=== PATIENT | male | born 1945 | race Caucasian/White ===

== ENCOUNTER 2024-05-29 19:58 | Inpatient (IN) | payer MEDICARE, OTHER, SELFPAY ==
[2024-05-29 20:11] VITALS: PULSE 100
--- NOTE | 2024-05-29 20:13 | ECG_ITS ---
APPROVED REPORT Exam: Resting ECG HR:101 bpm ECG Measurements Heart Rate 101 AXES [place] 180 P 36 QRSd 139 QRS 267 QT 380 T 29 QTc 438 Conclusion SINUS TACHYCARDIA RIGHT AXIS DEVIATION [QRS AXIS > 100] RIGHT BUNDLE BRANCH BLOCK [120+ ms QRS DURATION, UPRIGHT V1, 40+ ms S IN I/aVL/V4/V5/V6] POSSIBLE ANTERIOR MYOCARDIAL INFARCTION , OF INDETERMINATE AGE [30 ms Q WAVE IN V3/V4, OR R < 0.2 mV IN V4] ABNORMAL ECG UNCONFIRMED REPORT Electronically signed by : Jayesh Nagel MD 05/30/2024 15:49:45
[2024-05-29 20:15] VITALS: BP 144/76; PULSE 100; RESP 17; O2SAT 97
[2024-05-29 20:27] VITALS: O2SAT 93
--- NOTE | 2024-05-29 21:01 | P.HP_ITS ---
<Statement entered by Gary Goyal MD - 06/03/24 14:22> I personally examined the patient and agree with the plan of care outlined by the ACQUISITION SPECIALIST. History of Present Illness *Admission Date: 05/29/24 *Reason for visit:: Chest pain while at rest *History of present illness: This is a 78-year-old male who has a past medical history sniffer hypertension, diabetes, and obesity who presents from [facility] due to symptoms consistent with unstable angina. Due to patient's symptoms, he presented to [facility] for evaluation. While at [facility], EKG was consistent with a right bundle branch block, sinus tachycardia, right axis deviation and was without and had some ST segment depression in the lateral leads. Patient's troponin was negative. Interventional cardiology was consulted and recommended transitioning to [facility] for left and right heart cath in the a.m. Due to these recommendations, patient has been admitted for further management. During my evaluation of the patient, patient states that he has been having this shortness of breath that would occur with chest pain while at rest and it was worse with exertion since April. Patient states his symptoms started initially on April 18. He reports having a 15 pound weight gain mostly in his abdomen, and was prescribed diuretics to manage. Patient did have some elevation in his creatinine due to losartan and hydrochlorothiazide and when he was prescribed Lasix he was encouraged to take it for 1 week, but once his creatinine started to elevate they encouraged him to take it every third day or as needed. Patient voices that he has chest pain across his chest and it is reproducible with palpation. He recently underwent provocative workup on Sunday and he is not clear of the results. He was informed that he may had not see a chemical engineering intern, yet he received a a call from the ID stating that he had no abnormalities on ischemic workup and was told he need to join an exercise team. It is worth mentioning that patient was unable to complete the provocative workup in its entirety. Patient also voices having some dizziness and upper extremity arm shaking when he has his shortness of breath. He is currently on a heart monitor. He is currently complaining of on chest pain that is reproducible with palpation. Currently, he is denying any PND, orthopnea, nausea, vomiting, fever, chills, rigors, or diarrhea. CT scan of the chest shows some mediastinal lymph nodes and bilateral nonobstructing renal calculi. [facility] Disclaimer: The information contained in this section may have been updated after the patient was seen, as this information can be updated by other users. Medical History (Updated 05/29/24 @ 21:16 by Ramana Breen APRN) Bilateral cataracts Hypertension CHF (congestive heart failure) Diabetes mellitus Social History Smoking Status: Never smoker alcohol intake: former current occupational status: employed Travel in the last 8 weeks: None household members: family housing: house marital status: Review of Systems Review of Systems Review of systems:: pertinent systems reviewed and negative unless documented below Constitutional Constitutional: Reports system reviewed and no additional complaints, except as documented Eyes Eyes: Reports system reviewed and no additional complaints, except as documented ENT Ears, Nose, Mouth, and Throat: Reports system reviewed and no additional complaints, except as documented *Cardiovascular Cardiovascular: Reports chest pain at rest, Reports chest pain with activity, Reports dyspnea, Reports dyspnea on exertion and Reports edema *Respiratory Respiratory: Reports dyspnea and Reports dyspnea on exertion *Gastrointestinal Gastrointestinal: Reports bloating *Genitourinary Genitourinary: Reports system reviewed and no additional complaints, except as documented *Musculoskeletal Musculoskeletal: Reports system reviewed and no additional complaints, except as documented Integumentary/Breasts Skin/Breast: Reports system reviewed and no additional complaints, except as documented *Neurologic Neurologic: Reports system reviewed and no additional complaints, except as documented Psychiatric Psychiatric: Reports system reviewed and no additional complaints, except as documented Endocrine Endocrine: Reports system reviewed and no additional complaints, except as docum ented Hematologic/Lymphatic Hematologic/Lymphatic: Reports system reviewed and no additional complaints, except as documented Allergic/Immunologic Allergic/Immunologic: Reports system reviewed and no additional complaints, except as documented Meds Home Medications and Allergies Home Medications ?Medication ?Instructions ?Recorded ?Confirmed ?Type amlodipine 2.5 mg tablet (Norvasc) 2.5 mg PO DAILY 05/29/24 05/29/24 History aspirin 81 mg tablet 81 mg PO DAILY 05/29/24 05/29/24 History furosemide 20 mg tablet (Lasix) 20 mg PO DIRECTED 05/29/24 05/29/24 History furosemide 20 mg tablet (Lasix) 20 mg PO DAILY PRN Edema 05/29/24 05/29/24 History gabapentin 600 mg tablet 600 mg PO HS 05/29/24 05/29/24 History losartan 100 mg tablet 100 mg PO DAILY 05/29/24 05/29/24 History magnesium 250 mg tablet 250 mg PO DAILY 05/29/24 05/29/24 History metformin 1,000 mg tablet 1,000 mg PO BID 05/29/24 05/29/24 History vit C 50 mg-E 15 unit-zinc cit 4.5 1 tab PO BID eye health 05/29/24 05/29/24 History mg-lutein 2.5 [facility] New Prescriptions to Start Prescriptions: Allergies Allergy/AdvReac Type Severity Reaction Status Date / Time No Known Allergies Allergy Unverified 04/03/17 14:16 Exam Constitutional Constitutional: no acute distress and obese *Routine HEENT Exam Head: Present normocephalic and atraumatic Eye: Present EOMI, PERRL and normal accommodation ENT: Present mucous membranes moist *Routine Neck Exam Neck: Present supple and full ROM Routine Chest/Breast/Axilla Exam Chest wall: Present tenderness Comments: Holter monitor *Routine Respiratory Exam Respiratory: Present normal respiratory effort, able to speak in complete sentences and symmetric chest movement *Routine Cardiovascular Exam Cardiovascular: Present RRR, Normal S1, Normal S2 and tachycardia *Routine Abdominal Exam Abdominal: Present soft, distended and obese *Routine Rectal Exam Rectal:: deferred *Routine Genitalia Exam Genitalia:: deferred *Routine Extremities Exam Extremities: Present full ROM, pulses intact and normal capillary refill Routine Back/Spine/Pelvis Exam Back/Spine: Present full ROM *Routine Skin Exam Skin: Present intact, dry and warm *Routine Neurological Exam Neurological: Present alert, oriented X3, CN II-XII intact and normal speech Routine Psychiatric Exam Psychiatric: Present normal affect, normal thought process, cooperative, good insight and good judgment H&P: Result Impressions 78-year-old male who has known hypertension and diabetes with several risk factors for acute coronary syndrome who presents with unstable angina. Patient recently underwent provocative workup and was unable to complete. Results are inconclusive from patient's perspective. He was encouraged to join a exercise team. He presents to us in fairly stable condition and will await left heart cath in the a.m. Assessment and Plan *Assessment and plan (1) Unstable angina: Status: Acute Category: Medical Code(s): I20.0 - Unstable angina Plan Assessment: Unstable angina -Consult cardiology -Will make patient n.p.o. after midnight -Obtain records for provocative workup from ID -Will consider nitro for any additional chest discomfort or anginal pain Plan: Admit patient to the stepdown unit on telemetry Up with assistance Saline lock Vital signs every 4 hours Cardiac/1800 ADA diet Obtain CMP, CBC, magnesium, lactic, PT/INR, CEA now CBC/BMP daily Obtain lipid panel in a.m. Will trend troponins every 6 hours 5000 units of heparin subcu 3 times daily 5 mg of [place] p.o. every 4 hours for moderate pain Sliding scale insulin before meals and at bedtime mild scale coverage 2 mg morphine IV push every 2 hours as needed for severe pain 4 mg of Zofran IV push to 8 hours. Nausea from Full code I will discuss this case with attending physician Dr. Goyal and the look for tomorrow put
[2024-05-29 21:44] LABS: Basophils % 0.2 % (0.1-2.0); Hematocrit 44.1 % (42.0-52.0); Lymphocytes # 0.5 K/mm3 (0.7-4.5); Lymphocytes % 8.7 % (10-50); Mean Corpuscular Hemoglobin 30.5 pg (27.0-31.2); Mean Corpuscular Volume 89.6 fl (80-94); Mean Platelet Volume 10.7 fl (7.4-10.4); Monocytes % 0.7 % (1.7-9.3); Platelet Count 215 K/mm3 (142-424); Red Blood Count 4.92 M/mm3 (4.60-6.20); Red Cell Distribution Width 14.9 % (11.5-17.5); White Blood Count 5.5 K/mm3 (4.8-10.8)
[2024-05-29 21:48] LABS: Albumin Level 4.5 g/dl (3.5-5.0); Chloride 103 mmol/L (98-107); Sodium 140 mmol/L (136-145)
[2024-05-29 21:51] LABS: Alanine Aminotransferase 29 U/L (12-78); Albumin/Globulin Ratio 1.9 (1.1-1.8); Alkaline Phosphatase 68 U/L (38-126); Aspartate Amino Transferase 35 U/L (17-59); Bilirubin,Total 1.4 mg/dl (0.2-1.3); Blood Urea Nitrogen 17 mg/dl (9-20); Calcium 9.3 mg/dl (8.4-10.2); Carbon Dioxide 24 mmol/L (22.0-30.0); Estimated Glomerular Filt Rate 53 ml/min (>60); GFR (African American) 64 ML/MIN (>60); Globulin 2.4 g/dL (1.3-3.2); Glucose 196 mg/dl (74-100); Total Protein,Serum 6.9 g/dl (6.3-8.2)
[2024-05-29 21:52] LABS: Lactic Acid 1.5 mmol/L (0.7-2.1); Magnesium 1.6 mg/dl (1.6-2.3)
[2024-05-29 21:53] VITALS: BMI 30.4
[2024-05-29 21:54] LABS: MANUAL DIFFERENTIAL MANUAL DIFFERENTIAL (MANUAL DIFF)
[2024-05-29 21:56] LABS: Creatinine Clearance Estimated 63 mL/min (50-200)
[2024-05-29 21:59] LABS: INR 0.99 (0.9-1.1); Prothrombin Time 10.9 seconds (9.2-12.1)
[2024-05-29 22:00] VITALS: BP 126/77; PULSE 106; RESP 20; O2SAT 92
[2024-05-29 22:20] LABS: Lymphocytes % 11 % (10-50); Neutrophils % 88 % (42-76); RBC Morphology Normal; Total Cells Counted 100
[2024-05-29 22:21] LABS: Platelet Estimate Normal
[2024-05-29] MEDS: humaLOG 100 UNITS/ML 10ML VIAL (SSI) SUBCUT (22:26)
[2024-05-29] MEDS: GABAPENTIN 600MG TABLET 600 MG PO (22:27)
[2024-05-29] MEDS: HEPARIN SODIUM 5,000 UNIT/ML VIAL 5000 UNIT SUBCUT (22:27)
[2024-05-30] VITALS (26 sets, daily range): BP systolic 109–131; BP diastolic 46–75; PULSE 81–110; RESP 14–22; TEMP 36.4–36.7; O2SAT 85–100; BMI 30.1
[2024-05-30 00:49] LABS: Troponin I < 0.01 ng/ml (0.00-0.034)
--- NOTE | 2024-05-30 00:50 | PC.NURSE ---
Pt states they wear a CPAP at home while sleeping. Pt does not have CPAP with him and does not want to wear ours tonight. Pt noted to drop to 85 while asleep. Pt placed on 2 L nc. Pt to ask family to bring cpap if here tomorrow night.
[2024-05-30] MEDS: humaLOG 100 UNITS/ML 10ML VIAL (SSI) SUBCUT (06:25)
[2024-05-30 06:30] LABS: POC Glucose,Bedside 204 (70-110)
--- NOTE | 2024-05-30 06:34 | PC.NURSE ---
Pt A/O x4. Pt has not voiced any complaints to staff throughout shift. Pt remained on 2L nc while asleep, tolerating well with sat >90%. Lungs sounds clear, diminished. NSR on telemetry. Abdomen round, soft, non-tender. BM sounds active x4. Pt able to use urinal independently. Pt voided total of 750ml throughout shift. Urine clear and light yellow. Pt has been NPO since midnight. Call light within reach.
[2024-05-30 07:04] LABS: Basophils % 0.2 % (0.1-2.0); Hematocrit 40.8 % (42.0-52.0); Hemoglobin 13.5 g/dL (14.1-18.0); Lymphocytes # 0.7 K/mm3 (0.7-4.5); Lymphocytes % 11.9 % (10-50); Mean Corpuscular HGB Conc 33.1 g/dL (31.8-35.4); Mean Corpuscular Hemoglobin 29.6 pg (27.0-31.2); Mean Corpuscular Volume 89.5 fl (80-94); Mean Platelet Volume 11.7 fl (7.4-10.4); Monocytes # 0.1 K/mm3 (0.1-1.0); Monocytes % 2.4 % (1.7-9.3); Neutrophils % 85.2 % (37.0-80.0); Platelet Count 183 K/mm3 (142-424); Red Blood Count 4.56 M/mm3 (4.60-6.20); Red Cell Distribution Width 14.6 % (11.5-17.5); White Blood Count 5.9 K/mm3 (4.8-10.8)
[2024-05-30 07:49] LABS: Chloride 105 mmol/L (98-107); Potassium 4.4 mmoL/L (3.5-5.1); Sodium 137 mmol/L (136-145)
[2024-05-30 07:52] LABS: Anion Gap 11.4 mEq/L (5-15); Blood Urea Nitrogen 21 mg/dl (9-20); Calcium 9.1 mg/dl (8.4-10.2); Carbon Dioxide 25 mmol/L (22.0-30.0); Chol/HDL Ratio 3.1 (1-3.5); Cholesterol 148 mg/dl (140-200); Creatinine Clearance Estimated 63 mL/min (50-200); Estimated Glomerular Filt Rate 53 ml/min (>60); GFR (African American) 64 ML/MIN (>60); Glucose 206 mg/dl (74-100); HDL Cholesterol 47 mg/dl (40-60); Triglycerides 58 mg/dl (30-150); VLDL Cholesterol 12 mg/dL (0-40)
[2024-05-30 08:03] LABS: Direct LDL Cholesterol 74.51 mg/dL (100-129)
[2024-05-30 08:10] LABS: Troponin I < 0.01 ng/ml (0.00-0.034)
--- NOTE | 2024-05-30 08:23 | IR_ITS ---
APPROVED REPORT Patient Location: Inpatient Furnace Repair Mechanic: Syed Johansen, RT (R) PROCEDURES Right heart catheterization Left heart catheterization Left ventriculogram Selective coronary angiogram Intravascular ultrasound to the proximal LAD Drug-eluting stent deployment to the proximal LAD INDICATION Coronary artery disease, Unstable angina, Angiographic ambiguity in the proximal LAD, Pulmonary hypertension Informed consent was obtained prior to the procedure. COMPLICATIONS None Estimated Blood Loss: Less than 10 mls TECHNIQUE One percent lidocaine used to anesthetize the right anterior aspect of the wrist. The right radial artery was accessed via the Seldinger technique. A 6 Armenian sheath was placed in the right radial artery. 2.5 mg of Verapamil, 800 mcg of nitroglycerin, 1mg Lidocaine and 5000 U Heparin were given through the arterial sheath. The 6 Armenian JL 3 guide catheter catheter was also used to perform left heart catheterization, left ventriculogram and selective coronary angiogram. At the end of the diagnostic angiogram therapeutic heparin was administered giving a therapeutic ACT and the guide catheters placed in the left main artery with wire down the LAD. There was angiographic ambiguity therefore intravascular ultrasound probe was advanced which demonstrated severe and heavy plaque in the proximal LAD creating an MLA of 2.6 mm???. Because of this a 3 mm x 18 mm José Manuel frontier stent was deployed at 20 erwin in the proximal LAD reducing the stenosis to 0%. JAYDA-3 flow was present before and after the procedure. Following this One percent lidocaine was used to anesthetize the right anterior aspect of the neck. A event decorator and designer needle was used to identify the right internal jugular vein. Following this a larger cannulation needle was used to cannulate the right internal jugular vein and a wire was passed into the vein. Prior to the 7 Armenian sheath being inserted the wire was confirmed under fluoroscopic guidance to be in the inferior vena cava. A 7 Armenian sheath was introduced and a [place]-Nga catheter was floated using hemodynamic waveforms in the pulmonary artery, right ventricle , and right atrium. Saturations were obtained in the pulmonary artery and the right atrium. At the end of the procedure the patient was transferred to the postop holding area in stable condition for sheath removal. ANGIOGRAPHIC RESULTS The left main artery Normal The left anterior descending artery Has proximal concentric 90% stenosis by IVUS criteria The circumflex artery Nondominant with diffuse 10 to 20% luminal regularities The right coronary artery Dominant normal The KERR ventriculogram reveals Normal 65% The left ventricular end-diastolic pressure 15 mmHg Right atrial pressure 5 mmHg Pulmonary artery pressure 42/15 mmHg Pulmonary occlusion pressure 15 mmHg Right atrial saturation 81% Pulmonary saturation 81% Aortic saturation 94% Hemoglobin hemoglobin 15 Cardiac output cardiac output 10 L/min Cardiac index 4.7 IMPRESSION Severe disease in the proximal LAD with successful stenting reducing lesion to 0% with 1 drug-eluting stent moderate pulmonary hypertension Normal ejection fraction Moderate pulmonary hypertension PLAN 1. Plavix and aspirin 2. Start patient on diuretics 3. Recommend pulmonology consultation 4. LDL less than 55 to achieve that high intensity statin 5. I am not entirely convinced this is the proximal LAD lesion was etiology for patient's symptoms. This does not explain the moderate pulmonary hypertension 6. Recommend sleep study and further workup per pulmonology Electronically signed by : Norberto Wray MD 05/30/2024 11:14:20
--- NOTE | 2024-05-30 08:35 | HMH.PHAINT1 ---
Pharmacy Intervention Comments: VERIFIED HOME MEDICATION LIST [facility]
[2024-05-30] MEDS: HEPARIN SODIUM 5,000 UNIT/ML VIAL 5000 UNIT SUBCUT ×2 (09:03→13:33)
[2024-05-30] MEDS: ASPIRIN EC 81MG TABLET 81 MG PO (09:03)
[2024-05-30 09:10] LABS: Hemoglobin A1C 6.4 % (4.0-6.0)
[2024-05-30 09:14] LABS: Thyroid Stimulating Hormone 0.69 uIU/mL (0.465-4.68)
--- NOTE | 2024-05-30 09:22 | EXP.CARD.CON ---
History of Present Illness History of Present Illness Consult date: 05/30/24 Requesting physician: Ramana Breen Consult reason: shortness of breath Chief complaint: weakness and SOA History of present illness: 78-year-old white male without known cardiovascular disease transferred to this facility from [facility] for heart cath. Patient's daughter is a nurse and is bedside and assists with history. Patient typically very active and able to work 10 or 12 hours/day without symptoms. He was diagnosed with diabetes but quickly was able to control his A1c from 10 down to 6. He takes losartan for renal protection but states blood pressure has typically been well-controlled. On April 16 he woke up extremely fatigued and now struggles to walk 10 or 20 feet without shortness of breath and fatigue. He has had some mild lower extremity edema, dizziness, blurry vision, blood pressure variability. He tried seeing his physician at the OR but states they just been ordering tests and have not seen him for evaluation. He did have a stress test which is available in his chart for review that shows probably normal stress test . An echo has not been completed. Patient denies any recent trauma or acute illness prior to symptom onset. Yesterday his symptoms worsened and he called PCP who advised to present to the emergency room. On arrival to ER in [facility] symptoms were felt consistent with unstable angina so Dr. Wray was called and agreed to accept patient in transfer for left and right heart cath. proBNP, troponin, D-dimer all within normal limits. EKG shows RBBB. CT chest abdomen pelvis with finding of mediastinal lymphadenopathy but no identified masses. The largest lymph nodes are 3.9 x 2.3 and 2 x 2.6 right paratracheal region. [facility] Disclaimer: The information contained in this section may have been updated after the patient was seen, as this information can be updated by other users. Medical History Bilateral cataracts Hypertension CHF (congestive heart failure) Diabetes mellitus Social History Smoking Status: Never smoker alcohol intake: former current occupational status: employed Travel in the last 8 weeks: None household members: family housing: house marital status: Have you lived/traveled outside [place] in past 30 days?: No Contact w/someone who lives/traveled outside US past 30 days?: No Exposure to someone with infectious disease in past 14 days?: No Do you have a fever (greater than 100.4 F or 38 C)?: No Have you tested positive for COVID-19: No Exposed to someone with COVID-19 in past 14 days?: No Do you have a sore throat?: No Do you have a cough?: No Do you have any weakness?: No Are you experiencing any nausea/vomitting?: No Do you have any diarrhea?: No Are you experiencing any unusual bleeding?: No Do you have any muscle aches/pain?: No Do you have any abdominal pain?: No Are you experiencing loss of taste or smell?: No Review of Systems Constitutional Constitutional: Reports fatigue, Denies fever(s), Reports lethargy, Reports malaise and Reports weakness Eyes Eyes: Reports blurry vision and Denies loss of vision ENT Ears, Nose, Mouth, and Throat: Denies hearing loss *Cardiovascular Cardiovascular: Denies chest pain, Reports dyspnea and Reports leg edema *Respiratory Respiratory: Denies cough and Reports dyspnea *Gastrointestinal Gastrointestinal: Denies change in stool character, Denies nausea and Denies vomiting *Genitourinary Genitourinary: Denies difficulty urinating *Musculoskeletal Musculoskeletal: Denies muscle weakness Integumentary/Breasts Skin/Breast: Denies changing lesions *Neurologic Neurologic: Reports system reviewed and no additional complaints, except as documented, Denies loss of vision and Reports weakness Endocrine Endocrine: Reports fatigue Exam Data for Last 24 hours Vital signs and Labs for Last 24 Hours: Temp Pulse Resp BP Pulse Ox O2 Del Method O2 Flow Rate 97.6 F 100 H 18 128/75 93 L Room Air 2 05/30/24 08:39 05/30/24 08:39 05/30/24 08:39 05/30/24 08:39 05/30/24 08:39 05/30/24 08:39 05/30/24 06:28 Laboratory Results - last 24 hr 05/29/24 21:34: WBC 5.5, RBC 4.92, Hgb 15.0, Hct 44.1, MCV 89.6, MCH 30.5, MCHC 34.0, RDW 14.9, Plt Count 215, MPV 10.7 H, Neut % (Auto) 90.0 H, Lymph % (Auto) 8.7 L, Saunders % (Auto) 0.7 L, Eos % (Auto) 0.0 L, Baso % (Auto) 0.2, Neut # (Auto) 5.0, Lymph # (Auto) 0.5 L, Saunders # (Auto) 0.0 L, Eos # (Auto) 0.0, Baso # (Auto) 0.0, Total Counted 100, Neutrophils % (Manual) 88 H, Band Neutrophils % 1.0, Lymphocytes % (Manual) 11, Platelet Estimate Normal, RBC Morphology Normal, PT 10.9, INR 0.99, Sodium 140, Potassium 4.0, Chloride 103, Carbon Dioxide 24, Anion Gap 17.0 H, BUN 17, Creatinine 1.30 H, Estimated Creat Clear 63, Estimated GFR 53 L, Est GFR ( Amer) 64, Glucose 196 H, Lactate 1.5, Calcium 9.3, Magnesium 1.6, Total Bilirubin 1.4 H, AST 35, ALT 29, Alkaline Phosphatase 68, Total Protein 6.9, Albumin 4.5, Globulin 2.4, Albumin/Globulin Ratio 1.9 H 05/30/24 00:03: Troponin I < 0.01 05/30/24 05:51: WBC 5.9, RBC 4.56 L, Hgb 13.5 L, Hct 40.8 L, MCV 89.5, MCH 29.6, MCHC 33.1, RDW 14.6, Plt Count 183, MPV 11.7 H, Neut % (Auto) 85.2 H, Lymph % (Auto) 11.9, Saunders % (Auto) 2.4, Eos % (Auto) 0.0 L, Baso % (Auto) 0.2, Neut # (Auto) 5.0, Lymph # (Auto) 0.7, Saunders # (Auto) 0.1, Eos # (Auto) 0.0, Baso # (Auto) 0.0, Sodium 137, Potassium 4.4, Chloride 105, Carbon Dioxide 25, Anion Gap 11.4, BUN 21 H, Creatinine 1.30 H, Estimated Creat Clear 63, Estimated GFR 53 L, Est GFR ( Amer) 64, Glucose 206 H, Hemoglobin A1c 6.4 H, Calcium 9.1, Troponin I < 0.01, Triglycerides 58, Cholesterol 148, LDL Cholesterol Direct 74.51 L, VLDL Cholesterol 12, HDL Cholesterol 47, Cholesterol/HDL Ratio 3.1 05/30/24 06:21: POC Glucose 204 H I & O for Last 24 hours: Intake & Output 05/27/24 05/28/24 05/29/24 05/30/24 23:59 23:59 23:59 23:59 Output Total 300 / 300 450 / 450 Balance -300 / -300 -450 / -450 Weight 212 lb 8 oz Constitutional Constitutional: no acute distress and cooperative *Routine HEENT Exam Eye: Present PERRL *Routine Respiratory Exam Respiratory: Present CTA bilaterally; Absent accessory muscle use, wheezes or crackles *Routine Cardiovascular Exam Cardiovascular: Present RRR, Normal S1 and Normal S2; Absent murmur, gallop or rubs *Routine Abdominal Exam Abdominal: Present soft; Absent tenderness Comments: mildly distended *Routine Extremities Exam Extremities: Present pulses intact; Absent cyanosis or edema *Routine Skin Exam Skin: Present intact; Absent erythema or wounds *Routine Neurological Exam Neurological: Present alert and oriented X3 Routine Psychiatric Exam Psychiatric: Present cooperative Meds Home Medications and Allergies Home Medications ?Medication ?Instructions ?Recorded ?Confirmed ?Type amlodipine 2.5 mg tablet (Norvasc) 2.5 mg PO DAILY 05/29/24 05/29/24 History aspirin 81 mg tablet 81 mg PO DAILY 05/29/24 05/29/24 History furosemide 20 mg tablet (Lasix) 20 mg PO DIRECTED 05/29/24 05/30/24 History furosemide 20 mg tablet (Lasix) 20 mg PO DAILY PRN Edema 05/29/24 05/30/24 History gabapentin 600 mg tablet 600 mg PO HS 05/29/24 05/29/24 History losartan 100 mg tablet 100 mg PO DAILY 05/29/24 05/29/24 History metformin 1,000 mg tablet 1,000 mg PO BID 05/29/24 05/29/24 History pioglitazone 30 mg tablet (Actos) 30 mg PO DAILY 05/29/24 05/30/24 History vit C 50 mg-E 15 unit-zinc cit 4.5 1 tab PO BID eye health 05/29/24 05/29/24 History mg-lutein 2.5 mg-zeaxan chew tablet ([facility]) cholecalciferol (vitamin D3) 25 100 mcg PO DAILY 05/30/24 05/30/24 History mcg (1,000 unit) tablet (Vitamin D3) cyanocobalamin (vitamin B-12) 1,000 mcg PO DAILY 05/30/24 05/30/24 History 1,000 mcg tablet (Vitamin B-12) fluticasone propionate 50 2 spray intranasal DAILY 05/30/24 05/30/24 History mcg/actuation nasal spray,suspension gabapentin 300 mg capsule 300 mg PO 09,12 05/30/24 05/30/24 History lidocaine 5 % topical patch 2 patch topical DAILY PRN Pain 05/30/24 05/30/24 History (Scale Score 4-6) loratadine 10 mg tablet 10 mg PO DAILY 05/30/24 05/30/24 History magnesium oxide 420 mg tablet 420 mg PO BID 05/30/24 05/30/24 History mirtazapine 15 mg tablet (Remeron) 7.5 mg PO HS 05/30/24 05/30/24 History prazosin 1 mg capsule 1 mg PO HS 05/30/24 05/30/24 History prazosin 5 mg capsule 5 mg PO HS 05/30/24 05/30/24 History sertraline 100 mg tablet 150 mg PO DAILY 05/30/24 05/30/24 History New Prescriptions to Start Prescriptions: Allergies Allergy/AdvReac Type Severity Reaction Status Date / Time No Known Allergies Allergy Unverified 04/03/17 14:16 Assessment and Plan *Assessment and plan (1) Unstable angina: Status: Acute Category: Medical Code(s): I20.0 - Unstable angina (2) Fatigue: Status: Acute Category: Medical Code(s): R53.83 - Other fatigue Plan Unstable Angina - atypical presentation but given his risk factors including age, BP DM, family history and the severity and chronicity of symptoms, a RHC and LHC seem prudent to r/o CV etiology of symptoms - discussed frankly with patient and they would both like to proceed with LHC/RHC/ECHO - cont ASA, Heparin, Atorvastatin Mediastinal Lymphadenopathy - 3.9x2.3 and 2x2.6 lymph nodes with no mass noted on CT - consider biopsy or further workup Fatigue/SALAZAR/Blurry Vision/Dizziness - profound change in exertional capacity on Apr 16 - RHC/LHC/ECHO today to assess CV etiology - Broad differential - Check MRI brain with and without, ESR, CRP, Lyme titer, vitamin B12, iron panel, thyroid panel, carotid duplex, MuSK antibodies, urine cortisol
--- NOTE | 2024-05-30 09:39 | CA_ITS ---
APPROVED REPORT EXAM: Comprehensive 2D, Doppler, and color-flow Echocardiogram Side Gluer: Frida Tanner RT(R) Ht: 5 ft 10 in Wt: 212lbs BSA: 2.14 BP: 115/60 mmHg Indications: angina, CHF, fatigue, CP, edema, HTN, DM, SALAZAR, Abn EKG, RBBB, right and left heart cath today with stent placed in LAD M-Mode Dimensions RVDd 3.19 cm (0.9-2.6) LA Diam 3.44 cm (1.9-4.0) LVDd 5.49 cm (3.5-5.7) LVDs 3.94 cm (3.5-5.7) IVSd 1.08 cm (0.6-1.1) PWd 1.17 cm (0.6-1.1) EF (Teich) 54.00% FS 28.20% EDV (Teich) 146.80 mL ESV (Teich) 67.50 mL LV Diastology E Decel Time 193 (160-240 msec) E/A Ratio 0.9 Mitral Valve MV E Max Alirio. 95.0 (40-130 cm/s) MV A Velocity 103.0 (40-130 cm/s) E/A Ratio 0.92 MV PHT 57.0 ms Left Ventricle The left ventricle is normal size. The left ventricular systolic function is normal. The left ventricular ejection fraction is within the normal range. There is increased LV wall thickness. There is normal LV segmental wall motion. Transmitral Doppler flow pattern suggests impaired LV relaxation. LVEF is 55%. Right Ventricle The right ventricle is normal size. The right ventricular systolic function is normal. Atria The left atrium size is normal. The right atrium size is normal. There is no Doppler evidence of interatrial shunt. Aortic Valve The aortic valve is mildly thickened. There is no aortic valvular stenosis. No aortic regurgitation is present. Mitral Valve The mitral valve is normal in structure. No evidence of mitral valve stenosis. Trace mitral regurgitation. Tricuspid Valve The tricuspid valve leaflets are thin and pliable. Trace tricuspid regurgitation. There is insufficient TR jet to estimate RVSP. Pulmonic Valve The pulmonary valve is normal in structure. Trace pulmonic regurgitation. Great Vessels The aortic root is normal in size. IVC is normal in size and collapses >50% with inspiration. Pericardium There is no pericardial effusion. Other Information Study Quality: Fair Conclusion Normal biventricular systolic function. No significant valvular stenosis or regurgitation. Electronically signed by : Nany Leo MD 05/30/2024 21:23:09
--- NOTE | 2024-05-30 09:47 | CA_ITS ---
FINAL REPORT CLINICAL HISTORY: unstable angina, dizziness, gait disturbance, fatigue, CAD, right and left heart cath today with bandage on right side of neck, limiting scan on right side. HTN, HLD, DM, SALAZAR, RBBB, CHF. FINDINGS: RIGHT CAROTID: CCA PSV -57 cm/sec ICA PSV -63 cm/sec ICA/CCA PSV ratio -1.1. Comments: Mild plaque disease is noted. LEFTCAROTID: CCA PSV -100. cm/sec ICA PSV -82. cm/sec ICA/CCA PSV ratio -1.0. Comments: Mild plaque disease is noted. Antegrade flow is seen within the vertebral arteries. IMPRESSION: Carotid stenosis classified less than 50% Reviewed, Interpreted and Dictated by Osmani Jane MD Transcribed by Kimberlyn Cisneros Authenticated and [facility]
--- NOTE | 2024-05-30 10:19 | PC.NURSE ---
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
[2024-05-30] MEDS: HEPARIN 1,000 UNITS/500ML NS (CATH LAB) 3000 UNIT IV (10:24)
[2024-05-30] MEDS: LIDOCAINE 1% 10ML MDV 20 ML IJ (10:24)
[2024-05-30] MEDS: VERAPAMIL 2.5MG/ML 2ML VIAL 2.5 MG IV (10:24)
[2024-05-30] MEDS: HEPARIN 1,000 UNITS/ML 10ML VIAL (CATH LAB) 10000 UNIT IV (10:24)
[2024-05-30] MEDS: diphenhydrAMINE 50MG/ML VIAL 50 MG IV (10:24)
[2024-05-30] MEDS: 0.9 % SODIUM CHLORIDE 500 ML 25 ML IV (10:25)
[2024-05-30 10:49] LABS: Iron 79 ug/dL (49-181)
[2024-05-30 10:56] LABS: Erythrocyte Sedimentation Rate 11 mm/hr (0-20)
[2024-05-30 10:59] LABS: Total Iron Binding Capacity 334 ug/dL (261-462)
[2024-05-30 11:06] LABS: C-Reactive Protein 0.9 mg/L (0-4)
[2024-05-30] MEDS: MIDAZOLAM HCL 1MG/ML 5ML VIAL 1 MG IV (11:06)
[2024-05-30] MEDS: FENTANYL 100MCG/2ML VIAL 50 MCG IV (11:06)
[2024-05-30] MEDS: CLOPIDOGREL 300MG TABLET 600 MG PO (11:18)
[2024-05-30 11:22] LABS: Thyroid Stimulating Hormone 0.96 uIU/mL (0.465-4.68)
[2024-05-30] MEDS: IOPAMIDOL-370 (76%);100ML BOTTLE 110 ML IV (11:27)
[2024-05-30 11:29] LABS: CATHL Activated Clotting Time 395 SEC (74-125)
--- NOTE | 2024-05-30 11:44 | PC.NURSE ---
pt arrived back to ICU from labor delivery rn @[phone]
[2024-05-30 11:56] LABS: POC Glucose,Bedside 119 (70-110)
[2024-05-30 12:22] LABS: Vitamin B12 789 pg/mL (239-931)
[2024-05-30 13:14] LABS: NT Pro Brain Natriuretic Pep. 449 pg/mL (0-450)
--- NOTE | 2024-05-30 13:24 | PC.NURSE ---
DR LEVINE STATED TO MOVE PT FROM STEPDOWN TO MED SURG.
--- NOTE | 2024-05-30 13:26 | PC.NURSE ---
ADMISSIONS AWARE OF STATUS CHANGE FROM STEPDOWN TO MED SURG
--- NOTE | 2024-05-30 13:31 | PC.NURSE ---
CALLED MIMI MCMANUS TO ASK ABOUT MRI AND SEE IF ITS OK WITH HIM HAVING A CORONARY STENT PLACED TODAY. WAITING ON RESPONSE.
[2024-05-30] MEDS: BUMETANIDE 1MG/4ML VIAL 2 MG IV (13:33)
--- NOTE | 2024-05-30 14:19 | PC.NURSE ---
MIMI MCMANUS STATED TO GO AHEAD WITH MRI. MRI AWARE.
--- NOTE | 2024-05-30 14:36 | PC.NURSE ---
PER MIMI MCMANUS HOLD ON MRI. WILL RESCHEDULE AT A LATER DATE. MRI AWARE.
--- NOTE | 2024-05-30 16:05 | PC.NURSE ---
DR LEVINE AT BEDSIDE
--- NOTE | 2024-05-30 16:28 | P.DS_ITS ---
General Admission date:: 05/29/24 HPI HPI HPI: This is a 78-year-old male who has a past medical history sniffer hypertension, diabetes, and obesity who presents from [facility] due to symptoms consistent with unstable angina. Due to patient's symptoms, he presented to [facility] for evaluation. While at [facility], EKG was consistent with a right bundle branch block, sinus tachycardia, right axis deviation and was without and had some ST segment depression in the lateral leads. Patient's troponin was negative. Interventional cardiology was consulted and recommended transitioning to [facility] for left and right heart cath in the a.m. Due to these recommendations, patient has been admitted for further management. During my evaluation of the patient, patient states that he has been having this shortness of breath that would occur with chest pain while at rest and it was worse with exertion since April. Patient states his symptoms started initially on April 18. He reports having a 15 pound weight gain mostly in his abdomen, and was prescribed diuretics to manage. Patient did have some elevation in his creatinine due to losartan and hydrochlorothiazide and when he was prescribed Lasix he was encouraged to take it for 1 week, but once his creatinine started to elevate they encouraged him to take it every third day or as needed. Patient voices that he has chest pain across his chest and it is reproducible with palpation. He recently underwent provocative workup on Sunday and he is not clear of the results. He was informed that he may had not see a hse coordinator, yet he received a a call from the [place] stating that he had no abnormalities on ischemic workup and was told he need to join an exercise team. It is worth mentioning that patient was unable to complete the provocative workup in its entirety. Patient also voices having some dizziness and upper extremity arm shaking when he has his shortness of breath. He is currently on a heart monitor. He is currently complaining of on chest pain that is reproducible with palpation. Currently, he is denying any PND, orthopnea, nausea, vomiting, fever, chills, rigors, or diarrhea. CT scan of the chest shows some mediastinal lymph nodes and bilateral nonobstructing renal calculi. Hospital Course Hospital Course Hospital Course: Adelso Mishra is a 78-year-old male who presented as a transfer from [facility] with chest pain and was admitted for unstable angina. #Unstable angina ? Cardiology consulted, s/p 1 stent to the LAD. ? Aspirin 81 mg, Plavix 75 mg, atorvastatin 80 mg. ? A1c 6.4, LDL 74, TSH normal. ? Echo shows normal biventricular function. ? Symptoms improved after stent. Will follow-up with cardiology within 1 week. #Sleep apnea #Pulmonary hypertension #Mediastinal lymph nodes ? Continue CPAP at home. ? 3.9x2.3 and 2x2.6 lymph nodes with no mass noted on CT ? Follow-up with pulmonology. #Type 2 diabetes ? A1c 6.4. Resume home regimen. Exam Data for Last 24 hours Vital signs and Labs for Last 24 Hours: Temp Pulse Resp BP Pulse Ox O2 Del Method O2 Flow Rate 97.7 F 90 18 126/68 96 Room Air 2 05/30/24 11:40 05/30/24 16:00 05/30/24 15:25 05/30/24 15:25 05/30/24 15:25 05/30/24 15:25 05/30/24 06:28 Laboratory Results - last 24 hr 05/29/24 21:34: WBC 5.5, RBC 4.92, Hgb 15.0, Hct 44.1, MCV 89.6, MCH 30.5, MCHC 34.0, RDW 14.9, Plt Count 215, MPV 10.7 H, Neut % (Auto) 90.0 H, Lymph % (Auto) 8.7 L, [place] % (Auto) 0.7 L, Eos % (Auto) 0.0 L, Baso % (Auto) 0.2, Neut # (Auto) 5.0, Lymph # (Auto) 0.5 L, [place] # (Auto) 0.0 L, Eos # (Auto) 0.0, Baso # (Auto) 0.0, Total Counted 100, Neutrophils % (Manual) 88 H, Band Neutrophils % 1.0, Lymphocytes % (Manual) 11, Platelet Estimate Normal, RBC Morphology Normal, PT 10.9, INR 0.99, Sodium 140, Potassium 4.0, Chloride 103, Carbon Dioxide 24, Anion Gap 17.0 H, BUN 17, Creatinine 1.30 H, Estimated Creat Clear 63, Estimated GFR 53 L, Est GFR ( Amer) 64, Glucose 196 H, Lactate 1.5, Calcium 9.3, Magnesium 1.6, Total Bilirubin 1.4 H, AST 35, ALT 29, Alkaline Phosphatase 68, Total Protein 6.9, Albumin 4.5, Globulin 2.4, Albumin/Globulin Ratio 1.9 H 05/30/24 00:03: Troponin I < 0.01 05/30/24 05:51: WBC 5.9, RBC 4.56 L, Hgb 13.5 L, Hct 40.8 L, MCV 89.5, MCH 29.6, MCHC 33.1, RDW 14.6, Plt Count 183, MPV 11.7 H, Neut % (Auto) 85.2 H, Lymph % (Auto) 11.9, [place] % (Auto) 2.4, Eos % (Auto) 0.0 L, Baso % (Auto) 0.2, Neut # (Auto) 5.0, Lymph # (Auto) 0.7, [place] # (Auto) 0.1, Eos # (Auto) 0.0, Baso # (Auto) 0.0, Sodium 137, Potassium 4.4, Chloride 105, Carbon Dioxide 25, Anion Gap 11.4, BUN 21 H, Creatinine 1.30 H, Estimated Creat Clear 63, Estimated GFR 53 L, Est GFR ( Amer) 64, Glucose 206 H, Hemoglobin A1c 6.4 H, Calcium 9.1, Troponin I < 0.01, Triglycerides 58, Cholesterol 148, LDL Cholesterol Direct 74.51 L, VLDL Cholesterol 12, HDL Cholesterol 47, Cholesterol/HDL Ratio 3.1, TSH 0.69 05/30/24 06:21: POC Glucose 204 H 05/30/24 10:08: ESR 11, Iron 79, TIBC 334, Iron Saturation 23.70418, C-Reactive Protein 0.9, NT-Pro-B Natriuret Pep 449, Vitamin B12 789, 25-OH Vitamin D Total 42.0, TSH 0.96 D 05/30/24 11:42: POC Glucose 119 H 05/30/24 11:56: Activated Clotting Time 395 H* I & O for Last 24 hours: Intake & Output 05/27/24 05/28/24 05/29/24 05/30/24 23:59 23:59 23:59 23:59 Intake Total 540 / 540 Output Total 300 / 300 1999 Balance -300 / -300 -1460 / -1460 Weight 96.388 kg 95.5 kg Constitutional Constitutional: no acute distress and obese *Routine HEENT Exam Head: Present normocephalic Eye: Present EOMI and PERRL ENT: Present mucous membranes moist *Routine Neck Exam Neck: Present supple; Absent lymphadenopathy *Routine Respiratory Exam Respiratory: Present CTA bilaterally *Routine Cardiovascular Exam Cardiovascular: Present RRR *Routine Abdominal Exam Abdominal: Present soft and normoactive bowel sounds; Absent tenderness *Routine Extremities Exam Extremities: Absent cyanosis, clubbing or edema *Routine Skin Exam Skin: Present warm; Absent rash *Routine Neurological Exam Neurological: Present alert and oriented X3 Results Data Completed and Pending Labs on day of discharge: Labs from last 24 hours 05/30/24 05/30/24 05/30/24 11:56 11:42 10:08 WBC RBC Hgb Hct MCV MCH MCHC RDW Plt Count MPV Neut % (Auto) Lymph % (Auto) [place] % (Auto) Eos % (Auto) Baso % (Auto) Neut # (Auto) Lymph # (Auto) [place] # (Auto) Eos # (Auto) Baso # (Auto) Total Counted Neutrophils % (Manual) Band Neutrophils % Lymphocytes % (Manual) Platelet Estimate RBC Morphology ESR 11 PT INR Activated Clotting Time 395 H* Sodium Potassium Chloride Carbon Dioxide Anion Gap BUN Creatinine Estimated Creat Clear Estimated GFR Est GFR ( Amer) Glucose POC Glucose 119 H Hemoglobin A1c Lactate Calcium Magnesium Iron 79 TIBC 334 Iron Saturation 23.88059 Total Bilirubin AST ALT Alkaline Phosphatase Troponin I C-Reactive Protein 0.9 NT-Pro-B Natriuret Pep 449 Total Protein Albumin Globulin Albumin/Globulin Ratio Triglycerides Cholesterol LDL Cholesterol Direct VLDL Cholesterol HDL Cholesterol Cholesterol/HDL Ratio Vitamin B12 789 25-OH Vitamin D Total 42.0 TSH 0.96 D 05/30/24 05/30/24 05/30/24 06:21 05:51 00:03 WBC 5.9 RBC 4.56 L Hgb 13.5 L Hct 40.8 L MCV 89.5 MCH 29.6 MCHC 33.1 RDW 14.6 Plt Count 183 MPV 11.7 H Neut % (Auto) 85.2 H Lymph % (Auto) 11.9 [place] % (Auto) 2.4 Eos % (Auto) 0.0 L Baso % (Auto) 0.2 Neut # (Auto) 5.0 Lymph # (Auto) 0.7 [place] # (Auto) 0.1 Eos # (Auto) 0.0 Baso # (Auto) 0.0 Total Counted Neutrophils % (Manual) Band Neutrophils % Lymphocytes % (Manual) Platelet Estimate RBC Morphology ESR PT INR Activated Clotting Time Sodium 137 Potassium 4.4 Chloride 105 Carbon Dioxide 25 Anion Gap 11.4 BUN 21 H Creatinine 1.30 H Estimated Creat Clear 63 Estimated GFR 53 L Est GFR ( Amer) 64 Glucose 206 H POC Glucose 204 H Hemoglobin A1c 6.4 H Lactate Calcium 9.1 Magnesium Iron TIBC Iron Saturation Total Bilirubin AST ALT Alkaline Phosphatase Troponin I < 0.01 < 0.01 C-Reactive Protein NT-Pro-B Natriuret Pep Total Protein Albumin Globulin Albumin/Globulin Ratio Triglycerides 58 Cholesterol 148 LDL Cholesterol Direct 74.51 L VLDL Cholesterol 12 HDL Cholesterol 47 Cholesterol/HDL Ratio 3.1 Vitamin B12 25-OH Vitamin D Total TSH 0.69 05/29/24 21:34 WBC 5.5 RBC 4.92 Hgb 15.0 Hct 44.1 MCV 89.6 MCH 30.5 MCHC 34.0 RDW 14.9 Plt Count 215 MPV 10.7 H Neut % (Auto) 90.0 H Lymph % (Auto) 8.7 L [place] % (Auto) 0.7 L Eos % (Auto) 0.0 L Baso % (Auto) 0.2 Neut # (Auto) 5.0 Lymph # (Auto) 0.5 L [place] # (Auto) 0.0 L Eos # (Auto) 0.0 Baso # (Auto) 0.0 Total Counted 100 Neutrophils % (Manual) 88 H Band Neutrophils % 1.0 Lymphocytes % (Manual) 11 Platelet Estimate Normal RBC Morphology Normal ESR PT 10.9 INR 0.99 Activated Clotting Time Sodium 140 Potassium 4.0 Chloride 103 Carbon Dioxide 24 Anion Gap 17.0 H BUN 17 Creatinine 1.30 H Estimated Creat Clear 63 Estimated GFR 53 L Est GFR ( Amer) 64 Glucose 196 H POC Glucose Hemoglobin A1c Lactate 1.5 Calcium 9.3 Magnesium 1.6 Iron TIBC Iron Saturation Total Bilirubin 1.4 H AST 35 ALT 29 Alkaline Phosphatase 68 Troponin I C-Reactive Protein NT-Pro-B Natriuret Pep Total Protein 6.9 Albumin 4.5 Globulin 2.4 Albumin/Globulin Ratio 1.9 H Triglycerides Cholesterol LDL Cholesterol Direct VLDL Cholesterol HDL Cholesterol Cholesterol/HDL Ratio Vitamin B12 25-OH Vitamin D Total TSH DS: Diagnosis Discharge Diagnosis (1) Unstable angina: Status: Acute Code(s): I20.0 - Unstable angina (2) Fatigue: Status: Acute Code(s): R53.83 - Other fatigue Meds Home Medications and Allergies Home Medications ?Medication ?Instructions ?Recorded ?Confirmed ?Type gabapentin 600 mg tablet 600 mg PO HS 05/29/24 06/17/24 History losartan 100 mg tablet 100 mg PO DAILY 05/29/24 06/17/24 History metformin 1,000 mg tablet 1,000 mg PO BID 05/29/24 06/17/24 History pioglitazone 30 mg tablet (Actos) 30 mg PO DAILY 05/29/24 06/17/24 History vit C 50 mg-E 15 unit-zinc cit 4.5 1 tab PO BID eye health 05/29/24 06/17/24 History mg-lutein 2.5 mg-zeaxan chew tablet ([facility]) aspirin 81 mg tablet,delayed 81 mg PO DAILY 30 days #30 tabs 05/30/24 06/17/24 Rx release cholecalciferol (vitamin D3) 25 100 mcg PO DAILY 05/30/24 06/17/24 History mcg (1,000 unit) tablet (Vitamin D3) clopidogrel 75 mg tablet 75 mg PO DAILY 30 days #30 tabs 05/30/24 06/17/24 Rx cyanocobalamin (vitamin B-12) 1,000 mcg PO DAILY 05/30/24 06/17/24 History 1,000 mcg tablet (Vitamin B-12) fluticasone propionate 50 2 spray intranasal DAILY 05/30/24 06/17/24 History mcg/actuation nasal spray,suspension furosemide 20 mg tablet (Lasix) 40 mg (2 x 20 mg) PO DAILY 30 days 05/30/24 06/17/24 Rx #60 tabs gabapentin 300 mg capsule 300 mg PO 09,12 05/30/24 06/17/24 History lidocaine 5 % topical patch 2 patch topical DAILY PRN Pain 05/30/24 06/17/24 History (Scale Score 4-6) loratadine 10 mg tablet 10 mg PO DAILY 05/30/24 06/17/24 History magnesium oxide 420 mg tablet 420 mg PO BID 05/30/24 06/17/24 History atorvastatin 80 mg tablet (Lipitor) 80 mg PO DAILY #30 tabs 06/05/24 06/17/24 Rx metoprolol succinate 25 mg 25 mg PO DAILY #30 tabs 06/05/24 06/17/24 Rx tablet,extended release 24 hr (Toprol XL) New Prescriptions to Start Prescriptions: aspirin Gary Goyal clopidogrel Gary Goyal furosemide [Lasix] Gary Goyal Allergies Allergy/AdvReac Type Severity Reaction Status Date / Time lisinopril AdvReac Mild Cough Verified 06/17/24 15:26 Discharge Plan Disposition Patient Disposition: Home, Self-Care Condition: Fair Discharge Order Discharge Orders: Discharge Order (Routine); Ordered 05/30/24 Ordered By: Gary Goyal Follow up Plan Follow up with: Norberto Wray MD [Staff Physician] - 06/05/24 2:00 pm Laura Mckeon MD [Referring] - 06/20/24 9:00 am Carlos Bullock MD [Physician] - Enter time for follow up Prescriptions/Medication Reconciliation: New clopidogrel 75 mg Tablet 75 mg PO DAILY 30 Days Qty: 30 0RF aspirin 81 mg Tablet,Delayed Release (Dr/Ec) 81 mg PO DAILY 30 Days Qty: 30 0RF Continued losartan 100 mg Tablet 100 mg PO DAILY Ocuv[facility] 50 mg-15 unit- 4.5 mg-2.5 mg Tablet,Chewable 1 tab PO BID gabapentin 600 mg Tablet 600 mg PO HS metformin 1,000 mg Tablet 1,000 mg PO BID pioglitazone [Actos] 30 mg Tablet 30 mg PO DAILY cyanocobalamin (vitamin B-12) [Vitamin B-12] 1,000 mcg Tablet 1,000 mcg PO DAILY cholecalciferol (vitamin D3) [Vitamin D3] 25 mcg (1,000 unit) Tablet 100 mcg PO DAILY fluticasone propionate 50 mcg/actuation [place],Suspension 2 spray INTRANASAL DAILY Rx Instructions: administer into each nostril lidocaine 5 % Adhesive Patch,Medicated 2 patch TOPICAL DAILY PRN (Reason: Pain (Scale Score 4-6)) Rx Instructions: leave on most painful area for up to 12 hrs loratadine 10 mg Tablet 10 mg PO DAILY magnesium oxide 420 mg Tablet 420 mg PO BID gabapentin 300 mg Capsule 300 mg PO Changed furosemide [Lasix] 20 mg Tablet 40 mg PO DAILY 30 Days Qty: 60 0RF Rx Instructions: take 1 pill every 3 days No Action atorvastatin [Lipitor] 80 mg tablet 80 mg PO DAILY Qty: 30 5RF metoprolol succinate [Toprol XL] 25 mg tablet extended release 24 hr 25 mg PO DAILY Qty: 30 5RF Problem Reconciliation Problems Reviewed?: Yes Patient Discharge Instructions Patient Instructions: Cardiac Catheterization, Coronary Stenting, Calorie- Counting Diet, Carbohydrate-Counting Diet, Increased Dietary Fiber May Improve Constipation Conditions With Pelvic Floor Disorder, Surgical Site Infection, Moderate Sedation, DI for Post-Surgical Bleeding Print Language: Kazakh Providers Primary Care Provider: Provider,Referral Admit Provider: Gary Goyal Attending Provider: Gary Goyal
[2024-05-30 16:33] LABS: POC Glucose,Bedside 118 (70-110)
[2024-05-31 11:14] LABS: CEA 1.6 ng/mL (0.0-4.7)
[2024-06-01 15:11] LABS: Cortisol,AM 1.9 ug/dL (6.2-19.4)
--- NOTE | 2024-06-02 10:53 | SW/DCPLANNER ---
Spoke with patient on the phone. Patient stated that he is doing much better. Patient stated that he was able to get his medicine picked up at [facility]. Patient stated that he is aware of his upcoming appointments. Patient stated that he doesnt have cocnerns or questions at this time. José Manuel Arceo
[2024-06-04 09:20] LABS: Lyme B. burgdorferi PCR Blood Negative (Negative)
[2024-06-05 13:14] LABS: AChR Binding Abs <0.03 nmol/L (0.00-0.24); AChR Blocking Abs 20 % (0-25); AChR Modulating Ab 0 % (0-45)
[2024-06-06 16:22] LABS: MuSK Antibodies <1.0 U/mL (.)
== END 2024-05-30 17:16 | disposition home or self-care (01) | DRG 322 ==
PROVIDERS: Internal Medicine; Nurse Practitioner Family; Physician Assistant; Admitting Provider Student in an Organized Health Care Education/Training Program; Visit Provider Student in an Organized Health Care Education/Training Program
PROC: 4A023N8 Measurement of Cardiac Sampling and Pressure, Bilateral, Percutaneous Approach (ICD-10-PCS; principal; 2024-05-30 11:30)
DX: I25.110 Atherosclerotic heart disease of native coronary artery with unstable angina pectoris (principal); I27.20 Pulmonary hypertension, unspecified; I11.0 Hypertensive heart disease with heart failure; I50.9 Heart failure, unspecified; E11.9 Type 2 diabetes mellitus without complications; Z79.84 Long term (current) use of oral hypoglycemic drugs; R59.1 Generalized enlarged lymph nodes; Z79.899 Other long term (current) drug therapy; G47.30 Sleep apnea, unspecified
CPT/HCPCS: 36415; 80048; 80053; 80061; 82306; 82378; 82533; 82607; 82962; 83036; 83519; 83540; 83550; 83605; 83735; 83880; 84443; 84484; 85007; 85025; 85347; 85610; 85651; 86140; 86255; 87476; 92928; 92978; 93005; 93306; 93460; 93880; 99152; 99153; C1725; C1769; C1874; C1894; C9600; J1200; J1644; J1939; J2250; J3010; Q9967

== ENCOUNTER 2024-05-31 11:30 | Outpatient (CLI) | payer MEDICARE, OTHER, SELFPAY ==
[2024-05-31 11:45] LABS: Basophils % 0.4 % (0.1-2.0); Eosinophils # 0.1 K/mm3 (0.0-0.4); Eosinophils % 1.7 % (0.1-12.0); Hemoglobin 15.1 g/dL (14.1-18.0); Lymphocytes # 1.6 K/mm3 (0.7-4.5); Lymphocytes % 21.2 % (10-50); Mean Corpuscular HGB Conc 32.8 g/dL (31.8-35.4); Mean Corpuscular Volume 91.5 fl (80-94); Mean Platelet Volume 10.8 fl (7.4-10.4); Monocytes # 0.5 K/mm3 (0.1-1.0); Monocytes % 7.1 % (1.7-9.3); Neutrophils # 5.2 K/mm3 (1.8-7.8); Neutrophils % 69.3 % (37.0-80.0); Platelet Count 243 K/mm3 (142-424); Red Blood Count 5.03 M/mm3 (4.60-6.20); Red Cell Distribution Width 15.2 % (11.5-17.5); White Blood Count 7.5 K/mm3 (4.8-10.8)
[2024-05-31 12:32] LABS: Chloride 96 mmol/L (98-107); Potassium 3.9 mmoL/L (3.5-5.1); Sodium 137 mmol/L (136-145)
[2024-05-31 12:35] LABS: Blood Urea Nitrogen 25 mg/dl (9-20); Estimated Glomerular Filt Rate 42 ml/min (>60); GFR (African American) 51 ML/MIN (>60)
[2024-05-31 12:36] LABS: Anion Gap 12.9 mEq/L (5-15); Calcium 9.6 mg/dl (8.4-10.2); Carbon Dioxide 32 mmol/L (22.0-30.0); Glucose 222 mg/dl (74-100)
== END 2024-05-31 23:59 | disposition home or self-care (01) ==
LOC: LAB 11:33
PROVIDERS: PCP Internal Medicine; Visit Provider Internal Medicine
DX: I20.0 Unstable angina (principal)
CPT/HCPCS: 36415; 80048; 85025

== ENCOUNTER 2024-06-05 14:35 | Outpatient (CLI) | payer MEDICARE, SELFPAY ==
[2024-06-05 16:00] LABS: Chloride 96 mmol/L (98-107); Potassium 4.4 mmoL/L (3.5-5.1); Sodium 137 mmol/L (136-145)
[2024-06-05 16:02] LABS: Blood Urea Nitrogen 30 mg/dl (9-20); Estimated Glomerular Filt Rate 42 ml/min (>60); GFR (African American) 51 ML/MIN (>60)
[2024-06-05 16:03] LABS: Anion Gap 15.4 mEq/L (5-15); Calcium 9.6 mg/dl (8.4-10.2); Carbon Dioxide 30 mmol/L (22.0-30.0); Glucose 163 mg/dl (74-100)
== END 2024-06-05 23:59 | disposition home or self-care (01) ==
PROVIDERS: PCP Internal Medicine; Visit Provider Internal Medicine
DX: I27.20 Pulmonary hypertension, unspecified (principal); R00.0 Tachycardia, unspecified; R42 Dizziness and giddiness; I25.10 Atherosclerotic heart disease of native coronary artery without angina pectoris; I10 Essential (primary) hypertension; R53.83 Other fatigue
CPT/HCPCS: 36415; 80048

== ENCOUNTER 2024-06-13 09:46 | Outpatient (RCR) | payer MEDICARE, SELFPAY | END 2024-08-13 14:00 | disposition home or self-care (01) | LOC: CR 09:46 | PROVIDERS: Visit Provider Internal Medicine | DX: I25.10 Atherosclerotic heart disease of native coronary artery without angina pectoris (principal); Z95.5 Presence of coronary angioplasty implant and graft | CPT/HCPCS: 93798 ==

== ENCOUNTER → 2024-07-22 14:25 | Outpatient (CLI) | payer MEDICARE, SELFPAY ==
--- OUTSIDE RECORDS SUMMARY | 2024-07-24 21:22 | XMS_ITS | Encounter Summary ---
Author Name [facility] Organization [facility] Address [address] [place] [address] Care Team Providers Care Cake Icer Name Role Phone LAURA MCKEON Primary Care Provider Unavailabl e Insurance Providers: All historical and current Section Date Range: From patient's date of to the date document was created. This section includes the names of all active insurance providers for the patient. Insurance Provider Type of Coverage Plan Name Start of Policy Coverage End of Policy Coverage Group Number Member ID Insurance Provider's Telephone Number Policy Hoposn's Name Patient's Relationship to Policy Hopson MEDICARE (WNR) MEDICARE (M) PART A Oct 14, 2009 PART A [id number] [phone] Alex GALLEGO PATIENT MEDICARE (WNR) MEDICARE (M) PART B Oct 14, 2009 PART B [id number] [phone] Alex GALLEGO PATIENT MEDICARE (WNR) MEDICARE (M) PART A Oct 14, 2009 PART A [id number] [phone] Alex GALLEGO PATIENT MEDICARE (WNR) MEDICARE (M) PART B Oct 14, 2009 PART B [id number] [phone] Alex GALLEGO [place] PATIENT MEDICARE (WNR) MEDICARE (M) PART A Oct 14, 2009 PART A [id number] Alex GALLEGO PATIENT MEDICARE (WNR) MEDICARE (M) PART B Oct 14, 2009 PART B [id number] [phone] Alex GALLEGO PATIENT Selected Encounter This section includes the information on record at ME for the Encounter. Date/Time Encounter Type Encounter Description Reason Provider Source Jul 10, 2024 09:41 AM Outpatient Encounter EVENT (HISTORICAL) JOE LEUNG E Encounter Template Text not used by ME Plan of Treatment: Future Appointments (+ 6 months) and Future Tests (+/- 45 days) The Plan of Treatment section includes future care activities for the patient from all [place] treatmentfacilities. This section includes future appointments and future orders which are active, pending or scheduled. Future Appointments This section includes appointments that were scheduled to occur 6 months from the date of the Encounter, up to a maximum of 20 appointments. The data comes from all [place] treatment facilities. Appointment Date/Time Appointment Type Appointme nt Facility Name Jul 24, 2024 03:00 PM AMBULATORY - PSYCHIATRY [facility] Aug 05, 2024 09:00 AM AMBULATORY - MEDICINE [facility] Aug 11, 2024 10:00 AM AMBULATORY - PSYCHIATRY [facility] Aug 12, 2024 09:00 AM AMBULATORY - MEDICINE [facility] August 18, 2024 09:00 AM [facility] September 02, 2024 08:20 AM AMBULATORY - SURGERY [facility] Oct 01, 2024 09:00 AM AMBULATORY - NONE [facility] Oct 30, 2024 09:00 AM AMBULATORY - PSYCHIATRY [facility] Dec 09, 2024 08:00 AM AMBULATORY - NONE [facility] Dec 31, 2024 08:30 AM AMBULATORY - MEDICINE [facility] Lab Results: +/- 30 days of the encounter This section includes the Chemistry and Hematology Lab Results on record with ME for the patient. Radiology Reports and Pathology Reports are provided separately, in subsequent sections. Lab Results This section contains the Chemistry/Hematology Results that were resulted 30 days before or 30 daysafter the date of the Encounter. Date/Time Source Result Type Result - Unit Interpretation Reference Range Specimen Type Comment Jun 30, 2024 03:27 PM [facility] BNP ([place]) PLASMA Specimen Type: PLASMA Comment: BNP results less than or equal to 100 pg/ml are reimbursement representative of normal values in patients without CHF. BNP results greater than 100 pg/ml are considered abnormal and suggestive of CHF. Higher BNP concentrations in the first 72 hours after Acute Coronary Syndrome are associated with an increased risk of , myocardial infarction and CHF. Ordering Provider: SACHI SAINZ Report Released Date/Time: Jun 30, 2024 03:21 PM Reporting Lab: [facility] [address] [facility] [id number] Performing Lab: [facility] [address] [place] [id number] BNP ([place]ARD) 22 pg/mL 0-100 Jun 30, 2024 03:27 PM [facility] PANEL 1 PLASMA Specimen Type: PLASM A Comment: Estimated Glomerular Filtration Rate (eGFR) calculated using the 2020 Chronic Kidney Disease-Epidemiology (CKD-EPI) Collaboration creatinine equation; units of measure are mL/min/1.73 m2. Results are only valid for adults (>=18 years) whose serum creatinine is in a steady state. eGFR calculations are not valid for patients with acute kidney injury and for patients on dialysis. Creatinine-based estimates of kidney function may also be inaccurate in patients with reduced creatinine generation due to decreased muscle mass (e.g., malnutrition, severe hypoalbuminemia, sarcopenia, chronic neuromuscular disease, amputations, severe heart failure or liver disease) and in patients with increased creatinine generation due to increased muscle mass (e.g., muscle builders, anabolic steroids) or increased dietary intake. As drug clearance is proportional to total GFR and not GFR indexed to body surface area (BSA), in individuals with a BSA substantially different than 1.73 m2, drug dosing should be based on the reported eGFR value de-indexed from BSA by multiplying by the individual's BSA and dividing by 1.73. CKD is diagnosed based on abnormalities of kidney structure or function, present for >3 months, with implications for health and disease. CKD is classified and staged based on cause, eGFR and albuminuria (quantified as urine albumin to creatinine ratio). An eGFR >60 mL/min/1.73 m2 in the absence of increased urine albumin excretion or structural abnormalities does not represent CKD. eGFR CKD Interpretation (mL/min/1.73 m2) stage >=90 G1 Normal 60-89 G2 Mild decrease 45-59 G3A Mild to moderate decrease 30-44 G3B Moderate to severe decrease 15-29 G4 Severe decrease <15 G5 Kidney failure Ordering Provider: SACHI SAINZ Report Released Date/Time: Jun 30, 2024 03:21 PM Reporting Lab: [address] [address] Performing Lab: [place] [id number] CREATININE 1.43 mg/dL H 0.72-1.25 UREA NITROGEN 22 mg/dL 9-25 GLUCOSE 164 mg/dL H 74-100 SODIUM 139 mmol/L 136-145 POTASSIUM 3.7 mmol/L 3.5-5.1 CHLORIDE 102 mmol/L 98-107 CO2 27 mmol/L 22-29 CALCIUM 9.8 mg/dL 8.4-10.2 ANION GAP 10 meq/L 3-19 eGFR (CKD-EPI) 50 Jun 30, 2024 03:27 PM [facility] CBC/PLT BLOOD Specimen Type: BLOOD No comment entered. Ordering Provider: SACHI SAINZ A Report Released Date/Time: Jun 30, 2024 03:21 PM Reporting Lab: [address] [id number] Performing Lab: [address] [address] WBC 7.2 10*3/uL 5.0-10.0 RBC 4.85 10*6/uL 4.6-6.2 HGB 14.7 g/dL 14.0-18.0 HCT 43.8 42.0-52.0 MCV 90.3 fL 80.0-94.0 MCH 30.3 pg 27.0-31.0 MCHC 33.6 g/dL 32.0-36.0 PLT 235 10*3/uL 150-450 MPV 10.6 fL 9.0-13.1 RDW 14.8 11.0-16.0 NRBC 0.0 0.0-0.0 Vital Signs: All taken on the encounter date This section contains inpatient and outpatient Vital Signs collected on the date of the Encounter. Date/Time Temperature Pulse Blood Pressure Respiratory Rate SP02 Pain Height Weight Body Mass Index Source Jul 10, 2024 08:31 AM 97.7 77 129/76 97 0 211.0 30 [place] [facility] Social History: Smoking Status (Most current) and Tobacco Use (All prior to encounter date) This section includes the most current, and the historical, smoking and tobacco- related health factors from the ME facility where the Encounter took place. Current Smoking Status This section includes the most current smoking, or tobacco-related health factor, from the ME facility where the Encounter took place. Date/Time Current Smoking Status Comment Edis baker May 07, 2024 10:00 AM VA-TOBACCO NEVER U SED CIGARETTES [facility] Tobacco Use History This section includes a history of the smoking, or tobacco-related health factors, that were collected on or before the date of the Encounter. The data comes from the ME facility where the Encounter took place. Date/Time Smoking Status/Tobacco Use Comment F acility May 07, 2024 10:00 AM VA-TOBACCO NEVER U SED OTHER TYPE [facility] Feb 14, 2024 08:30 AM VA-TOBACCO FORMER USER [facility] Feb 14, 2024 08:30 AM VA-TOBACCO QUIT 15 YRS OR MORE [facility] Jan 10, 2023 11:00 AM VA-TOBACCO NEVER USED [facility] Dec 09, 2021 08:00 AM VA-TOBACCO NEVER USED [facility] Dec 10, 2020 09:30 AM VA-TOBACCO NEVER USED [facility] May 13, 2019 09:09 AM VA-TOBACCO NEVER USED [facility] Apr 03, 2018 09:45 AM VA-TOBACCO NEVER USED [facility] May 07, 2017 10:31 AM V9 LIFETIME NON-USER OF TOBACCO [facility] Apr 06, 2016 10:18 AM V9 LIFETIME NON-USER OF TOBACCO [facility] Jan 26, 2015 08:52 AM V9 LIFETIME NON-USER OF TOBACCO [facility] August 18, 2013 08:27 AM V9 LIFETIME NON-USER OF TOBACCO [facility] Sep 18, 2012 08:39 AM V9 LIFETIME NON-USER OF TOBACCO [facility] Jan 19, 2012 10:42 AM V9 LIFETIME NON-USER OF TOBACCO [facility] Jan 19, 2012 10:42 AM V9 TOBACCO OFFERED [facility] September 13, 2010 10:28 AM V9 LIFETIME NON-USER OF TOBACCO [facility] September 13, 2010 10:28 AM V9 TOBACCO OFFERED [facility] Sep 21, 2006 12:59 PM V9 LIFETIME NON-USER OF TOBACCO [facility] Jan 29, 2006 07:52 AM HF V9 LIFETIME NON-SMOKER [facility] Dec 30, 2004 08:05 AM HF V9 LIFETIME NON-SMOKER [facility] Dec 23, 2003 02:58 PM HF V9 LIFETIME NON-SMOKER [facility] Pathology Reports: +/- 30 days of the encounter Pathology Reports For cases when an order for pathology services may have been completed prior to the date of the Encounter, the report list includes the Pathology Reports that were completed up to 30 days before dateof the Encounter. For cases when an order for pathology services may have been completed after the date of the Encounter, the report list also includes the Pathology Reports that were completed up to30 days after date of the Encounter. The data comes from all [facility] facilities. Date/Time Pathology Report Provider Source Jul 10, 2024 09:41 AM LR SURGICAL PATHOL [facility] REPORT: LOCAL TITLE: LR SURGICAL PATHOLOGY REPORT DATE OF NOTE: JUL 10, 2024@09:41:15 ENTRY DATE: JUL 10, 2024@09:41:15 AUTHOR: JOE LEUNG COSIGNER: URGENCY: STATUS: COMPLETED $APHDR Reporting Lab: [facility] [CLIA# [id number]] [address] [place] [address] - - - - - - - - - - - - - - - - - - - - - - - - - - - - - - - - - - - - - - - - MEDICAL RECORD SURGICAL PATHOLOGY - - - - - - - - - - - - - - - - - - - - - - - - - - - - - - - - - - - - - - - - PATHOLOGY REPORT Accession No. [id number] - - - - - - - - - - - - - - - - - - - - - - - - - - - - - - - - - - - - - - - - $TEXT Submitted by: MONICA Date obtained: Jul 08, 2024 - - - - - - - - - - - - - - - - - - - - - - - - - - - - - - - - - - - - - - - - Specimen (Received Jul 08, 2024 13:12): BELOW LEFT EARLOBE (SHAVE) - - - - - - - - - - - - - - - - - - - - - - - - - - - - - - - - - - - - - - - - BRIEF CLINICAL HISTORY: 5MM ROUGH WAXY APPEARING PAPULE. - - - - - - - - - - - - - - - - - - - - - - - - - - - - - - - - - - - - - - - - PREOPERATIVE DIAGNOSIS: RULE OUT SCC VS ISK. - - - - - - - - - - - - - - - - - - - - - - - - - - - - - - - - - - - - - - - - OPERATIVE FINDINGS: PROCEDURE - SHAVE BIOPSY. FINDINGS - NOT GIVEN. - - - - - - - - - - - - - - - - - - - - - - - - - - - - - - - - - - - - - - - - POSTOPERATIVE DIAGNOSIS: NOT GIVEN. Surgeon/physician: INDER ROGERS =-=-=-=-=-=-=-=-=-=-=-=-=-= -=-=-=-=-=-=-=-=-=-=-=-=-=- =-=-=-=-=-=-=-=-=-=-=-=-= - - - - - - - - - - - - - - - - - - - - - - - - - - - - - - - - - - - - - - - - PATHOLOGY REPORT Accession No. [id number] - - - - - - - - - - - - - - - - - - - - - - - - - - - - - - - - - - - - - - - - Pathology Resident: JOE RICK The specimen is received in formalin labeled shave below left earlobe and consists of an unoriented, dni-hayc-rmtqnaj, yellow/white shave of skin measuring 0.5 x 0.4 x 0.2 cm. A rough papule is identified over the skin surface measuring 0.4 x 0.3 cm. The cut surface is yellow/white and grossly unremarkable. The cut surface is inked blue. The specimen is bisected to reveal a white solid interior. The specimen is submitted entirely in a single cassette. 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 /[place]/ JOE LEUNG pathologist Signed Jul 10, 2024@09:41 Performing Laboratory: Surgical Pathology Report Performed By: [facility] [CLIA# [id number]] [address] [place] [phone] $FTR - - - - - - - - - - - - - - - - - - - - - - - - - - - - - - - - - - - - - - - - (End of report) JOE LEUNG MD [facility] Date Jul 10, 2024 - - - - - - - - - - - - - - - - - - - - - - - - - - - - - - - - - - - - - - - - ERIK GALLEGO STANDARD FORM 515 ID:[id number] SEX:M :1945 AGE: 78 LOC:PATH PCP: Laura Mckeon MD /[place]/ JOE LEUNG pathologist Signed: 07/10/2024 09:41 [facility] Encounter Notes: All associated encounter notes This section contains the clinical notes associated to the Encounter. Date/Time Encounter Note(s) Provider Source Jul 10, 2024 09:41 AM LOCAL TITLE: LR DAVIS RGICAL PATHOLOGY REPORT DATE OF NOTE: JUL 10, 2024@09:41:15 ENTRY DATE: JUL 10, 2024@09:41:15 AUTHOR: JOE LEUNG COSIGNER: URGENCY: STATUS: COMPLETED $APHDR Reporting Lab: [facility] [[facility]# [id number]] [address] [place] [address] - - - - - - - - - - - - - - - - - - - - - - - - - - - - - - - - - - - - - - - - MEDICAL RECORD SURGICAL PATHOLOGY - - - - - - - - - - - - - - - - - - - - - - - - - - - - - - - - - - - - - - - - PATHOLOGY REPORT Accession No. [id number] - - - - - - - - - - - - - - - - - - - - - - - - - - - - - - - - - - - - - - - - $TEXT Submitted by: MONICA Date obtained: Jul 08, 2024 - - - - - - - - - - - - - - - - - - - - - - - - - - - - - - - - - - - - - - - - Specimen (Received Jul 08, 2024 13:12): BELOW LEFT EARLOBE (SHAVE) - - - - - - - - - - - - - - - - - - - - - - - - - - - - - - - - - - - - - - - - BRIEF CLINICAL HISTORY: 5MM ROUGH WAXY APPEARING PAPULE. - - - - - - - - - - - - - - - - - - - - - - - - - - - - - - - - - - - - - - - - PREOPERATIVE DIAGNOSIS: RULE OUT SCC VS ISK. - - - - - - - - - - - - - - - - - - - - - - - - - - - - - - - - - - - - - - - - OPERATIVE FINDINGS: PROCEDURE - SHAVE BIOPSY. FINDINGS - NOT GIVEN. - - - - - - - - - - - - - - - - - - - - - - - - - - - - - - - - - - - - - - - - POSTOPERATIVE DIAGNOSIS: NOT GIVEN. Surgeon/physician: INDER ROGERS =-=-=-=-=-=-=-=-=-=-=-=-=-= -=-=-=-=-=-=-=-=-=-=-=-=-=- =-=-=-=-=-=-=-=-=-=-=-=-= - - - - - - - - - - - - - - - - - - - - - - - - - - - - - - - - - - - - - - - - PATHOLOGY REPORT Accession No. [id number] - - - - - - - - - - - - - - - - - - - - - - - - - - - - - - - - - - - - - - - - Pathology Resident: JOE RICK The specimen is received in formalin labeled shave below left earlobe and consists of an unoriented, lxy-hfud-pampehh, yellow/white shave of skin measuring 0.5 x 0.4 x 0.2 cm. A rough papule is identified over the skin surface measuring 0.4 x 0.3 cm. The cut surface is yellow/white and grossly unremarkable. The cut surface is inked blue. The specimen is bisected to reveal a white solid interior. The specimen is submitted entirely in a single cassette. 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 /peyton/ JOE LEUNG pathologist Signed Jul 10, 2024@09:41 Performing Laboratory: Surgical Pathology Report Performed By: [facility] [CLIA# [id number]] [address] [place] [phone] $FTR - - - - - - - - - - - - - - - - - - - - - - - - - - - - - - - - - - - - - - - - (End of report) JOE LEUNG MD [facility] Date Jul 10, 2024 - - - - - - - - - - - - - - - - - - - - - - - - - - - - - - - - - - - - - - - - ERIK GALLEGO STANDARD FORM 515 ID:[id number] SEX:M :1945 AGE: 78 LOC:PATH PCP: Laura Mckeon MD /[place]/ JOE LEUNG pathologist Signed: 07/10/2024 09:41 JOE LEUNG-CDD [facility]
--- OUTSIDE RECORDS SUMMARY | 2024-07-24 21:22 | XMS_ITS | Encounter Summary ---
Author Name [facility] ([place] Organization [facility] Address [address] [place] [id number] Care Team Providers Care Splicer Operator Name Role Phone STEINBERG LAURA Primary Care Provider Unavailabl e Insurance Providers: All historical and current Section Date Range: From patient's date of to the date document was created. This section includes the names of all active insurance providers for the patient. Insurance Provider Type of Coverage Plan Name Start of Policy Coverage End of Policy Coverage Group Number Member ID Insurance Provider's Telephone Number Policy Hopson's Name Patient's Relationship to Policy Hopson MEDICARE (WNR) MEDICARE (M) PART A Oct 14, 2009 PART A [id number] Alex GALLEGO PATIENT MEDICARE (WNR) MEDICARE (M) PART B Oct 14, 2009 PART B [id number] [phone] Alex GALLEGO PATIENT MEDICARE (WNR) MEDICARE (M) PART A Oct 14, 2009 PART A [id number] [phone] [id number] Alex GALLEGO PATIENT MEDICARE (WNR) MEDICARE (M) PART B Oct 14, 2009 PART B [id number] [phone] [id number] Alex GALLEGO PATIENT MEDICARE (WNR) MEDICARE (M) PART A Oct 14, 2009 PART A [id number] Alex GALLEGO PATIENT MEDICARE (WNR) MEDICARE (M) PART B Oct 14, 2009 PART B [id number] Alex GALLEGO PATIENT Selected Encounter This section includes the information on record at OR for the Encounter. Date/Time Encounter Type Encounter Description Reason Pro vider Source May 29, 2024 03:01 PM Outpatient Encounter TELEPHONE TRIAGE IHE Encounter Template Text not used by OR Plan of Treatment: Future Appointments (+ 6 months) and Future Tests (+/- 45 days) The Plan of Treatment section includes future care activities for the patient from all OR treatmentfacilities. This section includes future appointments and future orders which are active, pending or scheduled. Future Appointments This section includes appointments that were scheduled to occur 6 months from the date of the Encounter, up to a maximum of 20 appointments. The data comes from all OR treatment facilities. Appointment Date/Time Appointment Type Appointme nt Facility Name Jun 06, 2024 08:00 AM AMBULATORY - SURGERY [place] G[facility] Jun 10, 2024 08:50 AM [facility] Jun 10, 2024 11:00 AM [facility] Jun 20, 2024 09:00 AM AMBULATORY - NONE [place] [facility] Jun 24, 2024 08:00 AM AMBULATORY - NONE [place] [facility] Jun 30, 2024 11:00 AM AMBULATORY - NONE [place] [facility] Jun 30, 2024 03:00 PM AMBULATORY - MEDICINE [facility]GT[facility] Jul 01, 2024 09:00 AM AMBULATORY - MEDICINE JAYNE NGTON-CDD [facility] Jul 07, 2024 10:00 AM AMBULATORY - [facility]IATRY [facility] Jul 08, 2024 10:00 AM AMBULATORY - MEDICINE JAYNE NGTON [facility] Jul 10, 2024 08:30 AM AMBULATORY - MEDICINE JAYNE NGTON-CDD [facility] Jul 24, 2024 03:00 PM AMBULATORY - PS[facility]CHIATRY [facility] Aug 05, 2024 09:00 AM AMBULATORY - MEDICINE JAYNE NGTON [facility] Aug 11, 2024 10:00 AM AMBULATORY - PS[facility]CHIATRY [facility] Aug 12, 2024 09:00 AM AMBULATORY - MEDICINE JAYNE SINGH [facility] August 18, 2024 09:00 AM AMBULATORY - SURGERY LARRY HOLLOWAY [facility] September 02, 2024 08:20 AM AMBULATORY - SURGERY LARRY HOLLOWAY [facility] Oct 01, 2024 09:00 AM AMBULATORY - NONE DALE Rios [facility] Oct 30, 2024 09:00 AM AMBULATORY - PSYCHIATRY COREY NICHOLAS [facility] Lab Results: +/- 30 days of the encounter This section includes the Chemistry and Hematology Lab Results on record with [facility] for the patient. Radiology Reports and Pathology Reports are provided separately, in subsequent sections. Lab Results This section contains the Chemistry/Hematology Results that were resulted 30 days before or 30 daysafter the date of the Encounter. Date/Time Source Result Type Result - Unit Interpretation Reference Range Specimen Type Comment May 15, 2024 09:46 AM [facility] MAGNESIUM PLASMA Specimen Type: PLASMA Comment: Estimated Glomerular Filtration Rate (eGFR) calculated using the 2020 Chronic Kidney Disease-Epidemio logy (CKD-EPI) Collaboration creatinine equation; units of measure [...] or structural abnormalities does not represent CKD. ====== eGFR CKD Interpretation (mL/min/1.73 m2) stage >=90 G1 Normal 60-89 G2 Mild decrease 45-59 G3A Mild to moderate decrease 30-44 G3B Moderate to severe decrease 15-29 G4 Severe decrease <15 G5 Kidney failure Ordering Provider: LAURA STEINBERG Report Released Date/Time: May 07, 2024 10:35 AM Reporting Lab: [address] [address] Performing Lab: [address] [address] MAGNESIUM 1.8 mg/dL 1.6-2.6 May 15, 2024 09:46 AM [facility] B[facility] (netTALK) PLASMA Specimen Type: PLASMA Comment: BNP results less than or equal to 100 pg/ml are risk control field representative of normal values in patients without CHF. BNP results greater than 100 pg/ml are considered abnormal and suggestive of CHF. Higher BNP concentrations in the first 72 hours after Acute Coronary Syndrome are associated with an increased risk of , myocardial infarction and CHF. Ordering Provider: LAURA STEINBERG Report Released Date/Time: May 07, 2024 10:35 AM Reporting Lab: [address] [address] Performing Lab: [address] [address] BNP (STODDARD) 29 pg/mL 0-100 May 15, 2024 09:46 AM [facility] PANEL 1 PLASMA Specimen Type: PLASM A [...] decrease <15 G5 Kidney failure Ordering Provider: LAURA STEINBERG Report Released Date/Time: May 07, 2024 10:35 AM Reporting Lab: [address] [address] Performing Lab: [address] [address] CREATININE 1.54 mg/dL H 0.72-1.25 UREA NITROGEN 20 mg/dL 9-25 GLUCOSE 151 mg/dL H 74-100 SODIUM 140 mmol/L 136-145 POTASSIUM 4.0 mmol/L 3.5-5.1 CHLORIDE 104 mmol/L 98-107 CO2 28 mmol/L 22-29 CALCIUM 9.7 mg/dL 8.4-10.2 ANION GAP 8 meq/L 3-19 eGFR (CKD-EPI) 46 Social History: Smoking Status (Most current) and Tobacco Use (All prior to encounter date) This section includes the most current, and the historical, smoking and tobacco- related health factors from the OR facility where the Encounter took place. Current Smoking Status This section includes the most current smoking, or tobacco-related health factor, from the OR facility where the Encounter took place. Date/Time Current Smoking Status Comment Edis baker May 07, 2024 10:00 AM VA-TOBACCO NEVER U SED CIGARETTES [facility] Tobacco Use History This section includes a history of the smoking, or tobacco-related health factors, that were collected on or before the date of the Encounter. The data comes from the [place] facility where the Encounter took place. Date/Time Smoking Status/Tobacco Use Comment Ramu harrington May 07, 2024 10:00 AM VA-TOBACCO NEVER U SED OTHER TYPE [facility] Feb 14, 2024 08:30 AM VA-TOBACCO FORMER USER [facility] Feb 14, 2024 08:30 AM VA-TOBACCO QUIT 15 YRS OR MORE [facility] Jan 10, 2023 11:00 AM VA-TOBACCO NEVER USED [facility] Dec 09, 2021 08:00 AM VA-TOBACCO NEVER USED [facility] Dec 10, 2020 09:30 AM VA-TOBACCO NEVER USED [facility] May 13, 2019 09:09 AM VA-TOBACCO NEVER USED [facility] Apr 03, 2018 09:45 AM VA-TOBACCO NEVER USED [facility] May 07, 2017 10:31 AM V9 LIFETIME NON-USER OF TOBACCO [facility] Apr 06, 2016 10:18 AM V9 LIFETIME NON-USER OF TOBACCO [facility] Jan 26, 2015 08:52 AM V9 LIFETIME NON-USER OF TOBACCO [facility] August 18, 2013 08:27 AM V9 LIFETIME NON-USER OF TOBACCO [facility] Sep 18, 2012 08:39 AM V9 LIFETIME NON-USER OF TOBACCO [facility] Jan 19, 2012 10:42 AM V9 LIFETIME NON-USER OF TOBACCO [facility] Jan 19, 2012 10:42 AM V9 TOBACCO OFFERED [facility] September 13, 2010 10:28 AM V9 LIFETIME NON-USER OF TOBACCO [facility] September 13, 2010 10:28 AM V9 TOBACCO OFFERED [facility] Sep 21, 2006 12:59 PM V9 LIFETIME NON-USER OF TOBACCO [facility] Jan 29, 2006 07:52 AM HF V9 LIFETIME NON-SMOKER [facility] Dec 30, 2004 08:05 AM HF V9 LIFETIME NON-SMOKER [facility] Dec 23, 2003 02:58 PM HF V9 LIFETIME NON-SMOKER [facility] Radiology Reports: +/- 30 days of the encounter Radiology Reports For cases when an order for radiology services may have been completed prior to the date of the Encounter, the report list includes the Radiology Reports that were completed up to 30 days before dateof the Encounter. For cases when an order for radiology services may have been completed after the date of the Encounter, the report list also includes the Radiology Reports that were completed up to30 days after date of the Encounter. The data comes from all [facility] facilities. Date/Time Radiology Report Provider Source May 29, 2024 05:[address] PERFORMED BY OTHER FACILITY: ERIK GALLEGO [id number] -1945 M Exm Date: MAY 29, 2024@17:13 Req Phys: LAURA STEINBERG Pat Loc: [facility] PACT LULU 1-2 (Req'g Lo Img Loc: OUTSIDE2 LD CT Service: Unknown (Case [id number] COMPLETE) [id number] CT PERFORMED BY OTHER FACIL(CT Detailed) CPT:83311 Reason for Study: Exam imported from outside Clinical History: Original Data for Imported Study Patient Name: ERIK GALLEGO Date: 1945 Sex: M Study Date: 05/29/24 Study Time: 05:13:55 Study Description: CT CHEST PE/ABD/PEL W Referring Physician: TAMMI GEE Series 1: 2 CT files, description: AUTO BODY STRAIGHTENER Series 2: 216 CT files, description: 5.0mm standard Series 3: 115 CT files, description: 5.0 mm lung windows Series 4: 27 CT files, description: DELAYS Series 5: 59 CT files, description: LT PULMONARY Series 6: 70 CT files, description: RT PULMONARY Series 7: 107 CT files, description: CT Chest1 Cor 3 Avg Series 8: 88 CT files, description: CT Chest2 Sag 5 Avg Series 9: 68 CT files, description: coronal abdomen pelvis Series 10: 88 CT files, description: sagittal abdomen pelvis Series 11: 1 SR file, description: Dose Record Series 12: 1 CT file, description: Dose Report Report Status: Electronically Filed Date Reported: JUN 18, 2024 Report: Electronically generated report for outside study. Impression: Electronically generated report for outside study. 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 Yes Active Outpatient Medications (including Supplies): Active Outpatient Medications Status ===== 1) ACCU-CHEK GUIDE (GLUCOSE) TEST STRIP USE 1 STRIP TO TEST ACTIVE BLOOD SUGAR 3-4 TIMES WEEKLY 2) ALOH 160/MG CARB 105MG CHEW TAB CHEW 1 TABLET BY MOUTH AFTER ACTIVE MEALS NEEDED FOR INDIGESTION/REFLUX Indication: FOR STOMACH 3) AMLODIPINE BESYLATE 2.5MG TAB TAKE ONE TABLET BY MOUTH DAILY ACTIVE -DO NOT DRINK GRAPEFRUIT JUICE WHILE ON THIS DRUG Indication: FOR HIGH BLOOD PRESSURE 4) CHOLECALCIF 25MCG (D3-1,000UNIT) TAB TAKE FOUR TABLETS BY ACTIVE MOUTH DAILY FOR VITAMIN D SUPPLEMENT 5) CLOTRIMAZOLE 1% TOP SOLN APPLY SMALL AMOUNT TO AFFECTED AREA ACTIVE TWICE A DAY Indication: FOR FUNGAL INFECTION 6) CYANOCOBALAMIN 1000MCG TAB TAKE ONE TABLET BY MOUTH DAILY ACTIVE (S) Indication: FOR VITAMIN B12 SUPPLEMENT 7) DICLOFENAC NA 1% TOP GEL APPLY SMALL AMOUNT TO AFFECTED AREA ACTIVE EVERY 6 HOURS NEEDED FOR SHOULDER PAIN 8) FLUTICASONE PROP 50MCG 120D NASAL INHL USE 2 SPRAYS IN EACH ACTIVE NOSTRIL DAILY FOR NASAL ALLERGY 9) FUROSEMIDE 20MG TAB TAKE ONE TABLET BY MOUTH EVERY MORNING ACTIVE Indication: FOR FLUID 10) GABAPENTIN 300MG CAP TAKE ONE CAPSULE BY MOUTH EVERY MORNING ACTIVE AND TAKE ONE CAPSULE AT NOON AND TAKE TWO CAPSULES EVERY EVENING FOR PAIN Indication: FOR NERVE PAIN 11) LIDOCAINE 5% 5IN X 6IN PATCH APPLY 2 PATCHES TO SKIN DAILY ACTIVE -LEAVE ON 12 HOURS, THEN REMOVE FOR 12 HOURS Indication: FOR PAIN 12) LORATADINE 10MG TAB TAKE ONE TABLET BY MOUTH DAILY FOR ACTIVE (S) ALLERGIES 13) LOSARTAN 100MG TAB TAKE ONE TABLET BY MOUTH DAILY STOPPING ACTIVE THE HCTZ Indication: FOR BLOOD PRESSURE 14) MAGNESIUM OXIDE 420MG TAB TAKE ONE TABLET BY MOUTH TWICE A ACTIVE DAY Indication: FOR SUPPLEMENT 15) METFORMIN HCL 1000MG TAB TAKE ONE TABLET BY MOUTH TWICE A ACTIVE DAY FOR DIABETES 16) MIRTAZAPINE 15MG TAB TAKE ONE-HALF TABLET BY MOUTH AT ACTIVE (S) BEDTIME Indication: FOR SLEEP 17) MULTIVIT/OPHTH AREDS2/LUTE/ZEAX CAP/TAB TAKE 1 SOFTGEL BY ACTIVE (S) MOUTH TWICE A DAY AFTER MEALS Indication: FOR EYE HEALTH 18) MUPIROCIN 2% OINT APPLY SMALL AMOUNT TO AFFECTED AREA DAILY ACTIVE -APPLY DAILY TO TREATMENT SITES AFTER CLEANING. THIS IS A TOPICAL ANTIBIOTIC. Indication: TO PREVENT INFECTION 19) PANTOPRAZOLE NA 40MG EC TAB TAKE ONE TABLET BY MOUTH TWICE A ACTIVE DAY 30 MINUTES BEFORE A MEAL -TAKE ON AN EMPTY STOMACH. Indication: FOR STOMACH 20) PIOGLITAZONE HCL 30MG TAB TAKE ONE TABLET BY MOUTH DAILY FOR ACTIVE DIABETES Indication: FOR BLOOD SUGAR 21) PRAZOSIN HCL 1MG CAP TAKE ONE CAPSULE BY MOUTH AT BEDTIME ACTIVE TAKE IN ADDITION TO 5 MG CAPSULE FOR TOTAL OF 6 MG AT BEDTIME Indication: FOR NIGHTMARES. 22) PRAZOSIN HCL 5MG CAP TAKE ONE CAPSULE BY MOUTH AT BEDTIME ACTIVE (S) Indication: FOR NIGHTMARES 23) SERTRALINE HCL 100MG TAB TAKE ONE AND ONE-HALF TABLETS BY ACTIVE (S) MOUTH EVERY MORNING Indication: FOR MOOD 24) TRIAMCINOLONE ACETONIDE 0.1% OINT APPLY SMALL AMOUNT TO ACTIVE AFFECTED AREA TWICE A DAY Indication: FOR SKIN RASH WT: 213.5 lb [96.84 kg] (05/15/2024 10:57) HT: 70 in [177.8 cm] (05/15/2024 10:57) How do you want to stress the patient? Treadmill Do you want the patient to take their beta blockers for the exam? Yes History/Reason for Exam: CP Report Status: Verified Date Reported: JUN 05, 2024 Date Verified: JUN 05, 2024 Automation Application Engineer E-Sig: Report: [facility], [place], [place] STUDY: Treadmill Exercise SPECT Tc-99m myoview (tetrofosmin) myocardial perfusion imaging with gated SPECT and EF. Addendum: I have reviewed the extracardiac findings on the limited field of view low attenuation non-contrast chest CT. Small right pleural effusion. Ground glass opacities bilaterally possibly pulm edema. Chronic granulomatous disease Impression: 1. This is a probably normal nuclear stress test--poor exercise tolerance but no definite ischemia. 2. There was no clinical, hemodynamic, or electrocardiographic evidence for myocardial ischemia during exercise. 3. The Velez treadmill score represents intermediate risk for future cardiovascular events. 4. Perfusion: SPECT images demonstrate normal myocardial perfusion. 5. Function: Gated SPECT images demonstrate normal systolic function. 6. Compared to prior study from 4/1/22, there are no significant changes. 7. No significant coronary calcifications noted on non-contrast CT scan. CLINICAL INDICATION: General assessment of chest pain CLINICAL HISTORY: 78 year-old male who has no known history of coronary artery disease. Cardiac risk factors include: HTN, HLD, DM, JAYLA. TECHNIQUE: A one-day protocol was followed. 5.5 mCi of Tc-99m tetrofosmin were injected intravenously at rest. 45-90 minutes later, SPECT imaging of the heart was performed with tomographic and three-dimensional reconstructions with [employer] NM/CT 640 system. The patient performed treadmill exercise using a standard Cam protocol and completed 3 minutes 44 seconds; exercise was encouraged to continue for 1-2 minutes after achieving age-predicted target heart rate. 16.5 mCi of Tc-99m tetrofosmin injected intravenous immediately thereafter. 45-90 minutes later, post-stress SPECT imaging of the heart was performed with tomographic and three-dimensional reconstructions. Gated SPECT data were obtained to calculate left ventricular volumes and ejection fraction post-stress. Computed tomographic scan was acquired using 4-slice CT system after stress imaging, and attenuation-corrected images were generated from both data sets in addition to the conventional lgn-locwguqurff-xhwyzbcyc images. Both filtered back projection and iterative reconstructed images were available for review. Motion correction was not applied to the rest and/or post-stress acquisitions. FINDINGS: CLINICAL/HEMODYNAMIC/ECG SUMMARY: 1. This patient completed 3 minutes 44 seconds of exercise time achieving an estimated workload of 3.7 metabolic equivalents (METS). 2. The test was terminated due to fatigue. 3. The heart rate was 82 beats per minute at baseline and increased to a maximal 144 beats per minute, which was 102% of the age-predicted maximum predicted heart rate. 4. The resting blood pressure was 131/73 mmHg and increased to 189/98 mmHg, which is normal response to exercise. 5. The patient had mild non-limiting chest tightness, but did not develop clinically significant symptoms other than fatigue. 6. The resting electrocardiogram demonstrated normal sinus rhythm, RBBB. Subsequent stress ECGs did not show ST changes consistent with myocardial ischemia. 7. The rate-pressure double product was 27,216. 8. The Velez treadmill score was 0 (intermediate risk). 9. There were no significant arrhythmias. 10. The heart rate recovery was appropriate (>12bpm) SCINTIGRAPHIC FINDINGS: 1. There is no significant patient motion noted on the raw images. Extracardiac findings include normal radiotracer uptake by gallbladder. 2. The SPECT images demonstrate a normal left ventricular cavity with an estimated left ventricular end-diastolic volume of 84 mL (normal < 149 mL for males, < 102 mL for females). 3. There is no stress-induced transient ischemic dilation (TID) of the left ventricular cavity. 4. SPECT images: Attenuation-corrected and myo-celyswtmrbe-vqqjubzai SPECT images were evaluated. SPECT images demonstrate normal myocardial perfusion. There is a medium size, mild intensity defect located in the nnfua-hi-xraauw inferior myocardium . The defect is fixed and normalizes with attenuation-correction. The perfusion finding is best explained by soft tissue attenuation artifact. There is no definite myocardial ischemia. 5. The gated SPECT images demonstrate normal systolic function. Regional wall motion is normal 6. The calculated post-stress LVEF is 60%. Participating Fellow: Juan José Hernandez MD COMMUNICATION: Per this written report. ATTESTATION: I have personally reviewed the electrocardiograms and SPECT images with the participating physicians and agree with the report. 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 Yes Active Outpatient Medications (including Supplies): Active Outpatient Medications Status ===== 1) ACCU-CHEK GUIDE (GLUCOSE) TEST STRIP USE 1 STRIP TO TEST ACTIVE BLOOD SUGAR 3-4 TIMES WEEKLY 2) ALOH 160/MG CARB 105MG CHEW TAB CHEW 1 TABLET BY MOUTH AFTER ACTIVE MEALS NEEDED FOR INDIGESTION/REFLUX Indication: FOR STOMACH 3) AMLODIPINE BESYLATE 2.5MG TAB TAKE ONE TABLET BY MOUTH DAILY ACTIVE -DO NOT DRINK GRAPEFRUIT JUICE WHILE ON THIS DRUG Indication: FOR HIGH BLOOD PRESSURE 4) CHOLECALCIF 25MCG (D3-1,000UNIT) TAB TAKE FOUR TABLETS BY ACTIVE MOUTH DAILY FOR VITAMIN D SUPPLEMENT 5) CLOTRIMAZOLE 1% TOP SOLN APPLY SMALL AMOUNT TO AFFECTED AREA ACTIVE TWICE A DAY Indication: FOR FUNGAL INFECTION 6) CYANOCOBALAMIN 1000MCG TAB TAKE ONE TABLET BY MOUTH DAILY ACTIVE (S) Indication: FOR VITAMIN B12 SUPPLEMENT 7) DICLOFENAC NA 1% TOP GEL APPLY SMALL AMOUNT TO AFFECTED AREA ACTIVE EVERY 6 HOURS NEEDED FOR SHOULDER PAIN 8) FLUTICASONE PROP 50MCG 120D NASAL INHL USE 2 SPRAYS IN EACH ACTIVE NOSTRIL DAILY FOR NASAL ALLERGY 9) FUROSEMIDE 20MG TAB TAKE ONE TABLET BY MOUTH EVERY MORNING ACTIVE Indication: FOR FLUID 10) GABAPENTIN 300MG CAP TAKE ONE CAPSULE BY MOUTH EVERY MORNING ACTIVE AND TAKE ONE CAPSULE AT NOON AND TAKE TWO CAPSULES EVERY EVENING FOR PAIN Indication: FOR NERVE PAIN 11) LIDOCAINE 5% 5IN X 6IN PATCH APPLY 2 PATCHES TO SKIN DAILY ACTIVE -LEAVE ON 12 HOURS, THEN REMOVE FOR 12 HOURS Indication: FOR PAIN 12) LORATADINE 10MG TAB TAKE ONE TABLET BY MOUTH DAILY FOR ACTIVE (S) ALLERGIES 13) LOSARTAN 100MG TAB TAKE ONE TABLET BY MOUTH DAILY STOPPING ACTIVE THE HCTZ Indication: FOR BLOOD PRESSURE 14) MAGNESIUM OXIDE 420MG TAB TAKE ONE TABLET BY MOUTH TWICE A ACTIVE DAY Indication: FOR SUPPLEMENT 15) METFORMIN HCL 1000MG TAB TAKE ONE TABLET BY MOUTH TWICE A ACTIVE DAY FOR DIABETES 16) MIRTAZAPINE 15MG TAB TAKE ONE-HALF TABLET BY MOUTH AT ACTIVE (S) BEDTIME Indication: FOR SLEEP 17) MULTIVIT/OPHTH AREDS2/LUTE/ZEAX CAP/TAB TAKE 1 SOFTGEL BY ACTIVE (S) MOUTH TWICE A DAY AFTER MEALS Indication: FOR EYE HEALTH 18) MUPIROCIN 2% OINT APPLY SMALL AMOUNT TO AFFECTED AREA DAILY ACTIVE -APPLY DAILY TO TREATMENT SITES AFTER CLEANING. THIS IS A TOPICAL ANTIBIOTIC. Indication: TO PREVENT INFECTION 19) PANTOPRAZOLE NA 40MG EC TAB TAKE ONE TABLET BY MOUTH TWICE A ACTIVE DAY 30 MINUTES BEFORE A MEAL -TAKE ON AN EMPTY STOMACH. Indication: FOR STOMACH 20) PIOGLITAZONE HCL 30MG TAB TAKE ONE TABLET BY MOUTH DAILY FOR ACTIVE DIABETES Indication: FOR BLOOD SUGAR 21) PRAZOSIN HCL 1MG CAP TAKE ONE CAPSULE BY MOUTH AT BEDTIME ACTIVE TAKE IN ADDITION TO 5 MG CAPSULE FOR TOTAL OF 6 MG AT BEDTIME Indication: FOR NIGHTMARES. 22) PRAZOSIN HCL 5MG CAP TAKE ONE CAPSULE BY MOUTH AT BEDTIME ACTIVE (S) Indication: FOR NIGHTMARES 23) SERTRALINE HCL 100MG TAB TAKE ONE AND ONE-HALF TABLETS BY ACTIVE (S) MOUTH EVERY MORNING Indication: FOR MOOD 24) TRIAMCINOLONE ACETONIDE 0.1% OINT APPLY SMALL AMOUNT TO ACTIVE AFFECTED AREA TWICE A DAY Indication: FOR SKIN RASH WT: 213.5 lb [96.84 kg] (05/15/2024 10:57) HT: 70 in [177.8 cm] (05/15/2024 10:57) How do you want to stress the patient? Treadmill Do you want the patient to take their beta blockers for the exam? Yes History/Reason for Exam: CP Report Status: Verified Date Reported: MAY 27, 2024 Date Verified: MAY 27, 2024 Automation Application Engineer E-Sig: Report: STUDY: GXT REPORT: Patient exercised for 3:44 on the Cam protocol achieving THR 119 and a maximum HR of 144 (102% predicted) and 3.7 METS. Test limited to significant dyspnea and leg fatigue. Patient reported substernal chest tightness 2 minutes into exercise, resolved during rest period. PAC's and PVCs noted during exercise with nonspecific ST-T changes .No complications during GXT or on recovery. Impression: Resting ECG with sinus rhythm, frequent PAC's.Exercised for 3:44 via Cam protocol achieving THR 119 bpm with early termination secondary to significant dyspnea and leg fatigue. Reported substernal chest tightness at 2 minutes of exercise that resolved during recovery. PACs, PVC's and non- specific St-T changes during exercise.Recovered without complictions. See Myospect report for conclusive findings. Primary Diagnostic Code: NO ALERT REQUIRED Primary Interpreting Staff: ANIA ANDRADE APRN, Cardiology Verified by wound care physician for ANIA ANDRADE /ANIA ESPINOZA-CDD [facility] May 27, 2024 08:07 AM TC-99M FROM NON-HIGHLY ENRICHED URANIUM SOURCE: ERIK GALLEGO [id number] -1945 M Exm Date: MAY 27, 2024@08:07 Req Phys: LAURA STEINBERG Pat Loc: [employer] PROFESSOR (Req'g Loc) Img Loc: NUCLEAR MEDICINE Service: [place] [address] THIS IS AN AMENDED REPORT (Case [id number] COMPLETE) TC-99M FROM NON-HIGHLY ENRICHED U(NM Detailed) CPT:Q9969 Reason for Study: SEE CLINICAL HISTORY Clinical History: Cardiology approval by: Ania Andrade SERVICE CONNECTED? Yes Active Outpatient Medications (including Supplies): Active Outpatient Medications Status ===== 1) ACCU-CHEK GUIDE (GLUCOSE) TEST STRIP USE 1 STRIP TO TEST ACTIVE BLOOD SUGAR 3-4 TIMES WEEKLY 2) ALOH 160/MG CARB 105MG CHEW TAB CHEW 1 TABLET BY MOUTH AFTER ACTIVE MEALS NEEDED FOR INDIGESTION/REFLUX Indication: FOR STOMACH 3) AMLODIPINE BESYLATE 2.5MG TAB TAKE ONE TABLET BY MOUTH DAILY ACTIVE -DO NOT DRINK GRAPEFRUIT JUICE WHILE ON THIS DRUG Indication: FOR HIGH BLOOD PRESSURE 4) CHOLECALCIF 25MCG (D3-1,000UNIT) TAB TAKE FOUR TABLETS BY ACTIVE MOUTH DAILY FOR VITAMIN D SUPPLEMENT 5) CLOTRIMAZOLE 1% TOP SOLN APPLY SMALL AMOUNT TO AFFECTED AREA ACTIVE TWICE A DAY Indication: FOR FUNGAL INFECTION 6) CYANOCOBALAMIN 1000MCG TAB TAKE ONE TABLET BY MOUTH DAILY ACTIVE (S) Indication: FOR VITAMIN B12 SUPPLEMENT 7) DICLOFENAC NA 1% TOP GEL APPLY SMALL AMOUNT TO AFFECTED AREA ACTIVE EVERY 6 HOURS NEEDED FOR SHOULDER PAIN 8) FLUTICASONE PROP 50MCG 120D NASAL INHL USE 2 SPRAYS IN EACH ACTIVE NOSTRIL DAILY FOR NASAL ALLERGY 9) FUROSEMIDE 20MG TAB TAKE ONE TABLET BY MOUTH EVERY MORNING ACTIVE Indication: FOR FLUID 10) GABAPENTIN 300MG CAP TAKE ONE CAPSULE BY MOUTH EVERY MORNING ACTIVE AND TAKE ONE CAPSULE AT NOON AND TAKE TWO CAPSULES EVERY EVENING FOR PAIN Indication: FOR NERVE PAIN 11) LIDOCAINE 5% 5IN X 6IN PATCH APPLY 2 PATCHES TO SKIN DAILY ACTIVE -LEAVE ON 12 HOURS, THEN REMOVE FOR 12 HOURS Indication: FOR PAIN 12) LORATADINE 10MG TAB TAKE ONE TABLET BY MOUTH DAILY FOR ACTIVE (S) ALLERGIES 13) LOSARTAN 100MG TAB TAKE ONE TABLET BY MOUTH DAILY STOPPING ACTIVE THE HCTZ Indication: FOR BLOOD PRESSURE 14) MAGNESIUM OXIDE 420MG TAB TAKE ONE TABLET BY MOUTH TWICE A ACTIVE DAY Indication: FOR SUPPLEMENT 15) METFORMIN HCL 1000MG TAB TAKE ONE TABLET BY MOUTH TWICE A ACTIVE DAY FOR DIABETES 16) MIRTAZAPINE 15MG TAB TAKE ONE-HALF TABLET BY MOUTH AT ACTIVE (S) BEDTIME Indication: FOR SLEEP 17) MULTIVIT/OPHTH AREDS2/LUTE/ZEAX CAP/TAB TAKE 1 SOFTGEL BY ACTIVE (S) MOUTH TWICE A DAY AFTER MEALS Indication: FOR EYE HEALTH 18) MUPIROCIN 2% OINT APPLY SMALL AMOUNT TO AFFECTED AREA DAILY ACTIVE -APPLY DAILY TO TREATMENT SITES AFTER CLEANING. THIS IS A TOPICAL ANTIBIOTIC. Indication: TO PREVENT INFECTION 19) PANTOPRAZOLE NA 40MG EC TAB TAKE ONE TABLET BY MOUTH TWICE A ACTIVE DAY 30 MINUTES BEFORE A MEAL -TAKE ON AN EMPTY STOMACH. Indication: FOR STOMACH 20) PIOGLITAZONE HCL 30MG TAB TAKE ONE TABLET BY MOUTH DAILY FOR ACTIVE DIABETES Indication: FOR BLOOD SUGAR 21) PRAZOSIN HCL 1MG CAP TAKE ONE CAPSULE BY MOUTH AT BEDTIME ACTIVE TAKE IN ADDITION TO 5 MG CAPSULE FOR TOTAL OF 6 MG AT BEDTIME Indication: FOR NIGHTMARES. 22) PRAZOSIN HCL 5MG CAP TAKE ONE CAPSULE BY MOUTH AT BEDTIME ACTIVE (S) Indication: FOR NIGHTMARES 23) SERTRALINE HCL 100MG TAB TAKE ONE AND ONE-HALF TABLETS BY ACTIVE (S) MOUTH EVERY MORNING Indication: FOR MOOD 24) TRIAMCINOLONE ACETONIDE 0.1% OINT APPLY SMALL AMOUNT TO ACTIVE AFFECTED AREA TWICE A DAY Indication: FOR SKIN RASH WT: 213.5 lb [96.84 kg] (05/15/2024 10:57) HT: 70 in [177.8 cm] (05/15/2024 10:57) How do you want to stress the patient? Treadmill Do you want the patient to take their beta blockers for the exam? Yes History/Reason for Exam: CP Report Status: Verified Date Reported: JUN 05, 2024 Date Verified: JUN 05, 2024 Automation Application Engineer E-Sig: Report: [facility], [place], [place] STUDY: Treadmill Exercise SPECT Tc-99m myoview (tetrofosmin) myocardial perfusion imaging with gated SPECT and EF. Addendum: I have reviewed the extracardiac findings on the limited field of view low attenuation non-contrast chest CT. Small right pleural effusion. Ground glass opacities bilaterally possibly pulm edema. Chronic granulomatous disease Impression: 1. This is a probably normal nuclear stress test--poor exercise tolerance but no definite ischemia. 2. There was no clinical, hemodynamic, or electrocardiographic evidence for myocardial ischemia during exercise. 3. The Velez treadmill score represents intermediate risk for future cardiovascular events. 4. Perfusion: SPECT images demonstrate normal myocardial perfusion. 5. Function: Gated SPECT images demonstrate normal systolic function. 6. Compared to prior study from 07/15/21, there are no significant changes. 7. No significant coronary calcifications noted on non-contrast CT scan. CLINICAL INDICATION: General assessment of chest pain CLINICAL HISTORY: 78 year-old male who has no known history of coronary artery disease. Cardiac risk factors include: HTN, HLD, DM, JAYLA. TECHNIQUE: A one-day protocol was followed. 5.5 mCi of Tc-99m tetrofosmin were injected intravenously at rest. 45-90 minutes later, SPECT imaging of the heart was performed with tomographic and three-dimensional reconstructions with [employer] NM/CT 640 system. The patient performed treadmill exercise using a standard Cam protocol and completed 3 minutes 44 seconds; exercise was encouraged to continue for 1-2 minutes after achieving age-predicted target heart rate. 16.5 mCi of Tc-99m tetrofosmin injected intravenous immediately thereafter. 45-90 minutes later, post-stress SPECT imaging of the heart was performed with tomographic and three-dimensional reconstructions. Gated SPECT data were obtained to calculate left ventricular volumes and ejection fraction post-stress. Computed tomographic scan was acquired using 4-slice CT system after stress imaging, and attenuation-corrected images were generated from both data sets in addition to the conventional kib-gfuxlilfgqk-funlpkfss images. Both filtered back projection and iterative reconstructed images were available for review. Motion correction was not applied to the rest and/or post-stress acquisitions. FINDINGS: CLINICAL/HEMODYNAMIC/ECG SUMMARY: 1. This patient completed 3 minutes 44 seconds of exercise time achieving an estimated workload of 3.7 metabolic equivalents (METS). 2. The test was terminated due to fatigue. 3. The heart rate was 82 beats per minute at baseline and increased to a maximal 144 beats per minute, which was 102% of the age-predicted maximum predicted heart rate. 4. The resting blood pressure was 131/73 mmHg and increased to 189/98 mmHg, which is normal response to exercise. 5. The patient had mild non-limiting chest tightness, but did not develop clinically significant symptoms other than fatigue. 6. The resting electrocardiogram demonstrated normal sinus rhythm, RBBB. Subsequent stress ECGs did not show ST changes consistent with myocardial ischemia. 7. The rate-pressure double product was 27,216. 8. The Velez treadmill score was 0 (intermediate risk). 9. There were no significant arrhythmias. 10. The heart rate recovery was appropriate (>12bpm) SCINTIGRAPHIC FINDINGS: 1. There is no significant patient motion noted on the raw images. Extracardiac findings include normal radiotracer uptake by gallbladder. 2. The SPECT images demonstrate a normal left ventricular cavity with an estimated left ventricular end-diastolic volume of 84 mL (normal < 149 mL for males, < 102 mL for females). 3. There is no stress-induced transient ischemic dilation (TID) of the left ventricular cavity. 4. SPECT images: Attenuation-corrected and pzu-bcrzqbetklv-raqufeism SPECT images were evaluated. SPECT images demonstrate normal myocardial perfusion. There is a medium size, mild intensity defect located in the ianke-jk-yhyicy inferior myocardium . The defect is fixed and normalizes with attenuation-correction. The perfusion finding is best explained by soft tissue attenuation artifact. There is no definite myocardial ischemia. 5. The gated SPECT images demonstrate normal systolic function. Regional wall motion is normal 6. The calculated post-stress LVEF is 60%. Participating Fellow: Juan José Hernandez MD COMMUNICATION: Per this written report. ATTESTATION: I have personally reviewed the electrocardiograms and SPECT images with the participating physicians and agree with the report. 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 Yes Active Outpatient Medications (including Supplies): Active Outpatient Medications Status ===== 1) ACCU-CHEK GUIDE (GLUCOSE) TEST STRIP USE 1 STRIP TO TEST ACTIVE BLOOD SUGAR 3-4 TIMES WEEKLY 2) ALOH 160/MG CARB 105MG CHEW TAB CHEW 1 TABLET BY MOUTH AFTER ACTIVE MEALS NEEDED FOR INDIGESTION/REFLUX Indication: FOR STOMACH 3) AMLODIPINE BESYLATE 2.5MG TAB TAKE ONE TABLET BY MOUTH DAILY ACTIVE -DO NOT DRINK GRAPEFRUIT JUICE WHILE ON THIS DRUG Indication: FOR HIGH BLOOD PRESSURE 4) CHOLECALCIF 25MCG (D3-1,000UNIT) TAB TAKE FOUR TABLETS BY ACTIVE MOUTH DAILY FOR VITAMIN D SUPPLEMENT 5) CLOTRIMAZOLE 1% TOP SOLN APPLY SMALL AMOUNT TO AFFECTED AREA ACTIVE TWICE A DAY Indication: FOR FUNGAL INFECTION 6) CYANOCOBALAMIN 1000MCG TAB TAKE ONE TABLET BY MOUTH DAILY ACTIVE (S) Indication: FOR VITAMIN B12 SUPPLEMENT 7) DICLOFENAC NA 1% TOP GEL APPLY SMALL AMOUNT TO AFFECTED AREA ACTIVE EVERY 6 HOURS NEEDED FOR SHOULDER PAIN 8) FLUTICASONE PROP 50MCG 120D NASAL INHL USE 2 SPRAYS IN EACH ACTIVE NOSTRIL DAILY FOR NASAL ALLERGY 9) FUROSEMIDE 20MG TAB TAKE ONE TABLET BY MOUTH EVERY MORNING ACTIVE Indication: FOR FLUID 10) GABAPENTIN 300MG CAP TAKE ONE CAPSULE BY MOUTH EVERY MORNING ACTIVE AND TAKE ONE CAPSULE AT NOON AND TAKE TWO CAPSULES EVERY EVENING FOR PAIN Indication: FOR NERVE PAIN 11) LIDOCAINE 5% 5IN X 6IN PATCH APPLY 2 PATCHES TO SKIN DAILY ACTIVE -LEAVE ON 12 HOURS, THEN REMOVE FOR 12 HOURS Indication: FOR PAIN 12) LORATADINE 10MG TAB TAKE ONE TABLET BY MOUTH DAILY FOR ACTIVE (S) ALLERGIES 13) LOSARTAN 100MG TAB TAKE ONE TABLET BY MOUTH DAILY STOPPING ACTIVE THE HCTZ Indication: FOR BLOOD PRESSURE 14) MAGNESIUM OXIDE 420MG TAB TAKE ONE TABLET BY MOUTH TWICE A ACTIVE DAY Indication: FOR SUPPLEMENT 15) METFORMIN HCL 1000MG TAB TAKE ONE TABLET BY MOUTH TWICE A ACTIVE DAY FOR DIABETES 16) MIRTAZAPINE 15MG TAB TAKE ONE-HALF TABLET BY MOUTH AT ACTIVE (S) BEDTIME Indication: FOR SLEEP 17) MULTIVIT/OPHTH AREDS2/LUTE/ZEAX CAP/TAB TAKE 1 SOFTGEL BY ACTIVE (S) MOUTH TWICE A DAY AFTER MEALS Indication: FOR EYE HEALTH 18) MUPIROCIN 2% OINT APPLY SMALL AMOUNT TO AFFECTED AREA DAILY ACTIVE -APPLY DAILY TO TREATMENT SITES AFTER CLEANING. THIS IS A TOPICAL ANTIBIOTIC. Indication: TO PREVENT INFECTION 19) PANTOPRAZOLE NA 40MG EC TAB TAKE ONE TABLET BY MOUTH TWICE A ACTIVE DAY 30 MINUTES BEFORE A MEAL -TAKE ON AN EMPTY STOMACH. Indication: FOR STOMACH 20) PIOGLITAZONE HCL 30MG TAB TAKE ONE TABLET BY MOUTH DAILY FOR ACTIVE DIABETES Indication: FOR BLOOD SUGAR 21) PRAZOSIN HCL 1MG CAP TAKE ONE CAPSULE BY MOUTH AT BEDTIME ACTIVE TAKE IN ADDITION TO 5 MG CAPSULE FOR TOTAL OF 6 MG AT BEDTIME Indication: FOR NIGHTMARES. 22) PRAZOSIN HCL 5MG CAP TAKE ONE CAPSULE BY MOUTH AT BEDTIME ACTIVE (S) Indication: FOR NIGHTMARES 23) SERTRALINE HCL 100MG TAB TAKE ONE AND ONE-HALF TABLETS BY ACTIVE (S) MOUTH EVERY MORNING Indication: FOR MOOD 24) TRIAMCINOLONE ACETONIDE 0.1% OINT APPLY SMALL AMOUNT TO ACTIVE AFFECTED AREA TWICE A DAY Indication: FOR SKIN RASH WT: 213.5 lb [96.84 kg] (05/15/2024 10:57) HT: 70 in [177.8 cm] (05/15/2024 10:57) How do you want to stress the patient? Treadmill Do you want the patient to take their beta blockers for the exam? Yes History/Reason for Exam: CP Report Status: Verified Date Reported: JUN 05, 2024 Date Verified: JUN 05, 2024 Automation Application Engineer E-Sig: Report: [facility], [place], [place] STUDY: Treadmill Exercise SPECT Tc-99m myoview (tetrofosmin) myocardial perfusion imaging with gated SPECT and EF. Addendum: I have reviewed the extracardiac findings on the limited field of view low attenuation non-contrast chest CT. Small right pleural effusion. Ground glass opacities bilaterally possibly pulm edema. Chronic granulomatous disease Impression: 1. This is a probably normal nuclear stress test--poor exercise tolerance but no definite ischemia. 2. There was no clinical, hemodynamic, or electrocardiographic evidence for myocardial ischemia during exercise. 3. The Velez treadmill score represents intermediate risk for future cardiovascular events. 4. Perfusion: SPECT images demonstrate normal myocardial perfusion. 5. Function: Gated SPECT images demonstrate normal systolic function. 6. Compared to prior study from 07/15/21, there are no significant changes. 7. No significant coronary calcifications noted on non-contrast CT scan. CLINICAL INDICATION: General assessment of chest pain CLINICAL HISTORY: 78 year-old male who has no known history of coronary artery disease. Cardiac risk factors include: HTN, HLD, DM, JAYLA. TECHNIQUE: A one-day protocol was followed. 5.5 mCi of Tc-99m tetrofosmin were injected intravenously at rest. 45-90 minutes later, SPECT imaging of the heart was performed with tomographic and three-dimensional reconstructions with [employer] NM/CT 640 system. The patient performed treadmill exercise using a standard Cam protocol and completed 3 minutes 44 seconds; exercise was encouraged to continue for 1-2 minutes after achieving age-predicted target heart rate. 16.5 mCi of Tc-99m tetrofosmin injected intravenous immediately thereafter. 45-90 minutes later, post-stress SPECT imaging of the heart was performed with tomographic and three-dimensional reconstructions. Gated SPECT data were obtained to calculate left ventricular volumes and ejection fraction post-stress. Computed tomographic scan was acquired using 4-slice CT system after stress imaging, and attenuation-corrected images were generated from both data sets in addition to the conventional ixq-ncdfeuumnwo-jvthodwtg images. Both filtered back projection and iterative reconstructed images were available for review. Motion correction was not applied to the rest and/or post-stress acquisitions. FINDINGS: CLINICAL/HEMODYNAMIC/ECG SUMMARY: 1. This patient completed 3 minutes 44 seconds of exercise time achieving an estimated workload of 3.7 metabolic equivalents (METS). 2. The test was terminated due to fatigue. 3. The heart rate was 82 beats per minute at baseline and increased to a maximal 144 beats per minute, which was 102% of the age-predicted maximum predicted heart rate. 4. The resting blood pressure was 131/73 mmHg and increased to 189/98 mmHg, which is normal response to exercise. 5. The patient had mild non-limiting chest tightness, but did not develop clinically significant symptoms other than fatigue. 6. The resting electrocardiogram demonstrated normal sinus rhythm, RBBB. Subsequent stress ECGs did not show ST changes consistent with myocardial ischemia. 7. The rate-pressure double product was 27,216. 8. The Velez treadmill score was 0 (intermediate risk). 9. There were no significant arrhythmias. 10. The heart rate recovery was appropriate (>12bpm) SCINTIGRAPHIC FINDINGS: 1. There is no significant patient motion noted on the raw images. Extracardiac findings include normal radiotracer uptake by gallbladder. 2. The SPECT images demonstrate a normal left ventricular cavity with an estimated left ventricular end-diastolic volume of 84 mL (normal < 149 mL for males, < 102 mL for females). 3. There is no stress-induced transient ischemic dilation (TID) of the left ventricular cavity. 4. SPECT images: Attenuation-corrected and xxd-hmatqqzwsgo-ynvyssvma SPECT images were evaluated. SPECT images demonstrate normal myocardial perfusion. There is a medium size, mild intensity defect located in the oukis-bk-ryznxm inferior myocardium . The defect is fixed and normalizes with attenuation-correction. The perfusion finding is best explained by soft tissue attenuation artifact. There is no definite myocardial ischemia. 5. The gated SPECT images demonstrate normal systolic function. Regional wall motion is normal 6. The calculated post-stress LVEF is 60%. Participating Fellow: Juan José Hernandez MD COMMUNICATION: Per this written report. ATTESTATION: I have personally reviewed the electrocardiograms and SPECT images with the participating physicians and agree with the report. Primary Diagnostic Code: NO ALERT REQUIRED Primary Interpreting Staff: ERICA JOHNSON MD, CARDIOLOGY ATTENDING VERIFIED BY: Kerri Mena MD, Cardiology Attending /KERRI LONG-LOWELL [facility] May 27, 2024 08:07 AM CARD. 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 STRESS TEST W/TREADMILL/...(NM Detailed) CPT:58168 Reason for Study: SEE CLINICAL HISTORY Clinical History: Cardiology approval by: Ania Andrade SERVICE CONNECTED? Yes Active Outpatient Medications (including Supplies): Active Outpatient Medications Status ===== 1) ACCU-CHEK GUIDE (GLUCOSE) TEST STRIP USE 1 STRIP TO TEST ACTIVE BLOOD SUGAR 3-4 TIMES WEEKLY 2) ALOH 160/MG CARB 105MG CHEW TAB CHEW 1 TABLET BY MOUTH AFTER ACTIVE MEALS NEEDED FOR INDIGESTION/REFLUX Indication: FOR STOMACH 3) AMLODIPINE BESYLATE 2.5MG TAB TAKE ONE TABLET BY MOUTH DAILY ACTIVE -DO NOT DRINK GRAPEFRUIT JUICE WHILE ON THIS DRUG Indication: FOR HIGH BLOOD PRESSURE 4) CHOLECALCIF 25MCG (D3-1,000UNIT) TAB TAKE FOUR TABLETS BY ACTIVE MOUTH DAILY FOR VITAMIN D SUPPLEMENT 5) CLOTRIMAZOLE 1% TOP SOLN APPLY SMALL AMOUNT TO AFFECTED AREA ACTIVE TWICE A DAY Indication: FOR FUNGAL INFECTION 6) CYANOCOBALAMIN 1000MCG TAB TAKE ONE TABLET BY MOUTH DAILY ACTIVE (S) Indication: FOR VITAMIN B12 SUPPLEMENT 7) DICLOFENAC NA 1% TOP GEL APPLY SMALL AMOUNT TO AFFECTED AREA ACTIVE EVERY 6 HOURS NEEDED FOR SHOULDER PAIN 8) FLUTICASONE PROP 50MCG 120D NASAL INHL USE 2 SPRAYS IN EACH ACTIVE NOSTRIL DAILY FOR NASAL ALLERGY 9) FUROSEMIDE 20MG TAB TAKE ONE TABLET BY MOUTH EVERY MORNING ACTIVE Indication: FOR FLUID 10) GABAPENTIN 300MG CAP TAKE ONE CAPSULE BY MOUTH EVERY MORNING ACTIVE AND TAKE ONE CAPSULE AT NOON AND TAKE TWO CAPSULES EVERY EVENING FOR PAIN Indication: FOR NERVE PAIN 11) LIDOCAINE 5% 5IN X 6IN PATCH APPLY 2 PATCHES TO SKIN DAILY ACTIVE -LEAVE ON 12 HOURS, THEN REMOVE FOR 12 HOURS Indication: FOR PAIN 12) LORATADINE 10MG TAB TAKE ONE TABLET BY MOUTH DAILY FOR ACTIVE (S) ALLERGIES 13) LOSARTAN 100MG TAB TAKE ONE TABLET BY MOUTH DAILY STOPPING ACTIVE THE HCTZ Indication: FOR BLOOD PRESSURE 14) MAGNESIUM OXIDE 420MG TAB TAKE ONE TABLET BY MOUTH TWICE A ACTIVE DAY Indication: FOR SUPPLEMENT 15) METFORMIN HCL 1000MG TAB TAKE ONE TABLET BY MOUTH TWICE A ACTIVE DAY FOR DIABETES 16) MIRTAZAPINE 15MG TAB TAKE ONE-HALF TABLET BY MOUTH AT ACTIVE (S) BEDTIME Indication: FOR SLEEP 17) MULTIVIT/OPHTH AREDS2/LUTE/ZEAX CAP/TAB TAKE 1 SOFTGEL BY ACTIVE (S) MOUTH TWICE A DAY AFTER MEALS Indication: FOR EYE HEALTH 18) MUPIROCIN 2% OINT APPLY SMALL AMOUNT TO AFFECTED AREA DAILY ACTIVE -APPLY DAILY TO TREATMENT SITES AFTER CLEANING. THIS IS A TOPICAL ANTIBIOTIC. Indication: TO PREVENT INFECTION 19) PANTOPRAZOLE NA 40MG EC TAB TAKE ONE TABLET BY MOUTH TWICE A ACTIVE DAY 30 MINUTES BEFORE A MEAL -TAKE ON AN EMPTY STOMACH. Indication: FOR STOMACH 20) PIOGLITAZONE HCL 30MG TAB TAKE ONE TABLET BY MOUTH DAILY FOR ACTIVE DIABETES Indication: FOR BLOOD SUGAR 21) PRAZOSIN HCL 1MG CAP TAKE ONE CAPSULE BY MOUTH AT BEDTIME ACTIVE TAKE IN ADDITION TO 5 MG CAPSULE FOR TOTAL OF 6 MG AT BEDTIME Indication: FOR NIGHTMARES. 22) PRAZOSIN HCL 5MG CAP TAKE ONE CAPSULE BY MOUTH AT BEDTIME ACTIVE (S) Indication: FOR NIGHTMARES 23) SERTRALINE HCL 100MG TAB TAKE ONE AND ONE-HALF TABLETS BY ACTIVE (S) MOUTH EVERY MORNING Indication: FOR MOOD 24) TRIAMCINOLONE ACETONIDE 0.1% OINT APPLY SMALL AMOUNT TO ACTIVE AFFECTED AREA TWICE A DAY Indication: FOR SKIN RASH WT: 213.5 lb [96.84 kg] (05/15/2024 10:57) HT: 70 in [177.8 cm] (05/15/2024 10:57) How do you want to stress the patient? Treadmill Do you want the patient to take their beta blockers for the exam? Yes History/Reason for Exam: CP Report Status: Verified Date Reported: JUN 05, 2024 Date Verified: JUN 05, 2024 Automation Application Engineer E-Sig: Report: [facility], [place], [place] STUDY: Treadmill Exercise SPECT Tc-99m myoview (tetrofosmin) myocardial perfusion imaging with gated SPECT and EF. Addendum: I have reviewed the extracardiac findings on the limited field of view low attenuation non-contrast chest CT. Small right pleural effusion. Ground glass opacities bilaterally possibly pulm edema. Chronic granulomatous disease Impression: 1. This is a probably normal nuclear stress test--poor exercise tolerance but no definite ischemia. 2. There was no clinical, hemodynamic, or electrocardiographic evidence for myocardial ischemia during exercise. 3. The Velez treadmill score represents intermediate risk for future cardiovascular events. 4. Perfusion: SPECT images demonstrate normal myocardial perfusion. 5. Function: Gated SPECT images demonstrate normal systolic function. 6. Compared to prior study from 07/15/21, there are no significant changes. 7. No significant coronary calcifications noted on non-contrast CT scan. CLINICAL INDICATION: General assessment of chest pain CLINICAL HISTORY: 78 year-old male who has no known history of coronary artery disease. Cardiac risk factors include: HTN, HLD, DM, JAYLA. TECHNIQUE: A one-day protocol was followed. 5.5 mCi of Tc-99m tetrofosmin were injected intravenously at rest. 45-90 minutes later, SPECT imaging of the heart was performed with tomographic and three-dimensional reconstructions with [employer] NM/CT 640 system. The patient performed treadmill exercise using a standard Cam protocol and completed 3 minutes 44 seconds; exercise was encouraged to continue for 1-2 minutes after achieving age-predicted target heart rate. 16.5 mCi of Tc-99m tetrofosmin injected intravenous immediately thereafter. 45-90 minutes later, post-stress SPECT imaging of the heart was performed with tomographic and three-dimensional reconstructions. Gated SPECT data were obtained to calculate left ventricular volumes and ejection fraction post-stress. Computed tomographic scan was acquired using 4-slice CT system after stress imaging, and attenuation-corrected images were generated from both data sets in addition to the conventional sjg-nymubiegrix-nyosqkozi images. Both filtered back projection and iterative reconstructed images were available for review. Motion correction was not applied to the rest and/or post-stress acquisitions. FINDINGS: CLINICAL/HEMODYNAMIC/ECG SUMMARY: 1. This patient completed 3 minutes 44 seconds of exercise time achieving an estimated workload of 3.7 metabolic equivalents (METS). 2. The test was terminated due to fatigue. 3. The heart rate was 82 beats per minute at baseline and increased to a maximal 144 beats per minute, which was 102% of the age-predicted maximum predicted heart rate. 4. The resting blood pressure was 131/73 mmHg and increased to 189/98 mmHg, which is normal response to exercise. 5. The patient had mild non-limiting chest tightness, but did not develop clinically significant symptoms other than fatigue. 6. The resting electrocardiogram demonstrated normal sinus rhythm, RBBB. Subsequent stress ECGs did not show ST changes consistent with myocardial ischemia. 7. The rate-pressure double product was 27,216. 8. The Velze treadmill score was 0 (intermediate risk). 9. There were no significant arrhythmias. 10. The heart rate recovery was appropriate (>12bpm) SCINTIGRAPHIC FINDINGS: 1. There is no significant patient motion noted on the raw images. Extracardiac findings include normal radiotracer uptake by gallbladder. 2. The SPECT images demonstrate a normal left ventricular cavity with an estimated left ventricular end-diastolic volume of 84 mL (normal < 149 mL for males, < 102 mL for females). 3. There is no stress-induced transient ischemic dilation (TID) of the left ventricular cavity. 4. SPECT images: Attenuation-corrected and qux-ukponfhexhr-refskrjpo SPECT images were evaluated. SPECT images demonstrate normal myocardial perfusion. There is a medium size, mild intensity defect located in the sxdhb-yx-ykzsqo inferior myocardium . The defect is fixed and normalizes with attenuation-correction. The perfusion finding is best explained by soft tissue attenuation artifact. There is no definite myocardial ischemia. 5. The gated SPECT images demonstrate normal systolic function. Regional wall motion is normal 6. The calculated post-stress LVEF is 60%. Participating Fellow: Juan José Hernandez MD COMMUNICATION: Per this written report. ATTESTATION: I have personally reviewed the electrocardiograms and SPECT images with the participating physicians and agree with the report. Primary Diagnostic Code: NO ALERT REQUIRED Primary Interpreting Staff: ERICA JOHNSON MD, CARDIOLOGY ATTENDING VERIFIED BY: Kerri Mena MD, Cardiology Attending /[facility] May 15, 2024 09:57 AM CHEST TWO(2) VIEW PA&LAT: ERIK GALLEGO [id number] -1945 M Exm Date: MAY 15, 2024@09:57 Req Phys: LAURA STEINBERG Pat Loc: DEANNE PACT PHONE LULU LenzReq'g Img Loc: [facility] RAD[facility] Service: [place] [address] (Case [id number] COMPLETE)CHEST TWO(2) VIEW PA&LAT (RAD Detailed) CPT:48029 Reason for Study: dyspnea Clinical History: Report Status: Verified Date Reported: MAY 17, 2024 Date Verified: MAY 17, 2024 Automation Application Engineer E-Sig: Report: CHEST TWO(2) VIEW PA&LAT, 05/15/2024 10:02 AM EST INDICATION: dyspnea COMPARISON: April 16, 2024 Impression: Calcified granuloma right lung apex. No edema or pneumonia. No pleural effusion or pneumothorax. Heart size normal. No acute osseous abnormality. Primary Diagnostic Code: NO ALERT REQUIRED Primary Interpreting Staff: KAILYN STEELE, Staff Physician Verified by wound care physician for KAILYN STEELE /KAILYN AVILES [facility] Encounter Notes: All associated encounter notes This section contains the clinical notes associated to the Encounter. Date/Time Encounter Note(s) Provider Source May 29, 2024 03:01 PM RN PROGRESS NOTE: LOCAL TITLE: CCC: CLINICAL TRIAGE STANDARD TITLE: RN PROGRESS NOTE DATE OF NOTE: MAY 29, 2024@15:01:23 ENTRY DATE: MAY 29, 2024@15:01:23 AUTHOR: IONA WARD COSIGNER: URGENCY: STATUS: COMPLETED CCC: CLINICAL TRIAGE Has ADDENDA Patient Demographics Patient Name: ERIK GALLEGO Patient Primary Address: [place] [address] Patient Primary Phone: [phone] Patient : 1945 Patient Age: 78 Call Back Number: [phone] Caller/Recipient Relation to Patient: Self Caller Name: ERIK GALLEGO Emergency Contact: FEMI [facility] Screening Patient Stated Symptoms: says he's been dizzy abdominal swelling and short of breath and feel sick. when taking a deep breath he gets light headed x 2 days Triage Summary Conducted triage/discussed symptoms Pain Score: 7 (Moderate to Severe Pain) Utilized the Triage Tool: Yes Chief Complaint: Lightheadedness System WHEN: Now Nurse's Recommendation / WHEN: Now System WHERE: Emergency department Nurse's Recommendation / WHERE: ED Other Patient Disposition Patient/Caregiver agrees to plan of care: Yes Patient WHERE: ED Other Patient WHEN: Now Nursing Plan and Disposition Referred patient to higher level of care Instructed to go to Emergency Room (ER) Advised of Financial Disclaimer: Patient advised that recommendation for care provided during the call does not constitute an approval or authorization for payment by the OR or its staff. Patient advised to report a community ED visit to the [facility] Office of Community Care at within 72 hours. Advised of [place] [employer] [facility] Benefits Other course(s) of action Generated msg to PACT/Provider Nurse Summary Nurse Summary: Nathalia reports dizziness, abdominal swelling and short of breath and feels sick for past 2 days. He reports chest pain, pain score 7/10 when he takes a deep breath. Vet reports legs are swollen and he has taken Lasix today. He reports his family wants him to go to ER, System recommendation: now, ER Radhat will go to ER in [place], [place]. Note forward to PCP and CM for review. Clinical Contact Center Codes Clinic/Location: V9 DEANNE PHONE CCC RN DAYTIME Decision Support System Output: Triage Complete Triage Date: 05/29/2024, 02:50 PM Triage Note: Decision Support Tool Used: [employer] Phone Triage [place], 29 May 2024 19:41:19 +0000 [facility] Demographics 78 y/o Male Results CC: Lightheadedness Software suggested: Now Software suggested follow-up location: Emergency department Values and Measures Duration of CC: 2 Days Positive Responses HPI: chest pain HPI: dyspnea, with chest pain VS: BP not taken VS: pulse not taken Negative Responses Denies: HPI: abdominal pain Denies: HPI: chest pain, crushing quality Denies: HPI: chest pain, severe Denies: HPI: chest pain, squeezing quality Denies: HPI: chest pain, tightness quality Denies: HPI: chest pressure, heavy quality Denies: HPI: cough, new or worsening Denies: HPI: diaphoresis, with chest pain Denies: HPI: difficulty walking, new or worsening Denies: HPI: dizziness, triggered by head motion Denies: HPI: syncope Denies: HPI: vertigo Denies: PMH: angina Denies: PMH: heart attack IMPORTANT: This note was created by [facility] Clinical Contact Center staff. Please do not alert the staff member by adding them as a signer for future communications. Alerts are not monitored by this user. /peyton/ IONA WARD Daytime alliances consultant Signed: 05/29/2024 15:01 Receipt Acknowledged By: 05/29/2024 15:14 /es/ MERE VELEZ Registered Nurse 05/29/2024 16:12 /es/ Laura Steinberg MD Primary Care Physician 05/30/2024 ADDENDUM STATUS: COMPLETED Addendum: CCC f/u, Per Transfer Nurse note [place] presented to local ER on 05/29/24 /peyton/ IONA WARD Daytime alliances consultant Signed: 05/30/2024 11:51 [facility]
--- OUTSIDE RECORDS SUMMARY | 2024-07-24 21:22 | XMS_ITS ---
Author Name [facility] [place] [facility] [place] Address [address] [place] [address] Care Team Providers Care Loading Rack Supervisor Name Role Phone LAURA MCKEON Primary Care [...] PART A Oct 14, 2009 PART A [id number] [phone] Alex GALLEGO PATIENT MEDICARE (WNR) MEDICARE (M) PART B Oct 14, 2009 PART B [id number] Alex GALLEGO PATIENT MEDICARE (WNR) MEDICARE (M) PART A Oct 14, 2009 PART A [id number] Alex GALLEGO PATIENT MEDICARE (WNR) MEDICARE (M) PART B Oct 14, 2009 PART B [id number] [phone] Alex GALLEGO PATIENT MEDICARE (WNR) MEDICARE (M) PART A Oct 14, 2009 PART A [id number] Alex GALLEGO PATIENT MEDICARE (WNR) MEDICARE (M) PART B Oct 14, 2009 PART B [id number] Alex GALLEGO PATIENT Selected Encounter This section includes the information on record at [place] for the Encounter. Date/Time Encounter Type Encounter Description Reason Pro vider Source Jan 30, 2024 10:52 AM Outpatient Encounter MEDICAL/SURGICAL DAY UNIT [facility] Encounter Template Text not used by [facility] Plan of Treatment: Future Appointments (+ 6 months) and Future Tests (+/- 45 days) The Plan of Treatment section includes future care activities for the patient from all [place] treatmentfacilities. This section includes future appointments and future orders which are active, pending or scheduled. Future Appointments This section includes appointments that were scheduled to occur 6 months from the date of the Encounter, up to a maximum of 20 appointments. The data comes from all [place] treatment facilities. Appointment Date/Time Appointment Type Appointme nt Facility Name Feb 14, 2024 08:30 AM [facility] Feb 14, 2024 10:00 AM [facility] Feb 27, 2024 02:00 PM AMBULATORY - NONE [facility] Feb 28, 2024 01:30 PM [facility] [facility] Feb 28, 2024 02:30 PM AMBULATORY - REHAB [facility] Feb 29, 2024 09:20 [facility] Mar 04, 2024 09:00 AM AMBULATORY - [facility]ATRY [facility] Mar 17, 2024 01:00 PM [facility] - [facility] [place] [facility] Mar 18, 2024 08:30 AM AMBULATORY - REHAB MEDICIN E [facility] Mar 18, 2024 10:00 AM [facility] [place] [facility] Mar 28, 2024 08:00 [facility] Apr 01, 2024 10:00 AM [facility] Apr 15, 2024 09:00 AM AMBULATORY - [facility]RY [facility] Apr 16, 2024 11:35 AM AM[facility]ULATORY - MEDICINE [facility] Apr 25, 2024 08:30 AM [facility] - SURG[facility] Apr 29, 2024 10:00 AM AMBULATORY - MEDICINE [facility] May 06, 2024 10:00 AM [facility]UL[facility]IATRY [facility] May 07, 2024 10:00 AM AMBULATORY - MEDICINE [facility] May 15, 2024 10:30 AM AMBULATORY - REHAB MEDICIN E [facility] May 20, 2024 08:00 AM AM[facility]ULATORY - NONE [facility] Lab Results: +/- 30 days of the [...] Unit Interpretation Reference Range Specimen Type Comment Feb 14, 2024 10:41 AM [facility] N MICROALBUMIN/CREAT RATIO URINE Specimen Type: URINE No comment entered. Ordering Provider: LAURA MCKEON Report Released Date/Time: Feb 14, 2024 09:03 AM Reporting Lab: [address] [address] Performing Lab: [address] [address] CREATININE 133.0 mg/dL MICROALBUMIN QUANT 5.8 mg/L 0.0-30.0 .MICROALBUMIN/CREA RATIO 4.4 ug/mg{creat} Feb 14, 2024 10:41 AM [facility] DRUG SCREEN EXPANDED IN-HOUSE URINE Specimen Type: URINE Comment: Screening method results are unconfirmed and are for medical use only. Unconfirmed screening results must not be used for non-medical purposes. Opiates test most sensitive for morphine, codeine and heroin and less sensitive for hydrocodone and hydromorphone where higher concentrations are needed for cut-off detection. Drugs of abuse screening is a preliminary analytical test result. A more specific alternate chemical method (GC/MS) must be used to obtain a confirmed analytical result. This assay provides a preliminary unconfirmed analytical test result that may be suitable for clinical management of patients in certain situations. Drug-test results should be interpreted in the context of clinical information. Patient metabolic characteristics can affect test outcome. Ordering Provider: LAURA MCKEON Report Released Date/Time: Feb 14, 2024 09:03 AM Reporting Lab: [address] [address] Performing Lab: [address] [address] TETRAHYDROCANNABINOL SCREEN NEG Cuto ff < 50 AMPHETAMINE SCR NEG Cutoff < 1000 BARBITURATES SCR NEG Cutoff < 200 BENZODIAZEPINES SCR NEG Cutoff < 200 COCAINE METABOLITE SCR NEG Cutoff < 300 OPIATES SCR NEG Cutoff < 300 METHADONE SCR NEG Cutoff < 300 OXYCODONE SCR NEG Cutoff < 200 BUPRENORPHINE SCR IN-HOUSE NEG Cutof f < 5 FENTANYL SCREEN IN-HOUSE NEG Cutoff < 1 Feb 14, 2024 10:19 AM [facility] LIPID PROFILE PLASMA Specimen Type: PLASM A Comment: Estimated [...] G4 Severe decrease <15 G5 Kidney failure Vitamin B12 test may not yield results when protein level of sample is too elevated. Ordering Provider: LAURA MCKEON Report Released Date/Time: Feb 14, 2024 09:03 AM Reporting Lab: [address] [address] Performing Lab: [address] [address] CHOLESTEROL 161 mg/dL 0-199 TRIGLYCERIDE 84 mg/dL 0-149 HDL CHOLESTEROL 54 mg/dL 40-69 DIRECT LDL CHOL. 95 mg/dL 0-100 Feb 14, 2024 10:19 AM [facility] GLYCOHEMOGLOBIN BLOOD Specimen Type: BLOOD Comment: [facility] guidelines for A1c interpretation: Glycemic control targets are based on Shared Decision Making between clinicians and patients. Criteria used to establish an A1c target recommendation can be found at https://www.ks.gov/qualityandpatientsafety/ and include the use of result accuracy and precision(CV) of the A1c tests clinicians utilize at their own sites of practice. Values obtained from A1C measurements can vary. For typical A1C assays, a reported value of 7.0 could actually be between 6.72 and 7.28 if measured by a reference method. A reported value of 9.0 could actually be between 8.73 and 9.27. Ref: https://ngsp.org/CAPdata.asp. The in-house [employer]-Flow[employer] D-100 analyzer has a historical CV <= 2%. Contact the laboratory for further performance characteristics of this assay. Ordering Provider: LAURA MCKEON Report Released Date/Time: Feb 14, 2024 09:03 AM Reporting Lab: [address] [address] Performing Lab: [facility] [address] [facility] [address] GLYCOHEMOGLOBIN 6.0 4.4-6.4 Feb 14, 2024 10:19 AM [facility] B12 VITAMIN PLASMA Specimen Type: PLASM A Comment: Estimated [...] G4 Severe decrease <15 G5 Kidney failure Vitamin B12 test may not yield results when protein level of sample is too elevated. Ordering Provider: MCKEON,LAURA K Report Released Date/Time: Feb 14, 2024 09:03 AM Reporting Lab: [facility] [address] [facility] [address] Performing Lab: [address] [address] B12 VITAMIN 761 pg/mL 213-816 Feb 14, 2024 10:19 AM [facility] PLASMA Specimen Type: PLASM A Comment: Estimated [...] G4 Severe decrease <15 G5 Kidney failure Vitamin B12 test may not yield results when protein level of sample is too elevated. Ordering Provider: LAURA MCKEON Report Released Date/Time: Feb 14, 2024 09:03 AM Reporting Lab: [address] [address] Performing Lab: [address] [address] CREATININE 1.38 mg/dL H 0.72-1.25 UREA NITROGEN 19 mg/dL 9-25 GLUCOSE 142 mg/dL H 74-100 SODIUM 142 mmol/L 136-145 POTASSIUM 4.7 mmol/L 3.5-5.1 CHLORIDE 103 mmol/L 98-107 CO2 29 mmol/L 22-29 CALCIUM 10.8 mg/dL H 8.4-10.2 TOTAL PROTEIN 7.5 g/dL 6.4-8.3 ALBUMIN 4.6 g/dL 3.5-5.2 TOTAL BILIRUBIN 1.3 mg/dL H 0.2-1.2 AST 24 U/L 5-34 ALT 22 U/L 0-55 ANION GAP 10 meq/L 3-19 ALK PHOS 75 U/L 40-150 eGFR (CKD-EPI) 52 Feb 14, 2024 10:19 AM [facility] TSH PLASMA Specimen Type: PLASM A Comment: Estimated [...] <15 G5 Kidney failure Ordering Provider: LAURA MCKEON Report Released Date/Time: Feb 14, 2024 09:03 AM Reporting Lab: [address] [address] Performing Lab: [address] [address] TSH 1.1076 m[IU]/mL 0.3500-4.9400 Feb 14, 2024 10:19 AM [facility] CBC/PLT BLOOD Specimen Type: BLOOD No comment entered. Ordering Provider: LAURA MCKEON Report Released Date/Time: Feb 14, 2024 09:03 AM Reporting Lab: [address] [address] Performing Lab: [address] [address] WBC 6.7 10*3/uL 5.0-10.0 RBC 5.17 10*6/uL 4.6-6.2 HGB 15.8 g/dL 14.0-18.0 HCT 47.1 42.0-52.0 MCV 91.1 fL 80.0-94.0 MCH 30.6 pg 27.0-31.0 MCHC 33.5 g/dL 32.0-36.0 PLT 257 10*3/uL 150-450 MPV 10.5 fL 9.0-13.1 RDW 14.4 11.0-16.0 NRBC 0.0 0.0-0.0 Feb 14, 2024 10:19 AM [facility] 25-OH VITAMIN D SERUM Specime n Type: SERUM Comment: The National Institutes of Health (NIH) recommendations state: <12 ng/mL - Deficient 20 - 50 ng/mL - Optimal Levels - adequate for most people. >50 ng/mL - Increased risk of hypercalciuria/other health problems - clinical correlation is required. These reference ranges represent clinical decision values rather than population-based reference values. Ordering Provider: LAURA MCKEON Report Released Date/Time: Feb 14, 2024 09:03 AM Reporting Lab: [address] [address] Performing Lab: [address] [address] 25-OH VITAMIN D 42.5 ng/mL 20.0-50.0 Jan 31, 2024 11:09 AM [facility] GLUCOSE-HAND MONITOR CAPILLARY Specime n Type: CAPILLARY Comment: $ Test performed by: [id number] Meter #: [id number] Ordering Provider: PELON CHEUNG Report Released Date/Time: Feb 04, 2024 07:19 AM Reporting Lab: [address] [address] Performing Lab: [address] [address] GLUCOSE-HAND MONITOR 125 mg/dL H 71-99 Pathology Reports: +/- 30 days of the [...] the Encounter. The data comes from all [place] treatment facilities. Date/Time Pathology Report Provider Source Feb 05, 2024 03:20 PM LR SURGICAL PATHOL OGY REPORT: LOCAL TITLE: LR SURGICAL PATHOLOGY REPORT DATE OF NOTE: FEB 05, 2024@15:20:14 ENTRY DATE: FEB 05, 2024@15:20:14 AUTHOR: ROSS DOBSON EXP COSIGNER: URGENCY: STATUS: COMPLETED $APHDR Reporting Lab: [facility] [IA# [id number]] [address] [place] [address] - - - - - - - [...] - - PATHOLOGY REPORT Accession No. [id number] - - - - - - - - - - - - - - - - - - - - - - - - - - - - - - - - - - - - - - - - $TEXT Submitted by: SONG Date obtained: Jan 31, 2024 14:21 - - - - - - - - - - - - - - - - - - - - - - - - - - - - - - - - - - - - - - - - Specimen (Received Jan 31, 2024 14:22): RIGHT LONG FINGER CYST - - - - - - - - - - - - - - - - - - - - - - - - - - - - - - - - - - - - - - - - BRIEF CLINICAL HISTORY: NOT GIVEN. - - - - - - - - - - - - - - - - - - - - - - - - - - - - - - - - - - - - - - - - PREOPERATIVE DIAGNOSIS: RIGHT LONG FINGER MUCOUS CYST - - - - - - - - - - - - - - - - - - - - - - - - - - - - - - - - - - - - - - - - OPERATIVE FINDINGS: PROCEDURE - EXCISION OF RIGHT LONG FINGER MUCOUS CYST. FINDINGS - NOT GIVEN. - - - - - - - - - - - - - - - - - - - - - - - - - - - - - - - - - - - - - - - - POSTOPERATIVE DIAGNOSIS: RIGHT LONG FINGER MUCOUS CYST Surgeon/physician: PELON CHEUNG Attending Surgeon: Pelon Cheung =-=-=-=-=-=-=-=-=-=-=-=-=-=-= -=-=-=-=-=-=-=-=-=-=-=-=-=-=- =-=-=-=-=-=-=-=-=-=-= - - - - - - - - - - - - - - - - - - - - - - - - - - - - - - - - - - - - - - - - PATHOLOGY REPORT Accession No. [id number] - - - - - - - - - - - - - - - - - - - - - - - - - - - - - - - - - - - - - - - - Pathology Resident: EHSAN BARBOZA The specimen is received in formalin labeled right long finger cyst and consists of a 0.4 x 0.7 x 0.3 cm ulrich/pink soft tissue fragment with attached skin ellipse. The cut surface is ulrich/pink, slightly hemorrhagic and inked blue. Sectioning reveals a ulrich/white grossly unremarkable cut surface. The specimen is entirely submitted in one cassette. CPT CODE - 71471 MICROSCOPIC EXAM/DIAGNOSIS: Right long finger cyst, excision: -Findings consistent with digital mucous cyst. /peyton/ Ross Dobson MD Pathologist Signed Feb 05, 2024@15:20 Performing Laboratory: Surgical Pathology Report Performed By: [facility] [CLIA# [id number]] [address] [place] [phone] $FTR - - - - - - - - - - - - - - - - - - - - - - - - - - - - - - - - - - - - - - - - (End of report) ROSS DOBSON MD [facility] Date Feb 05, 2024 - - - - - - - - - - - - - - - - - - - - - - - - - - - - - - - - - - - - - - - - ERIK GALLEGO STANDARD FORM 515 ID:[id number] SEX:M :1945 AGE: 78 LOC:PATH PCP: Laura Mckeon MD /peyton/ Ross Dobson MD Pathologist Signed: 02/05/2024 15:20 ROSS DOBSON-D [facility] Jan 31, 2024 12:13 PM LR SURGICAL PATHOL OGY REPORT: LOCAL TITLE: LR SURGICAL PATHOLOGY REPORT DATE OF NOTE: JAN 31, 2024@12:13:13 ENTRY DATE: JAN 31, 2024@12:13:13 AUTHOR: JUDY SIGALA EXP COSIGNER: URGENCY: STATUS: COMPLETED $APHDR Reporting Lab: [facility] [IA# [id number]] [address] [place] [address] - - - - - - - - - - - - - - - - - - - - - - - - - - - - - - - - - - - - - - - - MEDICAL RECORD MOHS - - - - - - - - - - - - - - - - - - - - - - - - - - - - - - - - - - - - - - - - PATHOLOGY REPORT Accession No. [id number] - - - - - - - - - - - - - - - - - - - - - - - - - - - - - - - - - - - - - - - - $TEXT Submitted by: JUDY SIGALA Date obtained: Jan 22, 2024 - - - - - - - - - - - - - - - - - - - - - - - - - - - - - - - - - - - - - - - - Specimen (Received Jan 22, 2024): MOHS - - - - - - - - - - - - - - - - - - - - - - - - - - - - - - - - - - - - - - - - BRIEF CLINICAL HISTORY: MOHS EXCISION BIOPSY ACCESSION NO. 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 - - - - - - - - - - - - - - - - - - - - - - - - - - - - - - - - - - - - - - - - POSTOPERATIVE DIAGNOSIS: MOHS MICROGRAPHICALLY CONTROLLED EXCISION OF SQUAMOUS CELL CARCINOMA IN 1 STAGE(S), SIZE 1.4 X 1 CM. Surgeon/physician: JUDY SIGALA MD =-=-=-=-=-=-=-=-=-=-=-=-=-=-= -=-=-=-=-=-=-=-=-=-=-=-=-=-=- =-=-=-=-=-=-=-=-=-=-= - - - - - - - - - - - - - - - - - - - - - - - - - - - - - - - - - - - - - - - - PATHOLOGY REPORT Accession No. [id number] - - - - - - - - - - - - - - - - - - - - - - - - - - - - - - - - - - - - - - - - STAGE I: A 2-3 MM RIM OF NORMAL APPEARING SKIN WAS MARKED CIRCUMFERENTIALLY AROUND THE SURGICAL DEFECT. THE AREA THUS OUTLINED WAS EXCISED DEEP. THE SPECIMEN WAS ORIENTED, SUBDIVIDED INTO 1 SECTION(S), MARKED WITH DYE ACCORDING TO THE ROUTINE MOHS TECHNIQUE, AND SUBMITTED FOR HORIZONTAL FROZEN SECTIONS. UPON REVIEW OF THE HORIZONTAL FROZEN SECTIONS OF STAGE I, NO RESIDUAL TUMOR WAS IDENTIFIED. THE FINAL DEFECT SIZE WAS 1.4 X 1 CM AND THE TOTAL NUMBER OF MICROSCOPIC SECTIONS WAS 1. INITIAL DEFECT: 0.4 CM FINAL DEFECT SIZE: 1.4 X 1 CM STAGE I DIAGNOSIS: NO RESIDUAL SQUAMOUS CELL CARCINOMA LEFT PREAURICULAR CHEEK. CPT CODE: 07140 I ACTED BOTH THE SURGEON AND THE PATHOLOGIST FOR THIS CASE. PLEASE SEE CORRESPONDING MOHS NOTE IN CPRS AND MOHS MAP SCANNED TO [employer]. /es/ JUDY SIAGLA Chief, Dermatology Signed Jan 31, 2024@12:13 Performing Laboratory: Surgical Pathology Report Performed By: [facility] [CLIA# [id number]] [address] [place] [phone] $FTR - - - - - - - - - - - - - - - - - - - - - - - - - - - - - - - - - - - - - - - - (End of report) JUDY SIGALA MD [facility] Date Jan 22, 2024 - - - - - - - - - - - - - - - - - - - - - - - - - - - - - - - - - - - - - - - - ERIK GALLEGO STANDARD FORM 515 ID:[id number] SEX:M :1945 AGE: 78 LOC:DERM PCP: Laura Mckeon MD /peyton/ JUDY SIGALA Chief, Dermatology Signed: 01/31/2024 12:13 JUDY SIGALAJoseph [facility] Encounter Notes: All associated encounter notes This section contains the clinical notes associated to the Encounter. Date/Time Encounter Note(s) Provider Source Jan 30, 2024 10:52 AM NURSING NOTE: LOCAL TITLE: NURSING NOTE STANDARD TITLE: NURSING NOTE DATE OF NOTE: JAN 30, 2024@10:52 ENTRY DATE: JAN 30, 2024@10:52:58 AUTHOR: JOSEY BURR EXP COSIGNER: URGENCY: STATUS: COMPLETED SPOKE WITH PATIENT TODAY AT 1051. 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 PATIENT DENIES BEING EXPOSED TO COVID TO HIS KNOWLEDGE. PATIENT DENIES HAVING ANY IMPLANTED ELECTRONIC DEVICES. PATIENT VOICED UNDERSTANDING AND HAD NO QUESTIONS /peyton/ LIGIA SPENCER RN CNOR OR NURSE RELATIONSHIP COUNSELOR - SURGICAL SERVICES Signed: 01/30/2024 10:54 JOSEY BURRJoseph [facility]
--- OUTSIDE RECORDS SUMMARY | 2024-07-24 21:23 | XMS_ITS ---
Author Name [facility] [facility] Address [address] [place] [id number] Care Team Providers Care Fire Controlman Name Role Phone LAURA MCKEON Primary Care [...] PART A Oct 14, 2009 PART A [id number] Alex GALLEGO PATIENT MEDICARE (WNR) MEDICARE (M) PART B Oct 14, 2009 PART B [id number] Alex GALLE[place] PATIENT MEDICARE (WNR) MEDICARE (M) PART A Oct 14, 2009 PART A [id number] Alex GALLEGO PATIENT MEDICARE (WNR) MEDICARE (M) PART B Oct 14, 2009 PART B [id number] [phone] [id number] Alex GALLEGO PATIENT MEDICARE (WNR) MEDICARE (M) PART A Oct 14, 2009 PART A [id number] Alex GALLEGO PATIENT MEDICARE (WNR) MEDICARE (M) PART B Oct 14, 2009 PART B [id number] Alex GALLEGO PATIENT Selected Encounter This section includes the information on record at [place] for the Encounter. Date/Time Encounter Type Encounter Description Reason Pro vider Source Jul 24, 2024 03:48 PM Outpatient Encounter ADMIN PAT ACTIVTIES (MASNONCT) [facility] Encounter Template Text not used by [facility] Plan of Treatment: Future Appointments (+ 6 months) and Future Tests (+/- 45 days) The Plan of Treatment section includes future care activities for the patient from all [place] [facility]. This section includes future appointments and future orders which are active, pending or scheduled. Future Appointments This section includes appointments that were scheduled to occur 6 months from the date of the Encounter, up to a maximum of 20 appointments. The data comes from all [place] treatment facilities. Appointment Date/Time Appointment Type Appointme nt Facility Name Aug 05, 2024 09:00 AM AMBULATORY - MEDICINE [facility] Aug 11, 2024 10:00 AM AMBULATORY - PSYCHIATRY [facility] Aug 12, 2024 09:00 AM AMBULATORY - MEDICINE [facility] August 18, 2024 09:00 AM [facility] September 02, 2024 08:20 AM [facility] Oct 01, 2024 09:00 AM AMBULATORY - NONE [facility] Oct 30, 2024 09:00 AM AMBULATORY - PS[facility]CHIATRY [facility] Dec 09, 2024 08:00 AM AMBULATORY - NONE [facility] Dec 31, 2024 08:30 AM AMBULATORY - MEDICINE [facility] Jan 16, 2025 08:00 AM AMBULATORY - NONE [facility] Lab Results: +/- 30 days of the encounter This section includes the Chemistry and Hematology Lab Results on record with [place] for the patient. Radiology Reports and Pathology Reports are provided separately, in subsequent sections. Lab Results This section contains the Chemistry/Hematology Results that were resulted 30 days before or 30 daysafter the date of the Encounter. Date/Time Source Result Type Result - Unit Interpretation Reference Range Specimen Type Comment Jun 30, 2024 03:27 PM [facility] BNP (STODDARD) PLASMA Specimen Type: PLASMA Comment: BNP results less than or equal to 100 pg/ml are corporate sales representative of normal values in patients without CHF. BNP results greater than 100 pg/ml are considered abnormal and suggestive of CHF. Higher BNP concentrations in the first 72 hours after Acute Coronary Syndrome are associated with an increased risk of , myocardial infarction and CHF. Ordering Provider: SACHI SAINZ Report Released Date/Time: Jun 30, 2024 03:21 PM Reporting Lab: [facility] [address] [facility] [id number] Performing Lab: [facility] [address] [facility] [id number] BNP (STODDARD) 22 pg/mL 0-100 Jun 30, 2024 03:27 PM [facility] PANEL 1 PLASMA Specimen Type: PLASM A [...] Jun 30, 2024 03:21 PM Reporting Lab: [address] [address] Performing Lab: [address] [address] CREATININE 1.43 mg/dL H 0.72-1.25 UREA NITROGEN 22 mg/dL 9-25 GLUCOSE 164 mg/dL H 74-100 SODIUM 139 mmol/L 136-145 POTASSIUM 3.7 mmol/L 3.5-5.1 CHLORIDE 102 mmol/L 98-107 CO2 27 mmol/L 22-29 CALCIUM 9.8 mg/dL 8.4-10.2 ANION GAP 10 meq/L 3-19 eGFR (CKD-EPI) 50 Jun 30, 2024 03:27 PM [facility] CBC/PLT BLOOD Specimen Type: BLOOD No comment entered. Ordering Provider: SACHI SAINZ Report Released Date/Time: Jun 30, 2024 03:21 PM Reporting Lab: [address] [address] Performing Lab: [address] [address] WBC 7.2 10*3/uL 5.0-10.0 RBC 4.85 10*6/uL 4.6-6.2 HGB 14.7 g/dL 14.0-18.0 HCT 43.8 42.0-52.0 MCV 90.3 fL 80.0-94.0 MCH 30.3 pg 27.0-31.0 MCHC 33.6 g/dL 32.0-36.0 PLT 235 10*3/uL 150-450 MPV 10.6 fL 9.0-13.1 RDW 14.8 11.0-16.0 NRBC 0.0 0.0-0.0 Pathology Reports: +/- 30 days of the [...] the Encounter. The data comes from all [place] treatment facilities. Date/Time Pathology Report Provider Source Jul 10, 2024 09:41 AM [facility] SUR[facility] PATHOL OGY REPORT: LOCAL TITLE: LR SURGICAL PATHOLOGY REPORT DATE OF NOTE: JUL 10, 2024@09:41:15 ENTRY DATE: JUL 10, 2024@09:41:15 AUTHOR: JOE LEUNG COSIGNER: URGENCY: STATUS: COMPLETED $APHDR Reporting Lab: [facility] [[facility]# [id number]] [address] [place] [id number] - - - - - - - [...] - - - - $TEXT Submitted by: DERM Date obtained: Jul 08, 2024 - - [...] left earlobe and consists of an unoriented, ueg-vzcs-qstswaz, yellow/white shave of skin measuring 0.5 x 0.4 x 0.2 cm. A rough papule is identified over the skin surface measuring 0.4 x 0.3 cm. The cut surface is yellow/white and grossly unremarkable. The cut surface is inked blue. The specimen is bisected to reveal a white solid interior. The specimen is submitted entirely in a single cassette. 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 /[place]/ JOE LEUNG pathologist Signed Jul 10, 2024@09:41 Performing Laboratory: Surgical Pathology Report Performed By: [facility] [CLIA# [id number]] [address] [place] [address] $FTR - - - - - - - - - - - - - - - - - - - - - - - - - - - - - - - - - - - - - - - - (End of report) JOE LEUNG MD [facility] Date Jul 10, 2024 - - - - - - - - - - - - - - - - - - - - - - - - - - - - - - - - - - - - - - - - ERIK GALLEGODAVID STANDARD FORM 515 ID:[id number] SEX:M :[id number] AGE: 78 LOC:PATH PCP: Laura Mckeon MD /[place]/ JOE LEUNG pathologist Signed: 07/10/2024 09:41 [facility] Encounter Notes: All associated encounter notes This section contains the clinical notes associated to the Encounter. Date/Time Encounter Note(s) Provider Source Jul 24, 2024 03:48 PM ADMINISTRATIVE NOT E: LOCAL TITLE: CLERICAL/ADMIN NOTE STANDARD TITLE: ADMINISTRATIVE NOTE DATE OF NOTE: JUL 24, 2024@15:48 ENTRY DATE: JUL 24, 2024@15:48:46 AUTHOR: STACIE DELGADO EXP COSIGNER: URGENCY: STATUS: COMPLETED scheduled at front desk clerk for f/u--fu 3 months, 1 hr please 07/24/24 RTC. PID 10/30/24 vet agreeable/scheduled on 10/30/24 @9am w/stopper maker#3 ltr mailed /[place]/ STACIE DELGADO Signed: 07/24/2024 15:49 STACIE DELGADO [facility]
--- OUTSIDE RECORDS SUMMARY | 2024-07-24 21:23 | XMS_ITS | Encounter Summary ---
Author Name [facility] [place] [facility] [place] [facility] [place] Address [address] [place] [address] Care Team Providers Care Header Operator Name Role Phone LAURA STEINBERG Primary Care Provider Unavailabl e Insurance Providers: [...] PART A Oct 14, 2009 PART A [id number] Alex GALLEGO PATIENT MEDICARE (WNR) MEDICARE (M) PART B Oct 14, 2009 PART B [id number] [phone] Alex GALLEGO PATIENT MEDICARE (WNR) MEDICARE (M) PART A Oct 14, 2009 PART A [id number] [phone] Alex GALLEGO PATIENT MEDICARE (WNR) MEDICARE (M) PART B Oct 14, 2009 PART B [id number] Alex GALLEGO PATIENT MEDICARE (WNR) MEDICARE (M) PART B Oct 14, 2009 PART B [id number] Alex GALLEGO PATIENT MEDICARE (WNR) MEDICARE (M) PART A Oct 14, 2009 PART A [id number] Alex GALLEGO PATIENT Selected Encounter This section includes the information on record at [place] for the Encounter. Date/Time Encounter Type Encounter Description Reason Provider Source Jun 06, 2024 04:38 PM Outpatient Encounter PRIMARY CARE/MEDICINE CRISTY VELEZ IHJennifer Encounter Template Text not used by [place] Plan of Treatment: Future Appointments (+ 6 months) and Future Tests (+/- 45 days) The Plan of Treatment section includes future care activities for the patient from all [place] treatmentfacilities. This section includes future appointments and future orders which are active, pending or scheduled. Future Appointments This section includes appointments that were scheduled to occur 6 months from the date of the Encounter, up to a maximum of 20 appointments. The data comes from all [place] treatment facilities. Appointment Date/Time Appointment Type Appointme nt Facility Name Jun 10, 2024 08:50 AM AMBULATORY - MEDICINE [facility] Jun 10, 2024 11:00 AM AMBULATORY - PSYCHIATRY [facility] Jun 20, 2024 09:00 AM [facility]ORY - NONE [facility] Jun 24, 2024 08:00 [facility] Jun 30, 2024 11:00 AM AMBULATORY - NONE [facility] Jun 30, 2024 03:00 PM [facility] Jul 01, 2024 09:00 AM AMBULATORY - MEDICINE [facility] Jul 07, 2024 10:00 AM AMBULATORY - PSYCHIATRY [facility] Jul 08, 2024 10:00 AM AMBULATORY - MEDICINE [facility] Jul 10, 2024 08:30 AM AMBULATORY - MEDICINE [facility] Jul 24, 2024 03:00 PM AMBULATORY - PSYCHIATRY [facility] Aug 05, 2024 09:00 AM AMBULATORY - MEDICINE [facility] Aug 11, 2024 10:00 AM AMBULATORY - PSYCHIATRY [facility] Aug 12, 2024 09:00 AM AMBULATORY - MEDICINE JAYNE NGTON [facility] August 18, 2024 09:00 AM AMBULATORY - SURGERY LARRY HOLLOWAY [facility] September 02, 2024 08:20 AM AMBULATORY - SURGERY LARRY HOLLOWAY [facility] Oct 01, 2024 09:00 AM AMBULATORY - NONE DALE Rios [facility] Oct 30, 2024 09:00 AM AMBULATORY - PSYCHIATRY COREY NICHOLAS [facility] Lab Results: +/- 30 days of the encounter This section includes the Chemistry and Hematology Lab Results on record with [place] for the patient. Radiology Reports and Pathology Reports are provided separately, in subsequent sections. Lab Results This section contains the Chemistry/Hematology Results that were resulted 30 days before or 30 daysafter the date of the Encounter. Date/Time Source Result Type Result - Unit Interpretation Reference Range Specimen Type Comment Jun 30, 2024 03:27 PM [facility] BNP ([place]) PLASMA Specimen Type: PLASMA Comment: BNP results less than or equal to 100 pg/ml are bilingual call center representative of normal values in patients without CHF. BNP results greater than 100 pg/ml are considered abnormal and suggestive of CHF. Higher BNP concentrations in the first 72 hours after Acute Coronary Syndrome are associated with an increased risk of , myocardial infarction and CHF. Ordering Provider: SACHI SAINZ Report Released Date/Time: Jun 30, 2024 03:21 PM Reporting Lab: [address] [address] Performing Lab: [address] [address] BNP ([place]) 22 pg/mL 0-100 Jun 30, 2024 03:27 PM [facility] PANEL 1 PLASMA Specimen Type: PLASM A [...] Jun 30, 2024 03:21 PM Reporting Lab: [address] [address] Performing Lab: [address] [address] CREATININE 1.43 mg/dL H 0.72-1.25 UREA NITROGEN 22 mg/dL 9-25 GLUCOSE 164 mg/dL H 74-100 SODIUM 139 mmol/L 136-145 POTASSIUM 3.7 mmol/L 3.5-5.1 CHLORIDE 102 mmol/L 98-107 CO2 27 mmol/L 22-29 CALCIUM 9.8 mg/dL 8.4-10.2 ANION GAP 10 meq/L 3-19 eGFR (CKD-EPI) 50 Jun 30, 2024 03:27 PM [facility] CBC/PLT BLOOD Specimen Type: BLOOD No comment entered. Ordering Provider: SACHI SAINZ Report Released Date/Time: Jun 30, 2024 03:21 PM Reporting Lab: [facility] [address] [address] Performing Lab: [facility] [address] [address] WBC 7.2 10*3/uL 5.0-10.0 RBC 4.85 10*6/uL 4.6-6.2 HGB 14.7 g/dL 14.0-18.0 HCT 43.8 42.0-52.0 MCV 90.3 fL 80.0-94.0 MCH 30.3 pg 27.0-31.0 MCHC 33.6 g/dL 32.0-36.0 PLT 235 10*3/uL 150-450 MPV 10.6 fL 9.0-13.1 RDW 14.8 11.0-16.0 NRBC 0.0 0.0-0.0 May 15, 2024 09:46 AM [facility] MAGNESIUM PLASMA Specimen Type: PLASM A Comment: Estimated [...] May 07, 2024 10:35 AM Reporting Lab: [address] [address] Performing Lab: [address] [address] MAGNESIUM 1.8 mg/dL 1.6-2.6 May 15, 2024 09:46 AM [facility] PANEL 1 PLASMA Specimen Type: PLASM A [...] May 07, 2024 10:35 AM Reporting Lab: [address] [address] Performing Lab: [address] [address] CREATININE 1.54 mg/dL H 0.72-1.25 UREA NITROGEN 20 mg/dL 9-25 GLUCOSE 151 mg/dL H 74-100 SODIUM 140 mmol/L 136-145 POTASSIUM 4.0 mmol/L 3.5-5.1 CHLORIDE 104 mmol/L 98-107 CO2 28 mmol/L 22-29 CALCIUM 9.7 mg/dL 8.4-10.2 ANION GAP 8 meq/L 3-19 eGFR (CKD-EPI) 46 May 15, 2024 09:46 AM [facility] BNP ([place]) PLASMA Specimen Type: PLASMA Comment: BNP results less than or equal to 100 pg/ml are bilingual call center representative of normal values in patients without CHF. BNP results greater than 100 pg/ml are considered abnormal and suggestive of CHF. Higher BNP concentrations in the first 72 hours after Acute Coronary Syndrome are associated with an increased risk of , myocardial infarction and CHF. Ordering Provider: LAURA STEINBERG Report Released Date/Time: May 07, 2024 10:35 AM Reporting Lab: [address] [address] Performing Lab: [address] [address] BNP ([place]) 29 pg/mL 0-100 Social History: Smoking Status (Most current) and Tobacco Use (All prior to encounter date) This section includes the most current, and the historical, smoking and tobacco- related health factors from the [place] facility where the Encounter took place. Current Smoking Status This section includes the most current smoking, or tobacco-related health factor, from the [place] facility where the Encounter took place. Date/Time Current Smoking Status Comment Edis baker May 07, 2024 10:00 AM VA-TOBACCO NEVER U SED OTHER TYPE [facility] Tobacco Use History This section includes a history of the smoking, or tobacco-related health factors, that were collected on or before the date of the Encounter. The data comes from the [place] facility where the Encounter took place. Date/Time Smoking Status/Tobacco Use Comment Ramu harrington May 07, 2024 10:00 AM VA-TOBACCO NEVER U SED OTHER TYPE [facility] Feb 14, 2024 08:30 AM VA-TOBACCO FORMER USER [facility] Feb 14, 2024 08:30 AM VA-TOBACCO QUIT 15 YRS OR MORE [facility] Jan 10, 2023 11:00 AM VA-TOBACCO NEVER USED [facility] Dec 09, 2021 08:00 AM VA-TOBACCO NEVER USED [facility] Dec 10, 2020 09:30 AM VA-TOBACCO NEVER USED [facility] May 13, 2019 09:09 AM VA-TOBACCO NEVER USED [facility] Apr 03, 2018 09:45 AM VA-TOBACCO NEVER USED [facility] May 07, 2017 10:31 AM V9 LIFETIME NON-USER OF TOBACCO [facility] Apr 06, 2016 10:18 AM V9 LIFETIME NON-USER OF TOBACCO [facility] Jan 26, 2015 08:52 AM V9 LIFETIME NON-USER OF TOBACCO [facility] August 18, 2013 08:27 AM V9 LIFETIME NON-USER OF TOBACCO [facility] Sep 18, 2012 08:39 AM V9 LIFETIME NON-USER OF TOBACCO [facility] Jan 19, 2012 10:42 AM V9 LIFETIME NON-USER OF TOBACCO [facility] Jan 19, 2012 10:42 AM V9 TOBACCO OFFERED [facility] September 13, 2010 10:28 AM V9 LIFETIME NON-USER OF TOBACCO [facility] September 13, 2010 10:28 AM V9 TOBACCO OFFERED [facility] Sep 21, 2006 12:59 PM V9 LIFETIME NON-USER OF TOBACCO [facility] Jan 29, 2006 07:52 AM HF V9 LIFETIME NON-SMOKER [facility] Dec 30, 2004 08:05 AM HF V9 LIFETIME NON-SMOKER [facility] Dec 23, 2003 02:58 PM HF V9 LIFETIME NON-SMOKER [facility] Radiology Reports: +/- 30 days of [...] the Encounter. The data comes from all [facility] facilities. Date/Time Radiology Report Provider Source May 29, 2024 05:[address] PERFORMED BY OTHER FACILITY: ERIK GALLEGO [id number] -1945 M Exm Date: MAY 29, 2024@17:13 Req Phys: LAURA STEINBERG Pat Loc: [facility]NE PACT MARGARITO 1-2 (Req'g Lo Img Loc: OUTSIDE2 LD CT Service: Unknown (Case [id number] COMPLETE) [address] CT PERFORMED BY OTHER FACIL(CT Detailed) CPT:65831 Reason for Study: Exam imported from outside Clinical History: Original Data for Imported Study Patient Name: ERIK GALLEGO Date: 1945 Sex: M Study Date: 05/29/24 Study Time: 05:13:55 Study Description: CT CHEST PE/ABD/PEL W Referring Physician: TAMMI GEE Series 1: 2 CT files, description: LENS MATCHER Series 2: 216 CT files, description: 5.0mm [...] Diagnostic Code: VERIFIED BY: / *ELECTRONICALLY FILED* [facility] May 27, 2024 08:07 AM MYOVIEW(1): ERIK GALLEGO NATHANIEL [id number] -1945 M Exm Date: MAY 27, 2024@08:07 Req Phys: LAURA STEINBERG Loc: DEANNE POD ASSISTANT CITY ATTORNEY (Req'g Loc) Img Loc: NUCLEAR MEDICINE Service: [place] [address] (Case [id number] COMPLETE) MYOVIEW(1) (NM Detailed) CPT:A9502 Reason for [...] 27, 2024 Date Verified: MAY 27, 2024 Auto Glass Worker E-Sig: Report: STUDY: GXT REPORT: Patient exercised [...] Staff: ANIA ANDRADE APRN, Cardiology Verified by duct layer for ANIA ANDRADE /ANIA [facility]INO[facility] May 27, 2024 08:07 AM 02558(D) MYOCARDIAL SPECT(MULTIPLE): ERIK GALLEGO [id number] -1945 M Exm Date: MAY 27, 2024@08:07 Req Phys: LAURA STEINBERG Loc: DE[facility] POD ASSISTANT CITY ATTORNEY (Req'g Loc) Img Loc: NUCLEAR MEDICINE Service: [place] [address] THIS IS AN AMENDED REPORT (Case [id number] COMPLETE) 82413(D) MYOCARDIAL SPECT(MULTIPL(NM Detailed) CPT:32204 Proc Modifiers : GXT Reason for Study: SEE CLINICAL HISTORY Radiopharmaceutical: TC-99M TETROFOSMIN (MYOVIEW)-1, 5.5 mCi Adm'd on MAY 27, 2024@08:00 by SONDRA GOTTLIEB E Route [employer] Radiopharmaceutical: TC-99M TETROFOSMIN (MYOVIEW)-2, 16.5 [...] 05, 2024 Date Verified: JUN 05, 2024 Auto Glass Worker E-Sig: Report: [facility], [place], [place] STUDY: Treadmill Exercise SPECT Tc-99m myoview [...] performed with tomographic and three-dimensional reconstructions with Referron NM/CT 640 system. The patient performed treadmill [...] data sets in addition to the conventional dbh-ovdngmrtniv-smpnrygcv images. Both filtered back projection and iterative [...] ventricular cavity. 4. SPECT images: Attenuation-corrected and juu-yucaizabgoi-keezkviry SPECT images were evaluated. SPECT images demonstrate normal myocardial perfusion. There is a medium size, mild intensity defect located in the ieunu-gr-czbwxu inferior myocardium . The defect is fixed [...] Kerri Mena MD, Cardiology Attending /KERRI [facility] May 27, 2024 08:07 AM TC-99M FROM NON-HIGHLY ENRICHED URANIUM SOURCE: ERIK GALLEGO [id number] -1945 M Exm Date: MAY 27, 2024@08:07 Req Phys: STEINBERGLAURA Pat Loc: DE[facility] POD ASSISTANT CITY ATTORNEY (Req'g Loc) Img Loc: NUCLEAR MEDICINE Service: [place] [address] THIS IS AN AMENDED REPORT (Case [id number] COMPLETE) TC-99M FROM NON-HIGHLY ENRICHED U(NM Detailed) [...] 05, 2024 Date Verified: JUN 05, 2024 Auto Glass Worker E-Sig: Report: [facility], [place], [place] STUDY: Treadmill Exercise SPECT Tc-99m myoview [...] performed with tomographic and three-dimensional reconstructions with Referron NM/CT 640 system. The patient performed treadmill [...] data sets in addition to the conventional psf-txrdpsgokvp-uasvpijdn images. Both filtered back projection and iterative [...] ventricular cavity. 4. SPECT images: Attenuation-corrected and rpi-jygjwxxtirc-lqllssbxq SPECT images were evaluated. SPECT images demonstrate normal myocardial perfusion. There is a medium size, mild intensity defect located in the nsfuz-no-gcwtcf inferior myocardium . The defect is fixed [...] Kerri Mena MD, Cardiology Attending /[facility] May 27, 2024 08:07 AM MYOVIEW(2): ERIK GALLEGO [id number] -1945 M Exm Date: MAY 27, 2024@08:07 Req Phys: LAURA STEINBERG Loc: DE[facility] POD ASSISTANT CITY ATTORNEY (Req'g Loc) Img Loc: NUCLEAR MEDICINE Service: [place] [address] THIS IS AN AMENDED REPORT (Case [id number] COMPLETE) MYOVIEW(2) (NM Detailed) CPT:A9502 Reason for [...] 05, 2024 Date Verified: JUN 05, 2024 Auto Glass Worker E-Sig: Report: [facility], [place], [place] STUDY: Treadmill Exercise SPECT Tc-99m myoview [...] performed with tomographic and three-dimensional reconstructions with Referron NM/CT 640 system. The patient performed treadmill [...] data sets in addition to the conventional txp-laxyooshvly-jhmayzsey images. Both filtered back projection and iterative [...] ventricular cavity. 4. SPECT images: Attenuation-corrected and gza-vplusjipoya-szazixvdu SPECT images were evaluated. SPECT images demonstrate normal myocardial perfusion. There is a medium size, mild intensity defect located in the hdhve-pw-ockamt inferior myocardium . The defect is fixed [...] Kerri Mena MD, Cardiology Attending /[facility] May 27, 2024 08:07 AM CARD. STRESS TEST W/TREADMILL/...: ERIK GALLEGO [id number] -1945 M Exm Date: MAY 27, 2024@08:07 Req Phys: MARYANLAURA Jovanny Landry Loc: DE[facility] POD ASSISTANT CITY ATTORNEY (Req'g Loc) Img Loc: NUCLEAR MEDICINE Service: [place] [address] THIS IS AN AMENDED REPORT (Case [id number] COMPLETE) CARD. STRESS TEST W/TREADMILL/...(NM Detailed) CPT:26325 Reason for Study: SEE CLINICAL HISTORY Clinical [...] 05, 2024 Date Verified: JUN 05, 2024 Auto Glass Worker E-Sig: Report: [facility], [place], [place] STUDY: Treadmill Exercise SPECT Tc-99m myoview [...] performed with tomographic and three-dimensional reconstructions with Referron NM/CT 640 system. The patient performed treadmill [...] data sets in addition to the conventional dzz-vzirjpncegt-hmjdxxlhh images. Both filtered back projection and iterative [...] ventricular cavity. 4. SPECT images: Attenuation-corrected and uyw-rvnwhgydrsq-kryameafi SPECT images were evaluated. SPECT images demonstrate normal myocardial perfusion. There is a medium size, mild intensity defect located in the tfhwd-gw-yoecmh inferior myocardium . The defect is fixed [...] Kerri Mena MD, Cardiology Attending /[facility] May 15, 2024 09:57 AM CHEST TWO(2) VIEW PA&LAT: ERIK GALLEGO [id number] -1945 [facility] Date: MAY 15, 2024@09:57 Req Phys: LAURA STEINBERG Loc: DEANNE PACT PHONE MARGARITO (Req'g Img Loc: [facility] RAD[facility]OLOGY Service: Unknown [place] [id number] (Case [id number] COMPLETE)CHEST TWO(2) VIEW PA&LAT (RAD Detailed) CPT:12264 Reason for Study: dyspnea Clinical History: Report Status: Verified Date Reported: MAY 17, 2024 Date Verified: MAY 17, 2024 Auto Glass Worker E-Sig: Report: CHEST TWO(2) VIEW PA&LAT, 05/15/2024 10:02 AM EST INDICATION: dyspnea COMPARISON: April 16, 2024 Impression: Calcified granuloma right lung apex. No edema or pneumonia. No pleural effusion or pneumothorax. Heart size normal. No acute osseous abnormality. Primary Diagnostic Code: NO ALERT REQUIRED Primary Interpreting Staff: KAILYN STEELE, Staff Physician Verified by duct layer for KAILYN STEELE /KAILYN AVILES [facility] Encounter Notes: All associated encounter notes This section contains the clinical notes associated to the Encounter. Date/Time Encounter Note(s) Provider Source Jun 08, 2024 10:58 AM PRIMARY CARE SECURE MESSAGING: LOCAL TITLE: PRIMARY CARE SECURE MESSAGING STANDARD TITLE: PRIMARY CARE SECURE MESSAGING DATE OF NOTE: JUN 08, 2024@10:58 ENTRY DATE: JUN 08, 2024@10:58:31 AUTHOR: MERE VELEZ EXP COSIGNER: URGENCY: STATUS: COMPLETED ------Original Message ----- Sent: 06/06/2024 04:47 PM ET From: ERIK GALLEGO To: MARGARITO Team (Maryan) [facility] [place] Subject: Appointment:echo test feel a lot better with the stent put in main artery and new meds thanks for asking dr adam within 10 percent of leaving here. ------Original Message ----- Sent: 06/08/2024 10:58 AM ET From: MERE VELEZ To: ERIK GALLEGO Subject: Appointment:echo test Dr.Mullen wanted to let you know that a repeat echo is not necessary. However, a cardiology consult was ordered at the [place] Please make sure that you bring the echo report as well as the actual imaging CD and the heart cath records to your cardiology appointment. Mere ANNE,yard rigger Margarito Ramirez Flu shots Feb 08 8-3 Daviddaniel Escudero /[place]/ MERE VELEZ Registered Nurse Signed: 06/08/2024 10:58 MERE VELEZ [facility] Jun 07, 2024 10:27 AM ADDENDUM: LOCAL TITLE: Addendum STANDARD TITLE: ADDENDUM DATE OF NOTE: JUN 07, 2024@10:27:14 ENTRY DATE: JUN 07, 2024@10:27:15 AUTHOR: LAURA STEINBERG EXP COSIGNER: URGENCY: STATUS: COMPLETED Please get echo report from [facility]. /[place]/ Laura Steinberg MD Primary Care Physician Signed: 06/07/2024 10:27 Receipt Acknowledged By: 06/09/2024 10:27 /es/ JOE PÉREZ [employer] F[employer]ER --- Original Document --- 06/06/24 PRIMARY CARE SECURE MESSAGING: ------Original Message ----- Sent: 06/06/2024 06:42 AM ET From: ERIK GALLEGO To: MARGARITO Team (Maryan) [facility] [place] Subject: Appointment:echo test should the echo gram be necessary since i have had one when they put the stent in at [facility] a. ------Original Message ----- Sent: 06/06/2024 04:38 PM ET From: MERE VELEZ To: ERIK GALLEGO Subject: Appointment:echo test , I sent your message to I hope that you are feeling better than you were when I last spoke to you. Mere ANNE,yard rigger [facility] Flu shots Feb 08 8-3 [facility] /[place]/ MERE VELEZ Registered Nurse Signed: 06/06/2024 16:38 06/06/2024 ADDENDUM STATUS: COMPLETED [place] would like to know if the echo that was ordered at the [place] is necessary since he just had an echo with his recent hospitalization Please advise /jocy VELEZ Registered Nurse Signed: 06/06/2024 16:49 Receipt Acknowledged By: 06/07/2024 10:25 /[place]/ Laura Steinberg MD Primary Care Physician 06/07/2024 ADDENDUM STATUS: COMPLETED Please tell patient repeat echo is not necessary. However, a cardiology consult was ordered at the [place] and he will need to make sure that he brings the echo report as well as the actual imaging CD and the heart cath records to his cardiology appointment. /jocy Steinberg MD Primary Care Physician Signed: 06/07/2024 10:27 Receipt Acknowledged By: * AWAITING SIGNATURE * MERE VELEZ 06/08/2024 ADDENDUM STATUS: COMPLETED Sent a /[place]/ MERE VELEZ Registered Nurse Signed: 06/08/2024 10:58 LAURA STEINBERG [facility] Jun 07, 2024 10:25 AM ADDENDUM: LOCAL TITLE: Addendum STANDARD TITLE: ADDENDUM DATE OF NOTE: JUN 07, 2024@10:25:55 ENTRY DATE: JUN 07, 2024@10:25:56 AUTHOR: LAURA STEINBERG EXP COSIGNER: URGENCY: STATUS: COMPLETED Please tell patient repeat echo is not necessary. However, a cardiology consult was ordered at the [place] and he will need to make sure that he brings the echo report as well as the actual imaging CD and the heart cath records to his cardiology appointment. /jocy Steinberg MD Primary Care Physician Signed: 06/07/2024 10:27 Receipt Acknowledged By: 06/11/2024 10:46 /[place]/ MERE VELEZ Registered Nurse --- Original Document --- 06/06/24 PRIMARY CARE SECURE MESSAGING: ------Original Message ----- Sent: 06/06/2024 06:42 AM ET From: ERIK GALLEGO To: MARGARITO Team (Maryan) [facility] [place] Subject: Appointment:echo test should the echo gram be necessary since i have had one when they put the stent in at [facility] a. ------Original Message ----- Sent: 06/06/2024 04:38 PM ET From: MERE VELEZ To: ERIK GALLEGO Subject: Appointment:echo test , I sent your message to I hope that you are feeling better than you were when I last spoke to you. Mere ANNE,yard rigger Margarito Ramirez Flu shots Feb 08 8-3 [facility] /[place]/ MERE VELEZ Registered Nurse Signed: 06/06/2024 16:38 06/06/2024 ADDENDUM STATUS: COMPLETED [place] would like to know if the echo that was ordered [place] the [place] is necessary since he just had an echo with his recent hospitalization Please advise /jocy VELEZ Registered Nurse Signed: 06/06/2024 16:49 Receipt Acknowledged By: 06/07/2024 10:25 /[place]/ Laura Steinberg MD Primary Care Physician 06/07/2024 ADDENDUM STATUS: COMPLETED Please get echo report from [facility]. /[place]/ Laura Steinberg MD Primary Care Physician Signed: 06/07/2024 10:27 Receipt Acknowledged By: 06/09/2024 10:27 /[place]/ JOE PÉREZ [employer] F[employer]ER 06/08/2024 ADDENDUM STATUS: COMPLETED Sent a SM /jocy VELEZ Registered Nurse Signed: 06/08/2024 10:58 06/09/2024 ADDENDUM STATUS: COMPLETED Requested records. /jocy PÉREZ [employer]EE FARMER Signed: 06/09/2024 10:29 06/11/2024 ADDENDUM STATUS: UNSIGNED You may not VIEW this UNSIGNED Addendum. LAURA STEINBERG [facility] Jun 06, 2024 04:49 PM ADDENDUM: LOCAL TITLE: Addendum STANDARD TITLE: ADDENDUM DATE OF NOTE: JUN 06, 2024@16:49:17 ENTRY DATE: JUN 06, 2024@16:49:18 AUTHOR: MERE VELEZ EXP COSIGNER: URGENCY: STATUS: COMPLETED [place] would like to know if the echo that was ordered [place] the [place] is necessary since he just had an echo with his recent hospitalization Please advise /jocy VELEZ Registered Nurse Signed: 06/06/2024 16:49 Receipt Acknowledged By: 06/07/2024 10:25 /[place]/ Laura Steinberg MD Primary Care Physician --- Original Document --- 06/06/24 PRIMARY CARE SECURE MESSAGING: ------Original Message ----- Sent: 06/06/2024 06:42 AM ET From: ERIK GALLEGO To: MARGARITO Team (Maryan) [facility] [place] Subject: Appointment:echo test should the echo gram be necessary since i have had one when they put the stent in at [facility] a. ------Original Message ----- Sent: 06/06/2024 04:38 PM ET From: MERE VELEZ To: ERIK GALLEGO Subject: Appointment:echo test , I sent your message to I hope that you are feeling better than you were when I last spoke to you. Mere ANNE,yard rigger Margarito Team Flu shots Feb 08 8-[address] [facility] [address] /es/ MERE VELEZ Registered Nurse Signed: 06/06/2024 16:38 06/07/2024 ADDENDUM STATUS: UNSIGNED You may not VIEW this UNSIGNED Addendum. [facility] Jun 06, 2024 04:38 PM PRIMARY CARE SECURE MESSAGING: LOCAL TITLE: PRIMARY CARE SECURE MESSAGING STANDARD TITLE: PRIMARY CARE SECURE MESSAGING DATE OF NOTE: JUN 06, 2024@16:38 ENTRY DATE: JUN 06, 2024@16:38:49 AUTHOR: MERE VELEZ EXP COSIGNER: URGENCY: STATUS: COMPLETED PRIMARY CARE SECURE MESSAGING Has ADDENDA ------Original Message ----- Sent: 06/06/2024 06:42 AM ET From: ERIK GALLEGO To: MARGARITO Team (Maryan) Primary [facility] Subject: Appointment:echo test should the echo gram be necessary since i have had one when they put the stent in at [facility] a. ------Original Message ----- Sent: 06/06/2024 04:38 PM ET From: MERE VELEZ To: ERIK GALLEGO Subject: Appointment:echo test , I sent your message to I hope that you are feeling better than you were when I last spoke to you. Mere ANNE,yard rigger Margarito Ramirez Flu shots Feb 08 8-3 [facility] [place]ota /peyton/ MERE VELEZ Registered Nurse Signed: 06/06/2024 16:38 06/06/2024 ADDENDUM STATUS: COMPLETED [place] would like to know if the echo that was ordered [place] the [place] is necessary since he just had an echo with his recent hospitalization Please advise /peyton/ MERE VELEZ Registered Nurse Signed: 06/06/2024 16:49 Receipt Acknowledged By: 06/07/2024 10:25 /peyton/ Laura Steinberg MD Primary Care Physician 06/07/2024 ADDENDUM STATUS: COMPLETED Please tell patient repeat echo is not necessary. However, a cardiology consult was ordered [place] the [place] and he will need to make sure that he brings the echo report as well as the actual imaging CD and the heart cath records to his cardiology appointment. /peyton/ Laura Steinberg MD Primary Care Physician Signed: 06/07/2024 10:27 Receipt Acknowledged By: 06/11/2024 10:46 /peyton/ MERE VELEZ Registered Nurse 06/07/2024 ADDENDUM STATUS: COMPLETED Please get echo report from [facility]. /peyton/ Laura Steinberg MD Primary Care Physician Signed: 06/07/2024 10:27 Receipt Acknowledged By: 06/09/2024 10:27 /peyton/ JOE PÉREZ ADVANCED COFFEE FARMER 06/08/2024 ADDENDUM STATUS: COMPLETED Sent a SM /peyton/ MERE VELEZ Registered Nurse Signed: 06/08/2024 10:58 06/09/2024 ADDENDUM STATUS: COMPLETED Requested records. /peyton/ JOE PÉREZ [employer]VANC[employer] COFFEE FARMER Signed: 06/09/2024 10:29 06/11/2024 ADDENDUM STATUS: COMPLETED Sent a SM on 06/08/24 /peyton/ MERE VELEZ Registered Nurse Signed: 06/11/2024 10:46 MERE VELEZ [facility]
--- OUTSIDE RECORDS SUMMARY | 2024-07-24 21:23 | XMS_ITS | Encounter Summary ---
Author Name [facility] [place] [facility] [place] [facility] [place] Address [address] [place] [id number] Care Team Providers Care Theatre Instructor Name Role Phone LAURA MCKEON Primary Care [...] PART A Oct 14, 2009 PART A [id number] [phone] Alex GALLEGO PATIENT MEDICARE (WNR) MEDICARE (M) PART B Oct 14, 2009 PART B [id number] Alex GALLEGO PATIENT MEDICARE (WNR) MEDICARE (M) PART A Oct 14, 2009 PART A [id number] Alex GALLEGO PATIENT MEDICARE (WNR) MEDICARE (M) PART B Oct 14, 2009 PART B [id number] [phone] Alex GALLEGO PATIENT MEDICARE (WNR) MEDICARE (M) PART A Oct 14, 2009 PART A [id number] Alex GALLEGO PATIENT MEDICARE (WNR) MEDICARE (M) PART B Oct 14, 2009 PART B [id number] Alex GALLEGO PATIENT Selected Encounter This section includes the information on record at [place] for the Encounter. Date/Time Encounter Type Encounter Description Reason Pro vider Source Jan 10, 2024 01:30 PM Outpatient Encounter NEUROLOGY IHE Encounter Template Text not used by [place] Plan of Treatment: Future Appointments (+ 6 months) and Future Tests (+/- 45 days) The Plan of Treatment section includes future care activities for the patient from all [place] treatmentfacilities. This section includes future appointments and future orders which are active, pending or scheduled. Future Appointments This section includes appointments that were scheduled to occur 6 months from the date of the Encounter, up to a maximum of 20 appointments. The data comes from all [place] treatment facilities. Appointment Date/Time Appointment Type Appointme nt Facility Name Jan 14, 2024 08:00 AM [facility] Jan 22, 2024 08:30 AM AMBULATORY - MEDICINE [facility] Jan 22, 2024 01:00 PM [facility] Jan 29, 2024 01:00 PM [facility] - [facility]RY [facility] Feb 14, 2024 08:30 AM [facility] Feb 14, 2024 10:00 AM [facility] Feb 27, 2024 02:00 PM [facility] Feb 28, 2024 01:30 PM [facility] Feb 28, 2024 02:30 PM AMBULATORY - [facility] Feb 29, 2024 09:20 AM AM[facility] SURGERY [facility] Mar 04, 2024 09:00 AM AM[facility]ULATORY - PS[facility]CHIATRY [facility] Mar 17, 2024 01:00 PM [facility]GERY [facility] Mar 18, 2024 08:30 AM AMBULATORY - REHAB [facility]IC[facility] Mar 18, 2024 10:00 AM AM[facility]ULATORY - SURGERY [place] [facility] Mar 28, 2024 08:00 AM AMBULATORY - NONE [facility] Apr 01, 2024 10:00 AM AMBULATORY - PSYCHIATRY [facility] Apr 15, 2024 09:00 AM AMBULATORY - PSYCHIATRY [facility] Apr 16, 2024 11:35 AM AMBULATORY - MEDICINE [facility] Apr 25, 2024 08:30 AM [facility] - SURGERY [facility] Apr 29, 2024 10:00 AM AMBULATORY - MEDICINE [facility] Lab Results: +/- 30 days of the [...] Unit Interpretation Reference Range Specimen Type Comment Jan 31, 2024 11:09 AM [facility] GLUCOSE-HAND MONITOR CAPILLARY Specimen Type: CAPILLARY Comment: $ Test performed by: [id number] Meter #: [id number] Ordering Provider: PELON CHEUNG Report Released Date/Time: Feb 04, 2024 07:19 AM Reporting Lab: [address] [address] Performing Lab: [address] [address] GLUCOSE-HAND MONITOR 125 mg/dL H 71-99 Pathology [...] the Encounter. The data comes from all [place] treatment facilities. Date/Time Pathology Report Provider Source Feb 05, 2024 03:20 PM LR SURGICAL PATHOL OGY REPORT: LOCAL TITLE: LR SURGICAL PATHOLOGY REPORT DATE OF NOTE: FEB 05, 2024@15:20:14 ENTRY DATE: FEB 05, 2024@15:20:14 AUTHOR: ROSS DOBSONER: URGENCY: STATUS: COMPLETED $APHDR Reporting Lab: [facility] [[facility]# [id number]] [address] [place] [address] - - - - - - - [...] - - - - $TEXT Submitted by: [email or web address] Date obtained: Jan 31, 2024 14:21 - [...] submitted in one cassette. CPT CODE - 61806 MICROSCOPIC EXAM/DIAGNOSIS: Right long finger cyst, excision: -Findings consistent with digital mucous cyst. /peyton/ Ross Dobson MD Pathologist Signed Feb 05, 2024@15:20 Performing Laboratory: Surgical Pathology Report Performed By: [facility] [[facility]# [id number]] [address] [place] [id number] $FTR - - - - - - - - - - - - - - - - - - - - - - - - - - - - - - - - - - - - - - - - (End of report) ROSS DOBSON MD [facility] Date Feb 05, 2024 - - - - - - - - - - - - - - - - - - - - - - - - - - - - - - - - - - - - - - - - ERIK GALLEGO STANDARD FORM 515 ID:[id number] SEX:M :1945 AGE: 78 LOC:PATH PCP: Laura Mckeon MD /peyton/ Ross Dobson MD Pathologist Signed: 02/05/2024 15:20 ROSS DOBSON-D [facility] Jan 31, 2024 12:13 PM LR SURGICAL PATHOL OGY REPORT: LOCAL TITLE: LR SURGICAL PATHOLOGY REPORT DATE OF NOTE: JAN 31, 2024@12:13:13 ENTRY DATE: JAN 31, 2024@12:13:13 AUTHOR: JUDY SIGALA EXP COSIGNER: URGENCY: STATUS: COMPLETED $APHDR Reporting Lab: [facility] [CLIA# [id number]] [address] [place] [address] - - - - - - - [...] CELL CARCINOMA LEFT PREAURICULAR CHEEK. CPT CODE: 46892 I ACTED BOTH THE SURGEON AND THE PATHOLOGIST FOR THIS CASE. PLEASE SEE CORRESPONDING MOHS NOTE IN CPRS AND MOHS MAP SCANNED TO [place]. /es/ JUDY SIGALA Chief, Dermatology Signed Jan 31, 2024@12:13 Performing Laboratory: Surgical Pathology Report Performed By: [facility] [CLIA# [id number]] [facility] [place] [address] $FTR - - - - - - - - - - - - - - - - - - - - - - - - - - - - - - - - - - - - - - - - (End of report) JUDY SIGALA MD [facility] Date Jan 22, 2024 - - - - - - - - - - - - - - - - - - - - - - - - - - - - - - - - - - - - - - - - ERIK GALLEGO STANDARD FORM 515 ID:[id number] SEX:M :1945 AGE: 78 LOC:DERM PCP: Laura Mckeon MD /peyton/ JUDY SIGALA Chief, Dermatology Signed: 01/31/2024 12:13 JUDY SIGALA-Joseph [facility] Encounter Notes: All associated encounter notes This section contains the clinical notes associated to the Encounter. Date/Time Encounter Note(s) Provider Source Jan 10, 2024 03:23 PM NO SHOW NOTE: LOCAL TITLE: NEUROLOGY CLINIC NO SHOW NOTE STANDARD TITLE: NO SHOW NOTE DATE OF NOTE: JAN 10, 2024@15:23 ENTRY DATE: JAN 10, 2024@15:23:35 AUTHOR: HEATHER RAGLAND EXP COSIGNER: URGENCY: STATUS: COMPLETED NEUROLOGY CLINIC NO SHOW NOTE Has ADDENDA Please mail a no show letter to patient and ask to call clinic if wanting to reschedule in Neurology clinic appointment. /MOID Pierson RN [facility] Neurology [employer] Baker Signed: 01/10/2024 15:23 Receipt Acknowledged By: 01/10/2024 15:53 /jocy AUGUST ADVANCED COUNSELING CASE MANAGER 01/10/2024 ADDENDUM STATUS: COMPLETED No show letter mailed. /jocy AUGUST ADVANCED COUNSELING CASE MANAGER Signed: 01/10/2024 15:53 HEATHER RAGLAND [facility]
--- OUTSIDE RECORDS SUMMARY | 2024-07-24 21:23 | XMS_ITS | Encounter Summary ---
Author Name [facility] [place] [facility] [place] [facility] [place] Address [address] [place] [address] Care Team Providers Care Pairer Substandard Name Role Phone STEINBERG, CYNDI Primary Care Provider Unavailabl e Insurance Providers: [...] PART A Oct 14, 2009 PART A [id number] Alex GALLEGO PATIENT MEDICARE (WNR) MEDICARE (M) PART B Oct 14, 2009 PART B [id number] Alex GALLEGO PATIENT MEDICARE (WNR) MEDICARE (M) PART B Oct 14, 2009 PART B [id number] Alex GALLEGO PATIENT MEDICARE (WNR) MEDICARE (M) PART A Oct 14, 2009 PART A [id number] Alex GALLEGO PATIENT MEDICARE (WNR) MEDICARE (M) PART A Oct 14, 2009 PART A [id number] Alex GALLEGO PATIENT MEDICARE (WNR) MEDICARE (M) PART B Oct 14, 2009 PART B [id number] Alex GALLEGO PATIENT Selected Encounter This section includes the information on record at [facility] for the Encounter. Date/Time Encounter Type Encounter Description Reason Pro vider Source IHE Encounter Template Text not used by [facility]
--- OUTSIDE RECORDS SUMMARY | 2024-07-24 21:23 | XMS_ITS | Encounter Summary ---
Author Name [facility] [place] Organization [place] Address [address] [place] [address] Care Team Providers Care Hand Crocheter Name Role Phone LAURA STEINBERG Primary Care [...] PART A Oct 14, 2009 PART A [id number] Alex GALLEGO PATIENT MEDICARE (WNR) MEDICARE (M) PART B Oct 14, 2009 PART B [id number] Alex GALLEGO PATIENT MEDICARE (WNR) MEDICARE (M) PART A Oct 14, 2009 PART A [id number] Alex GALLEGO PATIENT MEDICARE (WNR) MEDICARE (M) PART B Oct 14, 2009 PART B [id number] lAex GALLEGO AYMEGHAN PATIENT MEDICARE (WNR) MEDICARE (M) PART B Oct 14, 2009 PART B [id number] Alex GALLEGO PATIENT MEDICARE (WNR) MEDICARE (M) PART A Oct 14, 2009 PART A [id number] Alex GALLEGO PATIENT Selected Encounter This section includes the information on record at [place] for the Encounter. 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 This section includes future appointments and future orders which are active, pending or scheduled. Future Appointments This section includes appointments that were scheduled to occur 6 months from the date of the Encounter, up to a maximum of 20 appointments. The data comes from all [place] treatment facilities. Appointment Date/Time Appointment Type Appointme nt Facility Name Jun 24, 2024 08:00 AM AMBULATORY - NONE [place] [facility] Jun 30, 2024 11:00 AM AMBULATORY - NONE [place] [facility] Jun 30, 2024 03:00 PM AMBULATORY - MEDICINE JAYNE NGTON-CDD [facility] Jul 01, 2024 09:00 AM AMBULATORY - MEDICINE JAYNE NGTON-CDD [facility] Jul 07, 2024 10:00 AM AMBULATORY - PSYCHIATRY [facility] Jul 08, 2024 10:00 AM AMBULATORY - MEDICINE JAYNE NGTON [facility] Jul 10, 2024 08:30 AM AMBULATORY - MEDICINE JAYNE NGTON-CDD [facility] Jul 24, 2024 03:00 PM AMBULATORY - PSYCHIATRY [facility] Aug 05, 2024 09:00 AM AMBULATORY - MEDICINE JAYNE SINGH [facility] Aug 11, 2024 10:00 AM AMBULATORY - PSYCHIATRY [place] NICHOLAS [facility] Aug 12, 2024 09:00 AM AMBULATORY - MEDICINE JAYNE SINGH [facility] August 18, 2024 09:00 AM AMBULATORY - SURGERY LARRY HOLLOWAY [facility] September 02, 2024 08:20 AM AMBULATORY - SURGERY LARRY HOLLOWAY [facility] Oct 01, 2024 09:00 AM AMBULATORY - NONE [facility] Oct 30, 2024 09:00 AM AMBULATORY - PSYCHIATRY [facility] [facility] Dec 09, 2024 08:00 AM AMBULATORY - NONE [facility] Lab Results: +/- 30 days of [...] Type Comment Jun 30, 2024 03:27 PM [facility] BNP (STODDARD) PLASMA Specimen Type: PLASMA Comment: BNP results less than or equal to 100 pg/ml are petroleum products sales representative of normal values in patients without CHF. BNP results greater than 100 pg/ml are considered abnormal and suggestive of CHF. Higher BNP concentrations in the first 72 hours after Acute Coronary Syndrome are associated with an increased risk of , myocardial infarction and CHF. Ordering Provider: SACHI SAINZ Report Released Date/Time: Jun 30, 2024 03:21 PM Reporting Lab: [facility] [address] [facility] [facility] [address] Performing Lab: [address] [address] BNP (STODDARD) 22 pg/mL 0-100 Jun 30, 2024 03:27 PM [facility] PANEL 1 PLASMA Specimen Type: PLASM [...] 30, 2024 03:21 PM Reporting Lab: [address] [address] Performing Lab: [address] [address] CREATININE 1.43 mg/dL H 0.72-1.25 UREA NITROGEN 22 mg/dL 9-25 GLUCOSE 164 mg/dL H 74-100 SODIUM 139 mmol/L 136-145 POTASSIUM 3.7 mmol/L 3.5-5.1 CHLORIDE 102 mmol/L 98-107 CO2 27 mmol/L 22-29 CALCIUM 9.8 mg/dL 8.4-10.2 ANION GAP 10 meq/L 3-19 eGFR (CKD-EPI) 50 Jun 30, 2024 03:27 PM [facility] CBC/PLT BLOOD Specimen Type: BLOOD No comment entered. Ordering Provider: SACHI SAINZ Report Released Date/Time: Jun 30, 2024 03:21 PM Reporting Lab: [address] [address] Performing Lab: [address] [address] WBC 7.2 10*3/uL 5.0-10.0 RBC 4.85 10*6/uL [...] Pain Height Weight Body Mass Index Source Jun 20, 2024 08:54 AM 96.7 73 133/77 18 98 0 70 209 30 [facility] Immunizations: All administered on the encounter date This section contains immunizations associated to the Encounter. Immunization Series Date Issued Administered By Site Reaction Lot Number CVX Code Drug Leakage Tester Comment(s) Source TD (ADULT), 5 LF TETANUS TOXOID, PRESERVATIVE FREE, ADSORBED Jun 20, 2024 HERNANDO FELDMAN RIGHT DELTO ID [id number] SANOFI PASTEUR ADMINISTERE D AT [place], [facility] ZOSTER RECOMBINANT Jun 20, 2024 HERNANDO FELDMAN LEFT DELTO ID [id number] GLAXOSMITHKLI NE ADMINISTERE D [place], [facility] Social History: Smoking Status (Most current) [...] AM VA-TOBACCO NEVER U SED OTHER TYPE [facility] Tobacco Use History This section includes a history of the smoking, or tobacco-related health factors, that were collected on or before the date of the Encounter. The data comes from the [place] facility where the Encounter took place. Date/Time Smoking Status/Tobacco Use Comment Ramu harrington May 07, 2024 10:00 AM VA-TOBACCO NEVER U SED OTHER TYPE [facility] Feb 14, 2024 08:30 AM VA-TOBACCO FORMER USER [facility] Feb 14, 2024 08:30 AM VA-TOBACCO QUIT 15 YRS OR MORE [facility] Jan 10, 2023 11:00 AM VA-TOBACCO NEVER USED [facility] Dec 09, 2021 08:00 AM VA-TOBACCO NEVER USED [facility] Dec 10, 2020 09:30 AM VA-TOBACCO NEVER USED [facility] May 13, 2019 09:09 AM VA-TOBACCO NEVER USED [facility] Apr 03, 2018 09:45 AM VA-TOBACCO NEVER USED [facility] May 07, 2017 10:31 AM V9 LIFETIME NON-USER OF TOBACCO [facility] Apr 06, 2016 10:18 AM V9 LIFETIME NON-USER OF TOBACCO [facility] Jan 26, 2015 08:52 AM V9 LIFETIME NON-USER OF TOBACCO [facility] August 18, 2013 08:27 AM V9 LIFETIME NON-USER OF TOBACCO [facility] Sep 18, 2012 08:39 AM V9 LIFETIME NON-USER OF TOBACCO [facility] Jan 19, 2012 10:42 AM V9 LIFETIME NON-USER OF TOBACCO [facility] Jan 19, 2012 10:42 AM V9 TOBACCO OFFERED [facility] September 13, 2010 10:28 AM V9 LIFETIME NON-USER OF TOBACCO [facility] September 13, 2010 10:28 AM V9 TOBACCO OFFERED [facility] Sep 21, 2006 12:59 PM V9 LIFETIME NON-USER OF TOBACCO [facility] Jan 29, 2006 07:52 AM HF V9 LIFETIME NON-SMOKER [facility] Dec 30, 2004 08:05 AM HF V9 LIFETIME NON-SMOKER [facility] Dec 23, 2003 02:58 PM HF V9 LIFETIME NON-SMOKER [facility] Radiology Reports: +/- 30 days of the [...] the Encounter. The data comes from all [facility] facilities. Date/Time Radiology Report Provider Source May 29, 2024 05:[id number] PERFORMED BY OTHER FACILITY: [facility] [id number] -1945 M Ex Date: MAY 29, 2024@17:13 Req Phys: LAURA STEINBERG Loc: DEANNE PACT LULU 1-2 (Req'g Lo Img Loc: OUTSIDE2 LD CT Service: Unknown (Case [id number] COMPLETE) [id number] CT PERFORMED BY OTHER FACIL(CT Detailed) CPT:01427 Reason for Study: Exam imported from outside Clinical History: Original Data for Imported Study Patient Name: ERIK GALLEGO Date: 1945 Sex: M Study Date: 05/29/24 Study Time: 05:13:55 Study Description: CT CHEST PE/ABD/PEL W Referring Physician: TAMMI GEE Series 1: 2 CT files, description: DOOR FRAMER Series 2: 216 CT files, description: 5.0mm [...] Diagnostic Code: VERIFIED BY: / *ELECTRONICALLY FILED* [facility] May 27, 2024 08:07 AM MYOVIEW(1): SANAMONIQUEERIK [id number] -1945 M Exm Date: MAY 27, 2024@08:07 Req Phys: LAURA STEINBERG Pat Loc: DEANNE POD COMMERCIAL LOAN UNDERWRITER (Req'g Loc) Img Loc: NUCLEAR MEDICINE Service: [place] [address] (Case [id number] COMPLETE) MYOVIEW(1) (NM Detailed) CPT:A9502 Reason for [...] 27, 2024 Date Verified: MAY 27, 2024 Interior Design Professor E-Sig: Report: STUDY: GXT REPORT: Patient exercised [...] Staff: ANIA ANDRADE APRN, Cardiology Verified by electrical lineman for ANIA ANDRADE /ANIA ESPINOZA-LOWELL [facility] May 27, 2024 08:07 AM 42831(D) MYOCARDIAL SPECT(MULTIPLE): ERIK GALLEGO [id number] -1945 M Ex Date: MAY 27, 2024@08:07 Req Phys: LAURA STEINBERG Jovanny Pat Loc: DEANNE POD COMMERCIAL LOAN UNDERWRITER (Req'g Loc) Img Loc: NUCLEAR MEDICINE Service: [place] [address] THIS IS AN AMENDED REPORT (Case [id number] COMPLETE) 13771(D) MYOCARDIAL SPECT(MULTIPL(NM Detailed) CPT:79237 Proc Modifiers : GXT Reason for Study: [...] 05, 2024 Date Verified: JUN 05, 2024 Interior Design Professor E-Sig: Report: [facility], [place], [place] STUDY: Treadmill Exercise SPECT Tc-99m myoview [...] performed with tomographic and three-dimensional reconstructions with Asantae NM/CT 640 system. The patient performed treadmill [...] data sets in addition to the conventional jsq-bffgtyfrwnn-jgwdcqghj images. Both filtered back projection and iterative [...] ventricular cavity. 4. SPECT images: Attenuation-corrected and mqd-yfoecqjylbt-ckaoerhtf SPECT images were evaluated. SPECT images demonstrate normal myocardial perfusion. There is a medium size, mild intensity defect located in the dhujp-es-qulock inferior myocardium . The defect is fixed [...] BY: Kerri Mena MD, Cardiology Attending /KERRI LONG-CDJoseph [facility] May 27, 2024 08:07 AM TC-99M FROM NON-HIGHLY ENRICHED URANIUM SOURCE: ERIK GALLEGO [id number] -1945 M Exm Date: MAY 27, 2024@08:07 Req Phys: LAURA STEINBERG Pat Loc: DEANNE POD COMMERCIAL LOAN UNDERWRITER (Req'g Loc) Img Loc: NUCLEAR MEDICINE Service: [place] [address] THIS IS AN AMENDED REPORT (Case [id number] COMPLETE) TC-99M FROM NON-HIGHLY ENRICHED U(NM Detailed) [...] 05, 2024 Date Verified: JUN 05, 2024 Interior Design Professor E-Sig: Report: [facility], [place], [place] STUDY: Treadmill Exercise SPECT Tc-99m myoview [...] performed with tomographic and three-dimensional reconstructions with Asantae NM/CT 640 system. The patient performed treadmill [...] data sets in addition to the conventional igk-quxzwpwodpr-xaghvmont images. Both filtered back projection and iterative [...] ventricular cavity. 4. SPECT images: Attenuation-corrected and kdz-dbuztofidmy-qiecnviqf SPECT images were evaluated. SPECT images demonstrate normal myocardial perfusion. There is a medium size, mild intensity defect located in the gsszk-ug-yfgmck inferior myocardium . The defect is fixed [...] BY: Kerri Mena MD, Cardiology Attending /KERRI LONG [facility] May 27, 2024 08:07 AM MYOVIEW(2): ERIK GALLEGO [id number] -1945 M Exm Date: MAY 27, 2024@08:07 Req Phys: LAURA STEINBERG Gris Loc: DEANNE POD COMMERCIAL LOAN UNDERWRITER (Req'g Loc) Img Loc: NUCLEAR MEDICINE Service: [place] [address] THIS IS AN AMENDED REPORT (Case [id number] COMPLETE) MYOVIEW(2) (NM Detailed) CPT:A9502 Reason for [...] 05, 2024 Date Verified: JUN 05, 2024 Interior Design Professor E-Sig: Report: [facility], [place], [place] STUDY: Treadmill Exercise SPECT Tc-99m myoview [...] performed with tomographic and three-dimensional reconstructions with Asantae NM/CT 640 system. The patient performed treadmill [...] data sets in addition to the conventional rzp-poykkrolblw-kujpxjrle images. Both filtered back projection and iterative [...] ventricular cavity. 4. SPECT images: Attenuation-corrected and cch-birfnbkkznn-hdifhsidm SPECT images were evaluated. SPECT images demonstrate normal myocardial perfusion. There is a medium size, mild intensity defect located in the fkcwl-uh-dxzaxe inferior myocardium . The defect is fixed [...] Kerri Mena MD, Cardiology Attending /KERRI LONG-[facility] May 27, 2024 08:07 AM CARD. STRESS TEST W/TREADMILL/...: KITCHEN,ERIK ARNO [id number] -1945 M Exm Date: MAY 27, 2024@08:07 Req Phys: LAURA STEINBERG Loc: DEANNE POD COMMERCIAL LOAN UNDERWRITER (Req'g Loc) Img Loc: NUCLEAR MEDICINE Service: Unknown [place] [id number] THIS IS AN AMENDED REPORT (Case [id number] COMPLETE) CARD. STRESS TEST W/TREADMILL/...(NM Detailed) CPT:78509 Reason for Study: SEE CLINICAL HISTORY Clinical [...] 05, 2024 Date Verified: JUN 05, 2024 Interior Design Professor E-Sig: Report: [facility], [place], [place] STUDY: Treadmill Exercise SPECT Tc-99m myoview [...] performed with tomographic and three-dimensional reconstructions with Asantae NM/CT 640 system. The patient performed treadmill [...] data sets in addition to the conventional xqo-kpzkycspbet-mjamsgbad images. Both filtered back projection and iterative [...] ventricular cavity. 4. SPECT images: Attenuation-corrected and gkg-qnxgscjdzeq-iddnqlsan SPECT images were evaluated. SPECT images demonstrate normal myocardial perfusion. There is a medium size, mild intensity defect located in the ynrtx-cc-xerjmg inferior myocardium . The defect is fixed [...] Kerri Mena MD, Cardiology Attending /KERRI LONG-LOWELL [facility] Pathology Reports: +/- 30 days of the [...] the Encounter. The data comes from all [place] treatment facilities. Date/Time Pathology Report Provider Source Jul 10, 2024 09:41 AM LR SURGICAL PATHOL OGY REPORT: LOCAL TITLE: LR SURGICAL PATHOLOGY REPORT DATE OF NOTE: JUL 10, 2024@09:41:15 ENTRY DATE: JUL 10, 2024@09:41:15 AUTHOR: JOE LEUNG EXP COSIGNER: URGENCY: STATUS: COMPLETED $APHDR Reporting Lab: [facility] [[facility]# [id number]] [address] [place] [id number] - - - - - - - [...] left earlobe and consists of an unoriented, hay-afbi-cvewdnl, yellow/white shave of skin measuring 0.5 x 0.4 x 0.2 cm. A rough papule is identified over the skin surface measuring 0.4 x 0.3 cm. The cut surface is yellow/white and grossly unremarkable. The cut surface is inked blue. The specimen is bisected to reveal a white solid interior. The specimen is submitted entirely in a single cassette. 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 /[place]/ JOE LEUNG pathologist Signed Jul 10, 2024@09:41 Performing Laboratory: Surgical Pathology Report Performed By: [facility] [CLIA# [id number]] [address] [place] [id number] $FTR - - - - - - - - - - - - - - - - - - - - - - - - - - - - - - - - - - - - - - - - (End of report) JOE LEUNG MD [facility] Date Jul 10, 2024 - - - - - - - - - - - - - - - - - - - - - - - - - - - - - - - - - - - - - - - - ERIK GALLEGO STANDARD FORM 515 ID:[id number] SEX:M :1945 AGE: 78 LOC:PATH PCP: Laura Steinberg MD /[place]/ JOE LEUNG pathologist Signed: 07/10/2024 09:41 JOE LEUNG BROCKET-D [facility] Encounter Notes: All associated encounter notes This section contains the clinical notes associated to the Encounter. Date/Time Encounter Note(s) Provider Source Jun 21, 2024 06:01 PM MEDICATION MGT NOT E: LOCAL TITLE: OUTPATIENT ESSENTIAL MEDICATION LIST FOR REVIEW (EM STANDARD TITLE: MEDICATION MGT NOTE DATE OF NOTE: JUN 21, 2024@18:01 ENTRY DATE: JUN 21, 2024@18:02:02 AUTHOR: LAURA STEINBERG EXP COSIGNER: URGENCY: STATUS: COMPLETED Review of medications include: Patient allergies (Remote and Local) and active and pending prescriptions dispensed from this [place] (local) and dispensed from another [place] or [facility] facility (remote and pending) as well as local inpatient orders (pending and active) and clinic medications (IMOs), locally documented non-VA medications and local prescriptions that have or been discontinued in the past 90 days. With the exception of Allergies, if a category is not listed below, it means there were no relevant medications for the patient. ALLERGIES: LISINOPRIL, FOSINOPRIL, PERCOCET No Remote Allergy/ADR Data available for this patient ACTIVE OUTPATIENT MEDICATIONS LOCAL/REMOTE ACCU-CHEK GUIDE (GLUCOSE) TEST STRIP Directions: USE 1 STRIP TO TEST BLOOD SUGAR 3-4 TIMES WEEKLY Quantity: 50 for 90 days Issued: 02/14/24 Filled: 05/26/24 Expires: 02/14/25 Refills: 2 Status: ACTIVE ALOH 160/MG CARB 105MG CHEW TAB Directions: CHEW 1 TABLET BY MOUTH AFTER MEALS NEEDED FOR INDIGESTION/REFLUX Quantity: 100 for 30 days Issued: 10/26/23 Filled: 02/04/24 Expires: 10/26/24 Refills: 0 Status: ACTIVE AMLODIPINE BESYLATE 2.5MG TAB Directions: TAKE ONE TABLET BY MOUTH DAILY FOR HIGH BLOOD PRESSURE -DO NOT DRINK GRAPEFRUIT JUICE WHILE ON THIS DRUG Quantity: 90 for 90 days Issued: 05/07/24 Filled: 05/07/24 Expires: 08/05/24 Refills: 0 Status: ACTIVE ASPIRIN 81MG EC TAB Directions: TAKE ONE TABLET BY MOUTH DAILY FOR HEART Quantity: 90 for 90 days Issued: 06/20/24 Filled: 06/20/24 Expires: 06/21/25 Refills: 1 Status: ACTIVE ATORVASTATIN CALCIUM 80MG TAB Directions: TAKE ONE TABLET BY MOUTH DAILY FOR CHOLESTEROL -DO NOT DRINK GRAPEFRUIT JUICE WHILE ON THIS DRUG Quantity: 90 for 90 days Issued: 06/10/24 Filled: 06/11/24 Expires: 06/11/25 Refills: 3 Status: ACTIVE CHOLECALCIF 25MCG (D3-1,000UNIT) TAB Directions: TAKE FOUR TABLETS BY MOUTH DAILY FOR VITAMIN D SUPPLEMENT Quantity: 400 for 90 days Issued: 02/14/24 Filled: 05/26/24 Expires: 02/14/25 Refills: 2 Status: ACTIVE CLOPIDOGREL BISULFATE 75MG TAB Directions: TAKE ONE TABLET BY MOUTH DAILY TO THIN BLOOD Quantity: 90 for 90 days Issued: 06/20/24 Filled: 06/20/24 Expires: 06/21/25 Refills: 1 Status: ACTIVE CLOTRIMAZOLE 1% TOP SOLN Directions: APPLY SMALL AMOUNT TO AFFECTED AREA TWICE A DAY FOR FUNGAL INFECTION Quantity: 30 for 30 days Issued: 07/13/23 Filled: 02/04/24 Expires: 07/13/24 Refills: 0 Status: ACTIVE CYANOCOBALAMIN 1000MCG TAB Directions: TAKE ONE TABLET BY MOUTH DAILY FOR VITAMIN B12 SUPPLEMENT Quantity: 90 for 90 days Issued: 02/14/24 Filled: 06/04/24 Expires: 02/14/25 Refills: 2 Status: ACTIVE DICLOFENAC NA 1% TOP GEL Directions: APPLY SMALL AMOUNT TO AFFECTED AREA EVERY 6 HOURS NEEDED FOR SHOULDER PAIN Quantity: 300 for 90 days Issued: 02/14/24 Filled: 05/19/24 Expires: 02/14/25 Refills: 2 Status: ACTIVE FLUTICASONE PROP 50MCG 120D NASAL INHL Directions: USE 2 SPRAYS IN EACH NOSTRIL DAILY FOR NASAL ALLERGY Quantity: 3 for 90 days Issued: 02/14/24 Filled: 05/26/24 Expires: 02/14/25 Refills: 2 Status: ACTIVE FUROSEMIDE 20MG TAB Directions: TAKE ONE TABLET BY MOUTH EVERY MORNING FOR FLUID Quantity: 60 for 60 days Issued: 05/07/24 Filled: 05/07/24 Expires: 07/06/24 Refills: 0 Status: ACTIVE GABAPENTIN 300MG CAP Directions: TAKE ONE CAPSULE BY MOUTH EVERY MORNING AND TAKE ONE CAPSULE AT NOON AND TAKE TWO CAPSULES EVERY EVENING FOR PAIN Quantity: 120 for 30 days Issued: 02/14/24 Filled: 04/22/24 Expires: 02/14/25 Refills: 0 Status: ACTIVE LIDOCAINE 5% 5IN X 6IN PATCH Directions: APPLY 2 PATCHES TO SKIN DAILY FOR PAIN -LEAVE ON 12 HOURS, THEN REMOVE FOR 12 HOURS Quantity: 60 for 30 days Issued: 02/14/24 Filled: 05/13/24 Expires: 02/14/25 Refills: 9 Status: ACTIVE LORATADINE 10MG TAB Directions: TAKE ONE TABLET BY MOUTH DAILY FOR ALLERGIES Quantity: 90 for 90 days Issued: 02/14/24 Filled: 06/03/24 Expires: 02/14/25 Refills: 2 Status: ACTIVE LOSARTAN 100MG TAB Directions: TAKE ONE TABLET BY MOUTH DAILY FOR BLOOD PRESSURE STOPPING THE HCTZ Quantity: 90 for 90 days Issued: 04/16/24 Filled: 04/16/24 Expires: 07/15/24 Refills: 0 Status: ACTIVE MAGNESIUM OXIDE 420MG TAB Directions: TAKE ONE TABLET BY MOUTH TWICE A DAY FOR SUPPLEMENT Quantity: 200 for 90 days Issued: 04/16/24 Filled: 04/16/24 Expires: 07/15/24 Refills: 0 Status: ACTIVE METFORMIN HCL 1000MG TAB Directions: TAKE ONE TABLET BY MOUTH TWICE A DAY FOR DIABETES Quantity: 180 for 90 days Issued: 02/14/24 Filled: 05/26/24 Expires: 02/14/25 Refills: 2 Status: ACTIVE METOPROLOL SUCCINATE 50MG SA TAB Directions: TAKE ONE-HALF TABLET BY MOUTH DAILY FOR BLOOD PRESSURE/HEART Quantity: 45 for 90 days Issued: 06/10/24 Filled: 06/11/24 Expires: 06/11/25 Refills: 3 Status: ACTIVE MULTIVIT/OPHTH AREDS2/LUTE/ZEAX CAP/TAB Directions: TAKE 1 SOFTGEL BY MOUTH TWICE A DAY AFTER MEALS FOR EYE HEALTH Quantity: 120 for 60 days Issued: 04/25/24 Filled: 06/14/24 Expires: 04/26/25 Refills: 4 Status: ACTIVE MUPIROCIN 2% OINT Directions: APPLY SMALL AMOUNT TO AFFECTED AREA DAILY TO PREVENT INFECTION -APPLY DAILY TO TREATMENT SITES AFTER CLEANING. THIS IS A TOPICAL ANTIBIOTIC. Quantity: 22 for 30 days Issued: 01/22/24 Filled: 05/13/24 Expires: 01/22/25 Refills: 8 Status: ACTIVE PANTOPRAZOLE NA 40MG EC TAB Directions: TAKE ONE TABLET BY MOUTH TWICE A DAY 30 MINUTES BEFORE A MEAL FOR STOMACH -TAKE ON AN EMPTY STOMACH. Quantity: 180 for 90 days Issued: 06/26/23 Filled: 12/13/23 Expires: 06/26/24 Refills: 0 Status: ACTIVE PIOGLITAZONE HCL 30MG TAB Directions: TAKE ONE TABLET BY MOUTH DAILY FOR DIABETES Quantity: 90 for 90 days Issued: 02/14/24 Filled: 05/28/24 Expires: 02/14/25 Refills: 2 Status: ACTIVE PRAZOSIN HCL 1MG CAP Directions: TAKE ONE CAPSULE BY MOUTH AT BEDTIME FOR NIGHTMARES. TAKE IN ADDITION TO 5 MG CAPSULE FOR TOTAL OF 6 MG AT BEDTIME Quantity: 90 for 90 days Issued: 04/15/24 Filled: 04/16/24 Expires: 07/14/24 Refills: 0 Status: ACTIVE SERTRALINE HCL 100MG TAB Directions: TAKE ONE AND ONE-HALF TABLETS BY MOUTH EVERY MORNING FOR MOOD Quantity: 135 for 90 days Issued: 04/15/24 Filled: 06/24/24 Expires: 04/16/25 Refills: 1 Status: ACTIVE TABLET CUTTER Directions: USE TO SPLIT TABLETS DIRECTED NEEDED Quantity: 1 for 30 days Issued: 06/10/24 Filled: 06/11/24 Expires: 07/10/24 Refills: 0 Status: ACTIVE TRIAMCINOLONE ACETONIDE 0.1% OINT Directions: APPLY SMALL AMOUNT TO AFFECTED AREA TWICE A DAY FOR SKIN RASH Quantity: 30 for 30 days Issued: 11/29/23 Filled: 02/04/24 Expires: 11/29/24 Refills: 0 Status: ACTIVE MIRTAZAPINE 15MG TAB Directions: TAKE ONE-HALF TABLET BY MOUTH AT BEDTIME FOR SLEEP Quantity: 45 for 90 days Issued: 04/15/24 Filled: 07/12/24 Expires: 04/16/25 Refills: 1 Status: ACTIVE/SUSP PRAZOSIN HCL 5MG CAP Directions: TAKE ONE CAPSULE BY MOUTH AT BEDTIME FOR NIGHTMARES Quantity: 90 for 90 days Issued: 04/15/24 Filled: 07/12/24 Expires: 04/16/25 Refills: 1 Status: ACTIVE/SUSP No remote medications found. PENDING OUTPATIENT MEDICATIONS (LOCAL/REMOTE): No local medications found. No remote medications found. ACTIVE NONVA MEDICATIONS (LOCAL): No local medications found. OUTPATIENT MEDICATIONS (LOCAL)WITHIN 90 DAYS: MIRTAZAPINE 15MG TAB Directions: TAKE ONE-HALF TABLET BY MOUTH AT BEDTIME FOR SLEEP Quantity: 45 for 90 days Issued: 04/15/24 Filled: 07/12/24 Expires: 04/16/25 Refills: 1 Status: ACTIVE/SUSP PRAZOSIN HCL 5MG CAP Directions: TAKE ONE CAPSULE BY MOUTH AT BEDTIME FOR NIGHTMARES Quantity: 90 for 90 days Issued: 04/15/24 Filled: 07/12/24 Expires: 04/16/25 Refills: 1 Status: ACTIVE/SUSP CEPHALEXIN 500MG CAP Directions: TAKE ONE CAPSULE BY MOUTH THREE TIMES A DAY FOR SKIN OR SOFT TISSUE INFECTION Quantity: 21 for 7 days Issued: 02/28/24 Filled: 02/28/24 Expires: 03/29/24 Refills: 0 Status: DISCONTINUED OUTPATIENT MEDICATIONS (LOCAL) WITHIN 90 DAYS: MIRTAZAPINE 15MG TAB Directions: TAKE ONE-HALF TABLET BY MOUTH AT BEDTIME FOR SLEEP Quantity: 45 for 90 days Issued: 04/15/24 Filled: 07/12/24 Expires: 04/16/25 Refills: 1 Status: ACTIVE/SUSP PRAZOSIN HCL 5MG CAP Directions: TAKE ONE CAPSULE BY MOUTH AT BEDTIME FOR NIGHTMARES Quantity: 90 for 90 days Issued: 04/15/24 Filled: 07/12/24 Expires: 04/16/25 Refills: 1 Status: ACTIVE/SUSP CYANOCOBALAMIN 1000MCG TAB Directions: TAKE ONE TABLET BY MOUTH DAILY FOR VITAMIN B12 SUPPLEMENT Quantity: 90 for 90 days Issued: 07/16/23 Filled: 12/17/23 Expires: 07/16/24 Refills: 2 Status: DISCONTINUED GABAPENTIN 300MG CAP Directions: TAKE ONE CAPSULE BY MOUTH EVERY MORNING AND TAKE ONE CAPSULE AT NOON AND TAKE TWO CAPSULES EVERY EVENING FOR PAIN Quantity: 120 for 30 days Issued: 10/23/23 Filled: 02/04/24 Expires: 10/23/24 Refills: 0 Status: DISCONTINUED HCTZ 12.5MG/LOSARTAN 100MG TAB Directions: TAKE 1 TABLET BY MOUTH DAILY FOR BLOOD PRESSURE/HEART Quantity: 90 for 90 days Issued: 07/16/23 Filled: 12/16/23 Expires: 07/16/24 Refills: 2 Status: DISCONTINUED HCTZ 12.5MG/LOSARTAN 100MG TAB Directions: TAKE 1 TABLET BY MOUTH DAILY FOR BLOOD PRESSURE/HEART Quantity: 90 for 90 days Issued: 02/14/24 Filled: 03/15/24 Expires: 02/14/25 Refills: 3 Status: DISCONTINUED LORATADINE 10MG TAB Directions: TAKE ONE TABLET BY MOUTH DAILY FOR ALLERGIES Quantity: 90 for 90 days Issued: 07/16/23 Filled: 12/16/23 Expires: 07/16/24 Refills: 2 Status: DISCONTINUED MIRTAZAPINE 15MG TAB Directions: TAKE ONE-HALF TABLET BY MOUTH AT BEDTIME FOR SLEEP Quantity: 45 for 90 days Issued: 12/27/23 Filled: 04/13/24 Expires: 12/27/24 Refills: 0 Status: DISCONTINUED PRAZOSIN HCL 5MG CAP Directions: TAKE ONE CAPSULE BY MOUTH AT BEDTIME FOR NIGHTMARES Quantity: 90 for 90 days Issued: 12/27/23 Filled: 04/13/24 Expires: 12/27/24 Refills: 0 Status: DISCONTINUED SERTRALINE HCL 100MG TAB Directions: TAKE ONE AND ONE-HALF TABLETS BY MOUTH EVERY MORNING FOR MOOD Quantity: 135 for 90 days Issued: 12/27/23 Filled: 03/26/24 Expires: 12/27/24 Refills: 0 Status: DISCONTINUED TRIAMCINOLONE ACETONIDE 0.1% OINT Directions: APPLY SMALL AMOUNT TO AFFECTED AREA TWICE A DAY FOR SKIN RASH Quantity: 30 for 30 days Issued: 11/28/23 Filled: 11/28/23 Expires: 11/28/24 Refills: 1 Status: DISCONTINUED GABAPENTIN 300MG CAP Directions: TAKE ONE CAPSULE BY MOUTH EVERY MORNING AND TAKE ONE CAPSULE AT NOON AND TAKE TWO CAPSULES EVERY EVENING FOR PAIN Quantity: 120 for 30 days Issued: 06/26/23 Filled: 09/01/23 Expires: 06/26/24 Refills: 0 Status: DISCONTINUED (EDIT) CLINIC MEDICATIONS (LOCAL): SODIUM CHLORIDE 0.9% INJ,SOLN Solution: SODIUM CHLORIDE 0.9% (1000 ML) Issued: 04/16/24 Expires: 04/17/24 Status: SODIUM CHLORIDE 0.9% INJ,SOLN Solution: SODIUM CHLORIDE 0.9% (1000 ML) Issued: 04/16/24 Expires: 04/17/24 Status: MAGNESIUM SULFATE 1G/5% DEXTROSE 100ML Directions: 8MEQ(1GRAM) IV ONCE Special: BAG 1 OF 2 INFUSE OVER 30 MINUTES Issued: 04/16/24 Expires: 04/16/24 Status: MAGNESIUM SULFATE 1G/5% DEXTROSE 100ML Directions: 8MEQ(1GRAM) IV ONCE Special: BAG 2 OF 2 INFUSE OVER 30 MINUTES Issued: 04/16/24 Expires: 04/16/24 Status: /es/ Laura Steinberg MD Primary Care Physician Signed: 06/21/2024 18:02 [facility] Jun 20, 2024 09:29 AM PRIMARY CARE NOTE: LOCAL TITLE: PC PROGRESS NOTE STANDARD TITLE: PRIMARY CARE NOTE DATE OF NOTE: JUN 20, 2024@09:29 ENTRY DATE: JUN 20, 2024@09:29:39 AUTHOR: LAURA STEINBERG EXP COSIGNER: URGENCY: STATUS: COMPLETED PC PROGRESS NOTE Has ADDENDA Age-78 Chief complaint: Hospital follow-up HPI: Patient and his daughter present for hospital follow-up from [facility] with discharge summary showing admission on May 29 with discharge May 30, 2024. He presented to [facility] due to symptoms consistent with unstable angina. EKG was consistent with a right bundle branch block, sinus tachycardia, right axis deviation and some ST segment depression in the lateral leads. Troponin was negative. Interventional cardiology was consulted and he underwent a left and right heart cath with stent placement to the LAD. Pulmonary hypertension was noted on the right heart cath. Patient will bring his echocardiogram and cardiac cath reports from 05/30/2024 to his cardiology appointment at the [place] (pending). Cardiology follow-up on June 05, 2024 showed the plan was to continue Plavix and aspirin and start diuretics. A pulmonology consult was recommended. Dr. eLo documented I am not entirely convinced the proximal LAD lesion was etiology for patient's symptoms. This does not explain the moderate pulmonary hypertension. He recommended a sleep study and further workup per pulmonology. Patient has a diagnosis of sleep apnea and reports wearing every night. Patient began cardiac rehab at [facility]. Pulmonary consult is scheduled for July 10. Medical History: Active problems - Computerized Problem List is the source for the followin. Pulmonary hypertension 2. Exposure to potentially hazardous substance 3. Obstructive sleep apnea 4. Pseudophakia 5. Chronic post-traumatic stress disorder 6. Polyp of colon repeat colonoscopy due 12/2018 7. Vitamin B12 deficiency (non anemic) 8. Lumbar Radiculopathy 9. 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 Osteoarthritis (SNOMED CT 323943082) 12. Gastro-esophageal reflux disease with esophagitis (SNOMED CT 383066268) 13. Allergic rhinitis * 14. Hypertension (SNOMED CT 01319025) 15. Diabetes mellitus (SNOMED CT 06653204) 16. NEPHROLITHIASIS 17. Gout * Active Outpatient Medications (including Supplies): Active Outpatient Medications Status 1) ACCU-CHEK GUIDE (GLUCOSE) TEST STRIP USE [...] DRUG Indication: FOR HIGH BLOOD PRESSURE 4) ATORVASTATIN CALCIUM 80MG TAB TAKE ONE TABLET BY MOUTH DAILY ACTIVE -DO NOT DRINK GRAPEFRUIT JUICE WHILE ON THIS DRUG Indication: FOR CHOLESTEROL 5) CHOLECALCIF 25MCG (D3-1,000UNIT) TAB TAKE FOUR TABLETS BY ACTIVE MOUTH DAILY FOR VITAMIN D SUPPLEMENT 6) CLOTRIMAZOLE 1% TOP SOLN APPLY SMALL AMOUNT TO AFFECTED AREA ACTIVE TWICE A DAY Indication: FOR FUNGAL INFECTION 7) CYANOCOBALAMIN 1000MCG TAB TAKE ONE TABLET BY MOUTH DAILY ACTIVE Indication: FOR VITAMIN B12 SUPPLEMENT 8) DICLOFENAC NA 1% TOP GEL APPLY SMALL AMOUNT TO AFFECTED AREA ACTIVE EVERY 6 HOURS NEEDED FOR SHOULDER PAIN 9) FLUTICASONE PROP 50MCG 120D NASAL INHL USE 2 SPRAYS IN EACH ACTIVE NOSTRIL DAILY FOR NASAL ALLERGY 10) FUROSEMIDE 20MG TAB TAKE ONE TABLET BY MOUTH EVERY MORNING ACTIVE Indication: FOR FLUID 11) GABAPENTIN 300MG CAP TAKE ONE CAPSULE BY MOUTH EVERY MORNING ACTIVE AND TAKE ONE CAPSULE AT NOON AND TAKE TWO CAPSULES EVERY EVENING FOR PAIN Indication: FOR NERVE PAIN 12) LIDOCAINE 5% 5IN X 6IN PATCH APPLY 2 PATCHES TO SKIN DAILY ACTIVE -LEAVE ON 12 HOURS, THEN REMOVE FOR 12 HOURS Indication: FOR PAIN 13) LORATADINE 10MG TAB TAKE ONE TABLET BY MOUTH DAILY FOR ACTIVE ALLERGIES 14) LOSARTAN 100MG TAB TAKE ONE TABLET BY MOUTH DAILY STOPPING ACTIVE THE HCTZ Indication: FOR BLOOD PRESSURE 15) MAGNESIUM OXIDE 420MG TAB TAKE ONE TABLET BY MOUTH TWICE A ACTIVE DAY Indication: FOR SUPPLEMENT 16) METFORMIN HCL 1000MG TAB TAKE ONE TABLET BY MOUTH TWICE A ACTIVE DAY FOR DIABETES 17) METOPROLOL SUCCINATE 50MG SA TAB TAKE ONE-HALF TABLET BY ACTIVE MOUTH DAILY Indication: FOR BLOOD PRESSURE/HEART 18) MIRTAZAPINE 15MG TAB TAKE ONE-HALF TABLET BY MOUTH AT ACTIVE (S) BEDTIME Indication: FOR SLEEP 19) MULTIVIT/OPHTH AREDS2/LUTE/ZEAX CAP/TAB TAKE 1 SOFTGEL BY ACTIVE MOUTH TWICE A DAY AFTER MEALS Indication: FOR EYE HEALTH 20) MUPIROCIN 2% OINT APPLY SMALL AMOUNT TO AFFECTED AREA DAILY ACTIVE -APPLY DAILY TO TREATMENT SITES AFTER CLEANING. THIS IS A TOPICAL ANTIBIOTIC. Indication: TO PREVENT INFECTION 21) PANTOPRAZOLE NA 40MG EC TAB TAKE ONE TABLET BY MOUTH TWICE A ACTIVE DAY 30 MINUTES BEFORE A MEAL -TAKE ON AN EMPTY STOMACH. Indication: FOR STOMACH 22) PIOGLITAZONE HCL 30MG TAB TAKE ONE TABLET BY MOUTH DAILY FOR ACTIVE DIABETES Indication: FOR BLOOD SUGAR 23) PRAZOSIN HCL 1MG CAP TAKE ONE CAPSULE BY MOUTH AT BEDTIME ACTIVE TAKE IN ADDITION TO 5 MG CAPSULE FOR TOTAL OF 6 MG AT BEDTIME Indication: FOR NIGHTMARES. 24) PRAZOSIN HCL 5MG CAP TAKE ONE CAPSULE BY MOUTH AT BEDTIME ACTIVE (S) Indication: FOR NIGHTMARES 25) SERTRALINE HCL 100MG TAB TAKE ONE AND ONE-HALF TABLETS BY ACTIVE MOUTH EVERY MORNING Indication: FOR MOOD 26) TABLET CUTTER USE TO SPLIT TABLETS DIRECTED NEEDED ACTIVE 27) TRIAMCINOLONE ACETONIDE 0.1% OINT APPLY SMALL AMOUNT TO ACTIVE AFFECTED AREA TWICE A DAY Indication: FOR SKIN RASH allergies:LISINOPRIL, FOSINOPRIL, PERCOCET PE: 209 lb [94.80 kg] (06/20/2024 08:54) 70 in [177.8 cm] (06/20/2024 08:54) Measurement DT BP 06/20/2024 08:54 133/77 73 (06/20/2024 08:54) BODY MASS INDEX - 30.1 PULSE OX: Measurement DT POx (L/MIN)(%) 06/20/2024 08:54 98 Gen: WN WD WM Pulm: B CTA; nl respiratory rate CV: RRR no M/R/G; no carotid bruits; no edema ECHO - NONE FOUND Lipid Prof Danyell. date CHOL TRIG HDL LIPID PHLDL CHOLSERUM AP 02/14/24 10:19 161 84 54 PANEL 1 Danyell. date GLUCOSE BUN CREAT SODIUM K CHLOR CO2 05/15/24 09:46 151 H 20 1.54 H 140 4.0 104 28 The OBJECT CBC CUMULATIVE (08/14Y) was NOT found...Contact IRM. Collection DT Specimen Test Name Result Units Ref Range 02/14/2024 10:19 PLASMA!! TSH 1.1076 mIU/mL 0.3500 - 4.9400 07/16/2023 08:59 PLASMA!! TSH 1.8565 mIU/mL 0.3500 - 4.9400 !! Indicates COMMENTS AVAILABLE...Refer to Interim Lab Report. Z PROSTATIC ANTIGEN - NONE FOUND Z GLYCOHEMOGLOBIN (HPLC) 02/14/24 10:19 6.0 07/16/23 08:59 6.9 H A/P: 1. CAD - s/p LAD stent; continue Plavix 75 mg daily, EC ASA 81 mg daily, atorvastatin 80 mg, and metoprolol succinate 25 mg; [place] cardiology consult pending; continue cardiac rehab; patient was prescribed Lasix (unknown dose) and will submit outside records with lab work for prescription to be obtained at the [place] Follow up: As scheduled I spent 30 min today reviewing last visit notes, evaluating and managing the patients conditions, and documenting clinic information in health record. __ Preparing to see patient (tests, reviewing last progress note) _x_ Perform medically necessary Exam _x_ Order tests, procedures, medications _x_ Documenting clinical info in health record __ Independently interpreting results and communicating results to patient/caregiver ___ Refer and/or communicate with other providers regarding patient ___ Obtain/review separately obtained history ___ Placed consult MEDICATION RECONCILIATION: The Outpt Essential Med List for review (EMLR) was reviewed w/the pt and the pt declined an updated reconciled med list w/discrepancies corrected. The patient/caregiver verbalized understanding of the topics covered/discussed in today's visit. Patient/caregiver were given the opportunity to ask questions to MD. /peyton/ Laura Steinberg MD Primary Care Physician Signed: 06/21/2024 18:01 06/24/2024 ADDENDUM STATUS: COMPLETED Pulmonary evaluation at [facility] on June 17, [address] scan obtained on May 29 (from [facility]) was concerning for possible interstitial lung disease/sarcoidosis in the setting of patient's pulmonary hypertension. Bronchoscopy was discussed. Plan was to schedule 3-month follow-up chest CT without contrast. He had mediastinal hilar lymphadenopathy and serum fungal serologies were ordered. /peyton/ Laura Steinberg MD Primary Care Physician Signed: 06/24/2024 16:49 [facility] Jun 20, 2024 08:55 AM PRIMARY CARE JOSEI TRAVIS NOTE: LOCAL TITLE: Pc Health Tech/guest room attendant Note STANDARD TITLE: PRIMARY CARE NURSING NOTE DATE OF NOTE: JUN 20, 2024@08:55 ENTRY DATE: JUN 20, 2024@08:55:15 AUTHOR: ERICA FELDMAN EXP COSIGNER: URGENCY: STATUS: COMPLETED COVID-19 Immunization: Refused Moderna Monovalent COVID-19 vaccine Immunization: COVID-19 (MODERNA), MRNA, LNP-S, PF, 50 MCG/0.5 ML (AGES 12+ YEARS) Refusal Reason: PATIENT DECISION Patient refuses all immunization(s) in the COVID-19 group Date Documented: 03/07/25 08:55 Herpes Zoster (Shingles) Vaccine: Administered: ZOSTER RECOMBINANT Date Administered: Jun 20, 2024 08:55 Leakage Tester: Mobile Patrol Lot: [id number] Exp Date: Feb 26, 2026 ND: [id number] Admin Route/Site: INTRAMUSCULAR/LEFT DELTOID Dosage: 0.5mL Vaccine Information Statement(s): RECOMBINANT ZOSTER VACCINE VIS May 20, 2021 (GERMAN) Order By: Policy Administered By: Erica Feldman The Recombinant Zoster Vaccine Information Statement (VIS) was reviewed with the patient/caregiver which lists the benefits and risks of the vaccine and the risks of not receiving the Recombinant Zoster vaccine. The patient/caregiver denied any prior severe reaction to this vaccine or its components or a severe allergic reaction, such as anaphylaxis, to any vaccine or any injectable therapy. The patient/caregiver gave verbal consent to receive the vaccine. Td/Tdap Immunization: Td (adult) adsorbed, preservative free (Tenivac) Administered: TD (ADULT), 5 LF TETANUS TOXOID, PRESERVATIVE FREE, ADSORBED Date Administered: Jun 20, 2024 08:56 Leakage Tester: SANOFI PASTEUR Lot: [id number] Exp Date: September 13, 2025 NDC: [id number] Admin Route/Site: INTRAMUSCULAR/RIGHT DELTOID Dosage: 0.5mL Vaccine Information Statement(s): TD (TETANUS, DIPHTHERIA) VACCINE VIS Nov 19, 2020 (GERMAN) Order By: Policy Administered By: Erica Feldman Vaccine Information Sheet (VIS) was given to the patient/caregiver, education regarding adverse reactions was discussed, as well as barriers to learning, if any, were acknowledged. RSV Immunization: Respiratory Syncytial Virus (RSV) Vaccine: Refused Pfizer (Abrysvo, RSVpreF vaccine). Immunization: RSV, BIVALENT, PROTEIN SUBUNIT RSVPREF, DILUENT RECONSTITUTED, 0.5 ML, PF Refusal Reason: PATIENT DECISION Patient refuses all immunization(s) in the RSV group Date Documented: 06/20/24 08:56 /peyton/ Erica Feldman LPN LPN Signed: 06/20/2024 08:56 [facility]
--- OUTSIDE RECORDS SUMMARY | 2024-07-24 21:23 | XMS_ITS | Encounter Summary ---
Author Name [facility] [place] [place] [facility] [place] Address [address] [place] [id number] Care Team Providers Care Electrical Technology Instructor Name Role Phone LAURA MCKEON Primary [...] PART A Oct 14, 2009 PART A [id number] [phone] Alex GALLEGO PATIENT MEDICARE (WNR) MEDICARE (M) PART B Oct 14, 2009 PART B [id number] Alex GALLEGO PATIENT MEDICARE (WNR) MEDICARE (M) PART A Oct 14, 2009 PART A [id number] Alex GALLEGO PATIENT MEDICARE (WNR) MEDICARE (M) PART B Oct 14, 2009 PART B [id number] Alex GALLEGO PATIENT MEDICARE (WNR) MEDICARE (M) PART A Oct 14, 2009 PART A [id number] Alex GALLEGO PATIENT MEDICARE (WNR) MEDICARE (M) PART B Oct 14, 2009 PART B [id number] Alex GALLEGO PATIENT Selected Encounter This section includes the information on record at [place] for the Encounter. Date/Time Encounter Type Encounter Description Reason Provider Source Jan 31, 2024 11:36 AM Outpatient Encounter AMBULATORY ELVIN HUMPHREYS Encounter Template Text not used by [place] Plan of Treatment: Future Appointments (+ 6 months) and Future Tests (+/- 45 days) The Plan of Treatment section includes future care activities for the [facility] [place] [facility] This section includes future appointments and future orders which are active, pending or scheduled. Future Appointments This section includes appointments that were scheduled to occur 6 months from the date of the Encounter, up to a maximum of 20 appointments. The data comes from all [place] treatment facilities. Appointment Date/Time Appointment Type Appointme nt Facility Name Feb 14, 2024 08:30 AM [facility]ORY - NONE [place] [facility] Feb 14, 2024 10:00 AM [facility] - [facility] [place] [facility] Feb 27, 2024 02:00 PM [facility]ORY - NONE [place] [facility] Feb 28, 2024 01:30 PM [facility] - [facility] [place] [facility] Feb 28, 2024 02:30 PM AMBULATORY - REHAB MEDICIN E [facility] Feb 29, 2024 09:20 AM [facility] - [facility] [place] [facility] Mar 04, 2024 09:00 AM AM[facility]ULATORY - [facility]CHIATRY [facility] Mar 17, 2024 01:00 PM [facility]ORY - [facility]GERY [place] [facility] Mar 18, 2024 08:30 AM AMBULATORY - REHAB MEDICIN E [facility] Mar 18, 2024 10:00 AM [facility] - [facility] [place] [facility] Mar 28, 2024 08:00 AM [facility]ORY - NONE [place] [facility] Apr 01, 2024 10:00 AM AM[facility]ORY - [facility]IATRY [facility] Apr 15, 2024 09:00 AM AM[facility]ORY - PS[facility]CHIATRY [facility] Apr 16, 2024 11:35 AM AMBULATORY - MEDICINE [facility] Apr 25, 2024 08:30 AM [facility] Apr 29, 2024 10:00 AM AMBULATORY - MEDICINE [facility] May 06, 2024 10:00 AM AM[facility] - [facility]IATRY [facility] May 07, 2024 10:00 AM AMBULATORY - MEDICINE [facility] May 15, 2024 10:30 AM AMBULATORY - REHAB MEDICIN E [facility] May 20, 2024 08:00 AM [facility] - NONE [place] [facility] Lab Results: +/- 30 days of [...] Type Comment Feb 14, 2024 10:41 AM [facility] N MICROALBUMIN/CREAT RATIO URINE Specimen Type: URINE No comment entered. Ordering Provider: LAURA MCKEON Report Released Date/Time: Feb 14, 2024 09:03 AM Reporting Lab: [address] [address] Performing Lab: [address] [address] CREATININE 133.0 mg/dL MICROALBUMIN QUANT 5.8 mg/L 0.0-30.0 .MICROALBUMIN/CREA RATIO 4.4 ug/mg{creat} Feb 14, 2024 10:41 AM [facility] DRUG SCREEN EXPANDED IN-HOUSE URINE [...] Feb 14, 2024 09:03 AM Reporting Lab: [facility] [address] [facility] [address] Performing Lab: [address] [address] TETRAHYDROCANNABINOL SCREEN NEG Cuto ff < 50 [...] < 1 Feb 14, 2024 10:19 AM [facility] LIPID PROFILE PLASMA Specimen Type: [...] Feb 14, 2024 09:03 AM Reporting Lab: [address] [address] Performing Lab: [address] [address] CHOLESTEROL 161 mg/dL 0-199 TRIGLYCERIDE 84 mg/dL 0-149 HDL CHOLESTEROL 54 mg/dL 40-69 DIRECT LDL CHOL. 95 mg/dL 0-100 Feb 14, 2024 10:19 AM [facility] GLYCOHEMOGLOBIN BLOOD Specimen Type: BLOOD Comment: [place] guidelines for A1c interpretation: Glycemic control targets are based on Shared Decision Making between clinicians and patients. Criteria used to establish an A1c target recommendation can be found at https://www.sc.gov/qualityandpatientsafety/ and include the use of result accuracy [...] 8.73 and 9.27. Ref: https://ngsp.org/CAPdata.asp. The in-house [employer]-Fleck D-100 analyzer has a historical CV <= 2%. Contact the laboratory for further performance characteristics of this assay. Ordering Provider: LAURA MCKEON Report Released Date/Time: Feb 14, 2024 09:03 AM Reporting Lab: [address] [address] Performing Lab: [facility] [address] [facility] [address] GLYCOHEMOGLOBIN 6.0 4.4-6.4 Feb 14, 2024 10:19 AM [facility] B12 VITAMIN PLASMA Specimen Type: PLASM [...] Feb 14, 2024 09:03 AM Reporting Lab: [facility] [address] [facility] [address] Performing Lab: [facility] [address] [facility] [address] B12 VITAMIN 761 pg/mL 213-816 Feb 14, 2024 10:19 [facility] PLAS[facility] Specimen Type: PLASM A [...] Feb 14, 2024 09:03 AM Reporting Lab: [facility] [address] [place] [address] Performing Lab: [address] [address] CREATININE 1.38 mg/dL H 0.72-1.25 UREA NITROGEN [...] (CKD-EPI) 52 Feb 14, 2024 10:19 AM [facility] TSH PLASMA Specimen Type: PLASM [...] Feb 14, 2024 09:03 AM Reporting Lab: [address] [address] Performing Lab: [place] [id number] TSH 1.1076 m[IU]/mL 0.3500-4.9400 Feb 14, 2024 10:19 AM [facility] CBC/PLT BLOOD Specimen Type: BLOOD No comment entered. Ordering Provider: LAURA MCKEON Report Released Date/Time: Feb 14, 2024 09:03 AM Reporting Lab: [address] [address] Performing Lab: [address] [address] WBC 6.7 10*3/uL 5.0-10.0 RBC 5.17 10*6/uL 4.6-6.2 HGB 15.8 g/dL 14.0-18.0 HCT 47.1 42.0-52.0 MCV 91.1 fL 80.0-94.0 MCH 30.6 pg 27.0-31.0 MCHC 33.5 g/dL 32.0-36.0 PLT 257 10*3/uL 150-450 MPV 10.5 fL 9.0-13.1 RDW 14.4 11.0-16.0 NRBC 0.0 0.0-0.0 Feb 14, 2024 10:19 AM [facility] 25-OH VITAMIN D SERUM Specime [...] Feb 14, 2024 09:03 AM Reporting Lab: [address] [address] Performing Lab: [address] [address] 25-OH VITAMIN D 42.5 ng/mL 20.0-50.0 Jan 31, 2024 11:09 AM [facility] GLUCOSE-HAND MONITOR CAPILLARY Specime n Type: CAPILLARY Comment: $ Test performed by: [id number] Meter #: [id number] Ordering Provider: PELON CHEUNG Report Released Date/Time: Feb 04, 2024 07:19 AM Reporting Lab: [address] [address] Performing Lab: [address] [address] GLUCOSE-HAND MONITOR 125 mg/dL H 71-99 Pathology [...] the Encounter. The data comes from all [place] treatment facilities. Date/Time Pathology Report Provider Source Feb 05, 2024 03:20 PM [facility] SURGICAL PATHOL OGY REPORT: LOCAL TITLE: LR SURGICAL PATHOLOGY REPORT DATE OF NOTE: FEB 05, 2024@15:20:14 ENTRY DATE: FEB 05, 2024@15:20:14 AUTHOR: ROSS DOBSON COSIGNER: URGENCY: STATUS: COMPLETED $APHDR Reporting Lab: [facility] [CLIA# [id number]] [address] [place] [address] - - - - - - - [...] submitted in one cassette. CPT CODE - 33540 MICROSCOPIC EXAM/DIAGNOSIS: Right long finger cyst, excision: -Findings consistent with digital mucous cyst. /peyton/ Ross Dobson MD Pathologist Signed Feb 05, 2024@15:20 Performing Laboratory: Surgical Pathology Report Performed By: [facility] [[facility]# [id number]] [address] [place] [address] $FTR - - - - - - - - - - - - - - - - - - - - - - - - - - - - - - - - - - - - - - - - (End of report) ROSS DOBSON MD kl Date Feb 05, 2024 - - - - - - - - - - - - - - - - - - - - - - - - - - - - - - - - - - - - - - - - ERIK GALLEGO STANDARD FORM 515 ID:[id number] SEX:M :1945 AGE: 78 LOC:PATH PCP: Laura Mckeon MD /peyton/ Ross Dobson MD Pathologist Signed: 02/05/2024 15:20 [facility] Jan 31, 2024 12:13 PM LR SURGICAL PATHOL OGY REPORT: LOCAL TITLE: LR SURGICAL PATHOLOGY REPORT DATE OF NOTE: JAN 31, 2024@12:13:13 ENTRY DATE: JAN 31, 2024@12:13:13 AUTHOR: JUDY SIGALA EXP COSIGNER: URGENCY: STATUS: COMPLETED $APHDR Reporting Lab: [facility] [IA# [id number]] [address] [place] [address] - - - - - - - [...] CELL CARCINOMA LEFT PREAURICULAR CHEEK. CPT CODE: 16154 I ACTED BOTH THE SURGEON AND THE PATHOLOGIST FOR THIS CASE. PLEASE SEE CORRESPONDING MOHS NOTE IN CPRS AND MOHS MAP SCANNED TO [employer]. /es/ JUDY SIGALA Chief, Dermatology Signed Jan 31, 2024@12:13 Performing Laboratory: Surgical Pathology Report Performed By: [facility] [CLIA# [id number]] [address] [place] [address] $FTR - - - - - - - - - - - - - - - - - - - - - - - - - - - - - - - - - - - - - - - - (End of report) JUDY SIGALA MD [facility] Date Jan 22, 2024 - - - - - - - - - - - - - - - - - - - - - - - - - - - - - - - - - - - - - - - - ERIK GALLEGO STANDARD FORM 515 ID:[id number] SEX:M :1945 AGE: 78 LOC:DERM PCP: Laura Mckeon MD /peyton/ JUDY SIGALA Chief, Dermatology Signed: 01/31/2024 12:13 JUDY SIGALA-D [facility]
--- OUTSIDE RECORDS SUMMARY | 2024-07-24 21:23 | XMS_ITS | Encounter Summary ---
Author Name [facility] [place] Organization [facility] [place] Address [address] [place] [address] Care Team Providers Care Shift Manager Name Role Phone LAURA STEINBERG Primary Care [...] PART A Oct 14, 2009 PART A [id number] Alex GALLEGO PATIENT MEDICARE (WNR) MEDICARE (M) PART B Oct 14, 2009 PART B [id number] [phone] Alex GALLEGO PATIENT MEDICARE (WNR) MEDICARE (M) PART A Oct 14, 2009 PART A [id number] [phone] Alex GALLEGO PATIENT MEDICARE (WNR) MEDICARE (M) PART B Oct 14, 2009 PART B [id number] Alex GALLEGO PATIENT MEDICARE (WNR) MEDICARE (M) PART A Oct 14, 2009 PART A [id number] Alex GALLEGO PATIENT MEDICARE (WNR) MEDICARE (M) PART B Oct 14, 2009 PART B [id number] Alex GALLEGO PATIENT Selected Encounter This section includes the information on record at [place] for the Encounter. Date/Time Encounter Type Encounter Description Reason Provider Source Jul 08, 2024 10:00 AM OFFICE O/P EST LOW 20 MIN DERMATOLOGY ICD-10-CM D48.5 Neoplasm of uncertain behavior of skin PRITI ROGERS Jennifer Encounter Template Text not used by [place] Assessments - Encounter Diagnoses This section includes the primary and secondary diagnoses documented for the Encounter. Date/Time Primary/Secondary Diagnosis Diagnosis Name Provider Source Jul 08, 2024 10:20 AM PRIMARY [facility] of [facility] behavior [facility] Jul 08, 2024 10:20 AM SECONDARY Actinic keratosis [facility] Jul 08, 2024 10:20 AM SECONDARY Inflamed seborrheic keratosis [facility] Jul 08, 2024 10:20 AM SECONDARY Personal history of other malignant [facility]oplasm of [facility] Plan of Treatment: Future Appointments (+ 6 months) and Future Tests (+/- 45 days) The Plan of Treatment section includes future care activities for the patient from all [place] treatmentfacilities. This section includes future appointments and future orders which are active, pending or scheduled. Future Appointments This section includes appointments that were scheduled to occur 6 months from the date of the Encounter, up to a maximum of 20 appointments. The data comes from all [place] treatment facilities. Appointment Date/Time Appointment Type Appointme nt Facility Name Jul 10, 2024 08:30 AM [facility] Jul 24, 2024 03:00 PM [facility] - PS[facility]CHIATRY [facility] Aug 05, 2024 09:00 AM AMBULATORY - MEDICINE [facility] Aug 11, 2024 10:00 AM AMBULATORY - PSYCHIATRY [facility] Aug 12, 2024 09:00 AM AMBULATORY - MEDICINE [facility] August 18, 2024 09:00 AM AMBULATORY - SURGERY [facility] September 02, 2024 08:20 AM AMBULATORY - SURGERY [facility] HOLLOWAY [facility] Oct 01, 2024 09:00 AM AMBULATORY - NONE [facility] R[facility] Oct 30, 2024 09:00 AM AMBULATORY - PSYCHIATRY [facility] NICHOLAS [facility] Dec 09, 2024 08:00 AM [facility] - NONE [facility] Dec 31, 2024 08:30 AM AMBULATORY - MEDICINE [facility] SINGH [facility] Lab Results: +/- 30 days of the encounter This section includes the Chemistry and Hematology Lab Results on record with [place] for the patient. Radiology Reports and Pathology Reports are provided separately, in subsequent sections. Lab Results This section contains the Chemistry/Hematology Results that were resulted 30 days before or 30 daysafter the date of the Encounter. Date/Time Source Result Type Result - Unit Interpretation Reference Range Specimen Type Comment Jun 30, 2024 03:27 PM PSYCHIATRIC BNP (STODDARD) PLASMA Specimen Type: PLASMA Comment: BNP results less than or equal to 100 pg/ml are healthcare sales representative of normal values in patients without CHF. BNP results greater than 100 pg/ml are considered abnormal and suggestive of CHF. Higher BNP concentrations in the first 72 hours after Acute Coronary Syndrome are associated with an increased risk of , myocardial infarction and CHF. Ordering Provider: SACHI SAINZ Report Released Date/Time: Jun 30, 2024 03:21 PM Reporting Lab: [address] [address] Performing Lab: [address] [address] BNP (STODDARD) 22 pg/mL 0-100 Jun 30, 2024 03:27 PM [facility] PANEL 1 PLASMA Specimen Type: [...] Jun 30, 2024 03:21 PM Reporting Lab: [address] [address] Performing Lab: [address] [address] CREATININE 1.43 mg/dL H 0.72-1.25 UREA NITROGEN 22 mg/dL 9-25 GLUCOSE 164 mg/dL H 74-100 SODIUM 139 mmol/L 136-145 POTASSIUM 3.7 mmol/L 3.5-5.1 CHLORIDE 102 mmol/L 98-107 CO2 27 mmol/L 22-29 CALCIUM 9.8 mg/dL 8.4-10.2 ANION GAP 10 meq/L 3-19 eGFR (CKD-EPI) 50 Jun 30, 2024 03:27 PM [facility] CBC/PLT BLOOD Specimen Type: BLOOD No comment entered. Ordering Provider: SACHI SAINZ Report Released Date/Time: Jun 30, 2024 03:21 PM Reporting Lab: [address] [address] Performing Lab: [address] [address] WBC 7.2 10*3/uL 5.0-10.0 RBC 4.85 10*6/uL [...] the Encounter. The data comes from all [place] treatment facilities. Date/Time Pathology Report Provider Source Jul 10, 2024 09:41 AM LR SURGICAL PATHOL OGY REPORT: LOCAL TITLE: LR SURGICAL PATHOLOGY REPORT DATE OF NOTE: JUL 10, 2024@09:41:15 ENTRY DATE: JUL 10, 2024@09:41:15 AUTHOR: JOE LEUNG COSIGNER: URGENCY: STATUS: COMPLETED $APHDR Reporting Lab: [facility] [CLIA# [id number]] [address] [address] [place] [address] - - - - - - - [...] - - POSTOPERATIVE DIAGNOSIS: NOT GIVEN. Surgeon/physician: PRITI ROGERS =-=-=-=-=-=-=-=-=-=-=-=-=-= -=-=-=-=-=-=-=-=-=-=-=-=-=- =-=-=-=-=-=-=-=-=-=-=-=-= - - - [...] left earlobe and consists of an unoriented, [id number], yellow/white shave of skin measuring 0.5 x 0.4 x 0.2 cm. A rough papule is identified over the skin surface measuring 0.4 x 0.3 cm. The cut surface is yellow/white and grossly unremarkable. The cut surface is inked blue. The specimen is bisected to reveal a white solid interior. The specimen is submitted entirely in a single cassette. 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 /peyton/ JOE LEUNG pathologist Signed Jul 10, 2024@09:41 Performing Laboratory: Surgical Pathology Report Performed By: [facility] [CLIA# [id number]] [address] [place] [id number] $FTR - - - - - - - - - - - - - - - - - - - - - - - - - - - - - - - - - - - - - - - - (End of report) JOE LEUNG MD [facility] Date Jul 10, 2024 - - - - - - - - - - - - - - - - - - - - - - - - - - - - - - - - - - - - - - - - ERIK GALLEGO STANDARD FORM 515 ID:[id number] SEX:M :1945 AGE: 78 LOC:PATH PCP: Laura Steinberg MD /peyton/ JOE LEUNG pathologist Signed: 07/10/2024 09:41 [facility]E LEUNG[facility] Encounter Notes: All associated encounter notes This section contains the clinical notes associated to the Encounter. Date/Time Encounter Note(s) Provider Source Jul 14, 2024 02:25 PM ADDENDUM: LOCAL TITLE: Addendum STANDARD TITLE: ADDENDUM DATE OF NOTE: JUL 14, 2024@14:25:29 ENTRY DATE: JUL 14, 2024@14:25:30 AUTHOR: HUONG SINHA EXP COSIGNER: URGENCY: STATUS: COMPLETED vet returning call back. [phone] /es/ HUONG SINHA [facility] Signed: 07/14/2024 14:27 Receipt Acknowledged By: 07/14/2024 14:33 /es/ RENEE MCKINLEY RN, BSN, [facility] Head Golf Professional [facility] --- Original Document --- 07/08/24 DERMATOLOGY CLINIC PHYSICIAN/PA/HOSPITAL SCIENTIST NOTE: Patient is a 78 yo WHITE MALE here for: rough growth under left earlobe, not tender or itchy but concerns him because 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 Also complains of rough irritated growth on left arm. He had stent placed recently. Have you used tobacco products (smoked or chewed) in the past 12 months? - No Are you having any pain or recurrent pain in the last several weeks/months? No Location: Duration: Characteristics: Active Outpatient Medications (including Supplies): Active Outpatient Medications Status 1) ACCU-CHEK GUIDE (GLUCOSE) TEST STRIP USE 1 STRIP TO TEST ACTIVE (S) BLOOD SUGAR 3-4 TIMES WEEKLY 2) ALOH 160/MG CARB 105MG CHEW TAB CHEW 1 TABLET BY MOUTH AFTER ACTIVE MEALS NEEDED FOR INDIGESTION/REFLUX Indication: FOR STOMACH 3) AMLODIPINE BESYLATE 2.5MG TAB TAKE ONE TABLET BY MOUTH DAILY ACTIVE -DO NOT DRINK GRAPEFRUIT JUICE WHILE ON THIS DRUG Indication: FOR HIGH BLOOD PRESSURE 4) ASPIRIN 81MG EC TAB TAKE ONE TABLET BY MOUTH DAILY ACTIVE (S) Indication: FOR HEART 5) ATORVASTATIN CALCIUM 80MG TAB TAKE ONE TABLET BY MOUTH DAILY ACTIVE (S) -DO NOT DRINK GRAPEFRUIT JUICE WHILE ON THIS DRUG Indication: FOR CHOLESTEROL 6) CHOLECALCIF 25MCG (D3-1,000UNIT) TAB TAKE FOUR TABLETS BY ACTIVE (S) MOUTH DAILY FOR VITAMIN D SUPPLEMENT 7) CLOPIDOGREL BISULFATE 75MG TAB TAKE ONE TABLET BY MOUTH ACTIVE (S) DAILY Indication: TO THIN BLOOD 8) CLOTRIMAZOLE 1% TOP SOLN APPLY SMALL AMOUNT TO AFFECTED AREA ACTIVE TWICE A DAY Indication: FOR FUNGAL INFECTION 9) CYANOCOBALAMIN 1000MCG TAB TAKE ONE TABLET BY MOUTH DAILY ACTIVE (S) Indication: FOR VITAMIN B12 SUPPLEMENT 10) DICLOFENAC NA 1% TOP GEL APPLY SMALL AMOUNT TO AFFECTED AREA ACTIVE (S) EVERY 6 HOURS NEEDED FOR SHOULDER PAIN 11) FLUTICASONE PROP 50MCG 120D NASAL INHL USE 2 SPRAYS IN EACH ACTIVE (S) NOSTRIL DAILY FOR NASAL ALLERGY 12) FUROSEMIDE 40MG TAB TAKE ONE TABLET BY MOUTH EVERY MORNING ACTIVE Indication: FOR FLUID 13) GABAPENTIN 300MG CAP TAKE ONE CAPSULE BY MOUTH EVERY MORNING ACTIVE AND TAKE ONE CAPSULE AT NOON AND TAKE TWO CAPSULES EVERY EVENING FOR PAIN Indication: FOR NERVE PAIN 14) LIDOCAINE 5% 5IN X 6IN PATCH APPLY 2 PATCHES TO SKIN DAILY ACTIVE -LEAVE ON 12 HOURS, THEN REMOVE FOR 12 HOURS Indication: FOR PAIN 15) LORATADINE 10MG TAB TAKE ONE TABLET BY MOUTH DAILY FOR ACTIVE (S) ALLERGIES 16) LOSARTAN 100MG TAB TAKE ONE TABLET BY MOUTH DAILY STOPPING ACTIVE THE HCTZ Indication: FOR BLOOD PRESSURE 17) MAGNESIUM OXIDE 420MG TAB TAKE ONE TABLET BY MOUTH TWICE A ACTIVE DAY Indication: FOR SUPPLEMENT 18) METFORMIN HCL 1000MG TAB TAKE ONE TABLET BY MOUTH TWICE A ACTIVE (S) DAY FOR DIABETES 19) METOPROLOL SUCCINATE 50MG SA TAB TAKE ONE-HALF TABLET BY ACTIVE (S) MOUTH DAILY Indication: FOR BLOOD PRESSURE/HEART 20) MIRTAZAPINE 15MG TAB TAKE ONE-HALF TABLET BY MOUTH AT ACTIVE (S) BEDTIME Indication: FOR SLEEP 21) MULTIVIT/OPHTH AREDS2/LUTE/ZEAX CAP/TAB TAKE 1 SOFTGEL BY ACTIVE (S) MOUTH TWICE A DAY AFTER MEALS Indication: FOR EYE HEALTH 22) MUPIROCIN 2% OINT APPLY SMALL AMOUNT TO AFFECTED AREA DAILY ACTIVE -APPLY DAILY TO TREATMENT SITES AFTER CLEANING. THIS IS A TOPICAL ANTIBIOTIC. Indication: TO PREVENT INFECTION 23) PIOGLITAZONE HCL 30MG TAB TAKE ONE TABLET BY MOUTH DAILY FOR ACTIVE (S) DIABETES Indication: FOR BLOOD SUGAR 24) PRAZOSIN HCL 1MG CAP TAKE ONE CAPSULE BY MOUTH AT BEDTIME ACTIVE TAKE IN ADDITION TO 5 MG CAPSULE FOR TOTAL OF 6 MG AT BEDTIME Indication: FOR NIGHTMARES. 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 S/P Efudex Constitutional: Appears well-developed, well-nourished, in no acute distress. PHYSICAL EXAM - Focal Exam: head, neck, left arm Common Physical Exam Findings: Biopsy(ies): A. 5mm rough waxy appearing papule Erythematous scaly macules on - temples-outer cheeks - Stuck-on, greasy flesh colored or brown keratotic papules/macules with or without pseudo-horn cysts on - Head, Arms - crusted inflamed waxy papule left forearm ASSESSMENT & PLAN: Biopsy: A. Shave Bx R/O SCC vs ISK below left earlobe Shave: - Consent obtained. Discussed risks of bleeding, infection, pain, scar, nerve damage, and potential allergy to anesthesia. A time out procedure was performed prior to the procedure to identify the patient, site, and type of procedure. Area cleaned and prepped with alcohol swab. Confirmed no known allergies to lidocaine or epinephrine. - Used 1% Lidocaine with epinephrine for anesthesia. Shave biopsy taken with no immediate complications. Aluminum chloride applied for hemostasis. - Vaseline and bandage applied. Wound care instructions given. Patient will be notified of biopsy results by phone or mail within 14 days. AK's: Explained to the patient that these are precancerous lesions and should be treated. Patient consented to treatment and had no further questions or concerns. - Efudex 5% + Dovonex 0.005% cream to - temples-outer cheeks, 2x daily for 7 days - Information sheet was given. Discussed the need to avoid eye contact while using Efudex. Side effects of redness, crusting, and sores were discussed. Seborrheic keratoses: -Due to the discomfort and irritation cause by the SK(s), it was determined to remove the SK(s). -Discussed the discomfort caused by LN2/Gradle. Discussed risks of Cryotherapy/Curettage such as scabbing, crusting, pain, blistering, pigmentary change, and possibility of scarring. Wound care was discussed and wound care sheet given. Patient consented to treatment and had no further questions or concerns. Liquid nitrogen to x 1 - Left Arm History of skin cancer - Will observe: - h/o BCC/SCC: no evidence of recurrence I spent 25 minutes, reviewing history, performing an exam and evaluation, entering clinical information EHR, interpreting result, counseling patient/family/caregiver, reviewing x-rays/mri/labs, ordering meds/test/procedures, referring and communicating with consulting health direct care professional, and care coordination. Return to clinic order placed. 6 mo /peyton/ PRITI ROGERS PHYSICIAN EDITOR PUBLICATIONS Signed: 07/08/2024 10:20 07/09/2024 ADDENDUM STATUS: COMPLETED Chart check review completed. [facility] dermatology/tissue exam request information was compared to hard copy duplicate labels to assure they matched. 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 Rec Efudex cream BID x 6 weeks (he already has cream) or can do ED&C in clinic. /jocy ROGERS PHYSICIAN EDITOR PUBLICATIONS Signed: 07/14/2024 11:11 Receipt Acknowledged By: 07/14/2024 14:17 /jocy MCKINLEY RN, BSN, [facility] Head Golf Professional [facility] 07/14/2024 ADDENDUM STATUS: COMPLETED Unable to reach patient by phone. Unable to leave HIPPA friendly voice mail. /jocy MCKINLEY RN, OMID, [facility] Head Golf Professional [facility] Signed: 07/14/2024 14:17 HUONG SINHA-CDD [facility] Jul 14, 2024 02:18 PM PHYSICIAN LETTERS: LOCAL TITLE: DERMATOLOGY LETTER STANDARD TITLE: PHYSICIAN LETTERS DATE OF NOTE: JUL 14, 2024@14:18 ENTRY DATE: JUL 14, 2024@14:18:22 AUTHOR: RENEE MCKINLEY EXP COSIGNER: URGENCY: STATUS: COMPLETED [facility] [address] [place] [address] Mr. ERIK GALLEGO [place], [place] [address] Dear Mr. ERIK GALLEGO: We have been unable to reach you by phone. Your biopsy results are back and they require further treatment. Please contact the Dermatology Clinic at ext [phone] to discuss your plan of care. 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 Rec Efudex cream BID x 6 weeks (he already has cream) or can do ED&C in clinic. /peyton/ PRITI ROGERS PHYSICIAN EDITOR PUBLICATIONS Signed: 07/14/2024 11:11 Receipt Acknowledged By: 07/14/2024 14:17 /jocy MCKINLEY RN, BSN, [facility] Head Golf Professional [facility] --- Original Document --- 07/08/24 DERMATOLOGY CLINIC PHYSICIAN/PA/HOSPITAL SCIENTIST NOTE: Patient is a 78 yo WHITE MALE here for: rough growth under left earlobe, not tender or itchy but concerns him because 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 Also complains of rough irritated growth on left arm. He had stent placed recently. Have you used tobacco products (smoked or chewed) in the past 12 months? - No Are you having any pain or recurrent pain in the last several weeks/months? No Location: Duration: Characteristics: Active Outpatient Medications (including Supplies): Active Outpatient Medications Status 1) ACCU-CHEK GUIDE (GLUCOSE) TEST STRIP USE 1 STRIP TO TEST ACTIVE (S) BLOOD SUGAR 3-4 TIMES WEEKLY 2) ALOH 160/MG CARB 105MG CHEW TAB CHEW 1 TABLET BY MOUTH AFTER ACTIVE MEALS NEEDED FOR INDIGESTION/REFLUX Indication: FOR STOMACH 3) AMLODIPINE BESYLATE 2.5MG TAB TAKE ONE TABLET BY MOUTH DAILY ACTIVE -DO NOT DRINK GRAPEFRUIT JUICE WHILE ON THIS DRUG Indication: FOR HIGH BLOOD PRESSURE 4) ASPIRIN 81MG EC TAB TAKE ONE TABLET BY MOUTH DAILY ACTIVE (S) Indication: FOR HEART 5) ATORVASTATIN CALCIUM 80MG TAB TAKE ONE TABLET BY MOUTH DAILY ACTIVE (S) -DO NOT DRINK GRAPEFRUIT JUICE WHILE ON THIS DRUG Indication: FOR CHOLESTEROL 6) CHOLECALCIF 25MCG (D3-1,000UNIT) TAB TAKE FOUR TABLETS BY ACTIVE (S) MOUTH DAILY FOR VITAMIN D SUPPLEMENT 7) CLOPIDOGREL BISULFATE 75MG TAB TAKE ONE TABLET BY MOUTH ACTIVE (S) DAILY Indication: TO THIN BLOOD 8) CLOTRIMAZOLE 1% TOP SOLN APPLY SMALL AMOUNT TO AFFECTED AREA ACTIVE TWICE A DAY Indication: FOR FUNGAL INFECTION 9) CYANOCOBALAMIN 1000MCG TAB TAKE ONE TABLET BY MOUTH DAILY ACTIVE (S) Indication: FOR VITAMIN B12 SUPPLEMENT 10) DICLOFENAC NA 1% TOP GEL APPLY SMALL AMOUNT TO AFFECTED AREA ACTIVE (S) EVERY 6 HOURS NEEDED FOR SHOULDER PAIN 11) FLUTICASONE PROP 50MCG 120D NASAL INHL USE 2 SPRAYS IN EACH ACTIVE (S) NOSTRIL DAILY FOR NASAL ALLERGY 12) FUROSEMIDE 40MG TAB TAKE ONE TABLET BY MOUTH EVERY MORNING ACTIVE Indication: FOR FLUID 13) GABAPENTIN 300MG CAP TAKE ONE CAPSULE BY MOUTH EVERY MORNING ACTIVE AND TAKE ONE CAPSULE AT NOON AND TAKE TWO CAPSULES EVERY EVENING FOR PAIN Indication: FOR NERVE PAIN 14) LIDOCAINE 5% 5IN X 6IN PATCH APPLY 2 PATCHES TO SKIN DAILY ACTIVE -LEAVE ON 12 HOURS, THEN REMOVE FOR 12 HOURS Indication: FOR PAIN 15) LORATADINE 10MG TAB TAKE ONE TABLET BY MOUTH DAILY FOR ACTIVE (S) ALLERGIES 16) LOSARTAN 100MG TAB TAKE ONE TABLET BY MOUTH DAILY STOPPING ACTIVE THE HCTZ Indication: FOR BLOOD PRESSURE 17) MAGNESIUM OXIDE 420MG TAB TAKE ONE TABLET BY MOUTH TWICE A ACTIVE DAY Indication: FOR SUPPLEMENT 18) METFORMIN HCL 1000MG TAB TAKE ONE TABLET BY MOUTH TWICE A ACTIVE (S) DAY FOR DIABETES 19) METOPROLOL SUCCINATE 50MG SA TAB TAKE ONE-HALF TABLET BY ACTIVE (S) MOUTH DAILY Indication: FOR BLOOD PRESSURE/HEART 20) MIRTAZAPINE 15MG TAB TAKE ONE-HALF TABLET BY MOUTH AT ACTIVE (S) BEDTIME Indication: FOR SLEEP 21) MULTIVIT/OPHTH AREDS2/LUTE/ZEAX CAP/TAB TAKE 1 SOFTGEL BY ACTIVE (S) MOUTH TWICE A DAY AFTER MEALS Indication: FOR EYE HEALTH 22) MUPIROCIN 2% OINT APPLY SMALL AMOUNT TO AFFECTED AREA DAILY ACTIVE -APPLY DAILY TO TREATMENT SITES AFTER CLEANING. THIS IS A TOPICAL ANTIBIOTIC. Indication: TO PREVENT INFECTION 23) PIOGLITAZONE HCL 30MG TAB TAKE ONE TABLET BY MOUTH DAILY FOR ACTIVE (S) DIABETES Indication: FOR BLOOD SUGAR 24) PRAZOSIN HCL 1MG CAP TAKE ONE CAPSULE BY MOUTH AT BEDTIME ACTIVE TAKE IN ADDITION TO 5 MG CAPSULE FOR TOTAL OF 6 MG AT BEDTIME Indication: FOR NIGHTMARES. 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 S/P Efudex Constitutional: Appears well-developed, well-nourished, in no acute distress. PHYSICAL EXAM - Focal Exam: head, neck, left arm Common Physical Exam Findings: Biopsy(ies): A. 5mm rough waxy appearing papule Erythematous scaly macules on - temples-outer cheeks - Stuck-on, greasy flesh colored or brown keratotic papules/macules with or without pseudo-horn cysts on - Head, Arms - crusted inflamed waxy papule left forearm ASSESSMENT & PLAN: Biopsy: A. Shave Bx R/O SCC vs ISK below left earlobe Shave: - Consent obtained. Discussed risks of bleeding, infection, pain, scar, nerve damage, and potential allergy to anesthesia. A time out procedure was performed prior to the procedure to identify the patient, site, and type of procedure. Area cleaned and prepped with alcohol swab. Confirmed no known allergies to lidocaine or epinephrine. - Used 1% Lidocaine with epinephrine for anesthesia. Shave biopsy taken with no immediate complications. Aluminum chloride applied for hemostasis. - Vaseline and bandage applied. Wound care instructions given. Patient will be notified of biopsy results by phone or mail within 14 days. AK's: Explained to the patient that these are precancerous lesions and should be treated. Patient consented to treatment and had no further questions or concerns. - Efudex 5% + Dovonex 0.005% cream to - temples-outer cheeks, 2x daily for 7 days - Information sheet was given. Discussed the need to avoid eye contact while using Efudex. Side effects of redness, crusting, and sores were discussed. Seborrheic keratoses: -Due to the discomfort and irritation cause by the SK(s), it was determined to remove the SK(s). -Discussed the discomfort caused by LN2/Gradle. Discussed risks of Cryotherapy/Curettage such as scabbing, crusting, pain, blistering, pigmentary change, and possibility of scarring. Wound care was discussed and wound care sheet given. Patient consented to treatment and had no further questions or concerns. Liquid nitrogen to x 1 - Left Arm History of skin cancer - Will observe: - h/o BCC/SCC: no evidence of recurrence I spent 25 minutes, reviewing history, performing an exam and evaluation, entering clinical information EHR, interpreting result, counseling patient/family/caregiver, reviewing x-rays/mri/labs, ordering meds/test/procedures, referring and communicating with consulting health direct care professional, and care coordination. Return to clinic order placed. 6 mo /peyton/ PRITI ROGERS PHYSICIAN EDITOR PUBLICATIONS Signed: 07/08/2024 10:20 07/09/2024 ADDENDUM STATUS: COMPLETED Chart check review completed. [facility] dermatology/tissue exam request information was compared to hard copy duplicate labels to assure they matched. Verbal consent obtained by provider Procedure note by nurse RTC per order /es/ RENEE MCKINLEY RN, BSN, [facility] Head Golf Professional [facility] Signed: 07/09/2024 08:56 07/14/2024 ADDENDUM STATUS: COMPLETED Unable to reach patient by phone. Unable to leave HIPPA friendly voice mail. /peyton/ RENEE MCKINLEY RN, BSN, [facility] [facility] Head [employer] [facility]CDD Signed: 07/14/2024 14:17 PRITI ROGERSJoseph [facility] Jul 08, 2024 10:18 AM DERMATOLOGY POSTPR OCEDURE NOTE: LOCAL TITLE: DERMATOLOGY POST PROCEDURE NOTE STANDARD TITLE: DERMATOLOGY POSTPROCEDURE NOTE DATE OF NOTE: JUL 08, 2024@10:18 ENTRY DATE: JUL 08, 2024@10:19:02 AUTHOR: CATRINA MADERA EXP COSIGNER: URGENCY: STATUS: COMPLETED Procedure Start Time: 1005 Procedure Stop Time: 1015 Patient tolerated procedure well with no complaints: Yes Biopsies obtained and labeled at bedside with present: Yes [place]/Caregiver verbalized understanding of topics and education provided discussed including procedure, after care wound instructions, and follow up needs: Yes Patient ID Armband removed and discarded in appropriate PHI bin: No /[place]/ CATRINA MADERA License Practial Nurse Signed: 07/08/2024 10:19 CATRINA MADERA [facility] Jul 08, 2024 10:17 AM DERMATOLOGY PREPRO CEDURE NOTE: LOCAL TITLE: DERMATOLOGY PRE PROCEDURE NOTE STANDARD TITLE: DERMATOLOGY PREPROCEDURE NOTE DATE OF NOTE: JUL 08, 2024@10:17 ENTRY DATE: JUL 08, 2024@10:17:25 AUTHOR: CATRINA MADERA EXP COSIGNER: URGENCY: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
--- OUTSIDE RECORDS SUMMARY | 2024-07-24 21:23 | XMS_ITS | Encounter Summary ---
Author Name [facility] [facility] [place] [facility] [place] [facility] [place] Address [address] [place] [address] Care Team Providers Care Surgical Product Sales Consultant Name Role Phone LAURA STEINBERG Primary Care [...] PART A Oct 14, 2009 PART A [id number] Alex GALLEGO PATIENT MEDICARE (WNR) MEDICARE (M) PART B Oct 14, 2009 PART B [id number] Alex GALLEGO PATIENT MEDICARE (WNR) MEDICARE (M) PART A Oct 14, 2009 PART A [id number] Alex GALLEGO PATIENT MEDICARE (WNR) MEDICARE (M) PART B Oct 14, 2009 PART B [id number] Alex GALLEGO PATIENT MEDICARE (WNR) MEDICARE (M) PART A Oct 14, 2009 PART A [id number] [phone] [id number] Alex GALLEGO PATIENT MEDICARE (WNR) MEDICARE (M) PART B Oct 14, 2009 PART B [id number] Alex GALLEGO PATIENT Selected Encounter This section includes the information on record at [place] for the Encounter. Date/Time Encounter Type Encounter Description Reason Provider Source Feb 14, 2024 10:00 AM OFFICE O/P EST LOW 20 MIN PLASTIC SURGERY ICD-10-CM M67.441 Ganglion, right hand PELON CHEUNG Encounter Template Text not used by [place] Assessments - Encounter Diagnoses This section includes the primary and secondary diagnoses documented for the Encounter. Date/Time Primary/Secondary Diagnosis Diagnosis Name Provider Source Mar 12, 2024 09:54 AM PRIMARY Ganglion, right hand [facility] Plan of Treatment: Future Appointments (+ 6 months) and Future Tests (+/- 45 days) The Plan of Treatment section includes future care activities for the patient from all [place] treatmentfacilities. This section includes future appointments and future orders which are active, pending or scheduled. Future Appointments This section includes appointments that were scheduled to occur 6 months from the date of the Encounter, up to a maximum of 20 appointments. The data comes from all [place] treatment facilities. Appointment Date/Time Appointment Type Appointme nt Facility Name Feb 27, 2024 02:00 PM [facility] Feb 28, 2024 01:30 PM [facility] [place] [facility] Feb 28, 2024 02:30 PM AMBULATORY - REHAB MEDICIN [facility] Feb 29, 2024 09:20 AM [facility] [place] [facility] Mar 04, 2024 09:00 AM AMBULATORY - PS[facility]CHIATRY [facility] Mar 17, 2024 01:00 PM AM[facility]ORY [facility] [place] [facility] Mar 18, 2024 08:30 AM AMBULATORY - REHAB MEDICIN E [facility] Mar 18, 2024 10:00 AM AM[facility]ORY [facility]ERY [place] [facility] Mar 28, 2024 08:00 AM [facility] [place] [facility] Apr 01, 2024 10:00 AM [facility] PS[facility]RY [facility] Apr 15, 2024 09:00 AM AMBULATORY - PSYCHIATRY [facility] Apr 16, 2024 11:35 AM AMBULATORY - MEDICINE [facility] Apr 25, 2024 08:30 AM AMBULATORY - SURGERY [facility] Apr 29, 2024 10:00 AM AMBULATORY - MEDICINE [facility] May 06, 2024 10:00 AM [facility] May 07, 2024 10:00 AM [facility] - MEDICINE [facility] May 15, 2024 10:30 AM AMBULATORY - REHAB MEDICIN E [facility] May 20, 2024 08:00 AM [facility] NONE [facility] May 20, 2024 10:00 AM AMBULATORY - MEDICINE [facility] May 27, 2024 08:00 AM AMBULATORY - NONE [facility] Lab Results: +/- 30 days of the encounter This section includes the Chemistry and Hematology Lab Results on record with [place] for the patient. Radiology Reports and Pathology Reports are provided separately, in subsequent sections. Lab Results This section contains the Chemistry/Hematology Results that were resulted 30 days before or 30 daysafter the date of the Encounter. Date/Time Source Result Type Result - Unit Interpretation Reference Range Specimen Type Comment Feb 14, 2024 10:41 AM [facility] MICROALBUMIN/CREAT RATIO URINE Specimen Type: URINE No comment entered. Ordering Provider: LAURA STEINBERG Report Released Date/Time: Feb 14, 2024 09:03 AM Reporting Lab: [address] [address] Performing Lab: [address] [address] CREATININE 133.0 mg/dL MICROALBUMIN QUANT 5.8 mg/L 0.0-30.0 .MICROALBUMIN/CREA RATIO 4.4 ug/mg{creat} Feb 14, 2024 10:41 AM [facility] DRUG SCREEN EXPANDED IN-HOUSE URINE Specimen [...] can affect test outcome. Ordering Provider: LAURA STEINBERG Report Released Date/Time: Feb 14, 2024 09:03 AM Reporting Lab: [address] [address] Performing Lab: [address] [address] TETRAHYDROCANNABINOL SCREEN NEG Cuto ff < 50 [...] < 1 Feb 14, 2024 10:19 AM [facility] LIPID PROFILE PLASMA Specimen Type: PLASM [...] sample is too elevated. Ordering Provider: LAURA STEINBERG Report Released Date/Time: Feb 14, 2024 09:03 AM Reporting Lab: [address] [address] Performing Lab: [address] [address] CHOLESTEROL 161 mg/dL 0-199 TRIGLYCERIDE 84 mg/dL 0-149 HDL CHOLESTEROL 54 mg/dL 40-69 DIRECT LDL CHOL. 95 mg/dL 0-100 Feb 14, 2024 10:19 AM [facility] GLYCOHEMOGLOBIN BLOOD Specimen Type: BLOOD Comment: [facility] guidelines for A1c interpretation: Glycemic control targets are based on Shared Decision Making between clinicians and patients. Criteria used to establish an A1c target recommendation can be found at https://www.nh.gov/qualityandpatientsafety/ and include the use of result accuracy [...] 8.73 and 9.27. Ref: https://ngsp.org/CAPdata.asp. The in-house [facility] D-100 analyzer has a historical CV <= 2%. Contact the laboratory for further performance characteristics of this assay. Ordering Provider: LAURA STEINBERG Report Released Date/Time: Feb 14, 2024 09:03 AM Reporting Lab: [address] [address] Performing Lab: [address] [address] GLYCOHEMOGLOBIN 6.0 4.4-6.4 Feb 14, 2024 10:19 AM [facility] PANEL 5 PLASMA Specimen Type: PLASM A [...] sample is too elevated. Ordering Provider: LAURA STEIBNERG Report Released Date/Time: Feb 14, 2024 09:03 AM Reporting Lab: [address] [address] Performing Lab: [address] [address] CREATININE 1.38 mg/dL H 0.72-1.25 UREA NITROGEN [...] (CKD-EPI) 52 Feb 14, 2024 10:19 AM [facility] PLASMA Specimen Type: PLASM A Comment: Estimated [...] Ordering Provider: LAURA STEINBERG Report Released Date/Time: Feb 14, 2024 09:03 AM Reporting Lab: [address] [address] Performing Lab: [address] [address] TSH 1.1076 m[IU]/mL 0.3500-4.9400 Feb 14, 2024 10:19 AM [facility] CBC/PLT BLOOD Specimen Type: BLOOD No comment entered. Ordering Provider: LAURA STEINBERG Report Released Date/Time: Feb 14, 2024 09:03 AM Reporting Lab: [address] [address] Performing Lab: [address] [address] WBC 6.7 10*3/uL 5.0-10.0 RBC 5.17 10*6/uL 4.6-6.2 HGB 15.8 g/dL 14.0-18.0 HCT 47.1 42.0-52.0 MCV 91.1 fL 80.0-94.0 MCH 30.6 pg 27.0-31.0 MCHC 33.5 g/dL 32.0-36.0 PLT 257 10*3/uL 150-450 MPV 10.5 fL 9.0-13.1 RDW 14.4 11.0-16.0 NRBC 0.0 0.0-0.0 Feb 14, 2024 10:19 AM [facility] B12 VITAMIN PLASMA Specimen Type: PLASM [...] sample is too elevated. Ordering Provider: LAURA STEINBERG Report Released Date/Time: Feb 14, 2024 09:03 AM Reporting Lab: [address] [address] Performing Lab: [address] [address] B12 VITAMIN 761 pg/mL 213-816 Feb 14, 2024 10:19 AM [facility] 25-OH VITAMIN D SERUM Specime n Type: SERUM Comment: The National Institutes of Health (NIH) recommendations state: <12 ng/mL - Deficient 20 - 50 ng/mL - Optimal Levels - adequate for most people. >50 ng/mL - Increased risk of hypercalciuria/other health problems - clinical correlation is required. These reference ranges represent clinical decision values rather than population-based reference values. Ordering Provider: LAURA STEINBERG Report Released Date/Time: Feb 14, 2024 09:03 AM Reporting Lab: [address] [address] Performing Lab: [address] [address] 25-OH VITAMIN D 42.5 ng/mL 20.0-50.0 Jan 31, 2024 11:09 AM [facility] GLUCOSE-HAND MONITOR CAPILLARY Specime n Type: CAPILLARY Comment: $ Test performed by: [id number] Meter #: [id number] Ordering Provider: PELON CHEUNG Report Released Date/Time: Feb 04, 2024 07:19 AM Reporting Lab: [address] [address] Performing Lab: [address] [address] GLUCOSE-HAND MONITOR 125 mg/dL H 71-99 Pathology [...] the Encounter. The data comes from all [place] treatment facilities. Date/Time Pathology Report Provider Source Feb 05, 2024 03:20 PM LR SURGICAL PATHOL OGY REPORT: LOCAL TITLE: LR SURGICAL PATHOLOGY REPORT DATE OF NOTE: FEB 05, 2024@15:20:14 ENTRY DATE: FEB 05, 2024@15:20:14 AUTHOR: ROSS DOBSON COSIGNER: URGENCY: STATUS: COMPLETED $APHDR Reporting Lab: [facility] [CLIA# [id number]] [address] [place] [address] - - - - - - - [...] submitted in one cassette. CPT CODE - 77941 MICROSCOPIC EXAM/DIAGNOSIS: Right long finger cyst, excision: -Findings consistent with digital mucous cyst. /es/ Ross Dobson MD Pathologist Signed Feb 05, 2024@15:20 Performing Laboratory: Surgical Pathology Report Performed By: [facility] [CLIA# [id number]] [address] [place] [address] $FTR - - - - - - - - - - - - - - - - - - - - - - - - - - - - - - - - - - - - - - - - (End of report) ROSS DOBSON MD [facility] Date Feb 05, 2024 - - - - - - - - - - - - - - - - - - - - - - - - - - - - - - - - - - - - - - - - ERIK GALLEGO STANDARD FORM 515 ID:[id number] SEX:M :1945 AGE: 78 LOC:PATH PCP: Laura Steinberg MD /peyton/ Ross Dobson MD Pathologist Signed: 02/05/2024 15:20 ROSS DOBSON-THIERRYD [facility] Jan 31, 2024 12:13 PM LR SURGICAL PATHOL OGY REPORT: LOCAL TITLE: LR SURGICAL PATHOLOGY REPORT DATE OF NOTE: JAN 31, 2024@12:13:13 ENTRY DATE: JAN 31, 2024@12:13:13 AUTHOR: JUDY SIGALA EXP COSIGNER: URGENCY: STATUS: COMPLETED $APHDR Reporting Lab: [facility] [CLIA# [id number]] [address] [place] [address] - - - - - - - [...] MOHS EXCISION BIOPSY ACCESSION NO. [id number] RULE OUT SQUAMOUS CELL CARCINOMA LEFT PREAURICULAR [...] CELL CARCINOMA LEFT PREAURICULAR CHEEK. CPT CODE: 29657 I ACTED BOTH THE SURGEON AND THE PATHOLOGIST FOR THIS CASE. PLEASE SEE CORRESPONDING MOHS NOTE IN CPRS AND MOHS MAP SCANNED TO [employer]. /es/ JUDY SIGALA Chief, Dermatology Signed Jan 31, 2024@12:13 Performing Laboratory: Surgical Pathology Report Performed By: [facility] [CLIA# [id number]] [address] [place] [address] $FTR - - - - - - - - - - - - - - - - - - - - - - - - - - - - - - - - - - - - - - - - (End of report) JUDY SIGALA MD [facility] Date Jan 22, 2024 - - - - - - - - - - - - - - - - - - - - - - - - - - - - - - - - - - - - - - - - SANAMONIQUEERIK MCKINLEY STANDARD FORM 515 ID:[id number] SEX:M :1945 AGE: 78 LOC:DERM PCP: Laura Steinberg MD /peyton/ JUDY SIGALA Chief, Dermatology Signed: 01/31/2024 12:13 JUDY SIAGLA-D [facility] Encounter Notes: All associated encounter notes This section contains the clinical notes associated to the Encounter. Date/Time Encounter Note(s) Provider Source Feb 22, 2024 08:35 AM ADDENDUM: LOCAL TITLE: Addendum STANDARD TITLE: ADDENDUM DATE OF NOTE: FEB 22, 2024@08:35:47 ENTRY DATE: FEB 22, 2024@08:35:48 AUTHOR: LEONILA VENTURA COSIGNER: URGENCY: STATUS: COMPLETED Please see RTC order, ok to ob. Thank you. /OMID Hodge, RN composition siding worker Signed: 02/22/2024 08:36 Receipt Acknowledged By: 02/27/2024 09:22 /peyton/ MAXINE PAULA --- Original Document --- 02/14/24 PLASTIC SURGERY CLINIC NURSING EXIT NOTE: Chart reviewed. Pt seen by MD who provided care to the patient. Pt exited clinic per MD. Post op follow up s/p right long finger mucous cyst excision on 01/31/2024 - Healing appropriatey, no concern for infection - Sutures removed today - Continue Aquaphor/Vaseline to incision daily - Keep covered with bandage until skin heals - Okay to shower/wash hand, but do not scrub at incision. - Do not soak in baths, water, ponds, lakes, etc. - Patient to follow up in 2 weeks for repeat evaluation Plan: RTC in 2 weeks RTC order placed /peyton/ COLLINS PETER Surgery Guest Service Representative Signed: 02/14/2024 13:27 02/27/2024 ADDENDUM STATUS: UNSIGNED You may not VIEW this UNSIGNED Addendum. LEONILA VENTURA-CDD [facility] Feb 21, 2024 10:52 AM ADDENDUM: LOCAL TITLE: Addendum STANDARD TITLE: ADDENDUM DATE OF NOTE: FEB 21, 2024@10:52:51 ENTRY DATE: FEB 21, 2024@10:52:53 AUTHOR: MICHELLE FORBES COSIGNER: URGENCY: STATUS: COMPLETED Patient is calling to schedule his appointment but no rtc order was entered for his 2 week follow-up from 02/13. /peyton/ MICHELLE FORBES Priming Mixture Carrier Signed: 02/21/2024 10:53 Receipt Acknowledged By: 02/22/2024 08:37 /OMID Hodge, RN composition siding worker for COLLINS PETER --- Original Document --- 02/14/24 PLASTIC SURGERY CLINIC PHYSICIAN NOTE : (X)Nursing Intake Note Reviewed Recent VITALS: WEIGHT: Measurement DT WEIGHT LB(KG)[BMI] 02/14/2024 08:25 202(91.63)[29*] TEMP: Measurement DT TEMP F(C) 02/14/2024 08:25 97.4(36.3) PULSE: Measurement DT PULSE 02/14/2024 09:51 75 PULSE OX: Measurement DT POx (L/MIN)(%) 02/14/2024 09:51 98 RESPIRATIONS: Measurement DT RESP 02/14/2024 08:25 16 PAIN SCORE: Measurement DT PAIN 02/14/2024 09:51 2 BLOOD PRESSURE: Measurement DT BP 02/14/2024 09:51 138/73 Ht: 70 in [177.8 cm] (01/22/2024 11:17) Active problems - Computerized Problem List is the source for the followin. Exposure to potentially hazardous substance 2. Obstructive sleep apnea 3. Pseudophakia 4. Chronic post-traumatic stress disorder 5. Polyp of colon repeat colonoscopy due 12/2018 6. Vitamin B12 deficiency (non anemic) 7. Lumbar Radiculopathy 8. 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 Osteoarthritis (SNOMED CT 736103902) 11. Gastro-esophageal reflux disease with esophagitis (SNOMED CT 207221230) 12. Allergic rhinitis * 13. Hypertension (SNOMED CT 77726734) 14. Diabetes mellitus (SNOMED CT 78713994) 15. NEPHROLITHIASIS 16. Gout * Active Outpatient Medications (including Supplies): Active Outpatient Medications Status 1) ALOH 160/MG CARB 105MG CHEW TAB CHEW 1 TABLET BY ACTIVE MOUTH AFTER MEALS NEEDED FOR INDIGESTION/REFLUX 2) CLOTRIMAZOLE 1% TOP SOLN APPLY SMALL AMOUNT TO ACTIVE AFFECTED AREA TWICE A DAY FOR FUNGAL INFECTION 3) CYANOCOBALAMIN 1000MCG TAB TAKE ONE TABLET BY MOUTH ACTIVE (S) DAILY FOR VITAMIN B12 SUPPLEMENT 4) GABAPENTIN 300MG CAP TAKE ONE CAPSULE BY MOUTH EVERY ACTIVE MORNING AND TAKE ONE CAPSULE AT NOON AND TAKE TWO CAPSULES EVERY EVENING FOR PAIN 5) HCTZ 12.5MG/LOSARTAN 100MG TAB TAKE 1 TABLET BY MOUTH ACTIVE (S) DAILY FOR BLOOD PRESSURE/HEART 6) LORATADINE 10MG TAB TAKE ONE TABLET BY MOUTH DAILY ACTIVE (S) FOR ALLERGIES 7) MIRTAZAPINE 15MG TAB TAKE ONE-HALF TABLET BY MOUTH AT ACTIVE BEDTIME FOR SLEEP 8) MUPIROCIN 2% OINT APPLY SMALL AMOUNT TO AFFECTED AREA ACTIVE DAILY TO PREVENT INFECTION -APPLY DAILY TO TREATMENT SITES AFTER CLEANING. THIS IS A TOPICAL ANTIBIOTIC. 9) PANTOPRAZOLE NA 40MG EC TAB TAKE ONE TABLET BY MOUTH ACTIVE TWICE A DAY 30 MINUTES BEFORE A MEAL FOR STOMACH -TAKE ON AN EMPTY STOMACH. 10) PRAZOSIN HCL 5MG CAP TAKE ONE CAPSULE BY MOUTH AT ACTIVE BEDTIME FOR NIGHTMARES 11) SERTRALINE HCL 100MG TAB TAKE ONE AND ONE-HALF ACTIVE (S) TABLETS BY MOUTH EVERY MORNING FOR MOOD 12) TRAMADOL HCL 50MG TAB TAKE ONE TABLET BY MOUTH EVERY ACTIVE 6 HOURS NEEDED FOR PAIN 13) TRIAMCINOLONE ACETONIDE 0.1% OINT APPLY SMALL AMOUNT ACTIVE TO AFFECTED AREA TWICE A DAY FOR SKIN RASH Pending Outpatient Medications Status 1) ACCU-CHEK GUIDE (GLUCOSE) TEST STRIP USE 1 STRIP TO PENDING TEST BLOOD SUGAR 3-4 TIMES EVERY WEEK 2) CHOLECALCIF 25MCG (D3-1,000UNIT) TAB TAKE FOUR PENDING TABLETS BY MOUTH DAILY FOR VITAMIN D SUPPLEMENT 3) CYANOCOBALAMIN 1000MCG TAB TAKE ONE TABLET BY MOUTH PENDING DAILY 4) DICLOFENAC NA 1% TOP GEL APPLY SMALL AMOUNT TO PENDING AFFECTED AREA EVERY 6 HOURS NEEDED FOR SHOULDER PAIN 5) FLUTICASONE PROP 50MCG 120D NASAL INHL USE 2 SPRAYS PENDING IN EACH NOSTRIL DAILY FOR NASAL ALLERGY 6) GABAPENTIN 300MG CAP TAKE ONE CAPSULE BY MOUTH EVERY PENDING MORNING AND TAKE ONE CAPSULE AT NOON AND TAKE TWO CAPSULES EVERY EVENING FOR PAIN 7) HCTZ 12.5MG/LOSARTAN 100MG TAB TAKE 1 TABLET BY MOUTH PENDING DAILY 8) LIDOCAINE 5% 5IN X 6IN PATCH APPLY 2 PATCHES TO SKIN PENDING DAILY -LEAVE ON 12 HOURS, THEN REMOVE FOR 12 HOURS 9) LORATADINE 10MG TAB TAKE ONE TABLET BY MOUTH DAILY PENDING FOR ALLERGIES 10) METFORMIN HCL 1000MG TAB TAKE ONE TABLET BY MOUTH PENDING TWICE A DAY FOR DIABETES 11) PIOGLITAZONE HCL 30MG TAB TAKE ONE TABLET BY MOUTH PENDING DAILY FOR DIABETES 24 Total Medications Patient educated on medication changes and an updated list of medications was provided. Presenting problems and reason for visit: Post Operative Follow Up Date of Operation:01/31/2024 Procedure: 1) Right long finger mucous cyst excision PMHx/HPI: Patient is a 78-year-old RHD who is presenting for post-operative follow up s/p right long finger mucous cyst excision on 01/31/2024. Patient reports ongoing pain, but is controlled on over the counter medications. No concerns for infection. Denies N/V, fevers, chills. Here for suture removal. ROS: 14-point review of systems negative except as noted in PMHx/HPI Physical Exam: Gen: NAD, normal appearance. HEENT: NC/AT. CV: Extremites well perfused. Resp: Nonlabored breathing Neuro: AAOx3. No focal deficits. Psych: Normal mood and affect. Ext: Focused exam of right upper extremity reveals long finger distal finger incision healing well. Some scabbing present. No erythema. No drainage. Flexion of LF limited due to pain. Assessment/Plan: 1. Post op follow up s/p right long finger mucous cyst excision on 01/31/2024 - Healing appropriatey, no concern for infection - Sutures removed today - Continue Aquaphor/Vaseline to incision daily - Keep covered with bandage until skin heals - Okay to shower/wash hand, but do not scrub at incision. - Do not soak in baths, water, ponds, lakes, etc. - Patient to follow up in 2 weeks for repeat evaluation /peyton/ RICHARD WALTER RESIDENT PHYSICIAN Signed: 02/14/2024 10:22 /peyton/ PELON CHEUNG staff physician Cosigned: 02/21/2024 10:27 02/21/2024 ADDENDUM STATUS: COMPLETED 78-year-old RHD who is presenting for post-operative follow up s/p right long finger mucous cyst excision on 01/31/2024. I have seen and examined the patient with Dr. Walter. I agree with his history and physical exam. I reviewed and discussed the resident's note and agree with the documented findings and plan of care. /peyton/ PELON CHEUNG staff physician Signed: 02/21/2024 10:27 LEIDYMICHELLE PLUMMER JESSE [facility] Feb 14, 2024 01:22 PM PLASTIC SURGERY NU RSING OUTPATIENT NOTE: LOCAL TITLE: PLASTIC SURGERY CLINIC NURSING EXIT NOTE STANDARD TITLE: PLASTIC SURGERY NURSING OUTPATIENT NOTE DATE OF NOTE: FEB 14, 2024@13:22 ENTRY DATE: FEB 14, 2024@13:22:54 AUTHOR: COLLINS PETER EXP COSIGNER: URGENCY: STATUS: COMPLETED PLASTIC SURGERY CLINIC NURSING EXIT NOTE Has ADDENDA Chart reviewed. Pt seen by MD who provided care to the patient. Pt exited clinic per MD. Post op follow up s/p right long finger mucous cyst excision on 01/31/2024 - Healing appropriatey, no concern for infection - Sutures removed today - Continue Aquaphor/Vaseline to incision daily - Keep covered with bandage until skin heals - Okay to shower/wash hand, but do not scrub at incision. - Do not soak in baths, water, ponds, lakes, etc. - Patient to follow up in 2 weeks for repeat evaluation Plan: RTC in 2 weeks RTC order placed /jocy PETER Surgery Guest Service Representative Signed: 02/14/2024 13:27 02/22/2024 ADDENDUM STATUS: COMPLETED Please see RTC order, ok to ob. Thank you. /peyton/ OMID NARAYANAN, RN composition siding worker Signed: 02/22/2024 08:36 Receipt Acknowledged By: 02/27/2024 09:22 /jocy PAULA 02/27/2024 ADDENDUM STATUS: COMPLETED FED 02/21 - swp on phone on 02/26 DEANNE PLAS PROC PA Feb 28, 2024@1:30 /jocy PAULA Signed: 02/27/2024 09:24 COLLINS PETERJoseph [facility] Feb 14, 2024 10:16 AM PLASTIC SURGERY RE SIDENT NOTE: LOCAL TITLE: PLASTIC SURGERY CLINIC PHYSICIAN NOTE STANDARD TITLE: PLASTIC SURGERY RESIDENT NOTE DATE OF NOTE: FEB 14, 2024@10:16 ENTRY DATE: FEB 14, 2024@10:16:16 AUTHOR: RICHARD WALTER EXP COSIGNER: PELON CHEUNG URGENCY: STATUS: COMPLETED PLASTIC SURGERY CLINIC PHYSICIAN NOTE Has ADDENDA (X)Nursing Intake Note Reviewed Recent VITALS: WEIGHT: Measurement DT WEIGHT LB(KG)[BMI] 02/14/2024 08:25 202(91.63)[29*] TEMP: Measurement DT TEMP F(C) 02/14/2024 08:25 97.4(36.3) PULSE: Measurement DT PULSE 02/14/2024 09:51 75 PULSE OX: Measurement DT POx (L/MIN)(%) 02/14/2024 09:51 98 RESPIRATIONS: Measurement DT RESP 02/14/2024 08:25 16 PAIN SCORE: Measurement DT PAIN 02/14/2024 09:51 2 BLOOD PRESSURE: Measurement DT BP 02/14/2024 09:51 138/73 Ht: 70 in [177.8 cm] (01/22/2024 11:17) Active problems - Computerized Problem List is the source for the followin. Exposure to potentially hazardous substance 2. Obstructive sleep apnea 3. Pseudophakia 4. Chronic post-traumatic stress disorder 5. Polyp of colon repeat colonoscopy due 12/2018 6. Vitamin B12 deficiency (non anemic) 7. Lumbar Radiculopathy 8. 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 Osteoarthritis (SNOMED CT 791645682) 11. Gastro-esophageal reflux disease with esophagitis (SNOMED CT 433948339) 12. Allergic rhinitis * 13. Hypertension (SNOMED CT 32183536) 14. Diabetes mellitus (SNOMED CT 17104349) 15. NEPHROLITHIASIS 16. Gout * Active Outpatient Medications (including Supplies): Active Outpatient Medications Status 1) ALOH 160/MG CARB 105MG CHEW TAB CHEW 1 TABLET BY ACTIVE MOUTH AFTER MEALS NEEDED FOR INDIGESTION/REFLUX 2) CLOTRIMAZOLE 1% TOP SOLN APPLY SMALL AMOUNT TO ACTIVE AFFECTED AREA TWICE A DAY FOR FUNGAL INFECTION 3) CYANOCOBALAMIN 1000MCG TAB TAKE ONE TABLET BY MOUTH ACTIVE (S) DAILY FOR VITAMIN B12 SUPPLEMENT 4) GABAPENTIN 300MG CAP TAKE ONE CAPSULE BY MOUTH EVERY ACTIVE MORNING AND TAKE ONE CAPSULE AT NOON AND TAKE TWO CAPSULES EVERY EVENING FOR PAIN 5) HCTZ 12.5MG/LOSARTAN 100MG TAB TAKE 1 TABLET BY MOUTH ACTIVE (S) DAILY FOR BLOOD PRESSURE/HEART 6) LORATADINE 10MG TAB TAKE ONE TABLET BY MOUTH DAILY ACTIVE (S) FOR ALLERGIES 7) MIRTAZAPINE 15MG TAB TAKE ONE-HALF TABLET BY MOUTH AT ACTIVE BEDTIME FOR SLEEP 8) MUPIROCIN 2% OINT APPLY SMALL AMOUNT TO AFFECTED AREA ACTIVE DAILY TO PREVENT INFECTION -APPLY DAILY TO TREATMENT SITES AFTER CLEANING. THIS IS A TOPICAL ANTIBIOTIC. 9) PANTOPRAZOLE NA 40MG EC TAB TAKE ONE TABLET BY MOUTH ACTIVE TWICE A DAY 30 MINUTES BEFORE A MEAL FOR STOMACH -TAKE ON AN EMPTY STOMACH. 10) PRAZOSIN HCL 5MG CAP TAKE ONE CAPSULE BY MOUTH AT ACTIVE BEDTIME FOR NIGHTMARES 11) SERTRALINE HCL 100MG TAB TAKE ONE AND ONE-HALF ACTIVE (S) TABLETS BY MOUTH EVERY MORNING FOR MOOD 12) TRAMADOL HCL 50MG TAB TAKE ONE TABLET BY MOUTH EVERY ACTIVE 6 HOURS NEEDED FOR PAIN 13) TRIAMCINOLONE ACETONIDE 0.1% OINT APPLY SMALL AMOUNT ACTIVE TO AFFECTED AREA TWICE A DAY FOR SKIN RASH Pending Outpatient Medications Status 1) ACCU-CHEK GUIDE (GLUCOSE) TEST STRIP USE 1 STRIP TO PENDING TEST BLOOD SUGAR 3-4 TIMES EVERY WEEK 2) CHOLECALCIF 25MCG (D3-1,000UNIT) TAB TAKE FOUR PENDING TABLETS BY MOUTH DAILY FOR VITAMIN D SUPPLEMENT 3) CYANOCOBALAMIN 1000MCG TAB TAKE ONE TABLET BY MOUTH PENDING DAILY 4) DICLOFENAC NA 1% TOP GEL APPLY SMALL AMOUNT TO PENDING AFFECTED AREA EVERY 6 HOURS NEEDED FOR SHOULDER PAIN 5) FLUTICASONE PROP 50MCG 120D NASAL [place]HL USE 2 SPRAYS PENDING IN EACH NOSTRIL DAILY FOR NASAL ALLERGY 6) GABAPENTIN 300MG CAP TAKE ONE CAPSULE BY MOUTH EVERY PENDING MORNING AND TAKE ONE CAPSULE AT NOON AND TAKE TWO CAPSULES EVERY EVENING FOR PAIN 7) HCTZ 12.5MG/LOSARTAN 100MG TAB TAKE 1 TABLET BY MOUTH PENDING DAILY 8) LIDOCAINE 5% 5IN X 6IN PATCH APPLY 2 PATCHES TO SKIN PENDING DAILY -LEAVE ON 12 HOURS, THEN REMOVE FOR 12 HOURS 9) LORATADINE 10MG TAB TAKE ONE TABLET BY MOUTH DAILY PENDING FOR ALLERGIES 10) METFORMIN HCL 1000MG TAB TAKE ONE TABLET BY MOUTH PENDING TWICE A DAY FOR DIABETES 11) PIOGLITAZONE HCL 30MG TAB TAKE ONE TABLET BY MOUTH PENDING DAILY FOR DIABETES 24 Total Medications Patient educated on medication changes and an updated list of medications was provided. Presenting problems and reason for visit: Post Operative Follow Up Date of Operation:01/31/2024 Procedure: 1) Right long finger mucous cyst excision PMHx/HPI: Patient is a 78-year-old RHD who is presenting for post-operative follow up s/p right long finger mucous cyst excision on 01/31/2024. Patient reports ongoing pain, but is controlled on over the counter medications. No concerns for infection. Denies N/V, fevers, chills. Here for suture removal. ROS: 14-point review of systems negative except as noted in PMHx/HPI Physical Exam: Gen: NAD, normal appearance. HEENT: NC/AT. CV: Extremites well perfused. Resp: Nonlabored breathing Neuro: AAOx3. No focal deficits. Psych: Normal mood and affect. Ext: Focused exam of right upper extremity reveals long finger distal finger incision healing well. Some scabbing present. No erythema. No drainage. Flexion of LF limited due to pain. Assessment/Plan: 1. Post op follow up s/p right long finger mucous cyst excision on 01/31/2024 - Healing appropriatey, no concern for infection - Sutures removed today - Continue Aquaphor/Vaseline to incision daily - Keep covered with bandage until skin heals - Okay to shower/wash hand, but do not scrub at incision. - Do not soak in baths, water, ponds, lakes, etc. - Patient to follow up in 2 weeks for repeat evaluation /peyton/ RICHARD WALTER RESIDENT PHYSICIAN Signed: 02/14/2024 10:22 /peyton/ PELON CHEUNG staff physician Cosigned: 02/21/2024 10:27 02/21/2024 ADDENDUM STATUS: COMPLETED 78-year-old RHD who is presenting for post-operative follow up s/p right long finger mucous cyst excision on 01/31/2024. I have seen and examined the patient with Dr. Walter. I agree with his history and physical exam. I reviewed and discussed the resident's note and agree with the documented findings and plan of care. /peyton/ PELON CHEUNG staff physician Signed: 02/21/2024 10:27 02/21/2024 ADDENDUM STATUS: COMPLETED Patient is calling to schedule his appointment but no rtc order was entered for his 2 week follow-up from 02/13. /peyton/ MICHELLE FORBES Priming Mixture Carrier Signed: 02/21/2024 10:53 Receipt Acknowledged By: * AWAITING SIGNATURE * COLLINS PETER,RICHARD DELGADO-CDD [facility]
--- OUTSIDE RECORDS SUMMARY | 2024-07-24 21:24 | XMS_ITS | Encounter Summary ---
Author Name [facility] [place] Organization [facility] [place] Address [address] [place] [id number] Care Team Providers Care Risk Consultant Name Role Phone LAURA STEINBERG Primary [...] PART A Oct 14, 2009 PART A [id number] Alex GALLEGO PATIENT MEDICARE (WNR) MEDICARE (M) PART B Oct 14, 2009 PART B [id number] Alex GALLEGO PATIENT MEDICARE (WNR) MEDICARE (M) PART A Oct 14, 2009 PART A [id number] Alex GALLEGO PATIENT MEDICARE (WNR) MEDICARE (M) PART B Oct 14, 2009 PART B [id number] Alex GALLEGO PATIENT MEDICARE (WNR) MEDICARE (M) PART B Oct 14, 2009 PART B [id number] Alex GALLEGO PATIENT MEDICARE (WNR) MEDICARE (M) PART A Oct 14, 2009 PART A [id number] Alex GALLEGO PATIENT Selected Encounter This section includes the information on record at [place] for the Encounter. Date/Time Encounter Type Encounter Description Reason Pro vider Source Jun 20, 2024 12:21 PM Outpatient Encounter CARDIOLOGY IHE Encounter Template Text not used by [place] Plan of Treatment: Future Appointments (+ 6 months) and Future Tests (+/- 45 days) The Plan of Treatment section includes future care activities for the patient from all [place] treatmentfacilities. This section includes future appointments and future orders which are active, pending or scheduled. Future Appointments This section includes appointments that were scheduled to occur 6 months from the date of the Encounter, up to a maximum of 20 appointments. The data comes from all [place] treatment facilities. Appointment Date/Time Appointment Type Appointme nt Facility Name Jun 24, 2024 08:00 AM AMBULATORY - NONE [facility] Jun 30, 2024 11:00 AM AMBULATORY - NONE [facility] Jun 30, 2024 03:00 PM [facility] Jul 01, 2024 09:00 AM AMBULATORY - MEDICINE [facility] Jul 07, 2024 10:00 AM AMBULATORY - PSYCHIATRY [facility] Jul 08, 2024 10:00 AM AMBULATORY - MEDICINE [facility] Jul 10, 2024 08:30 AM AMBULATORY - MEDICINE [facility] Jul 24, 2024 03:00 PM AMBULATORY - PSYCHIATRY [facility] Aug 05, 2024 09:00 AM AMBULATORY - MEDICINE [facility] Aug 11, 2024 10:00 AM AMBULATORY - PSYCHIATRY [facility] Aug 12, 2024 09:00 AM AMBULATORY - MEDICINE [facility] August 18, 2024 09:00 AM AMBULATORY - SURGERY [place] [facility] September 02, 2024 08:20 AM AMBULATORY - SURGERY [place] [facility] Oct 01, 2024 09:00 AM AMBULATORY - NONE [facility] Oct 30, 2024 09:00 AM AMBULATORY - PSYCHIATRY [place] [facility] Dec 09, 2024 08:00 AM AMBULATORY - NONE DALE Rios [facility] Lab Results: +/- 30 days of the encounter This section includes the Chemistry and Hematology Lab Results on record with [place] for the patient. Radiology Reports and Pathology Reports are provided separately, in subsequent sections. Lab Results This section contains the Chemistry/Hematology Results that were resulted 30 days before or 30 daysafter the date of the Encounter. Date/Time Source Result Type Result - Unit Interpretation Reference Range Specimen Type Comment Jun 30, 2024 03:27 PM [facility] BNP (STODDARD) PLASMA Specimen Type: PLASMA Comment: BNP results less than or equal to 100 pg/ml are marketing sales representative of normal values in patients without CHF. BNP results greater than 100 pg/ml are considered abnormal and suggestive of CHF. Higher BNP concentrations in the first 72 hours after Acute Coronary Syndrome are associated with an increased risk of , myocardial infarction and CHF. Ordering Provider: SACHI SAINZ Report Released Date/Time: Jun 30, 2024 03:21 PM Reporting Lab: [facility] [address] [facility] [address] Performing Lab: [address] [address] BNP (STODDARD) 22 pg/mL 0-100 Jun 30, 2024 03:27 PM [facility] PANEL 1 PLASMA Specimen Type: [...] Jun 30, 2024 03:21 PM Reporting Lab: [address] [address] Performing Lab: [address] [address] CREATININE 1.43 mg/dL H 0.72-1.25 UREA NITROGEN 22 mg/dL 9-25 GLUCOSE 164 mg/dL H 74-100 SODIUM 139 mmol/L 136-145 POTASSIUM 3.7 mmol/L 3.5-5.1 CHLORIDE 102 mmol/L 98-107 CO2 27 mmol/L 22-29 CALCIUM 9.8 mg/dL 8.4-10.2 ANION GAP 10 meq/L 3-19 eGFR (CKD-EPI) 50 Jun 30, 2024 03:27 PM [facility] CBC/PLT BLOOD Specimen Type: BLOOD No comment entered. Ordering Provider: SACHI SAINZ Report Released Date/Time: Jun 30, 2024 03:21 PM Reporting Lab: [address] [address] Performing Lab: [address] [address] WBC 7.2 10*3/uL 5.0-10.0 RBC 4.85 10*6/uL 4.6-6.2 HGB 14.7 g/dL 14.0-18.0 HCT 43.8 42.0-52.0 MCV 90.3 fL 80.0-94.0 MCH 30.3 pg 27.0-31.0 MCHC 33.6 g/dL 32.0-36.0 PLT 235 10*3/uL 150-450 MPV 10.6 fL 9.0-13.1 RDW 14.8 11.0-16.0 NRBC 0.0 0.0-0.0 Radiology Reports: +/- 30 days of the [...] the Encounter. The data comes from all [place] treatment facilities. Date/Time Radiology Report Provider Source May 29, 2024 05:[id number] PERFORMED BY OTHER FACILITY: ERIK GALLEGO [id number] -1945 M Ex Date: MAY 29, 2024@17:13 Req Phys: LAURA STEINBERG [facility] 1-2 (Req'g Lo Img Loc: OUTSIDE2 LD CT Service: Unknown (Case [id number] COMPLETE) [id number] CT PERFORMED BY OTHER FACIL(CT Detailed) CPT:46949 Reason for Study: Exam imported from outside Clinical History: Original Data for Imported Study Patient Name: ERIK GALLEGO Date: 1945 Sex: M Study Date: 05/29/24 Study Time: 05:13:55 Study Description: CT CHEST PE/ABD/PEL W Referring Physician: TAMMI GEE Series 1: 2 CT files, description: AUDIOLOGY DIRECTOR Series 2: 216 CT files, description: 5.0mm [...] Diagnostic Code: VERIFIED BY: / *ELECTRONICALLY FILED* [facility] May 27, 2024 08:07 AM MYOVIEW(1): ERIK GALLEGO [id number] -1945 M Exm Date: MAY 27, 2024@08:07 Req Phys: LAURA STEINBERG Pat Loc: [facility] [employer] (Req'g Loc) Img Loc: NUCLEAR MEDICINE Service: [place] [address] (Case [id number] COMPLETE) MYOVIEW(1) (NM Detailed) CPT:A9502 Reason for [...] 27, 2024 Date Verified: MAY 27, 2024 Trailer Truck Driver E-Sig: Report: STUDY: GXT REPORT: Patient exercised [...] Staff: ANIA ANDRADE APRN, Cardiology Verified by water treatment operator for ANIA ANDRADE /ANIA ESPINOZA-CDD [facility] May 27, 2024 08:07 AM 76202(D) MYOCARDIAL SPECT(MULTIPLE): ERIK GALLEGO [id number] -1945 M Ex Date: MAY 27, 2024@08:07 Req Phys: MARYANLAURA Jovanny Landry Loc: [facility] (Req'g Loc) Img Loc: NUCLEAR MEDICINE Service: [place] [address] THIS IS AN AMENDED REPORT (Case [id number] COMPLETE) 07106(D) MYOCARDIAL SPECT(MULTIPL(NM Detailed) CPT:09312 Proc Modifiers : GXT Reason for Study: [...] 05, 2024 Date Verified: JUN 05, 2024 Trailer Truck Driver E-Sig: Report: [place], [place] STUDY: Treadmill Exercise SPECT Tc-99m myoview [...] performed with tomographic and three-dimensional reconstructions with Microco.sm NM/CT 640 system. The patient performed treadmill [...] data sets in addition to the conventional whq-zdfvyzhpmit-dcpahrdnx images. Both filtered back projection and iterative [...] ventricular cavity. 4. SPECT images: Attenuation-corrected and cnn-qukdplzsnsn-yoazdehuk SPECT images were evaluated. SPECT images demonstrate normal myocardial perfusion. There is a medium size, mild intensity defect located in the dqavl-xq-hnzolp inferior myocardium . The defect is fixed [...] BY: Kerri Mena MD, Cardiology Attending /KERRI LONG-Joseph [facility] May 27, 2024 08:07 AM TC-99M FROM NON-HIGHLY ENRICHED URANIUM SOURCE: ERIK GALLEGO [id number] -1945 M Exm Date: MAY 27, 2024@08:07 Req Phys: LAURA STEINBERG Pat Loc: [facility] [employer] (Req'g Loc) Img Loc: NUCLEAR MEDICINE Service: Unknown [place] [id number] THIS IS AN AMENDED REPORT (Case [id number] COMPLETE) TC-99M FROM NON-HIGHLY ENRICHED U(NM Detailed) [...] 05, 2024 Date Verified: JUN 05, 2024 Trailer Truck Driver E-Sig: Report: [place], [place] STUDY: Treadmill Exercise SPECT Tc-99m myoview [...] performed with tomographic and three-dimensional reconstructions with Microco.sm NM/CT 640 system. The patient performed treadmill [...] data sets in addition to the conventional qcc-vnjldjsjgnw-fggksinxz images. Both filtered back projection and iterative [...] ventricular cavity. 4. SPECT images: Attenuation-corrected and knm-njsyctcrxgz-pbgbgesiy SPECT images were evaluated. SPECT images demonstrate normal myocardial perfusion. There is a medium size, mild intensity defect located in the rrtph-pl-dsxpqz inferior myocardium . The defect is fixed [...] BY: Kerri Mena MD, Cardiology Attending /KERRI LONG-THIERRYD [facility] May 27, 2024 08:07 AM MYOVIEW(2): ERIK GALLEGO [id number] -1945 M Ex Date: MAY 27, 2024@08:07 Req Phys: STEINBERGLAURA Jovanny Landry Loc: [facility] [employer] (Req'g Loc) Img Loc: NUCLEAR MEDICINE Service: [place] [address] THIS IS AN AMENDED REPORT (Case [id number] COMPLETE) MYOVIEW(2) (NM Detailed) CPT:A9502 Reason for [...] 05, 2024 Date Verified: JUN 05, 2024 Trailer Truck Driver E-Sig: Report: [facility] [place], [place] STUDY: Treadmill Exercise SPECT Tc-99m myoview [...] for myocardial ischemia during exercise. 3. The Velze treadmill score represents intermediate risk for future [...] performed with tomographic and three-dimensional reconstructions with Microco.sm NM/CT 640 system. The patient performed treadmill [...] data sets in addition to the conventional utf-sgchqthvclv-fypizckmn images. Both filtered back projection and iterative [...] ventricular cavity. 4. SPECT images: Attenuation-corrected and ziy-quzitvwxkcr-sbocrpuit SPECT images were evaluated. SPECT images demonstrate normal myocardial perfusion. There is a medium size, mild intensity defect located in the chnpv-uz-memybh inferior myocardium . The defect is fixed [...] Mena MD, Cardiology Attending /KERRI LONG-LOWELL [facility] May 27, 2024 08:07 AM CARD. STRESS TEST W/TREADMILL/...: ERIK GALLGEO [id number] -1945 M Exm Date: MAY 27, 2024@08:07 Req Phys: LAURA STEINBERG Loc: [facility] [employer] (Req'g Loc) Img Loc: NUCLEAR MEDICINE Service: [place] [address] THIS IS AN AMENDED REPORT (Case [id number] COMPLETE) CARD. STRESS TEST W/TREADMILL/...(NM Detailed) CPT:38616 Reason for Study: SEE CLINICAL HISTORY Clinical [...] 05, 2024 Date Verified: JUN 05, 2024 Trailer Truck Driver E-Sig: Report: [facility] [place] STUDY: Treadmill Exercise SPECT Tc-99m myoview [...] performed with tomographic and three-dimensional reconstructions with Microco.sm NM/CT 640 system. The patient performed treadmill [...] data sets in addition to the conventional hjl-lhbkpwzamlq-wbrogpcya images. Both filtered back projection and iterative [...] ventricular cavity. 4. SPECT images: Attenuation-corrected and wps-vyqesedusfv-esaufwobu SPECT images were evaluated. SPECT images demonstrate normal myocardial perfusion. There is a medium size, mild intensity defect located in the dpwvw-sd-rjzfer inferior myocardium . The defect is fixed [...] Mena MD, Cardiology Attending /KERRI LONG-LOWELL [facility] Pathology Reports: +/- 30 days of [...] the Encounter. The data comes from all [place] treatment facilities. Date/Time Pathology Report Provider Source Jul 10, 2024 09:41 AM LR SURGICAL PATHOL OGY REPORT: LOCAL TITLE: LR SURGICAL PATHOLOGY REPORT DATE OF NOTE: JUL 10, 2024@09:41:15 ENTRY DATE: JUL 10, 2024@09:41:15 AUTHOR: JOE LEUNG EXP COSIGNER: URGENCY: STATUS: COMPLETED $APHDR Reporting Lab: [facility] [IA# [id number]] [address] [place] [address] - - - - - - - [...] left earlobe and consists of an unoriented, xhu-rztg-mdcnrvh, yellow/white shave of skin measuring 0.5 x 0.4 x 0.2 cm. A rough papule is identified over the skin surface measuring 0.4 x 0.3 cm. The cut surface is yellow/white and grossly unremarkable. The cut surface is inked blue. The specimen is bisected to reveal a white solid interior. The specimen is submitted entirely in a single cassette. 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 /peyton/ JOE LEUNG pathologist Signed Jul 10, 2024@09:41 Performing Laboratory: Surgical Pathology Report Performed By: [facility] [CLIA# [id number]] [address] [place] [id number] $FTR - - - - - - - - - - - - - - - - - - - - - - - - - - - - - - - - - - - - - - - - (End of report) JOE LEUNG MD [facility] Date Jul 10, 2024 - - - - - - - - - - - - - - - - - - - - - - - - - - - - - - - - - - - - - - - - ERIK GALLEGO STANDARD FORM 515 ID:[id number] SEX:M :1945 AGE: 78 LOC:PATH PCP: Laura Steinberg MD /peyton/ JOE LEUNG pathologist Signed: 07/10/2024 09:41 JOE LEUNG [facility] Encounter Notes: All associated encounter notes This section contains the clinical notes associated to the Encounter. Date/Time Encounter Note(s) Provider Source Jun 20, 2024 12:21 PM LETTERS: LOCAL TITLE: SPECIALTY CONTACT LETTER STANDARD TITLE: LETTERS DATE OF NOTE: JUN 20, 2024@12:21 ENTRY DATE: JUN 20, 2024@12:21:30 AUTHOR: ART KIM EXP COSIGNER: URGENCY: STATUS: COMPLETED [facility] [address] [place] [address] Mr. ERIK SEN JULIÁN [address] [place] [id number] JUN 20, 2024 Dear ERIK GALLEGO, We have been unable to contact you by telephone to schedule an appointment in our Cardiology clinic. Your health and well-being are important to us. Please call us at or . Select Option #2 and then #3. We look forward to hearing from you soon. Sincerely yours, Cardiology [facility] ART KIM [facility]
--- OUTSIDE RECORDS SUMMARY | 2024-07-24 21:24 | XMS_ITS | Encounter Summary ---
Author Name [facility] [place] [facility] [place] Address [address] [place] [address] Care Team Providers Care Tractor Trailer Mechanic Name Role Phone LAURA STEINBERG Primary Care [...] PART A Oct 14, 2009 PART A [id number] Alex MISHRA PATIENT MEDICARE (WNR) MEDICARE (M) PART B Oct 14, 2009 PART B [id number] Alex MISHRA PATIENT MEDICARE (WNR) MEDICARE (M) PART A Oct 14, 2009 PART A [id number] Alex MISHRA [place] PATIENT MEDICARE (WNR) MEDICARE (M) PART B Oct 14, 2009 PART B [id number] Alex MISHRA [place] PATIENT MEDICARE (WNR) MEDICARE (M) PART B Oct 14, 2009 PART B [id number] Alex MISHRA PATIENT MEDICARE (WNR) MEDICARE (M) PART A Oct 14, 2009 PART A [id number] Alex MISHRA PATIENT Selected Encounter This section includes the information on record at [place] for the Encounter. Date/Time Encounter Type Encounter Description Reason Provider Source Mar 04, 2024 09:00 AM PSYTX W PT 60 MINUTES [facility] - IND ICD-10-CM F43.10 Post-traumatic stress disorder, unspecified BENITEZ DUNN Jennifer Encounter Template Text not used by [place] Assessments - Encounter Diagnoses This section includes the primary and secondary diagnoses documented for the Encounter. Date/Time Primary/Secondary Diagnosis Diagnosis Name Provider Source Mar 04, 2024 09:46 AM PRIMARY Post-traumatic stress disorder, unspecified BENITEZ DUNN [facility] Plan of Treatment: Future Appointments (+ 6 [...] Date/Time Appointment Type Appointme nt Facility Name Mar 17, 2024 01:00 PM AMBULATORY - SURGERY [place] [facility] Mar 18, 2024 08:30 AM [facility] Mar 18, 2024 10:00 AM AMBULATORY - SURGERY [place] [facility] Mar 28, 2024 08:00 AM AM[place]ULATORY - NONE [place] [facility] Apr 01, 2024 10:00 AM AMBULATORY - PSYCHIATRY [facility] Apr 15, 2024 09:00 AM AMBULATORY - PSYCHIATRY [facility] Apr 16, 2024 11:35 AM AMBULATORY - MEDICINE [facility] Apr 25, 2024 08:30 AM AMBULATORY - SURGERY [place]-[facility] Apr 29, 2024 10:00 AM AMBULATORY - MEDICINE JAYNE SAMANTHA [facility] May 06, 2024 10:00 AM AMBULATORY - PSYCHIATRY [facility] May 07, 2024 10:00 AM [facility] May 15, 2024 10:30 AM [facility] May 20, 2024 08:00 AM AMBULATORY - NONE [place] [facility] May 20, 2024 10:00 AM [facility] May 27, 2024 08:00 [facility] Jun 06, 2024 08:00 AM AMBULATORY - SURGERY [place] JEWEL [facility] Jun 10, 2024 08:50 AM AMBULATORY - MEDICINE [facility] Jun 10, 2024 11:00 AM [facility] Jun 20, 2024 09:00 AM AMBULATORY - NONE [facility] Jun 24, 2024 08:00 AM AMBULATORY - NONE [facility] Lab Results: +/- 30 days [...] Type Comment Feb 14, 2024 10:41 AM [facility] MICROALBUMIN/CREAT RATIO URINE Specimen Type: URINE No comment entered. Ordering Provider: LAURA STEINBERG Report Released Date/Time: Feb 14, 2024 09:03 AM Reporting Lab: [address] [address] Performing Lab: [address] [address] CREATININE 133.0 mg/dL MICROALBUMIN QUANT 5.8 mg/L 0.0-30.0 .MICROALBUMIN/CREA RATIO 4.4 ug/mg{creat} Feb 14, 2024 10:41 AM [facility] DRUG SCREEN EXPANDED IN-HOUSE URINE Specimen Type: [...] Feb 14, 2024 09:03 AM Reporting Lab: [address] [address] Performing Lab: [address] [address] TETRAHYDROCANNABINOL SCREEN NEG Cuto ff < 50 [...] < 1 Feb 14, 2024 10:19 AM [facility] LIPID PROFILE PLASMA Specimen Type: PLASM A [...] Feb 14, 2024 09:03 AM Reporting Lab: [address] [address] Performing Lab: [address] [address] CHOLESTEROL 161 mg/dL 0-199 TRIGLYCERIDE 84 mg/dL 0-149 HDL CHOLESTEROL 54 mg/dL 40-69 DIRECT LDL CHOL. 95 mg/dL 0-100 Feb 14, 2024 10:19 AM [facility] Specimen Type: PLASM [...] Feb 14, 2024 09:03 AM Reporting Lab: [address] [address] Performing Lab: [address] [address] CREATININE 1.38 mg/dL H 0.72-1.25 UREA NITROGEN [...] (CKD-EPI) 52 Feb 14, 2024 10:19 AM [facility] CBC/PLT BLOOD Specimen Type: BLOOD No comment entered. Ordering Provider: LAURA STEINBERG Report Released Date/Time: Feb 14, 2024 09:03 AM Reporting Lab: [facility] [address] [facility] [address] Performing Lab: [address] [address] WBC 6.7 10*3/uL 5.0-10.0 RBC 5.17 10*6/uL 4.6-6.2 HGB 15.8 g/dL 14.0-18.0 HCT 47.1 42.0-52.0 MCV 91.1 fL 80.0-94.0 MCH 30.6 pg 27.0-31.0 MCHC 33.5 g/dL 32.0-36.0 PLT 257 10*3/uL 150-450 MPV 10.5 fL 9.0-13.1 RDW 14.4 11.0-16.0 NRBC 0.0 0.0-0.0 Feb 14, 2024 10:19 AM [facility] TSH PLASMA Specimen Type: PLASM A Comment: [...] Feb 14, 2024 09:03 AM Reporting Lab: [address] [address] Performing Lab: [address] [address] TSH 1.1076 m[IU]/mL 0.3500-4.9400 Feb 14, 2024 10:19 AM [facility] GLYCOHEMOGLOBIN BLOOD Specimen Type: BLOOD Comment: [place] guidelines for A1c interpretation: Glycemic control targets are based on Shared Decision Making between clinicians and patients. Criteria used to establish an A1c target recommendation can be found at https://www.ak.gov/qualityandpatientsafety/ and include the use of result accuracy [...] 8.73 and 9.27. Ref: https://ngsp.org/CAPdata.asp. The in-house [facility] D-100 analyzer has a historical CV <= 2%. Contact the laboratory for further performance characteristics of this assay. Ordering Provider: LAURA STEINBERG Report Released Date/Time: Feb 14, 2024 09:03 AM Reporting Lab: [facility] [address] [facility] [address] Performing Lab: [facility] [address] [facility] [address] GLYCOHEMOGLOBIN 6.0 4.4-6.4 Feb 14, 2024 10:19 AM [facility] B12 VITAMIN PLASMA Specimen Type: PLASM [...] Feb 14, 2024 09:03 AM Reporting Lab: [address] [address] Performing Lab: [address] [address] B12 VITAMIN 761 pg/mL 213-816 Feb 14, 2024 10:19 AM [facility] 25-OH VITAMIN D SERUM Specime n Type: [...] Feb 14, 2024 09:03 AM Reporting Lab: [address] [address] Performing Lab: [address] [address] 25-OH VITAMIN D 42.5 ng/mL 20.0-50.0 Social History: Smoking Status (Most current) and [...] place. Date/Time Current Smoking Status Comment Edis vivary Feb 14, 2024 08:30 AM [place]-TOBACCO QUIT 15 YRS OR MORE [facility] Tobacco Use History This section includes a history of the smoking, or tobacco-related health factors, that were collected on or before the date of the Encounter. The data comes from the [place] facility where the Encounter took place. Date/Time Smoking Status/Tobacco Use Comment F juany Feb 14, 2024 08:30 AM [place]-TOBACCO QUIT 15 YRS OR MORE [facility] Jan 10, 2023 11:00 AM [place]-TOBACCO NEVER USED [facility] Dec 09, 2021 08:00 AM VA-TOBACCO NEVER USED [facility] Dec 10, 2020 09:30 AM VA-TOBACCO NEVER USED [facility] May 13, 2019 09:09 AM VA-TOBACCO NEVER USED [facility] Apr 03, 2018 09:45 AM VA-TOBACCO NEVER USED [facility] May 07, 2017 10:31 AM V9 LIFETIME NON-USER OF TOBACCO [facility] Apr 06, 2016 10:18 AM V9 LIFETIME NON-USER OF TOBACCO [facility] Jan 26, 2015 08:52 AM V9 LIFETIME NON-USER OF TOBACCO [facility] August 18, 2013 08:27 AM V9 LIFETIME NON-USER OF TOBACCO [facility] Sep 18, 2012 08:39 AM V9 LIFETIME NON-USER OF TOBACCO [facility] Jan 19, 2012 10:42 AM V9 LIFETIME NON-USER OF TOBACCO [facility] Jan 19, 2012 10:42 AM V9 TOBACCO OFFERED [facility] September 13, 2010 10:28 AM V9 LIFETIME NON-USER OF TOBACCO [facility] September 13, 2010 10:28 AM V9 TOBACCO OFFERED [facility] Sep 21, 2006 12:59 PM V9 LIFETIME NON-USER OF TOBACCO [facility] Jan 29, 2006 07:52 AM HF V9 LIFETIME NON-SMOKER [facility] Dec 30, 2004 08:05 AM HF V9 LIFETIME NON-SMOKER [facility] Dec 23, 2003 02:58 PM HF V9 LIFETIME NON-SMOKER [facility] Pathology Reports: +/- 30 days of the [...] the Encounter. The data comes from all [facility] facilities. Date/Time Pathology Report Provider Source Feb 05, 2024 03:20 PM LR SURGICAL PATHOL OGY REPORT: LOCAL TITLE: LR SURGICAL PATHOLOGY REPORT DATE OF NOTE: FEB 05, 2024@15:20:14 ENTRY DATE: FEB 05, 2024@15:20:14 AUTHOR: ROSS DOBSONER: URGENCY: STATUS: COMPLETED $APHDR Reporting Lab: [facility] [CLIA# [id number]] [address] [place] [address] - - - - - - - [...] Surgeon/physician: PELON CHEUNG Attending Surgeon: Pelon Cheung =-=-=-=-=-=-=-=-=-=-=-=-=-=-=-= -=-=-=-=-=-=-=-=-=-=-=-=-=-=-=- =-=-=-=-=-=-=-=-= - - - - - - - [...] submitted in one cassette. CPT CODE - 53763 MICROSCOPIC EXAM/DIAGNOSIS: Right long finger cyst, excision: -Findings consistent with digital mucous cyst. /peyton/ Ross Dobson MD Pathologist Signed Feb 05, 2024@15:20 Performing Laboratory: Surgical Pathology Report Performed By: [facility] [CLIA# [id number]] [address] [place] [id number] $FTR - - - - - - [...] - - - - - - ERIK MISHRA STANDARD FORM 515 ID:[id number] SEX:M :1945 AGE: 78 LOC:PATH PCP: Laura Steinberg MD /peyton/ Ross Dobson MD Pathologist Signed: 02/05/2024 15:20 ROSS DOBSON-CDD [facility] Encounter Notes: All associated encounter notes This section contains the clinical notes associated to the Encounter. Date/Time Encounter Note(s) Provider Source Mar 04, 2024 09:38 AM MENTAL HEALTH NOTE : LOCAL TITLE: BHIP PSYCHOTHERAPY NOTE STANDARD TITLE: MENTAL HEALTH NOTE DATE OF NOTE: MAR 04, 2024@09:38 ENTRY DATE: MAR 04, 2024@09:38:40 AUTHOR: BENITEZ DUNN COSIGNER: URGENCY: STATUS: COMPLETED BHIP PSYCHOTHERAPY NOTE Has ADDENDA Date of Session: MAR 04, 2024 Duration of Session: 55 min Session Number: 2 Diagnosis Addressed During Session: PTSD, chronic Session Format: Face to face Reason for Session: Ongoing monitoring of s/s of PTSD and treatment planning Rationale for Duration of Session: Mental Status: Mr. Corcoran speech was normal in rate, rhythm, and volume. He denied hallucinations, delusions, or any other psychotic thought processes. His thought process was linear and logical. He denied any current suicidal or homicidal ideation, intent, or plans. C-SSRS Screening [place]-Suicide Severity Rating Scale (C-SSRS Screener) 1. Over the past month, have you wished you were or wished you could go to sleep and not wake up? No 2. Over the past month, have you had any actual thoughts of killing yourself? No 3. Over the past month, have you been thinking about how you might do this? No 4. Over the past month, have you had these thoughts and had some intention of acting on them? No 5. Over the past month, have you started to work out or worked out the details of how to kill yourself? No 6. If yes, at any time in the past month did you intend to carry out this plan? Response not required due to responses to other questions. 7. In your lifetime, have you ever done anything, started to do anything, or prepared to do anything to end your life (for example, collected pills, obtained a gun, gave away valuables, went to the roof but didn't jump)? No 8. If YES, was this within the past 3 months? No Assessment Data: Whole Health Interventions Session Content: Mr. Mishra reports increased distress as the anniversary of his 's approaches. It is forever associated with the Holiday Season. Offered validation and empathy, urged him to be proactive and plan activities with other people to avoid being alone. Also modelled radical acceptance. Explored nature of grief and associated emotions. Therapeutic Intervention: Provided a supportive environment with reflective listening, normalization and validation. Assessed Adrian for symptoms and current stressors. Discussed healthy coping skills to manage stress and sleep. Assessed progress toward goals and ongoing therapeutic needs. Assessed for SI/HI. Encouraged Adrian to call crisis line if needed. Patient Response to Treatment: Attentive and cooperative Progress Towards Treatment Goal: Stable Plan and Scheduling Instructions: Apr 01 2024 @10:00 DEANNE IVONNE SW#6 LD Pain management, if needed, is managed by primary care. Reason for Ordering Tests, Consults or Changes in Medications: No new orders or changes indicated at this time /peyton/ Benitez Dunn, DIRECTOR OF VIDEO ANALYTICS, [employer]AKER BU[employer]ING WHEEL, ACSW Licensed Clinical Paste Plant Supervisor Signed: 03/04/2024 09:46 03/05/2024 ADDENDUM STATUS: COMPLETED per rtc 03/04/2024 aware and letter mailed /peyton/ Nafisa Salmeron Advanced MSA Signed: 03/05/2024 13:18 BENITEZ DUNN [facility] Mar 04, 2024 08:41 AM MENTAL HEALTH DEAN TMENT PLAN NOTE: LOCAL TITLE: [facility] MASTER TREATMENT PLAN UPDATE STANDARD TITLE: MENTAL HEALTH TREATMENT PLAN NOTE DATE OF NOTE: MAR 04, 2024@08:41 ENTRY DATE: MAR 04, 2024@08:42:20 AUTHOR: BENITEZ DUNN EXP COSIGNER: URGENCY: STATUS: COMPLETED [facility] MASTER TREATMENT PLAN UPDATE - Feb, @ 08:41AM Visit Date: Feb, @ 09:00 - DEANNE IVONNE SW#6 LD FURNITURE ASSOCIATE: VIKRAM ROSE / [facility] TEAM #3/V09 STRENGTHS: Expressed desire/motivation for change Has supportive family and/or friends Identified Purpose in Life Stable Close Relationships NEEDS: I need to learn about my illness BARRIERS: Physical/Medical Issues Prolonged grief TREATMENT PLAN: Problem: Adrian has not been able to recover from the traumatic event(s) they experienced, as evidenced by nightmares, hyperviligence, social isolation, depressed mood, irritable mood, sleep difficulty Status: ACTIVE Goal: Increase 's ability to make sense of traumatic experiences, and feel the natural emotions associated with them. Status: ACTIVE Objective: will experience less emotional distress in previously-avoided situations as measured by a decrease of emotion on the PCL5 and PHQ9. Status: ACTIVE Projected Target: 09/20/2022 Intervention: 12 sessions of Individual Supportive Therapy supplemented with EBP's EMDR and CPT Status: ACTIVE Discipline: Mental Health Clinic Time Frame: One time per month for 12 months Providers: BENITEZ DUNN: SUPERVISOR [employer] DISCIPLINE: Mental Health Clinic Entered Treatment: 09/08/2022 @ 09:55AM Review Date: 03/04/2024 Anticipated Discharge: 03/13/2025 FAMILY ACTION: PATIENT DECLINED FAMILY PARTICIPATION. INTERDISCIPLINARY TEAM: BENITEZ DUNN: SUPERVIS[employer] KESHA LEMUS: REGISTERED NURSE BENITEZ DUNN: SUPERVIS[employer] COMMUNICATION: Relevant treatment options, including evidence-based interventions, were considered and discussed with the . YES A copy of the treatment plan was given to the . YES Risks, benefits, and potential complications were discussed with the . NO /peyton/ TRACY Mantilla, [employer]AKER [employer]ING [employer], ACSW Licensed Clinical Paste Plant Supervisor Signed: 03/04/2024 08:42 Receipt Acknowledged By: 03/04/2024 08:51 /es/ VIKRAM ROSE LCSW 03/04/2024 09:05 /peyton/ OMID Abad, RN REGISTERED NURSE BENITEZ DUNN [facility]
--- OUTSIDE RECORDS SUMMARY | 2024-07-24 21:24 | XMS_ITS ---
Author Name [facility] Organization [facility] [place] Address [address] [place] [id number] Care Team Providers Care Press Leader Name Role Phone LAURA MCKEON Primary Care [...] PART A Oct 14, 2009 PART A [id number] Alex GAL[place] PATIENT MEDICARE (WNR) MEDICARE (M) PART B Oct 14, 2009 PART B [id number] Alex [place] PATIENT MEDICARE (WNR) MEDICARE (M) PART A Oct 14, 2009 PART A [id number] Alex [place] PATIENT MEDICARE (WNR) MEDICARE (M) PART B Oct 14, 2009 PART B [id number] Alex [place] PATIENT MEDICARE (WNR) MEDICARE (M) PART B Oct 14, 2009 PART B [id number] Alex [place] PATIENT MEDICARE (WNR) MEDICARE (M) PART A Oct 14, 2009 PART A [id number] Alex G[place] PATIENT Selected Encounter This section includes the information on record at [place] for the Encounter. Date/Time Encounter Type Encounter Description Reason Pro vider Source Feb 21, 2024 10:09 AM Outpatient Encounter ADMIN PAT ACTIVTIES (MASNONCT) IHE Encounter Template Text not used by [place] Plan of Treatment: Future Appointments (+ 6 months) and Future Tests (+/- 45 days) The Plan of Treatment section includes future care activities for the patient from all [place] treatmentfacilities. This section includes future appointments and future orders which are active, pending or scheduled. Future Appointments This section includes appointments that were scheduled to occur 6 months from the date of the Encounter, up to a maximum of 20 appointments. The data comes from all [place] treatment facilities. Appointment Date/Time Appointment Type Appointme nt Facility Name Feb 27, 2024 02:00 PM [facility] Feb 28, 2024 01:30 PM [facility] [place] [facility] Feb 28, 2024 02:30 PM AMBULATORY - REHAB MEDICIN [facility] Feb 29, 2024 09:20 AM AMBULATORY - SURGERY [place] [facility] Mar 04, 2024 09:00 AM AMBULATORY - PS[facility]CHIATRY [facility] Mar 17, 2024 01:00 PM AMBULATORY - SURGERY [place] [facility] Mar 18, 2024 08:30 AM AMBULATORY - REHAB MEDICIN E [facility] Mar 18, 2024 10:00 AM AMBULATORY - SURGERY [place] [facility] Mar 28, 2024 08:00 AM [facility] NONE [facility] Apr 01, 2024 10:00 AM AMBULATORY - PS[facility]CHIATRY [facility] Apr 15, 2024 09:00 AM AMBULATORY - PSYCHIATRY [facility] Apr 16, 2024 11:35 AM AMBULATORY - MEDICINE [facility] Apr 25, 2024 08:30 AM [facility] [place] [facility] Apr 29, 2024 10:00 AM AMBULATORY - MEDICINE [facility] May 06, 2024 10:00 AM AMBULATORY - PSYCHIATRY [facility] May 07, 2024 10:00 AM AMBULATORY - MEDICINE [facility] May 15, 2024 10:30 AM AMBULATORY - REHAB MEDICIN E [facility] May 20, 2024 08:00 AM AMBULATORY - NONE [facility] May 20, 2024 10:00 AM AMBULATORY - MEDICINE [facility] May 27, 2024 08:00 AM AMBULATORY - NONE [facility] Lab Results: +/- 30 days of [...] Feb 14, 2024 09:03 AM Reporting Lab: [address] [address] Performing Lab: [address] [address] CREATININE 133.0 mg/dL MICROALBUMIN QUANT 5.8 mg/L 0.0-30.0 .MICROALBUMIN/CREA RATIO 4.4 ug/mg{creat} Feb 14, 2024 10:41 AM [facility] DRUG SCREEN EXPANDED IN-HOUSE URINE Specimen [...] Feb 14, 2024 09:03 AM Reporting Lab: [facility] [address] [facility] [address] Performing Lab: [address] [address] TETRAHYDROCANNABINOL SCREEN NEG Cuto ff < 50 [...] < 1 Feb 14, 2024 10:19 AM [facility] LIPID PROFILE PLASMA Specimen Type: PLASM [...] Feb 14, 2024 09:03 AM Reporting Lab: [address] [address] Performing Lab: [address] [address] CHOLESTEROL 161 mg/dL 0-199 TRIGLYCERIDE 84 mg/dL 0-149 HDL CHOLESTEROL 54 mg/dL 40-69 DIRECT LDL CHOL. 95 mg/dL 0-100 Feb 14, 2024 10:19 AM [facility] PANEL 5 PLASMA Specimen Type: PLASM A [...] Feb 14, 2024 09:03 AM Reporting Lab: [address] [address] Performing Lab: [address] [address] CREATININE 1.38 mg/dL H 0.72-1.25 UREA NITROGEN [...] (CKD-EPI) 52 Feb 14, 2024 10:19 AM [facility]/PLT B[facility]OD Specimen Type: BLOOD No comment entered. Ordering Provider: LAURA MCKEON Report Released Date/Time: Feb 14, 2024 09:03 AM Reporting Lab: [address] [address] Performing Lab: [facility] [address] [facility] [address] WBC 6.7 10*3/uL 5.0-10.0 RBC 5.17 10*6/uL 4.6-6.2 HGB 15.8 g/dL 14.0-18.0 HCT 47.1 42.0-52.0 MCV 91.1 fL 80.0-94.0 MCH 30.6 pg 27.0-31.0 MCHC 33.5 g/dL 32.0-36.0 PLT 257 10*3/uL 150-450 MPV 10.5 fL 9.0-13.1 RDW 14.4 11.0-16.0 NRBC 0.0 0.0-0.0 Feb 14, 2024 10:19 AM [facility] TSH PLASMA Specimen Type: PLASM A [...] Feb 14, 2024 09:03 AM Reporting Lab: [address] [address] Performing Lab: [address] [address] TSH 1.1076 m[IU]/mL 0.3500-4.9400 Feb 14, 2024 10:19 AM [facility] GLYCOHEMOGLOBIN BLOOD Specimen Type: BLOOD Comment: [place] guidelines for A1c interpretation: Glycemic control targets are based on Shared Decision Making between clinicians and patients. Criteria used to establish an A1c target recommendation can be found at https://www.pr.gov/qualityandpatientsafety/ and include the use of result accuracy [...] 8.73 and 9.27. Ref: https://ngsp.org/CAPdata.asp. The in-house [employer] D-100 analyzer has a historical CV <= 2%. Contact the laboratory for further performance characteristics of this assay. Ordering Provider: LAURA MCKEON Report Released Date/Time: Feb 14, 2024 09:03 AM Reporting Lab: [address] [address] Performing Lab: [address] [address] GLYCOHEMOGLOBIN 6.0 4.4-6.4 Feb 14, 2024 10:19 AM [facility] B12 VITAMIN PLASMA Specimen Type: PLASM [...] Feb 14, 2024 09:03 AM Reporting Lab: [address] [address] Performing Lab: [address] [address] B12 VITAMIN 761 pg/mL 213-816 Feb 14, 2024 10:19 AM [facility] 25-OH VITAMIN D SERUM Specime n [...] Feb 14, 2024 09:03 AM Reporting Lab: [address] [address] Performing Lab: [address] [address] 25-OH VITAMIN D 42.5 ng/mL 20.0-50.0 Jan 31, 2024 11:09 AM [facility] GLUCOSE-HAND MONITOR CAPILLARY Specime n Type: CAPILLARY Comment: $ Test performed by: [id number] Meter #: [id number] Ordering Provider: PELON CHEUNG Report Released Date/Time: Feb 04, 2024 07:19 AM Reporting Lab: [address] [address] Performing Lab: [address] [address] GLUCOSE-HAND MONITOR 125 mg/dL H 71-99 Pathology [...] the Encounter. The data comes from all [place] treatment facilities. Date/Time Pathology Report Provider Source Feb 05, 2024 03:20 PM [facility] SURGICAL PATHOL OGY REPORT: LOCAL TITLE: LR SURGICAL PATHOLOGY REPORT DATE OF NOTE: FEB 05, 2024@15:20:14 ENTRY DATE: FEB 05, 2024@15:20:14 AUTHOR: ROSS DOBSON COSIGNER: URGENCY: STATUS: COMPLETED $APHDR Reporting Lab: [facility] [IA# [id number]] [address] [place] [address] - - - - - - - [...] submitted in one cassette. CPT CODE - 47764 MICROSCOPIC EXAM/DIAGNOSIS: Right long finger cyst, excision: -Findings consistent with digital mucous cyst. /peyton/ Ross Dobson MD Pathologist Signed Feb 05, 2024@15:20 Performing Laboratory: Surgical Pathology Report Performed By: [facility] [CLIA# [id number]] [address] [place] [id number] $FTR - - - - - - [...] - - ERIK GAL[place] STANDARD FORM 515 ID:[id number] SEX:M :1945 AGE: 78 LOC:PATH PCP: Laura Mckeon MD /peyton/ Ross Dobson MD Pathologist Signed: 02/05/2024 15:20 ROSS DOBSON-D [facility] Jan 31, 2024 12:13 PM LR SURGICAL PATHOL OGY REPORT: LOCAL TITLE: LR SURGICAL PATHOLOGY REPORT DATE OF NOTE: JAN 31, 2024@12:13:13 ENTRY DATE: JAN 31, 2024@12:13:13 AUTHOR: JUDY SIGALA EXP COSIGNER: URGENCY: STATUS: COMPLETED $APHDR Reporting Lab: [facility] [IA# [id number]] [address] [place] [address] - - - - - - - [...] MOHS EXCISION BIOPSY ACCESSION NO. [id number] RULE OUT SQUAMOUS CELL CARCINOMA LEFT PREAURICULAR [...] CELL CARCINOMA LEFT PREAURICULAR CHEEK. CPT CODE: 70247 I ACTED BOTH THE SURGEON AND THE PATHOLOGIST FOR THIS CASE. PLEASE SEE CORRESPONDING MOHS NOTE IN CPRS AND MOHS MAP SCANNED TO [place]. /es/ JUDY SIGALA Chief, Dermatology Signed Jan 31, 2024@12:13 Performing Laboratory: Surgical Pathology Report Performed By: [facility] [CLIA# [id number]] [address] [place] [phone] $FTR - - - - - - - - - - - - - - - - - - - - - - - - - - - - - - - - - - - - - - - - (End of report) JUDY SIGALA MD [facility] Date Jan 22, 2024 - - - - - - - - - - - - - - - - - - - - - - - - - - - - - - - - - - - - - - - - ERIK GALLE[place] STANDARD FORM 515 ID:[id number] SEX:M :1945 AGE: 78 LOC:DERM PCP: Laura Mckeon MD /[place]/ JUDY SIGALA Chief, Dermatology Signed: 01/31/2024 12:13 [facility] Encounter Notes: All associated encounter notes This section contains the clinical notes associated to the Encounter. Date/Time Encounter Note(s) Provider Source Feb 21, 2024 10:09 AM PODIATRY TELEPHONE ENCOUNTER NOTE: LOCAL TITLE: PODIATRY TELEPHONE CARE NOTE STANDARD TITLE: PODIATRY TELEPHONE ENCOUNTER NOTE DATE OF NOTE: FEB 21, 2024@10:09 ENTRY DATE: FEB 21, 2024@10:09:45 AUTHOR: VAIBHAV BARBER EXP COSIGNER: URGENCY: STATUS: COMPLETED PODIATRY TELEPHONE CARE NOTE Has ADDENDA called and no vm set up called other number on file and per daughter Samantha will advise of cxl appt 02-22-24 at 920 if pt calls back I was to offer first avail with hot dip plating supervisor clinic if just need nail trim/nail care or next avail with provider...[facility] supervisor [facility] as of now has avail 02-28 and 03-03 orig rtc order from 11-09-23 /peyton/ VAIBHAV BARBER Signed: 02/21/2024 10:10 02/21/2024 ADDENDUM STATUS: COMPLETED Dennis Pod/Att5/Ld 02/22/2024@09:20 Cancelled By Clinic Dennis Pod Manager Corporate Marketing 02/29/2024@09:20 Above scheduled with patient on phone per rtc order. /peyton/ MICHELLE FORBES Cupola Hoist Operator Signed: 02/21/2024 10:51 [facility]
--- OUTSIDE RECORDS SUMMARY | 2024-07-24 21:24 | XMS_ITS | Encounter Summary ---
Author Name [facility] [place] [facility] [place] [place] Address [address] [place] [address] Care Team Providers Care Supervisor Plate Pasting Name Role Phone LAURA STEINBERG Primary Care [...] PART A Oct 14, 2009 PART A [id number] Alex GALLEGO PATIENT MEDICARE (WNR) MEDICARE (M) PART B Oct 14, 2009 PART B [id number] [phone] Alex GALLEGO PATIENT MEDICARE (WNR) MEDICARE (M) PART A Oct 14, 2009 PART A [id number] [id number] Alex GALLEGO PATIENT MEDICARE (WNR) MEDICARE (M) PART B Oct 14, 2009 PART B [id number] Alex G[place]GO PATIENT MEDICARE (WNR) MEDICARE (M) PART A Oct 14, 2009 PART A [id number] Alex GALLEGO PATIENT MEDICARE (WNR) MEDICARE (M) PART B Oct 14, 2009 PART B [id number] Alex GALLEGO PATIENT Selected Encounter This section includes the information on record at [place] for the Encounter. Date/Time Encounter Type Encounter Description Reason Pro vider Source Jun 06, 2024 07:54 AM Outpatient Encounter ADMIN PAT ACTIVTIES (MASNONCT) IHE Encounter Template Text not used by [place] Plan of Treatment: Future Appointments (+ 6 months) and Future Tests (+/- 45 days) The Plan of Treatment section includes future care activities for the patient from all [place] treatmentfacilities. This section includes future appointments and future orders which are active, pending or scheduled. Future Appointments This section includes appointments that were scheduled to occur 6 months from the date of the Encounter, up to a maximum of 20 appointments. The data comes from all [place] treatment facilities. Appointment Date/Time Appointment Type Appointme nt Facility Name Jun 10, 2024 08:50 AM [facility] Jun 10, 2024 11:00 AM [facility] - [facility]CHIATRY [facility] Jun 20, 2024 09:00 AM AM[place]ULATORY - NONE [place] [facility] Jun 24, 2024 08:00 AM AM[place]ULATORY - NONE [place] [facility] Jun 30, 2024 11:00 AM AM[place]ULATORY - NONE [place] [facility] Jun 30, 2024 03:00 PM AMBULATORY - MEDICINE [facility] Jul 01, 2024 09:00 AM AMBULATORY - MEDICINE [facility] Jul 07, 2024 10:00 AM AMBULATORY - PSYCHIATRY [facility] Jul 08, 2024 10:00 AM AMBULATORY - MEDICINE [place]NE NGTON [facility] Jul 10, 2024 08:30 AM AMBULATORY - MEDICINE [facility] Jul 24, 2024 03:00 PM AMBULATORY - PSYCHIATRY [facility] Aug 05, 2024 09:00 AM [facility] Aug 11, 2024 10:00 AM AMBULATORY - PSYCHIATRY [facility] Aug 12, 2024 09:00 AM AMBULATORY - MEDICINE JAYNE SINGH [facility] August 18, 2024 09:00 AM AMBULATORY - SURGERY LARRY HOLLOWAY [facility] September 02, 2024 08:20 AM AMBULATORY - SURGERY LARRY HOLLOWAY [facility] Oct 01, 2024 09:00 AM AMBULATORY - NONE DALE Rios [facility] Oct 30, 2024 09:00 AM AMBULATORY - PSYCHIATRY COREY NICHOLAS [facility] Lab Results: +/- 30 days of the encounter This section includes the Chemistry and Hematology Lab Results on record with [place] for the patient. Radiology Reports and Pathology Reports are provided separately, in subsequent sections. Lab Results This section contains the Chemistry/Hematology Results that were resulted 30 days before or 30 daysafter the date of the Encounter. Date/Time Source Result Type Result - Unit Interpretation Reference Range Specimen Type Comment Jun 30, 2024 03:27 PM [facility] BNP ([place]) PLASMA Specimen Type: PLASMA Comment: BNP results less than or equal to 100 pg/ml are airline security representative of normal values in patients without CHF. BNP results greater than 100 pg/ml are considered abnormal and suggestive of CHF. Higher BNP concentrations in the first 72 hours after Acute Coronary Syndrome are associated with an increased risk of , myocardial infarction and CHF. Ordering Provider: SACHI SAINZ Report Released Date/Time: Jun 30, 2024 03:21 PM Reporting Lab: [address] [address] Performing Lab: [address] [address] BNP ([place]) 22 pg/mL 0-100 Jun 30, [...] Jun 30, 2024 03:21 PM Reporting Lab: [address] [address] Performing Lab: [address] [address] CREATININE 1.43 mg/dL H 0.72-1.25 UREA NITROGEN [...] Jun 30, 2024 03:21 PM Reporting Lab: [address] [address] Performing Lab: [address] [address] WBC 7.2 10*3/uL 5.0-10.0 RBC 4.85 10*6/uL 4.6-6.2 HGB 14.7 g/dL 14.0-18.0 HCT 43.8 42.0-52.0 MCV 90.3 fL 80.0-94.0 MCH 30.3 pg 27.0-31.0 MCHC 33.6 g/dL 32.0-36.0 PLT 235 10*3/uL 150-450 MPV 10.6 fL 9.0-13.1 RDW 14.8 11.0-16.0 NRBC 0.0 0.0-0.0 May 15, 2024 09:46 AM [facility] BNP ([employer]) PLASMA Specimen Type: PLASMA Comment: BNP results less than or equal to 100 pg/ml are airline security representative of normal values in patients without CHF. BNP results greater than 100 pg/ml are considered abnormal and suggestive of CHF. Higher BNP concentrations in the first 72 hours after Acute Coronary Syndrome are associated with an increased risk of , myocardial infarction and CHF. Ordering Provider: LAURA STEINBERG Report Released Date/Time: May 07, 2024 10:35 AM Reporting Lab: [address] [address] Performing Lab: [address] [address] BNP ([place]) 29 pg/mL 0-100 May 15, 2024 09:46 AM [facility] MAGNESIUM PLASMA Specimen Type: PLASM A Comment: [...] 07, 2024 10:35 AM Reporting Lab: [address] [address] Performing Lab: [address] [address] MAGNESIUM 1.8 mg/dL 1.6-2.6 May 15, 2024 09:46 AM [facility] Specimen Type: PLASM A [...] 07, 2024 10:35 AM Reporting Lab: [address] [address] Performing Lab: [address] [address] CREATININE 1.54 mg/dL H 0.72-1.25 UREA NITROGEN [...] and tobacco- related health factors from the [place] facility where the Encounter took place. Current Smoking Status This section includes the most current smoking, or tobacco-related health factor, from the [place] facility where the Encounter took place. Date/Time Current Smoking Status Comment Edis baker May 07, 2024 10:00 AM VA-TOBACCO NEVER U SED CIGARETTES PSYCHIATRIC Tobacco Use History This section includes a history of the smoking, or tobacco-related health factors, that were collected on or before the date of the Encounter. The data comes from the [place] facility where the Encounter took place. Date/Time Smoking Status/Tobacco Use Comment Ramu juany May 07, 2024 10:00 AM VA-TOBACCO NEVER U SED OTHER TYPE PSYCHIATRIC Feb 14, 2024 08:30 AM VA-TOBACCO FORMER USER PSYCHIATRIC Feb 14, 2024 08:30 AM VA-TOBACCO QUIT 15 YRS OR MORE PSYCHIATRIC Jan 10, 2023 11:00 AM VA-TOBACCO NEVER USED PSYCHIATRIC Dec 09, 2021 08:00 AM VA-TOBACCO NEVER USED PSYCHIATRIC Dec 10, 2020 09:30 AM VA-TOBACCO NEVER USED PSYCHIATRIC May 13, 2019 09:09 AM VA-TOBACCO NEVER USED PSYCHIATRIC Apr 03, 2018 09:45 AM VA-TOBACCO NEVER USED PSYCHIATRIC May 07, 2017 10:31 AM V9 LIFETIME NON-USER OF TOBACCO PSYCHIATRIC Apr 06, 2016 10:18 AM V9 LIFETIME NON-USER OF TOBACCO PSYCHIATRIC Jan 26, 2015 08:52 AM V9 LIFETIME NON-USER OF TOBACCO PSYCHIATRIC August 18, 2013 08:27 AM V9 LIFETIME NON-USER OF TOBACCO PSYCHIATRIC Sep 18, 2012 08:39 AM V9 LIFETIME NON-USER OF TOBACCO PSYCHIATRIC Jan 19, 2012 10:42 AM V9 LIFETIME NON-USER OF TOBACCO PSYCHIATRIC Jan 19, 2012 10:42 AM V9 TOBACCO OFFERED PSYCHIATRIC September 13, 2010 10:28 AM V9 LIFETIME NON-USER OF TOBACCO PSYCHIATRIC September 13, 2010 10:28 AM V9 TOBACCO OFFERED PSYCHIATRIC Sep 21, 2006 12:59 PM V9 LIFETIME NON-USER OF TOBACCO PSYCHIATRIC Jan 29, 2006 07:52 AM HF V9 LIFETIME NON-SMOKER PSYCHIATRIC Dec 30, 2004 08:05 AM HF V9 LIFETIME NON-SMOKER PSYCHIATRIC Dec 23, 2003 02:58 PM HF V9 LIFETIME NON-SMOKER PSYCHIATRIC Radiology Reports: +/- 30 days of the [...] the Encounter. The data comes from all [facility] facilities. Date/Time Radiology Report Provider Source May 29, 2024 05:[address] PERFORMED BY OTHER FACILITY: ERIK GALLEGO [id number] -1945 M Ex Date: MAY 29, 2024@17:13 Req Phys: LAURA STEINBERG Pat Loc: DEANNE PACT LULU 1-2 (Req'g Lo Img Loc: OUTSIDE2 LD CT Service: Unknown (Case [id number] COMPLETE) [id number] CT PERFORMED BY OTHER FACIL(CT Detailed) CPT:63026 Reason for Study: Exam imported from outside Clinical History: Original Data for Imported Study Patient Name: ERIK GALLEGO Date: 1945 Sex: M Study Date: 05/29/24 Study Time: 05:13:55 Study Description: CT CHEST PE/ABD/PEL W Referring Physician: TAMMI GEE Series 1: 2 CT files, 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 Series 2: 216 CT files, description: 5.0mm [...] Diagnostic Code: VERIFIED BY: / *ELECTRONICALLY FILED* PSYCHIATRIC May 27, 2024 08:07 AM MYOVIEW(1): ERIK GALLEGO [id number] -1945 M Exm Date: MAY 27, 2024@08:07 Req Phys: LAURA STEINBERG Pat Loc: DEANNE POD ASBESTOS CLOTH INSPECTOR (Req'g Loc) Img Loc: NUCLEAR MEDICINE Service: [place] [address] (Case [id number] COMPLETE) MYOVIEW(1) (NM Detailed) CPT:A9502 Reason for [...] 27, 2024 Date Verified: MAY 27, 2024 Director Stage E-Sig: Report: STUDY: GXT REPORT: Patient exercised [...] Staff: ANIA ANDRADE APRN, Cardiology Verified by table games dealer for ANIA ANDRADE /ANIA ESPINOZA-[facility] May 27, 2024 08:07 AM TC-99M FROM NON-HIGHLY ENRICHED URANIUM SOURCE: ERIK GALLEGO [id number] -1945 M Ex Date: MAY 27, 2024@08:07 Req Phys: LAURA STEINBERG Pat Loc: DE[facility] POD ASBESTOS CLOTH INSPECTOR (Req'g Loc) Img Loc: NUCLEAR MEDICINE Service: [place] [address] THIS IS AN AMENDED REPORT (Case [id number] COMPLETE) TC-99M FROM NON-HIGHLY ENRICHED U(NM Detailed) [...] 05, 2024 Date Verified: JUN 05, 2024 Director Stage E-Sig: Report: [facility], [place], [place] STUDY: Treadmill Exercise SPECT Tc-99m myoview [...] performed with tomographic and three-dimensional reconstructions with Abyz NM/CT 640 system. The patient performed treadmill [...] data sets in addition to the conventional xpm-kgaunppvgeb-dtpkzrunv images. Both filtered back projection and iterative [...] ventricular cavity. 4. SPECT images: Attenuation-corrected and guu-msqbpmskhgd-yytprvdyn SPECT images were evaluated. SPECT images demonstrate normal myocardial perfusion. There is a medium size, mild intensity defect located in the uzqxv-ml-mnsexp inferior myocardium . The defect is fixed [...] BY: Kerri Mena MD, Cardiology Attending /[facility] May 27, 2024 08:07 AM 92993(D) MYOCARDIAL SPECT(MULTIPLE): ERIK GALLEGO [id number] -1945 M [facility] Date: MAY 27, 2024@08:07 Req Phys: LAURA STEINBERG Loc: DEANNE POD ASBESTOS CLOTH INSPECTOR (Req'g Loc) Img Loc: NUCLEAR MEDICINE Service: [place] [address] THIS IS AN AMENDED REPORT (Case [id number] COMPLETE) 03489(D) MYOCARDIAL SPECT(MULTIPL(NM Detailed) CPT:29201 Proc Modifiers : GXT Reason for Study: [...] 05, 2024 Date Verified: JUN 05, 2024 Director Stage E-Sig: Report: [place], [place] STUDY: Treadmill Exercise SPECT Tc-99m myoview [...] performed with tomographic and three-dimensional reconstructions with Abyz NM/CT 640 system. The patient performed treadmill [...] data sets in addition to the conventional toh-ddogdhgqiid-egoiueuvt images. Both filtered back projection and iterative [...] ventricular cavity. 4. SPECT images: Attenuation-corrected and hib-qpgnjishgkk-nhfeklzyn SPECT images were evaluated. SPECT images demonstrate normal myocardial perfusion. There is a medium size, mild intensity defect located in the ksyex-de-fmmegr inferior myocardium . The defect is fixed [...] Kerri Mena MD, Cardiology Attending /[facility] May 27, 2024 08:07 AM MYOVIEW(2): ERIK GALLEGO [id number] -1945 M Ex Date: MAY 27, 2024@08:07 Req Phys: STEINBERGLAURA Jovanny Landry Loc: DEANNE POD ASBESTOS CLOTH INSPECTOR (Req'g Loc) Img Loc: NUCLEAR MEDICINE Service: [place] [address] THIS IS AN AMENDED REPORT (Case [id number] COMPLETE) MYOVIEW(2) (NM Detailed) CPT:A9502 Reason for [...] 05, 2024 Date Verified: JUN 05, 2024 Director Stage E-Sig: Report: [facility], [place], [place] STUDY: Treadmill Exercise SPECT Tc-99m myoview [...] performed with tomographic and three-dimensional reconstructions with Abyz NM/CT 640 system. The patient performed treadmill [...] data sets in addition to the conventional cqx-fepochnyljy-jgfrbdpuo images. Both filtered back projection and iterative [...] ventricular cavity. 4. SPECT images: Attenuation-corrected and xku-phyjkaikezf-seaaanojg SPECT images were evaluated. SPECT images demonstrate normal myocardial perfusion. There is a medium size, mild intensity defect located in the ncgkn-dx-bokqvx inferior myocardium . The defect is fixed [...] Kerri Mena MD, Cardiology Attending /[facility] May 27, 2024 08:07 AM CARD. STRESS TEST W/TREADMILL/...: ERIK GALLEGO [id number] -1945 M Exm Date: MAY 27, 2024@08:07 Req Phys: LAURA STEINBERG Loc: DEANNE POD ASBESTOS CLOTH INSPECTOR (Req'g Loc) Img Loc: NUCLEAR MEDICINE Service: [place] [address] THIS IS AN AMENDED REPORT (Case [id number] COMPLETE) CARD. STRESS TEST W/TREADMILL/...(NM Detailed) CPT:50911 Reason for Study: SEE CLINICAL HISTORY Clinical [...] 05, 2024 Date Verified: JUN 05, 2024 Director Stage E-Sig: Report: [facility], [place], [place] STUDY: Treadmill Exercise SPECT Tc-99m myoview [...] performed with tomographic and three-dimensional reconstructions with Abyz NM/CT 640 system. The patient performed treadmill [...] data sets in addition to the conventional cbv-usqyuhestti-esplalifr images. Both filtered back projection and iterative [...] ventricular cavity. 4. SPECT images: Attenuation-corrected and sov-zefmocybfnt-chvetfkgy SPECT images were evaluated. SPECT images demonstrate normal myocardial perfusion. There is a medium size, mild intensity defect located in the rykxy-tr-twqzex inferior myocardium . The defect is fixed [...] Kerri Mena MD, Cardiology Attending /[facility] May 15, 2024 09:57 AM CHEST TWO(2) VIEW PA&LAT: JULIÁNERIKMEGHAN ARMSTRONG [id number] 1945 M Exm Date: MAY 15, 2024@09:57 Req Phys: LAURA STEINBERG Loc: DEANNE PACT PHONE LULU Choq'tito Imtito Loc: [facility] Service: [place] [address] (Case [id number] COMPLETE)CHEST TWO(2) VIEW PA&LAT (RAD Detailed) CPT:97653 Reason for Study: dyspnea Clinical History: Report Status: Verified Date Reported: MAY 17, 2024 Date Verified: MAY 17, 2024 Director Stage E-Sig: Report: CHEST TWO(2) VIEW PA&LAT, 05/15/2024 10:02 AM EST INDICATION: dyspnea COMPARISON: April 16, 2024 Impression: Calcified granuloma right lung apex. No edema or pneumonia. No pleural effusion or pneumothorax. Heart size normal. No acute osseous abnormality. Primary Diagnostic Code: NO ALERT REQUIRED Primary Interpreting Staff: KAILYN STEELE, Staff Physician Verified by table games dealer for KAILYN STEELE /[facility] Encounter Notes: All associated encounter notes This section contains the clinical notes associated to the Encounter. Date/Time Encounter Note(s) Provider Source Jun 10, 2024 08:49 AM ADDENDUM: LOCAL TITLE: Addendum STANDARD TITLE: ADDENDUM DATE OF NOTE: JUN 10, 2024@08:49:23 ENTRY DATE: JUN 10, 2024@08:49:24 AUTHOR: ABELARDO CH EXP COSIGNER: URGENCY: STATUS: COMPLETED Dr. Steinberg, please see previous note. I received records from Dr. Leo's office regarding medication requests. I will send through secure e-mail for your review. Thank you, /peyton/ Abelardo hC PharmD, [facility] Pharmacy Repairer [employer] - [employer] Signed: 06/10/2024 08:50 Receipt Acknowledged By: 06/10/2024 10:23 /peyton/ Laura Steinberg MD Primary Care Physician --- Original Document --- 06/06/24 COMMUNITY CARE - PHARMACY: Pharmacy received prescriptions from outside provider Jose Leo MD with [facility] Cardiology in [place], [place] at [phone]. Medications: 1. Atorvastatin 80mg: one tablet PO daily #30, 5 refills 2. Metoprolol succinate 25mg: one tablet PO daily #30, 5 refills is not approved for [employer] benefits to see this provider, so any prescription requested through the [facility] pharmacy would have to be rewritten at PCP's discretion per dual-care policy. Otherwise, PCP may enter cardiology consult with potential [employer] approval. I faxed records request to [phone] for PCP review. Will await response. /jocy Ch PharmD, [facility] Pharmacy Repairer [employer] - [facility] Signed: 06/06/2024 08:41 ABELARDO CH [facility] Jun 06, 2024 07:54 AM PHARMACY NOTE: LOCAL TITLE: [facility] - PHARMACY STANDARD TITLE: PHARMACY NOTE DATE OF NOTE: JUN 06, 2024@07:54 ENTRY DATE: JUN 06, 2024@07:55:36 AUTHOR: ABELARDO CH EXP COSIGNER: URGENCY: STATUS: COMPLETED [facility] - PHARMACY Has ADDENDA Pharmacy received prescriptions from outside provider Jose Leo MD with [facility] Cardiology in [place], [place] at [phone]. Medications: 1. Atorvastatin 80mg: one tablet PO daily #30, 5 refills 2. Metoprolol succinate 25mg: one tablet PO daily #30, 5 refills [place] is not approved for [employer] benefits to see this provider, so any prescription requested through the [facility] pharmacy would have to be rewritten at PCP's discretion per dual-care policy. Otherwise, PCP may enter cardiology consult with potential [facility] approval. I faxed records request to [phone] for PCP review. Will await response. /jocy Ch PharmD, [facility] Pharmacy Repaire[employer] - [facility] Signed: 06/06/2024 08:41 06/10/2024 ADDENDUM STATUS: COMPLETED Dr. Steinberg, please see previous note. I received records from Dr. Leo's office regarding medication requests. I will send through secure e-mail for your review. Thank you, /peyton/ Abelardo Ch PharmD, [facility] Pharmacy Repairer [employer] - [facility] Signed: 06/10/2024 08:50 Receipt Acknowledged By: * AWAITING SIGNATURE * LAURA STEINBERG ADAM N [place]
--- OUTSIDE RECORDS SUMMARY | 2024-07-24 21:24 | XMS_ITS | Encounter Summary ---
Author Name [facility] [place] [facility] [place] Address [address] [place] [address] Care Team Providers Care [employer] Director Name Role Phone LAURA MCKEON Primary Care [...] PART A Oct 14, 2009 PART A [id number] Alex G[place] PATIENT MEDICARE (WNR) MEDICARE (M) PART B Oct 14, 2009 PART B [id number] Alex [place] PATIENT MEDICARE (WNR) MEDICARE (M) PART A Oct 14, 2009 PART A [id number] Alex [place] PATIENT MEDICARE (WNR) MEDICARE (M) PART B Oct 14, 2009 PART B [id number] Alex [place] PATIENT MEDICARE (WNR) MEDICARE (M) PART A Oct 14, 2009 PART A [id number] Alex GALLEGO PATIENT MEDICARE (WNR) MEDICARE (M) PART B Oct 14, 2009 PART B [id number] Alex G[place] PATIENT Selected Encounter This section includes the information on record at [place] for the Encounter. Date/Time Encounter Type Encounter Description Reason Provider Source Feb 28, 2024 02:30 PM OT EVAL LOW COMPLEX 30 MIN OCCUPATIONAL THERAPY ICD-10-CM M67.441 Ganglion, right hand MANDY RUFF E Encounter Template Text not used by [place] Assessments - Encounter Diagnoses This section includes the primary and secondary diagnoses documented for the Encounter. Date/Time Primary/Secondary Diagnosis Diagnosis Name Provider Source Feb 28, 2024 04:53 PM PRIMARY Ganglion, right hand MEREDITH RUFF [facility] Plan of Treatment: Future Appointments (+ 6 months) and Future Tests (+/- 45 days) The Plan of Treatment section includes future care activities for the patient from all [place] treatmentfacilities. This section includes future appointments and future orders which are active, pending or scheduled. Future Appointments This section includes appointments that were scheduled to occur 6 months from the date of the Encounter, up to a maximum of 20 appointments. The data comes from all [place] treatment facilities. Appointment Date/Time Appointment Type Appointme nt Facility Name Feb 29, 2024 09:20 AM AMBULATORY - [facility]GERY [place] [facility] Mar 04, 2024 09:00 AM [facility]ORY - PS[facility]CHIATRY [facility] Mar 17, 2024 01:00 PM [facility] Mar 18, 2024 08:30 AM [facility] Mar 18, 2024 10:00 AM [facility] Mar 28, 2024 08:00 AM [facility] [facility] Apr 01, 2024 10:00 AM AMBULATORY - PS[facility]CHIATRY [facility] Apr 15, 2024 09:00 AM AM[facility] - [facility]CHIATRY [facility] Apr 16, 2024 11:35 AM [facility] Apr 25, 2024 08:30 AM AM[facility]UL[facility] - SURGERY [place] [facility] Apr 29, 2024 10:00 AM AMBULATORY - MEDICINE [facility] May 06, 2024 10:00 AM [facility]RY [facility] May 07, 2024 10:00 AM AMBULATORY - MEDICINE [facility] May 15, 2024 10:30 AM AMBULATORY - REHAB MEDICIN E [facility] May 20, 2024 08:00 AM [facility]ORY - [facility] May 20, 2024 10:00 AM AMBULATORY - MEDICINE [facility] May 27, 2024 08:00 [facility] Jun 06, 2024 08:00 AM [facility]ULATORY - SURGERY [facility] Jun 10, 2024 08:50 AM AMBULATORY - MEDICINE [facility] Jun 10, 2024 11:00 AM [facility] Lab Results: +/- 30 days [...] Type Comment Feb 14, 2024 10:41 AM [facility] MICROALBUMIN/CREAT RATIO URINE Specimen Type: URINE No comment entered. Ordering Provider: LAURA MCKEON Report Released Date/Time: Feb 14, 2024 09:03 AM Reporting Lab: [address] [address] Performing Lab: [address] [address] CREATININE 133.0 mg/dL MICROALBUMIN QUANT 5.8 mg/L 0.0-30.0 .MICROALBUMIN/CREA RATIO 4.4 ug/mg{creat} Feb 14, 2024 10:41 AM [facility] DRUG SCREEN EXPANDED IN-HOUSE URINE Specimen [...] Feb 14, 2024 09:03 AM Reporting Lab: [address] [address] Performing Lab: [address] [address] TETRAHYDROCANNABINOL SCREEN NEG Cuto ff < 50 [...] < 1 Feb 14, 2024 10:19 AM [facility] LIPID PROFILE PLASMA Specimen Type: PLASM [...] Feb 14, 2024 09:03 AM Reporting Lab: [facility] [address] [facility] [address] Performing Lab: [address] [address] CHOLESTEROL 161 mg/dL 0-199 TRIGLYCERIDE 84 mg/dL 0-149 HDL CHOLESTEROL 54 mg/dL 40-69 DIRECT LDL CHOL. 95 mg/dL 0-100 Feb 14, 2024 10:19 AM [facility] GLYCOHEMOGLOBIN BLOOD Specimen Type: BLOOD Comment: [facility] guidelines for A1c interpretation: Glycemic control targets are based on Shared Decision Making between clinicians and patients. Criteria used to establish an A1c target recommendation can be found at https://www.al.gov/qualityandpatientsafety/ and include the use of result accuracy [...] 8.73 and 9.27. Ref: https://ngsp.org/CAPdata.asp. The in-house [employer]Patient[employer] D-100 analyzer has a historical CV <= 2%. Contact the laboratory for further performance characteristics of this assay. Ordering Provider: LAURA MCKEON Report Released Date/Time: Feb 14, 2024 09:03 AM Reporting Lab: [address] [address] Performing Lab: [address] [address] GLYCOHEMOGLOBIN 6.0 4.4-6.4 Feb 14, 2024 10:19 AM [facility] PANEL 5 PLASMA Specimen Type: PLASM [...] Feb 14, 2024 09:03 AM Reporting Lab: [address] [address] Performing Lab: [address] [address] CREATININE 1.38 mg/dL H 0.72-1.25 UREA NITROGEN [...] (CKD-EPI) 52 Feb 14, 2024 10:19 AM [facility] PLASMA Specimen Type: PLASM A Comment: Estimated [...] Feb 14, 2024 09:03 AM Reporting Lab: [address] [address] Performing Lab: [address] [address] TSH 1.1076 m[IU]/mL 0.3500-4.9400 Feb 14, 2024 10:19 AM [facility] CBC/PLT BLOOD Specimen Type: BLOOD No comment entered. Ordering Provider: LAURA MCKEON Report Released Date/Time: Feb 14, 2024 09:03 AM Reporting Lab: [address] [address] Performing Lab: [address] [address] WBC 6.7 10*3/uL 5.0-10.0 RBC 5.17 10*6/uL 4.6-6.2 HGB 15.8 g/dL 14.0-18.0 HCT 47.1 42.0-52.0 MCV 91.1 fL 80.0-94.0 MCH 30.6 pg 27.0-31.0 MCHC 33.5 g/dL 32.0-36.0 PLT 257 10*3/uL 150-450 MPV 10.5 fL 9.0-13.1 RDW 14.4 11.0-16.0 NRBC 0.0 0.0-0.0 Feb 14, 2024 10:19 AM [facility] B12 VITAMIN PLASMA Specimen Type: [...] Feb 14, 2024 09:03 AM Reporting Lab: [address] [address] Performing Lab: [address] [address] B12 VITAMIN 761 pg/mL 213-816 Feb 14, 2024 10:19 AM [facility] 25-OH VITAMIN D SERUM Specime n Type: [...] Feb 14, 2024 09:03 AM Reporting Lab: [address] [address] Performing Lab: [address] [address] 25-OH VITAMIN D 42.5 ng/mL 20.0-50.0 Jan 31, 2024 11:09 AM [facility] GLUCOSE-HAND MONITOR CAPILLARY Specime n Type: CAPILLARY Comment: $ Test performed by: [id number] Meter #: [id number] Ordering Provider: PELON CHEUNG Report Released Date/Time: Feb 04, 2024 07:19 AM Reporting Lab: [address] [address] Performing Lab: [address] [address] GLUCOSE-HAND MONITOR 125 mg/dL H 71-99 Pathology [...] ENTRY DATE: FEB 05, 2024@15:20:14 AUTHOR: ROSS WATERMAN COSIGNER: URGENCY: STATUS: COMPLETED $APHDR Reporting Lab: [facility] [CLIA# [id number]] [address] [place] [address] - - - - - - - [...] submitted in one cassette. CPT CODE - 84874 MICROSCOPIC EXAM/DIAGNOSIS: Right long finger cyst, excision: -Findings consistent with digital mucous cyst. /es/ Ross Waterman MD Pathologist Signed Feb 05, 2024@15:20 Performing Laboratory: Surgical Pathology Report Performed By: [facility] [IA# [id number]] [address] [place] [phone] $FTR - - - - - - - - - - - - - - - - - - - - - - - - - - - - - - - - - - - - - - - - (End of report) ROSS W[facility]MAN [facility] Date Feb 05, 2024 - - - - - - - - - - - - - - - - - - - - - - - - - - - - - - - - - - - - - - - - ERIK GALLEGO STANDARD FORM 515 ID:[id number] SEX:M :1945 AGE: 78 LOC:PATH PCP: Laura Mckeon MD /[place]/ Ross Waterman MD Pathologist Signed: 02/05/2024 15:20 ROSS WATERMAN[facility] Jan 31, 2024 12:13 PM LR SURGICAL PATHOL OGY REPORT: LOCAL TITLE: LR SURGICAL PATHOLOGY REPORT DATE OF NOTE: JAN 31, 2024@12:13:13 ENTRY DATE: JAN 31, 2024@12:13:13 AUTHOR: JUDY SIGALA EXP COSIGNER: URGENCY: STATUS: COMPLETED $APHDR Reporting Lab: [facility] [CLIA# [id number]] [address] [place] [address] - - - - - - - [...] MOHS EXCISION BIOPSY ACCESSION NO. [id number] RULE OUT SQUAMOUS CELL CARCINOMA LEFT PREAURICULAR [...] CELL CARCINOMA LEFT PREAURICULAR CHEEK. CPT CODE: 02547 I ACTED BOTH THE SURGEON AND THE PATHOLOGIST FOR THIS CASE. PLEASE SEE CORRESPONDING MOHS NOTE IN CPRS AND MOHS MAP SCANNED TO [employer] /es/ JUDY SIGALA Chief, Dermatology Signed Jan 31, 2024@12:13 Performing Laboratory: Surgical Pathology Report Performed By: [facility] [CLIA# [id number]] [address] [place] [address] $FTR - - - - - - - - - - - - - - - - - - - - - - - - - - - - - - - - - - - - - - - - (End of report) JUDY SIGALA MD [facility] Date Jan 22, 2024 - - - - - - - - - - - - - - - - - - - - - - - - - - - - - - - - - - - - - - - - SANAMONIQUEERIK SEN STANDARD FORM 515 ID:[id number] SEX:M :1945 AGE: 78 LOC:DERM PCP: Laura Mckeon MD /[place]/ JUYD SIGALA Chief, Dermatology Signed: 01/31/2024 12:13 JUDY SIGALA-D [facility] Encounter Notes: All associated encounter notes This section contains the clinical notes associated to the Encounter. Date/Time Encounter Note(s) Provider Source Feb 28, 2024 04:39 PM OCCUPATIONAL THERA PY CONSULT: LOCAL TITLE: OCCUPATIONAL THERAPY INITIAL & PLAN OF CARE CONSULT STANDARD TITLE: OCCUPATIONAL THERAPY CONSULT DATE OF NOTE: FEB 28, 2024@16:39 ENTRY DATE: FEB 28, 2024@16:39:12 AUTHOR: SCOTT RUFF EXP COSIGNER: URGENCY: STATUS: COMPLETED Start of Care Date: Feb Type: OT Diagnosis: Ganglion, right hand Equipment issue only Reason for request: Silicone finger cot for right long finger. Time: 8 min. ([id number]) S: [place] arrived for silicone finger cot. O: presents with large fingers. He was fitted with a L/XL slippos finger sleeve. He was provided with 5. Instructed to wear for 6 hours. reported he was to wear it at night. Agreed with that during sleep it will give him the 6 hours needed. He can reuse the sleeves until the inner gel coating has disappeared. He may also wash sleeves. A: stated understanding of sleeve and stated intent to wear as directed. P: No other needs other than equipment issue. /[place]/ MANDY HEALANDER, OT/L Occupational Therapist Signed: 02/28/2024 16:53 SCOTT RUFF[facility]
--- OUTSIDE RECORDS SUMMARY | 2024-07-24 21:24 | XMS_ITS ---
Author Name [facility] Address [address] [place] [address] Care Team Providers Care Retail District Manager Name Role Phone LAURA STEINBERG Primary [...] PART A Oct 14, 2009 PART A [id number] Alex GALLEGO PATIENT MEDICARE (WNR) MEDICARE (M) PART B Oct 14, 2009 PART B [id number] Alex GALLEGO PATIENT MEDICARE (WNR) MEDICARE (M) PART B Oct 14, 2009 PART B [id number] Alex GALLEGO PATIENT MEDICARE (WNR) MEDICARE (M) PART A Oct 14, 2009 PART A [id number] Alex GALLEGO PATIENT MEDICARE (WNR) MEDICARE (M) PART B Oct 14, 2009 PART B [id number] Alex GALLEGO PATIENT MEDICARE (WNR) MEDICARE (M) PART A Oct 14, 2009 PART A [id number] Alex GALLEGO PATIENT Selected Encounter This section includes the information on record at [place] for the Encounter. Date/Time Encounter Type Encounter Description Reason Provider Source Jun 24, 2024 08:00 AM DENTURES ADJUST PART MANDBL DENTAL ICD-10-CM K08.431 Partial loss of teeth due to caries, class I BEV MCLAUGHLIN Jennifer Encounter Template Text not used by [place] Assessments - Encounter Diagnoses This section includes the primary and secondary diagnoses documented for the Encounter. Date/Time Primary/Secondary Diagnosis Diagnosis Name Provider Source Jun 24, 2024 10:22 AM PRIMARY Partial loss of teeth due to caries, class I BEV MCLAUGHLIN [facility] Plan of Treatment: Future Appointments (+ 6 months) and Future Tests (+/- 45 days) The Plan of Treatment section includes future care activities for the patient [facility] This section includes future appointments and future orders which are active, pending or scheduled. Future Appointments This section includes appointments that were scheduled to occur 6 months from the date of the Encounter, up to a maximum of 20 appointments. The data comes from all [place] treatment facilities. Appointment Date/Time Appointment Type Appointme nt Facility Name Jun 30, 2024 11:00 AM AMBULATORY - NONE [facility] Jun 30, 2024 03:00 PM AMBULATORY - MEDICINE [facility] Jul 01, 2024 09:00 AM AMBULATORY - MEDICINE [facility] Jul 07, 2024 10:00 AM AMBULATORY - PSYCHIATRY [facility] Jul 08, 2024 10:00 AM [facility] Jul 10, 2024 08:30 AM [facility] Jul 24, 2024 03:00 PM AMBULATORY - PSYCHIATRY [facility] Aug 05, 2024 09:00 AM AMBULATORY - MEDICINE [facility] Aug 11, 2024 10:00 AM AMBULATORY - PSYCHIATRY [facility] Aug 12, 2024 09:00 AM AMBULATORY - MEDICINE [facility] August 18, 2024 09:00 AM AMBULATORY - SURGERY LARRY HOLLOWAY [facility] September 02, 2024 08:20 AM AMBULATORY - SURGERY L[facility]Y [facility] Oct 01, 2024 09:00 AM AMBULATORY - NONE [facility] Oct 30, 2024 09:00 AM AMBULATORY - PSYCHIATRY [facility] NICHOLAS [facility] Dec 09, 2024 08:00 AM AMBULATORY - NONE [facility] Lab Results: +/- 30 days of the [...] Type Comment Jun 30, 2024 03:27 PM [facility] BNP (STODDARD) PLASMA Specimen Type: PLASMA Comment: BNP results less than or equal to 100 pg/ml are commissary representative of normal values in patients without CHF. BNP results greater than 100 pg/ml are considered abnormal and suggestive of CHF. Higher BNP concentrations in the first 72 hours after Acute Coronary Syndrome are associated with an increased risk of , myocardial infarction and CHF. Ordering Provider: SACHI SAINZ Report Released Date/Time: Jun 30, 2024 03:21 PM Reporting Lab: [address] [address] Performing Lab: [address] [address] BNP (STODDARD) 22 pg/mL 0-100 Jun 30, 2024 03:27 PM [facility] PANEL 1 PLASMA Specimen Type: PLASM [...] Jun 30, 2024 03:21 PM Reporting Lab: [address] [address] Performing Lab: [address] [address] CREATININE 1.43 mg/dL H 0.72-1.25 UREA NITROGEN 22 mg/dL 9-25 GLUCOSE 164 mg/dL H 74-100 SODIUM 139 mmol/L 136-145 POTASSIUM 3.7 mmol/L 3.5-5.1 CHLORIDE 102 mmol/L 98-107 CO2 27 mmol/L 22-29 CALCIUM 9.8 mg/dL 8.4-10.2 ANION GAP 10 meq/L 3-19 eGFR (CKD-EPI) 50 Jun 30, 2024 03:27 PM [facility] CBC/PLT BLOOD Specimen Type: BLOOD No comment entered. Ordering Provider: SACHI SAINZ Report Released Date/Time: Jun 30, 2024 03:21 PM Reporting Lab: [facility] [address] [facility] [address] Performing Lab: [facility] [address] [facility] [address] WBC 7.2 10*3/uL 5.0-10.0 RBC 4.85 10*6/uL 4.6-6.2 HGB 14.7 g/dL 14.0-18.0 HCT 43.8 42.0-52.0 MCV 90.3 fL 80.0-94.0 MCH 30.3 pg 27.0-31.0 MCHC 33.6 g/dL 32.0-36.0 PLT 235 10*3/uL 150-450 MPV 10.6 fL 9.0-13.1 RDW 14.8 11.0-16.0 NRBC 0.0 0.0-0.0 Social History: Smoking Status (Most current) and Tobacco Use (All prior to encounter date) This section includes the most current, and the historical, smoking and tobacco- related health factors from the [place] facility where the Encounter took place. Current Smoking Status This section includes the most current smoking, or tobacco-related health factor, from the [place] facility where the Encounter took place. Date/Time Current Smoking Status Comment Edis baker May 07, 2024 10:00 AM VA-TOBACCO NEVER U SED CIGARETTES [facility] Tobacco Use History This section includes a history of the smoking, or tobacco-related health factors, that were collected on or before the date of the Encounter. The data comes from the [place] facility where the Encounter took place. Date/Time Smoking Status/Tobacco Use Comment Ramu harrington May 07, 2024 10:00 AM VA-TOBACCO NEVER U SED OTHER TYPE [facility] Feb 14, 2024 08:30 AM VA-TOBACCO FORMER USER [facility] Feb 14, 2024 08:30 AM VA-TOBACCO QUIT 15 YRS OR MORE [facility] Jan 10, 2023 11:00 AM VA-TOBACCO NEVER USED [facility] Dec 09, 2021 08:00 AM VA-TOBACCO NEVER USED [facility] Dec 10, 2020 09:30 AM VA-TOBACCO NEVER USED [facility] May 13, 2019 09:09 AM VA-TOBACCO NEVER USED [facility] Apr 03, 2018 09:45 AM VA-TOBACCO NEVER USED [facility] May 07, 2017 10:31 AM V9 LIFETIME NON-USER OF TOBACCO [facility] Apr 06, 2016 10:18 AM V9 LIFETIME NON-USER OF TOBACCO [facility] Jan 26, 2015 08:52 AM V9 LIFETIME NON-USER OF TOBACCO [facility] August 18, 2013 08:27 AM V9 LIFETIME NON-USER OF TOBACCO [facility] Sep 18, 2012 08:39 AM V9 LIFETIME NON-USER OF TOBACCO [facility] Jan 19, 2012 10:42 AM V9 LIFETIME NON-USER OF TOBACCO [facility] Jan 19, 2012 10:42 AM V9 TOBACCO OFFERED [facility] September 13, 2010 10:28 AM V9 LIFETIME NON-USER OF TOBACCO [facility] September 13, 2010 10:28 AM V9 TOBACCO OFFERED [facility] Sep 21, 2006 12:59 PM V9 LIFETIME NON-USER OF TOBACCO [facility] Jan 29, 2006 07:52 AM HF V9 LIFETIME NON-SMOKER [facility] Dec 30, 2004 08:05 AM HF V9 LIFETIME NON-SMOKER [facility] Dec 23, 2003 02:58 PM HF V9 LIFETIME NON-SMOKER [facility] Radiology Reports: +/- 30 days [...] the Encounter. The data comes from all [facility] facilities. Date/Time Radiology Report Provider Source May 29, 2024 05:[id number] PERFORMED BY OTHER FACILITY: ERIK GALLEGO [id number] -1945 M Exm Date: MAY 29, 2024@17:13 Req Phys: LAURA STEINBERG Loc: [facility] PACT LULU 1-2 (Req'g Lo Img Loc: OUTSIDE2 LD CT Service: Unknown (Case [id number] COMPLETE) [id number] CT PERFORMED BY OTHER FACIL(CT Detailed) CPT:67009 Reason for Study: Exam imported from outside Clinical History: Original Data for Imported Study Patient Name: ERIK GALLEGO Date: 1945 Sex: M Study Date: 05/29/24 Study Time: 05:13:55 Study Description: CT CHEST PE/ABD/PEL W Referring Physician: TAMMI GEE Series 1: 2 CT files, description: EDUCATION SITE MANAGER Series 2: 216 CT files, description: 5.0mm [...] Diagnostic Code: VERIFIED BY: / *ELECTRONICALLY FILED* DANNY [facility] May 27, 2024 08:07 AM MYOVIEW(1): ERIK GALLEGO [id number] -1945 M Exm Date: MAY 27, 2024@08:07 Req Phys: LAURA STEINBERG Loc: DEANNE POD PBX MECHANIC (Req'g Loc) Img Loc: NUCLEAR MEDICINE Service: [place] [address] (Case [id number] COMPLETE) MYOVIEW(1) (NM Detailed) CPT:A9502 Reason for [...] 27, 2024 Date Verified: MAY 27, 2024 Computer Numerical Control Grinder E-Sig: Report: STUDY: GXT REPORT: Patient exercised [...] Staff: ANIA ANDRADE APRN, Cardiology Verified by pharmacy technician instructor for ANIA ANDRADE /ANIA ESPINOZA-D [facility] May 27, 2024 08:07 AM 31363(D) MYOCARDIAL SPECT(MULTIPLE): ERIK GALLEGO NATHANIEL [id number] -1945 M Exm Date: MAY 27, 2024@08:07 Req Phys: LAURA STEINBERG Pat Loc: [facility] POD PBX MECHANIC (Req'g Loc) Img Loc: NUCLEAR MEDICINE Service: [place] [address] THIS IS AN AMENDED REPORT (Case [id number] COMPLETE) 89770(D) MYOCARDIAL SPECT(MULTIPL(NM Detailed) CPT:42739 Proc Modifiers : GXT Reason for Study: [...] 05, 2024 Date Verified: JUN 05, 2024 Computer Numerical Control Grinder E-Sig: Report: [facility], [place], [place] STUDY: Treadmill Exercise SPECT Tc-99m myoview [...] performed with tomographic and three-dimensional reconstructions with [employer] NM/CT 640 system. The patient performed treadmill [...] data sets in addition to the conventional eko-ywgagwgccaj-qneulfscg images. Both filtered back projection and iterative [...] ventricular cavity. 4. SPECT images: Attenuation-corrected and ssb-ymwvlzfbexx-pirbwdtmd SPECT images were evaluated. SPECT images demonstrate normal myocardial perfusion. There is a medium size, mild intensity defect located in the yftgq-tv-qvsnjy inferior myocardium . The defect is fixed [...] BY: Kerri Mena MD, Cardiology Attending /[facility] May 27, 2024 08:07 AM TC-99M FROM NON-HIGHLY ENRICHED URANIUM SOURCE: ERIK GALLEGO [id number] 1945 M Ex Date: MAY 27, 2024@08:07 Req Phys: LAURA STEINBERG Loc: [facility] POD PBX MECHANIC (Req'g Loc) Img Loc: NUCLEAR MEDICINE Service: [place] [address] THIS IS AN AMENDED REPORT (Case [id number] COMPLETE) TC-99M FROM NON-HIGHLY ENRICHED U(NM Detailed) [...] 05, 2024 Date Verified: JUN 05, 2024 Computer Numerical Control Grinder E-Sig: Report: [facility], [place], [place] STUDY: Treadmill Exercise SPECT Tc-99m myoview [...] performed with tomographic and three-dimensional reconstructions with [employer] NM/CT 640 system. The patient performed treadmill [...] data sets in addition to the conventional cxp-flmablmoffe-fdyydglvu images. Both filtered back projection and iterative [...] ventricular cavity. 4. SPECT images: Attenuation-corrected and uqw-phoyidpwync-nvvajxgat SPECT images were evaluated. SPECT images demonstrate normal myocardial perfusion. There is a medium size, mild intensity defect located in the gcuht-ni-galxer inferior myocardium . The defect is fixed [...] BY: Kerri Mena MD, Cardiology Attending /[facility] May 27, 2024 08:07 AM MYOVIEW(2): ERIK GALLEGO NATHANIEL [id number] -1945 M Ex Date: MAY 27, 2024@08:07 Req Phys: LAURA STEINBERG Loc: DEANNE POD PBX MECHANIC (Req'g Loc) Img Loc: NUCLEAR MEDICINE Service: [place] [address] THIS IS AN AMENDED REPORT (Case [id number] COMPLETE) MYOVIEW(2) (NM Detailed) CPT:A9502 Reason for [...] 05, 2024 Date Verified: JUN 05, 2024 Computer Numerical Control Grinder E-Sig: Report: [facility], [place], [place] STUDY: Treadmill Exercise SPECT Tc-99m myoview [...] performed with tomographic and three-dimensional reconstructions with [employer] NM/CT 640 system. The patient performed treadmill [...] data sets in addition to the conventional jrf-gjwqdrfrarx-bwyegpavq images. Both filtered back projection and iterative [...] ventricular cavity. 4. SPECT images: Attenuation-corrected and yxq-dklzjimzint-mxjrfakfv SPECT images were evaluated. SPECT images demonstrate normal myocardial perfusion. There is a medium size, mild intensity defect located in the ljymm-ie-lxmatj inferior myocardium . The defect is fixed [...] Kerri Mena MD, Cardiology Attending /[facility] May 27, 2024 08:07 AM CARD. STRESS TEST W/TREADMILL/...: ERIK GALLEGO [id number] -1945 M Ex Date: MAY 27, 2024@08:07 Req Phys: LAURA STEINBERG Pat Loc: [facility] POD PBX MECHANIC (Req'g Loc) Img Loc: NUCLEAR MEDICINE Service: [place] [address] THIS IS AN AMENDED REPORT (Case [id number] COMPLETE) CARD. STRESS TEST W/TREADMILL/...(NM Detailed) CPT:47077 Reason for Study: SEE CLINICAL HISTORY Clinical [...] 05, 2024 Date Verified: JUN 05, 2024 Computer Numerical Control Grinder E-Sig: Report: [facility], [place], [place] STUDY: Treadmill Exercise SPECT Tc-99m myoview [...] performed with tomographic and three-dimensional reconstructions with [employer] NM/CT 640 system. The patient performed treadmill [...] data sets in addition to the conventional qnm-mrggqfwdjkv-szvpmomnv images. Both filtered back projection and iterative [...] ventricular cavity. 4. SPECT images: Attenuation-corrected and hla-aggmrsqjpdu-kzguotwrx SPECT images were evaluated. SPECT images demonstrate normal myocardial perfusion. There is a medium size, mild intensity defect located in the ltyvq-ui-irujbx inferior myocardium . The defect is fixed [...] Kerri Mena MD, Cardiology Attending /[facility] Pathology Reports: +/- 30 days of the [...] the Encounter. The data comes from all [place] treatment facilities. Date/Time Pathology Report Provider Source Jul 10, 2024 09:41 AM LR SURGICAL PATHOL KIP REPORT: LOCAL TITLE: LR SURGICAL PATHOLOGY REPORT DATE OF NOTE: JUL 10, 2024@09:41:15 ENTRY DATE: JUL 10, 2024@09:41:15 AUTHOR: JOE LEUNG COSIGNER: URGENCY: STATUS: COMPLETED $APHDR Reporting Lab: [facility] [CLIA# [id number]] [address] [place] [address] - - - - - - - [...] - - PATHOLOGY REPORT Accession No. [id number] - - - - - - - [...] - - PATHOLOGY REPORT Accession No. [id number] - - - - - - - - - - - - - - - - - - - - - - - - - - - - - - - - - - - - - - - - Pathology Resident: JOE RICK The specimen is received in formalin labeled shave below left earlobe and consists of an unoriented, yyk-lyen-islfxff, yellow/white shave of skin measuring 0.5 x 0.4 x 0.2 cm. A rough papule is identified over the skin surface measuring 0.4 x 0.3 cm. The cut surface is yellow/white and grossly unremarkable. The cut surface is inked blue. The specimen is bisected to reveal a white solid interior. The specimen is submitted entirely in a single cassette. CPT CODE - 67985 MICROSCOPIC EXAM/DIAGNOSIS: Skin, below left earlobe, shave biopsy: -Squamous cell carcinoma in-situ. /[place]/ JOE LEUNG pathologist Signed Jul 10, 2024@09:41 Performing Laboratory: Surgical Pathology Report Performed By: [facility] [CLIA# [id number]] [address] [place] [id number] $FTR - - - - - - - - - - - - - - - - - - - - - - - - - - - - - - - - - - - - - - - - (End of report) JOE LEUNG MD [facility] Date Jul 10, 2024 - - - - - - - - - - - - - - - - - - - - - - - - - - - - - - - - - - - - - - - - ERIK GALLEGO STANDARD FORM 515 ID:[id number] SEX:M :1945 AGE: 78 LOC:PATH PCP: Laura Steinberg MD /[place]/ JOE LEUNG pathologist Signed: 07/10/2024 09:41 [facility] LEUN[facility] Encounter Notes: All associated encounter notes This section contains the clinical notes associated to the Encounter. Date/Time Encounter Note(s) Provider Source Jun 24, 2024 10:05 AM DENTISTRY NOTE: LOCAL TITLE: DENTAL PROGRESS NOTE STANDARD TITLE: DENTISTRY NOTE DATE OF NOTE: JUN 24, 2024@10:05 ENTRY DATE: JUN 24, 2024@10:22:04 AUTHOR: BEV MCLAUGHLIN EXP COSIGNER: URGENCY: STATUS: COMPLETED Patient Name: ERIK GALLEGO, : 1945, Age: 78 Visit: S: Jun 24, 2024@08:00 [facility] LD. Primary PCE Diagnosis: K08.431 (Partial loss of teeth due to caries, class I). Dental Category: 15-OPC, Class IV. Treatment Status: Maintenance. Completed Care: (D5640) REPLACE PART DENTURE TEETH. Tooth: 20. DX: K08.431 Partial Loss of Teeth due to Caries, Class I (D5640) REPLACE PART DENTURE TEETH. Tooth: 28. DX: K08.431 Partial Loss of Teeth due to Caries, Class I (D5422) DENTURES ADJUST PART MANDBL. DX: K08.431 Partial Loss of Teeth due to Caries, Class I - - - - - - - - - - - - - - - - - - - - - - - - - - - - - - Active Allergies: LISINOPRIL FOSINOPRIL ACETAMINOPHEN/OXYCODONE [PERCOCET] Active Problems: STINT 05/29/24-WILL FOLLOW 6 MONTH PROTOCOL FOR ELECTIVE DENTAL CARE REGARDING SUBMUCOUSAL WORK. WILL PLAN TO MOVE FORWARD WITH LOWER PARTIAL REPLACEMENT IN THE INTERIM Coronary artery disease ([facility] [id number]) Medication release carlee contreras in LAD place at [facility] placed May 29, 2024 Pulmonary hypertension ([facility] [id number]) Exposure to potentially hazardous substance ([facility] [id number]) Obstructive sleep apnea ([facility] 12939275) Pseudophakia ([facility] 79804201) Chronic post-traumatic stress disorder ([facility] [id number]) Polyp of colon ([facility] 77635186) Vitamin B12 deficiency (non anemic) ([facility] 49008382) Lumbar Radiculopathy (ICD-9-CM 724.4) Sensorineural Hearing Loss (ICD-9-CM 389.10) Neoplasm of uncertain behavior of trachea, bronchus, 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) Osteoarthritis (SCT 237743352) Gastro-esophageal reflux disease with esophagitis ([facility] 359243436) Allergic rhinitis (ICD-9-CM 477.9) Hypertension ([facility]CT 66947621) Diabetes mellitus ([facility] 62936041) NEPHROLITHIASIS (ICD-9-CM 592.0) Gout (ICD-9-CM 274.9) ---- Outpatient Medication ---- MULTIVIT/OPHTH AREDS2/LUTE/ZEAX CAP/TAB - (ACTIVE) MIRTAZAPINE 15MG TAB - (ACTIVE) PRAZOSIN HCL 5MG CAP - (ACTIVE) GABAPENTIN 300MG CAP - (ACTIVE) LIDOCAINE 5% 5IN X 6IN PATCH - (ACTIVE) MUPIROCIN 2% OINT - (ACTIVE) TRIAMCINOLONE ACETONIDE 0.1% OINT - (ACTIVE) ALOH 160/MG CARB 105MG CHEW TAB - (ACTIVE) AMLODIPINE BESYLATE 2.5MG TAB - (ACTIVE) LOSARTAN 100MG TAB - (ACTIVE) MAGNESIUM OXIDE 420MG TAB - (ACTIVE) PRAZOSIN HCL 1MG CAP - (ACTIVE) CLOTRIMAZOLE 1% TOP SOLN - (ACTIVE) TABLET CUTTER - (ACTIVE) FUROSEMIDE 20MG TAB - (ACTIVE) PANTOPRAZOLE NA 40MG EC TAB - (ACTIVE) ASPIRIN 81MG EC TAB - (ACTIVE/SUSP) CLOPIDOGREL BISULFATE 75MG TAB - (ACTIVE/SUSP) ATORVASTATIN CALCIUM 80MG TAB - (ACTIVE/SUSP) METOPROLOL SUCCINATE 50MG SA TAB - (ACTIVE/SUSP) SERTRALINE HCL 100MG TAB - (ACTIVE/SUSP) ACCU-CHEK GUIDE (GLUCOSE) TEST STRIP - (ACTIVE/SUSP) CHOLECALCIF 25MCG (D3-1,000UNIT) TAB - (ACTIVE/SUSP) CYANOCOBALAMIN 1000MCG TAB - (ACTIVE/SUSP) DICLOFENAC NA 1% TOP GEL - (ACTIVE/SUSP) FLUTICASONE PROP 50MCG 120D NASAL INHL - (ACTIVE/SUSP) LORATADINE 10MG TAB - (ACTIVE/SUSP) METFORMIN HCL 1000MG TAB - (ACTIVE/SUSP) PIOGLITAZONE HCL 30MG TAB - (ACTIVE/SUSP) Patient presents to clinic for: continuing care of maxillary crowns and impressions to open bite. Just learned last evening that he had medication releasing stint placed in his LAD 05/29/24. Treatment and appointment modified today to meet 6 month placement protocol for dental care. Will proceed with making of new lower RPD as his has gotten warped. Patient having pain today? no If yes, what is the dental pain level? 1 out of 10. Reviewed medical history, current medications, problem list, and allergies with patient/significant other. Patient/significant other reports patient taking ALL VA, Non VA & OTC medications as listed on CPRS medication tab outpatient section. Risks, benefits, alternatives to treatment discussed with patient/significant other. Patient/significant other verbally agrees to proposed treatment plan and all questions answered. Obtained verbal and written consent (if necessary) for procedure from patient/significant other. TREATMENT PROCEDURE PERFORMED: Tighten clasp on mandibular partial. Added acrylic to build 20,28 in occlusion to get more posterior bite and polished. New lower model taken for metal RPD, opposing, and go by of his partial in place to mail with case for new one. Shade B3 on teeth to blend with new max crowns and existing martha dentition. pt is now in Cardiac Rehab and states he has been doing very well and feeling much better. He was getting winded just taking a shower. nv: August 11, 1hr, [place] lower metal RPD V&C, bite, B3 12/09, 3hr, [place] P&S remaining maxillary to open bite with crowns /es/ BEV MCLAUGHLIN DMD Signed: 06/24/2024 10:22 BEV MCLAUGHLIN [facility]
--- OUTSIDE RECORDS SUMMARY | 2024-07-24 21:24 | XMS_ITS | Encounter Summary ---
Author Name [facility] Organization [facility] [place] Address [address] [place] [id number] Care Team Providers Care Client Service Supervisor Name Role Phone LAURA STEINBERG Primary Care [...] PART A Oct 14, 2009 PART A [id number] Alex MISHRA PATIENT MEDICARE (WNR) MEDICARE (M) PART B Oct 14, 2009 PART B [id number] Alex MISHRA PATIENT MEDICARE (WNR) MEDICARE (M) PART A Oct 14, 2009 PART A [id number] Alex MISHRA PATIENT MEDICARE (WNR) MEDICARE (M) PART B Oct 14, 2009 PART B [id number] [phone] Alex MISHRA PATIENT MEDICARE (WNR) MEDICARE (M) PART A Oct 14, 2009 PART A [id number] Alex MISHRA PATIENT MEDICARE (WNR) MEDICARE (M) PART B Oct 14, 2009 PART B [id number] Alex MISHRA PATIENT Selected Encounter This section includes the information on record at [place] for the Encounter. Date/Time Encounter Type Encounter Description Reason Provider Source Jul 24, 2024 06:39 AM Outpatient Encounter CLINICAL PHARMACY BOOM CANTU Encounter Template Text not used by MS Plan of Treatment: Future Appointments (+ 6 months) and Future Tests (+/- 45 days) The Plan of Treatment section includes future care activities for the patient from all [place] treatmentfacilst. [facility]. This section includes future appointments and future orders which are active, pending or scheduled. Future Appointments This section includes appointments that were scheduled to occur 6 months from the date of the Encounter, up to a maximum of 20 appointments. The data comes from all MS treatment facilities. Appointment Date/Time Appointment Type Appointme nt Facility Name Aug 05, 2024 09:00 AM AMBULATORY - [facility] Aug 11, 2024 10:00 AM AMBULATORY - PSYCHIATRY [facility] Aug 12, 2024 09:00 AM AMBULATORY - MEDICINE [facility] August 18, 2024 09:00 AM [facility] September 02, 2024 08:20 AM [facility] Oct 01, 2024 09:00 AM AMBULATORY - NONE [facility] Oct 30, 2024 09:00 AM AMBULATORY - PS[facility]CHIATRY [facility] Dec 09, 2024 08:00 AM [facility] Dec 31, 2024 08:30 AM AMBULATORY - MEDICINE [facility] Jan 16, 2025 08:00 AM AMBULATORY - NONE [facility] Lab Results: +/- 30 days of the encounter This section includes the Chemistry and Hematology Lab Results on record with MS for the patient. Radiology Reports and Pathology Reports are provided separately, in subsequent sections. Lab Results This section contains the Chemistry/Hematology Results that were resulted 30 days before or 30 daysafter the date of the Encounter. Date/Time Source Result Type Result - Unit Interpretation Reference Range Specimen Type Comment Jun 30, 2024 03:27 PM [facility] BNP (STODDARD) PLASMA Specimen Type: PLASMA Comment: BNP results less than or equal to 100 pg/ml are food products sales representative of normal values in patients without CHF. BNP results greater than 100 pg/ml are considered abnormal and suggestive of CHF. Higher BNP concentrations in the first 72 hours after Acute Coronary Syndrome are associated with an increased risk of , myocardial infarction and CHF. Ordering Provider: SACHI SAINZ Report Released Date/Time: Jun 30, 2024 03:21 PM Reporting Lab: [facility] [address] [facility] [address] Performing Lab: [address] [address] BNP (STODDARD) 22 pg/mL 0-100 Jun 30, 2024 03:27 PM [facility] PANEL 1 PLASMA Specimen Type: PLASM [...] Jun 30, 2024 03:21 PM Reporting Lab: [address] [address] Performing Lab: [place] [id number] CREATININE 1.43 mg/dL H 0.72-1.25 UREA NITROGEN 22 mg/dL 9-25 GLUCOSE 164 mg/dL H 74-100 SODIUM 139 mmol/L 136-145 POTASSIUM 3.7 mmol/L 3.5-5.1 CHLORIDE 102 mmol/L 98-107 CO2 27 mmol/L 22-29 CALCIUM 9.8 mg/dL 8.4-10.2 ANION GAP 10 meq/L 3-19 eGFR (CKD-EPI) 50 Jun 30, 2024 03:27 PM [facility] CBC/PLT BLOOD Specimen Type: BLOOD No comment entered. Ordering Provider: SACHI SAINZ Report Released Date/Time: Jun 30, 2024 03:21 PM Reporting Lab: [address] [address] Performing Lab: [place] [id number] WBC 7.2 10*3/uL 5.0-10.0 RBC 4.85 10*6/uL [...] and tobacco- related health factors from the MS facility where the Encounter took place. Current Smoking Status This section includes the most current smoking, or tobacco-related health factor, from the MS facility where the Encounter took place. Date/Time Current Smoking Status Comment Edis baker May 07, 2024 10:00 AM VA-TOBACCO NEVER U SED CIGARETTES [facility] Tobacco Use History This section includes a history of the smoking, or tobacco-related health factors, that were collected on or before the date of the Encounter. The data comes from the MS facility where the Encounter took place. Date/Time Smoking Status/Tobacco Use Comment Ramu harrington May 07, 2024 10:00 AM VA-TOBACCO NEVER U SED OTHER TYPE [facility] Feb 14, 2024 08:30 AM VA-TOBACCO FORMER USER [facility] Feb 14, 2024 08:30 AM VA-TOBACCO QUIT 15 YRS OR MORE [facility] Jan 10, 2023 11:00 AM VA-TOBACCO NEVER USED [facility] Dec 09, 2021 08:00 AM VA-TOBACCO NEVER USED [facility] Dec 10, 2020 09:30 AM VA-TOBACCO NEVER USED [facility] May 13, 2019 09:09 AM VA-TOBACCO NEVER USED [facility] Apr 03, 2018 09:45 AM VA-TOBACCO NEVER USED [facility] May 07, 2017 10:31 AM V9 LIFETIME NON-USER OF TOBACCO [facility] Apr 06, 2016 10:18 AM V9 LIFETIME NON-USER OF TOBACCO [facility] Jan 26, 2015 08:52 AM V9 LIFETIME NON-USER OF TOBACCO [facility] August 18, 2013 08:27 AM V9 LIFETIME NON-USER OF TOBACCO [facility] Sep 18, 2012 08:39 AM V9 LIFETIME NON-USER OF TOBACCO [facility] Jan 19, 2012 10:42 AM V9 LIFETIME NON-USER OF TOBACCO [facility] Jan 19, 2012 10:42 AM V9 TOBACCO OFFERED [facility] September 13, 2010 10:28 AM V9 LIFETIME NON-USER OF TOBACCO [facility] September 13, 2010 10:28 AM V9 TOBACCO OFFERED [facility] Sep 21, 2006 12:59 PM V9 LIFETIME NON-USER OF TOBACCO [facility] Jan 29, 2006 07:52 AM HF V9 LIFETIME NON-SMOKER [facility] Dec 30, 2004 08:05 AM HF V9 LIFETIME NON-SMOKER [facility] Dec 23, 2003 02:58 PM HF V9 LIFETIME NON-SMOKER [facility] Pathology Reports: +/- 30 days of the [...] the Encounter. The data comes from all [facility] facilities. Date/Time Pathology Report Provider Source Jul 10, 2024 09:41 AM LR SURGICAL PATHOL OG[facility]ai REPORT: LOCAL TITLE: LR SURGICAL PATHOLOGY REPORT DATE OF NOTE: JUL 10, 2024@09:41:15 ENTRY DATE: JUL 10, 2024@09:41:15 AUTHOR: JOE LEUNG COSIGNER: URGENCY: STATUS: COMPLETED $APHDR Reporting Lab: [facility] [CLIA# [id number]] [address] [place] [address] - - - - - - - [...] left earlobe and consists of an unoriented, dgi-upkk-kppsfkp, yellow/white shave of skin measuring 0.5 x 0.4 x 0.2 cm. A rough papule is identified over the skin surface measuring 0.4 x 0.3 cm. The cut surface is yellow/white and grossly unremarkable. The cut surface is inked blue. The specimen is bisected to reveal a white solid interior. The specimen is submitted entirely in a single cassette. 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 /[place]/ JOE LEUNG pathologist Signed Jul 10, 2024@09:41 Performing Laboratory: Surgical Pathology Report Performed By: [facility] [CLIA# [id number]] [address] [place] [id number] $FTR - - - - - - - - - - - - - - - - - - - - - - - - - - - - - - - - - - - - - - - - (End of report) JOE LEUNG MD [facility] Date Jul 10, 2024 - - - - - - - - - - - - - - - - - - - - - - - - - - - - - - - - - - - - - - - - ERIK MISHRA STANDARD FORM 515 ID:[id number] SEX:M :1945 AGE: 78 LOC:PATH PCP: Laura Steinberg MD /[place]/ JOE LEUNG pathologist Signed: 07/10/2024 09:41 JOE LEUNG [facility] Encounter Notes: All associated encounter notes This section contains the clinical notes associated to the Encounter. Date/Time Encounter Note(s) Provider Source Jul 24, 2024 06:39 AM PHARMACY SECURE MESSAGING: LOCAL TITLE: PHARMACY SECURE MESSAGING STANDARD TITLE: PHARMACY SECURE MESSAGING DATE OF NOTE: JUL 24, 2024@06:39 ENTRY DATE: JUL 24, 2024@06:39:38 AUTHOR: BOOM CANTU EXP COSIGNER: URGENCY: STATUS: COMPLETED ------Original Message ------ Sent: 07/22/2024 11:53 AM ET From: ERIK MISHRA To: Ask Pharmacist/Med EVER Brooks@ Subject: Medication:med refills are out magnesium oxide rx [id number] do i need this as it has been removed from med list. ------Original Message ------ Sent: 07/24/2024 06:39 AM ET From: BOOM CANTU To: ERIK MISHRA Subject: Medication:med refills are out Good morning, Mr. Mishra. Your current prescription had and did not have refills remaining, so I will forward this to Dr. Steinberg for review to determine if you still need to remain on it. Have a good day and thank you for your service! [id number] MAGNESIUM OXIDE 420MG TAB 200 E> 04-16 01-01 0 90 Boom Cantu Professor Of Environmental Science, block handler ([facility]) Patient Advocate Liaison, Pharmacy Service // BOOM CANTU Professor Of Environmental Science (block handler) Signed: 07/24/2024 06:39 Receipt Acknowledged By: * AWAITING SIGNATURE * LAURA STEINBERG GWENDOLYN Y [place]-[facility]
--- OUTSIDE RECORDS SUMMARY | 2024-07-24 21:24 | XMS_ITS | Encounter Summary ---
Author Name Department of Veter[facility] ns [facility] ([place]) Organization [facility] [place]) Address [address] [place] [address] Care Team Providers Care Goodwill Representative Name Role Phone LAURA MCKEON Primary Care [...] PART A Oct 14, 2009 PART A [id number] Alex GALLEGO PATIENT MEDICARE (WNR) MEDICARE (M) PART B Oct 14, 2009 PART B [id number] Alex GALLEGO PATIENT MEDICARE (WNR) MEDICARE (M) PART B Oct 14, 2009 PART B [id number] Alex GALLEGO PATIENT MEDICARE (WNR) MEDICARE (M) PART A Oct 14, 2009 PART A [id number] Alex GALLEGO PATIENT MEDICARE (WNR) MEDICARE (M) PART A Oct 14, 2009 PART A [id number] Alex GALLEGO PATIENT MEDICARE (WNR) MEDICARE (M) PART B Oct 14, 2009 PART B [id number] Alex GALLEGO PATIENT Selected Encounter This section includes the information on record at ID for the Encounter. Date/Time Encounter Type Encounter Description Reason Pro vider Source Jun 27, 2024 12:57 PM Outpatient Encounter ADMIN PAT ACTIVTIES (MASNONCT) IHE Encounter Template Text not used by ID Plan of Treatment: Future Appointments (+ 6 months) and Future Tests (+/- 45 days) The Plan of Treatment section includes future care activities for the patient from all ID treatmentfacilities. This section includes future appointments and future orders which are active, pending or scheduled. Future Appointments This section includes appointments that were scheduled to occur 6 months from the date of the Encounter, up to a maximum of 20 appointments. The data comes from all ID treatment facilities. Appointment Date/Time Appointment Type Appointme nt Facility Name Jun 30, 2024 11:00 AM AMBULATORY - NONE [facility] Jun 30, 2024 03:00 PM AMBULATORY - MEDICINE [facility] Jul 01, 2024 09:00 AM AMBULATORY - MEDICINE [facility] Jul 07, 2024 10:00 AM AMBULATORY - PS[facility]CHIATRY [facility] Jul 08, 2024 10:00 AM AMBULATORY - MEDICINE [facility] Jul 10, 2024 08:30 AM AMBULATORY - MEDICINE [facility] Jul 24, 2024 03:00 PM AMBULATORY - PS[facility]CHIATRY [facility] Aug 05, 2024 09:00 AM [facility] Aug 11, 2024 10:00 AM AMBULATORY - [facility]CHIATRY [facility] Aug 12, 2024 09:00 AM [facility] August 18, 2024 09:00 AM AM[facility]ORY - [facility]GERY [facility] September 02, 2024 08:20 AM [facility]ORY - [facility]GERY [facility] [facility] Oct 01, 2024 09:00 AM AMBULATORY - NONE [facility] Oct 30, 2024 09:00 AM AMBULATORY - PSYCHIATRY [facility] Dec 09, 2024 08:00 AM AMBULATORY - NONE [facility] Lab Results: +/- 30 days of the [...] Type Comment Jun 30, 2024 03:27 PM [facility] BNP (STODDARD) PLASMA Specimen Type: PLASMA Comment: BNP results less than or equal to 100 pg/ml are union contract representative of normal values in patients without CHF. BNP results greater than 100 pg/ml are considered abnormal and suggestive of CHF. Higher BNP concentrations in the first 72 hours after Acute Coronary Syndrome are associated with an increased risk of , myocardial infarction and CHF. Ordering Provider: SACHI SAINZ Report Released Date/Time: Jun 30, 2024 03:21 PM Reporting Lab: [facility] [address] [facility] [address] Performing Lab: [address] [address] BNP (STODDARD) 22 pg/mL 0-100 Jun 30, 2024 03:27 PM [facility] PANEL 1 PLASMA Specimen Type: PLASM [...] Jun 30, 2024 03:21 PM Reporting Lab: [address] [address] Performing Lab: [address] [address] CREATININE 1.43 mg/dL H 0.72-1.25 UREA NITROGEN 22 mg/dL 9-25 GLUCOSE 164 mg/dL H 74-100 SODIUM 139 mmol/L 136-145 POTASSIUM 3.7 mmol/L 3.5-5.1 CHLORIDE 102 mmol/L 98-107 CO2 27 mmol/L 22-29 CALCIUM 9.8 mg/dL 8.4-10.2 ANION GAP 10 meq/L 3-19 eGFR (CKD-EPI) 50 Jun 30, 2024 03:27 PM [facility] CBC/PLT BLOOD Specimen Type: BLOOD No comment entered. Ordering Provider: SACHI SAINZ Report Released Date/Time: Jun 30, 2024 03:21 PM Reporting Lab: [address] [address] Performing Lab: [address] [address] WBC 7.2 10*3/uL 5.0-10.0 RBC 4.85 10*6/uL [...] and tobacco- related health factors from the ID facility where the Encounter took place. Current Smoking Status This section includes the most current smoking, or tobacco-related health factor, from the ID facility where the Encounter took place. Date/Time Current Smoking Status Comment Edis baker May 07, 2024 10:00 AM VA-TOBACCO NEVER U SED CIGARETTES [facility] Tobacco Use History This section includes a history of the smoking, or tobacco-related health factors, that were collected on or before the date of the Encounter. The data comes from the ID facility where the Encounter took place. Date/Time Smoking Status/Tobacco Use Comment Ramu harrington May 07, 2024 10:00 AM VA-TOBACCO NEVER U SED OTHER TYPE [facility] Feb 14, 2024 08:30 AM VA-TOBACCO FORMER USER [facility] Feb 14, 2024 08:30 AM VA-TOBACCO QUIT 15 YRS OR MORE [facility] Jan 10, 2023 11:00 AM VA-TOBACCO NEVER USED [facility] Dec 09, 2021 08:00 AM VA-TOBACCO NEVER USED [facility] Dec 10, 2020 09:30 AM VA-TOBACCO NEVER USED [facility] May 13, 2019 09:09 AM VA-TOBACCO NEVER USED [facility] Apr 03, 2018 09:45 AM VA-TOBACCO NEVER USED [facility] May 07, 2017 10:31 AM V9 LIFETIME NON-USER OF TOBACCO [facility] Apr 06, 2016 10:18 AM V9 LIFETIME NON-USER OF TOBACCO [facility] Jan 26, 2015 08:52 AM V9 LIFETIME NON-USER OF TOBACCO [facility] August 18, 2013 08:27 AM V9 LIFETIME NON-USER OF TOBACCO [facility] Sep 18, 2012 08:39 AM V9 LIFETIME NON-USER OF TOBACCO [facility] Jan 19, 2012 10:42 AM V9 LIFETIME NON-USER OF TOBACCO [facility] Jan 19, 2012 10:42 AM V9 TOBACCO OFFERED [facility] September 13, 2010 10:28 AM V9 LIFETIME NON-USER OF TOBACCO [facility] September 13, 2010 10:28 AM V9 TOBACCO OFFERED [facility] Sep 21, 2006 12:59 PM V9 LIFETIME NON-USER OF TOBACCO [facility] Jan 29, 2006 07:52 AM HF V9 LIFETIME NON-SMOKER [facility] Dec 30, 2004 08:05 AM HF V9 LIFETIME NON-SMOKER [facility] Dec 23, 2003 02:58 PM HF V9 LIFETIME NON-SMOKER [facility] Radiology Reports: +/- 30 days [...] the Encounter. The data comes from all [facility]] facilities. Date/Time Radiology Report Provider Source May 29, 2024 05:[address] PERFORMED BY OTHER FACILITY: ERIK GALLEGO [id number] -1945 M Ex Date: MAY 29, 2024@17:13 Req Phys: LAURA MCKEON Loc: [facility] PACT LULU 1-2 (Req'g Lo Img Loc: OUTSIDE2 LD CT Service: Unknown (Case [id number] COMPLETE) [id number] CT PERFORMED BY OTHER FACIL(CT Detailed) CPT:21695 Reason for Study: Exam imported from outside Clinical History: Original Data for Imported Study Patient Name: ERIK GALLEGO Date: 1945 Sex: M Study Date: 05/29/24 Study Time: 05:13:55 Study Description: CT CHEST PE/ABD/PEL W Referring Physician: TAMMI GEE Series 1: 2 CT files, description: UNITIZER Series 2: 216 CT files, description: 5.0mm [...] Diagnostic Code: VERIFIED BY: / *ELECTRONICALLY FILED* [facility] Pathology Reports: +/- 30 days of [...] the Encounter. The data comes from all ID treatment facilities. Date/Time Pathology Report Provider Source Jul 10, 2024 09:41 AM LR SURGICAL PATHOL KIP REPORT: LOCAL TITLE: LR SURGICAL PATHOLOGY REPORT DATE OF NOTE: JUL 10, 2024@09:41:15 ENTRY DATE: JUL 10, 2024@09:41:15 AUTHOR: JOE LEUNG COSIGNER: URGENCY: STATUS: COMPLETED $APHDR Reporting Lab: [facility] [IA# [id number]] [address] [place] [address] - - - - - - - [...] left earlobe and consists of an unoriented, glu-genf-dwhayab, yellow/white shave of skin measuring 0.5 x 0.4 x 0.2 cm. A rough papule is identified over the skin surface measuring 0.4 x 0.3 cm. The cut surface is yellow/white and grossly unremarkable. The cut surface is inked blue. The specimen is bisected to reveal a white solid interior. The specimen is submitted entirely in a single cassette. 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 /es/ JOE LEUNG pathologist Signed Jul 10, 2024@09:41 Performing Laboratory: Surgical Pathology Report Performed By: [facility] [CLIA# [id number]] [address] [place] [address] $FTR - - - - - - - - - - - - - - - - - - - - - - - - - - - - - - - - - - - - - - - - (End of report) JOE LEUNG MD [facility] Date Jul 10, 2024 - - - - - - - - - - - - - - - - - - - - - - - - - - - - - - - - - - - - - - - - ERIK GALLEGO STANDARD FORM 515 ID:[id number] SEX:M :1945 AGE: 78 LOC:PATH PCP: Laura Mckeon MD /es/ JOE LEUNG pathologist Signed: 07/10/2024 09:41 JOE LEUNG-[facility] Encounter Notes: All associated encounter notes This section contains the clinical notes associated to the Encounter. Date/Time Encounter Note(s) Provider Source Jun 19, 2024 12:57 PM NONVA NOTE: LOCAL TITLE: OUTSIDE MEDICAL RECORD-OTHER STANDARD TITLE: NONVA NOTE DATE OF NOTE: JUN 19, 2024@12:57 ENTRY DATE: JUN 27, 2024@12:57:35 AUTHOR: JOE MAX EXP COSIGNER: URGENCY: STATUS: COMPLETED The scanned image may be viewed in [employer] /[place]/ JOE MAX fileclerk Signed: 06/27/2024 12:57 JOE MAX-[facility]
--- OUTSIDE RECORDS SUMMARY | 2024-07-24 21:25 | XMS_ITS | Encounter Summary ---
Author Name [facility] [place] [facility] [place] Address [address] [place] [address] Care Team Providers Care Control Engineer Name Role Phone CYNDI STIENBERG Primary Care Provider Unavailabl e Insurance Providers: [...] PART A Oct 14, 2009 PART A [id number] Alex MISHRA PATIENT MEDICARE (WNR) MEDICARE (M) PART B Oct 14, 2009 PART B [id number] Alex MISHRA PATIENT MEDICARE (WNR) MEDICARE (M) PART A Oct 14, 2009 PART A [id number] Alex MISHRA [place] PATIENT MEDICARE (WNR) MEDICARE (M) PART B Oct 14, 2009 PART B [id number] Alex MISHRA [place] PATIENT MEDICARE (WNR) MEDICARE (M) PART B Oct 14, 2009 PART B [id number] Alex MISHRA PATIENT MEDICARE (WNR) MEDICARE (M) PART A Oct 14, 2009 PART A [id number] Alex MISHRA PATIENT Selected Encounter This section includes the information on record at [place] for the Encounter. Date/Time Encounter Type Encounter Description Reason Provider Source May 06, 2024 10:00 AM PSYTX W PT [facility] ICD-10-CM F43.10 Post-traumatic stress disorder, unspecified BENITEZ DUNN Jennifer Encounter Template Text not used by [place] Assessments - Encounter Diagnoses This section includes the primary and secondary diagnoses documented for the Encounter. Date/Time Primary/Secondary Diagnosis Diagnosis Name Provider Source May 06, 2024 10:48 AM PRIMARY Post-traumatic stress disorder, unspecified BENITEZ DUNN [facility] Plan of Treatment: Future Appointments (+ 6 months) and Future Tests (+/- 45 days) The Plan of Treatment section includes future care activities for the patient from all [place] treatmentfacilities. This section includes future appointments and future orders which are active, pending or scheduled. Future Appointments This section includes appointments that were scheduled to occur 6 months from the date of the Encounter, up to a maximum of 20 appointments. The data comes from all [place] treatment facilities. Appointment Date/Time Appointment Type Appointme nt Facility Name May 07, 2024 10:00 AM AMBULATORY - MEDICINE [facility] May 15, 2024 10:30 AM AMBULATORY - REHAB MEDICIN E [facility] May 20, 2024 08:00 AM [place]ORY - NONE [place] [facility] May 20, 2024 10:00 AM [facility]ORY - MEDICINE [facility] May 27, 2024 08:00 AM [facility]ORY - NONE [place] Jun 06, 2024 08:00 AM AMBULATORY - SURGERY [place] [facility] Jun 10, 2024 08:50 AM AM[facility]ULATORY - MEDICINE [facility] Jun 10, 2024 11:00 AM [facility] Jun 20, 2024 09:00 AM [facility] [place] [facility] [facility] Jun 24, 2024 08:00 AM [place]ORY - NONE [place] [facility] Jun 30, 2024 11:00 AM [facility] Jun 30, 2024 03:00 PM AMBULATORY - MEDICINE [facility] Jul 01, 2024 09:00 AM AMBULATORY - MEDICINE [facility] Jul 07, 2024 10:00 AM AMBULATORY - PSYCHIATRY [facility] Jul 08, 2024 10:00 AM [facility] Jul 10, 2024 08:30 AM [facility] MEDICINE [facility] Jul 24, 2024 03:00 PM AMBULATORY - PSYCHIATRY [facility] Aug 05, 2024 09:00 AM [facility] Aug 11, 2024 10:00 AM AMBULAT[facility] - [facility]CHIATRY [facility] Aug 12, 2024 09:00 AM AMBULATORY - MEDICINE [facility] Lab Results: +/- 30 days of [...] Type Comment May 15, 2024 09:46 AM [facility] MAGNESIUM PLASMA Specimen Type: PLASMA Comment: [...] decrease <15 G5 Kidney failure Ordering Provider: CYNDI STEINBERG Report Released Date/Time: May 07, 2024 10:35 AM Reporting Lab: [address] [address] Performing Lab: [address] [address] MAGNESIUM 1.8 mg/dL 1.6-2.6 May 15, 2024 09:46 AM [facility] PLASMA Specimen Type: PLASM A [...] decrease <15 G5 Kidney failure Ordering Provider: CYNDI STEINBERG Report Released Date/Time: May 07, 2024 10:35 AM Reporting Lab: [address] [address] Performing Lab: [address] [address] CREATININE 1.54 mg/dL H 0.72-1.25 UREA NITROGEN 20 mg/dL 9-25 GLUCOSE 151 mg/dL H 74-100 SODIUM 140 mmol/L 136-145 POTASSIUM 4.0 mmol/L 3.5-5.1 CHLORIDE 104 mmol/L 98-107 CO2 28 mmol/L 22-29 CALCIUM 9.7 mg/dL 8.4-10.2 ANION GAP 8 meq/L 3-19 eGFR (CKD-EPI) 46 May 15, 2024 09:46 AM [facility] BNP ([employer]) PLASMA Specimen Type: PLASMA Comment: BNP results less than or equal to 100 pg/ml are customer development representative of normal values in patients without CHF. BNP results greater than 100 pg/ml are considered abnormal and suggestive of CHF. Higher BNP concentrations in the first 72 hours after Acute Coronary Syndrome are associated with an increased risk of , myocardial infarction and CHF. Ordering Provider: CYNDI STEINBERG Report Released Date/Time: May 07, 2024 10:35 AM Reporting Lab: [address] [address] Performing Lab: [address] [address] BNP (STODDARD) 29 pg/mL 0-100 Apr 29, 2024 10:55 AM [facility] URINALYSIS URINE Specimen Type : URINE Comment: Microscopic not indicated Ordering Provider: ERIK KIM Report Released Date/Time: Apr 16, 2024 01:19 PM Reporting Lab: [address] [address] Performing Lab: [address] [address] URINE COLOR Colorless Colorless-Yellow APPEARANCE Clear Clear UROBILINOGEN Normal mg/dL Normal URINE BLOOD Negative Negative URINE BILIRUBIN Negative Negative URINE KETONES Negative mg/dL Negative URINE PROTEIN Negative mg/dL Negative-Tr john URINE PH 7.0 4.5-8.0 URINE NITRITE Negative Negative URINE LEUKOCYTE EST Negative Negative SPECIFIC GRAVITY 1.005 1.005-1.030 URINE GLUCOSE Negative mg/dL Negative Apr 29, 2024 10:49 AM [facility] LACTIC ACID PLASMA Specimen Type : PLASMA Comment: ~2 hours from now Ordering Provider: ERIK KIM Report Released Date/Time: Apr 16, 2024 01:19 PM Reporting Lab: [address] [address] Performing Lab: [address] [address] LACTIC ACID 1.4 mmol/L 0.5-2.2 Apr 29, 2024 10:49 AM [facility] HIGH SENSITIVITY TROPONIN I PLASMA Specimen Type: PLASMA Comment: Reference Ranges Females: 4 - 14 ng/L Males: 4 - 35 ng/L Limit of Quantitation: 4 ng/L Significant High-Sensitivity Troponin I Delta at 2 hours, either rising or falling: >10 ng/L. Once baseline and 2-hour High-Sensitivity Troponin I results are available, the Provider ordering the tests will calculate the HS-Troponin I Delta, the difference between the two values. High-Troponin I values greater than the 99th percentile with a rising or falling pattern (a change of >10 ng/L between the baseline and 2-hour samples) highly suggest acute cardiac injury, whereas values for females 4-14 ng/L and males 4-35 ng/L require further clinician assessment. Acute cardiac injury does not necessarily equate to acute myocardial infarction. Additional clinical criteria are necessary for the diagnosis of Specimens from individuals with elevated levels of fibrinogen may demonstrate falsely elevated values. This assay is susceptible to interference from total protein >8.8 g/dL. Total protein values from 9.0 to 12.0 g/dL decrease Troponin values at 500 ng/L by up to -16.3%. Although designed to minimize the effects of HAMA, heterophilic antibodies, and RF, the assay results may be impacted in a falsely negative way by these proteins. A High-Sensitivity Troponin I information resource can be reached in [employer] in the Tools menu, under the Education tab. Ordering Provider: ERIK KIM Report Released Date/Time: Apr 16, 2024 01:19 PM Reporting Lab: [address] [address] Performing Lab: [address] [address] HIGH SENSITIVITY TROPONIN I <4 4-35 Apr 29, 2024 10:49 AM [facility] MAGNESIUM PLASMA Specimen Type: PLASM A [...] decrease <15 G5 Kidney failure Ordering Provider: CYNDI STEINBERG Report Released Date/Time: Apr 29, 2024 10:33 AM Reporting Lab: [address] [address] Performing Lab: [address] [address] MAGNESIUM 1.7 mg/dL 1.6-2.6 Apr 29, 2024 10:49 AM [facility] Specimen Type: PLASM [...] decrease <15 G5 Kidney failure Ordering Provider: CYNDI STEINBERG Report Released Date/Time: Apr 29, 2024 10:33 AM Reporting Lab: [address] [address] Performing Lab: [address] [address] CREATININE 1.35 mg/dL H 0.72-1.25 UREA NITROGEN 11 mg/dL 9-25 GLUCOSE 114 mg/dL H 74-100 SODIUM 141 mmol/L 136-145 POTASSIUM 4.2 mmol/L 3.5-5.1 CHLORIDE 105 mmol/L 98-107 CO2 29 mmol/L 22-29 CALCIUM 9.7 mg/dL 8.4-10.2 ANION GAP 7 meq/L 3-19 eGFR (CKD-EPI) 53 Apr 16, 2024 01:17 PM [facility] COVID-19 AND FLU/RSV DIAGNOSTIC PANEL NASOPH ARYNX Specimen Type: NASOPHARYNX Comment: Positive results are indicative of active infection with SARS-CoV-2; clinical correlation with patient history/diagnostic information is necessary. Positive results do not rule out bacterial infection or co-infection with other viruses. Negative results do not preclude SARS-CoV-2 infection and should not be used as the sole basis for treatment or other patient management decisions. Negative results must be combined with clinical observations, patient history, and epidemiological information. Presumptive positive results indicate that SARS-CoV-2 nucleic acids may be present. Repeat or confirmatory testing may be conducted if it is necessary to differentiate between SARS-CoV-2 and SARS-CoV-1 or other Sarbecovirus currently unknown to infect humans. The Xpert Xpress SARS-CoV-2 test is a rapid, real-time RT-PCR test intended for the qualitative detection of nucleic acid from the SARS-CoV-2 in nasopharyngeal swab specimens collected from individuals suspected of COVID-19 in the acute phase of infection and is only for in vitro use under the Food and Drug Administration's Emergency Use Authorization. [employer] Genexpert (596) Ordering Provider: ERIK KIM Report Released Date/Time: Apr 16, 2024 01:13 PM Reporting Lab: [address] [address] Performing Lab: [address] [address] COVID-19 PCR (FLUVID) Negative Negative FLU A PCR (FLUVID) Negative Negative FLU B PCR (FLUVID) Negative Negative RSV PCR (FLUVID) Negative Negative Apr 16, 2024 12:08 PM [facility] LACTIC ACID PLASMA Specimen Type : PLASMA No comment entered. Ordering Provider: ERIK KIM Report Released Date/Time: Apr 16, 2024 01:19 PM Reporting Lab: [address] [address] Performing Lab: [address] [address] LACTIC ACID 2.8 mmol/L H 0.5-2.2 Apr 16, 2024 12:08 PM [facility] PROTHROMBIN TIME PLASMA Specimen Ty pe: PLASMA No comment entered. Ordering Provider: ERIK KIM Report Released Date/Time: Apr 16, 2024 01:19 PM Reporting Lab: [address] [address] Performing Lab: [address] [address] PT PATIENT 13.2 s 11.7-14.4 INTERNATIONAL NORMALIZED RATIO 1.02 0 .87-1.14 Apr 16, 2024 12:08 PM [facility] PHOSPHORUS PLASMA Specimen Type: PLASM A Comment: Reference Ranges Females: 4 - 14 ng/L Males: 4 - 35 ng/L Limit of Quantitation: 4 ng/L Significant High-Sensitivity Troponin I Delta at 2 hours, either rising or falling: >10 ng/L. Once baseline and 2-hour High-Sensitivity Troponin I results are available, the Provider ordering the tests will calculate the HS-Troponin I Delta, the difference between the two values. High-Troponin I values greater than the 99th percentile with a rising or falling pattern (a change of >10 ng/L between the baseline and 2-hour samples) highly suggest acute cardiac injury, whereas values for females 4-14 ng/L and males 4-35 ng/L require further clinician assessment. Acute cardiac injury does not necessarily equate to acute myocardial infarction. Additional clinical criteria are necessary for the diagnosis of Specimens from individuals with elevated levels of fibrinogen may demonstrate falsely elevated values. This assay is susceptible to interference from total protein >8.8 g/dL. Total protein values from 9.0 to 12.0 g/dL decrease Troponin values at 500 ng/L by up to -16.3%. Although designed to minimize the effects of HAMA, heterophilic antibodies, and RF, the assay results may be impacted in a falsely negative way by these proteins. A High-Sensitivity Troponin I information resource can be reached in [employer] in the Tools menu, under the Education tab. Estimated Glomerular Filtration Rate (eGFR) calculated using [...] decrease <15 G5 Kidney failure Ordering Provider: ERIK KIM Report Released Date/Time: Apr 16, 2024 01:19 PM Reporting Lab: [address] [address] Performing Lab: [address] [address] PHOSPHORUS 2.5 mg/dL 2.3-4.7 Apr 16, 2024 12:08 PM [facility] MAGNESIUM PLASMA Specimen Type: PLASM A Comment: Reference Ranges Females: 4 - 14 ng/L Males: 4 - 35 ng/L Limit of Quantitation: 4 ng/L Significant High-Sensitivity Troponin I Delta at 2 hours, either rising or falling: >10 ng/L. Once baseline and 2-hour High-Sensitivity Troponin I results are available, the Provider ordering the tests will calculate the HS-Troponin I Delta, the difference between the two values. High-Troponin I values greater than the 99th percentile with a rising or falling pattern (a change of >10 ng/L between the baseline and 2-hour samples) highly suggest acute cardiac injury, whereas values for females 4-14 ng/L and males 4-35 ng/L require further clinician assessment. Acute cardiac injury does not necessarily equate to acute myocardial infarction. Additional clinical criteria are necessary for the diagnosis of Specimens from individuals with elevated levels of fibrinogen may demonstrate falsely elevated values. This assay is susceptible to interference from total protein >8.8 g/dL. Total protein values from 9.0 to 12.0 g/dL decrease Troponin values at 500 ng/L by up to -16.3%. Although designed to minimize the effects of HAMA, heterophilic antibodies, and RF, the assay results may be impacted in a falsely negative way by these proteins. A High-Sensitivity Troponin I information resource can be reached in [facility] in the Tools menu, under the Education tab. Estimated Glomerular Filtration Rate (eGFR) calculated using [...] decrease <15 G5 Kidney failure Ordering Provider: ERIK KIM Report Released Date/Time: Apr 16, 2024 01:19 PM Reporting Lab: [address] [address] Performing Lab: [address] [address] MAGNESIUM 1.5 mg/dL L 1.6-2.6 Apr 16, 2024 12:08 PM [facility] CK TOTAL PLASMA Specimen Type: PLASM A Comment: Reference Ranges Females: 4 - 14 ng/L Males: 4 - 35 ng/L Limit of Quantitation: 4 ng/L Significant High-Sensitivity Troponin I Delta at 2 hours, either rising or falling: >10 ng/L. Once baseline and 2-hour High-Sensitivity Troponin I results are available, the Provider ordering the tests will calculate the HS-Troponin I Delta, the difference between the two values. High-Troponin I values greater than the 99th percentile with a rising or falling pattern (a change of >10 ng/L between the baseline and 2-hour samples) highly suggest acute cardiac injury, whereas values for females 4-14 ng/L and males 4-35 ng/L require further clinician assessment. Acute cardiac injury does not necessarily equate to acute myocardial infarction. Additional clinical criteria are necessary for the diagnosis of Specimens from individuals with elevated levels of fibrinogen may demonstrate falsely elevated values. This assay is susceptible to interference from total protein >8.8 g/dL. Total protein values from 9.0 to 12.0 g/dL decrease Troponin values at 500 ng/L by up to -16.3%. Although designed to minimize the effects of HAMA, heterophilic antibodies, and RF, the assay results may be impacted in a falsely negative way by these proteins. A High-Sensitivity Troponin I information resource can be reached in [employer] in the Tools menu, under the Education tab. Estimated Glomerular Filtration Rate (eGFR) calculated using [...] decrease <15 G5 Kidney failure Ordering Provider: ERIK KIM Report Released Date/Time: Apr 16, 2024 01:19 PM Reporting Lab: [address] [address] Performing Lab: [address] [address] CK TOTAL 64 U/L 30-200 Apr 16, 2024 12:08 PM [facility] HIGH SENSITIVITY TROPONIN I PLASMA Specimen Ty pe: PLASMA Comment: Reference Ranges Females: 4 - 14 ng/L Males: 4 - 35 ng/L Limit of Quantitation: 4 ng/L Significant High-Sensitivity Troponin I Delta at 2 hours, either rising or falling: >10 ng/L. Once baseline and 2-hour High-Sensitivity Troponin I results are available, the Provider ordering the tests will calculate the HS-Troponin I Delta, the difference between the two values. High-Troponin I values greater than the 99th percentile with a rising or falling pattern (a change of >10 ng/L between the baseline and 2-hour samples) highly suggest acute cardiac injury, whereas values for females 4-14 ng/L and males 4-35 ng/L require further clinician assessment. Acute cardiac injury does not necessarily equate to acute myocardial infarction. Additional clinical criteria are necessary for the diagnosis of Specimens from individuals with elevated levels of fibrinogen may demonstrate falsely elevated values. This assay is susceptible to interference from total protein >8.8 g/dL. Total protein values from 9.0 to 12.0 g/dL decrease Troponin values at 500 ng/L by up to -16.3%. Although designed to minimize the effects of HAMA, heterophilic antibodies, and RF, the assay results may be impacted in a falsely negative way by these proteins. A High-Sensitivity Troponin I information resource can be reached in [facility] in the Tools menu, under the Education tab. Estimated Glomerular Filtration Rate (eGFR) calculated using [...] decrease <15 G5 Kidney failure Ordering Provider: ERIK KIM Report Released Date/Time: Apr 16, 2024 01:19 PM Reporting Lab: [address] [address] Performing Lab: [address] [address] HIGH SENSITIVITY TROPONIN I <4 4-35 Apr 16, 2024 12:08 PM [facility] BNP (STODDARD) PLASMA Specimen Type : PLASMA Comment: BNP results less than or equal to 100 pg/ml are customer development representative of normal values in patients without CHF. BNP results greater than 100 pg/ml are considered abnormal and suggestive of CHF. Higher BNP concentrations in the first 72 hours after Acute Coronary Syndrome are associated with an increased risk of , myocardial infarction and CHF. Ordering Provider: ERIK KIM Report Released Date/Time: Apr 16, 2024 01:38 PM Reporting Lab: [address] [address] Performing Lab: [address] [address] BNP (STODDARD) <10 pg/mL 0-100 Apr 16, 2024 12:08 PM [facility] AUTOMATED DIFF BLOOD Specimen Type : BLOOD Comment: ~STAT Ordering Provider: ERIK KIM Report Released Date/Time: Apr 16, 2024 01:19 PM Reporting Lab: [address] [address] Performing Lab: [address] [address] A-LYMPH % 14.8 L 24.0-44.0 A-MONO % 4.7 0.1-6.0 A-GRAN % 79.5 H 42.0-75.0 A-LYMPH # 0.94 10*3/uL L 1.20-3.40 A-MONO # 0.30 10*3/uL 0.00-0.60 A-GRAN # 5.07 10*3/uL 1.40-6.50 A-BASO % 0.2 0.0-3.0 A-BASO # 0.01 10*3/uL 0.00-0.20 A-EOS % 0.3 0.0-10.0 A-EOS # 0.02 10*3/uL 0.00-0.70 A-IG % 0.5 0.0-0.5 A-IG # 0.03 10*3/uL 0.00-0.06 Apr 16, 2024 12:08 PM [facility] CBC/PLT BLOOD Specimen Type: BLOOD Comment: ~STAT Ordering Provider: ERIK KIM Report Released Date/Time: Apr 16, 2024 01:19 PM Reporting Lab: [address] [address] Performing Lab: [address] [address] WBC 6.4 10*3/uL 5.0-10.0 RBC 5.02 10*6/uL 4.6-6.2 HGB 15.0 g/dL 14.0-18.0 HCT 44.3 42.0-52.0 MCV 88.2 fL 80.0-94.0 MCH 29.9 pg 27.0-31.0 MCHC 33.9 g/dL 32.0-36.0 PLT 208 10*3/uL 150-450 MPV 11.1 fL 9.0-13.1 RDW 14.1 11.0-16.0 NRBC 0.0 0.0-0.0 Apr 16, 2024 12:08 PM [facility] PANEL 5 PLASMA Specimen Type: PLASM A Comment: Reference Ranges Females: 4 - 14 ng/L Males: 4 - 35 ng/L Limit of Quantitation: 4 ng/L Significant High-Sensitivity Troponin I Delta at 2 hours, either rising or falling: >10 ng/L. Once baseline and 2-hour High-Sensitivity Troponin I results are available, the Provider ordering the tests will calculate the HS-Troponin I Delta, the difference between the two values. High-Troponin I values greater than the 99th percentile with a rising or falling pattern (a change of >10 ng/L between the baseline and 2-hour samples) highly suggest acute cardiac injury, whereas values for females 4-14 ng/L and males 4-35 ng/L require further clinician assessment. Acute cardiac injury does not necessarily equate to acute myocardial infarction. Additional clinical criteria are necessary for the diagnosis of Specimens from individuals with elevated levels of fibrinogen may demonstrate falsely elevated values. This assay is susceptible to interference from total protein >8.8 g/dL. Total protein values from 9.0 to 12.0 g/dL decrease Troponin values at 500 ng/L by up to -16.3%. Although designed to minimize the effects of HAMA, heterophilic antibodies, and RF, the assay results may be impacted in a falsely negative way by these proteins. A High-Sensitivity Troponin I information resource can be reached in [facility] in the Tools menu, under the Education tab. Estimated Glomerular Filtration Rate (eGFR) calculated using [...] decrease <15 G5 Kidney failure Ordering Provider: ERIK KIM Report Released Date/Time: Apr 16, 2024 01:19 PM Reporting Lab: [address] [address] Performing Lab: [address] [address] CREATININE 1.48 mg/dL H 0.72-1.25 UREA NITROGEN 30 mg/dL H 9-25 GLUCOSE 227 mg/dL H 74-100 SODIUM 138 mmol/L 136-145 POTASSIUM 4.2 mmol/L 3.5-5.1 CHLORIDE 102 mmol/L 98-107 CO2 21 mmol/L L 22-29 CALCIUM 10.3 mg/dL H 8.4-10.2 TOTAL PROTEIN 7.1 g/dL 6.4-8.3 ALBUMIN 4.1 g/dL 3.5-5.2 TOTAL BILIRUBIN 0.8 mg/dL 0.2-1.2 AST 25 U/L 5-34 ALT 25 U/L 0-55 ANION GAP 15 meq/L 3-19 ALK PHOS 72 U/L 40-150 eGFR (CKD-EPI) 48 Social History: Smoking Status (Most current) and Tobacco Use (All prior to encounter date) This section includes the most current, and the historical, smoking and tobacco- related health factors from the [place] facility where the Encounter took place. Current Smoking Status This section includes the most current smoking, or tobacco-related health factor, from the [place] facility where the Encounter took place. Date/Time Current Smoking Status Comment Edis baker Feb 14, 2024 08:30 AM DE-TOBACCO QUIT 15 YRS OR MORE [facility] Tobacco Use History This section includes a history of the smoking, or tobacco-related health factors, that were collected on or before the date of the Encounter. The data comes from the [place] facility where the Encounter took place. Date/Time Smoking Status/Tobacco Use Comment F acility Feb 14, 2024 08:30 AM VA-TOBACCO QUIT 15 YRS OR MORE [facility] Jan 10, 2023 11:00 AM VA-TOBACCO NEVER USED [facility] Dec 09, 2021 08:00 AM VA-TOBACCO NEVER USED [facility] Dec 10, 2020 09:30 AM VA-TOBACCO NEVER USED [facility] May 13, 2019 09:09 AM VA-TOBACCO NEVER USED [facility] Apr 03, 2018 09:45 AM VA-TOBACCO NEVER USED [facility] May 07, 2017 10:31 AM V9 LIFETIME NON-USER OF TOBACCO [facility] Apr 06, 2016 10:18 AM V9 LIFETIME NON-USER OF TOBACCO [facility] Jan 26, 2015 08:52 AM V9 LIFETIME NON-USER OF TOBACCO [facility] [facility] August 18, 2013 08:27 AM V9 LIFETIME NON-USER OF TOBACCO [facility] Sep 18, 2012 08:39 AM V9 LIFETIME NON-USER OF TOBACCO [facility] Jan 19, 2012 10:42 AM V9 LIFETIME NON-USER OF TOBACCO [facility] Jan 19, 2012 10:42 AM V9 TOBACCO OFFERED [facility] September 13, 2010 10:28 AM V9 LIFETIME NON-USER OF TOBACCO [facility] September 13, 2010 10:28 AM V9 TOBACCO OFFERED [facility] Sep 21, 2006 12:59 PM V9 LIFETIME NON-USER OF TOBACCO [facility] Jan 29, 2006 07:52 AM HF V9 LIFETIME NON-SMOKER [facility] Dec 30, 2004 08:05 AM HF V9 LIFETIME NON-SMOKER [facility] Dec 23, 2003 02:58 PM HF V9 LIFETIME NON-SMOKER [facility] Radiology Reports: +/- 30 days of [...] the Encounter. The data comes from all [place] treatment facilities. Date/Time Radiology Report Provider Source May 29, 2024 05:[address] PERFORMED BY OTHER FACILITY: ERIK MISHRA [facility] [id number] -1945 Exm Date: MAY 29, 2024@17:13 Req Phys: CYNDI STEINBERG Pat Loc: DEANNE PACT LULU 1-2 (Req'g Lo Img Loc: OUTSIDE2 LD CT Service: Unknown (Case [id number] COMPLETE) [address] CT PERFORMED BY OTHER FACIL(CT Detailed) CPT:72834 Reason for Study: Exam imported from outside Clinical History: Original Data for Imported Study Patient Name: ERIK MISHRA Date: 1945 Sex: M Study Date: 05/29/24 Study Time: 05:13:55 Study Description: CT CHEST PE/ABD/PEL W Referring Physician: TAMMI GEE Series 1: 2 CT files, description: [employer] INTERN Series 2: 216 CT files, description: 5.0mm [...] Diagnostic Code: VERIFIED BY: / *ELECTRONICALLY FILED* [facility] May 27, 2024 08:07 AM MYOVIEW(1): ERIK MISHRA [id number] -1945 M Exm Date: MAY 27, 2024@08:07 Req Phys: CYNDI STEINBERG Pat 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) Img Loc: NUCLEAR MEDICINE Service: [place] [address] (Case [id number] COMPLETE) MYOVIEW(1) (NM Detailed) CPT:A9502 Reason for [...] 2024 Date Verified: MAY 27, 2024 Director Airport E-Sig: Report: STUDY: GXT REPORT: Patient exercised [...] Staff: ANIA ANDRADE APRN, Cardiology Verified by tool crib manager for ANIA ANDRADE /ANIA ESPINOZA-D [facility] May 27, 2024 08:07 AM 00521(D) MYOCARDIAL SPECT(MULTIPLE): MALLY MISHRAMEGHAN ARMSTRONG [id number] -1945 M Exm Date: MAY 27, 2024@08:07 Req Phys: CYNDI STEINBERG Pat 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) Img Loc: NUCLEAR MEDICINE Service: [place] [address] THIS IS AN AMENDED REPORT (Case [id number] COMPLETE) 93327(D) MYOCARDIAL SPECT(MULTIPL(NM Detailed) CPT:95734 Proc Modifiers : GXT Reason for Study: SEE CLINICAL HISTORY Radiopharmaceutical: TC-99M TETROFOSMIN (MYOVIEW)-1, 5.5 mCi Adm'd on MAY 27, 2024@08:00 by SONDRA GOTTLIEB Route [employer] Radiopharmaceutical: TC-99M TETROFOSMIN (MYOVIEW)-2, 16.5 mCi Adm'd on MAY 27, 2024@09:42 by SONDRA GOTTLIEB [employer] Clinical History: Cardiology approval by: Ania [...] 2024 Date Verified: JUN 05, 2024 Director Airport E-Sig: Report: [facility], [place], [place] STUDY: Treadmill Exercise SPECT Tc-99m myoview [...] performed with tomographic and three-dimensional reconstructions with Innovectra NM/CT 640 system. The patient performed treadmill [...] data sets in addition to the conventional xtf-gtlwcmlaakw-ixncvabht images. Both filtered back projection and iterative [...] ventricular cavity. 4. SPECT images: Attenuation-corrected and eko-lahqnultqfl-ksxjusnkn SPECT images were evaluated. SPECT images demonstrate normal myocardial perfusion. There is a medium size, mild intensity defect located in the euvis-gg-utlvrj inferior myocardium . The defect is fixed [...] Kerri Mena MD, Cardiology Attending /[facility] May 27, 2024 08:07 AM TC-99M FROM NON-HIGHLY ENRICHED URANIUM SOURCE: ERIK MISHRA [id number] -1945 M Ex Date: MAY 27, 2024@08:07 Req Phys: CYNDI STEINBERG 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) Img Loc: NUCLEAR MEDICINE Service: [place] [address] THIS IS AN AMENDED REPORT (Case [id number] COMPLETE) TC-99M FROM NON-HIGHLY ENRICHED U(NM Detailed) [...] 2024 Date Verified: JUN 05, 2024 Director Airport E-Sig: Report: [facility], [place], [place] STUDY: Treadmill Exercise SPECT Tc-99m myoview [...] performed with tomographic and three-dimensional reconstructions with Innovectra NM/CT 640 system. The patient performed treadmill [...] data sets in addition to the conventional agb-ynkdyzxdser-fxvuafkoz images. Both filtered back projection and iterative [...] ventricular cavity. 4. SPECT images: Attenuation-corrected and xsl-zompotonzql-lxjdegtxr SPECT images were evaluated. SPECT images demonstrate normal myocardial perfusion. There is a medium size, mild intensity defect located in the cihyl-fk-vofwxi inferior myocardium . The defect is fixed [...] BY: Kerri Mena MD, Cardiology Attending /[facility] May 27, 2024 08:07 AM MYOVIEW(2): ERIK MISHRA [id number] -1945 M [facility] Date: MAY 27, 2024@08:07 Req Phys: CYNDI STEINBERG 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) Img Loc: NUCLEAR MEDICINE Service: [place] [address] THIS IS AN AMENDED REPORT (Case [id number] COMPLETE) MYOVIEW(2) (NM Detailed) CPT:A9502 Reason for [...] 2024 Date Verified: JUN 05, 2024 Director Airport E-Sig: Report: [facility], [place], [place] STUDY: Treadmill Exercise SPECT Tc-99m myoview [...] performed with tomographic and three-dimensional reconstructions with Innovectra NM/CT 640 system. The patient performed treadmill [...] data sets in addition to the conventional ofr-jjhueqkyzlj-khtoulycw images. Both filtered back projection and iterative [...] ventricular cavity. 4. SPECT images: Attenuation-corrected and qjr-fzsoktsrbkh-uzcnnvkgt SPECT images were evaluated. SPECT images demonstrate normal myocardial perfusion. There is a medium size, mild intensity defect located in the bfqnd-cc-huyomz inferior myocardium . The defect is fixed [...] BY: Kerri Mena MD, Cardiology Attending /[facility] May 27, 2024 08:07 AM CARD. STRESS TEST W/TREADMILL/...: ERIK MISHRA NATHANIEL [id number] -1945 [facility] Date: MAY 27, 2024@08:07 Req Phys: CYNDI STEINBERG 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) Img Loc: NUCLEAR MEDICINE Service: [place] [address] THIS IS AN AMENDED REPORT (Case [id number] COMPLETE) CARD. STRESS TEST W/TREADMILL/...(NM Detailed) CPT:13486 Reason for Study: SEE CLINICAL HISTORY Clinical [...] 2024 Date Verified: JUN 05, 2024 Director Airport E-Sig: Report: [facility], [place], [place] STUDY: Treadmill Exercise SPECT Tc-99m myoview [...] performed with tomographic and three-dimensional reconstructions with Innovectra NM/CT 640 system. The patient performed treadmill [...] data sets in addition to the conventional ubf-wccuactirtm-tcckclnzn images. Both filtered back projection and iterative [...] ventricular cavity. 4. SPECT images: Attenuation-corrected and fqm-axjuuepnuqs-ngvnwyrry SPECT images were evaluated. SPECT images demonstrate normal myocardial perfusion. There is a medium size, mild intensity defect located in the spmso-jp-hzklre inferior myocardium . The defect is fixed [...] BY: Kerri Mena MD, Cardiology Attending [facility] May 15, 2024 09:57 AM CHEST TWO(2) VIEW PA&LAT: ERIK MISHRA [id number] -1945 M Exm Date: MAY 15, 2024@09:57 Req Phys: CYNDI STEINBERG Loc: DEANNE PACT PHONE LULU (Req'g Img Loc: [facility] RADIOLOGY Service: Unknown [facility] [place] [address] (Case [id number] COMPLETE)CHEST TWO(2) VIEW PA&LAT (RAD Detailed) CPT:63861 Reason for Study: dyspnea Clinical History: Report Status: Verified Date Reported: MAY 17, 2024 Date Verified: MAY 17, 2024 Director Airport E-Sig: Report: CHEST TWO(2) VIEW PA&LAT, 05/15/2024 10:02 AM EST INDICATION: dyspnea COMPARISON: April 16, 2024 Impression: Calcified granuloma right lung apex. No edema or pneumonia. No pleural effusion or pneumothorax. Heart size normal. No acute osseous abnormality. Primary Diagnostic Code: NO ALERT REQUIRED Primary Interpreting Staff: KAILYN STEELE, Staff Physician Verified by tool crib manager for KAILYN STEELE /KAILYN AVILES [facility] Apr 16, 2024 01:47 PM SHOULDER-LEFT 2 OR MORE VIEWS: ERIK MISHRA [id number] -1945 M Exm Date: APR 16, 2024@13:47 Req Phys: LUPE MILES Loc: DEANNE ORTHO/ATT3/CD (Req'g Loc) Img Loc: CDD RADIOLOGY Service: [place] [address] (Case [id number] COMPLETE) SHOULDER-LEFT 2 OR MORE VIEWS (RAD Detailed) CPT:78883 Reason for Study: LEFT SHOULDER PAIN Clinical History: Report Status: Verified Date Reported: APR 17, 2024 Date Verified: APR 17, 2024 Director Airport E-Sig: Report: SHOULDER-LEFT 2 OR MORE VIEWS, 04/16/2024 3:06 PM EST INDICATION: LEFT SHOULDER PAIN COMPARISON: None Impression: No acute fracture or malalignment. Mild glenohumeral and AC joint degenerative change. Primary Diagnostic Code: NO ALERT REQUIRED Primary Interpreting Staff: ALFONZO STEELE, Staff Physician Verified by tool crib manager for ALFONZO STEELE /[facility]ZO [facility] Apr 16, 2024 01:47 PM CHEST SINGLE(1) VIEW: ERIK MISHRA [id number] -1945 M Exm Date: APR 16, 2024@13:47 Req Phys: ERIK KIM Loc: ED/7A-4PM (Req'g Loc) Img Loc: CDD RADIOLOGY Service: [place] [address] (Case [id number] COMPLETE) CHEST SINGLE(1) VIEW (RAD Detailed) CPT:50688 Proc Modifiers : PORTABLE EXAM Reason for Study: WEAKNESS, COUGH Clinical History: Report Status: Verified Date Reported: APR 17, 2024 Date Verified: APR 17, 2024 Director Airport E-Sig: Report: CHEST SINGLE(1) VIEW, 04/16/2024 3:06 PM EST INDICATION: WEAKNESS, COUGH COMPARISON: February 10, 2023 FINDINGS: Support apparatus: None. Heart/Mediastinum: Normal size and contours. Lungs/Pleura: Patchy basilar opacities. No pleural effusion or pneumothorax. Upper abdomen: Unremarkable. Bones/Soft tissues: No acute abnormality. Impression: Bibasilar atelectasis or infiltration. Primary Diagnostic Code: SIGNIFICANT ABNORMALITY, ATTN NEEDED Primary Interpreting Staff: ALFONZO STEELE, Staff Physician Verified by tool crib manager for ALFONZO STEELE /LAURA STEELE,ALFONZO DELGADO-D [facility] Encounter Notes: All associated encounter notes This section contains the clinical notes associated to the Encounter. Date/Time Encounter Note(s) Provider Source May 06, 2024 10:31 AM MENTAL HEALTH NOTE : LOCAL TITLE: BHIP PSYCHOTHERAPY NOTE STANDARD TITLE: MENTAL HEALTH NOTE DATE OF NOTE: MAY 06, 2024@10:31 ENTRY DATE: MAY 06, 2024@10:35:59 AUTHOR: BENITEZ DUNN EXP COSIGNER: URGENCY: STATUS: COMPLETED BHIP PSYCHOTHERAPY NOTE Has ADDENDA Date of Session: MAY 06, 2024 Duration of Session: 55 min Session Number: 4 Diagnosis Addressed During Session: PTSD, chronic Session [...] homicidal ideation, intent, or plans. C-SSRS Screening Steele-Suicide Severity Rating Scale (C-SSRS Screener) 1. Over the past month, have you wished you were or wished you could go to sleep and not wake up? No 2. Over the past month, have you had any actual thoughts of killing yourself? No 3. Over the past month, have you been thinking about how you might do this? Response not required due to responses to other questions. 4. Over the past month, have you had these thoughts and had some intention of acting on them? Response not required due to responses to other questions. 5. Over the past month, have you started to work out or worked out the details of how to kill yourself? Response not required due to responses to other questions. 6. If yes, at any time in [...] was this within the past 3 months? Response not required due to responses to other questions. Assessment Data: Whole Health Interventions Session Content: MR. Mishra reports having successfully made it through the Holidays and annerversary of his 's with drinking or becoming depressed. He continues to experience the loss of friends and family secondary to illness and age related issues. Has experienced some significant physical health problems since New Years. Seen in ED for cornary issues and low magnesium level. Thinks he is reataining water as he has gained 10# while dieting and has evidence of edema. Being followed by [facility]. Therapeutic Intervention: Provided a supportive environment with reflective listening, normalization and validation. Assessed [place] for symptoms and current stressors. Discussed healthy coping skills to manage stress and sleep. Assessed progress toward goals and ongoing therapeutic needs. Assessed for SI/HI. Encouraged to call crisis line if needed. Patient Response to Treatment: Attentive and cooperative Progress Towards Treatment Goal: Stable Plan and Scheduling Instructions: 2024 @1100 [facility] SW#6 LD Pain management, if needed, is managed by primary care. Reason for Ordering Tests, Consults or Changes in Medications: No new orders or changes indicated at this time /[place]/ Benitez Dunn, SLIDE MACHINE TENDER, INSTRUCTIONAL TECHNOLOGY COORDINATOR, ACSW Licensed Clinical Surg Tech Signed: 05/06/2024 10:48 05/06/2024 ADDENDUM STATUS: COMPLETED scheduled at senior front end engineer for f/u 05/06/24 RTC. PID 06/10/24 vet agreeable/scheduled on 06/10/24 @11am w/sw#6--f2f ltr mailed /[place]/ STACIE DELGADO Signed: 05/06/2024 11:17 BENITEZ DUNN [facility]
--- OUTSIDE RECORDS SUMMARY | 2024-07-24 21:25 | XMS_ITS ---
Author Name [facility] [place] Organization [facility] [place] Address [address] [place] [id number] Care Team Providers Care Picture Copyist Name Role Phone LAURA STEINBERG Primary Care [...] PART A Oct 14, 2009 PART A [id number] Alex GALLEGO PATIENT MEDICARE (WNR) MEDICARE (M) PART B Oct 14, 2009 PART B [id number] Alex GALLEGO PATIENT MEDICARE (WNR) MEDICARE (M) PART A Oct 14, 2009 PART A [id number] Alex GALLEGO PATIENT MEDICARE (WNR) MEDICARE (M) PART B Oct 14, 2009 PART B [id number] [phone] Alex GALLEGO PATIENT MEDICARE (WNR) MEDICARE (M) PART A Oct 14, 2009 PART A [id number] Alex GALLEGO PATIENT MEDICARE (WNR) MEDICARE (M) PART B Oct 14, 2009 PART B [id number] Alex GALLEGO PATIENT Selected Encounter This section includes the information on record at [place] for the Encounter. Date/Time Encounter Type Encounter Description Reason Pro vider Source Jun 24, 2024 12:58 PM Outpatient Encounter ADMIN PAT ACTIVTIES (MASNONCT) I[facility] Encounter Template Text not used by [place] Plan of Treatment: Future Appointments (+ 6 months) and Future Tests (+/- 45 days) The Plan of Treatment section includes future care activities for the patient from all [place] treatmentfacilities. This section includes future appointments and future orders which are active, pending or scheduled. Future Appointments This section includes appointments that were scheduled to occur 6 months from the date of the Encounter, up to a maximum of 20 appointments. The data comes from all [place] treatment facilities. Appointment Date/Time Appointment Type Appointme nt Facility Name Jun 30, 2024 11:00 AM AMBULATORY - NONE [place] [facility] Jun 30, 2024 03:00 PM AMBULATORY - MEDICINE [facility] Jul 01, 2024 09:00 AM AMBULATORY - MEDICINE [facility] Jul 07, 2024 10:00 AM AMBULATORY - PS[facility]CHIATRY [facility] Jul 08, 2024 10:00 AM AMBULATORY - MEDICINE [facility] Jul 10, 2024 08:30 AM AMBULATORY - MEDICINE [facility] Jul 24, 2024 03:00 PM AMBULATORY - PSYCHIATRY [facility] Aug 05, 2024 09:00 AM [facility] Aug 11, 2024 10:00 AM AM[facility] - PS[facility]CHIATRY [facility] Aug 12, 2024 09:00 AM [facility] August 18, 2024 09:00 AM AMBULATORY - SURGERY [facility] [facility] September 02, 2024 08:20 AM AMBULATORY - SURGERY [place] [facility] Oct 01, 2024 09:00 AM AM[facility]ATORY - NONE [place] [facility] Oct 30, 2024 09:00 AM AMBULATORY - PSYCHIATRY [place] [facility] Dec 09, 2024 08:00 AM AMBULATORY - NONE [place] [facility] Lab Results: +/- 30 days of the encounter This section includes the Chemistry and Hematology Lab Results on record with [place] for the patient. Radiology Reports and Pathology Reports are provided separately, in subsequent sections. Lab Results This section contains the Chemistry/Hematology Results that were resulted 30 days before or 30 daysafter the date of the Encounter. Date/Time Source Result Type Result - Unit Interpretation Reference Range Specimen Type Comment Jun 30, 2024 03:27 PM [facility] BNP ([place]) PLASMA Specimen Type: PLASMA Comment: BNP results less than or equal to 100 pg/ml are airport representative of normal values in patients without CHF. BNP results greater than 100 pg/ml are considered abnormal and suggestive of CHF. Higher BNP concentrations in the first 72 hours after Acute Coronary Syndrome are associated with an increased risk of , myocardial infarction and CHF. Ordering Provider: SACHI SAINZ Report Released Date/Time: Jun 30, 2024 03:21 PM Reporting Lab: [address] [address] Performing Lab: [address] [address] BNP ([place]) 22 pg/mL 0-100 Jun 30, 2024 03:27 PM [facility] CBC/PLT BLOOD Specimen Type: BLOOD No comment entered. Ordering Provider: SACHI SAINZ Report Released Date/Time: Jun 30, 2024 03:21 PM Reporting Lab: [address] [address] Performing Lab: [address] [address] WBC 7.2 10*3/uL 5.0-10.0 RBC 4.85 10*6/uL 4.6-6.2 HGB 14.7 g/dL 14.0-18.0 HCT 43.8 42.0-52.0 MCV 90.3 fL 80.0-94.0 MCH 30.3 pg 27.0-31.0 MCHC 33.6 g/dL 32.0-36.0 PLT 235 10*3/uL 150-450 MPV 10.6 fL 9.0-13.1 RDW 14.8 11.0-16.0 NRBC 0.0 0.0-0.0 Jun 30, 2024 03:27 PM [facility] PANEL 1 PLASMA Specimen Type: [...] Jun 30, 2024 03:21 PM Reporting Lab: [facility] [address] [facility] [address] Performing Lab: [facility] [address] [address] CREATININE 1.43 mg/dL H 0.72-1.25 UREA NITROGEN 22 mg/dL 9-25 GLUCOSE 164 mg/dL H 74-100 SODIUM 139 mmol/L 136-145 POTASSIUM 3.7 mmol/L 3.5-5.1 CHLORIDE 102 mmol/L 98-107 CO2 27 mmol/L 22-29 CALCIUM 9.8 mg/dL 8.4-10.2 ANION GAP 10 meq/L 3-19 eGFR (CKD-EPI) 50 Radiology Reports: +/- 30 days of the [...] the Encounter. The data comes from all [place] treatment facilities. Date/Time Radiology Report Provider Source May 29, 2024 05:[address] PERFORMED BY OTHER FACILITY: ERIK GALLEGO [employer] [facility] [facility] [id number] -1945 M Ex Date: MAY 29, 2024@17:13 Req Phys: LAURA STEINBERG Pat Loc: [facility] 1-2 (Req'g Lo Img Loc: OUTSIDE2 LD CT Service: Unknown (Case [id number] COMPLETE) [address] CT PERFORMED BY OTHER FACIL(CT Detailed) CPT:16704 Reason for Study: Exam imported from outside Clinical History: Original Data for Imported Study Patient Name: ERIK GALLEGO Date: 1945 Sex: M Study Date: 05/29/24 Study Time: 05:13:55 Study Description: CT CHEST PE/ABD/PEL W Referring Physician: TAMMI GEE Series 1: 2 CT files, description: PRIVATE INVESTIGATOR SURVEILLANCE Series 2: 216 CT files, description: 5.0mm [...] Diagnostic Code: VERIFIED BY: / *ELECTRONICALLY FILED* [facility] May 27, 2024 08:07 AM MYOVIEW(1): ERIK GALLEGO [id number] -1945 M Exm Date: MAY 27, 2024@08:07 Req Phys: LAURA STEINBERG Pat Loc: [facility] POD PROCESS DEVELOPMENT MANAGER (Req'g Loc) Img Loc: NUCLEAR MEDICINE Service: [place] [address] (Case [id number] COMPLETE) MYOVIEW(1) (NM Detailed) CPT:A9502 Reason for [...] 27, 2024 Date Verified: MAY 27, 2024 Veterinary Milk Specialist E-Sig: Report: STUDY: GXT REPORT: Patient exercised [...] Staff: ANIA ANDRADE APRN, Cardiology Verified by lawyers for ANIA ANDRADE /ANIA ESPINOZA-LOWELL [facility] May 27, 2024 08:07 AM 51835(D) MYOCARDIAL SPECT(MULTIPLE): ERIK GALLEGO [id number] -1945 M Ex Date: MAY 27, 2024@08:07 Req Phys: MARYANLAURA Jovanny Landry Loc: [facility] POD PROCESS DEVELOPMENT MANAGER (Req'g Loc) Img Loc: NUCLEAR MEDICINE Service: [place] [address] THIS IS AN AMENDED REPORT (Case [id number] COMPLETE) 34027(D) MYOCARDIAL SPECT(MULTIPL(NM Detailed) CPT:41563 Proc Modifiers : GXT Reason for Study: [...] 05, 2024 Date Verified: JUN 05, 2024 Veterinary Milk Specialist E-Sig: Report: [place], [place] STUDY: Treadmill Exercise SPECT Tc-99m myoview [...] performed with tomographic and three-dimensional reconstructions with [employer] NM/CT 640 system. The patient performed treadmill [...] data sets in addition to the conventional nrj-jyrztjofzkz-xlejecxmf images. Both filtered back projection and iterative [...] ventricular cavity. 4. SPECT images: Attenuation-corrected and mpl-ovqdbdiduxd-zfzespdfz SPECT images were evaluated. SPECT images demonstrate normal myocardial perfusion. There is a medium size, mild intensity defect located in the lhxxo-fo-tlqjiz inferior myocardium . The defect is fixed [...] Kerri Mena MD, Cardiology Attending /[facility]ERRI LONG-D [facility] May 27, 2024 08:07 AM TC-99M FROM NON-HIGHLY ENRICHED URANIUM SOURCE: ERIK GALLEGO [id number] -1945 M Exm Date: MAY 27, 2024@08:07 Req Phys: LAURA STEINBERG Pat Loc: [facility] POD PROCESS DEVELOPMENT MANAGER (Req'g Loc) Img Loc: NUCLEAR MEDICINE Service: [place] [address] THIS IS AN AMENDED REPORT (Case [id number] COMPLETE) TC-99M FROM NON-HIGHLY ENRICHED U(NM Detailed) [...] 05, 2024 Date Verified: JUN 05, 2024 Veterinary Milk Specialist E-Sig: Report: [facility], [place], [place] STUDY: Treadmill Exercise SPECT Tc-99m myoview [...] performed with tomographic and three-dimensional reconstructions with [employer] NM/CT 640 system. The patient performed treadmill [...] data sets in addition to the conventional nff-bofglfrftfr-zgvkfsvuw images. Both filtered back projection and iterative [...] ventricular cavity. 4. SPECT images: Attenuation-corrected and nir-zhbpfredarb-eoaelknun SPECT images were evaluated. SPECT images demonstrate normal myocardial perfusion. There is a medium size, mild intensity defect located in the tazdi-oi-bonbci inferior myocardium . The defect is fixed [...] Kerri Mena MD, Cardiology Attending /[facility] LONG-CDD [facility] May 27, 2024 08:07 AM MYOVIEW(2): ERIK GALLEGO [id number] -1945 M Exm Date: MAY 27, 2024@08:07 Req Phys: LAURA STEINBERG Gris Loc: [facility] POD PROCESS DEVELOPMENT MANAGER (Req'g Loc) Img Loc: NUCLEAR MEDICINE Service: [place] [address] THIS IS AN AMENDED REPORT (Case [id number] COMPLETE) MYOVIEW(2) (NM Detailed) CPT:A9502 Reason for [...] 05, 2024 Date Verified: JUN 05, 2024 Veterinary Milk Specialist E-Sig: Report: [facility], [place], [place] STUDY: Treadmill Exercise SPECT Tc-99m myoview [...] performed with tomographic and three-dimensional reconstructions with [employer] NM/CT 640 system. The patient performed treadmill [...] data sets in addition to the conventional jxy-gusnrhpeznz-ypylkyeoz images. Both filtered back projection and iterative [...] ventricular cavity. 4. SPECT images: Attenuation-corrected and rkf-wgperqkjmea-ctdtncjja SPECT images were evaluated. SPECT images demonstrate normal myocardial perfusion. There is a medium size, mild intensity defect located in the hyjwi-mn-uamutr inferior myocardium . The defect is fixed [...] Code: NO ALERT REQUIRED Primary Interpreting Staff: ERIAC JOHNSON MD, CARDIOLOGY ATTENDING VERIFIED BY: Kerri Mena MD, Cardiology Attending /[facility] May 27, 2024 08:07 AM CARD. STRESS TEST W/TREADMILL/...: KITCHEN,ERIK ARNO [id number] -1945 M Exm Date: MAY 27, 2024@08:07 Req Phys: LAURA STEINBERG Loc: [facility] POD PROCESS DEVELOPMENT MANAGER (Req'g Loc) Img Loc: NUCLEAR MEDICINE Service: [place] [address] THIS IS AN AMENDED REPORT (Case [id number] COMPLETE) CARD. STRESS TEST W/TREADMILL/...(NM Detailed) CPT:56374 Reason for Study: SEE CLINICAL HISTORY Clinical [...] 05, 2024 Date Verified: JUN 05, 2024 Veterinary Milk Specialist E-Sig: Report: [facility], [place], [place] STUDY: Treadmill Exercise SPECT Tc-99m myoview [...] performed with tomographic and three-dimensional reconstructions with [employer] NM/CT 640 system. The patient performed treadmill [...] data sets in addition to the conventional uul-vabpbsnbwtf-oagkrqrla images. Both filtered back projection and iterative [...] ventricular cavity. 4. SPECT images: Attenuation-corrected and zuk-dnnqqgezefz-xvujphvux SPECT images were evaluated. SPECT images demonstrate normal myocardial perfusion. There is a medium size, mild intensity defect located in the zqzcz-qx-fbvdur inferior myocardium . The defect is fixed [...] Kerri Mena MD, Cardiology Attending /[facility] LONG[facility] Pathology Reports: +/- 30 days of [...] the Encounter. The data comes from all [place] treatment facilities. Date/Time Pathology Report Provider Source Jul 10, 2024 09:41 AM LR SURGICAL PATHOL OGY REPORT: LOCAL TITLE: LR SURGICAL PATHOLOGY REPORT DATE OF NOTE: JUL 10, 2024@09:41:15 ENTRY DATE: JUL 10, 2024@09:41:15 AUTHOR: JOE LEUNG COSIGNER: URGENCY: STATUS: COMPLETED $APHDR Reporting Lab: [facility] [[facility]# [id number]] [address] [place] [phone] - - - - - - - [...] left earlobe and consists of an unoriented, qub-eytu-nceansw, yellow/white shave of skin measuring 0.5 x 0.4 x 0.2 cm. A rough papule is identified over the skin surface measuring 0.4 x 0.3 cm. The cut surface is yellow/white and grossly unremarkable. The cut surface is inked blue. The specimen is bisected to reveal a white solid interior. The specimen is submitted entirely in a single cassette. 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 /[place]/ JOE LEUNG pathologist Signed Jul 10, 2024@09:41 Performing Laboratory: Surgical Pathology Report Performed By: [facility] [CLIA# [id number]] [address] [place] [address] $FTR - - - - - - - - - - - - - - - - - - - - - - - - - - - - - - - - - - - - - - - - (End of report) JOE LEUNG MD [facility] Date Jul 10, 2024 - - - - - - - - - - - - - - - - - - - - - - - - - - - - - - - - - - - - - - - - SANAMONIQUEERIK MCKINLEY STANDARD FORM 515 ID:[id number] SEX:M :1945 AGE: 78 LOC:PATH PCP: Laura Steinberg MD /[place]/ JOE LEUNG pathologist Signed: 07/10/2024 09:41 JOE LEUNG [facility] Encounter Notes: All associated encounter notes This section contains the clinical notes associated to the Encounter. Date/Time Encounter Note(s) Provider Source Jun 24, 2024 12:58 PM PRIMARY CARE ADMIN ISTRATIVE NOTE: LOCAL TITLE: PC ADMINISTRATIVE NOTE STANDARD TITLE: PRIMARY CARE ADMINISTRATIVE NOTE DATE OF NOTE: JUN 24, 2024@12:58 ENTRY DATE: JUN 24, 2024@12:58:37 AUTHOR: MELY HORNE EXP COSIGNER: URGENCY: STATUS: COMPLETED PC ADMINISTRATIVE NOTE Has ADDENDA 6 page fax from [facility] came through-Placed in team merlyn /[place]/ MELY HORNE [employer] Signed: 06/24/2024 13:01 06/24/2024 ADDENDUM STATUS: COMPLETED Received fax from: [facility] Pages including cover: 5 Placed in providers mail box. /[place]/ YAHAIRA QUIJANO [employer] Signed: 06/24/2024 16:34 MELY HORNE [facility]
--- OUTSIDE RECORDS SUMMARY | 2024-07-24 21:25 | XMS_ITS | Encounter Summary ---
Author Name [facility] [place] [facility] [facility] [place] Address [address] [place] [address] Care Team Providers Care Director Sales Support Name Role Phone CYNDI STEINBERG Primary Care Provider Unavailabl e Insurance [...] PART A Oct 14, 2009 PART A [id number] Alex GALLEGO PATIENT MEDICARE (WNR) MEDICARE (M) PART B Oct 14, 2009 PART B [id number] Alex GALLEGO PATIENT MEDICARE (WNR) MEDICARE (M) PART A Oct 14, 2009 PART A [id number] Alex GALLEGO PATIENT MEDICARE (WNR) MEDICARE (M) PART B Oct 14, 2009 PART B [id number] Alex GALLEGO PATIENT MEDICARE (WNR) MEDICARE (M) PART A Oct 14, 2009 PART A [id number] Alex GALLEGO PATIENT MEDICARE (WNR) MEDICARE (M) PART B Oct 14, 2009 PART B [id number] Alex GALLEGO PATIENT Selected Encounter This section includes the information on record at [place] for the Encounter. Date/Time Encounter Type Encounter Description Reason Provider Source Apr 25, 2024 08:30 AM OFFICE O/P EST MOD 30 MIN OPHTHALMOLOGY ICD-10-CM H35.371 Puckering of macula, right eye FIGUEROAZUHAIR B IHE Encounter Template Text not used by [place] Assessments - Encounter Diagnoses This section includes the primary and secondary diagnoses documented for the Encounter. Date/Time Primary/Secondary Diagnosis Diagnosis Name Provider Source Apr 25, 2024 08:50 AM PRIMARY Puckering of macula, right eye FIGUEROA,ZUHAIR B [place] Apr 25, 2024 08:50 AM SECONDARY Nexdtve age-related mclr degn, left eye, intermed dry stage FIGUEROA,ZUHAIR B [place] Apr 25, 2024 08:50 AM SECONDARY Nexdtve age-related mclr degn, right eye, intermed dry stage FIGUEROA,ZUHAIR B [place] Apr 25, 2024 08:50 AM SECONDARY Type 2 diabetes mellitus without complications FIGUEROA,ZUHAIR B [place] Apr 25, 2024 08:50 AM SECONDARY Vitreomacular adhesion, right eye FIGUEROA,ZUHAIR B [place] Plan of Treatment: Future Appointments (+ 6 months) and Future Tests (+/- 45 days) The Plan of Treatment section includes future care activities for the patient from all [place] treatmentfacilities. This section includes future appointments and future orders which are active, pending or scheduled. Future Appointments This section includes appointments that were scheduled to occur 6 months from the date of the Encounter, up to a maximum of 20 appointments. The data comes from all [place] treatment facilities. Appointment Date/Time Appointment Type Appointme nt Facility Name Apr 29, 2024 10:00 AM AMBULATORY - MEDICINE [facility] May 06, 2024 10:00 AM AMBULATORY - PSYCHIATRY [facility] May 07, 2024 10:00 AM [facility] May 15, 2024 10:30 AM [facility] May 20, 2024 08:00 AM [facility] May 20, 2024 10:00 AM [facility] - MEDICINE [facility] May 27, 2024 08:00 AM [facility] Jun 06, 2024 08:00 AM [facility] [facility] Jun 10, 2024 08:50 AM [facility] - MEDICINE [facility] Jun 10, 2024 11:00 AM [facility] Jun 20, 2024 09:00 AM [facility] [place] Jun 24, 2024 08:00 AM [facility] [place] [facility] [place] Jun 30, 2024 11:00 AM [facility] [place] Jun 30, 2024 03:00 PM AMBULATORY - MEDICINE [facility] Jul 01, 2024 09:00 AM AM[facility]ULATORY - MEDICINE [facility] Jul 07, 2024 10:00 AM [facility] Jul 08, 2024 10:00 AM [facility]ATORY - MEDICINE [facility] Jul 10, 2024 08:30 AM AMBULATORY - MEDICINE [facility] Jul 24, 2024 03:00 PM AMBULATORY - PSYCHIATRY [facility] Aug 05, 2024 09:00 AM AMBULATORY - MEDICINE [facility] Lab Results: +/- 30 days of the encounter This section includes the Chemistry and Hematology Lab Results on record with [place] for the patient. Radiology Reports and Pathology [...] May 07, 2024 10:35 AM Reporting Lab: [address] [address] Performing Lab: [address] [address] MAGNESIUM 1.8 mg/dL 1.6-2.6 May 15, 2024 09:46 AM [facility]AS[facility] Specimen Type: PLASMA Comment: BNP results less than or equal to 100 pg/ml are national sales representative of normal values in patients without CHF. BNP results greater than 100 pg/ml are considered abnormal and suggestive of CHF. Higher BNP concentrations in the first 72 hours after Acute Coronary Syndrome are associated with an increased risk of , myocardial infarction and CHF. Ordering Provider: CYNDI STEINBERG Report Released Date/Time: May 07, 2024 10:35 AM Reporting Lab: [address] [address] Performing Lab: [address] [address] BNP (STODDARD) 29 pg/mL 0-100 May 15, 2024 09:46 AM [facility] PANEL 1 PLASMA Specimen Type: PLASM [...] May 07, 2024 10:35 AM Reporting Lab: [address] [address] Performing Lab: [place] [id number] CREATININE 1.54 mg/dL H 0.72-1.25 UREA NITROGEN 20 mg/dL 9-25 GLUCOSE 151 mg/dL H 74-100 SODIUM 140 mmol/L 136-145 POTASSIUM 4.0 mmol/L 3.5-5.1 CHLORIDE 104 mmol/L 98-107 CO2 28 mmol/L 22-29 CALCIUM 9.7 mg/dL 8.4-10.2 ANION GAP 8 meq/L 3-19 eGFR (CKD-EPI) 46 Apr 29, 2024 10:55 AM [facility] URINALYSIS URINE Specimen Type : URINE Comment: Microscopic not indicated Ordering Provider: ERIK KIM Report Released Date/Time: Apr 16, 2024 01:19 PM Reporting Lab: [address] [address] Performing Lab: [address] [address] URINE COLOR Colorless Colorless-Yellow APPEARANCE Clear Clear UROBILINOGEN Normal mg/dL Normal URINE BLOOD Negative Negative URINE BILIRUBIN Negative Negative URINE KETONES Negative mg/dL Negative URINE PROTEIN Negative mg/dL Negative-Tr john URINE PH 7.0 4.5-8.0 URINE NITRITE Negative Negative URINE LEUKOCYTE EST Negative Negative SPECIFIC GRAVITY 1.005 1.005-1.030 URINE GLUCOSE Negative mg/dL Negative Apr 29, 2024 10:49 AM [facility] LACTIC ACID PLASMA Specimen Type : PLASMA Comment: ~2 hours from now Ordering Provider: ERIK KIM Report Released Date/Time: Apr 16, 2024 01:19 PM Reporting Lab: [address] [address] Performing Lab: [facility] [address] [facility] [address] LACTIC ACID 1.4 mmol/L 0.5-2.2 Apr 29, 2024 10:49 AM [facility] HIGH SENSITIVITY TROPONIN I PLASMA Specimen [...] I information resource can be reached in [facility] in the Tools menu, under the Education tab. Ordering Provider: ERIK KIM Report Released Date/Time: Apr 16, 2024 01:19 PM Reporting Lab: [facility] [address] [facility] [address] Performing Lab: [address] [address] HIGH SENSITIVITY TROPONIN I <4 4-35 Apr 29, 2024 10:49 AM [facility] MAGNESIUM PLASMA Specimen Type: PLASM A Comment: [...] Apr 29, 2024 10:33 AM Reporting Lab: [address] [address] Performing Lab: [address] [address] MAGNESIUM 1.7 mg/dL 1.6-2.6 Apr 29, 2024 10:49 AM [facility] PANEL 1 PLASMA Specimen Type: PLASM [...] Apr 29, 2024 10:33 AM Reporting Lab: [address] [address] Performing Lab: [address] [address] CREATININE 1.35 mg/dL H 0.72-1.25 UREA NITROGEN 11 mg/dL 9-25 GLUCOSE 114 mg/dL H 74-100 SODIUM 141 mmol/L 136-145 POTASSIUM 4.2 mmol/L 3.5-5.1 CHLORIDE 105 mmol/L 98-107 CO2 29 mmol/L 22-29 CALCIUM 9.7 mg/dL 8.4-10.2 ANION GAP 7 meq/L 3-19 eGFR (CKD-EPI) 53 Apr 16, 2024 01:17 PM [facility] COVID-19 AND FLU/RSV DIAGNOSTIC PANEL NASOPH [...] Food and Drug Administration's Emergency Use Authorization. [employer] Genexpert (596) Ordering Provider: ERIK KIM Report Released Date/Time: Apr 16, 2024 01:13 PM Reporting Lab: [address] [address] Performing Lab: [address] [address] COVID-19 PCR (FLUVID) Negative Negative FLU A PCR (FLUVID) Negative Negative FLU B PCR (FLUVID) Negative Negative RSV PCR (FLUVID) Negative Negative Apr 16, 2024 12:08 PM [facility] LACTIC ACID PLASMA Specimen Type : PLASMA No comment entered. Ordering Provider: ERIK KIM Report Released Date/Time: Apr 16, 2024 01:19 PM Reporting Lab: [address] [address] Performing Lab: [address] [place] [address] LACTIC ACID 2.8 mmol/L H 0.5-2.2 Apr 16, 2024 12:08 PM [facility] PROTHROMBIN TIME PLASMA Specimen Ty pe: PLASMA No comment entered. Ordering Provider: ERIK KIM Report Released Date/Time: Apr 16, 2024 01:19 PM Reporting Lab: [address] [address] Performing Lab: [address] [address] PT PATIENT 13.2 s 11.7-14.4 INTERNATIONAL NORMALIZED RATIO 1.02 0 .87-1.14 Apr 16, 2024 12:08 PM [facility] PHOSPHORUS PLASMA Specimen Type: PLASM A [...] Apr 16, 2024 01:19 PM Reporting Lab: [address] [address] Performing Lab: [address] [address] PHOSPHORUS 2.5 mg/dL 2.3-4.7 Apr 16, 2024 12:08 PM [facility] MAGNESIUM PLASMA Specimen Type: PLASM A [...] I information resource can be reached in [facility] in the Tools menu, under the Education [...] Apr 16, 2024 01:19 PM Reporting Lab: [address] [address] Performing Lab: [address] [address] MAGNESIUM 1.5 mg/dL L 1.6-2.6 Apr 16, 2024 12:08 PM [facility] CK TOTAL PLASMA Specimen Type: PLASM [...] I information resource can be reached in [facility] in the Tools menu, under the Education [...] Apr 16, 2024 01:19 PM Reporting Lab: [facility] [address] [facility] [address] Performing Lab: [address] [address] CK TOTAL 64 U/L 30-200 Apr 16, 2024 12:08 PM [facility] HIGH SENSITIVITY TROPONIN I PLASMA Specimen [...] I information resource can be reached in [facility] in the Tools menu, under the Education [...] Apr 16, 2024 01:19 PM Reporting Lab: [address] [address] Performing Lab: [address] [address] HIGH SENSITIVITY TROPONIN I <4 4-35 Apr 16, 2024 12:08 PM [facility] BNP (STODDARD) PLASMA Specimen Type : PLASMA Comment: BNP results less than or equal to 100 pg/ml are national sales representative of normal values in patients without CHF. BNP results greater than 100 pg/ml are considered abnormal and suggestive of CHF. Higher BNP concentrations in the first 72 hours after Acute Coronary Syndrome are associated with an increased risk of , myocardial infarction and CHF. Ordering Provider: ERIK KIM Report Released Date/Time: Apr 16, 2024 01:38 PM Reporting Lab: [address] [address] Performing Lab: [address] [address] BNP (STODDARD) <10 pg/mL 0-100 Apr 16, 2024 12:08 PM [facility] AUTOMATED DIFF BLOOD Specimen Type : BLOOD Comment: ~STAT Ordering Provider: ERIK KIM Report Released Date/Time: Apr 16, 2024 01:19 PM Reporting Lab: [address] [address] Performing Lab: [address] [address] A-LYMPH % 14.8 L 24.0-44.0 A-MONO % 4.7 0.1-6.0 A-GRAN % 79.5 H 42.0-75.0 A-LYMPH # 0.94 10*3/uL L 1.20-3.40 A-MONO # 0.30 10*3/uL 0.00-0.60 A-GRAN # 5.07 10*3/uL 1.40-6.50 A-BASO % 0.2 0.0-3.0 A-BASO # 0.01 10*3/uL 0.00-0.20 A-EOS % 0.3 0.0-10.0 A-EOS # 0.02 10*3/uL 0.00-0.70 A-IG % 0.5 0.0-0.5 A-IG # 0.03 10*3/uL 0.00-0.06 Apr 16, 2024 12:08 PM [facility] CBC/PLT BLOOD Specimen Type: BLOOD Comment: ~STAT Ordering Provider: ERIK KIM Report Released Date/Time: Apr 16, 2024 01:19 PM Reporting Lab: [address] [address] Performing Lab: [address] [address] WBC 6.4 10*3/uL 5.0-10.0 RBC 5.02 10*6/uL 4.6-6.2 HGB 15.0 g/dL 14.0-18.0 HCT 44.3 42.0-52.0 MCV 88.2 fL 80.0-94.0 MCH 29.9 pg 27.0-31.0 MCHC 33.9 g/dL 32.0-36.0 PLT 208 10*3/uL 150-450 MPV 11.1 fL 9.0-13.1 RDW 14.1 11.0-16.0 NRBC 0.0 0.0-0.0 Apr 16, 2024 12:08 PM [facility] PANEL 5 PLASMA Specimen Type: PLASM [...] Apr 16, 2024 01:19 PM Reporting Lab: [address] [address] Performing Lab: [address] [address] CREATININE 1.48 mg/dL H 0.72-1.25 UREA NITROGEN [...] PHOS 72 U/L 40-150 eGFR (CKD-EPI) 48 Radiology Reports: +/- 30 days of the [...] the Encounter. The data comes from all [place] treatment facilities. Date/Time Radiology Report Provider Source May 15, 2024 09:57 AM CHEST TWO(2) VIEW PA&LAT: ERIK GALLEGO [id number] -1945 M Exm Date: MAY 15, 2024@09:57 Req Phys: CYNDI STEINBERG Loc: [facility] PACT PHONE LULU (Req'g Img Loc: [facility] RADIOLOGY Service: [place] [address] (Case [id number] COMPLETE)CHEST TWO(2) VIEW PA&LAT (RAD Detailed) CPT:01369 Reason for Study: dyspnea Clinical History: Report Status: Verified Date Reported: MAY 17, 2024 Date Verified: MAY 17, 2024 Compressor Stations Superintendent E-Sig: Report: CHEST TWO(2) VIEW PA&LAT, 05/15/2024 10:02 AM EST INDICATION: dyspnea COMPARISON: April 16, 2024 Impression: Calcified granuloma right lung apex. No edema or pneumonia. No pleural effusion or pneumothorax. Heart size normal. No acute osseous abnormality. Primary Diagnostic Code: NO ALERT REQUIRED Primary Interpreting Staff: KAILYN STEELE, Staff Physician Verified by terrazzo finisher for KAILYN STEELE /KAILYN [facility]ES [facility] Apr 16, 2024 01:47 PM CHEST SINGLE(1) VIEW: ERIK GALLEGO [id number] -1945 M Exm Date: APR 16, 2024@13:47 Req Phys: ERIK KIM Loc: ED/7A-4PM (Req'g Loc) Img Loc: [facility] RADIOLOGY Service: [place] [address] (Case [id number] COMPLETE) CHEST SINGLE(1) VIEW (RAD Detailed) CPT:68739 Proc Modifiers : PORTABLE EXAM Reason for Study: WEAKNESS, COUGH Clinical History: Report Status: Verified Date Reported: APR 17, 2024 Date Verified: APR 17, 2024 Compressor Stations Superintendent E-Sig: Report: CHEST SINGLE(1) VIEW, 04/16/2024 3:06 PM EST INDICATION: WEAKNESS, COUGH COMPARISON: February 10, 2023 FINDINGS: Support apparatus: None. Heart/Mediastinum: Normal size and contours. Lungs/Pleura: Patchy basilar opacities. No pleural effusion or pneumothorax. Upper abdomen: Unremarkable. Bones/Soft tissues: No acute abnormality. Impression: Bibasilar atelectasis or infiltration. Primary Diagnostic Code: SIGNIFICANT ABNORMALITY, ATTN NEEDED Primary Interpreting Staff: ALFONZO STEELE, Staff Physician Verified by terrazzo finisher for ALFONZO STEELE /ALFONZO DEGROOT[facility] Apr 16, 2024 01:47 PM SHOULDER-LEFT 2 OR MORE VIEWS: ERIK GALLEGO [id number] -1945 M Exm Date: APR 16, 2024@13:47 Req Phys: LUPE MILES Loc: [facility] ORTHO/ATT3/CD (Req'g Loc) Img Loc: [facility] RADIOLOGY Service: [place] [address] (Case [id number] COMPLETE) SHOULDER-LEFT 2 OR MORE VIEWS (RAD Detailed) CPT:28706 Reason for Study: LEFT SHOULDER PAIN Clinical History: Report Status: Verified Date Reported: APR 17, 2024 Date Verified: APR 17, 2024 Compressor Stations Superintendent E-Sig: Report: SHOULDER-LEFT 2 OR MORE VIEWS, 04/16/2024 3:06 PM EST INDICATION: LEFT SHOULDER PAIN COMPARISON: None Impression: No acute fracture or malalignment. Mild glenohumeral and AC joint degenerative change. Primary Diagnostic Code: NO ALERT REQUIRED Primary Interpreting Staff: ALFONZO STEELE Staff Physician Verified by terrazzo finisher for ALFONZO STEELE /ALFONZO [facility]GROOT-[facility] Encounter Notes: All associated encounter notes This section contains the clinical notes associated to the Encounter. Date/Time Encounter Note(s) Provider Source Apr 25, 2024 09:06 AM SURGERY SCANNED NO TE: LOCAL TITLE: OPHTHALMOLOGY SCANNING NOTE STANDARD TITLE: SURGERY SCANNED NOTE DATE OF NOTE: APR 25, 2024@09:06 ENTRY DATE: APR 28, 2024@09:06:41 AUTHOR: BRYON AUGUST EXP COSIGNER: URGENCY: STATUS: COMPLETED The scanned document may be viewed in [employer]. /peyton/ BRYON AUGUST REAMING MACHINE TENDER Signed: 04/28/2024 09:06 BR[facility]ON AUGUST-CDD [facility] Apr 25, 2024 08:46 AM OPHTHALMOLOGY RESI DENT NOTE: LOCAL TITLE: OPHTHALMOLOGY CLINIC PHYSICIAN NOTE STANDARD TITLE: OPHTHALMOLOGY RESIDENT NOTE DATE OF NOTE: APR 25, 2024@08:46 ENTRY DATE: APR 25, 2024@08:46:30 AUTHOR: ZUHAIR FIGUEROA EXP COSIGNER: URGENCY: STATUS: COMPLETED Please see scanned note for details of this examination. 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 # PCIOL -obs # DM- no retinopathy Plan: obs F/U: 6 months surgical retina with dilate/OCT OU, or sooner if problems * in VA column= without correction * in IOP column= didn't take most recent dose or otherwise non-adherent = Not Addressed at this visit /peyton/ ZUHAIR FIGUEROA OPHTHALMOLOGY SURGERY ATTENDING Signed: 04/25/2024 08:50 ZUHAIR FIGUEROA-[facility] Apr 25, 2024 08:19 AM OPHTHALMOLOGY NOTE : LOCAL TITLE: OPHTHALMOLOGY NURSE/TECH CLINIC NOTE STANDARD TITLE: OPHTHALMOLOGY NOTE DATE OF NOTE: APR 25, 2024@08:19 ENTRY DATE: APR 25, 2024@08:19:27 AUTHOR: DENNIS BALLESTEROS EXP COSIGNER: URGENCY: STATUS: COMPLETED 1yr retina f/u Date VA:OD ^ VA:OS IOP Notes 04/25/24 30+1/ni ^ 50+/30 04/13/23-1/ -- ^ 70-05/15- Refraction 04/13/23 OD: +0.25 sph +3.00 OS: -0.50 +1.25 @165 +3.00 Right Eye: VA: 03/28/22([id number]); 09/26/22 (25) 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 Glasses Rx do not match Mrx. Refracted today to 20/20 with different axis from current glasses. Will dispense new Mrx as current glasses were made incorrectly. 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 # PCIOL -obs # DM- no retinopathy Plan: New Mrx dispensed F/U: 1 year retina with dilate/OCT OU, or sooner if problems * in VA column= without correction * in IOP column= didn't take most recent dose or otherwise non-adherent = Not Addressed at this visit /peyton/ DENNIS BALLESTEROS Ophthalmology tech Signed: 04/25/2024 08:28 DENNIS BALLESTER[facility]INGTON-CD[facility] Apr 25, 2024 08:18 AM SURGERY NURSING NO TE: LOCAL TITLE: SURGERY CLINIC INTAKE NOTE STANDARD TITLE: SURGERY NURSING NOTE DATE OF NOTE: APR 25, 2024@08:18 ENTRY DATE: APR 25, 2024@08:18:43 AUTHOR: DENNIS BALLESTEROS EXP COSIGNER: URGENCY: STATUS: COMPLETED The patient was given a list of his/her medications, instructed to review and discuss any changes or problems with their provider. Patient advised to carry a list of current medications and any allergies with them in the event of emergency situations. Allergies: local and remote LISINOPRIL, FOSINOPRIL, PERCOCET No Remote Allergy/ADR Data available for this patient Medication Reconciliation MRR1 - Med Reconciliation INCLUDED IN THIS LIST: Alphabetical list of active outpatient prescriptions dispensed from this [place] (local) and dispensed from another [place] or [place] facility (remote) as well as inpatient orders (local pending and active), local clinic medications, locally documented non-VA medications, and local prescriptions that have or been discontinued in the past 90 days. Non-VA Meds Last Documented On: Data not found NOTE The display of VA prescriptions dispensed from another VA or DoD facility (remote) is limited to active outpatient prescription entries matched to National Drug File at the originating site and may not include some items such as investigational drugs, compounds, etc. NOT INCLUDED IN THIS LIST: Medications self-entered by the patient into personal health records (i.e. [email or web address]) are NOT included in this list. Non-VA medications documented outside this VA, remote inpatient orders (regardless of status) and remote clinic medications are NOT included in this list. The patient and provider must always discuss medications the patient is taking, regardless of where the medication was dispensed or obtained. OUTPT ALOH 160/MG CARB 105MG CHEW TAB (Status = Active) CHEW 1 TABLET BY MOUTH AFTER MEALS NEEDED FOR INDIGESTION/REFLUX Rx# [id number] Last Released: 02/06/24 Qty/Days Supply: 100/30 Rx Expiration Date: 10/26/24 Refills Remainin Indication: FOR STOMACH OUTPT CEPHALEXIN 500MG CAP (Status = ) TAKE ONE CAPSULE BY MOUTH THREE TIMES A DAY FOR SKIN OR SOFT TISSUE INFECTION Rx# [id number] Last Released: 02/28/24 Qty/Days Supply: 03/11 Rx Expiration Date: 03/29/24 Refills Remainin Indication: FOR SKIN OR SOFT TISSUE INFECTION OUTPT CHOLECALCIF 25MCG (D3-1,000UNIT) TAB (Status = Active/Suspended) TAKE FOUR TABLETS BY MOUTH DAILY FOR VITAMIN D SUPPLEMENT Rx# [id number] Last Released: 02/19/24 Qty/Days Supply: 400/90 Rx Expiration Date: 02/14/25 Refills Remainin OUTPT CLINDAMYCIN PHOSPHATE 1% TOP GEL (Status = Discontinued) APPLY SMALL AMOUNT TO AFFECTED AREA TWICE A DAY FOR INFECTION Rx# [id number] Last Released: 04/24/23 Qty/Days Supply: 60/30 Rx Expiration Date: 03/15/24 Refills Remainin Indication: FOR INFECTION OUTPT CLOTRIMAZOLE 1% TOP SOLN (Status = Active) APPLY SMALL AMOUNT TO AFFECTED AREA TWICE A DAY FOR FUNGAL INFECTION Rx# [id number] Last Released: 02/05/24 Qty/Days Supply: Rx Expiration Date: 07/13/24 Refills Remainin Indication: FOR FUNGAL INFECTION OUTPT CYANOCOBALAMIN 1000MCG TAB (Status = Discontinued) TAKE ONE TABLET BY MOUTH DAILY FOR VITAMIN B12 SUPPLEMENT Rx# [id number] Last Released: 12/03/23 Qty/Days Supply: 90 Rx Expiration Date: 07/16/24 Refills Remainin Indication: FOR VITAMIN B12 SUPPLEMENT OUTPT CYANOCOBALAMIN 1000MCG TAB (Status = Active/Suspended) TAKE ONE TABLET BY MOUTH DAILY FOR VITAMIN B12 SUPPLEMENT Rx# [id number] Last Released: 03/03/24 Qty/Days Supply: 90 Rx Expiration Date: 02/14/25 Refills Remainin Indication: FOR VITAMIN B12 SUPPLEMENT OUTPT DICLOFENAC NA 1% TOP GEL (Status = Active/Suspended) APPLY SMALL AMOUNT TO AFFECTED AREA EVERY 6 HOURS NEEDED FOR SHOULDER PAIN Rx# [id number] Last Released: 02/18/24 Qty/Days Supply: 300/90 Rx Expiration Date: 02/14/25 Refills Remainin OUTPT FLUTICASONE PROP 50MCG 120D NASAL INHL (Status = Active/Suspended) USE 2 SPRAYS IN EACH NOSTRIL DAILY FOR NASAL ALLERGY Rx# [id number] Last Released: 02/19/24 Qty/Days Supply: 3 Rx Expiration Date: 02/14/25 Refills Remainin OUTPT GABAPENTIN 300MG CAP (Status = Discontinued) TAKE ONE CAPSULE BY MOUTH EVERY MORNING AND TAKE ONE CAPSULE AT NOON AND TAKE TWO CAPSULES EVERY EVENING FOR PAIN Rx# [id number] Last Released: 02/07/24 Qty/Days Supply: 120/30 Rx Expiration Date: 10/23/24 Refills Remainin Indication: FOR NERVE PAIN OUTPT GABAPENTIN 300MG CAP (Status = Active) TAKE ONE CAPSULE BY MOUTH EVERY MORNING AND TAKE ONE CAPSULE AT NOON AND TAKE TWO CAPSULES EVERY EVENING FOR PAIN Rx# [id number] Last Released: 03/18/24 Qty/Days Supply: 120/30 Rx Expiration Date: 02/14/25 Refills Remainin Indication: FOR NERVE PAIN OUTPT HCTZ 12.5MG/LOSARTAN 100MG TAB (Status = Discontinued) TAKE 1 TABLET BY MOUTH DAILY FOR BLOOD PRESSURE/HEART Rx# [id number] Last Released: 12/01/23 Qty/Days Supply: 90/90 Rx Expiration Date: 07/16/24 Refills Remainin Indication: FOR BLOOD PRESSURE/HEART OUTPT HCTZ 12.5MG/LOSARTAN 100MG TAB (Status = Discontinued) TAKE 1 TABLET BY MOUTH DAILY FOR BLOOD PRESSURE/HEART Rx# [id number] Last Released: 03/03/24 Qty/Days Supply: 90/ Rx Expiration Date: 02/14/25 Refills Remainin Indication: FOR BLOOD PRESSURE/HEART OUTPT LIDOCAINE 5% 5IN X 6IN PATCH (Status = Active) APPLY 2 PATCHES TO SKIN DAILY FOR PAIN -LEAVE ON 12 HOURS, THEN REMOVE FOR 12 HOURS Rx# [id number] Last Released: 03/19/24 Qty/Days Supply: 60/30 Rx Expiration Date: 02/14/25 Refills Remainin Indication: FOR PAIN OUTPT LORATADINE 10MG TAB (Status = Discontinued) TAKE ONE TABLET BY MOUTH DAILY FOR ALLERGIES Rx# [id number] Last Released: 11/30/23 Qty/Days Supply: 90 Rx Expiration Date: 07/16/24 Refills Remainin OUTPT LORATADINE 10MG TAB (Status = Active/Suspended) TAKE ONE TABLET BY MOUTH DAILY FOR ALLERGIES Rx# [id number] Last Released: 03/03/24 Qty/Days Supply: 90/ Rx Expiration Date: 02/14/25 Refills Remainin OUTPT LOSARTAN 100MG TAB (Status = Active) TAKE ONE TABLET BY MOUTH DAILY FOR BLOOD PRESSURE STOPPING THE HCTZ Rx# [id number] Last Released: 04/16/24 Qty/Days Supply: 90/ Rx Expiration Date: 07/15/24 Refills Remainin Indication: FOR BLOOD PRESSURE OUTPT MAGNESIUM OXIDE 420MG TAB (Status = Active) TAKE ONE TABLET BY MOUTH TWICE A DAY FOR SUPPLEMENT Rx# [id number] Last Released: 04/16/24 Qty/Days Supply: 200/ Rx Expiration Date: 07/15/24 Refills Remainin Indication: FOR SUPPLEMENT OUTPT METFORMIN HCL 1000MG TAB (Status = Active/Suspended) TAKE ONE TABLET BY MOUTH TWICE A DAY FOR DIABETES Rx# [id number] Last Released: 02/19/24 Qty/Days Supply: 180/ Rx Expiration Date: 02/14/25 Refills Remainin OUTPT MIRTAZAPINE 15MG TAB (Status = Discontinued) TAKE ONE-HALF TABLET BY MOUTH AT BEDTIME FOR SLEEP Rx# [id number] Last Released: 04/05/24 Qty/Days Supply: 45 Rx Expiration Date: 12/27/24 Refills Remainin Indication: FOR SLEEP OUTPT MIRTAZAPINE 15MG TAB (Status = Active/Suspended) TAKE ONE-HALF TABLET BY MOUTH AT BEDTIME FOR SLEEP Rx# [id number] Last Released: Qty/Days Supply: Rx Expiration Date: 04/16/25 Refills Remainin Indication: FOR SLEEP OUTPT MUPIROCIN 2% OINT (Status = Active) APPLY SMALL AMOUNT TO AFFECTED AREA DAILY TO PREVENT INFECTION -APPLY DAILY TO TREATMENT SITES AFTER CLEANING. THIS IS A TOPICAL ANTIBIOTIC. Rx# [id number] Last Released: 03/18/24 Qty/Days Supply: Rx Expiration Date: 01/22/25 Refills Remainin Indication: TO PREVENT INFECTION OUTPT PANTOPRAZOLE NA 40MG EC TAB (Status = Active) TAKE ONE TABLET BY MOUTH TWICE A DAY 30 MINUTES BEFORE A MEAL FOR STOMACH -TAKE ON AN EMPTY STOMACH. Rx# [id number] Last Released: 11/30/23 Qty/Days Supply: 180 Rx Expiration Date: 06/26/24 Refills Remainin Indication: FOR STOMACH OUTPT PIOGLITAZONE HCL 30MG TAB (Status = Active/Suspended) TAKE ONE TABLET BY MOUTH DAILY FOR DIABETES Rx# [id number] Last Released: 03/03/24 Qty/Days Supply: 90 Rx Expiration Date: 02/14/25 Refills Remainin Indication: FOR BLOOD SUGAR OUTPT PRAZOSIN HCL 1MG CAP (Status = Active) TAKE ONE CAPSULE BY MOUTH AT BEDTIME FOR NIGHTMARES. TAKE IN ADDITION TO 5 MG CAPSULE FOR TOTAL OF 6 MG AT BEDTIME Rx# [id number] Last Released: 04/23/24 Qty/Days Supply: 90 Rx Expiration Date: 07/14/24 Refills Remainin Indication: FOR NIGHTMARES. OUTPT PRAZOSIN HCL 5MG CAP (Status = Discontinued) TAKE ONE CAPSULE BY MOUTH AT BEDTIME FOR NIGHTMARES Rx# [id number] Last Released: 04/05/24 Qty/Days Supply: 90 Rx Expiration Date: 12/27/24 Refills Remainin Indication: FOR NIGHTMARES OUTPT PRAZOSIN HCL 5MG CAP (Status = Active/Suspended) TAKE ONE CAPSULE BY MOUTH AT BEDTIME FOR NIGHTMARES Rx# [id number] Last Released: Supply: Rx Expiration Date: 04/16/25 Refills Remainin Indication: FOR NIGHTMARES OUTPT SERTRALINE HCL 100MG TAB (Status = Discontinued) TAKE ONE AND ONE-HALF TABLETS BY MOUTH EVERY MORNING FOR MOOD Rx# [id number] Last Released: 03/19/24 Qt Supply: Rx Expiration Date: 12/27/24 Refills Remainin Indication: FOR MOOD OUTPT SERTRALINE HCL 100MG TAB (Status = Active/Suspended) TAKE ONE AND ONE-HALF TABLETS BY MOUTH EVERY MORNING FOR MOOD Rx# [id number] Last Released: Supply: Rx Expiration Date: 04/16/25 Refills Remainin Indication: FOR MOOD OUTPT TRAMADOL HCL 50MG TAB (Status = ) TAKE ONE TABLET BY MOUTH EVERY 6 HOURS NEEDED FOR PAIN Rx# [id number] Last Released: 01/31/24 Qt Supply: 02/09 Rx Expiration Date: 03/01/24 Refills Remainin Indication: FOR PAIN OUTPT TRIAMCINOLONE ACETONIDE 0.1% OINT (Status = Active) APPLY SMALL AMOUNT TO AFFECTED AREA TWICE A DAY FOR SKIN RASH Rx# [id number] Last Released: 02/07/24 Qty/Days Supply: Rx Expiration Date: 11/29/24 Refills Remainin Indication: FOR SKIN RASH SUPPLIES OUTPT ACCU-CHEK GUIDE (GLUCOSE) TEST STRIP (Status = Active/Suspended) USE 1 STRIP TO TEST BLOOD SUGAR 3-4 TIMES WEEKLY Rx# [id number] Last Released: 02/19/24 Qty/Days Supply: 50/90 Rx Expiration Date: 02/14/25 Refills Remainin /[place]/ DENNIS BALLESTEROS Ophthalmology tech Signed: 04/25/2024 08:19 DENNIS BALLESTEROS-[facility]
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
--- OUTSIDE RECORDS SUMMARY | 2024-07-24 21:25 | XMS_ITS | Encounter Summary ---
Author Name [facility] Organization [facility] [place] Address [address] [place] [id number] Care Team Providers Care Jboss Architect Name Role Phone LAURA MCKEON Primary Care [...] PART A Oct 14, 2009 PART A [id number] [phone] Alex GALLEGO PATIENT MEDICARE (WNR) MEDICARE (M) PART B Oct 14, 2009 PART B [id number] [phone] Alex GALLEGO PATIENT MEDICARE (WNR) MEDICARE (M) PART B Oct 14, 2009 PART B [id number] Alex GALLEGO PATIENT MEDICARE (WNR) MEDICARE (M) PART A Oct 14, 2009 PART A [id number] [phone] Alex GALLEGO PATIENT MEDICARE (WNR) MEDICARE (M) PART A Oct 14, 2009 PART A [id number] [phone] Alex GALLEGO PATIENT MEDICARE (WNR) MEDICARE (M) PART B Oct 14, 2009 PART B [id number] Alex GALLEGO PATIENT Selected Encounter This section includes the information on record at [place] for the Encounter. Date/Time Encounter Type Encounter Description Reason Provider Source Feb 14, 2024 08:30 AM OFFICE O/P EST MOD 30 MIN PRIMARY CARE/MEDICINE ICD-10-CM E11.40 Type 2 diabetes mellitus with diabetic neuropathy, LAURA Diaz IHJennifer Encounter Template Text not used by [place] Assessments - Encounter Diagnoses This section includes the primary and secondary diagnoses documented for the Encounter. Date/Time Primary/Secondary Diagnosis Diagnosis Name Provider Source Feb 16, 2024 04:09 PM PRIMARY Type 2 diabetes mellitus with diabetic neuropathy, LAURA Diaz [facility] Feb 16, 2024 04:09 PM SECONDARY Encounter for immunization PRETTY LUO [facility] Feb 16, 2024 04:09 PM SECONDARY Hypertensive chronic kidney disease w stg 1-4/unsp chr kdny LAURA MCKEON [facility] Feb 16, 2024 04:09 PM SECONDARY skilled nursing (current) use of oral hypoglycemic drugs LAURA MCKEON [facility] Plan of Treatment: Future Appointments (+ 6 months) and Future Tests (+/- 45 days) The Plan of Treatment section includes future care activities for the patient from all [place] treatmentfacilities. This section includes future appointments and future orders which are active, pending or scheduled. Future Appointments This section includes appointments that were scheduled to occur 6 months from the date of the Encounter, up to a maximum of 20 appointments. The data comes from all [place] treatment facilities. Appointment Date/Time Appointment Type Appointme nt Facility Name Feb 27, 2024 02:00 PM [facility]ORY - NONE [place] [facility] Feb 28, 2024 01:30 PM AMBULATORY - SURGERY [place] [facility] Feb 28, 2024 02:30 PM AMBULATORY - REHAB MEDICIN E [facility] Feb 29, 2024 09:20 AM [facility]BULATORY - SURGERY [place] [facility] Mar 04, 2024 09:00 AM [facility], [facility]24 01:[facility] Mar 18, 2024 08:30 AM AMBULATORY - REHAB MEDICIN E [facility] Mar 18, 2024 10:00 AM AMBULATORY - SURGERY [place] [facility] Mar 28, 2024 08:00 AM [facility]ORY - NONE [place] [facility] Apr 01, 2024 10:00 AM AMBULATORY - PS[facility]CHIATRY [facility] Apr 15, 2024 09:00 AM AM[facility]ORY - PS[facility]CHIATRY [facility] Apr 16, 2024 11:35 AM AMBULATORY - MEDICINE [facility] Apr 25, 2024 08:30 AM [facility] Apr 29, 2024 10:00 AM AMBULATORY - MEDICINE [facility] May 06, 2024 10:00 AM AM[facility]UL[facility] PS[facility]CHIATRY [facility] May 07, 2024 10:00 AM AMBULATORY - MEDICINE [facility] May 15, 2024 10:30 AM AMBULATORY - REHAB MEDICIN E [facility] May 20, 2024 08:00 AM [facility] May 20, 2024 10:00 AM AMBULATORY - MEDICINE [facility] May 27, 2024 08:00 AM AMBULATORY - NONE [facility] Lab Results: +/- 30 days of the encounter This section includes the Chemistry and Hematology Lab Results on record with [place] for the patient. Radiology Reports and Pathology Reports are provided separately, in subsequent sections. Lab Results This section contains the Chemistry/Hematology Results that were resulted 30 days before or 30 daysafter the date of the Encounter. Date/Time Source Result Type Result - Unit Interpretation Reference Range Specimen Type Comment Feb 14, 2024 10:41 AM [facility] MICROALBUMIN/CREAT RATIO URINE Specimen Type: URINE No comment entered. Ordering Provider: LAURA MCKEON Report Released Date/Time: Feb 14, 2024 09:03 AM Reporting Lab: [facility] [address] [facility] [address] Performing Lab: [address] [address] CREATININE 133.0 mg/dL MICROALBUMIN QUANT 5.8 mg/L 0.0-30.0 .MICROALBUMIN/CREA RATIO 4.4 ug/mg{creat} Feb 14, 2024 10:41 AM [facility] DRUG SCREEN EXPANDED IN-HOUSE URINE Specimen [...] Feb 14, 2024 09:03 AM Reporting Lab: [address] [address] Performing Lab: [address] [address] TETRAHYDROCANNABINOL SCREEN NEG Cuto ff < 50 [...] < 1 Feb 14, 2024 10:19 AM [facility] LIPID PROFILE PLASMA Specimen Type: PLASM [...] Feb 14, 2024 09:03 AM Reporting Lab: [address] [address] Performing Lab: [address] [address] CHOLESTEROL 161 mg/dL 0-199 TRIGLYCERIDE 84 mg/dL 0-149 HDL CHOLESTEROL 54 mg/dL 40-69 DIRECT LDL CHOL. 95 mg/dL 0-100 Feb 14, 2024 10:19 AM [facility] GLYCOHEMOGLOBIN BLOOD Specimen Type: BLOOD Comment: [place] guidelines for A1c interpretation: Glycemic control targets are based on Shared Decision Making between clinicians and patients. Criteria used to establish an A1c target recommendation can be found at https://www.nm.gov/qualityandpatientsafety/ and include the use of result accuracy [...] 8.73 and 9.27. Ref: https://ngsp.org/CAPdata.asp. The in-house aaTag-MyRoll D-100 analyzer has a historical CV <= 2%. Contact the laboratory for further performance characteristics of this assay. Ordering Provider: LAURA MCKEON Report Released Date/Time: Feb 14, 2024 09:03 AM Reporting Lab: [address] [address] Performing Lab: [address] [address] GLYCOHEMOGLOBIN 6.0 4.4-6.4 Feb 14, 2024 10:19 [facility]AS[facility] Specimen Type: [...] Feb 14, 2024 09:03 AM Reporting Lab: [address] [address] Performing Lab: [address] [address] CREATININE 1.38 mg/dL H 0.72-1.25 UREA NITROGEN [...] (CKD-EPI) 52 Feb 14, 2024 10:19 AM [facility] PLASMA Specimen Type: PLASM A Comment: [...] Feb 14, 2024 09:03 AM Reporting Lab: [address] [address] Performing Lab: [address] [address] TSH 1.1076 m[IU]/mL 0.3500-4.9400 Feb 14, 2024 10:19 AM [facility] B12 VITAMIN PLASMA Specimen Type: PLASM [...] Feb 14, 2024 09:03 AM Reporting Lab: [address] [address] Performing Lab: [address] [address] B12 VITAMIN 761 pg/mL 213-816 Feb 14, 2024 10:19 AM [facility] CBC/PLT BLOOD Specimen Type: BLOOD No comment entered. Ordering Provider: LAURA MCKEON Report Released Date/Time: Feb 14, 2024 09:03 AM Reporting Lab: [address] [address] Performing Lab: [address] [address] WBC 6.7 10*3/uL 5.0-10.0 RBC 5.17 10*6/uL 4.6-6.2 HGB 15.8 g/dL 14.0-18.0 HCT 47.1 42.0-52.0 MCV 91.1 fL 80.0-94.0 MCH 30.6 pg 27.0-31.0 MCHC 33.5 g/dL 32.0-36.0 PLT 257 10*3/uL 150-450 MPV 10.5 fL 9.0-13.1 RDW 14.4 11.0-16.0 NRBC 0.0 0.0-0.0 Feb 14, 2024 10:19 AM [facility] 25-OH VITAMIN D SERUM Specime n Type: [...] Feb 14, 2024 09:03 AM Reporting Lab: [address] [address] Performing Lab: [address] [address] 25-OH VITAMIN D 42.5 ng/mL 20.0-50.0 Jan 31, 2024 11:09 AM [facility] GLUCOSE-HAND MONITOR CAPILLARY Specime n Type: CAPILLARY Comment: $ Test performed by: [id number] Meter #: [id number] Ordering Provider: PELON CHEUNG Report Released Date/Time: Feb 04, 2024 07:19 AM Reporting Lab: [address] [address] Performing Lab: [address] [address] GLUCOSE-HAND MONITOR 125 mg/dL H 71-99 Vital Signs: All taken on the encounter date This section contains inpatient and outpatient Vital Signs collected on the date of the Encounter. Date/Time Temperature Pulse Blood Pressure Respiratory Rate SP02 Pain Height Weight Body Mass Index Source Feb 14, 2024 09:51 AM 75 138/73 98 2 [place] [facility] Feb 14, 2024 08:25 AM 97.4 74 124/74 16 97 0 202 29 [place] [facility] Immunizations: All administered on the encounter date This section contains immunizations associated to the Encounter. Immunization Series Date Issued Administered By Site Reaction Lot Number CVX Code Drug Special Class Welder Comment(s) Source INFLUENZA, HIGH-DOSE, TRIVALENT, PF Feb 14, 2024 PRETTY LUO LEFT DELTO ID [id number] SANOFI PASTEUR ADMINISTERE D AT [place], [place] [facility] Social History: Smoking Status (Most current) and Tobacco Use (All prior to encounter date) This section includes the most current, and the historical, smoking and tobacco- related health factors from the [place] facility where the Encounter took place. Current Smoking Status This section includes the most current smoking, or tobacco-related health factor, from the [place] facility where the Encounter took place. Date/Time Current Smoking Status Comment Edis baker Feb 14, 2024 08:30 AM VA-TOBACCO FORMER USER [facility] Tobacco Use History This section includes a history of the smoking, or tobacco-related health factors, that were collected on or before the date of the Encounter. The data comes from the [place] facility where the Encounter took place. Date/Time Smoking Status/Tobacco Use Comment F acility Feb 14, 2024 08:30 AM VA-TOBACCO QUIT 15 YRS OR MORE [facility] Jan 10, 2023 11:00 AM VA-TOBACCO NEVER USED [facility] Dec 09, 2021 08:00 AM VA-TOBACCO NEVER USED [facility] Dec 10, 2020 09:30 AM VA-TOBACCO NEVER USED [facility] May 13, 2019 09:09 AM VA-TOBACCO NEVER USED [facility] Apr 03, 2018 09:45 AM VA-TOBACCO NEVER USED [facility] May 07, 2017 10:31 AM V9 LIFETIME NON-USER OF TOBACCO [facility] Apr 06, 2016 10:18 AM V9 LIFETIME NON-USER OF TOBACCO [facility] Jan 26, 2015 08:52 AM V9 LIFETIME NON-USER OF TOBACCO [facility] August 18, 2013 08:27 AM V9 LIFETIME NON-USER OF TOBACCO [facility] Sep 18, 2012 08:39 AM V9 LIFETIME NON-USER OF TOBACCO [facility] Jan 19, 2012 10:42 AM V9 LIFETIME NON-USER OF TOBACCO [facility] Jan 19, 2012 10:42 AM V9 TOBACCO OFFERED [facility] September 13, 2010 10:28 AM V9 LIFETIME NON-USER OF TOBACCO [facility] September 13, 2010 10:28 AM V9 TOBACCO OFFERED [facility] Sep 21, 2006 12:59 PM V9 LIFETIME NON-USER OF TOBACCO [facility] Jan 29, 2006 07:52 AM HF V9 LIFETIME NON-SMOKER [facility] Dec 30, 2004 08:05 AM HF V9 LIFETIME NON-SMOKER [facility] Dec 23, 2003 02:58 PM HF V9 LIFETIME NON-SMOKER [facility] Pathology Reports: +/- 30 days [...] the Encounter. The data comes from all [facility] facilities. Date/Time Pathology Report Provider Source Feb 05, 2024 03:20 PM LR SURGICAL PATHOL OGY REPORT: LOCAL TITLE: LR SURGICAL PATHOLOGY REPORT DATE OF NOTE: FEB 05, 2024@15:20:14 ENTRY DATE: FEB 05, 2024@15:20:14 AUTHOR: ROSS DOBSON COSIGNER: URGENCY: STATUS: COMPLETED $APHDR Reporting Lab: [facility] [CLIA# [id number]] [address] [place], [place] [id number] - - - - - - - [...] - - - - $TEXT Submitted by: ORAngela Date obtained: Jan 31, 2024 14:21 - [...] submitted in one cassette. CPT CODE - 02788 MICROSCOPIC EXAM/DIAGNOSIS: Right long finger cyst, excision: -Findings consistent with digital mucous cyst. /peyton/ Ross Dobson MD Pathologist Signed Feb 05, 2024@15:20 Performing Laboratory: Surgical Pathology Report Performed By: [facility] [[facility]# [id number]] [address] [place] [id number] $FTR - - - - - - - - - - - - - - - - - - - - - - - - - - - - - - - - - - - - - - - - (End of report) ROSS DOBSON MD [facility] Date Feb 05, 2024 - - - - - - - - - - - - - - - - - - - - - - - - - - - - - - - - - - - - - - - - ERIK GALLEGO STANDARD FORM 515 ID:[id number] SEX:M :1945 AGE: 78 LOC:PATH PCP: Laura Mckeon MD /peyton/ Ross Dobson MD Pathologist Signed: 02/05/2024 15:20 ROSS DOBSON-D [facility] Jan 31, 2024 12:13 PM LR SURGICAL PATHOL OGY REPORT: LOCAL TITLE: LR SURGICAL PATHOLOGY REPORT DATE OF NOTE: JAN 31, 2024@12:13:13 ENTRY DATE: JAN 31, 2024@12:13:13 AUTHOR: JUDY SIGALA EXP COSIGNER: URGENCY: STATUS: COMPLETED $APHDR Reporting Lab: [facility] [CLIA# [id number]] [address] [place] [address] - - - - - - - [...] MOHS EXCISION BIOPSY ACCESSION NO. 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 CPT CODE: 24098 I ACTED BOTH THE SURGEON AND THE PATHOLOGIST FOR THIS CASE. PLEASE SEE CORRESPONDING MOHS NOTE IN CPRS AND MOHS MAP SCANNED TO [employer]. /es/ JUDY SIGALA Chief, Dermatology Signed Jan 31, 2024@12:13 Performing Laboratory: Surgical Pathology Report Performed By: [facility] [IA# [id number]] [facility] [place] [address] $FTR - - - - - - - - - - - - - - - - - - - - - - - - - - - - - - - - - - - - - - - - (End of report) JUDY SIGALA MD [facility] Date Jan 22, 2024 - - - - - - - - - - - - - - - - - - - - - - - - - - - - - - - - - - - - - - - - ERIK GALLEGO STANDARD FORM 515 ID:[id number] SEX:M :1945 AGE: 78 LOC:DERM PCP: Laura Mckeon MD /peyton/ JUDY SIGALA Chief, Dermatology Signed: 01/31/2024 12:13 JUDY SIGALA-D [facility] Encounter Notes: All associated encounter notes This section contains the clinical notes associated to the Encounter. Date/Time Encounter Note(s) Provider Source Feb 16, 2024 04:11 PM PRIMARY CARE LETTE RS: LOCAL TITLE: PC LETTER TEST RESULTS STANDARD TITLE: PRIMARY CARE LETTERS DATE OF NOTE: FEB 16, 2024@16:11 ENTRY DATE: FEB 16, 2024@16:11:30 AUTHOR: LAURA MCKEON EXP COSIGNER: URGENCY: STATUS: COMPLETED [facility] [address] [place] [address] Mr. ERIK GALLEGO [address] [place] [id number] FEB 16, 2024 Dear Mr. ERIK GALLEGO Your glycohemoglobin or 3-month diabetes lab is normal at 6.0. Your creatinine or kidney lab is mildly elevated but stable at 1.38. Other labs were normal/stable or within acceptable ranges. Please call us if you have questions or problems. You can reach us at (toll free number) or [phone] (local number). If you are enrolled in [employer], and utilize those services, you may prefer to contact us by secure message. Thank you for your service to our Country. We are honored to be able to provide medical care to you. Recent labwork Collection DT Specimen Test Name Result Units Ref Range 02/14/2024 10:41 URINE !! AMPHETAMINE SCR NEG Ref: Cutoff < 1000 !! BARBITURATES SCR NEG Ref: Cutoff < 200 !! BENZOD NEG Ref: Cutoff < 200 !! COCAINu NEG Ref: Cutoff < 300 !! METHADONE SCR NEG Ref: Cutoff < 300 !! OPIATES SCR NEG Ref: Cutoff < 300 !! OXYCODONE SCR NEG Ref: Cutoff < 200 !! THC SCR NEG Ref: Cutoff < 50 !! BUPRENORPHINE NEG Ref: Cutoff < 5 !! FENTANYL SCREEN NEG Ref: Cutoff < 1 02/14/2024 10:41 URINE CREATININE 133.0 mg/dL MICROALBUMIN FABIOLA 5.8 mg/L 0.0 - 30.0 WY/CREA 4.4 ug/mg Crea 02/14/2024 10:19 SERUM !! 25-OH VITAMIN D 42.5 ng/mL 20.0 - 50.0 02/14/2024 10:19 BLOOD !! GLYCOHEMOGLOBIN 6.0 % 4.4 - 6.4 02/14/2024 10:19 BLOOD WBC 6.7 K/cmm 5.0 - 10.0 RBC 5.17 M/cmm 4.6 - 6.2 HGB 15.8 g/dL 14.0 - 18.0 HCT 47.1 % 42.0 - 52.0 MCV 91.1 fL 80.0 - 94.0 MCH 30.6 pg 27.0 - 31.0 MCHC 33.5 g/dL 32.0 - 36.0 RDW 14.4 % 11.0 - 16.0 PLT 257 K/cmm 150 - 450 MPV 10.5 fL 9.0 - 13.1 NRBC 0.0 % 0.0 - 0.0 02/14/2024 10:19 PLASMA!! CHOLESTEROL 161 mg/dL 0 - 199 !! TRIGLYCERIDE 84 mg/dL 0 - 149 !! HDL CHOLESTEROL 54 mg/dL 40 - 69 !! DIRECT LDL CHOL. 95 mg/dL 0 - 100 !! SODIUM 142 mmol/L 136 - 145 !! POTASSIUM 4.7 mmol/L 3.5 - 5.1 !! CHLORIDE 103 mmol/L 98 - 107 !! CO2 29 mmol/L 22 - 29 !! ANION GAP 10.0 mEq/L 3 - 19 !! GLUCOSE 142 H mg/dL 74 - 100 !! UREA NITROGEN 19 mg/dL 9 - 25 !! CREATININE 1.38 H mg/dL 0.72 - 1.25 !! eGFR (CKD-EPI) 52 SEE EVAL !! CALCIUM 10.8 H mg/dL 8.4 - 10.2 !! TOTAL PROTEIN 7.5 g/dL 6.4 - 8.3 !! ALBUMIN 4.6 g/dL 3.5 - 5.2 !! TOTAL BILIRUBIN 1.3 H mg/dL 0.2 - 1.2 !! AST 24 U/L 5 - 34 !! ALT 22 U/L 0 - 55 !! ALK PHOS 75 U/L 40 - 150 !! B12 VITAMIN 761 pg/mL 213 - 816 !! TSH 1.1076 mIU/mL 0.3500 - 4.9400 Sincerely, /peyton/ Laura Mckeon MD Primary Care Physician Patient Record Number [id number] LAURA MCKEON [facility] Feb 16, 2024 04:10 PM MEDICATION MGT NOT E: LOCAL TITLE: OUTPATIENT ESSENTIAL MEDICATION LIST FOR REVIEW (EM STANDARD TITLE: MEDICATION MGT NOTE DATE OF NOTE: FEB 16, 2024@16:10 ENTRY DATE: FEB 16, 2024@16:10:31 AUTHOR: LAURA MCKEON EXP COSIGNER: URGENCY: STATUS: COMPLETED Review of medications include: Patient allergies (Remote and Local) and active and pending prescriptions dispensed from this [place] (local) and dispensed from another [place] or [facility] facility (remote and pending) as well as [...] for this patient ACTIVE OUTPATIENT MEDICATIONS LOCAL/REMOTE ALOH 160/MG CARB 105MG CHEW TAB Directions: CHEW 1 TABLET BY MOUTH AFTER MEALS NEEDED FOR INDIGESTION/REFLUX Quantity: 100 for 30 days Issued: 10/26/23 Filled: 02/04/24 Expires: 10/26/24 Refills: 0 Status: ACTIVE CLOTRIMAZOLE 1% TOP SOLN Directions: APPLY SMALL AMOUNT TO AFFECTED AREA TWICE A DAY FOR FUNGAL INFECTION Quantity: 30 for 30 days Issued: 07/13/23 Filled: 02/04/24 Expires: 07/13/24 Refills: 0 Status: ACTIVE GABAPENTIN 300MG CAP Directions: TAKE ONE CAPSULE BY MOUTH EVERY MORNING AND TAKE ONE CAPSULE AT NOON AND TAKE TWO CAPSULES EVERY EVENING FOR PAIN Quantity: 120 for 30 days Issued: 02/14/24 Filled: 02/24/24 Expires: 02/14/25 Refills: 2 Status: ACTIVE LIDOCAINE 5% 5IN X 6IN PATCH Directions: APPLY 2 PATCHES TO SKIN DAILY FOR PAIN -LEAVE ON 12 HOURS, THEN REMOVE FOR 12 HOURS Quantity: 60 for 30 days Issued: 02/14/24 Filled: 02/14/24 Expires: 02/14/25 Refills: 11 Status: ACTIVE MIRTAZAPINE 15MG TAB Directions: TAKE ONE-HALF TABLET BY MOUTH AT BEDTIME FOR SLEEP Quantity: 45 for 90 days Issued: 12/27/23 Filled: 01/24/24 Expires: 12/27/24 Refills: 1 Status: ACTIVE MUPIROCIN 2% OINT Directions: APPLY SMALL AMOUNT TO AFFECTED AREA DAILY TO PREVENT INFECTION -APPLY DAILY TO TREATMENT SITES AFTER CLEANING. THIS IS A TOPICAL ANTIBIOTIC. Quantity: 22 for 30 days Issued: 01/22/24 Filled: 01/22/24 Expires: 01/22/25 Refills: 11 Status: ACTIVE PANTOPRAZOLE NA 40MG EC TAB Directions: TAKE ONE TABLET BY MOUTH TWICE A DAY 30 MINUTES BEFORE A MEAL FOR STOMACH -TAKE ON AN EMPTY STOMACH. Quantity: 180 for 90 days Issued: 06/26/23 Filled: 12/13/23 Expires: 06/26/24 Refills: 0 Status: ACTIVE PRAZOSIN HCL 5MG CAP Directions: TAKE ONE CAPSULE BY MOUTH AT BEDTIME FOR NIGHTMARES Quantity: 90 for 90 days Issued: 12/27/23 Filled: 01/24/24 Expires: 12/27/24 Refills: 1 Status: ACTIVE TRAMADOL HCL 50MG TAB Directions: TAKE ONE TABLET BY MOUTH EVERY 6 HOURS NEEDED FOR PAIN Quantity: 20 for 5 days Issued: 01/31/24 Filled: 01/31/24 Expires: 03/01/24 Refills: 0 Status: ACTIVE TRIAMCINOLONE ACETONIDE 0.1% OINT Directions: APPLY SMALL AMOUNT TO AFFECTED AREA TWICE A DAY FOR SKIN RASH Quantity: 30 for 30 days Issued: 11/29/23 Filled: 02/04/24 Expires: 11/29/24 Refills: 0 Status: ACTIVE ACCU-CHEK GUIDE (GLUCOSE) TEST STRIP Directions: USE 1 STRIP TO TEST BLOOD SUGAR 3-4 TIMES WEEKLY Quantity: 50 for 90 days Issued: 02/14/24 Filled: 03/07/24 Expires: 02/14/25 Refills: 3 Status: ACTIVE/SUSP CHOLECALCIF 25MCG (D3-1,000UNIT) TAB Directions: TAKE FOUR TABLETS BY MOUTH DAILY FOR VITAMIN D SUPPLEMENT Quantity: 400 for 90 days Issued: 02/14/24 Filled: 03/07/24 Expires: 02/14/25 Refills: 3 Status: ACTIVE/SUSP CYANOCOBALAMIN 1000MCG TAB Directions: TAKE ONE TABLET BY MOUTH DAILY FOR VITAMIN B12 SUPPLEMENT Quantity: 90 for 90 days Issued: 02/14/24 Filled: 03/16/24 Expires: 02/14/25 Refills: 3 Status: ACTIVE/SUSP DICLOFENAC NA 1% TOP GEL Directions: APPLY SMALL AMOUNT TO AFFECTED AREA EVERY 6 HOURS NEEDED FOR SHOULDER PAIN Quantity: 300 for 90 days Issued: 02/14/24 Filled: 03/07/24 Expires: 02/14/25 Refills: 3 Status: ACTIVE/SUSP FLUTICASONE PROP 50MCG 120D NASAL INHL Directions: USE 2 SPRAYS IN EACH NOSTRIL DAILY FOR NASAL ALLERGY Quantity: 3 for 90 days Issued: 02/14/24 Filled: 03/07/24 Expires: 02/14/25 Refills: 3 Status: ACTIVE/SUSP HCTZ 12.5MG/LOSARTAN 100MG TAB Directions: TAKE 1 TABLET BY MOUTH DAILY FOR BLOOD PRESSURE/HEART Quantity: 90 for 90 days Issued: 02/14/24 Filled: 03/15/24 Expires: 02/14/25 Refills: 3 Status: ACTIVE/SUSP LORATADINE 10MG TAB Directions: TAKE ONE TABLET BY MOUTH DAILY FOR ALLERGIES Quantity: 90 for 90 days Issued: 02/14/24 Filled: 03/15/24 Expires: 02/14/25 Refills: 3 Status: ACTIVE/SUSP METFORMIN HCL 1000MG TAB Directions: TAKE ONE TABLET BY MOUTH TWICE A DAY FOR DIABETES Quantity: 180 for 90 days Issued: 02/14/24 Filled: 03/07/24 Expires: 02/14/25 Refills: 3 Status: ACTIVE/SUSP PIOGLITAZONE HCL 30MG TAB Directions: TAKE ONE TABLET BY MOUTH DAILY FOR DIABETES Quantity: 90 for 90 days Issued: 02/14/24 Filled: 03/09/24 Expires: 02/14/25 Refills: 3 Status: ACTIVE/SUSP SERTRALINE HCL 100MG TAB Directions: TAKE ONE AND ONE-HALF TABLETS BY MOUTH EVERY MORNING FOR MOOD Quantity: 135 for 90 days Issued: 12/27/23 Filled: 03/26/24 Expires: 12/27/24 Refills: 0 Status: ACTIVE/SUSP No remote medications found. PENDING OUTPATIENT MEDICATIONS (LOCAL/REMOTE): No local medications found. No remote medications found. ACTIVE NONVA MEDICATIONS (LOCAL): No local medications found. OUTPATIENT MEDICATIONS (LOCAL)WITHIN 90 DAYS: ACCU-CHEK GUIDE (GLUCOSE) TEST STRIP Directions: USE 1 STRIP TO TEST BLOOD SUGAR 3-4 TIMES WEEKLY Quantity: 50 for 90 days Issued: 02/14/24 Filled: 03/07/24 Expires: 02/14/25 Refills: 3 Status: ACTIVE/SUSP CHOLECALCIF 25MCG (D3-1,000UNIT) TAB Directions: TAKE FOUR TABLETS BY MOUTH DAILY FOR VITAMIN D SUPPLEMENT Quantity: 400 for 90 days Issued: 02/14/24 Filled: 03/07/24 Expires: 02/14/25 Refills: 3 Status: ACTIVE/SUSP CYANOCOBALAMIN 1000MCG TAB Directions: TAKE ONE TABLET BY MOUTH DAILY FOR VITAMIN B12 SUPPLEMENT Quantity: 90 for 90 days Issued: 02/14/24 Filled: 03/16/24 Expires: 02/14/25 Refills: 3 Status: ACTIVE/SUSP DICLOFENAC NA 1% TOP GEL Directions: APPLY SMALL AMOUNT TO AFFECTED AREA EVERY 6 HOURS NEEDED FOR SHOULDER PAIN Quantity: 300 for 90 days Issued: 02/14/24 Filled: 03/07/24 Expires: 02/14/25 Refills: 3 Status: ACTIVE/SUSP FLUTICASONE PROP 50MCG 120D NASAL INHL Directions: USE 2 SPRAYS IN EACH NOSTRIL DAILY FOR NASAL ALLERGY Quantity: 3 for 90 days Issued: 02/14/24 Filled: 03/07/24 Expires: 02/14/25 Refills: 3 Status: ACTIVE/SUSP HCTZ 12.5MG/LOSARTAN 100MG TAB Directions: TAKE 1 TABLET BY MOUTH DAILY FOR BLOOD PRESSURE/HEART Quantity: 90 for 90 days Issued: 02/14/24 Filled: 03/15/24 Expires: 02/14/25 Refills: 3 Status: ACTIVE/SUSP LORATADINE 10MG TAB Directions: TAKE ONE TABLET BY MOUTH DAILY FOR ALLERGIES Quantity: 90 for 90 days Issued: 02/14/24 Filled: 03/15/24 Expires: 02/14/25 Refills: 3 Status: ACTIVE/SUSP METFORMIN HCL 1000MG TAB Directions: TAKE ONE TABLET BY MOUTH TWICE A DAY FOR DIABETES Quantity: 180 for 90 days Issued: 02/14/24 Filled: 03/07/24 Expires: 02/14/25 Refills: 3 Status: ACTIVE/SUSP PIOGLITAZONE HCL 30MG TAB Directions: TAKE ONE TABLET BY MOUTH DAILY FOR DIABETES Quantity: 90 for 90 days Issued: 02/14/24 Filled: 03/09/24 Expires: 02/14/25 Refills: 3 Status: ACTIVE/SUSP SERTRALINE HCL 100MG TAB Directions: TAKE ONE AND ONE-HALF TABLETS BY MOUTH EVERY MORNING FOR MOOD Quantity: 135 for 90 days Issued: 12/27/23 Filled: 03/26/24 Expires: 12/27/24 Refills: 0 Status: ACTIVE/SUSP CEFUROXIME AXETIL 500MG TAB Directions: TAKE ONE TABLET BY MOUTH TWICE A DAY FOR EAR OR THROAT INFECTION Quantity: 20 for 10 days Issued: 10/31/23 Filled: 10/31/23 Expires: 11/30/23 Refills: 0 Status: DOXYCYCLINE HYCLATE 100MG TAB Directions: TAKE ONE TABLET BY MOUTH TWICE A DAY FOR SKIN OR EYE CONDITION Quantity: 14 for 7 days Issued: 10/27/23 Filled: 10/27/23 Expires: 11/26/23 Refills: 0 Status: HC 1%/NEOMYCIN 3.5MG/POLYMYXIN OTIC SOLN Directions: INSTILL 4 DROPS IN LEFT EAR THREE TIMES A DAY FOR INFECTION Quantity: 10 for 7 days Issued: 10/31/23 Filled: 10/31/23 Expires: 11/30/23 Refills: 0 Status: DISCONTINUED OUTPATIENT MEDICATIONS (LOCAL) WITHIN 90 DAYS: ACCU-CHEK GUIDE (GLUCOSE) TEST STRIP Directions: USE 1 STRIP TO TEST BLOOD SUGAR 3-4 TIMES WEEKLY Quantity: 50 for 90 days Issued: 02/14/24 Filled: 03/07/24 Expires: 02/14/25 Refills: 3 Status: ACTIVE/SUSP CHOLECALCIF 25MCG (D3-1,000UNIT) TAB Directions: TAKE FOUR TABLETS BY MOUTH DAILY FOR VITAMIN D SUPPLEMENT Quantity: 400 for 90 days Issued: 02/14/24 Filled: 03/07/24 Expires: 02/14/25 Refills: 3 Status: ACTIVE/SUSP CYANOCOBALAMIN 1000MCG TAB Directions: TAKE ONE TABLET BY MOUTH DAILY FOR VITAMIN B12 SUPPLEMENT Quantity: 90 for 90 days Issued: 02/14/24 Filled: 03/16/24 Expires: 02/14/25 Refills: 3 Status: ACTIVE/SUSP DICLOFENAC NA 1% TOP GEL Directions: APPLY SMALL AMOUNT TO AFFECTED AREA EVERY 6 HOURS NEEDED FOR SHOULDER PAIN Quantity: 300 for 90 days Issued: 02/14/24 Filled: 03/07/24 Expires: 02/14/25 Refills: 3 Status: ACTIVE/SUSP FLUTICASONE PROP 50MCG 120D NASAL INHL Directions: USE 2 SPRAYS IN EACH NOSTRIL DAILY FOR NASAL ALLERGY Quantity: 3 for 90 days Issued: 02/14/24 Filled: 03/07/24 Expires: 02/14/25 Refills: 3 Status: ACTIVE/SUSP HCTZ 12.5MG/LOSARTAN 100MG TAB Directions: TAKE 1 TABLET BY MOUTH DAILY FOR BLOOD PRESSURE/HEART Quantity: 90 for 90 days Issued: 02/14/24 Filled: 03/15/24 Expires: 02/14/25 Refills: 3 Status: ACTIVE/SUSP LORATADINE 10MG TAB Directions: TAKE ONE TABLET BY MOUTH DAILY FOR ALLERGIES Quantity: 90 for 90 days Issued: 02/14/24 Filled: 03/15/24 Expires: 02/14/25 Refills: 3 Status: ACTIVE/SUSP METFORMIN HCL 1000MG TAB Directions: TAKE ONE TABLET BY MOUTH TWICE A DAY FOR DIABETES Quantity: 180 for 90 days Issued: 02/14/24 Filled: 03/07/24 Expires: 02/14/25 Refills: 3 Status: ACTIVE/SUSP PIOGLITAZONE HCL 30MG TAB Directions: TAKE ONE TABLET BY MOUTH DAILY FOR DIABETES Quantity: 90 for 90 days Issued: 02/14/24 Filled: 03/09/24 Expires: 02/14/25 Refills: 3 Status: ACTIVE/SUSP SERTRALINE HCL 100MG TAB Directions: TAKE ONE AND ONE-HALF TABLETS BY MOUTH EVERY MORNING FOR MOOD Quantity: 135 for 90 days Issued: 12/27/23 Filled: 03/26/24 Expires: 12/27/24 Refills: 0 Status: ACTIVE/SUSP ACCU-CHEK GUIDE (GLUCOSE) TEST STRIP Directions: USE 1 STRIP TO TEST BLOOD SUGAR 3-4 TIMES WEEKLY Quantity: 50 for 90 days Issued: 01/10/23 Filled: 12/08/23 Expires: 01/11/24 Refills: 0 Status: DISCONTINUED CHOLECALCIF 25MCG (D3-1,000UNIT) TAB Directions: TAKE FOUR TABLETS BY MOUTH DAILY FOR VITAMIN D SUPPLEMENT Quantity: 400 for 90 days Issued: 01/10/23 Filled: 12/08/23 Expires: 01/11/24 Refills: 0 Status: DISCONTINUED CLINDAMYCIN PHOSPHATE 1% TOP GEL Directions: APPLY SMALL AMOUNT TO AFFECTED AREA TWICE A DAY FOR INFECTION Quantity: 60 for 30 days Issued: 03/15/23 Filled: 04/22/23 Expires: 03/15/24 Refills: 0 Status: DISCONTINUED CYANOCOBALAMIN 1000MCG TAB Directions: TAKE ONE TABLET BY MOUTH DAILY FOR LOW VITAMIN B12 Quantity: 100 for 90 days Issued: 01/10/23 Filled: 03/23/23 Expires: 01/11/24 Refills: 3 Status: DISCONTINUED CYANOCOBALAMIN 1000MCG TAB Directions: TAKE ONE TABLET BY MOUTH DAILY FOR VITAMIN B12 SUPPLEMENT Quantity: 90 for 90 days Issued: 01/11/23 Filled: 06/30/23 Expires: 01/12/24 Refills: 1 Status: DISCONTINUED CYANOCOBALAMIN 1000MCG TAB Directions: TAKE ONE TABLET BY MOUTH DAILY FOR VITAMIN B12 SUPPLEMENT Quantity: 90 for 90 days Issued: 07/16/23 Filled: 12/17/23 Expires: 07/16/24 Refills: 2 Status: DISCONTINUED DICLOFENAC NA 1% TOP GEL Directions: APPLY SMALL AMOUNT TO AFFECTED AREA EVERY 6 HOURS NEEDED FOR SHOULDER PAIN Quantity: 300 for 90 days Issued: 01/10/23 Filled: 12/08/23 Expires: 01/11/24 Refills: 0 Status: DISCONTINUED FAMOTIDINE 40MG TAB Directions: TAKE ONE TABLET BY MOUTH DAILY FOR STOMACH Quantity: 90 for 90 days Issued: 01/10/23 Filled: 06/11/23 Expires: 01/11/24 Refills: 2 Status: DISCONTINUED FLUTICASONE PROP 50MCG 120D NASAL INHL Directions: USE 2 SPRAYS IN EACH NOSTRIL DAILY FOR NASAL ALLERGY Quantity: 3 for 90 days Issued: 01/10/23 Filled: 12/08/23 Expires: 01/11/24 Refills: 0 Status: DISCONTINUED GABAPENTIN 300MG CAP Directions: TAKE ONE CAPSULE BY MOUTH EVERY MORNING AND TAKE ONE CAPSULE AT NOON AND TAKE TWO CAPSULES EVERY EVENING FOR PAIN Quantity: 120 for 30 days Issued: 10/23/23 Filled: 02/04/24 Expires: 10/23/24 Refills: 0 Status: DISCONTINUED HCTZ 12.5MG/LOSARTAN 100MG TAB Directions: TAKE 1 TABLET BY MOUTH DAILY FOR BLOOD PRESSURE/HEART Quantity: 90 for 90 days Issued: 01/10/23 Filled: 06/29/23 Expires: 01/11/24 Refills: 1 Status: DISCONTINUED HCTZ 12.5MG/LOSARTAN 100MG TAB Directions: TAKE 1 TABLET BY MOUTH DAILY FOR BLOOD PRESSURE/HEART Quantity: 90 for 90 days Issued: 07/16/23 Filled: 12/16/23 Expires: 07/16/24 Refills: 2 Status: DISCONTINUED HYDROPHILIC (EQV EUCERIN) TOP CREAM Directions: APPLY SMALL AMOUNT TO AFFECTED AREA TWICE A DAY NEEDED FOR DRY SKIN Quantity: 454 for 30 days Issued: 01/10/23 Filled: 04/22/23 Expires: 01/11/24 Refills: 2 Status: DISCONTINUED LIDOCAINE 5% 5IN X 6IN PATCH Directions: APPLY 2 PATCHES TO SKIN DAILY FOR PAIN -LEAVE ON 12 HOURS, THEN REMOVE FOR 12 HOURS Quantity: 60 for 30 days Issued: 01/10/23 Filled: 11/29/23 Expires: 01/11/24 Refills: 4 Status: DISCONTINUED LORATADINE 10MG TAB Directions: TAKE ONE TABLET BY MOUTH DAILY FOR ALLERGIES Quantity: 90 for 90 days Issued: 01/10/23 Filled: 06/29/23 Expires: 01/11/24 Refills: 1 Status: DISCONTINUED LORATADINE 10MG TAB Directions: TAKE ONE TABLET BY MOUTH DAILY FOR ALLERGIES Quantity: 90 for 90 days Issued: 07/16/23 Filled: 12/16/23 Expires: 07/16/24 Refills: 2 Status: DISCONTINUED METFORMIN HCL 1000MG TAB Directions: TAKE ONE TABLET BY MOUTH TWICE A DAY FOR DIABETES Quantity: 180 for 90 days Issued: 01/10/23 Filled: 12/08/23 Expires: 01/11/24 Refills: 0 Status: DISCONTINUED MIRTAZAPINE 15MG TAB Directions: TAKE ONE-HALF TABLET BY MOUTH AT BEDTIME FOR SLEEP Quantity: 45 for 90 days Issued: 09/27/23 Filled: 11/05/23 Expires: 12/26/23 Refills: 0 Status: DISCONTINUED PIOGLITAZONE HCL 30MG TAB Directions: TAKE ONE TABLET BY MOUTH DAILY FOR DIABETES Quantity: 90 for 90 days Issued: 01/10/23 Filled: 12/10/23 Expires: 01/11/24 Refills: 0 Status: DISCONTINUED PRAZOSIN HCL 5MG CAP Directions: TAKE ONE CAPSULE BY MOUTH AT BEDTIME FOR NIGHTMARES Quantity: 90 for 90 days Issued: 09/27/23 Filled: 11/05/23 Expires: 12/26/23 Refills: 0 Status: DISCONTINUED SERTRALINE HCL 100MG TAB Directions: TAKE ONE AND ONE-HALF TABLETS BY MOUTH EVERY MORNING FOR MOOD Quantity: 135 for 90 days Issued: 09/27/23 Filled: 10/18/23 Expires: 12/26/23 Refills: 0 Status: DISCONTINUED TRIAMCINOLONE ACETONIDE 0.1% [...] 0 Status: DISCONTINUED (EDIT) CLINIC MEDICATIONS (LOCAL): No local medications found. /peyton/ Laura Mckeon MD Primary Care Physician Signed: 02/16/2024 16:10 LAURA MCKEON [facility] Feb 14, 2024 09:03 AM ACCOUNTING OF DISC LOSURES NOTE: LOCAL TITLE: STATE PRESCRIPTION DRUG MONITORING PROGRAM STANDARD TITLE: ACCOUNTING OF DISCLOSURES NOTE DATE OF NOTE: FEB 14, 2024@09:03:54 ENTRY DATE: FEB 14, 2024@09:03:54 AUTHOR: LAURA MCKEON EXP COSIGNER: URGENCY: STATUS: COMPLETED This PDMP query was submitted by Laura Mckeon MD. The clinical justification for this PDMP query is to review controlled substances prescribed outside of the [facility], and any additional information that may become available, as an important component of standard clinical care, and in accordance with [facility] policy. Patient information was shared with the PDMP Appriss Proctor. No prescription(s) for controlled substances outside the [facility] were found in the last 90 days. /peyton/ Laura Mckeon MD Primary Care Physician Signed: 02/14/2024 09:04 LAURA MCKEON [facility] Feb 14, 2024 08:48 AM PRIMARY CARE NOTE: LOCAL TITLE: PC PROGRESS NOTE STANDARD TITLE: PRIMARY CARE NOTE DATE OF NOTE: FEB 14, 2024@08:48 ENTRY DATE: FEB 14, 2024@08:48:58 AUTHOR: LAURA MCKEON EXP COSIGNER: URGENCY: STATUS: COMPLETED Age-78 Chief complaint: f/u for chronic medical conditions HPI: Patient presents for f/u with a history of hypertension, dysphagia, GERD, nodule of stomach found on EGD 09/2022 s/p EUS 01/03/23 showing gastric mucosa with minimal chronic inflammation, PTSD, R shoulder OA (xray 09/02/2021 showed degenerative changes in the AC joint and MRI 08/28/2017 showed partial tearing with underlying tendinopathy seen throughout the subscapularis and supraspinatus tendons. No large, focal, discrete rotator cuff tears are identified. Degenerative tearing along the base of the superior labrum. Mild-moderate partial tearing involving the intra-articular portion of the long head of the biceps tendon. Acromioclavicular arthropathy), DM2, JAYLA, vit B12 defic, hx of kidney stones, and allergic rhinitis. Patient has complaints of right middle finger PIP and DIP pain with inability to fully extend the finger. He denies injury. Patient has a history of dysphagia ( get strangled ) status post swallowing evaluation per speech pathology noting pt c/o severe PND that he feels is significantly contributing to his swallowing difficulty. ENT consult was ordered. 1. HTN w/CKD - baseline Cr 1.4; cont HCTZ/losartan 12.5mg/100mg daily 2. R shoulder OA - ortho f/u 03/17/24 for CSI 3. PTSD - f/u with [facility] to cont meds 4. JAYLA - cont CPAP nightly 5. GERD/dysphagia - cont pantoprazole 40 mg twice daily; GI recall 03/2024 6. hx of SCC - derm recall 05/2024 7. DM2 w/neuropathy - cont metformin 1000 mg BID and pioglitazone 30 mg; cont gabapentin 300mg QAM, noon, and 600mg QHS; ophthal eval 03/2023 w/out retinopathy; recall 03/2024 8. L external auditory canal eczema - per [facility] ENT eval; triamcinolone 0.1% ointment as needed Medical History: Active problems - Computerized Problem [...] bronchus, and lung 10. Osteoarthritis (SNOMED CT 823507719) 11. Gastro-esophageal reflux disease with esophagitis (SNOMED CT 014085525) 12. Allergic rhinitis * 13. Hypertension (SNOMED CT 93662265) 14. Diabetes mellitus (SNOMED CT 61363008) 15. NEPHROLITHIASIS 16. Gout * Surgical History: L Open reduction, internal fixation of bimalleolar ankle fx Left ureteroscopy with basket stone extraction B cataract extraction R ureteroscopy/laser lithotripsy & basket stoneextraction pars plana vitrectomy of the Left eye SCC B cheeks Right long finger mucous cyst excision Active Outpatient Medications (including Supplies): Active Outpatient [...] AFFECTED AREA TWICE A DAY FOR SKIN RASH- allergies:LISINOPRIL, FOSINOPRIL, PERCOCET Hx: Employma 1964- Social Hx: lives in [place]; ; 1 son and 1 daughter; retired Smoking: denies ETOH: quit 2000 Illicit: denies Family Hx: Father: age 88; black lung and heart disease Mother: age 90 PE: 202 lb [91.63 kg] (02/14/2024 08:25) 70 in [177.8 cm] (01/22/2024 11:17) Measurement DT BP 02/14/2024 08:25 124/74 74 (02/14/2024 08:25) BODY MASS INDEX - 29.0 PULSE OX: Measurement DT POx (L/MIN)(%) 02/14/2024 08:25 97 Gen: WN WD WM ENT: translucent TMs Pulm: B CTA; nl respiratory rate CV: RRR no M/R/G; no carotid bruits; 2+ pedal pulses; no edema GI: NT/ND +BS; no HSM MSK: nl gait; no cyanosis or clubbing of nails; muscle strength 5/5 B UE & LE; R shoulder: abduction to 90 degrees Neuro: sensation diminished B LE Psych: appropriate mood and affect; A&Ox3 ECHO - NONE FOUND Lipid Prof Danyell. date CHOL TRIG HDL LIPID PHLDL CHOLSERUM AP 07/16/23 08:59 149 80 55 PANEL 1 Danyell. date GLUCOSE BUN CREAT SODIUM K CHLOR CO2 07/16/23 08:59 179 H 19 1.44 H 138 4.7 102 26 The OBJECT CBC CUMULATIVE (5Y) was NOT found...Contact IRM. Collection DT Specimen Test Name Result Units Ref Range 07/16/2023 08:59 PLASMA!! TSH 1.8565 mIU/mL 0.3500 - 4.9400 !! Indicates COMMENTS AVAILABLE...Refer to Interim Lab Report. Z PROSTATIC ANTIGEN - NONE FOUND Z GLYCOHEMOGLOBIN (HPLC) 07/16/23 08:59 6.9 H A/P: 1. DM2 w/neuropathy - cont metformin 1000 mg BID and pioglitazone 30 mg; cont gabapentin 300mg QAM, noon, and 600mg QHS; ophthal eval 03/2023 w/out retinopathy; recall 03/2024 2. HTN w/CKD - baseline Cr 1.4; cont HCTZ/losartan 12.5mg/100mg daily Follow up: 7 mos I spent 30 min today reviewing last [...] given the opportunity to ask questions to . /peyton/ Laura Mckeon MD Primary Care Physician Signed: 02/16/2024 16:10 LAURA MCKEON [facility] Feb 14, 2024 08:26 AM PRIMARY CARE NURSI TRAVIS NOTE: LOCAL TITLE: [facility]c Health Tech/logistics intern Note STANDARD TITLE: PRIMARY CARE NURSING NOTE DATE OF NOTE: FEB 14, 2024@08:26 ENTRY DATE: FEB 14, 2024@08:26:26 AUTHOR: PRETTY LUO EXP COSIGNER: URGENCY: STATUS: COMPLETED Pc Health Tech/logistics intern Note Has ADDENDA Two identifiers were used to verbally verify ,(full SS,birthdate). Coronavirus Disease 2019 (COVID-19) Screen: Patient denied being exposed to or have had new onset of any COVID-19 symptoms within the last 2 weeks. The patient declines a list of current medications. MEDICATION RECONCILIATION: medications reviewed with . states all medication are correct and she continues to take them. No new medications. Yes - Bushnell/Caregiver verbalized understanding of topics discussed and education provided Provider notified of elevated B/P >/= 140/90. Not Applicable COVID-19 Immunization: Refused Moderna Monovalent COVID-19 vaccine Immunization: COVID-19 (MODERNA), MRNA, LNP-S, PF, 50 MCG/0.5 ML (AGES 12+ YEARS) Refusal Reason: PATIENT DECISION Patient refuses all immunization(s) in the COVID-19 group Date Documented: 02/14/24 08:32 Eye Care At-Risk Screen : Patient identified to be at risk for the following eye condition(s): DIABETIC RETINOPATHY: Diabetes Diagnosis Information: Encounter Diagnosis: 11/09/2023@09:00 E11.42 (ICD-10-CM) Type 2 Diabetes Mellitus with Diabetic Polyneuropathy rank: SECONDARY Prov. Narr. - Type 2 Diabetes Mellitus with Diabetic Polyneuropathy MACULAR DEGENERATION: Macular Degeneration Risk Factors Information: Reminder Term: [facility]-AMD RISK FACTORS Encounter Diagnosis: 09/26/2022@11:00 H35.3132 (ICD-10-CM) Nonexudative age-related macular degeneration, bilateral, intermediate dry stage rank: PRIMARY Prov. Narr. - Non-Exudative ARMD,Bilateral,Intermed Dry Stage Action: Patient has a future eye care appointment scheduled within the next 90 days. Date of Appointment: states he will schedule Herpes Zoster (Shingles) Vaccine: The patient declines to receive the recommended dose of zoster (shingles) vaccine. Immunization: ZOSTER RECOMBINANT Refusal Reason: PATIENT DECISION Patient refuses all immunization(s) in the ZOSTER group Date Documented: 02/14/24 08:33 * already completed Tobacco Use Screening: The patient is a former tobacco user. The patient quit fifteen or more years ago. Td / Tdap Immunization: The patient declines to receive the recommended dose of Td/Tdap vaccine. Immunization: TD(ADULT) UNSPECIFIED FORMULATION Refusal Reason: PATIENT DECISION Patient refuses all immunization(s) in the Td group Comment: Will come in on FEB 21 to receive this. just not today Date Documented: 02/14/24 08:35 Depression Screening: Perform PHQ-2 A PHQ-2 screen was performed. The score was 0 which is a negative screen for depression. Over the past two weeks, how often have you been bothered by the following problems? 1. Little interest or pleasure in doing things Not at all 2. Feeling down, depressed, or hopeless Not at all /peyton/ PRETTY LUO LPN [facility] Signed: 02/14/2024 08:36 02/14/2024 ADDENDUM STATUS: COMPLETED Influenza Immunization: Influenza, High-Dose, Trivalent, Preservative Free (Fluzone-Syringe) Administered: INFLUENZA, HIGH-DOSE, TRIVALENT, PF Date Administered: Feb 14, 2024 08:30 Special Class Welder: SANOFI PASTEUR Lot: [id number] Exp Date: Oct 13, 2024 [facility]: [id number] Admin Route/Site: INTRAMUSCULAR/LEFT DELTOID Dosage: 0.5mL Vaccine Information Statement(s): INFLUENZA(FLU) VACC(INACTIVATED OR RECOMBINANT)VIS Nov 19, 2020 ([place]) Order By: Policy Administered By: Pretty Luo The Influenza Vaccine Information Statement (VIS) was reviewed with the patient/caregiver which lists the benefits and risks of the vaccine and the risks of not receiving the Influenza vaccine. The patient/caregiver denied any prior severe reaction to this vaccine or its components or a severe allergic reaction, such as anaphylaxis, to any vaccine or any injectable therapy. The patient/caregiver gave verbal consent to receive the vaccine. Comments: Vet tolerated injection well. Vet advised of s/s of adverse reactions. No immediate reactions reported by vet or noted by this newspaper writer. Vet was advised to remain in the facility for 15 minutes post injection and to report any reactions to staff immediately.Vet voiced understanding. /peyton/ PRETTY LUO LPN [facility] Signed: 02/14/2024 09:26 PRETTY LUO [facility]
--- OUTSIDE RECORDS SUMMARY | 2024-07-24 21:26 | XMS_ITS | Encounter Summary ---
Author Name [facility] Organization [facility] [place] Address [address] [place] [id number] Care Team Providers Care Resawyer Name Role Phone LAURA MCKEON Primary Care [...] PART A Oct 14, 2009 PART A [id number] [phone] Alex GALLEGO PATIENT MEDICARE (WNR) MEDICARE (M) PART B Oct 14, 2009 PART B [id number] [phone] Alex GALLEGO PATIENT MEDICARE (WNR) MEDICARE (M) PART B Oct 14, 2009 PART B [id number] Alex GALLEGO PATIENT MEDICARE (WNR) MEDICARE (M) PART A Oct 14, 2009 PART A [id number] Alex GALLEGO PATIENT MEDICARE (WNR) MEDICARE (M) PART B Oct 14, 2009 PART B [id number] Alex GALLEGO PATIENT MEDICARE (WNR) MEDICARE (M) PART A Oct 14, 2009 PART A [id number] Alex GALLEGO PATIENT Selected Encounter This section includes the information on record at [place] for the Encounter. Date/Time Encounter Type Encounter Description Reason Provider Source Jan 31, 2024 11:34 AM Outpatient Encounter AMBULATORY ELVIN HUMPHREYS Encounter Template Text not used by [place] Plan of Treatment: Future Appointments (+ 6 months) and Future Tests (+/- 45 days) The Plan of Treatment section includes future care activities for the patient from all [place] treatmentfacilities. This section includes future appointments and [...] 2024 08:30 AM [facility]ORY - NONE [place] [facility] Feb 14, 2024 10:00 AM [place]ORY - [place] [facility] Feb 27, 2024 02:00 PM AM[place]ULATORY - NONE [place] [facility] Feb 28, 2024 01:30 PM [place]ULATORY - [place]GERY [place] [facility] Feb 28, 2024 02:30 PM AMBULATORY - REHAB MEDICIN E [facility] Feb 29, 2024 09:20 AM AM[place]ULATORY - [place]GERY [place] [facility] Mar 04, 2024 09:00 AM AMBULATORY - PSYCHIATRY [facility] Mar 17, 2024 01:00 PM AMBULATORY - [place]GERY [place] [facility] Mar 18, 2024 08:30 AM AMBULATORY - REHAB MEDICIN E [facility] Mar 18, 2024 10:00 AM AM[place]ULATORY - [place]GERY [place] [facility] Mar 28, 2024 08:00 AM AM[place]ULATORY - NONE [place] [facility] Apr 01, 2024 10:00 AM AM[facility]ULATORY - PSYCHIATRY [facility] Apr 15, 2024 09:00 AM AMBULATORY - PSYCHIATRY [facility] Apr 16, 2024 11:35 AM [facility]ULATORY - [facility]ICINE [facility] Apr 25, 2024 08:30 AM [facility] Apr 29, 2024 10:00 AM AMBULATORY - MEDICINE [facility] May 06, 2024 10:00 AM AMBULATORY - PS[facility]CHIATRY [facility] May 07, 2024 10:00 AM AMBULATORY - MEDICINE [facility] May 15, 2024 10:30 AM AMBULATORY - REHAB MEDICIN E [facility] May 20, 2024 08:00 AM [place]ORY - NONE [place] [facility] Lab Results: +/- 30 days of [...] Type Comment Feb 14, 2024 10:41 AM [facility] N MICROALBUMIN/CREAT RATIO URINE Specimen Type: URINE No comment entered. Ordering Provider: LAURA MCKEON Report Released Date/Time: Feb 14, 2024 09:03 AM Reporting Lab: [address] [address] Performing Lab: [address] [address] CREATININE 133.0 mg/dL MICROALBUMIN QUANT 5.8 mg/L 0.0-30.0 .MICROALBUMIN/CREA RATIO 4.4 ug/mg{creat} Feb 14, 2024 10:41 AM [facility] DRUG SCREEN EXPANDED IN-HOUSE URINE Specimen [...] Feb 14, 2024 09:03 AM Reporting Lab: [facility] [address] [facility] [address] Performing Lab: [address] [address] TETRAHYDROCANNABINOL SCREEN NEG Cuto ff < 50 [...] < 1 Feb 14, 2024 10:19 AM [facility] LIPID PROFILE PLASMA Specimen Type: PLASM [...] Feb 14, 2024 09:03 AM Reporting Lab: [address] [address] Performing Lab: [address] [address] CHOLESTEROL 161 mg/dL 0-199 TRIGLYCERIDE 84 mg/dL 0-149 HDL CHOLESTEROL 54 mg/dL 40-69 DIRECT LDL CHOL. 95 mg/dL 0-100 Feb 14, 2024 10:19 AM [facility] GLYCOHEMOGLOBIN BLOOD Specimen Type: BLOOD Comment: [place] guidelines for A1c interpretation: Glycemic control targets are based on Shared Decision Making between clinicians and patients. Criteria used to establish an A1c target recommendation can be found at https://www.wi.gov/qualityandpatientsafety/ and include the use of result accuracy [...] 8.73 and 9.27. Ref: https://ngsp.org/CAPdata.asp. The in-house [employer]-LifeScribe D-100 analyzer has a historical CV <= 2%. Contact the laboratory for further performance characteristics of this assay. Ordering Provider: LAURA MCKEON Report Released Date/Time: Feb 14, 2024 09:03 AM Reporting Lab: [address] [address] Performing Lab: [address] [address] GLYCOHEMOGLOBIN 6.0 4.4-6.4 Feb 14, 2024 10:19 AM [facility] TSH PLASMA Specimen Type: PLASM A [...] Feb 14, 2024 09:03 AM Reporting Lab: [address] [address] Performing [facility]: [facility] [address] [address] TSH 1.1076 m[IU]/mL 0.3500-4.9400 Feb 14, 2024 10:19 AM [facility] VIT[facility] PLASMA Specimen Type: PLASM A [...] Feb 14, 2024 09:03 AM Reporting Lab: [facility] [address] [facility] [address] Performing Lab: [address] [address] B12 VITAMIN 761 pg/mL 213-816 Feb 14, 2024 10:19 AM [facility] PANEL 5 PLASMA Specimen Type: PLASM A [...] Feb 14, 2024 09:03 AM Reporting Lab: [address] [address] Performing Lab: [address] [address] CREATININE 1.38 mg/dL H 0.72-1.25 UREA NITROGEN [...] (CKD-EPI) 52 Feb 14, 2024 10:19 AM [facility] CBC/PLT BLOOD Specimen Type: BLOOD No comment entered. Ordering Provider: LAURA MCKEON Report Released Date/Time: Feb 14, 2024 09:03 AM Reporting Lab: [address] [address] Performing Lab: [address] [address] WBC 6.7 10*3/uL 5.0-10.0 RBC 5.17 10*6/uL 4.6-6.2 HGB 15.8 g/dL 14.0-18.0 HCT 47.1 42.0-52.0 MCV 91.1 fL 80.0-94.0 MCH 30.6 pg 27.0-31.0 MCHC 33.5 g/dL 32.0-36.0 PLT 257 10*3/uL 150-450 MPV 10.5 fL 9.0-13.1 RDW 14.4 11.0-16.0 NRBC 0.0 0.0-0.0 Feb 14, 2024 10:19 AM [facility] 25-OH VITAMIN D SERUM Specime n [...] Feb 14, 2024 09:03 AM Reporting Lab: [address] [address] Performing Lab: [address] [address] 25-OH VITAMIN D 42.5 ng/mL 20.0-50.0 Jan 31, 2024 11:09 AM [facility] GLUCOSE-HAND MONITOR CAPILLARY Specime n Type: CAPILLARY Comment: $ Test performed by: [id number] Meter #: [id number] Ordering Provider: PELON CHEUNG Report Released Date/Time: Feb 04, 2024 07:19 AM Reporting Lab: [address] [address] Performing Lab: [address] [address] GLUCOSE-HAND MONITOR 125 mg/dL H 71-99 Pathology [...] [facility] [CLIA# [id number]] [address] [place] [address] - - - - - - - [...] submitted in one cassette. CPT CODE - 08564 MICROSCOPIC EXAM/DIAGNOSIS: Right long finger cyst, excision: -Findings consistent with digital mucous cyst. /pey[place]/ Ross Dobson MD Pathologist Signed Feb 05, 2024@15:20 Performing Laboratory: Surgical Pathology Report Performed By: [facility] [[facility]# [id number]] [address] [place] [address] $FTR - - - - - - [...] - - ERIK GALLEGO STANDARD FORM 515 ID:[id number] SEX:M :1945 AGE: 78 LOC:PATH PCP: Laura Mckeon MD /pey[place]/ Ross Dobson MD Pathologist Signed: 02/05/2024 15:20 [facility] Jan 31, 2024 12:13 PM LR SURGICAL PATHOL OGY REPORT: LOCAL TITLE: LR SURGICAL PATHOLOGY REPORT DATE OF NOTE: JAN 31, 2024@12:13:13 ENTRY DATE: JAN 31, 2024@12:13:13 AUTHOR: JUDY SIGALA EXP COSIGNER: URGENCY: STATUS: COMPLETED $APHDR Reporting Lab: [facility] [IA# [id number]] [address] [place] [address] - - - - - - - [...] CELL CARCINOMA LEFT PREAURICULAR CHEEK. CPT CODE: 88762 I ACTED BOTH THE SURGEON AND THE PATHOLOGIST FOR THIS CASE. PLEASE SEE CORRESPONDING MOHS NOTE IN CPRS AND MOHS MAP SCANNED TO [employer]. /es/ JUDY SIGALA Chief, Dermatology Signed Jan 31, 2024@12:13 Performing Laboratory: Surgical Pathology Report Performed By: [facility] [CLIA# [id number]] [address] [place] [address] $FTR - - - - - - - - - - - - - - - - - - - - - - - - - - - - - - - - - - - - - - - - (End of report) JUDY SIGALA MD [facility] Date Jan 22, 2024 - - - - - - - - - - - - - - - - - - - - - - - - - - - - - - - - - - - - - - - - ERIK GAL[place]GO STANDARD FORM 515 ID:[id number] SEX:M :1945 AGE: 78 LOC:DERM PCP: Laura Mckeon MD /[place]/ JUDY SIGALA Chief, Dermatology Signed: 01/31/2024 12:13 JUDY SIGALA-D [facility]
--- OUTSIDE RECORDS SUMMARY | 2024-07-24 21:26 | XMS_ITS ---
Author Name [facility] [facility] [place] [facility] [place] Address [address] [place] [address] Care Team Providers Care Director Information Name Role Phone LAURA STEINBERG Primary Care [...] PART A Oct 14, 2009 PART A [id number] Alex GALLEGO PATIENT MEDICARE (WNR) MEDICARE (M) PART B Oct 14, 2009 PART B [id number] Alex GALLEGO PATIENT MEDICARE (WNR) MEDICARE (M) PART B Oct 14, 2009 PART B [id number] Alex GALLEGO PATIENT MEDICARE (WNR) MEDICARE (M) PART A Oct 14, 2009 PART A [id number] Alex GALLEGO PATIENT MEDICARE (WNR) MEDICARE (M) PART A Oct 14, 2009 PART A [id number] Alex GALLEGO PATIENT MEDICARE (WNR) MEDICARE (M) PART B Oct 14, 2009 PART B [id number] Alex GALLEGO PATIENT Selected Encounter This section includes the information on [place] at [place] for the Encounter. Date/Time Encounter Type Encounter Description Reason Provider Source Jun 10, 2024 08:50 AM EXT ECG>7D<15D REC SCAN A/R AMB ECG MONITORING ICD-10-CM I11.9 Hypertensive 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 TI GUILLEN Jennifer Encounter Template Text not used by [place] Assessments - Encounter Diagnoses This section includes the primary and secondary diagnoses documented for the Encounter. Date/Time Primary/Secondary Diagnosis Diagnosis Name Provider Source Jun 12, 2024 12:09 PM PRIMARY Hypertensive 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 [facility] Plan of Treatment: Future Appointments (+ 6 months) and Future Tests (+/- 45 days) The Plan of Treatment section includes future care activities for the patient from all [place] treatmentfacilities. This section includes future appointments and future orders which are active, pending or scheduled. Future Appointments This section includes appointments that were scheduled to occur 6 months from the date of the Encounter, up to a maximum of 20 appointments. The data comes from all [place] treatment facilities. Appointment Date/Time Appointment Type Appointme nt Facility Name Jun 20, 2024 09:00 AM [facility]ORY - NONE [facility] Jun 24, 2024 08:00 [facility] Jun 30, 2024 11:00 AM [facility] - NONE [facility] Jun 30, 2024 03:00 PM AMBULATORY - MEDICINE JAYNE NGTON-CDD [facility] Jul 01, 2024 09:00 AM AMBULATORY - MEDICINE JAYNE NGTON-D [facility] Jul 07, 2024 10:00 AM AMBULATORY - PSYCHIATRY [facility] Jul 08, 2024 10:00 AM [facility] Jul 10, 2024 08:30 AM AMBULATORY - MEDICINE JAYNE NGTON-CDD [facility] Jul 24, 2024 03:00 PM AMBULATORY - PSYCHIATRY [facility] Aug 05, 2024 09:00 AM AMBULATORY - MEDICINE JAYNE SINGH [facility] Aug 11, 2024 10:00 AM AMBULATORY - PSYCHIATRY [facility] NICHOLAS [facility] Aug 12, 2024 09:00 AM AMBULATORY - MEDICINE JAYNE SAMANTHA [facility] August 18, 2024 09:00 AM AMBULATORY - SURGERY LARRY HOLLOWAY [facility] September 02, 2024 08:20 AM AMBULATORY - SURGERY DEANNEIN JEWEL [facility] Oct 01, 2024 09:00 AM AMBULATORY - NONE DEANNEINGLIV Rios [facility] Oct 30, 2024 09:00 AM AMBULATORY - PSYCHIATRY [facility] NICHOLAS [facility] Lab Results: +/- 30 days [...] Type Comment Jun 30, 2024 03:27 PM [facility] BNP (STODDARD) PLASMA Specimen Type: PLASMA Comment: BNP results less than or equal to 100 pg/ml are ambulatory service representative of normal values in patients without CHF. BNP results greater than 100 pg/ml are considered abnormal and suggestive of CHF. Higher BNP concentrations in the first 72 hours after Acute Coronary Syndrome are associated with an increased risk of , myocardial infarction and CHF. Ordering Provider: SACHI SAINZ Report Released Date/Time: Jun 30, 2024 03:21 PM Reporting Lab: [address] [address] Performing Lab: [address] [address] BNP (STODDARD) 22 pg/mL 0-100 Jun 30, 2024 03:27 PM [facility] PANEL 1 PLASMA Specimen Type: [...] 30, 2024 03:21 PM Reporting Lab: [address] [address] Performing Lab: [address] [address] CREATININE 1.43 mg/dL H 0.72-1.25 UREA NITROGEN 22 mg/dL 9-25 GLUCOSE 164 mg/dL H 74-100 SODIUM 139 mmol/L 136-145 POTASSIUM 3.7 mmol/L 3.5-5.1 CHLORIDE 102 mmol/L 98-107 CO2 27 mmol/L 22-29 CALCIUM 9.8 mg/dL 8.4-10.2 ANION GAP 10 meq/L 3-19 eGFR (CKD-EPI) 50 Jun 30, 2024 03:27 PM [facility] CBC/PLT BLOOD Specimen Type: BLOOD No comment entered. Ordering Provider: SACHI SAINZ Report Released Date/Time: Jun 30, 2024 03:21 PM Reporting Lab: [facility] [address] [facility] [address] Performing Lab: [address] [address] WBC 7.2 10*3/uL 5.0-10.0 RBC 4.85 10*6/uL 4.6-6.2 HGB 14.7 g/dL 14.0-18.0 HCT 43.8 42.0-52.0 MCV 90.3 fL 80.0-94.0 MCH 30.3 pg 27.0-31.0 MCHC 33.6 g/dL 32.0-36.0 PLT 235 10*3/uL 150-450 MPV 10.6 fL 9.0-13.1 RDW 14.8 11.0-16.0 NRBC 0.0 0.0-0.0 May 15, 2024 09:46 AM [facility] MAGNESIUM PLASMA Specimen Type: PLASM A [...] 07, 2024 10:35 AM Reporting Lab: [address] [address] Performing Lab: [address] [address] MAGNESIUM 1.8 mg/dL 1.6-2.6 May 15, 2024 09:46 AM [facility] B[facility] ([employer]) PLASMA Specimen Type: PLASMA Comment: BNP results less than or equal to 100 pg/ml are ambulatory service representative of normal values in patients without CHF. BNP results greater than 100 pg/ml are considered abnormal and suggestive of CHF. Higher BNP concentrations in the first 72 hours after Acute Coronary Syndrome are associated with an increased risk of , myocardial infarction and CHF. Ordering Provider: LAURA STEINBERG Report Released Date/Time: May 07, 2024 10:35 AM Reporting Lab: [address] [address] Performing Lab: [address] [address] BNP (TSODDARD) 29 pg/mL 0-100 May 15, 2024 09:46 AM [facility] PANEL 1 PLASMA Specimen Type: PLASM A [...] 07, 2024 10:35 AM Reporting Lab: [address] [address] Performing Lab: [address] [address] CREATININE 1.54 mg/dL H 0.72-1.25 UREA NITROGEN 20 mg/dL 9-25 GLUCOSE 151 mg/dL H 74-100 SODIUM 140 mmol/L 136-145 POTASSIUM 4.0 mmol/L 3.5-5.1 CHLORIDE 104 mmol/L 98-107 CO2 28 mmol/L 22-29 CALCIUM 9.7 mg/dL 8.4-10.2 ANION GAP 8 meq/L 3-19 eGFR (CKD-EPI) 46 Radiology Reports: +/- 30 days of the [...] the Encounter. The data comes from all [place] treatment facilities. Date/Time Radiology Report Provider Source May 29, 2024 05:[address] PERFORMED BY OTHER FACILITY: ERIK GALLEGO [facility] [id number] -1945 Exm Date: MAY 29, 2024@17:13 Req Phys: LAURA STEINBERG Loc: DE[facility] PACT LULU 1-2 (Req'g Lo Img Loc: OUTSIDE2 LD CT Service: Unknown (Case [id number] COMPLETE) [address] CT PERFORMED BY OTHER FACIL(CT Detailed) CPT:97678 Reason for Study: Exam imported from outside Clinical History: Original Data for Imported Study Patient Name: ERIK GALLEGO Date: 1945 Sex: M Study Date: 05/29/24 Study Time: 05:13:55 Study Description: CT CHEST PE/ABD/PEL W Referring Physician: TAMMI GEE Series 1: 2 CT files, 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 Series 2: 216 CT files, description: 5.0mm [...] Diagnostic Code: VERIFIED BY: / *ELECTRONICALLY FILED* [facility] [place] May 27, 2024 08:07 AM MYOVIEW(1): ERIK GALLEGO [id number] -1945 M Exm Date: MAY 27, 2024@08:07 Req Phys: LAURA STEINBERG Loc: DEANNE POD RUBBER STAMPS AND DIES SUPERVISOR (Req'g Loc) Img Loc: NUCLEAR MEDICINE Service: [place] [address] (Case [id number] COMPLETE) MYOVIEW(1) (NM Detailed) CPT:A9502 Reason for [...] 27, 2024 Date Verified: MAY 27, 2024 Newspaper Journalist E-Sig: Report: STUDY: GXT REPORT: Patient exercised [...] Staff: ANIA ANDRADE APRN, Cardiology Verified by armhole sewer for ANIA ANDRADE /[facility] May 27, 2024 08:07 AM 39284(D) MYOCARDIAL SPECT(MULTIPLE): ERIK GALLEGO [id number] -1945 M Ex Date: MAY 27, 2024@08:07 Req Phys: LAURA STEINBERG Pat Loc: DE[facility]NE POD RUBBER [employer]AMPS AND DIES SUPERVISOR (Req'g Loc) Img Loc: NUCLEAR MEDICINE Service: [place] [address] THIS IS AN AMENDED REPORT (Case [id number] COMPLETE) 26732(D) MYOCARDIAL SPECT(MULTIPL(NM Detailed) CPT:36131 Proc Modifiers : GXT Reason for Study: [...] 05, 2024 Date Verified: JUN 05, 2024 Newspaper Journalist E-Sig: Report: [facility], [place], [place] STUDY: Treadmill Exercise SPECT Tc-99m myoview [...] performed with tomographic and three-dimensional reconstructions with [employer] NM/CT 640 system. The patient performed treadmill [...] data sets in addition to the conventional ejv-zsxrdafvwdq-cxcppkcfa images. Both filtered back projection and iterative [...] ventricular cavity. 4. SPECT images: Attenuation-corrected and mpc-ksukhejcbvg-kyrbtqjbg SPECT images were evaluated. SPECT images demonstrate normal myocardial perfusion. There is a medium size, mild intensity defect located in the nhvae-ou-htdydu inferior myocardium . The defect is fixed [...] Kerri Mena MD, Cardiology Attending /[facility] May 27, 2024 08:07 AM TC-99M FROM NON-HIGHLY ENRICHED URANIUM SOURCE: ERIK GALLEGO [id number] -1945 M Ex Date: MAY 27, 2024@08:07 Req Phys: LAURA STEINBERG Loc: DEANNE POD RUBBER [employer]AMPS [employer] DIES SUPERVISOR (Req'g Loc) Img Loc: NUCLEAR MEDICINE Service: [place] [address] THIS IS AN AMENDED REPORT (Case [id number] COMPLETE) TC-99M FROM NON-HIGHLY ENRICHED U(NM Detailed) [...] 05, 2024 Date Verified: JUN 05, 2024 Newspaper Journalist E-Sig: Report: [facility], [place], [place] STUDY: Treadmill Exercise SPECT Tc-99m myoview [...] performed with tomographic and three-dimensional reconstructions with [employer] NM/CT 640 system. The patient performed treadmill [...] data sets in addition to the conventional rnb-hwharurfwem-kckkrwxud images. Both filtered back projection and iterative [...] ventricular cavity. 4. SPECT images: Attenuation-corrected and ryn-tngwiwewntu-jfadlhxgk SPECT images were evaluated. SPECT images demonstrate normal myocardial perfusion. There is a medium size, mild intensity defect located in the yxygv-ua-jtdmjz inferior myocardium . The defect is fixed [...] Kerri Mena MD, Cardiology Attending /[facility] May 27, 2024 08:07 AM MYOVIEW(2): ERIK GALLEGO SADIAKwame [id number] -1945 M Ex Date: MAY 27, 2024@08:07 Req Phys: LAURA STEINBERG Loc: [facility] RUBBER STAMPS AND DIES SUPERVISOR (Req'g Loc) Img Loc: NUCLEAR MEDICINE Service: [place] [address] THIS IS AN AMENDED REPORT (Case [id number] COMPLETE) MYOVIEW(2) (NM Detailed) CPT:A9502 Reason for [...] 05, 2024 Date Verified: JUN 05, 2024 Newspaper Journalist E-Sig: Report: [facility], [place], [place] STUDY: Treadmill Exercise SPECT Tc-99m myoview [...] performed with tomographic and three-dimensional reconstructions with [employer] NM/CT 640 system. The patient performed treadmill [...] data sets in addition to the conventional stk-twxjemivbnh-ueesadutz images. Both filtered back projection and iterative [...] ventricular cavity. 4. SPECT images: Attenuation-corrected and ngm-tvczzopxccq-bnhponxcm SPECT images were evaluated. SPECT images demonstrate normal myocardial perfusion. There is a medium size, mild intensity defect located in the snczw-em-yxbmka inferior myocardium . The defect is fixed [...] Kerri Mena MD, Cardiology Attending /[facility] LONG-[facility] May 27, 2024 08:07 AM CARD. STRESS TEST W/TREADMILL/...: ERIK GALLEGO [id number] -1945 M Ex Date: MAY 27, 2024@08:07 Req Phys: LAURA STEINBERG Loc: DEANNE POD RUBBER STAMPS AND DIES SUPERVISOR (Req'g Loc) Img Loc: NUCLEAR MEDICINE Service: [place] [address] THIS IS AN AMENDED REPORT (Case [id number] COMPLETE) CARD. STRESS TEST W/TREADMILL/...(NM Detailed) CPT:95738 Reason for Study: SEE CLINICAL HISTORY Clinical [...] 05, 2024 Date Verified: JUN 05, 2024 Newspaper Journalist E-Sig: Report: [facility], [place], [place] STUDY: Treadmill Exercise SPECT Tc-99m myoview [...] performed with tomographic and three-dimensional reconstructions with [employer] NM/CT 640 system. The patient performed treadmill [...] data sets in addition to the conventional muf-julzkqnhtyu-ssvsnmonu images. Both filtered back projection and iterative [...] ventricular cavity. 4. SPECT images: Attenuation-corrected and fhw-wonhlajwmev-rnqbwdmqn SPECT images were evaluated. SPECT images demonstrate normal myocardial perfusion. There is a medium size, mild intensity defect located in the mgvls-em-ficnvv inferior myocardium . The defect is fixed [...] BY: Kerri Mena MD, Cardiology Attending /[facility] May 15, 2024 09:57 AM CHEST TWO(2) VIEW PA&LAT: ERIK GALLEGO [id number] -1945 M Ex Date: MAY 15, 2024@09:57 Req Phys: LAURA STEINBERG Loc: DEANNE PACT PHONE LULU (Req'g Img Loc: [facility] RADIOLOGY Service: [place] [address] (Case [id number] COMPLETE)CHEST TWO(2) VIEW PA&LAT (RAD Detailed) CPT:58934 Reason for Study: dyspnea Clinical History: Report Status: Verified Date Reported: MAY 17, 2024 Date Verified: MAY 17, 2024 Newspaper Journalist E-Sig: Report: CHEST TWO(2) VIEW PA&LAT, 05/15/2024 10:02 AM EST INDICATION: dyspnea COMPARISON: April 16, 2024 Impression: Calcified granuloma right lung apex. No edema or pneumonia. No pleural effusion or pneumothorax. Heart size normal. No acute osseous abnormality. Primary Diagnostic Code: NO ALERT REQUIRED Primary Interpreting Staff: KAILYN STEELE, Staff Physician Verified by armhole sewer for KAILYN STEELE /KAILYN AVILES [facility] Pathology Reports: +/- 30 days [...] the Encounter. The data comes from all [place] treatment facilities. Date/Time Pathology Report Provider Source Jul 10, 2024 09:41 AM LR SURGICAL PATHOL OGY REPORT: LOCAL TITLE: LR SURGICAL PATHOLOGY REPORT DATE OF NOTE: JUL 10, 2024@09:41:15 ENTRY DATE: JUL 10, 2024@09:41:15 AUTHOR: JOE LEUNG COSIGNER: URGENCY: STATUS: COMPLETED $APHDR Reporting Lab: [facility] [CLIA# [id number]] [address] [place] [id number] - - - - - - - [...] left earlobe and consists of an unoriented, lcv-vddg-awkgyii, yellow/white shave of skin measuring 0.5 x 0.4 x 0.2 cm. A rough papule is identified over the skin surface measuring 0.4 x 0.3 cm. The cut surface is yellow/white and grossly unremarkable. The cut surface is inked blue. The specimen is bisected to reveal a white solid interior. The specimen is submitted entirely in a single cassette. 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 /[place]/ JOE LEUNG pathologist Signed Jul 10, 2024@09:41 Performing Laboratory: Surgical Pathology Report Performed By: [facility] [CLIA# [id number]] [address] [place] [address] $FTR - - - - - - - - - - - - - - - - - - - - - - - - - - - - - - - - - - - - - - - - (End of report) JOE LEUNG MD [facility] Date Jul 10, 2024 - - - - - - - - - - - - - - - - - - - - - - - - - - - - - - - - - - - - - - - - ERIK GALLEGO STANDARD FORM 515 ID:[id number] SEX:M :1945 AGE: 78 LOC:PATH PCP: Laura Steinberg MD /[place]/ JOE LEUNG pathologist Signed: 07/10/2024 09:41 [facility] Encounter Notes: All associated encounter notes This section contains the clinical notes associated to the Encounter. Date/Time Encounter Note(s) Provider Source Jun 12, 2024 12:08 PM CARDIOLOGY NOTE: LOCAL TITLE: CARDIOLOGY CHART CHECK NOTE STANDARD TITLE: CARDIOLOGY NOTE DATE OF NOTE: JUN 12, 2024@12:08 ENTRY DATE: JUN 12, 2024@12:09:02 AUTHOR: SUBHA RICK EXP COSIGNER: URGENCY: STATUS: COMPLETED patch holter complete /[place]/ SUBHA RICK ROLANDO-EKG Signed: 06/12/2024 12:09 [facility] Jun 10, 2024 12:01 PM SCANNED REPORT: LOCAL TITLE: SCANNED REPORT STANDARD TITLE: SCANNED REPORT DATE OF NOTE: JUN 10, 2024@12:01 ENTRY DATE: JUN 13, 2024@12:01:38 AUTHOR: YAIMA TEJADA EXP COSIGNER: URGENCY: STATUS: COMPLETED The scanned document may be viewed in [employer]. /peyton/ YAIMA TEJADA BINGO MANAGER Signed: 06/13/2024 12:02 YAIMA TEJADA-D [facility]
--- OUTSIDE RECORDS SUMMARY | 2024-07-24 21:26 | XMS_ITS ---
Author Name [facility] [place] [facility] [place] Address [address] [place] [id number] Care Team Providers Care Laboratory Technology Teacher Name Role Phone LAURA STEINBERG Primary Care [...] PART A Oct 14, 2009 PART A [id number] Alex MISHRA PATIENT MEDICARE (WNR) MEDICARE (M) PART B Oct 14, 2009 PART B [id number] Alex MISHRA PATIENT MEDICARE (WNR) MEDICARE (M) PART B Oct 14, 2009 PART B [id number] Alex MISHRA PATIENT MEDICARE (WNR) MEDICARE (M) PART A Oct 14, 2009 PART A [id number] Alex MISHRA PATIENT MEDICARE (WNR) MEDICARE (M) PART A Oct 14, 2009 PART A [id number] [phone] Alex MISHRA PATIENT MEDICARE (WNR) MEDICARE (M) PART B Oct 14, 2009 PART B [id number] Alex MISHRA PATIENT Selected Encounter This section includes the information on record at [place] for the Encounter. Date/Time Encounter Type Encounter Description Reason Pro vider Source May 30, 2024 08:52 AM Outpatient Encounter ADMIN PAT ACTIVTIES (MASNONCT) IHE Encounter Template Text not used by [place] Plan of Treatment: Future Appointments (+ 6 months) and Future Tests (+/- 45 days) The Plan of Treatment section includes future care activities for the patient from all [place] treatmentfacilities. This section includes future appointments and future orders which are active, pending or scheduled. Future Appointments This section includes appointments that were scheduled to occur 6 months from the date of the Encounter, up to a maximum of 20 appointments. The data comes from all [place] treatment facilities. Appointment Date/Time Appointment Type Appointme nt Facility Name Jun 06, 2024 08:00 AM AMBULATORY - SURGERY [place] GTON [facility] Jun 10, 2024 08:50 AM AMBULATORY - MEDICINE [facility] Jun 10, 2024 11:00 AM AMBULATORY - PSYCHIATRY [facility] Jun 20, 2024 09:00 AM AMBULATORY - NONE [place] [facility] Jun 24, 2024 08:00 AM AMBULATORY - NONE [place] [facility] Jun 30, 2024 11:00 AM AMBULATORY - NONE [place] [facility] Jun 30, 2024 03:00 PM AMBULATORY - MEDICINE JAYNE NGTON-CDD [facility] Jul 01, 2024 09:00 AM AMBULATORY - MEDICINE JAYNE NGTON-CDD [facility] Jul 07, 2024 10:00 AM AMBULATORY - PS[facility]CHIATRY [facility] Jul 08, 2024 10:00 AM AMBULATORY - MEDICINE [facility] Jul 10, 2024 08:30 AM AMBULATORY - MEDICINE JAYNE NGTON-CDD [facility] Jul 24, 2024 03:00 PM AMBULATORY - PSYCHIATRY [facility] Aug 05, 2024 09:00 AM AMBULATORY - MEDICINE [facility] Aug 11, 2024 10:00 AM AMBULATORY - PSYCHIATRY COREY NICHOLAS [facility] Aug 12, 2024 09:00 AM AMBULATORY - MEDICINE JAYNE SINGH [facility] August 18, 2024 09:00 AM AMBULATORY - SURGERY LARRY HOLLOWAY [facility] September 02, 2024 08:20 AM AMBULATORY - SURGERY LARRY HOLLOWAY [facility] Oct 01, 2024 09:00 AM AMBULATORY - NONE DEANNEINGLIV Rios [facility] Oct 30, 2024 09:00 AM AMBULATORY - PSYCHIATRY COREY NICHOLAS [facility] Lab Results: +/- 30 days [...] Type Comment May 15, 2024 09:46 AM [facility] [place] MAGNESIUM PLASMA Specimen Type: PLASMA Comment: [...] May 07, 2024 10:35 AM Reporting Lab: [address] [address] Performing Lab: [address] [address] MAGNESIUM 1.8 mg/dL 1.6-2.6 May 15, 2024 09:46 AM [facility] BNP ([employer]) PLASMA Specimen Type: PLASMA Comment: BNP results less than or equal to 100 pg/ml are leasing representative of normal values in patients without CHF. BNP results greater than 100 pg/ml are considered abnormal and suggestive of CHF. Higher BNP concentrations in the first 72 hours after Acute Coronary Syndrome are associated with an increased risk of , myocardial infarction and CHF. Ordering Provider: LAURA STEINBERG Report Released Date/Time: May 07, 2024 10:35 AM Reporting Lab: [address] [address] Performing Lab: [address] [address] BNP (STODDARD) 29 pg/mL 0-100 May 15, 2024 09:46 AM [facility] PANEL 1 PLASMA Specimen Type: PLASM A [...] May 07, 2024 10:35 AM Reporting Lab: [address] [address] Performing Lab: [address] [address] CREATININE 1.54 mg/dL H 0.72-1.25 UREA NITROGEN [...] the Encounter. The data comes from all [place] treatment facilities. Date/Time Radiology Report Provider Source May 29, 2024 05:[address] PERFORMED BY OTHER FACILITY: ADELSO MISHRA [facility] [id number] -1945 M Exm Date: MAY 29, 2024@17:13 Req Phys: LAURA STEINBERG Loc: DEANNE PACT LULU 1-2 (Req'g Lo Img Loc: OUTSIDE2 LD CT Service: Unknown (Case [id number] COMPLETE) [id number] CT PERFORMED BY OTHER FACIL(CT Detailed) CPT:04739 Reason for Study: Exam imported from outside Clinical History: Original Data for Imported Study Patient Name: ADELSO MISHRA Date: 1945 Sex: M Study Date: 05/29/24 Study Time: 05:13:55 Study Description: CT CHEST PE/ABD/PEL W Referring Physician: TAMMI GEE Series 1: 2 CT files, description: INSURANCE SALESMAN Series 2: 216 CT files, description: 5.0mm [...] Diagnostic Code: VERIFIED BY: / *ELECTRONICALLY FILED* [facility] May 27, 2024 08:07 AM MYOVIEW(1): ADELSO MISHRA [id number] -1945 M Exm Date: MAY 27, 2024@08:07 Req Phys: LAURA STEINBERG Loc: DEANNE POD MARINE CONSULTANT (Req'g Loc) Img Loc: NUCLEAR MEDICINE Service: [place] [address] (Case [id number] COMPLETE) MYOVIEW(1) (NM Detailed) CPT:A9502 Reason for [...] 27, 2024 Date Verified: MAY 27, 2024 Grain Elevator Man E-Sig: Report: STUDY: GXT REPORT: Patient exercised [...] Staff: ANIA ANDRADE APRN, Cardiology Verified by compact assembler for ANIA ANDRADE /ANIA ESPINOZA-CDD [facility] May 27, 2024 08:07 AM 44782(D) MYOCARDIAL SPECT(MULTIPLE): ADELSO MISHRAKwame [id number] -1945 M Exm Date: MAY 27, 2024@08:07 Req Phys: LAURA STEINBERG Loc: DEANNE POD MARINE CONSULTANT (Req'g Loc) Img Loc: NUCLEAR MEDICINE Service: [place] [address] THIS IS AN AMENDED REPORT (Case [id number] COMPLETE) 94786(D) MYOCARDIAL SPECT(MULTIPL(NM Detailed) CPT:50617 Proc Modifiers : GXT Reason for Study: [...] 05, 2024 Date Verified: JUN 05, 2024 Grain Elevator Man E-Sig: Report: [facility], [place], [place] STUDY: Treadmill Exercise SPECT Tc-99m myoview [...] performed with tomographic and three-dimensional reconstructions with [employer] NM/CT 640 system. The patient performed treadmill [...] data sets in addition to the conventional ioj-ovynagaheuz-ncgaavxfa images. Both filtered back projection and iterative [...] ventricular cavity. 4. SPECT images: Attenuation-corrected and uwh-xcstvwfbcok-czgjqmknf SPECT images were evaluated. SPECT images demonstrate normal myocardial perfusion. There is a medium size, mild intensity defect located in the pceeq-uy-vdxdvy inferior myocardium . The defect is fixed [...] Kerri Mena MD, Cardiology Attending /KERRI LONG-CDJoseph [facility] May 27, 2024 08:07 AM TC-99M FROM NON-HIGHLY ENRICHED URANIUM SOURCE: ADELSO MISHRA [id number] -1945 M Ex Date: MAY 27, 2024@08:07 Req Phys: LAURA STEINBERG Loc: DEANNE POD MARINE CONSULTANT (Req'g Loc) Img Loc: NUCLEAR MEDICINE Service: [place] [address] THIS IS AN AMENDED REPORT (Case [id number] COMPLETE) TC-99M FROM NON-HIGHLY ENRICHED U(NM Detailed) [...] 05, 2024 Date Verified: JUN 05, 2024 Grain Elevator Man E-Sig: Report: [facility], [place], [place] STUDY: Treadmill Exercise SPECT Tc-99m myoview [...] performed with tomographic and three-dimensional reconstructions with [employer] NM/CT 640 system. The patient performed treadmill [...] data sets in addition to the conventional nhr-edhozetfnjh-epxyekkfs images. Both filtered back projection and iterative [...] ventricular cavity. 4. SPECT images: Attenuation-corrected and atb-wqknvdqadhd-ltxnrmomg SPECT images were evaluated. SPECT images demonstrate normal myocardial perfusion. There is a medium size, mild intensity defect located in the xehob-ki-pyenyr inferior myocardium . The defect is fixed [...] Kerri Mena MD, Cardiology Attending /KERRI LONG-Joseph [facility] May 27, 2024 08:07 AM MYOVIEW(2): ADELSO MISHRA [id number] -1945 M Ex Date: MAY 27, 2024@08:07 Req Phys: LAURA STEINBERG Loc: DEANNE POD MARINE CONSULTANT (Req'g Loc) Img Loc: NUCLEAR MEDICINE Service: [place] [address] THIS IS AN AMENDED REPORT (Case [id number] COMPLETE) MYOVIEW(2) (NM Detailed) CPT:A9502 Reason for Study: SEE CLINICAL HISTORY Clinical History: Cardiology approval by: nAia Andrade SERVICE CONNECTED? Yes Active Outpatient Medications [...] 05, 2024 Date Verified: JUN 05, 2024 Grain Elevator Man E-Sig: Report: [facility], [place], [place] STUDY: Treadmill Exercise SPECT Tc-99m myoview [...] performed with tomographic and three-dimensional reconstructions with [employer] NM/CT 640 system. The patient performed treadmill [...] data sets in addition to the conventional qxw-ayjywemhfsn-kfxtvqnjd images. Both filtered back projection and iterative [...] ventricular cavity. 4. SPECT images: Attenuation-corrected and afx-tbpmchitvxj-rmvuyjvpd SPECT images were evaluated. SPECT images demonstrate normal myocardial perfusion. There is a medium size, mild intensity defect located in the tkfxe-cg-womucq inferior myocardium . The defect is fixed [...] 2024 08:07 AM CARD. STRESS TEST W/TREADMILL/...: ADELSO MISHRA NATHANIEL [id number] -1945 M Ex Date: MAY 27, 2024@08:07 Req Phys: LAURA STEINBERG Loc: DEANNE POD MARINE CONSULTANT (Req'g Loc) Img Loc: NUCLEAR MEDICINE Service: [place] [address] THIS IS AN AMENDED REPORT (Case [id number] COMPLETE) CARD. STRESS TEST W/TREADMILL/...(NM Detailed) CPT:33072 Reason for Study: SEE CLINICAL HISTORY Clinical [...] 05, 2024 Date Verified: JUN 05, 2024 Grain Elevator Man E-Sig: Report: [facility], [place], [place] STUDY: Treadmill Exercise SPECT Tc-99m myoview [...] performed with tomographic and three-dimensional reconstructions with [employer] NM/CT 640 system. The patient performed treadmill [...] data sets in addition to the conventional tqr-hekjdxfyzeq-eoclbswgg images. Both filtered back projection and iterative [...] ventricular cavity. 4. SPECT images: Attenuation-corrected and psd-zwmpyhgvjwd-gfcaevadb SPECT images were evaluated. SPECT images demonstrate normal myocardial perfusion. There is a medium size, mild intensity defect located in the ubsxm-lh-ngbmsf inferior myocardium . The defect is fixed [...] MD, Cardiology Attending /KERRI LONG-[facility] May 15, 2024 09:57 AM CHEST TWO(2) VIEW PA&LAT: ADELSO MISHRA [id number] -1945 M Ex Date: MAY 15, 2024@09:57 Req Phys: LAURA STEINBERG Loc: DEANNE PACT PHONE LULU (Req'g Img Loc: [facility] RADIOLOGY Service: [place] [address] (Case [id number] COMPLETE)CHEST TWO(2) VIEW PA&LAT (RAD Detailed) CPT:90425 Reason for Study: dyspnea Clinical History: Report Status: Verified Date Reported: MAY 17, 2024 Date Verified: MAY 17, 2024 Grain Elevator Man E-Sig: Report: CHEST TWO(2) VIEW PA&LAT, 05/15/2024 10:02 AM EST INDICATION: dyspnea COMPARISON: April 16, 2024 Impression: Calcified granuloma right lung apex. No edema or pneumonia. No pleural effusion or pneumothorax. Heart size normal. No acute osseous abnormality. Primary Diagnostic Code: NO ALERT REQUIRED Primary Interpreting Staff: KAILYN STEELE, Staff Physician Verified by compact assembler for KAILYN STEELE /KAILYN AVILES [facility] Encounter Notes: All associated encounter notes This section contains the clinical notes associated to the Encounter. Date/Time Encounter Note(s) Provider Source Jun 01, 2024 12:49 PM ADDENDUM: LOCAL TITLE: Addendum STANDARD TITLE: ADDENDUM DATE OF NOTE: JUN 01, 2024@12:49:44 ENTRY DATE: JUN 01, 2024@12:49:45 AUTHOR: LAURA STEINBERG EXP COSIGNER: URGENCY: STATUS: COMPLETED Please schedule post hosp f/u F2F next available. Please get records from [facility] including cardiac catheterization report. /peyton/ Laura Steinberg MD Primary Care Physician Signed: 06/01/2024 12:50 Receipt Acknowledged By: 06/03/2024 07:55 /peyton/ JOE PÉREZ ADVANCED NIGHT ASSISTANT --- Original Document --- 05/30/24 [facility] PRESENTING CARE COORD PLAN NOTE: Emergency Notification Intake Date Presenting to the Facility: May Date of note has been modified to reflect Date of Service. Reason for modification: HOSPITAL NOTIFICATION DATE/TIME: 05/29/2024 1602 EST Method of Contact: Notified from [employer] worklist Notification ID: [id number] [facility] Referral #: [facility] Name: Hospital: [facility] Address: City: [place] State: [place] Zip Code: Phone : [facility] Point of Contact: Name: YOBANI FLETCHER Phone: [phone] Chief complaint: CHEST PAIN Primary Diagnosis: Disposition Transfer Transfer to other [facility] Higher level of care Facility Name: [facility] Street Address: City: [place] State: [place] CONTINUED STAY REVIEW Contact Date: May Date of Admission: May Facility Name: [facility] Point of Contact Name: YELITZA Point of Contact Dept: CARE MANAGEMENT Point of Contact Phone: [phone] Point of Contact Fax Number: Method of Contact: Phone Call Inpatient level of care required: ICU Stepdown PT SIGNED REFUSAL TO TRANSFER TO [facility]. PT IS STABLE. CM TO FAX REFUSAL AND CLINICAL UPDATE/DC SUMMARY WHEN AVAILABLE TO [phone]. /es/ Miriam Niño MSN, taxation economist Nurse Coordinator Signed: 05/30/2024 09:06 Receipt Acknowledged By: 05/30/2024 09:51 /es/ MERE VELEZ Registered Nurse 05/30/2024 09:20 /es/ Laura Steinberg MD Primary Care Physician 05/30/2024 ADDENDUM STATUS: COMPLETED The faxed [facility] FORM [id number] Refusal of Transfer to [facility] was received 05/30/2024 from [facility] refused to transfer 05/30/2024 at 08:30 Form was signed by: Barbra Sherman Witnessed by: Yelitza Ferrell RN SEE 05/30/2024 REFUSAL OF TRANSFER TO [facility] SCANNED NOTE FOR COPY OF REFUSAL /es/ LELIA L MARCOS Interfacility Mold Engraver Signed: 05/30/2024 10:14 Receipt Acknowledged By: 05/30/2024 11:05 /es/ Miriam Niño MSN, taxation economist Nurse Coordinator 05/30/2024 ADDENDUM STATUS: COMPLETED Episode of Care Complete Determination: Closed - Approved for 1703 [id number] [facility] Transfer Office notified of Veterans presentation to the aforementioned hospital via [facility] Share[employer] Site. [facility] made eligibility determination and sent payment authorization and/or denial information directly to the healthcare provider. Any questions regarding determination, claims, & billing may be made to the following: bright box Telephone Number: [phone] ([phone]) POM (Payment Operations and Management) Claims Status Line: [facility] Provider Services Region 2: /peyton/ Miriam Niño MSN, taxation economist Nurse Coordinator Signed: 05/30/2024 13:02 06/03/2024 ADDENDUM STATUS: COMPLETED Received fax from [facility]. Gave to pcp. /peyton/ JOE PÉREZ ADVANCED NIGHT ASSISTANT Signed: 06/03/2024 07:56 LAURA STEINBERG-Joseph [facility] May 30, 2024 10:11 AM ADDENDUM: LOCAL TITLE: Addendum STANDARD TITLE: ADDENDUM DATE OF NOTE: MAY 30, 2024@10:11:31 ENTRY DATE: MAY 30, 2024@10:11:33 AUTHOR: LELIA RODRÍGUEZ EXP COSIGNER: URGENCY: STATUS: COMPLETED The faxed [facility] FORM [phone] Refusal of Transfer to [facility] was received 05/30/2024 from [facility] refused to transfer 05/30/2024 at 08:30 Form was signed by: Adelso Mishra, Witnessed by: Yelitza Ferrell RN SEE 05/30/2024 REFUSAL OF TRANSFER TO [facility] SCANNED NOTE FOR COPY OF REFUSAL /peyton/ LELIA RODRÍGUEZ Interfacility Mold Engraver Signed: 05/30/2024 10:14 Receipt Acknowledged By: 05/30/2024 11:05 /peyton/ Miriam Niño MSN, taxation economist Nurse Coordinator --- Original Document --- 05/30/24 [facility] SELF PRESENTING CARE COORD PLAN NOTE: Emergency Notification Intake Date Presenting to the Facility: May Date of note has been modified to reflect Date of Service. Reason for modification: HOSPITAL NOTIFICATION DATE/TIME: 05/29/2024 1602 EST Method of Contact: Notified from ECR worklist Notification ID: [id number] [facility] Address: City: [place] State: [place] Zip Code: Phone : [facility] Point of Contact: Name: YOBANI FLETCHER Phone: [phone] Chief complaint: CHEST PAIN Primary Diagnosis: Disposition Transfer Transfer to other [facility] Higher level of care Facility Name: [facility] Street Address: City: [place] State: [place] CONTINUED STAY REVIEW Contact Date: May Date of Admission: May Facility Name: [facility] Point of Contact Name: YELITZA Point of Contact Dept: CARE MANAGEMENT Point of Contact Phone: [phone] Point of Contact Fax Number: Method of Contact: Phone Call Inpatient level of care required: ICU Stepdown PT SIGNED REFUSAL TO TRANSFER TO [facility]. PT IS STABLE. CM TO FAX REFUSAL AND CLINICAL UPDATE/DC SUMMARY WHEN AVAILABLE TO [phone]. /peyton/ Miriam Niño MSN, taxation economist Nurse Coordinator Signed: 05/30/2024 09:06 Receipt Acknowledged By: 05/30/2024 09:51 /es/ MERE VELEZ Registered Nurse 05/30/2024 09:20 /es/ Laura Steinberg MD Primary Care Physician LELIA RODRÍGUEZ-[facility] May 30, 2024 08:52 AM NONVA NOTE: LOCAL TITLE: [facility] SELF PRESENTING CARE COORD PLAN STANDARD TITLE: NONVA NOTE DATE OF NOTE: MAY 30, 2024@08:52 ENTRY DATE: MAY 30, 2024@09:01:26 AUTHOR: MIRIAM NIÑO EXP COSIGNER: URGENCY: STATUS: COMPLETED [facility] SELF PRESENTING CARE COORD PLAN NOTE Has ADDENDA Emergency Notification Intake Date Presenting to the Facility: May Date of note has been modified to reflect Date of Service. Reason for modification: HOSPITAL NOTIFICATION DATE/TIME: 05/29/2024 1602 EST Method of Contact: Notified from [employer] worklist Notification ID: [id number] [facility] Address: City: [place] State: [place] Zip Code: Phone : Community Facility Point of Contact: Name: YOBANI FLETCHER Phone: [phone] Chief complaint: CHEST PAIN Primary Diagnosis: Disposition Transfer Transfer to other [facility] Facility Higher level of care Facility Name: [facility] Street Address: City: [place] State: [place] CONTINUED STAY REVIEW Contact Date: May Date of Admission: May Facility Name: [facility] Point of Contact Name: YELITZA Point of Contact Dept: CARE MANAGEMENT Point of Contact Phone: [phone] Point of Contact Fax Number: Method of Contact: Phone Call Inpatient level of care required: ICU Stepdown PT SIGNED REFUSAL TO TRANSFER TO [facility]. PT IS STABLE. CM TO FAX REFUSAL AND CLINICAL UPDATE/DC SUMMARY WHEN AVAILABLE TO [phone]. /es/ Miriam Niño MSN, taxation economist Nurse Coordinator Signed: 05/30/2024 09:06 Receipt Acknowledged By: 05/30/2024 09:51 /es/ MERE VELEZ Registered Nurse 05/30/2024 09:20 /es/ Laura Steinberg MD Primary Care Physician 05/30/2024 ADDENDUM STATUS: COMPLETED The faxed [facility] FORM [phone] Refusal of Transfer to [facility] was received 05/30/2024 from [facility] refused to transfer 05/30/2024 at 08:30 Form was signed by: Barbra Sherman Witnessed by: Yelitza Ferrell, YEYO SEE 05/30/2024 REFUSAL OF TRANSFER TO [facility] SCANNED NOTE FOR COPY OF REFUSAL /es/ LELIA L JENKINS Interfacility Mold Engraver Signed: 05/30/2024 10:14 Receipt Acknowledged By: 05/30/2024 11:05 /es/ Miriam Niño MSN, taxation economist Nurse Coordinator 05/30/2024 ADDENDUM STATUS: COMPLETED Episode of Care Complete Determination: Closed - Approved for 1703 [id number] [facility] of [facility] presentation to the aforementioned hospital via [facility] Share[employer] Site. [facility] made eligibility determination and sent payment authorization and/or denial information directly to the healthcare provider. Any questions regarding determination, claims, & billing may be made to the following: [facility] Telephone Number: [phone] ([phone]) POM (Payment Operations and Management) Claims Status Line: [facility] Provider Services Region 2: /es/ Miriam Niño MSN, taxation economist Nurse Coordinator Signed: 05/30/2024 13:02 06/01/2024 ADDENDUM STATUS: COMPLETED Please schedule post hosp f/u F2F next available. Please get records from [facility] including cardiac catheterization report. /es/ Laura Steinberg MD Primary Care Physician Signed: 06/01/2024 12:50 Receipt Acknowledged By: 06/03/2024 07:55 /es/ JOE PÉREZ ADVANCED NIGHT ASSISTANT 06/03/2024 ADDENDUM STATUS: COMPLETED Received fax from [facility]. Gave to pcp. /es/ JOE PÉREZ ADVANCED NIGHT ASSISTANT Signed: 06/03/2024 07:56 06/04/2024 ADDENDUM STATUS: COMPLETED Discharge Disposition Date of discharge: unknown Disposition Discharge to home faxed med records for dc summary per cprs, PC has rec'd records but they are not viewable. /es/ Abigail ABRAHAMN taxation economist Nurse Coordinator Signed: 06/04/2024 09:07 MIRIAM NIÑO-LOWELL [facility]
--- OUTSIDE RECORDS SUMMARY | 2024-07-24 21:26 | XMS_ITS | Encounter Summary ---
Author Name [facility] [place] Organization [facility] [place] Address [address] [place] [id number] Care Team Providers Care Rag Collector Name Role Phone LAURA MCKEON Primary Care [...] PART A Oct 14, 2009 PART A [id number] Alex GALLEGO PATIENT MEDICARE (WNR) MEDICARE (M) PART B Oct 14, 2009 PART B [id number] Alex GALLEGO PATIENT MEDICARE (WNR) MEDICARE (M) PART A Oct 14, 2009 PART A [id number] Alex GALLEGO PATIENT MEDICARE (WNR) MEDICARE (M) PART B Oct 14, 2009 PART B [id number] Alex GALLEGO PATIENT MEDICARE (WNR) MEDICARE (M) PART A Oct 14, 2009 PART A [id number] Alex GALLEGO PATIENT MEDICARE (WNR) MEDICARE (M) PART B Oct 14, 2009 PART B [id number] Alex GALLEGO PATIENT Selected Encounter This section includes the information on record at [place] for the Encounter. Date/Time Encounter Type Encounter Description Reason Provider Source Jan 31, 2024 02:28 PM Outpatient Encounter AMBULATORY [place] Encounter Template Text not used by [place] Plan of Treatment: Future Appointments (+ 6 months) and Future Tests (+/- 45 days) The Plan of Treatment section includes future care activities for the patient from all [place] [facility]. This section includes future appointments and future orders which are active, pending or scheduled. Future Appointments This section includes appointments that were scheduled to occur 6 months from the date of the Encounter, up to a maximum of 20 appointments. The data comes from all [place] treatment facilities. Appointment Date/Time Appointment Type Appointme nt Facility Name Feb 14, 2024 08:30 AM [facility]ORY - [facility]ONE [facility] Feb 14, 2024 10:00 AM [facility] Feb 27, 2024 02:00 PM [facility]ORY - NONE [facility] Feb 28, 2024 01:30 PM AM[facility]ULATORY - SURG[facility] Feb 28, 2024 02:30 PM AMBULATORY - REHAB MEDICIN [facility] Feb 29, 2024 09:20 AM AMBULATORY - SURGERY [facility] Mar 04, 2024 09:00 AM AM[facility] - [facility]RY [facility] Mar 17, 2024 01:00 PM AMBULATORY - SURGERY [facility] Mar 18, 2024 08:30 AM AMBULATORY - REHAB MEDICIN E [facility] Mar 18, 2024 10:00 AM AMBULATORY - SURGERY [facility] Mar 28, 2024 08:00 AM [facility]ORY - NONE [facility] Apr 01, 2024 10:00 AM AM[facility] - [facility]RY [facility] Apr 15, 2024 09:00 AM [facility] Apr 16, 2024 11:35 AM [facility] Apr 25, 2024 08:30 AM [facility] Apr 29, 2024 10:00 AM [facility] May 06, 2024 10:00 AM [facility] - [facility] May 07, 2024 10:00 AM [facility]UL[facility] - [facility] May 15, 2024 10:30 AM AMBULATORY - REHAB MEDICIN E [facility] May 20, 2024 08:00 AM [facility] Lab Results: +/- 30 days of the [...] Type Comment Feb 14, 2024 10:41 AM [facility] N MICROALBUMIN/CREAT RATIO URINE Specimen Type: URINE No comment entered. Ordering Provider: LAURA MCKEON Report Released Date/Time: Feb 14, 2024 09:03 AM Reporting Lab: [address] [address] Performing Lab: [address] [address] CREATININE 133.0 mg/dL MICROALBUMIN QUANT 5.8 mg/L 0.0-30.0 .MICROALBUMIN/CREA RATIO 4.4 ug/mg{creat} Feb 14, 2024 10:41 AM [facility] DRUG SCREEN EXPANDED IN-HOUSE URINE Specimen Type: [...] Feb 14, 2024 09:03 AM Reporting Lab: [facility] [address] [facility] [address] Performing Lab: [address] [address] TETRAHYDROCANNABINOL SCREEN NEG Cuto ff < 50 [...] < 1 Feb 14, 2024 10:19 AM [facility] LIPID PROFILE PLASMA Specimen Type: PLASM A [...] Feb 14, 2024 09:03 AM Reporting Lab: [address] [address] Performing Lab: [address] [address] CHOLESTEROL 161 mg/dL 0-199 TRIGLYCERIDE 84 mg/dL 0-149 HDL CHOLESTEROL 54 mg/dL 40-69 DIRECT LDL CHOL. 95 mg/dL 0-100 Feb 14, 2024 10:19 AM [facility] GLYCOHEMOGLOBIN BLOOD Specimen Type: BLOOD Comment: [place] guidelines for A1c interpretation: Glycemic control targets are based on Shared Decision Making between clinicians and patients. Criteria used to establish an A1c target recommendation can be found at https://www.nc.gov/qualityandpatientsafety/ and include the use of result accuracy [...] 8.73 and 9.27. Ref: https://ngsp.org/CAPdata.asp. The in-house [employer] D-100 analyzer has a historical CV <= 2%. Contact the laboratory for further performance characteristics of this assay. Ordering Provider: LAURA MCKEON Report Released Date/Time: Feb 14, 2024 09:03 AM Reporting Lab: [address] [address] Performing Lab: [facility] [address] [facility] [address] GLYCOHEMOGLOBIN 6.0 4.4-6.4 Feb 14, 2024 10:19 AM [facility] B12 VITAMIN PLASMA Specimen Type: PLASM A [...] Feb 14, 2024 09:03 AM Reporting Lab: [facility] [address] [facility] [address] Performing Lab: [facility] [address] [facility] [address] B12 VITAMIN 761 pg/mL 213-816 Feb 14, 2024 10:19 AM [facility]MA Specimen Type: PLASM A [...] Feb 14, 2024 09:03 AM Reporting Lab: [address] [address] Performing Lab: [address] [address] CREATININE 1.38 mg/dL H 0.72-1.25 UREA NITROGEN [...] (CKD-EPI) 52 Feb 14, 2024 10:19 AM [facility] TSH PLASMA Specimen Type: PLASM A Comment: [...] Feb 14, 2024 09:03 AM Reporting Lab: [address] [address] Performing Lab: [place] [id number] TSH 1.1076 m[IU]/mL 0.3500-4.9400 Feb 14, 2024 10:19 AM [facility] CBC/PLT BLOOD Specimen Type: BLOOD No comment entered. Ordering Provider: LAURA MCKEON Report Released Date/Time: Feb 14, 2024 09:03 AM Reporting Lab: [address] [address] Performing Lab: [address] [address] WBC 6.7 10*3/uL 5.0-10.0 RBC 5.17 10*6/uL 4.6-6.2 HGB 15.8 g/dL 14.0-18.0 HCT 47.1 42.0-52.0 MCV 91.1 fL 80.0-94.0 MCH 30.6 pg 27.0-31.0 MCHC 33.5 g/dL 32.0-36.0 PLT 257 10*3/uL 150-450 MPV 10.5 fL 9.0-13.1 RDW 14.4 11.0-16.0 NRBC 0.0 0.0-0.0 Feb 14, 2024 10:19 AM [facility] 25-OH VITAMIN D SERUM Specime n Type: [...] Feb 14, 2024 09:03 AM Reporting Lab: [address] [address] Performing Lab: [address] [address] 25-OH VITAMIN D 42.5 ng/mL 20.0-50.0 Jan 31, 2024 11:09 AM [facility] GLUCOSE-HAND MONITOR CAPILLARY Specime n Type: CAPILLARY Comment: $ Test performed by: [id number] Meter #: [id number] Ordering Provider: PELON CHEUNG Report Released Date/Time: Feb 04, 2024 07:19 AM Reporting Lab: [address] [address] Performing Lab: [address] [address] GLUCOSE-HAND MONITOR 125 mg/dL H 71-99 Pathology [...] the Encounter. The data comes from all [place] treatment facilities. Date/Time Pathology Report Provider Source Feb 05, 2024 03:20 PM LR SURGICAL PATHOL OGY REPORT: LOCAL TITLE: LR SURGICAL PATHOLOGY REPORT DATE OF NOTE: FEB 05, 2024@15:20:14 ENTRY DATE: FEB 05, 2024@15:20:14 AUTHOR: ROSS DOBSON COSIGNER: URGENCY: STATUS: COMPLETED $APHDR Reporting Lab: [facility] [CLIA# [id number]] [address] [place] [address] - - - - - - - [...] submitted in one cassette. CPT CODE - 92152 MICROSCOPIC EXAM/DIAGNOSIS: Right long finger cyst, excision: -Findings consistent with digital mucous cyst. /peyton/ Ross Dobson MD Pathologist Signed Feb 05, 2024@15:20 Performing Laboratory: Surgical Pathology Report Performed By: [facility] [IA# [id number]] [address] [place] [address] $FTR - - - - - - [...] - - ERIK GALLEGO STANDARD FORM 515 ID:[id number] SEX:M :1945 AGE: 78 LOC:PATH PCP: Laura Mckeon MD /peyton/ Ross Dobson MD Pathologist Signed: 02/05/2024 15:20 ROSS DOBSON-D [facility] Jan 31, 2024 12:13 PM LR SURGICAL PATHOL OGY REPORT: LOCAL TITLE: LR SURGICAL PATHOLOGY REPORT DATE OF NOTE: JAN 31, 2024@12:13:13 ENTRY DATE: JAN 31, 2024@:13:13 AUTHOR: JUDY SIGALA EXP COSIGNER: URGENCY: STATUS: COMPLETED $APHDR Reporting Lab: [facility] [IA# [id number]] [address] [place] [address] - - - - - - - [...] CELL CARCINOMA LEFT PREAURICULAR CHEEK. CPT CODE: 23481 I ACTED BOTH THE SURGEON AND THE PATHOLOGIST FOR THIS CASE. PLEASE SEE CORRESPONDING MOHS NOTE IN CPRS AND MOHS MAP SCANNED TO [employer]. /es/ JUDY SIGALA Chief, Dermatology Signed Jan 31, 2024@12:13 Performing Laboratory: Surgical Pathology Report Performed By: [facility] [CLIA# [id number]] [address] [place] [address] $FTR - - - - - - - - - - - - - - - - - - - - - - - - - - - - - - - - - - - - - - - - (End of report) JUDY SIGALA MD [facility] Date Jan 22, 2024 - - - - - - - - - - - - - - - - - - - - - - - - - - - - - - - - - - - - - - - - ERIK GALLEGO STANDARD FORM 515 ID:[id number] SEX:M :1945 AGE: 78 LOC:DERM PCP: Laura Mckeon MD /peyton/ JUDY SIGALA Chief, Dermatology Signed: 01/31/2024 12:13 JUDY SIGALA-CDD [facility]
--- OUTSIDE RECORDS SUMMARY | 2024-07-24 21:26 | XMS_ITS | Encounter Summary ---
Author Name [facility] [place] Organization [place] Address [address] [place] [address] Care Team Providers Care Vegetable Trimmer Name Role Phone LAURA MCKEON Primary Care [...] PART A Oct 14, 2009 PART A [id number] Alex GALLEGO PATIENT MEDICARE (WNR) MEDICARE (M) PART B Oct 14, 2009 PART B [id number] Alex GALLEGO PATIENT MEDICARE (WNR) MEDICARE (M) PART A Oct 14, 2009 PART A [id number] Alex GALLEGO PATIENT MEDICARE (WNR) MEDICARE (M) PART B Oct 14, 2009 PART B [id number] Alex GALLEGO PATIENT MEDICARE (WNR) MEDICARE (M) PART A Oct 14, 2009 PART A [id number] Alex GALLEGO PATIENT MEDICARE (WNR) MEDICARE (M) PART B Oct 14, 2009 PART B [id number] Alex GALLEGO PATIENT Selected Encounter This section includes the information on record at [place] for the Encounter. Date/Time Encounter Type Encounter Description Reason Provider Source Jul 14, 2024 02:37 PM PH1 ASSMT&MGMT NQHP 5-10 TELEPHONE/MEDICIN E ICD-10-CM Z71.89 Other specified counseling PASCUAL MCKINLEY Encounter Template Text not used by [place] Assessments - Encounter Diagnoses This section includes the primary and secondary diagnoses documented for the Encounter. Date/Time Primary/Secondary Diagnosis Diagnosis Name Provider Source Jul 14, 2024 02:37 PM PRIMARY Other specified counseling RENEE MCKINLEY [facility] Jul 14, 2024 02:37 PM SECONDARY Other general symptoms and signs RENEE MCKINLEY [facility] Jul 14, 2024 02:37 PM SECONDARY Person consulting for explanation of exam or test findings RENEE MCKINLEY [facility] Plan of Treatment: Future Appointments (+ 6 months) and Future Tests (+/- 45 days) The Plan of Treatment section includes future care activities for the patient from all [place] [facility]. This section includes future appointments and future orders which are active, pending or scheduled. Future Appointments This section includes appointments that were scheduled to occur 6 months from the date of the Encounter, up to a maximum of 20 appointments. The data comes from all [place] treatment facilities. Appointment Date/Time Appointment Type Appointme nt Facility Name Jul 24, 2024 03:00 PM [facility]ORY - [facility] Aug 05, 2024 09:00 AM AM[facility]ULATORY - MEDICINE [facility] Aug 11, 2024 10:00 AM [facility] - [facility]RY [facility] Aug 12, 2024 09:00 AM AMBULATORY - MEDICINE [facility] August 18, 2024 09:00 AM [facility] September 02, 2024 08:20 AM [facility] - [facility] Oct 01, 2024 09:00 AM [facility] - [place]ONE [place] [facility] Oct 30, 2024 09:00 AM AMBULATORY - PSYCHIATRY [place] [facility]OL[facility] Dec 09, 2024 08:00 AM AMBULATORY - NONE [place] [facility] Dec 31, 2024 08:30 AM AMBULATORY - MEDICINE [facility] Lab Results: +/- 30 days of the encounter This section includes the Chemistry and Hematology Lab Results on record with [place] for the patient. Radiology Reports and Pathology Reports are provided separately, in subsequent sections. Lab Results This section contains the Chemistry/Hematology Results that were resulted 30 days before or 30 daysafter the date of the Encounter. Date/Time Source Result Type Result - Unit Interpretation Reference Range Specimen Type Comment Jun 30, 2024 03:27 PM [facility] BNP ([place]ARD) PLASMA Specimen Type: PLASMA Comment: BNP results less than or equal to 100 pg/ml are medicare sales representative of normal values in patients without CHF. BNP results greater than 100 pg/ml are considered abnormal and suggestive of CHF. Higher BNP concentrations in the first 72 hours after Acute Coronary Syndrome are associated with an increased risk of , myocardial infarction and CHF. Ordering Provider: SACHI SAINZ Report Released Date/Time: Jun 30, 2024 03:21 PM Reporting Lab: [facility] [address] [place] [address] Performing Lab: [address] [address] BNP ([place]OD[place]ARD) 22 pg/mL 0-100 Jun 30, [...] Jun 30, 2024 03:21 PM Reporting Lab: [address] [address] Performing Lab: [address] [address] CREATININE 1.43 mg/dL H 0.72-1.25 UREA NITROGEN [...] Jun 30, 2024 03:21 PM Reporting Lab: [address] [address] Performing Lab: [facility] [address] [facility] [address] WBC 7.2 10*3/uL 5.0-10.0 RBC 4.85 10*6/uL [...] the Encounter. The data comes from all [place] treatment facilities. Date/Time Pathology Report Provider Source Jul 10, 2024 09:41 AM LR SURGICAL PATHOL KIP REPORT: LOCAL TITLE: LR SURGICAL PATHOLOGY REPORT DATE OF NOTE: JUL 10, 2024@09:41:15 ENTRY DATE: JUL 10, 2024@09:41:15 AUTHOR: JOE LEUNG COSIGNER: URGENCY: STATUS: COMPLETED $APHDR Reporting Lab: [facility] [CLIA# [id number]] [address] [place] [address] - - - - - - - [...] left earlobe and consists of an unoriented, jqc-vsfx-otlnmnt, yellow/white shave of skin measuring 0.5 x 0.4 x 0.2 cm. A rough papule is identified over the skin surface measuring 0.4 x 0.3 cm. The cut surface is yellow/white and grossly unremarkable. The cut surface is inked blue. The specimen is bisected to reveal a white solid interior. The specimen is submitted entirely in a single cassette. CPT CODE - 85874 MICROSCOPIC EXAM/DIAGNOSIS: Skin, below left earlobe, shave biopsy: -Squamous cell carcinoma in-situ. /peyton/ JOE LEUNG pathologist Signed Jul 10, 2024@09:41 Performing Laboratory: Surgical Pathology Report Performed By: [facility] [CLIA# [id number]] [address] [place] [address] $FTR - - - - - - - - - - - - - - - - - - - - - - - - - - - - - - - - - - - - - - - - (End of report) JOE LEUNG MD [facility] Date Jul 10, 2024 - - - - - - - - - - - - - - - - - - - - - - - - - - - - - - - - - - - - - - - - ERIK GALLEGO STANDARD FORM 515 ID:[id number] SEX:M :1945 AGE: 78 LOC:PATH PCP: Laura Mckeon MD /peyton/ JOE LEUNG pathologist Signed: 07/10/2024 09:41 JOE LEUNG [facility] Encounter Notes: All associated encounter notes This section contains the clinical notes associated to the Encounter. Date/Time Encounter Note(s) Provider Source Jul 14, 2024 02:37 PM DERMATOLOGY TELEPH ONE ENCOUNTER NOTE: LOCAL TITLE: DERMATOLOGY TELEPHONE CARE NOTE STANDARD TITLE: DERMATOLOGY TELEPHONE ENCOUNTER NOTE DATE OF NOTE: JUL 14, 2024@14:37 ENTRY DATE: JUL 14, 2024@14:37:35 AUTHOR: RENEE MCKINLEY EXP COSIGNER: URGENCY: STATUS: COMPLETED Patient with Squamous cell carcinoma Patient called and notified of result and will be treated with edc. pt was educated on edc vs efudex. he chose edc. Patient/family was educated on biopsy results, short term care, and assistant terminal manager treatment plan. Patient/family verbalized understanding of biopsy results, education, and POC. [facility] to please schedule edc with pa2 08/05/24 [id number] Patient aware of appointment Please send reminder letter /peyton/ RENEE MCKINLEY RN, BSN, [facility] [employer] [facility]PC-CDD Signed: 07/14/2024 14:38 Receipt Acknowledged By: 07/14/2024 14:39 /peyton/ Ayla Becerra [employer] PROFESSOR RENEE MCKINLEY-THIERRYD [facility]
--- OUTSIDE RECORDS SUMMARY | 2024-07-24 21:26 | XMS_ITS | Encounter Summary ---
Author Name [facility] [place] [facility] [place] Address [address] [place] [address] Care Team Providers Care Sales Representative Facility Services Name Role Phone LAURA MCKEON Primary Care [...] PART A Oct 14, 2009 PART A [id number] Alex GALLEGO PATIENT MEDICARE (WNR) MEDICARE (M) PART B Oct 14, 2009 PART B [id number] Alex GALLEGO PATIENT MEDICARE (WNR) MEDICARE (M) PART A Oct 14, 2009 PART A [id number] Alex GALLEGO PATIENT MEDICARE (WNR) MEDICARE (M) PART B Oct 14, 2009 PART B [id number] Alex GALLEGO PATIENT MEDICARE (WNR) MEDICARE (M) PART A Oct 14, 2009 PART A [id number] Alex GALLEGO PATIENT MEDICARE (WNR) MEDICARE (M) PART B Oct 14, 2009 PART B [id number] Alex GALLEGO PATIENT Selected Encounter This section includes the information on record at [place] for the Encounter. Date/Time Encounter Type Encounter Description Reason Pro vider Source Feb 01, 2024 05:49 AM Outpatient Encounter AMBULATORY IHE Encounter Template Text not used by [place] Plan of Treatment: Future Appointments (+ 6 [...] 2024 08:30 AM [facility] Feb 14, 2024 10:00 AM [facility] [place] [facility] Feb 27, 2024 02:00 PM [facility] Feb 28, 2024 01:30 PM [facility] [place] [facility] Feb 28, 2024 02:30 PM AMBULATORY - REHAB MEDICIN E [facility] Feb 29, 2024 09:20 AM [facility] - [facility] [place] [facility] Mar 04, 2024 09:00 AM AMBULATORY - PS[facility]CHIATRY [facility] Mar 17, 2024 01:00 PM AM[facility] - [facility] [place] [facility] Mar 18, 2024 08:30 AM AMBULATORY - REHAB MEDICIN E [facility] Mar 18, 2024 10:00 AM [facility] [place] [facility] Mar 28, 2024 08:00 AM [facility] Apr 01, 2024 10:00 AM [facility]AT[facility] - PS[facility]CHIATRY [facility] Apr 15, 2024 09:00 AM AMBULATORY - PSYCHIATRY [facility] Apr 16, 2024 11:35 AM AMBULATORY - MEDICINE [facility] Apr 25, 2024 08:30 AM [facility] Apr 29, 2024 10:00 AM [facility] May 06, 2024 10:00 AM AMBULATORY - PSYCHIATRY [facility] May 07, 2024 10:00 AM AMBULATORY - MEDICINE [facility] May 15, 2024 10:30 AM AMBULATORY - REHAB MEDICIN E [facility] May 20, 2024 08:00 AM [facility] - [facility]ONE [place] [facility] Lab Results: +/- 30 days [...] Type Comment Feb 14, 2024 10:41 AM [facility] N MICROALBUMIN/CREAT RATIO URINE Specimen Type: URINE No comment entered. Ordering Provider: LAURA MCKEON Report Released Date/Time: Feb 14, 2024 09:03 AM Reporting Lab: [address] [address] Performing Lab: [address] [address] CREATININE 133.0 mg/dL MICROALBUMIN QUANT 5.8 mg/L 0.0-30.0 .MICROALBUMIN/CREA RATIO 4.4 ug/mg{creat} Feb 14, 2024 10:41 AM [facility] DRUG SCREEN EXPANDED IN-HOUSE URINE [...] Feb 14, 2024 09:03 AM Reporting Lab: [address] [address] Performing Lab: [address] [address] TETRAHYDROCANNABINOL SCREEN NEG Cuto ff < 50 [...] < 1 Feb 14, 2024 10:19 AM [facility] LIPID PROFILE PLASMA Specimen Type: [...] Feb 14, 2024 09:03 AM Reporting Lab: [address] [address] Performing Lab: [address] [address] CHOLESTEROL 161 mg/dL 0-199 TRIGLYCERIDE 84 mg/dL 0-149 HDL CHOLESTEROL 54 mg/dL 40-69 DIRECT LDL CHOL. 95 mg/dL 0-100 Feb 14, 2024 10:19 AM [facility] GLYCOHEMOGLOBIN BLOOD Specimen Type: BLOOD Comment: [place] guidelines for A1c interpretation: Glycemic control targets are based on Shared Decision Making between clinicians and patients. Criteria used to establish an A1c target recommendation can be found at https://www.[place].gov/qualityandpatientsafety/ and include the use of result accuracy [...] 8.73 and 9.27. Ref: https://ngsp.org/CAPdata.asp. The in-house InfiniDB-Pin or Peg D-100 analyzer has a historical CV <= 2%. Contact the laboratory for further performance characteristics of this assay. Ordering Provider: LAURA MCKEON Report Released Date/Time: Feb 14, 2024 09:03 AM Reporting Lab: [address] [address] Performing Lab: [address] [address] GLYCOHEMOGLOBIN 6.0 4.4-6.4 Feb 14, 2024 10:19 AM [facility] TSH PLASMA Specimen Type: PLASM A [...] Feb 14, 2024 09:03 AM Reporting Lab: [address] [address] Performing Lab: [facility] [address] [facility] [address] TSH 1.1076 m[IU]/mL 0.3500-4.9400 Feb 14, 2024 10:19 AM [facility] PLASMA Specimen Type: PLASM [...] Feb 14, 2024 09:03 AM Reporting Lab: [address] [address] Performing Lab: [address] [address] CREATININE 1.38 mg/dL H 0.72-1.25 UREA NITROGEN [...] (CKD-EPI) 52 Feb 14, 2024 10:19 AM [facility] B12 VITAMIN PLASMA Specimen Type: [...] Feb 14, 2024 09:03 AM Reporting Lab: [address] [address] Performing Lab: [address] [address] B12 VITAMIN 761 pg/mL 213-816 Feb 14, 2024 10:19 AM [facility] CBC/PLT BLOOD Specimen Type: BLOOD No comment entered. Ordering Provider: LAURA MCKEON Report Released Date/Time: Feb 14, 2024 09:03 AM Reporting Lab: [address] [address] Performing Lab: [address] [address] WBC 6.7 10*3/uL 5.0-10.0 RBC 5.17 10*6/uL 4.6-6.2 HGB 15.8 g/dL 14.0-18.0 HCT 47.1 42.0-52.0 MCV 91.1 fL 80.0-94.0 MCH 30.6 pg 27.0-31.0 MCHC 33.5 g/dL 32.0-36.0 PLT 257 10*3/uL 150-450 MPV 10.5 fL 9.0-13.1 RDW 14.4 11.0-16.0 NRBC 0.0 0.0-0.0 Feb 14, 2024 10:19 AM [facility] 25-OH VITAMIN D SERUM Specime [...] Feb 14, 2024 09:03 AM Reporting Lab: [address] [address] Performing Lab: [address] [address] 25-OH VITAMIN D 42.5 ng/mL 20.0-50.0 Jan 31, 2024 11:09 AM [facility] GLUCOSE-HAND MONITOR CAPILLARY Specime n Type: CAPILLARY Comment: $ Test performed by: [id number] Meter #: [id number] Ordering Provider: PELON CHEUNG Report Released Date/Time: Feb 04, 2024 07:19 AM Reporting Lab: [address] [address] Performing Lab: [address] [address] GLUCOSE-HAND MONITOR 125 mg/dL H 71-99 Pathology [...] the Encounter. The data comes from all [place] treatment facilities. Date/Time Pathology Report Provider Source Feb 05, 2024 03:20 PM LR SURGICAL PATHOL OGY REPORT: LOCAL TITLE: LR SURGICAL PATHOLOGY REPORT DATE OF NOTE: FEB 05, 2024@15:20:14 ENTRY DATE: FEB 05, 2024@15:20:14 AUTHOR: ROSS DOBSON EXP COSIGNER: URGENCY: STATUS: COMPLETED $APHDR Reporting Lab: [facility] [CLIA# [id number]] [address] [place] [address] - - - - - - - [...] submitted in one cassette. CPT CODE - 12178 MICROSCOPIC EXAM/DIAGNOSIS: Right long finger cyst, excision: -Findings consistent with digital mucous cyst. /peyton/ Ross Dobson MD Pathologist Signed Feb 05, 2024@15:20 Performing Laboratory: Surgical Pathology Report Performed By: [facility] [IA# [id number]] [address] [place] [phone] $FTR - - - - - - - - - - - - - - - - - - - - - - - - - - - - - - - - - - - - - - - - (End of report) [facility] Feb 05, 2024 - - - - - - - - - - - - - - - - - - - - - - - - - - - - - - - - - - - - - - - - ERIK GALLEGO STANDARD FORM 515 ID:[id number] SEX:M :1945 AGE: 78 LOC:PATH PCP: Laura Mckeon MD /peyton/ Ross Dobson MD Pathologist Signed: 02/05/2024 15:20 ROSS DOBSON-D [facility] Jan 31, 2024 12:13 PM LR SURGICAL PATHOL OGY REPORT: LOCAL TITLE: LR SURGICAL PATHOLOGY REPORT DATE OF NOTE: JAN 31, 2024@12:13:13 ENTRY DATE: JAN 31, 2024@12:13:13 AUTHOR: JUDY SIGALA EXP COSIGNER: URGENCY: STATUS: COMPLETED $APHDR Reporting Lab: [facility] [[facility]# [id number]] [address] [place] [address] - - - - - - - [...] CELL CARCINOMA LEFT PREAURICULAR CHEEK. CPT CODE: 39799 I ACTED BOTH THE SURGEON AND THE PATHOLOGIST FOR THIS CASE. PLEASE SEE CORRESPONDING MOHS NOTE IN CPRS AND MOHS MAP SCANNED TO [employer]. /es/ JUDY SIGALA Chief, Dermatology Signed Jan 31, 2024@12:13 Performing Laboratory: Surgical Pathology Report Performed By: [facility] [CLIA# [id number]] [address] [place] [phone] $FTR - - - - - - - - - - - - - - - - - - - - - - - - - - - - - - - - - - - - - - - - (End of report) JUDY SIGALA MD [facility] Date Jan 22, 2024 - - - - - - - - - - - - - - - - - - - - - - - - - - - - - - - - - - - - - - - - ERIK GALLEGO STANDARD FORM 515 ID:[id number] SEX:M :1945 AGE: 78 LOC:DERM PCP: Laura Mckeon MD /peyton/ JUDY SIGALA Chief, Dermatology Signed: 01/31/2024 12:13 JUDY SIGALA-D [facility]
--- OUTSIDE RECORDS SUMMARY | 2024-07-24 21:26 | XMS_ITS | Encounter Summary ---
Author Name [facility] [place] Organization [facility] [place] Address [address] [place] [address] Care Team Providers Care Holiday Detector Operator Name Role Phone MCKEONLAURA MAYNARD Primary Care [...] PART A Oct 14, 2009 PART A [id number] Alex GALLEGO PATIENT MEDICARE (WNR) MEDICARE (M) PART B Oct 14, 2009 PART B [id number] Alex GALLEGO PATIENT MEDICARE (WNR) MEDICARE (M) PART A Oct 14, 2009 PART A [id number] Alex GALLEGO PATIENT MEDICARE (WNR) MEDICARE (M) PART B Oct 14, 2009 PART B [id number] Alex GALLEGO PATIENT MEDICARE (WNR) MEDICARE (M) PART A Oct 14, 2009 PART A [id number] Alex GALLEGO PATIENT MEDICARE (WNR) MEDICARE (M) PART B Oct 14, 2009 PART B [id number] Alex GALLEGO PATIENT Selected Encounter This section includes the information on record at [place] for the Encounter. Date/Time Encounter Type Encounter Description Reason Provider Source Jan 31, 2024 02:02 PM Outpatient Encounter [facility] EFRENKAYKAY SUSANJennifer Encounter Template Text not used by [place] Plan of Treatment: Future Appointments (+ 6 months) and Future Tests (+/- 45 days) The Plan of Treatment section includes future care activities for the [facility] [place] [facility] This section includes future appointments [...] 2024 08:30 AM [facility] Feb 14, 2024 10:00 AM [facility] [place] [facility] Feb 27, 2024 02:00 PM [facility] Feb 28, 2024 01:30 PM [facility]ORY - [place]GERY [place] [facility] Feb 28, 2024 02:30 PM AMBULATORY - REHAB MEDICIN E [facility] Feb 29, 2024 09:20 AM [facility]ORY - [place]GERY [place] [facility] Mar 04, 2024 09:00 AM AMBULATORY - PSYCHIATRY [facility] Mar 17, 2024 01:00 PM AMBULATORY - SURGERY [place] [facility] Mar 18, 2024 08:30 AM AMBULATORY - REHAB MEDICIN E [facility] Mar 18, 2024 10:00 AM AM[facility]ORY - [place]GERY [place] [facility] Mar 28, 2024 08:00 AM [facility] Apr 01, 2024 10:00 AM AMBULATORY - PSYCHIATRY [facility] Apr 15, 2024 09:00 AM AMBULATORY - PSYCHIATRY [facility] Apr 16, 2024 11:35 AM AMBULATORY - MEDICINE [facility] Apr 25, 2024 08:30 AM [facility] Apr 29, 2024 10:00 AM AMBULATORY - MEDICINE [facility] May 06, 2024 10:00 AM AMBULATORY - PSYCHIATRY [facility] May 07, 2024 10:00 AM AMBULATORY - MEDICINE [facility] May 15, 2024 10:30 AM AMBULATORY - REHAB MEDICIN E [facility] May 20, 2024 08:00 AM [place]ORY - NONE [place] [facility] Lab Results: +/- 30 days of the [...] Type Comment Feb 14, 2024 10:41 AM [facility] N MICROALBUMIN/CREAT RATIO URINE Specimen Type: URINE No comment entered. Ordering Provider: LAURA MCKEON Report Released Date/Time: Feb 14, 2024 09:03 AM Reporting Lab: [address] [address] Performing Lab: [address] [address] CREATININE 133.0 mg/dL MICROALBUMIN QUANT 5.8 mg/L 0.0-30.0 .MICROALBUMIN/CREA RATIO 4.4 ug/mg{creat} Feb 14, 2024 10:41 AM [facility] DRUG SCREEN EXPANDED IN-HOUSE URINE Specimen [...] Feb 14, 2024 09:03 AM Reporting Lab: [facility] [address] [facility] [address] Performing Lab: [address] [address] TETRAHYDROCANNABINOL SCREEN NEG Cuto ff < 50 [...] < 1 Feb 14, 2024 10:19 AM [facility] LIPID PROFILE PLASMA Specimen Type: PLASM [...] Feb 14, 2024 09:03 AM Reporting Lab: [address] [address] Performing Lab: [address] [address] CHOLESTEROL 161 mg/dL 0-199 TRIGLYCERIDE 84 mg/dL 0-149 HDL CHOLESTEROL 54 mg/dL 40-69 DIRECT LDL CHOL. 95 mg/dL 0-100 Feb 14, 2024 10:19 AM [facility] GLYCOHEMOGLOBIN BLOOD Specimen Type: BLOOD Comment: [place] guidelines for A1c interpretation: Glycemic control targets are based on Shared Decision Making between clinicians and patients. Criteria used to establish an A1c target recommendation can be found at https://www.[place].gov/qualityandpatientsafety/ and include the use of result accuracy [...] 8.73 and 9.27. Ref: https://ngsp.org/CAPdata.asp. The in-house SeeClickFix-FookyZ D-100 analyzer has a historical CV <= 2%. Contact the laboratory for further performance characteristics of this assay. Ordering Provider: LAURA MCKEON Report Released Date/Time: Feb 14, 2024 09:03 AM Reporting Lab: [address] [address] Performing Lab: [address] [address] GLYCOHEMOGLOBIN 6.0 4.4-6.4 Feb 14, 2024 10:19 AM [facility] TSH PLASMA Specimen Type: PLASM A [...] Feb 14, 2024 09:03 AM Reporting Lab: [address] [address] Performing Lab: [address] [address] TSH 1.1076 m[IU]/mL 0.3500-4.9400 Feb 14, 2024 10:19 AM [facility] CBC/PLT BLOOD Specimen Type: BLOOD No comment entered. Ordering Provider: LAURA MCKEON Report Released Date/Time: Feb 14, 2024 09:03 AM Reporting Lab: [address] [address] Performing Lab: [address] [address] WBC 6.7 10*3/uL 5.0-10.0 RBC 5.17 10*6/uL 4.6-6.2 HGB 15.8 g/dL 14.0-18.0 HCT 47.1 42.0-52.0 MCV 91.1 fL 80.0-94.0 MCH 30.6 pg 27.0-31.0 MCHC 33.5 g/dL 32.0-36.0 PLT 257 10*3/uL 150-450 MPV 10.5 fL 9.0-13.1 RDW 14.4 11.0-16.0 NRBC 0.0 0.0-0.0 Feb 14, 2024 10:19 AM [facility] B12 VITAMIN PLASMA Specimen Type: [...] Feb 14, 2024 09:03 AM Reporting Lab: [address] [address] Performing Lab: [address] [address] B12 VITAMIN 761 pg/mL 213-816 Feb 14, 2024 10:19 AM [facility] 25-OH VITAMIN D SERUM Specime n [...] Feb 14, 2024 09:03 AM Reporting Lab: [address] [address] Performing Lab: [address] [address] 25-OH VITAMIN D 42.5 ng/mL 20.0-50.0 Feb 14, 2024 10:19 AM [facility] PLASMA Specimen Type: PLASM A [...] Feb 14, 2024 09:03 AM Reporting Lab: [facility] [address] [facility] [address] Performing Lab: [address] [address] CREATININE 1.38 mg/dL H 0.72-1.25 UREA NITROGEN [...] PHOS 75 U/L 40-150 eGFR (CKD-EPI) 52 Jan 31, 2024 11:09 AM [facility] GLUCOSE-HAND MONITOR CAPILLARY Specime n Type: CAPILLARY Comment: $ Test performed by: [id number] Meter #: [id number] Ordering Provider: PELON CHEUNG Report Released Date/Time: Feb 04, 2024 07:19 AM Reporting Lab: [address] [address] Performing Lab: [address] [address] GLUCOSE-HAND MONITOR 125 mg/dL H 71-99 Pathology [...] Reporting Lab: [facility] [CLIA# [id number]] [address] [place] [address] - - - - - - - [...] submitted in one cassette. CPT CODE - 94226 MICROSCOPIC EXAM/DIAGNOSIS: Right long finger cyst, excision: -Findings consistent with digital mucous cyst. /peyton/ Ross Dobson MD Pathologist Signed Feb 05, 2024@15:20 Performing Laboratory: Surgical Pathology Report Performed By: [facility] [[facility]# [id number]] [address] [place] [address] $FTR - - - - - - [...] - - ERIK GALLEGO STANDARD FORM 515 ID:[id number] SEX:M :1945 AGE: 78 LOC:PATH PCP: Laura Mckeon MD /peyton/ Ross Dobson MD Pathologist Signed: 02/05/2024 15:20 [facility]S DOBSON[facility] Jan 31, 2024 12:13 PM LR SURGICAL PATHOL OGY REPORT: LOCAL TITLE: LR SURGICAL PATHOLOGY REPORT DATE OF NOTE: JAN 31, 2024@12:13:13 ENTRY DATE: JAN 31, 2024@12:13:13 AUTHOR: JUDY SIGALA EXP COSIGNER: URGENCY: STATUS: COMPLETED $APHDR Reporting Lab: [facility] [IA# [id number]] [address] [place] [address] - - - - - - - [...] CELL CARCINOMA LEFT PREAURICULAR CHEEK. CPT CODE: 17726 I ACTED BOTH THE SURGEON AND THE PATHOLOGIST FOR THIS CASE. PLEASE SEE CORRESPONDING MOHS NOTE IN CPRS AND MOHS MAP SCANNED TO [employer]™. /es/ JUDY SIGALA Chief, Dermatology Signed Jan 31, 2024@12:13 Performing Laboratory: Surgical Pathology Report Performed By: [facility] [CLIA# [id number]] [address] [place] [phone] $FTR - - - - - - - - - - - - - - - - - - - - - - - - - - - - - - - - - - - - - - - - (End of report) JUDY SIGALA MD [facility] Date Jan 22, 2024 - - - - - - - - - - - - - - - - - - - - - - - - - - - - - - - - - - - - - - - - ERIK GALLEGO STANDARD FORM 515 ID:[id number] SEX:M :1945 AGE: 78 LOC:DERM PCP: Laura Mckeon MD /peyton/ JUDY SIGALA Chief, Dermatology Signed: 01/31/2024 12:13 JUDY SIGALA[facility] Encounter Notes: All associated encounter notes This section contains the clinical notes associated to the Encounter. Date/Time Encounter Note(s) Provider Source Feb 01, 2024 01:34 PM OPERATIVE NOTE: LOCAL TITLE: OPERATIVE REPORT, ATTENDING STANDARD TITLE: OPERATIVE NOTE DATE OF NOTE: FEB 01, 2024@13:34 ENTRY DATE: FEB 01, 2024@13:34:50 AUTHOR: PELON CHEUNG EXP COSIGNER: URGENCY: STATUS: COMPLETED OPERATIVE REPORT Preop Diagnosis: Right long finger cyst Postop Diagnosis: same Procedure(s): Right long finger cyst excision Findings: cystic structure Attending Surgeon: Edward Surgeon(s): Edward Sociology Research Assistant: Jamel Anesthesia: Local, Moderate Sedation Specimen(s): right long finger cyst Blood Loss: minimal Fluids: none Drains: none Complications: none HISTORY: The patient is a 78 year old male with a persistent mucous cyst of his right long finger who elects to undergo excision. Preoperative consent was obtained after discussion of the risks and benefits of operative intervention including bleeding, infection, scarring, pain, delayed healing, damage to surrounding structures, recurrence and potential for additional surgery. PROCEDURE: THe patient was met in the preoperative holding area, his questions were answered and his right long finger and cyst location were marked. He was brought to the operating room and left in the supine position on the stretcher. After the induction of a satisfactory level of intravenous sedation, his right upper extremity was prepped with Chloraprep and draped in a sterile fashion. A time-out was performed in agreement with Anesthesia, Surgery and Nursing. A digital block was performed with anesthetized with local anesthesia consisting of a 50 50 mixture of 1% lidocaine 1 100,000 with epinephrine and 0.25% marcaine and bicarbonate. A skin incision was made with a 15 blade scalpel directly over lying the cyst excising it in an elliptical fashion. The cyst was deflated but still visible. The cyst was was excised down to the joint capsule with an apparent stalk. A small bone spur was palpated and was smoothed with a rongeur and hemostat. The base was cauterized with bipolar cautery. The incision was then irrigated with normal saline and hemostasis was obtained with bipolar cautery. The incision was extended proximally to perform a radially based skin flap to facilitate closure. The skin was closed with interrupted 4-0 nylon horizontal mattress and simple sutures. Xerform and a dry dressing were applied. The patient tolerated the procedure well and brought to the recovery room in stable condition. Sponge and instrument counts were correct. I was the attending surgeon and was scrubbed throughout the entire case. [phone] /peyton/ PELON CHEUNG staff physician Signed: 02/01/2024 13:54 PELON CHEUNG-CDD [facility] Jan 31, 2024 02:02 PM ANESTHESIOLOGY NOT E: LOCAL TITLE: DEANNE SCHUSTER STANDARD TITLE: ANESTHESIOLOGY NOTE DATE OF NOTE: JAN 31, 2024@14:02 ENTRY DATE: JAN 31, 2024@14:02:11 AUTHOR: KAYKAY SCHWARTZ COSIGNER: URGENCY: STATUS: COMPLETED Patient: ERIK GALLEGO SSN: [id number] Date of Operation: 01/31/2024 Surgery Start Time: 01/31/2024 13:37 Surgery End Time: 01/31/2024 13:54 Anesthesia Care Start: 01/31/2024 13:15 Anesthesia Care End: 01/31/2024 14:01 Anesthesia Method: Monitored 01/31/2024 13:26 (Primary), Level Of Consciousness: Sedated, Monitors Applied, Oxygen Therapy: Nasal Cannula, EtCO2 Verified: Waveform Positioning: Head Neutral, Head And Neck In Alignment With Spine, Pressure Points Padded & Checked, Eyes, Ears And Nose Free Of Pressure ASA Number: 3 Procedure: EXCISION OF RIGHT LONG FINGER MUCOUS CYST Diagnosis: RIGHT LONG FINGER MUCOUS CYST Anesthesia Drugs: Propofol: 35 mg Lidocaine 2% plain: 50 mg Propofol Infusion: 78822.185 mcg FentaNYL: 50 mcg ceFAZolin: 2000 mg Anesthesia Fluids: Oxygen: 155.841 l Ringers Lactate Solution: 500 ml Estimated Blood Loss: 1 ml Staff: --------- PELON CHEUNG, SURGEON PELON CHEUNG, ATT. SURGEON KAYKAY SCHWARTZ PRIN. ANES. [place], JEFFREY S, ANES. SUPER. KAYKAY SCHWARTZ PRIN. ANES. PELON CHEUNG, ATTSam SURGEON Anesthesia Procedure: Procedure 01/31/2024 13:27 In Situ, Site: Arm, Laterality: Left, Catheter Type: Angio, Catheter Size: 20 Ga /peyton/ KAYKAY SCHWARTZ DIRECTOR OF RESEARCH Signed: 01/31/2024 14:02 KAYKAY SCHWARTZ [facility]
--- OUTSIDE RECORDS SUMMARY | 2024-07-24 21:27 | XMS_ITS | Encounter Summary ---
Author Name [facility] [place] Organization [facility] [place] Address [address] [place] [address] Care Team Providers Care Therapist'S Assistant Name Role Phone CYNDI STEINBERG Primary Care [...] PART A Oct 14, 2009 PART A [id number] Alex GALLEGO PATIENT MEDICARE (WNR) MEDICARE (M) PART B Oct 14, 2009 PART B [id number] Alex GALLEGO PATIENT MEDICARE (WNR) MEDICARE (M) PART A Oct 14, 2009 PART A [id number] Alex GALLEGO PATIENT MEDICARE (WNR) MEDICARE (M) PART B Oct 14, 2009 PART B [id number] [phone] Alex GALLEGO PATIENT MEDICARE (WNR) MEDICARE (M) PART A Oct 14, 2009 PART A [id number] Alex GALLEGO PATIENT MEDICARE (WNR) MEDICARE (M) PART B Oct 14, 2009 PART B [id number] [facility] Alex GALLEGO PATIENT Selected Encounter This section includes the information on record at [place] for the Encounter. Date/Time Encounter Type Encounter Description Reason Provider Source Apr 16, 2024 11:35 AM EMERGENCY DEPT VISIT MOD MDM EMERGENCY DEPT ICD-10-CM R53.1 Weakness KEYSHA KIM Encounter Template Text not used by [place] Assessments - Encounter Diagnoses This section includes the primary and secondary diagnoses documented for the Encounter. 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 This section includes future appointments and future orders which are active, pending or scheduled. Future Appointments This section includes appointments that were scheduled to occur 6 months from the date of the Encounter, up to a maximum of 20 appointments. The data comes from all [place] treatment facilities. Appointment Date/Time Appointment Type Appointme nt Facility Name Apr 25, 2024 08:30 AM AMBULATORY - SURGERY DEANNEIN JEWEL-LOWELL [facility] Apr 29, 2024 10:00 AM AMBULAT[facility] MEDICINE [facility] May 06, 2024 10:00 AM AMBULATORY - PSYCHIATRY LE [facility]RI[facility] May 07, 2024 10:00 AM AMBULATORY - MEDICINE [facility] May 15, 2024 10:30 AM AMBULATORY - REHAB MEDICIN E DANNY [facility] May 20, 2024 08:00 AM AMBULATORY - NONE DEANNEINGLIV Rios [facility] May 20, 2024 10:00 AM AMBULATORY - MEDICINE JAYNE NGTON [facility] May 27, 2024 08:00 AM AMBULATORY - NONE [place] [facility] Jun 06, 2024 08:00 AM AMBULATORY - SURGERY [place] GTON [facility] Jun 10, 2024 08:50 AM AMBULATORY - MEDICINE JAYNE NGTON [facility] Jun 10, 2024 11:00 AM AMBULATORY - PSYCHIATRY LE XINJEWEL [facility] Jun 20, 2024 09:00 AM AMBULATORY - NONE [place] [facility] Jun 24, 2024 08:00 AM AMBULATORY - NONE [place] [facility] Jun 30, 2024 11:00 AM AMBULATORY - NONE [place] [facility] Jun 30, 2024 03:00 PM AMBULATORY - MEDICINE JAYNE NGTON-CDD [facility] Jul 01, 2024 09:00 AM AMBULATORY - MEDICINE JAYNE NGTON-CDD [facility] Jul 07, 2024 10:00 AM [facility] 08, [facility]24 10:00 AM [facility] Jul 10, 2024 08:30 AM AM[facility]ULAT[facility] - MEDIC[facility] Jul 24, 2024 03:00 PM AMBULATORY - PSYCHIATRY LE [facility] Lab Results: +/- 30 days of [...] May 07, 2024 10:35 AM Reporting Lab: [address] [address] Performing Lab: [address] [address] MAGNESIUM 1.8 mg/dL 1.6-2.6 May 15, 2024 09:46 AM [facility] BNP (STODDARD) PLASMA Specimen Type: PLASMA Comment: BNP results less than or equal to 100 pg/ml are insurance healthcare representative of normal values in patients without CHF. BNP results greater than 100 pg/ml are considered abnormal and suggestive of CHF. Higher BNP concentrations in the first 72 hours after Acute Coronary Syndrome are associated with an increased risk of , myocardial infarction and CHF. Ordering Provider: CYNDI STEINBERG Report Released Date/Time: May 07, 2024 10:35 AM Reporting Lab: [facility] [address] [facility] [facility] [address] Performing Lab: [address] [address] BNP (STODDARD) 29 pg/mL 0-100 May 15, 2024 09:46 AM [facility] PANEL 1 PLASMA Specimen Type: PLASM A [...] May 07, 2024 10:35 AM Reporting Lab: [address] [address] Performing Lab: [place] [id number] CREATININE 1.54 mg/dL H 0.72-1.25 UREA NITROGEN 20 mg/dL 9-25 GLUCOSE 151 mg/dL H 74-100 SODIUM 140 mmol/L 136-145 POTASSIUM 4.0 mmol/L 3.5-5.1 CHLORIDE 104 mmol/L 98-107 CO2 28 mmol/L 22-29 CALCIUM 9.7 mg/dL 8.4-10.2 ANION GAP 8 meq/L 3-19 eGFR (CKD-EPI) 46 Apr 29, 2024 10:55 AM [facility] URINALYSIS URINE Specimen Type : URINE Comment: Microscopic not indicated Ordering Provider: ERIK KIM Report Released Date/Time: Apr 16, 2024 01:19 PM Reporting Lab: [place] [id number] Performing Lab: [address] [address] URINE COLOR Colorless Colorless-Yellow APPEARANCE Clear Clear UROBILINOGEN Normal mg/dL Normal URINE BLOOD Negative Negative URINE BILIRUBIN Negative Negative URINE KETONES Negative mg/dL Negative URINE PROTEIN Negative mg/dL Negative-Tr john URINE PH 7.0 4.5-8.0 URINE NITRITE Negative Negative URINE LEUKOCYTE EST Negative Negative SPECIFIC GRAVITY 1.005 1.005-1.030 URINE GLUCOSE Negative mg/dL Negative Apr 29, 2024 10:49 AM [facility] LACTIC ACID PLASMA Specimen Type : PLASMA Comment: ~2 hours from now Ordering Provider: ERIK KIM Report Released Date/Time: Apr 16, 2024 01:19 PM Reporting Lab: [address] [address] Performing Lab: [address] [address] LACTIC ACID 1.4 mmol/L 0.5-2.2 Apr 29, 2024 10:49 AM [facility] HIGH SENSITIVITY TROPONIN I PLASMA Specimen [...] Apr 16, 2024 01:19 PM Reporting Lab: [address] [address] Performing Lab: [address] [address] HIGH SENSITIVITY TROPONIN I <4 4-35 Apr 29, 2024 10:49 AM [facility] MAGNESIUM PLASMA Specimen Type: PLASM [...] Apr 29, 2024 10:33 AM Reporting Lab: [address] [address] Performing Lab: [address] [address] MAGNESIUM 1.7 mg/dL 1.6-2.6 Apr 29, 2024 10:49 AM [facility] Specimen Type: PLASM A [...] Apr 29, 2024 10:33 AM Reporting Lab: [address] [address] Performing Lab: [address] [address] CREATININE 1.35 mg/dL H 0.72-1.25 UREA NITROGEN 11 mg/dL 9-25 GLUCOSE 114 mg/dL H 74-100 SODIUM 141 mmol/L 136-145 POTASSIUM 4.2 mmol/L 3.5-5.1 CHLORIDE 105 mmol/L 98-107 CO2 29 mmol/L 22-29 CALCIUM 9.7 mg/dL 8.4-10.2 ANION GAP 7 meq/L 3-19 eGFR (CKD-EPI) 53 Apr 16, 2024 01:17 PM [facility] COVID-19 AND FLU/RSV DIAGNOSTIC PANEL NASOPH [...] Food and Drug Administration's Emergency Use Authorization. [employer] Genexpert (596) Ordering Provider: ERIK KIM Report Released Date/Time: Apr 16, 2024 01:13 PM Reporting Lab: [address] [address] Performing Lab: [address] [address] COVID-19 PCR (FLUVID) Negative Negative FLU A PCR (FLUVID) Negative Negative FLU B PCR (FLUVID) Negative Negative RSV PCR (FLUVID) Negative Negative Apr 16, 2024 12:08 PM [facility] LACTIC ACID PLASMA Specimen Type : PLASMA No comment entered. Ordering Provider: ERIK KIM Report Released Date/Time: Apr 16, 2024 01:19 PM Reporting Lab: [address] [address] Performing Lab: [address] [address] LACTIC ACID 2.8 mmol/L H 0.5-2.2 Apr 16, 2024 12:08 PM [facility] PROTHROMBIN TIME PLASMA Specimen Ty pe: PLASMA No comment entered. Ordering Provider: ERIK KIM Report Released Date/Time: Apr 16, 2024 01:19 PM Reporting Lab: [facility] [address] [facility] [address] Performing Lab: [facility] [address] [facility] [address] PT PATIENT 13.2 s 11.7-14.4 INTERNATIONAL NORMALIZED RATIO 1.02 0 .87-1.14 Apr 16, 2024 12:08 PM [facility] PHOSPHORUS PLASMA Specimen Type: PLASM A [...] information resource can be reached in [facility] in the Tools menu, under the [...] Apr 16, 2024 01:19 PM Reporting Lab: [address] [address] Performing Lab: [address] [address] PHOSPHORUS 2.5 mg/dL 2.3-4.7 Apr 16, 2024 12:08 PM [facility] MAGNESIUM PLASMA Specimen Type: PLASM A [...] information resource can be reached in [facility] in the Tools menu, under the [...] Apr 16, 2024 01:19 PM Reporting Lab: [address] [address] Performing Lab: [address] [address] MAGNESIUM 1.5 mg/dL L 1.6-2.6 Apr 16, 2024 12:08 PM [facility] CK TOTAL PLASMA Specimen Type: PLASM [...] Apr 16, 2024 01:19 PM Reporting Lab: [address] [address] Performing Lab: [address] [address] CK TOTAL 64 U/L 30-200 Apr 16, 2024 12:08 PM [facility] HIGH SENSITIVITY TROPONIN I PLASMA Specimen [...] information resource can be reached in [facility] in the Tools menu, under the [...] Apr 16, 2024 01:19 PM Reporting Lab: [address] [address] Performing Lab: [address] [address] HIGH SENSITIVITY TROPONIN I <4 4-35 Apr 16, 2024 12:08 PM [facility] BNP (STODDARD) PLASMA Specimen Type : PLASMA Comment: BNP results less than or equal to 100 pg/ml are insurance healthcare representative of normal values in patients without CHF. BNP results greater than 100 pg/ml are considered abnormal and suggestive of CHF. Higher BNP concentrations in the first 72 hours after Acute Coronary Syndrome are associated with an increased risk of , myocardial infarction and CHF. Ordering Provider: ERIK KIM Report Released Date/Time: Apr 16, 2024 01:38 PM Reporting Lab: [address] [address] Performing Lab: [address] [address] BNP (STODDARD) <10 pg/mL 0-100 Apr 16, 2024 12:08 PM [facility] AUTOMATED DIFF BLOOD Specimen Type : BLOOD Comment: ~STAT Ordering Provider: ERIK KIM Report Released Date/Time: Apr 16, 2024 01:19 PM Reporting Lab: [address] [address] Performing Lab: [address] [address] A-LYMPH % 14.8 L 24.0-44.0 A-MONO % 4.7 0.1-6.0 A-GRAN % 79.5 H 42.0-75.0 A-LYMPH # 0.94 10*3/uL L 1.20-3.40 A-MONO # 0.30 10*3/uL 0.00-0.60 A-GRAN # 5.07 10*3/uL 1.40-6.50 A-BASO % 0.2 0.0-3.0 A-BASO # 0.01 10*3/uL 0.00-0.20 A-EOS % 0.3 0.0-10.0 A-EOS # 0.02 10*3/uL 0.00-0.70 A-IG % 0.5 0.0-0.5 A-IG # 0.03 10*3/uL 0.00-0.06 Apr 16, 2024 12:08 PM [facility] CBC/PLT BLOOD Specimen Type: BLOOD Comment: ~STAT Ordering Provider: ERIK KIM Report Released Date/Time: Apr 16, 2024 01:19 PM Reporting Lab: [address] [address] Performing Lab: [address] [address] WBC 6.4 10*3/uL 5.0-10.0 RBC 5.02 10*6/uL 4.6-6.2 HGB 15.0 g/dL 14.0-18.0 HCT 44.3 42.0-52.0 MCV 88.2 fL 80.0-94.0 MCH 29.9 pg 27.0-31.0 MCHC 33.9 g/dL 32.0-36.0 PLT 208 10*3/uL 150-450 MPV 11.1 fL 9.0-13.1 RDW 14.1 11.0-16.0 NRBC 0.0 0.0-0.0 Apr 16, 2024 12:08 PM [facility] PANEL 5 PLASMA Specimen Type: PLASM [...] information resource can be reached in [facility] in the Tools menu, under the [...] Apr 16, 2024 01:19 PM Reporting Lab: [address] [address] Performing Lab: [address] [address] CREATININE 1.48 mg/dL H 0.72-1.25 UREA NITROGEN [...] PHOS 72 U/L 40-150 eGFR (CKD-EPI) 48 Vital Signs: All taken on the encounter date This section contains inpatient and outpatient Vital Signs collected on the date of the Encounter. Date/Time Temperature Pulse Blood Pressure Respiratory Rate SP02 Pain Height Weight Body Mass Index Source Apr 16, 2024 02:35 PM 120 135/86 96 [place] [facility] Apr 16, 2024 02:00 PM 109 111/75 95 [place] [facility] Apr 16, 2024 01:30 PM 113 140/85 95 [place] [facility] Apr 16, 2024 01:30 PM 113 140/85 94 [place] [facility] Apr 16, 2024 01:26 PM 118 152/87 [place] [facility] Radiology Reports: +/- 30 days of [...] the Encounter. The data comes from all [place] treatment facilities. Date/Time Radiology Report Provider Source May 15, 2024 09:57 AM CHEST TWO(2) VIEW PA&LAT: ERIK GALLEGO [id number] -1945 M Exm Date: MAY 15, 2024@09:57 Req Phys: CYNDI STEINBERG Pat Loc: DEANNE PACT PHONE LULU (Req'g Img Loc: [facility] RADIOLOGY Service: [place] [address] (Case [id number] COMPLETE)CHEST TWO(2) VIEW PA&LAT (RAD Detailed) CPT:46972 Reason for Study: dyspnea Clinical History: Report Status: Verified Date Reported: MAY 17, 2024 Date Verified: MAY 17, 2024 Fuller Brush Man E-Sig: Report: CHEST TWO(2) VIEW PA&LAT, 05/15/2024 10:02 AM EST INDICATION: dyspnea COMPARISON: April 16, 2024 Impression: Calcified granuloma right lung apex. No edema or pneumonia. No pleural effusion or pneumothorax. Heart size normal. No acute osseous abnormality. Primary Diagnostic Code: NO ALERT REQUIRED Primary Interpreting Staff: KAILYN STEELE, Staff Physician Verified by behavioral health specialist for KAILYN STEELE /KAILYN AVILES [facility] Apr 16, 2024 01:47 PM SHOULDER-LEFT 2 OR MORE VIEWS: ERIK GALLEGO [id number] -1945 M Exm Date: APR 16, 2024@13:47 Req Phys: LUPE MILES Loc: DEANNE ORTHO/ATT3/CD (Req'g Loc) Img Loc: [facility] RADIOLOGY Service: [place] [address] (Case [id number] COMPLETE) SHOULDER-LEFT 2 OR MORE VIEWS (RAD Detailed) CPT:46831 Reason for Study: LEFT SHOULDER PAIN Clinical History: Report Status: Verified Date Reported: APR 17, 2024 Date Verified: APR 17, 2024 Fuller Brush Man E-Sig: Report: SHOULDER-LEFT 2 OR MORE VIEWS, 04/16/2024 3:06 PM EST INDICATION: LEFT SHOULDER PAIN COMPARISON: None Impression: No acute fracture or malalignment. Mild glenohumeral and AC joint degenerative change. Primary Diagnostic Code: NO ALERT REQUIRED Primary Interpreting Staff: ALFONZO STEELE, Staff Physician Verified by behavioral health specialist for ALFONZO STEELE /ALFONZO DEGROOT-D [facility] Apr 16, 2024 01:47 PM CHEST SINGLE(1) VIEW: ERIK GALLEGO [id number] -1945 M Exm Date: APR 16, 2024@13:47 Req Phys: ERIK KIM JOCELINE Landry Loc: ED/7A-4PM (Req'g Loc) Img Loc: [facility] RADIOLOGY Service: [place] [address] (Case [id number] COMPLETE) CHEST SINGLE(1) VIEW (RAD Detailed) CPT:34325 Proc Modifiers : PORTABLE EXAM Reason for Study: WEAKNESS, COUGH Clinical History: Report Status: Verified Date Reported: APR 17, 2024 Date Verified: APR 17, 2024 Fuller Brush Man E-Sig: Report: CHEST SINGLE(1) VIEW, 04/16/2024 3:06 PM EST INDICATION: WEAKNESS, COUGH COMPARISON: February 10, 2023 FINDINGS: Support apparatus: None. Heart/Mediastinum: Normal size and contours. Lungs/Pleura: Patchy basilar opacities. No pleural effusion or pneumothorax. Upper abdomen: Unremarkable. Bones/Soft tissues: No acute abnormality. Impression: Bibasilar atelectasis or infiltration. Primary Diagnostic Code: SIGNIFICANT ABNORMALITY, ATTN NEEDED Primary Interpreting Staff: ALFONZO STEELE, Staff Physician Verified by behavioral health specialist for ALFONZO STEELE /ALFONZO DEGROOT-CDD [facility] Encounter Notes: All associated encounter notes This section contains the clinical notes associated to the Encounter. Date/Time Encounter Note(s) Provider Source Apr 16, 2024 03:33 PM EMERGENCY DEPT NOTE: LOCAL TITLE: ED 10-10M PT DISCHARGE/ADMIT INSTRUCTIONS STANDARD TITLE: EMERGENCY DEPT NOTE DATE OF NOTE: APR 16, 2024@15:33 ENTRY DATE: APR 16, 2024@15:33:06 AUTHOR: FLORES FRANCES EXP COSIGNER: URGENCY: STATUS: COMPLETED Diagnosis today: WEAKNESS & DEHYDRATION New Medications today: PLAN: STOP TAKING THE HCTZ/LOSARTAN NEW RX LOSARTAN 100MG #90 1 PO DAILY CHECK BP DAILY FOR NEXT 2 WEEKS AND SHARE WITH PCP RX MAGNESIUM OXIDE 420 MG PO BID #180 DRINK 2 QUARTS PER DAY FLUID TO FLUSH KIDNEYS RECHECK MAGNESIUM IN FEW WEEKS BY PCP DISP HOME BP CUFF WALKING AT RAPID SPEED FOR 20 MINUTES PER DAY OR STATIONARY BICYCLING FOR 20 MINUTES PER DAY OR TREADMILL FOR 20 MINUTES PER DAY WILL IMPROVE YOUR HEALTH MEDICATION HISTORY: [place] Prescribed Medications: Active Outpatient Medications (including Supplies): Active Outpatient Medications Status 1) ACCU-CHEK GUIDE (GLUCOSE) TEST STRIP USE 1 STRIP TO TEST ACTIVE (S) BLOOD SUGAR 3-4 TIMES WEEKLY 2) ALOH 160/MG CARB 105MG CHEW TAB CHEW 1 TABLET BY MOUTH AFTER ACTIVE MEALS NEEDED FOR INDIGESTION/REFLUX Indication: FOR STOMACH 3) CHOLECALCIF 25MCG (D3-1,000UNIT) TAB TAKE FOUR TABLETS BY ACTIVE (S) MOUTH DAILY FOR VITAMIN D SUPPLEMENT 4) CLOTRIMAZOLE 1% TOP SOLN APPLY SMALL AMOUNT TO AFFECTED AREA ACTIVE TWICE A DAY Indication: FOR FUNGAL INFECTION 5) CYANOCOBALAMIN 1000MCG TAB TAKE ONE TABLET BY MOUTH DAILY ACTIVE Indication: FOR VITAMIN B12 SUPPLEMENT 6) DICLOFENAC NA 1% TOP GEL APPLY SMALL AMOUNT TO AFFECTED AREA ACTIVE (S) EVERY 6 HOURS NEEDED FOR SHOULDER PAIN 7) FLUTICASONE PROP 50MCG 120D NASAL INHL USE 2 SPRAYS IN EACH ACTIVE (S) NOSTRIL DAILY FOR NASAL ALLERGY 8) GABAPENTIN 300MG CAP TAKE ONE CAPSULE BY MOUTH EVERY MORNING ACTIVE AND TAKE ONE CAPSULE AT NOON AND TAKE TWO CAPSULES EVERY EVENING FOR PAIN Indication: FOR NERVE PAIN 9) LIDOCAINE 5% 5IN X 6IN PATCH APPLY 2 PATCHES TO SKIN DAILY ACTIVE -LEAVE ON 12 HOURS, THEN REMOVE FOR 12 HOURS Indication: FOR PAIN 10) LORATADINE 10MG TAB TAKE ONE TABLET BY MOUTH DAILY FOR ACTIVE (S) ALLERGIES 11) LOSARTAN 100MG TAB TAKE ONE TABLET BY MOUTH DAILY STOPPING ACTIVE THE HCTZ Indication: FOR BLOOD PRESSURE 12) MAGNESIUM OXIDE 420MG TAB TAKE ONE TABLET BY MOUTH TWICE A ACTIVE DAY Indication: FOR SUPPLEMENT 13) METFORMIN HCL 1000MG TAB TAKE ONE TABLET BY MOUTH TWICE A ACTIVE (S) DAY FOR DIABETES 14) MIRTAZAPINE 15MG TAB TAKE ONE-HALF TABLET BY MOUTH AT ACTIVE (S) BEDTIME Indication: FOR SLEEP 15) MUPIROCIN 2% OINT APPLY SMALL AMOUNT TO AFFECTED AREA DAILY ACTIVE -APPLY DAILY TO TREATMENT SITES AFTER CLEANING. THIS IS A TOPICAL ANTIBIOTIC. Indication: TO PREVENT INFECTION 16) PANTOPRAZOLE NA 40MG EC TAB TAKE ONE TABLET BY MOUTH TWICE A ACTIVE DAY 30 MINUTES BEFORE A MEAL -TAKE ON AN EMPTY STOMACH. Indication: FOR STOMACH 17) PIOGLITAZONE HCL 30MG TAB TAKE ONE TABLET BY MOUTH DAILY FOR ACTIVE (S) DIABETES Indication: FOR BLOOD SUGAR 18) PRAZOSIN HCL 1MG CAP TAKE ONE CAPSULE BY MOUTH AT BEDTIME ACTIVE (S) TAKE IN ADDITION TO 5 MG CAPSULE FOR TOTAL OF 6 MG AT BEDTIME Indication: FOR NIGHTMARES. 19) PRAZOSIN HCL 5MG CAP TAKE ONE CAPSULE BY MOUTH AT BEDTIME ACTIVE (S) Indication: FOR NIGHTMARES 20) SERTRALINE HCL 100MG TAB TAKE ONE AND ONE-HALF TABLETS BY ACTIVE (S) MOUTH EVERY MORNING Indication: FOR MOOD 21) TRIAMCINOLONE ACETONIDE 0.1% OINT APPLY SMALL AMOUNT TO ACTIVE AFFECTED AREA TWICE A DAY Indication: FOR SKIN RASH Explained to the patient and/or significant other the importance of keeping providers updated on medication changes and to carry an updated list of medication at all times in case of an emergency situation. Nursing Provider: ANIBAL Physical Activity limitations: TOLERATED Dietary Limitations/Discharge Dietary Instructions: TOLERATED Return to the Emergency Department or your nearest Emergency Department if your condition worsens. Special Instructions: PLAN: STOP TAKING THE HCTZ/LOSARTAN NEW RX LOSARTAN 100MG #90 1 PO DAILY CHECK BP DAILY FOR NEXT 2 WEEKS AND SHARE WITH PCP RX MAGNESIUM OXIDE 420 MG PO BID #180 DRINK 2 QUARTS PER DAY FLUID TO FLUSH KIDNEYS RECHECK MAGNESIUM IN FEW WEEKS BY PCP DISP HOME BP CUFF WALKING AT RAPID SPEED FOR 20 MINUTES PER DAY OR STATIONARY BICYCLING FOR 20 MINUTES PER DAY OR TREADMILL FOR 20 MINUTES PER DAY WILL IMPROVE YOUR HEALTH Patient or significant other verbalizes understanding of instructions given? Yes Patient wristband was removed and destroyed in a shred box. ED Daily Plan given and discussed with patient? Yes Type of Discharge: Regular If you have any questions please contact our Telephone Care Program [phone] locally or Toll Free at After hours [place] Advice Nurse [phone] locally or Toll Free at [facility] is (TALK) To hear your scheduled appointments or to renew your prescriptions by phone call [phone] locally or Toll Free at /[place]/ Flores Ruiz. OMID Frances, director of product management RN Signed: 04/16/2024 15:33 FLOR[facility] Apr 16, 2024 01:20 PM EMERGENCY DEPT NOTE: LOCAL TITLE: ED PHYSICIAN/PACK ROOM OPERATOR/PA NOTE STANDARD TITLE: EMERGENCY DEPT NOTE DATE OF NOTE: APR 16, 2024@13:20 ENTRY DATE: APR 16, 2024@13:20:43 AUTHOR: ERIK KIM EXP COSIGNER: URGENCY: STATUS: COMPLETED TIME SEEN: 1257 CHIEF COMPLAINT: WEAKNESS, MUSCLE CRAMPS HISTORIAN: [X] Patient [ ] Spouse [ ] Son [ ] Daughter [ ] Prison [ ] EMS [ ] Other: HPI: 78; WHITE; MALE AWOKE LATER THAN HIS NORMAL 0530 HRS ARISING AT 0830 HRS. 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, HE DOES NOT TAKE A STATIN BUT HAS CONTINUED ACHING IN ALL HIS MUSCLES ROS: [ ] Unable to fully assess due to: CONSTITUTIONAL: Fever [ ]Y [X]N Chills [ ]Y [X]N Fatigue [X]Y [ ]N Sweats [ ]Y [X]N Other: SKIN: Rash [ ]Y [ ]N Bruising [ ]Y [ ]N Other: EYES: Diplopia [ ]Y [ ]N Change in vision [ ]Y [ ]N Other: ENT: Vertigo [ ]Y [ ]N Rhinorrhea [ ]Y [X]N Sore throat [ ]Y [X]N Other: RESPIRATORY: Cough [X]Y [ ]N Short of breath [X]Y [ ]N Hemoptysis [ ]Y [ ]N Other: CHRONIC SINUS COUGH, DYSPNEA ON EXERTION CARDIAC: Chest pain [ ]Y [X]N Palpitations [ ]Y [ ]N Pedal edema [ ]Y [X]N Other: GASTROINTESTINAL: Nausea [ ]Y [X]N Vomiting [ ]Y [X]N Diarrhea [ ]Y [X]N Abdominal Pain [ ]Y [X]N Other: [facility] THIS AM GENITOURINARY: Dysuria [ ]Y [X]N Hematuria [ ]Y [ ]N Frequency [ ]Y [ ]N Other: MUSCULOSKELETAL: Arthralgias [ ]Y [X]N Myalgias [X]Y [ ]N Back pain [ ]Y [X]N Other: C/O ACHING IN MUSCLES, KNOWN MUSCLE ACHES AND PAINS IN HIS LOWER EXTREMITIES FOR WHICH HE 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 ALSO HAS NEUROPATHY FROM [facility] IN HIS FEET FOR WHICH HE TAKES GABAPENTIN ENDOCRINE: Heat/cold intol [ ]Y [X]N Weight gain/loss [ ]Y [X]N Other: NEUROLOGIC: Headache [ ]Y [X]N Dizziness [ ]Y [X]N Focal weakness [ ]Y [ ]N Incontinence [ ]Y [ ]N Confusion [ ]Y [X]N Speech difficulty[ ]Y [ ]N Other: PSYCHIATRY: Depression [ ]Y [X]N SI/HI [ ]Y [X]N Other: PAST MEDICAL HX: Active problems - Computerized Problem List is [...] bronchus, and lung 10. Osteoarthritis (SNOMED CT 520515678) 11. Gastro-esophageal reflux disease with esophagitis (SNOMED CT 906238510) 12. Allergic rhinitis * 13. Hypertension (SNOMED CT 95619862) 14. Diabetes mellitus (SNOMED CT 35575898) 15. NEPHROLITHIASIS 16. Gout * ALLERGIES: LISINOPRIL, FOSINOPRIL, PERCOCET MEDICATION: Active Outpatient Medications (including Supplies): ACCU-CHEK GUIDE (GLUCOSE) TEST STRIP USE 1 STRIP TO TEST ACTIVE (S) BLOOD SUGAR 3-4 TIMES WEEKLY ALOH 160/MG CARB 105MG CHEW TAB CHEW 1 TABLET BY MOUTH ACTIVE AFTER MEALS NEEDED FOR INDIGESTION/REFLUX Indication: FOR STOMACH CHOLECALCIF 25MCG (D3-1,000UNIT) TAB TAKE FOUR TABLETS BY ACTIVE (S) MOUTH DAILY FOR VITAMIN D SUPPLEMENT CLOTRIMAZOLE 1% TOP SOLN APPLY SMALL AMOUNT TO AFFECTED ACTIVE AREA TWICE A DAY Indication: FOR FUNGAL INFECTION CYANOCOBALAMIN 1000MCG TAB TAKE ONE TABLET BY MOUTH DAILY ACTIVE Indication: FOR VITAMIN B12 SUPPLEMENT DICLOFENAC NA 1% TOP GEL APPLY SMALL AMOUNT TO AFFECTED ACTIVE (S) AREA EVERY 6 HOURS NEEDED FOR SHOULDER PAIN FLUTICASONE PROP 50MCG 120D NASAL INHL USE 2 SPRAYS IN ACTIVE (S) EACH NOSTRIL DAILY FOR NASAL ALLERGY GABAPENTIN 300MG CAP TAKE ONE CAPSULE BY MOUTH EVERY ACTIVE MORNING AND TAKE ONE CAPSULE AT NOON AND TAKE TWO CAPSULES EVERY EVENING FOR PAIN Indication: FOR NERVE PAIN HCTZ 12.5MG/LOSARTAN 100MG TAB TAKE 1 TABLET BY MOUTH ACTIVE (S) DAILY Indication: FOR BLOOD PRESSURE/HEART LIDOCAINE 5% 5IN X 6IN PATCH APPLY 2 PATCHES TO SKIN DAILY ACTIVE -LEAVE ON 12 HOURS, THEN REMOVE FOR 12 HOURS Indication: FOR PAIN LORATADINE 10MG TAB TAKE ONE TABLET BY MOUTH DAILY FOR ACTIVE (S) ALLERGIES METFORMIN HCL 1000MG TAB TAKE ONE TABLET BY MOUTH TWICE A ACTIVE (S) DAY FOR DIABETES MIRTAZAPINE 15MG TAB TAKE ONE-HALF TABLET BY MOUTH AT ACTIVE (S) BEDTIME Indication: FOR SLEEP MUPIROCIN 2% OINT APPLY SMALL AMOUNT TO AFFECTED AREA ACTIVE DAILY -APPLY DAILY TO TREATMENT SITES AFTER CLEANING. THIS IS A TOPICAL ANTIBIOTIC. Indication: TO PREVENT INFECTION PANTOPRAZOLE NA 40MG EC TAB TAKE ONE TABLET BY MOUTH TWICE ACTIVE A DAY 30 MINUTES BEFORE A MEAL -TAKE ON AN EMPTY STOMACH. Indication: FOR STOMACH PIOGLITAZONE HCL 30MG TAB TAKE ONE TABLET BY MOUTH DAILY ACTIVE (S) FOR DIABETES Indication: FOR BLOOD SUGAR PRAZOSIN HCL 1MG CAP TAKE ONE CAPSULE BY MOUTH AT BEDTIME ACTIVE (S) TAKE IN ADDITION TO 5 MG CAPSULE FOR TOTAL OF 6 MG AT BEDTIME Indication: FOR NIGHTMARES. PRAZOSIN HCL 5MG CAP TAKE ONE CAPSULE BY MOUTH AT BEDTIME ACTIVE (S) Indication: FOR NIGHTMARES SERTRALINE HCL 100MG TAB TAKE ONE AND ONE-HALF TABLETS BY ACTIVE (S) MOUTH EVERY MORNING Indication: FOR MOOD TRIAMCINOLONE ACETONIDE 0.1% OINT APPLY SMALL AMOUNT TO ACTIVE AFFECTED AREA TWICE A DAY Indication: FOR SKIN RASH PERTINENT SURGERY/PROCEDURE: CATARACT X 2, RENAL STONES, LEFT ANKLE PERTINENT FAMILY HISTORY: PERTINENT SOCIAL HISTORY: NONSMOKER, NONDRINKER, NO STREET DRUGS PHYSICAL EXAM: VITALS: TEMP: Measurement DT TEMP F(C) 04/16/2024 11:58 97.5(36.4) BLOOD PRESSURE: Measurement DT BP 04/16/2024 11:58 127/78 PULSE: Measurement DT PULSE 04/16/2024 11:58 130 RESPIRATIONS: Measurement DT RESP 04/16/2024 11:58 16 PULSE OX: No data available WEIGHT: Measurement DT WEIGHT LB(KG)[BMI] 04/16/2024 11:58 210(95.25)[30*] CONSTITUTIONAL: [ ] Reviewed today's triage vital signs [ ] WD/WN [X] Obese [X] NAD [ ] Other: OBESE WHITE MALE IN NAD, NOT ILL APPEARING, GRAND-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 [employer]IST[employer]IAN EYES: [ ] Lids and conjunctival normal [X] PERRLA [X] Other: ENT: [ ] TM/canal normal [X] External ear/nose normal [X] Oropharynx pink/clear [ ] Other: NECK: [X] Supple [ ] No JVD [ ] Thyroid normal [ ] Other: CARDIOVASCULAR: [X] RRR w/o murmur [X] No pedal edema [ ] Pedal pulses normal [ ] Other: RESPIRATORY: [X] Clear to auscultation [X] BS equal [X] Normal respiratory effort [X] Palpation of chest nontender [ ] Other: GASTROINTESTINAL: [X] Soft [X] Nontender [X] No peritoneal signs [X] Normal BS [ ] No Hepatosplenomegaly [ ] Other: [ ] Rectal exam: GENITOURINARY: [ ] Other: LYMPHATIC: [ ] No cervical adenopathy [ ] No axillary adenopathy [ ] No inguinal adenopathy [ ] Other: MUSCULOSKELETAL: [X] Normal range of motion all extremities [X] No clubbing/cyanosis [ ] Spine nontender [ ] Gait normal [ ] Other: SKIN: [X] Warm and dry [ ] No rash [ ] Palpation normal [ ] Other: NEUROLOGIC: [X] Coordination normal [X] Good strength all extremities [ ] Cranial nerves 2-12 intact [ ] Deep tendon reflexes equal bilaterally [ ] Sensation grossly normal [ ] Other: PSYCHIATRIC: [X] Alert and oriented x3 [X] Mood/affect normal [X] Judgment/insight normal [X] Recent and remote memory normal [ ] Other: LABS: CBC: WBC 6400, HGB 15.0, HCT 44.3 CMP: GLU 227, BUN 30, CR 1.48, eGFR 48, CA 10.3 TROPONIN: NEG BNP: NEG CK: NEG LACTIC ACID: 2.8 INR: NEG MG: SL LOW AT 1.5 PHOS: NEG COVID: NEG INFLUENZA A,B: NEG RSV: NEG [ X] Independent interpretation of labs EKG: SINUS TACHYCARDIA, CRBBB, LAHB. NEW SINCE 07/15/21 [X ] Independent interpretation of EKG CHEST AP: NAD [ X] Independent interpretation of x-rays OTHER IMAGING: [ ] Independent interpretation of radiology studies ED COURSE/MEDICAL DECISION MAKING: [ ] Outside records reviewed [X] I have reviewed relevant medical records, laboratory reports and radiology studies [X] My findings and treatment plan were discussed with the patient and/or significant other 1420 HRS - REVIEWED FINDINGS WITH , GOT 1 L NS, WILL REPLACE THE MAGNESIUM TO SEE IF IT HELPS HIS MUSCLE CRAMPING. WORRIED ABOUT A TREMOR - WILL NEED TO SEE NEUROLOGY, WORKS EVERY DAY IN [employer]. DO NOT LIKE HCTZ IIN 78 YEAR OLDS WITH DM AND IMPAIRED RENAL FUNCTION 1520 HRS - FINISHING UP HIS 2 GM IV MAGNESIUM, SECOND LITER NS IV FLUIDS, LOOKING GOOD, SAYS HIS TREMOR HAS BEEN OFF AND ON FOR YEARS - TRANSIENT DIFFERENTIAL DIAGNOSIS: MEDICAL DECISION MAKING: CONSULTED/DISCUSSED WITH: TIME: [ ] CRITICAL CARE TIME: [ ] PROCEDURES (see separate procedure note): ASSESSMENT/IMPRESSION: WEAKNESS HYPOMAGNESEMIA MILD DEHYDRATION WITH NEHEMIAH PLAN: STOP TAKING THE HCTZ/LOSARTAN NEW RX LOSARTAN 100MG #90 1 PO DAILY CHECK BP DAILY FOR NEXT 2 WEEKS AND SHARE WITH PCP RX MAGNESIUM OXIDE 420 MG PO BID #180 DRINK 2 QUARTS PER DAY FLUID TO FLUSH KIDNEYS RECHECK MAGNESIUM IN FEW WEEKS BY PCP DISP HOME BP CUFF WALKING AT RAPID SPEED FOR 20 MINUTES PER DAY OR STATIONARY BICYCLING FOR 20 MINUTES PER DAY OR TREADMILL FOR 20 MINUTES PER DAY WILL IMPROVE YOUR HEALTH DISPOSITION TIME: [ X] Home [ ] Admitted [ ] Transferred [ ] [place] [ ] [facility] [ ] [place] [ ] [facility] [ ] [facility] [ ] Other: FOLLOW UP TIME FRAME: [ ] PC [ ] Specialist: [ ] Other: /es/ ERIK KIM Emergency Room Physician Signed: 04/16/2024 15:24 ERIK KIM-D [facility] Apr 16, 2024 12:10 PM EMERGENCY DEPT NOTE: LOCATION: ED/7A-4PM VISIT DATE: APR 16, 2024@11:35 LOCAL TITLE: EMERGENCY DEPT NURSING ASSESSMENT CHILD ID NOTE STANDARD TITLE: EMERGENCY DEPT NOTE DATE OF NOTE: APR 16, 2024@12:10 ENTRY DATE: APR 16, 2024@12:10:54 AUTHOR: FLORES FRANCES EXP COSIGNER: URGENCY: STATUS: COMPLETED ASSESSMENT: PAIN: Do you have pain now? Yes Intensity: Severity Scale (2) Location: MUSCLE ACHES Acute How long? THIS MORNING Constant, Ache At or below acceptable level of pain (0-10) PAST MEDICAL HISTORY: Active problems - Computerized Problem List is [...] bronchus, and lung 10. Osteoarthritis (SNOMED CT 202434246) 11. Gastro-esophageal reflux disease with esophagitis (SNOMED CT 330182379) 12. Allergic rhinitis * 13. Hypertension (SNOMED CT 30836799) 14. Diabetes mellitus (SNOMED CT 06705672) 15. NEPHROLITHIASIS 16. Gout * Transfer Patients If outpatient medication list below is NOT current. See chart/nursing transfer note, provider H&P, or remote data for current list. Medication List Current: YES NON-VA/Herbal Vitamins/Medications: No change in CPRS documentation Medicine/Supplies Qty Last Filled 1) PANTOPRAZOLE NA 40MG EC TAB: TAKE ONE TABLET BY 180 DEC 13, 2023 MOUTH TWICE A DAY 30 MINUTES BEFORE A MEAL FOR 2) CLOTRIMAZOLE 1% TOP SOLN: APPLY SMALL AMOUNT TO 30 FEB 04, 2024 AFFECTED AREA TWICE A DAY FOR FUNGAL INFECTION 3) PRAZOSIN HCL 1MG CAP: TAKE ONE CAPSULE BY MOUTH AT 90 APR 16, 2024 BEDTIME FOR NIGHTMARES. TAKE IN ADDITION 4) ALOH 160/MG CARB 105MG CHEW TAB: CHEW 1 TABLET BY 100 FEB 04, 2024 MOUTH AFTER MEALS NEEDED FOR INDIGESTION/REFLUX 5) TRIAMCINOLONE ACETONIDE 0.1% OINT: APPLY SMALL FEB 04, 2024 AMOUNT TO AFFECTED AREA TWICE A DAY FOR SKIN RASH 6) MUPIROCIN 2% OINT: APPLY SMALL AMOUNT TO AFFECTED MAR 13, 2024 AREA DAILY TO PREVENT INFECTION -APPLY 7) ACCU-CHEK GUIDE (GLUCOSE) TEST STRIP: USE 1 STRIP 50 MAY 26, 2024 TO TEST BLOOD SUGAR 3-4 TIMES WEEKLY 8) CHOLECALCIF 25MCG (D3-1,000UNIT) TAB: TAKE FOUR 400 MAY 26, 2024 TABLETS BY MOUTH DAILY FOR VITAMIN D SUPPLEMENT 9) CYANOCOBALAMIN 1000MCG TAB: TAKE ONE TABLET BY 90 MAR 16, 2024 MOUTH DAILY FOR VITAMIN B12 SUPPLEMENT 10) DICLOFENAC NA 1% TOP GEL: APPLY SMALL AMOUNT TO 300 MAY 26, 2024 AFFECTED AREA EVERY 6 HOURS NEEDED FOR 11) FLUTICASONE PROP 50MCG 120D NASAL INHL: USE 2 3 MAY 26, 2024 SPRAYS IN EACH NOSTRIL DAILY FOR NASAL ALLERGY 12) GABAPENTIN 300MG CAP: TAKE ONE CAPSULE BY MOUTH 120 MAR 15, 2024 EVERY MORNING AND TAKE ONE CAPSULE AT NOON 13) HCTZ 12.5MG/LOSARTAN 100MG TAB: TAKE 1 TABLET BY 90 JUN 03, 2024 MOUTH DAILY FOR BLOOD PRESSURE/HEART 14) LIDOCAINE 5% 5IN X 6IN PATCH: APPLY 2 PATCHES TO 60 MAR 13, 2024 SKIN DAILY FOR PAIN -LEAVE ON 12 HOURS, THEN REMOVE 15) LORATADINE 10MG TAB: TAKE ONE TABLET BY MOUTH 90 JUN 03, 2024 DAILY FOR ALLERGIES 16) METFORMIN HCL 1000MG TAB: TAKE ONE TABLET BY MOUTH 180 MAY 26, 2024 TWICE A DAY FOR DIABETES 17) PIOGLITAZONE HCL 30MG TAB: TAKE ONE TABLET BY 90 MAY 28, 2024 MOUTH DAILY FOR DIABETES 18) MIRTAZAPINE 15MG TAB: TAKE ONE-HALF TABLET BY 45 JUL 12, 2024 MOUTH AT BEDTIME FOR SLEEP 19) PRAZOSIN HCL 5MG CAP: TAKE ONE CAPSULE BY MOUTH AT 90 JUL 12, 2024 BEDTIME FOR NIGHTMARES 20) SERTRALINE HCL 100MG TAB: TAKE ONE AND ONE-HALF 135 JUN 24, 2024 TABLETS BY MOUTH EVERY MORNING FOR MOOD NON-VA MEDS - NONE FOUND Reviewed current medications with patient/signficant other, patient/significant other reports patient taking ALL VA, Non VA & OTC medications as listed on CPRS medication tab outpatient section. YES: *Printed copy of medication list provided to patient and reviewed. No *Explained to the patient the importance of keeping providers updated on medication changes and to carrying an updated list of medication at all times in case of an emergency situation. Yes ETOH: NO Substance Use: NO LEARNING READINESS: Barriers/Limitations to Learning: No Barriers Interested in Learning About Your Health/Care? Yes, but does not identify a specific education need at present What are you interested in learning? With whom would you like us to share this information? Patient only FALL RISK: Have you fallen at home in the last 3 months? No N/A FOCUSED ASSESSMENT: NEUROLOGICAL/EYE: Glascow Coma Scale: Eye Opening Response: 4-Spontaneous Motor Response: 6-Obeys Command Verbal Response: 5-Oriented and converses Total EMV=15 PUPILS: Reactive - left, right SPEECH: Normal RESPIRATORY: Non-labored CV/CIRCULATORY: Warm, Dry COLOR: Naplate APICAL HEART RATE: Regular, Rhythm Per Can Marker SINUS TACH ABDOMINAL/GI/: Tender on Palpation - Soft, Non-tender Physical evidence of abuse or neglect? No Patient or Other verbally reports current abuse, neglect, or exploitation? No If yes: Provider notified? No If yes: Social service consult? Radha /peyton/ OMID Stroud, director of product management RN Signed: 04/16/2024 12:12 --- Interdisciplinary Note --- << Interdisciplinary Note >> LOCATION: ED/7A-4PM VISIT DATE: APR 16, 2024@11:35 LOCAL TITLE: EMERGENCY DEPT TRIAGE PARENT ID NOTE STANDARD TITLE: EMERGENCY DEPT TRIAGE NOTE DATE OF NOTE: APR 16, 2024@11:54 ENTRY DATE: APR 16, 2024@11:54:32 AUTHOR: REMINGTON LORENZO EXP COSIGNER: URGENCY: STATUS: COMPLETED EMERGENCY DEPT TRIAGE PARENT ID NOTE Has ADDENDA Emergency Department/Urgent Care Center Triage Patient age:78 Sex in chart: MALE Mode of Arrival: Private vehicle Mode of Mobility: * Walk Chief Complaint: weakness, muscle pains length control tester Note (Subjective/Objective): Pt. states for approx 1 week he's been having bad muscle spasms. Starting yesterday pt. states he was having muscle aches as well. Family reports pt. has been lethargic, slept very late today which is out of character, has been shaky, and had low BP/ high HR at home. Level of Consciousness (AVPU): Alert = Appears aware of and responsive to the environment on their own. Follows commands, opens eyes spontaneously, and tracks objects. Vital Signs: Temperature 97.5 F (36.4 C) Pulse 130 Respirations 16 Blood Pressure 127/78 Pulse Oximetry 97 Room Air Weight 210 lb (95.5 kg) Pain: DVPRS Scale Location: muscle aches Defense and Veterans Pain Rating Scale (DVPRS): Pain Score: 2 Patient's acceptable pain goal: Suicide Screen: Quinter Suicide Severity Rating Scale (C-SSRS) screener 1. Over the past month, have you [...] required due to responses to other questions. Emergency Severity Index (LOVE) level: Level 3 Previously documented allergies: LISINOPRIL, FOSINOPRIL, PERCOCET Current Problems: Active problems - Computerized Problem List is [...] bronchus, and lung 10. Osteoarthritis (SNOMED CT 549286250) 11. Gastro-esophageal reflux disease with esophagitis (SNOMED CT 461065089) 12. Allergic rhinitis * 13. Hypertension (SNOMED CT 17846698) 14. Diabetes mellitus (SNOMED CT 94932079) 15. NEPHROLITHIASIS 16. Gout * /es/ REMINGTON LORENZO RN Signed: 04/16/2024 11:58 04/16/2024 ADDENDUM STATUS: UNSIGNED You may not VIEW this UNSIGNED Addendum. << Interdisciplinary Note - Cont. >> LOCAL TITLE: EMERGENCY DEPT NURSING ASSESSMENT CHILD ID NOTE STANDARD TITLE: EMERGENCY DEPT NOTE DATE OF NOTE: APR 16, 2024@12:10 STATUS: COMPLETED ASSESSMENT: PAIN: Do you have pain now? Yes Intensity: Severity Scale (2) Location: MUSCLE ACHES Acute How long? THIS MORNING Constant, Ache At or below acceptable level of pain (0-10) PAST MEDICAL HISTORY: Active problems - Computerized Problem List is [...] bronchus, and lung 10. Osteoarthritis (SNOMED CT 033131617) 11. Gastro-esophageal reflux disease with esophagitis (SNOMED CT 260687216) 12. Allergic rhinitis * 13. Hypertension (SNOMED CT 07263191) 14. Diabetes mellitus (SNOMED CT 43889791) 15. NEPHROLITHIASIS 16. Gout * Transfer Patients If outpatient medication list below is NOT current. See chart/nursing transfer note, provider H&P, or remote data for current list. Medication List Current: YES NON-VA/Herbal Vitamins/Medications: No change in CPRS documentation Medicine/Supplies Qty Last Filled 1) PANTOPRAZOLE NA 40MG EC TAB: TAKE ONE TABLET BY 180 DEC 13, 2023 MOUTH TWICE A DAY 30 MINUTES BEFORE A MEAL FOR 2) CLOTRIMAZOLE 1% TOP SOLN: APPLY SMALL AMOUNT TO 30 FEB 04, 2024 AFFECTED AREA TWICE A DAY FOR FUNGAL INFECTION 3) PRAZOSIN HCL 1MG CAP: TAKE ONE CAPSULE BY MOUTH AT 90 APR 16, 2024 BEDTIME FOR NIGHTMARES. TAKE IN ADDITION 4) ALOH 160/MG CARB 105MG CHEW TAB: CHEW 1 TABLET BY 100 FEB 04, 2024 MOUTH AFTER MEALS NEEDED FOR INDIGESTION/REFLUX 5) TRIAMCINOLONE ACETONIDE 0.1% OINT: APPLY SMALL 30 FEB 04, 2024 AMOUNT TO AFFECTED AREA TWICE A DAY FOR SKIN RASH 6) MUPIROCIN 2% OINT: APPLY SMALL AMOUNT TO AFFECTED MAR 13, 2024 AREA DAILY TO PREVENT INFECTION -APPLY 7) ACCU-CHEK GUIDE (GLUCOSE) TEST STRIP: USE 1 STRIP 50 MAY 26, 2024 TO TEST BLOOD SUGAR 3-4 TIMES WEEKLY 8) CHOLECALCIF 25MCG (D3-1,000UNIT) TAB: TAKE FOUR 400 MAY 26, 2024 TABLETS BY MOUTH DAILY FOR VITAMIN D SUPPLEMENT 9) CYANOCOBALAMIN 1000MCG TAB: TAKE ONE TABLET BY 90 MAR 16, 2024 MOUTH DAILY FOR VITAMIN B12 SUPPLEMENT 10) DICLOFENAC NA 1% TOP GEL: APPLY SMALL AMOUNT TO 300 MAY 26, 2024 AFFECTED AREA EVERY 6 HOURS NEEDED FOR 11) FLUTICASONE PROP 50MCG 120D NASAL INHL: USE 2 3 MAY 26, 2024 SPRAYS IN EACH NOSTRIL DAILY FOR NASAL ALLERGY 12) GABAPENTIN 300MG CAP: TAKE ONE CAPSULE BY MOUTH 120 MAR 15, 2024 EVERY MORNING AND TAKE ONE CAPSULE AT NOON 13) HCTZ 12.5MG/LOSARTAN 100MG TAB: TAKE 1 TABLET BY 90 JUN 03, 2024 MOUTH DAILY FOR BLOOD PRESSURE/HEART 14) LIDOCAINE 5% 5IN X 6IN PATCH: APPLY 2 PATCHES TO 60 MAR 13, 2024 SKIN DAILY FOR PAIN -LEAVE ON 12 HOURS, THEN REMOVE 15) LORATADINE 10MG TAB: TAKE ONE TABLET BY MOUTH 90 JUN 03, 2024 DAILY FOR ALLERGIES 16) METFORMIN HCL 1000MG TAB: TAKE ONE TABLET BY MOUTH 180 MAY 26, 2024 TWICE A DAY FOR DIABETES 17) PIOGLITAZONE HCL 30MG TAB: TAKE ONE TABLET BY 90 MAY 28, 2024 MOUTH DAILY FOR DIABETES 18) MIRTAZAPINE 15MG TAB: TAKE ONE-HALF TABLET BY 45 JUL 12, 2024 MOUTH AT BEDTIME FOR SLEEP 19) PRAZOSIN HCL 5MG CAP: TAKE ONE CAPSULE BY MOUTH AT 90 JUL 12, 2024 BEDTIME FOR NIGHTMARES 20) SERTRALINE HCL 100MG TAB: TAKE ONE AND ONE-HALF 135 JUN 24, 2024 TABLETS BY MOUTH EVERY MORNING FOR MOOD NON-VA MEDS - NONE FOUND Reviewed current medications with patient/signficant other, patient/significant other reports patient taking ALL VA, Non VA & OTC medications as listed on CPRS medication tab outpatient section. YES: *Printed copy of medication list provided to patient and reviewed. No *Explained to the patient the importance of keeping providers updated on medication changes and to carrying an updated list of medication at all times in case of an emergency situation. Yes ETOH: NO Substance Use: NO LEARNING READINESS: Barriers/Limitations to Learning: No Barriers Interested in Learning About Your Health/Care? Yes, but does not identify a specific education need at present What are you interested in learning? With whom would you like us to share this information? Patient only FALL RISK: Have you fallen at home in the last 3 months? No N/A FOCUSED ASSESSMENT: NEUROLOGICAL/EYE: Glascow Coma Scale: Eye Opening Response: 4-Spontaneous Motor Response: 6-Obeys Command Verbal Response: 5-Oriented and converses Total EMV=15 PUPILS: Reactive - left, right SPEECH: Normal RESPIRATORY: Non-labored CV/CIRCULATORY: Warm, Dry COLOR: Naplate APICAL HEART RATE: Regular, Rhythm Per Can Marker SINUS TACH ABDOMINAL/GI/: Tender on Palpation - Soft, Non-tender Physical evidence of abuse or neglect? No Patient or Other verbally reports current abuse, neglect, or exploitation? No If yes: Provider notified? No If yes: Social service consult? Radha /peyton/ OMID Stroud, director of product management RN Signed: 04/16/2024 12:12 FLORES FRANCES-LOWELL [facility] Apr 16, 2024 11:54 AM EMERGENCY DEPT TRIAGE NOTE: << Interdisciplinary Note >> LOCATION: ED/7A-4PM VISIT DATE: APR 16, 2024@11:35 LOCAL TITLE: EMERGENCY DEPT TRIAGE PARENT ID NOTE STANDARD TITLE: EMERGENCY DEPT TRIAGE NOTE DATE OF NOTE: APR 16, 2024@11:54 ENTRY DATE: APR 16, 2024@11:54:32 AUTHOR: REMINGTON LORENZO COSIGNER: URGENCY: STATUS: COMPLETED EMERGENCY DEPT TRIAGE PARENT ID NOTE Has ADDENDA Emergency Department/Urgent Care Center Triage Patient age:78 Sex in chart: MALE Mode of Arrival: Private vehicle Mode of Mobility: * Walk Chief Complaint: weakness, muscle pains length control tester Note (Subjective/Objective): Pt. states for approx 1 week he's been having bad muscle spasms. Starting yesterday pt. states he was having muscle aches as well. Family reports pt. has been lethargic, slept very late today which is out of character, has been shaky, and had low BP/ high HR at home. Level of Consciousness (AVPU): Alert = Appears aware of and responsive to the environment on their own. Follows commands, opens eyes spontaneously, and tracks objects. Vital Signs: Temperature 97.5 F (36.4 C) Pulse 130 Respirations 16 Blood Pressure 127/78 Pulse Oximetry 97 Room Air Weight 210 lb (95.5 kg) Pain: DVPRS Scale Location: muscle aches Defense and Veterans Pain Rating Scale (DVPRS): Pain Score: 2 Patient's acceptable pain goal: Suicide Screen: Quinter Suicide Severity Rating Scale (C-SSRS) screener 1. Over the past month, have you [...] required due to responses to other questions. Emergency Severity Index (LOVE) level: Level 3 Previously documented allergies: LISINOPRIL, FOSINOPRIL, PERCOCET Current Problems: Active problems - Computerized Problem List is [...] bronchus, and lung 10. Osteoarthritis (SNOMED CT 102423773) 11. Gastro-esophageal reflux disease with esophagitis (SNOMED CT 728936078) 12. Allergic rhinitis * 13. Hypertension (SNOMED CT 00831387) 14. Diabetes mellitus (SNOMED CT 75603040) 15. NEPHROLITHIASIS 16. Gout * /es/ REMINGTON LORENZO RN Signed: 04/16/2024 11:58 04/16/2024 ADDENDUM STATUS: COMPLETED 1201 - Report received from REMINGTON LORENZO RN, verbalized understanding, assuming patient care. 1205 - Blood Pressure cuff, rectification printer and pulse oximeter applied. EKG obtained and given to provider. 1207 - Covid/RSV/Flu swab collected per order/policy. Specimen labeled and transported to lab. 1208 - 18g IV placed in RT AC per policy. Labs collected, labeled at bedside, and sent to lab for analysis. IV patent, flushes easily and without discomfort. Patient tolerated procedure well. 1300 - ED provider at bedside for evaluation, awaiting orders. 1326 - ORTHOSTATIC VITALS COMPLETED AND GIVEN TO PROVIDER. 1332 - Normal Saline administered per order. See BCMA. Patient on stretcher, call light in reach, siderail up, assistance offered, updated on plan of care and delays. Patient expresses no needs at this time. No distress noted. Awaiting RADIOLOGY. 1432 - Patient medicated per order see BCMA. 1433 - Normal Saline administered per order. See BCMA. Patient on stretcher, call light in reach, siderail up, assistance offered, updated on plan of care and delays. Patient expresses no needs at this time. No distress noted. Awaiting DISPOSITION. 1500 - Follow-up to medication administration, no adverse reaction noted. 1548 - IV removed catheter intact, bleeding controlled and dressing applied. Verbal and written discharge instructions given to patient. Verbalizes understanding. Prescriptions x 2 given to patient. Ambulatory upon discharge. /peyton/ OMID Stroud, director of product management RN Signed: 04/16/2024 15:49 << Interdisciplinary Note - Cont. >> LOCAL TITLE: EMERGENCY DEPT NURSING ASSESSMENT CHILD ID NOTE STANDARD TITLE: EMERGENCY DEPT NOTE DATE OF NOTE: APR 16, 2024@12:10 STATUS: COMPLETED ASSESSMENT: PAIN: Do you have pain now? Yes Intensity: Severity Scale (2) Location: MUSCLE ACHES Acute How long? THIS MORNING Constant, Ache At or below acceptable level of pain (0-10) PAST MEDICAL HISTORY: Active problems - Computerized Problem List is [...] bronchus, and lung 10. Osteoarthritis (SNOMED CT 979511878) 11. Gastro-esophageal reflux disease with esophagitis (SNOMED CT 196636651) 12. Allergic rhinitis * 13. Hypertension (SNOMED CT 83506010) 14. Diabetes mellitus (SNOMED CT 33763593) 15. NEPHROLITHIASIS 16. Gout * Transfer Patients If outpatient medication list below is NOT current. See chart/nursing transfer note, provider H&P, or remote data for current list. Medication List Current: YES NON-VA/Herbal Vitamins/Medications: No change in CPRS documentation Medicine/Supplies Qty Last Filled 1) PANTOPRAZOLE NA 40MG EC TAB: TAKE ONE TABLET BY 180 DEC 13, 2023 MOUTH TWICE A DAY 30 MINUTES BEFORE A MEAL FOR 2) CLOTRIMAZOLE 1% TOP SOLN: APPLY SMALL AMOUNT TO 30 FEB 04, 2024 AFFECTED AREA TWICE A DAY FOR FUNGAL INFECTION 3) PRAZOSIN HCL 1MG CAP: TAKE ONE CAPSULE BY MOUTH AT 90 APR 16, 2024 BEDTIME FOR NIGHTMARES. TAKE IN ADDITION 4) ALOH 160/MG CARB 105MG CHEW TAB: CHEW 1 TABLET BY 100 FEB 04, 2024 MOUTH AFTER MEALS NEEDED FOR INDIGESTION/REFLUX 5) TRIAMCINOLONE ACETONIDE 0.1% OINT: APPLY SMALL 30 FEB 04, 2024 AMOUNT TO AFFECTED AREA TWICE A DAY FOR SKIN RASH 6) MUPIROCIN 2% OINT: APPLY SMALL AMOUNT TO AFFECTED MAR 13, 2024 AREA DAILY TO PREVENT INFECTION -APPLY 7) ACCU-CHEK GUIDE (GLUCOSE) TEST STRIP: USE 1 STRIP 50 MAY 26, 2024 TO TEST BLOOD SUGAR 3-4 TIMES WEEKLY 8) CHOLECALCIF 25MCG (D3-1,000UNIT) TAB: TAKE FOUR 400 MAY 26, 2024 TABLETS BY MOUTH DAILY FOR VITAMIN D SUPPLEMENT 9) CYANOCOBALAMIN 1000MCG TAB: TAKE ONE TABLET BY 90 MAR 16, 2024 MOUTH DAILY FOR VITAMIN B12 SUPPLEMENT 10) DICLOFENAC NA 1% TOP GEL: APPLY SMALL AMOUNT TO 300 MAY 26, 2024 AFFECTED AREA EVERY 6 HOURS NEEDED FOR 11) FLUTICASONE PROP 50MCG 120D NASAL INHL: USE 2 3 MAY 26, 2024 SPRAYS IN EACH NOSTRIL DAILY FOR NASAL ALLERGY 12) GABAPENTIN 300MG CAP: TAKE ONE CAPSULE BY MOUTH 120 MAR 15, 2024 EVERY MORNING AND TAKE ONE CAPSULE AT NOON 13) HCTZ 12.5MG/LOSARTAN 100MG TAB: TAKE 1 TABLET BY 90 JUN 03, 2024 MOUTH DAILY FOR BLOOD PRESSURE/HEART 14) LIDOCAINE 5% 5IN X 6IN PATCH: APPLY 2 PATCHES TO 60 MAR 13, 2024 SKIN DAILY FOR PAIN -LEAVE ON 12 HOURS, THEN REMOVE 15) LORATADINE 10MG TAB: TAKE ONE TABLET BY MOUTH 90 JUN 03, 2024 DAILY FOR ALLERGIES 16) METFORMIN HCL 1000MG TAB: TAKE ONE TABLET BY MOUTH 180 MAY 26, 2024 TWICE A DAY FOR DIABETES 17) PIOGLITAZONE HCL 30MG TAB: TAKE ONE TABLET BY 90 MAY 28, 2024 MOUTH DAILY FOR DIABETES 18) MIRTAZAPINE 15MG TAB: TAKE ONE-HALF TABLET BY 45 JUL 12, 2024 MOUTH AT BEDTIME FOR SLEEP 19) PRAZOSIN HCL 5MG CAP: TAKE ONE CAPSULE BY MOUTH AT 90 JUL 12, 2024 BEDTIME FOR NIGHTMARES 20) SERTRALINE HCL 100MG TAB: TAKE ONE AND ONE-HALF 135 JUN 24, 2024 TABLETS BY MOUTH EVERY MORNING FOR MOOD NON-VA MEDS - NONE FOUND Reviewed current medications with patient/signficant other, patient/significant other reports patient taking ALL VA, Non VA & OTC medications as listed on CPRS medication tab outpatient section. YES: *Printed copy of medication list provided to patient and reviewed. No *Explained to the patient the importance of keeping providers updated on medication changes and to carrying an updated list of medication at all times in case of an emergency situation. Yes ETOH: NO Substance Use: NO LEARNING READINESS: Barriers/Limitations to Learning: No Barriers Interested in Learning About Your Health/Care? Yes, but does not identify a specific education need at present What are you interested in learning? With whom would you like us to share this information? Patient only FALL RISK: Have you fallen at home in the last 3 months? No N/A FOCUSED ASSESSMENT: NEUROLOGICAL/EYE: Glascow Coma Scale: Eye Opening Response: 4-Spontaneous Motor Response: 6-Obeys Command Verbal Response: 5-Oriented and converses Total EMV=15 PUPILS: Reactive - left, right SPEECH: Normal RESPIRATORY: Non-labored CV/CIRCULATORY: Warm, Dry COLOR: Naplate APICAL HEART RATE: Regular, Rhythm Per Can Marker SINUS TACH ABDOMINAL/GI/: Tender on Palpation - Soft, Non-tender Physical evidence of abuse or neglect? No Patient or Other verbally reports current abuse, neglect, or exploitation? No If yes: Provider notified? No If yes: Social service consult? Radha /peyton/ JARAD StroudN, director of product management RN Signed: 04/16/2024 12:12 REMINGTON LORENZO-CDD [facility]
--- OUTSIDE RECORDS SUMMARY | 2024-07-24 21:27 | XMS_ITS ---
Author Name [facility] [place] Organization [facility] [place] [place] Address [address] [place] [id number] Care Team Providers Care Help Desk Manager Name Role Phone CYNDI STEINBERG Primary Care [...] PART A Oct 14, 2009 PART A [id number] Alex GALLEGO PATIENT MEDICARE (WNR) MEDICARE (M) PART B Oct 14, 2009 PART B [id number] Alex GALLEGO PATIENT MEDICARE (WNR) MEDICARE (M) PART A Oct 14, 2009 PART A [id number] Alex GALLEGO PATIENT MEDICARE (WNR) MEDICARE (M) PART B Oct 14, 2009 PART B [id number] Alex GALLEGO PATIENT MEDICARE (WNR) MEDICARE (M) PART A Oct 14, 2009 PART A [id number] Alex GALLEGO PATIENT MEDICARE (WNR) MEDICARE (M) PART B Oct 14, 2009 PART B [id number] Alex GALLEGO PATIENT Selected Encounter This section includes the information on record at [place] for the Encounter. Date/Time Encounter Type Encounter Description Reason Pro vider Source Jun 03, 2024 07:56 AM Outpatient Encounter ADMIN PAT ACTIVTIES (MASNONCT) IHE Encounter Template Text not used by [place] Plan of Treatment: Future Appointments (+ 6 [...] 08:00 AM AMBULATORY - SURGERY [place] GTON [facility] Jun 10, 2024 08:50 AM [facility] 10, [facility] 11:00 AM [facility] Jun 20, 2024 09:00 AM AMBULATORY - NONE [place] [facility] Jun 24, 2024 08:00 AM AMBULATORY - NONE [place] [facility] Jun 30, 2024 11:00 AM AMBULATORY - NONE [place] [facility] Jun 30, 2024 03:00 PM AMBULATORY - MEDICINE JAYNE NGTON-CDD [facility] Jul 01, 2024 09:00 AM AMBULATORY - MEDICINE JAYNE NGTON-CDD [facility] Jul 07, 2024 10:00 AM AM[facility]UL[facility] Jul 08, 2024 10:00 AM [facility] Jul 10, 2024 08:30 AM AMBULATORY - MEDICINE JAYNE NGTON-CDD [facility] Jul 24, 2024 03:00 PM AMBUL[facility] Aug 05, 2024 09:00 AM [facility] Aug 11, 2024 10:00 AM AMBULATORY - PSYCHIATRY COREY NICHOLAS [facility] Aug 12, 2024 09:00 AM AMBULATORY - MEDICINE JAYNE SINGH [facility] August 18, 2024 09:00 AM AMBULATORY - SURGERY LARRY HOLLOWAY [facility] September 02, 2024 08:20 AM AMBULATORY - SURGERY LARRY HOLLOWAY [facility] Oct 01, 2024 09:00 AM AMBULATORY - NONE DALE Rios [facility] Oct 30, 2024 09:00 AM AMBULATORY - PSYCHIATRY COREY NICHOLAS [facility] Lab Results: +/- 30 days of [...] Type Comment Jun 30, 2024 03:27 PM [facility] BNP (STODDARD) PLASMA Specimen Type: PLASMA Comment: BNP results less than or equal to 100 pg/ml are factory representative of normal values in patients without CHF. BNP results greater than 100 pg/ml are considered abnormal and suggestive of CHF. Higher BNP concentrations in the first 72 hours after Acute Coronary Syndrome are associated with an increased risk of , myocardial infarction and CHF. Ordering Provider: SACHI SAINZ Report Released Date/Time: Jun 30, 2024 03:21 PM Reporting Lab: [address] [address] Performing Lab: [address] [address] BNP (STODDARD) 22 pg/mL 0-100 Jun 30, 2024 03:27 PM [facility] PANEL 1 PLASMA Specimen Type: [...] Jun 30, 2024 03:21 PM Reporting Lab: [address] [address] Performing Lab: [address] [address] CREATININE 1.43 mg/dL H 0.72-1.25 UREA NITROGEN 22 mg/dL 9-25 GLUCOSE 164 mg/dL H 74-100 SODIUM 139 mmol/L 136-145 POTASSIUM 3.7 mmol/L 3.5-5.1 CHLORIDE 102 mmol/L 98-107 CO2 27 mmol/L 22-29 CALCIUM 9.8 mg/dL 8.4-10.2 ANION GAP 10 meq/L 3-19 eGFR (CKD-EPI) 50 Jun 30, 2024 03:27 PM [facility] CBC/PLT BLOOD Specimen Type: BLOOD No comment entered. Ordering Provider: SACHI SAINZ Report Released Date/Time: Jun 30, 2024 03:21 PM Reporting Lab: [address] [address] Performing Lab: [address] [address] WBC 7.2 10*3/uL 5.0-10.0 RBC 4.85 10*6/uL 4.6-6.2 HGB 14.7 g/dL 14.0-18.0 HCT 43.8 42.0-52.0 MCV 90.3 fL 80.0-94.0 MCH 30.3 pg 27.0-31.0 MCHC 33.6 g/dL 32.0-36.0 PLT 235 10*3/uL 150-450 MPV 10.6 fL 9.0-13.1 RDW 14.8 11.0-16.0 NRBC 0.0 0.0-0.0 May 15, 2024 09:46 AM [facility] MAGNESIUM PLASMA Specimen Type: PLASM A Comment: [...] May 07, 2024 10:35 AM Reporting Lab: [address] [address] Performing Lab: [address] [address] MAGNESIUM 1.8 mg/dL 1.6-2.6 May 15, 2024 09:46 AM [facility] BNP (Semanticator) PLASMA Specimen Type: PLASMA Comment: BNP results less than or equal to 100 pg/ml are factory representative of normal values in patients without CHF. BNP results greater than 100 pg/ml are considered abnormal and suggestive of CHF. Higher BNP concentrations in the first 72 hours after Acute Coronary Syndrome are associated with an increased risk of , myocardial infarction and CHF. Ordering Provider: CYNDI STEINBERG Report Released Date/Time: May 07, 2024 10:35 AM Reporting Lab: [address] [address] Performing Lab: [address] [address] BNP (STODDARD) 29 pg/mL 0-100 May 15, 2024 09:46 AM [facility] 1 PLASMA Specimen Type: PLASM A [...] May 07, 2024 10:35 AM Reporting Lab: [address] [address] Performing Lab: [address] [address] CREATININE 1.54 mg/dL H 0.72-1.25 UREA NITROGEN [...] Provider Source May 29, 2024 05:[address] PERFORMED BY OTHER FACILITY: ERIK GALLEGO [facility] [id number] -1945 M Exm Date: MAY 29, 2024@17:13 Req Phys: CYNDI STEINBERG Loc: DEANNE PACT LULU 1-2 (Req'g Lo Img Loc: OUTSIDE2 LD CT Service: Unknown (Case [id number] COMPLETE) [address] CT PERFORMED BY OTHER FACIL(CT Detailed) CPT:19655 Reason for Study: Exam imported from outside Clinical History: Original Data for Imported Study Patient Name: ERIK GALLEGO Date: 1945 Sex: M Study Date: 05/29/24 Study Time: 05:13:55 Study Description: CT CHEST PE/ABD/PEL W Referring Physician: TAMMI GEE Series 1: 2 CT files, description: ANESTHETIST Series 2: 216 CT files, description: 5.0mm [...] Diagnostic Code: VERIFIED BY: / *ELECTRONICALLY FILED* [facility] May 27, 2024 08:07 AM MYOVIEW(1): ERIK GALLEGO [id number] -1945 M Exm Date: MAY 27, 2024@08:07 Req Phys: CYNDI STEINBERG Loc: DEANNE POD [place] TILE FLOOR LAYER (Req'g Loc) Img Loc: NUCLEAR MEDICINE Service: Unknown [place] [id number] (Case [id number] COMPLETE) MYOVIEW(1) (NM Detailed) CPT:A9502 Reason for [...] 27, 2024 Date Verified: MAY 27, 2024 Underwriting Clerks Supervisor E-Sig: Report: STUDY: GXT REPORT: Patient exercised [...] Staff: ANIA ANDRADE APRN, Cardiology Verified by reflesher for ANIA ANDRADE /ANIA ESPINOZA-CDD [facility] May 27, 2024 08:07 AM 46255(D) MYOCARDIAL SPECT(MULTIPLE): ERIK GALLEGO [id number] -1945 M Ex Date: MAY 27, 2024@08:07 Req Phys: CYNDI STEINBERG Loc: [facility]NE POD [place] TILE FLOOR LAYER (Req'g Loc) Img Loc: NUCLEAR MEDICINE Service: [place] [address] THIS IS AN AMENDED REPORT (Case [id number] COMPLETE) 16805(D) MYOCARDIAL SPECT(MULTIPL(NM Detailed) CPT:21846 Proc Modifiers : GXT Reason for Study: [...] 05, 2024 Date Verified: JUN 05, 2024 Underwriting Clerks Supervisor E-Sig: Report: [facility], [place], [place] STUDY: Treadmill Exercise SPECT Tc-99m myoview [...] performed with tomographic and three-dimensional reconstructions with Peatix NM/CT 640 system. The patient performed treadmill [...] data sets in addition to the conventional yhy-jmklarzswif-hhiatmzip images. Both filtered back projection and iterative [...] ventricular cavity. 4. SPECT images: Attenuation-corrected and ltn-qsbligcoxfm-afohitjef SPECT images were evaluated. SPECT images demonstrate normal myocardial perfusion. There is a medium size, mild intensity defect located in the xtcfv-gw-jdqazg inferior myocardium . The defect is fixed [...] Kerri Mena MD, Cardiology Attending /KERRI LONG-CDJoseph [facility] May 27, 2024 08:07 AM MYOVIEW(2): ERIK GALLEGO [id number] -1945 M [facility] Date: MAY 27, 2024@08:07 Req Phys: CYNDI STEINBERG Loc: DEANNE POD [place] TILE FLOOR LAYER (Req'g Loc) Img Loc: NUCLEAR MEDICINE Service: [place] [address] THIS IS AN AMENDED REPORT (Case [id number] COMPLETE) MYOVIEW(2) (NM Detailed) CPT:A9502 Reason for [...] 05, 2024 Date Verified: JUN 05, 2024 Underwriting Clerks Supervisor E-Sig: Report: [facility], [place], [place] STUDY: Treadmill Exercise SPECT Tc-99m myoview [...] performed with tomographic and three-dimensional reconstructions with Peatix NM/CT 640 system. The patient performed treadmill [...] data sets in addition to the conventional zoj-eonzngkwaht-ceehbfgaa images. Both filtered back projection and iterative [...] ventricular cavity. 4. SPECT images: Attenuation-corrected and iwq-uhgkgxfzxys-whkrptysd SPECT images were evaluated. SPECT images demonstrate normal myocardial perfusion. There is a medium size, mild intensity defect located in the xbvna-aw-jfxklj inferior myocardium . The defect is fixed [...] Kerri Mena MD, Cardiology Attending /KERRI LONG-Joseph [facility] May 27, 2024 08:07 AM TC-99M FROM NON-HIGHLY ENRICHED URANIUM SOURCE: ERIK GALLEGO [id number] 1945 [facility] Date: MAY 27, 2024@08:07 Req Phys: CYNDI STEINBERG Loc: DE[facility]NE POD [place] TILE FLOOR LAYER (Req'g Loc) Img Loc: NUCLEAR MEDICINE Service: [place] [address] THIS IS AN AMENDED REPORT (Case [id number] COMPLETE) TC-99M FROM NON-HIGHLY ENRICHED U(NM Detailed) [...] 05, 2024 Date Verified: JUN 05, 2024 Underwriting Clerks Supervisor E-Sig: Report: [facility], [place], [place] STUDY: Treadmill Exercise SPECT Tc-99m myoview [...] performed with tomographic and three-dimensional reconstructions with Peatix NM/CT 640 system. The patient performed treadmill [...] data sets in addition to the conventional hbb-eqplynotymz-abuunqfro images. Both filtered back projection and iterative [...] ventricular cavity. 4. SPECT images: Attenuation-corrected and otq-rvhkahxtgez-uoedswkec SPECT images were evaluated. SPECT images demonstrate normal myocardial perfusion. There is a medium size, mild intensity defect located in the afbwh-tb-gyufcd inferior myocardium . The defect is fixed [...] BY: Kerri Mena MD, Cardiology Attending /KERRI LONG-[facility] May 27, 2024 08:07 AM CARD. STRESS TEST W/TREADMILL/...: ERIK GALLEGO [id number] -1945 M Ex Date: MAY 27, 2024@08:07 Req Phys: CYNDI STEINBERG Loc: DEANNE POD [place] TILE FLOOR LAYER (Req'g Loc) Img Loc: NUCLEAR MEDICINE Service: [place] [address] THIS IS AN AMENDED REPORT (Case [id number] COMPLETE) CARD. STRESS TEST W/TREADMILL/...(NM Detailed) CPT:31387 Reason for Study: SEE CLINICAL HISTORY Clinical [...] 05, 2024 Date Verified: JUN 05, 2024 Underwriting Clerks Supervisor E-Sig: Report: [facility], [place], [place] STUDY: Treadmill Exercise SPECT Tc-99m myoview [...] performed with tomographic and three-dimensional reconstructions with Peatix NM/CT 640 system. The patient performed treadmill [...] data sets in addition to the conventional hqt-cfyihifqkfp-zjrcqfuku images. Both filtered back projection and iterative [...] ventricular cavity. 4. SPECT images: Attenuation-corrected and czn-ltittyolqeo-ceydcawqy SPECT images were evaluated. SPECT images demonstrate normal myocardial perfusion. There is a medium size, mild intensity defect located in the esnyu-he-zbzwnq inferior myocardium . The defect is fixed [...] Kerri Mena MD, Cardiology Attending /KERRI LONG-Joseph [facility] May 15, 2024 09:57 AM CHEST TWO(2) VIEW PA&LAT: ERIK GALLEGO [id number] -1945 M Ex Date: MAY 15, 2024@09:57 Req Phys: CYNDI STEINBERG Loc: [employer] PACT PHONE LULU Rodriguez'tito Img Loc: [facility] Service: [place] [address] (Case [id number] COMPLETE)CHEST TWO(2) VIEW PA&LAT (RAD Detailed) CPT:47249 Reason for Study: dyspnea Clinical History: Report Status: Verified Date Reported: MAY 17, 2024 Date Verified: MAY 17, 2024 Underwriting Clerks Supervisor E-Sig: Report: CHEST TWO(2) VIEW PA&LAT, 05/15/2024 10:02 AM EST INDICATION: dyspnea COMPARISON: April 16, 2024 Impression: Calcified granuloma right lung apex. No edema or pneumonia. No pleural effusion or pneumothorax. Heart size normal. No acute osseous abnormality. Primary Diagnostic Code: NO ALERT REQUIRED Primary Interpreting Staff: KAILYN STEELE, Staff Physician Verified by reflesher for KAILYN STEELE /KAILYN AVILES [facility] Encounter Notes: All associated encounter notes This section contains the clinical notes associated to the Encounter. Date/Time Encounter Note(s) Provider Source Jun 03, 2024 07:56 AM ADMINISTRATIVE NOT E: LOCAL TITLE: CLERICAL/ADMIN NOTE STANDARD TITLE: ADMINISTRATIVE NOTE DATE OF NOTE: JUN 03, 2024@07:56 ENTRY DATE: JUN 03, 2024@07:57 AUTHOR: ANDREI DAIGLE EXP COSIGNER: URGENCY: STATUS: COMPLETED Received fax from: [facility] Pages including cover: 12 Placed in [facility]/PROVIDER'S mail box. /peyton/ ANDREI DAIGLE [facility] Signed: 06/03/2024 07:58 ANDREI DAIGLE-[facility]
--- OUTSIDE RECORDS SUMMARY | 2024-07-24 21:27 | XMS_ITS | Data Portability ---
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 Plan of Treatment Reminders Order Date Submit Date Provider Last Modified By Organization Details Last Modified Time Details Appointments None recorded. Lab PSA, serum or plasma 2024 025 [facility] [address] [place], [address], 5 14:12:33 HbA1c (hemoglobin A1c), blood 2024 [facility] [address] [place], [address], 5 14:20:24 CMP, serum or plasma 2024 025 [facility] [address] [place], [address], 5 14:13:39 TSH, serum or plasma 2024 [facility] [address] [place], [address], 5 14:12:35 CBC w/ auto diff 2024 [facility] [address] [place], [address], 5 13:27:58 lipid panel, serum 2024 025 [facility] [address] [place], [address], 5 14:13:40 Referral None recorded. Procedures None recorded. Surgeries None recorded. Imaging None recorded. Medication Orders triamcinolo ne acetonide 0.1 % topical ointment 2023 024 [facility], [address] [place], [id number], 4 16:30:59 Patient TargetsNo targets recorded. Patient InstructionsNo instructions recorded. Reason for Referral None Reported. Results Created Date Observation Date Name Description Value Unit Range Abnormal Flag Note LastModifiedBy Organization Detail LastModifiedTime 06/17/1906/16/2024 CBC AUTO W DIFF WBC 6.6 10 4.5-11 .5 Not Available [facility] (Lab Registration) [address] [place], [address], 06/16/2024 13:27:58 06/17/19 25 06/16/2024 CBC AUTO W DIFF RBC 4.90 10 4.25-5 .57 Not Available [facility] (Lab Registration) [address] [place], [address], 06/16/2024 13:27:58 06/17/19 25 06/16/2024 CBC AUTO W DIFF HGB 14.8 g/dL 13.5-1 7.2 Not Available [facility] (Lab Registration) [address] [place], [address], 06/16/2024 13:27:58 06/17/19 25 06/16/2024 CBC AUTO W DIFF HCT 44.1 % 42.0-5 2.0 Not Available [facility] (Lab Registration) [address] [place], [address], 06/16/2024 13:27:58 06/17/19 25 06/16/2024 CBC AUTO W DIFF MCV 90.0 fL 80-95 Not Available [facility] (Lab Registration) [address] [place], [address], 06/16/2024 13:27:58 06/17/19 25 06/16/2024 CBC AUTO W DIFF MCH 30.2 pg 27.0-3 4.0 Not Available [facility] (Lab Registration) [address] [place], [address], 06/16/2024 13:27:58 06/17/19 25 06/16/2024 CBC AUTO W DIFF MCHC 33.6 g/dL 32.0-3 6.0 Not Available [facility] (Lab Registration) [address] [place], [address], 06/16/2024 13:27:58 06/17/19 25 06/16/2024 CBC AUTO W DIFF platelet count 226 10 150-45 0 Not Available [facility] (Lab Registration) [address] [place], [address], 06/16/2024 13:27:58 06/17/19 25 06/16/2024 CBC AUTO W DIFF RDW 14.9 % 12.3-1 5.1 Not Available [facility] (Lab Registration) [address] [place], [address], 06/16/2024 13:27:58 06/17/19 25 06/16/2024 CBC AUTO W DIFF MPV 11.5 fL 7.4-10 .4 high Not Available [facility] (Lab Registration) [address] [place], [address], 06/16/2024 13:27:58 06/17/19 25 06/16/2024 CBC AUTO W DIFF granulocyte% 64.1 % 40-75 Not Available [facility] (Lab Registration) [address] [place], [address], 06/16/2024 13:27:58 06/17/19 25 06/16/2024 CBC AUTO W DIFF lymphocyte% 25.0 % 15-57 Not Available [facility] (Lab Registration) [address] [place], [address], 06/16/2024 13:27:58 06/17/19 25 06/16/2024 CBC AUTO W DIFF monocyte% 8.1 % 4.0-12 .0 Not Available [facility] (Lab Registration) [address] [place], [address], 06/16/2024 13:27:58 06/17/19 25 06/16/2024 CBC AUTO W DIFF eosinophil% 2.3 % 0.0-4. 0 Not Available [facility] (Lab Registration) [address] [place], [address], 06/16/2024 13:27:58 06/17/19 25 06/16/2024 CBC AUTO W DIFF basophil% 0.3 % 0.0-1. 0 Not Available [facility] (Lab Registration) [address] [place], [address], 06/16/2024 13:27:58 06/17/19 25 06/16/2024 CBC AUTO W DIFF immature granulocytes % 0.2 % 0.0-0. 8 Not Available [facility] (Lab Registration) [address] [place], [address], 06/16/2024 13:27:58 06/17/19 25 06/16/2024 CBC AUTO W DIFF granulocyte# 4.25 10 Not Available [facility] (Lab Registration) [address] [place], [address], 06/16/2024 13:27:58 06/17/19 25 06/16/2024 CBC AUTO W DIFF lymphocyte# 1.66 10 Not Available [facility] (Lab Registration) [address] [place], [address], 06/16/2024 13:27:58 06/17/19 25 06/16/2024 CBC AUTO W DIFF monocyte# 0.54 10 Not Available [facility] (Lab Registration) [address], [place], [address], 06/16/2024 13:27:58 06/17/19 25 06/16/2024 CBC AUTO W DIFF eosinophil# 0.15 10 Not Available [facility] (Lab Registration) [address] [place], [address], 06/16/2024 13:27:58 06/17/19 25 06/16/2024 CBC AUTO W DIFF basophil# 0.02 10 Not Available [facility] (Lab Registration) [address] [place], [address], 06/16/2024 13:27:58 06/17/19 25 06/16/2024 CBC AUTO W DIFF immature granulocytes # 0.01 10 Not Available [facility] (Lab Registration) [address] [place], [address], 06/16/2024 13:27:58 06/17/19 25 06/16/2024 CBC AUTO W DIFF manual differential NO Not Available [facility] (Lab Registration) [address] [place], [address], 06/16/2024 13:27:58 06/17/19 25 06/16/2024 CBC AUTO W DIFF note Unles s other dunlap noted testi ng perfo rmed at: [facility] [address] [place] [address] [phone] Max li MD CLIA: [id number] Not Available [facility] (Lab Registration) [address] [place], [address], 06/16/2024 13:27:58 06/17/19 25 06/16/2024 PROST ATE SPECI FIC AG (PSA) prostate specific Ag (PSA) 1.63 NG/mL 0.0-4. 0 Not Available [facility] (Lab Registration) [address] [place], [address], 06/16/2024 14:12:33 06/17/19 25 06/16/2024 PROST ATE SPECI FIC AG (PSA) note Unles s other dunlap noted testi ng perfo rmed at: [facility] [address] [place] [phone] Max li MD CLIA: [id number] Not Available [facility] (Lab Registration) [address], [place], [address], 06/16/2024 14:12:33 06/17/19 25 06/16/2024 THYRO ID STIMU LATIN G HORMO NE thyroid stimulating hormone 1.51 mIU/m L 0.34-4 .80 Not Available [facility] (Lab Registration) [address], [place], [address], 06/16/2024 14:12:34 06/17/19 25 06/16/2024 THYRO ID STIMU LATIN G HORMO NE note Unles s other dunlap noted testi ng perfo rmed at: [facility] [address] [place] [phone] Max li MD CLIA: [id number] Not Available [facility] (Lab Registration) [address], [place], [address], 06/16/2024 14:12:34 06/17/19 25 06/16/2024 COMP METAB OLIC PANEL sodium 139 mmol/ L 136-14 5 Not Available [facility] (Lab Registration) [address] [place], [address], 06/16/2024 14:13:39 06/17/19 25 06/16/2024 COMP METAB OLIC PANEL potassium 3.9 mmol/ L 3.5-5. 1 Not Available [facility] (Lab Registration) [address], [place], [address], 06/16/2024 14:13:39 06/17/19 25 06/16/2024 COMP METAB OLIC PANEL chloride 101 mmol/ L 98-107 Not Available [facility] (Lab Registration) [address] [place], [address], 06/16/2024 14:13:39 06/17/19 25 06/16/2024 COMP METAB OLIC PANEL carbon dioxide 27 mmol/ L 21-32 Not Available [facility] (Lab Registration) [address] [place], [address], 06/16/2024 14:13:39 06/17/19 25 06/16/2024 COMP METAB OLIC PANEL anion gap 11.0 Not Available [facility] (Lab Registration) [address] [place], [address], 06/16/2024 14:13:39 06/17/19 25 06/16/2024 COMP METAB OLIC PANEL glucose 128 mg/dL 70-110 high Not Available [facility] (Lab Registration) [address] [place], [address], 06/16/2024 14:13:39 06/17/19 25 06/16/2024 COMP METAB OLIC PANEL blood urea nitrogen 21 mg/dL 7-18 high Not Available [facility] (Lab Registration) [address] [place], [address], 06/16/2024 14:13:39 06/17/19 25 06/16/2024 COMP METAB OLIC PANEL creatinine 1.6 mg/dL 0.8-1. 3 high Not Available [facility] (Lab Registration) [address] [place], [address], 06/16/2024 14:13:39 06/17/19 25 06/16/2024 COMP METAB OLIC PANEL BUN/creatini ne ratio 13.1 9-21 Not Available [facility] (Lab Registration) [address] [place], [address], 06/16/2024 14:13:39 06/17/19 25 06/16/2024 COMP METAB OLIC PANEL estimated glom filtration rate 44 mL/mi n >60- low GFR LIMIT ATION : The eGFR equat ion CKD-E PI 2020 is not appli cable for pedia tric patie nts or great er than 90 years of age. The follo wing condi tions may alter the GFR resul t: extre mes in body size, malnu triti on or obesi ty, skele prem muscl e disea se, parap legia or quadr ipleg ia, veget parker diet or rapid ly alcantara ing kiney funct ion. Not Available [facility] (Lab Registration) [address], [place], [address], 06/16/2024 14:13:39 06/17/19 25 06/16/2024 COMP METAB OLIC PANEL total protein 6.4 g/dL 6.4-8. 2 Not Available [facility] (Lab Registration) [address], [place], [address], 06/16/2024 14:13:39 06/17/19 25 06/16/2024 COMP METAB OLIC PANEL albumin 3.7 g/dL 3.4-5. 0 Not Available [facility] (Lab Registration) [address], [place], [address], 06/16/2024 14:13:39 06/17/19 25 06/16/2024 COMP METAB OLIC PANEL calcium 9.3 mg/dL 8.5-10 .1 Not Available [facility] (Lab Registration) [address] [place], [address], 06/16/2024 14:13:39 06/17/19 25 06/16/2024 COMP METAB OLIC PANEL corrected calcium 9.5 mg/dL 8.5-10 .1 Not Available [facility] (Lab Registration) [address], [place], [address], 06/16/2024 14:13:39 06/17/19 25 06/16/2024 COMP METAB OLIC PANEL bilirubin total 1.5 mg/dL 0.4-1. 5 Not Available [facility] (Lab Registration) [address], [place], [address], 06/16/2024 14:13:39 06/17/19 25 06/16/2024 COMP METAB OLIC PANEL AST (SGOT) 21 U/L 15-37 Not Available [facility] (Lab Registration) [address] [place], [address], 06/16/2024 14:13:39 06/17/19 25 06/16/2024 COMP METAB OLIC PANEL ALT (SGPT) 25 U/L 12-78 Not Available [facility] (Lab Registration) [address] [place], [address], 06/16/2024 14:13:39 06/17/19 25 06/16/2024 COMP METAB OLIC PANEL alk phosphatase 96 U/L Not Available [facility] (Lab Registration) [address] [place], [address], 06/16/2024 14:13:39 06/17/19 25 06/16/2024 COMP METAB OLIC PANEL note Unles s other dunlap noted testi ng perfo rmed at: [facility] [address] [place] [address] [phone] 00 Max li MD CLIA: [id number] Not Available [facility] (Lab Registration) [address] [place], [address], 06/16/2024 14:13:39 06/17/19 25 06/16/2024 LIPID PANEL triglyceride 122 mg/dL 20-200 The [employer] (NCEP ) has set the follo wing guide lines for Fasti ng Trigl yceri killian: JONATHAN L: <150 mg/dL BORDE RLINE HIGH: 150 - 199 mg/dL HIGH: 200 - 499 mg/dL VERY HIGH: > or =500 mg/dL Not Available [facility] (Lab Registration) [address] [place], [address], 06/16/2024 14:13:40 06/17/19 25 06/16/2024 LIPID PANEL cholesterol 98 mg/dL 0-200 The [employer] (NCEP ) has set the follo wing guide lines for Fasti ng Christiane stero l: NICOLAS ABLE: <200 mg/dL BORDE RLINE HIGH: 200 - 239 mg/dL HIGH: > or =240 mg/dL Not Available [facility] (Lab Registration) [address] [place], [address], 06/16/2024 14:13:40 06/17/19 25 06/16/2024 LIPID PANEL HDL cholesterol 42 mg/dL 60- low The [employer] (PENDING SALE TO [facility] ) has set the follo wing guide lines for Fasti ng HDL Christiane stero l: LOW HDL: <40 mg/dL JONATHAN L: 40 - 60 mg/dL NICOLAS ABLE: >60 mg/dL Not Available [facility] (Lab Registration) [address] [place], [address], 06/16/2024 14:13:40 06/17/19 25 06/16/2024 LIPID PANEL LDL calculated 32 mg/dL 100- low The [employer] (MIEP ) has set the follo wing guide lines for Fasti ng LDL Christiane stero l: OPTIM AL: < 100 mg/dL LOW RISK: 100 - 129 mg/dL BORDE RLINE HIGH: 130 - 159 mg/dL HIGH: 160 - 189 mg/dL VERY HIGH: > or = 190 mg/dL Not Available [facility] (Lab Registration) [address] [place], [address], 06/16/2024 14:13:40 06/17/19 25 06/16/2024 LIPID PANEL chol/HDL ratio 2 -5 Not Available [facility] (Lab Registration) [address] [place], [address], 06/16/2024 14:13:40 06/17/19 25 06/16/2024 LIPID PANEL note Unles s other dunlap noted testi ng perfo rmed at: [facility] [address] [place] [address] [phone] 00 Max li MD CLIA: [id number] Not Available [facility] (Lab Registration) [address] [place], [address], 06/16/2024 14:13:40 06/17/19 25 06/16/2024 HEMOG LOBIN A1C glycosylated hemoglobin A1C 6.1 % 4.5-6. 2 Not Available [facility] (Lab Registration) [address] [place], [address], 06/16/2024 14:20:24 06/17/19 25 06/16/2024 HEMOG LOBIN A1C estimated average glucose 128 mg/dL 82-131 Not Available [facility] (Lab Registration) [address] [place], [address], 06/16/2024 14:20:24 06/17/19 25 06/16/2024 HEMOG LOBIN A1C note Logan li other dunlap noted testi ng perfo rmed at: [facility] [address] [place] [address] [phone] 00 Max li MD CLIA: [id number] Not Available [facility] (Lab Registration) [address] [place], [address], 06/16/2024 14:20:24 11/28/19 24 11/01/2023 CT, brain , w/o contr ast No observ ation record ed. BARCODE Not Available 2023 13:06:20 11/28/19 24 11/01/2023 CT, face, w/o contr ast No observ ation record ed. [email or web address] Not Available 13:12:47 Result Notes None recorded. Problems Name Problem SNOMED Code Status Onset Date Resolution Date Notes Provider Name and Address Organization Details Recorded Time Essential hypertension 18884731 Active 2024 Brooke Corral null, [place] - [facility] [place] 5 10:33:46 Type 2 diabetes mellitus 53321066 Active 2024 Brooke Elmore[place] null, [place] [facility] [place] 5 10:33:52 Neuropathy 683619185 Active 2024 Brooke Elmore[place], [place] [facility] [place] 5 10:34:08 Heart disease 97496677 Active 2024 Brooke Elmore[place] null, [place] [facility] [place] 5 10:34:56 Hyperlipidemia 86503516 Active 2024 Brooke [place] null[place] [facility] [place] 5 10:35:05 Gastroesophage al reflux disease 302941861 Active 2024 Brooke Elmorei null, [place] [facility] [place] 10:38:23 Problem Notes None recorded. Procedures Surgical History Date Name Laterality Status Provider Name and Address Organization Details Recorded Time 04/16/19 Cardiovascular Surgery completed Brookelaura Corral [place] [facility] [place] 06/16/2024 10:30:47 Other completed Brookelaura Corral [place] [facility] [place] 06/16/2024 10:30:47 Cataract Surgery completed Brookelaura Elmorei [place] [facility] [place] 06/16/2024 10:36:15 extracorporeal shockwave lithotripsy of calculus of kidney completed Brookelaura Corral [place] [facility] [place] 06/16/2024 10:36:32 dilation of esophageal stricture completed Brookelaura Elmorei [place] [facility] [place] 06/16/2024 10:36:50 Imaging Results Imaging Date Name Status LastModified by [facility] Details LastModified Time 11/01/2023 CT, brain, w/o contrast completed BARCODE Information not available 11/28/2023 13:06:20 11/01/2023 CT, face, w/o contrast completed [email or web address] Information not available 11/28/2023 13:12:47 Procedure Notes None recorded. Medical Equipment None Reported. Allergies Allergen ID Allergen Name Allergen Category Reaction Reaction Severity Criticality Documentation Date Start Date Code Code System Note Provider Name and Address Organization Details Recorded Time 140686 fosinopri l medicatio n cough Not available [facility] 11/28/2023 37457 RxNorm Brenda esteban, [place] [facility] & [place] 4 13:08:40 057808 lisinopri l medicatio n cough Not available [facility] 11/28/2023 52380 RxNorm Brenda esteban, [place] [facility] & [place] 4 13:08:52 353855 acetamino phen / oxycodone medicatio n vomiting Not available [facility] 11/28/2023 47148 3 RxNorm Brenda esteban, [place] - [place] [facility] & [place] 4 13:09:05 Medications Name Sig Start Date Stop Date Status Note LastModified by Organization Details LastModified Time furosemide 40 mg tablet Take 1 tablet every day by oral route. active Not Available Not Available No t Available atorvastati n 40 mg tablet TAKE 1 TABLET BY MOUTH AT BEDTIME NIGHTLY FOR 30 DAYS active Not Available Not Available No t Available doxycycline hyclate 100 mg capsule Take 1 capsule twice a day by oral route. 06/16 completed Not Available Not Available Not Available famotidine 40 mg tablet Take 1 tablet every day by oral route. active Not Available Not Available No t Available sertraline 100 mg tablet Take 1 tablet every day by oral route. active Not Available Not Available No t Available cyanocobala min (vit B-12) 1,000 mcg tablet Take by oral route. active Not Available Not Available No t Available clopidogrel 75 mg tablet TAKE 1 TABLET BY MOUTH ONCE DAILY FOR 30 DAYS active Not Available Not Available No t Available prazosin 5 mg capsule Take 1 capsule twice a day by oral route. active Not Available Not Available No t Available pantoprazol e 40 mg tablet,crescencio yed release Take 1 tablet every day by oral route. active Not Available Not Available No t Available metformin 1,000 mg tablet Take 1 tablet twice a day by oral route. active Not Available Not Available No t Available triamcinolo ne acetonide 0.1 % topical ointment APPLY A THIN LAYER TO THE AFFECTED AREA(S) BY TOPICAL ROUTE 2 TIMES PER DAY 2023 active Not Available Not Available Not Avai lable clotrimazol e 1 % topical solution APPLY TO THE AFFECTED AND SURROUNDI NG AREAS OF SKIN BY TOPICAL ROUTE 2 TIMES PER DAY IN THE MORNING AND EVENING active Not Available Not Available No t Available gabapentin 300 mg capsule Take 1 capsule 3 times a day by oral route. active Not Available Not Available No t Available montelukast 10 mg tablet TAKE 1 TABLET BY MOUTH ONCE DAILY FOR 30 DAYS active Not Available Not Available No t Available furosemide 20 mg tablet TAKE 2 TABLETS BY MOUTH ONCE DAILY 06/16 completed Not Available Not Available Not Available mirtazapine 15 mg tablet Take 1 tablet every day by oral route. 06/16 completed Not Available Not Available Not Available metoprolol succinate ER 25 mg tablet,exte nded release 24 hr Take 1 tablet every day by oral route as directed. active Not Available Not Available No t Available cefuroxime axetil 500 mg tablet Take 1 tablet every 12 hours by oral route. 06/16 completed Not Available Not Available Not Available pioglitazon e 30 mg tablet Take 1 tablet every day by oral route. active Not Available Not Available No t Available amoxicillin 875 mg-potassiu m clavulanate 125 mg tablet TAKE 1 TABLET BY MOUTH EVERY 12 HOURS FOR 10 DAYS 11/27 completed Not Available Not Available Not Available Gaviscon chewable tablet Take by oral route. active Not Available Not Available No t Available ciprofloxac in 0.3 %-dexametha sone 0.1 % ear drops,suspe nsion INSTILL 4 DROPS INTO THE AFFECTED EAR(S) EVERY 12 HOURS FOR 7 DAYS 11/27 completed Not Available Not Available Not Available losartan 100 mg-hydrochl orothiazide 12.5 mg tablet Take 1 tablet every day by oral route. 06/16 completed Not Available Not Available Not Available Fluticasone Propionate (Nasal) active Not Available Not Available Not Available cholecalcif travis (vitamin D3) 25 mcg (1,000 unit) tablet Take by oral route. active Not Available Not Available No t Available diclofenac 1 % topical gel APPLY 2 GRAMS TO THE AFFECTED AREA(S) BY TOPICAL ROUTE 4 TIMES PER DAY active Not Available Not Available No t Available loratadine 10 mg capsule Take by oral route. active Not Available Not Available No t Available magnesium 400 mg (as magnesium oxide) capsule Take 1 capsule every day by oral route. active Not Available Not Available No t Available lidocaine 5 % medicated patch and dimethicone 5 % topical cream active Not Available Not Available Not Available Vitals Date Recorded Body weight Body mass index (BMI) Body height Body temperature Provider Name and Address Organization Details Last Updated DateTime 11/28/2023 24186.77 g 30.7 kg/m2 177.8 cm 97.8 [degF] Brenda Stokes [facility] & [place] 11/28/2023 13:08:23 Date Recorded Body height Body mass index (BMI) Body weight Body temperature Provider Name and Address Organization Details Last Updated DateTime 12/26/2023 177.8 cm 30.6 kg/m2 71178.17 g 97.3 [degF] [facility] [place] 12/26/2023 10:17:15 Date Recorded Body height Body mass index (BMI) Body weight Body temperature Oxygen saturation Oxygen saturation in Arterial blood by Pulse oximetry Heart rate Respiratory rate Systolic blood pressure Diastolic blood pressure Provider Name and Address Organization Details Last Updated DateTime 177.8 cm 31 kg/m2 00732.9 5 g 97 [degF] 97 % 97 % 86 /min 14 /min 149 mm[Hg] 86 mm[Hg] Brooke Corral [facility] & [place] 10:30:19 Social History Question Answer Notes LastModified by Organizat ion Details LastModified Time Tobacco Smoking Status Never Smoker Brooke Corral eulalia [facility] & [place] 06/16/2024 10:30:47 Do You Have An Advance Directive? No Information n ot available 06/16/2024 What Is Your Level Of Alcohol Consumption? None Information not available 06/16/2024 Are You Blind Or Do You Have Difficulty Seeing? No Information n ot available 06/16/2024 What Is Your Level Of Caffeine Consumption? Occasional Information not available 06/16/2024 In The 14 Days Before Symptom Onset, Have You Had Close Contact With A Laboratory-confirm ed COVID-19 While That Case Was Ill? No Information n ot available 06/16/2024 In The 14 Days Before Symptom Onset, Have You Had Close Contact With A Person Who Is Under Investigation For COVID-19 While That Person Was Ill? No Information not available 06/16/2024 Have You Been To An Area Known To Be High Risk For COVID-19? No Information not available 06/16/2024 Are You Currently Employed? No Information not available 06/16/2024 Are You Deaf Or Do You Have Serious Difficulty Hearing? No Information not available 06/16/2024 What Type Of Diet Are You Following? REGULAR Information n ot available 06/16/2024 Have You Processed Blood Or Body Fluids From An Ebola Virus Disease Patient Without Appropriate PPE? No Information not available 06/16/2024 Do You Reside In Or Have You Traveled To An Area Where Ebola Virus Transmission Is Active? No Information not available 06/16/2024 Have There Been Any Changes To Your Family Or Social Situation? No Information no t available 06/16/2024 What Is The Fluoride Status Of Your Home? Unknown Information not available 06/16/2024 Are There Any Guns Present In Your Home? No Information not available 06/16/2024 Have You Recently Or Are You Planning To Travel To An Area With Zika Virus? No Information not available 06/16/2024 Do You Use Insect Repellent Routinely? Yes Information not available 06/16/2024 Do You Feel Safe At Home? Yes Information not available 06/16/2024 Do You Have A Medical Power Of Icing Coater? No Information not available 06/16/2024 What Was The Date Of Your Most Recent Tobacco Screening? 06/15/2024 Information not available 06/16/2024 Do You Have Any Pets? Yes Information not available 06/16/2024 Do You Use Your Seat Belt Or Car Seat Routinely? Yes Information not available 06/16/2024 Do You Have Smoke And Carbon Monoxide Detectors In Your Home? Yes Information not available 06/16/2024 Are You Passively Exposed To Smoke? Yes Information no t available 06/16/2024 Do You Feel Stressed (tense, Restless, Nervous, Or Anxious, Or Unable To Sleep At Night)? [id number] Information not available 06/16/2024 Do You Use Any Illicit Or Recreational Drugs? No Information not available 06/16/2024 Do You Use Sunscreen Routinely? Yes Information not available 06/16/2024 Has Tobacco Cessation Counseling Been Provided? No Information not available 06/16/2024 Are You Currently In School? No Information not available 06/16/2024 Do You Or Have You Ever Used Any Other Forms Of Tobacco Or Nicotine? No Information not available 06/16/2024 Sex: Unknown Functional Status Question Answer Note LastModified by Organizat ion Details LastModified Time Do you have difficulty walking or climbing stairs? No Information not available 06/16/2024 Do you have transportation difficulties? No Information not available 06/16/2024 Are you able to walk? YESWOREST Information not available 06/16/2024 Do you have difficulty doing errands alone? No Information not available 06/16/2024 Are you able to care for yourself? Yes Information n ot available 06/16/2024 Do you have difficulty dressing or bathing? No Information not available 06/16/2024 What is your exercise level? Occasional Information not available 06/16/2024 Mental Status Question Answer Note LastModified by Organization D etails LastModified Time Do you have difficulty concentrating, remembering or making decisions? No Information no t available 06/16/2024 Family History Nothing Reported. Medical History Condition Response Allergies/Hayfever N Heart Problems N Other Y None N Heart Conditions N Ear or Hearing Problems Y Emphysema N Migraines N Thyroid Problems N GI Problems Y Developmental Delay N Depression N Glaucoma N Anemia N Immune System Disorder N Anesthesia Complications N Heart Attack (PR) N Obstructive Sleep Apnea Y Anxiety Disorder N Diabetes Y Bleeding Disorder N Vision or Eye Problems Y Arthritis N Hearing Loss N Tuberculosis N Congestive Heart Failure (CHF) Y Acid Reflux (GERD) N Hyperlipidemia N Cancer N Stroke N Asthma N Reflux/GERD Y Sleep Disorder N GERD/Reflux N Heart Disease N Headaches N Fibromyalgia N Hypertension Y Speech Delay N Kidney Disease N Past Encounters Encounter ID Performer Location Encounter Start Date Encounter Closed Date Diagnosis/Indication Diagnosis SNOMED-CT Code Diagnosis ICD10 Code Diagnosis Note [id number] Torri Grossman MD [facility] [address] [address] 11/28/2023 12:45:02 11/28/2023 13:42:06 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 Explained there was no evidence of sinusitis or mastoiditi s. No evidence of otorrhea in either ear. He does have small amount of eczema in the left EAC. Would like for him to start triamcinol one ointment in that ear for the next seven days. I will see him back in three weeks; sooner if needed. [id number] Torri Grossman MD [facility] [address] [address] 12/26/2023 10:12:41 12/26/2023 10:41:36 Eczema of external auditory canal 79496308 H60.549 Patient's eczema has almost resolved. Explained he can use the triamcinol one when he has a flare. I will see him back as needed. [facility]. [id number] Kanu Li MD [facility] [address] [place] [address] 06/16/2024 10:20:52 06/16/2024 10:43:40 Type 2 diabetes mellitus 86353964 E11.9 Patient is currently on metformin as well as Actos will obtain lab work today. Neuropathy [id number] G62 .9 Patient takes gabapentin . Hyperlipidemia 43363937 E78.5 Will check patient's cholestero l profile today Heart disease [id number] I 51.9 patient to continue to follow-up with cardiology . Essential hypertension 76842779 I10 Patient controls his blood pressure with metoprolol . Screening for malignant neoplasm of prostate 333897520 Z12.5 Health Concerns Section Related Observation LastModified by Organization Detai ls LastModified Time None Recorded Concern Status LastModified by Organization Details LastModified Time None Recorded Advance Directives Directive N: Payers Encounter Date Sequence Insurance Name Policy Number Policy Hopson Covered Member ID Hopson Member ID Guarantor Name 11/28/2023 [facility] [id number] Kitchen [id number] Adelso Kitchen 12/26/2023 [facility] [id number] Kitchen [id number] Adelso Kitchen 06/16/2024 [facility] [id number] Kitchen [id number] Adelso Kitchen 06/16/2024 1 [employer] (MEDICARE REPLACEMENT/ ADVANTAGE - HMO) Adelso Oksana Tad [id number] Adelso Edphilip Notes Date Note Type Note Provider Name and Address Organization Details Recorded Time 11/28/2023 text/html 11/28/23-Patient is here for left ear draining with blood. [facility] several times for ear pain in the left ear. Patient states it Started October 22, he was given Augmentin and Ciprofloxacin drops. Has had imaging done at [facility] Ed as well. On 11/01, he was given Neomycin ear drops that burnt his ear really bad so he stopped them. He states he has recently had a spot removed on the left ear and he just got the results back. This came back as a skin cancer and they are going to remove it. Patient has hearing aids but he has not been wearing them. Torri Grossman MD [address], [place], [address], [facility] - [place] & [place] 11/29/2023 15:22:41 12/26/2023 text/html 11/28/23-Patient is here for left ear draining with blood. Patient has been to [facility] ED several times for ear pain in the left ear. Patient states it Started October 22, he was given Augmentin and Ciprofloxacin drops. Has had imaging done at [facility] Ed as well. On 11/01, he was given Neomycin ear drops that burnt his ear really bad so he stopped them. He states he has recently had a spot removed on the left ear and he just got the results back. This came back as a skin cancer and they are going to remove it. Patient has hearing aids but he has not been wearing them. 12/26/23-Patient is here for three week follow up no left ear, he states he has not had any pain or draining and is doing better. Torri Grossman MD [address] [facility], [place], [address], [place] - [facility] - [place] & [place] 12/26/2023 11:29:13 06/16/2024 text/html Patient presents today to establish care. He has had a recent cardiac event. Had stents placed in his LAD by Dr. Dia kumar at [facility]. [facility]. He is seeking to establish care with a local physician practice. Kanu Li MD [address] [place] [address], [phone], [place] - [facility] - [place] & [place] 06/16/2024 11:02:08
--- OUTSIDE RECORDS SUMMARY | 2024-07-24 21:27 | XMS_ITS | Encounter Summary ---
Author Name [facility] [place] [facility] [place] [facility] [facility] [place] Address [address] [place] [address] Care Team Providers Care Recycling Coordinator Name Role Phone LAURA STEINBERG Primary Care [...] PART A Oct 14, 2009 PART A [id number] Alex MISHRA PATIENT MEDICARE (WNR) MEDICARE (M) PART B Oct 14, 2009 PART B [id number] Alex MISHRA PATIENT MEDICARE (WNR) MEDICARE (M) PART A Oct 14, 2009 PART A [id number] Alex MISHRA PATIENT MEDICARE (WNR) MEDICARE (M) PART B Oct 14, 2009 PART B [id number] Alex MISHRA PATIENT MEDICARE (WNR) MEDICARE (M) PART A Oct 14, 2009 PART A [id number] Alex MISHRA PATIENT MEDICARE (WNR) MEDICARE (M) PART B Oct 14, 2009 PART B [id number] Alex MISHRA PATIENT Selected Encounter This section includes the information on record at [place] for the Encounter. Date/Time Encounter Type Encounter Description Reason Provider Source Dec 13, 2023 08:30 AM OFFICE O/P NEW LOW 30 MIN PLASTIC SURGERY ICD-10-CM M71.30 Other bursal cyst, unspecified site PELON CHEUNG Encounter Template Text not used by [place] Assessments - Encounter Diagnoses This section includes the primary and secondary diagnoses documented for the Encounter. Date/Time Primary/Secondary Diagnosis Diagnosis Name Provider Source Jan 11, 2024 10:24 AM PRIMARY Other bursal cyst, unspecified site COLLINS PETER [facility] Plan of Treatment: Future Appointments (+ 6 months) and Future Tests (+/- 45 days) The Plan of Treatment section includes future care activities for the patient from all [place] treatmentfacilities. This section includes future appointments and future orders which are active, pending or scheduled. Future Appointments This section includes appointments that were scheduled to occur 6 months from the date of the Encounter, up to a maximum of 20 appointments. The data comes from all [place] treatment facilities. Appointment Date/Time Appointment Type Appointme nt Facility Name Dec 14, 2023 11:00 AM AM[place]ULATORY - NONE [place] [facility] Dec 18, 2023 08:00 AM AMB[facility]ORY - NONE [place] [facility] Dec 27, 2023 09:30 AM AMBULATORY - [facility]CHIATRY [facility] Dec 27, 2023 03:00 PM AMBULATORY - NONE [place] [facility] Jan 04, 2024 09:00 AM AMBULATORY - MEDICINE [facility] Jan 10, 2024 01:30 PM [facility] Jan 14, 2024 08:00 AM [facility]ATORY - NONE [place] [facility] Jan 22, 2024 08:30 AM AMBULATORY - MEDICINE [facility] Jan 22, 2024 01:00 PM AM[facility]ULATORY - [place]GERY [place] [facility] Jan 29, 2024 01:00 PM [facility] Feb 14, 2024 08:30 AM AMBULATORY - NONE [facility] Feb 14, 2024 10:00 AM AMBULATORY - SURGERY [facility] Feb 27, 2024 02:00 PM [facility] Feb 28, 2024 01:30 PM AMBULATORY - SURGERY [facility] Feb 28, 2024 02:30 PM AMBULATORY - REHAB [facility]ICIN [facility] Feb 29, 2024 09:20 AM AMBULATORY - SURGERY [facility] Mar 04, 2024 09:00 AM AMBULATORY - PSYCHIATRY [facility] Mar 17, 2024 01:00 PM AMBULATORY - SURGERY [facility] Mar 18, 2024 08:30 AM AMBULATORY - REHAB MEDICIN E [facility] Mar 18, 2024 10:00 AM AMBULATORY - SURGERY [facility] Pathology Reports: +/- 30 days [...] the Encounter. The data comes from all [facility] facilities. Date/Time Pathology Report Provider Source Nov 22, 2023 02:52 PM LR SURGICAL PATHOL KIP REPORT: LOCAL TITLE: LR SURGICAL PATHOLOGY REPORT DATE OF NOTE: NOV 22, 2023@14:52:40 ENTRY DATE: NOV 22, 2023@14:52:40 AUTHOR: FINA EDGAR COSIGNER: URGENCY: STATUS: COMPLETED $APHDR Reporting Lab: [facility] [CLIA# [id number]] [address] [place] [address] - - - - - - - [...] - PATHOLOGY REPORT Accession No. [id number] - - - - - - - - - - - - - - - - - - - - - - - - - - - - - - - - - - - - - - - - $TEXT Submitted by: MONICA Date obtained: Nov 19, 2023 - - - - - - - - - - - - - - - - - - - - - - - - - - - - - - - - - - - - - - - - Specimen (Received Nov 20, 2023 08:58): LEFT PREAURICULAR CHEEK (SHAVE) - - - - - - - - - - - - - - - - - - - - - - - - - - - - - - - - - - - - - - - - BRIEF CLINICAL HISTORY: 4MM SCABBED PAPULE. - - - - - - - - - - - - - - - - - - - - - - - - - - - - - - - - - - - - - - - - PREOPERATIVE DIAGNOSIS: RULE OUT BCC/SCC VS ISK. - - - - - [...] POSTOPERATIVE DIAGNOSIS: NOT GIVEN. Surgeon/physician: INDER ROGERS =-=-=-=-=-=-=-=-=-=-=-=-= -=-=-=-=-=-=-=-=-=-=-=-=- =-=-=-=-=-=-=-=-=-=-=-=-= -=-= - - - - - - - - - - - - - - - - - - - - - - - - - - - - - - - - - - - - - - - - PATHOLOGY REPORT Accession No. [id number] - - - - - - - - - - - - - - - - - - - - - - - - - - - - - - - - - - - - - - - - Pathology Resident: ERICA RAMOS The specimen is received in formalin labeled left preauricular cheek and consists of one shave of ulrich/white skin measuring 0.5 x 0.4 x 0.2 cm. The shave demonstrates a raised, papulated and pigmented central lesion measuring 0.2 x 0.2 cm which comes to within 0.1 cm of the nearest margin. The deep resected surface is inked blue. The specimen is bisected and entirely in one cassette. CPT CODE - [id number] MICROSCOPIC EXAM/DIAGNOSIS: Skin, preauricular cheek, left, shave biopsy: -Squamous cell carcinoma, involving the deep margin. /peyton/ FINA EDGAR Pathologist Signed Nov 22, 2023@14:52 Performing Laboratory: Surgical Pathology Report Performed By: [facility] [CLIA# [id number]] [address] [place] [id number] $FTR - - - - - - - - - - - - - - - - - - - - - - - - - - - - - - - - - - - - - - - - (End of report) FINA EDGAR [facility] Date Nov 22, 2023 - - - - - - - - - - - - - - - - - - - - - - - - - - - - - - - - - - - - - - - - ADELSO MISHRA STANDARD FORM 515 ID:[id number] SEX:M :1945 AGE: 78 LOC:PATH PCP: Laura Steinberg MD /jocy EDGAR Pathologist Signed: 11/22/2023 14:52 FINA EDGAR[facility] Encounter Notes: All associated encounter notes This section contains the clinical notes associated to the Encounter. Date/Time Encounter Note(s) Provider Source Jan 31, 2024 01:48 PM SURGERY OPERATIVE NOTE: LOCAL TITLE: OR NURSE UNIVERSAL PROTOCOL CHECKLIST STANDARD TITLE: SURGERY OPERATIVE NOTE DATE OF NOTE: JAN 31, 2024@13:48 ENTRY DATE: JAN 31, 2024@13:48:15 AUTHOR: FEMI MANDEL EXP COSIGNER: URGENCY: STATUS: COMPLETED PREOPERATIVE ASSESSMENT REVIEW: History & Physical dated within 30 days Yes Interval/Focus H&P Note within 24 hours of planned procedure Yes Attending note within 30 days Yes Laboratory Values N/A Anesthesia Assessment Yes Perioperative Nursing Assessment Yes Preanestheisa assessment Yes Diagnostic and radiologic test results Yes Blood products N/A Allergies Yes DNR Status N/A Advance Directive N/A At the time of the preoperative visit the patient/family verbalized understanding of pending procedure and outcome. Yes PROCEDURE: right long finger cyst excision PROCEDURE SITE: right lng finger Surgeon privileges verified: Yes Preop briefing performed: Yes Introduction of team members: Yes INTRAOPERATIVE BRIEFING: Patient has been re-assessed with no changes noted and agrees to plan of procedure: Yes Two patient identifiers used to identify patient: patient verbalizes name, patient verbalizes social security number, patient verbalizes date of , patient ID band Surgical site, Informed consent, H&P, Interval/Focus and Attending notes have been reviewed and verified by circulating nurse: Yes femi mandel Operative site marked YES by the surgeon: Yes Antibiotic prophylaxis within one hour before incision: Yes Risk of blood loss (if yes, # of units available)? N/A All members of the team have discussed care plan and addressed concerns:Yes INTEROPERATIVE GOALS/INTERVENTIONS: 1. Nursing diagnosis - Potential for injury/trauma due to wrong site surgery or wrong site regional anesthesia. GOAL: Prevent wrong site surgery/wrong site anesthesia. Regional anesthesia performed in OR by anesthesia provider: No NO NO Regional Anesthesia time out @ INTERVENTIONS: Visual inspection of instrumentation for Bio-burden & impairments. Verbalization during time-out process: Yes Verbalization indicators have been confirmed: Yes State correct patient position:supine Time-out performed and agreed upon after draping and prior to the start of procedure, by: Resident surgeon michael merrill md Attending surgeon dharmesh cheung md Anesthesia félix rae [facility] Scrub personnel elisabeth irving Circulating nurse amrita mandel rn Verify time of time-out : 1308 Time out included: Patient name, Social Security Number, Position, Bioburden, Implants, Xrays, availability of blood products and preoperative antibiotics. EVALUATION: Goal Met - Yes Radiographic image used: Not applicable If yes, confirmed with the following two members of the operating team: Confirm availability of correct implants, special equipment or special requirements with doctor, circulating nurse and scrub personnel: Not Applicable Ophthalmologic Intraocular Lens Implant Procedure: N/A. Spinal Surgery: N/A. 2. Nursing Diagnosis: Potential alteration in body temperature related to cool operating room and surgical procedure. GOAL: Maintain body temperature during intraoperative period to avoid physiological stress. INTERVENTIONS: Warm OR room before admission, Provide warmed blankets, Avoid/minimize exposure, Cover with air warmer blanket, Warm irrigation as needed EVALUATION: Goal Met - Yes 3. Nursing Diagnosis - Potential for impaired tissue integrity and injury, related to length of surgery, positioning during surgery, use of sharps, sponges, instruments and electrosurgical unit during surgery. GOAL: Patient will experience; no electrosurgical injury; skin will be intact at the end of surgery; sustain no nerve injury during surgery; will demonstrate no loss of movement or sensation post-op due to positioning complications; be free of foreign body at end of procedure as evidenced by a correct count; no redness or tissue breakdown will be noted post-op. INTERVENTIONS: Skin prep solution will not pool under patient, Ensure electrosurgical equipment functions properly and grounding pad is secure, Ensure the pressure areas are padded, Counts done are appropriate for case, Assess skin conditions pre and post op, Specimen(s) identified and labeled EVALUATION: Goal Met - Yes 4. Nursing Diagnosis - Potential for infection related to surgical incision and possible wound contamination during surgery. GOAL: Patient will be free of wound infection with no evidence of redness, edema, heat or drainage. INTERVENTIONS: Patient hair removal by clippers., Strict aseptic technique maintained., Traffic in and out of OR kept to a minimum., Hand hygiene done frequently. EVALUATION: Goal Met - Yes 5. Nursing Diagnosis - Communication GOAL: Effective communication with family during procedure and post operative nurses will provide continuity of care. INTERVENTIONS: Communication with family: Yes updated prior to coming to or EVALUATION: Goal Met - Yes Post-op debriefing performed: Yes SBAR - Situation/Background/Assessm ent/Recommendation: Handoff communication/report given: [place] of person report given to: henrik yousif rn Name of person report given by: amrita mandel Time report given: 1473 Patient transferred to: PACU /es/ FEMI MANDEL RN Signed: 01/31/2024 13:54 FEMI MANDEL-[facility] Dec 18, 2023 05:05 PM PLASTIC SURGERY NU RSING OUTPATIENT NOTE: LOCAL TITLE: PLASTIC SURGERY CLINIC NURSING EXIT NOTE STANDARD TITLE: PLASTIC SURGERY NURSING OUTPATIENT NOTE DATE OF NOTE: DEC 18, 2023@17:05 ENTRY DATE: DEC 18, 2023@17:05:46 AUTHOR: COLLINS PETER EXP COSIGNER: URGENCY: STATUS: COMPLETED Chart reviewed. Pt seen by MD who provided care to the patient. Pt exited clinic per MD. Scheduled excision of right long finger mucous cyst on 01/31/24 - Discussed the risks, benefits, and alternatives of surgical intervention. We discussed the operative incisions, postoperative care and restrictions. We also discussed that the although we attempt to excise the entire capsule, there is a risk of cyst recurrence. - RTC in one month for preop appointment Plan: RTC 01/21 preOp appt RTC order placed /peyton/ COLLINS PETER Surgery [facility] Attendant Signed: 12/18/2023 17:09 [facility], [facility]23 08[facility]47 AM PLASTIC SURGERY CO NSULT: LOCAL TITLE: PLASTIC SURGERY CONSULT RESPONSE STANDARD TITLE: PLASTIC SURGERY CONSULT DATE OF NOTE: DEC 13, 2023@08:47 ENTRY DATE: DEC 13, 2023@08:48:11 AUTHOR: LUCIA YUNG EXP COSIGNER: PELON CHEUNG URGENCY: STATUS: COMPLETED PLASTIC SURGERY CONSULT RESPONSE Has ADDENDA PLASTIC SURGERY CONSULT NOTE PAIN:0 (12/13/2023 08:14) Presenting problems and reason for visit: right long finger cyst History and objective data relative to the presenting problems: Adelso Mishra is a 78 yo RHD M with PMH significant for DM on metformin, HTN, OA, JAYLA, who presents in consultation for evaluation of right long finger mucous cyst. The cyst has been present for a few months and waxes and wanes in size. It occassionally busts open and drains. He has developed an associated nail deformity. It causes discomfort and he is interested in removal. He reports hx of R RF distal phalanx fracture in the 1960s, otherwise no other hand trauma. Denies prior hand surgery. PAST MEDICAL HX: Active problems - Computerized [...] bronchus, and lung 10. Osteoarthritis (SNOMED CT 034424309) 11. Gastro-esophageal reflux disease with esophagitis (SNOMED CT 982152665) 12. Allergic rhinitis * 13. Hypertension (SNOMED CT 88034466) 14. Diabetes mellitus (SNOMED CT 54949481) 15. NEPHROLITHIASIS 16. Gout * OTHER MEDICAL HX/PROBLEMS: PAST SURGICAL HX: Denies prior hand surgery ALLERGIES: LISINOPRIL, FOSINOPRIL, PERCOCET MEDICATIONS: Medicine/Supplies Qty Last Filled 1) MIRTAZAPINE 15MG TAB: TAKE ONE-HALF TABLET BY 45 NOV 05, 2023 MOUTH AT BEDTIME FOR SLEEP 2) PRAZOSIN HCL 5MG CAP: TAKE ONE CAPSULE BY MOUTH AT 90 NOV 05, 2023 BEDTIME FOR NIGHTMARES 3) SERTRALINE HCL 100MG TAB: TAKE ONE AND ONE-HALF 135 OCT 18, 2023 TABLETS BY MOUTH EVERY MORNING FOR MOOD 4) ACCU-CHEK GUIDE (GLUCOSE) TEST STRIP: USE 1 STRIP 50 DEC 08, 2023 TO TEST BLOOD SUGAR 3-4 TIMES WEEKLY 5) CHOLECALCIF 25MCG (D3-1,000UNIT) TAB: TAKE FOUR 400 DEC 08, 2023 TABLETS BY MOUTH DAILY FOR VITAMIN D SUPPLEMENT 6) DICLOFENAC NA 1% TOP GEL: APPLY SMALL AMOUNT TO 300 DEC 08, 2023 AFFECTED AREA EVERY 6 HOURS NEEDED FOR 7) FLUTICASONE PROP 50MCG 120D NASAL INHL: USE 2 3 DEC 08, 2023 SPRAYS IN EACH NOSTRIL DAILY FOR NASAL ALLERGY 8) HYDROPHILIC (EQV EUCERIN) TOP CREAM: APPLY SMALL 454 APR 22, 2023 AMOUNT TO AFFECTED AREA TWICE A DAY NEEDED FOR DRY SKIN 9) LIDOCAINE 5% 5IN X 6IN PATCH: APPLY 2 PATCHES TO 60 NOV 29, 2023 SKIN DAILY FOR PAIN -LEAVE ON 12 HOURS, THEN REMOVE 10) METFORMIN HCL 1000MG TAB: TAKE ONE TABLET BY MOUTH 180 DEC 08, 2023 TWICE A DAY FOR DIABETES 11) PIOGLITAZONE HCL 30MG TAB: TAKE ONE TABLET BY 90 DEC 10, 2023 MOUTH DAILY FOR DIABETES 12) CLINDAMYCIN PHOSPHATE 1% TOP GEL: APPLY SMALL 60 APR 22, 2023 AMOUNT TO AFFECTED AREA TWICE A DAY FOR INFECTION 13) PANTOPRAZOLE NA 40MG EC TAB: TAKE ONE TABLET BY 180 DEC 13, 2023 MOUTH TWICE A DAY 30 MINUTES BEFORE A MEAL FOR 14) CLOTRIMAZOLE 1% TOP SOLN: APPLY SMALL AMOUNT TO 30 NOV 29, 2023 AFFECTED AREA TWICE A DAY FOR FUNGAL INFECTION 15) CYANOCOBALAMIN 1000MCG TAB: TAKE ONE TABLET BY 90 DEC 17, 2023 MOUTH DAILY FOR VITAMIN B12 SUPPLEMENT 16) HCTZ 12.5MG/LOSARTAN 100MG TAB: TAKE 1 TABLET BY 90 DEC 16, 2023 MOUTH DAILY FOR BLOOD PRESSURE/HEART 17) LORATADINE 10MG TAB: TAKE ONE TABLET BY MOUTH 90 DEC 16, 2023 DAILY FOR ALLERGIES 18) GABAPENTIN 300MG CAP: TAKE ONE CAPSULE BY MOUTH 120 NOV 29, 2023 EVERY MORNING AND TAKE ONE CAPSULE AT NOON 19) GAVISCON ES CHEW TAB: CHEW 1 TABLET BY MOUTH AFTER 100 NOV 29, 2023 MEALS NEEDED FOR INDIGESTION/REFLUX 20) TRIAMCINOLONE ACETONIDE 0.1% OINT: APPLY SMALL 30 NOV 29, 2023 AMOUNT TO AFFECTED AREA TWICE A DAY FOR SKIN RASH NON-VA MEDS - NONE FOUND Patient educated on medication changes and an updated list of medications was provided. SOCIAL HISTORY: Tobacco: denies Alcohol: denies Illicit drugs: denies FAMILY HISTORY: Comments: reviewed and non-contributory REVIEW OF SYSTEMS: 14 point review of systems negative except as stated above PHYSICAL EXAMINATION: VITALS: WEIGHT: Measurement DT WEIGHT LB(KG)[BMI] 12/13/2023 08:14 212.0(96.16)[30*] TEMP: Measurement DT TEMP F(C) 12/13/2023 08:14 97.6(36.4) PULSE: Measurement DT PULSE 12/13/2023 08:14 73 PULSE OX: Measurement DT POx (L/MIN)(%) 12/13/2023 08:14 96 RESPIRATIONS: No values within 24 hours PAIN SCORE: Measurement DT PAIN 12/13/2023 08:14 0 BLOOD PRESSURE: Measurement DT BP 12/13/2023 08:14 134/73 PE: GEN: A&Ox3, NAD SKIN: Warm, dry, normal hair distribution w/appropriate skin turgor HEENT: Normocephalic, atraumatic, PERRLA, MMM PULM: Unlabored breathing on RA, symmetric chest rise ABD: Non-distended, soft CARDIAC: Warm, well perfused, RRR EXT: Focused exam of RUE- able to make a composite fist without difficulty, 5/5 strenth, SILT median ulnar and radial nerve distributions, R dorsal long finger with 0.5cm well circumscribed cyst adjacent to the eponychial fold with associated nail deformity PSYCH: Euthymic, congruent mood. LABS: CBC/PLT, BLOOD - Partial Panel found WBC , BLOOD, 07/16/23@59 9.3 K/cmm (5.0 - 10.0) RBC, BLOOD, 07/16/23 5.22 M/cmm (4.6 - 6.2) HGB, BLOOD, 07/16/2359 15.5 g/dL (14.0 - 18.0) HCT, BLOOD, 07/16/23 47.9 % (42.0 - 52.0) MCV, BLOOD, 07/16/23 91.8 fL (80.0 - 94.0) MCH, BLOOD, 07/16/23 29.7 pg (27.0 - 31.0) MCHC, BLOOD, 07/16/23 32.4 g/dL (32.0 - 36.0) RDW, BLOOD, 07/16/23 14.2 % (11.0 - 16.0) PLT, BLOOD, 07/16/23 254 K/cmm (150 - 450) MPV, BLOOD, 07/16/23 11.0 fL (9.0 - 13.1) NRBC, BLOOD, 07/16/23 0.0 % (0.0 - 0.0) PANEL 1 Danyell. date GLUCOSE BUN CREAT SODIUM K CHLOR CO2 07/16/23 08:59 179 H 19 1.44 H 138 4.7 102 26 PANEL 2 Danyell. date TOT PRO ALBUMIN SGOT SGPT Z ALK PHZ DIRECTZ TOTAL 07/16/23 08:59 7.1 4.3 18 22 72 1.1 AMYLASE:____ LIPASE:____ PT:12.7 seconds (10/05/2022 12:35) PTT:____ Assessment/Plan: Adelso Mishra is a 78 yo RHD M with PMH significant for DM on metformin, HTN, OA, JAYLA, who presents in consultation for evaluation of right long finger mucous cyst with associated nail deformity. He is an appropriate candidate for excision. - Scheduled excision of right long finger mucous cyst on 01/31/24 - Discussed the risks, benefits, and alternatives of surgical intervention. We discussed the operative incisions, postoperative care and restrictions. We also discussed that the although we attempt to excise the entire capsule, there is a risk of cyst recurrence. - RTC in one month for preop appointment /peyton/ LUCIA YUNG RESIDENT PHYSICIAN Signed: 12/13/2023 09:01 /peyton/ PEOLN CHEUNG staff physician Cosigned: 01/24/2024 13:36 12/13/2023 ADDENDUM STATUS: COMPLETED Spoke to prior to leaving appointment to schedule per 12/13/23 RTC. Coordinated appointment for after veterans other scheduled appointment on 01/21 with Dermatology. Scheduled with veterans preferred appointment time, appointment details below. Reminder letter mailed with pending appointment list. DEANNE YEE PAAbdulkadir Jan 22, 2024@13:00 FUTURE/SCHEDULED /peyton/ MAXINE PAULA Signed: 12/13/2023 10:01 01/24/2024 ADDENDUM STATUS: COMPLETED 78 yo RHD M with PMH significant for DM on metformin, HTN, OA, JAYLA, who presents in consultation for evaluation of right long finger mucous cyst.I have seen and examined the patient with Dr. Yung. I agree with her history and physical exam. I reviewed and discussed the resident's note and agree with the documented findings and plan of care. /peyton/ PELON CHEUNG staff physician Signed: 01/24/2024 13:36 LUCIA YUNG-[facility] Dec 13, 2023 08:20 AM SURGERY NURSING NO TE: LOCAL TITLE: SURGERY CLINIC INTAKE NOTE STANDARD TITLE: SURGERY NURSING NOTE DATE OF NOTE: DEC 13, 2023@08:20 ENTRY DATE: DEC 13, 2023@08:21:03 AUTHOR: ALEXANDREA ROJOIGNER: URGENCY: STATUS: COMPLETED The patient was given [...] of active outpatient prescriptions dispensed from this [place] (local) and dispensed from another [place] or [facility] facility (remote) as well as inpatient orders (local pending and active), local clinic medications, locally documented non-VA medications, and local prescriptions that have or been discontinued in the past 90 days. Non-VA Meds Last Documented On: Data not found NOTE The display of VA prescriptions dispensed from another [place] or [facility] facility (remote) is limited to active outpatient prescription entries matched to National Drug File at the originating site and may not include some items such as investigational drugs, compounds, etc. NOT INCLUDED IN THIS LIST: Medications self-entered by the patient into personal health records (i.e. [employer]) are NOT included in this list. Non-VA medications documented outside this [place], remote inpatient orders (regardless of status) and remote clinic medications are NOT included in this list. The patient and provider must always discuss medications the patient is taking, regardless of where the medication was dispensed or obtained. OUTPT CEFUROXIME AXETIL 500MG TAB (Status = ) TAKE ONE TABLET BY MOUTH TWICE A DAY FOR EAR OR THROAT INFECTION Rx# [id number] Last Released: 10/31/23 Qty/Days Supply: 20 Rx Expiration Date: 11/30/23 Refills Remainin Indication: FOR EAR OR THROAT INFECTION OUTPT CHOLECALCIF 25MCG (D3-1,000UNIT) TAB (Status = Active) TAKE FOUR TABLETS BY MOUTH DAILY FOR VITAMIN D SUPPLEMENT Rx# [id number] Last Released: 11/30/23 Qty/Days Supply: 400/90 Rx Expiration Date: 01/11/24 Refills Remainin OUTPT CLINDAMYCIN PHOSPHATE 1% TOP GEL (Status = Active) APPLY SMALL AMOUNT TO AFFECTED AREA TWICE A DAY FOR INFECTION Rx# [id number] Last Released: 04/24/23 Qty/Days Supply: 60/30 Rx Expiration Date: 03/15/24 Refills Remainin Indication: FOR INFECTION OUTPT CLOTRIMAZOLE 1% TOP SOLN (Status = Active) APPLY SMALL AMOUNT TO AFFECTED AREA TWICE A DAY FOR FUNGAL INFECTION Rx# [id number] Last Released: 12/03/23 Qty/Days Supply: Rx Expiration Date: 07/13/24 Refills Remainin Indication: FOR FUNGAL INFECTION OUTPT CYANOCOBALAMIN 1000MCG TAB (Status = Active) TAKE ONE TABLET BY MOUTH DAILY FOR VITAMIN B12 SUPPLEMENT Rx# [id number] Last Released: 12/03/23 Qty/Days Supply: 90/ Rx Expiration Date: 07/16/24 Refills Remainin Indication: FOR VITAMIN B12 SUPPLEMENT OUTPT DICLOFENAC NA 1% TOP GEL (Status = Active) APPLY SMALL AMOUNT TO AFFECTED AREA EVERY 6 HOURS NEEDED FOR SHOULDER PAIN Rx# [id number] Last Released: 11/30/23 Qty/Days Supply: 300/90 Rx Expiration Date: 01/11/24 Refills Remainin OUTPT DOXYCYCLINE HYCLATE 100MG TAB (Status = ) TAKE ONE TABLET BY MOUTH TWICE A DAY FOR SKIN OR EYE CONDITION Rx# [id number] Last Released: 10/27/23 Qty/Days Supply: 27/10 Rx Expiration Date: 11/26/23 Refills Remainin Indication: FOR SKIN OR EYE CONDITION OUTPT FLUTICASONE PROP 50MCG 120D NASAL INHL (Status = Active) USE 2 SPRAYS IN EACH NOSTRIL DAILY FOR NASAL ALLERGY Rx# [id number] Last Released: 11/30/23 Qty/Days Supply: Rx Expiration Date: 01/11/24 Refills Remainin OUTPT GABAPENTIN 300MG CAP (Status = Discontinued) TAKE ONE CAPSULE BY MOUTH EVERY MORNING AND TAKE ONE CAPSULE AT NOON AND TAKE TWO CAPSULES EVERY EVENING FOR PAIN Rx# [id number] Last Released: 09/04/23 Qty/Days Supply: 120/30 Rx Expiration Date: 06/26/24 Refills Remainin OUTPT GABAPENTIN 300MG CAP (Status = Active) TAKE ONE CAPSULE BY MOUTH EVERY MORNING AND TAKE ONE CAPSULE AT NOON AND TAKE TWO CAPSULES EVERY EVENING FOR PAIN Rx# [id number] Last Released: 12/04/23 Qty/Days Supply: 120/30 Rx Expiration Date: 10/23/24 Refills Remainin Indication: FOR NERVE PAIN OUTPT GAVISCON ES CHEW TAB (Status = Active) CHEW 1 TABLET BY MOUTH AFTER MEALS NEEDED FOR INDIGESTION/REFLUX Rx# [id number] Last Released: 12/04/23 Qty/Days Supply: 100/30 Rx Expiration Date: 10/26/24 Refills Remainin Indication: FOR STOMACH OUTPT HC 1%/NEOMYCIN 3.5MG/POLYMYXIN OTIC SOLN (Status = ) INSTILL 4 DROPS IN LEFT EAR THREE TIMES A DAY FOR INFECTION Rx# [id number] Last Released: 10/31/23 Qty/Days Supply: 01/20 Rx Expiration Date: 11/30/23 Refills Remainin Indication: FOR INFECTION OUTPT HCTZ 12.5MG/LOSARTAN 100MG TAB (Status = Active) TAKE 1 TABLET BY MOUTH DAILY FOR BLOOD PRESSURE/HEART Rx# [id number] Last Released: 12/01/23 Qty/Days Supply: 90 Rx Expiration Date: 07/16/24 Refills Remainin Indication: FOR BLOOD PRESSURE/HEART OUTPT HYDROPHILIC (EQV EUCERIN) TOP CREAM (Status = Active) APPLY SMALL AMOUNT TO AFFECTED AREA TWICE A DAY NEEDED FOR DRY SKIN Rx# [id number] Last Released: 04/23/23 Qty/Days Supply: 454/30 Rx Expiration Date: 01/11/24 Refills Remainin OUTPT LIDOCAINE 5% 5IN X 6IN PATCH (Status = Active) APPLY 2 PATCHES TO SKIN DAILY FOR PAIN -LEAVE ON 12 HOURS, THEN REMOVE FOR 12 HOURS Rx# [id number] Last Released: 11/30/23 Qty/Days Supply: 60/30 Rx Expiration Date: 01/11/24 Refills Remainin Indication: FOR PAIN OUTPT LORATADINE 10MG TAB (Status = Active) TAKE ONE TABLET BY MOUTH DAILY FOR ALLERGIES Rx# [id number] Last Released: 11/30/23 Qty/Days Supply: 90/90 Rx Expiration Date: 07/16/24 Refills Remainin OUTPT METFORMIN HCL 1000MG TAB (Status = Active) TAKE ONE TABLET BY MOUTH TWICE A DAY FOR DIABETES Rx# [id number] Last Released: 11/30/23 Qty/Days Supply: 180/90 Rx Expiration Date: 01/11/24 Refills Remainin OUTPT MIRTAZAPINE 15MG TAB (Status = Discontinued) TAKE ONE-HALF TABLET BY MOUTH AT BEDTIME FOR SLEEP Rx# [id number] Last Released: 08/10/23 Qty/Days Supply: 45/90 Rx Expiration Date: 09/26/23 Refills Remainin Indication: FOR SLEEP OUTPT MIRTAZAPINE 15MG TAB (Status = Active) TAKE ONE-HALF TABLET BY MOUTH AT BEDTIME FOR SLEEP Rx# [id number] Last Released: 10/26/23 Qty/Days Supply: 4590 Rx Expiration Date: 12/26/23 Refills Remainin Indication: FOR SLEEP OUTPT PANTOPRAZOLE NA 40MG EC TAB (Status = Active) TAKE ONE TABLET BY MOUTH TWICE A DAY 30 MINUTES BEFORE A MEAL FOR STOMACH -TAKE ON AN EMPTY STOMACH. Rx# [id number] Last Released: 11/30/23 Qty/Days Supply: 180/90 Rx Expiration Date: 06/26/24 Refills Remainin Indication: FOR STOMACH OUTPT PIOGLITAZONE HCL 30MG TAB (Status = Active) TAKE ONE TABLET BY MOUTH DAILY FOR DIABETES Rx# [id number] Last Released: 12/01/23 Qty/Days Supply: 90/90 Rx Expiration Date: 01/11/24 Refills Remainin Indication: FOR BLOOD SUGAR OUTPT PRAZOSIN HCL 5MG CAP (Status = Discontinued) TAKE ONE CAPSULE BY MOUTH AT BEDTIME FOR NIGHTMARES Rx# [id number] Last Released: 08/10/23 Qty/Days Supply: 90 Rx Expiration Date: 09/26/23 Refills Remainin Indication: FOR NIGHTMARES OUTPT PRAZOSIN HCL 5MG CAP (Status = Active) TAKE ONE CAPSULE BY MOUTH AT BEDTIME FOR NIGHTMARES Rx# [id number] Last Released: 10/26/23 Qty/Days Supply: 90 Rx Expiration Date: 12/26/23 Refills Remainin Indication: FOR NIGHTMARES OUTPT SERTRALINE HCL 100MG TAB (Status = Discontinued) TAKE ONE AND ONE-HALF TABLETS BY MOUTH EVERY MORNING FOR MOOD Rx# [id number] Last Released: Qty/Days Supply: 13590 Rx Expiration Date: 10/31/23 Refills Remainin Indication: FOR MOOD OUTPT SERTRALINE HCL 100MG TAB (Status = Active) TAKE ONE AND ONE-HALF TABLETS BY MOUTH EVERY MORNING FOR MOOD Rx# [id number] Last Released: 10/11/23 Qty/Days Supply: 13590 Rx Expiration Date: 12/26/23 Refills Remainin Indication: FOR MOOD OUTPT TRIAMCINOLONE ACETONIDE 0.1% CREAM (Status = Discontinued) APPLY SMALL AMOUNT TO AFFECTED AREA TWICE A DAY -APPLY TO RASH ONLY TWICE DAILY UNTIL CLEAR AND THEN NEEDED. NOT FOR USE ON THE FACE, ARMPITS OR GROIN. Rx# [id number] Last Released: 10/31/22 Qty/Days Supply: Rx Expiration Date: 09/27/23 Refills Remainin Indication: FOR SKIN RASH OUTPT TRIAMCINOLONE ACETONIDE 0.1% OINT (Status = Discontinued) APPLY SMALL AMOUNT TO AFFECTED AREA TWICE A DAY FOR SKIN RASH Rx# [id number] Last Released: Qty/Days Supply: Rx Expiration Date: 11/28/24 Refills Remainin Indication: FOR SKIN RASH OUTPT TRIAMCINOLONE ACETONIDE 0.1% OINT (Status = Active) APPLY SMALL AMOUNT TO AFFECTED AREA TWICE A DAY FOR SKIN RASH Rx# [id number] Last Released: 11/29/23 Qty/Days Supply: Rx Expiration Date: 11/29/24 Refills Remainin Indication: FOR SKIN RASH SUPPLIES OUTPT ACCU-CHEK GUIDE (GLUCOSE) TEST STRIP (Status = Active) USE 1 STRIP TO TEST BLOOD SUGAR 3-4 TIMES WEEKLY Rx# [id number] Last Released: 11/30/23 Qty/Days Supply: 50/90 Rx Expiration Date: 01/11/24 Refills Remainin /peyton/ Alexandrea [facility] Ultrasound Specialist Signed: 12/13/2023 08:21 ALEXANDREA [facility]
--- OUTSIDE RECORDS SUMMARY | 2024-07-24 21:27 | XMS_ITS | Encounter Summary ---
Author Name [facility] [place] [facility] [place] Address [address] [place] [address] Care Team Providers Care Associate School Psychologist Name Role Phone LAURA MCKEON Primary Care [...] PART A Oct 14, 2009 PART A [id number] Alex MISHRA PATIENT MEDICARE (WNR) MEDICARE (M) PART B Oct 14, 2009 PART B [id number] [id number] Alex MISHRA PATIENT MEDICARE (WNR) MEDICARE (M) PART B Oct 14, 2009 PART B [id number] [phone] Alex MISHRA PATIENT MEDICARE (WNR) MEDICARE (M) PART A Oct 14, 2009 PART A [id number] Alex MISHRA PATIENT MEDICARE (WNR) MEDICARE (M) PART A Oct 14, 2009 PART A [id number] [id number] Alex MISHRA PATIENT MEDICARE (WNR) MEDICARE (M) PART B Oct 14, 2009 PART B [id number] Alex MISHRA PATIENT Selected Encounter This section includes the information on record at [place] for the Encounter. Date/Time Encounter Type Encounter Description Reason Provider Source Jan 29, 2024 01:00 PM PSYTX W PT 60 [facility]UTES [facility] - IND ICD-10-CM F43.10 Post-traumatic stress disorder, unspecified BENITEZ MARIN IHJennifer Encounter Template Text not used by [place] Assessments - Encounter Diagnoses This section includes the primary and secondary diagnoses documented for the Encounter. Date/Time Primary/Secondary Diagnosis Diagnosis Name Provider Source Jan 29, 2024 02:04 PM PRIMARY Post-traumatic stress disorder, unspecified BENITEZ MARIN [facility] Plan of Treatment: Future Appointments (+ 6 months) and Future Tests (+/- 45 days) The Plan of Treatment section includes future care activities for the [facility] [place] [facility] This section includes future appointments and [...] 14, 2024 08:30 AM AMBULATORY - NONE [facility] Feb 14, 2024 10:00 AM [facility] Feb 27, 2024 02:00 PM AMBULATORY - NONE [facility] Feb 28, 2024 01:30 PM AMBULATORY - SURGERY [place] [facility] Feb 28, 2024 02:30 PM AMBULATORY - REHAB MEDICIN E [facility] Feb 29, 2024 09:20 AM [facility] Mar 04, 2024 09:00 AM [facility] Mar 17, 2024 01:00 PM AMBULATORY - SURGERY [facility] Mar 18, 2024 08:30 AM AMBULATORY - REHAB MEDICIN E [facility] Mar 18, 2024 10:00 AM AMBULATORY - SURGERY [place] [facility] Mar 28, 2024 08:00 AM [facility]ORY - NONE [facility] Apr 01, 2024 10:00 AM [facility] Apr 15, 2024 09:00 AM [facility] Apr 16, 2024 11:35 AM AMBULATORY - MEDICINE [facility] Apr 25, 2024 08:30 AM AMBULATORY - SURGERY [facility] Apr 29, 2024 10:00 AM AMBULATORY - MEDICINE [facility] May 06, 2024 10:00 AM [facility] May 07, 2024 10:00 AM AMBULATORY - MEDICINE [facility] May 15, 2024 10:30 AM AMBULATORY - REHAB MEDICIN E [facility] May 20, 2024 08:00 AM AMBULATORY - NONE [facility] Lab Results: +/- 30 days [...] 14, 2024 10:41 AM [facility] MICROALBUMIN/CREAT RATIO URINE Specimen Type: URINE No comment entered. Ordering Provider: LAURA MCKEON Report Released Date/Time: Feb 14, 2024 09:03 AM Reporting Lab: [address] [address] Performing Lab: [address] [address] CREATININE 133.0 mg/dL MICROALBUMIN QUANT 5.8 mg/L 0.0-30.0 .MICROALBUMIN/CREA RATIO 4.4 ug/mg{creat} Feb 14, 2024 10:41 AM [facility] DRUG SCREEN EXPANDED IN-HOUSE URINE Specimen Type: [...] Feb 14, 2024 09:03 AM Reporting Lab: [address] [address] Performing Lab: [address] [address] TETRAHYDROCANNABINOL SCREEN NEG Cuto ff < 50 [...] < 1 Feb 14, 2024 10:19 AM [facility] LIPID PROFILE PLASMA Specimen Type: PLASM A [...] AM Reporting Lab: [facility] [address] [place] [address] Performing Lab: [address] [address] CHOLESTEROL 161 mg/dL 0-199 TRIGLYCERIDE 84 mg/dL 0-149 HDL CHOLESTEROL 54 mg/dL 40-69 DIRECT LDL CHOL. 95 mg/dL 0-100 Feb 14, 2024 10:19 AM [facility] GLYCOHEMOGLOBIN BLOOD Specimen Type: BLOOD Comment: [place] guidelines for A1c interpretation: Glycemic control targets are based on Shared Decision Making between clinicians and patients. Criteria used to establish an A1c target recommendation can be found at https://www.[place].gov/qualityandpatientsafety/ and include the use of result accuracy [...] 8.73 and 9.27. Ref: https://ngsp.org/CAPdata.asp. The in-house [employer] D-100 analyzer has a historical CV <= 2%. Contact the laboratory for further performance characteristics of this assay. Ordering Provider: LAURA MCKEON Report Released Date/Time: Feb 14, 2024 09:03 AM Reporting Lab: [address] [address] Performing Lab: [address] [address] GLYCOHEMOGLOBIN 6.0 4.4-6.4 Feb 14, 2024 10:19 AM [facility] PANEL 5 PLASMA Specimen Type: PLASM A [...] Feb 14, 2024 09:03 AM Reporting Lab: [address] [address] Performing Lab: [address] [address] CREATININE 1.38 mg/dL H 0.72-1.25 UREA NITROGEN [...] (CKD-EPI) 52 Feb 14, 2024 10:19 AM [facility] TSH PLASMA Specimen Type: PLASM A Comment: [...] Feb 14, 2024 09:03 AM Reporting Lab: [address] [address] Performing Lab: [address] [address] TSH 1.1076 m[IU]/mL 0.3500-4.9400 Feb 14, 2024 10:19 AM [facility] B12 VITAMIN PLASMA Specimen Type: PLASM A [...] Feb 14, 2024 09:03 AM Reporting Lab: [address] [address] Performing Lab: [address] [address] B12 VITAMIN 761 pg/mL 213-816 Feb 14, 2024 10:19 AM [facility] CBC/PLT BLOOD Specimen Type: BLOOD No comment entered. Ordering Provider: LAURA MCKEON Report Released Date/Time: Feb 14, 2024 09:03 AM Reporting Lab: [address] [address] Performing Lab: [address] [address] WBC 6.7 10*3/uL 5.0-10.0 RBC 5.17 10*6/uL 4.6-6.2 HGB 15.8 g/dL 14.0-18.0 HCT 47.1 42.0-52.0 MCV 91.1 fL 80.0-94.0 MCH 30.6 pg 27.0-31.0 MCHC 33.5 g/dL 32.0-36.0 PLT 257 10*3/uL 150-450 MPV 10.5 fL 9.0-13.1 RDW 14.4 11.0-16.0 NRBC 0.0 0.0-0.0 Feb 14, 2024 10:19 AM [facility] 25-OH VITAMIN D SERUM Specime n Type: [...] Feb 14, 2024 09:03 AM Reporting Lab: [address] [address] Performing Lab: [address] [address] 25-OH VITAMIN D 42.5 ng/mL 20.0-50.0 Jan 31, 2024 11:09 AM [facility] GLUCOSE-HAND MONITOR CAPILLARY Specime n Type: CAPILLARY Comment: $ Test performed by: [id number] Meter #: [id number] Ordering Provider: PELON CHEUNG Report Released Date/Time: Feb 04, 2024 07:19 AM Reporting Lab: [address] [address] Performing Lab: [address] [address] GLUCOSE-HAND MONITOR 125 mg/dL H 71-99 Social History: Smoking Status (Most current) and Tobacco Use (All prior to encounter date) This section includes the most current, and the historical, smoking and tobacco- related health factors from the [facility] where the Encounter took place. Current Smoking Status This section includes the most current smoking, or tobacco-related health factor, from the [place] facility where the Encounter took place. Date/Time Current Smoking Status Comment Facil samuel Jan 10, 2023 11:00 AM VA-TOBACCO NEVER USED [facility] Tobacco Use History This section includes a history of the smoking, or tobacco-related health factors, that were collected on or before the date of the Encounter. The data comes from the [place] facility where the Encounter took place. Date/Time Smoking Status/Tobacco Use Comment F acility Dec 09, 2021 08:00 AM VA-TOBACCO NEVER USED [facility] Dec 10, 2020 09:30 AM VA-TOBACCO NEVER USED [facility] May 13, 2019 09:09 AM VA-TOBACCO NEVER USED [facility] Apr 03, 2018 09:45 AM VA-TOBACCO NEVER USED [facility] May 07, 2017 10:31 AM V9 LIFETIME NON-USER OF TOBACCO [facility] Apr 06, 2016 10:18 AM V9 LIFETIME NON-USER OF TOBACCO [facility] Jan 26, 2015 08:52 AM V9 LIFETIME NON-USER OF TOBACCO [facility] August 18, 2013 08:27 AM V9 LIFETIME NON-USER OF TOBACCO [facility] Sep 18, 2012 08:39 AM V9 LIFETIME NON-USER OF TOBACCO [facility] Jan 19, 2012 10:42 AM V9 LIFETIME NON-USER OF TOBACCO [facility] Jan 19, 2012 10:42 AM V9 TOBACCO OFFERED [facility] September 13, 2010 10:28 AM V9 LIFETIME NON-USER OF TOBACCO [facility] September 13, 2010 10:28 AM V9 TOBACCO OFFERED [facility] Sep 21, 2006 12:59 PM V9 LIFETIME NON-USER OF TOBACCO [facility] Jan 29, 2006 07:52 AM HF V9 LIFETIME NON-SMOKER [facility] Dec 30, 2004 08:05 AM HF V9 LIFETIME NON-SMOKER [facility] Dec 23, 2003 02:58 PM HF V9 LIFETIME NON-SMOKER [facility] Pathology Reports: +/- 30 days of the [...] comes from all [place] treatment facilities. Date/Time Pathology Report Provider Source Feb 05, 2024 03:20 PM LR SURGICAL PATHOL OGY REPORT: LOCAL TITLE: LR SURGICAL PATHOLOGY REPORT DATE OF NOTE: FEB 05, 2024@15:20:14 ENTRY DATE: FEB 05, 2024@15:20:14 AUTHOR: ROSS DOBSON EXP COSIGNER: URGENCY: STATUS: COMPLETED $APHDR Reporting Lab: [facility] [IA# [id number]] [address] [place] [address] - - - - - - - [...] submitted in one cassette. CPT CODE - 71021 MICROSCOPIC EXAM/DIAGNOSIS: Right long finger cyst, excision: -Findings consistent with digital mucous cyst. /es/ Ross Dobson MD Pathologist Signed Feb 05, 2024@15:20 Performing Laboratory: Surgical Pathology Report Performed By: [facility] [CLIA# [id number]] [address] [place] [address] $FTR - - - - - - - - - - - - - - - - - - - - - - - - - - - - - - - - - - - - - - - - (End of report) ROSS DOBSON MD [facility] Date Feb 05, 2024 - - - - - - - - - - - - - - - - - - - - - - - - - - - - - - - - - - - - - - - - ERIK MISHRA STANDARD FORM 515 ID:[id number] SEX:M :1945 AGE: 78 LOC:PATH PCP: Laura Mckeon MD /peyton/ Ross Dobson MD Pathologist Signed: 02/05/2024 15:20 ROSS DOBSON-CDD [facility] Jan 31, 2024 12:13 PM LR SURGICAL PATHOL OGY REPORT: LOCAL TITLE: LR SURGICAL PATHOLOGY REPORT DATE OF NOTE: JAN 31, 2024@12:13:13 ENTRY DATE: JAN 31, 2024@12:13:13 AUTHOR: JUDY SIGALA EXP COSIGNER: URGENCY: STATUS: COMPLETED $APHDR Reporting Lab: [facility] [CLIA# [id number]] [address] [place] [address] - - - - - - - [...] MOHS EXCISION BIOPSY ACCESSION NO. 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 CPT CODE: 19138 I ACTED BOTH THE SURGEON AND THE PATHOLOGIST FOR THIS CASE. PLEASE SEE CORRESPONDING MOHS NOTE IN CPRS AND MOHS MAP SCANNED TO [facility]. /peyton/ JUDY SIGALA Chief, Dermatology Signed Jan 31, 2024@12:13 Performing Laboratory: Surgical Pathology Report Performed By: [facility] [CLIA# [id number]] [address] [place] [address] $FTR - - - - - - - - - - - - - - - - - - - - - - - - - - - - - - - - - - - - - - - - (End of report) JUDY SIGALA MD [facility] Date Jan 22, 2024 - - - - - - - - - - - - - - - - - - - - - - - - - - - - - - - - - - - - - - - - ERIK MISHRA STANDARD FORM 515 ID:[id number] SEX:M :1945 AGE: 78 LOC:DERM PCP: Laura Mckeon MD /peyton/ JUDY SIGALA Chief, Dermatology Signed: 01/31/2024 12:13 [facility]ALA[facility] Encounter Notes: All associated encounter notes This section contains the clinical notes associated to the Encounter. Date/Time Encounter Note(s) Provider Source Jan 29, 2024 01:55 PM MENTAL HEALTH NOTE : LOCAL TITLE: BH PSYCHOTHERAPY NOTE STANDARD TITLE: MENTAL HEALTH NOTE DATE OF NOTE: JAN 29, 2024@13:55 ENTRY DATE: JAN 29, 2024@13:56:01 AUTHOR: BENITEZ MARIN COSIGNER: URGENCY: STATUS: COMPLETED Date of Session: JAN 29, 2024 Duration of Session: 55 min Session Number: 1 Diagnosis Addressed During Session: PTSD, chronic Session Format: Face to face Reason for Session: Ongoing monitoring of s/s of PTSD and treatment planning Rationale for Duration of Session: Mental Status: Mr. Mishra's speech was normal in rate, rhythm, and volume. He denied hallucinations, delusions, or any other psychotic thought processes. His thought process was linear and logical. He denied any current suicidal or homicidal ideation, intent, or plans. C-SSRS Screening Drew-Suicide Severity Rating Scale (C-SSRS Screener) 1. Over [...] other questions. Assessment Data: Whole Health Interventions Mindfulness Session Content: Mr. Mishra has been stressed by multiple physical health problems. 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 Has remained sober. Is preparing for the anniversary of his 's . Stable. Therapeutic Intervention: Provided a supportive environment with reflective listening, normalization and validation. Assessed for symptoms and current stressors. Discussed healthy coping skills to manage stress and sleep. Assessed progress toward goals and ongoing therapeutic needs. Assessed for SI/HI. Encouraged [place] to call crisis line if needed. Patient Response to Treatment: Attentive and cooperative Progress Towards Treatment Goal: REmains sober Plan and Scheduling Instructions: Mar 04 2024 @0900 [facility]6 LD Pain management, if needed, is managed by primary care. Reason for Ordering Tests, Consults or Changes in Medications: No new orders or changes indicated at this time /peyton/ Benitez Marin, MAIL INSERTER, PLASTER FOREMAN, ACSW Licensed Clinical Services Rep Signed: 01/29/2024 14:04 BENITEZ MARIN [facility]
--- OUTSIDE RECORDS SUMMARY | 2024-07-24 21:28 | XMS_ITS ---
Author Name [facility] [place] [facility] [place] [facility] [place] Address [address] [place] [id number] Care Team Providers Care Chief Solution Architect Name Role Phone CYNDI STEINBERG Primary Care [...] PART A Oct 14, 2009 PART A [id number] [phone] Alex GALLEGO PATIENT MEDICARE (WNR) MEDICARE (M) PART B Oct 14, 2009 PART B [id number] Alex GALLEGO PATIENT MEDICARE (WNR) MEDICARE (M) PART B Oct 14, 2009 PART B [id number] Alex GALLEGO PATIENT MEDICARE (WNR) MEDICARE (M) PART A Oct 14, 2009 PART A [id number] Alex GALLEGO PATIENT MEDICARE (WNR) MEDICARE (M) PART A Oct 14, 2009 PART A [id number] Alex GALLEGO PATIENT MEDICARE (WNR) MEDICARE (M) PART B Oct 14, 2009 PART B [id number] Alex GALLEGO PATIENT Selected Encounter This section includes the information on record at [place] for the Encounter. Date/Time Encounter Type Encounter Description Reason Pro vider Source Jun 09, 2024 09:23 AM Outpatient Encounter ADMIN PAT ACTIVTIES (MASNONCT) IHE Encounter Template Text not used by [place] Plan of Treatment: Future Appointments (+ 6 months) and Future Tests (+/- 45 days) The Plan of Treatment section includes future care activities for the patient from all [place] treatmentfacilities. This section includes future appointments and future orders which are active, pending or scheduled. Future Appointments This section includes appointments that were scheduled to occur 6 months from the date of the Encounter, up to a maximum of 20 appointments. The data comes from all [place] treatment facilities. Appointment Date/Time Appointment Type Appointme nt Facility Name Jun 10, 2024 08:50 AM [facility] 10, 2024 11:00 AM [facility] - [facility]IATRY [facility] Jun 20, 2024 09:00 AM AM[facility]ATORY - NONE [place] [facility] Jun 24, 2024 08:00 AM [facility]ORY - NONE [place] [facility] Jun 30, 2024 11:00 AM [facility]ORY - NONE [place] [facility] Jun 30, 2024 03:00 PM AMBULATORY - MEDICINE [facility] Jul 01, 2024 09:00 AM AMBULATORY - MEDICINE [facility] Jul 07, 2024 10:00 AM AMBULATORY - PSYCHIATRY [facility] Jul 08, 2024 10:00 AM AMBULATORY - MEDICINE JAYNE NGTON [facility] Jul 10, 2024 08:30 AM AMBULATORY - MEDICINE [facility] Jul 24, 2024 03:00 PM AMBULATORY - PSYCHIATRY [facility] Aug 05, 2024 09:00 AM [facility] Aug 11, 2024 10:00 AM AMBULATORY - PSYCHIATRY [facility] Aug 12, 2024 09:00 AM AMBULATORY - MEDICINE JAYNE SINGH [facility] August 18, 2024 09:00 AM AMBULATORY - SURGERY LARRY HOLLOWAY [facility] September 02, 2024 08:20 AM AMBULATORY - SURGERY LARRY HOLLOWAY [facility] Oct 01, 2024 09:00 AM AMBULATORY - NONE DALE Rios [facility] Oct 30, 2024 09:00 AM AMBULATORY - PSYCHIATRY COREY NICHOLAS [facility] Lab Results: +/- 30 days of the encounter This section includes the Chemistry and Hematology Lab Results on record with [place] for the patient. Radiology Reports and Pathology Reports are provided separately, in subsequent sections. Lab Results This section contains the Chemistry/Hematology Results that were resulted 30 days before or 30 daysafter the date of the Encounter. Date/Time Source Result Type Result - Unit Interpretation Reference Range Specimen Type Comment Jun 30, 2024 03:27 PM [facility] BNP ([place]) PLASMA Specimen Type: PLASMA Comment: BNP results less than or equal to 100 pg/ml are unit support representative of normal values in patients without CHF. BNP results greater than 100 pg/ml are considered abnormal and suggestive of CHF. Higher BNP concentrations in the first 72 hours after Acute Coronary Syndrome are associated with an increased risk of , myocardial infarction and CHF. Ordering Provider: SACHI SAINZ Report Released Date/Time: Jun 30, 2024 03:21 PM Reporting Lab: [address] [address] Performing Lab: [address] [address] BNP ([place]) 22 pg/mL 0-100 Jun 30, 2024 03:27 PM [facility] CBC/PLT BLOOD Specimen Type: BLOOD No comment entered. Ordering Provider: SACHI SAINZ Report Released Date/Time: Jun 30, 2024 03:21 PM Reporting Lab: [address] [address] Performing Lab: [address] [address] WBC 7.2 10*3/uL 5.0-10.0 RBC 4.85 10*6/uL 4.6-6.2 HGB 14.7 g/dL 14.0-18.0 HCT 43.8 42.0-52.0 MCV 90.3 fL 80.0-94.0 MCH 30.3 pg 27.0-31.0 MCHC 33.6 g/dL 32.0-36.0 PLT 235 10*3/uL 150-450 MPV 10.6 fL 9.0-13.1 RDW 14.8 11.0-16.0 NRBC 0.0 0.0-0.0 Jun 30, 2024 03:27 PM [facility] PANEL 1 PLASMA Specimen Type: [...] Jun 30, 2024 03:21 PM Reporting Lab: [address] [address] Performing Lab: [address] [address] CREATININE 1.43 mg/dL H 0.72-1.25 UREA NITROGEN 22 mg/dL 9-25 GLUCOSE 164 mg/dL H 74-100 SODIUM 139 mmol/L 136-145 POTASSIUM 3.7 mmol/L 3.5-5.1 CHLORIDE 102 mmol/L 98-107 CO2 27 mmol/L 22-29 CALCIUM 9.8 mg/dL 8.4-10.2 ANION GAP 10 meq/L 3-19 eGFR (CKD-EPI) 50 May 15, 2024 09:46 AM [facility] MAGNESIUM PLASMA Specimen Type: PLASM A [...] May 07, 2024 10:35 AM Reporting Lab: [address] [address] Performing Lab: [address] [address] MAGNESIUM 1.8 mg/dL 1.6-2.6 May 15, 2024 09:46 AM [facility] ([employer]) PLASMA Specimen Type: PLASMA Comment: BNP results less than or equal to 100 pg/ml are unit support representative of normal values in patients without CHF. BNP results greater than 100 pg/ml are considered abnormal and suggestive of CHF. Higher BNP concentrations in the first 72 hours after Acute Coronary Syndrome are associated with an increased risk of , myocardial infarction and CHF. Ordering Provider: CYNDI STEINBERG Report Released Date/Time: May 07, 2024 10:35 AM Reporting Lab: [address] [address] Performing Lab: [address] [address] BNP ([place]) 29 pg/mL 0-100 May 15, 2024 09:46 AM [facility] PANEL 1 PLASMA Specimen Type: PLASM A [...] May 07, 2024 10:35 AM Reporting Lab: [address] [address] Performing Lab: [address] [address] CREATININE 1.54 mg/dL H 0.72-1.25 UREA NITROGEN [...] the Encounter. The data comes from all [place] treatment facilities. Date/Time Radiology Report Provider Source May 29, 2024 05:[id number] PERFORMED BY OTHER FACILITY: ERIK GALLEGO [facility] [id number] -1945 M Exm Date: MAY 29, 2024@17:13 Req Phys: CYNDI STEINBERG Pat Loc: [facility] PACT LULU 1-2 (Req'g Lo Img Loc: OUTSIDE2 LD CT Service: Unknown (Case [id number] COMPLETE) [id number] CT PERFORMED BY OTHER FACIL(CT Detailed) CPT:18881 Reason for Study: Exam imported from outside Clinical History: Original Data for Imported Study Patient Name: ERIK GALLEGO Date: 1945 Sex: M Study Date: 05/29/24 Study Time: 05:13:55 Study Description: CT CHEST PE/ABD/PEL W Referring Physician: TAMMI GEE Series 1: 2 CT files, description: BENZENE WASHER Series 2: 216 CT files, description: 5.0mm [...] Diagnostic Code: VERIFIED BY: / *ELECTRONICALLY FILED* [facility] May 27, 2024 08:07 AM MYOVIEW(1): ERIK GALLEGO [id number] -1945 M Exm Date: MAY 27, 2024@08:07 Req Phys: CYNDI STEINBERG Loc: [facility] [employer]LECT[employer] ASSEMBLY (Req'g Loc) Img Loc: NUCLEAR MEDICINE Service: [place] [address] (Case [id number] COMPLETE) MYOVIEW(1) (NM Detailed) CPT:A9502 Reason for [...] 27, 2024 Date Verified: MAY 27, 2024 Finance Mgr E-Sig: Report: STUDY: GXT REPORT: Patient exercised [...] Staff: ANIA ANDRADE APRN, Cardiology Verified by fraud investigator for ANIA ANDRADE /ANIA ESPINOZA-D [facility] May 27, 2024 08:07 AM 75308(D) MYOCARDIAL SPECT(MULTIPLE): ERIK GALLEGOKwame [id number] -1945 M Exm Date: MAY 27, 2024@08:07 Req Phys: CYNDI STEINBERG Pat Loc: [facility] [employer] (Req'g Loc) g Loc: NUCLEAR MEDICINE Service: [place] [address] THIS IS AN AMENDED REPORT (Case [id number] COMPLETE) 88226(D) MYOCARDIAL SPECT(MULTIPL(NM Detailed) CPT:17207 Proc Modifiers : GXT Reason for Study: SEE CLINICAL HISTORY Radiopharmaceutical: TC-99M TETROFOSMIN (MYOVIEW)-1, 5.5 mCi Adm'd on MAY 27, 2024@08:00 by SONDRA GOTTLIEB [employer]: TC-99M TETROFOSMIN (MYOVIEW)-2, 16.5 mCi [...] 05, 2024 Date Verified: JUN 05, 2024 Finance Mgr E-Sig: Report: [facility], [place], [place] STUDY: Treadmill Exercise SPECT Tc-99m myoview [...] performed with tomographic and three-dimensional reconstructions with [employer] NM/CT 640 system. The patient performed treadmill [...] data sets in addition to the conventional dtz-etpybgseevm-pqrhfjxex images. Both filtered back projection and iterative [...] ventricular cavity. 4. SPECT images: Attenuation-corrected and npb-ycilciijvgc-wngykwlkn SPECT images were evaluated. SPECT images demonstrate normal myocardial perfusion. There is a medium size, mild intensity defect located in the gsxmx-fs-sweitx inferior myocardium . The defect is fixed [...] BY: Kerri Mena MD, Cardiology Attending /[facility] May 27, 2024 08:07 AM TC-99M FROM NON-HIGHLY ENRICHED URANIUM SOURCE: ERIK GALLEGO [id number] 1945 M Ex Date: MAY 27, 2024@08:07 Req Phys: CYNDI STEINBERG Loc: [facility] ELECTRONIC ASSEMBLY (Req'g Loc) Img Loc: NUCLEAR MEDICINE Service: [place] [address] THIS IS AN AMENDED REPORT (Case [id number] COMPLETE) TC-99M FROM NON-HIGHLY ENRICHED U(NM Detailed) [...] 05, 2024 Date Verified: JUN 05, 2024 Finance Mgr E-Sig: Report: [facility], [place], [place] STUDY: Treadmill Exercise SPECT Tc-99m myoview [...] performed with tomographic and three-dimensional reconstructions with [employer] NM/CT 640 system. The patient performed treadmill [...] data sets in addition to the conventional emn-bgrqrqexhnw-rsqvqhwii images. Both filtered back projection and iterative [...] ventricular cavity. 4. SPECT images: Attenuation-corrected and qxr-fejzrtbhtjr-bixxjwddo SPECT images were evaluated. SPECT images demonstrate normal myocardial perfusion. There is a medium size, mild intensity defect located in the fowwi-ut-yyxnfa inferior myocardium . The defect is fixed [...] Kerri Mena MD, Cardiology Attending /KERRI LONG [facility] May 27, 2024 08:07 AM MYOVIEW(2): ERIK GALLEGO NATHANIEL [id number] -1945 M Ex Date: MAY 27, 2024@08:07 Req Phys: CYNDI STEINBERG Loc: [facility] [employer] [facility] (Req'g Loc) Img Loc: NUCLEAR MEDICINE Service: [place] [address] THIS IS AN AMENDED REPORT (Case [id number] COMPLETE) MYOVIEW(2) (NM Detailed) CPT:A9502 Reason for [...] 05, 2024 Date Verified: JUN 05, 2024 Finance Mgr E-Sig: Report: [facility], [place], [place] STUDY: Treadmill Exercise SPECT Tc-99m myoview [...] performed with tomographic and three-dimensional reconstructions with [employer] NM/CT 640 system. The patient performed treadmill [...] data sets in addition to the conventional rty-ghtgjwltnel-iljdrdnwk images. Both filtered back projection and iterative [...] ventricular cavity. 4. SPECT images: Attenuation-corrected and rsr-dsezbhbwxge-xowglxpjb SPECT images were evaluated. SPECT images demonstrate normal myocardial perfusion. There is a medium size, mild intensity defect located in the qndxb-cp-swinye inferior myocardium . The defect is fixed [...] BY: Kerri Mena MD, Cardiology Attending /[facility] May 27, 2024 08:07 AM CARD. STRESS TEST W/TREADMILL/...: ERIK GALLEGO [id number] -1945 [facility] Date: MAY 27, 2024@08:07 Req Phys: CYNDI STEINBERG Loc: [facility] [employer] (Req'g Loc) Img Loc: NUCLEAR MEDICINE Service: [place] [address] THIS IS AN AMENDED REPORT (Case [id number] COMPLETE) CARD. STRESS TEST W/TREADMILL/...(NM Detailed) CPT:57170 Reason for Study: SEE CLINICAL HISTORY Clinical [...] 05, 2024 Date Verified: JUN 05, 2024 Finance Mgr E-Sig: Report: [facility], [place], [place] STUDY: Treadmill Exercise SPECT Tc-99m myoview [...] performed with tomographic and three-dimensional reconstructions with [employer] NM/CT 640 system. The patient performed treadmill [...] data sets in addition to the conventional cfj-nnzgpenqafh-urrtrsbni images. Both filtered back projection and iterative [...] ventricular cavity. 4. SPECT images: Attenuation-corrected and wyx-bscyuqdyyjr-zusbagdqx SPECT images were evaluated. SPECT images demonstrate normal myocardial perfusion. There is a medium size, mild intensity defect located in the rfvgi-bn-jdflhr inferior myocardium . The defect is fixed [...] Kerri Mena MD, Cardiology Attending /[facility] May 15, 2024 09:57 AM CHEST TWO(2) VIEW PA&LAT: ERIK GALLEGO [id number] -1945 M Ex Date: MAY 15, 2024@09:57 Req Phys: CYNDI STEINBERG Loc: [facility] PACT PHONE LULU (Req'g Img Loc: [facility] RADIOLOGY Service: [place] [address] (Case [id number] COMPLETE)CHEST TWO(2) VIEW PA&LAT (RAD Detailed) CPT:23517 Reason for Study: dyspnea Clinical History: Report Status: Verified Date Reported: MAY 17, 2024 Date Verified: MAY 17, 2024 Finance Mgr E-Sig: Report: CHEST TWO(2) VIEW PA&LAT, 05/15/2024 10:02 AM EST INDICATION: dyspnea COMPARISON: April 16, 2024 Impression: Calcified granuloma right lung apex. No edema or pneumonia. No pleural effusion or pneumothorax. Heart size normal. No acute osseous abnormality. Primary Diagnostic Code: NO ALERT REQUIRED Primary Interpreting Staff: KAILYN STEELE, Staff Physician Verified by fraud investigator for KAILYN STEELE /KAILYN AVILES [facility] Encounter Notes: All associated encounter notes This section contains the clinical notes associated to the Encounter. Date/Time Encounter Note(s) Provider Source Jun 09, 2024 09:23 AM ADMINISTRATIVE NOT E: LOCAL TITLE: CLERICAL/ADMIN NOTE STANDARD TITLE: ADMINISTRATIVE NOTE DATE OF NOTE: JUN 09, 2024@09:23 ENTRY DATE: JUN 09, 2024@09:23:49 AUTHOR: ANDREI DAIGLE EXP COSIGNER: URGENCY: STATUS: COMPLETED Received fax from: [facility] Pages including cover: 8 Placed in [facility]/PROVIDER'S mail box. /[place]/ ANDREI DAIGLE [facility] Signed: 06/09/2024 09:24 ANDREI DAIGLE-D [facility]
--- OUTSIDE RECORDS SUMMARY | 2024-07-24 21:28 | XMS_ITS ---
Author Name [facility] [place] [facility] [place] Address [address] [place] [address] Care Team Providers Care Stone Gluer Name Role Phone CYNDI STEINBERG Primary Care [...] PART A Oct 14, 2009 PART A [id number] Alex GALLEGO PATIENT MEDICARE (WNR) MEDICARE (M) PART B Oct 14, 2009 PART B [id number] Alex GALLEGO PATIENT MEDICARE (WNR) MEDICARE (M) PART A Oct 14, 2009 PART A [id number] Alex GALLEGO PATIENT MEDICARE (WNR) MEDICARE (M) PART B Oct 14, 2009 PART B [id number] [phone] Alex GALLEGO PATIENT MEDICARE (WNR) MEDICARE (M) PART A Oct 14, 2009 PART A [id number] Alex GALLEGO PATIENT MEDICARE (WNR) MEDICARE (M) PART B Oct 14, 2009 PART B [id number] Alex GALLEGO PATIENT Selected Encounter This section includes the information on record at [place] for the Encounter. Date/Time Encounter Type Encounter Description Reason Pro vider Source Apr 15, 2024 09:57 AM Outpatient Encounter ADMIN PAT ACTIVTIES (MASNONCT) IHE Encounter Template Text not used by [place] Plan of Treatment: Future Appointments (+ 6 months) and Future Tests (+/- 45 days) The Plan of Treatment section includes future care activities for the patient from all [place] treatmentfacilities. This section includes future appointments and future orders which are active, pending or scheduled. Future Appointments This section includes appointments that were scheduled to occur 6 months from the date of the Encounter, up to a maximum of 20 appointments. The data comes from all [place] treatment facilities. Appointment Date/Time Appointment Type Appointme nt Facility Name Apr 16, 2024 11:35 AM [facility] Apr 25, 2024 08:30 AM [facility] Apr 29, 2024 10:00 AM AMBULATORY - MEDICINE [facility] May 06, 2024 10:00 AM AMBULATORY - PSYCHIATRY [facility] May 07, 2024 10:00 AM AMBULATORY - MEDICINE JAYNE [facility] May 15, 2024 10:30 AM AMBULATORY - REHAB MEDICIN [facility] May 20, 2024 08:00 AM [facility] May 20, 2024 10:00 AM [facility] 27, 2024 08:00 AM [facility] [place] Jun 06, 2024 08:00 AM [facility] Jun 10, 2024 08:50 AM [facility] Jun 10, 2024 11:00 AM [facility] Jun 20, 2024 09:00 [facility] Jun 24, 2024 08:00 [facility] Jun 30, 2024 11:00 AM [facility] Jun 30, 2024 03:00 PM AMBULATORY - MEDICINE [facility] Jul 01, 2024 09:00 AM AMBULATORY - MEDICINE [facility] Jul 07, 2024 10:00 AM AMBULATORY - PSYCHIATRY [facility] Jul 08, 2024 10:00 AM AMBULATORY - MEDICINE [facility] Jul 10, 2024 08:30 AM AMBULATORY - MEDICINE [facility] Lab Results: +/- 30 days of [...] Type Comment May 15, 2024 09:46 AM [facility] WN MAGNESIUM PLASMA Specimen Type: [...] May 07, 2024 10:35 AM Reporting Lab: [address] [address] Performing Lab: [address] [address] MAGNESIUM 1.8 mg/dL 1.6-2.6 May 15, 2024 09:46 AM [facility] B[facility] ([employer] PLASMA Specimen Type: PLASMA Comment: BNP results less than or equal to 100 pg/ml are ocean import representative of normal values in patients without CHF. BNP results greater than 100 pg/ml are considered abnormal and suggestive of CHF. Higher BNP concentrations in the first 72 hours after Acute Coronary Syndrome are associated with an increased risk of , myocardial infarction and CHF. Ordering Provider: CYNDI STEINBERG Report Released Date/Time: May 07, 2024 10:35 AM Reporting Lab: [address] [address] Performing Lab: [address] [address] BNP (STODDARD) 29 pg/mL 0-100 May 15, 2024 09:46 AM [facility] PANEL 1 PLASMA Specimen Type: PLASM A [...] May 07, 2024 10:35 AM Reporting Lab: [address] [address] Performing Lab: [address] [address] CREATININE 1.54 mg/dL H 0.72-1.25 UREA NITROGEN 20 mg/dL 9-25 GLUCOSE 151 mg/dL H 74-100 SODIUM 140 mmol/L 136-145 POTASSIUM 4.0 mmol/L 3.5-5.1 CHLORIDE 104 mmol/L 98-107 CO2 28 mmol/L 22-29 CALCIUM 9.7 mg/dL 8.4-10.2 ANION GAP 8 meq/L 3-19 eGFR (CKD-EPI) 46 Apr 29, 2024 10:55 AM [facility] URINALYSIS URINE Specimen Type : URINE Comment: Microscopic not indicated Ordering Provider: ERIK KIM Report Released Date/Time: Apr 16, 2024 01:19 PM Reporting Lab: [address] [address] Performing Lab: [address] [address] URINE COLOR Colorless Colorless-Yellow APPEARANCE Clear Clear UROBILINOGEN Normal mg/dL Normal URINE BLOOD Negative Negative URINE BILIRUBIN Negative Negative URINE KETONES Negative mg/dL Negative URINE PROTEIN Negative mg/dL Negative-Tr john URINE PH 7.0 4.5-8.0 URINE NITRITE Negative Negative URINE LEUKOCYTE EST Negative Negative SPECIFIC GRAVITY 1.005 1.005-1.030 URINE GLUCOSE Negative mg/dL Negative Apr 29, 2024 10:49 AM [facility] LACTIC ACID PLASMA Specimen Type : PLASMA Comment: ~2 hours from now Ordering Provider: ERIK KIM Report Released Date/Time: Apr 16, 2024 01:19 PM Reporting Lab: [address] [address] Performing Lab: [address] [address] LACTIC ACID 1.4 mmol/L 0.5-2.2 Apr 29, 2024 10:49 AM [facility] HIGH SENSITIVITY TROPONIN I PLASMA Specimen [...] Apr 16, 2024 01:19 PM Reporting Lab: [address] [address] Performing Lab: [address] [address] HIGH SENSITIVITY TROPONIN I <4 4-35 Apr 29, 2024 10:49 AM [facility] MAGNESIUM PLASMA Specimen Type: PLASM A [...] Apr 29, 2024 10:33 AM Reporting Lab: [address] [address] Performing Lab: [address] [address] MAGNESIUM 1.7 mg/dL 1.6-2.6 Apr 29, 2024 10:49 AM [facility] PLASMA Specimen Type: PLASM [...] Apr 29, 2024 10:33 AM Reporting Lab: [address] [address] Performing Lab: [address] [address] CREATININE 1.35 mg/dL H 0.72-1.25 UREA NITROGEN 11 mg/dL 9-25 GLUCOSE 114 mg/dL H 74-100 SODIUM 141 mmol/L 136-145 POTASSIUM 4.2 mmol/L 3.5-5.1 CHLORIDE 105 mmol/L 98-107 CO2 29 mmol/L 22-29 CALCIUM 9.7 mg/dL 8.4-10.2 ANION GAP 7 meq/L 3-19 eGFR (CKD-EPI) 53 Apr 16, 2024 01:17 PM [facility] COVID-19 AND FLU/RSV DIAGNOSTIC PANEL NASOPH [...] Sarbecovirus currently unknown to infect humans. The [employer] SARS-CoV-2 test is a rapid, real-time RT-PCR test intended for the qualitative detection of nucleic acid from the SARS-CoV-2 in nasopharyngeal swab specimens collected from individuals suspected of COVID-19 in the acute phase of infection and is only for in vitro use under the Food and Drug Administration's Emergency Use Authorization. [employer] (596) Ordering Provider: ERIK KIM Report Released Date/Time: Apr 16, 2024 01:13 PM Reporting Lab: [place] [phone] Performing Lab: [address] [address] COVID-19 PCR (FLUVID) Negative Negative FLU A PCR (FLUVID) Negative Negative FLU B PCR (FLUVID) Negative Negative RSV PCR (FLUVID) Negative Negative Apr 16, 2024 12:08 PM [facility] LACTIC ACID PLASMA Specimen Type : PLASMA No comment entered. Ordering Provider: ERIK KIM Report Released Date/Time: Apr 16, 2024 01:19 PM Reporting Lab: [address] [address] Performing Lab: [address] [address] LACTIC ACID 2.8 mmol/L H 0.5-2.2 Apr 16, 2024 12:08 PM [facility] PROTHROMBIN TIME PLASMA Specimen Ty pe: PLASMA No comment entered. Ordering Provider: ERIK KIM Report Released Date/Time: Apr 16, 2024 01:19 PM Reporting Lab: [address] [address] Performing Lab: [address] [address] PT PATIENT 13.2 s 11.7-14.4 INTERNATIONAL NORMALIZED RATIO 1.02 0 .87-1.14 Apr 16, 2024 12:08 PM [facility] PHOSPHORUS PLASMA Specimen Type: PLASM A [...] information resource can be reached in [facility] in the Tools menu, under [...] Apr 16, 2024 01:19 PM Reporting Lab: [address] [address] Performing Lab: [address] [address] PHOSPHORUS 2.5 mg/dL 2.3-4.7 Apr 16, 2024 12:08 PM [facility] MAGNESIUM PLASMA Specimen Type: [...] Apr 16, 2024 01:19 PM Reporting Lab: [address] [address] Performing Lab: [address] [place] [address] MAGNESIUM 1.5 mg/dL L 1.6-2.6 Apr 16, 2024 12:08 PM [facility] CK TOTAL PLASMA Specimen Type: PLASM [...] information resource can be reached in [facility] in the Tools menu, under [...] Apr 16, 2024 01:19 PM Reporting Lab: [address] [address] Performing Lab: [address] [address] CK TOTAL 64 U/L 30-200 Apr 16, 2024 12:08 PM [facility] HIGH SENSITIVITY TROPONIN I PLASMA Specimen [...] I information resource can be reached in [facility] in the Tools menu, under the [...] Apr 16, 2024 01:19 PM Reporting Lab: [address] [address] Performing Lab: [place] [phone] HIGH SENSITIVITY TROPONIN I <4 4-35 Apr 16, 2024 12:08 PM [facility] BNP (STODDARD) PLASMA Specimen Type : PLASMA Comment: BNP results less than or equal to 100 pg/ml are ocean import representative of normal values in patients without CHF. BNP results greater than 100 pg/ml are considered abnormal and suggestive of CHF. Higher BNP concentrations in the first 72 hours after Acute Coronary Syndrome are associated with an increased risk of , myocardial infarction and CHF. Ordering Provider: ERIK KIM Report Released Date/Time: Apr 16, 2024 01:38 PM Reporting Lab: [address] [address] Performing Lab: [address] [address] BNP (STODDARD) <10 pg/mL 0-100 Apr 16, 2024 12:08 PM [facility] AUTOMATED DIFF BLOOD Specimen Type : BLOOD Comment: ~STAT Ordering Provider: ERIK KIM Report Released Date/Time: Apr 16, 2024 01:19 PM Reporting Lab: [address] [address] Performing Lab: [address] [address] A-LYMPH % 14.8 L 24.0-44.0 A-MONO % 4.7 0.1-6.0 A-GRAN % 79.5 H 42.0-75.0 A-LYMPH # 0.94 10*3/uL L 1.20-3.40 A-MONO # 0.30 10*3/uL 0.00-0.60 A-GRAN # 5.07 10*3/uL 1.40-6.50 A-BASO % 0.2 0.0-3.0 A-BASO # 0.01 10*3/uL 0.00-0.20 A-EOS % 0.3 0.0-10.0 A-EOS # 0.02 10*3/uL 0.00-0.70 A-IG % 0.5 0.0-0.5 A-IG # 0.03 10*3/uL 0.00-0.06 Apr 16, 2024 12:08 PM [facility] CBC/PLT BLOOD Specimen Type: BLOOD Comment: ~STAT Ordering Provider: ERIK KIM Report Released Date/Time: Apr 16, 2024 01:19 PM Reporting Lab: [address] [address] Performing Lab: [address] [address] WBC 6.4 10*3/uL 5.0-10.0 RBC 5.02 10*6/uL 4.6-6.2 HGB 15.0 g/dL 14.0-18.0 HCT 44.3 42.0-52.0 MCV 88.2 fL 80.0-94.0 MCH 29.9 pg 27.0-31.0 MCHC 33.9 g/dL 32.0-36.0 PLT 208 10*3/uL 150-450 MPV 11.1 fL 9.0-13.1 RDW 14.1 11.0-16.0 NRBC 0.0 0.0-0.0 Apr 16, 2024 12:08 PM [facility] PANEL 5 PLASMA Specimen Type: PLASM [...] I information resource can be reached in [facility] in the Tools menu, under the [...] Apr 16, 2024 01:19 PM Reporting Lab: [address] [address] Performing Lab: [address] [address] CREATININE 1.48 mg/dL H 0.72-1.25 UREA NITROGEN [...] the Encounter. The data comes from all [place] treatment facilities. Date/Time Radiology Report Provider Source May 15, 2024 09:57 AM CHEST TWO(2) VIEW PA&LAT: ERIK GALLEGO [id number] -1945 M Ex Date: MAY 15, 2024@09:57 Req Phys: CYNDI STEINBERG Loc: [facility] PACT PHONE LULU LenzReq'g Img Loc: [facility] RADIOLOGY Service: Unknown [place] [id number] (Case [id number] COMPLETE)CHEST TWO(2) VIEW PA&LAT (RAD Detailed) CPT:73822 Reason for Study: dyspnea Clinical History: Report Status: Verified Date Reported: MAY 17, 2024 Date Verified: MAY 17, 2024 Master Control Technician E-Sig: Report: CHEST TWO(2) VIEW PA&LAT, 05/15/2024 10:02 AM EST INDICATION: dyspnea COMPARISON: April 16, 2024 Impression: Calcified granuloma right lung apex. No edema or pneumonia. No pleural effusion or pneumothorax. Heart size normal. No acute osseous abnormality. Primary Diagnostic Code: NO ALERT REQUIRED Primary Interpreting Staff: KAILYN STEELE, Staff Physician Verified by open hearth furnace laborer for KAILYN STEELE /KAILYN AVILES [facility] Apr 16, 2024 01:47 PM SHOULDER-LEFT 2 OR MORE VIEWS: ERIK GALLEGO [id number] -1945 M Exm Date: APR 16, 2024@13:47 Req Phys: LUEP MILES Loc: [facility] ORTHO/ATT3/CD (Req'g Loc) Img Loc: [facility] RADIOLOGY Service: [place] [address] (Case [id number] COMPLETE) SHOULDER-LEFT 2 OR MORE VIEWS (RAD Detailed) CPT:60532 Reason for Study: LEFT SHOULDER PAIN Clinical History: Report Status: Verified Date Reported: APR 17, 2024 Date Verified: APR 17, 2024 Master Control Technician E-Sig: Report: SHOULDER-LEFT 2 OR MORE VIEWS, 04/16/2024 3:06 PM EST INDICATION: LEFT SHOULDER PAIN COMPARISON: None Impression: No acute fracture or malalignment. Mild glenohumeral and AC joint degenerative change. Primary Diagnostic Code: NO ALERT REQUIRED Primary Interpreting Staff: ALFONZO STEELE, Staff Physician Verified by open hearth furnace laborer for ALFONZO STEELE /ALFONZO DEGROOT-D [facility] Apr 16, 2024 01:47 PM CHEST SINGLE(1) VIEW: ERIK GALLEGOKwame [id number] -1945 M Exm Date: APR 16, 2024@13:47 Req Phys: ERIK KIM Loc: ED/7A-4PM (Req'g Loc) Img Loc: [facility] RADIOLOG[facility] Service: [place] [address] (Case [id number] COMPLETE) CHEST SINGLE(1) VIEW (RAD Detailed) CPT:20512 Proc Modifiers : PORTABLE EXAM Reason for Study: WEAKNESS, COUGH Clinical History: Report Status: Verified Date Reported: APR 17, 2024 Date Verified: APR 17, 2024 Master Control Technician E-Sig: Report: CHEST SINGLE(1) VIEW, 04/16/2024 3:06 PM EST INDICATION: WEAKNESS, COUGH COMPARISON: February 10, 2023 FINDINGS: Support apparatus: None. Heart/Mediastinum: Normal size and contours. Lungs/Pleura: Patchy basilar opacities. No pleural effusion or pneumothorax. Upper abdomen: Unremarkable. Bones/Soft tissues: No acute abnormality. Impression: Bibasilar atelectasis or infiltration. Primary Diagnostic Code: SIGNIFICANT ABNORMALITY, ATTN NEEDED Primary Interpreting Staff: ALFONZO STEELE, Staff Physician Verified by open hearth furnace laborer for ALFONZO STEELE [facility] Encounter Notes: All associated encounter notes This section contains the clinical notes associated to the Encounter. Date/Time Encounter Note(s) Provider Source Apr 15, 2024 09:57 AM ADMINISTRATIVE NOT E: LOCAL TITLE: CLERICAL/ADMIN NOTE STANDARD TITLE: ADMINISTRATIVE NOTE DATE OF NOTE: APR 15, 2024@09:57 ENTRY DATE: APR 15, 2024@09:57:32 AUTHOR: STACIE DELGADO EXP COSIGNER: URGENCY: STATUS: COMPLETED scheduled at the motel front desk clerk for f/u--fu approx 3 months please, 1 hr 04/15/24 rtc placed. PID 06/26/24 vet agreeable/scheduled on 06/26/24 @9:30am w/criminal psychologist#3 ltr mailed /es/ STACIE DELGADO Signed: 04/15/2024 09:59 [facility]
--- OUTSIDE RECORDS SUMMARY | 2024-07-24 21:28 | XMS_ITS | Encounter Summary ---
Author Name [facility] [place] [facility] [place] [facility] [facility] [place] Address [address] [place] [address] Care Team Providers Care Cloth Mender Name Role Phone LAURA STEINBERG Primary Care [...] PART A Oct 14, 2009 PART A [id number] Alex GALLEGO PATIENT MEDICARE (WNR) MEDICARE (M) PART B Oct 14, 2009 PART B [id number] Alex GALLEGO PATIENT MEDICARE (WNR) MEDICARE (M) PART A Oct 14, 2009 PART A [id number] Alex GALLEGO PATIENT MEDICARE (WNR) MEDICARE (M) PART B Oct 14, 2009 PART B [id number] Alex GALLEGO PATIENT MEDICARE (WNR) MEDICARE (M) PART B Oct 14, 2009 PART B [id number] Alex GALLEGO PATIENT MEDICARE (WNR) MEDICARE (M) PART A Oct 14, 2009 PART A [id number] Alex GALLEGO PATIENT Selected Encounter This section includes the information on record at [place] for the Encounter. Date/Time Encounter Type Encounter Description Reason Provider Source May 29, 2024 01:43 PM PH1 ASSMT&MGMT NQHP 11-20 TELEPHONE PRIMARY CARE ICD-10-CM Z71.9 Counseling, unspecified Zia VELEZ IHJennifer Encounter Template Text not used by [place] Assessments - Encounter Diagnoses This section includes the primary and secondary diagnoses documented for the Encounter. Date/Time Primary/Secondary Diagnosis Diagnosis Name Provider Source May 29, 2024 01:43 PM PRIMARY Counseling, unspecified Zia VELEZ [facility] Plan of Treatment: Future Appointments (+ 6 months) and Future Tests (+/- 45 days) The Plan of Treatment section includes future care activities for the patient from all [place] treatmentfacilities. This section includes future appointments and future orders which are active, pending or scheduled. Future Appointments This section includes appointments that were scheduled to occur 6 months from the date of the Encounter, up to a maximum of 20 appointments. The data comes from all [place] treatment facilities. Appointment Date/Time Appointment Type Appointme nt Facility Name Jun 06, 2024 08:00 AM AMBULATORY - SURGERY [facility] Jun 10, 2024 08:50 AM AMBULATORY - MEDICINE JAYNE [facility] Jun 10, 2024 11:00 AM AMBULATORY - PSYCHIATRY [facility] Jun 20, 2024 09:00 AM AMBULATORY - NONE [place] [facility] Jun 24, 2024 08:00 AM AMBULATORY - NONE [place] [facility] Jun 30, 2024 11:00 AM AMBULATORY - NONE [place] [facility] Jun 30, 2024 03:00 PM AMBULATORY - MEDICINE JAYNE NGTON-D [facility] Jul 01, 2024 09:00 AM AMBULATORY - MEDICINE JAYNE NGTON-D [facility] Jul 07, 2024 10:00 AM AMBULATORY - PSYCHIATRY [facility] Jul 08, 2024 10:00 AM AMBULATORY - MEDICINE JAYNEAde SINGH [facility] Jul 10, 2024 08:30 AM AMBULATORY - MEDICINE JAYNEAde SINGH-CDD [facility] Jul 24, 2024 03:00 PM AMBULATORY - PSYCHIATRY LE CRISTOPHER [facility] Aug 05, 2024 09:00 AM AMBULATORY - MEDICINE JAYNE SAMANTHA [facility] Aug 11, 2024 10:00 AM AMBULATORY - PSYCHIATRY LE CRISTOPHER [facility] Aug 12, 2024 09:00 AM AMBULATORY - MEDICINE JAYNE SINGH [facility] August 18, 2024 09:00 AM AMBULATORY - SURGERY LARRY HOLLOWAY [facility] September 02, 2024 08:20 AM AMBULATORY - SURGERY DEANNEIN JEWEL [facility] Oct 01, 2024 09:00 AM AMBULATORY - NONE [place] [facility] Oct 30, 2024 09:00 AM AMBULATORY - PSYCHIATRY COREY NICHOLAS [facility] Lab Results: +/- 30 days [...] Type Comment May 15, 2024 09:46 AM [facility] WN MAGNESIUM PLASMA Specimen Type: PLASMA [...] May 07, 2024 10:35 AM Reporting Lab: [address] [address] Performing Lab: [address] [address] MAGNESIUM 1.8 mg/dL 1.6-2.6 May 15, 2024 09:46 AM [facility] BNP (Netchemia) PLASMA Specimen Type: PLASMA Comment: BNP results less than or equal to 100 pg/ml are customer support representative of normal values in patients without CHF. BNP results greater than 100 pg/ml are considered abnormal and suggestive of CHF. Higher BNP concentrations in the first 72 hours after Acute Coronary Syndrome are associated with an increased risk of , myocardial infarction and CHF. Ordering Provider: LAURA STEINBERG Report Released Date/Time: May 07, 2024 10:35 AM Reporting Lab: [address] [address] Performing Lab: [address] [address] BNP (STODDARD) 29 pg/mL 0-100 May 15, 2024 09:46 AM [facility] PANEL 1 PLASMA Specimen Type: PLASM [...] May 07, 2024 10:35 AM Reporting Lab: [address] [address] Performing Lab: [address] [address] CREATININE 1.54 mg/dL H 0.72-1.25 UREA NITROGEN [...] and tobacco- related health factors from the [place] facility where the Encounter took place. Current Smoking Status This section includes the most current smoking, or tobacco-related health factor, from the [place] facility where the Encounter took place. Date/Time Current Smoking Status Comment Edis baker May 07, 2024 10:00 AM VA-TOBACCO NEVER U SED CIGARETTES [facility] Tobacco Use History This section includes a history of the smoking, or tobacco-related health factors, that were collected on or before the date of the Encounter. The data comes from the [place] facility where the Encounter took place. Date/Time Smoking Status/Tobacco Use Comment Ramu harrington May 07, 2024 10:00 AM VA-TOBACCO NEVER U SED OTHER TYPE [facility] Feb 14, 2024 08:30 AM VA-TOBACCO FORMER USER [facility] Feb 14, 2024 08:30 AM VA-TOBACCO QUIT 15 YRS OR MORE [facility] Jan 10, 2023 11:00 AM VA-TOBACCO NEVER USED [facility] Dec 09, 2021 08:00 AM VA-TOBACCO NEVER USED [facility] Dec 10, 2020 09:30 AM VA-TOBACCO NEVER USED [facility] May 13, 2019 09:09 AM VA-TOBACCO NEVER USED [facility] Apr 03, 2018 09:45 AM VA-TOBACCO NEVER USED [facility] May 07, 2017 10:31 AM V9 LIFETIME NON-USER OF TOBACCO [facility] Apr 06, 2016 10:18 AM V9 LIFETIME NON-USER OF TOBACCO [facility] Jan 26, 2015 08:52 AM V9 LIFETIME NON-USER OF TOBACCO [facility] August 18, 2013 08:27 AM V9 LIFETIME NON-USER OF TOBACCO [facility] Sep 18, 2012 08:39 AM V9 LIFETIME NON-USER OF TOBACCO [facility] Jan 19, 2012 10:42 AM V9 LIFETIME NON-USER OF TOBACCO [facility] Jan 19, 2012 10:42 AM V9 TOBACCO OFFERED [facility] September 13, 2010 10:28 AM V9 LIFETIME NON-USER OF TOBACCO [facility] September 13, 2010 10:28 AM V9 TOBACCO OFFERED [facility] Sep 21, 2006 12:59 PM V9 LIFETIME NON-USER OF TOBACCO [facility] Jan 29, 2006 07:52 AM HF V9 LIFETIME NON-SMOKER [facility] Dec 30, 2004 08:05 AM HF V9 LIFETIME NON-SMOKER [facility] Dec 23, 2003 02:58 PM HF V9 LIFETIME NON-SMOKER [facility] Radiology Reports: +/- 30 days of [...] all [facility] facilities. Date/Time Radiology Report Provider Source May 29, 2024 05:[id number] PERFORMED BY OTHER FACILITY: ERIK GALLEGO [facility] [id number] -1945 M Exm Date: MAY 29, 2024@17:13 Req Phys: LAURA STEINBERG Pat Loc: DEANNE PACT LULU 1-2 (Req'g Lo Img Loc: OUTSIDE2 LD CT Service: Unknown (Case [id number] COMPLETE) [id number] CT PERFORMED BY OTHER FACIL(CT Detailed) CPT:51735 Reason for Study: Exam imported from outside Clinical History: Original Data for Imported Study Patient Name: ERIK GALLEGO Date: 1945 Sex: M Study Date: 05/29/24 Study Time: 05:13:55 Study Description: CT CHEST PE/ABD/PEL W Referring Physician: TAMMI GEE Series 1: 2 CT files, description: BIOMEDICAL SPECIALIST Series 2: 216 CT files, description: 5.0mm [...] Diagnostic Code: VERIFIED BY: / *ELECTRONICALLY FILED* [facility] May 27, 2024 08:07 AM MYOVIEW(1): ERIK GALLEGO [id number] -1945 M Exm Date: MAY 27, 2024@08:07 Req Phys: LAURA STEINBERG Pat Loc: DEANNE POD FILM VAULT SUPERVISOR (Req'g Loc) Img Loc: NUCLEAR MEDICINE Service: [place] [address] (Case [id number] COMPLETE) MYOVIEW(1) (NM Detailed) CPT:A9502 Reason for [...] 27, 2024 Date Verified: MAY 27, 2024 Special Services Agent E-Sig: Report: STUDY: GXT REPORT: Patient exercised [...] Staff: ANIA ANDRADE APRN, Cardiology Verified by clip on sunglasses assembler for ANIA ANDRADE /ANIA ESPINOZA-CDD [facility] May 27, 2024 08:07 AM 87214(D) MYOCARDIAL SPECT(MULTIPLE): ERIK GALLEGO [id number] -1945 M Exm Date: MAY 27, 2024@08:07 Req Phys: LAURA STEINBERG Pat Loc: DEANNE POD FILM VAULT SUPERVISOR (Req'g Loc) Img Loc: NUCLEAR MEDICINE Service: [place] [address] THIS IS AN AMENDED REPORT (Case [id number] COMPLETE) 28672(D) MYOCARDIAL SPECT(MULTIPL(NM Detailed) CPT:14966 Proc Modifiers : GXT Reason for Study: [...] 05, 2024 Date Verified: JUN 05, 2024 Special Services Agent E-Sig: Report: [facility], [place], [place] STUDY: Treadmill Exercise SPECT Tc-99m myoview [...] performed with tomographic and three-dimensional reconstructions with [employer] NM/CT 640 system. The patient performed treadmill [...] data sets in addition to the conventional bns-qbshkwyizep-vomnzulwg images. Both filtered back projection and iterative [...] ventricular cavity. 4. SPECT images: Attenuation-corrected and hfy-zkakjpqxvzr-jnhtyerpv SPECT images were evaluated. SPECT images demonstrate normal myocardial perfusion. There is a medium size, mild intensity defect located in the gwaue-jd-eruwbj inferior myocardium . The defect is fixed [...] Kerri Mena MD, Cardiology Attending /KERRI LONG-LOWELL [facility] May 27, 2024 08:07 AM TC-99M FROM NON-HIGHLY ENRICHED URANIUM SOURCE: ERIK GALLEGO [id number] -1945 M Exm Date: MAY 27, 2024@08:07 Req Phys: LAURA STEINBERG Loc: DEANNE POD FILM VAULT SUPERVISOR (Req'g Loc) Img Loc: NUCLEAR MEDICINE Service: [place] [address] THIS IS AN AMENDED REPORT (Case [id number] COMPLETE) TC-99M FROM NON-HIGHLY ENRICHED U(NM Detailed) [...] 05, 2024 Date Verified: JUN 05, 2024 Special Services Agent E-Sig: Report: [facility], [place], [place] STUDY: Treadmill Exercise SPECT Tc-99m myoview [...] performed with tomographic and three-dimensional reconstructions with [employer]/CT 640 system. The patient performed treadmill exercise [...] data sets in addition to the conventional wrz-iqlrbxkcfyt-cgqussvqi images. Both filtered back projection and iterative [...] ventricular cavity. 4. SPECT images: Attenuation-corrected and nkw-zjezjddtagq-brpnqlcad SPECT images were evaluated. SPECT images demonstrate normal myocardial perfusion. There is a medium size, mild intensity defect located in the ozeiz-vz-wkxeux inferior myocardium . The defect is fixed [...] BY: Kerri Mena MD, Cardiology Attending /KERRI LONG-[facility] May 27, 2024 08:07 AM MYOVIEW(2): ERIK GALLEGO [id number] -1945 M Exm Date: MAY 27, 2024@08:07 Req Phys: LAURA STEINBERG Loc: DEANNE POD FILM VAULT SUPERVISOR (Req'g Loc) Img Loc: NUCLEAR MEDICINE Service: [place] [address] THIS IS AN AMENDED REPORT (Case [id number] COMPLETE) MYOVIEW(2) (NM Detailed) CPT:A9502 Reason for [...] 05, 2024 Date Verified: JUN 05, 2024 Special Services Agent E-Sig: Report: [facility], [place], [place] STUDY: Treadmill Exercise SPECT Tc-99m myoview [...] performed with tomographic and three-dimensional reconstructions with [employer] NM/CT 640 system. The patient performed treadmill [...] data sets in addition to the conventional sdz-puykoeusxad-kjmuxyeca images. Both filtered back projection and iterative [...] ventricular cavity. 4. SPECT images: Attenuation-corrected and cjo-hbgwdjoetuv-jwtrnxhkh SPECT images were evaluated. SPECT images demonstrate normal myocardial perfusion. There is a medium size, mild intensity defect located in the kmxas-ii-zoymph inferior myocardium . The defect is fixed [...] Kerri Mena MD, Cardiology Attending /KERRI LONG-Joseph [facility] May 27, 2024 08:07 AM CARD. STRESS TEST W/TREADMILL/...: ERIK GALLEGO [id number] -1945 M Exm Date: MAY 27, 2024@08:07 Req Phys: MARYANLAURA K Pat Loc: DEANNE POD FILM VAULT SUPERVISOR (Req'g Loc) Img Loc: NUCLEAR MEDICINE Service: [place] [address] THIS IS AN AMENDED REPORT (Case [id number] COMPLETE) CARD. STRESS TEST W/TREADMILL/...(NM Detailed) CPT:88070 Reason for Study: SEE CLINICAL HISTORY Clinical [...] 05, 2024 Date Verified: JUN 05, 2024 Special Services Agent E-Sig: Report: [facility], [place], [place] STUDY: Treadmill Exercise SPECT Tc-99m myoview [...] performed with tomographic and three-dimensional reconstructions with [employer] NM/CT 640 system. The patient performed treadmill [...] data sets in addition to the conventional rze-xkcabthruaj-sghbragon images. Both filtered back projection and iterative [...] ventricular cavity. 4. SPECT images: Attenuation-corrected and cvj-hsksqhplbgn-vjjnipvpe SPECT images were evaluated. SPECT images demonstrate normal myocardial perfusion. There is a medium size, mild intensity defect located in the jjqia-pp-zbyuza inferior myocardium . The defect is fixed [...] BY: Kerri Mena MD, Cardiology Attending /KERRI LONGJoseph [facility] May 15, 2024 09:57 AM CHEST TWO(2) VIEW PA&LAT: ERIK GALLEGO [id number] -1945 M Exm Date: MAY 15, 2024@09:57 Req Phys: LAURA STEINBERG Pat Loc: DEANNE PACT PHONE LULU (Req'g Img Loc: [facility] RADIOLOGY Service: Unknown [place] [id number] (Case [id number] COMPLETE)CHEST TWO(2) VIEW PA&LAT (RAD Detailed) CPT:19213 Reason for Study: dyspnea Clinical History: Report Status: Verified Date Reported: MAY 17, 2024 Date Verified: MAY 17, 2024 Special Services Agent E-Sig: Report: CHEST TWO(2) VIEW PA&LAT, 05/15/2024 10:02 AM EST INDICATION: dyspnea COMPARISON: April 16, 2024 Impression: Calcified granuloma right lung apex. No edema or pneumonia. No pleural effusion or pneumothorax. Heart size normal. No acute osseous abnormality. Primary Diagnostic Code: NO ALERT REQUIRED Primary Interpreting Staff: KAILYN STEELE, Staff Physician Verified by clip on sunglasses assembler for KAILYN STEELE /KAILYN AVILES [facility] Encounter Notes: All associated encounter notes This section contains the clinical notes associated to the Encounter. Date/Time Encounter Note(s) Provider Source Jun 04, 2024 05:32 PM ADDENDUM: LOCAL TITLE: Addendum STANDARD TITLE: ADDENDUM DATE OF NOTE: JUN 04, 2024@17:32:05 ENTRY DATE: JUN 04, 2024@17:32:06 AUTHOR: LAURA STEINBERG EXP COSIGNER: URGENCY: STATUS: COMPLETED Please get the left and right heart catheterization reports from [facility]. /peyton/ Laura Steinberg MD Primary Care Physician Signed: 06/04/2024 17:32 Receipt Acknowledged By: 06/05/2024 12:14 /peyton/ JOE PÉREZ ADVANCED REGISTRATION SCHEDULING SPECIALIST --- Original Document --- 06/04/24 Pc Chart Review Note: [facility] discharge summary showed admission on May 29 with discharge May 30, 2024. He presented to [facility] due to symptoms consistent with unstable angina. EKG was consistent with a right bundle branch block, sinus tachycardia, right axis deviation and some ST segment depression in the lateral leads. Troponin was negative. Interventional cardiology was consulted and he was transition for a left and right heart cath. Patient underwent a stent to the LAD. Pulmonary hypertension was noted on the right heart cath. /jocy Steinberg MD Primary Care Physician Signed: 06/04/2024 17:31 LAURA STEINBERG [facility] Jun 04, 2024 05:26 PM PRIMARY CARE NOTE: LOCAL TITLE: Pc Chart Review Note STANDARD TITLE: PRIMARY CARE NOTE DATE OF NOTE: JUN 04, 2024@17:26 ENTRY DATE: JUN 04, 2024@17:26:19 AUTHOR: LAURA STEINBERG EXP COSIGNER: URGENCY: STATUS: COMPLETED Pc Chart Review Note Has ADDENDA [facility] discharge summary showed admission on May 29 with discharge May 30, 2024. He presented to [facility] due to symptoms consistent with unstable angina. EKG was consistent with a right bundle branch block, sinus tachycardia, right axis deviation and some ST segment depression in the lateral leads. Troponin was negative. Interventional cardiology was consulted and he was transition for a left and right heart cath. Patient underwent a stent to the LAD. Pulmonary hypertension was noted on the right heart cath. /jocy Steinberg MD Primary Care Physician Signed: 06/04/2024 17:31 06/04/2024 ADDENDUM STATUS: COMPLETED Please get the left and right heart catheterization reports from [facility]. /jocy Steinberg MD Primary Care Physician Signed: 06/04/2024 17:32 Receipt Acknowledged By: * AWAITING SIGNATURE * JOE PÉREZ,LAURA [facility] May 29, 2024 01:43 PM PRIMARY CARE E & M NOTE: LOCAL TITLE: PC CARE MANAGEMENT STANDARD TITLE: PRIMARY CARE E & M NOTE DATE OF NOTE: MAY 29, 2024@13:43 ENTRY DATE: MAY 29, 2024@13:43:22 AUTHOR: MERE VELEZ EXP COSIGNER: URGENCY: STATUS: COMPLETED Contacted Mr. ERIK GALLEGO regarding PCP recommendations: Please tell patient that the nuclear stress test was consistent with poor exercise tolerance but no definite ischemia. Compared to the study performed on July 15, 2021, there were no significant changes. There were no significant coronary calcifications on his CT scan. Please tell patient that his dyspnea can be due to his poor exercise tolerance/deconditioning. Recommend considering joining the [facility] and getting involved in a regular exercise routine such as walking and/or swimming/water aerobics. Impression: 1. This is a probably normal [...] coronary calcifications noted on non-contrast CT scan. __ states understanding. No further questions or concerns at this time. Agreeable to plan of care. [place] identified using two identifiers (name, last four). Spent 5 minutes on the call. /peyton/ MERE VELEZ Registered Nurse Signed: 05/29/2024 13:53 MERE VELEZ [facility]
--- OUTSIDE RECORDS SUMMARY | 2024-07-24 21:28 | XMS_ITS | Encounter Summary ---
Author Name [facility] [place] [facility] [place] [facility] [place] Address [address] [place] [address] Care Team Providers Care Rand Cementer Name Role Phone CYNDI STEINBERG Primary Care [...] PART A Oct 14, 2009 PART A [id number] Alex GALLEGO PATIENT MEDICARE (WNR) MEDICARE (M) PART B Oct 14, 2009 PART B [id number] Alex GALLEGO PATIENT MEDICARE (WNR) MEDICARE (M) PART A Oct 14, 2009 PART A [id number] Alex GALLEGO PATIENT MEDICARE (WNR) MEDICARE (M) PART B Oct 14, 2009 PART B [id number] Alex GALLEGO PATIENT MEDICARE (WNR) MEDICARE (M) PART A Oct 14, 2009 PART A [id number] Alex GALLEGO PATIENT MEDICARE (WNR) MEDICARE (M) PART B Oct 14, 2009 PART B [id number] Alex GALLEGO PATIENT Selected Encounter This section includes the information on record at [place] for the Encounter. Date/Time Encounter Type Encounter Description Reason Provider Source Jun 06, 2024 08:00 AM OFF/OP EST AUGUST X REQ PHY/QHP PODIATRY ICD-10-CM B35.1 Miriam spence CAMILO,[facility] ISTY B IHE Encounter Template Text not used by [place] Assessments - Encounter Diagnoses This section includes the primary and secondary diagnoses documented for the Encounter. Date/Time Primary/Secondary Diagnosis Diagnosis Name Provider Source Jun 06, 2024 08:09 AM PRIMARY Miriam CAMILO,NAKULI STY B [facility] Plan of Treatment: Future Appointments (+ 6 months) and Future Tests (+/- 45 days) The Plan of Treatment section includes future care activities for the patient from all [place] treatmentfacilities. This section includes future appointments and future orders which are active, pending or scheduled. Future Appointments This section includes appointments that were scheduled to occur 6 months from the date of the Encounter, up to a maximum of 20 appointments. The data comes from all [place] treatment facilities. Appointment Date/Time Appointment Type Appointme nt Facility Name Jun 10, 2024 08:50 AM [facility] Jun 10, 2024 11:00 AM AMBULATORY - PSYCHIATRY [facility] Jun 20, 2024 09:00 AM AM[place]ULATORY - NONE [place] [facility] Jun 24, 2024 08:00 AM AM[facility]ULATORY - NONE [place] [facility] Jun 30, 2024 11:00 AM AM[place]ULATORY - NONE [place] [facility] Jun 30, 2024 03:00 PM AMBULATORY - MEDICINE JAYNE NGTON-CDD [facility] Jul 01, 2024 09:00 AM AMBULATORY - MEDICINE JAYNE NGTON-CDD [facility] Jul 07, 2024 10:00 AM [facility] Jul 08, 2024 10:00 AM [facility] Jul 10, 2024 08:30 AM AMBULATORY - MEDICINE JAYNE [facility] Jul 24, 2024 03:00 PM AMBULATORY - PSYCHIATRY [facility] NICHOLAS [facility] Aug 05, 2024 09:00 AM [facility] Aug 11, 2024 10:00 AM AMBULATORY - PSYCHIATRY [facility] Aug 12, 2024 09:00 AM AMBULATORY - MEDICINE JAYNE SINGH [facility] August 18, 2024 09:00 AM [facility] September 02, 2024 08:20 AM AMBULATORY - SURGERY DEANNEIN JEWEL [facility] Oct 01, 2024 09:00 AM AMBULATORY - NONE DEANNEINGLIV Rios [facility] Oct 30, 2024 09:00 AM AMBULATORY - PSYCHIATRY [facility] Lab Results: +/- 30 days of the [...] Type Comment Jun 30, 2024 03:27 PM [facility] BNP (STODDARD) PLASMA Specimen Type: PLASMA Comment: BNP results less than or equal to 100 pg/ml are quality control representative of normal values in patients without CHF. BNP results greater than 100 pg/ml are considered abnormal and suggestive of CHF. Higher BNP concentrations in the first 72 hours after Acute Coronary Syndrome are associated with an increased risk of , myocardial infarction and CHF. Ordering Provider: SACHI SAINZ Report Released Date/Time: Jun 30, 2024 03:21 PM Reporting Lab: [address] [address] Performing Lab: [address] [address] BNP (STODDARD) 22 pg/mL 0-100 Jun 30, 2024 03:27 PM [facility] PANEL 1 PLASMA Specimen Type: [...] Jun 30, 2024 03:21 PM Reporting Lab: [address] [address] Performing Lab: [address] [address] CREATININE 1.43 mg/dL H 0.72-1.25 UREA NITROGEN 22 mg/dL 9-25 GLUCOSE 164 mg/dL H 74-100 SODIUM 139 mmol/L 136-145 POTASSIUM 3.7 mmol/L 3.5-5.1 CHLORIDE 102 mmol/L 98-107 CO2 27 mmol/L 22-29 CALCIUM 9.8 mg/dL 8.4-10.2 ANION GAP 10 meq/L 3-19 eGFR (CKD-EPI) 50 Jun 30, 2024 03:27 PM [facility] CBC/PLT BLOOD Specimen Type: BLOOD No comment entered. Ordering Provider: SACHI SAINZ Report Released Date/Time: Jun 30, 2024 03:21 PM Reporting Lab: [address] [address] Performing Lab: [address] [address] WBC 7.2 10*3/uL 5.0-10.0 RBC 4.85 10*6/uL 4.6-6.2 HGB 14.7 g/dL 14.0-18.0 HCT 43.8 42.0-52.0 MCV 90.3 fL 80.0-94.0 MCH 30.3 pg 27.0-31.0 MCHC 33.6 g/dL 32.0-36.0 PLT 235 10*3/uL 150-450 MPV 10.6 fL 9.0-13.1 RDW 14.8 11.0-16.0 NRBC 0.0 0.0-0.0 May 15, 2024 09:46 AM [facility] MAGNESIUM PLASMA Specimen Type: PLASM A [...] May 07, 2024 10:35 AM Reporting Lab: [address] [address] Performing Lab: [address] [address] MAGNESIUM 1.8 mg/dL 1.6-2.6 May 15, 2024 09:46 AM [facility] BNP (Digifeye) PLASMA Specimen Type: PLASMA Comment: BNP results less than or equal to 100 pg/ml are quality control representative of normal values in patients without CHF. BNP results greater than 100 pg/ml are considered abnormal and suggestive of CHF. Higher BNP concentrations in the first 72 hours after Acute Coronary Syndrome are associated with an increased risk of , myocardial infarction and CHF. Ordering Provider: CYNDI STEINBERG Report Released Date/Time: May 07, 2024 10:35 AM Reporting Lab: [address] [address] Performing Lab: [address] [address] BNP (STODDARD) 29 pg/mL 0-100 May 15, 2024 09:46 AM [facility] PANEL 1 PLASMA Specimen Type: PLASM A [...] May 07, 2024 10:35 AM Reporting Lab: [address] [address] Performing Lab: [address] [address] CREATININE 1.54 mg/dL H 0.72-1.25 UREA NITROGEN [...] and tobacco- related health factors from the [place] facility where the Encounter took place. Current Smoking Status This section includes the most current smoking, or tobacco-related health factor, from the [place] facility where the Encounter took place. Date/Time Current Smoking Status Comment Edis baker May 07, 2024 10:00 AM VA-TOBACCO NEVER U SED CIGARETTES [facility] Tobacco Use History This section includes a history of the smoking, or tobacco-related health factors, that were collected on or before the date of the Encounter. The data comes from the [place] facility where the Encounter took place. Date/Time Smoking Status/Tobacco Use Comment F achelen May 07, 2024 10:00 AM VA-TOBACCO NEVER U SED OTHER TYPE [facility] Feb 14, 2024 08:30 AM VA-TOBACCO FORMER USER [facility] Feb 14, 2024 08:30 AM VA-TOBACCO QUIT 15 YRS OR MORE [facility] Jan 10, 2023 11:00 AM VA-TOBACCO NEVER USED [facility] Dec 09, 2021 08:00 AM VA-TOBACCO NEVER USED [facility] Dec 10, 2020 09:30 AM VA-TOBACCO NEVER USED [facility] May 13, 2019 09:09 AM VA-TOBACCO NEVER USED [facility] Apr 03, 2018 09:45 AM VA-TOBACCO NEVER USED [facility] May 07, 2017 10:31 AM V9 LIFETIME NON-USER OF TOBACCO [facility] Apr 06, 2016 10:18 AM V9 LIFETIME NON-USER OF TOBACCO [facility] Jan 26, 2015 08:52 AM V9 LIFETIME NON-USER OF TOBACCO [facility] August 18, 2013 08:27 AM V9 LIFETIME NON-USER OF TOBACCO [facility] Sep 18, 2012 08:39 AM V9 LIFETIME NON-USER OF TOBACCO [facility] Jan 19, 2012 10:42 AM V9 LIFETIME NON-USER OF TOBACCO [facility] Jan 19, 2012 10:42 AM V9 TOBACCO OFFERED [facility] September 13, 2010 10:28 AM V9 LIFETIME NON-USER OF TOBACCO [facility] September 13, 2010 10:28 AM V9 TOBACCO OFFERED [facility] Sep 21, 2006 12:59 PM V9 LIFETIME NON-USER OF TOBACCO [facility] Jan 29, 2006 07:52 AM HF V9 LIFETIME NON-SMOKER [facility] Dec 30, 2004 08:05 AM HF V9 LIFETIME NON-SMOKER [facility] Dec 23, 2003 02:58 PM HF V9 LIFETIME NON-SMOKER [facility] Radiology Reports: +/- 30 days [...] the Encounter. The data comes from all [facility] facilities. Date/Time Radiology Report Provider Source May 29, 2024 05:[id number] PERFORMED BY OTHER FACILITY: ERIK GALLEGO [facility] [id number] -1945 Exm Date: MAY 29, 2024@17:13 Req Phys: CYNDI STEINBERG Pat Loc: DEANNE PACT LULU 1-2 (Req'g Lo Img Loc: OUTSIDE2 LD CT Service: Unknown (Case [id number] COMPLETE) [id number] CT PERFORMED BY OTHER FACIL(CT Detailed) CPT:54139 Reason for Study: Exam imported from outside Clinical History: Original Data for Imported Study Patient Name: ERIK GALLEGO Date: 1945 Sex: M Study Date: 05/29/24 Study Time: 05:13:55 Study Description: CT CHEST PE/ABD/PEL W Referring Physician: TAMMI GEE Series 1: 2 CT files, description: CHIEF RELAY TESTER Series 2: 216 CT files, description: 5.0mm [...] Diagnostic Code: VERIFIED BY: / *ELECTRONICALLY FILED* [facility] May 27, 2024 08:07 AM MYOVIEW(1): ERIK GALLEGO [id number] -1945 M Exm Date: MAY 27, 2024@08:07 Req Phys: CYNDI STEINBERG Loc: DEANNE POD BUTCHER HELPER (Req'g Loc) Img Loc: NUCLEAR MEDICINE Service: [place] [address] (Case [id number] COMPLETE) MYOVIEW(1) (NM Detailed) CPT:A9502 Reason for [...] 27, 2024 Date Verified: MAY 27, 2024 Cut Out Machine Operator E-Sig: Report: STUDY: GXT REPORT: Patient exercised [...] Staff: ANIA ANDRADE APRN, Cardiology Verified by dairy associate for ANIA ANDRADE /ANIA ESPINOZA-CDD [facility] May 27, 2024 08:07 AM 22365(D) MYOCARDIAL SPECT(MULTIPLE): ERIK GALLEGO [id number] -1945 M Exm Date: MAY 27, 2024@08:07 Req Phys: CYNDI STEINBERG Loc: DEANNE POD BUTCHER HELPER (Req'g Loc) Img Loc: NUCLEAR MEDICINE Service: Unknown [place] [id number] THIS IS AN AMENDED REPORT (Case [id number] COMPLETE) [address]5932(D) MYOCARDIAL SPECT(MULTIPL(NM Detailed) CPT:16701 Proc Modifiers : GXT Reason for Study: [...] 05, 2024 Date Verified: JUN 05, 2024 Cut Out Machine Operator E-Sig: Report: [facility], [place], [place] STUDY: Treadmill Exercise SPECT Tc-99m myoview [...] performed with tomographic and three-dimensional reconstructions with Meridium NM/CT 640 system. The patient performed treadmill [...] data sets in addition to the conventional gpl-aalsztyrepd-swpsmpncv images. Both filtered back projection and iterative [...] ventricular cavity. 4. SPECT images: Attenuation-corrected and jhm-vrddclzrahr-arjwwhkks SPECT images were evaluated. SPECT images demonstrate normal myocardial perfusion. There is a medium size, mild intensity defect located in the zpudg-vk-pziyhs inferior myocardium . The defect is fixed [...] Kerri Mena MD, Cardiology Attending /KERRI LONG-Joseph [facility] May 27, 2024 08:07 AM TC-99M FROM NON-HIGHLY ENRICHED URANIUM SOURCE: ERIK GALLEGO [id number] -1945 M Exm Date: MAY 27, 2024@08:07 Req Phys: CYNDI STEINBERG Loc: DEANNE POD BUTCHER HELPER (Req'g Loc) Img Loc: NUCLEAR MEDICINE Service: [place] [address] THIS IS AN AMENDED REPORT (Case [id number] COMPLETE) TC-99M FROM NON-HIGHLY ENRICHED U(NM Detailed) [...] 05, 2024 Date Verified: JUN 05, 2024 Cut Out Machine Operator E-Sig: Report: [facility], [place], [place] STUDY: Treadmill Exercise SPECT Tc-99m myoview [...] performed with tomographic and three-dimensional reconstructions with Meridium NM/CT 640 system. The patient performed treadmill [...] data sets in addition to the conventional oum-gfqwojwxjlg-oyprmmduh images. Both filtered back projection and iterative [...] ventricular cavity. 4. SPECT images: Attenuation-corrected and ahf-htpswyucmkc-yvoytoige SPECT images were evaluated. SPECT images demonstrate normal myocardial perfusion. There is a medium size, mild intensity defect located in the ysysp-if-usptyf inferior myocardium . The defect is fixed [...] Kerri Mena MD, Cardiology Attending /KERRI LONG-D [facility] May 27, 2024 08:07 AM MYOVIEW(2): ERIK GALLEGO [id number] -1945 M Exm Date: MAY 27, 2024@08:07 Req Phys: CYNDI STEINBERG Pat Loc: DEANNE POD BUTCHER HELPER (Req'g Loc) Img Loc: NUCLEAR MEDICINE Service: [place] [address] THIS IS AN AMENDED REPORT (Case [id number] COMPLETE) MYOVIEW(2) (NM Detailed) CPT:A9502 Reason for [...] 05, 2024 Date Verified: JUN 05, 2024 Cut Out Machine Operator E-Sig: Report: [place], [place] STUDY: Treadmill Exercise SPECT Tc-99m myoview [...] performed with tomographic and three-dimensional reconstructions with Meridium NM/CT 640 system. The patient performed treadmill [...] data sets in addition to the conventional anl-fxmdvlhsyli-xdfzobkhp images. Both filtered back projection and iterative [...] rate-pressure double product was 27,216. 8. The Vleez treadmill score was 0 (intermediate risk). 9. [...] ventricular cavity. 4. SPECT images: Attenuation-corrected and isr-fkhasfbbafs-kckjusiok SPECT images were evaluated. SPECT images demonstrate normal myocardial perfusion. There is a medium size, mild intensity defect located in the gcsmy-bz-gehebi inferior myocardium . The defect is fixed [...] Kerri Mena MD, Cardiology Attending /KERRI LONG-LOWELL [facility] May 27, 2024 08:07 AM CARD. STRESS TEST W/TREADMILL/...: ERIK GALLEGO [id number] -1945 M Exm Date: MAY 27, 2024@08:07 Req Phys: MARYANCYNDI K Pat Loc: DEANNE POD BUTCHER HELPER (Req'g Loc) Img Loc: NUCLEAR MEDICINE Service: [place] [address] THIS IS AN AMENDED REPORT (Case [id number] COMPLETE) CARD. STRESS TEST W/TREADMILL/...(NM Detailed) CPT:74014 Reason for Study: SEE CLINICAL HISTORY Clinical [...] 05, 2024 Date Verified: JUN 05, 2024 Cut Out Machine Operator E-Sig: Report: [place], [place] STUDY: Treadmill Exercise SPECT Tc-99m myoview [...] performed with tomographic and three-dimensional reconstructions with [employer]/CT 640 system. The patient performed treadmill exercise [...] data sets in addition to the conventional jxv-ufopwezobys-bafocfzwh images. Both filtered back projection and iterative [...] ventricular cavity. 4. SPECT images: Attenuation-corrected and iek-qcxdxgcxcyo-rsstnzoge SPECT images were evaluated. SPECT images demonstrate normal myocardial perfusion. There is a medium size, mild intensity defect located in the hohdn-fe-yubjjh inferior myocardium . The defect is fixed [...] Kerri Mena MD, Cardiology Attending /KERRI LONG-LOWELL [facility] May 15, 2024 09:57 AM CHEST TWO(2) VIEW PA&LAT: ERIK GALLEGO [id number] -1945 M Exm Date: MAY 15, 2024@09:57 Req Phys: CYNDI STEINBERG Pat Loc: DEANNE PACT PHONE LULU (Req'g Img Loc: [facility] Service: Unknown [place] [address] (Case [id number] COMPLETE)CHEST TWO(2) VIEW PA&LAT (RAD Detailed) CPT:22418 Reason for Study: dyspnea Clinical History: Report Status: Verified Date Reported: MAY 17, 2024 Date Verified: MAY 17, 2024 Cut Out Machine Operator E-Sig: Report: CHEST TWO(2) VIEW PA&LAT, 05/15/2024 10:02 AM EST INDICATION: dyspnea COMPARISON: April 16, 2024 Impression: Calcified granuloma right lung apex. No edema or pneumonia. No pleural effusion or pneumothorax. Heart size normal. No acute osseous abnormality. Primary Diagnostic Code: NO ALERT REQUIRED Primary Interpreting Staff: KAILYN STEELE, Staff Physician Verified by dairy associate for KAILYN STEELE /KAILYN AVILES [facility] Encounter Notes: All associated encounter notes This section contains the clinical notes associated to the Encounter. Date/Time Encounter Note(s) Provider Source Jun 06, 2024 08:09 AM PODIATRY NURSING NOTE: LOCAL TITLE: PODIATRY NURSING NOTE STANDARD TITLE: PODIATRY NURSING NOTE DATE OF NOTE: JUN 06, 2024@08:09 ENTRY DATE: JUN 06, 2024@08:09:41 AUTHOR: MAGAN CAMILO COSIGNER: URGENCY: STATUS: COMPLETED LOWER EXTREMITY EXAM: Nails: aseptic debridement of the nails x 10 of lengh/girth/thickness via manual & eletric instrumentation. Skin: Interspaces clear and intact Appearance: Skin intact Vascular Evaluation: Sens Marianela Filament; Decreased with changes of neuropathy noted B/1 feet muscle strength intact IMPRESSION: 1. Tinea Unguium PLAN: Nails debrided in length and thickness entire nail bed all digits B/L using manual and mechanical techniques. Reviewed foot education and importance of proper foot care with patient RTC:3 months with DEANNE WILKINS ATT5 (Sam) had a heart attack on 05/30/2024. Had several stents placed at that time. Is now on blood thinners. /peyton/ MAGAN CAMILO BUTCHER HELPER STAFF BUTCHER HELPER Signed: 06/06/2024 08:11 Receipt Acknowledged By: 06/06/2024 14:36 /peyton/ CASSIE ELIZABETH PODIATRY ATTENDING MAGAN CAMILO [facility] Jun 06, 2024 08:08 AM SURGERY NURSING NOTE: LOCAL TITLE: SURGERY CLINIC INTAKE NOTE STANDARD TITLE: SURGERY NURSING NOTE DATE OF NOTE: JUN 06, 2024@08:08 ENTRY DATE: JUN 06, 2024@08:08:43 AUTHOR: MAGAN CAMILO COSIGNER: URGENCY: STATUS: COMPLETED The patient was [...] of active outpatient prescriptions dispensed from this [place] (local) and dispensed from another [place] or [place] facility (remote) as well as inpatient orders (local pending and active), local clinic medications, locally documented non-VA medications, and local prescriptions that have or been discontinued in the past 90 days. Non-VA Meds Last Documented On: Data not found NOTE The display of VA prescriptions dispensed from another [place] or [place] facility (remote) is limited to active outpatient prescription entries matched to National Drug File at the originating site and may not include some items such as investigational drugs, compounds, etc. NOT INCLUDED IN THIS LIST: Medications self-entered by the patient into personal health records (i.e. [employer]) are NOT included in this list. Non-VA medications documented outside this [place], remote inpatient orders (regardless of status) and remote clinic medications are NOT included in this list. The patient and provider must always discuss medications the patient is taking, regardless of where the medication was dispensed or obtained. OUTPT ALOH 160/MG CARB 105MG CHEW TAB (Status = Active) CHEW 1 TABLET BY MOUTH AFTER MEALS NEEDED FOR INDIGESTION/REFLUX Rx# [id number] Last Released: 02/06/24 Qty/Days Supply: 100/ Rx Expiration Date: 10/26/24 Refills Remainin Indication: FOR STOMACH OUTPT AMLODIPINE BESYLATE 2.5MG TAB (Status = Active) TAKE ONE TABLET BY MOUTH DAILY FOR HIGH BLOOD PRESSURE -DO NOT DRINK GRAPEFRUIT JUICE WHILE ON THIS DRUG Rx# [id number] Last Released: 05/07/24 Qty/Days Supply: 90 Rx Expiration Date: 08/05/24 Refills Remainin Indication: FOR HIGH BLOOD PRESSURE OUTPT CEPHALEXIN 500MG CAP (Status = ) TAKE ONE CAPSULE BY MOUTH THREE TIMES A DAY FOR SKIN OR SOFT TISSUE INFECTION Rx# [id number] Last Released: 02/28/24 Qty/Days Supply: 03/11 Rx Expiration Date: 03/29/24 Refills Remainin Indication: FOR SKIN OR SOFT TISSUE INFECTION OUTPT CHOLECALCIF 25MCG (D3-1,000UNIT) TAB (Status = Active) TAKE FOUR TABLETS BY MOUTH DAILY FOR VITAMIN D SUPPLEMENT Rx# [id number] Last Released: 05/16/24 Qty/Days Supply: 400/90 Rx Expiration Date: 02/14/25 Refills Remainin OUTPT CLINDAMYCIN PHOSPHATE 1% TOP GEL (Status = Discontinued) APPLY SMALL AMOUNT TO AFFECTED AREA TWICE A DAY FOR INFECTION Rx# [id number] Last Released: 04/24/23 Qty/Days Supply: 6030 Rx Expiration Date: 03/15/24 Refills Remainin Indication: FOR INFECTION OUTPT CLOTRIMAZOLE 1% TOP SOLN (Status = Active) APPLY SMALL AMOUNT TO AFFECTED AREA TWICE A DAY FOR FUNGAL INFECTION Rx# [id number] Last Released: 02/05/24 Qty/Days Supply: Rx Expiration Date: 07/13/24 Refills Remainin Indication: FOR FUNGAL INFECTION OUTPT CYANOCOBALAMIN 1000MCG TAB (Status = Active) TAKE ONE TABLET BY MOUTH DAILY FOR VITAMIN B12 SUPPLEMENT Rx# [id number] Last Released: 05/22/24 Qty/Days Supply: 90/ Rx Expiration Date: 02/14/25 Refills Remainin Indication: FOR VITAMIN B12 SUPPLEMENT OUTPT DICLOFENAC NA 1% TOP GEL (Status = Active) APPLY SMALL AMOUNT TO AFFECTED AREA EVERY 6 HOURS NEEDED FOR SHOULDER PAIN Rx# [id number] Last Released: 05/22/24 Qty/Days Supply: 300/90 Rx Expiration Date: 02/14/25 Refills Remainin OUTPT FLUTICASONE PROP 50MCG 120D NASAL INHL (Status = Active) USE 2 SPRAYS IN EACH NOSTRIL DAILY FOR NASAL ALLERGY Rx# [id number] Last Released: 05/16/24 Qty/Days Supply: 3 Rx Expiration Date: 02/14/25 Refills Remainin OUTPT FUROSEMIDE 20MG TAB (Status = Active) TAKE ONE TABLET BY MOUTH EVERY MORNING FOR FLUID Rx# [id number] Last Released: 05/07/24 Qty/Days Supply: 60/60 Rx Expiration Date: 07/06/24 Refills Remainin Indication: FOR FLUID OUTPT GABAPENTIN 300MG CAP (Status = Active) TAKE ONE CAPSULE BY MOUTH EVERY MORNING AND TAKE ONE CAPSULE AT NOON AND TAKE TWO CAPSULES EVERY EVENING FOR PAIN Rx# [id number] Last Released: 04/28/24 Qty/Days Supply: 120/30 Rx Expiration Date: 02/14/25 Refills Remainin Indication: FOR NERVE PAIN OUTPT HCTZ 12.5MG/LOSARTAN 100MG TAB (Status = Discontinued) TAKE 1 TABLET BY MOUTH DAILY FOR BLOOD PRESSURE/HEART Rx# [id number] Last Released: 03/03/24 Qty/Days Supply: 90/90 Rx Expiration Date: 02/14/25 Refills Remainin Indication: FOR BLOOD PRESSURE/HEART OUTPT LIDOCAINE 5% 5IN X 6IN PATCH (Status = Active) APPLY 2 PATCHES TO SKIN DAILY FOR PAIN -LEAVE ON 12 HOURS, THEN REMOVE FOR 12 HOURS Rx# [id number] Last Released: 05/15/24 Qty/Days Supply: 60/30 Rx Expiration Date: 02/14/25 Refills Remainin Indication: FOR PAIN OUTPT LORATADINE 10MG TAB (Status = Active) TAKE ONE TABLET BY MOUTH DAILY FOR ALLERGIES Rx# [id number] Last Released: 05/22/24 Qty/Days Supply: 90/90 Rx Expiration Date: 02/14/25 Refills Remainin OUTPT LOSARTAN 100MG TAB (Status = Active) TAKE ONE TABLET BY MOUTH DAILY FOR BLOOD PRESSURE STOPPING THE HCTZ Rx# [id number] Last Released: 04/16/24 Qty/Days Supply: 90/90 Rx Expiration Date: 07/15/24 Refills Remainin Indication: FOR BLOOD PRESSURE OUTPT MAGNESIUM OXIDE 420MG TAB (Status = Active) TAKE ONE TABLET BY MOUTH TWICE A DAY FOR SUPPLEMENT Rx# [id number] Last Released: 04/16/24 Qty/Days Supply: 200/90 Rx Expiration Date: 07/15/24 Refills Remainin Indication: FOR SUPPLEMENT OUTPT METFORMIN HCL 1000MG TAB (Status = Active) TAKE ONE TABLET BY MOUTH TWICE A DAY FOR DIABETES Rx# [id number] Last Released: 05/16/24 Qty/Days Supply: 180/90 Rx Expiration Date: 02/14/25 Refills Remainin OUTPT MIRTAZAPINE 15MG TAB (Status = Discontinued) TAKE ONE-HALF TABLET BY MOUTH AT BEDTIME FOR SLEEP Rx# [id number] Last Released: 04/05/24 Qty/Days Supply: 45/90 Rx Expiration Date: 12/27/24 Refills Remainin Indication: FOR SLEEP OUTPT MIRTAZAPINE 15MG TAB (Status = Active/Suspended) TAKE ONE-HALF TABLET BY MOUTH AT BEDTIME FOR SLEEP Rx# [id number] Last Released: Qty/Days Supply: 45 Rx Expiration Date: 04/16/25 Refills Remainin Indication: FOR SLEEP OUTPT MULTIVIT/OPHTH AREDS2/LUTE/ZEAX CAP/TAB (Status = Active) TAKE 1 SOFTGEL BY MOUTH TWICE A DAY AFTER MEALS FOR EYE HEALTH Rx# [id number] Last Released: 04/30/24 Qty/Days Supply: 120/60 Rx Expiration Date: 04/26/25 Refills Remainin Indication: FOR EYE HEALTH OUTPT MUPIROCIN 2% OINT (Status = Active) APPLY SMALL AMOUNT TO AFFECTED AREA DAILY TO PREVENT INFECTION -APPLY DAILY TO TREATMENT SITES AFTER CLEANING. THIS IS A TOPICAL ANTIBIOTIC. Rx# [id number] Last Released: 05/16/24 Qty/Days Supply: Rx Expiration Date: 01/22/25 Refills Remainin Indication: TO PREVENT INFECTION OUTPT PANTOPRAZOLE NA 40MG EC TAB (Status = Active) TAKE ONE TABLET BY MOUTH TWICE A DAY 30 MINUTES BEFORE A MEAL FOR STOMACH -TAKE ON AN EMPTY STOMACH. Rx# [id number] Last Released: 11/30/23 Qty/Days Supply: 180/90 Rx Expiration Date: 06/26/24 Refills Remainin Indication: FOR STOMACH OUTPT PIOGLITAZONE HCL 30MG TAB (Status = Active) TAKE ONE TABLET BY MOUTH DAILY FOR DIABETES Rx# [id number] Last Released: 05/15/24 Qty/Days Supply: 90 Rx Expiration Date: 02/14/25 Refills Remainin Indication: FOR BLOOD SUGAR OUTPT PRAZOSIN HCL 1MG CAP (Status = Active) TAKE ONE CAPSULE BY MOUTH AT BEDTIME FOR NIGHTMARES. TAKE IN ADDITION TO 5 MG CAPSULE FOR TOTAL OF 6 MG AT BEDTIME Rx# [id number] Last Released: 04/23/24 Qty/Days Supply: Rx Expiration Date: 07/14/24 Refills Remainin Indication: FOR NIGHTMARES. OUTPT PRAZOSIN HCL 5MG CAP (Status = Discontinued) TAKE ONE CAPSULE BY MOUTH AT BEDTIME FOR NIGHTMARES Rx# [id number] Last Released: 04/05/24 Qty/Days Supply: 90 Rx Expiration Date: 12/27/24 Refills Remainin Indication: FOR NIGHTMARES OUTPT PRAZOSIN HCL 5MG CAP (Status = Active/Suspended) TAKE ONE CAPSULE BY MOUTH AT BEDTIME FOR NIGHTMARES Rx# [id number] Last Released: Qty/Days Supply: 90 Rx Expiration Date: 04/16/25 Refills Remainin Indication: FOR NIGHTMARES OUTPT SERTRALINE HCL 100MG TAB (Status = Discontinued) TAKE ONE AND ONE-HALF TABLETS BY MOUTH EVERY MORNING FOR MOOD Rx# [id number] Last Released: 03/19/24 Qty/Days Supply: Rx Expiration Date: 12/27/24 Refills Remainin Indication: FOR MOOD OUTPT SERTRALINE HCL 100MG TAB (Status = Active) TAKE ONE AND ONE-HALF TABLETS BY MOUTH EVERY MORNING FOR MOOD Rx# [id number] Last Released: QtDays Supply: Rx Expiration Date: 04/16/25 Refills Remainin Indication: FOR MOOD OUTPT TRIAMCINOLONE ACETONIDE 0.1% OINT (Status = Active) APPLY SMALL AMOUNT TO AFFECTED AREA TWICE A DAY FOR SKIN RASH Rx# [id number] Last Released: 02/07/24 Qty/Days Supply: Rx Expiration Date: 11/29/24 Refills Remainin Indication: FOR SKIN RASH SUPPLIES OUTPT ACCU-CHEK GUIDE (GLUCOSE) TEST STRIP (Status = Active) USE 1 STRIP TO TEST BLOOD SUGAR 3-4 TIMES WEEKLY Rx# [id number] Last Released: 05/16/24 Qty/Days Supply: Rx Expiration Date: 02/14/25 Refills Remainin /peyton/ MAGAN CAMILO LPN STAFF BUTCHER HELPER Signed: 06/06/2024 08:09 MAGAN CAMILO [facility]
--- OUTSIDE RECORDS SUMMARY | 2024-07-24 21:28 | XMS_ITS ---
Author Name [facility] Address [address] [place] [id number] Care Team Providers Care Head Of Drama Name Role Phone LAURA MCKEON Primary Care [...] PART A Oct 14, 2009 PART A [id number] [phone] Alex GALLEGO PATIENT MEDICARE (WNR) MEDICARE (M) PART B Oct 14, 2009 PART B [id number] Alex GLALEGO PATIENT MEDICARE (WNR) MEDICARE (M) PART A Oct 14, 2009 PART A [id number] Alex GALLEGO PATIENT MEDICARE (WNR) MEDICARE (M) PART B Oct 14, 2009 PART B [id number] [phone] Alex GALLGEO PATIENT MEDICARE (WNR) MEDICARE (M) PART A Oct 14, 2009 PART A [id number] [phone] Alex GALLEGO PATIENT MEDICARE (WNR) MEDICARE (M) PART B Oct 14, 2009 PART B [id number] Alex GALLEGO PATIENT Selected Encounter This section includes the information on record at [place] for the Encounter. Date/Time Encounter Type Encounter Description Reason Provider Source Jul 01, 2024 09:00 AM BREATHING CAPACITY TEST PULMONARY FUNCTION ICD-10-CM J20.9 Acute bronchitis, unspecified [facility] POST Jennifer Encounter Template Text not used by [place] Assessments - Encounter Diagnoses This section includes the primary and secondary diagnoses documented for the Encounter. Date/Time Primary/Secondary Diagnosis Diagnosis Name Provider Source Jul 01, 2024 09:21 AM PRIMARY Acute bronchitis, unspecified SCOTT POST [facility] Plan of Treatment: Future Appointments (+ 6 months) and Future Tests (+/- 45 days) The Plan of Treatment section includes future care activities for the patient from all [place] treatmentfacilities. This section includes future appointments and future orders which are active, pending or scheduled. Future Appointments This section includes appointments that were scheduled to occur 6 months from the date of the Encounter, up to a maximum of 20 appointments. The data comes from all [place] treatment facilities. Appointment Date/Time Appointment Type Appointme nt Facility Name Jul 07, 2024 10:00 AM AMBULATORY - [facility]RY [facility] Jul 08, 2024 10:00 AM [facility] - [facility]ICINE [facility] Jul 10, 2024 08:30 AM AMBULATORY - MEDICINE [facility] Jul 24, 2024 03:00 PM AMBULATORY - PSYCHIATRY [facility] Aug 05, 2024 09:00 AM [facility] - MEDICINE [facility] Aug 11, 2024 10:00 AM AMB[facility]ATORY - PS[facility]CHIATRY [facility] Aug 12, 2024 09:00 AM [facility]ATORY - MEDICINE [facility] August 18, 2024 09:00 AM AMBULATORY - SURGERY [facility] September 02, 2024 08:20 AM AMBULATORY - SURGERY [facility] Oct 01, 2024 09:00 AM AMBULATORY - NONE [facility] Oct 30, [...] and Hematology Lab Results on record with [place] for the patient. Radiology Reports and Pathology Reports are provided separately, in subsequent sections. Lab Results This section contains the Chemistry/Hematology Results that were resulted 30 days before or 30 daysafter the date of the Encounter. Date/Time Source Result Type Result - Unit Interpretation Reference Range Specimen Type Comment Jun 30, 2024 03:27 PM [facility] BNP (STODDARD) PLASMA Specimen Type: PLASMA Comment: BNP results less than or equal to 100 pg/ml are service representative of normal values in patients without CHF. BNP results greater than 100 pg/ml are considered abnormal and suggestive of CHF. Higher BNP concentrations in the first 72 hours after Acute Coronary Syndrome are associated with an increased risk of , myocardial infarction and CHF. Ordering Provider: SACHI SAINZ Report Released Date/Time: Jun 30, 2024 03:21 PM Reporting Lab: [facility] [address] [place] [id number] Performing Lab: [address] [address] BNP (STODDARD) 22 pg/mL 0-100 Jun 30, 2024 03:27 PM [facility] PANEL 1 PLASMA Specimen Type: [...] Jun 30, 2024 03:21 PM Reporting Lab: [address] [address] Performing Lab: [address] [address] CREATININE 1.43 mg/dL H 0.72-1.25 UREA NITROGEN 22 mg/dL 9-25 GLUCOSE 164 mg/dL H 74-100 SODIUM 139 mmol/L 136-145 POTASSIUM 3.7 mmol/L 3.5-5.1 CHLORIDE 102 mmol/L 98-107 CO2 27 mmol/L 22-29 CALCIUM 9.8 mg/dL 8.4-10.2 ANION GAP 10 meq/L 3-19 eGFR (CKD-EPI) 50 Jun 30, 2024 03:27 PM [facility] CBC/PLT BLOOD Specimen Type: BLOOD No comment entered. Ordering Provider: SACHI SAINZ Report Released Date/Time: Jun 30, 2024 03:21 PM Reporting Lab: [address] [address] Performing Lab: [address] [place] [address] WBC 7.2 10*3/uL 5.0-10.0 RBC 4.85 10*6/uL [...] the Encounter. The data comes from all [place] treatment facilities. Date/Time Pathology Report Provider Source Jul 10, 2024 09:41 AM LR SURGICAL PATHOL [facility] REPORT: LOCAL TITLE: LR SURGICAL PATHOLOGY REPORT DATE OF NOTE: JUL 10, 2024@09:41:15 ENTRY DATE: JUL 10, 2024@09:41:15 AUTHOR: JOE LEUNG COSIGNER: URGENCY: STATUS: COMPLETED $APHDR Reporting Lab: [facility] [[facility]# [id number]] [facility] [place] [address] - - - - - - - [...] left earlobe and consists of an unoriented, [id number], yellow/white shave of skin measuring 0.5 x 0.4 x 0.2 cm. A rough papule is identified over the skin surface measuring 0.4 x 0.3 cm. The cut surface is yellow/white and grossly unremarkable. The cut surface is inked blue. The specimen is bisected to reveal a white solid interior. The specimen is submitted entirely in a single cassette. 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 /peyton/ JOE LEUNG pathologist Signed Jul 10, 2024@09:41 Performing Laboratory: Surgical Pathology Report Performed By: [facility] [CLIA# [id number]] [address] [place] [address] $FTR - - - - - - - - - - - - - - - - - - - - - - - - - - - - - - - - - - - - - - - - (End of report) JOE LEUNG MD [facility] Date Jul 10, 2024 - - - - - - - - - - - - - - - - - - - - - - - - - - - - - - - - - - - - - - - - ERIK GALLEGO STANDARD FORM 515 ID:[id number] SEX:M :1945 AGE: 78 LOC:PATH PCP: Laura Mckeon MD /peyton/ JOE LEUNG pathologist Signed: 07/10/2024 09:41 JOE LEUNG[facility] Encounter Notes: All associated encounter notes This section contains the clinical notes associated to the Encounter. Date/Time Encounter Note(s) Provider Source Jul 01, 2024 09:20 AM RESPIRATORY THERAP Y NOTE: LOCAL TITLE: PULMONARY FUNCTION TEST NOTE STANDARD TITLE: RESPIRATORY THERAPY NOTE DATE OF NOTE: JUL 01, 2024@09:20 ENTRY DATE: JUL 01, 2024@09:20:08 AUTHOR: SCOTT POST EXP COSIGNER: URGENCY: STATUS: COMPLETED Time out to ensure correct patient and procedure was performed using the following identifiers: Full SS# as stated by patient and compared to paper CPRS order. Full as stated by patient and compared to paper CPRS order. Test Performed: Full PFT (Spirometry/lung volumes, if indicated and DLCO) Diagnoses: Acute bronchitis, unspecified (ICD-10-CM J20.9) (Primary) Procedures: Airway Resistance by Impulse Oscillometry Plethysmography for Lung Volumes Spirometry/Forced Vital Capacity /es/ SCOTT POST Respiratory Therapist Signed: 07/01/2024 09:21 SCOTT POSTJoseph [facility] Jul 01, 2024 09:18 AM PULMONARY NOTE: LOCAL TITLE: CP PULMONARY FUNCTION TEST STANDARD TITLE: PULMONARY NOTE DATE OF NOTE: JUL 01, 2024@09:18 ENTRY DATE: JUL 01, 2024@09:18:07 AUTHOR: ERASMO MOBLEY EXP COSIGNER: URGENCY: STATUS: COMPLETED PROCEDURE SUMMARY CODE: Borderline DATE/TIME PERFORMED: JUL 01, 2024@09:11 Essentially normal study, although note is made of borderline normal FEV1 and FVC with normal FEV1/FVC ratio (possible restriction without obstruction). Lung volumes however do not support restrictive physiology. FEV1 and FVC were in in higher-normal range on study from 11/2019, but similar pattern of borderline normal FEV1 and FVC is seen on spirometry 12/2018. Diffusion is also borderline but normalizes when corrected for low lung volumes. Correlate clincially /peyton/ ERASMO MOBLEY M.D. ATTENDING PHYSICIAN Signed: 07/01/2024 17:24 ERASMO MOBLEY-Joseph [facility]
--- OUTSIDE RECORDS SUMMARY | 2024-07-24 21:29 | XMS_ITS | Encounter Summary ---
Author Name [facility] Address [address] [place] [address] Care Team Providers Care Director Product Safety Name Role Phone LAURA STEINBERG Primary Care [...] PART A Oct 14, 2009 PART A [id number] Alex GALLEGO PATIENT MEDICARE (WNR) MEDICARE (M) PART B Oct 14, 2009 PART B [id number] Alex GALLEGO PATIENT MEDICARE (WNR) MEDICARE (M) PART A Oct 14, 2009 PART A [id number] Alex GALLEGO PATIENT MEDICARE (WNR) MEDICARE (M) PART B Oct 14, 2009 PART B [id number] Alex GALLEGO PATIENT MEDICARE (WNR) MEDICARE (M) PART B Oct 14, 2009 PART B [id number] Alex GALLEGO PATIENT MEDICARE (WNR) MEDICARE (M) PART A Oct 14, 2009 PART A [id number] Alex GALLEGO PATIENT Selected Encounter This section includes the information on record at [place] for the Encounter. Date/Time Encounter Type Encounter Description Reason Provider Source Feb 29, 2024 09:20 AM OFF/OP EST AUGUST X REQ PHY/QHP PODIATRY ICD-10-CM B35.1 Miriam CAMILO,[facility] ISTY B IHE Encounter Template Text not used by [place] Assessments - Encounter Diagnoses This section includes the primary and secondary diagnoses documented for the Encounter. Date/Time Primary/Secondary Diagnosis Diagnosis Name Provider Source Feb 29, 2024 09:21 AM PRIMARY NAKUL SheppardI STY B [facility] Plan of Treatment: Future Appointments (+ 6 months) and Future Tests (+/- 45 days) The Plan of Treatment section includes future care activities for the patient from all [place] treatmentfacilities. This section includes future appointments and future orders which are active, pending or scheduled. Future Appointments This section includes appointments that were scheduled to occur 6 months from the date of the Encounter, up to a maximum of 20 appointments. The data comes from all [place] treatment facilities. Appointment Date/Time Appointment Type Appointme nt Facility Name Mar 04, 2024 09:00 AM AMBULATORY - PSYCHIATRY [facility] Mar 17, 2024 01:00 PM [facility] Mar 18, 2024 08:30 AM AMBULATORY - REHAB MEDICIN E [facility] Mar 18, 2024 10:00 AM [facility] Mar 28, 2024 08:00 AM AMBULATORY - NONE [facility] Apr 01, 2024 10:00 AM AMBULATORY - PSYCHIATRY [facility] Apr 15, 2024 09:00 AM AMBUL[facility]ORY - [facility]CHIATRY [facility] Apr 16, 2024 11:35 AM AMBULATORY - MEDICINE [facility]NE [facility] Apr 25, 2024 08:30 AM AMBULATORY - SURGERY [place] GTON[facility] Apr 29, 2024 10:00 AM [facility] May 06, 2024 10:00 AM AMBULATORY - PSYCHIATRY [facility] May 07, 2024 10:00 AM AMBULATORY - MEDICINE [facility]AYNE [facility] May 15, 2024 10:30 AM AMBULATORY - REHAB MEDICIN E [facility]AN[facility] May 20, 2024 08:00 AM AMBULATORY - NONE [facility] May 20, 2024 10:00 AM AMBULATORY - MEDICINE JAYNE [facility] May 27, 2024 08:00 AM AMBULATORY - NONE [place] [facility] Jun 06, 2024 08:00 AM AMBULATORY - SURGERY [place] [facility] Jun 10, 2024 08:50 AM AMBULATORY - MEDICINE JAYNE [facility] Jun 10, 2024 11:00 AM AMBULATORY - PSYCHIATRY [facility] Jun 20, 2024 09:00 AM [facility] Lab Results: +/- 30 days of the encounter This section includes the Chemistry and Hematology Lab Results on record with [place] for the patient. Radiology Reports and Pathology Reports are provided separately, in subsequent sections. Lab Results This section contains the Chemistry/Hematology Results that were resulted 30 days before or 30 daysafter the date of the Encounter. Date/Time Source Result Type Result - Unit Interpretation Reference Range Specimen Type Comment Feb 14, 2024 10:41 AM [facility] MICROALBUMIN/CREAT RATIO URINE Specimen Type: URINE No comment entered. Ordering Provider: LAURA STEINBERG Report Released Date/Time: Feb 14, 2024 09:03 AM Reporting Lab: [address] [address] Performing Lab: [address] [address] CREATININE 133.0 mg/dL MICROALBUMIN QUANT 5.8 mg/L 0.0-30.0 .MICROALBUMIN/CREA RATIO 4.4 ug/mg{creat} Feb 14, 2024 10:41 AM [facility] DRUG SCREEN EXPANDED IN-HOUSE URINE Specimen Type: [...] Feb 14, 2024 09:03 AM Reporting Lab: [address] [address] Performing Lab: [address] [address] TETRAHYDROCANNABINOL SCREEN NEG Cuto ff < 50 [...] Feb 14, 2024 10:19 AM [facility] LIPID PROFILE PLASMA Specimen Type: PLASM A [...] Feb 14, 2024 09:03 AM Reporting Lab: [address] [address] Performing Lab: [address] [address] CHOLESTEROL 161 mg/dL 0-199 TRIGLYCERIDE 84 mg/dL 0-149 HDL CHOLESTEROL 54 mg/dL 40-69 DIRECT LDL CHOL. 95 mg/dL 0-100 Feb 14, 2024 10:19 AM [facility] GLYCOHEMOGLOBIN BLOOD Specimen Type: BLOOD Comment: [facility] guidelines for A1c interpretation: Glycemic control targets are based on Shared Decision Making between clinicians and patients. Criteria used to establish an A1c target recommendation can be found at https://www.mt.gov/qualityandpatientsafety/ and include the use of result accuracy [...] 8.73 and 9.27. Ref: https://ngsp.org/CAPdata.asp. The in-house [employer] D-100 analyzer has a historical CV <= 2%. Contact the laboratory for further performance characteristics of this assay. Ordering Provider: LAURA STEINBERG Report Released Date/Time: Feb 14, 2024 09:03 AM Reporting Lab: [address] [address] Performing Lab: [address] [address] GLYCOHEMOGLOBIN 6.0 4.4-6.4 Feb 14, 2024 10:19 AM [facility] PANEL 5 PLASMA Specimen Type: PLASM A [...] Feb 14, 2024 09:03 AM Reporting Lab: [address] [address] Performing Lab: [address] [address] CREATININE 1.38 mg/dL H 0.72-1.25 UREA NITROGEN [...] (CKD-EPI) 52 Feb 14, 2024 10:19 AM [facility] PLASMA Specimen Type: PLASM A Comment: Estimated [...] Feb 14, 2024 09:03 AM Reporting Lab: [address] [address] Performing Lab: [address] [address] TSH 1.1076 m[IU]/mL 0.3500-4.9400 Feb 14, 2024 10:19 AM [facility] B12 VITAMIN PLASMA Specimen Type: PLASM A [...] Feb 14, 2024 09:03 AM Reporting Lab: [address] [address] Performing Lab: [address] [address] B12 VITAMIN 761 pg/mL 213-816 Feb 14, 2024 10:19 AM [facility] 25-OH VITAMIN D SERUM Specime n Type: [...] Feb 14, 2024 09:03 AM Reporting Lab: [address] [place] [address] Performing Lab: [address] [address] 25-OH VITAMIN D 42.5 ng/mL 20.0-50.0 Feb 14, 2024 10:19 AM [facility] CBC/PLT BLOOD Specimen Type: BLOOD No comment entered. Ordering Provider: LAURA STEINBERG Report Released Date/Time: Feb 14, 2024 09:03 AM Reporting Lab: [address] [address] Performing Lab: [address] [address] WBC 6.7 10*3/uL 5.0-10.0 RBC 5.17 10*6/uL 4.6-6.2 HGB 15.8 g/dL 14.0-18.0 HCT 47.1 42.0-52.0 MCV 91.1 fL 80.0-94.0 MCH 30.6 pg 27.0-31.0 MCHC 33.5 g/dL 32.0-36.0 PLT 257 10*3/uL 150-450 MPV 10.5 fL 9.0-13.1 RDW 14.4 11.0-16.0 NRBC 0.0 0.0-0.0 Jan 31, 2024 11:09 AM [facility] GLUCOSE-HAND MONITOR CAPILLARY Specime n Type: CAPILLARY Comment: $ Test performed by: [id number] Meter #: [id number] Ordering Provider: PELON CHEUNG Report Released Date/Time: Feb 04, 2024 07:19 AM Reporting Lab: [address] [address] Performing Lab: [address] [address] GLUCOSE-HAND MONITOR 125 mg/dL H 71-99 Social History: Smoking Status (Most current) and Tobacco Use (All prior to encounter date) This section includes the most current, and the historical, smoking and tobacco- related health factors from the [facility] where the Encounter took place. Current Smoking Status This section includes the most current smoking, or tobacco-related health factor, from the [facility] where the Encounter took place. Date/Time Current Smoking Status Comment Facil ity Feb 14, 2024 08:30 AM VA-TOBACCO FORMER USER [facility] Tobacco Use History This section includes a history of the smoking, or tobacco-related health factors, that were collected on or before the date of the Encounter. The data comes from the [place] facility where the Encounter took place. Date/Time Smoking Status/Tobacco Use Comment Ramu harrington Feb 14, 2024 08:30 AM VA-TOBACCO QUIT 15 YRS OR MORE [facility] Jan 10, 2023 11:00 AM VA-TOBACCO NEVER USED [facility] Dec 09, 2021 08:00 AM VA-TOBACCO NEVER USED [facility] Dec 10, 2020 09:30 AM VA-TOBACCO NEVER USED [facility] May 13, 2019 09:09 AM VA-TOBACCO NEVER USED [facility] Apr 03, 2018 09:45 AM VA-TOBACCO NEVER USED [facility] May 07, 2017 10:31 AM V9 LIFETIME NON-USER OF TOBACCO [facility] Apr 06, 2016 10:18 AM V9 LIFETIME NON-USER OF TOBACCO [facility] Jan 26, 2015 08:52 AM V9 LIFETIME NON-USER OF TOBACCO [facility] August 18, 2013 08:27 AM V9 LIFETIME NON-USER OF TOBACCO [facility] Sep 18, 2012 08:39 AM V9 LIFETIME NON-USER OF TOBACCO [facility] Jan 19, 2012 10:42 AM V9 LIFETIME NON-USER OF TOBACCO [facility] Jan 19, 2012 10:42 AM V9 TOBACCO OFFERED [facility] September 13, 2010 10:28 AM V9 LIFETIME NON-USER OF TOBACCO [facility] September 13, 2010 10:28 AM V9 TOBACCO OFFERED [facility] Sep 21, 2006 12:59 PM V9 LIFETIME NON-USER OF TOBACCO [facility] Jan 29, 2006 07:52 AM HF V9 LIFETIME NON-SMOKER [facility] Dec 30, 2004 08:05 AM HF V9 LIFETIME NON-SMOKER [facility] Dec 23, 2003 02:58 PM HF V9 LIFETIME NON-SMOKER [facility] Pathology Reports: +/- 30 days of the [...] the Encounter. The data comes from all [place] treatment facilities. Date/Time Pathology Report Provider Source Feb 05, 2024 03:20 PM LR SURGICAL PATHOL OGY REPORT: LOCAL TITLE: LR SURGICAL PATHOLOGY REPORT DATE OF NOTE: FEB 05, 2024@15:20:14 ENTRY DATE: FEB 05, 2024@15:20:14 AUTHOR: ROSS DOBSON EXP COSIGNER: URGENCY: STATUS: COMPLETED $APHDR Reporting Lab: [facility] [IA# [id number]] [address] [place] [address] - - - - - - - [...] submitted in one cassette. CPT CODE - 20945 MICROSCOPIC EXAM/DIAGNOSIS: Right long finger cyst, excision: -Findings consistent with digital mucous cyst. /peyton/ Ross Dobson MD Pathologist Signed Feb 05, 2024@15:20 Performing Laboratory: Surgical Pathology Report Performed By: [facility] [CLIA# [id number]] [address] [place] [id number] $FTR - - - - - - - - - - - - - - - - - - - - - - - - - - - - - - - - - - - - - - - - (End of report) ROSS DOBSON MD klp Date Feb 05, 2024 - - - - - - - - - - - - - - - - - - - - - - - - - - - - - - - - - - - - - - - - ERIK GALLEGO STANDARD FORM 515 ID:[id number] SEX:M :1945 AGE: 78 LOC:PATH PCP: Laura Steinberg MD /peyton/ Ross Dobson MD Pathologist Signed: 02/05/2024 15:20 ROSS DOBSON-[facility] Jan 31, 2024 12:13 PM LR SURGICAL PATHOL OGY REPORT: LOCAL TITLE: LR SURGICAL PATHOLOGY REPORT DATE OF NOTE: JAN 31, 2024@12:13:13 ENTRY DATE: JAN 31, 2024@12:13:13 AUTHOR: JUDY SIGALA EXP COSIGNER: URGENCY: STATUS: COMPLETED $APHDR Reporting Lab: [facility] [CLIA# [id number]] [address] [place] [address] - - - - - - - [...] CELL CARCINOMA LEFT PREAURICULAR CHEEK. CPT CODE: 26966 I ACTED BOTH THE SURGEON AND THE PATHOLOGIST FOR THIS CASE. PLEASE SEE CORRESPONDING MOHS NOTE IN CPRS AND MOHS MAP SCANNED TO [facility]. /peyton/ JUDY SIGALA Chief, Dermatology Signed Jan 31, 2024@12:13 Performing Laboratory: Surgical Pathology Report Performed By: [facility] [CLIA# [id number]] [address] [place] [address] $FTR - - - - - - - - - - - - - - - - - - - - - - - - - - - - - - - - - - - - - - - - (End of report) JUDY SIGALA MD [facility] Date Jan 22, 2024 - - - - - - - - - - - - - - - - - - - - - - - - - - - - - - - - - - - - - - - - ERIK GALLEGO STANDARD FORM 515 ID:[id number] SEX:M :1945 AGE: 78 LOC:DERM PCP: Laura Steinberg MD /peyton/ JUDY SIGALA Chief, Dermatology Signed: 01/31/2024 12:13 JUDY SIGALA[facility] Encounter Notes: All associated encounter notes This section contains the clinical notes associated to the Encounter. Date/Time Encounter Note(s) Provider Source Feb 29, 2024 09:20 AM NURSING NOTE: LOCAL TITLE: NURSING NOTE STANDARD TITLE: NURSING NOTE DATE OF NOTE: FEB 29, 2024@09:20 ENTRY DATE: FEB 29, 2024@09:20:58 AUTHOR: MAGAN CAMILO COSIGNER: URGENCY: STATUS: COMPLETED Yes - [place]/Caregiver verbalized understanding of topics discussed and education provided LOWER EXTREMITY EXAM: Nails: aseptic debridement of [...] importance of proper foot care with patient RTC: 3months with DEAN[facility] ENTERTAINMENT USHER clinic /peyton/ MAGAN CAMILO ENTERTAINMENT USHER STAFF ENTERTAINMENT USHER Signed: 02/29/2024 09:21 MAGAN CAMILO [facility] Feb 29, 2024 09:10 AM SURGERY NURSING NOTE: LOCAL TITLE: SURGERY CLINIC INTAKE NOTE STANDARD TITLE: SURGERY NURSING NOTE DATE OF NOTE: FEB 29, 2024@09:10 ENTRY DATE: FEB 29, 2024@09:10:58 AUTHOR: LAUREN MCADAMS COSIGNER: URGENCY: STATUS: COMPLETED The patient was [...] of active outpatient prescriptions dispensed from this [facility] (local) and dispensed from another [place] or DoD facility (remote) as well as inpatient orders (local pending and active), local clinic medications, locally documented non-VA medications, and local prescriptions that have or been discontinued in the past 90 days. Non-VA Meds Last Documented On: Data not found NOTE The display of VA prescriptions dispensed from another [place] or DoD facility (remote) is limited to active outpatient prescription entries matched to National Drug File at the originating site and may not include some items such as investigational drugs, compounds, etc. NOT INCLUDED IN THIS LIST: Medications self-entered by the patient into personal health records (i.e. [employer]) are NOT included in this list. Non-VA medications documented outside this [place], remote inpatient orders (regardless of status) and remote clinic medications are NOT included in this list. The patient and provider must always discuss medications the patient is taking, regardless of where the medication was dispensed or obtained. OUTPT ALOH 160/MG CARB 105MG CHEW TAB (Status = Active) CHEW 1 TABLET BY MOUTH AFTER MEALS NEEDED FOR INDIGESTION/REFLUX Rx# [id number] Last Released: 02/06/24 Qty/Days Supply: 100/30 Rx Expiration Date: 10/26/24 Refills Remainin Indication: FOR STOMACH OUTPT CEPHALEXIN 500MG CAP (Status = Active) TAKE ONE CAPSULE BY MOUTH THREE TIMES A DAY FOR SKIN OR SOFT TISSUE INFECTION Rx# [id number] Last Released: 02/28/24 Qty/Days Supply: 03/11 Rx Expiration Date: 03/29/24 Refills Remainin Indication: FOR SKIN OR SOFT TISSUE INFECTION OUTPT CHOLECALCIF 25MCG (D3-1,000UNIT) TAB (Status = Discontinued) TAKE FOUR TABLETS BY MOUTH DAILY FOR VITAMIN D SUPPLEMENT Rx# [id number] Last Released: 11/30/23 Qty/Days Supply: 400/90 Rx Expiration Date: 01/11/24 Refills Remainin OUTPT CHOLECALCIF 25MCG (D3-1,000UNIT) TAB (Status = Active) TAKE FOUR TABLETS BY MOUTH DAILY FOR VITAMIN D SUPPLEMENT Rx# [id number] Last Released: 02/19/24 Qty/Days Supply: 400/90 Rx Expiration Date: 02/14/25 Refills Remainin OUTPT CLINDAMYCIN PHOSPHATE 1% TOP GEL (Status = Discontinued) APPLY SMALL AMOUNT TO AFFECTED AREA TWICE A DAY FOR INFECTION Rx# [id number] Last Released: 04/24/23 Qty/Days Supply: 60/30 Rx Expiration Date: 03/15/24 Refills Remainin Indication: FOR INFECTION OUTPT CLOTRIMAZOLE 1% TOP SOLN (Status = Active) APPLY SMALL AMOUNT TO AFFECTED AREA TWICE A DAY FOR FUNGAL INFECTION Rx# [id number] Last Released: 02/05/24 Qty/Days Supply: Rx Expiration Date: 07/13/24 Refills Remainin Indication: FOR FUNGAL INFECTION OUTPT CYANOCOBALAMIN 1000MCG TAB (Status = Discontinued) TAKE ONE TABLET BY MOUTH DAILY FOR VITAMIN B12 SUPPLEMENT Rx# [id number] Last Released: 12/03/23 Qty/Days Supply: Rx Expiration Date: 07/16/24 Refills Remainin Indication: FOR VITAMIN B12 SUPPLEMENT OUTPT CYANOCOBALAMIN 1000MCG TAB (Status = Active) TAKE ONE TABLET BY MOUTH DAILY FOR VITAMIN B12 SUPPLEMENT Rx# [id number] Last Released: Supply: Rx Expiration Date: 02/14/25 Refills Remainin Indication: FOR VITAMIN B12 SUPPLEMENT OUTPT DICLOFENAC NA 1% TOP GEL (Status = Discontinued) APPLY SMALL AMOUNT TO AFFECTED AREA EVERY 6 HOURS NEEDED FOR SHOULDER PAIN Rx# [id number] Last Released: 11/30/23 Qty/Days Supply: 300/90 Rx Expiration Date: 01/11/24 Refills Remainin OUTPT DICLOFENAC NA 1% TOP GEL (Status = Active) APPLY SMALL AMOUNT TO AFFECTED AREA EVERY 6 HOURS NEEDED FOR SHOULDER PAIN Rx# [id number] Last Released: 02/18/24 Qty/Days Supply: 300/90 Rx Expiration Date: 02/14/25 Refills Remainin OUTPT FLUTICASONE PROP 50MCG 120D NASAL INHL (Status = Discontinued) USE 2 SPRAYS IN EACH NOSTRIL DAILY FOR NASAL ALLERGY Rx# [id number] Last Released: 11/30/23 Qty/Days Supply: Rx Expiration Date: 01/11/24 Refills Remainin OUTPT FLUTICASONE PROP 50MCG 120D NASAL INHL (Status = Active) USE 2 SPRAYS IN EACH NOSTRIL DAILY FOR NASAL ALLERGY Rx# [id number] Last Released: 02/19/24 Qty/Days Supply: 3 Rx Expiration Date: 02/14/25 Refills Remainin OUTPT GABAPENTIN 300MG CAP (Status = Discontinued) TAKE ONE CAPSULE BY MOUTH EVERY MORNING AND TAKE ONE CAPSULE AT NOON AND TAKE TWO CAPSULES EVERY EVENING FOR PAIN Rx# [id number] Last Released: 02/07/24 Qty/Days Supply: 120/30 Rx Expiration Date: 10/23/24 Refills Remainin Indication: FOR NERVE PAIN OUTPT GABAPENTIN 300MG CAP (Status = Active) TAKE ONE CAPSULE BY MOUTH EVERY MORNING AND TAKE ONE CAPSULE AT NOON AND TAKE TWO CAPSULES EVERY EVENING FOR PAIN Rx# [id number] Last Released: 02/16/24 Qty/Days Supply: 120/30 Rx Expiration Date: 02/14/25 Refills Remainin Indication: FOR NERVE PAIN OUTPT HCTZ 12.5MG/LOSARTAN 100MG TAB (Status = Discontinued) TAKE 1 TABLET BY MOUTH DAILY FOR BLOOD PRESSURE/HEART Rx# [id number] Last Released: 12/01/23 Qty/Days Supply: 90/90 Rx Expiration Date: 07/16/24 Refills Remainin Indication: FOR BLOOD PRESSURE/HEART OUTPT HCTZ 12.5MG/LOSARTAN 100MG TAB (Status = Active) TAKE 1 TABLET BY MOUTH DAILY FOR BLOOD PRESSURE/HEART Rx# [id number] Last Released: Qty/Days Supply: 90/90 Rx Expiration Date: 02/14/25 Refills Remainin Indication: FOR BLOOD PRESSURE/HEART OUTPT HYDROPHILIC (EQV EUCERIN) TOP CREAM (Status = Discontinued) APPLY SMALL AMOUNT TO AFFECTED AREA TWICE A DAY NEEDED FOR DRY SKIN Rx# [id number] Last Released: 04/23/23 Qty/Days Supply: 454/30 Rx Expiration Date: 01/11/24 Refills Remainin OUTPT LIDOCAINE 5% 5IN X 6IN PATCH (Status = Discontinued) APPLY 2 PATCHES TO SKIN DAILY FOR PAIN -LEAVE ON 12 HOURS, THEN REMOVE FOR 12 HOURS Rx# [id number] Last Released: 11/30/23 Qty/Days Supply: 60/30 Rx Expiration Date: 01/11/24 Refills Remainin Indication: FOR PAIN OUTPT LIDOCAINE 5% 5IN X 6IN PATCH (Status = Active) APPLY 2 PATCHES TO SKIN DAILY FOR PAIN -LEAVE ON 12 HOURS, THEN REMOVE FOR 12 HOURS Rx# [id number] Last Released: 02/27/24 Qty/Days Supply: 60/30 Rx Expiration Date: 02/14/25 Refills Remainin Indication: FOR PAIN OUTPT LORATADINE 10MG TAB (Status = Discontinued) TAKE ONE TABLET BY MOUTH DAILY FOR ALLERGIES Rx# [id number] Last Released: 11/30/23 Qty/Days Supply: Rx Expiration Date: 07/16/24 Refills Remainin OUTPT LORATADINE 10MG TAB (Status = Active) TAKE ONE TABLET BY MOUTH DAILY FOR ALLERGIES Rx# [id number] Last Released: Qt/Days Supply: 90 Rx Expiration Date: 02/14/25 Refills Remainin OUTPT METFORMIN HCL 1000MG TAB (Status = Discontinued) TAKE ONE TABLET BY MOUTH TWICE A DAY FOR DIABETES Rx# [id number] Last Released: 11/30/23 Qty/Days Supply: 180 Rx Expiration Date: 01/11/24 Refills Remainin OUTPT METFORMIN HCL 1000MG TAB (Status = Active) TAKE ONE TABLET BY MOUTH TWICE A DAY FOR DIABETES Rx# [id number] Last Released: 02/19/24 Qty/Days Supply: Rx Expiration Date: 02/14/25 Refills Remainin OUTPT MIRTAZAPINE 15MG TAB (Status = Discontinued) TAKE ONE-HALF TABLET BY MOUTH AT BEDTIME FOR SLEEP Rx# [id number] Last Released: 10/26/23 Qty/Days Supply: 45 Rx Expiration Date: 12/26/23 Refills Remainin Indication: FOR SLEEP OUTPT MIRTAZAPINE 15MG TAB (Status = Active/Suspended) TAKE ONE-HALF TABLET BY MOUTH AT BEDTIME FOR SLEEP Rx# [id number] Last Released: 01/17/24 Qty/Days Supply: 45 Rx Expiration Date: 12/27/24 Refills Remainin Indication: FOR SLEEP OUTPT MUPIROCIN 2% OINT (Status = Active) APPLY SMALL AMOUNT TO AFFECTED AREA DAILY TO PREVENT INFECTION -APPLY DAILY TO TREATMENT SITES AFTER CLEANING. THIS IS A TOPICAL ANTIBIOTIC. Rx# [id number] Last Released: 02/19/24 Qty/Days Supply: Rx Expiration Date: 01/22/25 Refills Remainin Indication: TO PREVENT INFECTION OUTPT PANTOPRAZOLE NA 40MG EC TAB (Status = Active) TAKE ONE TABLET BY MOUTH TWICE A DAY 30 MINUTES BEFORE A MEAL FOR STOMACH -TAKE ON AN EMPTY STOMACH. Rx# [id number] Last Released: 11/30/23 Qty/Days Supply: Rx Expiration Date: 06/26/24 Refills Remainin Indication: FOR STOMACH OUTPT PIOGLITAZONE HCL 30MG TAB (Status = Discontinued) TAKE ONE TABLET BY MOUTH DAILY FOR DIABETES Rx# [id number] Last Released: 12/01/23 Qty/Days Supply: Rx Expiration Date: 01/11/24 Refills Remainin Indication: FOR BLOOD SUGAR OUTPT PIOGLITAZONE HCL 30MG TAB (Status = Active) TAKE ONE TABLET BY MOUTH DAILY FOR DIABETES Rx# [id number] Last Released: Qt Supply: Rx Expiration Date: 02/14/25 Refills Remainin Indication: FOR BLOOD SUGAR OUTPT PRAZOSIN HCL 5MG CAP (Status = Discontinued) TAKE ONE CAPSULE BY MOUTH AT BEDTIME FOR NIGHTMARES Rx# [id number] Last Released: 10/26/23 Qty/Days Supply: Rx Expiration Date: 12/26/23 Refills Remainin Indication: FOR NIGHTMARES OUTPT PRAZOSIN HCL 5MG CAP (Status = Active/Suspended) TAKE ONE CAPSULE BY MOUTH AT BEDTIME FOR NIGHTMARES Rx# [id number] Last Released: 01/17/24 Qty/Days Supply: Rx Expiration Date: 12/27/24 Refills Remainin Indication: FOR NIGHTMARES OUTPT SERTRALINE HCL 100MG TAB (Status = Discontinued) TAKE ONE AND ONE-HALF TABLETS BY MOUTH EVERY MORNING FOR MOOD Rx# [id number] Last Released: 10/11/23 Qty/Days Supply: 135/90 Rx Expiration Date: 12/26/23 Refills Remainin Indication: FOR MOOD OUTPT SERTRALINE HCL 100MG TAB (Status = Active/Suspended) TAKE ONE AND ONE-HALF TABLETS BY MOUTH EVERY MORNING FOR MOOD Rx# [id number] Last Released: 01/01/24 Qty/Days Supply: 135/90 Rx Expiration Date: 12/27/24 Refills Remainin Indication: FOR MOOD OUTPT TRAMADOL HCL 50MG TAB (Status = Active) TAKE ONE TABLET BY MOUTH EVERY 6 HOURS NEEDED FOR PAIN Rx# [id number] Last Released: 01/31/24 Qty/Days Supply: 20/5 Rx Expiration Date: 03/01/24 Refills Remainin Indication: FOR PAIN OUTPT TRIAMCINOLONE ACETONIDE 0.1% OINT (Status = Active) APPLY SMALL AMOUNT TO AFFECTED AREA TWICE A DAY FOR SKIN RASH Rx# [id number] Last Released: 02/07/24 Qty/Days Supply: Rx Expiration Date: 11/29/24 Refills Remainin Indication: FOR SKIN RASH SUPPLIES OUTPT ACCU-CHEK GUIDE (GLUCOSE) TEST STRIP (Status = Discontinued) USE 1 STRIP TO TEST BLOOD SUGAR 3-4 TIMES WEEKLY Rx# [id number] Last Released: 11/30/23 Qty/Days Supply: Rx Expiration Date: 01/11/24 Refills Remainin OUTPT ACCU-CHEK GUIDE (GLUCOSE) TEST STRIP (Status = Active) USE 1 STRIP TO TEST BLOOD SUGAR 3-4 TIMES WEEKLY Rx# [id number] Last Released: 02/19/24 Qty/Days Supply: Rx Expiration Date: 02/14/25 Refills Remainin /[place]/ Lauren Mcadams [facility] [employer] OPERATOR Signed: 02/29/2024 09:[address] [facility]
--- OUTSIDE RECORDS SUMMARY | 2024-07-24 21:29 | XMS_ITS ---
Author Name [facility] [place] Organization [facility] [place] [place] Address [address] [place] [id number] Care Team Providers Care Rim Turning Finisher Name Role Phone CYNDI STEINBERG Primary Care [...] PART A Oct 14, 2009 PART A [id number] Alex GALLEGO PATIENT MEDICARE (WNR) MEDICARE (M) PART B Oct 14, 2009 PART B [id number] Alex GALLEGO PATIENT MEDICARE (WNR) MEDICARE (M) PART B Oct 14, 2009 PART B [id number] Alex GALLEGO PATIENT MEDICARE (WNR) MEDICARE (M) PART A Oct 14, 2009 PART A [id number] [phone] Alex GALLEGO PATIENT MEDICARE (WNR) MEDICARE (M) PART A Oct 14, 2009 PART A [id number] Alex GALLEGO PATIENT MEDICARE (WNR) MEDICARE (M) PART B Oct 14, 2009 PART B [id number] Alex GALLEGO PATIENT Selected Encounter This section includes the information on record at [place] for the Encounter. Date/Time Encounter Type Encounter Description Reason Pro vider Source Jun 05, 2024 11:57 AM Outpatient Encounter ADMIN PAT ACTIVTIES (MASNONCT) IHE Encounter Template Text not used by [place] Plan of Treatment: Future Appointments (+ 6 [...] 08:00 AM AMBULATORY - SURGERY LEXIN GTON [facility] Jun 10, 2024 08:50 AM [facility] Jun 10, 2024 11:00 AM AMBULATORY - PS[facility]CHIATRY [facility] Jun 20, 2024 09:00 AM AMBULATORY - NONE [place] [facility] Jun 24, 2024 08:00 AM AMBULATORY - NONE [place] [facility] Jun 30, 2024 11:00 AM AMBULATORY - NONE [place] [facility] Jun 30, 2024 03:00 PM AMBULATORY - MEDICINE JAYNE NGTON-CDD [facility] Jul 01, 2024 09:00 AM AMBULATORY - MEDICINE JAYNE NGTON-CDD [facility] Jul 07, 2024 10:00 AM AMBULATORY - PSYCHIATRY [facility] Jul 08, 2024 10:00 AM [facility] Jul 10, 2024 08:30 AM AMBULATORY - MEDICINE JAYNE NGTON-CDD [facility] Jul 24, 2024 03:00 PM AMBULATORY - PSYCHIATRY [facility] Aug 05, 2024 09:00 AM [facility]UL[facility] Aug 11, 2024 10:00 AM AMBULATORY - PSYCHIATRY COREY NICHOLAS [facility] Aug 12, 2024 09:00 AM AMBULATORY - MEDICINE JAYNE SINGH [facility] August 18, 2024 09:00 AM AMBULATORY - SURGERY LARRY HOLLOWAY [facility] September 02, 2024 08:20 AM AMBULATORY - SURGERY LARRY HOLLOWAY [facility] Oct 01, 2024 09:00 AM AMBULATORY - NONE DEANNEINGLIV Rios [facility] Oct 30, 2024 09:00 AM AMBULATORY - PSYCHIATRY COREY NICHOLAS [facility] Lab Results: +/- 30 days of [...] Type Comment Jun 30, 2024 03:27 PM [facility] BNP (STODDARD) PLASMA Specimen Type: PLASMA Comment: BNP results less than or equal to 100 pg/ml are customer service representative teacher of normal values in patients without CHF. BNP results greater than 100 pg/ml are considered abnormal and suggestive of CHF. Higher BNP concentrations in the first 72 hours after Acute Coronary Syndrome are associated with an increased risk of , myocardial infarction and CHF. Ordering Provider: SACHI SAINZ Report Released Date/Time: Jun 30, 2024 03:21 PM Reporting Lab: [address] [address] Performing Lab: [address] [address] BNP (STODDARD) 22 pg/mL 0-100 Jun 30, 2024 03:27 PM [facility] CBC/PLT BLOOD Specimen Type: BLOOD No comment entered. Ordering Provider: SACHI SAINZ Report Released Date/Time: Jun 30, 2024 03:21 PM Reporting Lab: [address] [address] Performing Lab: [address] [address] WBC 7.2 10*3/uL 5.0-10.0 RBC 4.85 10*6/uL 4.6-6.2 HGB 14.7 g/dL 14.0-18.0 HCT 43.8 42.0-52.0 MCV 90.3 fL 80.0-94.0 MCH 30.3 pg 27.0-31.0 MCHC 33.6 g/dL 32.0-36.0 PLT 235 10*3/uL 150-450 MPV 10.6 fL 9.0-13.1 RDW 14.8 11.0-16.0 NRBC 0.0 0.0-0.0 Jun 30, 2024 03:27 PM JESSE [facility] PANEL 1 PLASMA Specimen Type: PLASM A [...] Jun 30, 2024 03:21 PM Reporting Lab: [address] [address] Performing Lab: [address] [address] CREATININE 1.43 mg/dL H 0.72-1.25 UREA NITROGEN 22 mg/dL 9-25 GLUCOSE 164 mg/dL H 74-100 SODIUM 139 mmol/L 136-145 POTASSIUM 3.7 mmol/L 3.5-5.1 CHLORIDE 102 mmol/L 98-107 CO2 27 mmol/L 22-29 CALCIUM 9.8 mg/dL 8.4-10.2 ANION GAP 10 meq/L 3-19 eGFR (CKD-EPI) 50 May 15, 2024 09:46 AM [facility] MAGNESIUM PLASMA Specimen Type: PLASM [...] May 07, 2024 10:35 AM Reporting Lab: [address] [address] Performing Lab: [address] [address] MAGNESIUM 1.8 mg/dL 1.6-2.6 May 15, 2024 09:46 AM [facility] BNP ([employer]) PLASMA Specimen Type: PLASMA Comment: BNP results less than or equal to 100 pg/ml are customer service representative teacher of normal values in patients without CHF. BNP results greater than 100 pg/ml are considered abnormal and suggestive of CHF. Higher BNP concentrations in the first 72 hours after Acute Coronary Syndrome are associated with an increased risk of , myocardial infarction and CHF. Ordering Provider: CYNDI STEINBERG Report Released Date/Time: May 07, 2024 10:35 AM Reporting Lab: [address] [address] Performing Lab: [address] [address] BNP (STODDARD) 29 pg/mL 0-100 May 15, 2024 09:[facility] Specimen Type: PLASM A [...] May 07, 2024 10:35 AM Reporting Lab: [address] [address] Performing Lab: [address] [address] CREATININE 1.54 mg/dL H 0.72-1.25 UREA NITROGEN [...] Provider Source May 29, 2024 05:[address] PERFORMED BY OTHER FACILITY: ERIK GALLEGO [facility] [place] [id number] -1945 M Exm Date: MAY 29, 2024@17:13 Req Phys: CYNDI STEINBERG Loc: [facility] PACT LULU 1-2 (Req'g Lo Img Loc: OUTSIDE2 LD CT Service: Unknown (Case [id number] COMPLETE) [id number] CT PERFORMED BY OTHER FACIL(CT Detailed) CPT:51655 Reason for Study: Exam imported from outside Clinical History: Original Data for Imported Study Patient Name: ERIK GALLEGO Date: 1945 Sex: M Study Date: 05/29/24 Study Time: 05:13:55 Study Description: CT CHEST PE/ABD/PEL W Referring Physician: TAMMI GEE Series 1: 2 CT files, description: CLERICAL STOCK INSPECTOR Series 2: 216 CT files, description: 5.0mm [...] Diagnostic Code: VERIFIED BY: / *ELECTRONICALLY FILED* [facility] May 27, 2024 08:07 AM MYOVIEW(1): ERIK GALLEGO [id number] -1945 M Exm Date: MAY 27, 2024@08:07 Req Phys: CYNDI STEINBERG Loc: DEANNE POD ATTORNEY RECRUITER (Req'g Loc) Img Loc: NUCLEAR MEDICINE Service: Unknown [place] [id number] (Case [id number] COMPLETE) MYOVIEW(1) (NM Detailed) CPT:A9502 Reason for [...] 27, 2024 Date Verified: MAY 27, 2024 Water Resource Agent E-Sig: Report: STUDY: GXT REPORT: Patient [...] Staff: ANIA ANDRADE APRN, Cardiology Verified by repair cameraman for ANIA ANDRADE /ANIA ESPINOZA-CDD [facility] May 27, 2024 08:07 AM 36733(D) MYOCARDIAL SPECT(MULTIPLE): ERIK GALLEGO [id number] -1945 M Ex Date: MAY 27, 2024@08:07 Req Phys: CYNDI STEINBERG Loc: [facility] POD ATTORNEY RECRUITER (Req'g Loc) Img Loc: NUCLEAR MEDICINE Service: [place] [address] THIS IS AN AMENDED REPORT (Case [id number] COMPLETE) 76706(D) MYOCARDIAL SPECT(MULTIPL(NM Detailed) CPT:32496 Proc Modifiers : GXT Reason for Study: [...] 05, 2024 Date Verified: JUN 05, 2024 Water Resource Agent E-Sig: Report: [facility], [place], [place] STUDY: Treadmill Exercise SPECT Tc-99m myoview [...] performed with tomographic and three-dimensional reconstructions with [employer] NM/CT 640 system. The patient performed treadmill [...] data sets in addition to the conventional the-avbbbulbcho-auopxfsoz images. Both filtered back projection and iterative [...] ventricular cavity. 4. SPECT images: Attenuation-corrected and yey-zckptirzujc-ktouhjcmx SPECT images were evaluated. SPECT images demonstrate normal myocardial perfusion. There is a medium size, mild intensity defect located in the omujm-zx-kcodoc inferior myocardium . The defect is fixed [...] Kerri Mena MD, Cardiology Attending /KERRI LONG-LOWELL [facility] May 27, 2024 08:07 AM TC-99M FROM NON-HIGHLY ENRICHED URANIUM SOURCE: ERIK GALLEGO [id number] -1945 M Ex Date: MAY 27, 2024@08:07 Req Phys: CYNDI STEINBERG Loc: [facility] POD ATTORNEY RECRUITER (Req'g Loc) Img Loc: NUCLEAR MEDICINE Service: Unknown [place] [id number] THIS IS AN AMENDED REPORT (Case [id number] COMPLETE) TC-99M FROM NON-HIGHLY ENRICHED U(NM Detailed) [...] 05, 2024 Date Verified: JUN 05, 2024 Water Resource Agent E-Sig: Report: [facility], [place], [place] STUDY: Treadmill Exercise SPECT Tc-99m myoview [...] performed with tomographic and three-dimensional reconstructions with [employer] NM/CT 640 system. The patient performed treadmill [...] data sets in addition to the conventional cav-mznzuybritz-pdzwupxdf images. Both filtered back projection and iterative [...] ventricular cavity. 4. SPECT images: Attenuation-corrected and hmp-qvtivfsmpmy-zoguhywol SPECT images were evaluated. SPECT images demonstrate normal myocardial perfusion. There is a medium size, mild intensity defect located in the hxmom-ku-vhgbfr inferior myocardium . The defect is fixed [...] Kerri Mena MD, Cardiology Attending /KERRI LONG-Joseph [facility] May 27, 2024 08:07 AM MYOVIEW(2): ERIK GALLEGO [id number] -1945 M Ex Date: MAY 27, 2024@08:07 Req Phys: CYNDI STEINBERG Loc: [facility] POD ATTORNEY RECRUITER (Req'g Loc) Img Loc: NUCLEAR MEDICINE Service: [place] [address] THIS IS AN AMENDED REPORT (Case [id number] COMPLETE) MYOVIEW(2) (NM Detailed) CPT:A9502 Reason for [...] 05, 2024 Date Verified: JUN 05, 2024 Water Resource Agent E-Sig: Report: [facility], [place], [place] STUDY: Treadmill Exercise SPECT Tc-99m myoview [...] performed with tomographic and three-dimensional reconstructions with [employer] NM/CT 640 system. The patient performed treadmill [...] data sets in addition to the conventional hwy-erdfdiowvpk-tqufuyour images. Both filtered back projection and iterative [...] ventricular cavity. 4. SPECT images: Attenuation-corrected and tnz-eswchveguog-rtccydpxq SPECT images were evaluated. SPECT images demonstrate normal myocardial perfusion. There is a medium size, mild intensity defect located in the jilub-xs-uicaec inferior myocardium . The defect is fixed [...] BY: Kerri Mena MD, Cardiology Attending /[facility] May 27, 2024 08:07 AM CARD. STRESS TEST W/TREADMILL/...: ERIK GALLEGO [id number] -1945 M Ex Date: MAY 27, 2024@08:07 Req Phys: CYNDI STEINBERG Loc: [facility] POD ATTORNEY RECRUITER (Req'g Loc) Img Loc: NUCLEAR MEDICINE Service: [place] [address] THIS IS AN AMENDED REPORT (Case [id number] COMPLETE) CARD. STRESS TEST W/TREADMILL/...(NM Detailed) CPT:00186 Reason for Study: SEE CLINICAL HISTORY Clinical [...] 05, 2024 Date Verified: JUN 05, 2024 Water Resource Agent E-Sig: Report: [facility], [place], [place] STUDY: Treadmill Exercise SPECT Tc-99m myoview [...] performed with tomographic and three-dimensional reconstructions with [employer] NM/CT 640 system. The patient performed treadmill [...] data sets in addition to the conventional nje-dqnemdecwtt-jsaxodkyn images. Both filtered back projection and iterative [...] ventricular cavity. 4. SPECT images: Attenuation-corrected and tbi-kbxdryliwco-lkvqrmpbk SPECT images were evaluated. SPECT images demonstrate normal myocardial perfusion. There is a medium size, mild intensity defect located in the zfjen-mu-zvmccr inferior myocardium . The defect is fixed [...] Kerri Mena MD, Cardiology Attending /KERRI LONG-Joseph [facility] May 15, 2024 09:57 AM CHEST TWO(2) VIEW PA&LAT: EIRK GALLEGO [id number] -1945 M Ex Date: MAY 15, 2024@09:57 Req Phys: CYNDI STEINBERG Loc: Veraf[place] PACT PHONE LULU Rodriguez'tito Img Loc: [facility] RADIOLOGY Service: [place] [address] (Case [id number] COMPLETE)CHEST TWO(2) VIEW PA&LAT (RAD Detailed) CPT:57108 Reason for Study: dyspnea Clinical History: Report Status: Verified Date Reported: MAY 17, 2024 Date Verified: MAY 17, 2024 Water Resource Agent E-Sig: Report: CHEST TWO(2) VIEW PA&LAT, 05/15/2024 10:02 AM EST INDICATION: dyspnea COMPARISON: April 16, 2024 Impression: Calcified granuloma right lung apex. No edema or pneumonia. No pleural effusion or pneumothorax. Heart size normal. No acute osseous abnormality. Primary Diagnostic Code: NO ALERT REQUIRED Primary Interpreting Staff: KAILYN STEELE, Staff Physician Verified by repair cameraman for KAILYN STEELE /KAILYN AVILES [facility] Encounter Notes: All associated encounter notes This section contains the clinical notes associated to the Encounter. Date/Time Encounter Note(s) Provider Source May 29, 2024 11:57 AM NONVA NOTE: LOCAL TITLE: OUTSIDE MEDICAL RECORD-FEE OUTPATIENT STANDARD TITLE: NONVA NOTE DATE OF NOTE: MAY 29, 2024@11:57 ENTRY DATE: JUN 05, 2024@11:58:02 AUTHOR: JOEY DESAI EXP COSIGNER: URGENCY: STATUS: COMPLETED The scanned document may be viewed in [employer]. /peyton/ JOEY DESAI REGISTERED NURSE TEACHER Signed: 06/05/2024 11:58 JOEY DESAI[facility]
--- OUTSIDE RECORDS SUMMARY | 2024-07-24 21:29 | XMS_ITS | Encounter Summary ---
Author Name [facility] [place] [facility] [place] [facility] [place] Address [address] [place] [address] Care Team Providers Care Wedger And Gluer Name Role Phone CYNDI STEINBERG Primary [...] PART A Oct 14, 2009 PART A [id number] Alex MISHRA PATIENT MEDICARE (WNR) MEDICARE (M) PART B Oct 14, 2009 PART B [id number] Alex MISHRA PATIENT MEDICARE (WNR) MEDICARE (M) PART B Oct 14, 2009 PART B [id number] Alex MISHRA PATIENT MEDICARE (WNR) MEDICARE (M) PART A Oct 14, 2009 PART A [id number] Alex MISHRA PATIENT MEDICARE (WNR) MEDICARE (M) PART B Oct 14, 2009 PART B [id number] Alex MISHRA PATIENT MEDICARE (WNR) MEDICARE (M) PART A Oct 14, 2009 PART A [id number] Alex MISHRA PATIENT Selected Encounter This section includes the information on record at [place] for the Encounter. Date/Time Encounter Type Encounter Description Reason Provider Source Apr 01, 2024 10:00 AM PSYTX W PT [facility]UTES [facility] - IND ICD-10-CM F43.10 Post-traumatic stress disorder, unspecified BENITEZ DUNN Jennifer Encounter Template Text not used by [place] Assessments - Encounter Diagnoses This section includes the primary and secondary diagnoses documented for the Encounter. Date/Time Primary/Secondary Diagnosis Diagnosis Name Provider Source Apr 21, 2024 02:06 PM PRIMARY Post-traumatic stress disorder, unspecified [facility] Plan of Treatment: Future Appointments (+ 6 [...] Appointment Type Appointme nt Facility Name Apr 15, 2024 09:00 AM AMBULATORY - PSYCHIATRY [facility] Apr 16, 2024 11:35 AM AMBULATORY - MEDICINE [facility] Apr 25, 2024 08:30 AM AMBULATORY - SURGERY [facility] Apr 29, 2024 10:00 AM AMBULATORY - MEDICINE [facility] May 06, 2024 10:00 AM AMBULATORY - PSYCHIATRY [facility] May 07, 2024 10:00 AM AMBULATORY - MEDICINE [facility] May 15, 2024 10:30 AM [facility] May 20, 2024 08:00 AM [facility] [place] [facility] May 20, 2024 10:00 AM AMBULATORY - MEDICINE [facility] May 27, 2024 08:00 AM [facility] [place] [facility] Jun 06, 2024 08:00 AM AMBULATORY - SURGERY [place] [facility] Jun 10, 2024 08:50 AM AMBULATORY - MEDICINE [facility] Jun 10, 2024 11:00 AM [facility] Jun 20, [facility]24 09:00 AM [facility] [place] [facility] [facility] Jun 24, 2024 08:00 AM [facility] [place] [facility] Jun 30, 2024 11:00 AM [facility] [place] [facility] [facility] Jun 30, 2024 03:00 PM AMBULATORY - MEDICINE [facility] Jul 01, 2024 09:00 AM AMBULATORY - MEDICINE [facility] Jul 07, 2024 10:00 AM AMBULATORY - PSYCHIATRY [facility] Jul 08, 2024 10:00 AM AMBULATORY - MEDICINE [facility] Lab Results: +/- [...] Unit Interpretation Reference Range Specimen Type Comment Apr 29, 2024 10:55 AM [facility] URINALYSIS URINE Specimen Type: URINE Comment: Microscopic not indicated Ordering Provider: ERIK KIM Report Released Date/Time: Apr 16, 2024 01:19 PM Reporting Lab: [address] [address] Performing Lab: [address] [address] URINE COLOR Colorless Colorless-Yellow APPEARANCE Clear Clear UROBILINOGEN Normal mg/dL Normal URINE BLOOD Negative Negative URINE BILIRUBIN Negative Negative URINE KETONES Negative mg/dL Negative URINE PROTEIN Negative mg/dL Negative-Tr john URINE PH 7.0 4.5-8.0 URINE NITRITE Negative Negative URINE LEUKOCYTE EST Negative Negative SPECIFIC GRAVITY 1.005 1.005-1.030 URINE GLUCOSE Negative mg/dL Negative Apr 29, 2024 10:49 AM [facility] LACTIC ACID PLASMA Specimen Type : PLASMA Comment: ~2 hours from now Ordering Provider: ERIK KIM Report Released Date/Time: Apr 16, 2024 01:19 PM Reporting Lab: [address] [address] Performing Lab: [address] [address] LACTIC ACID 1.4 mmol/L 0.5-2.2 Apr 29, 2024 10:49 AM [facility] HIGH SENSITIVITY TROPONIN I PLASMA Specimen Type: [...] Apr 16, 2024 01:19 PM Reporting Lab: [address] [address] Performing Lab: [address] [address] HIGH SENSITIVITY TROPONIN I <4 4-35 Apr 29, 2024 10:49 AM PSYCHIATRIC MAGNESIUM PLASMA Specimen Type: PLASM A Comment: [...] Apr 29, 2024 10:33 AM Reporting Lab: [address] [address] Performing Lab: [address] [address] MAGNESIUM 1.7 mg/dL 1.6-2.6 Apr 29, 2024 10:49 AM [facility] PANEL 1 PLASMA Specimen Type: PLASM [...] Apr 29, 2024 10:33 AM Reporting Lab: [facility] [address] [address] Performing Lab: [address] [address] CREATININE 1.35 mg/dL H 0.72-1.25 UREA NITROGEN 11 mg/dL 9-25 GLUCOSE 114 mg/dL H 74-100 SODIUM 141 mmol/L 136-145 POTASSIUM 4.2 mmol/L 3.5-5.1 CHLORIDE 105 mmol/L 98-107 CO2 29 mmol/L 22-29 CALCIUM 9.7 mg/dL 8.4-10.2 ANION GAP 7 meq/L 3-19 eGFR (CKD-EPI) 53 Apr 16, 2024 01:17 PM [facility] COVID-19 AND FLU/RSV DIAGNOSTIC PANEL NASOPH ARYNX [...] Food and Drug Administration's Emergency Use Authorization. 9Flava Genexpert (596) Ordering Provider: ERIK KIM Report Released Date/Time: Apr 16, 2024 01:13 PM Reporting Lab: [address] [address] Performing Lab: [address] [address] COVID-19 PCR (FLUVID) Negative Negative FLU A PCR (FLUVID) Negative Negative FLU B PCR (FLUVID) Negative Negative RSV PCR (FLUVID) Negative Negative Apr 16, 2024 12:08 PM [facility] LACTIC ACID PLASMA Specimen Type : PLASMA No comment entered. Ordering Provider: ERIK KIM Report Released Date/Time: Apr 16, 2024 01:19 PM Reporting Lab: [address] [address] Performing Lab: [address] [address] LACTIC ACID 2.8 mmol/L H 0.5-2.2 Apr 16, 2024 12:08 PM [facility] PROTHROMBIN TIME PLASMA Specimen Ty pe: PLASMA No comment entered. Ordering Provider: ERIK KIM Report Released Date/Time: Apr 16, 2024 01:19 PM Reporting Lab: [address] [address] Performing Lab: [address] [address] PT PATIENT 13.2 s 11.7-14.4 INTERNATIONAL NORMALIZED RATIO 1.02 0 .87-1.14 Apr 16, 2024 12:08 PM [facility] PHOSPHORUS PLASMA Specimen Type: PLASM A Comment: [...] Apr 16, 2024 01:19 PM Reporting Lab: [address] [address] Performing Lab: [address] [address] PHOSPHORUS 2.5 mg/dL 2.3-4.7 Apr 16, 2024 12:08 PM [facility] CK TOTAL PLASMA Specimen Type: PLASM A [...] Apr 16, 2024 01:19 PM Reporting Lab: [address] [address] Performing Lab: [address] [address] CK TOTAL 64 U/L 30-200 Apr 16, 2024 12:08 PM [facility] MAGNESIUM PLASMA Specimen Type: PLASM A Comment: [...] I information resource can be reached in [facility] in the Tools menu, under the Education [...] Apr 16, 2024 01:19 PM Reporting Lab: [address] [address] Performing Lab: [address] [address] MAGNESIUM 1.5 mg/dL L 1.6-2.6 Apr 16, 2024 12:08 PM [facility] HIGH SENSITIVITY TROPONIN I PLASMA Specimen Ty [...] Apr 16, 2024 01:19 PM Reporting Lab: [address] [address] Performing Lab: [address] [address] HIGH SENSITIVITY TROPONIN I <4 4-35 Apr 16, 2024 12:08 PM [facility] BNP (STODDARD) PLASMA Specimen Type : PLASMA Comment: BNP results less than or equal to 100 pg/ml are payable representative of normal values in patients without CHF. BNP results greater than 100 pg/ml are considered abnormal and suggestive of CHF. Higher BNP concentrations in the first 72 hours after Acute Coronary Syndrome are associated with an increased risk of , myocardial infarction and CHF. Ordering Provider: ERIK KIM Report Released Date/Time: Apr 16, 2024 01:38 PM Reporting Lab: [address] [address] Performing Lab: [address] [address] BNP (STODDARD) <10 pg/mL 0-100 Apr 16, 2024 12:08 PM [facility] AUTOMATED DIFF BLOOD Specimen Type : BLOOD Comment: ~STAT Ordering Provider: ERIK KIM Report Released Date/Time: Apr 16, 2024 01:19 PM Reporting Lab: [address] [address] Performing Lab: [address] [address] A-LYMPH % 14.8 L 24.0-44.0 A-MONO % 4.7 0.1-6.0 A-GRAN % 79.5 H 42.0-75.0 A-LYMPH # 0.94 10*3/uL L 1.20-3.40 A-MONO # 0.30 10*3/uL 0.00-0.60 A-GRAN # 5.07 10*3/uL 1.40-6.50 A-BASO % 0.2 0.0-3.0 A-BASO # 0.01 10*3/uL 0.00-0.20 A-EOS % 0.3 0.0-10.0 A-EOS # 0.02 10*3/uL 0.00-0.70 A-IG % 0.5 0.0-0.5 A-IG # 0.03 10*3/uL 0.00-0.06 Apr 16, 2024 12:08 PM [facility] CBC/PLT BLOOD Specimen Type: BLOOD Comment: ~STAT Ordering Provider: ERIK KIM Report Released Date/Time: Apr 16, 2024 01:19 PM Reporting Lab: [address] [address] Performing Lab: [address] [address] WBC 6.4 10*3/uL 5.0-10.0 RBC 5.02 10*6/uL 4.6-6.2 HGB 15.0 g/dL 14.0-18.0 HCT 44.3 42.0-52.0 MCV 88.2 fL 80.0-94.0 MCH 29.9 pg 27.0-31.0 MCHC 33.9 g/dL 32.0-36.0 PLT 208 10*3/uL 150-450 MPV 11.1 fL 9.0-13.1 RDW 14.1 11.0-16.0 NRBC 0.0 0.0-0.0 Apr 16, 2024 12:08 PM [facility] Specimen Type: PLASM A [...] Apr 16, 2024 01:19 PM Reporting Lab: [address] [address] Performing Lab: [address] [address] CREATININE 1.48 mg/dL H 0.72-1.25 UREA NITROGEN [...] and tobacco- related health factors from the [place] facility where the Encounter took place. Current Smoking Status This section includes the most current smoking, or tobacco-related health factor, from the [place] facility where the Encounter took place. Date/Time Current Smoking Status Comment Edis baker Feb 14, 2024 08:30 AM [facility] Tobacco Use History This section includes a history of the smoking, or tobacco-related health factors, that were collected on or before the date of the Encounter. The data comes from the [place] facility where the Encounter took place. Date/Time Smoking Status/Tobacco Use Comment F juany Feb 14, 2024 08:30 AM VA-TOBACCO QUIT [...] treatment facilities. Date/Time Radiology Report Provider Source Apr 16, 2024 01:47 PM SHOULDER-LEFT 2 OR MORE VIEWS: ERIK MISHRA [id number] -1945 M Exm Date: APR 16, 2024@13:47 Req Phys: LUPE MILES Loc: [facility]/ATT3/CD (Req'g Loc) Img Loc: [facility] RADIOLOGY Service: [place] [address] (Case [id number] COMPLETE) SHOULDER-LEFT 2 OR MORE VIEWS (RAD Detailed) CPT:41780 Reason for Study: LEFT SHOULDER PAIN Clinical History: Report Status: Verified Date Reported: APR 17, 2024 Date Verified: APR 17, 2024 Plastics Spreading Machine Operator E-Sig: Report: SHOULDER-LEFT 2 OR MORE VIEWS, 04/16/2024 3:06 PM EST INDICATION: LEFT SHOULDER PAIN COMPARISON: None Impression: No acute fracture or malalignment. Mild glenohumeral and AC joint degenerative change. Primary Diagnostic Code: NO ALERT REQUIRED Primary Interpreting Staff: ALFONZO STEELE, Staff Physician Verified by child and family counselor for ALFONZO STEELE /[facility] Apr 16, 2024 01:47 PM CHEST SINGLE(1) EW: ERIK MISHRA [id number] -1945 M Exm Date: APR 16, 2024@13:47 Req Phys: ERIK KIM Loc: ED/7A-4PM (Req'g Loc) Img Loc: [facility] RADIOLOGY Service: [place] [address] (Case [id number] COMPLETE) CHEST SINGLE(1) VIEW (RAD Detailed) CPT:22137 Proc Modifiers : PORTABLE EXAM Reason for Study: WEAKNESS, COUGH Clinical History: Report Status: Verified Date Reported: APR 17, 2024 Date Verified: APR 17, 2024 Plastics Spreading Machine Operator E-Sig: Report: CHEST SINGLE(1) VIEW, 04/16/2024 3:06 PM EST INDICATION: WEAKNESS, COUGH COMPARISON: February 10, 2023 FINDINGS: Support apparatus: None. Heart/Mediastinum: Normal size and contours. Lungs/Pleura: Patchy basilar opacities. No pleural effusion or pneumothorax. Upper abdomen: Unremarkable. Bones/Soft tissues: No acute abnormality. Impression: Bibasilar atelectasis or infiltration. Primary Diagnostic Code: SIGNIFICANT ABNORMALITY, ATTN NEEDED Primary Interpreting Staff: ALFONZO STEELE Staff Physician Verified by child and family counselor for ALFONZO STEELE [facility] Encounter Notes: All associated encounter notes This section contains the clinical notes associated to the Encounter. Date/Time Encounter Note(s) Provider Source Apr 01, 2024 10:39 AM MENTAL HEALTH NOTE : LOCAL TITLE: [facility] PSYCHOTHERAPY NOTE STANDARD TITLE: MENTAL HEALTH NOTE DATE OF NOTE: APR 01, 2024@10:39 ENTRY DATE: APR 01, 2024@10:39:38 AUTHOR: BENITEZ DUNN COSIGNER: URGENCY: STATUS: COMPLETED Date of Session: APR 01, 2024 Duration of Session: 55 min Session Number: 3 Diagnosis Addressed During Session: PTSD, chronic Session [...] homicidal ideation, intent, or plans. C-SSRS Screening [place]-Suicide Severity Rating Scale (C-SSRS Screener) 1. Over [...] Whole Health Interventions Session Content: Mr. Mishra said, Well I made it through ! This is a high risk time for him as his Apr 03 and he continues to grieve her . Made sure that there was family around for support. Has learned that his daughter is having a baby in September that will be named after him. This gives him something to look forward to. 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 Doing well. Therapeutic Intervention: Provided a supportive environment with reflective listening, normalization and validation. Assessed for symptoms and current stressors. Discussed healthy coping skills to manage stress and sleep. Assessed progress toward goals and ongoing therapeutic needs. Assessed for SI/HI. Encouraged [place] to call crisis line if needed. Patient Response to Treatment: Attentive and cooperative Progress Towards Treatment Goal: Stable, remains sober Plan and Scheduling Instructions: May 06 2024 @10:00 [facility] CORONADO SW#6 LD Pain management, if needed, is managed by primary care. Reason for Ordering Tests, Consults or Changes in Medications: No new orders or changes indicated at this time /[place]/ Benitez Dunn, BIOSECURITY OFFICER, ASPHALT DISTRIBUTOR OPERATOR, ACSW Licensed Clinical Information Director Signed: 04/01/2024 10:46 BENITEZ DUNN [facility]
--- OUTSIDE RECORDS SUMMARY | 2024-07-24 21:29 | XMS_ITS | Encounter Summary ---
Author Name [facility] [place] [facility] [place] Address [address] [place] [address] Care Team Providers Care Check Writer Name Role Phone CYNDI STEINBERG Primary Care [...] PART A Oct 14, 2009 PART A [id number] Alex GALLEGO PATIENT MEDICARE (WNR) MEDICARE (M) PART B Oct 14, 2009 PART B [id number] Alex GALLEGO PATIENT MEDICARE (WNR) MEDICARE (M) PART A Oct 14, 2009 PART A [id number] Alex GALLEGO PATIENT MEDICARE (WNR) MEDICARE (M) PART B Oct 14, 2009 PART B [id number] Alex GALLEGO PATIENT MEDICARE (WNR) MEDICARE (M) PART A Oct 14, 2009 PART A [id number] Alex GALLEGO PATIENT MEDICARE (WNR) MEDICARE (M) PART B Oct 14, 2009 PART B [id number] Alex GALLEGO PATIENT Selected Encounter This section includes the information on record at [place] for the Encounter. Date/Time Encounter Type Encounter Description Reason Provider Source May 20, 2024 08:00 AM DENTAL BITEWING FOUR IMAGES DENTAL ICD-10-CM K03.6 Deposits [accretions] on teeth ART WATSON Jennifer Encounter Template Text not used by [place] Assessments - Encounter Diagnoses This section includes the primary and secondary diagnoses documented for the Encounter. 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 LISSETTE,BEV [facility] May 20, 2024 08:48 AM SECONDARY Partial loss of teeth due to caries, class I ART WATSON [facility] Plan of Treatment: Future [...] Appointment Type Appointme nt Facility Name May 27, 2024 08:00 AM AMBULATORY - NONE [place] N-CDD [facility] Jun 06, 2024 08:00 AM AMBULATORY - SURGERY [place] [facility] Jun 10, 2024 08:50 AM AMBULATORY - MEDICINE [facility] SAMANTHA [facility] Jun 10, 2024 11:00 AM AMBULATORY - PSYCHIATRY [place] [facility] Jun 20, 2024 09:00 AM AMBULATORY - NONE [place] [facility] Jun 24, 2024 08:00 AM AM[place]ULATORY - NONE [place] [facility] Jun 30, 2024 11:00 AM AMBULATORY - NONE [place] [facility] Jun 30, 2024 03:00 PM AMBULATORY - MEDICINE JAYNE NGTON-CDD [facility] Jul 01, 2024 09:00 AM AMBULATORY - MEDICINE JAYNE NGTON-CDD [facility] Jul 07, 2024 10:00 AM [facility] 08, [facility]24 10:00 [facility] 10, [facility]24 08:30 AM AMBULATORY - MEDICINE JAYNE NGTON-CDD [facility] Jul 24, 2024 03:00 PM AMBULATORY - PSYCHIATRY [facility] Aug 05, 2024 09:00 AM AMBULATORY - MEDICINE JAYNE [facility] Aug 11, 2024 10:00 AM AMB[facility]ORY - PS[facility]CHIATRY [facility] Aug 12, 2024 09:00 AM [facility] August 18, 2024 09:00 AM AMBULATORY - SURGERY [place] [facility] September 02, 2024 08:20 AM AMBULATORY - SURGERY [place] [facility] Oct 01, 2024 09:00 AM [facility] Oct 30, 2024 09:00 AM AMBULATORY - PSYCHIATRY [facility] Lab Results: +/- 30 days [...] Type Comment May 15, 2024 09:46 AM [facility] WN MAGNESIUM PLASMA Specimen Type: PLASMA Comment: [...] May 07, 2024 10:35 AM Reporting Lab: [address] [phone] Performing Lab: [address] [address] MAGNESIUM 1.8 mg/dL 1.6-2.6 May 15, 2024 09:46 AM [facility] BNP (STODDARD) PLASMA Specimen Type: PLASMA Comment: BNP results less than or equal to 100 pg/ml are dermatology sales representative of normal values in patients without CHF. BNP results greater than 100 pg/ml are considered abnormal and suggestive of CHF. Higher BNP concentrations in the first 72 hours after Acute Coronary Syndrome are associated with an increased risk of , myocardial infarction and CHF. Ordering Provider: CYNDI STEINBERG Report Released Date/Time: May 07, 2024 10:35 AM Reporting Lab: [facility] [address] [facility] [address] Performing Lab: [facility] [address] [place] [phone] BNP (STODDARD) 29 pg/mL 0-100 May 15, 2024 09:46 AM [facility] PANEL 1 PLASMA Specimen Type: PLASM A [...] May 07, 2024 10:35 AM Reporting Lab: [address] [address] Performing Lab: [place] [id number] CREATININE 1.54 mg/dL H 0.72-1.25 UREA NITROGEN 20 mg/dL 9-25 GLUCOSE 151 mg/dL H 74-100 SODIUM 140 mmol/L 136-145 POTASSIUM 4.0 mmol/L 3.5-5.1 CHLORIDE 104 mmol/L 98-107 CO2 28 mmol/L 22-29 CALCIUM 9.7 mg/dL 8.4-10.2 ANION GAP 8 meq/L 3-19 eGFR (CKD-EPI) 46 Apr 29, 2024 10:55 AM [facility] URINALYSIS URINE Specimen Type : URINE Comment: Microscopic not indicated Ordering Provider: ERIK KIM Report Released Date/Time: Apr 16, 2024 01:19 PM Reporting Lab: [place] [phone] Performing Lab: [address] [address] URINE COLOR Colorless Colorless-Yellow APPEARANCE Clear Clear UROBILINOGEN Normal mg/dL Normal URINE BLOOD Negative Negative URINE BILIRUBIN Negative Negative URINE KETONES Negative mg/dL Negative URINE PROTEIN Negative mg/dL Negative-Tr john URINE PH 7.0 4.5-8.0 URINE NITRITE Negative Negative URINE LEUKOCYTE EST Negative Negative SPECIFIC GRAVITY 1.005 1.005-1.030 URINE GLUCOSE Negative mg/dL Negative Apr 29, 2024 10:49 AM [facility] LACTIC ACID PLASMA Specimen Type : PLASMA Comment: ~2 hours from now Ordering Provider: ERIK KIM Report Released Date/Time: Apr 16, 2024 01:19 PM Reporting Lab: [address] [address] Performing Lab: [address] [address] LACTIC ACID 1.4 mmol/L 0.5-2.2 Apr 29, 2024 10:49 AM [facility] HIGH SENSITIVITY TROPONIN I PLASMA Specimen [...] Apr 16, 2024 01:19 PM Reporting Lab: [address] [address] Performing Lab: [address] [address] HIGH SENSITIVITY TROPONIN I <4 4-35 Apr 29, 2024 10:49 AM [facility] MAGNESIUM PLASMA Specimen Type: PLASM A Comment: [...] Apr 29, 2024 10:33 AM Reporting Lab: [address] [address] Performing Lab: [address] [address] MAGNESIUM 1.7 mg/dL 1.6-2.6 Apr 29, 2024 10:49 AM [facility] PANEL 1 PLASMA Specimen Type: PLASM A [...] Apr 29, 2024 10:33 AM Reporting Lab: [address] [address] Performing Lab: [address] [address] CREATININE 1.35 mg/dL H 0.72-1.25 UREA NITROGEN 11 mg/dL 9-25 GLUCOSE 114 mg/dL H 74-100 SODIUM 141 mmol/L 136-145 POTASSIUM 4.2 mmol/L 3.5-5.1 CHLORIDE 105 mmol/L 98-107 CO2 29 mmol/L 22-29 CALCIUM 9.7 mg/dL 8.4-10.2 ANION GAP 7 meq/L 3-19 eGFR (CKD-EPI) 53 Social History: Smoking Status (Most current) and Tobacco Use (All prior to encounter date) This section includes the most current, and the historical, smoking and tobacco- related health factors from the [place] facility where the Encounter took place. Current Smoking Status This section includes the most current smoking, or tobacco-related health factor, from the [place] facility where the Encounter took place. Date/Time Current Smoking Status Comment Edis baker May 07, 2024 10:00 AM VA-TOBACCO NEVER U SED OTHER TYPE [facility] Tobacco Use History This section includes a history of the smoking, or tobacco-related health factors, that were collected on or before the date of the Encounter. The data comes from the [place] facility where the Encounter took place. Date/Time Smoking Status/Tobacco Use Comment Ramu harrington May 07, 2024 10:00 AM VA-TOBACCO NEVER U SED OTHER TYPE [facility] Feb 14, 2024 08:30 AM VA-TOBACCO FORMER USER [facility] Feb 14, 2024 08:30 AM VA-TOBACCO QUIT 15 YRS OR MORE [facility] Jan 10, 2023 11:00 AM VA-TOBACCO NEVER USED [facility] Dec 09, 2021 08:00 AM VA-TOBACCO NEVER [...] HF V9 LIFETIME NON-SMOKER [facility] Radiology Reports: +/- 30 days of the [...] the Encounter. The data comes from all [facility] facilities. Date/Time Radiology Report Provider Source May 29, 2024 05:[address] PERFORMED BY OTHER FACILITY: ERIK GALLEGO [id number] -1945 M Exm Date: MAY 29, 2024@17:13 Req Phys: CYNDI STEINBERG Pat Loc: [facility] PACT LULU 1-2 (Req'g Lo Img Loc: OUTSIDE2 LD CT Service: Unknown (Case [id number] COMPLETE) [address] CT PERFORMED BY OTHER FACIL(CT Detailed) CPT:33282 Reason for Study: Exam imported from outside Clinical History: Original Data for Imported Study Patient Name: ERIK GALLEGO Date: 1945 Sex: M Study Date: 05/29/24 Study Time: 05:13:55 Study Description: CT CHEST PE/ABD/PEL W Referring Physician: TAMMI GEE Series 1: 2 CT files, description: DIRECTOR OF HEAD START Series 2: 216 CT files, description: 5.0mm [...] VERIFIED BY: / *ELECTRONICALLY FILED* [facility] May 27, 2024 08:07 AM MYOVIEW(1): ERIK GALLEGO [id number] -1945 M Exm Date: MAY 27, 2024@08:07 Req Phys: CYNDI STEINBERG Loc: [place]NE POD PIPELINE MAINTENANCE SUPERVISOR (Req'g Loc) Img Loc: NUCLEAR MEDICINE Service: [place] [address] (Case [id number] COMPLETE) MYOVIEW(1) (NM Detailed) CPT:A9502 Reason for [...] 27, 2024 Date Verified: MAY 27, 2024 Green Chain Operator E-Sig: Report: STUDY: GXT REPORT: Patient [...] Staff: ANIA ANDRADE APRN, Cardiology Verified by bucket pusher for ANIA ANDRADE /ANIA ESPINOZA-LOWELL [facility] May 27, 2024 08:07 AM 66982(D) MYOCARDIAL SPECT(MULTIPLE): ERIK GALLEGO [id number] -1945 M Exm Date: MAY 27, 2024@08:07 Req Phys: CYNDI STEINBERG Pat Loc: [place] POD PIPELINE MAINTENANCE SUPERVISOR (Req'g Loc) Img Loc: NUCLEAR MEDICINE Service: [place] [address] THIS IS AN AMENDED REPORT (Case [id number] COMPLETE) 34360(D) MYOCARDIAL SPECT(MULTIPL(NM Detailed) CPT:47413 Proc Modifiers : GXT Reason for Study: [...] 05, 2024 Date Verified: JUN 05, 2024 Green Chain Operator E-Sig: Report: [facility], [place], [place] STUDY: Treadmill Exercise SPECT Tc-99m myoview [...] performed with tomographic and three-dimensional reconstructions with [employer] NM/CT 640 system. The patient performed treadmill [...] data sets in addition to the conventional xqr-tdqxkmkqwps-bbmndfrem images. Both filtered back projection and iterative [...] ventricular cavity. 4. SPECT images: Attenuation-corrected and gbs-micfcudilav-avhzxeugq SPECT images were evaluated. SPECT images demonstrate normal myocardial perfusion. There is a medium size, mild intensity defect located in the thchq-nx-qgrdyn inferior myocardium . The defect is fixed [...] BY: Kerri Mena MD, Cardiology Attending /KERRI LONGCDD [facility] May 27, 2024 08:07 AM MYOVIEW(2): ERIK GALLEGO [id number] -1945 M Ex Date: MAY 27, 2024@08:07 Req Phys: CYNDI STEINBERG Gris Loc: [facility] POD PIPELINE MAINTENANCE SUPERVISOR (Req'g Loc) Img Loc: NUCLEAR MEDICINE Service: [place] [address] THIS IS AN AMENDED REPORT (Case [id number] COMPLETE) MYOVIEW(2) (NM Detailed) CPT:A9502 Reason for [...] 05, 2024 Date Verified: JUN 05, 2024 Green Chain Operator E-Sig: Report: [facility], [place], [place] STUDY: Treadmill Exercise SPECT Tc-99m myoview [...] performed with tomographic and three-dimensional reconstructions with [employer] NM/CT 640 system. The patient performed treadmill [...] data sets in addition to the conventional ved-vxybuurrwmk-yyglozhys images. Both filtered back projection and iterative [...] ventricular cavity. 4. SPECT images: Attenuation-corrected and rqv-khnzhuvrqmd-jwaitjehu SPECT images were evaluated. SPECT images demonstrate normal myocardial perfusion. There is a medium size, mild intensity defect located in the kpfsb-zp-xamxcn inferior myocardium . The defect is fixed [...] MD, Cardiology Attending /KERRI LONG-LOWELL [facility] May 27, 2024 08:07 AM TC-99M FROM NON-HIGHLY ENRICHED URANIUM SOURCE: ERIK GALLEGO [id number] -1945 M Exm Date: MAY 27, 2024@08:07 Req Phys: CYNDI STEINBERG Loc: [place] POD PIPELINE MAINTENANCE SUPERVISOR (Req'g Loc) Img Loc: NUCLEAR MEDICINE Service: [place] [address] THIS IS AN AMENDED REPORT (Case [id number] COMPLETE) TC-99M FROM NON-HIGHLY ENRICHED U(NM Detailed) [...] 05, 2024 Date Verified: JUN 05, 2024 Green Chain Operator E-Sig: Report: [facility], [place], [place] STUDY: Treadmill Exercise SPECT Tc-99m myoview [...] performed with tomographic and three-dimensional reconstructions with [employer] NM/CT 640 system. The patient performed treadmill [...] data sets in addition to the conventional cps-sodubcdiidi-sbfbxmoab images. Both filtered back projection and iterative [...] ventricular cavity. 4. SPECT images: Attenuation-corrected and sps-qndvknqfzka-sioxvrptq SPECT images were evaluated. SPECT images demonstrate normal myocardial perfusion. There is a medium size, mild intensity defect located in the xcuxb-ms-hnlzgz inferior myocardium . The defect is fixed [...] MD, Cardiology Attending /KERRI LONG-LOWELL [facility] May 27, 2024 08:07 AM CARD. STRESS TEST W/TREADMILL/...: JULIÁNERIKMEGHAN ARMSTRONG [id number] 1945 M Exm Date: MAY 27, 2024@08:07 Req Phys: CYNDI STEINBERG Pat Loc: [facility] POD PIPELINE MAINTENANCE SUPERVISOR (Req'g Loc) Img Loc: NUCLEAR MEDICINE Service: [place] [address] THIS IS AN AMENDED REPORT (Case [id number] COMPLETE) CARD. STRESS TEST W/TREADMILL/...(NM Detailed) CPT:83912 Reason for Study: SEE CLINICAL HISTORY Clinical [...] 05, 2024 Date Verified: JUN 05, 2024 Green Chain Operator E-Sig: Report: [facility], [place], [place] STUDY: Treadmill Exercise SPECT Tc-99m myoview [...] performed with tomographic and three-dimensional reconstructions with [employer] NM/CT 640 system. The patient performed treadmill [...] data sets in addition to the conventional kwk-mmdkrvlgiqx-zgxmqwqqk images. Both filtered back projection and iterative [...] ventricular cavity. 4. SPECT images: Attenuation-corrected and fap-xxxnauqvfij-elpmiulwe SPECT images were evaluated. SPECT images demonstrate normal myocardial perfusion. There is a medium size, mild intensity defect located in the fykmq-za-mqgykv inferior myocardium . The defect is fixed [...] MD, Cardiology Attending /KERRI LONG-LOWELL [facility] May 15, 2024 09:57 AM CHEST TWO(2) VIEW PA&LAT: ERIK GALLEGO [id number] -1945 M [facility] Date: MAY 15, 2024@09:57 Req Phys: CYNDI STEINBERG Pat Loc: DEANNE PACT PHONE LULU (Req'g Img Loc: [facility] RADIOLOGY Service: [place] [id number] (Case [id number] COMPLETE)CHEST TWO(2) VIEW PA&LAT (RAD Detailed) CPT:75679 Reason for Study: dyspnea Clinical History: Report Status: Verified Date Reported: MAY 17, 2024 Date Verified: MAY 17, 2024 Green Chain Operator E-Sig: Report: CHEST TWO(2) VIEW PA&LAT, 05/15/2024 10:02 AM EST INDICATION: dyspnea COMPARISON: April 16, 2024 Impression: Calcified granuloma right lung apex. No edema or pneumonia. No pleural effusion or pneumothorax. Heart size normal. No acute osseous abnormality. Primary Diagnostic Code: NO ALERT REQUIRED Primary Interpreting Staff: KAILYN STEELE, Staff Physician Verified by bucket pusher for KAILYN STEELE /KAILYN AVILES [facility] Encounter Notes: All associated encounter notes This section contains the clinical notes associated to the Encounter. Date/Time Encounter Note(s) Provider Source May 20, 2024 02:35 PM DENTISTRY NOTE: LOCAL TITLE: DENTAL PROGRESS NOTE STANDARD TITLE: DENTISTRY NOTE DATE OF NOTE: MAY 20, 2024@14:35 ENTRY DATE: MAY 20, 2024@14:36:23 AUTHOR: BEV MCLAUGHLIN EXP COSIGNER: URGENCY: STATUS: COMPLETED Patient Name: ERIK GALLEGO, : 1945, Age: 78 Visit: V: May 20, 2024@08:00 DEANNE DEN HYG-2 LD. Primary PCE Diagnosis: K03.6. Dental Category: 15-OPC, Class IV. Treatment Status: Maintenance. Planned Procedures: Unsequenced (D2140) AMALGAM ONE SURFACE PERMANEN: 32(D). DX: (K02.52). (D2740) [place] P[place]/CERAMIC SUBS: 14. DX: (K02.52). (D2740) [place]/CERAMIC SUBS: 3. DX: (K02.52). (D2740) [place]/CERAMIC SUBS: 5. DX: (K02.52). Completed Care: (D0274) DENTAL BITEWING FOUR IMAGES. DX: K02.51 Dental Caries on Pit and Fissure Surface Limited to Enamel - - - - - - - - - - - - - - - - - - - - - - - - - - - - - - #32 distal decay nv: continue tx /peyton/ BEV MCLAUGHLIN DMD Signed: 05/20/2024 14:36 BEV MCLAUGHLIN [facility] May 20, 2024 08:48 AM DENTISTRY NOTE: LOCAL TITLE: DENTAL HYGIENE NOTE STANDARD TITLE: DENTISTRY NOTE DATE OF NOTE: MAY 20, 2024@08:48 ENTRY DATE: MAY 20, 2024@08:48:38 AUTHOR: ART WATSON EXP COSIGNER: URGENCY: STATUS: COMPLETED Patient Name: ERIK GALLEGO, : 1945, Age: 78 Visit: S: May 20, 2024@08:00 DEANNE DEN HYG-2 LD. Primary PCE Diagnosis: K03.6 (Deposits [accretions] on teeth). Dental Category: 15-OPC, Class IV. Treatment Status: Maintenance. Completed Care: (D1110) DENTAL PROPHYLAXIS ADULT. DX: K03.6 Deposits [Accretions] on Teeth (D1206) TOPICAL FLUORIDE VARNISH. DX: K03.6 Deposits [Accretions] on Teeth (D1330) ORAL HYGIENE INSTRUCTION. DX: K03.6 Deposits [Accretions] on Teeth (D9994) CASE MGMT-ORAL HEALTH LIT. DX: K03.6 Deposits [Accretions] on Teeth (D9935) CLEAN/INSPECT JOSE J PART DENT. DX: K08.431 Partial Loss of Teeth due to Caries, Class I Periodontal Screening/Recording (PSR): 2-1-2 - - - 2-2-2 Do you have pain today? If yes, On a scale of 0 to 10 what is the pain level now? Assessment identified: Location: Duration Characteristics: Made worse by: Allergies: LISINOPRIL, FOSINOPRIL, PERCOCET BP: Pulse: Does patient use tobacco products: If yes, was Patient was informed of risks to health and offered the resources of smoking/nicotine program? : Removed: Calculus Periodontal probing exam completed Diagnosis: Normal Procedure well tolerated by patient Kit Number #37 used for Hygiene Dental exam by Additional Comments: DR MCLAUGHLIN please view/take credit for bwx taken today. #32D looks suspicious on the xray. Cleaned partial, pt happy with fit. Slt calc and bleeding. No dental complaints NV: 8mrc prophy/exam RTC: - - - - - - - - - - - - - - - - - - - - - - - - - - - - - - /peyton/ ART WATSON DENTAL HYGIENIST Signed: 05/20/2024 08:48 Receipt Acknowledged By: 05/20/2024 14:36 /peyton/ BEV MCLAUGHLIN [facility] May 20, 2024 08:07 AM PROCEDURE REPORT: LOCAL TITLE: DENTAL IMAGING CONSULT RESPONSE STANDARD TITLE: PROCEDURE REPORT DATE OF NOTE: MAY 20, 2024@08:07 ENTRY DATE: MAY 20, 2024@08:08:08 AUTHOR: ART WATSON EXP COSIGNER: URGENCY: STATUS: COMPLETED PROCEDURE SUMMARY CODE: Normal DATE/TIME PERFORMED: MAY 20, 2024@08:08 This consult template is for DENTAL IMAGES only Dental Images are attached to this consult. Please see Dental Progress Note for interpretation. /peyton/ ART WATSON DENTAL HYGIENIST Signed: 05/20/2024 08:08 ART WATSON [facility]
--- OUTSIDE RECORDS SUMMARY | 2024-07-24 21:29 | XMS_ITS | Encounter Summary ---
Author Name [facility] [place] Organization [facility] [place] Address [address] [place] [id number] Care Team Providers Care Band Booker Name Role Phone LAURA MCKEON Primary Care [...] PART A Oct 14, 2009 PART A [id number] Alex GALLEGO PATIENT MEDICARE (WNR) MEDICARE (M) PART B Oct 14, 2009 PART B [id number] Alex GALLEGO PATIENT MEDICARE (WNR) MEDICARE (M) PART A Oct 14, 2009 PART A [id number] Alex GALLEGO PATIENT MEDICARE (WNR) MEDICARE (M) PART B Oct 14, 2009 PART B [id number] Alex GALLEGO PATIENT MEDICARE (WNR) MEDICARE (M) PART A Oct 14, 2009 PART A [id number] Alex GALLEGO PATIENT MEDICARE (WNR) MEDICARE (M) PART B Oct 14, 2009 PART B [id number] Alex GALLEGO PATIENT Selected Encounter This section includes the information on record at OR for the Encounter. Date/Time Encounter Type Encounter Description Reason Provider Source Jan 04, 2024 09:00 AM SELF-MGMT EDUC & TRAIN 1 PT SLEEP MEDICINE ICD-10-CM G47.33 Obstructive sleep apnea (adult) (pediatric) TRAN GARCIA JR E Encounter Template Text not used by [place] Assessments - Encounter Diagnoses This section includes the primary and secondary diagnoses documented for the Encounter. Date/Time Primary/Secondary Diagnosis Diagnosis Name Provider Source Jan 04, 2024 09:05 AM PRIMARY Obstructive sleep apnea (adult) (pediatric) TRAN GARCIA JR [facility] Plan of Treatment: Future Appointments [...] Appointment Type Appointme nt Facility Name Jan 10, 2024 01:30 PM AMBULATORY - [facility]UROLOGY [facility] Jan 14, 2024 08:00 AM AMBULATORY - NONE [facility] Jan 22, 2024 08:30 AM AMBULATORY - MEDICINE [facility] Jan 22, 2024 01:00 PM AMBULATORY - SURGERY [facility] Jan 29, 2024 01:00 PM [facility] Feb 14, 2024 08:30 AM AMBULATORY - NONE [facility] Feb 14, 2024 10:00 AM AMBULATORY - SURGERY [facility] Feb 27, 2024 02:00 PM AMBULATORY - NONE [facility] Feb 28, 2024 01:30 PM AMBULATORY - SURGERY [facility] Feb 28, 2024 02:30 PM AMBULATORY - REHAB MEDICIN E [facility] Feb 29, 2024 09:20 AM [facility] Mar 04, 2024 09:00 AM [facility] Mar 17, 2024 01:00 PM [facility] Mar 18, 2024 08:30 AM AMBULATORY - REHAB MEDICIN E [facility] Mar 18, 2024 10:00 AM [facility] Mar 28, 2024 08:00 AM AMBULATORY - NONE [facility] Apr 01, 2024 10:00 AM [facility] Apr 15, 2024 09:00 AM AMBULATORY - PSYCHIATRY [facility] Apr 16, 2024 11:35 AM [facility] Apr 25, 2024 08:30 AM AMBULATORY - SURGERY [facility] Lab Results: +/- 30 days of the encounter This section includes the Chemistry and Hematology Lab Results on record with [place] for the patient. Radiology Reports and Pathology Reports are provided separately, in subsequent sections. Lab Results This section contains the Chemistry/Hematology Results that were resulted 30 days before or 30 daysafter the date of the Encounter. Date/Time Source Result Type Result - Unit Interpretation Reference Range Specimen Type Comment Jan 31, 2024 11:09 AM [facility] GLUCOSE-HAND MONITOR CAPILLARY Specimen Type: CAPILLARY Comment: $ Test performed by: [id number] Meter #: [id number] Ordering Provider: PELON CHEUNG Report Released Date/Time: Feb 04, 2024 07:19 AM Reporting Lab: [address] [address] Performing Lab: [address] [address] GLUCOSE-HAND MONITOR 125 mg/dL H 71-99 Social [...] Date/Time Current Smoking Status Comment Edis baker Jan 10, 2023 11:00 AM VA-TOBACCO NEVER USED [facility] Tobacco Use History This section includes a history of the smoking, or tobacco-related health factors, that were collected on or before the date of the Encounter. The data comes from the [place] facility where the Encounter took place. Date/Time Smoking Status/Tobacco Use Comment Ramu achelen Dec 09, 2021 08:00 AM VA-TOBACCO NEVER USED [facility] Dec 10, 2020 09:30 AM VA-TOBACCO NEVER USED [facility] May 13, 2019 09:09 AM VA-TOBACCO NEVER USED [facility] Apr 03, 2018 09:45 AM VA-TOBACCO NEVER USED [facility] May 07, 2017 10:31 AM V9 LIFETIME NON-USER OF TOBACCO [facility] Apr 06, 2016 10:18 AM V9 LIFETIME NON-USER OF TOBACCO [facility] Jan 26, 2015 08:52 AM V9 LIFETIME NON-USER OF TOBACCO [facility] August 18, 2013 08:27 AM V9 LIFETIME NON-USER OF TOBACCO [facility] Sep 18, 2012 08:39 AM V9 LIFETIME NON-USER OF TOBACCO [facility] Jan 19, 2012 10:42 AM V9 LIFETIME NON-USER OF TOBACCO [facility] Jan 19, 2012 10:42 AM V9 TOBACCO OFFERED [facility] September 13, 2010 10:28 AM V9 LIFETIME NON-USER OF TOBACCO [facility] September 13, 2010 10:28 AM V9 TOBACCO OFFERED [facility] Sep 21, 2006 12:59 PM V9 LIFETIME NON-USER OF TOBACCO [facility] Jan 29, 2006 07:52 AM HF V9 LIFETIME NON-SMOKER [facility] Dec 30, 2004 08:05 AM HF V9 LIFETIME NON-SMOKER [facility] Dec 23, 2003 02:58 PM HF V9 LIFETIME NON-SMOKER [facility] Pathology Reports: +/- 30 days [...] the Encounter. The data comes from all [place] treatment facilities. Date/Time Pathology Report Provider Source Jan 31, 2024 12:13 PM LR SURGICAL PATHOL OGY REPORT: LOCAL TITLE: LR SURGICAL PATHOLOGY REPORT DATE OF NOTE: JAN 31, 2024@12:13:13 ENTRY DATE: JAN 31, 2024@12:13:13 AUTHOR: JUDY SIGALA EXP COSIGNER: URGENCY: STATUS: COMPLETED $APHDR Reporting Lab: [facility] [CLIA# [id number]] [address] [place] [id number] - - - - - - - [...] CELL CARCINOMA LEFT PREAURICULAR CHEEK. CPT CODE: 43933 I ACTED BOTH THE SURGEON AND THE PATHOLOGIST FOR THIS CASE. PLEASE SEE CORRESPONDING MOHS NOTE IN CPRS AND MOHS MAP SCANNED TO Personaling. /peyton/ JUDY SIGALA Chief, Dermatology Signed Jan 31, 2024@12:13 Performing Laboratory: Surgical Pathology Report Performed By: [facility] [CLIA# [id number]] [address] [place] [address] $FTR - - - - - - - - - - - - - - - - - - - - - - - - - - - - - - - - - - - - - - - - (End of report) JUDY SIGALA MD [facility] Date Jan 22, 2024 - - - - - - - - - - - - - - - - - - - - - - - - - - - - - - - - - - - - - - - - ERIK GALLEGO STANDARD FORM 515 ID:[id number] SEX:M :1945 AGE: 78 LOC:DERM PCP: Laura Mckeon MD /peyton/ JUDY SIGALA Chief, Dermatology Signed: 01/31/2024 12:13 JUDY SIGALA[facility] Encounter Notes: All associated encounter notes This section contains the clinical notes associated to the Encounter. Date/Time Encounter Note(s) Provider Source Jan 04, 2024 09:00 AM SLEEP MEDICINE NOT E: LOCAL TITLE: C-PAP FOLLOW-UP NOTE STANDARD TITLE: SLEEP MEDICINE NOTE DATE OF NOTE: JAN 04, 2024@09:00 ENTRY DATE: JAN 04, 2024@09:00:57 AUTHOR: TRAN GARCIA JR EXP COSIGNER: URGENCY: STATUS: COMPLETED C-PAP Follow-Up Note: S: Patient presents for routine initial F/U appointment: Date of Sleep Study: 09/2003 AHI: 16.6 Diagnosis: Obstructive Sleep Apnea Type of machine: ResMed Airsense 10 Auto-pap Serial Number: [id number] ([id number]) Type of heater: Humidair Pressure settin-[id number] Mask: Airfit F20 medium Tubing: Slimline Previously tried masks: Medium Airfit F30, F&P Simplus medium/small Problems with: EDS: (-) PAP Problems With: Pressure: (-) Dryness/Stuffiness: (-) Mask:(+) Compliance: 67% # hours per day: 7:12 # Days used: 20>4, 2<4 95% Pressure------9.9cm AHI: 0.5 Leak: 61.9 Patient presented for follow up. Patient stated that he has had sinus infections for the last 2 months and unable to wear CPAP when this happens. All questions answered. Education was provided. A/P: Auto-PAP checked and found to be set and functioning properly. Patient is doing well and in compliance ranges. Patient instructed to call [facility]-PAP Clinic with questions and/or concerns. Appointment duration = 30 minutes total. Total duration includes both patient interaction and administrative completion of appointment. Discussed with pt the diagnosis of JAYLA and potential health risks. RTC:F/U Appt. 1 yr /peyton/ TRAN GARCIA JR RPSGT/Tower Supervisor Signed: 01/04/2024 09:05 TRAN GARCIA JR [facility]
--- OUTSIDE RECORDS SUMMARY | 2024-07-24 21:29 | XMS_ITS | Encounter Summary ---
Author Name [facility] [place] [facility] [place] Address [address] [place] [address] Care Team Providers Care Sales Vice President Name Role Phone LAURA STEINBERG Primary Care [...] PART A Oct 14, 2009 PART A [id number] Alex MISHRA PATIENT MEDICARE (WNR) MEDICARE (M) PART B Oct 14, 2009 PART B [id number] Alex MISHRA PATIENT MEDICARE (WNR) MEDICARE (M) PART A Oct 14, 2009 PART A [id number] [id number] Alex MISHRA PATIENT MEDICARE (WNR) MEDICARE (M) PART B Oct 14, 2009 PART B [id number] [id number] Alex MISHRA PATIENT MEDICARE (WNR) MEDICARE (M) PART A Oct 14, 2009 PART A [id number] Alex MISHRA PATIENT MEDICARE (WNR) MEDICARE (M) PART B Oct 14, 2009 PART B [id number] Alex MISHRA PATIENT Selected Encounter This section includes the information on record at [place] for the Encounter. Date/Time Encounter Type Encounter Description Reason Provider Source Jul 07, 2024 10:00 AM PSYTX W PT 60 MINUTES [facility] - IND ICD-10-CM F43.10 Post-traumatic stress disorder, unspecified BENITEZ DUNN Jennifer Encounter Template Text not used by [place] Assessments - Encounter Diagnoses This section includes the primary and secondary diagnoses documented for the Encounter. Date/Time Primary/Secondary Diagnosis Diagnosis Name Provider Source Jul 10, 2024 03:41 PM PRIMARY Post-traumatic stress disorder, unspecified BENITEZ DUNN [facility] Plan of Treatment: Future Appointments (+ 6 months) and Future Tests (+/- 45 days) The Plan of Treatment section includes future care activities for the patient from all [place] treatmentfacilities. This section includes future appointments and future orders which are active, pending or scheduled. Future Appointments This section includes appointments that were scheduled to occur 6 months from the date of the Encounter, up to a maximum of 20 appointments. The data comes from all [place] treatment facilities. Appointment Date/Time Appointment Type Appointme nt Facility Name Jul 08, 2024 10:00 AM AMBULATORY - MEDICINE [facility] Jul 10, 2024 08:30 AM AMBULATORY - MEDICINE [facility] Jul 24, 2024 03:00 PM AMBULATORY - PSYCHIATRY [facility] Aug 05, 2024 09:00 AM AMBULATORY - MEDICINE [facility] Aug 11, 2024 10:00 AM AMBULATORY - PSYCHIATRY [facility] Aug 12, 2024 09:00 AM AMBULATORY - MEDICINE [facility] August 18, 2024 09:00 AM AMBULATORY - SURGERY [facility] September 02, 2024 08:20 AM AMBULATORY - SURGERY [facility] Oct 01, 2024 09:00 AM AMBULATORY - NONE [facility] [facility] Oct 30, 2024 09:00 AM [facility] Dec 09, 2024 08:00 AM AMBULATORY - NONE [facility] Rios [facility] Dec 31, 2024 08:30 AM AMBULATORY - MEDICINE JAYNE SINGH [facility] Lab Results: +/- 30 days of the encounter This section includes the Chemistry and Hematology Lab Results on record with [place] for the patient. Radiology Reports and Pathology Reports are provided separately, in subsequent sections. Lab Results This section contains the Chemistry/Hematology Results that were resulted 30 days before or 30 daysafter the date of the Encounter. Date/Time Source Result Type Result - Unit Interpretation Reference Range Specimen Type Comment Jun 30, 2024 03:27 PM [facility] BNP (STODDARD) PLASMA Specimen Type: PLASMA Comment: BNP results less than or equal to 100 pg/ml are wireless sales representative of normal values in patients without CHF. BNP results greater than 100 pg/ml are considered abnormal and suggestive of CHF. Higher BNP concentrations in the first 72 hours after Acute Coronary Syndrome are associated with an increased risk of , myocardial infarction and CHF. Ordering Provider: SACHI SAINZ Report Released Date/Time: Jun 30, 2024 03:21 PM Reporting Lab: [address] [address] Performing Lab: [address] [address] BNP (STODDARD) 22 pg/mL 0-100 Jun 30, 2024 03:27 PM [facility] CBC/PLT BLOOD Specimen Type: BLOOD No comment entered. Ordering Provider: SACHI SAINZ Report Released Date/Time: Jun 30, 2024 03:21 PM Reporting Lab: [address] [address] Performing Lab: [address] [address] WBC 7.2 10*3/uL 5.0-10.0 RBC 4.85 10*6/uL 4.6-6.2 HGB 14.7 g/dL 14.0-18.0 HCT 43.8 42.0-52.0 MCV 90.3 fL 80.0-94.0 MCH 30.3 pg 27.0-31.0 MCHC 33.6 g/dL 32.0-36.0 PLT 235 10*3/uL 150-450 MPV 10.6 fL 9.0-13.1 RDW 14.8 11.0-16.0 NRBC 0.0 0.0-0.0 Jun 30, 2024 03:27 PM [facility] PANEL 1 PLASMA Specimen Type: PLASM [...] Jun 30, 2024 03:21 PM Reporting Lab: [facility] [address] [phone] Performing Lab: [facility] [address] [address] CREATININE 1.43 mg/dL H 0.72-1.25 UREA NITROGEN 22 mg/dL 9-25 GLUCOSE 164 mg/dL H 74-100 SODIUM 139 mmol/L 136-145 POTASSIUM 3.7 mmol/L 3.5-5.1 CHLORIDE 102 mmol/L 98-107 CO2 27 mmol/L 22-29 CALCIUM 9.8 mg/dL 8.4-10.2 ANION GAP 10 meq/L 3-19 eGFR (CKD-EPI) 50 Social History: Smoking Status (Most current) and Tobacco Use (All prior to encounter date) This section includes the most current, and the historical, smoking and tobacco- related health factors from the [place] facility where the Encounter took place. Current Smoking Status This section includes the most current smoking, or tobacco-related health factor, from the [place] facility where the Encounter took place. Date/Time Current Smoking Status Comment Edis baker May 07, 2024 10:00 AM VA-TOBACCO NEVER U SED CIGARETTES [facility] Tobacco Use History This section includes a history of the smoking, or tobacco-related health factors, that were collected on or before the date of the Encounter. The data comes from the [place] facility where the Encounter took place. Date/Time Smoking Status/Tobacco Use Comment Ramu harrington May 07, 2024 10:00 AM VA-TOBACCO NEVER U SED OTHER TYPE [facility] Feb 14, 2024 08:30 AM VA-TOBACCO FORMER USER [facility] Feb 14, 2024 08:30 AM VA-TOBACCO QUIT 15 YRS OR MORE [facility] Jan 10, 2023 11:00 AM VA-TOBACCO NEVER USED [facility] Dec 09, 2021 08:00 AM VA-TOBACCO NEVER USED [facility] Dec 10, 2020 09:30 AM VA-TOBACCO NEVER USED [facility] May 13, 2019 09:09 AM VA-TOBACCO NEVER USED [facility] Apr 03, 2018 09:45 AM VA-TOBACCO NEVER USED [facility] May 07, 2017 10:31 AM V9 LIFETIME NON-USER OF TOBACCO [facility] Apr 06, 2016 10:18 AM V9 LIFETIME NON-USER OF TOBACCO [facility] Jan 26, 2015 08:52 AM V9 LIFETIME NON-USER OF TOBACCO [facility] August 18, 2013 08:27 AM V9 LIFETIME NON-USER OF TOBACCO [facility] Sep 18, 2012 08:39 AM V9 LIFETIME NON-USER OF TOBACCO [facility] Jan 19, 2012 10:42 AM V9 LIFETIME NON-USER OF TOBACCO [facility] Jan 19, 2012 10:42 AM V9 TOBACCO OFFERED [facility] September 13, 2010 10:28 AM V9 LIFETIME NON-USER OF TOBACCO [facility] September 13, 2010 10:28 AM V9 TOBACCO OFFERED [facility] Sep 21, 2006 12:59 PM V9 LIFETIME NON-USER OF TOBACCO [facility] Jan 29, 2006 07:52 AM HF V9 LIFETIME NON-SMOKER [facility] Dec 30, 2004 08:05 AM HF V9 LIFETIME NON-SMOKER [facility] Dec 23, 2003 02:58 PM HF V9 LIFETIME NON-SMOKER [facility] Pathology Reports: +/- 30 days of [...] the Encounter. The data comes from all [facility] facilities. Date/Time Pathology Report Provider Source Jul 10, 2024 09:41 AM LR SURGICAL PATHOL OGChai REPORT: LOCAL TITLE: LR SURGICAL PATHOLOGY REPORT DATE OF NOTE: JUL 10, 2024@09:41:15 ENTRY DATE: JUL 10, 2024@09:41:15 AUTHOR: JOE LEUNG COSIGNER: URGENCY: STATUS: COMPLETED $APHDR Reporting Lab: [facility] [CLIA# [id number]] [address] [id number] - - - - - - - [...] left earlobe and consists of an unoriented, gar-uzdh-rpvjysj, yellow/white shave of skin measuring 0.5 x 0.4 x 0.2 cm. A rough papule is identified over the skin surface measuring 0.4 x 0.3 cm. The cut surface is yellow/white and grossly unremarkable. The cut surface is inked blue. The specimen is bisected to reveal a white solid interior. The specimen is submitted entirely in a single cassette. 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 /peyton/ JOE LEUNG pathologist Signed Jul 10, 2024@09:41 Performing Laboratory: Surgical Pathology Report Performed By: [facility] [IA# [id number]] [address] [place] [phone] $FTR - - - - - - - - - - - - - - - - - - - - - - - - - - - - - - - - - - - - - - - - (End of report) JOE LEUNG MD [facility] Date Jul 10, 2024 - - - - - - - - - - - - - - - - - - - - - - - - - - - - - - - - - - - - - - - - ERIK MISHRA STANDARD FORM 515 ID:[id number] SEX:M :1945 AGE: 78 LOC:PATH PCP: Laura Steinberg MD /peyton/ JOE LEUNG pathologist Signed: 07/10/2024 09:41 JOE LEUNG [facility] Encounter Notes: All associated encounter notes This section contains the clinical notes associated to the Encounter. Date/Time Encounter Note(s) Provider Source Jul 07, 2024 11:35 AM MENTAL HEALTH NOTE : LOCAL TITLE: BHIP PSYCHOTHERAPY NOTE STANDARD TITLE: MENTAL HEALTH NOTE DATE OF NOTE: JUL 07, 2024@11:35 ENTRY DATE: JUL 10, 2024@15:36:16 AUTHOR: BENITEZ DUNN COSIGNER: URGENCY: STATUS: COMPLETED BHIP PSYCHOTHERAPY NOTE Has ADDENDA Date of Session: JUL 10, 2024 Duration of Session: 55 min Session Number: 6 Diagnosis Addressed During Session: PTSD, chronic Session [...] homicidal ideation, intent, or plans. C-SSRS Screening [place]-Suicide Severity Rating Scale (C-SSRS Screener) 1. Over [...] other questions. Assessment Data: Whole Health Interventions Treatment planning Session Content: Mr. Mishra continues to recover physically and emotionally from his recent heart attack and stent surgery. This has highlighted his sense of vulnerability. Offered validation and methods/techniques for focus on more rational thought and avoidance of being in emotion mind . Therapeutic Intervention: Provided a supportive environment with reflective listening, normalization and validation. Assessed for symptoms and current stressors. Discussed healthy coping skills to manage stress and sleep. Assessed progress toward goals and ongoing therapeutic needs. Assessed for SI/HI. Encouraged to call crisis line if needed. Patient Response to Treatment: Attentive and cooperative Progress Towards Treatment Goal: Stable Plan and Scheduling Instructions: August 04 2024 @10 [facility]#6 LD Pain management, if needed, is managed by primary care. Reason for Ordering Tests, Consults or Changes in Medications: No new orders or changes indicated at this time /peyton/ Benitez Dunn, TRAVELING INVENTORY ASSOCIATE, TIMBER PACKER, ACSW Licensed Clinical Beauty Culturist Apprentice Signed: 07/10/2024 15:41 07/11/2024 ADDENDUM STATUS: COMPLETED per rtc 07/10/2024 aware and letter mailed /peyton/ Nafisa Salmeron Advanced MSA Signed: 07/11/2024 12:58 BENITEZ DUNN [facility]
--- OUTSIDE RECORDS SUMMARY | 2024-07-24 21:29 | XMS_ITS | Encounter Summary ---
Author Name [facility] Organization [facility] [place] Address [address] [place] [address] Care Team Providers Care Cotton Breeder Name Role Phone LAURA STEINBERG Primary Care [...] PART A Oct 14, 2009 PART A [id number] Alex MISHRA PATIENT MEDICARE (WNR) MEDICARE (M) PART B Oct 14, 2009 PART B [id number] Alex MISHRA PATIENT MEDICARE (WNR) MEDICARE (M) PART A Oct 14, 2009 PART A [id number] Alex MISHRA PATIENT MEDICARE (WNR) MEDICARE (M) PART B Oct 14, 2009 PART B [id number] Alex MISHRA PATIENT MEDICARE (WNR) MEDICARE (M) PART A Oct 14, 2009 PART A [id number] Alex IMSHRA PATIENT MEDICARE (WNR) MEDICARE (M) PART B Oct 14, 2009 PART B [id number] Alex MISRHA PATIENT Selected Encounter This section includes the information on record at [place] for the Encounter. Date/Time Encounter Type Encounter Description Reason Provider Source Jun 10, 2024 11:00 AM PSYTX W PT 60 [facility]UTES [facility] - IND ICD-10-CM F43.10 Post-traumatic stress disorder, unspecified BENITEZ DUNN Jennifre Encounter Template Text not used by [place] Assessments - Encounter Diagnoses This section includes the primary and secondary diagnoses documented for the Encounter. Date/Time Primary/Secondary Diagnosis Diagnosis Name Provider Source Jun 11, 2024 12:47 PM PRIMARY Post-traumatic stress disorder, unspecified BENITEZ DUNN [facility] Plan of Treatment: Future Appointments (+ 6 months) and Future Tests (+/- 45 days) The Plan of Treatment section includes future care activities for the patient from [facility] [place] [facility] This section includes future appointments and future [...] 2024 09:00 AM AMBULATORY - NONE [place] [facility] Jun 24, 2024 08:00 AM AMBULATORY - NONE [place] [facility] Jun 30, 2024 11:00 AM AMBULATORY - NONE [place] [facility] Jun 30, 2024 03:00 PM AMBULATORY - MEDICINE JAYNE NGTON-CDD [facility] Jul 01, 2024 09:00 AM AMBULATORY - MEDICINE JAYNE NGTON-CDD [facility] Jul 07, 2024 10:00 AM AMBULATORY - PSYCHIATRY [facility] Jul 08, 2024 10:00 AM AMBULATORY - MEDICINE JAYNE NGTON [facility] Jul 10, 2024 08:30 AM AMBULATORY - MEDICINE JAYNE NGTON-CDD [facility] Jul 24, 2024 03:00 PM [facility] Aug 05, 2024 09:00 AM AMBULATORY - MEDICINE JAYNE NGTON [facility] Aug 11, 2024 10:00 AM AMBULATORY - PSYCHIATRY COREY NICHOLAS [facility] Aug 12, 2024 09:00 AM AMBULATORY - MEDICINE JAYNE SINGH [facility] August 18, 2024 09:00 AM AMBULATORY - SURGERY LARRY HOLLOWAY [facility] September 02, 2024 08:20 AM AMBULATORY - SURGERY LARRY HOLLOWAY [facility] Oct 01, 2024 09:00 AM AMBULATORY - NONE DEANNEINGLIV Rios [facility] Oct 30, 2024 09:00 AM AMBULATORY - PSYCHIATRY COREY NICHOLAS [facility] Lab Results: +/- 30 [...] Type Comment Jun 30, 2024 03:27 PM [facility] BNP ([place]ARD) PLASMA Specimen Type: PLASMA Comment: BNP results less than or equal to 100 pg/ml are delivery representative of normal values in patients without CHF. BNP results greater than 100 pg/ml are considered abnormal and suggestive of CHF. Higher BNP concentrations in the first 72 hours after Acute Coronary Syndrome are associated with an increased risk of , myocardial infarction and CHF. Ordering Provider: SACHI SAINZ Report Released Date/Time: Jun 30, 2024 03:21 PM Reporting Lab: [address] [address] Performing Lab: [address] [address] BNP (STODDARD) 22 pg/mL 0-100 Jun 30, 2024 03:27 PM [facility] PANEL 1 PLASMA Specimen [...] 30, 2024 03:21 PM Reporting Lab: [address] [address] Performing Lab: [address] [address] CREATININE 1.43 mg/dL H 0.72-1.25 UREA NITROGEN 22 mg/dL 9-25 GLUCOSE 164 mg/dL H 74-100 SODIUM 139 mmol/L 136-145 POTASSIUM 3.7 mmol/L 3.5-5.1 CHLORIDE 102 mmol/L 98-107 CO2 27 mmol/L 22-29 CALCIUM 9.8 mg/dL 8.4-10.2 ANION GAP 10 meq/L 3-19 eGFR (CKD-EPI) 50 Jun 30, 2024 03:27 PM [facility] CBC/PLT BLOOD Specimen Type: BLOOD No comment entered. Ordering Provider: SACHI SAINZ Report Released Date/Time: Jun 30, 2024 03:21 PM Reporting Lab: [facility] [address] [facility] [address] Performing Lab: [facility] [address] [facility] [address] WBC 7.2 10*3/uL 5.0-10.0 RBC 4.85 10*6/uL 4.6-6.2 HGB 14.7 g/dL 14.0-18.0 HCT 43.8 42.0-52.0 MCV 90.3 fL 80.0-94.0 MCH 30.3 pg 27.0-31.0 MCHC 33.6 g/dL 32.0-36.0 PLT 235 10*3/uL 150-450 MPV 10.6 fL 9.0-13.1 RDW 14.8 11.0-16.0 NRBC 0.0 0.0-0.0 May 15, 2024 09:46 AM [facility] MAGNESIUM PLASMA Specimen Type: PLASM A Comment: [...] 07, 2024 10:35 AM Reporting Lab: [address] [address] Performing Lab: [address] [address] MAGNESIUM 1.8 mg/dL 1.6-2.6 May 15, 2024 09:46 AM [facility] PLASMA Specimen Type: PLASMA Comment: BNP results less than or equal to 100 pg/ml are delivery representative of normal values in patients without CHF. BNP results greater than 100 pg/ml are considered abnormal and suggestive of CHF. Higher BNP concentrations in the first 72 hours after Acute Coronary Syndrome are associated with an increased risk of , myocardial infarction and CHF. Ordering Provider: LAURA STEINBERG Report Released Date/Time: May 07, 2024 10:35 AM Reporting Lab: [address] [address] Performing Lab: [address] [address] BNP (STODDARD) 29 pg/mL 0-100 May 15, 2024 09:46 AM [facility] PAN[facility] 1 PLASMA Specimen Type: PLASM A [...] 07, 2024 10:35 AM Reporting Lab: [address] [address] Performing Lab: [address] [address] CREATININE 1.54 mg/dL H 0.72-1.25 UREA NITROGEN [...] AM VA-TOBACCO NEVER U SED OTHER TYPE [facility] Tobacco Use History This section includes a history of the smoking, or tobacco-related health factors, that were collected on or before the date of the Encounter. The data comes from the [place] facility where the Encounter took place. Date/Time Smoking Status/Tobacco Use Comment Ramu juany May 07, 2024 10:00 AM VA-TOBACCO NEVER U SED OTHER TYPE [facility] Feb 14, 2024 08:30 AM VA-TOBACCO FORMER USER [facility] Feb 14, 2024 08:30 AM VA-TOBACCO QUIT 15 YRS OR MORE [facility] Jan 10, 2023 11:00 AM VA-TOBACCO NEVER USED [facility] Dec 09, 2021 08:00 AM VA-TOBACCO NEVER USED [facility] Dec 10, 2020 09:30 AM VA-TOBACCO NEVER USED [facility] May 13, 2019 09:09 AM VA-TOBACCO NEVER USED [facility] Apr 03, 2018 09:45 AM VA-TOBACCO NEVER USED [facility] May 07, 2017 10:31 AM V9 LIFETIME NON-USER OF TOBACCO [facility] Apr 06, 2016 10:18 AM V9 LIFETIME NON-USER OF TOBACCO [facility] Jan 26, 2015 08:52 AM V9 LIFETIME NON-USER OF TOBACCO [facility] August 18, 2013 08:27 AM V9 LIFETIME NON-USER OF TOBACCO [facility] Sep 18, 2012 08:39 AM V9 LIFETIME NON-USER OF TOBACCO [facility] Jan 19, 2012 10:42 AM V9 LIFETIME NON-USER OF TOBACCO [facility] Jan 19, 2012 10:42 AM V9 TOBACCO OFFERED [facility] September 13, 2010 10:28 AM V9 LIFETIME NON-USER OF TOBACCO [facility] September 13, 2010 10:28 AM V9 TOBACCO OFFERED [facility] Sep 21, 2006 12:59 PM V9 LIFETIME NON-USER OF TOBACCO [facility] Jan 29, 2006 07:52 AM HF V9 LIFETIME NON-SMOKER [facility] Dec 30, 2004 08:05 AM HF V9 LIFETIME NON-SMOKER [facility] Dec 23, 2003 02:58 PM HF V9 LIFETIME NON-SMOKER [facility] Radiology Reports: +/- 30 days of [...] the Encounter. The data comes from all [facility] facilities. Date/Time Radiology Report Provider Source May 29, 2024 05:[address] PERFORMED BY OTHER FACILITY: ERIK MISHRA [id number] -1945 M Exm Date: MAY 29, 2024@17:13 Req Phys: LAURA STEINBERG Pat Loc: [facility] PACT L[facility] 1-2 (Req'g Lo Img Loc: OUTSIDE2 LD CT Service: Unknown (Case [id number] COMPLETE) [address] CT PERFORMED BY OTHER FACIL(CT Detailed) CPT:70881 Reason for Study: Exam imported from outside Clinical History: Original Data for Imported Study Patient Name: ERIK MISHRA Date: 1945 Sex: M Study Date: 05/29/24 Study Time: 05:13:55 Study Description: CT CHEST PE/ABD/PEL W Referring Physician: TAMMI GEE Series 1: 2 CT files, description: SAND DIGGER Series 2: 216 CT files, description: 5.0mm [...] Diagnostic Code: VERIFIED BY: / *ELECTRONICALLY FILED* [facility] May 27, 2024 08:07 AM MYOVIEW(1): ERIK MISHRA [id number] -1945 M Exm Date: MAY 27, 2024@08:07 Req Phys: LAURA STEINBERG Loc: [facility] POD NUCLEAR RADIOLOGIST (Req'g Loc) Img Loc: NUCLEAR MEDICINE Service: [place] [address] (Case [id number] COMPLETE) MYOVIEW(1) ([place] Detailed) CPT:A9502 Reason for [...] 27, 2024 Date Verified: MAY 27, 2024 Environmental Educator E-Sig: Report: STUDY: GXT REPORT: Patient exercised [...] Staff: ANIA ANDRADE APRN, Cardiology Verified by hr director for ANIA ANDRADE /ANIA ESPINOZA-LOWELL [facility] May 27, 2024 08:07 AM 33673(D) MYOCARDIAL SPECT(MULTIPLE): ERIK MISHRA [id number] 1945 M Exm Date: MAY 27, 2024@08:07 Req Phys: LAURA STEINBERG Loc: [facility] NUCLEAR RADIOLOGIST (Req'g Loc) Img Loc: NUCLEAR MEDICINE Service: [place] [address] THIS IS AN AMENDED REPORT (Case [id number] COMPLETE) 42883(D) MYOCARDIAL SPECT(MULTIPL(NM Detailed) CPT:27850 Proc Modifiers : GXT Reason for Study: [...] 05, 2024 Date Verified: JUN 05, 2024 Environmental Educator E-Sig: Report: [place], [place] STUDY: Treadmill Exercise SPECT Tc-99m myoview [...] performed with tomographic and three-dimensional reconstructions with STYLIGHT NM/CT 640 system. The patient performed treadmill [...] data sets in addition to the conventional sdj-gkzkomryfia-iphbhvfws images. Both filtered back projection and iterative [...] ventricular cavity. 4. SPECT images: Attenuation-corrected and ocf-vyajfniewrj-ewtqqgvco SPECT images were evaluated. SPECT images demonstrate normal myocardial perfusion. There is a medium size, mild intensity defect located in the wcfiv-ov-hjdfuk inferior myocardium . The defect is fixed [...] Kerri Mena MD, Cardiology Attending /[facility]ER[facility] LONG[facility] May 27, 2024 08:07 AM MYOVIEW(2): ERIK MISHRA [id number] -1945 M Ex Date: MAY 27, 2024@08:07 Req Phys: LAURA STEINBERG Pat Loc: [facility] NUCLEAR RADIOLOGIST (Req'g Loc) Img Loc: NUCLEAR MEDICINE Service: [place] [address] THIS IS AN AMENDED REPORT (Case [id number] COMPLETE) MYOVIEW(2) (NM Detailed) CPT:A9502 Reason for [...] 05, 2024 Date Verified: JUN 05, 2024 Environmental Educator E-Sig: Report: [facility], [place], [place] STUDY: Treadmill Exercise SPECT Tc-99m myoview [...] performed with tomographic and three-dimensional reconstructions with STYLIGHT NM/CT 640 system. The patient performed treadmill [...] data sets in addition to the conventional kjb-syxnlosgvss-pqwwgdcgr images. Both filtered back projection and iterative [...] ventricular cavity. 4. SPECT images: Attenuation-corrected and toa-xccmltukwqd-jqbiwmhay SPECT images were evaluated. SPECT images demonstrate normal myocardial perfusion. There is a medium size, mild intensity defect located in the xijxq-po-adhccr inferior myocardium . The defect is fixed [...] Kerri Mena MD, Cardiology Attending /[facility]ERRI LONG-CDJoseph [facility] May 27, 2024 08:07 AM TC-99M FROM NON-HIGHLY ENRICHED URANIUM SOURCE: ERIK MISHRA [id number] -1945 M Exm Date: MAY 27, 2024@08:07 Req Phys: LAURA STEINBERG Pat Loc: [facility] P[facility] NUCLEAR RADIOLOGIST (Req'g Loc) Img Loc: NUCLEAR MEDICINE Service: [place] [address] THIS IS AN AMENDED REPORT (Case [id number] COMPLETE) TC-99M FROM NON-HIGHLY ENRICHED U(NM Detailed) [...] 05, 2024 Date Verified: JUN 05, 2024 Environmental Educator E-Sig: Report: [facility], [place], [place] STUDY: Treadmill Exercise SPECT Tc-99m myoview [...] performed with tomographic and three-dimensional reconstructions with STYLIGHT NM/CT 640 system. The patient performed treadmill [...] data sets in addition to the conventional rma-lmtenulhocc-znibwpjqk images. Both filtered back projection and iterative [...] ventricular cavity. 4. SPECT images: Attenuation-corrected and uba-kwrzuimwkrz-jmlmfhgvk SPECT images were evaluated. SPECT images demonstrate normal myocardial perfusion. There is a medium size, mild intensity defect located in the dcxec-ab-ioizpb inferior myocardium . The defect is fixed [...] Kerri Mena MD, Cardiology Attending /KERRI LONG DE YOUNG-D [facility] May 27, 2024 08:07 AM CARD. STRESS TEST W/TREADMILL/...: ERIK MISHRA [id number] -1945 M Exm Date: MAY 27, 2024@08:07 Req Phys: LAURA STEINBERG Pat Loc: [facility] P[facility] NUCLEAR RADIOLOGIST (Req'g Loc) Img Loc: NUCLEAR MEDICINE Service: Unknown [place] [id number] THIS IS AN AMENDED REPORT (Case [id number] COMPLETE) CARD. STRESS TEST W/TREADMILL/...(NM Detailed) CPT:79910 Reason for Study: SEE CLINICAL HISTORY Clinical [...] 05, 2024 Date Verified: JUN 05, 2024 Environmental Educator E-Sig: Report: [facility], [place], [place] STUDY: Treadmill Exercise SPECT Tc-99m myoview [...] performed with tomographic and three-dimensional reconstructions with STYLIGHT NM/CT 640 system. The patient performed treadmill [...] data sets in addition to the conventional iym-dedyrrdbgns-wcrcsdqzm images. Both filtered back projection and iterative [...] rate-pressure double product was 27,216. 8. The Veelz treadmill score was 0 (intermediate risk). 9. [...] ventricular cavity. 4. SPECT images: Attenuation-corrected and nvz-uyubjkqkkqr-cckdbzoey SPECT images were evaluated. SPECT images demonstrate normal myocardial perfusion. There is a medium size, mild intensity defect located in the lbtfx-as-fqzcaz inferior myocardium . The defect is fixed [...] Kerri Mena MD, Cardiology Attending /[facility] May 15, 2024 09:57 AM CHEST TWO(2) VIEW PA&LAT: ERIK MISHRA [id number] -1945 M Exm Date: MAY 15, 2024@09:57 Req Phys: LAURA STEINBERG Loc: [facility] PACT PHONE LULU LenzReq'g Img Loc: [facility] RADIOLOGY Service: Unknown [place] [id number] (Case [id number] COMPLETE)CHEST TWO(2) VIEW PA&LAT (RAD Detailed) CPT:43151 Reason for Study: dyspnea Clinical History: Report Status: Verified Date Reported: MAY 17, 2024 Date Verified: MAY 17, 2024 Environmental Educator E-Sig: Report: CHEST TWO(2) VIEW PA&LAT, 05/15/2024 10:02 AM EST INDICATION: dyspnea COMPARISON: April 16, 2024 Impression: Calcified granuloma right lung apex. No edema or pneumonia. No pleural effusion or pneumothorax. Heart size normal. No acute osseous abnormality. Primary Diagnostic Code: NO ALERT REQUIRED Primary Interpreting Staff: KAILYN STEELE, Staff Physician Verified by hr director for KAILYN STEELE /KAILYN AVILES [facility] Pathology Reports: +/- 30 days of [...] [facility] [CLIA# [id number]] [address] [place] [address] - - - - - - - [...] left earlobe and consists of an unoriented, kzu-tqqg-ounerme, yellow/white shave of skin measuring 0.5 x 0.4 x 0.2 cm. A rough papule is identified over the skin surface measuring 0.4 x 0.3 cm. The cut surface is yellow/white and grossly unremarkable. The cut surface is inked blue. The specimen is bisected to reveal a white solid interior. The specimen is submitted entirely in a single cassette. 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 /peyton/ JOE LEUNG pathologist Signed Jul 10, 2024@09:41 Performing Laboratory: Surgical Pathology Report Performed By: [facility] [CLIA# [id number]] [address] [place] [id number] $FTR - - - - - - - - - - - - - - - - - - - - - - - - - - - - - - - - - - - - - - - - (End of report) JOE LEUNG MD [facility] Date Jul 10, 2024 - - - - - - - - - - - - - - - - - - - - - - - - - - - - - - - - - - - - - - - - ERIK MISHRA STANDARD FORM 515 ID:[id number] SEX:M :1945 AGE: 78 LOC:PATH PCP: Laura Steinberg MD /[place]/ JOE LEUNG pathologist Signed: 07/10/2024 09:41 [facility] Encounter Notes: All associated encounter notes This section contains the clinical notes associated to the Encounter. Date/Time Encounter Note(s) Provider Source Jun 10, 2024 11:41 AM MENTAL HEALTH NOTE : LOCAL TITLE: [facility] PSYCHOTHERAPY NOTE STANDARD TITLE: MENTAL HEALTH NOTE DATE OF NOTE: JUN 10, 2024@11:41 ENTRY DATE: JUN 11, 2024@08:42:19 AUTHOR: BENITEZ DUNN COSIGNER: URGENCY: STATUS: COMPLETED Date of Session: JUN 11, 2024 Duration of Session: 55 min Session Number: 5 Diagnosis Addressed During Session: PTSD, chronic Session [...] homicidal ideation, intent, or plans. C-SSRS Screening [place]-Suicide Severity Rating Scale (C-SSRS Screener) 1. Over [...] Whole Health Interventions Session Content: Mr. 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 Procedure done at [facility] and covered by the [place]. Very thankful. Therapeutic Intervention: Provided a supportive environment with reflective listening, normalization and validation. Assessed [place] for symptoms and current stressors. Discussed healthy coping skills to manage stress and sleep. Assessed progress toward goals and ongoing therapeutic needs. Assessed for SI/HI. Encouraged to call crisis line if needed. Patient Response to Treatment: Attentive and cooperative Progress Towards Treatment Goal: Stable Plan and Scheduling Instructions: 07/08/2024 @[address] [place] [address]#6 LD Pain management, if needed, is managed by primary care. Reason for Ordering Tests, Consults or Changes in Medications: No new orders or changes indicated at this time /peyton/ Benitez Dunn MSW, VEGETABLE BUNCHER, ACSW Licensed Clinical Aurist Signed: 06/11/2024 12:47 BENITEZ DUNN [facility]
--- OUTSIDE RECORDS SUMMARY | 2024-07-24 21:29 | XMS_ITS | Encounter Summary ---
Author Name [facility] Organization [facility] Address [address] [place] [id number] Care Team Providers Care Green Marketer Name Role Phone CYNDI STEINBERG Primary Care [...] PART A Oct 14, 2009 PART A [id number] Alex GALLEGO PATIENT MEDICARE (WNR) MEDICARE (M) PART B Oct 14, 2009 PART B [id number] Alex GALLEGO PATIENT MEDICARE (WNR) MEDICARE (M) PART A Oct 14, 2009 PART A [id number] Alex GALLEGO PATIENT MEDICARE (WNR) MEDICARE (M) PART B Oct 14, 2009 PART B [id number] Alex GALLGEO PATIENT MEDICARE (WNR) MEDICARE (M) PART A Oct 14, 2009 PART A [id number] Alex GALLEGO PATIENT MEDICARE (WNR) MEDICARE (M) PART B Oct 14, 2009 PART B [id number] Alex GALLEGO PATIENT Selected Encounter This section includes the information on record at [place] for the Encounter. Date/Time Encounter Type Encounter Description Reason Pro vider Source May 30, 2024 08:30 AM Outpatient Encounter ADMIN PAT ACTIVTIES (MASNONCT) IHE Encounter Template Text not used by [place] Plan of Treatment: Future Appointments (+ 6 months) and Future Tests (+/- 45 days) The Plan of Treatment section includes future care activities for the patient from all [place] treatmentfacilities. This section includes future appointments and future orders which are active, pending or scheduled. Future Appointments This section includes appointments that were scheduled to occur 6 months from the date of the Encounter, up to a maximum of 20 appointments. The data comes from all [place] treatment facilities. Appointment Date/Time Appointment Type Appointme nt Facility Name Jun 06, 2024 08:00 AM AMBULATORY - SURGERY [place] [facility] Jun 10, 2024 08:50 AM [facility] Jun 10, 2024 11:00 AM [facility]RY [facility] Jun 20, 2024 09:00 AM [facility]ORY - NONE [place] [facility] Jun 24, 2024 08:00 AM AM[place]ORY - NONE [place] [facility] Jun 30, 2024 11:00 AM AM[place]ULATORY - NONE [place] [facility] Jun 30, 2024 03:00 PM AMBULATORY - MEDICINE J[facility]NE NGTON-CDD [facility] Jul 01, 2024 09:00 AM AMBULATORY - MEDICINE [facility] NGTON[facility] Jul 07, 2024 10:00 AM AMB[facility]RY [facility] Jul 08, 2024 10:00 AM [facility] Jul 10, 2024 08:30 AM AMBULATORY - MEDICINE [facility] NGTON-CDD [facility] Jul 24, 2024 03:00 PM AMB[facility] - [facility]CHIATRY [facility] Aug 05, 2024 09:00 AM [facility] Aug 11, 2024 10:00 AM AMBULATORY - PSYCHIATRY COREY NICHOLAS [facility] Aug 12, 2024 09:00 AM AMBULATORY - MEDICINE JAYNE SINGH [facility] August 18, 2024 09:00 AM AMBULATORY - SURGERY LARRY HOLLOWAY [facility] September 02, 2024 08:20 AM AMBULATORY - SURGERY LARRY HOLLOWAY [facility] Oct 01, 2024 09:00 AM AMBULATORY - NONE DALE Rios [facility] Oct 30, 2024 09:00 AM AMBULATORY - PSYCHIATRY COREY NICHOLAS [facility] Lab Results: +/- 30 days of the [...] Type Comment May 15, 2024 09:46 AM [facility] MAGNESIUM PLASMA Specimen Type: PLASMA Comment: [...] May 07, 2024 10:35 AM Reporting Lab: [address] [id number] Performing Lab: [address] [address] MAGNESIUM 1.8 mg/dL 1.6-2.6 May 15, 2024 09:46 AM [facility] (Rip van Wafels) PLASMA Specimen Type: PLASMA Comment: BNP results less than or equal to 100 pg/ml are surgical sales representative of normal values in patients without CHF. BNP results greater than 100 pg/ml are considered abnormal and suggestive of CHF. Higher BNP concentrations in the first 72 hours after Acute Coronary Syndrome are associated with an increased risk of , myocardial infarction and CHF. Ordering Provider: CYNDI STEINBERG Report Released Date/Time: May 07, 2024 10:35 AM Reporting Lab: [address] [address] Performing Lab: [address] [address] BNP (STODDARD) 29 pg/mL 0-100 May 15, 2024 09:46 AM [facility] [address] [facility] PANEL 1 PLASMA Specimen Type: PLASM A [...] May 07, 2024 10:35 AM Reporting Lab: [address] [address] Performing Lab: [address] [address] CREATININE 1.54 mg/dL H 0.72-1.25 UREA NITROGEN [...] and tobacco- related health factors from the [place] facility where the Encounter took place. Current Smoking Status This section includes the most current smoking, or tobacco-related health factor, from the [place] facility where the Encounter took place. Date/Time Current Smoking Status Comment Edis vivary May 07, 2024 10:00 AM VA-TOBACCO NEVER U SED OTHER TYPE [facility] Tobacco Use History This section includes a history of the smoking, or tobacco-related health factors, that were collected on or before the date of the Encounter. The data comes from the [place] facility where the Encounter took place. Date/Time Smoking Status/Tobacco Use Comment Ramu achelen May 07, 2024 10:00 AM VA-TOBACCO NEVER U SED OTHER TYPE [facility] Feb 14, 2024 08:30 AM VA-TOBACCO FORMER USER [facility] Feb 14, 2024 08:30 AM VA-TOBACCO QUIT 15 YRS OR MORE [facility] Jan 10, 2023 11:00 AM VA-TOBACCO NEVER USED [facility] Dec 09, 2021 08:00 AM VA-TOBACCO NEVER USED [facility] Dec 10, 2020 09:30 AM VA-TOBACCO NEVER USED [facility] May 13, 2019 09:09 AM VA-TOBACCO NEVER USED [facility] Apr 03, 2018 09:45 AM VA-TOBACCO NEVER USED [facility] May 07, 2017 10:31 AM V9 LIFETIME NON-USER OF TOBACCO [facility] Apr 06, 2016 10:18 AM V9 LIFETIME NON-USER OF TOBACCO [facility] Jan 26, 2015 08:52 AM V9 LIFETIME NON-USER OF TOBACCO [facility] August 18, 2013 08:27 AM V9 LIFETIME NON-USER OF TOBACCO [facility] Sep 18, 2012 08:39 AM V9 LIFETIME NON-USER OF TOBACCO [facility] Jan 19, 2012 10:42 AM V9 LIFETIME NON-USER OF TOBACCO [facility] Jan 19, 2012 10:42 AM V9 TOBACCO OFFERED [facility] September 13, 2010 10:28 AM V9 LIFETIME NON-USER OF TOBACCO [facility] September 13, 2010 10:28 AM V9 TOBACCO OFFERED [facility] Sep 21, 2006 12:59 PM V9 LIFETIME NON-USER OF TOBACCO [facility] Jan 29, 2006 07:52 AM HF V9 LIFETIME NON-SMOKER [facility] Dec 30, 2004 08:05 AM HF V9 LIFETIME NON-SMOKER [facility] Dec 23, 2003 02:58 PM HF V9 LIFETIME NON-SMOKER [facility] Radiology Reports: +/- 30 days of the [...] Encounter. The data comes from all [facility] facilities. Date/Time Radiology Report Provider Source May 29, 2024 05:[address] PERFORMED BY OTHER FACILITY: ERIK GALLEGO [id number] -1945 Ex Date: MAY 29, 2024@17:13 Req Phys: CYNDI STEINBERG Loc: [facility] PACT LULU 1-2 (Req'g Lo Img Loc: OUTSIDE2 LD CT Service: Unknown (Case [id number] COMPLETE) [address] CT PERFORMED BY OTHER FACIL(CT Detailed) CPT:42085 Reason for Study: Exam imported from outside Clinical History: Original Data for Imported Study Patient Name: ERIK GALLEGO Date: 1945 Sex: M Study Date: 05/29/24 Study Time: 05:13:55 Study Description: CT CHEST PE/ABD/PEL W Referring Physician: TAMMI GEE Series 1: 2 CT files, description: SANITATION MANAGER Series 2: 216 CT files, description: [...] Code: VERIFIED BY: / *ELECTRONICALLY FILED* [facility] May 27, 2024 08:07 AM MYOVIEW(1): ERIK GALLEGO [id number] -1945 M Exm Date: MAY 27, 2024@08:07 Req Phys: CYNDI STEINBERG Pat Loc: [facility] POD PIN SETTER (Req'g Loc) Img Loc: NUCLEAR MEDICINE Service: [place] [address] (Case [id number] COMPLETE) MYOVIEW(1) (NM Detailed) CPT:A9502 Reason for [...] 27, 2024 Date Verified: MAY 27, 2024 Pharmacy Grad Intern E-Sig: Report: STUDY: GXT REPORT: Patient exercised [...] Staff: ANIA ANDRADE APRN, Cardiology Verified by chemical research worker for ANIA ANDRADE /ANIA ESPINOZA-THIERRYD [facility] May 27, 2024 08:07 AM [address]645(D) MYOCARDIAL SPECT(MULTIPLE): JULIÁNMALLYERIKMEGHAN ARMSTRONG [id number] -1945 [facility] Date: MAY 27, 2024@08:07 Req Phys: CYNDI STEINBERG Jovanny Pat Loc: [facility] POD PIN SETTER (Req'g Loc) Img Loc: NUCLEAR MEDICINE Service: [place] [address] THIS IS AN AMENDED REPORT (Case [id number] COMPLETE) 55560(D) MYOCARDIAL SPECT(MULTIPL(NM Detailed) CPT:83256 Proc Modifiers : GXT Reason for Study: [...] 05, 2024 Date Verified: JUN 05, 2024 Pharmacy Grad Intern E-Sig: Report: [facility], [place], [place] STUDY: Treadmill Exercise SPECT Tc-99m myoview [...] performed with tomographic and three-dimensional reconstructions with [employer] NM/CT 640 system. The patient performed treadmill [...] data sets in addition to the conventional hdm-ingkckalwsf-oqbckqzke images. Both filtered back projection and iterative [...] ventricular cavity. 4. SPECT images: Attenuation-corrected and avp-ywjoivfxjjd-trghidclu SPECT images were evaluated. SPECT images demonstrate normal myocardial perfusion. There is a medium size, mild intensity defect located in the fnzmi-iw-lbkpfq inferior myocardium . The defect is fixed [...] Kerri Mena MD, Cardiology Attending /KERRI LONG-Joseph [facility] May 27, 2024 08:07 AM TC-99M FROM NON-HIGHLY ENRICHED URANIUM SOURCE: ERIK GALLEGO [id number] -1945 M Exm Date: MAY 27, 2024@08:07 Req Phys: CYNDI STEINBERG Pat Loc: [facility] POD PIN SETTER (Req'g Loc) Img Loc: NUCLEAR MEDICINE Service: [place] [address] THIS IS AN AMENDED REPORT (Case [id number] COMPLETE) TC-99M FROM NON-HIGHLY ENRICHED U(NM Detailed) [...] 05, 2024 Date Verified: JUN 05, 2024 Pharmacy Grad Intern E-Sig: Report: [facility], [place], [place] STUDY: Treadmill Exercise SPECT Tc-99m myoview [...] performed with tomographic and three-dimensional reconstructions with [employer] NM/CT 640 system. The patient performed treadmill [...] data sets in addition to the conventional ehd-khlhhiccavd-ofkjmkayn images. Both filtered back projection and iterative [...] ventricular cavity. 4. SPECT images: Attenuation-corrected and yqr-dtzqymydwvy-aolnlkuqh SPECT images were evaluated. SPECT images demonstrate normal myocardial perfusion. There is a medium size, mild intensity defect located in the culfi-eu-ylpfgn inferior myocardium . The defect is fixed [...] Kerri Mena MD, Cardiology Attending /KERRI LONG-CDD [facility] May 27, 2024 08:07 AM MYOVIEW(2): ERIK GALLEGO [id number] -1945 M Ex Date: MAY 27, 2024@08:07 Req Phys: STEINBERGCYNDI Petty Gris Loc: DEANNE POD PIN SETTER (Req'g Loc) Img Loc: NUCLEAR MEDICINE Service: [place] [address] THIS IS AN AMENDED REPORT (Case [id number] COMPLETE) MYOVIEW(2) (NM Detailed) CPT:A9502 Reason for [...] 05, 2024 Date Verified: JUN 05, 2024 Pharmacy Grad Intern E-Sig: Report: [facility], [place], [place] STUDY: Treadmill Exercise SPECT Tc-99m myoview [...] performed with tomographic and three-dimensional reconstructions with [employer] NM/CT 640 system. The patient performed treadmill [...] data sets in addition to the conventional spd-orncsszfgxn-hnbbyrtys images. Both filtered back projection and iterative [...] ventricular cavity. 4. SPECT images: Attenuation-corrected and wob-slbhszggjlo-cqqekmtsz SPECT images were evaluated. SPECT images demonstrate normal myocardial perfusion. There is a medium size, mild intensity defect located in the bhztt-cs-ykoxri inferior myocardium . The defect is fixed [...] Kerri Mena MD, Cardiology Attending /KERRI LONG-LOWELL [facility] May 27, 2024 08:07 AM CARD. STRESS TEST W/TREADMILL/...: ERIK GALLEGO [id number] -1945 M Exm Date: MAY 27, 2024@08:07 Req Phys: CYNDI STEINBERG Loc: [facility] POD PIN SETTER (Req'g Loc) Img Loc: NUCLEAR MEDICINE Service: [place] [address] THIS IS AN AMENDED REPORT (Case [id number] COMPLETE) CARD. STRESS TEST W/TREADMILL/...(NM Detailed) CPT:19815 Reason for Study: SEE CLINICAL HISTORY Clinical [...] 05, 2024 Date Verified: JUN 05, 2024 Pharmacy Grad Intern E-Sig: Report: [facility], [place], [place] STUDY: Treadmill Exercise SPECT Tc-99m myoview [...] performed with tomographic and three-dimensional reconstructions with [employer] NM/CT 640 system. The patient performed treadmill [...] data sets in addition to the conventional pzg-wetghhjoett-qdnxcfgzx images. Both filtered back projection and iterative [...] ventricular cavity. 4. SPECT images: Attenuation-corrected and hma-adipbqfejzf-tlisjpxlk SPECT images were evaluated. SPECT images demonstrate normal myocardial perfusion. There is a medium size, mild intensity defect located in the zkkcj-pe-rnceta inferior myocardium . The defect is fixed [...] Kerri Mena MD, Cardiology Attending /KERRI LONG-LOWELL [facility] May 15, 2024 09:57 AM CHEST TWO(2) VIEW PA&LAT: ERIK GALLEGO [id number] -1945 M Exm Date: MAY 15, 2024@09:57 Req Phys: CYNDI STEINBERG Pat Loc: DEANNE PACT PHONE LULU (Req'g Img Loc: [facility] RADIOLOGY Service: [place] [address] (Case [id number] COMPLETE)CHEST TWO(2) VIEW PA&LAT (RAD Detailed) CPT:58928 Reason for Study: dyspnea Clinical History: Report Status: Verified Date Reported: MAY 17, 2024 Date Verified: MAY 17, 2024 Pharmacy Grad Intern E-Sig: Report: CHEST TWO(2) VIEW PA&LAT, 05/15/2024 10:02 AM EST INDICATION: dyspnea COMPARISON: April 16, 2024 Impression: Calcified granuloma right lung apex. No edema or pneumonia. No pleural effusion or pneumothorax. Heart size normal. No acute osseous abnormality. Primary Diagnostic Code: NO ALERT REQUIRED Primary Interpreting Staff: KAILYN STEELE, Staff Physician Verified by chemical research worker for KAILYN STEELE /KAILYN AVILES [facility] Encounter Notes: All associated encounter notes This section contains the clinical notes associated to the Encounter. Date/Time Encounter Note(s) Provider Source May 30, 2024 08:30 AM SCANNED NOTE: LOCAL TITLE: REFUSAL OF TRANSFER TO [facility] SCAN STANDARD TITLE: SCANNED NOTE DATE OF NOTE: MAY 30, 2024@08:30 ENTRY DATE: MAY 30, 2024@09:58:55 AUTHOR: LELIA RODRÍGUEZ EXP COSIGNER: URGENCY: STATUS: COMPLETED SUBJECT: [facility] FORM [phone]-Aptxuom of Transfer to [place] REFUSAL OF TRANSFER TO [facility] SCANNED Has ADDENDA The faxed [facility] FORM [phone] Refusal of Transfer to [facility] was received 05/30/2024 from [facility] refused to transfer 05/30/2024 at 08:30 Form was signed by: Barbra Sherman Witnessed by: Yelitza Ferrell RN The form was scanned into the medical record 05/30/2024 and may be viewed under [facility]. /[place]/ LELIA RODRÍGUEZ Interfacility Record Clerk Salesperson Signed: 05/30/2024 10:04 05/30/2024 ADDENDUM STATUS: COMPLETED [facility] Scanned Document - Addendum. refused to transfer 05/30/2024 at 08:30. SCANNED DOCUMENT SIGNATURE NOT REQUIRED Electronically Filed: 05/30/2024 by: LELIA RODRÍGUEZ Interfacility Record Clerk SalespersonLELIA Easley-LOWELL [facility]
--- OUTSIDE RECORDS SUMMARY | 2024-07-24 21:30 | XMS_ITS | Encounter Summary ---
Author Name [facility] [facility] [place] [facility] [place] Address [address] [place] [address] Care Team Providers Care Level Vial Curvature Gauger Name Role Phone LAURA MCKEON Primary Care [...] PART A Oct 14, 2009 PART A [id number] [phone] Alex CHE PATIENT MEDICARE (WNR) MEDICARE (M) PART B Oct 14, 2009 PART B [id number] [phone] Alex CHE PATIENT MEDICARE (WNR) MEDICARE (M) PART A Oct 14, 2009 PART A [id number] Alex CHE PATIENT MEDICARE (WNR) MEDICARE (M) PART B Oct 14, 2009 PART B [id number] Alex CHE PATIENT MEDICARE (WNR) MEDICARE (M) PART A Oct 14, 2009 PART A [id number] Alex CHE PATIENT MEDICARE (WNR) MEDICARE (M) PART B Oct 14, 2009 PART B [id number] Alex CHE PATIENT Selected Encounter This section includes the information on record at [place] for the Encounter. Date/Time Encounter Type Encounter Description Reason Provider Source Feb 28, 2024 01:30 PM OFFICE O/P EST LOW 20 MIN PLASTIC SURGERY ICD-10-CM M67.441 Ganglion, right hand AGUSTIN HARRIS IHJennifer Encounter Template Text not used by [place] Assessments - Encounter Diagnoses This section includes the primary and secondary diagnoses documented for the Encounter. Date/Time Primary/Secondary Diagnosis Diagnosis Name Provider Source Mar 12, 2024 10:53 AM PRIMARY Ganglion, right hand AGUSTIN HARRIS [facility] Mar 12, 2024 10:53 AM SECONDARY Encntr for surgical aftcr fol surgery on the skin, subcu AGUSTIN HARRISJoseph [facility] Plan of Treatment: Future Appointments (+ 6 [...] 29, 2024 09:20 AM [facility] Mar 04, 2024 09:00 AM AM[facility]ATORY - [facility]CHIATRY [facility] Mar 17, 2024 01:00 PM [facility] Mar 18, 2024 08:30 AM [facility] Mar 18, 2024 10:00 AM [facility] Mar 28, 2024 08:00 AM AMBULATORY - NONE [facility]IV [facility] Apr 01, 2024 10:00 AM AMBULATORY - [facility]CHIATRY [facility] Apr 15, 2024 09:00 AM [facility] Apr 16, 2024 11:35 AM AMBULAT[facility] - MEDICINE [facility] Apr 25, 2024 08:30 AM AMBULATORY - SURGERY [place] [facility] Apr 29, 2024 10:00 AM AMBULATORY - MEDICINE [facility] May 06, 2024 10:00 AM [facility] May 07, 2024 10:00 AM AMBULATORY - MEDICINE [facility] May 15, 2024 10:30 AM AMBULATORY - REHAB MEDICIN E [facility] May 20, 2024 08:00 AM AM[facility]ULATORY - NONE [place] [facility] May 20, 2024 10:00 AM AMBULATORY - MEDICINE [facility] May 27, 2024 08:00 AM [facility] Jun 06, 2024 08:00 AM [facility] Jun 10, 2024 08:50 AM AMBULATORY - MEDICINE [facility] Jun 10, 2024 11:00 AM AMBULATORY - PSYCHIATRY [facility] Lab Results: +/- 30 days of the encounter This section includes the Chemistry and Hematology Lab Results on record with [place] for the patient. Radiology Reports and Pathology Reports are provided separately, in subsequent sections. Lab Results This section contains the Chemistry/Hematology Results that were resulted 30 days before or 30 daysafter the date of the Encounter. Date/Time Source Result Type Result - Unit Interpretation Reference Range Specimen Type Comment Feb 14, 2024 10:41 AM [facility] MICROALBUMIN/CREAT RATIO URINE Specimen Type: URINE No comment entered. Ordering Provider: LAURA MCKEON Report Released Date/Time: Feb 14, 2024 09:03 AM Reporting Lab: [address] [address] Performing Lab: [address] [address] CREATININE 133.0 mg/dL MICROALBUMIN QUANT 5.8 mg/L 0.0-30.0 .MICROALBUMIN/CREA RATIO 4.4 ug/mg{creat} Feb 14, 2024 10:41 AM [facility] DRUG SCREEN EXPANDED IN-HOUSE URINE [...] 14, 2024 09:03 AM Reporting Lab: [address] [address] Performing Lab: [address] [address] TETRAHYDROCANNABINOL SCREEN NEG Cuto ff < 50 [...] < 1 Feb 14, 2024 10:19 AM [facility] LIPID PROFILE PLASMA Specimen Type: [...] 14, 2024 09:03 AM Reporting Lab: [address] [address] Performing Lab: [address] [address] CHOLESTEROL 161 mg/dL 0-199 TRIGLYCERIDE 84 mg/dL 0-149 HDL CHOLESTEROL 54 mg/dL 40-69 DIRECT LDL CHOL. 95 mg/dL 0-100 Feb 14, 2024 10:19 AM [facility] GLYCOHEMOGLOBIN BLOOD Specimen Type: BLOOD Comment: [facility] guidelines for A1c interpretation: Glycemic control targets are based on Shared Decision Making between clinicians and patients. Criteria used to establish an A1c target recommendation can be found at https://www.[place].gov/qualityandpatientsafety/ and include the use of result accuracy [...] 8.73 and 9.27. Ref: https://ngsp.org/CAPdata.asp. The in-house [employer] D-100 analyzer has a historical CV <= 2%. Contact the laboratory for further performance characteristics of this assay. Ordering Provider: LAURA MCKEON Report Released Date/Time: Feb 14, 2024 09:03 AM Reporting Lab: [address] [address] Performing Lab: [address] [address] GLYCOHEMOGLOBIN 6.0 4.4-6.4 Feb 14, 2024 10:19 AM [facility] B12 VITAMIN PLASMA Specimen Type: [...] Feb 14, 2024 09:03 AM Reporting Lab: [facility] [address] [place] [address] Performing Lab: [address] [address] B12 VITAMIN 761 pg/mL 213-816 Feb 14, 2024 10:19 AM [facility] TSH PLASMA Specimen Type: PLASM A Comment: [...] 14, 2024 09:03 AM Reporting Lab: [address] [address] Performing Lab: [address] [address] TSH 1.1076 m[IU]/mL 0.3500-4.9400 Feb 14, 2024 10:19 AM [facility] PANEL 5 PLASMA Specimen Type: PLASM [...] 14, 2024 09:03 AM Reporting Lab: [address] [address] Performing Lab: [address] [address] CREATININE 1.38 mg/dL H 0.72-1.25 UREA NITROGEN [...] (CKD-EPI) 52 Feb 14, 2024 10:19 AM [facility] CBC/PLT BLOOD Specimen Type: BLOOD No comment entered. Ordering Provider: LAURA MCKEON Report Released Date/Time: Feb 14, 2024 09:03 AM Reporting Lab: [address] [address] Performing Lab: [address] [address] WBC 6.7 10*3/uL 5.0-10.0 RBC 5.17 10*6/uL 4.6-6.2 HGB 15.8 g/dL 14.0-18.0 HCT 47.1 42.0-52.0 MCV 91.1 fL 80.0-94.0 MCH 30.6 pg 27.0-31.0 MCHC 33.5 g/dL 32.0-36.0 PLT 257 10*3/uL 150-450 MPV 10.5 fL 9.0-13.1 RDW 14.4 11.0-16.0 NRBC 0.0 0.0-0.0 Feb 14, 2024 10:19 AM [facility] 25-OH VITAMIN D SERUM Specime [...] 14, 2024 09:03 AM Reporting Lab: [address] [address] Performing Lab: [address] [address] 25-OH VITAMIN D 42.5 ng/mL 20.0-50.0 Jan 31, 2024 11:09 AM [facility] GLUCOSE-HAND MONITOR CAPILLARY Specime n Type: CAPILLARY Comment: $ Test performed by: [id number] Meter #: [id number] Ordering Provider: PELON CHEUNG Report Released Date/Time: Feb 04, 2024 07:19 AM Reporting Lab: [address] [address] Performing Lab: [address] [address] GLUCOSE-HAND MONITOR 125 mg/dL H 71-99 Pathology [...] ENTRY DATE: FEB 05, 2024@15:20:14 AUTHOR: ROSS DOBSONIGNER: URGENCY: STATUS: COMPLETED $APHDR Reporting Lab: [facility] [CLIA# [id number]] [address] [place] [address] - - - - - - - [...] - - - - $TEXT Submitted by: [email or web address] Date obtained: Jan 31, 2024 14:21 - [...] submitted in one cassette. CPT CODE - 25851 MICROSCOPIC EXAM/DIAGNOSIS: Right long finger cyst, excision: -Findings consistent with digital mucous cyst. /es/ Ross Dobson MD Pathologist Signed Feb 05, 2024@15:20 Performing Laboratory: Surgical Pathology Report Performed By: [facility] [CLIA# [id number]] [address] [place] [address] $FTR - - - - - - - - - - - - - - - - - - - - - - - - - - - - - - - - - - - - - - - - (End of report) ROSS DOBSON MD [facility] Date Feb 05, 2024 - - - - - - - - - - - - - - - - - - - - - - - - - - - - - - - - - - - - - - - - ADELSO CHE STANDARD FORM 515 ID:[id number] SEX:M :1945 AGE: 78 LOC:PATH PCP: Laura Mckeon MD /peyton/ Ross Dobson MD Pathologist Signed: 02/05/2024 15:20 ROSS DOBSON-[facility] Jan 31, 2024 12:13 PM LR SURGICAL PATHOL OGY REPORT: LOCAL TITLE: LR SURGICAL PATHOLOGY REPORT DATE OF NOTE: JAN 31, 2024@12:13:13 ENTRY DATE: JAN 31, 2024@12:13:13 AUTHOR: JUDY SIGALA EXP COSIGNER: URGENCY: STATUS: COMPLETED $APHDR Reporting Lab: [facility] [IA# [id number]] [address] [place] [id number] - - - - - - - [...] MOHS EXCISION BIOPSY ACCESSION NO. [id number] 24 [id number] RULE OUT SQUAMOUS CELL CARCINOMA LEFT PREAURICULAR [...] CELL CARCINOMA LEFT PREAURICULAR CHEEK. CPT CODE: 75105 I ACTED BOTH THE SURGEON AND THE PATHOLOGIST FOR THIS CASE. PLEASE SEE CORRESPONDING MOHS NOTE IN CPRS AND MOHS MAP SCANNED TO [employer]. /peyton/ JUDY SIGALA Chief, Dermatology Signed Jan 31, 2024@12:13 Performing Laboratory: Surgical Pathology Report Performed By: [facility] [CLIA# [id number]] [address] [place] [address] $FTR - - - - - - - - - - - - - - - - - - - - - - - - - - - - - - - - - - - - - - - - (End of report) JUDY SIGALA MD [facility] Date Jan 22, 2024 - - - - - - - - - - - - - - - - - - - - - - - - - - - - - - - - - - - - - - - - ADELSO CHE STANDARD FORM 515 ID:[id number] SEX:M :1945 AGE: 78 LOC:DERM PCP: Laura Mckeon MD /peyton/ JUDY SIGALA Chief, Dermatology Signed: 01/31/2024 12:13 JUDY SIGALA-[facility] Encounter Notes: All associated encounter notes This section contains the clinical notes associated to the Encounter. Date/Time Encounter Note(s) Provider Source Feb 28, 2024 02:19 PM PLASTIC SURGERY [facility] OUTPATIENT NOTE: LOCAL TITLE: PLASTIC SURGERY CLINIC NURSING EXIT NOTE STANDARD TITLE: PLASTIC SURGERY NURSING OUTPATIENT NOTE DATE OF NOTE: FEB 28, 2024@14:19 ENTRY DATE: FEB 28, 2024@14:19:58 AUTHOR: COLLINS PETER EXP COSIGNER: URGENCY: STATUS: COMPLETED Chart reviewed. Pt seen by PA who provided care to the patient. Pt exited clinic per PA. Mucous cyst right long finger s/p excision 01/31/2024 -Slow healing without complication -Initiate Cephalexin 500 mg p.o. 3 times daily x 7 days -OT for fingercot to be worn as directed daily. -Follow-up with PLS service on 03/20/2024; contact information provided to patient should he need to see us sooner than this date. Plan: RTC 03/20 RTC order placed /peyton/ COLLINS PETER Surgery Criminal Justice Instructor Signed: 02/28/2024 14:21 COLLINS PETER-[facility] Feb 28, 2024 01:33 PM SURGERY NURSING NO TE: LOCAL TITLE: SURGERY CLINIC INTAKE NOTE STANDARD TITLE: SURGERY NURSING NOTE DATE OF NOTE: FEB 28, 2024@13:33 ENTRY DATE: FEB 28, 2024@13:33:50 AUTHOR: JOE HODGE COSIGNER: URGENCY: STATUS: COMPLETED The patient was [...] of active outpatient prescriptions dispensed from this [place] (local) and dispensed from another [place] or [place] facility (remote) as well as inpatient orders (local pending and active), local clinic medications, locally documented non-VA medications, and local prescriptions that have or been discontinued in the past 90 days. Non-VA Meds Last Documented On: Data not found NOTE The display of VA prescriptions dispensed from another [place] or [place] facility (remote) is limited to active outpatient prescription entries matched to National Drug File at the originating site and may not include some items such as investigational drugs, compounds, etc. NOT INCLUDED IN THIS LIST: Medications self-entered by the patient into personal health records (i.e. [employer]) are NOT included in this list. Non-VA medications documented outside this [place], remote inpatient orders (regardless of status) and remote clinic medications are NOT included in this list. The patient and provider must always discuss medications the patient is taking, regardless of where the medication was dispensed or obtained. OUTPT ALOH 160/MG CARB 105MG CHEW TAB (Status = Active) CHEW 1 TABLET BY MOUTH AFTER MEALS NEEDED FOR INDIGESTION/REFLUX Rx# [id number] Last Released: 02/06/24 Qty/Days Supply: 100/30 Rx Expiration Date: 10/26/24 Refills Remainin Indication: FOR STOMACH OUTPT CEFUROXIME AXETIL 500MG TAB (Status = ) TAKE ONE TABLET BY MOUTH TWICE A DAY FOR EAR OR THROAT INFECTION Rx# [id number] Last Released: 10/31/23 Qty/Days Supply: 20 Rx Expiration Date: 11/30/23 Refills Remainin Indication: FOR EAR OR THROAT INFECTION OUTPT CHOLECALCIF 25MCG (D3-1,000UNIT) TAB (Status = Discontinued) TAKE FOUR TABLETS BY MOUTH DAILY FOR VITAMIN D SUPPLEMENT Rx# [id number] Last Released: 11/30/23 Qty/Days Supply: 400/90 Rx Expiration Date: 01/11/24 Refills Remainin OUTPT CHOLECALCIF 25MCG (D3-1,000UNIT) TAB (Status = Active) TAKE FOUR TABLETS BY MOUTH DAILY FOR VITAMIN D SUPPLEMENT Rx# [id number] Last Released: 02/19/24 Qty/Days Supply: 400/90 Rx Expiration Date: 02/14/25 Refills Remainin OUTPT CLINDAMYCIN PHOSPHATE 1% TOP GEL (Status = Discontinued) APPLY SMALL AMOUNT TO AFFECTED AREA TWICE A DAY FOR INFECTION Rx# [id number] Last Released: 04/24/23 Qty/Days Supply: 60 Rx Expiration Date: 03/15/24 Refills Remainin Indication: FOR INFECTION OUTPT CLOTRIMAZOLE 1% TOP SOLN (Status = Active) APPLY SMALL AMOUNT TO AFFECTED AREA TWICE A DAY FOR FUNGAL INFECTION Rx# [id number] Last Released: 02/05/24 Qty/Days Supply: 30 Rx Expiration Date: 07/13/24 Refills Remainin Indication: FOR FUNGAL INFECTION OUTPT CYANOCOBALAMIN 1000MCG TAB (Status = Discontinued) TAKE ONE TABLET BY MOUTH DAILY FOR VITAMIN B12 SUPPLEMENT Rx# [id number] Last Released: 12/03/23 Qty/Days Supply: 90/ Rx Expiration Date: 07/16/24 Refills Remainin Indication: FOR VITAMIN B12 SUPPLEMENT OUTPT CYANOCOBALAMIN 1000MCG TAB (Status = Active/Suspended) TAKE ONE TABLET BY MOUTH DAILY FOR VITAMIN B12 SUPPLEMENT Rx# [id number] Last Released: Qt/Days Supply: Rx Expiration Date: 02/14/25 Refills Remainin Indication: FOR VITAMIN B12 SUPPLEMENT OUTPT DICLOFENAC NA 1% TOP GEL (Status = Discontinued) APPLY SMALL AMOUNT TO AFFECTED AREA EVERY 6 HOURS NEEDED FOR SHOULDER PAIN Rx# [id number] Last Released: 11/30/23 Qty/Days Supply: 300/ Rx Expiration Date: 01/11/24 Refills Remainin OUTPT DICLOFENAC NA 1% TOP GEL (Status = Active) APPLY SMALL AMOUNT TO AFFECTED AREA EVERY 6 HOURS NEEDED FOR SHOULDER PAIN Rx# [id number] Last Released: 02/18/24 Qty/Days Supply: 300/90 Rx Expiration Date: 02/14/25 Refills Remainin OUTPT FLUTICASONE PROP 50MCG 120D NASAL INHL (Status = Discontinued) USE 2 SPRAYS IN EACH NOSTRIL DAILY FOR NASAL ALLERGY Rx# [id number] Last Released: 11/30/23 Qty/Days Supply: Rx Expiration Date: 01/11/24 Refills Remainin OUTPT FLUTICASONE PROP 50MCG 120D NASAL INHL (Status = Active) USE 2 SPRAYS IN EACH NOSTRIL DAILY FOR NASAL ALLERGY Rx# [id number] Last Released: 02/19/24 Qty/Days Supply: Rx Expiration Date: 02/14/25 Refills Remainin OUTPT GABAPENTIN 300MG CAP (Status = Discontinued) TAKE ONE CAPSULE BY MOUTH EVERY MORNING AND TAKE ONE CAPSULE AT NOON AND TAKE TWO CAPSULES EVERY EVENING FOR PAIN Rx# [id number] Last Released: 02/07/24 Qty/Days Supply: 120/30 Rx Expiration Date: 10/23/24 Refills Remainin Indication: FOR NERVE PAIN OUTPT GABAPENTIN 300MG CAP (Status = Active) TAKE ONE CAPSULE BY MOUTH EVERY MORNING AND TAKE ONE CAPSULE AT NOON AND TAKE TWO CAPSULES EVERY EVENING FOR PAIN Rx# [id number] Last Released: 02/16/24 Qty/Days Supply: 120/30 Rx Expiration Date: 02/14/25 Refills Remainin Indication: FOR NERVE PAIN OUTPT HC 1%/NEOMYCIN 3.5MG/POLYMYXIN OTIC SOLN (Status = ) INSTILL 4 DROPS IN LEFT EAR THREE TIMES A DAY FOR INFECTION Rx# [id number] Last Released: 10/31/23 Qty/Days Supply: 01/20 Rx Expiration Date: 11/30/23 Refills Remainin Indication: FOR INFECTION OUTPT HCTZ 12.5MG/LOSARTAN 100MG TAB (Status = Discontinued) TAKE 1 TABLET BY MOUTH DAILY FOR BLOOD PRESSURE/HEART Rx# [id number] Last Released: 12/01/23 Qty/Days Supply: 90/ Rx Expiration Date: 07/16/24 Refills Remainin Indication: FOR BLOOD PRESSURE/HEART OUTPT HCTZ 12.5MG/LOSARTAN 100MG TAB (Status = Active/Suspended) TAKE 1 TABLET BY MOUTH DAILY FOR BLOOD PRESSURE/HEART Rx# [id number] Last Released: Qt/Days Supply: 9090 Rx Expiration Date: 02/14/25 Refills Remainin Indication: FOR BLOOD PRESSURE/HEART OUTPT HYDROPHILIC (EQV EUCERIN) TOP CREAM (Status = Discontinued) APPLY SMALL AMOUNT TO AFFECTED AREA TWICE A DAY NEEDED FOR DRY SKIN Rx# [id number] Last Released: 04/23/23 Qty/Days Supply: 454/30 Rx Expiration Date: 01/11/24 Refills Remainin OUTPT LIDOCAINE 5% 5IN X 6IN PATCH (Status = Discontinued) APPLY 2 PATCHES TO SKIN DAILY FOR PAIN -LEAVE ON 12 HOURS, THEN REMOVE FOR 12 HOURS Rx# [id number] Last Released: 11/30/23 Qty/Days Supply: 60/30 Rx Expiration Date: 01/11/24 Refills Remainin Indication: FOR PAIN OUTPT LIDOCAINE 5% 5IN X 6IN PATCH (Status = Active) APPLY 2 PATCHES TO SKIN DAILY FOR PAIN -LEAVE ON 12 HOURS, THEN REMOVE FOR 12 HOURS Rx# [id number] Last Released: 02/27/24 Qty/Days Supply: 60/30 Rx Expiration Date: 02/14/25 Refills Remainin Indication: FOR PAIN OUTPT LORATADINE 10MG TAB (Status = Discontinued) TAKE ONE TABLET BY MOUTH DAILY FOR ALLERGIES Rx# [id number] Last Released: 11/30/23 Qty/Days Supply: 90 Rx Expiration Date: 07/16/24 Refills Remainin OUTPT LORATADINE 10MG TAB (Status = Active/Suspended) TAKE ONE TABLET BY MOUTH DAILY FOR ALLERGIES Rx# [id number] Last Released: Qty/Days Supply: Rx Expiration Date: 02/14/25 Refills Remainin OUTPT METFORMIN HCL 1000MG TAB (Status = Discontinued) TAKE ONE TABLET BY MOUTH TWICE A DAY FOR DIABETES Rx# [id number] Last Released: 11/30/23 Qty/Days Supply: Rx Expiration Date: 01/11/24 Refills Remainin OUTPT METFORMIN HCL 1000MG TAB (Status = Active) TAKE ONE TABLET BY MOUTH TWICE A DAY FOR DIABETES Rx# [id number] Last Released: 02/19/24 Qty/Days Supply: Rx Expiration Date: 02/14/25 Refills Remainin OUTPT MIRTAZAPINE 15MG TAB (Status = Discontinued) TAKE ONE-HALF TABLET BY MOUTH AT BEDTIME FOR SLEEP Rx# [id number] Last Released: 10/26/23 Qty/Days Supply: 45 Rx Expiration Date: 12/26/23 Refills Remainin Indication: FOR SLEEP OUTPT MIRTAZAPINE 15MG TAB (Status = Active/Suspended) TAKE ONE-HALF TABLET BY MOUTH AT BEDTIME FOR SLEEP Rx# [id number] Last Released: 01/17/24 Qty/Days Supply: 45 Rx Expiration Date: 12/27/24 Refills Remainin Indication: FOR SLEEP OUTPT MUPIROCIN 2% OINT (Status = Active) APPLY SMALL AMOUNT TO AFFECTED AREA DAILY TO PREVENT INFECTION -APPLY DAILY TO TREATMENT SITES AFTER CLEANING. THIS IS A TOPICAL ANTIBIOTIC. Rx# [id number] Last Released: 02/19/24 Qty/Days Supply: Rx Expiration Date: 01/22/25 Refills Remainin Indication: TO PREVENT INFECTION OUTPT PANTOPRAZOLE NA 40MG EC TAB (Status = Active) TAKE ONE TABLET BY MOUTH TWICE A DAY 30 MINUTES BEFORE A MEAL FOR STOMACH -TAKE ON AN EMPTY STOMACH. Rx# [id number] Last Released: 11/30/23 Qty/Days Supply: 180/90 Rx Expiration Date: 06/26/24 Refills Remainin Indication: FOR STOMACH OUTPT PIOGLITAZONE HCL 30MG TAB (Status = Discontinued) TAKE ONE TABLET BY MOUTH DAILY FOR DIABETES Rx# [id number] Last Released: 12/01/23 Qty/Days Supply: 90/90 Rx Expiration Date: 01/11/24 Refills Remainin Indication: FOR BLOOD SUGAR OUTPT PIOGLITAZONE HCL 30MG TAB (Status = Active/Suspended) TAKE ONE TABLET BY MOUTH DAILY FOR DIABETES Rx# [id number] Last Released: Qt/Days Supply: 90 Rx Expiration Date: 02/14/25 Refills Remainin Indication: FOR BLOOD SUGAR OUTPT PRAZOSIN HCL 5MG CAP (Status = Discontinued) TAKE ONE CAPSULE BY MOUTH AT BEDTIME FOR NIGHTMARES Rx# [id number] Last Released: 10/26/23 Qty/Days Supply: 90/ Rx Expiration Date: 12/26/23 Refills Remainin Indication: FOR NIGHTMARES OUTPT PRAZOSIN HCL 5MG CAP (Status = Active/Suspended) TAKE ONE CAPSULE BY MOUTH AT BEDTIME FOR NIGHTMARES Rx# [id number] Last Released: 01/17/24 Qty/Days Supply: 90/90 Rx Expiration Date: 12/27/24 Refills Remainin Indication: FOR NIGHTMARES OUTPT SERTRALINE HCL 100MG TAB (Status = Discontinued) TAKE ONE AND ONE-HALF TABLETS BY MOUTH EVERY MORNING FOR MOOD Rx# [id number] Last Released: 10/11/23 Qty/Days Supply: 135/90 Rx Expiration Date: 12/26/23 Refills Remainin Indication: FOR MOOD OUTPT SERTRALINE HCL 100MG TAB (Status = Active/Suspended) TAKE ONE AND ONE-HALF TABLETS BY MOUTH EVERY MORNING FOR MOOD Rx# [id number] Last Released: 01/01/24 Qty/Days Supply: 135/90 Rx Expiration Date: 12/27/24 Refills Remainin Indication: FOR MOOD OUTPT TRAMADOL HCL 50MG TAB (Status = Active) TAKE ONE TABLET BY MOUTH EVERY 6 HOURS NEEDED FOR PAIN Rx# [id number] Last Released: 01/31/24 Qty/Days Supply: 20/5 Rx Expiration Date: 03/01/24 Refills Remainin Indication: FOR PAIN OUTPT TRIAMCINOLONE ACETONIDE 0.1% OINT (Status = Active) APPLY SMALL AMOUNT TO AFFECTED AREA TWICE A DAY FOR SKIN RASH Rx# [id number] Last Released: 02/07/24 Qty/Days Supply: Rx Expiration Date: 11/29/24 Refills Remainin Indication: FOR SKIN RASH SUPPLIES OUTPT ACCU-CHEK GUIDE (GLUCOSE) TEST STRIP (Status = Discontinued) USE 1 STRIP TO TEST BLOOD SUGAR 3-4 TIMES WEEKLY Rx# [id number] Last Released: 11/30/23 Qty/Days Supply: Rx Expiration Date: 01/11/24 Refills Remainin OUTPT ACCU-CHEK GUIDE (GLUCOSE) TEST STRIP (Status = Active) USE 1 STRIP TO TEST BLOOD SUGAR 3-4 TIMES WEEKLY Rx# [id number] Last Released: 02/19/24 Qty/Days Supply: Rx Expiration Date: 02/14/25 Refills Remainin /peyton/ JOE HODGE CNA Ancillary [employer] Machine Operator Signed: 02/28/2024 13:34 JOE HODGE-[facility] Feb 28, 2024 01:27 PM PLASTIC SURGERY OU TPATIENT NOTE: LOCAL TITLE: PLASTIC SURGERY CLINIC PROGRESS NOTE STANDARD TITLE: PLASTIC SURGERY OUTPATIENT NOTE DATE OF NOTE: FEB 28, 2024@13:27 ENTRY DATE: FEB 28, 2024@13:28:06 AUTHOR: QUITA HARRIS EXP COSIGNER: URGENCY: STATUS: COMPLETED Recent VITALS: Pain: 2 (02/14/2024 09:51) BP: 138/73 (02/14/2024 09:51) Temp: 97.4 F [36.3 C] (02/14/2024 08:25) Resp: 16 (02/14/2024 08:25) Pulse: 75 (02/14/2024 09:51) FEB 14, 2024@09:51 -- PULSE OXIMETRY: 98 Ht: 70 in [177.8 cm] (01/22/2024 11:17) Wt: 202 lb [91.63 kg] (02/14/2024 08:25) Active problems - Computerized Problem List is [...] bronchus, and lung 10. Osteoarthritis (SNOMED CT 505745983) 11. Gastro-esophageal reflux disease with esophagitis (SNOMED CT 932644871) 12. Allergic rhinitis * 13. Hypertension (SNOMED CT 11220599) 14. 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 Gout * Active Outpatient Medications (including Supplies): Active Outpatient Medications Status 1) ACCU-CHEK GUIDE (GLUCOSE) TEST STRIP USE 1 STRIP TO ACTIVE TEST BLOOD SUGAR 3-4 TIMES WEEKLY 2) ALOH 160/MG CARB 105MG CHEW TAB CHEW 1 TABLET BY ACTIVE MOUTH AFTER MEALS NEEDED FOR INDIGESTION/REFLUX 3) CHOLECALCIF 25MCG (D3-1,000UNIT) TAB TAKE FOUR ACTIVE TABLETS BY MOUTH DAILY FOR VITAMIN D SUPPLEMENT 4) CLOTRIMAZOLE 1% TOP SOLN APPLY SMALL AMOUNT TO ACTIVE AFFECTED AREA TWICE A DAY FOR FUNGAL INFECTION 5) CYANOCOBALAMIN 1000MCG TAB TAKE ONE TABLET BY MOUTH ACTIVE (S) DAILY FOR VITAMIN B12 SUPPLEMENT 6) DICLOFENAC NA 1% TOP GEL APPLY SMALL AMOUNT TO ACTIVE AFFECTED AREA EVERY 6 HOURS NEEDED FOR SHOULDER PAIN 7) FLUTICASONE PROP 50MCG 120D NASAL INHL USE 2 SPRAYS ACTIVE IN EACH NOSTRIL DAILY FOR NASAL ALLERGY 8) GABAPENTIN 300MG CAP TAKE ONE CAPSULE BY MOUTH EVERY ACTIVE MORNING AND TAKE ONE CAPSULE AT NOON AND TAKE TWO CAPSULES EVERY EVENING FOR PAIN 9) HCTZ 12.5MG/LOSARTAN 100MG TAB TAKE 1 TABLET BY MOUTH ACTIVE (S) DAILY FOR BLOOD PRESSURE/HEART 10) LIDOCAINE 5% 5IN X 6IN PATCH APPLY 2 PATCHES TO SKIN ACTIVE DAILY FOR PAIN -LEAVE ON 12 HOURS, THEN REMOVE FOR 12 HOURS 11) LORATADINE 10MG TAB TAKE ONE TABLET BY MOUTH DAILY ACTIVE (S) FOR ALLERGIES 12) METFORMIN HCL 1000MG TAB TAKE ONE TABLET BY MOUTH ACTIVE TWICE A DAY FOR DIABETES 13) MIRTAZAPINE 15MG TAB TAKE ONE-HALF TABLET BY MOUTH AT ACTIVE (S) BEDTIME FOR SLEEP 14) MUPIROCIN 2% OINT APPLY SMALL AMOUNT TO AFFECTED AREA ACTIVE DAILY TO PREVENT INFECTION -APPLY DAILY TO TREATMENT SITES AFTER CLEANING. THIS IS A TOPICAL ANTIBIOTIC. 15) PANTOPRAZOLE NA 40MG EC TAB TAKE ONE TABLET BY MOUTH ACTIVE TWICE A DAY 30 MINUTES BEFORE A MEAL FOR STOMACH -TAKE ON AN EMPTY STOMACH. 16) PIOGLITAZONE HCL 30MG TAB TAKE ONE TABLET BY MOUTH ACTIVE (S) DAILY FOR DIABETES 17) PRAZOSIN HCL 5MG CAP TAKE ONE CAPSULE BY MOUTH AT ACTIVE (S) BEDTIME FOR NIGHTMARES 18) SERTRALINE HCL 100MG TAB TAKE ONE AND ONE-HALF ACTIVE (S) TABLETS BY MOUTH EVERY MORNING FOR MOOD 19) TRAMADOL HCL 50MG TAB TAKE ONE TABLET BY MOUTH EVERY ACTIVE 6 HOURS NEEDED FOR PAIN 20) TRIAMCINOLONE ACETONIDE 0.1% OINT APPLY SMALL AMOUNT ACTIVE TO AFFECTED AREA TWICE A DAY FOR SKIN RASH Nursing note reviewed PMHx/HPI: Mr. Adelso che is a 78-year-old male RHD who is s/p excision of mucous cyst from the right long finger 01/31/2024. He was most recently seen by PLS service on 02/14/2024 for his first postop visit.. The patient states the incision area is tender to palpation with mild localized edema. There is no evidence of any erythema or exudate. The patient denies any presence of fever. Patient remains active and able to complete all ADLs independently. ROS: 14-point review of systems negative except as noted in PMHx/HPI PE: GEN: A&Ox3, NAD SKIN: Warm, dry, normal hair distribution w/appropriate skin turgor HEENT: Normocephalic, atraumatic, PERRLA, MMM PULM: N1., chest contour with comfortable breathing. Good inspiratory effort with symmetrical rise ABD: Non-distended, soft, nontender, w/o palpable organomegaly CARDIAC: Warm, well perfused, RRR EXT: Focused exam of the right long finger reveals an appropriately healing surgical incision without signs of sutures. The surgical site demonstrates minor edema and exquisite tenderness to palpation. There is no localized erythema, tactile warmth, or exudate. Patient has full range of motion of the digit. Capillary refills less than 2 seconds. NEURO: CN II-XII grossly intact, no obvious neurological deficits. PSYCH: Euthymic, congruent mood. Assessment/Plan: 1. Mucous cyst right long finger s/p excision 01/31/2024 -Slow healing without complication -Initiate Cephalexin 500 mg p.o. 3 times daily x 7 days -OT for fingercot to be worn as directed daily. -Follow-up with PLS service on 03/20/2024; contact information provided to patient should he need to see us sooner than this date. Time Spent: Pt. seen for 26 minutes for initial new patient/follow-up [facility] visit. This time was used to review recent tests, imaging, and laboratory results. Obtained and reviewed separate patient histories. Performed medically appropriate examination. Ordered medications, laboratory tests and other medically indicated procedures. Documented clinical information in the EMR and communicated with other health care taker. /peyton/ QUITA HARRIS Physician Real Estate Intern Signed: 02/28/2024 13:51 QUITA HARRIS[facility]
--- OUTSIDE RECORDS SUMMARY | 2024-07-24 21:30 | XMS_ITS ---
Author Name [facility] [place] [facility] [place] [facility] [place] Address [address] [place] [id number] Care Team Providers Care Client Relation Specialist Name Role Phone LAURA MCKEON Primary Care [...] PART A Oct 14, 2009 PART A [id number] Alex GALLEGO PATIENT MEDICARE (WNR) MEDICARE (M) PART B Oct 14, 2009 PART B [id number] Alex GAL[place] PATIENT MEDICARE (WNR) MEDICARE (M) PART A Oct 14, 2009 PART A [id number] Alex [place] PATIENT MEDICARE (WNR) MEDICARE (M) PART B Oct 14, 2009 PART B [id number] Alex [place] PATIENT MEDICARE (WNR) MEDICARE (M) PART B Oct 14, 2009 PART B [id number] Alex GAL[place] PATIENT MEDICARE (WNR) MEDICARE (M) PART A Oct 14, 2009 PART A [id number] Alex GALLEGO PATIENT Selected Encounter This section includes the information on record at [place] for the Encounter. Date/Time Encounter Type Encounter Description Reason Pro vider Source Nov 05, 2023 09:40 AM Outpatient Encounter ADMIN PAT ACTIVTIES (MASNONCT) [...] Date/Time Appointment Type Appointme nt Facility Name Nov 09, 2023 09:00 AM AMBULATORY - SURGERY [place] [facility] Nov 19, 2023 09:00 AM AMBULATORY - MEDICINE [facility] Nov 19, 2023 12:30 PM AMBULATORY - SURGERY [facility] [facility] Nov 28, 2023 01:00 PM AMBULATORY - NONE [place] [facility] Nov 29, 2023 08:00 AM AMBULATORY - NONE [place] [facility] Dec 13, 2023 08:30 AM AMBULATORY - SURGERY [facility] [facility] Dec 14, 2023 11:00 AM AMBULATORY - NONE [place] [facility] Dec 18, 2023 08:00 AM AMBULATORY - NONE [place] [facility] Dec 27, 2023 09:30 AM AMBULATORY - PSYCHIATRY [place] [facility] Dec 27, 2023 03:00 PM AMBULATORY - NONE [place] [facility] Jan 04, 2024 09:00 AM AMBULATORY - MEDICINE [facility] Jan 10, 2024 01:30 PM AMBULATORY - NEUROLOGY [facility] Jan 14, 2024 08:00 AM AMBULATORY - NONE [place] [facility] Jan 22, 2024 08:30 AM AMBULATORY - MEDICINE JAYNE SINGH [facility] Jan 22, 2024 01:00 PM AMBULATORY - SURGERY DEANNEIN JEWEL [facility] Jan 29, 2024 01:00 PM AMBULATORY - PSYCHIATRY COREY NICHOLAS [facility] Feb 14, 2024 08:30 AM [facility] Feb 14, 2024 10:00 AM AMBULATORY - SURGERY [place] [facility] Feb 27, 2024 02:00 PM [facility] Feb 28, 2024 01:30 PM [facility] Radiology Reports: +/- 30 [...] comes from all [place] treatment facilities. Date/Time Radiology Report Provider Source Nov 01, 2023 07:[id number] PERFORMED BY OTHER FACILITY: [facility] [id number] -1945 [facility] Date: NOV 01, 2023@19:31 Req Phys: LAURA MCKEON Pat Loc: DEANNE PACT LULU 1-2 (Req'g Lo Img Loc: OUTSIDE2 LD CT Service: Unknown (Case [id number] COMPLETE) [id number] CT PERFORMED BY OTHER FACIL(CT Detailed) CPT:46165 Reason for Study: Exam imported from outside Clinical History: Original Data for Imported Study Patient Name: ERIK GALLEGO Date: 1945 Sex: M Study Date: 11/01/23 Study Time: 07:31:21 Study Description: CT FACIAL BONES W/O Referring Physician: BRISEIDA TREVINO Series 1: 2 CT files, description: HEALTH LEAD Series 2: 74 CT files, description: 2.5 mm standard Series 3: 62 CT files, description: facial bones cor Series 4: 69 CT files, description: facial bones sag Series 5: 1 SR file, description: Dose Record Series 6: 1 CT file, description: Dose Report Series 7: 1 CT file, description: REQ Series 8: 74 CT files, description: 2.5MM BONE Report Status: Electronically Filed Date Reported: NOV 07, 2023 Report: Electronically generated report for outside study. Impression: Electronically generated report for outside study. Primary Diagnostic Code: VERIFIED BY: / *ELECTRONICALLY FILED* [facility] Nov 01, 2023 07:[id number] PERFORMED BY OTHER FACILITY: ERIK GALLEGO [id number] -1945 M Exm Date: NOV 01, 2023@19:29 Req Phys: LAURA MCKEON Loc: DEANNE PACT LULU 1-2 (Req'g Lo Img Loc: OUTSIDE2 LD CT Service: Unknown (Case [id number] COMPLETE) [id number] CT PERFORMED BY OTHER FACIL(CT Detailed) CPT:66347 Reason for Study: Exam imported from outside Clinical History: Original Data for Imported Study Patient Name: ERIK GALLEGO Date: 1945 Sex: M Study Date: 11/01/23 Study Time: :24 Study Description: CT BRAIN HEAD WO Referring Physician: BRISEIDA TREVINO Series 1: 2 CT files, description: HEALTH LEAD Series 2: 34 CT files, description: AXIAL BONE/METS Series 3: 44 CT files, description: CORONAL BRAIN Series 4: 1 SR file, description: Dose Record Series 5: 1 CT file, description: Dose Report Series 6: 1 CT file, description: REQ Series 7: 34 CT files, description: axial brain Report Status: Electronically Filed Date Reported: NOV 07, 2023 Report: Electronically generated report for outside study. Impression: Electronically generated report for outside study. Primary Diagnostic Code: VERIFIED BY: / *ELECTRONICALLY FILED* [facility] Pathology Reports: +/- 30 days of [...] treatment facilities. Date/Time Pathology Report Provider Source Nov 22, 2023 02:52 PM LR SURGICAL PATHOL OGY REPORT: LOCAL TITLE: LR SURGICAL PATHOLOGY REPORT DATE OF NOTE: NOV 22, 2023@14:52:40 ENTRY DATE: NOV 22, 2023@14:52:40 AUTHOR: FINA EDGAR EXP COSIGNER: URGENCY: STATUS: COMPLETED $APHDR Reporting Lab: [facility] [CLIA# [id number]] [address] [place] [address] - - - - - - - [...] - $TEXT Submitted by: DERM Date obtained: Nov 19, 2023 - - [...] entirely in one cassette. CPT CODE - 41822 MICROSCOPIC EXAM/DIAGNOSIS: Skin, preauricular cheek, left, shave biopsy: -Squamous cell carcinoma, involving the deep margin. /es/ FINA EDGAR Pathologist Signed Nov 22, 2023@14:52 Performing Laboratory: Surgical Pathology Report Performed By: [facility] [CLIA# [id number]] [address] [place] [address] $FTR - - - - - - - - - - - - - - - - - - - - - - - - - - - - - - - - - - - - - - - - (End of report) FINA EDGAR [facility] Date Nov 22, 2023 - - - - - - - - - - - - - - - - - - - - - - - - - - - - - - - - - - - - - - - - ERIK GALLEGO STANDARD FORM 515 ID:[id number] SEX:M :1945 AGE: 78 LOC:PATH PCP: Laura Mckeon MD /peyton/ FINA EDGAR Pathologist Signed: 11/22/2023 14:52 [facility] Encounter Notes: All associated encounter notes This section contains the clinical notes associated to the Encounter. Date/Time Encounter Note(s) Provider Source Nov 05, 2023 09:40 AM ADMINISTRATIVE NOT E: LOCAL TITLE: CLERICAL/ADMIN NOTE STANDARD TITLE: ADMINISTRATIVE NOTE DATE OF NOTE: NOV 05, 2023@09:40 ENTRY DATE: NOV 05, 2023@09:40:09 AUTHOR: DEANDRA VEGA EXP COSIGNER: URGENCY: STATUS: COMPLETED presented to dental clinic supervisor front to schedule 11/05/23 rtc appt for 3HR [place] LD TUES 6X11 BR[place] PREP. Scheduled the following per veterans dd/t:DEANNE DEN ARV LD Jan 14, 2024@08:00. Letter given. /peyton/ Deandra Vega MSA Signed: 11/05/2023 09:41 [facility]
--- OUTSIDE RECORDS SUMMARY | 2024-07-24 21:30 | XMS_ITS | Encounter Summary ---
Author Name [facility] Address [address] [place] [address] Care Team Providers Care Junior Accountant Name Role Phone LAURA STEINBERG Primary Care [...] PART A Oct 14, 2009 PART A [id number] [phone] Alex GALLEGO PATIENT MEDICARE (WNR) MEDICARE (M) PART B Oct 14, 2009 PART B [id number] Alex GALLEGO PATIENT MEDICARE (WNR) MEDICARE (M) PART B Oct 14, 2009 PART B [id number] Alex GALLEGO PATIENT MEDICARE (WNR) MEDICARE (M) PART A Oct 14, 2009 PART A [id number] [phone] Alex GALLEGO PATIENT MEDICARE (WNR) MEDICARE (M) PART A Oct 14, 2009 PART A [id number] Alex GALLEGO PATIENT MEDICARE (WNR) MEDICARE (M) PART B Oct 14, 2009 PART B [id number] Alex GALLEGO PATIENT Selected Encounter This section includes the information on record at [place] for the Encounter. Date/Time Encounter Type Encounter Description Reason Provider Source Jan 22, 2024 01:00 PM OFFICE O/P EST LOW 20 MIN PLASTIC SURGERY ICD-10-CM M67.40 Ganglion, unspecified site DENEEN CASTRO RD IHE Encounter Template Text not used by [place] Assessments - Encounter Diagnoses This section includes the primary and secondary diagnoses documented for the Encounter. Date/Time Primary/Secondary Diagnosis Diagnosis Name Provider Source Feb 05, 2024 12:35 PM PRIMARY Ganglion, unspecified site AGUSTIN CASTRO [facility] Plan of Treatment: Future Appointments (+ 6 months) and Future Tests (+/- 45 days) The Plan of Treatment section includes future care activities for the patient from all [place] treatmentfacilities. This section includes future appointments and future orders which are active, pending or scheduled. Future Appointments This section includes appointments that were scheduled to occur 6 months from the date of the Encounter, up to a maximum of 20 appointments. The data comes from all [place] treatment facilities. Appointment Date/Time Appointment Type Appointme nt Facility Name Jan 29, 2024 01:00 PM AMBULATORY - PSYCHIATRY [facility] Feb 14, 2024 08:30 AM AMBULATORY - NONE [facility] Feb 14, 2024 10:00 AM AMBULATORY - SURGERY [place] [facility] Feb 27, 2024 02:00 PM AMBULATORY - NONE [place] [facility] Feb 28, 2024 01:30 PM AMBULATORY - SURGERY [place] [facility] Feb 28, 2024 02:30 PM [facility]UL[facility] Feb 29, 2024 09:20 AM [facility] Mar 04, 2024 09:00 AM AMBULATORY - PSYCHIATRY [facility] Mar 17, 2024 01:00 PM [facility] Mar 18, 2024 08:30 AM AMBULATORY - REHAB MEDICIN E [facility] Mar 18, 2024 10:00 AM AMBULATORY - SURGERY [place] [facility] Mar 28, 2024 08:00 AM AMBULATORY - NONE [place] [facility] Apr 01, 2024 10:00 AM AMBULATORY - PSYCHIATRY LE CRISTOPHER [facility] Apr 15, 2024 09:00 AM AMBULATORY - PSYCHIATRY LE OXANAGARY [facility] Apr 16, 2024 11:35 AM AMBULATORY - MEDICINE [facility]NE [facility] Apr 25, 2024 08:30 AM AMBULATORY - SURGERY [facility] Apr 29, 2024 10:00 AM AMBULATORY - MEDICINE JAYNE [facility] May 06, 2024 10:00 AM AMBULATORY - PSYCHIATRY [facility] May 07, 2024 10:00 AM AMBULATORY - MEDICINE [facility] May 15, 2024 10:30 AM AMBULATORY - REHAB MEDICIN E [facility] Lab Results: +/- 30 days of [...] Type Comment Feb 14, 2024 10:41 AM [facility] N MICROALBUMIN/CREAT RATIO URINE Specimen Type: URINE No comment entered. Ordering Provider: LAURA STEINBERG Report Released Date/Time: Feb 14, 2024 09:03 AM Reporting Lab: [address] [address] Performing Lab: [address] [address] CREATININE 133.0 mg/dL MICROALBUMIN QUANT 5.8 mg/L 0.0-30.0 .MICROALBUMIN/CREA RATIO 4.4 ug/mg{creat} Feb 14, 2024 10:41 AM [facility] DRUG SCREEN EXPANDED IN-HOUSE URINE Specimen [...] Feb 14, 2024 09:03 AM Reporting Lab: [address] [address] Performing Lab: [address] [address] TETRAHYDROCANNABINOL SCREEN NEG Cuto ff < 50 [...] < 1 Feb 14, 2024 10:19 AM [facility] GLYCOHEMOGLOBIN BLOOD Specimen Type: BLOOD Comment: [facility] guidelines for A1c interpretation: Glycemic control targets are based on Shared Decision Making between clinicians and patients. Criteria used to establish an A1c target recommendation can be found at https://www.sd.gov/qualityandpatientsafety/ and include the use of result accuracy [...] 8.73 and 9.27. Ref: https://ngsp.org/CAPdata.asp. The in-house [employer] Plan D-100 analyzer has a historical CV <= 2%. Contact the laboratory for further performance characteristics of this assay. Ordering Provider: LAURA STEINBERG Report Released Date/Time: Feb 14, 2024 09:03 AM Reporting Lab: [facility] [address] [facility] [address] Performing Lab: [address] [address] GLYCOHEMOGLOBIN 6.0 4.4-6.4 Feb 14, 2024 10:19 AM [facility] TSH PLASMA Specimen Type: PLASM A Comment: [...] Feb 14, 2024 09:03 AM Reporting Lab: [address] [address] Performing Lab: [address] [address] TSH 1.1076 m[IU]/mL 0.3500-4.9400 Feb 14, 2024 10:19 AM [facility] CBC/PLT BLOOD Specimen Type: BLOOD No comment entered. Ordering Provider: LAURA STEINBERG Report Released Date/Time: Feb 14, 2024 09:03 AM Reporting Lab: [address] [address] Performing Lab: [address] [address] WBC 6.7 10*3/uL 5.0-10.0 RBC 5.17 10*6/uL 4.6-6.2 HGB 15.8 g/dL 14.0-18.0 HCT 47.1 42.0-52.0 MCV 91.1 fL 80.0-94.0 MCH 30.6 pg 27.0-31.0 MCHC 33.5 g/dL 32.0-36.0 PLT 257 10*3/uL 150-450 MPV 10.5 fL 9.0-13.1 RDW 14.4 11.0-16.0 NRBC 0.0 0.0-0.0 Feb 14, 2024 10:19 AM [facility] PANEL 5 PLASMA Specimen Type: PLASM [...] of sample is too elevated. Ordering Provider: ALURA STEINBERG Report Released Date/Time: Feb 14, 2024 09:03 AM Reporting Lab: [address] [address] Performing Lab: [address] [address] CREATININE 1.38 mg/dL H 0.72-1.25 UREA NITROGEN [...] (CKD-EPI) 52 Feb 14, 2024 10:19 AM [facility] LIPID PROFILE PLASMA Specimen Type: PLASM [...] Feb 14, 2024 09:03 AM Reporting Lab: [facility] [address] [place] [id number] Performing Lab: [facility] [address] [facility] [address] CHOLESTEROL 161 mg/dL 0-199 TRIGLYCERIDE 84 mg/dL 0-149 HDL CHOLESTEROL 54 mg/dL 40-69 DIRECT LDL CHOL. 95 mg/dL 0-100 Feb 14, 2024 10:19 AM [facility] B12 VITAMIN PLASMA Specimen Type: PLASM A [...] Feb 14, 2024 09:03 AM Reporting Lab: [address] [address] Performing Lab: [address] [address] B12 VITAMIN 761 pg/mL 213-816 Feb 14, 2024 10:19 AM [facility] 25-OH VITAMIN D SERUM Specime n [...] Feb 14, 2024 09:03 AM Reporting Lab: [address] [address] Performing Lab: [address] [address] 25-OH VITAMIN D 42.5 ng/mL 20.0-50.0 Jan 31, 2024 11:09 AM [facility] GLUCOSE-HAND MONITOR CAPILLARY Specime n Type: CAPILLARY Comment: $ Test performed by: [id number] Meter #: [id number] Ordering Provider: PELON CHEUNG Report Released Date/Time: Feb 04, 2024 07:19 AM Reporting Lab: [address] [address] Performing Lab: [address] [address] GLUCOSE-HAND MONITOR 125 mg/dL H 71-99 Pathology [...] $APHDR Reporting Lab: [facility] [IA# [id number]] [address] [place] [address] - - - - - - - [...] submitted in one cassette. CPT CODE - 98072 MICROSCOPIC EXAM/DIAGNOSIS: Right long finger cyst, excision: -Findings consistent with digital mucous cyst. /es/ Ross Dobson MD Pathologist Signed Feb 05, 2024@15:20 Performing Laboratory: Surgical Pathology Report Performed By: [facility] [IA# [id number]] [address] [place] [address] $FTR - - - - - - - - - - - - - - - - - - - - - - - - - - - - - - - - - - - - - - - - (End of report) ROSS DOBSON MD [facility] Date Feb 05, 2024 - - - - - - - - - - - - - - - - - - - - - - - - - - - - - - - - - - - - - - - - ADELSO GALLEGO STANDARD FORM 515 ID:[id number] SEX:M :1945 AGE: 78 LOC:PATH PCP: Laura Steinberg MD /peyton/ Ross Dobson MD Pathologist Signed: 02/05/2024 15:20 ROSS DOBSON-[facility] Jan 31, 2024 12:13 PM LR SURGICAL PATHOL OGY REPORT: LOCAL TITLE: LR SURGICAL PATHOLOGY REPORT DATE OF NOTE: JAN 31, 2024@12:13:13 ENTRY DATE: JAN 31, 2024@12:13:13 AUTHOR: JUDY SIGALA EXP COSIGNER: URGENCY: STATUS: COMPLETED $APHDR Reporting Lab: [facility] [CLIA# [id number]] [address] [place] [address] - - - - - - - [...] MOHS EXCISION BIOPSY ACCESSION NO. [id number] RULE OUT SQUAMOUS CELL CARCINOMA LEFT PREAURICULAR [...] CELL CARCINOMA LEFT PREAURICULAR CHEEK. CPT CODE: 26953 I ACTED BOTH THE SURGEON AND THE PATHOLOGIST FOR THIS CASE. PLEASE SEE CORRESPONDING MOHS NOTE IN CPRS AND MOHS MAP SCANNED TO [employer]. /es/ JUDY SIGALA Chief, Dermatology Signed Jan 31, 2024@12:13 Performing Laboratory: Surgical Pathology Report Performed By: [facility] [CLIA# [id number]] [address] [place] [address] $FTR - - - - - - - - - - - - - - - - - - - - - - - - - - - - - - - - - - - - - - - - (End of report) JUDY SIGALA MD [facility] Date Jan 22, 2024 - - - - - - - - - - - - - - - - - - - - - - - - - - - - - - - - - - - - - - - - ADELSO GALLEGO STANDARD FORM 515 ID:[id number] SEX:M :1945 AGE: 78 LOC:DERM PCP: Laura Steinberg MD /peyton/ JUDY SIGALA Chief, Dermatology Signed: 01/31/2024 12:13 [facility] Encounter Notes: All associated encounter notes This section contains the clinical notes associated to the Encounter. Date/Time Encounter Note(s) Provider Source Jan 30, 2024 03:34 PM EDUCATION NOTE: LOCAL TITLE: PATIENT EDUCATION NOTE STANDARD TITLE: EDUCATION NOTE DATE OF NOTE: JAN 30, 2024@15:34 ENTRY DATE: JAN 30, 2024@15:34:17 AUTHOR: COLLINS PETER EXP COSIGNER: URGENCY: STATUS: COMPLETED Preferred language for discussing health care Andorran NEW ASSESSMENT LEARNING BARRIERS Hearing Barrier Comment: pt [place] READING LIMITATIONS PREFERRED METHODS FOR LEARNING Written/Printed Material Verbal INTERESTED IN LEARNING (MOTIVATED) Yes, interested in learning what? PERSON BEING EDUCATED TODAY Patient Education was provided on the following topics Other Topic GERNERAL SURGERY INSTRUCTIONS, SURGICAL SCRUB, SSI,PAIN MANAGMENT RESPONSE Verbalizes Peyman /peyton/ COLLINS PETER Surgery Transition Coach Signed: 01/30/2024 15:36 [facility] Jan 30, 2024 03:26 PM SURGERY CASE MANAG ER NOTE: LOCAL TITLE: SURGERY WATER TREATMENT TECHNICIAN PRE-SURGERY ASSESSMENT STANDARD TITLE: SURGERY WATER TREATMENT TECHNICIAN NOTE DATE OF NOTE: JAN 30, 2024@15:26 ENTRY DATE: JAN 30, 2024@15:26:23 AUTHOR: COLLINS PETER EXP COSIGNER: URGENCY: STATUS: COMPLETED Living arrangements: Lives with others Daughter Comment: Granddaughter Is there anyone to help you following surgery? Yes Comment: Daughter Functional Status: Independent ADLS No assistance required Ambulatory Assistive Device No Independent Patient Cognition/Functional status/Memory Loss No problems identified Paralysis/Weakness/CVA/TIA No Cardiac History No Abnormal fatigue within the past 30 days No Chest Pain within the past 30 days No Dyspnea within the past 30 days No Comment: Tobacco Products NEVER (life-time non user) tobacco ETOH Never used alcohol Sleep Apnea Yes Compliance with C-PAP treatment Good results >4x week Open Wounds No Unintentional Weight Loss within the past 6 months No Comments: Below Weight Issues: None Chemotherapy/ Immunotherapy/ Biological therapy within past 90 days No Radiation within past 90 days No Blood Bank Prior Blood Transfusion or Blood Products Radha /peyton/ COLLINS PETER Surgery Transition Coach Signed: 01/30/2024 15:33 COLLINS PETER [facility] Jan 30, 2024 03:22 PM ADDENDUM: LOCAL TITLE: Addendum STANDARD TITLE: ADDENDUM DATE OF NOTE: JAN 30, 2024@15:22 ENTRY DATE: JAN 30, 2024@15:22:59 AUTHOR: COLLINS PETER EXP COSIGNER: JOSEY BURR URGENCY: STATUS: COMPLETED Please schedule ZEYAD-CD Please add the patient to the surgery wait package. Procedure:Excision of right long finger mucous cyst Laterality:right Attending:edward Anesthesia type:MAC /peyton/ COLLINS PETER Surgery Transition Coach Signed: 01/30/2024 15:24 /LIGIA Zaldivar RN CNOR OR NURSE TOWBOAT ENGINEER - SURGICAL SERVICES Cosigned: 01/31/2024 07:38 Receipt Acknowledged By: 01/31/2024 07:02 /peyton/ DENZEL CHÁVEZ PSA, SURGERY SERVICE 02/04/2024 13:02 /peyton/ MAXINE PAULA --- Original Document --- 01/30/24 SURGERY NURSING EXIT NOTE: PLASTIC SURGERY NURSING EXIT: Surgery Date: Jan Attending Surgeon: Edward Surgery To Be Performed: Excision of right long finger mucous cys Post-op Clinic: You will be returning to the Plastic Surgery Post-Op Clinic after surgery. This appointment will be scheduled by the hospital prior to discharge. Contact Info: Plastic Surgery Transition Coach TOLL FREE The surgical services typically provide pain control for your post-operative pain after surgery for 30 days. If you have pain before surgery please contact your Primary Care Provider. The Surgeon will determine your restrictions AFTER your surgery. We recommend that you check with your employer to see if any paperwork needs to be completed by the surgeon. If you need paperwork completed you will need to take it to the Release of Information office located on the 2nd floor room C-225. You will need to sign a release of information in the medical records office BEFORE any paperwork can be completed by the physicians. 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 You can contact the Release of Information office at [phone], ext: [phone]. You may also request a return to work statement from the surgeon at your Post-op clinic visit. SURGERY INSTRUCTIONS: Pre-Op: TAKE NOTHING BY MOUTH, INCLUDING WATER, COFFEE, SOFT DRINKS, CHEWING GUM AND CHEWING TOBACCO, AFTER 12:00 MIDNIGHT THE NIGHT BEFORE YOUR SURGERY. Do NOT take any medications the morning of surgery. You will get a phone call the business day before surgery to inform you what time you need to be there the day of surgery. The Surgery office typically makes their calls after 2:00pm. If you have not received a call by 4pm, please call [phone], ext: [phone]. The morning of your surgery, take the tower elevators to the 3rd floor, turn left off the elevators and go to [address] [place] [address], they will get you ready for surgery there. You will need to bring a form of identification with you the day of surgery. Please wear clothing that is easy to remove/put back on. You should leave ALL jewelry and valuables at home the day of surgery, also DO NOT bring large amounts of sanchez. DO NOT wear make-up, fingernail mozambican or hair accessories to the hospital. PLEASE NOTE: Although you are provided a date and time for your surgery, this does not guarantee you will be taken to the operating room at that time on that date. Often, due to emergency situations, surgery dates and times must be delayed or rescheduled. We will try to provide you with as much notice as possible. Please DO NOT shave your surgical site prior to surgery as this increases the risk for infection. If it is necessary the surgical staff will remove any unwanted hair the day of surgery. If you need to cancel or re-schedule your surgery, please try to notify the surgery office at least 48 hours in advance, this would allow the opportunity to see if another would be able to come during that time. You can call the Staff Ranker Care Program at [phone] or Toll Free at , or during business hours contact your Surgery Transition Coach. After Surgery: If you are going to be discharged home within 24 hours of surgery, you will need someone to drive you home. If you are going to be riding [employer] transportation, you will still need a responsible adult to accompany you that day, the [employer] and [employer] drivers WILL NOT be held responsible for you after having anesthesia. Please note that taking pain medication may impair your ability to drive, it is recommended that you not drive after surgery if you are requiring narcotic pain control. It is also recommended that you have a responsible adult with you for 24 hours after your surgery. /peyton/ COLLINS PETER Surgery Transition Coach Signed: 01/30/2024 15:22 /LIGIA Zaldivar RN CNOR OR NURSE TOWBOAT ENGINEER - SURGICAL SERVICES Cosigned: 01/31/2024 07:37 02/04/2024 ADDENDUM STATUS: UNSIGNED You may not VIEW this UNSIGNED Addendum. [facility] Jan 30, 2024 03:21 PM SURGERY NURSING NO TE: LOCAL TITLE: SURGERY NURSING EXIT NOTE STANDARD TITLE: SURGERY NURSING NOTE DATE OF NOTE: JAN 30, 2024@15:21 ENTRY DATE: JAN 30, 2024@15:21:48 AUTHOR: COLLINS PETER COSIGNER: JOSEY BURR URGENCY: STATUS: COMPLETED SURGERY NURSING EXIT NOTE Has ADDENDA PLASTIC SURGERY NURSING EXIT: Surgery Date: Jan Attending Surgeon: Edward Surgery To Be Performed: Excision of right long finger mucous cys Post-op Clinic: You will be returning to the Plastic Surgery Post-Op Clinic after surgery. This appointment will be scheduled by the hospital prior to discharge. Contact Info: Plastic Surgery Transition Coach TOLL FREE The surgical services typically provide pain control for your post-operative pain after surgery for 30 days. If you have pain before surgery please contact your Primary Care Provider. The Surgeon will determine your restrictions AFTER your surgery. We recommend that you check with your employer to see if any paperwork needs to be completed by the surgeon. If you need paperwork completed you will need to take it to the Release of Information office located on the 2nd floor room C-225. You will need to sign a release of information in the medical records office BEFORE any paperwork can be completed by the physicians. 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 You can contact the Release of Information office at [phone], ext: [phone]. You may also request a return to work statement from the surgeon at your Post-op clinic visit. SURGERY INSTRUCTIONS: Pre-Op: TAKE NOTHING BY MOUTH, INCLUDING WATER, COFFEE, SOFT DRINKS, CHEWING GUM AND CHEWING TOBACCO, AFTER 12:00 MIDNIGHT THE NIGHT BEFORE YOUR SURGERY. Do NOT take any medications the morning of surgery. You will get a phone call the business day before surgery to inform you what time you need to be there the day of surgery. The Surgery office typically makes their calls after 2:00pm. If you have not received a call by 4pm, please call [phone], ext: [phone]. The morning of your surgery, take the tower elevators to the 3rd floor, turn left off the elevators and go to [address] [place] [address], they will get you ready for surgery there. You will need to bring a form of identification with you the day of surgery. Please wear clothing that is easy to remove/put back on. You should leave ALL jewelry and valuables at home the day of surgery, also DO NOT bring large amounts of sanchez. DO NOT wear make-up, fingernail mozambican or hair accessories to the hospital. PLEASE NOTE: Although you are provided a date and time for your surgery, this does not guarantee you will be taken to the operating room at that time on that date. Often, due to emergency situations, surgery dates and times must be delayed or rescheduled. We will try to provide you with as much notice as possible. Please DO NOT shave your surgical site prior to surgery as this increases the risk for infection. If it is necessary the surgical staff will remove any unwanted hair the day of surgery. If you need to cancel or re-schedule your surgery, please try to notify the surgery office at least 48 hours in advance, this would allow the opportunity to see if another would be able to come during that time. You can call the Staff Ranker Care Program at [phone] or Toll Free at , or during business hours contact your Surgery Transition Coach. After Surgery: If you are going to be discharged home within 24 hours of surgery, you will need someone to drive you home. If you are going to be riding [facility] transportation, you will still need a responsible adult to accompany you that day, the [employer] and [employer] drivers WILL NOT be held responsible for you after having anesthesia. Please note that taking pain medication may impair your ability to drive, it is recommended that you not drive after surgery if you are requiring narcotic pain control. It is also recommended that you have a responsible adult with you for 24 hours after your surgery. /jocy PETER Surgery Transition Coach Signed: 01/30/2024 15:22 /LIGIA Zaldivar RN CNOR OR NURSE TOWBOAT ENGINEER - SURGICAL SERVICES Cosigned: 01/31/2024 07:37 01/30/2024 ADDENDUM STATUS: COMPLETED Please schedule -CD Please add the patient to the surgery wait package. Procedure:Excision of right long finger mucous cyst Laterality:right Attending:edward Anesthesia type:KHRIS /jocy PETER Surgery Transition Coach Signed: 01/30/2024 15:24 /LIGIA Zaldivar RN CNOR OR NURSE TOWBOAT ENGINEER - SURGICAL SERVICES Cosigned: 01/31/2024 07:38 Receipt Acknowledged By: 01/31/2024 07:02 /peyton/ DENZEL CHÁVEZ PSA, SURGERY SERVICE 02/04/2024 13:02 /peyton/ MAXINE PAULA 02/04/2024 ADDENDUM STATUS: COMPLETED FED 01/30/2024 RTC w/ PID of 02/14/2024 dispositioned as is scheduled for post-op with Dr. Cheung on 02/13. /peyton/ MAXINE PAULA Signed: 02/04/2024 13:04 [facility] Jan 30, 2024 03:18 PM PLASTIC SURGERY NU RSING OUTPATIENT NOTE: LOCAL TITLE: PLASTIC SURGERY CLINIC NURSING EXIT NOTE STANDARD TITLE: PLASTIC SURGERY NURSING OUTPATIENT NOTE DATE OF NOTE: JAN 30, 2024@15:18 ENTRY DATE: JAN 30, 2024@15:18:18 AUTHOR: COLLINS PETER EXP COSIGNER: URGENCY: STATUS: COMPLETED Chart reviewed. Pt seen by PA who provided care to the patient. Pt exited clinic per PA. Mucous cyst dorsum of right long finger adjacent to eponychial fold -Scheduled elective surgical repair 01/31/2024 30 minutes local with MAC -Consent completed today -STORM report completed today Plan: RTC in 2 weeks post op RTC order placed /peyton/ COLLINS PETER Surgery Transition Coach Signed: 01/30/2024 15:40 [facility] Jan 22, 2024 12:02 PM PHARMACY MEDICATIO N MGT NOTE: LOCAL TITLE: STORM - OPIOID RISK REVIEW-DATA BASED - NEW OPIOID STANDARD TITLE: PHARMACY MEDICATION MGT NOTE DATE OF NOTE: JAN 22, 2024@12:02 ENTRY DATE: JAN 22, 2024@12:02:21 AUTHOR: QUITA CASTRO EXP COSIGNER: URGENCY: STATUS: COMPLETED OPIOID RISK REVIEW-DATA BASED - NEW OPIOID START The Veterans chart has been reviewed using information from the Stratification Tool for Opioid Risk Mitigation (STORM) report. The has been identified within the following risk category for suicide-related event or overdose in the next year: Medium /peyton/ QUITA CASTRO Physician Enroute Controller Signed: 01/22/2024 12:03 QUITA CASTRO-D [facility] Jan 22, 2024 11:23 AM PLASTIC SURGERY H & P NOTE: LOCAL TITLE: PLASTIC SURGERY H & P STANDARD TITLE: PLASTIC SURGERY H & P NOTE DATE OF NOTE: JAN 22, 2024@11:23 ENTRY DATE: JAN 22, 2024@11:23:40 AUTHOR: QUITA CASTRO EXP COSIGNER: PELON CHEUNG URGENCY: STATUS: COMPLETED PLASTIC SURGERY H & P Has ADDENDA PLASTIC SURGERY HISTORY AND PHYSICAL, CONSENT, STORM PAST MEDICAL HX: Active problems - Computerized [...] bronchus, and lung 10. Osteoarthritis (SNOMED CT 290294580) 11. Gastro-esophageal reflux disease with esophagitis (SNOMED CT 246507622) 12. Allergic rhinitis * 13. Hypertension (SNOMED CT 23711810) 14. Diabetes mellitus (SNOMED CT 81388841) 15. NEPHROLITHIASIS ALLERGIES: LISINOPRIL, FOSINOPRIL, PERCOCET MEDICATIONS: Medicine/Supplies Qty [...] SKIN RASH NON-VA MEDS - NONE FOUND Nursing note reviewed PMHx/HPI: Mr. Adelso gallego is a 78-year-old male RHD with PMHx notable for DM2 on metformin with most recent A1c 6.9, HTN, OA, allergic rhinitis, JAYLA, and GERD who was seen by PLS service on consultation 12/13/2019 for for evaluation of right long finger mucous cyst. The cyst has been present for the past several months and waxes and wanes in size. It will periodically enlarged to the point where will rupture and drain. This growth is also associated with some nail deformity. Patient relates that this cyst when enlarged can be quite painful. The patient reports having a history of a RRR F distal phalanx fracture in the , however, has had no other hand trauma. He is active and able to complete all ADLs independently. 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 Good inspiratory effort with symmetrical rise ABD: Non-distended, soft, nontender, w/o palpable organomegaly CARDIAC: Warm, well perfused, RRR EXT: Focused exam of the RUE demonstrates active and passive F ROM at the elbow, wrist, and all digits. Patient is able to make a composite fist. Motor strength is 5+/5. SILT R/M/U. Dorsal Right long finger demonstrates a well- circumscribed 0.4 cm cyst adjacent to the eponychial fold with associated grooving nail deformity. The cyst is tender to direct palpation. 2-point discrimination is intact distally. Radial and ulnar pulses are 2+/4. Capillary refill is less than 2 seconds. NEURO: CN II-XII grossly intact, no obvious neurological deficits. PSYCH: Euthymic, congruent mood. LABS: CBC/PLT, BLOOD - Partial Panel found WBC , BLOOD, 07/16/23@0859 9.3 K/cmm (5.0 - 10.0) RBC, BLOOD, 07/16/2359 5.22 M/cmm (4.6 - 6.2) HGB, BLOOD, 07/16/23@59 15.5 g/dL (14.0 - 18.0) HCT, BLOOD, 07/16/2359 47.9 % (42.0 - 52.0) MCV, BLOOD, 07/16/2359 91.8 fL (80.0 - 94.0) MCH, BLOOD, 07/16/2359 29.7 pg (27.0 - 31.0) MCHC, BLOOD, 07/16/23@0859 32.4 g/dL (32.0 - 36.0) RDW, BLOOD, 07/16/2359 14.2 % (11.0 - 16.0) PLT, BLOOD, 07/16/23@0859 254 K/cmm (150 - 450) MPV, BLOOD, 07/16/2359 11.0 fL (9.0 - 13.1) NRBC, BLOOD, 07/16/230859 0.0 % (0.0 - 0.0) PANEL 1 Danyell. date GLUCOSE BUN CREAT SODIUM K CHLOR CO2 07/16/23 08:59 179 H 19 1.44 H 138 4.7 102 26 PANEL 2 Danyell. date TOT PRO ALBUMIN SGOT SGPT Z ALK PHZ DIRECTZ TOTAL 07/16/23 08:59 7.1 4.3 18 22 72 1.1 PT:12.7 seconds (10/05/2022 12:35) Assessment/Plan: 1. Mucous cyst dorsum of right long finger adjacent to eponychial fold -Scheduled elective surgical repair 01/31/2024 30 minutes local with MAC -Consent completed today -STORM report completed today Time Spent: Pt. seen for 20 minutes for initial new patient/follow-up Plastic Surgery Clinic visit. This time was used to review recent tests, imaging, and laboratory results. Obtained and reviewed separate patient histories. Performed medically appropriate examination. Ordered medications, laboratory tests and other medically indicated procedures. Documented clinical information in the EMR and communicated with other health home care chaplain. /peyton/ QUITA CASTRO Physician Enroute Controller Signed: 01/22/2024 12:01 /peyton/ PELON CHEUNG staff physician Cosigned: 01/24/2024 13:38 01/24/2024 ADDENDUM STATUS: COMPLETED 78 year old iwth Mucous cyst dorsum of right long finger adjacent to eponychial fold for excision. I have discussed the patient with Josr Castro and I agree with his findings, note and plan. /peyton/ PELON CHEUNG staff physician Signed: 01/24/2024 13:37 QUITA CASTRO-Joseph [facility]
--- OUTSIDE RECORDS SUMMARY | 2024-07-24 21:30 | XMS_ITS | Encounter Summary ---
Author Name [facility] [place] [facility] [place] Address [address] [place] [address] Care Team Providers Care Truss Builder Name Role Phone LAURA STEINBERG Primary Care [...] PART A Oct 14, 2009 PART A [id number] Alex MISHRA PATIENT MEDICARE (WNR) MEDICARE (M) PART B Oct 14, 2009 PART B [id number] Alex MISHRA PATIENT MEDICARE (WNR) MEDICARE (M) PART A Oct 14, 2009 PART A [id number] Alex MISHRA PATIENT MEDICARE (WNR) MEDICARE (M) PART B Oct 14, 2009 PART B [id number] Alex MISHRA PATIENT MEDICARE (WNR) MEDICARE (M) PART A Oct 14, 2009 PART A [id number] Alex MISHRA PATIENT MEDICARE (WNR) MEDICARE (M) PART B Oct 14, 2009 PART B [id number] Alex MISHRA PATIENT Selected Encounter This section includes the information on record at [place] for the Encounter. Date/Time Encounter Type Encounter Description Reason Pro vider Source Apr 29, 2024 10:00 AM OFFICE O/P EST MOD 30 MIN GASTROENTEROLOGY ICD-10-CM R13.10 Dysphagia, unspecified TOÑITO,W ARTIE H IHE Encounter Template Text not used by [place] Assessments - Encounter Diagnoses This section includes the primary and secondary diagnoses documented for the Encounter. Date/Time Primary/Secondary Diagnosis Diagnosis Name Provider Source May 09, 2024 02:13 PM PRIMARY Dysphagia, unspecified MARY PINEDA [facility] May 09, 2024 02:13 PM SECONDARY Gastro-esophageal reflux disease without esophagitis MARY PINEDA [facility] May 09, 2024 02:13 PM SECONDARY Intra-abd and pelvic swelling, mass and lump, unsp site MARY PINEDA [facility] Plan of Treatment: Future Appointments (+ 6 months) and Future Tests (+/- 45 days) The Plan of Treatment section includes future care activities for the patient from [facility] [place] [facility] This section includes future appointments and future orders which are active, pending or scheduled. Future Appointments This section includes appointments that were scheduled to occur 6 months from the date of the Encounter, up to a maximum of 20 appointments. The data comes from all [place] treatment facilities. Appointment Date/Time Appointment Type Appointme nt Facility Name May 06, 2024 10:00 AM [facility] May 07, 2024 10:00 AM AMBULATORY - MEDICINE [facility] May 15, 2024 10:30 AM AMBULATORY - REHAB MEDICIN E [facility] May 20, 2024 08:00 AM [facility]ORY - NONE [place] [facility] May 20, 2024 10:00 AM AMBULATORY - MEDICINE [facility] May 27, 2024 08:00 AM AM[place]ORY - NONE [place] [facility] Jun 06, 2024 08:00 AM [facility]GERY [place] [facility] Jun 10, 2024 08:50 AM AMBULATORY - MEDICINE [facility] Jun 10, 2024 11:00 AM AMBULATORY - PSYCHIATRY [facility] Jun 20, 2024 09:00 AM AM[place]ULATORY - NONE [place] [facility] Jun 24, 2024 08:00 AM AM[place]ATORY - NONE [place] [facility] Jun 30, 2024 11:00 AM [facility]ATORY - [facility]ONE [place] [facility] Jun 30, 2024 03:00 PM AMBULATORY [facility]INE [facility] Jul 01, 2024 09:00 AM AMBULATORY - MEDICINE [facility] Jul 07, 2024 10:00 AM [facility] Jul 08, 2024 10:00 AM [facility] Jul 10, 2024 08:30 AM AMBULATORY - MEDICINE [facility]ON[facility] Jul 24, 2024 03:00 PM [facility] Aug 05, 2024 09:00 AM [facility] Aug 11, 2024 10:00 AM AMBULATORY - [facility]ATRY [facility] Lab Results: +/- 30 days [...] Type Comment May 15, 2024 09:46 AM [facility] WN MAGNESIUM PLASMA Specimen Type: PLASMA Comment: [...] May 07, 2024 10:35 AM Reporting Lab: [address] [address] Performing Lab: [address] [address] MAGNESIUM 1.8 mg/dL 1.6-2.6 May 15, 2024 09:46 AM [facility] BNP (STODDARD) PLASMA Specimen Type: PLASMA Comment: BNP results less than or equal to 100 pg/ml are personal service representative of normal values in patients without CHF. BNP results greater than 100 pg/ml are considered abnormal and suggestive of CHF. Higher BNP concentrations in the first 72 hours after Acute Coronary Syndrome are associated with an increased risk of , myocardial infarction and CHF. Ordering Provider: LAURA STEINBERG Report Released Date/Time: May 07, 2024 10:35 AM Reporting Lab: [facility] [address] [facility] [address] Performing Lab: [address] [address] BNP (STODDARD) 29 pg/mL 0-100 May 15, 2024 09:46 AM [facility]-NAVI PANEL 1 PLASMA Specimen Type: PLASM A [...] May 07, 2024 10:35 AM Reporting Lab: [address] [address] Performing Lab: [address] [address] CREATININE 1.54 mg/dL H 0.72-1.25 UREA NITROGEN 20 mg/dL 9-25 GLUCOSE 151 mg/dL H 74-100 SODIUM 140 mmol/L 136-145 POTASSIUM 4.0 mmol/L 3.5-5.1 CHLORIDE 104 mmol/L 98-107 CO2 28 mmol/L 22-29 CALCIUM 9.7 mg/dL 8.4-10.2 ANION GAP 8 meq/L 3-19 eGFR (CKD-EPI) 46 Apr 29, 2024 10:55 AM [facility] URINALYSIS URINE Specimen Type : URINE Comment: Microscopic not indicated Ordering Provider: ERIK KIM Report Released Date/Time: Apr 16, 2024 01:19 PM Reporting Lab: [address] [address] Performing Lab: [address] [address] URINE COLOR Colorless Colorless-Yellow APPEARANCE Clear Clear UROBILINOGEN Normal mg/dL Normal URINE BLOOD Negative Negative URINE BILIRUBIN Negative Negative URINE KETONES Negative mg/dL Negative URINE PROTEIN Negative mg/dL Negative-Tr john URINE PH 7.0 4.5-8.0 URINE NITRITE Negative Negative URINE LEUKOCYTE EST Negative Negative SPECIFIC GRAVITY 1.005 1.005-1.030 URINE GLUCOSE Negative mg/dL Negative Apr 29, 2024 10:49 AM [facility] LACTIC ACID PLASMA Specimen Type : PLASMA Comment: ~2 hours from now Ordering Provider: ERIK KIM Report Released Date/Time: Apr 16, 2024 01:19 PM Reporting Lab: [address] [address] Performing Lab: [address] [address] LACTIC ACID 1.4 mmol/L 0.5-2.2 Apr 29, 2024 10:49 AM [facility] HIGH SENSITIVITY TROPONIN I PLASMA [...] Apr 16, 2024 01:19 PM Reporting Lab: [address] [address] Performing Lab: [address] [address] HIGH SENSITIVITY TROPONIN I <4 4-35 Apr 29, 2024 10:49 AM [facility] MAGNESIUM PLASMA Specimen Type: PLASM [...] Ordering Provider: LAURA STEINBERG Report Released Date/Time: Apr 29, 2024 10:33 AM Reporting Lab: [address] [address] Performing Lab: [address] [address] MAGNESIUM 1.7 mg/dL 1.6-2.6 Apr 29, 2024 10:49 AM [facility] PLASMA Specimen Type: [...] Ordering Provider: LAURA STEINBERG Report Released Date/Time: Apr 29, 2024 10:33 AM Reporting Lab: [address] [address] Performing Lab: [address] [address] CREATININE 1.35 mg/dL H 0.72-1.25 UREA NITROGEN 11 mg/dL 9-25 GLUCOSE 114 mg/dL H 74-100 SODIUM 141 mmol/L 136-145 POTASSIUM 4.2 mmol/L 3.5-5.1 CHLORIDE 105 mmol/L 98-107 CO2 29 mmol/L 22-29 CALCIUM 9.7 mg/dL 8.4-10.2 ANION GAP 7 meq/L 3-19 eGFR (CKD-EPI) 53 Apr 16, 2024 01:17 PM [facility] COVID-19 AND FLU/RSV DIAGNOSTIC PANEL NASOPH [...] Food and Drug Administration's Emergency Use Authorization. Hipscan Genexpert (596) Ordering Provider: ERIK KIM Report Released Date/Time: Apr 16, 2024 01:13 PM Reporting Lab: [address] [address] Performing Lab: [address] [address] COVID-19 PCR (FLUVID) Negative Negative FLU A PCR (FLUVID) Negative Negative FLU B PCR (FLUVID) Negative Negative RSV PCR (FLUVID) Negative Negative Apr 16, 2024 12:08 PM [facility] LACTIC ACID PLASMA Specimen Type : PLASMA No comment entered. Ordering Provider: ERIK KIM Report Released Date/Time: Apr 16, 2024 01:19 PM Reporting Lab: [address] [address] Performing Lab: [address] [address] LACTIC ACID 2.8 mmol/L H 0.5-2.2 Apr 16, 2024 12:08 PM [facility] PROTHROMBIN TIME PLASMA Specimen Ty pe: PLASMA No comment entered. Ordering Provider: ERIK KIM Report Released Date/Time: Apr 16, 2024 01:19 PM Reporting Lab: [facility] [address] [facility] [address] Performing Lab: [facility] [address] [facility] [address] PT PATIENT 13.2 s 11.7-14.4 INTERNATIONAL NORMALIZED RATIO 1.02 0 .87-1.14 Apr 16, 2024 12:08 PM [facility] PHOSPHORUS PLASMA Specimen Type: PLASM A [...] I information resource can be reached in [facility] in the Tools menu, under [...] Apr 16, 2024 01:19 PM Reporting Lab: [address] [address] Performing Lab: [address] [address] PHOSPHORUS 2.5 mg/dL 2.3-4.7 Apr 16, 2024 12:08 PM [facility] MAGNESIUM PLASMA Specimen Type: PLASM [...] I information resource can be reached in [facility] in the Tools menu, under [...] Apr 16, 2024 01:19 PM Reporting Lab: [address] [address] Performing Lab: [address] [address] MAGNESIUM 1.5 mg/dL L 1.6-2.6 Apr 16, 2024 12:08 PM [facility] CK TOTAL PLASMA Specimen Type: PLASM [...] Apr 16, 2024 01:19 PM Reporting Lab: [address] [address] Performing Lab: [address] [address] CK TOTAL 64 U/L 30-200 Apr 16, 2024 12:08 PM [facility] HIGH SENSITIVITY TROPONIN I PLASMA [...] I information resource can be reached in [facility] in the Tools menu, under [...] Apr 16, 2024 01:19 PM Reporting Lab: [address] [address] Performing Lab: [address] [address] HIGH SENSITIVITY TROPONIN I <4 4-35 Apr 16, 2024 12:08 PM [facility] BNP (STODDARD) PLASMA Specimen Type : PLASMA Comment: BNP results less than or equal to 100 pg/ml are personal service representative of normal values in patients without CHF. BNP results greater than 100 pg/ml are considered abnormal and suggestive of CHF. Higher BNP concentrations in the first 72 hours after Acute Coronary Syndrome are associated with an increased risk of , myocardial infarction and CHF. Ordering Provider: ERIK KIM Report Released Date/Time: Apr 16, 2024 01:38 PM Reporting Lab: [address] [address] Performing Lab: [address] [address] BNP (STODDARD) <10 pg/mL 0-100 Apr 16, 2024 12:08 PM [facility] CBC/PLT BLOOD Specimen Type: BLOOD Comment: ~STAT Ordering Provider: ERIK KIM Report Released Date/Time: Apr 16, 2024 01:19 PM Reporting Lab: [address] [address] Performing Lab: [address] [address] WBC 6.4 10*3/uL 5.0-10.0 RBC 5.02 10*6/uL 4.6-6.2 HGB 15.0 g/dL 14.0-18.0 HCT 44.3 42.0-52.0 MCV 88.2 fL 80.0-94.0 MCH 29.9 pg 27.0-31.0 MCHC 33.9 g/dL 32.0-36.0 PLT 208 10*3/uL 150-450 MPV 11.1 fL 9.0-13.1 RDW 14.1 11.0-16.0 NRBC 0.0 0.0-0.0 Apr 16, 2024 12:08 PM [facility] AUTOMATED DIFF BLOOD Specimen Type : BLOOD Comment: ~STAT Ordering Provider: ERIK KIM Report Released Date/Time: Apr 16, 2024 01:19 PM Reporting Lab: [address] [address] Performing Lab: [address] [address] A-LYMPH % 14.8 L 24.0-44.0 A-MONO % 4.7 0.1-6.0 A-GRAN % 79.5 H 42.0-75.0 A-LYMPH # 0.94 10*3/uL L 1.20-3.40 A-MONO # 0.30 10*3/uL 0.00-0.60 A-GRAN # 5.07 10*3/uL 1.40-6.50 A-BASO % 0.2 0.0-3.0 A-BASO # 0.01 10*3/uL 0.00-0.20 A-EOS % 0.3 0.0-10.0 A-EOS # 0.02 10*3/uL 0.00-0.70 A-IG % 0.5 0.0-0.5 A-IG # 0.03 10*3/uL 0.00-0.06 Apr 16, 2024 12:08 PM [facility] PANEL 5 PLASMA Specimen Type: [...] I information resource can be reached in [facility] in the Tools menu, under [...] Apr 16, 2024 01:19 PM Reporting Lab: [address] [address] Performing Lab: [address] [address] CREATININE 1.48 mg/dL H 0.72-1.25 UREA NITROGEN [...] the Encounter. The data comes from all [place] treatment facilities. Date/Time Radiology Report Provider Source May 29, 2024 05:[address] PERFORMED BY OTHER FACILITY: ERIK MISHRA [id number] -1945 M Exm Date: MAY 29, 2024@17:13 Req Phys: LAURA STEINBERG Pat Loc: [facility] PACT LULU 1-2 (Req'g Lo Img Loc: OUTSIDE2 LD CT Service: Unknown (Case [id number] COMPLETE) [address] CT PERFORMED BY OTHER FACIL(CT Detailed) CPT:98271 Reason for Study: Exam imported from outside Clinical History: Original Data for Imported Study Patient Name: ERIK MISHRA Date: 1945 Sex: M Study Date: 05/29/24 Study Time: 05:13:55 Study Description: CT CHEST PE/ABD/PEL W Referring Physician: TAMMI GEE Series 1: 2 CT files, description: THERAPEUTIC CASE MANAGER Series 2: 216 CT files, description: [...] Diagnostic Code: VERIFIED BY: / *ELECTRONICALLY FILED* [facility] May 27, 2024 08:07 AM MYOVIEW(1): ERIK MISHRA [id number] -1945 M Exm Date: MAY 27, 2024@08:07 Req Phys: STEINBERGLAURA Jovanny Landry Loc: DEANNE POD AUTOMOTIVE WHOLESALE PARTS ADVISOR (Req'g Loc) Img Loc: NUCLEAR MEDICINE Service: [place] [address] (Case [id number] COMPLETE) MYOVIEW(1) (NM Detailed) CPT:A9502 Reason for [...] 27, 2024 Date Verified: MAY 27, 2024 Component Technician E-Sig: Report: STUDY: GXT REPORT: Patient exercised [...] Staff: ANIA ANDRADE APRN, Cardiology Verified by taxation inspector for ANIA ANDRADE /ANIA ESPINOZA-CDD [facility] May 27, 2024 08:07 AM 57891(D) MYOCARDIAL SPECT(MULTIPLE): ERIK MISHRA NATHANIEL [id number] -1945 M Exm Date: MAY 27, 2024@08:07 Req Phys: LAURA STEINBERG Loc: [facility] POD AUTOMOTIVE WHOLESALE PARTS ADVISOR (Req'g Loc) Img Loc: NUCLEAR MEDICINE Service: Unknown [place] [id number] THIS IS AN AMENDED REPORT (Case [id number] COMPLETE) 82909(D) MYOCARDIAL SPECT(MULTIPL(NM Detailed) CPT:34195 Proc Modifiers : GXT Reason for Study: SEE CLINICAL HISTORY Radiopharmaceutical: TC-99M TETROFOSMIN (MYOVIEW)-1, 5.5 mCi Adm'd on MAY 27, 2024@08:00 by SONDRA GOTTLIEB Route [employer] Radiopharmaceutical: TC-99M TETROFOSMIN (MYOVIEW)-2, 16.5 mCi Adm'd on MAY 27, 2024@09:42 by SONDRA GOTTLIEB Route [employer]EN[employer] Clinical History: Cardiology approval by: [...] 05, 2024 Date Verified: JUN 05, 2024 Component Technician E-Sig: Report: [facility], [place], [place] STUDY: Treadmill Exercise SPECT Tc-99m myoview [...] performed with tomographic and three-dimensional reconstructions with light NM/CT 640 system. The patient performed treadmill [...] data sets in addition to the conventional szb-suzealnmjaz-qqqfkiddz images. Both filtered back projection and iterative [...] ventricular cavity. 4. SPECT images: Attenuation-corrected and kmn-qjhoyhghxkb-vtapwrhev SPECT images were evaluated. SPECT images demonstrate normal myocardial perfusion. There is a medium size, mild intensity defect located in the ljhrz-qx-rfnoxx inferior myocardium . The defect is fixed [...] BY: Kerri Mena MD, Cardiology Attending /[facility] May 27, 2024 08:07 AM TC-99M FROM NON-HIGHLY ENRICHED URANIUM SOURCE: ERIK MISHRA [id number] 1945 M Ex Date: MAY 27, 2024@08:07 Req Phys: LAURA STEINBERG Loc: DEANNE POD AUTOMOTIVE WHOLESALE PARTS ADVISOR (Req'g Loc) Img Loc: NUCLEAR MEDICINE Service: [place] [address] THIS IS AN AMENDED REPORT (Case [id number] COMPLETE) TC-99M FROM NON-HIGHLY ENRICHED U(NM Detailed) [...] 05, 2024 Date Verified: JUN 05, 2024 Component Technician E-Sig: Report: [facility], [place], [place] STUDY: Treadmill Exercise SPECT Tc-99m myoview [...] performed with tomographic and three-dimensional reconstructions with light NM/CT 640 system. The patient performed treadmill [...] data sets in addition to the conventional cmg-pcwtoruhjzl-hbsnqwgil images. Both filtered back projection and iterative [...] ventricular cavity. 4. SPECT images: Attenuation-corrected and ujr-dccvlgsyhdr-pciqreuyz SPECT images were evaluated. SPECT images demonstrate normal myocardial perfusion. There is a medium size, mild intensity defect located in the crayt-hl-udisjp inferior myocardium . The defect is fixed [...] BY: Kerri Mena MD, Cardiology Attending /[facility] May 27, 2024 08:07 AM MYOVIEW(2): ERIK MISHRA NATHANIEL [id number] -1945 [facility] Date: MAY 27, 2024@08:07 Req Phys: LAURA STEINBERG Loc: DEANNE POD AUTOMOTIVE WHOLESALE PARTS ADVISOR (Req'g Loc) Img Loc: NUCLEAR MEDICINE Service: [place] [address] THIS IS AN AMENDED REPORT (Case [id number] COMPLETE) MYOVIEW(2) (NM Detailed) CPT:A9502 Reason for [...] 05, 2024 Date Verified: JUN 05, 2024 Component Technician E-Sig: Report: [facility], [place], [place] STUDY: Treadmill Exercise SPECT Tc-99m myoview [...] performed with tomographic and three-dimensional reconstructions with light NM/CT 640 system. The patient performed treadmill [...] data sets in addition to the conventional bfh-dzqjqlgkzny-mnkravrqq images. Both filtered back projection and iterative [...] ventricular cavity. 4. SPECT images: Attenuation-corrected and dyt-abkdfrasvfa-dhloosnyh SPECT images were evaluated. SPECT images demonstrate normal myocardial perfusion. There is a medium size, mild intensity defect located in the ppsat-cb-vtgdad inferior myocardium . The defect is fixed [...] BY: Kerri Mena MD, Cardiology Attending /[facility] May 27, 2024 08:07 AM CARD. STRESS TEST W/TREADMILL/...: ERIK MISHRA [id number] -1945 [address] [facility] Date: MAY 27, 2024@08:07 Req Phys: LAURA STEINBERG Loc: DEANNE POD AUTOMOTIVE WHOLESALE PARTS ADVISOR (Req'g Loc) Img Loc: NUCLEAR MEDICINE Service: [place] [address] THIS IS AN AMENDED REPORT (Case [id number] COMPLETE) CARD. STRESS TEST W/TREADMILL/...(NM Detailed) CPT:33813 Reason for Study: SEE CLINICAL HISTORY Clinical History: Cardiology approval by: Ania DUARTE CONNECTED? Yes Active Outpatient Medications (including Supplies): [...] 05, 2024 Date Verified: JUN 05, 2024 Component Technician E-Sig: Report: [facility], [place], [place] STUDY: Treadmill Exercise SPECT Tc-99m myoview [...] performed with tomographic and three-dimensional reconstructions with light NM/CT 640 system. The patient performed treadmill [...] data sets in addition to the conventional vlo-ounbqibwulc-xvnmeznhn images. Both filtered back projection and iterative [...] ventricular cavity. 4. SPECT images: Attenuation-corrected and ywa-wkxadbwamtn-gsjbcyblb SPECT images were evaluated. SPECT images demonstrate normal myocardial perfusion. There is a medium size, mild intensity defect located in the dmops-mb-wxnblq inferior myocardium . The defect is fixed [...] Kerri Mena MD, Cardiology Attending /[facility] May 15, 2024 09:57 AM CHEST TWO(2) VIEW PA&LAT: ERIK MISHRA [id number] -1945 M Exm Date: MAY 15, 2024@09:57 Req Phys: LAURA STEINBERG Loc: DEANNE PACT PHONE LULU YoannaReq'g Im Loc: [facility] RADIOLOGY Service: [place] [address] (Case [id number] COMPLETE)CHEST TWO(2) VIEW PA&LAT (RAD Detailed) CPT:96000 Reason for Study: dyspnea Clinical History: Report Status: Verified Date Reported: MAY 17, 2024 Date Verified: MAY 17, 2024 Component Technician E-Sig: Report: CHEST TWO(2) VIEW PA&LAT, 05/15/2024 10:02 AM EST INDICATION: dyspnea COMPARISON: April 16, 2024 Impression: Calcified granuloma right lung apex. No edema or pneumonia. No pleural effusion or pneumothorax. Heart size normal. No acute osseous abnormality. Primary Diagnostic Code: NO ALERT REQUIRED Primary Interpreting Staff: KAILYN STEELE, Staff Physician Verified by taxation inspector for KAILYN STEELE /KAILYN AVILES [facility] Apr 16, 2024 01:47 PM SHOULDER-LEFT 2 OR MORE VIEWS: ERIK MISHRA [id number] -1945 M Exm Date: APR 16, 2024@13:47 Req Phys: LUPE MILES Pat Loc: DEANNE ORTHO/ATT3/CD (Req'g Loc) Img Loc: CDD RADIOLOGY Service: [place] [address] (Case [id number] COMPLETE) SHOULDER-LEFT 2 OR MORE VIEWS (RAD Detailed) CPT:37624 Reason for Study: LEFT SHOULDER PAIN Clinical History: Report Status: Verified Date Reported: APR 17, 2024 Date Verified: APR 17, 2024 Component Technician E-Sig: Report: SHOULDER-LEFT 2 OR MORE VIEWS, 04/16/2024 3:06 PM EST INDICATION: LEFT SHOULDER PAIN COMPARISON: None Impression: No acute fracture or malalignment. Mild glenohumeral and AC joint degenerative change. Primary Diagnostic Code: NO ALERT REQUIRED Primary Interpreting Staff: ALFONZO STEELE, Staff Physician Verified by taxation inspector for ALFONZO STEELE /[facility]ZO [facility] Apr 16, 2024 01:47 PM CHEST SINGLE(1) VIEW: ERIK MISHRA [id number] -1945 M Exm Date: APR 16, 2024@13:47 Req Phys: ERIK KIM Loc: ED/7A-4PM (Req'g Loc) Img Loc: CDD RADIOLOGY Service: [place] [address] (Case [id number] COMPLETE) CHEST SINGLE(1) VIEW (RAD Detailed) CPT:23639 Proc Modifiers : PORTABLE EXAM Reason for Study: WEAKNESS, COUGH Clinical History: Report Status: Verified Date Reported: APR 17, 2024 Date Verified: APR 17, 2024 Component Technician E-Sig: Report: CHEST SINGLE(1) VIEW, 04/16/2024 [...] Staff: ALFONZO STEELE, Staff Physician Verified by taxation inspector for ALFONZO STEELE /LAURA STEELE,ALFONZO DELGADO-D [facility] Encounter Notes: All associated encounter notes This section contains the clinical notes associated to the Encounter. Date/Time Encounter Note(s) Provider Source Apr 29, 2024 12:38 PM NURSING OUTPATIENT NOTE: LOCAL TITLE: [facility] INTAKE NOTE STANDARD TITLE: NURSING OUTPATIENT NOTE DATE OF NOTE: APR 29, 2024@12:38 ENTRY DATE: APR 29, 2024@12:38:46 AUTHOR: CATRINA MADERA EXP COSIGNER: URGENCY: STATUS: COMPLETED Reason for visit/chief complaint: B/P: 130/70 (04/29/2024 11:46) P: 75 (04/29/2024 10:06) R: 16 (04/16/2024 11:58) T: 97.8 F [36.6 C] (04/29/2024 10:06) HT: 70 in [177.8 cm] (01/22/2024 11:17) WT: 215.0 lb [97.52 kg] (04/29/2024 10:06) Are you having any pain or recurrent pain in the last several weeks/months? No Location: Duration: Characteristics: Pain education material offered to patient (for pain > 3) No Risk factors history: Hypertension No BP Rechecked No Comments: Patient notified plastics heat welder available upon request for any examinations/procedures. The patient was given a list of his/her medications, instructed to review and discuss any changes or problems with their provider. Patient advised to carry a list of current medications and any allergies with them in the event of emergency situations. Allergies: local and remote LISINOPRIL, FOSINOPRIL, PERCOCET No Remote Allergy/ADR Data available for this patient Medication Reconciliation ACTIVE OUTPATIENT MEDICATIONS LOCAL/REMOTE ALOH 160/MG CARB [...] 60 for 30 days Issued: 02/14/24 Filled: 03/13/24 Expires: 02/14/25 Refills: 10 Status: ACTIVE LOSARTAN 100MG TAB Directions: TAKE ONE TABLET BY MOUTH DAILY FOR BLOOD PRESSURE STOPPING THE HCTZ Quantity: 90 for 90 days Issued: 04/16/24 Filled: 04/16/24 Expires: 07/15/24 Refills: 0 Status: ACTIVE MAGNESIUM OXIDE 420MG TAB Directions: TAKE ONE TABLET BY MOUTH TWICE A DAY FOR SUPPLEMENT Quantity: 200 for 90 days Issued: 04/16/24 Filled: 04/16/24 Expires: 07/15/24 Refills: 0 Status: ACTIVE MULTIVIT/OPHTH AREDS2/LUTE/ZEAX CAP/TAB Directions: TAKE 1 SOFTGEL BY MOUTH TWICE A DAY AFTER MEALS FOR EYE HEALTH Quantity: 120 for 60 days Issued: 04/25/24 Filled: 04/25/24 Expires: 04/26/25 Refills: 5 Status: ACTIVE MUPIROCIN 2% OINT Directions: APPLY SMALL AMOUNT TO AFFECTED AREA DAILY TO PREVENT INFECTION -APPLY DAILY TO TREATMENT SITES AFTER CLEANING. THIS IS A TOPICAL ANTIBIOTIC. Quantity: 22 for 30 days Issued: 01/22/24 Filled: 03/13/24 Expires: 01/22/25 Refills: 9 Status: ACTIVE PANTOPRAZOLE NA 40MG EC TAB Directions: TAKE ONE TABLET BY MOUTH TWICE A DAY 30 MINUTES BEFORE A MEAL FOR STOMACH -TAKE ON AN EMPTY STOMACH. Quantity: 180 for 90 days Issued: 06/26/23 Filled: 12/13/23 Expires: 06/26/24 Refills: 0 Status: ACTIVE PRAZOSIN HCL 1MG CAP Directions: TAKE ONE CAPSULE BY MOUTH AT BEDTIME FOR NIGHTMARES. TAKE IN ADDITION TO 5 MG CAPSULE FOR TOTAL OF 6 MG AT BEDTIME Quantity: 90 for 90 days Issued: 04/15/24 Filled: 04/16/24 Expires: 07/14/24 Refills: 0 Status: ACTIVE TRIAMCINOLONE ACETONIDE 0.1% [...] Filled: 05/26/24 Expires: 02/14/25 Refills: 2 Status: ACTIVE/SUSP CHOLECALCIF 25MCG (D3-1,000UNIT) TAB Directions: TAKE FOUR TABLETS BY MOUTH DAILY FOR VITAMIN D SUPPLEMENT Quantity: 400 for 90 days Issued: 02/14/24 Filled: 05/26/24 Expires: 02/14/25 Refills: 2 Status: ACTIVE/SUSP CYANOCOBALAMIN 1000MCG TAB Directions: TAKE ONE TABLET BY MOUTH DAILY FOR VITAMIN B12 SUPPLEMENT Quantity: 90 for 90 days Issued: 02/14/24 Filled: 06/04/24 Expires: 02/14/25 Refills: 2 Status: ACTIVE/SUSP DICLOFENAC NA 1% TOP GEL Directions: APPLY SMALL AMOUNT TO AFFECTED AREA EVERY 6 HOURS NEEDED FOR SHOULDER PAIN Quantity: 300 for 90 days Issued: 02/14/24 Filled: 05/26/24 Expires: 02/14/25 Refills: 2 Status: ACTIVE/SUSP FLUTICASONE PROP 50MCG 120D NASAL INHL Directions: USE 2 SPRAYS IN EACH NOSTRIL DAILY FOR NASAL ALLERGY Quantity: 3 for 90 days Issued: 02/14/24 Filled: 05/26/24 Expires: 02/14/25 Refills: 2 Status: ACTIVE/SUSP LORATADINE 10MG TAB Directions: TAKE ONE TABLET BY MOUTH DAILY FOR ALLERGIES Quantity: 90 for 90 days Issued: 02/14/24 Filled: 06/03/24 Expires: 02/14/25 Refills: 2 Status: ACTIVE/SUSP METFORMIN HCL 1000MG TAB Directions: TAKE ONE TABLET BY MOUTH TWICE A DAY FOR DIABETES Quantity: 180 for 90 days Issued: 02/14/24 Filled: 05/26/24 Expires: 02/14/25 Refills: 2 Status: ACTIVE/SUSP MIRTAZAPINE 15MG TAB Directions: TAKE ONE-HALF TABLET BY MOUTH AT BEDTIME FOR SLEEP Quantity: 45 for 90 days Issued: 04/15/24 Filled: 07/12/24 Expires: 04/16/25 Refills: 1 Status: ACTIVE/SUSP PIOGLITAZONE HCL 30MG TAB Directions: TAKE ONE TABLET BY MOUTH DAILY FOR DIABETES Quantity: 90 for 90 days Issued: 02/14/24 Filled: 05/28/24 Expires: 02/14/25 Refills: 2 Status: ACTIVE/SUSP PRAZOSIN HCL 5MG CAP Directions: TAKE ONE CAPSULE BY MOUTH AT BEDTIME FOR NIGHTMARES Quantity: 90 for 90 days Issued: 04/15/24 Filled: 07/12/24 Expires: 04/16/25 Refills: 1 Status: ACTIVE/SUSP SERTRALINE HCL 100MG TAB Directions: TAKE ONE AND ONE-HALF TABLETS BY MOUTH EVERY MORNING FOR MOOD Quantity: 135 for 90 days Issued: 04/15/24 Filled: 06/24/24 Expires: 04/16/25 Refills: 1 Status: ACTIVE/SUSP No remote medications found. PENDING OUTPATIENT MEDICATONS (LOCAL/REMOTE): No local medications found. No remote medications found. ACTIVE NONVA MEDICATIONS (LOCAL): No local medications found. OUTPATIENT MEDICATIONS (LOCAL)WITHIN 90 DAYS: ACCU-CHEK GUIDE (GLUCOSE) TEST STRIP Directions: USE 1 STRIP TO TEST BLOOD SUGAR 3-4 TIMES WEEKLY Quantity: 50 for 90 days Issued: 02/14/24 Filled: 05/26/24 Expires: 02/14/25 Refills: 2 Status: ACTIVE/SUSP CHOLECALCIF 25MCG (D3-1,000UNIT) TAB Directions: TAKE FOUR TABLETS BY MOUTH DAILY FOR VITAMIN D SUPPLEMENT Quantity: 400 for 90 days Issued: 02/14/24 Filled: 05/26/24 Expires: 02/14/25 Refills: 2 Status: ACTIVE/SUSP CYANOCOBALAMIN 1000MCG TAB Directions: TAKE ONE TABLET BY MOUTH DAILY FOR VITAMIN B12 SUPPLEMENT Quantity: 90 for 90 days Issued: 02/14/24 Filled: 06/04/24 Expires: 02/14/25 Refills: 2 Status: ACTIVE/SUSP DICLOFENAC NA 1% TOP GEL Directions: APPLY SMALL AMOUNT TO AFFECTED AREA EVERY 6 HOURS NEEDED FOR SHOULDER PAIN Quantity: 300 for 90 days Issued: 02/14/24 Filled: 05/26/24 Expires: 02/14/25 Refills: 2 Status: ACTIVE/SUSP FLUTICASONE PROP 50MCG 120D NASAL INHL Directions: USE 2 SPRAYS IN EACH NOSTRIL DAILY FOR NASAL ALLERGY Quantity: 3 for 90 days Issued: 02/14/24 Filled: 05/26/24 Expires: 02/14/25 Refills: 2 Status: ACTIVE/SUSP LORATADINE 10MG TAB Directions: TAKE ONE TABLET BY MOUTH DAILY FOR ALLERGIES Quantity: 90 for 90 days Issued: 02/14/24 Filled: 06/03/24 Expires: 02/14/25 Refills: 2 Status: ACTIVE/SUSP METFORMIN HCL 1000MG TAB Directions: TAKE ONE TABLET BY MOUTH TWICE A DAY FOR DIABETES Quantity: 180 for 90 days Issued: 02/14/24 Filled: 05/26/24 Expires: 02/14/25 Refills: 2 Status: ACTIVE/SUSP MIRTAZAPINE 15MG TAB Directions: TAKE ONE-HALF TABLET BY MOUTH AT BEDTIME FOR SLEEP Quantity: 45 for 90 days Issued: 04/15/24 Filled: 07/12/24 Expires: 04/16/25 Refills: 1 Status: ACTIVE/SUSP PIOGLITAZONE HCL 30MG TAB Directions: TAKE ONE TABLET BY MOUTH DAILY FOR DIABETES Quantity: 90 for 90 days Issued: 02/14/24 Filled: 05/28/24 Expires: 02/14/25 Refills: 2 Status: ACTIVE/SUSP PRAZOSIN HCL 5MG CAP Directions: TAKE ONE CAPSULE BY MOUTH AT BEDTIME FOR NIGHTMARES Quantity: 90 for 90 days Issued: 04/15/24 Filled: 07/12/24 Expires: 04/16/25 Refills: 1 Status: ACTIVE/SUSP SERTRALINE HCL 100MG TAB Directions: TAKE ONE AND ONE-HALF TABLETS BY MOUTH EVERY MORNING FOR MOOD Quantity: 135 for 90 days Issued: 04/15/24 Filled: 06/24/24 Expires: 04/16/25 Refills: 1 Status: ACTIVE/SUSP CEPHALEXIN 500MG CAP Directions: TAKE ONE CAPSULE BY MOUTH THREE TIMES A DAY FOR SKIN OR SOFT TISSUE INFECTION Quantity: 21 for 7 days Issued: 02/28/24 Filled: 02/28/24 Expires: 03/29/24 Refills: 0 Status: TRAMADOL HCL 50MG TAB Directions: TAKE ONE TABLET BY MOUTH EVERY 6 HOURS NEEDED FOR PAIN Quantity: 20 for 5 days Issued: 01/31/24 Filled: 01/31/24 Expires: 03/01/24 Refills: 0 Status: DISCONTINUED OUTPATIENT MEDICATIONS (LOCAL) WITHIN 90 DAYS: ACCU-CHEK GUIDE (GLUCOSE) TEST STRIP Directions: USE 1 STRIP TO TEST BLOOD SUGAR 3-4 TIMES WEEKLY Quantity: 50 for 90 days Issued: 02/14/24 Filled: 05/26/24 Expires: 02/14/25 Refills: 2 Status: ACTIVE/SUSP CHOLECALCIF 25MCG (D3-1,000UNIT) TAB Directions: TAKE FOUR TABLETS BY MOUTH DAILY FOR VITAMIN D SUPPLEMENT Quantity: 400 for 90 days Issued: 02/14/24 Filled: 05/26/24 Expires: 02/14/25 Refills: 2 Status: ACTIVE/SUSP CYANOCOBALAMIN 1000MCG TAB Directions: TAKE ONE TABLET BY MOUTH DAILY FOR VITAMIN B12 SUPPLEMENT Quantity: 90 for 90 days Issued: 02/14/24 Filled: 06/04/24 Expires: 02/14/25 Refills: 2 Status: ACTIVE/SUSP DICLOFENAC NA 1% TOP GEL Directions: APPLY SMALL AMOUNT TO AFFECTED AREA EVERY 6 HOURS NEEDED FOR SHOULDER PAIN Quantity: 300 for 90 days Issued: 02/14/24 Filled: 05/26/24 Expires: 02/14/25 Refills: 2 Status: ACTIVE/SUSP FLUTICASONE PROP 50MCG 120D NASAL INHL Directions: USE 2 SPRAYS IN EACH NOSTRIL DAILY FOR NASAL ALLERGY Quantity: 3 for 90 days Issued: 02/14/24 Filled: 05/26/24 Expires: 02/14/25 Refills: 2 Status: ACTIVE/SUSP LORATADINE 10MG TAB Directions: TAKE ONE TABLET BY MOUTH DAILY FOR ALLERGIES Quantity: 90 for 90 days Issued: 02/14/24 Filled: 06/03/24 Expires: 02/14/25 Refills: 2 Status: ACTIVE/SUSP METFORMIN HCL 1000MG TAB Directions: TAKE ONE TABLET BY MOUTH TWICE A DAY FOR DIABETES Quantity: 180 for 90 days Issued: 02/14/24 Filled: 05/26/24 Expires: 02/14/25 Refills: 2 Status: ACTIVE/SUSP MIRTAZAPINE 15MG TAB Directions: TAKE ONE-HALF TABLET BY MOUTH AT BEDTIME FOR SLEEP Quantity: 45 for 90 days Issued: 04/15/24 Filled: 07/12/24 Expires: 04/16/25 Refills: 1 Status: ACTIVE/SUSP PIOGLITAZONE HCL 30MG TAB Directions: TAKE ONE TABLET BY MOUTH DAILY FOR DIABETES Quantity: 90 for 90 days Issued: 02/14/24 Filled: 05/28/24 Expires: 02/14/25 Refills: 2 Status: ACTIVE/SUSP PRAZOSIN HCL 5MG CAP Directions: TAKE ONE CAPSULE BY MOUTH AT BEDTIME FOR NIGHTMARES Quantity: 90 for 90 days Issued: 04/15/24 Filled: 07/12/24 Expires: 04/16/25 Refills: 1 Status: ACTIVE/SUSP SERTRALINE HCL 100MG TAB Directions: TAKE ONE AND ONE-HALF TABLETS BY MOUTH EVERY MORNING FOR MOOD Quantity: 135 for 90 days Issued: 04/15/24 Filled: 06/24/24 Expires: 04/16/25 Refills: 1 Status: ACTIVE/SUSP CLINDAMYCIN PHOSPHATE 1% TOP GEL Directions: APPLY [...] 30 MINUTES Issued: 04/16/24 Expires: 04/16/24 Status: Reviewed current medications with patient/signficant other, patient/significant other reports patient taking ALL VA, Non VA & OTC medications as listed on [facility] medication tab outpatient section. Yes *Printed copy of medication list provided to patient and reviewed. Yes *Explained to the patient the importance of keeping providers updated on medication changes and to carrying an updated list of medication at all times in case of an emergency situation. Yes /peyton/ CATRINA MADERA License Practial Nurse Signed: 04/29/2024 12:39 CATRINA MADERA [facility] Apr 29, 2024 11:45 AM PRIMARY CARE NOTE: LOCAL TITLE: Pc Chart Review Note STANDARD TITLE: PRIMARY CARE NOTE DATE OF NOTE: APR 29, 2024@11:45 ENTRY DATE: APR 29, 2024@11:45:47 AUTHOR: LAURA STEINBERG EXP COSIGNER: URGENCY: STATUS: COMPLETED Patient had an elevated blood pressure in GI clinic. Was alerted to patient needing lab work ordered today. Requested a manual BP check and repeat blood pressure was 130/70. (Documented per teams from Elvin Pineda: 130/70 repeat BP). Repeat blood pressure: 130/70 /peyton/ Laura Steinberg MD Primary Care Physician Signed: 04/29/2024 11:48 LAURA STEINBERG [facility] Apr 29, 2024 11:39 AM PRIMARY CARE LETTE RS: LOCAL TITLE: PC LETTER TEST RESULTS STANDARD TITLE: PRIMARY CARE LETTERS DATE OF NOTE: APR 29, 2024@11:39 ENTRY DATE: APR 29, 2024@11:39:36 AUTHOR: LAURA STEINBERG EXP COSIGNER: URGENCY: STATUS: COMPLETED [facility] [address] [place] [address] Mr. ERIK MISHRA [place], [place] [address] APR 29, 2024 Dear Mr. ERIK MISHRA Your creatinine or kidney lab improved from 1.48 to 1.35. Your magnesium returned to normal from 1.5 to 1.7. Please call us if you have questions or problems. You can reach us at (toll free number) or [phone] (local number). If you are enrolled in [employer], and utilize those services, you may prefer to contact us by secure message. Thank you for your service to our Country. We are honored to be able to provide medical care to you. Recent labwork Collection DT Specimen Test Name Result Units Ref Range 04/29/2024 10:49 PLASMA!! SODIUM 141 mmol/L 136 - 145 !! POTASSIUM 4.2 mmol/L 3.5 - 5.1 !! CHLORIDE 105 mmol/L 98 - 107 !! CO2 29 mmol/L 22 - 29 !! ANION GAP 7.0 mEq/L 3 - 19 !! GLUCOSE 114 H mg/dL 74 - 100 !! UREA NITROGEN 11 mg/dL 9 - 25 !! CREATININE 1.35 H mg/dL 0.72 - 1.25 !! eGFR (CKD-EPI) 53 SEE EVAL !! CALCIUM 9.7 mg/dL 8.4 - 10.2 !! MAGNESIUM 1.7 mg/dL 1.6 - 2.6 Sincerely, /peyton/ Laura Steinberg MD Primary Care Physician Patient Record Number [id number] LAURA STEINBERGINGTON-CDD [facility] Apr 29, 2024 10:16 AM GASTROENTEROLOGY N OTE: LOCAL TITLE: GASTROENTEROLOGY PROGRESS NOTE STANDARD TITLE: GASTROENTEROLOGY NOTE DATE OF NOTE: APR 29, 2024@10:16 ENTRY DATE: APR 29, 2024@10:16:43 AUTHOR: ELVIN PINEDA EXP COSIGNER: URGENCY: STATUS: COMPLETED GASTROENTEROLOGY PROGRESS NOTE Has ADDENDA CHIEF COMPLAINT: follow up, dysphagia and GERD HISTORY OF PRESENT ILLNESS: Mr Mishra is a 77 year old male who presents for GI follow up, he was previously followed by Dr Davis for dysphagia. Esophagram in 2021 c/w dysmotility. He has required a dilation in the past which helped his swallowing. When dysphagia returned in 2022 EGD was completed. No obvoius sticture noted, emperic dilation with an 18mm balloon at that time without much in the way of dysphagia relief. EGD also found a a stomach nodule and EUS was recommended. EUS SEPT 2022 found wall thickening at the GE junction, path negative and no additional follow up recommended. He has also followed with [facility] for dysphagia with recommendations for swallowing exercises. He was treated with PPI in the past but changed to Famotidine by PCP due to eleavted renal function. Given ongoing GERD symptoms he has changed back to PPI, most recently on BID dosing with PRN [place] for breakthrough. In the past he also feels sinus drainage adds to his dysphagia and GERD symptoms. Presently he is takind Pantoprazole 40mg BID with good symptom manamgenent. He used Gaviscon PRN. He denies ASA and NSAID use. He feels more dysphagia with liquids than soilds. He is careful with what he eats and follows good chewing and swallowing practices. He went to the ED 04/16/2024 with complaints of weakness and muscle cramping that he awoke with that day. In the ED his Mg was low, replaced, and he appeared dyhydrated and given IV fluids. He was instructed to hold diuretics, loose weight, and increase water intake. Since his ED visit he feels swollen in his hands, weight up 10 pounds. He is drinking 2 gallons of water a day as instructed. He is trying his best to loose weight. Diet now consist of oatmeal for breakfast, a couple of crackers with peanut butter for lunch, and a salad for his evening meal. PAST MEDICAL HISTORY: Active problems - Computerized [...] bronchus, and lung 10. Osteoarthritis (SNOMED CT 229210471) 11. Gastro-esophageal reflux disease with esophagitis (SNOMED CT 497326697) 12. Allergic rhinitis * 13. Hypertension (SNOMED CT 26196319) 14. 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 Gout * SOCIAL HISTORY: Unchnaged, helives with daughter and grandaughter. His in 2018. Never a smoker, no ETOH in >25 years. He is retired, had an [employer] shop. He remains active and is not limited in what he likes to do. FAMILY HISTORY: non contribuitory REVIEW OF SYSTEMS RELEVANT TO THE SITUATION: See HPI ROS: General: no weight loss, no changes in appetite, no unusual fatigue Respiratory: no shortness of air, no wheezing, no cough CV: no chest pain, no palpitations, no unusual swelling or extremity pain GI: no indigestion, no heartburn, no bowel changes Integ: no rashes, no changes in lesions or moles, no color changes in skin Psych: no suicidal ideation, no unusual moodiness or sadness. MEDICATIONS: Active and Recently Outpatient Medications (including Supplies): Active Outpatient Medications [...] ACTIVE (S) Indication: FOR VITAMIN B12 SUPPLEMENT 6) DICLOFENAC [...] ACTIVE (S) BEDTIME Indication: FOR SLEEP 15) MULTIVIT/OPHTH AREDS2/LUTE/ZEAX CAP/TAB TAKE 1 SOFTGEL BY ACTIVE MOUTH TWICE A DAY AFTER MEALS Indication: FOR EYE HEALTH 16) MUPIROCIN 2% OINT APPLY SMALL AMOUNT TO AFFECTED AREA DAILY ACTIVE -APPLY DAILY TO TREATMENT SITES AFTER CLEANING. THIS IS A TOPICAL ANTIBIOTIC. Indication: TO PREVENT INFECTION 17) PANTOPRAZOLE NA 40MG EC TAB TAKE ONE TABLET BY MOUTH TWICE A ACTIVE DAY 30 MINUTES BEFORE A MEAL -TAKE ON AN EMPTY STOMACH. Indication: FOR STOMACH 18) PIOGLITAZONE HCL 30MG TAB TAKE ONE TABLET BY MOUTH DAILY FOR ACTIVE (S) DIABETES Indication: FOR BLOOD SUGAR 19) PRAZOSIN HCL 1MG CAP TAKE ONE CAPSULE BY MOUTH AT BEDTIME ACTIVE TAKE IN ADDITION TO 5 MG CAPSULE FOR TOTAL OF 6 MG AT BEDTIME Indication: FOR NIGHTMARES. 20) PRAZOSIN HCL 5MG CAP TAKE ONE CAPSULE BY MOUTH AT BEDTIME ACTIVE (S) Indication: FOR NIGHTMARES 21) SERTRALINE HCL 100MG TAB TAKE ONE AND ONE-HALF TABLETS BY ACTIVE (S) MOUTH EVERY MORNING Indication: FOR MOOD 22) TRIAMCINOLONE ACETONIDE 0.1% OINT APPLY SMALL AMOUNT TO ACTIVE AFFECTED AREA TWICE A DAY Indication: FOR SKIN RASH Inactive Outpatient Medications Status 1) CEFUROXIME AXETIL 500MG TAB TAKE ONE TABLET BY MOUTH TWICE A DAY Indication: FOR EAR OR THROAT INFECTION 2) CEPHALEXIN 500MG CAP TAKE ONE CAPSULE BY MOUTH THREE TIMES A DAY Indication: FOR SKIN OR SOFT TISSUE INFECTION 3) DOXYCYCLINE HYCLATE 100MG TAB TAKE ONE TABLET BY MOUTH TWICE A DAY Indication: FOR SKIN OR EYE CONDITION 4) HC 1%/NEOMYCIN 3.5MG/POLYMYXIN OTIC SOLN INSTILL 4 DROPS IN LEFT EAR THREE TIMES A DAY Indication: FOR INFECTION 5) TRAMADOL HCL 50MG TAB TAKE ONE TABLET BY MOUTH EVERY 6 HOURS NEEDED Indication: FOR PAIN 27 Total Medications VITALS: B/P: 144/82 (04/29/2024 10:06) P: 75 (04/29/2024 10:06) R: 16 (04/16/2024 11:58) T: 97.8 F [36.6 C] (04/29/2024 10:06) WT: WEIGHT: Measurement DT WEIGHT LB(KG)[BMI] 04/29/2024 10:06 215.0(97.52)[31*] Manual repeat BP 130/70 PHYSICAL EXAMINATION: GENERAL : vet alert and cooperative in nad. He ambulates without difficulty, appears of his stated age. Presents well groomed. HEAD/NECK : head atraumatic EENT : sclera clear; nose patent; oral mucosa moist RESP : CTAB, no rhonchi/rales/wheezes CVS : RRR, no murmurs, rubs or gallops ABD : Soft, Non-tender, Non-distended. Normoactive bowel sounds. EXT : no cyanosis, no clubbing, (+)mild pitting pretibial edema; pulses 2+ in bilateral LE SKIN : no noted rash, bruising, bleeding NEURO : AA&O x 3 PSYCH : mood & affect appropriate Pertinent Labs/Radiology/Procedures: Collection time: Apr 16, 2024@12:08 Test Name Result Units Range --------- ------ ----- ----- CK TOTAL 64 U/L 30 - 200 SODIUM 138 mmol/L 136 - 145 POTASSIUM 4.2 mmol/L 3.5 - 5.1 CHLORIDE 102 mmol/L 98 - 107 CO2 21 L mmol/L 22 - 29 ANION GAP 15.0 mEq/L 3 - 19 GLUCOSE 227 H mg/dL 74 - 100 UREA NITROGEN 30 H mg/dL 9 - 25 CREATININE 1.48 H mg/dL 0.72 - 1.25 eGFR (CKD-EPI) 48 SEE EVAL CALCIUM 10.3 H mg/dL 8.4 - 10.2 PHOSPHORUS 2.5 mg/dL 2.3 - 4.7 MAGNESIUM 1.5 L mg/dL 1.6 - 2.6 TOTAL PROTEIN 7.1 g/dL 6.4 - 8.3 ALBUMIN 4.1 g/dL 3.5 - 5.2 TOTAL BILIRUBIN 0.8 mg/dL 0.2 - 1.2 AST 25 U/L 5 - 34 ALT 25 U/L 0 - 55 ALK PHOS 72 U/L 40 - 150 hsTROPONIN I <4 ng/L 4 - 35 Test Name Result Units Range --------- ------ ----- ----- WBC 6.4 K/cmm 5.0 - 10.0 RBC 5.02 M/cmm 4.6 - 6.2 HGB 15.0 g/dL 14.0 - 18.0 HCT 44.3 % 42.0 - 52.0 MCV 88.2 fL 80.0 - 94.0 MCH 29.9 pg 27.0 - 31.0 MCHC 33.9 g/dL 32.0 - 36.0 RDW 14.1 % 11.0 - 16.0 PLT 208 K/cmm 150 - 450 Upper EUS DEC 2022: were taken with a cold forceps for histology. Impression: - Wall thickening was seen in the gastroesophageal junction. The thickening appeared to primarily be within the luminal interface/superficial mucosa (Layer 1). Biopsied. Recommendation: - Await path results. - Repeat the upper endoscopic ultrasound in 6 months for surveillance based on pathology results. 01/12/2023 ADDENDUM STATUS: COMPLETED MICROSCOPIC EXAM/DIAGNOSIS: GE junction, biopsy: -Body type gastric mucosa with minimal chronic inflammation. Recommendation: No repeat EGD needed at this time due to negative biopsy. EGD SEPTEMBER 2022: Findings: The examined esophagus was normal. A TTS dilator was passed through the scope. Dilation with a 15-16.5-18 mm balloon dilator was performed to 18 mm. The dilation site was examined and showed no change. Estimated blood loss: none. Entire esophagus dilated even through UES. A single small submucosal papule (nodule) with no bleeding and no stigmata of recent bleeding was found in the cardia. The examined duodenum was normal. Impression: - Normal esophagus. Dilated. - A single submucosal papule (nodule) found in the stomach. - Normal examined duodenum. - No specimens collected. Recommendation: - The patient will be observed post-procedure, until all discharge criteria are met. - Discharge patient to home. - Resume previous diet. - Continue present medications. - Perform an upper endoscopic ultrasound (UEUS) in 2-3 months. Can be ordered when evaluated in clinic. - Return to referring physician as previously scheduled. 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 Tertiary contractions of the esophagus consistent with esophageal dysmotility. EGD JAN 2019: Findings: The Z-line was regular and was found 40 cm from the incisors. No endoscopic abnormality was evident in the esophagus to explain the patient's complaint of dysphagia. It was decided, however, to proceed with dilation of the entire esophagus. A guidewire was placed and the scope was withdrawn. Dilation was performed with a Savary dilator with no resistance at 51 Fr. EGD was passed into the esophagus and stomach after dilation and appeared normal throughout. A small hiatal hernia was present. Diffuse moderate inflammation characterized by erythema was found in the gastric body and in the gastric antrum. Biopsies were taken from body with cold forceps for histology. Antrum was biopsied with a cold forceps for histology. Diffuse mildly erythematous mucosa without active bleeding and with no stigmata of bleeding was found in the duodenal bulb. The second portion of the duodenum was normal. Impression: - Z-line regular, 40 cm from the incisors. - No endoscopic esophageal abnormality to explain patient's dysphagia. Esophagus dilated. Dilated. - Chronic gastritis. Biopsied to asses for hpylori. - Erythematous duodenopathy. - Normal second portion of the duodenum. Recommendation: - Await pathology results. Treat hpylori if present. Consider GI referral if reflux is uncontrolled. - Continue present medications. - Advance diet as tolerated. - Continue present medications. MICROSCOPIC EXAM/DIAGNOSIS: A. Antrum, biopsy: -Mild chronic gastritis. No intestinal metaplasia. B. Gastric body, biopsy: -Mild chronic gastritis. No intestinal metaplasia. Assessment & Plan: 1. Dysphagia -Esophagram DEC 2018 finding narrowing of the distal esophagus to the gastroesophageal junction. -EGD JAN 2019 did not find a narrowing but an emperic dilation to 51 Fr with Savary dilator completed at that time. (+) chronic gastritis, negative gastric biopsy. -Esophagram JUNE 2021 finding an esophageal diverticulum and tertiary contractions of the esophagus -return of dysphagia, liquids>solids, AUGUST 2022 -EGD SEPTEMBER 2022 finding the esophagus normal, balloon dilation to 18mm. -still with issues of liquid>solid dysphagia -prior review of good chewing, softer meats/ground meats, slow eating to help with swallowing. -[facility] consult placed, completed DEC 2022. Exercises provided by that service. 2. GERD -managed with PPI and H2 monse up to his last GI clinic visit AUGUST 2022. -PPI recommendations by PCP to wean dose due to elevated kidney function labs SEPTEMBER 2022. He weaned from medication by DEC 2022 and was only using Famotidine. -return of GERD BID PPI restarted JUNE 2023 with great results. -Famotidine discontinued Summer 2023 -when Omeprazole was added back the pill was a new shape, did not seem to cover symptoms as well. -not using Gaviscon at this time -reviewed lifestyle management with him again today. Focus on weight managment. -ENT evaluation SPRING 2023 suggested symptoms related to reflux and not PND. -can trial weaning back to daily dose PPI given low Mg level and monitor response. He has a heavier meal in the evening and would like to keep the evening dose and wean the morning dose. -he is trying to loose weight, not going about it the correct way as he is cutting too many calories and I fear not getting the protein he needs. 3. Nodule of stomach found on EGD -EGD for dysphagia, noted a single, small submucosal nodule found without bleeding and no findings of recent bleeding. -recommendation for EUS in 2-3 months for additional evaluation -EUS DEC 2022 did see some wall thickening of the GE junction, negative path findings -no recommendation for ongoing follow up I was able to TEAMS Dr Steinberg today and disucss plan of care, I reached out due to his complaints of swelling/weight gain off diuretics. She ask that I have his BP repeated with manual cuff and she placed lab orders for collection today. PLAN: -wean PPI to once daily and monitor response -PCP ordered labs for collection today in follow up of his recent ED visit. She also asked that I discuss cutting back on some of his water intake, done. -diet consult placed for weight managment Follow up in 3 months, sooner with new GI issues. RTC order placed today. I spent 39 mintues in chart history review, taking a detailed history and preforming a physical exam, care coordination, discussing plan of care with the patient, ordering consults, and entering information into the EHR. /peyton/ ELVIN PINEDA PA-C Signed: 05/02/2024 10:13 05/02/2024 ADDENDUM STATUS: COMPLETED Post clinic labs as per Dr Steinberg as below: Collection time: Apr 29, 2024@10:49 Test Name Result Units Range --------- ------ ----- ----- SODIUM 141 mmol/L 136 - 145 POTASSIUM 4.2 mmol/L 3.5 - 5.1 CHLORIDE 105 mmol/L 98 - 107 CO2 29 mmol/L 22 - 29 ANION GAP 7.0 mEq/L 3 - 19 GLUCOSE 114 H mg/dL 74 - 100 UREA NITROGEN 11 mg/dL 9 - 25 CREATININE 1.35 H mg/dL 0.72 - 1.25 eGFR (CKD-EPI) 53 SEE EVAL CALCIUM 9.7 mg/dL 8.4 - 10.2 MAGNESIUM 1.7 mg/dL 1.6 - 2.6 Mg is now normal. No acute GI issues by labs, looking for awareness. /peyton/ ELVIN PINEDA PA-C Signed: 05/02/2024 10:15 05/06/2024 ADDENDUM STATUS: COMPLETED Pt exited clinic per provider. Treatment plan and medications discussed with patient per provider. Return to clinic 3 months with GI/PA2 if unavailable at that time may be scheduled with any available GI fellow or attending. Appointment will be mailed. /peyton/ RADHA CHÁVEZ GI Mail Order Clerk Signed: 05/06/2024 14:30 ELVIN PINEDA[facility]
--- OUTSIDE RECORDS SUMMARY | 2024-07-24 21:31 | XMS_ITS | Encounter Summary ---
Author Name [facility] [place] [facility] [place] Address [address] [place] [address] Care Team Providers Care Veterinary Laboratory Technician Name Role Phone LAURA STEINBERG Primary Care [...] PART A Oct 14, 2009 PART A [id number] Alex GALLEGO PATIENT MEDICARE (WNR) MEDICARE (M) PART B Oct 14, 2009 PART B [id number] Alex GALLEGO PATIENT MEDICARE (WNR) MEDICARE (M) PART A Oct 14, 2009 PART A [id number] [id number] [id number] Alex GALLEGO PATIENT MEDICARE (WNR) MEDICARE (M) PART B Oct 14, 2009 PART B [id number] Alex GALLEGO PATIENT MEDICARE (WNR) MEDICARE (M) PART A Oct 14, 2009 PART A [id number] Alex GALLEGO PATIENT MEDICARE (WNR) MEDICARE (M) PART B Oct 14, 2009 PART B [id number] Alex GALLEGO PATIENT Selected Encounter This section includes the information on record at [place] for the Encounter. Date/Time Encounter Type Encounter Description Reason Provider Source Jun 12, 2024 04:31 PM PH1 ASSMT&MGMT NQHP 5-10 TELEPHONE PRIMARY CARE ICD-10-CM Z71.2 Person consulting for explanation of exam or test findings LUIS A KAUFMAN [facility] Encounter Template Text not used by [place] Assessments - Encounter Diagnoses This section includes the primary and secondary diagnoses documented for the Encounter. Date/Time Primary/Secondary Diagnosis Diagnosis Name Provider Source Jun 12, 2024 04:31 PM PRIMARY Person consulting for explanation of exam or test findings LUIS A KAUFMAN [facility] Plan of Treatment: Future Appointments (+ 6 months) and Future Tests (+/- 45 days) The Plan of Treatment section includes future care activities for the patient from all [place] [facility]. This section includes future appointments and future orders which are active, pending or scheduled. Future Appointments This section includes appointments that were scheduled to occur 6 months from the date of the Encounter, up to a maximum of 20 appointments. The data comes from all [place] treatment facilities. Appointment Date/Time Appointment Type Appointme nt Facility Name Jun 20, 2024 09:00 AM AMBULATORY - NONE [place] [facility] Jun 24, 2024 08:00 AM AMBULATORY - NONE [place] [facility] Jun 30, 2024 11:00 AM AMBULATORY - NONE [place] [facility] Jun 30, 2024 03:00 PM AMBULATORY - MEDICINE JAYNE NGTON-CDD [facility] Jul 01, 2024 09:00 AM AMBULATORY - MEDICINE JAYNE NGTON-CDD [facility] Jul 07, 2024 10:00 AM AMBULATORY - PSYCHIATRY [facility] Jul 08, 2024 10:00 AM AMBULATORY - MEDICINE JAYNE NGTON [facility] Jul 10, 2024 08:30 AM AMBULATORY - MEDICINE JAYNE NGTON-CDD [facility] Jul 24, 2024 03:00 PM AMBULATORY - PSYCHIATRY [facility] Aug 05, 2024 09:00 AM [facility] Aug 11, 2024 10:00 AM AMBULATORY - PSYCHIATRY COREY NICHOLAS [facility] Aug 12, 2024 09:00 AM AMBULATORY - MEDICINE JAYNE SINGH [facility] August 18, 2024 09:00 AM AMBULATORY - SURGERY LARRY HOLLOWAY [facility] September 02, 2024 08:20 AM AMBULATORY - SURGERY LARRY HOLLOWAY [facility] Oct 01, 2024 09:00 AM AMBULATORY - NONE [facility] Oct 30, 2024 09:00 AM AMBULATORY - PSYCHIATRY COREY NICHOLAS [facility] Dec 09, 2024 08:00 AM AMBULATORY - NONE [facility] Lab Results: +/- 30 days of the [...] or equal to 100 pg/ml are customer field representative of normal values in patients without CHF. BNP results greater than 100 pg/ml are considered abnormal and suggestive of CHF. Higher BNP concentrations in the first 72 hours after Acute Coronary Syndrome are associated with an increased risk of , myocardial infarction and CHF. Ordering Provider: SACHI SAINZ Report Released Date/Time: Jun 30, 2024 03:21 PM Reporting Lab: [facility] [address] [place] [address] Performing Lab: [address] [address] BNP (STODDARD) 22 pg/mL 0-100 Jun 30, 2024 03:27 PM [facility] CBC/PLT BLOOD Specimen Type: BLOOD No comment entered. Ordering Provider: SACHI SAINZ Report Released Date/Time: Jun 30, 2024 03:21 PM Reporting Lab: [address] [address] Performing Lab: [facility] [address] [facility] [address] WBC 7.2 10*3/uL 5.0-10.0 RBC 4.85 10*6/uL 4.6-6.2 HGB 14.7 g/dL 14.0-18.0 HCT 43.8 42.0-52.0 MCV 90.3 fL 80.0-94.0 MCH 30.3 pg 27.0-31.0 MCHC 33.6 g/dL 32.0-36.0 PLT 235 10*3/uL 150-450 MPV 10.6 fL 9.0-13.1 RDW 14.8 11.0-16.0 NRBC 0.0 0.0-0.0 Jun 30, 2024 03:27 PM [facility] PANEL 1 PLASMA Specimen Type: PLASM [...] Jun 30, 2024 03:21 PM Reporting Lab: [address] [address] Performing Lab: [address] [address] CREATININE 1.43 mg/dL H 0.72-1.25 UREA NITROGEN 22 mg/dL 9-25 GLUCOSE 164 mg/dL H 74-100 SODIUM 139 mmol/L 136-145 POTASSIUM 3.7 mmol/L 3.5-5.1 CHLORIDE 102 mmol/L 98-107 CO2 27 mmol/L 22-29 CALCIUM 9.8 mg/dL 8.4-10.2 ANION GAP 10 meq/L 3-19 eGFR (CKD-EPI) 50 May 15, 2024 09:46 AM [facility] MAGNESIUM PLASMA Specimen Type: PLASM A [...] May 07, 2024 10:35 AM Reporting Lab: [address] [address] Performing Lab: [address] [address] MAGNESIUM 1.8 mg/dL 1.6-2.6 May 15, 2024 09:46 AM [facility] PAN[facility] 1 PLASMA Specimen Type: PLASM A [...] May 07, 2024 10:35 AM Reporting Lab: [address] [address] Performing Lab: [address] [address] CREATININE 1.54 mg/dL H 0.72-1.25 UREA NITROGEN 20 mg/dL 9-25 GLUCOSE 151 mg/dL H 74-100 SODIUM 140 mmol/L 136-145 POTASSIUM 4.0 mmol/L 3.5-5.1 CHLORIDE 104 mmol/L 98-107 CO2 28 mmol/L 22-29 CALCIUM 9.7 mg/dL 8.4-10.2 ANION GAP 8 meq/L 3-19 eGFR (CKD-EPI) 46 May 15, 2024 09:46 AM [facility] BNP ([employer]) PLASMA Specimen Type: PLASMA Comment: BNP results less than or equal to 100 pg/ml are customer field representative of normal values in patients without CHF. BNP results greater than 100 pg/ml are considered abnormal and suggestive of CHF. Higher BNP concentrations in the first 72 hours after Acute Coronary Syndrome are associated with an increased risk of , myocardial infarction and CHF. Ordering Provider: LAURA STEINBERG Report Released Date/Time: May 07, 2024 10:35 AM Reporting Lab: [facility] [address] [facility] [address] Performing Lab: [facility] [address] [facility] [address] BNP (STODDARD) 29 pg/mL 0-100 Social History: Smoking Status (Most current) and Tobacco Use (All prior to encounter date) This section includes the most current, and the historical, smoking and tobacco- related health factors from the [place] facility where the Encounter took place. Current Smoking Status This section includes the most current smoking, or tobacco-related health factor, from the [place] facility where the Encounter took place. Date/Time Current Smoking Status Comment Edis ity May 07, 2024 10:00 AM VA-TOBACCO NEVER U SED CIGARETTES [facility] Tobacco Use History This section includes a history of the smoking, or tobacco-related health factors, that were collected on or before the date of the Encounter. The data comes from the [place] facility where the Encounter took place. Date/Time Smoking Status/Tobacco Use Comment F acility May 07, 2024 10:00 AM VA-TOBACCO NEVER U SED OTHER TYPE [facility] Feb 14, 2024 08:30 AM VA-TOBACCO FORMER USER [facility] Feb 14, 2024 08:30 AM VA-TOBACCO QUIT 15 YRS OR MORE [facility] Jan 10, 2023 11:00 AM VA-TOBACCO NEVER USED [facility] Dec 09, 2021 08:00 AM VA-TOBACCO NEVER USED [facility] Dec 10, 2020 09:30 AM VA-TOBACCO NEVER USED [facility] May 13, 2019 09:09 AM VA-TOBACCO NEVER USED [facility] Apr 03, 2018 09:45 AM VA-TOBACCO NEVER USED [facility] May 07, 2017 10:31 AM V9 LIFETIME NON-USER OF TOBACCO [facility] Apr 06, 2016 10:18 AM V9 LIFETIME NON-USER OF TOBACCO [facility] Jan 26, 2015 08:52 AM V9 LIFETIME NON-USER OF TOBACCO [facility] August 18, 2013 08:27 AM V9 LIFETIME NON-USER OF TOBACCO [facility] Sep 18, 2012 08:39 AM V9 LIFETIME NON-USER OF TOBACCO [facility] Jan 19, 2012 10:42 AM V9 LIFETIME NON-USER OF TOBACCO [facility] Jan 19, 2012 10:42 AM V9 TOBACCO OFFERED [facility] September 13, 2010 10:28 AM V9 LIFETIME NON-USER OF TOBACCO [facility] September 13, 2010 10:28 AM V9 TOBACCO OFFERED [facility] Sep 21, 2006 12:59 PM V9 LIFETIME NON-USER OF TOBACCO [facility] Jan 29, 2006 07:52 AM HF V9 LIFETIME NON-SMOKER [facility] Dec 30, 2004 08:05 AM HF V9 LIFETIME NON-SMOKER [facility] Dec 23, 2003 02:58 PM HF V9 LIFETIME NON-SMOKER [facility] Radiology Reports: +/- 30 days of [...] the Encounter. The data comes from all [facility] facilities. Date/Time Radiology Report Provider Source May 29, 2024 05:[id number] PERFORMED BY OTHER FACILITY: ERIK GALLEGO [id number] -1945 Ex Date: MAY 29, 2024@17:13 Req Phys: LAURA STEINBERG Pat Loc: DEANNE PACT LULU 1-2 (Req'g Lo Img Loc: OUTSIDE2 LD CT Service: Unknown (Case [id number] COMPLETE) [id number] CT PERFORMED BY OTHER FACIL(CT Detailed) CPT:27049 Reason for Study: Exam imported from outside Clinical History: Original Data for Imported Study Patient Name: ERIK GALLEGO Date: 1945 Sex: M Study Date: 05/29/24 Study Time: 05:13:55 Study Description: CT CHEST PE/ABD/PEL W Referring Physician: TAMMI GEE Series 1: 2 CT files, description: DIRECTOR DECISION SUPPORT Series 2: 216 CT files, description: 5.0mm [...] Diagnostic Code: VERIFIED BY: / *ELECTRONICALLY FILED* [facility] May 27, 2024 08:07 AM MYOVIEW(1): SANAMONIQUEERIK [id number] -1945 M Exm Date: MAY 27, 2024@08:07 Req Phys: LAURA STEINBERG Pat Loc: DEANNE POD FAMILY SOCIOLOGIST (Req'g Loc) Img Loc: NUCLEAR MEDICINE Service: [place] [address] (Case [id number] COMPLETE) MYOVIEW(1) (NM Detailed) CPT:A9502 Reason for [...] 27, 2024 Date Verified: MAY 27, 2024 Saturation Equipment Operator E-Sig: Report: STUDY: GXT REPORT: Patient [...] Staff: ANIA ANDRADE APRN, Cardiology Verified by coremaking supervisor for ANIA ANDRADE /ANIA ESPINOZA-THIERRYD [facility] May 27, 2024 08:07 AM 02832(D) MYOCARDIAL SPECT(MULTIPLE): ERIK GALLEGO [id number] -1945 M Exm Date: MAY 27, 2024@08:07 Req Phys: MARYANLAURA Jovanny Landry Loc: DE[facility]NE POD FAMILY SOCIOLOGIST (Req'g Loc) Img Loc: NUCLEAR MEDICINE Service: [place] [address] THIS IS AN AMENDED REPORT (Case [id number] COMPLETE) 95434(D) MYOCARDIAL SPECT(MULTIPL(NM Detailed) CPT:88473 Proc Modifiers : GXT Reason for Study: [...] 05, 2024 Date Verified: JUN 05, 2024 Saturation Equipment Operator E-Sig: Report: [facility], [place], [place] STUDY: Treadmill Exercise SPECT Tc-99m [...] performed with tomographic and three-dimensional reconstructions with [employer] NM/CT 640 system. The patient performed treadmill [...] data sets in addition to the conventional jex-tocqayylglu-vtuoatsfa images. Both filtered back projection and iterative [...] ventricular cavity. 4. SPECT images: Attenuation-corrected and dhm-gxghubuufqp-fbwdofywv SPECT images were evaluated. SPECT images demonstrate normal myocardial perfusion. There is a medium size, mild intensity defect located in the xrxav-pw-eupjgl inferior myocardium . The defect is fixed [...] Kerri Mena MD, Cardiology Attending /KERRI LONG-Joseph [facility] May 27, 2024 08:07 AM TC-99M FROM NON-HIGHLY ENRICHED URANIUM SOURCE: ERIK GALLEGO [id number] -1945 M Exm Date: MAY 27, 2024@08:07 Req Phys: LAURA STEINBERG Loc: DEANNE POD FAMILY SOCIOLOGIST (Req'g Loc) Img Loc: NUCLEAR MEDICINE Service: [place] [address] THIS IS AN AMENDED REPORT (Case [id number] COMPLETE) TC-99M FROM NON-HIGHLY ENRICHED U(NM Detailed) [...] 05, 2024 Date Verified: JUN 05, 2024 Saturation Equipment Operator E-Sig: Report: [facility], [place], [place] STUDY: Treadmill Exercise SPECT Tc-99m [...] performed with tomographic and three-dimensional reconstructions with Mind[employer] NM/CT 640 system. The patient performed treadmill [...] data sets in addition to the conventional cse-nkbydlxsxec-zbejddojh images. Both filtered back projection and iterative [...] ventricular cavity. 4. SPECT images: Attenuation-corrected and pal-unsskrblrtr-lopwuvsvy SPECT images were evaluated. SPECT images demonstrate normal myocardial perfusion. There is a medium size, mild intensity defect located in the zlwug-ft-hdnsjc inferior myocardium . The defect is fixed [...] Kerri Mena MD, Cardiology Attending /KERRI LONG-Joseph [facility] May 27, 2024 08:07 AM MYOVIEW(2): ERIK GALLEGO [id number] -1945 M Ex Date: MAY 27, 2024@08:07 Req Phys: MARYANLAURA K Pat Loc: DEANNE POD FAMILY SOCIOLOGIST (Req'g Loc) Img Loc: NUCLEAR MEDICINE Service: [place] [address] THIS IS AN AMENDED REPORT (Case [id number] COMPLETE) MYOVIEW(2) (NM Detailed) CPT:A9502 Reason for [...] 05, 2024 Date Verified: JUN 05, 2024 Saturation Equipment Operator E-Sig: Report: [place], [place] STUDY: Treadmill Exercise SPECT Tc-99m myoview [...] performed with tomographic and three-dimensional reconstructions with [employer]/CT 640 system. The patient performed treadmill exercise [...] data sets in addition to the conventional fco-vlwqonivhcy-ghvtuhnqj images. Both filtered back projection and iterative [...] ventricular cavity. 4. SPECT images: Attenuation-corrected and gay-rkdxikyjwsw-slygqpvvv SPECT images were evaluated. SPECT images demonstrate normal myocardial perfusion. There is a medium size, mild intensity defect located in the dboiu-gl-xlfrpv inferior myocardium . The defect is fixed [...] Kerri Mena MD, Cardiology Attending /KERRI LONG-LOWELL [facility] May 27, 2024 08:07 AM CARD. STRESS TEST W/TREADMILL/...: ERIK GALLEGO [id number] -1945 M Exm Date: MAY 27, 2024@08:07 Req Phys: LAURA STEINBERG Pat Loc: DEANNE POD FAMILY SOCIOLOGIST (Req'g Loc) Img Loc: NUCLEAR MEDICINE Service: [place] [address] THIS IS AN AMENDED REPORT (Case [id number] COMPLETE) CARD. STRESS TEST W/TREADMILL/...(NM Detailed) CPT:35403 Reason for Study: SEE CLINICAL HISTORY Clinical [...] 05, 2024 Date Verified: JUN 05, 2024 Saturation Equipment Operator E-Sig: Report: [place], [place] STUDY: Treadmill Exercise SPECT Tc-99m myoview [...] performed with tomographic and three-dimensional reconstructions with Mindie NM/CT 640 system. The patient performed treadmill [...] data sets in addition to the conventional xqk-dyzlydgaglz-exbxrgixt images. Both filtered back projection and iterative [...] ventricular cavity. 4. SPECT images: Attenuation-corrected and uvs-huoccgktrop-ettonyptu SPECT images were evaluated. SPECT images demonstrate normal myocardial perfusion. There is a medium size, mild intensity defect located in the witta-al-luaqdx inferior myocardium . The defect is fixed [...] Kerri Mena MD, Cardiology Attending /KERRI LONG-CDJoseph [facility] May 15, 2024 09:57 AM CHEST TWO(2) VIEW PA&LAT: ERIK GALLEGO [id number] -1945 M Exm Date: MAY 15, 2024@09:57 Req Phys: LAURA STEINBERG Pat Loc: DEANNE PACT PHONE LULU (Req'g Img Loc: [facility] RADIOLOGY Service: [place] [address] (Case [id number] COMPLETE)CHEST TWO(2) VIEW PA&LAT (RAD Detailed) CPT:47866 Reason for Study: dyspnea Clinical History: Report Status: Verified Date Reported: MAY 17, 2024 Date Verified: MAY 17, 2024 Saturation Equipment Operator E-Sig: Report: CHEST TWO(2) VIEW PA&LAT, 05/15/2024 10:02 AM EST INDICATION: dyspnea COMPARISON: April 16, 2024 Impression: Calcified granuloma right lung apex. No edema or pneumonia. No pleural effusion or pneumothorax. Heart size normal. No acute osseous abnormality. Primary Diagnostic Code: NO ALERT REQUIRED Primary Interpreting Staff: KAILYN STEELE, Staff Physician Verified by coremaking supervisor for KAILYN STEELE /KAILYN AVILES [facility] Pathology Reports: +/- 30 days [...] the Encounter. The data comes from all [place] treatment facilities. Date/Time Pathology Report Provider Source Jul 10, 2024 09:41 AM LR SURGICAL PATHOL OGY REPORT: LOCAL TITLE: LR SURGICAL PATHOLOGY REPORT DATE OF NOTE: JUL 10, 2024@09:41:15 ENTRY DATE: JUL 10, 2024@09:41:15 AUTHOR: JOE LEUNG COSIGNER: URGENCY: STATUS: COMPLETED $APHDR Reporting Lab: [facility] [CLIA# [id number]] [address] [place] [address] - - - - - - - [...] left earlobe and consists of an unoriented, mcj-xicb-kahpvvj, yellow/white shave of skin measuring 0.5 x 0.4 x 0.2 cm. A rough papule is identified over the skin surface measuring 0.4 x 0.3 cm. The cut surface is yellow/white and grossly unremarkable. The cut surface is inked blue. The specimen is bisected to reveal a white solid interior. The specimen is submitted entirely in a single cassette. 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 /peyton/ JOE LEUNG pathologist Signed Jul 10, 2024@09:41 Performing Laboratory: Surgical Pathology Report Performed By: [facility] [IA# [id number]] [address] [place] [id number] $FTR - - - - - - - - - - - - - - - - - - - - - - - - - - - - - - - - - - - - - - - - (End of report) JOE LEUNG MD [facility] Date Jul 10, 2024 - - - - - - - - - - - - - - - - - - - - - - - - - - - - - - - - - - - - - - - - ERIK GALLEGO STANDARD FORM 515 ID:[id number] SEX:M :1945 AGE: 78 LOC:PATH PCP: Laura Steinberg MD /peyton/ JOE LEUNG pathologist Signed: 07/10/2024 09:41 JOE LEUNG [facility] Encounter Notes: All associated encounter notes This section contains the clinical notes associated to the Encounter. Date/Time Encounter Note(s) Provider Source Jun 12, 2024 04:31 PM PRIMARY CARE TELEP PAT ENCOUNTER NOTE: LOCAL TITLE: Pc Telephone Care Note STANDARD TITLE: PRIMARY CARE TELEPHONE ENCOUNTER NOTE DATE OF NOTE: JUN 12, 2024@16:31 ENTRY DATE: JUN 12, 2024@16:31:53 AUTHOR: LUIS A KAUFMAN EXP COSIGNER: URGENCY: STATUS: COMPLETED Contacted and verified patient (name,ssn) regarding 06/12/24 PC Chart Review Note from provider Please tell patient the Zio patch showed sinus rhythm ranging 80-124bpm with PVCs. He was prescribed metoprolol succinate 25 mg by his outside senior painter. Has he been taking it? If not, he should be taking daily as this will decrease the PVCs. ASSESSMENT/FINDINGS: PATIENT WAS MONITORED FOR 9 DAYS AND 22 HOURS USING A HOLTER MONITOR WITH 9 PATIENT TRIGGERED EVENTS. RECORDING SHOW SINUS RHYTHM 94bpm(65-145bpm). 2 RUNS OF PSVT WERE SEEN WITH THE FASTEST LASTING 4 BEATS AT 137bpm AND THE LONGEST LASTING 4 BEATS AT 108bpm. RARE PACs WERE ALSO SEEN. OCCASIONAL PVCs WERE SEEN AT 2.1%. DURING 9 PATIENT TRIGGERED EVENTS WITH SYMPTOMS OF LIGHTHEADED, DIZZINESS, SHORT OF BREATH, BLURRED VISION, CHEST PAIN/PRESSURE, FLUTTERING/RACING, IRREGULAR BEATS RECORDING SHOW SINUS RHYTHM 80-124bpm WITH PVCs. PLAN: SUMMARY: ABNORMAL PROCEDURE SUMMARY: SINUS,PSVT,PACs,PVCs(2.1 %) Patient states he is taking the metoprolol daily. States his daughter fills a mediset for him. He states he is now taking Plavix 75mg daily and BASA daily from outside provider. He wants to make sure Dr. Steinberg is aware. No other issues or concerns at this time. /peyton/ Luis A Kaufman RN coffee shop attendant Signed: 06/12/2024 16:35 LUIS A [facility]AUFMAN [facility]
--- OUTSIDE RECORDS SUMMARY | 2024-07-24 21:31 | XMS_ITS | Encounter Summary ---
Author Name [facility] [place] Organization [facility] [place] Address [address] [place] [address] Care Team Providers Care Encapsulator Name Role Phone LAURA STEINBERG Primary Care [...] PART A Oct 14, 2009 PART A [id number] Alex GALLEGO PATIENT MEDICARE (WNR) MEDICARE (M) PART B Oct 14, 2009 PART B [id number] Alex GALLEGO PATIENT MEDICARE (WNR) MEDICARE (M) PART A Oct 14, 2009 PART A [id number] Alex GALLEGO PATIENT MEDICARE (WNR) MEDICARE (M) PART B Oct 14, 2009 PART B [id number] Alex GALLEGO PATIENT MEDICARE (WNR) MEDICARE (M) PART B Oct 14, 2009 PART B [id number] [phone] Alex GALLEGO PATIENT MEDICARE (WNR) MEDICARE (M) PART A Oct 14, 2009 PART A [id number] Alex GALLEGO PATIENT Selected Encounter This section includes the information on record at [place] for the Encounter. Date/Time Encounter Type Encounter Description Reason Pro vider Source Jun 13, 2024 11:39 AM Outpatient Encounter ADMIN PAT ACTIVTIES (MASNONCT) IHE Encounter Template Text not used by [place] Plan of Treatment: Future Appointments (+ 6 months) and Future Tests (+/- 45 days) The Plan of Treatment section includes future care activities for the patient from all [place] treatmentfacilities. This section includes future appointments and [...] 09:00 AM [facility]ONE [place] [facility] Jun 24, 2024 08:00 AM [facility] - NONE [place] [facility] Jun 30, 2024 11:00 AM [facility] - NONE [place] [facility] Jun 30, 2024 03:00 PM AMBULATORY - MEDICINE [facility] Jul 01, 2024 09:00 AM AMBULATORY - MEDICINE [facility] Jul 07, 2024 10:00 AM AMBULATORY - PSYCHIATRY [facility] Jul 08, 2024 10:00 [facility] Jul 10, 2024 08:30 AM AMBULATORY - MEDICINE [facility] Jul 24, 2024 03:00 PM AMBULATORY - PSYCHIATRY [facility] Aug 05, 2024 09:00 AM [facility] Aug 11, 2024 10:00 AM AMBULATORY - PSYCHIATRY [facility] Aug 12, 2024 09:00 AM [facility] August 18, 2024 09:00 AM [facility] - [facility]GERY [place] [facility] September 02, 2024 08:20 AM AMBULATORY - SURGERY [facility] Oct 01, 2024 09:00 AM [facility] NONE [facility] [facility] Oct 30, 2024 09:00 AM AMBULATORY - PSYCHIATRY [facility] Dec 09, 2024 08:00 AM AM[facility]ULATORY - NONE [facility] Lab Results: +/- 30 days of the encounter This section includes the Chemistry and Hematology Lab Results on record with [place] for the patient. Radiology Reports and Pathology Reports are provided separately, in subsequent sections. Lab Results This section contains the Chemistry/Hematology Results that were resulted 30 days before or 30 daysafter the date of the Encounter. Date/Time Source Result Type Result - Unit Interpretation Reference Range Specimen Type Comment Jun 30, 2024 03:27 PM [facility] BNP (STODDARD) PLASMA Specimen Type: PLASMA Comment: BNP results less than or equal to 100 pg/ml are public health representative of normal values in patients without CHF. BNP results greater than 100 pg/ml are considered abnormal and suggestive of CHF. Higher BNP concentrations in the first 72 hours after Acute Coronary Syndrome are associated with an increased risk of , myocardial infarction and CHF. Ordering Provider: SACHI SAINZ Report Released Date/Time: Jun 30, 2024 03:21 PM Reporting Lab: [address] [address] Performing Lab: [address] [address] BNP (STODDARD) 22 pg/mL 0-100 Jun 30, 2024 03:27 PM [facility] PANEL 1 PLASMA Specimen Type: PLASM [...] Jun 30, 2024 03:21 PM Reporting Lab: [address] [address] Performing Lab: [address] [address] CREATININE 1.43 mg/dL H 0.72-1.25 UREA NITROGEN 22 mg/dL 9-25 GLUCOSE 164 mg/dL H 74-100 SODIUM 139 mmol/L 136-145 POTASSIUM 3.7 mmol/L 3.5-5.1 CHLORIDE 102 mmol/L 98-107 CO2 27 mmol/L 22-29 CALCIUM 9.8 mg/dL 8.4-10.2 ANION GAP 10 meq/L 3-19 eGFR (CKD-EPI) 50 Jun 30, 2024 03:27 PM [facility] CBC/PLT BLOOD Specimen Type: BLOOD No comment entered. Ordering Provider: SACHI SAINZ Report Released Date/Time: Jun 30, 2024 03:21 PM Reporting Lab: [address] [place] [address] Performing Lab: [address] [address] WBC 7.2 10*3/uL 5.0-10.0 RBC 4.85 10*6/uL 4.6-6.2 HGB 14.7 g/dL 14.0-18.0 HCT 43.8 42.0-52.0 MCV 90.3 fL 80.0-94.0 MCH 30.3 pg 27.0-31.0 MCHC 33.6 g/dL 32.0-36.0 PLT 235 10*3/uL 150-450 MPV 10.6 fL 9.0-13.1 RDW 14.8 11.0-16.0 NRBC 0.0 0.0-0.0 May 15, 2024 09:46 AM [facility] MAGNESIUM PLASMA Specimen Type: PLASM A [...] 07, 2024 10:35 AM Reporting Lab: [address] [address] Performing Lab: [address] [address] MAGNESIUM 1.8 mg/dL 1.6-2.6 May 15, 2024 09:46 AM [facility]-General Blood BNP (Dizzion) PLASMA Specimen Type: PLASMA Comment: BNP results less than or equal to 100 pg/ml are public health representative of normal values in patients without CHF. BNP results greater than 100 pg/ml are considered abnormal and suggestive of CHF. Higher BNP concentrations in the first 72 hours after Acute Coronary Syndrome are associated with an increased risk of , myocardial infarction and CHF. Ordering Provider: LAURA STEINBERG Report Released Date/Time: May 07, 2024 10:35 AM Reporting Lab: [address] [address] Performing Lab: [address] [address] BNP (STODDARD) 29 pg/mL 0-100 May 15, 2024 09:46 AM [facility]-General Blood PANEL 1 PLASMA Specimen Type: PLASM A [...] 07, 2024 10:35 AM Reporting Lab: [address] [address] Performing Lab: [address] [address] CREATININE 1.54 mg/dL H 0.72-1.25 UREA NITROGEN [...] and tobacco- related health factors from the [place] facility where the Encounter took place. Current Smoking Status This section includes the most current smoking, or tobacco-related health factor, from the [place] facility where the Encounter took place. Date/Time Current Smoking Status Comment Edis baker May 07, 2024 10:00 AM VA-TOBACCO NEVER U SED CIGARETTES [facility] Tobacco Use History This section includes a history of the smoking, or tobacco-related health factors, that were collected on or before the date of the Encounter. The data comes from the [place] facility where the Encounter took place. Date/Time Smoking Status/Tobacco Use Comment Ramu harrington May 07, 2024 10:00 AM VA-TOBACCO NEVER U SED OTHER TYPE [facility] Feb 14, 2024 08:30 AM VA-TOBACCO FORMER USER [facility] Feb 14, 2024 08:30 AM VA-TOBACCO QUIT 15 YRS OR MORE [facility] Jan 10, 2023 11:00 AM VA-TOBACCO NEVER USED [facility] Dec 09, 2021 08:00 AM VA-TOBACCO NEVER USED [facility] Dec 10, 2020 09:30 AM VA-TOBACCO NEVER USED [facility] May 13, 2019 09:09 AM VA-TOBACCO NEVER USED [facility] Apr 03, 2018 09:45 AM VA-TOBACCO NEVER USED [facility] May 07, 2017 10:31 AM V9 LIFETIME NON-USER OF TOBACCO [facility] Apr 06, 2016 10:18 AM V9 LIFETIME NON-USER OF TOBACCO [facility] Jan 26, 2015 08:52 AM V9 LIFETIME NON-USER OF TOBACCO [facility] August 18, 2013 08:27 AM V9 LIFETIME NON-USER OF TOBACCO [facility] Sep 18, 2012 08:39 AM V9 LIFETIME NON-USER OF TOBACCO [facility] Jan 19, 2012 10:42 AM V9 LIFETIME NON-USER OF TOBACCO [facility] Jan 19, 2012 10:42 AM V9 TOBACCO OFFERED [facility] September 13, 2010 10:28 AM V9 LIFETIME NON-USER OF TOBACCO [facility] September 13, 2010 10:28 AM V9 TOBACCO OFFERED [facility] Sep 21, 2006 12:59 PM V9 LIFETIME NON-USER OF TOBACCO [facility] Jan 29, 2006 07:52 AM HF V9 LIFETIME NON-SMOKER [facility] Dec 30, 2004 08:05 AM HF V9 LIFETIME NON-SMOKER [facility] Dec 23, 2003 02:58 PM HF V9 LIFETIME NON-SMOKER [facility] Radiology Reports: +/- 30 days [...] Encounter. The data comes from all [facility] facilities. Date/Time Radiology Report Provider Source May 29, 2024 05:[address] PERFORMED BY OTHER FACILITY: ERIK GALLEGO [facility] [id number] -1945 Exm Date: MAY 29, 2024@17:13 Req Phys: LAURA STEINBERG Pat Loc: DE[facility]NE PACT LULU 1-2 (Req'g Lo Img Loc: OUTSIDE2 LD CT Service: Unknown (Case [id number] COMPLETE) [address] CT PERFORMED BY OTHER FACIL(CT Detailed) CPT:12901 Reason for Study: Exam imported from outside Clinical History: Original Data for Imported Study Patient Name: ERIK GALLEGO Date: 1945 Sex: M Study Date: 05/29/24 Study Time: 05:13:55 Study Description: CT CHEST PE/ABD/PEL W Referring Physician: TAMMI GEE Series 1: 2 CT files, description: RETAIL SERVICE TECHNICIAN Series 2: 216 CT files, description: 5.0mm [...] BY: / *ELECTRONICALLY FILED* [facility] May 27, 2024 08:07 AM MYOVIEW(1): ERIK GALLEGOKwame [id number] -1945 M Exm Date: MAY 27, 2024@08:07 Req Phys: LAURA STEINBERG Pat Loc: DEANNE POD SALON CUSTOMER EXPERIENCE SPECIALIST (Req'g Loc) Img Loc: NUCLEAR MEDICINE Service: [place] [address] (Case [id number] COMPLETE) MYOVIEW(1) (NM Detailed) CPT:A9502 Reason for [...] 27, 2024 Date Verified: MAY 27, 2024 Aquaculturist E-Sig: Report: STUDY: GXT REPORT: Patient exercised [...] Staff: ANIA ANDRADE APRN, Cardiology Verified by engineering mechanic for ANIA ANDRADE /ANIA ESPINOZA-LOW[facility]LL [facility] May 27, 2024 08:07 AM 91734(D) MYOCARDIAL SPECT(MULTIPLE): ERIK GALLEGO [id number] -1945 M Exm Date: MAY 27, 2024@08:07 Req Phys: LAURA STEINBERG Loc: DE[facility] POD SALON CUSTOMER EXPERIENCE SPECIALIST (Req'g Loc) Img Loc: NUCLEAR MEDICINE Service: Unknown [place] [id number] THIS IS AN AMENDED REPORT (Case [id number] COMPLETE) 53538(D) MYOCARDIAL SPECT(MULTIPL(NM Detailed) CPT:67771 Proc Modifiers : GXT Reason for Study: [...] 05, 2024 Date Verified: JUN 05, 2024 Aquaculturist E-Sig: Report: [facility], [place], [place] STUDY: Treadmill Exercise SPECT Tc-99m myoview [...] performed with tomographic and three-dimensional reconstructions with Kofikafe NM/CT 640 system. The patient performed treadmill [...] data sets in addition to the conventional pdr-bohhmbherqd-aceegtmkm images. Both filtered back projection and iterative [...] ventricular cavity. 4. SPECT images: Attenuation-corrected and ium-nroihrivtbk-ckdnicpfx SPECT images were evaluated. SPECT images demonstrate normal myocardial perfusion. There is a medium size, mild intensity defect located in the gevyc-bu-ncunjh inferior myocardium . The defect is fixed [...] Kerri Mena MD, Cardiology Attending /KERRI LONG-[facility] May 27, 2024 08:07 AM TC-99M FROM NON-HIGHLY ENRICHED URANIUM SOURCE: ERIK GALLEGO [id number] -1945 M Exm Date: MAY 27, 2024@08:07 Req Phys: STEINBERGLAURA Jovanny Landry Loc: DEANNE POD SALON CUSTOMER EXPERIENCE SPECIALIST (Req'g Loc) Img Loc: NUCLEAR MEDICINE Service: [place] [address] THIS IS AN AMENDED REPORT (Case [id number] COMPLETE) TC-99M FROM NON-HIGHLY ENRICHED U(NM Detailed) [...] 05, 2024 Date Verified: JUN 05, 2024 Aquaculturist E-Sig: Report: [facility], [place], [place] STUDY: Treadmill Exercise SPECT Tc-99m myoview [...] performed with tomographic and three-dimensional reconstructions with Kofikafe NM/CT 640 system. The patient performed treadmill [...] data sets in addition to the conventional cbi-ilxrhdzqdrf-ycqhmmeqj images. Both filtered back projection and iterative [...] ventricular cavity. 4. SPECT images: Attenuation-corrected and vmq-tbxunbeleet-bdmczckub SPECT images were evaluated. SPECT images demonstrate normal myocardial perfusion. There is a medium size, mild intensity defect located in the rjczz-zo-kylgjh inferior myocardium . The defect is fixed [...] Kerri Mena MD, Cardiology Attending /[facility] May 27, 2024 08:07 AM MYOVIEW(2): ERIK GALLEGO [id number] -1945 M Exm Date: MAY 27, 2024@08:07 Req Phys: LAURA STEINBERG Loc: DEANNE POD SALON CUSTOMER EXPERIENCE SPECIALIST (Req'g Loc) Img Loc: NUCLEAR MEDICINE Service: [place] [address] THIS IS AN AMENDED REPORT (Case [id number] COMPLETE) MYOVIEW(2) (NM Detailed) CPT:A9502 Reason for [...] 05, 2024 Date Verified: JUN 05, 2024 Aquaculturist E-Sig: Report: [facility], [place], [place] STUDY: Treadmill Exercise SPECT Tc-99m myoview [...] performed with tomographic and three-dimensional reconstructions with Kofikafe NM/CT 640 system. The patient performed treadmill [...] data sets in addition to the conventional gkp-lbqbxkqnvxw-omfqxzfqd images. Both filtered back projection and iterative [...] ventricular cavity. 4. SPECT images: Attenuation-corrected and oan-pdxzbszmuuu-mkvvqmbse SPECT images were evaluated. SPECT images demonstrate normal myocardial perfusion. There is a medium size, mild intensity defect located in the rrooo-nk-lqdkpi inferior myocardium . The defect is fixed [...] Kerri Mena MD, Cardiology Attending /[facility] May 27, 2024 08:07 AM CARD. STRESS TEST W/TREADMILL/...: ERIK GALLEGO [id number] -1945 M Ex Date: MAY 27, 2024@08:07 Req Phys: LAURA STEINBERG Pat Loc: DEANNE POD SALON CUSTOMER EXPERIENCE SPECIALIST (Req'g Loc) Img Loc: NUCLEAR MEDICINE Service: [place] [address] THIS IS AN AMENDED REPORT (Case [id number] COMPLETE) CARD. STRESS TEST W/TREADMILL/...(NM Detailed) CPT:63833 Reason for Study: SEE CLINICAL HISTORY Clinical [...] 05, 2024 Date Verified: JUN 05, 2024 Aquaculturist E-Sig: Report: [facility], [place], [place] STUDY: Treadmill Exercise SPECT Tc-99m myoview [...] performed with tomographic and three-dimensional reconstructions with Kofik[employer] NM/CT 640 system. The patient performed treadmill [...] data sets in addition to the conventional tnx-wxralguidfn-camhdenzy images. Both filtered back projection and iterative [...] ventricular cavity. 4. SPECT images: Attenuation-corrected and ash-hexmuabcnqd-awuopmawy SPECT images were evaluated. SPECT images demonstrate normal myocardial perfusion. There is a medium size, mild intensity defect located in the lucnc-db-yzyyni inferior myocardium . The defect is fixed [...] Kerri Mena MD, Cardiology Attending /[facility] May 15, 2024 09:57 AM CHEST TWO(2) VIEW PA&LAT: ERIK GALLEGO [id number] -1945 M Ex Date: MAY 15, 2024@09:57 Req Phys: LAURA STIENBERG Loc: DEANNE PACT PHONE LULU LenzReq'g Img Loc: [facility] RADIOLOGY Service: [place] [address] (Case [id number] COMPLETE)CHEST TWO(2) VIEW PA&LAT (RAD Detailed) CPT:66949 Reason for Study: dyspnea Clinical History: Report Status: Verified Date Reported: MAY 17, 2024 Date Verified: MAY 17, 2024 Aquaculturist E-Sig: Report: CHEST TWO(2) VIEW PA&LAT, 05/15/2024 10:02 AM EST INDICATION: dyspnea COMPARISON: April 16, 2024 Impression: Calcified granuloma right lung apex. No edema or pneumonia. No pleural effusion or pneumothorax. Heart size normal. No acute osseous abnormality. Primary Diagnostic Code: NO ALERT REQUIRED Primary Interpreting Staff: KAILYN STEELE, Staff Physician Verified by engineering mechanic for KAILYN STEELE /KAILYN AVILES [facility] Pathology Reports: +/- 30 days [...] Reporting Lab: [facility] [IA# [id number]] [address] [place] [address] - - - - - - - [...] left earlobe and consists of an unoriented, cdp-jcgc-uraokyg, yellow/white shave of skin measuring 0.5 x 0.4 x 0.2 cm. A rough papule is identified over the skin surface measuring 0.4 x 0.3 cm. The cut surface is yellow/white and grossly unremarkable. The cut surface is inked blue. The specimen is bisected to reveal a white solid interior. The specimen is submitted entirely in a single cassette. 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 /[place]/ JOE LEUNG pathologist Signed Jul 10, 2024@09:41 Performing Laboratory: Surgical Pathology Report Performed By: [facility] [CLIA# [id number]] [address] [place] [id number] $FTR - - - - - - - - - - - - - - - - - - - - - - - - - - - - - - - - - - - - - - - - (End of report) JOE LEUNG MD [facility] Date Jul 10, 2024 - - - - - - - - - - - - - - - - - - - - - - - - - - - - - - - - - - - - - - - - ERIK GALLEGO STANDARD FORM 515 ID:[id number] SEX:M :1945 AGE: 78 LOC:PATH PCP: Laura Steinberg MD /[place]/ OJE LEUNG pathologist Signed: 07/10/2024 09:41 JOE LEUNG [facility] Encounter Notes: All associated encounter notes This section contains the clinical notes associated to the Encounter. Date/Time Encounter Note(s) Provider Source Jun 05, 2024 11:39 AM NONVA NOTE: LOCAL TITLE: OUTSIDE MEDICAL RECORD-OTHER STANDARD TITLE: NONVA NOTE DATE OF NOTE: JUN 05, 2024@11:39 ENTRY DATE: JUN 13, 2024@11:39:40 AUTHOR: RIEDYK,JOE L EXP COSIGNER: URGENCY: STATUS: COMPLETED The scanned image may be viewed in [employer]. /[place]/ JEO MAX fileclerk Signed: 06/13/2024 11:39 JOE MAX [facility]
--- OUTSIDE RECORDS SUMMARY | 2024-07-24 21:31 | XMS_ITS | Encounter Summary ---
Author Name [facility] [place] Organization [facility] [place] Address [address] [place] [id number] Care Team Providers Care [place] Name Role Phone LAURA MCKEON Primary Care [...] PART A Oct 14, 2009 PART A [id number] [id number] Alex GALLEGO PATIENT MEDICARE (WNR) MEDICARE (M) PART B Oct 14, 2009 PART B [id number] Alex GALLEGO PATIENT MEDICARE (WNR) MEDICARE (M) PART A Oct 14, 2009 PART A [id number] Alex GALLEGO PATIENT MEDICARE (WNR) MEDICARE (M) PART B Oct 14, 2009 PART B [id number] Alex GALLEGO PATIENT MEDICARE (WNR) MEDICARE (M) PART B Oct 14, 2009 PART B [id number] [phone] [id number] Alex GALLEGO PATIENT MEDICARE (WNR) MEDICARE (M) PART A Oct 14, 2009 PART A [id number] Alex GALLEGO PATIENT Selected Encounter This section includes the information on record at [place] for the Encounter. Date/Time Encounter Type Encounter Description Reason Provider Source Jan 31, 2024 03:11 PM Outpatient Encounter AMBULATORY EDDIWINTERROSE E IHE Encounter Template Text not used by [place] Plan of Treatment: Future Appointments (+ 6 months) and Future Tests (+/- 45 days) The Plan of Treatment section includes future care activities for the patient from [facility] [place] [facility] This section includes future appointments and future orders which are active, pending or scheduled. Future Appointments This section includes appointments that were scheduled to occur 6 months from the date of the Encounter, up to a maximum of 20 appointments. The data comes from all [place] treatment facilities. Appointment Date/Time Appointment Type Appointme nt Facility Name Feb 14, 2024 08:30 AM [facility] [place] [facility] Feb 14, 2024 10:00 AM [facility] [place] [facility] Feb 27, 2024 02:00 PM [facility] - [facility]ONE [place] [facility] Feb 28, 2024 01:30 PM [facility] [place] [facility] Feb 28, 2024 02:30 PM AMBULATORY - REHAB MEDICIN E [facility] Feb 29, 2024 09:20 AM [facility] [place] [place] [facility] Mar 04, 2024 09:00 AM AMBULATORY - PS[facility]CHIATRY [facility] Mar 17, 2024 01:00 PM [place] [place] [facility] Mar 18, 2024 08:30 AM AMBULATORY - REHAB MEDICIN E [facility] Mar 18, 2024 10:00 AM [facility] [place] [facility] Mar 28, 2024 08:00 AM [facility] - [facility]ONE [place] [facility] Apr 01, 2024 10:00 AM AMBULATORY - PSYCHIATRY LE [facility] Apr 15, 2024 09:00 AM AMBULATORY - PSYCHIATRY LE [facility] Apr 16, 2024 11:35 AM [facility] Apr 25, 2024 08:30 AM [facility] Apr 29, 2024 10:00 AM AM[facility]ULATORY - MEDICINE [facility] May 06, 2024 10:00 AM [facility] May 07, 2024 10:00 AM AMBULATORY - MEDICINE [facility] May 15, 2024 10:30 AM AMBULATORY - REHAB MEDICIN E [facility] May 20, 2024 08:00 AM [facility]ONE [place] [facility] Lab Results: +/- 30 [...] Type Comment Feb 14, 2024 10:41 AM [facility] N MICROALBUMIN/CREAT RATIO URINE Specimen Type: URINE No comment entered. Ordering Provider: LAURA MCKEON Report Released Date/Time: Feb 14, 2024 09:03 AM Reporting Lab: [address] [address] Performing Lab: [address] [address] CREATININE 133.0 mg/dL MICROALBUMIN QUANT 5.8 mg/L 0.0-30.0 .MICROALBUMIN/CREA RATIO 4.4 ug/mg{creat} Feb 14, 2024 10:41 AM [facility] DRUG SCREEN EXPANDED IN-HOUSE URINE Specimen Type: [...] Feb 14, 2024 09:03 AM Reporting Lab: [facility] [address] [facility] [address] Performing Lab: [address] [address] TETRAHYDROCANNABINOL SCREEN NEG Cuto ff < 50 [...] < 1 Feb 14, 2024 10:19 AM [facility] LIPID PROFILE PLASMA Specimen Type: PLASM A [...] 14, 2024 09:03 AM Reporting Lab: [address] [address] Performing Lab: [address] [address] CHOLESTEROL 161 mg/dL 0-199 TRIGLYCERIDE 84 mg/dL 0-149 HDL CHOLESTEROL 54 mg/dL 40-69 DIRECT LDL CHOL. 95 mg/dL 0-100 Feb 14, 2024 10:19 AM [facility] GLYCOHEMOGLOBIN BLOOD Specimen Type: BLOOD Comment: [place] guidelines for A1c interpretation: Glycemic control targets are based on Shared Decision Making between clinicians and patients. Criteria used to establish an A1c target recommendation can be found at https://www.[place].gov/qualityandpatientsafety/ and include the use of result accuracy [...] 8.73 and 9.27. Ref: https://ngsp.org/CAPdata.asp. The in-house EVRYTHNG-SMR SITE D-100 analyzer has a historical CV <= 2%. Contact the laboratory for further performance characteristics of this assay. Ordering Provider: LAURA MCKEON Report Released Date/Time: Feb 14, 2024 09:03 AM Reporting Lab: [address] [address] Performing Lab: [facility] [address] [facility] [address] GLYCOHEMOGLOBIN 6.0 4.4-6.4 Feb 14, 2024 10:19 AM [facility] PLASMA Specimen Type: PLASM A [...] Feb 14, 2024 09:03 AM Reporting Lab: [facility] [address] [facility] [address] Performing Lab: [facility] [address] [facility] [address] CREATININE 1.38 mg/dL H 0.72-1.25 UREA NITROGEN [...] (CKD-EPI) 52 Feb 14, 2024 10:19 AM [facility] PLASMA Specimen Type: PLASM A Comment: [...] 14, 2024 09:03 AM Reporting Lab: [address] [address] Performing Lab: [address] [address] TSH 1.1076 m[IU]/mL 0.3500-4.9400 Feb 14, 2024 10:19 AM [facility] B12 VITAMIN PLASMA Specimen Type: PLASM A [...] 14, 2024 09:03 AM Reporting Lab: [address] [address] Performing Lab: [address] [address] B12 VITAMIN 761 pg/mL 213-816 Feb 14, 2024 10:19 AM [facility] 25-OH VITAMIN D SERUM Specime n Type: [...] 14, 2024 09:03 AM Reporting Lab: [address] [address] Performing Lab: [address] [address] 25-OH VITAMIN D 42.5 ng/mL 20.0-50.0 Feb 14, 2024 10:19 AM [facility] Specimen Type: BLOOD No comment entered. Ordering Provider: LAURA MCKEON Report Released Date/Time: Feb 14, 2024 09:03 AM Reporting Lab: [address] [address] Performing Lab: [address] [address] WBC 6.7 10*3/uL 5.0-10.0 RBC 5.17 10*6/uL 4.6-6.2 HGB 15.8 g/dL 14.0-18.0 HCT 47.1 42.0-52.0 MCV 91.1 fL 80.0-94.0 MCH 30.6 pg 27.0-31.0 MCHC 33.5 g/dL 32.0-36.0 PLT 257 10*3/uL 150-450 MPV 10.5 fL 9.0-13.1 RDW 14.4 11.0-16.0 NRBC 0.0 0.0-0.0 Jan 31, 2024 11:09 AM [facility] GLUCOSE-HAND MONITOR CAPILLARY Specime n Type: CAPILLARY Comment: $ Test performed by: [id number] Meter #: [id number] Ordering Provider: PELON CHEUNG Report Released Date/Time: Feb 04, 2024 07:19 AM Reporting Lab: [address] [address] Performing Lab: [address] [address] GLUCOSE-HAND MONITOR 125 mg/dL H 71-99 Pathology [...] the Encounter. The data comes from all [place] treatment facilities. Date/Time Pathology Report Provider Source Feb 05, 2024 03:20 PM LR SURGICAL PATHOL OGY REPORT: LOCAL TITLE: LR SURGICAL PATHOLOGY REPORT DATE OF NOTE: FEB 05, 2024@15:20:14 ENTRY DATE: FEB 05, 2024@15:20:14 AUTHOR: ROSS DOBSON EXP COSIGNER: URGENCY: STATUS: COMPLETED $APHDR Reporting Lab: [facility] [CLIA# [id number]] [address] [place] [address] - - - - - - - [...] submitted in one cassette. CPT CODE - 95033 MICROSCOPIC EXAM/DIAGNOSIS: Right long finger cyst, excision: -Findings consistent with digital mucous cyst. /peyton/ Ross Dobson MD Pathologist Signed Feb 05, 2024@15:20 Performing Laboratory: Surgical Pathology Report Performed By: [facility] [IA# [id number]] [address] [place] [address] $FTR - - - - - - [...] - - ERIK GALLEGO STANDARD FORM 515 ID:[id number] SEX:M :1945 AGE: 78 LOC:PATH PCP: Laura Mckeon MD /peyton/ Ross Dobson MD Pathologist Signed: 02/05/2024 15:20 ROSS DOBSON-D [facility] Jan 31, 2024 12:13 PM LR SURGICAL PATHOL OGY REPORT: LOCAL TITLE: LR SURGICAL PATHOLOGY REPORT DATE OF NOTE: JAN 31, 2024@12:13:13 ENTRY DATE: JAN 31, 2024@:13:13 AUTHOR: JUDY SIGALA EXP COSIGNER: URGENCY: STATUS: COMPLETED $APHDR Reporting Lab: [facility] [IA# [id number]] [address] [place] [address] - - - - - - - [...] CELL CARCINOMA LEFT PREAURICULAR CHEEK. CPT CODE: 25696 I ACTED BOTH THE SURGEON AND THE PATHOLOGIST FOR THIS CASE. PLEASE SEE CORRESPONDING MOHS NOTE IN CPRS AND MOHS MAP SCANNED TO [employer]. /es/ JUDY SIGALA Chief, Dermatology Signed Jan 31, 2024@12:13 Performing Laboratory: Surgical Pathology Report Performed By: [facility] [CLIA# [id number]] [address] [place] [address] $FTR - - - - - - - - - - - - - - - - - - - - - - - - - - - - - - - - - - - - - - - - (End of report) JUDY SIGALA MD [facility] Date Jan 22, 2024 - - - - - - - - - - - - - - - - - - - - - - - - - - - - - - - - - - - - - - - - ERIK GALLEGO STANDARD FORM 515 ID:[id number] SEX:M :1945 AGE: 78 LOC:DERM PCP: Laura Mckeon MD /peyton/ JUDY SIGALA Chief, Dermatology Signed: 01/31/2024 12:13 JUDY SIGALA-CDD [facility]
--- OUTSIDE RECORDS SUMMARY | 2024-07-24 21:31 | XMS_ITS ---
Author Name [facility] [place] Organization [place] Address [address] [place] [address] Care Team Providers Care Commercial Real Estate Paralegal Name Role Phone LAURA MCKEON Primary Care [...] PART A Oct 14, 2009 PART A [id number] [phone] Alex GALLEGO PATIENT MEDICARE (WNR) MEDICARE (M) PART B Oct 14, 2009 PART B [id number] Alex GALLEGO PATIENT MEDICARE (WNR) MEDICARE (M) PART A Oct 14, 2009 PART A [id number] Alex GALLEGO PATIENT MEDICARE (WNR) MEDICARE (M) PART A Oct 14, 2009 PART A [id number] Alex GALLEGO PATIENT MEDICARE (WNR) MEDICARE (M) PART B Oct 14, 2009 PART B [id number] [phone] Alex GALLEGO PATIENT MEDICARE (WNR) MEDICARE (M) PART B Oct 14, 2009 PART B [id number] Alex GALLEGO PATIENT Selected Encounter This section includes the information on record at [place] for the Encounter. Date/Time Encounter Type Encounter Description Reason Pro vider Source Dec 13, 2023 10:01 AM Outpatient Encounter ADMIN PAT ACTIVTIES (MASNONCT) IHE Encounter Template Text not used by [place] Plan of Treatment: Future Appointments (+ 6 months) and Future Tests (+/- 45 days) The Plan of Treatment section includes future care activities for the patient from all [place] treatmentfacilities. This section includes future appointments and future orders which are active, pending or scheduled. Future Appointments This section includes appointments that were scheduled to occur 6 months from the date of the Encounter, up to a maximum of 20 appointments. The data comes from all [place] treatment facilities. Appointment Date/Time Appointment Type Appointme nt Facility Name Dec 14, 2023 11:00 AM [facility]ONE [place] [facility] Dec 18, 2023 08:00 AM [facility] Dec 27, 2023 09:30 AM [facility] - [facility] Dec 27, 2023 03:00 PM [facility] Jan 04, 2024 09:00 AM AMBULATORY - MEDICINE [facility] Jan 10, 2024 01:30 PM AMBULATORY - NEUROLOGY [facility] Jan 14, 2024 08:00 AM [place]ONE [place] [facility] Jan 22, 2024 08:30 AM AM[facility]ULATORY - [facility]ICINE [facility] Jan 22, 2024 01:00 PM [place] [place]GERY [place] [facility] Jan 29, 2024 01:00 PM [facility]ATORY - [facility]ATRY [facility] Feb 14, 2024 08:30 [facility] Feb 14, 2024 10:00 AM [place] [place] [facility] Feb 27, 2024 02:00 PM [facility] - [facility]ONE [place] [facility] Feb 28, 2024 01:30 PM [place] [place] [facility] Feb 28, 2024 02:30 PM AMBULATORY - [facility]AB [facility]ICIN [facility] Feb 29, 2024 09:20 AM AMBULATORY - SURGERY [facility] Mar 04, 2024 09:00 AM [facility] Mar 17, 2024 01:00 PM AMBULATORY - SURGERY [facility] Mar 18, 2024 08:30 AM AMBULATORY - REHAB [facility]ICIN [facility] Mar 18, 2024 10:00 AM AMBULATORY - SURGERY [facility] Pathology Reports: +/- 30 days of [...] comes from all [facility] facilities. Date/Time Pathology Report Provider Source Nov 22, 2023 02:52 PM LR SURGICAL PATHOL OGY REPORT: LOCAL TITLE: LR SURGICAL PATHOLOGY REPORT DATE OF NOTE: NOV 22, 2023@14:52:40 ENTRY DATE: NOV 22, 2023@14:52:40 AUTHOR: FINA EDGAR COSIGNER: URGENCY: STATUS: COMPLETED $APHDR Reporting Lab: [facility] [[facility]# [id number]] [address] [place] [id number] - - - - - - - [...] entirely in one cassette. CPT CODE - 14075 MICROSCOPIC EXAM/DIAGNOSIS: Skin, preauricular cheek, left, shave biopsy: -Squamous cell carcinoma, involving the deep margin. /peyton/ FINA EDGAR Pathologist Signed Nov 22, 2023@14:52 Performing Laboratory: Surgical Pathology Report Performed By: [facility] [CLIA# [id number]] [address] [place] [address] $FTR - - - - - - - - - - - - - - - - - - - - - - - - - - - - - - - - - - - - - - - - (End of report) FINA EDGAR [facility] Date Nov 22, 2023 - - - - - - - - - - - - - - - - - - - - - - - - - - - - - - - - - - - - - - - - ERIK GALLEGO STANDARD FORM 515 ID:[id number] SEX:M :1945 AGE: 78 LOC:PATH PCP: Laura Mckeon MD /jocy EDGAR Pathologist Signed: 11/22/2023 14:52 FINA EDGAR-D [facility] Encounter Notes: All associated encounter notes This section contains the clinical notes associated to the Encounter. Date/Time Encounter Note(s) Provider Source Dec 13, 2023 10:01 AM ADMINISTRATIVE NOT E: LOCAL TITLE: CLERICAL/ADMIN NOTE STANDARD TITLE: ADMINISTRATIVE NOTE DATE OF NOTE: DEC 13, 2023@10:01 ENTRY DATE: DEC 13, 2023@10:01:32 AUTHOR: MAXINE NEVES COSIGNER: URGENCY: STATUS: COMPLETED Spoke to prior to leaving appointment to schedule per 12/13/23 RTC. Coordinated Plastic Surgery appointment for after veterans other scheduled appointment on 01/21 with Dermatology. also requested to schedule his Orthopedics follow-up while he was at desk, scheduled with ORTHO/ATT3 per 11/23/23 PtCSch (recall) order with PID of 03/17/2024. Appointments were scheduled with veterans preferred appointment day & time, details below. DEANNE PLAS PA2 Jan 22, 2024@13:00 FUTURE/SCHEDULED DEANNE ORTHO/ATT3/CD Mar 17, 2024@13:00 FUTURE/SCHEDULED Reminder letters mailed with pending appointment list. /peyton/ MAXINE NEVES AMSOksana Signed: 12/13/2023 10:06 MAXINE NEVES-THIERRYD [facility]
--- OUTSIDE RECORDS SUMMARY | 2024-07-24 21:31 | XMS_ITS | Encounter Summary ---
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 Solar Panel Installer Name Role Phone LAURA STEINBERG Primary Care [...] PART A Oct 14, 2009 PART A [id number] [phone] Alex GALLEGO PATIENT MEDICARE (WNR) MEDICARE (M) PART B Oct 14, 2009 PART B [id number] [phone] Alex GALLEGO PATIENT MEDICARE (WNR) MEDICARE (M) PART A Oct 14, 2009 PART A [id number] Alex GALLEGO PATIENT MEDICARE (WNR) MEDICARE (M) PART A Oct 14, 2009 PART A [id number] [phone] Alex GALLEGO PATIENT MEDICARE (WNR) MEDICARE (M) PART B Oct 14, 2009 PART B [id number] Alex GALLEGO PATIENT MEDICARE (WNR) MEDICARE (M) PART B Oct 14, 2009 PART B [id number] Alex GALLEGO PATIENT Selected Encounter This section includes the information on record at [place] for the Encounter. Date/Time Encounter Type Encounter Description Reason Provider Source Jun 30, 2024 03:00 PM OFFICE O/P EST LOW 20 MIN CARDIOLOGY ICD-10-CM I25.10 Athscl heart disease of [place] coronary artery w/o ERICA José Encounter Template Text not used by [place] Assessments - Encounter Diagnoses This section includes the primary and secondary diagnoses documented for the Encounter. Date/Time Primary/Secondary Diagnosis Diagnosis Name Provider Source Jun 30, 2024 03:37 PM PRIMARY Athscl heart disease of [place] coronary artery w/o SACHI Hardin [facility] Jun 30, 2024 03:37 PM SECONDARY Pulmonary hypertension, unspecified SACHI SAINZ [facility] Plan of Treatment: Future Appointments (+ 6 months) and Future Tests (+/- 45 days) The Plan of Treatment section includes future care activities for the patient [facility] [place] [facility] This section includes future appointments and future orders which are active, pending or scheduled. Future Appointments This section includes appointments that were scheduled to occur 6 months from the date of the Encounter, up to a maximum of 20 appointments. The data comes from all [place] treatment facilities. Appointment Date/Time Appointment Type Appointme nt Facility Name Jul 01, 2024 09:00 AM AMBULATORY - MEDICINE JAYNE SINGH-Joseph [facility] Jul 07, 2024 10:00 AM AMBULATORY - PSYCHIATRY [facility] Jul 08, 2024 10:00 AM AMBULATORY - MEDICINE JAYNE [facility] Jul 10, 2024 08:30 AM [facility] Jul 24, 2024 03:00 PM AMBULATORY - PSYCHIATRY [facility] Aug 05, 2024 09:00 AM AMBULATORY - MEDICINE JAYNE [facility] Aug 11, 2024 10:00 AM AMBULATORY - PSYCHIATRY COREY [facility] Aug 12, 2024 09:00 AM AMBULATORY - MEDICINE JAYNE [facility] August 18, 2024 09:00 AM AMBULATORY - SURGERY LARRY HOLLOWAY [facility] September 02, 2024 08:20 AM AMBULATORY - SURGERY LARRY HOLLOWAY [facility] Oct 01, 2024 09:00 AM AMBULATORY - NONE DALE Rios [facility] Oct 30, 2024 09:00 AM AMBULATORY - PSYCHIATRY COREY NICHOLAS [facility] Dec 09, 2024 08:00 AM [facility] Dec 31, 2024 08:30 AM AMBULATORY - MEDICINE JAYNE SINGH [facility] Lab Results: +/- 30 days [...] Type Comment Jun 30, 2024 03:27 PM DANNY HODGE [facility] PANEL 1 PLASMA Specimen Type: PLASMA Comment: Estimated Glomerular Filtration Rate (eGFR) calculated using the 2020 Chronic Kidney Disease-Epidemiol ogy (CKD-EPI) Collaboration creatinine equation; units of measure [...] or structural abnormalities does not represent CKD. === eGFR CKD Interpretation (mL/min/1.73 m2) stage >=90 G1 Normal 60-89 G2 Mild decrease 45-59 G3A Mild to moderate decrease 30-44 G3B Moderate to severe decrease 15-29 G4 Severe decrease <15 G5 Kidney failure Ordering Provider: SACHI SAINZ A Report Released Date/Time: Jun 30, 2024 03:21 PM Reporting Lab: [address] [id number] Performing Lab: [address] [id number] CREATININE 1.43 mg/dL H 0.72-1.25 UREA NITROGEN 22 mg/dL 9-25 GLUCOSE 164 mg/dL H 74-100 SODIUM 139 mmol/L 136-145 POTASSIUM 3.7 mmol/L 3.5-5.1 CHLORIDE 102 mmol/L 98-107 CO2 27 mmol/L 22-29 CALCIUM 9.8 mg/dL 8.4-10.2 ANION GAP 10 meq/L 3-19 eGFR (CKD-EPI) 50 Jun 30, 2024 03:27 PM [facility] CBC/PLT BLOOD Specimen Type: BLOOD No comment entered. Ordering Provider: SACHI SAINZ Report Released Date/Time: Jun 30, 2024 03:21 PM Reporting Lab: [address] [id number] Performing Lab: [address] [address] WBC 7.2 10*3/uL 5.0-10.0 RBC 4.85 10*6/uL 4.6-6.2 HGB 14.7 g/dL 14.0-18.0 HCT 43.8 42.0-52.0 MCV 90.3 fL 80.0-94.0 MCH 30.3 pg 27.0-31.0 MCHC 33.6 g/dL 32.0-36.0 PLT 235 10*3/uL 150-450 MPV 10.6 fL 9.0-13.1 RDW 14.8 11.0-16.0 NRBC 0.0 0.0-0.0 Jun 30, 2024 03:27 PM [facility] BNP (STODDARD) PLASMA Specimen Type : PLASMA Comment: BNP results less than or equal to 100 pg/ml are product sales representative of normal values in patients without CHF. BNP results greater than 100 pg/ml are considered abnormal and suggestive of CHF. Higher BNP concentrations in the first 72 hours after Acute Coronary Syndrome are associated with an increased risk of , myocardial infarction and CHF. Ordering Provider: SACHI SAINZ Report Released Date/Time: Jun 30, 2024 03:21 PM Reporting Lab: [address] [phone] Performing Lab: [address] [address] BNP (STODDARD) 22 pg/mL 0-100 Pathology Reports: +/- 30 days of the [...] the Encounter. The data comes from all [place] treatment facilities. Date/Time Pathology Report Provider Source Jul 10, 2024 09:41 AM LR SURGICAL PATHLILLIAM SHIN REPORT: LOCAL TITLE: LR SURGICAL PATHOLOGY REPORT DATE OF NOTE: JUL 10, 2024@09:41:15 ENTRY DATE: JUL 10, 2024@09:41:15 AUTHOR: JOE LEUNG COSIGNER: URGENCY: STATUS: COMPLETED $APHDR Reporting Lab: [facility] [CLIA# [id number]] [address] [place] [id number] - - - - - - - [...] left earlobe and consists of an unoriented, err-semd-hkrxhgc, yellow/white shave of skin measuring 0.5 x 0.4 x 0.2 cm. A rough papule is identified over the skin surface measuring 0.4 x 0.3 cm. The cut surface is yellow/white and grossly unremarkable. The cut surface is inked blue. The specimen is bisected to reveal a white solid interior. The specimen is submitted entirely in a single cassette. CPT CODE - [id number] MICROSCOPIC EXAM/DIAGNOSIS: Skin, below left earlobe, shave biopsy: -Squamous cell carcinoma in-situ. /peyton/ JOE LEUNG pathologist Signed Jul 10, 2024@09:41 Performing Laboratory: Surgical Pathology Report Performed By: [facility] [CLIA# [id number]] [address] [place] [phone] $FTR - - - - - - - - - - - - - - - - - - - - - - - - - - - - - - - - - - - - - - - - (End of report) JOE LEUNG MD [facility] Date Jul 10, 2024 - - - - - - - - - - - - - - - - - - - - - - - - - - - - - - - - - - - - - - - - ERIK GALLEGO STANDARD FORM 515 ID:[id number] SEX:M :1945 AGE: 78 LOC:PATH PCP: Laura Steinberg MD /[place]yton/ JOE LEUNG pathologist Signed: 07/10/2024 09:41 JOE LEUNG [facility] Encounter Notes: All associated encounter notes This section contains the clinical notes associated to the Encounter. Date/Time Encounter Note(s) Provider Source Jun 30, 2024 02:52 PM NURSING OUTPATIENT NOTE: LOCAL TITLE: [facility]INIC INTAKE NOTE STANDARD TITLE: NURSING OUTPATIENT NOTE DATE OF NOTE: JUN 30, 2024@14:52 ENTRY DATE: JUN 30, 2024@14:52:43 AUTHOR: NEISHA BANERJEE EXP COSIGNER: URGENCY: STATUS: COMPLETED Reason for visit/chief complaint: B/P: 113/60 (06/30/2024 14:50) P: 82 (06/30/2024 14:50) R: 18 (06/20/2024 08:54) T: 97.6 F [36.4 C] (06/30/2024 14:50) HT: 70 in [177.8 cm] (06/20/2024 08:54) WT: 209.0 lb [94.80 kg] (06/30/2024 14:50) Are you having any pain or recurrent pain in the last several weeks/months? No Severity Scale (0) Location: Duration: Characteristics: Pain education material offered to patient (for pain > 3) No Risk factors history: Hypertension Yes BP Rechecked No Comments: Patient notified fibrous wallboard inspector available upon request for any examinations/procedures. The [...] 05/07/24 Expires: 08/05/24 Refills: 0 Status: ACTIVE CLOTRIMAZOLE 1% TOP SOLN Directions: APPLY SMALL AMOUNT TO AFFECTED AREA TWICE A DAY FOR FUNGAL INFECTION Quantity: 30 for 30 days Issued: 07/13/23 Filled: 02/04/24 Expires: 07/13/24 Refills: 0 Status: ACTIVE FUROSEMIDE 40MG TAB Directions: TAKE ONE TABLET BY MOUTH EVERY MORNING FOR FLUID Quantity: 30 for 30 days Issued: 06/24/24 Filled: 06/25/24 Expires: 07/24/24 Refills: 0 Status: ACTIVE GABAPENTIN 300MG CAP [...] 60 for 30 days Issued: 02/14/24 Filled: 06/23/24 Expires: 02/14/25 Refills: 8 Status: ACTIVE LOSARTAN 100MG TAB Directions: TAKE ONE TABLET BY MOUTH DAILY FOR BLOOD PRESSURE STOPPING THE HCTZ Quantity: 90 for 90 days Issued: 04/16/24 Filled: 04/16/24 Expires: 07/15/24 Refills: 0 Status: ACTIVE MAGNESIUM OXIDE 420MG TAB Directions: TAKE ONE TABLET BY MOUTH TWICE A DAY FOR SUPPLEMENT Quantity: 200 for 90 days Issued: 04/16/24 Filled: 04/16/24 Expires: 07/15/24 Refills: 0 Status: ACTIVE MIRTAZAPINE 15MG TAB Directions: TAKE ONE-HALF TABLET BY MOUTH AT BEDTIME FOR SLEEP Quantity: 45 for 90 days Issued: 04/15/24 Filled: 07/12/24 Expires: 04/16/25 Refills: 1 Status: ACTIVE MULTIVIT/OPHTH AREDS2/LUTE/ZEAX CAP/TAB Directions: TAKE [...] 22 for 30 days Issued: 01/22/24 Filled: 06/23/24 Expires: 01/22/25 Refills: 7 Status: ACTIVE PRAZOSIN HCL 1MG CAP Directions: TAKE ONE CAPSULE BY MOUTH AT BEDTIME FOR NIGHTMARES. TAKE IN ADDITION TO 5 MG CAPSULE FOR TOTAL OF 6 MG AT BEDTIME Quantity: 90 for 90 days Issued: 04/15/24 Filled: 04/16/24 Expires: 07/14/24 Refills: 0 Status: ACTIVE PRAZOSIN HCL 5MG CAP Directions: TAKE ONE CAPSULE BY MOUTH AT BEDTIME FOR NIGHTMARES Quantity: 90 for 90 days Issued: 04/15/24 Filled: 07/12/24 Expires: 04/16/25 Refills: 1 Status: ACTIVE TABLET [...] 50 for 90 days Issued: 02/14/24 Filled: 08/24/24 Expires: 02/14/25 Refills: 1 Status: ACTIVE/SUSP ASPIRIN 81MG EC TAB Directions: TAKE ONE TABLET BY MOUTH DAILY FOR HEART Quantity: 90 for 90 days Issued: 06/20/24 Filled: 09/08/24 Expires: 06/21/25 Refills: 0 Status: ACTIVE/SUSP ATORVASTATIN CALCIUM 80MG TAB Directions: TAKE ONE TABLET BY MOUTH DAILY FOR CHOLESTEROL -DO NOT DRINK GRAPEFRUIT JUICE WHILE ON THIS DRUG Quantity: 90 for 90 days Issued: 06/10/24 Filled: 08/30/24 Expires: 06/11/25 Refills: 2 Status: ACTIVE/SUSP CHOLECALCIF 25MCG (D3-1,000UNIT) TAB Directions: TAKE FOUR TABLETS BY MOUTH DAILY FOR VITAMIN D SUPPLEMENT Quantity: 400 for 90 days Issued: 02/14/24 Filled: 08/24/24 Expires: 02/14/25 Refills: 1 Status: ACTIVE/SUSP CLOPIDOGREL BISULFATE 75MG TAB Directions: TAKE ONE TABLET BY MOUTH DAILY TO THIN BLOOD Quantity: 90 for 90 days Issued: 06/20/24 Filled: 09/08/24 Expires: 06/21/25 Refills: 0 Status: ACTIVE/SUSP CYANOCOBALAMIN 1000MCG TAB Directions: TAKE ONE TABLET BY MOUTH DAILY FOR VITAMIN B12 SUPPLEMENT Quantity: 90 for 90 days Issued: 02/14/24 Filled: 09/02/24 Expires: 02/14/25 Refills: 1 Status: ACTIVE/SUSP DICLOFENAC NA 1% TOP GEL Directions: APPLY SMALL AMOUNT TO AFFECTED AREA EVERY 6 HOURS NEEDED FOR SHOULDER PAIN Quantity: 300 for 90 days Issued: 02/14/24 Filled: 08/24/24 Expires: 02/14/25 Refills: 1 Status: ACTIVE/SUSP FLUTICASONE PROP 50MCG 120D NASAL INHL Directions: USE 2 SPRAYS IN EACH NOSTRIL DAILY FOR NASAL ALLERGY Quantity: 3 for 90 days Issued: 02/14/24 Filled: 08/24/24 Expires: 02/14/25 Refills: 1 Status: ACTIVE/SUSP LORATADINE 10MG TAB Directions: TAKE ONE TABLET BY MOUTH DAILY FOR ALLERGIES Quantity: 90 for 90 days Issued: 02/14/24 Filled: 09/01/24 Expires: 02/14/25 Refills: 1 Status: ACTIVE/SUSP METFORMIN HCL 1000MG TAB Directions: TAKE ONE TABLET BY MOUTH TWICE A DAY FOR DIABETES Quantity: 180 for 90 days Issued: 02/14/24 Filled: 08/24/24 Expires: 02/14/25 Refills: 1 Status: ACTIVE/SUSP METOPROLOL SUCCINATE 50MG SA TAB Directions: TAKE ONE-HALF TABLET BY MOUTH DAILY FOR BLOOD PRESSURE/HEART Quantity: 45 for 90 days Issued: 06/10/24 Filled: 08/30/24 Expires: 06/11/25 Refills: 2 Status: ACTIVE/SUSP PIOGLITAZONE HCL 30MG TAB Directions: TAKE ONE TABLET BY MOUTH DAILY FOR DIABETES Quantity: 90 for 90 days Issued: 02/14/24 Filled: 08/26/24 Expires: 02/14/25 Refills: 1 Status: ACTIVE/SUSP SERTRALINE HCL 100MG TAB Directions: TAKE ONE AND ONE-HALF TABLETS BY MOUTH EVERY MORNING FOR MOOD Quantity: 135 for 90 days Issued: 04/15/24 Filled: 09/12/24 Expires: 04/16/25 Refills: 0 Status: ACTIVE/SUSP No remote medications found. PENDING OUTPATIENT MEDICATONS (LOCAL/REMOTE): No local medications found. No remote medications found. ACTIVE NONVA MEDICATIONS (LOCAL): No local medications found. OUTPATIENT MEDICATIONS (LOCAL)WITHIN 90 DAYS: ACCU-CHEK GUIDE (GLUCOSE) TEST STRIP Directions: USE 1 STRIP TO TEST BLOOD SUGAR 3-4 TIMES WEEKLY Quantity: 50 for 90 days Issued: 02/14/24 Filled: 08/24/24 Expires: 02/14/25 Refills: 1 Status: ACTIVE/SUSP ASPIRIN 81MG EC TAB Directions: TAKE ONE TABLET BY MOUTH DAILY FOR HEART Quantity: 90 for 90 days Issued: 06/20/24 Filled: 09/08/24 Expires: 06/21/25 Refills: 0 Status: ACTIVE/SUSP ATORVASTATIN CALCIUM 80MG TAB Directions: TAKE ONE TABLET BY MOUTH DAILY FOR CHOLESTEROL -DO NOT DRINK GRAPEFRUIT JUICE WHILE ON THIS DRUG Quantity: 90 for 90 days Issued: 06/10/24 Filled: 08/30/24 Expires: 06/11/25 Refills: 2 Status: ACTIVE/SUSP CHOLECALCIF 25MCG (D3-1,000UNIT) TAB Directions: TAKE FOUR TABLETS BY MOUTH DAILY FOR VITAMIN D SUPPLEMENT Quantity: 400 for 90 days Issued: 02/14/24 Filled: 08/24/24 Expires: 02/14/25 Refills: 1 Status: ACTIVE/SUSP CLOPIDOGREL BISULFATE 75MG TAB Directions: TAKE ONE TABLET BY MOUTH DAILY TO THIN BLOOD Quantity: 90 for 90 days Issued: 06/20/24 Filled: 09/08/24 Expires: 06/21/25 Refills: 0 Status: ACTIVE/SUSP CYANOCOBALAMIN 1000MCG TAB Directions: TAKE ONE TABLET BY MOUTH DAILY FOR VITAMIN B12 SUPPLEMENT Quantity: 90 for 90 days Issued: 02/14/24 Filled: 09/02/24 Expires: 02/14/25 Refills: 1 Status: ACTIVE/SUSP DICLOFENAC NA 1% TOP GEL Directions: APPLY SMALL AMOUNT TO AFFECTED AREA EVERY 6 HOURS NEEDED FOR SHOULDER PAIN Quantity: 300 for 90 days Issued: 02/14/24 Filled: 08/24/24 Expires: 02/14/25 Refills: 1 Status: ACTIVE/SUSP FLUTICASONE PROP 50MCG 120D NASAL INHL Directions: USE 2 SPRAYS IN EACH NOSTRIL DAILY FOR NASAL ALLERGY Quantity: 3 for 90 days Issued: 02/14/24 Filled: 08/24/24 Expires: 02/14/25 Refills: 1 Status: ACTIVE/SUSP LORATADINE 10MG TAB Directions: TAKE ONE TABLET BY MOUTH DAILY FOR ALLERGIES Quantity: 90 for 90 days Issued: 02/14/24 Filled: 09/01/24 Expires: 02/14/25 Refills: 1 Status: ACTIVE/SUSP METFORMIN HCL 1000MG TAB Directions: TAKE ONE TABLET BY MOUTH TWICE A DAY FOR DIABETES Quantity: 180 for 90 days Issued: 02/14/24 Filled: 08/24/24 Expires: 02/14/25 Refills: 1 Status: ACTIVE/SUSP METOPROLOL SUCCINATE 50MG SA TAB Directions: TAKE ONE-HALF TABLET BY MOUTH DAILY FOR BLOOD PRESSURE/HEART Quantity: 45 for 90 days Issued: 06/10/24 Filled: 08/30/24 Expires: 06/11/25 Refills: 2 Status: ACTIVE/SUSP PIOGLITAZONE HCL 30MG TAB Directions: TAKE ONE TABLET BY MOUTH DAILY FOR DIABETES Quantity: 90 for 90 days Issued: 02/14/24 Filled: 08/26/24 Expires: 02/14/25 Refills: 1 Status: ACTIVE/SUSP SERTRALINE HCL 100MG TAB Directions: TAKE ONE AND ONE-HALF TABLETS BY MOUTH EVERY MORNING FOR MOOD Quantity: 135 for 90 days Issued: 04/15/24 Filled: 09/12/24 Expires: 04/16/25 Refills: 0 Status: ACTIVE/SUSP PANTOPRAZOLE NA 40MG EC TAB Directions: TAKE ONE TABLET BY MOUTH TWICE A DAY 30 MINUTES BEFORE A MEAL FOR STOMACH -TAKE ON AN EMPTY STOMACH. Quantity: 180 for 90 days Issued: 06/26/23 Filled: 12/13/23 Expires: 06/26/24 Refills: 0 Status: DISCONTINUED OUTPATIENT MEDICATIONS (LOCAL) WITHIN 90 DAYS: ACCU-CHEK GUIDE (GLUCOSE) TEST STRIP Directions: USE 1 STRIP TO TEST BLOOD SUGAR 3-4 TIMES WEEKLY Quantity: 50 for 90 days Issued: 02/14/24 Filled: 08/24/24 Expires: 02/14/25 Refills: 1 Status: ACTIVE/SUSP ASPIRIN 81MG EC TAB Directions: TAKE ONE TABLET BY MOUTH DAILY FOR HEART Quantity: 90 for 90 days Issued: 06/20/24 Filled: 09/08/24 Expires: 06/21/25 Refills: 0 Status: ACTIVE/SUSP ATORVASTATIN CALCIUM 80MG TAB Directions: TAKE ONE TABLET BY MOUTH DAILY FOR CHOLESTEROL -DO NOT DRINK GRAPEFRUIT JUICE WHILE ON THIS DRUG Quantity: 90 for 90 days Issued: 06/10/24 Filled: 08/30/24 Expires: 06/11/25 Refills: 2 Status: ACTIVE/SUSP CHOLECALCIF 25MCG (D3-1,000UNIT) TAB Directions: TAKE FOUR TABLETS BY MOUTH DAILY FOR VITAMIN D SUPPLEMENT Quantity: 400 for 90 days Issued: 02/14/24 Filled: 08/24/24 Expires: 02/14/25 Refills: 1 Status: ACTIVE/SUSP CLOPIDOGREL BISULFATE 75MG TAB Directions: TAKE ONE TABLET BY MOUTH DAILY TO THIN BLOOD Quantity: 90 for 90 days Issued: 06/20/24 Filled: 09/08/24 Expires: 06/21/25 Refills: 0 Status: ACTIVE/SUSP CYANOCOBALAMIN 1000MCG TAB Directions: TAKE ONE TABLET BY MOUTH DAILY FOR VITAMIN B12 SUPPLEMENT Quantity: 90 for 90 days Issued: 02/14/24 Filled: 09/02/24 Expires: 02/14/25 Refills: 1 Status: ACTIVE/SUSP DICLOFENAC NA 1% TOP GEL Directions: APPLY SMALL AMOUNT TO AFFECTED AREA EVERY 6 HOURS NEEDED FOR SHOULDER PAIN Quantity: 300 for 90 days Issued: 02/14/24 Filled: 08/24/24 Expires: 02/14/25 Refills: 1 Status: ACTIVE/SUSP FLUTICASONE PROP 50MCG 120D NASAL INHL Directions: USE 2 SPRAYS IN EACH NOSTRIL DAILY FOR NASAL ALLERGY Quantity: 3 for 90 days Issued: 02/14/24 Filled: 08/24/24 Expires: 02/14/25 Refills: 1 Status: ACTIVE/SUSP LORATADINE 10MG TAB Directions: TAKE ONE TABLET BY MOUTH DAILY FOR ALLERGIES Quantity: 90 for 90 days Issued: 02/14/24 Filled: 09/01/24 Expires: 02/14/25 Refills: 1 Status: ACTIVE/SUSP METFORMIN HCL 1000MG TAB Directions: TAKE ONE TABLET BY MOUTH TWICE A DAY FOR DIABETES Quantity: 180 for 90 days Issued: 02/14/24 Filled: 08/24/24 Expires: 02/14/25 Refills: 1 Status: ACTIVE/SUSP METOPROLOL SUCCINATE 50MG SA TAB Directions: TAKE ONE-HALF TABLET BY MOUTH DAILY FOR BLOOD PRESSURE/HEART Quantity: 45 for 90 days Issued: 06/10/24 Filled: 08/30/24 Expires: 06/11/25 Refills: 2 Status: ACTIVE/SUSP PIOGLITAZONE HCL 30MG TAB Directions: TAKE ONE TABLET BY MOUTH DAILY FOR DIABETES Quantity: 90 for 90 days Issued: 02/14/24 Filled: 08/26/24 Expires: 02/14/25 Refills: 1 Status: ACTIVE/SUSP SERTRALINE HCL 100MG TAB Directions: TAKE ONE AND ONE-HALF TABLETS BY MOUTH EVERY MORNING FOR MOOD Quantity: 135 for 90 days Issued: 04/15/24 Filled: 09/12/24 Expires: 04/16/25 Refills: 0 Status: ACTIVE/SUSP CYANOCOBALAMIN 1000MCG TAB Directions: TAKE [...] 11/28/23 Expires: 11/28/24 Refills: 1 Status: DISCONTINUED FUROSEMIDE 20MG TAB Directions: TAKE ONE TABLET BY MOUTH EVERY MORNING FOR FLUID Quantity: 60 for 60 days Issued: 05/07/24 Filled: 05/07/24 Expires: 07/06/24 Refills: 0 Status: DISCONTINUED (EDIT) GABAPENTIN 300MG CAP Directions: TAKE ONE CAPSULE [...] case of an emergency situation. Yes /peyton/ NEISHA BANERJEE LPN Signed: 06/30/2024 14:53 NEISHA BANERJEEINGTON-CDD [facility] Jun 30, 2024 08:08 AM CARDIOLOGY CONSULT : LOCAL TITLE: CARDIOLOGY CONSULT REPONSE STANDARD TITLE: CARDIOLOGY CONSULT DATE OF NOTE: JUN 30, 2024@08:08 ENTRY DATE: JUN 30, 2024@08:08:10 AUTHOR: SACHI SAINZ COSIGNER: ERICA JOHNSON URGENCY: STATUS: COMPLETED CARDIOLOGY CONSULT REPONSE Has ADDENDA CARDIOLOGY CONSULT NOTE Reason for consult: Recent LAD Stent, New Diagnosis of Pulmonary HTN HPI: ERIK GALLEGO is a 78 MALE with a past medical history of CAD s/p PCI to proximal LAD, CKD, and PH who presents to Cardiology clinic to establish care. Briefly patient presented to [facility] with symptoms concerning for unstable angina. Underwent R/LHC. LHC revealed 90% lesion in proximal LAD for which he recieved one stent. His RHC revealed a RA pressure of 6, PA pressure of 42/15, and and Wedge of 15 for which he was diagnosed with pulmonary hypertension. As part of his workup he completed a CT chest which then revealed a mosaic appearance of the lung parenchyma and enlarged mediastinal lymph nodes (differential includes sarcoidosis and ILD). He presents today for further follow up. In the interval he reports that he is doing much better. Still has intermittent orthostasis with standing too quickly but taking medications as prescribed. No issues with medications. ROS: Reviewed and negative except as listed above in HPI. PMHx: Active problems - Computerized Problem List is the source for the followin. Coronary artery disease 2. Pulmonary hypertension 3. Exposure to potentially hazardous substance 4. Obstructive sleep apnea 5. Pseudophakia 6. Chronic post-traumatic stress disorder 7. Polyp of colon repeat colonoscopy due 12/2018 8. Vitamin B12 deficiency (non anemic) 9. Lumbar Radiculopathy 10. 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 Osteoarthritis (SNOMED CT 143415113) 13. Gastro-esophageal reflux disease with esophagitis (SNOMED CT 855978461) 14. Allergic rhinitis * 15. Hypertension (SNOMED CT 62820406) 16. Diabetes mellitus (SNOMED CT 80501326) 17. NEPHROLITHIASIS 18. Gout * PSHx: Reviewed - noncontributory Social Hx: Reviewed - noncontributory Family Hx: Reviewed - noncontributory Medications: Active Outpatient Medications (including Supplies): Active [...] ONE-HALF TABLET BY MOUTH AT ACTIVE BEDTIME Indication: FOR SLEEP 21) MULTIVIT/OPHTH AREDS2/LUTE/ZEAX [...] ONE CAPSULE BY MOUTH AT BEDTIME ACTIVE Indication: FOR NIGHTMARES 26) SERTRALINE HCL 100MG TAB TAKE ONE AND ONE-HALF TABLETS BY ACTIVE (S) MOUTH EVERY MORNING Indication: FOR MOOD 27) TABLET CUTTER USE TO SPLIT TABLETS DIRECTED NEEDED ACTIVE 28) TRIAMCINOLONE ACETONIDE 0.1% OINT APPLY SMALL AMOUNT TO ACTIVE AFFECTED AREA TWICE A DAY Indication: FOR SKIN RASH Allergies/Adverse Reactions: LISINOPRIL, FOSINOPRIL, PERCOCET Relevant Imaging/Procedures: reviewed reports of R/[facility], images not available Physical Exam: Vitals: TEMP: 96.7 F [35.9 C] (06/20/2024 08:54) PULSE:73 (06/20/2024 08:54) BP: 133/77 (06/20/2024 08:54) RESP: 18 (06/20/2024 08:54) Pulse Ox: JUN 20, 2024@08:54:31 -- PULSE OXIMETRY: 98 WT: 209 lb [94.80 kg] (06/20/2024 08:54) Gen: A&Ox3, NAD HEENT: Normocephalic/Atraumatic, MMM Neck: Supple, no JVD Pulm: Normal work of breathing, CTA bilaterally with no wheezes or crackles CV: RRR, normal S1/S2, no m/r/g Abd: Soft, NT/ND Extr: Warm to touch, trace LE edema, distal pulses intact and symmetric in upper and lower extremities Neuro: No gross focal deficits, normal speech Psych: Normal affect, answers questions appropriately Assessment/Plan: ERIK GALLEGO is a 78 MALE with a past medical history as described above who we are seeing in consultation for CAD and Pulmonary HTN. Regarding his CAD, he had limited residual disease and is doing well from that perspective. Regarding this diagnosis of PH, his CT chest findings are concerning although his RHC pressures are not that impressive (Mean PA of 24mmHg which by new criteria is positive, Wedge of 15mmHg, and PVR is reportedly less than 1 CORDERO [No access to waveform tracings; this is per chart review]). 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 His ECHO at the [facility] didn't describe diastolic dysfunction but given everything it seems he likely has some component of HFpEF and will need a daily diuretic and blood pressure. He is still following with an outside Cloth Stock Sorter who placed stent. CAD - Continue aspirin and plavix - Continue high intensity statin PH HFpEF - Daily diuretic - Blood pressure control RTC 6 months /[place]/ SACHI SAINZ CARDIOLOGY Signed: 06/30/2024 15:37 /[place]/ ERICA JOHNSON MD CARDIOLOGY ATTENDING Cosigned: 07/03/2024 13:28 07/03/2024 ADDENDUM STATUS: COMPLETED I have reviewed the case with the fellow/resident and agree with the assessment/plan as documented. /[place]/ ERICA JOHNSON MD CARDIOLOGY ATTENDING Signed: 07/03/2024 13:28 07/03/2024 ADDENDUM STATUS: COMPLETED exited clinic per MD. All medications and treatment plan was discussed with prior to exiting clinic by MD. to RTC 6 months DEANNE MED CARD F2 via F2F, . Per provider order/instruction above. If this provider is not available or requires overbook please alert Remodeler. Appointment letter to be mailed. /peyton/ Diego Fabian RN IR RN Signed: 07/03/2024 14:28 SACHI SIANZ-D [facility]
--- OUTSIDE RECORDS SUMMARY | 2024-07-24 21:32 | XMS_ITS | Encounter Summary ---
Author Name [facility] [place] Organization [place] Address [address] [place] [address] Care Team Providers Care Wide Area Network Administrator Name Role Phone CYNDI STEINBERG Primary Care [...] PART A Oct 14, 2009 PART A [id number] Alex GALLEGO PATIENT MEDICARE (WNR) MEDICARE (M) PART B Oct 14, 2009 PART B [id number] Alex GALLEGO PATIENT MEDICARE (WNR) MEDICARE (M) PART A Oct 14, 2009 PART A [id number] Alex GALLEGO PATIENT MEDICARE (WNR) MEDICARE (M) PART A Oct 14, 2009 PART A [id number] [id number] Alex GALLEGO PATIENT MEDICARE (WNR) MEDICARE (M) PART B Oct 14, 2009 PART B [id number] Alex GALLEGO PATIENT MEDICARE (WNR) MEDICARE (M) PART B Oct 14, 2009 PART B [id number] Alex GALLEGO PATIENT Selected Encounter This section includes the information on record at [place] for the Encounter. Date/Time Encounter Type Encounter Description Reason Provider Source Mar 17, 2024 01:00 PM OFFICE O/P EST MOD 30 MIN ORTHO/JOINT SURG ICD-10-CM M25.511 Pain in right shoulder LUPE MILES [facility] Encounter Template Text not used by [place] Assessments - Encounter Diagnoses This section includes the primary and secondary diagnoses documented for the Encounter. Date/Time Primary/Secondary Diagnosis Diagnosis Name Provider Source Mar 18, 2024 06:56 AM PRIMARY Pain in right shoulder LUPE MILES [facility] Plan of Treatment: Future [...] Appointment Type Appointme nt Facility Name Mar 18, 2024 08:30 AM [facility] Mar 18, 2024 10:00 AM AMBULATORY - SURGERY [facility] Mar 28, 2024 08:00 AM AMBULATORY - NONE [facility]NEINGTO Gabriel [facility] Apr 01, 2024 10:00 AM AM[facility]RY [facility] Apr 15, 2024 09:00 AM AMB[facility]ORY - PS[facility]CHIATRY [facility] Apr 16, 2024 11:35 AM [facility] Apr 25, 2024 08:30 AM [facility] Apr 29, 2024 10:00 AM AMBULAT[facility] - MEDICINE [facility] May 06, 2024 10:00 AM AMBULATORY - PSYCHIATRY [facility] May 07, 2024 10:00 AM [facility] May 15, 2024 10:30 AM AMBULATORY - REHAB MEDICIN E DE[facility]NEINGTON [facility] May 20, 2024 08:00 [facility] May 20, 2024 10:00 AM [facility] May 27, 2024 08:00 AM [facility] Jun 06, 2024 08:00 AM AMBULATORY - SURGERY DEANNEIN JEWEL [facility] Jun 10, 2024 08:50 AM [facility] Jun 10, 2024 11:00 AM AMBULATORY - PSYCHIATRY LE CRISTOPHER [facility] Jun 20, 2024 09:00 AM AMBULATORY - NONE [facility] Jun 24, 2024 08:00 AM AMBULATORY - NONE [facility] Jun 30, 2024 11:00 AM AMBULATORY - NONE [facility] [...] Interpretation Reference Range Specimen Type Comment Apr 16, 2024 01:17 PM [facility] COVID-19 AND FLU/RSV DIAGNOSTIC PANEL NASOPHARYNX S pecimen Type: NASOPHARYNX Comment: Positive results are indicative of active infection with SARS-CoV-2; clinical correlation with patient history/diagnost ic information is necessary. Positive results do not [...] Food and Drug Administration's Emergency Use Authorization. Literably Genexpert (596) Ordering Provider: ERIK KIM Report Released Date/Time: Apr 16, 2024 01:13 PM Reporting Lab: [address] [address] Performing Lab: [address] [address] COVID-19 PCR (FLUVID) Negative Negative FLU A PCR (FLUVID) Negative Negative FLU B PCR (FLUVID) Negative Negative RSV PCR (FLUVID) Negative Negative Apr 16, 2024 12:08 PM [facility] LACTIC ACID PLASMA Specimen Type : PLASMA No comment entered. Ordering Provider: ERIK KIM Report Released Date/Time: Apr 16, 2024 01:19 PM Reporting Lab: [address] [address] Performing Lab: [address] [address] LACTIC ACID 2.8 mmol/L H 0.5-2.2 Apr 16, 2024 12:08 PM [facility] PROTHROMBIN TIME PLASMA Specimen Ty pe: PLASMA No comment entered. Ordering Provider: ERIK KIM Report Released Date/Time: Apr 16, 2024 01:19 PM Reporting Lab: [address] [address] Performing Lab: [address] [address] PT PATIENT 13.2 s 11.7-14.4 INTERNATIONAL NORMALIZED RATIO 1.02 0 .87-1.14 Apr 16, 2024 12:08 PM [facility] PHOSPHORUS PLASMA Specimen Type: PLASM A Comment: [...] I information resource can be reached in [facility] in the Tools menu, under [...] Apr 16, 2024 01:19 PM Reporting Lab: [address] [address] Performing Lab: [address] [address] PHOSPHORUS 2.5 mg/dL 2.3-4.7 Apr 16, 2024 12:08 PM [facility] MAGNESIUM PLASMA Specimen Type: PLASM [...] Apr 16, 2024 01:19 PM Reporting [facility] [address] [address] Performing [facility]: [facility] [address] [address] MAGNESIUM 1.5 mg/dL L 1.6-2.6 Apr 16, 2024 12:08 PM [facility] CK TOTAL PLASMA Specimen Type: PLASM [...] I information resource can be reached in [facility] in the Tools menu, under the Education [...] Apr 16, 2024 01:19 PM Reporting Lab: [address] [address] Performing Lab: [address] [address] CK TOTAL 64 U/L 30-200 Apr 16, 2024 12:08 PM [facility] HIGH SENSITIVITY TROPONIN I PLASMA Specimen Ty [...] I information resource can be reached in [facility] in the Tools menu, under [...] Apr 16, 2024 01:19 PM Reporting Lab: [address] [address] Performing Lab: [place] [phone] HIGH SENSITIVITY TROPONIN I <4 4-35 Apr 16, 2024 12:08 PM [facility] BNP (STODDARD) PLASMA Specimen Type : PLASMA Comment: BNP results less than or equal to 100 pg/ml are data entry representative of normal values in patients without CHF. BNP results greater than 100 pg/ml are considered abnormal and suggestive of CHF. Higher BNP concentrations in the first 72 hours after Acute Coronary Syndrome are associated with an increased risk of , myocardial infarction and CHF. Ordering Provider: ERIK KIM Report Released Date/Time: Apr 16, 2024 01:38 PM Reporting Lab: [place] [phone] Performing Lab: [place] [phone] BNP (STODDARD) <10 pg/mL 0-100 Apr 16, 2024 12:08 PM [facility] AUTOMATED DIFF BLOOD Specimen Type : BLOOD Comment: ~STAT Ordering Provider: ERIK KIM Report Released Date/Time: Apr 16, 2024 01:19 PM Reporting Lab: [place] [phone] Performing Lab: [place] [phone] A-LYMPH % 14.8 L 24.0-44.0 A-MONO % 4.7 0.1-6.0 A-GRAN % 79.5 H 42.0-75.0 A-LYMPH # 0.94 10*3/uL L 1.20-3.40 A-MONO # 0.30 10*3/uL 0.00-0.60 A-GRAN # 5.07 10*3/uL 1.40-6.50 A-BASO % 0.2 0.0-3.0 A-BASO # 0.01 10*3/uL 0.00-0.20 A-EOS % 0.3 0.0-10.0 A-EOS # 0.02 10*3/uL 0.00-0.70 A-IG % 0.5 0.0-0.5 A-IG # 0.03 10*3/uL 0.00-0.06 Apr 16, 2024 12:08 PM [facility] CBC/PLT BLOOD Specimen Type: BLOOD Comment: ~STAT Ordering Provider: ERIK KIM Report Released Date/Time: Apr 16, 2024 01:19 PM Reporting Lab: [facility] [address] [facility] [address] Performing Lab: [address] [address] WBC 6.4 10*3/uL 5.0-10.0 RBC 5.02 10*6/uL 4.6-6.2 HGB 15.0 g/dL 14.0-18.0 HCT 44.3 42.0-52.0 MCV 88.2 fL 80.0-94.0 MCH 29.9 pg 27.0-31.0 MCHC 33.9 g/dL 32.0-36.0 PLT 208 10*3/uL 150-450 MPV 11.1 fL 9.0-13.1 RDW 14.1 11.0-16.0 NRBC 0.0 0.0-0.0 Apr 16, 2024 12:08 PM [facility] PANEL 5 PLASMA Specimen Type: [...] I information resource can be reached in [facility] in the Tools menu, under [...] Apr 16, 2024 01:19 PM Reporting Lab: [facility] [address] [facility] [address] Performing Lab: [address] [address] CREATININE 1.48 mg/dL H 0.72-1.25 UREA NITROGEN [...] SHOULDER-LEFT 2 OR MORE VIEWS: ERIK GALLEGO [id number] -1945 M Exm Date: APR 16, 2024@13:47 Req Phys: LUPE MILES Loc: DEANNE ORTHO/ATT3/CD (Req'g Loc) Img Loc: CDD RADIOLOGY Service: [place] [address] (Case [id number] COMPLETE) SHOULDER-LEFT 2 OR MORE VIEWS (RAD Detailed) CPT:93937 Reason for Study: LEFT SHOULDER PAIN Clinical History: Report Status: Verified Date Reported: APR 17, 2024 Date Verified: APR 17, 2024 Graduation Coach E-Sig: Report: SHOULDER-LEFT 2 OR MORE VIEWS, 04/16/2024 3:06 PM EST INDICATION: LEFT SHOULDER PAIN COMPARISON: None Impression: No acute fracture or malalignment. Mild glenohumeral and AC joint degenerative change. Primary Diagnostic Code: NO ALERT REQUIRED Primary Interpreting Staff: ALFONZO STEELE, Staff Physician Verified by electoral officer for ALFONZO STEELE /ALFONZO DEGROOT-Joseph [facility] Apr 16, 2024 01:47 PM CHEST SINGLE(1) EW: ERIK GALLEGO NATHANIEL [id number] -1945 M Exm Date: APR 16, 2024@13:47 Req Phys: ERIK KIM Loc: ED/7A-4PM (Req'g Loc) Img Loc: CDD RADIOLOGY Service: [place] [address] (Case [id number] COMPLETE) CHEST SINGLE(1) VIEW (RAD Detailed) CPT:35190 Proc Modifiers : PORTABLE EXAM Reason for Study: WEAKNESS, COUGH Clinical History: Report Status: Verified Date Reported: APR 17, 2024 Date Verified: APR 17, 2024 Graduation Coach E-Sig: Report: CHEST SINGLE(1) VIEW, 04/16/2024 3:06 PM EST INDICATION: WEAKNESS, COUGH COMPARISON: February 10, 2023 FINDINGS: Support apparatus: None. Heart/Mediastinum: Normal size and contours. Lungs/Pleura: Patchy basilar opacities. No pleural effusion or pneumothorax. Upper abdomen: Unremarkable. Bones/Soft tissues: No acute abnormality. Impression: Bibasilar atelectasis or infiltration. Primary Diagnostic Code: SIGNIFICANT ABNORMALITY, ATTN NEEDED Primary Interpreting Staff: ALFONZO STEELE, Staff Physician Verified by electoral officer for ALFONZO STEELE /ALFONZO DEGROOT-[facility] Encounter Notes: All associated encounter notes This section contains the clinical notes associated to the Encounter. Date/Time Encounter Note(s) Provider Source Mar 17, 2024 01:00 PM ORTHOPEDIC SURGERY NOTE: LOCAL TITLE: ORTHOPEDIC CLINIC PHYSICIAN NOTE STANDARD TITLE: ORTHOPEDIC SURGERY NOTE DATE OF NOTE: MAR 17, 2024@13:00 ENTRY DATE: MAR 17, 2024@13:05:57 AUTHOR: LUPE MILES COSIGNER: URGENCY: STATUS: COMPLETED ORTHOPEDIC CLINIC PHYSICIAN NOTE Has ADDENDA [id number] RE:_Ortho Shoulder Nursing Screening Note reviewed: No PAIN: 4/10 on a Numeric Rating Scale[NRS] Presenting problems and reason for visit: Right shoulder pain HPI:_[id number]-[id number] has been receiving intermittent subacromial [SA] corticosteroid injections [CSI] for a number of years. ROS: 11 point ROS was reviewed on CPRS cover sheet. Pertinent positives and/or negatives as per HPI. JAYLA; PTSD; lumbar Radiculalgia; gout; diabetes [HgA1c equals 6.9%]; simple Obesity [BMI>29.99 kg/m?] WORK-UP: ORTHO SHOULDER-RIGHT [09/02/2021] X-ray of the right shoulder found degenerative changes in the AC joint. MR_SHOULDER-RT [08/28/2017] Partial tearing with underlying tendinopathy seen throughout the subscapularis and supraspinatus tendons. No large, focal, discrete rotator cuff tears are identified._Degenerative tearing along the base of the superior labrum._Mild-moderate partial tearing involving the intra-articular portion of the long head of the biceps tendon._Acromioclavicular arthropathy [Interpreted by Faustino Singh MD] PROCEDURE[s]: 11/19/2023: Shoulder-RT SA CSI 07/09/2023: Shoulder-RT SA CSI 12/12/2022: Shoulder-RT SA CSI 03/13/2023: Shoulder-RT SA CSI 12/12/2022: Shoulder-RT SA CSI 09/05/2022: Shoulder-RT SA CSI 05/18/2022: Shoulder-RT SA CSI 02/14/2022: Shoulder-RT SA CSI 09/06/2021: Shoulder-RT SA CSI 03/08/2021: Shoulder-RT SA CSI 10/26/2020: Shoulder-RT SA CSI 03/25/2020: Shoulder-RT SA CSI 12/09/2019: Shoulder-RT SA CSI THERAPY: No recent Neuromusculoskeletal Exam [NMSE]: AOx3 NAD/NVI BUE/BLE active Range Of Motion [AROM]/manual muscle testing [MMT] was within functional limits [WFL] ASSESSMENT: Right Shoulder Pain Right Shoulder Osteoarthritis DISCUSSION[MDM]: -Patient's old records, previous notes, imaging studies were independently reviewed -77-year-old RTC for repeat right subacromial shoulder injection -In accordance with [IAW] AAOS clinical practice guidelines [CPG] Intra- Articular [IA] Corticosteroid Injection [CSI] can be considered as they have been shown to provide short-term relief for symptomatic osteoarthritis._This discussed at length with the patient including risks, complications, benefits and alternatives. wants to proceed with right subacromial shoulder injection -We will also continue with conservative management, activity modification and HEP -RTC 16-17 weeks for interval follow-up PLAN: -See Comments/Recommendations Above. -Patient's old records, previous notes, imaging studies were reviewed -Right shoulder subacromial CSI -XR LT SH -RTC x4 months for reevaluation PROCEDURE:_Right subacromial corticosteroid Injection [CSI] Prior to procedure, the operative/procedure team members verbally confirmed: Correct patient identity (2 identifiers) Correct operation/procedure to be performed Correct operative/procedure site/side Correct consent form Correct position Correct imaging labeled and displayed Correct implant(s) available, if applicable Special equipment available, if applicable Allergies confirmed Medium joints: Injection site prepped per ortho protocol. 2 ml Lidocaine (1%) 2 ml Marcaine (0.25%) 2 ml Kenalog (40 mg/mL) DO DEANNE Alonzo [facility] Dept of Orthopedics Interventional PM&R [Dictated and reviewed but not read with [employer] /es/ LUPE MILES Signed: 03/18/2024 06:56 07/17/2024 ADDENDUM STATUS: COMPLETED PID 07/17/2024 PER 03/21/2025 RECALL ORDER, SWP SCHED DD, #SENIOR PAINTER#WT Date/Time:? SUNDAY? ? ? MAY? ,? 2024? ? 9:00? AM? EASTERN ? Clinic:? ? DEANNE? ORTHO/ATT3/CD /[place]/ SONJA MERCER Advanced Taxicab Coordinator Signed: 07/17/2024 14:41 LUPE MILES-THIERRYD [facility]
--- OUTSIDE RECORDS SUMMARY | 2024-07-24 21:32 | XMS_ITS | Continuity of Care Document ---
Author Organization [facility] Address [address] [address] Care Team Providers Care Armhole Presser Name Role Phone KANU LI Primary Care Provider Assessment No assessment recorded. Plan of Treatment Reminders Order Date Submit Date Provider Last Modified By Organization Details Last Modified Time Details Appointments None recorded . Lab PSA, serum or plasma 025 06/17/19 [facility] (Laboratory), [address] [place], [address], 5 14:12:33 HbA1c (hemoglo bin A1c), blood 025 06/17/[address] [place] [address] (Laboratory), [place], [address], 5 14:20:24 CMP, serum or plasma 025 06/17/[address] [place] [address] (Laboratory), [place], [address], 5 14:13:39 TSH, serum or plasma 025 06/17/[address] [place] [address] (Laboratory), [place], [address], 5 14:12:35 CBC w/ auto diff 025 06/17/[address] [place] [address] (Laboratory), [place], [address], 5 13:27:58 lipid panel, serum 025 06/17/19 25 [facility] (Laboratory), [address], [place], [address], 5 14:13:40 Referral None recorded . Procedures None recorded . Surgeries None recorded . Imaging None recorded . Medication Orders None recorded . Patient TargetsNo targets recorded. Patient InstructionsNo instructions recorded. Reason for Referral None Reported. Problems Name Problem SNOMED Code Status Onset Date Resolution Date Notes Provider Name and Address Organization Details Recorded Time Essential hypertension 84441917 Active 2024 Brooke Pardini null, [place] - [facility] - [place] & [place] 5 10:33:46 Type 2 diabetes mellitus 95204331 Active 2024 Brooke Pardini [place], [place] [facility] [place] 5 10:33:52 Neuropathy 607145965 Active 2024 Brooke Pard[place] [facility] [place] 5 10:34:08 Heart disease 94160405 Active 2024 Brooke Pardini [place], [place] [facility] [place] 5 10:34:56 Hyperlipidemia 65788304 Active 2024 Brooke Pardini null, [place] [facility] [place] 5 10:35:05 Gastroesophage al reflux disease 182718437 Active 2024 Brooke Pardini null, [place] [facility] & [place] 5 10:38:23 Problem Notes None recorded. Procedures Surgical History Date Name Laterality Status Provider Name and Address Organization Details Recorded Time 04/16/19 25 Cardiovascular Surgery completed Brooke Pardini [place] [facility] [place] & [place] 06/16/2024 10:30:47 Other completed Brooke Pardini [place] [facility] [place] 06/16/2024 10:30:47 Cataract Surgery completed Brooke Pardini [place] - [facility] [place] & [place] 06/16/2024 10:36:15 extracorporeal shockwave lithotripsy of calculus of kidney completed Brookelaura Elmore [place] - [place] [facility] & [place] 06/16/2024 10:36:32 [facility] & [place] 06/16/2024 10:36:50 Imaging Results None recorded. Procedure Notes None recorded. Medical Equipment None Reported. Allergies Allergen ID Allergen Name Allergen Category Reaction Reaction Severity Criticality Documentation Date Start Date Code Code System Note Provider Name and Address Organization Details Recorded Time 160531 fosinopri l medicatio n cough Not available [facility] 11/28/2023 38577 RxNorm Brenda Divya esteban [place] [facility] & [place] 4 13:08:40 741706 lisinopri l medicatio n cough Not available [facility] 11/28/2023 25740 [facility] [place] 4 13:08:52 297501 acetamino phen / oxycodone medicatio n vomiting Not available [facility] 11/28/2023 57179 3 RxNorm Brenda Divya esteban, [place] [facility] & [place] 4 13:09:05 Medications Name Sig Start Date [...] Available Not Available Vitals Date Recorded Body height Body mass index (BMI) Body weight Body temperature Oxygen saturation Oxygen saturation in Arterial blood by Pulse oximetry Heart rate Respiratory rate Systolic blood pressure Diastolic blood pressure Provider Name and Address Organization Details Last Updated DateTime 5 177.8 cm 31 kg/m2 18274.9 5 g 97 [degF] 97 % 97 % 86 /min 14 /min 149 mm[Hg] 86 mm[Hg] Brooke Corral [facility] & [place] 10:30:19 Social History Question Answer Notes LastModified by Organizat ion Details LastModified Time Tobacco Smoking Status Never Smoker Brooke Corral [facility] & [place] 06/16/2024 10:30:47 Do You Have An Advance [...] Do You Have A Medical Power Of Manager Inpatient? No Information not available 06/16/2024 What Was [...] Anxious, Or Unable To Sleep At Night)? [id number] Information not available 06/16/2024 Do You Use [...] Condition Response Allergies/Hayfever N Heart Problems N None N Other Y Heart Conditions N Ear or Hearing Problems Y Emphysema N Migraines N Thyroid Problems N Depression N Glaucoma N GI Problems Y Developmental Delay N Anemia N Immune System Disorder N Anesthesia Complications N Heart Attack (HI) N Obstructive Sleep Apnea Y Anxiety Disorder N Diabetes Y Bleeding Disorder N Vision or Eye Problems Y Arthritis N Hearing Loss N Tuberculosis N Congestive Heart Failure (CHF) Y Acid Reflux (GERD) N Hyperlipidemia N Cancer N Stroke N Asthma N Reflux/GERD Y Sleep Disorder N GERD/Reflux N Heart Disease N Fibromyalgia N Headaches N Hypertension Y Speech Delay N Kidney Disease N Past Encounters Encounter ID Performer Location Encounter Start Date Encounter Closed Date Diagnosis/Indication Diagnosis SNOMED-CT Code Diagnosis ICD10 Code Diagnosis Note [id number] Kanu Li MD [facility] [address] [address] 06/16/2024 10:20:52 06/16/2024 10:43:40 Type 2 diabetes mellitus 03796590 E11.9 Patient is currently on metformin as well as Actos will obtain lab work today. Neuropathy 225571756 G62 .9 Patient takes gabapentin . Hyperlipidemia 85179092 E78.5 Will check patient's cholestero l profile today Heart disease 26088936 I 51.9 patient to continue to follow-up with cardiology . Essential hypertension 63796346 I10 Patient controls his blood pressure with metoprolol . Screening for malignant neoplasm of prostate 812902953 Z12.5 Health Concerns Section Related Observation LastModified by Organization Detai ls LastModified Time None Recorded Concern Status LastModified by Organization Details LastModified Time None Recorded Payers Encounter Date Sequence Insurance Name Policy Number Policy Hopson Covered Member ID Hopson Member ID Guarantor Name 06/16/2024 [employer] [facility] [id number] Adelso Mishra [id number] Adelso Mishra 06/16/2024 1 [employer] (MEDICARE REPLACEMENT/ ADVANTAGE - HMO) Adelso Mishra [id number] Adelso Mishra Notes Date Note Type Note Provider Name and Address Organization Details Recorded Time 06/16/2024 text/html Patient presents today to establish care. He has had a recent cardiac event. Had stents placed in his LAD by Dr. Dia kumar at [facility]. He is seeking to establish care with a local physician practice. Kanu Li MD [address] [place] [address], [phone], [facility] & [place] 06/16/2024 11:02:08
--- OUTSIDE RECORDS SUMMARY | 2024-07-24 21:32 | XMS_ITS | Encounter Summary ---
Author Name [facility] Address [address] [place] [id number] Care Team Providers Care Desulfurizer Hand Name Role Phone CYNDI STEINBERG Primary Care [...] PART A Oct 14, 2009 PART A [id number] Alex GALLEGO PATIENT MEDICARE (WNR) MEDICARE (M) PART B Oct 14, 2009 PART B [id number] Alex GALLEGO PATIENT MEDICARE (WNR) MEDICARE (M) PART A Oct 14, 2009 PART A [id number] Alex GALLEGO PATIENT MEDICARE (WNR) MEDICARE (M) PART B Oct 14, 2009 PART B [id number] Alex GALLEGO PATIENT MEDICARE (WNR) MEDICARE (M) PART A Oct 14, 2009 PART A [id number] Alex GALLEGO PATIENT MEDICARE (WNR) MEDICARE (M) PART B Oct 14, 2009 PART B [id number] Alex GALLEGO PATIENT Selected Encounter This section includes the information on record at NH for the Encounter. Date/Time Encounter Type Encounter Description Reason Provider Source Apr 15, 2024 09:00 AM OFFICE O/P EST HI [facility] - IND ICD-10-CM F43.10 Post-traumatic stress disorder, unspecified HERLINDA CAGE Encounter Template Text not used by [place] Assessments - Encounter Diagnoses This section includes the primary and secondary diagnoses documented for the Encounter. Date/Time Primary/Secondary Diagnosis Diagnosis Name Provider Source Apr 15, 2024 10:38 AM PRIMARY Post-traumatic stress disorder, unspecified HERLINDA CAGE [facility] Apr 15, 2024 10:38 AM SECONDARY Insomnia, unspecified HERLINDA CAGE [facility] Plan of Treatment: Future Appointments (+ 6 months) and Future Tests (+/- 45 days) The Plan of Treatment section includes future care activities for the [facility] This section includes future appointments and future [...] 2024 11:35 AM AMBULATORY - MEDICINE [facility] Apr 25, 2024 08:30 AM AMBULATORY - SURGERY [place] [facility] Apr 29, 2024 10:00 AM AMBULATORY - MEDICINE [facility] May 06, 2024 10:00 AM AMBULATORY - PSYCHIATRY [facility] May 07, 2024 10:00 AM AMBULATORY - MEDICINE [facility] May 15, 2024 10:30 AM AMBULATORY - REHAB MEDICIN E [facility] May 20, 2024 08:00 AM [facility] May 20, 2024 10:00 AM AMBULATORY - MEDICINE [facility] May 27, 2024 08:00 AM AM[facility]ULATORY - NONE [place] [facility] Jun 06, 2024 08:00 AM AMBULATORY - SURGERY [facility] Jun 10, 2024 08:50 AM AMBULATORY - MEDICINE [facility] Jun 10, 2024 11:00 AM AMBULATORY - PSYCHIATRY LE [facility]RISTOPHER [facility] Jun 20, 2024 09:00 AM [facility] Jun 24, 2024 08:00 AM [facility] Jun 30, 2024 11:00 AM [facility] Jun 30, 2024 03:00 PM AMBULATORY - MEDICINE [facility] Jul 01, 2024 09:00 AM AMBULATORY - MEDICINE [facility] Jul 07, 2024 10:00 AM [facility] Jul 08, 2024 10:00 AM AMBULATORY - MEDICINE [facility] Jul 10, 2024 08:30 AM AMBULATORY - MEDICINE [facility] Lab Results: +/- 30 days of the [...] May 07, 2024 10:35 AM Reporting Lab: [address] [address] Performing Lab: [address] [address] MAGNESIUM 1.8 mg/dL 1.6-2.6 May 15, 2024 09:46 AM [facility] BNP (STODDARD) PLASMA Specimen Type: PLASMA Comment: BNP results less than or equal to 100 pg/ml are labor representative of normal values in patients without CHF. BNP results greater than 100 pg/ml are considered abnormal and suggestive of CHF. Higher BNP concentrations in the first 72 hours after Acute Coronary Syndrome are associated with an increased risk of , myocardial infarction and CHF. Ordering Provider: CYNDI STEINBERG Report Released Date/Time: May 07, 2024 10:35 AM Reporting Lab: [address] [address] Performing Lab: [facility] [address] [facility] [address] BNP (STODDARD) 29 pg/mL 0-100 May 15, 2024 09:46 AM [facility] PLAS[facility] Specimen Type: PLASM [...] May 07, 2024 10:35 AM Reporting Lab: [place] [address] Performing Lab: [address] [address] CREATININE 1.54 mg/dL H 0.72-1.25 UREA NITROGEN 20 mg/dL 9-25 GLUCOSE 151 mg/dL H 74-100 SODIUM 140 mmol/L 136-145 POTASSIUM 4.0 mmol/L 3.5-5.1 CHLORIDE 104 mmol/L 98-107 CO2 28 mmol/L 22-29 CALCIUM 9.7 mg/dL 8.4-10.2 ANION GAP 8 meq/L 3-19 eGFR (CKD-EPI) 46 Apr 29, 2024 10:55 AM [facility] URINALYSIS URINE Specimen Type : URINE Comment: Microscopic not indicated Ordering Provider: ERIK KIM Report Released Date/Time: Apr 16, 2024 01:19 PM Reporting Lab: [address] [address] Performing Lab: [address] [address] URINE COLOR Colorless Colorless-Yellow APPEARANCE Clear Clear UROBILINOGEN Normal mg/dL Normal URINE BLOOD Negative Negative URINE BILIRUBIN Negative Negative URINE KETONES Negative mg/dL Negative URINE PROTEIN Negative mg/dL Negative-Tr john URINE PH 7.0 4.5-8.0 URINE NITRITE Negative Negative URINE LEUKOCYTE EST Negative Negative SPECIFIC GRAVITY 1.005 1.005-1.030 URINE GLUCOSE Negative mg/dL Negative Apr 29, 2024 10:49 AM [facility] LACTIC ACID PLASMA Specimen Type : PLASMA Comment: ~2 hours from now Ordering Provider: ERIK KIM Report Released Date/Time: Apr 16, 2024 01:19 PM Reporting Lab: [address] [address] Performing Lab: [address] [address] LACTIC ACID 1.4 mmol/L 0.5-2.2 Apr 29, 2024 10:49 AM [facility] HIGH SENSITIVITY TROPONIN I PLASMA [...] Apr 16, 2024 01:19 PM Reporting Lab: [address] [address] Performing Lab: [address] [address] HIGH SENSITIVITY TROPONIN I <4 4-35 Apr 29, 2024 10:49 AM [facility] MAGNESIUM PLASMA Specimen Type: PLASM A Comment: [...] Apr 29, 2024 10:33 AM Reporting Lab: [address] [address] Performing Lab: [address] [address] MAGNESIUM 1.7 mg/dL 1.6-2.6 Apr 29, 2024 10:49 AM [facility] Specimen Type: PLASM [...] Apr 29, 2024 10:33 AM Reporting Lab: [address] [address] Performing Lab: [address] [address] CREATININE 1.35 mg/dL H 0.72-1.25 UREA NITROGEN 11 mg/dL 9-25 GLUCOSE 114 mg/dL H 74-100 SODIUM 141 mmol/L 136-145 POTASSIUM 4.2 mmol/L 3.5-5.1 CHLORIDE 105 mmol/L 98-107 CO2 29 mmol/L 22-29 CALCIUM 9.7 mg/dL 8.4-10.2 ANION GAP 7 meq/L 3-19 eGFR (CKD-EPI) 53 Apr 16, 2024 01:17 PM [facility] COVID-19 AND FLU/RSV DIAGNOSTIC PANEL [...] Food and Drug Administration's Emergency Use Authorization. Rare Pink Genexpert (596) Ordering Provider: ERIK KIM Report Released Date/Time: Apr 16, 2024 01:13 PM Reporting Lab: [address] [address] Performing Lab: [address] [address] COVID-19 PCR (FLUVID) Negative Negative FLU A PCR (FLUVID) Negative Negative FLU B PCR (FLUVID) Negative Negative RSV PCR (FLUVID) Negative Negative Apr 16, 2024 12:08 PM [facility] LACTIC ACID PLASMA Specimen Type : PLASMA No comment entered. Ordering Provider: ERIK KIM Report Released Date/Time: Apr 16, 2024 01:19 PM Reporting Lab: [address] [address] Performing Lab: [address] [address] LACTIC ACID 2.8 mmol/L H 0.5-2.2 Apr 16, 2024 12:08 PM [facility] PROTHROMBIN TIME PLASMA Specimen Ty pe: PLASMA No comment entered. Ordering Provider: ERIK KIM Report Released Date/Time: Apr 16, 2024 01:19 PM Reporting Lab: [address] [address] Performing Lab: [address] [address] PT PATIENT 13.2 s 11.7-14.4 INTERNATIONAL NORMALIZED RATIO 1.02 0 .87-1.14 Apr 16, 2024 12:08 PM [facility] PHOSPHORUS PLASMA Specimen Type: PLASM [...] I information resource can be reached in [facility] in the Tools menu, under the Education [...] Apr 16, 2024 01:19 PM Reporting Lab: [address] [address] Performing Lab: [address] [address] PHOSPHORUS 2.5 mg/dL 2.3-4.7 Apr 16, 2024 12:08 PM [facility] MAGNESIUM PLASMA Specimen Type: PLASM [...] I information resource can be reached in [facility] in the Tools menu, under the [...] Apr 16, 2024 01:19 PM Reporting Lab: [address] [address] Performing Lab: [address] [address] MAGNESIUM 1.5 mg/dL L 1.6-2.6 Apr 16, 2024 12:08 PM [facility] CK TOTAL PLASMA Specimen Type: [...] Apr 16, 2024 01:19 PM Reporting Lab: [address] [address] Performing Lab: [address] [address] CK TOTAL 64 U/L 30-200 Apr 16, 2024 12:08 PM [facility] HIGH SENSITIVITY TROPONIN I PLASMA [...] Apr 16, 2024 01:19 PM Reporting Lab: [address] [address] Performing Lab: [address] [address] HIGH SENSITIVITY TROPONIN I <4 4-35 Apr 16, 2024 12:08 PM [facility] BNP (STODDARD) PLASMA Specimen Type : PLASMA Comment: BNP results less than or equal to 100 pg/ml are labor representative of normal values in patients without CHF. BNP results greater than 100 pg/ml are considered abnormal and suggestive of CHF. Higher BNP concentrations in the first 72 hours after Acute Coronary Syndrome are associated with an increased risk of , myocardial infarction and CHF. Ordering Provider: ERIK KIM Report Released Date/Time: Apr 16, 2024 01:38 PM Reporting Lab: [address] [address] Performing Lab: [address] [address] BNP (STODDARD) <10 pg/mL 0-100 Apr 16, 2024 12:08 PM [facility] AUTOMATED DIFF BLOOD Specimen Type : BLOOD Comment: ~STAT Ordering Provider: ERIK KIM Report Released Date/Time: Apr 16, 2024 01:19 PM Reporting Lab: [address] [address] Performing Lab: [address] [address] A-LYMPH % 14.8 L 24.0-44.0 A-MONO % 4.7 0.1-6.0 A-GRAN % 79.5 H 42.0-75.0 A-LYMPH # 0.94 10*3/uL L 1.20-3.40 A-MONO # 0.30 10*3/uL 0.00-0.60 A-GRAN # 5.07 10*3/uL 1.40-6.50 A-BASO % 0.2 0.0-3.0 A-BASO # 0.01 10*3/uL 0.00-0.20 A-EOS % 0.3 0.0-10.0 A-EOS # 0.02 10*3/uL 0.00-0.70 A-IG % 0.5 0.0-0.5 A-IG # 0.03 10*3/uL 0.00-0.06 Apr 16, 2024 12:08 PM [facility] CBC/PLT BLOOD Specimen Type: BLOOD Comment: ~STAT Ordering Provider: ERIK KIM Report Released Date/Time: Apr 16, 2024 01:19 PM Reporting Lab: [address] [address] Performing Lab: [address] [address] WBC 6.4 10*3/uL 5.0-10.0 RBC 5.02 10*6/uL 4.6-6.2 HGB 15.0 g/dL 14.0-18.0 HCT 44.3 42.0-52.0 MCV 88.2 fL 80.0-94.0 MCH 29.9 pg 27.0-31.0 MCHC 33.9 g/dL 32.0-36.0 PLT 208 10*3/uL 150-450 MPV 11.1 fL 9.0-13.1 RDW 14.1 11.0-16.0 NRBC 0.0 0.0-0.0 Apr 16, 2024 12:08 PM [facility] PANEL 5 PLASMA Specimen Type: [...] I information resource can be reached in [facility] in the Tools menu, under the Education [...] Apr 16, 2024 01:19 PM Reporting Lab: [address] [address] Performing Lab: [address] [address] CREATININE 1.48 mg/dL H 0.72-1.25 UREA NITROGEN [...] and tobacco- related health factors from the NH facility where the Encounter took place. Current Smoking Status This section includes the most current smoking, or tobacco-related health factor, from the NH facility where the Encounter took place. Date/Time Current Smoking Status Comment Facil ity Feb 14, 2024 08:30 AM VA-TOBACCO FORMER USER [facility] Tobacco Use History This section includes a history of the smoking, or tobacco-related health factors, that were collected on or before the date of the Encounter. The data comes from the NH facility where the Encounter took place. Date/Time Smoking Status/Tobacco Use Comment Ramu harrington Feb 14, 2024 08:30 AM VA-TOBACCO QUIT 15 YRS OR MORE [facility] Jan 10, 2023 11:00 AM VA-TOBACCO NEVER USED [facility] Dec 09, 2021 08:00 AM VA-TOBACCO NEVER USED [facility] Dec 10, 2020 09:30 AM VA-TOBACCO NEVER USED [facility] May 13, 2019 09:09 AM VA-TOBACCO NEVER USED [facility] Apr 03, 2018 09:45 AM VA-TOBACCO NEVER USED [facility] May 07, 2017 10:31 AM V9 LIFETIME NON-USER OF TOBACCO [facility] Apr 06, 2016 10:18 AM V9 LIFETIME NON-USER OF TOBACCO [facility] Jan 26, 2015 08:52 AM V9 LIFETIME NON-USER OF TOBACCO [facility] August 18, 2013 08:27 AM V9 LIFETIME NON-USER OF TOBACCO [facility] Sep 18, 2012 08:39 AM V9 LIFETIME NON-USER OF TOBACCO [facility] Jan 19, 2012 10:42 AM V9 LIFETIME NON-USER OF TOBACCO [facility] Jan 19, 2012 10:42 AM V9 TOBACCO OFFERED [facility] September 13, 2010 10:28 AM V9 LIFETIME NON-USER OF TOBACCO [facility] September 13, 2010 10:28 AM V9 TOBACCO OFFERED [facility] Sep 21, 2006 12:59 PM V9 LIFETIME NON-USER OF TOBACCO [facility] Jan 29, 2006 07:52 AM HF V9 LIFETIME NON-SMOKER [facility] Dec 30, 2004 08:05 AM HF V9 LIFETIME NON-SMOKER [facility] Dec 23, 2003 02:58 PM HF V9 LIFETIME NON-SMOKER [facility] Radiology Reports: +/- 30 days of the [...] the Encounter. The data comes from all [place] treatment facilities. Date/Time Radiology Report Provider Source May 15, 2024 09:57 AM CHEST TWO(2) VIEW PA&LAT: ERIK GALLEGO [id number] -1945 M Exm Date: MAY 15, 2024@09:57 Req Phys: CYNDI STEINBERG Loc: [facility] PACT PHONE LULU (Req'g Img Loc: [facility] RADIOLOGY Service: [place] [address] (Case [id number] COMPLETE)CHEST TWO(2) VIEW PA&LAT (RAD Detailed) CPT:15777 Reason for Study: dyspnea Clinical History: Report Status: Verified Date Reported: MAY 17, 2024 Date Verified: MAY 17, 2024 Flash Ranging Crewmember E-Sig: Report: CHEST TWO(2) VIEW PA&LAT, 05/15/2024 10:02 AM EST INDICATION: dyspnea COMPARISON: April 16, 2024 Impression: Calcified granuloma right lung apex. No edema or pneumonia. No pleural effusion or pneumothorax. Heart size normal. No acute osseous abnormality. Primary Diagnostic Code: NO ALERT REQUIRED Primary Interpreting Staff: KAILYN STEELE, Staff Physician Verified by cruller maker machine for KAILYN STEELE /KAILYN AVILES [facility] Apr 16, 2024 01:47 PM SHOULDER-LEFT 2 OR MORE VIEWS: ERIK GALLEGO [id number] -1945 M Exm Date: APR 16, 2024@13:47 Req Phys: LUPE MILES Loc: [facility] ORTHO/ATT3/CD (Req'g Loc) Img Loc: [facility] RADIOLOGY Service: [place] [address] (Case [id number] COMPLETE) SHOULDER-LEFT 2 OR MORE VIEWS (RAD Detailed) CPT:11341 Reason for Study: LEFT SHOULDER PAIN Clinical History: Report Status: Verified Date Reported: APR 17, 2024 Date Verified: APR 17, 2024 Flash Ranging Crewmember E-Sig: Report: SHOULDER-LEFT 2 OR MORE VIEWS, 04/16/2024 3:06 PM EST INDICATION: LEFT SHOULDER PAIN COMPARISON: None Impression: No acute fracture or malalignment. Mild glenohumeral and AC joint degenerative change. Primary Diagnostic Code: NO ALERT REQUIRED Primary Interpreting Staff: ALFONZO STEELE, Staff Physician Verified by cruller maker machine for ALFONZO STEELE /ALFONZO DEGRO[facility] Apr 16, 2024 01:47 PM CHEST SINGLE(1) VIEW: ERIK GALLEGO [id number] -1945 M Exm Date: APR 16, 2024@13:47 Req Phys: JUDYERIKMEGHAN Landry Loc: ED/7A-4PM (Req'g Loc) Img Loc: [facility] RADIOLOGY Service: [place] [address] (Case [id number] COMPLETE) CHEST SINGLE(1) VIEW (RAD Detailed) CPT:05844 Proc Modifiers : PORTABLE EXAM Reason for Study: WEAKNESS, COUGH Clinical History: Report Status: Verified Date Reported: APR 17, 2024 Date Verified: APR 17, 2024 Flash Ranging Crewmember E-Sig: Report: CHEST SINGLE(1) VIEW, 04/16/2024 3:06 PM EST INDICATION: WEAKNESS, COUGH COMPARISON: February 10, 2023 FINDINGS: Support apparatus: None. Heart/Mediastinum: Normal size and contours. Lungs/Pleura: Patchy basilar opacities. No pleural effusion or pneumothorax. Upper abdomen: Unremarkable. Bones/Soft tissues: No acute abnormality. Impression: Bibasilar atelectasis or infiltration. Primary Diagnostic Code: SIGNIFICANT ABNORMALITY, ATTN NEEDED Primary Interpreting Staff: ALFONZO STEELE, Staff Physician Verified by cruller maker machine for ALFONZO STEELE /[facility] Encounter Notes: All associated encounter notes This section contains the clinical notes associated to the Encounter. Date/Time Encounter Note(s) Provider Source Apr 15, 2024 09:00 AM ADMINISTRATIVE NOT E: LOCAL TITLE: ESSENTIAL MEDICATIONS LIST FOR REVIEW (EMLR) STANDARD TITLE: ADMINISTRATIVE NOTE DATE OF NOTE: APR 15, 2024@09:00 ENTRY DATE: APR 15, 2024@10:50:46 AUTHOR: HERLINDA CAGE COSIGNER: URGENCY: STATUS: COMPLETED Active and Recently Outpatient Medications (excluding Supplies): Active Outpatient Medications Status 1) ACCU-CHEK [...] FOR PAIN Indication: FOR NERVE PAIN 9) HCTZ 12.5MG/LOSARTAN 100MG TAB TAKE 1 TABLET BY MOUTH DAILY ACTIVE (S) Indication: FOR BLOOD PRESSURE/HEART 10) LIDOCAINE 5% 5IN X 6IN PATCH APPLY 2 PATCHES TO SKIN DAILY ACTIVE -LEAVE ON 12 HOURS, THEN REMOVE FOR 12 HOURS Indication: FOR PAIN 11) LORATADINE 10MG TAB TAKE ONE TABLET BY MOUTH DAILY FOR ACTIVE (S) ALLERGIES 12) METFORMIN HCL 1000MG TAB TAKE ONE TABLET BY MOUTH TWICE A ACTIVE (S) DAY FOR DIABETES 13) MIRTAZAPINE 15MG TAB TAKE ONE-HALF TABLET BY MOUTH AT ACTIVE BEDTIME Indication: FOR SLEEP 14) MUPIROCIN 2% OINT APPLY SMALL AMOUNT TO AFFECTED AREA DAILY ACTIVE -APPLY DAILY TO TREATMENT SITES AFTER CLEANING. THIS IS A TOPICAL ANTIBIOTIC. Indication: TO PREVENT INFECTION 15) PANTOPRAZOLE NA 40MG EC TAB TAKE ONE TABLET BY MOUTH TWICE A ACTIVE DAY 30 MINUTES BEFORE A MEAL -TAKE ON AN EMPTY STOMACH. Indication: FOR STOMACH 16) PIOGLITAZONE HCL 30MG TAB TAKE ONE TABLET BY MOUTH DAILY FOR ACTIVE (S) DIABETES Indication: FOR BLOOD SUGAR 17) PRAZOSIN HCL 5MG CAP TAKE ONE CAPSULE BY MOUTH AT BEDTIME ACTIVE Indication: FOR NIGHTMARES 18) SERTRALINE HCL 100MG TAB TAKE ONE AND ONE-HALF TABLETS BY ACTIVE MOUTH EVERY MORNING Indication: FOR MOOD 19) TRIAMCINOLONE ACETONIDE 0.1% OINT APPLY SMALL AMOUNT TO ACTIVE AFFECTED AREA TWICE A DAY Indication: FOR SKIN RASH Pending Outpatient Medications Status 1) MIRTAZAPINE 15MG TAB TAKE ONE-HALF TABLET BY MOUTH AT PENDING BEDTIME Indication: FOR SLEEP 2) PRAZOSIN HCL 1MG CAP TAKE ONE CAPSULE BY MOUTH AT BEDTIME PENDING Indication: FOR NIGHTMARES 3) PRAZOSIN HCL 5MG CAP TAKE ONE CAPSULE BY MOUTH AT BEDTIME PENDING Indication: FOR NIGHTMARES 4) SERTRALINE HCL 100MG TAB TAKE ONE AND ONE-HALF TABLETS BY PENDING MOUTH EVERY MORNING Indication: FOR MOOD Inactive Outpatient Medications Status 1) CEFUROXIME AXETIL [...] EVERY 6 HOURS NEEDED Indication: FOR PAIN 28 Total Medications Allergies: local and remote LISINOPRIL, FOSINOPRIL, PERCOCET No Remote Allergy/ADR Data available for this patient Review of medications include: Patient allergies (Remote and Local) and active and pending prescriptions dispensed from this NH (local) and dispensed from another NH or [facility] facility (remote and pending) as well as local inpatient orders (pending and active) and clinic medications (IMOs), locally documented non-VA medications and local prescriptions that have or been discontinued in the past 90 days. With the exception of Allergies, if a category is not listed below, it means there were no relevant medications for the patient. MRT5-Local & Remote Allergies Inpatient Active/Pending: No local medications found. No remote medications found. Outpatient Active/Pending: ALOH 160/MG CARB 105MG CHEW TAB Directions: [...] Filled: 03/16/24 Expires: 02/14/25 Refills: 3 Status: ACTIVE GABAPENTIN 300MG CAP Directions: TAKE ONE CAPSULE BY MOUTH EVERY MORNING AND TAKE ONE CAPSULE AT NOON AND TAKE TWO CAPSULES EVERY EVENING FOR PAIN Quantity: 120 for 30 days Issued: 02/14/24 Filled: 03/15/24 Expires: 02/14/25 Refills: 1 Status: ACTIVE LIDOCAINE 5% 5IN X 6IN PATCH Directions: APPLY 2 PATCHES TO SKIN DAILY FOR PAIN -LEAVE ON 12 HOURS, THEN REMOVE FOR 12 HOURS Quantity: 60 for 30 days Issued: 02/14/24 Filled: 03/13/24 Expires: 02/14/25 Refills: 10 Status: ACTIVE MIRTAZAPINE 15MG TAB Directions: TAKE ONE-HALF TABLET BY MOUTH AT BEDTIME FOR SLEEP Quantity: 45 for 90 days Issued: 12/27/23 Filled: 04/13/24 Expires: 12/27/24 Refills: 0 Status: ACTIVE MUPIROCIN 2% OINT Directions: APPLY [...] Filled: 04/13/24 Expires: 12/27/24 Refills: 0 Status: ACTIVE SERTRALINE HCL 100MG TAB Directions: TAKE ONE AND ONE-HALF TABLETS BY MOUTH EVERY MORNING FOR MOOD Quantity: 135 for 90 days Issued: 12/27/23 Filled: 03/26/24 Expires: 12/27/24 Refills: 0 Status: ACTIVE TRIAMCINOLONE ACETONIDE 0.1% [...] 05/26/24 Expires: 02/14/25 Refills: 2 Status: ACTIVE/SUSP DICLOFENAC [...] 05/26/24 Expires: 02/14/25 Refills: 2 Status: ACTIVE/SUSP HCTZ 12.5MG/LOSARTAN 100MG TAB Directions: TAKE 1 TABLET BY MOUTH DAILY FOR BLOOD PRESSURE/HEART Quantity: 90 for 90 days Issued: 02/14/24 Filled: 06/03/24 Expires: 02/14/25 Refills: 2 Status: ACTIVE/SUSP LORATADINE 10MG TAB Directions: TAKE ONE TABLET BY MOUTH DAILY FOR ALLERGIES Quantity: 90 for 90 days Issued: 02/14/24 Filled: 06/03/24 Expires: 02/14/25 Refills: 2 Status: ACTIVE/SUSP METFORMIN HCL 1000MG TAB Directions: TAKE ONE TABLET BY MOUTH TWICE A DAY FOR DIABETES Quantity: 180 for 90 days Issued: 02/14/24 Filled: 05/26/24 Expires: 02/14/25 Refills: 2 Status: ACTIVE/SUSP PIOGLITAZONE HCL 30MG TAB Directions: TAKE ONE TABLET BY MOUTH DAILY FOR DIABETES Quantity: 90 for 90 days Issued: 02/14/24 Filled: 05/28/24 Expires: 02/14/25 Refills: 2 Status: ACTIVE/SUSP No remote medications found. MIRTAZAPINE 15MG TAB Directions: TAKE ONE-HALF TABLET BY MOUTH AT BEDTIME Quantity: 45 Special: TAKE ONE-HALF TABLET PO QHS Status: PENDING PRAZOSIN HCL 1MG CAP Directions: TAKE ONE CAPSULE BY MOUTH AT BEDTIME Quantity: 90 Special: TAKE ONE CAPSULE PO QHS Status: PENDING PRAZOSIN HCL 5MG CAP Directions: TAKE ONE CAPSULE BY MOUTH AT BEDTIME Quantity: 90 Special: TAKE ONE CAPSULE PO QHS Status: PENDING SERTRALINE HCL 100MG TAB Directions: TAKE ONE AND ONE-HALF TABLETS BY MOUTH EVERY MORNING Quantity: 135 Special: TAKE ONE AND ONE-HALF TABLETS PO QAM Status: PENDING No remote medications found. Inpatient Nonva Medications: No local medications found. Inpatient : No local medications found. No remote medications found. Inpatient Discontinued: No local medications found. No remote medications found. /[place]/ Herlinda Cage APRN, PMHNP- DIRECTOR PERSONAL Signed: 04/15/2024 10:[address] [facility] Apr 15, 2024 09:00 AM MENTAL HEALTH E & M NOTE: LOCAL TITLE: MHC E&M WITH PSYCHOTHERAPY STANDARD TITLE: MENTAL HEALTH E & M NOTE DATE OF NOTE: APR 15, 2024@09:00 ENTRY DATE: APR 15, 2024@10:16:55 AUTHOR: HERLINDA CAGE EXP COSIGNER: URGENCY: STATUS: COMPLETED MHC E&M WITH PSYCHOTHERAPY Has ADDENDA PATIENT NAME: ERIK GALLEGO PATIENT RACE: WHITE PATIENT SEX: MALE PATIENT AGE: 78 MARITAL STATUS:MARITAL STATUS - [place] RATING: SERVICE CONNECTED % - 80 Date of Service (if earlier than date of documentation): Is the patient seen via [facility]? No PSYCHOTHERAPY SECTION SUMMARY OF PSYCHOTHERAPY: Supportive, coping skills 35 (minutes) Time spent during this session exclusively on psychotherapy CHIEF COMPLAINT: Med consult PTSD, insomnia INTERVAL HISTORY: is a 78-year-old male with a history of PTSD and insomnia who seen today for medication follow-up. Reports he has noticed an increase in nightmares as of late, most focused on children in [place]. Reports these have been waking him up much more often. States still compliant with CPAP and we have discussed the importance of this for both physical and mental health. Reviewed sleep hygiene, and reports he only watches the news in the morning and does not watch or read anything triggering in the hours before bed. He is interested in increasing prazosin slightly, and he is agreeable to monitor blood pressure for hypotension, maintain hydration, and use caution for dizziness, sedation, falls, position changes. Reports some anxiety regarding upcoming changes in life, such as his granddaughter finishing nursing school in August and moving out with her fianc??. Expressed relief that holidays are over, as they are difficult for him since the loss of his . Reviewed coping skills and provided support and encouragement. Reviewed risks, SE, FDA guidelines and warnings, alternatives for meds, also hypotension and off label use for prazosin, hyperlipidemia and sedation with Remeron, serotonin syndrome, antiplatelet effect, hyponatremia, SI and worsening mood associated with antidepressants and gave informed consent. Agrees to inform all provider of all meds and to use caution for dizziness, falls, sedation, confusion, driving. Agrees to take meds only as directed. Reviewed risks of combining rx meds with OTC meds, substances, or ETOH. Agrees to monitor mood carefully and report and med SE, concerns, or problems to staff immediately. 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 Has had several friends and family members pass away as well over the past few years and this has been difficult. Good relationship with son, daughter, 2 granddaughters, and grandson. Grandson and his are having a baby in 2024 which will be named after him. Daughter moved in to help take care of his during her cancer and is a retired nurse. He and raised his granddaughter as his daughter was in an abusive relationship. Granddaughter is getting ready to finish nursing school and is engaged and will be moving out soon son is a data analysis intern. Reports supportive relationship with family. Also has a group of friends who are mostly [place] veterans as well that he meets for coffee daily and they are supportive of one another. Enjoys fishing and takes several long weekend trips per year to [facility]. PAIN ASSESSMENT: Pain is managed by primary care MEDICATION RECONCILIATION: I have reviewed all prescriptions and non-VA medications with the patient and/or caregiver. I have documented and addressed any discrepancies within the Meds tab. Patient verbalized understanding. Active and Recently Outpatient Medications (including Supplies): [...] FOR PAIN Indication: FOR NERVE PAIN 9) HCTZ 12.5MG/LOSARTAN 100MG TAB TAKE 1 TABLET BY MOUTH DAILY ACTIVE (S) Indication: FOR BLOOD PRESSURE/HEART 10) LIDOCAINE 5% 5IN X 6IN PATCH APPLY 2 PATCHES TO SKIN DAILY ACTIVE -LEAVE ON 12 HOURS, THEN REMOVE FOR 12 HOURS Indication: FOR PAIN 11) LORATADINE 10MG TAB TAKE ONE TABLET BY MOUTH DAILY FOR ACTIVE (S) ALLERGIES 12) METFORMIN HCL 1000MG TAB TAKE ONE TABLET BY MOUTH TWICE A ACTIVE (S) DAY FOR DIABETES 13) MIRTAZAPINE 15MG TAB TAKE ONE-HALF TABLET BY MOUTH AT ACTIVE BEDTIME Indication: FOR SLEEP 14) MUPIROCIN 2% OINT APPLY SMALL AMOUNT TO AFFECTED AREA DAILY ACTIVE -APPLY DAILY TO TREATMENT SITES AFTER CLEANING. THIS IS A TOPICAL ANTIBIOTIC. Indication: TO PREVENT INFECTION 15) PANTOPRAZOLE NA 40MG EC TAB TAKE ONE TABLET BY MOUTH TWICE A ACTIVE DAY 30 MINUTES BEFORE A MEAL -TAKE ON AN EMPTY STOMACH. Indication: FOR STOMACH 16) PIOGLITAZONE HCL 30MG TAB TAKE ONE TABLET BY MOUTH DAILY FOR ACTIVE (S) DIABETES Indication: FOR BLOOD SUGAR 17) PRAZOSIN HCL 5MG CAP TAKE ONE CAPSULE BY MOUTH AT BEDTIME ACTIVE Indication: FOR NIGHTMARES 18) SERTRALINE HCL 100MG TAB TAKE ONE AND ONE-HALF TABLETS BY ACTIVE MOUTH EVERY MORNING Indication: FOR MOOD 19) TRIAMCINOLONE ACETONIDE 0.1% OINT APPLY SMALL AMOUNT TO ACTIVE AFFECTED AREA TWICE A DAY Indication: FOR SKIN RASH Pending Outpatient Medications Status 1) MIRTAZAPINE 15MG TAB TAKE ONE-HALF TABLET BY MOUTH AT PENDING BEDTIME Indication: FOR SLEEP 2) PRAZOSIN HCL 1MG CAP TAKE ONE CAPSULE BY MOUTH AT BEDTIME PENDING Indication: FOR NIGHTMARES 3) PRAZOSIN HCL 5MG CAP TAKE ONE CAPSULE BY MOUTH AT BEDTIME PENDING Indication: FOR NIGHTMARES 4) SERTRALINE HCL 100MG TAB TAKE ONE AND ONE-HALF TABLETS BY PENDING MOUTH EVERY MORNING Indication: FOR MOOD Inactive Outpatient Medications Status 1) CEFUROXIME AXETIL [...] EVERY 6 HOURS NEEDED Indication: FOR PAIN 28 Total Medications Allergies: local and remote LISINOPRIL, FOSINOPRIL, PERCOCET No Remote Allergy/ADR Data available for this patient PAST MEDICAL HISTORY: Active problems - Computerized [...] bronchus, and lung 10. Osteoarthritis (SNOMED CT 374647555) 11. Gastro-esophageal reflux disease with esophagitis (SNOMED CT 407086677) 12. Allergic rhinitis * 13. Hypertension (SNOMED CT 43422843) 14. Diabetes mellitus (SNOMED CT 88774662) 15. NEPHROLITHIASIS 16. Gout * VITAL SIGNS: TEMP: No values within 24 hours BLOOD PRESSURE: No values within 24 hours RESPIRATIONS: No values within 24 hours PULSE: No values within 24 hours 70 in [177.8 cm] (01/22/2024 11:17) WEIGHT: No values within 24 hours MENTAL STATUS EXAM: Appearance: No acute distress, Well kempt Orientation/Alertness: Oriented to person, place, and time Attitude: Cooperative Behavior: Calm Speech: Normal in tone, rate, volume and amount Mood: Anxious Affect: Stable, Congruent to mood Thought Process: Linear, Organized, Goal directed Thought Content: Appropriate to mood and circumstances Denies Hallucinations: Denies Homicide: Denies Memory: normal Attention/Concentration: Intact Insight: Shows awareness of self and problems Judgment: Normal Capacity to make treatment decisions and engage in treatment planning: Intact Labs: Recent laboratory reports on the chart were reviewed and pertinent abnormalities were noted and considered. CBC/PLT, BLOOD - Partial Panel found WBC , BLOOD, 02/14/24@1019 6.7 K/cmm (5.0 - 10.0) RBC, BLOOD, 02/14/24@1019 5.17 M/cmm (4.6 - 6.2) HGB, BLOOD, 02/14/241019 15.8 g/dL (14.0 - 18.0) HCT, BLOOD, 02/14/24@1019 47.1 % (42.0 - 52.0) MCV, BLOOD, 02/14/241019 91.1 fL (80.0 - 94.0) MCH, BLOOD, 02/14/241019 30.6 pg (27.0 - 31.0) MCHC, BLOOD, 02/14/24@1019 33.5 g/dL (32.0 - 36.0) RDW, BLOOD, 02/14/241019 14.4 % (11.0 - 16.0) PLT, BLOOD, 02/14/241019 257 K/cmm (150 - 450) MPV, BLOOD, 02/14/241019 10.5 fL (9.0 - 13.1) NRBC, BLOOD, 02/14/241019 0.0 % (0.0 - 0.0) PANEL 1 Danyell. date GLUCOSE BUN CREAT SODIUM K CHLOR CO2 02/14/24 10:19 142 H 19 1.38 H 142 4.7 103 29 Collection DT Specimen Test Name Result Units Ref Range 02/14/2024 10:19 PLASMA!! eGFR (CKD-EPI) 52 SEE EVAL !! Indicates COMMENTS AVAILABLE...Refer to Interim Lab Report. PANEL 2 Danyell. date TOT PRO ALBUMIN SGOT SGPT Z ALK PHZ DIRECTZ TOTAL 02/14/24 10:19 7.5 4.6 24 22 75 1.3 H Collection DT Specimen Test Name Result Units Ref Range 02/14/2024 10:19 BLOOD HGB 15.8 g/dL 14.0 - 18.0 Lipid Panel: Collection DT Specimen Test Name Result Units Ref Range 02/14/2024 10:19 PLASMA!! CHOLESTEROL 161 mg/dL 0 - 199 02/14/2024 10:19 PLASMA!! TRIGLYCERIDE 84 mg/dL 0 - 149 02/14/2024 10:19 PLASMA!! HDL CHOLESTEROL 54 mg/dL 40 - 69 02/14/2024 10:19 PLASMA!! DIRECT LDL CHOL. 95 mg/dL 0 - 100 !! Indicates COMMENTS AVAILABLE...Refer to Interim Lab Report. [place]: ____ Valproic Acid: ____ Drugs of Abuse Danyell. daZ OPIATEZ TETRAHZ AMPHETZ BARBITZ BENZODZ COCAIN 02/14/24 10:41 NEG NEG NEG NEG NEG NEG SUICIDE RISK ASSESSMENT: C-SSRS Screening [place]-Suicide Severity Rating Scale (C-SSRS Screener) 1. Over [...] required due to responses to other questions. DSM5 Diagnosis: PTSD, insomnia TREATMENT GOALS: Maintain stability of PTSD symptoms, improved sleep quality and duration TREATMENT PLAN: Continue Zoloft 150 mg daily for mood, continue mirtazapine 7.5 mg at bedtime for mood and sleep, trial increasing prazosin to 6 mg at bedtime for nightmares and monitor blood pressure for hypotension. Continue therapy sessions. Potential risks, adverse side effects, benefits, and alternatives pertaining to the above treatment plan were reviewed with the patient, who verbalized understanding and provided consent. Patient was instructed to return to clinic or call during regular business hours with any problems or questions and clinic phone numbers were provided. Patient was also advised to present to the nearest emergency room, the [facility] ER, or to call 911 should they experience acute suicidal or homicidal ideation or their medical condition rapidly deteriorate. Patient was also provided with the telephone number for the National Suicide Hotline. DISPOSITION: Follow-up approximately 3 months 45 (minutes) Time spent face to face performing medically appropriate exam or evaluation 5 (minutes) Time spent documenting clinical information in the health record 50 (minutes) Total time spent for today's visit The following activities were performed: Preparing to see the patient such as review of tests, x-rays, labs, JASMINE (Specify test reviewed) Labs Obtaining and or review a separately obtained history Counseling and educating the patient/family/caregiver Ordering medications, tests, or procedures (Specify what tests are ordered) Meds /[place]/ Herlinda Cage APRN, PMHNP- DIRECTOR PERSONAL Signed: 04/15/2024 10:38 06/23/2024 ADDENDUM STATUS: COMPLETED Dennis Glass Aprn#3 Ld 06/26/2024@09:30 Patient calling to reschedule above and gave warm hand off /[place]/ MICHELLE FORBES [employer] Signed: 06/23/2024 10:52 HERLINDA CAGE [facility]
--- OUTSIDE RECORDS SUMMARY | 2024-07-24 21:32 | XMS_ITS | Encounter Summary ---
Author Name [facility] [place] [facility] [place] [facility] [place] [facility] [place] Address [address] [place] [address] Care Team Providers Care Walking Dragline Operator Name Role Phone CYNDI STEINBERG Primary Care [...] PART A Oct 14, 2009 PART A [id number] Alex GALLEGO PATIENT MEDICARE (WNR) MEDICARE (M) PART B Oct 14, 2009 PART B [id number] [phone] Alex GALLEGO PATIENT MEDICARE (WNR) MEDICARE (M) PART A Oct 14, 2009 PART A [id number] Alex GALLEGO PATIENT MEDICARE (WNR) MEDICARE (M) PART B Oct 14, 2009 PART B [id number] Alex GALLEGO PILLOMEGHAN PATIENT MEDICARE (WNR) MEDICARE (M) PART B Oct 14, 2009 PART B [id number] Alex GALLEGO PATIENT MEDICARE (WNR) MEDICARE (M) PART A Oct 14, 2009 PART A [id number] Alex GALLEGO PATIENT Selected Encounter This section includes the information on record at [place] for the Encounter. Date/Time Encounter Type Encounter Description Reason Pro vider Source May 27, 2024 09:19 AM Outpatient Encounter EVENT (HISTORICAL) IHE Encounter Template Text not used by [place] Plan of Treatment: Future Appointments (+ 6 [...] 2024 08:00 AM AMBULATORY - SURGERY [facility] Jun 10, 2024 08:50 AM AMBULATORY - MEDICINE [facility] Jun 10, 2024 11:00 AM AMBULATORY - PSYCHIATRY [facility] Jun 20, 2024 09:00 AM [facility] Jun 24, 2024 08:00 AM [facility] Jun 30, 2024 11:00 AM [facility] [place] [facility] Jun 30, 2024 03:00 PM [facility] Jul 01, 2024 09:00 AM AMBULATORY - MEDICINE [facility] Jul 07, 2024 10:00 AM AMBULATORY - PS[facility]CHIATRY [facility] Jul 08, 2024 10:00 AM [facility] Jul 10, 2024 08:30 AM AMBULATORY - MEDICINE [facility] Jul 24, 2024 03:00 PM AMBULATORY - PSYCHIATRY [facility] Aug 05, 2024 09:00 AM [facility] Aug 11, 2024 10:00 [facility] Aug 12, 2024 09:00 AM AMBULATORY - MEDICINE [facility] SINGH [facility] August 18, 2024 09:00 AM AMBULATORY - SURGERY LARRY HOLLOWAY [facility] September 02, 2024 08:20 AM AMBULATORY - SURGERY [facility]ARRY HOLLOWAY [facility] Oct 01, 2024 09:00 AM AMBULATORY - NONE D[facility] Rios [facility] Oct 30, 2024 09:00 AM AMBULATORY - PSYCHIATRY COREY NICHOLAS [facility] Lab Results: +/- 30 days of [...] Type Comment May 15, 2024 09:46 AM [facility] MAGNESIUM PLASMA Specimen Type: PLASMA [...] May 07, 2024 10:35 AM Reporting Lab: [address] [address] Performing Lab: [address] [address] MAGNESIUM 1.8 mg/dL 1.6-2.6 May 15, 2024 09:46 AM [facility] BNP ([employer]) PLASMA Specimen Type: PLASMA Comment: BNP results less than or equal to 100 pg/ml are apparel trimmings sales representative of normal values in patients without CHF. BNP results greater than 100 pg/ml are considered abnormal and suggestive of CHF. Higher BNP concentrations in the first 72 hours after Acute Coronary Syndrome are associated with an increased risk of , myocardial infarction and CHF. Ordering Provider: CYNDI STEINBERG Report Released Date/Time: May 07, 2024 10:35 AM Reporting Lab: [address] [address] Performing Lab: [address] [address] BNP ([place]) 29 pg/mL 0-100 May 15, 2024 09:46 AM [facility] PLASMA Specimen Type: PLASM A [...] May 07, 2024 10:35 AM Reporting Lab: [address] [address] Performing Lab: [address] [address] CREATININE 1.54 mg/dL H 0.72-1.25 UREA NITROGEN 20 mg/dL 9-25 GLUCOSE 151 mg/dL H 74-100 SODIUM 140 mmol/L 136-145 POTASSIUM 4.0 mmol/L 3.5-5.1 CHLORIDE 104 mmol/L 98-107 CO2 28 mmol/L 22-29 CALCIUM 9.7 mg/dL 8.4-10.2 ANION GAP 8 meq/L 3-19 eGFR (CKD-EPI) 46 Apr 29, 2024 10:55 AM [facility] URINALYSIS URINE Specimen Type : URINE Comment: Microscopic not indicated Ordering Provider: ERIK KIM Report Released Date/Time: Apr 16, 2024 01:19 PM Reporting Lab: [address] [address] Performing Lab: [address] [address] URINE COLOR Colorless Colorless-Yellow APPEARANCE Clear Clear UROBILINOGEN Normal mg/dL Normal URINE BLOOD Negative Negative URINE BILIRUBIN Negative Negative URINE KETONES Negative mg/dL Negative URINE PROTEIN Negative mg/dL Negative-Tr john URINE PH 7.0 4.5-8.0 URINE NITRITE Negative Negative URINE LEUKOCYTE EST Negative Negative SPECIFIC GRAVITY 1.005 1.005-1.030 URINE GLUCOSE Negative mg/dL Negative Apr 29, 2024 10:49 AM [facility] LACTIC ACID PLASMA Specimen Type : PLASMA Comment: ~2 hours from now Ordering Provider: ERIK KIM Report Released Date/Time: Apr 16, 2024 01:19 PM Reporting Lab: [address] [address] Performing Lab: [address] [address] LACTIC ACID 1.4 mmol/L 0.5-2.2 Apr 29, 2024 10:49 AM [facility] HIGH SENSITIVITY TROPONIN I PLASMA Specimen [...] I information resource can be reached in [facility] in the Tools menu, under the Education tab. Ordering Provider: ERIK KIM Report Released Date/Time: Apr 16, 2024 01:19 PM Reporting Lab: [address] [address] Performing Lab: [address] [address] HIGH SENSITIVITY TROPONIN I <4 4-35 Apr 29, 2024 10:49 AM [facility] MAGNESIUM PLASMA Specimen Type: PLASM A Comment: [...] Apr 29, 2024 10:33 AM Reporting Lab: [address] [address] Performing Lab: [address] [address] MAGNESIUM 1.7 mg/dL 1.6-2.6 Apr 29, 2024 10:49 AM [facility] PANEL 1 PLASMA Specimen Type: PLASM [...] Apr 29, 2024 10:33 AM Reporting Lab: [address] [address] Performing Lab: [address] [address] CREATININE 1.35 mg/dL H 0.72-1.25 UREA NITROGEN [...] 10:00 AM VA-TOBACCO NEVER U SED CIGARETTES [facility] Tobacco Use History This section includes a history of the smoking, or tobacco-related health factors, that were collected on or before the date of the Encounter. The data comes from the [place] facility where the Encounter took place. Date/Time Smoking Status/Tobacco Use Comment F achelen May 07, 2024 10:00 AM VA-TOBACCO NEVER U SED OTHER TYPE [facility] Feb 14, 2024 08:30 AM VA-TOBACCO FORMER USER [facility] Feb 14, 2024 08:30 AM VA-TOBACCO QUIT 15 YRS OR MORE [facility] Jan 10, 2023 11:00 AM VA-TOBACCO NEVER USED [facility] Dec 09, 2021 08:00 AM VA-TOBACCO NEVER USED [facility] Dec 10, 2020 09:30 AM VA-TOBACCO NEVER USED [facility] May 13, 2019 09:09 AM VA-TOBACCO NEVER USED [facility] Apr 03, 2018 09:45 AM VA-TOBACCO NEVER USED [facility] May 07, 2017 10:31 AM V9 LIFETIME NON-USER OF TOBACCO [facility] Apr 06, 2016 10:18 AM V9 LIFETIME NON-USER OF TOBACCO [facility] Jan 26, 2015 08:52 AM V9 LIFETIME NON-USER OF TOBACCO [facility] August 18, 2013 08:27 AM V9 LIFETIME NON-USER OF TOBACCO [facility] Sep 18, 2012 08:39 AM V9 LIFETIME NON-USER OF TOBACCO [facility] Jan 19, 2012 10:42 AM V9 LIFETIME NON-USER OF TOBACCO [facility] Jan 19, 2012 10:42 AM V9 TOBACCO OFFERED [facility] September 13, 2010 10:28 AM V9 LIFETIME NON-USER OF TOBACCO [facility] September 13, 2010 10:28 AM V9 TOBACCO OFFERED [facility] Sep 21, 2006 12:59 PM V9 LIFETIME NON-USER OF TOBACCO [facility] Jan 29, 2006 07:52 AM HF V9 LIFETIME NON-SMOKER [facility] Dec 30, 2004 08:05 AM HF V9 LIFETIME NON-SMOKER [facility] Dec 23, 2003 02:58 PM HF V9 LIFETIME NON-SMOKER [facility] Radiology Reports: +/- 30 days of the [...] Provider Source May 29, 2024 05:[address] PERFORMED BY OTHER FACILITY: EIRK GALLEGO [id number] -1945 M Exm Date: MAY 29, 2024@17:13 Req Phys: CYNDI STEINBERG Pat Loc: [facility] PACT LULU 1-2 (Req'g Lo Img Loc: OUTSIDE2 LD CT Service: Unknown (Case [id number] COMPLETE) [address] CT PERFORMED BY OTHER FACIL(CT Detailed) CPT:53763 Reason for Study: Exam imported from outside Clinical History: Original Data for Imported Study Patient Name: ERIK GALLEGO Date: 1945 Sex: M Study Date: 05/29/24 Study Time: 05:13:55 Study Description: CT CHEST PE/ABD/PEL W Referring Physician: TAMMI GEE Series 1: 2 CT files, description: PULMONOLOGIST INTENSIVIST Series 2: 216 CT files, description: 5.0mm [...] VERIFIED BY: / *ELECTRONICALLY FILED* [facility] May 27, 2024 08:07 AM MYOVIEW(1): ERIK GALLEGO [id number] -1945 M Ex Date: MAY 27, 2024@08:07 Req Phys: STEINBERGCYNDI Jovanny Landry Loc: [facility] POD FILM SOUND ENGINEER (Req'g Loc) Img Loc: NUCLEAR MEDICINE Service: [place] [address] (Case [id number] COMPLETE) MYOVIEW(1) (NM Detailed) CPT:A9502 Reason for [...] 27, 2024 Date Verified: MAY 27, 2024 Role Player E-Sig: Report: STUDY: GXT REPORT: Patient exercised [...] Staff: ANIA ANDRADE APRN, Cardiology Verified by sea shell gatherer for ANIA ANDRADE /[facility]INO[facility] May 27, 2024 08:07 AM 46934(D) MYOCARDIAL SPECT(MULTIPLE): ERIK GALLEGO NATHANIEL [id number] -1945 M Exm Date: MAY 27, 2024@08:07 Req Phys: CYNDI STEINBERG Loc: [facility] POD FILM SOUND ENGINEER (Req'g Loc) [facility] Loc: NUCLEAR MEDICINE Service: [place] [address] THIS IS AN AMENDED REPORT (Case [id number] COMPLETE) 15201(D) MYOCARDIAL SPECT(MULTIPL(NM Detailed) CPT:72816 Proc Modifiers : GXT Reason for Study: [...] 05, 2024 Date Verified: JUN 05, 2024 Role Player E-Sig: Report: [facility], [place], [place] STUDY: Treadmill Exercise SPECT Tc-99m myoview [...] performed with tomographic and three-dimensional reconstructions with [employer] NM/CT 640 system. The patient performed treadmill [...] data sets in addition to the conventional ioi-zwdywmszbei-nbvrtpggc images. Both filtered back projection and iterative [...] ventricular cavity. 4. SPECT images: Attenuation-corrected and znr-fwjyomqznwu-qtnvbdlfr SPECT images were evaluated. SPECT images demonstrate normal myocardial perfusion. There is a medium size, mild intensity defect located in the sfaqq-ci-ualxcn inferior myocardium . The defect is fixed [...] BY: Kerri Mena MD, Cardiology Attending /[facility] May 27, 2024 08:07 AM TC-99M FROM NON-HIGHLY ENRICHED URANIUM SOURCE: ERIK GALLEGO [id number] -1945 Ex Date: MAY 27, 2024@08:07 Req Phys: CYNDI STEINBERG Loc: [facility] POD FILM SOUND ENGINEER (Req'g Loc) Img Loc: NUCLEAR MEDICINE Service: [place] [address] THIS IS AN AMENDED REPORT (Case [id number] COMPLETE) TC-99M FROM NON-HIGHLY ENRICHED U(NM Detailed) [...] 05, 2024 Date Verified: JUN 05, 2024 Role Player E-Sig: Report: [facility], [place], [place] STUDY: Treadmill Exercise SPECT Tc-99m myoview [...] performed with tomographic and three-dimensional reconstructions with [employer] NM/CT 640 system. The patient performed treadmill [...] data sets in addition to the conventional kdh-jkimpbpteqo-ekvbrwkqf images. Both filtered back projection and iterative [...] ventricular cavity. 4. SPECT images: Attenuation-corrected and azo-ligtezhuuiy-dnddetiuf SPECT images were evaluated. SPECT images demonstrate normal myocardial perfusion. There is a medium size, mild intensity defect located in the snwhx-am-cvdzgf inferior myocardium . The defect is fixed [...] BY: Kerri Mena MD, Cardiology Attending /[facility] May 27, 2024 08:07 AM MYOVIEW(2): ERIK GALLEGO [id number] -1945 [facility] Date: MAY 27, 2024@08:07 Req Phys: CYNDI STEINBERG Loc: [facility] POD FILM SOUND ENGINEER (Req'g Loc) Img Loc: NUCLEAR MEDICINE Service: [place] [address] THIS IS AN AMENDED REPORT (Case [id number] COMPLETE) MYOVIEW(2) (NM Detailed) CPT:A9502 Reason for [...] 05, 2024 Date Verified: JUN 05, 2024 Role Player E-Sig: Report: [facility], [place] STUDY: Treadmill Exercise SPECT Tc-99m myoview [...] performed with tomographic and three-dimensional reconstructions with [employer] NM/CT 640 system. The patient performed treadmill [...] data sets in addition to the conventional aax-jtrpdecfeua-prjmmgkis images. Both filtered back projection and iterative [...] ventricular cavity. 4. SPECT images: Attenuation-corrected and nhw-diicwotmfvn-lobuvetoz SPECT images were evaluated. SPECT images demonstrate normal myocardial perfusion. There is a medium size, mild intensity defect located in the uccju-xc-kvbvbb inferior myocardium . The defect is fixed [...] BY: Kerri Mena MD, Cardiology Attending /[facility] May 27, 2024 08:07 AM CARD. STRESS TEST W/TREADMILL/...: ERIK GALLEGO [id number] -1945 M Ex Date: MAY 27, 2024@08:07 Req Phys: CYNDI STEINBERG Loc: [facility] POD FILM SOUND ENGINEER (Req'g Loc) Img Loc: NUCLEAR MEDICINE Service: [place] [address] THIS IS AN AMENDED REPORT (Case [id number] COMPLETE) CARD. STRESS TEST W/TREADMILL/...(NM Detailed) CPT:78689 Reason for Study: SEE CLINICAL HISTORY Clinical [...] 05, 2024 Date Verified: JUN 05, 2024 Role Player E-Sig: Report: [facility], [place] STUDY: Treadmill Exercise SPECT Tc-99m myoview [...] performed with tomographic and three-dimensional reconstructions with [employer] NM/CT 640 system. The patient performed treadmill [...] data sets in addition to the conventional tlv-kpqdizhcvec-ivdrkirqo images. Both filtered back projection and iterative [...] ventricular cavity. 4. SPECT images: Attenuation-corrected and lrr-zfastxhpryy-vpmsbjyga SPECT images were evaluated. SPECT images demonstrate normal myocardial perfusion. There is a medium size, mild intensity defect located in the umcdm-xh-yroxxy inferior myocardium . The defect is fixed [...] Attending /[facility] May 15, 2024 09:57 AM CHEST TWO(2) VIEW PA&LAT: ERIK GALLEGO [id number] -1945 M Ex Date: MAY 15, 2024@09:57 Req Phys: CYNDI STEINBERG Loc: [facility] PACT PHONE LULU (Req'g Im Loc: [facility] Service: [place] [address] (Case [id number] COMPLETE)CHEST TWO(2) VIEW PA&LAT (RAD Detailed) CPT:28661 Reason for Study: dyspnea Clinical History: Report Status: Verified Date Reported: MAY 17, 2024 Date Verified: MAY 17, 2024 Role Player E-Sig: Report: CHEST TWO(2) VIEW PA&LAT, 05/15/2024 10:02 AM EST INDICATION: dyspnea COMPARISON: April 16, 2024 Impression: Calcified granuloma right lung apex. No edema or pneumonia. No pleural effusion or pneumothorax. Heart size normal. No acute osseous abnormality. Primary Diagnostic Code: NO ALERT REQUIRED Primary Interpreting Staff: KAILYN STEELE, Staff Physician Verified by sea shell gatherer for KAILYN STEELE /KAILYN [facility]
--- OUTSIDE RECORDS SUMMARY | 2024-07-24 21:32 | XMS_ITS | Encounter Summary ---
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 Role Phone LAURA STEINBERG Primary [...] PART A Oct 14, 2009 PART A [id number] Alex GALLEGO PATIENT MEDICARE (WNR) MEDICARE (M) PART B Oct 14, 2009 PART B [id number] Alex GALLEGO PATIENT MEDICARE (WNR) MEDICARE (M) PART A Oct 14, 2009 PART A [id number] Alex GALLEGO PATIENT MEDICARE (WNR) MEDICARE (M) PART B Oct 14, 2009 PART B [id number] Alex GALLEGO PATIENT MEDICARE (WNR) MEDICARE (M) PART A Oct 14, 2009 PART A [id number] Alex GALLEGO PATIENT MEDICARE (WNR) MEDICARE (M) PART B Oct 14, 2009 PART B [id number] Alex GALLEGO PATIENT Selected Encounter This section includes the information on record at ID for the Encounter. Date/Time Encounter Type Encounter Description Reason Pro vider Source Jun 12, 2024 04:05 PM Outpatient Encounter ADMIN PAT ACTIVTIES (MASNONCT) [...] 2024 09:00 AM [facility] Jun 24, 2024 08:00 AM [facility] Jun 30, 2024 11:00 [facility] Jun 30, 2024 03:00 PM AMBULATORY - MEDICINE [facility] Jul 01, 2024 09:00 AM AMBULATORY - MEDICINE JAYNE [facility] Jul 07, 2024 10:00 AM [facility] Jul 08, 2024 10:00 AM [facility] 10, 2024 08:30 AM AMBULATORY - MEDICINE JAYNE [facility]GTON[facility]CD[facility] Jul 24, 2024 03:00 PM AMBULATORY - PS[facility]CHIATRY [facility] Aug 05, 2024 09:00 AM [facility] Aug 11, 2024 10:00 AM [facility]BULATORY - PSYCHIATRY [facility] Aug 12, 2024 09:00 AM [facility] August 18, 2024 09:00 AM AMBULATORY - SURGERY [facility] September 02, 2024 08:20 AM AMBULATORY - SURGERY [facility] Oct 01, 2024 09:00 AM [facility] Oct 30, 2024 09:00 AM AMBULATORY - PSYCHIATRY COREY NICHOLAS [facility] Dec 09, 2024 08:00 AM AMBULATORY - NONE [facility] Lab Results: +/- 30 days of the encounter This section includes the Chemistry and Hematology Lab Results on record with ID for the patient. Radiology Reports and Pathology Reports are provided separately, in subsequent sections. Lab Results This section contains the Chemistry/Hematology Results that were resulted 30 days before or 30 daysafter the date of the Encounter. Date/Time Source Result Type Result - Unit Interpretation Reference Range Specimen Type Comment Jun 30, 2024 03:27 PM [facility] BNP (STODDARD) PLASMA Specimen Type: PLASMA Comment: BNP results less than or equal to 100 pg/ml are arborist representative of normal values in patients without CHF. BNP results greater than 100 pg/ml are considered abnormal and suggestive of CHF. Higher BNP concentrations in the first 72 hours after Acute Coronary Syndrome are associated with an increased risk of , myocardial infarction and CHF. Ordering Provider: SACHI SAINZ Report Released Date/Time: Jun 30, 2024 03:21 PM Reporting Lab: [address] [address] Performing Lab: [address] [address] BNP (STODDARD) 22 pg/mL 0-100 Jun 30, 2024 03:27 PM [facility] PANEL 1 PLASMA Specimen Type: [...] Jun 30, 2024 03:21 PM Reporting Lab: [address] [address] Performing Lab: [address] [address] CREATININE 1.43 mg/dL H 0.72-1.25 UREA NITROGEN 22 mg/dL 9-25 GLUCOSE 164 mg/dL H 74-100 SODIUM 139 mmol/L 136-145 POTASSIUM 3.7 mmol/L 3.5-5.1 CHLORIDE 102 mmol/L 98-107 CO2 27 mmol/L 22-29 CALCIUM 9.8 mg/dL 8.4-10.2 ANION GAP 10 meq/L 3-19 eGFR (CKD-EPI) 50 Jun 30, 2024 03:27 PM [facility] CBC/PLT BLOOD Specimen Type: BLOOD No comment entered. Ordering Provider: SACHI SAINZ Report Released Date/Time: Jun 30, 2024 03:21 PM Reporting Lab: [address] [address] Performing Lab: [facility] [address] [facility] [address] WBC 7.2 10*3/uL 5.0-10.0 RBC 4.85 10*6/uL 4.6-6.2 HGB 14.7 g/dL 14.0-18.0 HCT 43.8 42.0-52.0 MCV 90.3 fL 80.0-94.0 MCH 30.3 pg 27.0-31.0 MCHC 33.6 g/dL 32.0-36.0 PLT 235 10*3/uL 150-450 MPV 10.6 fL 9.0-13.1 RDW 14.8 11.0-16.0 NRBC 0.0 0.0-0.0 May 15, 2024 09:46 AM [facility] MAGNESIUM PLASMA Specimen [...] May 07, 2024 10:35 AM Reporting Lab: [address] [address] Performing Lab: [address] [address] MAGNESIUM 1.8 mg/dL 1.6-2.6 May 15, 2024 09:46 AM [facility] BNP (Ibercheck) PLASMA Specimen Type: PLASMA Comment: BNP results less than or equal to 100 pg/ml are arborist representative of normal values in patients without CHF. BNP results greater than 100 pg/ml are considered abnormal and suggestive of CHF. Higher BNP concentrations in the first 72 hours after Acute Coronary Syndrome are associated with an increased risk of , myocardial infarction and CHF. Ordering Provider: LAURA STEINBERG Report Released Date/Time: May 07, 2024 10:35 AM Reporting Lab: [address] [address] Performing Lab: [address] [address] BNP (STODDARD) 29 pg/mL 0-100 May 15, 2024 09:46 AM [facility] PANEL 1 PLASMA Specimen Type: [...] May 07, 2024 10:35 AM Reporting Lab: [address] [address] Performing Lab: [address] [address] CREATININE 1.54 mg/dL H 0.72-1.25 UREA NITROGEN [...] NEVER U SED OTHER TYPE [facility] Tobacco Use History This section includes a history of the smoking, or tobacco-related health factors, that were collected on or before the date of the Encounter. The data comes from the ID facility where the Encounter took place. Date/Time Smoking Status/Tobacco Use Comment Ramu achelen May 07, 2024 10:00 AM VA-TOBACCO NEVER U SED OTHER TYPE [facility] Feb 14, 2024 08:30 AM VA-TOBACCO FORMER USER [facility] Feb 14, 2024 08:30 AM VA-TOBACCO QUIT [...] the Encounter. The data comes from all [facility] facilities. Date/Time Radiology Report Provider Source May 29, 2024 05:[id number] PERFORMED BY OTHER FACILITY: ERIK GALLEGO [facility] [id number] -1945 Exm Date: MAY 29, 2024@17:13 Req Phys: LAURA STEINBERG Pat Loc: DE[facility] PACT LULU 1-2 (Req'g Lo Img Loc: OUTSIDE2 LD CT Service: Unknown (Case [id number] COMPLETE) [id number] CT PERFORMED BY OTHER FACIL(CT Detailed) CPT:90425 Reason for Study: Exam imported from outside Clinical History: Original Data for Imported Study Patient Name: ERIK GALLEGO Date: 1945 Sex: M Study Date: 05/29/24 Study Time: 05:13:55 Study Description: CT CHEST PE/ABD/PEL W Referring Physician: TAMMI GEE Series 1: 2 CT files, 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 Series 2: 216 CT files, description: 5.0mm [...] VERIFIED BY: / *ELECTRONICALLY FILED* [facility] May 27, 2024 08:07 AM MYOVIEW(1): ERIK GALLEGO NATHANIEL [id number] -1945 M Exm Date: MAY 27, 2024@08:07 Req Phys: LAURA STEINBERG Pat Loc: DEANNE POD GRAPHICS ARTIST (Req'g Loc) Img Loc: NUCLEAR MEDICINE Service: [place] [address] (Case [id number] COMPLETE) MYOVIEW(1) (NM Detailed) CPT:A9502 Reason for [...] 27, 2024 Date Verified: MAY 27, 2024 Systems Qa Analyst E-Sig: Report: STUDY: GXT REPORT: Patient exercised [...] Staff: ANIA ANDRADE APRN, Cardiology Verified by ballistics professor for ANIA ANDRADE /ANIA ESPINOZA-[facility] May 27, 2024 08:07 AM 18207(D) MYOCARDIAL SPECT(MULTIPLE): ERIK GALLEGO NATHANIEL [id number] -1945 M Exm Date: MAY 27, 2024@08:07 Req Phys: LAURA STEINBERG Loc: DE[facility]NE POD GRAPHICS ARTIST (Req'g Loc) Img Loc: NUCLEAR MEDICINE Service: [place] [address] THIS IS AN AMENDED REPORT (Case [id number] COMPLETE) 66182(D) MYOCARDIAL SPECT(MULTIPL(NM Detailed) CPT:35428 Proc Modifiers : GXT Reason for Study: [...] 05, 2024 Date Verified: JUN 05, 2024 Systems Qa Analyst E-Sig: Report: [facility], [place], [place] STUDY: Treadmill Exercise SPECT Tc-99m myoview [...] performed with tomographic and three-dimensional reconstructions with Qapa NM/CT 640 system. The patient performed treadmill [...] data sets in addition to the conventional wyf-jqkpmclypvk-fmzytkuht images. Both filtered back projection and iterative [...] ventricular cavity. 4. SPECT images: Attenuation-corrected and mbq-yyxiwpzgoit-batakzivr SPECT images were evaluated. SPECT images demonstrate normal myocardial perfusion. There is a medium size, mild intensity defect located in the sknzy-yo-uuozmp inferior myocardium . The defect is fixed [...] FROM NON-HIGHLY ENRICHED URANIUM SOURCE: ERIK GALLEGO [id number] -1945 M Exm Date: MAY 27, 2024@08:07 Req Phys: MARYANLAURA Jovanny Landry Loc: DEANNE POD GRAPHICS ARTIST (Req'g Loc) Img Loc: NUCLEAR MEDICINE Service: [place] [address] THIS IS AN AMENDED REPORT (Case [id number] COMPLETE) TC-99M FROM NON-HIGHLY ENRICHED U(NM Detailed) [...] 05, 2024 Date Verified: JUN 05, 2024 Systems Qa Analyst E-Sig: Report: [facility], [place], [place] STUDY: Treadmill Exercise SPECT Tc-99m myoview [...] performed with tomographic and three-dimensional reconstructions with Qapa NM/CT 640 system. The patient performed treadmill [...] data sets in addition to the conventional rlp-lbfkrjglhkd-tdruzuoys images. Both filtered back projection and iterative [...] ventricular cavity. 4. SPECT images: Attenuation-corrected and qbr-nwealoeonhb-vwasgmblc SPECT images were evaluated. SPECT images demonstrate normal myocardial perfusion. There is a medium size, mild intensity defect located in the beqci-ub-sqtiqw inferior myocardium . The defect is fixed [...] 27, 2024 08:07 AM MYOVIEW(2): ERIK GALLEGO [id number] -1945 M Exm Date: MAY 27, 2024@08:07 Req Phys: LAURA STEINBERG Loc: DEANNE POD GRAPHICS ARTIST (Req'g Loc) Img Loc: NUCLEAR MEDICINE Service: [place] [address] THIS IS AN AMENDED REPORT (Case [id number] COMPLETE) MYOVIEW(2) (NM Detailed) CPT:A9502 Reason for [...] 05, 2024 Date Verified: JUN 05, 2024 Systems Qa Analyst E-Sig: Report: [facility], [place], [place] STUDY: Treadmill Exercise SPECT Tc-99m myoview [...] performed with tomographic and three-dimensional reconstructions with Qapa NM/CT 640 system. The patient performed treadmill [...] data sets in addition to the conventional pkf-kgftvyrjgmp-vniwvywqf images. Both filtered back projection and iterative [...] ventricular cavity. 4. SPECT images: Attenuation-corrected and ski-oppoesxoqmw-vyqcuysif SPECT images were evaluated. SPECT images demonstrate normal myocardial perfusion. There is a medium size, mild intensity defect located in the xfzln-qp-bpqlnf inferior myocardium . The defect is fixed [...] AM CARD. STRESS TEST W/TREADMILL/...: ERIK GALLEGO [id number] -1945 [facility] Date: MAY 27, 2024@08:07 Req Phys: LAURA STEINBERG Jovanny Pat Loc: DEANNE POD GRAPHICS ARTIST (Req'g Loc) Img Loc: NUCLEAR MEDICINE Service: [place] [address] THIS IS AN AMENDED REPORT (Case [id number] COMPLETE) CARD. STRESS TEST W/TREADMILL/...(NM Detailed) CPT:20568 Reason for Study: SEE CLINICAL HISTORY Clinical [...] 05, 2024 Date Verified: JUN 05, 2024 Systems Qa Analyst E-Sig: Report: [place], [place] STUDY: Treadmill Exercise SPECT Tc-99m myoview [...] performed with tomographic and three-dimensional reconstructions with Qapa NM/CT 640 system. The patient performed treadmill [...] data sets in addition to the conventional umw-nmgmnwjxrbu-malxnmfth images. Both filtered back projection and iterative [...] ventricular cavity. 4. SPECT images: Attenuation-corrected and wcf-dcmknuenrqb-ijzkqizlg SPECT images were evaluated. SPECT images demonstrate normal myocardial perfusion. There is a medium size, mild intensity defect located in the nwqnv-uv-vmjcee inferior myocardium . The defect is fixed [...] AM CHEST TWO(2) VIEW PA&LAT: ERIK GALLEGO [id number] -1945 M Ex Date: MAY 15, 2024@09:57 Req Phys: LAURA STEINBERG Pat Loc: DEANNE PACT PHONE LULU LenzReq'g Img Loc: [facility] Service: Unknown [place] [id number] (Case [id number] COMPLETE)CHEST TWO(2) VIEW PA&LAT (RAD Detailed) CPT:74634 Reason for Study: dyspnea Clinical History: Report Status: Verified Date Reported: MAY 17, 2024 Date Verified: MAY 17, 2024 Systems Qa Analyst E-Sig: Report: CHEST TWO(2) VIEW PA&LAT, 05/15/2024 10:02 AM EST INDICATION: dyspnea COMPARISON: April 16, 2024 Impression: Calcified granuloma right lung apex. No edema or pneumonia. No pleural effusion or pneumothorax. Heart size normal. No acute osseous abnormality. Primary Diagnostic Code: NO ALERT REQUIRED Primary Interpreting Staff: KAILYN STEELE, Staff Physician Verified by ballistics professor for KAILYN STEELE /KAILYN AVILES [facility] Pathology Reports: +/- 30 days of the [...] Reporting Lab: [facility] [CLIA# [id number]] [address] [place] [address] - - - - - - - [...] left earlobe and consists of an unoriented, ied-mgdq-vphtqqs, yellow/white shave of skin measuring 0.5 x 0.4 x 0.2 cm. A rough papule is identified over the skin surface measuring 0.4 x 0.3 cm. The cut surface is yellow/white and grossly unremarkable. The cut surface is inked blue. The specimen is bisected to reveal a white solid interior. The specimen is submitted entirely in a single cassette. 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 /peyton/ JOE LEUNG pathologist Signed Jul 10, 2024@09:41 Performing Laboratory: Surgical Pathology Report Performed By: [facility] [CLIA# [id number]] [address] [place] [id number] $FTR - - - - - - - - - - - - - - - - - - - - - - - - - - - - - - - - - - - - - - - - (End of report) JOE LEUNG MD [facility] Date Jul 10, 2024 - - - - - - - - - - - - - - - - - - - - - - - - - - - - - - - - - - - - - - - - ERIK GALLEGO STANDARD FORM 515 ID:[id number] SEX:M :1945 AGE: 78 LOC:PATH PCP: Laura Steinberg MD /peyton/ JOE LEUNG pathologist Signed: 07/10/2024 09:41 JOE LEUNG [facility] Encounter Notes: All associated encounter notes This section contains the clinical notes associated to the Encounter. Date/Time Encounter Note(s) Provider Source May 30, 2024 04:05 PM NONVA NOTE: LOCAL TITLE: OUTSIDE MEDICAL RECORD-OTHER STANDARD TITLE: NONVA NOTE DATE OF NOTE: MAY 30, 2024@16:05 ENTRY DATE: JUN 12, 2024@16:05:09 AUTHOR: JOE MAX COSIGNER: URGENCY: STATUS: COMPLETED The scanned image may be viewed in [employer] IP. /peyton/ JOE MAX fileclerk Signed: 06/12/2024 16:05 JOE MAX-Joseph [facility]
--- OUTSIDE RECORDS SUMMARY | 2024-07-24 21:32 | XMS_ITS | Encounter Summary ---
Author Name [facility] [place] Organization [facility] [place] Address [address] [place] [address] Care Team Providers Care Tire And Lube Technician Name Role Phone LAURA STEINBERG Primary [...] PART A Oct 14, 2009 PART A [id number] Alex MISHRA PATIENT MEDICARE (WNR) MEDICARE (M) PART B Oct 14, 2009 PART B [id number] Alex MISHRA PATIENT MEDICARE (WNR) MEDICARE (M) PART A Oct 14, 2009 PART A [id number] Alex MISHRA PATIENT MEDICARE (WNR) MEDICARE (M) PART B Oct 14, 2009 PART B [id number] Alex MSIHRA PATIENT MEDICARE (WNR) MEDICARE (M) PART A Oct 14, 2009 PART A [id number] Alex MISHRA PATIENT MEDICARE (WNR) MEDICARE (M) PART B Oct 14, 2009 PART B [id number] [facility] Alex MISHRA PATIENT Selected Encounter This section includes the information on record at [place] for the Encounter. Date/Time Encounter Type Encounter Description Reason Provider Source Jul 10, 2024 08:30 AM OFFICE O/P NEW MOD 45 MIN PULMONARY/CHEST ICD-10-CM R91.8 Other nonspecific abnormal finding of lung field MICHELLE DO Encounter Template Text not used by [place] Assessments - Encounter Diagnoses This section includes the primary and secondary diagnoses documented for the Encounter. Date/Time Primary/Secondary Diagnosis Diagnosis Name Provider Source Jul 10, 2024 08:15 PM PRIMARY Other nonspecific abnormal finding of lung field SOPHY WIGGINS [facility] Jul 10, 2024 08:15 PM SECONDARY Athscl heart disease of kake coronary artery w/o ang pctrs SOPHY WIGGINS [facility] Jul 10, 2024 08:15 PM SECONDARY Obstructive sleep apnea (adult) (pediatric) SOPHY WIGGINS [facility] Jul 10, 2024 08:15 PM SECONDARY Pulmonary hypertension, unspecified SOPHY WIGGINS [facility] Plan of Treatment: Future Appointments (+ [...] 24, 2024 03:00 PM AMBULATORY - PSYCHIATRY [facility] Aug 05, 2024 09:00 AM AMBULATORY - MEDICINE [facility] Aug 11, 2024 10:00 AM AMBULATORY - PSYCHIATRY [facility] Aug 12, 2024 09:00 AM AMBULATORY - MEDICINE [facility] August 18, 2024 09:00 AM AMBULATORY - SURGERY [facility] September 02, 2024 08:20 AM [facility] Oct 01, 2024 09:00 AM [facility]UL[facility] - NONE [facility] Oct 30, 2024 09:00 AM AMBULATORY - PSYCHIATRY [facility] NICHOLAS [facility] Dec 09, 2024 08:00 AM AMBULATORY - NONE [facility] Dec 31, 2024 08:30 AM AMBULATORY - MEDICINE JAYNE SINGH [facility] Lab Results: +/- 30 days of the encounter This section includes the Chemistry and Hematology Lab Results on record with [place] for the patient. Radiology Reports and Pathology Reports are provided separately, in subsequent sections. Lab Results This section contains the Chemistry/Hematology Results that were resulted 30 days before or 30 daysafter the date of the Encounter. Date/Time Source Result Type Result - Unit Interpretation Reference Range Specimen Type Comment Jun 30, 2024 03:27 PM [facility] BNP ([place]ARD) PLASMA Specimen Type: PLASMA Comment: BNP results less than or equal to 100 pg/ml are customer care representative of normal values in patients without CHF. BNP results greater than 100 pg/ml are considered abnormal and suggestive of CHF. Higher BNP concentrations in the first 72 hours after Acute Coronary Syndrome are associated with an increased risk of , myocardial infarction and CHF. Ordering Provider: SACHI SAINZ Report Released Date/Time: Jun 30, 2024 03:21 PM Reporting Lab: [address] [id number] Performing Lab: [address] [address] BNP (STODDARD) 22 pg/mL 0-100 Jun 30, 2024 03:27 PM [facility] PANEL 1 PLASMA Specimen Type: PLASM A [...] Jun 30, 2024 03:21 PM Reporting Lab: [address] [id number] Performing Lab: [address] [address] CREATININE 1.43 mg/dL H 0.72-1.25 UREA NITROGEN 22 mg/dL 9-25 GLUCOSE 164 mg/dL H 74-100 SODIUM 139 mmol/L 136-145 POTASSIUM 3.7 mmol/L 3.5-5.1 CHLORIDE 102 mmol/L 98-107 CO2 27 mmol/L 22-29 CALCIUM 9.8 mg/dL 8.4-10.2 ANION GAP 10 meq/L 3-19 eGFR (CKD-EPI) 50 Jun 30, 2024 03:27 PM [facility] CBC/PLT BLOOD Specimen Type: BLOOD No comment entered. Ordering Provider: SACHI SAINZ Report Released Date/Time: Jun 30, 2024 03:21 PM Reporting Lab: [facility] [address] [facility] [id number] Performing Lab: [facility] [address] [facility] [id number] WBC 7.2 10*3/uL 5.0-10.0 RBC 4.85 10*6/uL [...] COSIGNER: URGENCY: STATUS: COMPLETED $APHDR Reporting Lab: [facility] [CLIA# [id number]] [address] [place] [address] - - - - - - - [...] left earlobe and consists of an unoriented, qlg-qite-pbrhzzz, yellow/white shave of skin measuring 0.5 x 0.4 x 0.2 cm. A rough papule is identified over the skin surface measuring 0.4 x 0.3 cm. The cut surface is yellow/white and grossly unremarkable. The cut surface is inked blue. The specimen is bisected to reveal a white solid interior. The specimen is submitted entirely in a single cassette. CPT CODE - 89234 MICROSCOPIC EXAM/DIAGNOSIS: Skin, below left earlobe, shave biopsy: -Squamous cell carcinoma in-situ. /peyton/ JOE LEUNG pathologist Signed Jul 10, 2024@09:41 Performing Laboratory: Surgical Pathology Report Performed By: [facility] [CLIA# [id number]] [address] [place] [id number] $FTR - - - - - - - - - - - - - - - - - - - - - - - - - - - - - - - - - - - - - - - - (End of report) JOE LEUNG MD [facility] Date Jul 10, 2024 - - - - - - - - - - - - - - - - - - - - - - - - - - - - - - - - - - - - - - - - ERIK MISHRA STANDARD FORM 515 ID:[id number] SEX:M :[id number] AGE: 78 LOC:PATH PCP: Laura Steinberg MD /peyton/ JOE LEUNG pathologist Signed: 07/10/2024 09:41 JOE LEUNG [facility] Encounter Notes: All associated encounter notes This section contains the clinical notes associated to the Encounter. Date/Time Encounter Note(s) Provider Source Jul 10, 2024 12:18 PM PULMONARY CONSULT: LOCAL TITLE: PULMONARY CONSULT/NEW PATIENT STANDARD TITLE: PULMONARY CONSULT DATE OF NOTE: JUL 10, 2024@12:18 ENTRY DATE: JUL 10, 2024@12:18:54 AUTHOR: SOPHY WIGGINS EXP COSIGNER: MICHELLE DO URGENCY: STATUS: COMPLETED PULMONARY CONSULT/NEW PATIENT Has ADDENDA Referrering provider: Laura Steinberg Reason for consult: mosaicism HPI Mr. Mishra is a 78 yo M w/ JAYLA, CAD s/p PCI to proximal LAD, CKD, lifetime nonsmoker who presents to pulmonary clinic to establish care for abnormal CT scan obtained during inpatient stay at [facility] where he underwent LHC, RHC. Patient had been having intermittent episodes that were becoming more frequent of dizziness, pre-syncope, SOB, chest discomfort. He then presented to [facility] with symptoms concerning for unstable angina. Underwent R/LHC. LHC revealed 90% lesion in proximal LAD for which he recieved one stent. His RHC revealed a RA pressure of 6, PA pressure of 42/15, and and Wedge of 15 for which he was diagnosed with pulmonary hypertension. As part of his workup he completed a CT chest which then revealed a mosaicism and enlarged mediastinal partially calcified lymph nodes. No hemoptysis, fever/chills, night sweats, cough, sputum production, wheezing, eczema, h/o asthma, night time awakenings. 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 - Outdoor hobbies: none, no bird/bat exposure - Meds: no chemo/amio/maddi/xrt exposure - Pets: 1 dog PMHx: - CAD - CKD - HFpEF PSHx: - PCI FamHx: - No autoimmune or lung disease history SocHx: - Lifetime nonsmoker - - Has children and grandchildren Medication (Local) Status ALOH 160/MG CARB 105MG CHEW TAB Status: ACTIVE AMLODIPINE BESYLATE 2.5MG TAB Status: ACTIVE CALCIPOTRIENE 0.005% TOP CREAM Status: ACTIVE CLOTRIMAZOLE 1% TOP SOLN Status: ACTIVE FLUOROURACIL 5% CREAM Status: ACTIVE FUROSEMIDE 40MG TAB Status: ACTIVE GABAPENTIN 300MG CAP Status: ACTIVE LIDOCAINE 5% 5IN X 6IN PATCH Status: ACTIVE LOSARTAN 100MG TAB Status: ACTIVE MAGNESIUM OXIDE 420MG TAB Status: ACTIVE MUPIROCIN 2% OINT Status: ACTIVE PRAZOSIN HCL 1MG CAP Status: ACTIVE TABLET CUTTER Status: ACTIVE TRIAMCINOLONE ACETONIDE 0.1% OINT Status: ACTIVE Medication (Remote) Status No remote medications found. IM - Immunizations ADMINISTERED Immunization Series Date Facility Reaction Info DTP 08/18/2013 [facility] FLU,3 YRS (HISTORICAL) 02/25/2015 [facility] FLU,3 YRS (HISTORICAL) 02/25/2015 [facility] FLU,3 YRS (HISTORICAL) 05/15/2011 [facility] FLU,3 YRS (HISTORICAL) 03/30/2009 [facility] FLU,3 YRS (HISTORICAL) 01/03/2008 [facility] HEP A, ADULT 11/18/2018 [facility] HEP A, ADULT 05/20/2018 [facility] INFLUENZA A & B (HISTORICAL) 04/06/2016 [facility] INFLUENZA A & B (HISTORICAL) 02/25/2015 [facility] INFLUENZA A & B (HISTORICAL) 02/25/2015 [facility] INFLUENZA A & B (HISTORICAL) 05/15/2011 [facility] INFLUENZA A & B (HISTORICAL) 03/30/2009 [facility] INFLUENZA A & B (HISTORICAL) 01/03/2008 [facility] INFLUENZA A & B (HISTORICAL) No Site <C> INFLUENZA, HIGH-DOSE, QUADRIVALE* C 01/10/2023 [facility] INFLUENZA, HIGH-DOSE, TRIVALENT,* 02/14/2024 [facility] INFLUENZA, SPLIT VIRUS, QUADRIVA* 06/08/2021 [facility] INFLUENZA, SPLIT VIRUS, QUADRIVA* 02/07/2019 [facility] INFLUENZA, SPLIT VIRUS, TRIVALEN* 05/13/2018 [facility] [id number] (HISTORICAL) 10/01/2015 [facility] PNEUMOCOCCAL CONJUGATE PCV20, PO* 12/09/2021 [facility] PNEUMOCOCCAL POLYSACCHARIDE PPV23 08/15/2018 [facility] PNEUMOCOCCAL, UNSPECIFIED FORMUL* 12/23/2003 [facility] TD (ADULT), 2 LF TETANUS TOXOID,* 1 06/18/1996 [facility] [facility] TD (ADULT), 5 LF TETANUS TOXOID,* 06/20/2024 [facility] TD(ADULT) UNSPECIFIED FORMULATION 06/30/2005 [facility] TDAP 08/18/2013 [facility] TDAP (HISTORICAL) 08/18/2013 [facility] ZOSTER RECOMBINANT 06/20/2024 [facility]* ZOSTER RECOMBINANT 2 08/12/2018 [facility] ROS: A comprehensive 14-point ROS was negative and non-contributory except as noted in HPI. PHYSICAL EXAM: Vitals: bp 129/76, hr 77, t 97.7, spo2 97% GEN: well appearing, nontoxic EYES: anicteric sclera HEENT: no cervical or supraclavicular LAD, MMM CV: RRR, normal s1 and s2 PULM:normal work of breathing, lungs ctab, no wheezing or crackles ABD: soft, nttp MSK: 2+ pitting edema present, no joint deformities SKIN: warm and dry NEURO:aox4, normal speech PSYCH: normal mood and affect DATA REVIEWED: Labs... ALIX <1:40 Imaging... 05/2024 CT chest: mosaicism vs pulm edema, increased interstitial thickening and prominent vasculature, large partially calcified mediastinal/perihilar lymph nodes, calcified nodule PFTs... FVC 3.09 FEV1 2.33 ratio 75% TLC 5.76 RV/TLC 42% DLCO 17.80 essentially normal leo. Borderline lower fvc and fev1 which could suggest restriction Echo... ASSESSMENT/PLAN Mr. Mishra is a 78 yo M w/ CAD s/p PCI to proximal LAD, CKD, lifetime nonsmoker who presents to pulmonary clinic to establish care for abnormal CT scan obtained during inpatient stay at [facility] where he underwent LHC, RHC revealing post capillary PH. He has established with Dr. Sainz with Cardiology and continuing dapt and diuresis. He reports significant improvement in his symptoms with revascularization and diuresis. His PFTs today are unremarkable. His history is not suggestive of rheumatologic disease. I suspect the mosaicism on imaging is actually pulmonary edema though it is possible he has air trapping ans asthma. He has not typical asthma symptoms. #Abnormal lung imaging #CAD #PH Suspect calcified nodes are 2/2 prior pulmonary histo. Sarcoidosis, malginancy on ddx though less likely given appearance and history. He has no prior smoking history, no B symptoms, no pulmonary nodules. Not upper lobe predominant and no nodularity or history to suggest HP. Serum calcium is mildly elevated. No personal or family hx of autoimmune disease. Last ALIX in 2009 negative. - Repeat CT chest in 6 months after improved volume status - Follow up in clinic after repeat CT scan - If change in symptoms or imaging, will set up for EBUS outpatient - Continue diuresis per Cards #JAYLA - Continue cpap Thank you for this interesting consult. Please call or email if any questions or concerns. I spent 45 mins entering clinical information into CPRS, reviewing history, performing an exam and evaluation, interpreting results, counseling patient/family/caregiver, reviewing imaging/labs/pfts, ordering meds/tests/procedures, referring and communicating with consulting health manager managed care and care coordination. Assessment and plan discussed with attending physician,Dr. Do, who has seen and agrees. /peyton/ SOPHY WIGGINS Signed: 07/10/2024 20:16 /peyton/ MICHELLE DO Pulmonary/Critical Care Attending Cosigned: 07/11/2024 10:14 07/11/2024 ADDENDUM STATUS: COMPLETED I have discussed the patient with the personalized living manager in the clinic on 07/10/24. This note complements their note, level of billing reflects both. Agree with assessment and plan as noted above with any edits/additions detailed below. All relevant investigational data including labs and PFTs were reviewed and all relevant radiographic data (CXRs / CT scans) were visualized personally. Patient found to have CAD with 90% LAD lesion at OSH s/p PCI as well as mild PH (mPAP 24 with PCWP 15 and low reported PVR <3 bermudez units); of note this data is not available for review however and is from the medical record. 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 Patient is overall doing better since his PCI. His PFTs from [facility] this month are reassuring and there has been no significant decline compared to testing from 2019. Airways disease remains on differential and will plan on repeating CT imaging as well as clinical evaluation at follow up appointment, but for now focusing on cardiac optimization takes precedence. /peyton/ MICHELLE DO Pulmonary/Critical Care Attending Signed: 07/11/2024 10:48 07/23/2024 ADDENDUM STATUS: COMPLETED Meds/treatment/treatment plan discussed w/ during appt. per M.D. & voiced understanding of any changes in meds/treatment plan. dismissed from clinic by provider upon completion of visit. Appt. to be scheduled & appt. letter mailed to per MD order indicating modality of appt. (face to face/VVC/CVT/telephone). If provider not available or requires overbook,alert Bulk Plant Supervisor & Pulmonary Provider for overbook approval. Future test results auto alerted to M.D. once completed for M.D. to review & notify of results. See M.D. note & M.D. orders for further information. - Repeat CT chest in 6 months after improved volume status - If change in symptoms or imaging, will set up for EBUS outpatient - Follow up in clinic on/or around 12/15/[address] scan /es/ Beverly Winkler RN Pulmonary Bulk Plant Supervisor Signed: 07/23/2024 13:45 SOPHY WIGGINS-[facility] Jul 10, 2024 08:34 AM NURSING OUTPATIENT NOTE: LOCAL TITLE: [facility] MEDICINE CLINIC INTAKE NOTE STANDARD TITLE: NURSING OUTPATIENT NOTE DATE OF NOTE: JUL 10, 2024@08:34 ENTRY DATE: JUL 10, 2024@08:34:49 AUTHOR: NEISHA BANERJEE EXP COSIGNER: URGENCY: STATUS: COMPLETED Reason for visit/chief complaint: B/P: 129/76 (07/10/2024 08:31) P: 77 (07/10/2024 08:31) R: 18 (06/20/2024 08:54) T: 97.7 F [36.5 C] (07/10/2024 08:31) HT: 70 in [177.8 cm] (06/20/2024 08:54) WT: 211.0 lb [95.71 kg] (07/10/2024 08:31) Are you having any pain or recurrent pain in the last several weeks/months? No Severity Scale (0) Location: Duration: Characteristics: Pain education material offered to patient (for pain > 3) No Risk factors history: Hypertension Yes Have you taken your blood pressure medication today? Yes Do you have a BP cuff at home? Yes Does the home BP cuff work and is used at home? Yes What does your blood pressure run at home? BP Rechecked: No Manual blood pressure taken: No Primary Care human services professional notified of elevated BP greater of 140/90: No Patient notified financial planning advisor available upon request for any examinations/procedures. The [...] 05/07/24 Expires: 08/05/24 Refills: 0 Status: ACTIVE CALCIPOTRIENE 0.005% TOP CREAM Directions: APPLY SMALL AMOUNT TO AFFECTED AREA TWICE A DAY -APPLY TO SUN DAMAGED AREAS. APPLY MORNING AND EVENING FOR 7 DAYS. TO BE USED WITH FLUOROURACIL CREAM Quantity: 60 for 30 days Issued: 07/08/24 Filled: 07/08/24 Expires: 08/07/24 Refills: 0 Status: ACTIVE CLOTRIMAZOLE 1% TOP SOLN Directions: APPLY SMALL AMOUNT TO AFFECTED AREA TWICE A DAY FOR FUNGAL INFECTION Quantity: 30 for 30 days Issued: 07/13/23 Filled: 02/04/24 Expires: 07/13/24 Refills: 0 Status: ACTIVE FLUOROURACIL 5% CREAM Directions: APPLY SMALL AMOUNT TO AFFECTED AREA TWICE A DAY -APPLY TO SUN DAMAGED AREAS. APPLY MORNING AND EVENING FOR 7 DAYS. TO BE USED WITH CALCIPOTRIENE CREAM Quantity: 40 for 30 days Issued: 07/08/24 Filled: 07/08/24 Expires: 08/07/24 Refills: 0 Status: ACTIVE FUROSEMIDE 40MG TAB Directions: TAKE ONE TABLET BY MOUTH EVERY MORNING FOR FLUID Quantity: 30 for 30 days Issued: 06/30/24 Filled: 07/21/24 Expires: 07/01/25 Refills: 2 Status: ACTIVE GABAPENTIN 300MG CAP Directions: TAKE [...] 60 for 30 days Issued: 02/14/24 Filled: 07/13/24 Expires: 02/14/25 Refills: 7 Status: ACTIVE LOSARTAN 100MG TAB Directions: TAKE ONE TABLET BY MOUTH DAILY FOR BLOOD PRESSURE STOPPING THE HCTZ Quantity: 90 for 90 days Issued: 04/16/24 Filled: 04/16/24 Expires: 07/15/24 Refills: 0 Status: ACTIVE MAGNESIUM OXIDE 420MG TAB Directions: TAKE ONE TABLET BY MOUTH TWICE A DAY FOR SUPPLEMENT Quantity: 200 for 90 days Issued: 04/16/24 Filled: 04/16/24 Expires: 07/15/24 Refills: 0 Status: ACTIVE MUPIROCIN 2% OINT Directions: APPLY SMALL AMOUNT TO AFFECTED AREA DAILY TO PREVENT INFECTION -APPLY DAILY TO TREATMENT SITES AFTER CLEANING. THIS IS A TOPICAL ANTIBIOTIC. Quantity: 22 for 30 days Issued: 01/22/24 Filled: 07/13/24 Expires: 01/22/25 Refills: 6 Status: ACTIVE PRAZOSIN HCL 1MG CAP Directions: TAKE ONE CAPSULE BY MOUTH AT BEDTIME FOR NIGHTMARES. TAKE IN ADDITION TO 5 MG CAPSULE FOR TOTAL OF 6 MG AT BEDTIME Quantity: 90 for 90 days Issued: 04/15/24 Filled: 04/16/24 Expires: 07/14/24 Refills: 0 Status: ACTIVE TABLET CUTTER Directions: USE TO [...] 08/30/24 Expires: 06/11/25 Refills: 2 Status: ACTIVE/SUSP MIRTAZAPINE 15MG TAB Directions: TAKE ONE-HALF TABLET BY MOUTH AT BEDTIME FOR SLEEP Quantity: 45 for 90 days Issued: 04/15/24 Filled: 09/30/24 Expires: 04/16/25 Refills: 0 Status: ACTIVE/SUSP MULTIVIT/OPHTH AREDS2/LUTE/ZEAX CAP/TAB Directions: TAKE 1 SOFTGEL BY MOUTH TWICE A DAY AFTER MEALS FOR EYE HEALTH Quantity: 120 for 60 days Issued: 04/25/24 Filled: 08/13/24 Expires: 04/26/25 Refills: 3 Status: ACTIVE/SUSP PIOGLITAZONE HCL 30MG TAB Directions: TAKE ONE TABLET BY MOUTH DAILY FOR DIABETES Quantity: 90 for 90 days Issued: 02/14/24 Filled: 08/26/24 Expires: 02/14/25 Refills: 1 Status: ACTIVE/SUSP PRAZOSIN HCL 5MG CAP Directions: TAKE ONE CAPSULE BY MOUTH AT BEDTIME FOR NIGHTMARES Quantity: 90 for 90 days Issued: 04/15/24 Filled: 09/30/24 Expires: 04/16/25 Refills: 0 Status: ACTIVE/SUSP SERTRALINE HCL 100MG TAB Directions: [...] 08/30/24 Expires: 06/11/25 Refills: 2 Status: ACTIVE/SUSP MIRTAZAPINE 15MG TAB Directions: TAKE ONE-HALF TABLET BY MOUTH AT BEDTIME FOR SLEEP Quantity: 45 for 90 days Issued: 04/15/24 Filled: 09/30/24 Expires: 04/16/25 Refills: 0 Status: ACTIVE/SUSP MULTIVIT/OPHTH AREDS2/LUTE/ZEAX CAP/TAB Directions: TAKE 1 SOFTGEL BY MOUTH TWICE A DAY AFTER MEALS FOR EYE HEALTH Quantity: 120 for 60 days Issued: 04/25/24 Filled: 08/13/24 Expires: 04/26/25 Refills: 3 Status: ACTIVE/SUSP PIOGLITAZONE HCL 30MG TAB Directions: TAKE ONE TABLET BY MOUTH DAILY FOR DIABETES Quantity: 90 for 90 days Issued: 02/14/24 Filled: 08/26/24 Expires: 02/14/25 Refills: 1 Status: ACTIVE/SUSP PRAZOSIN HCL 5MG CAP Directions: TAKE ONE CAPSULE BY MOUTH AT BEDTIME FOR NIGHTMARES Quantity: 90 for 90 days Issued: 04/15/24 Filled: 09/30/24 Expires: 04/16/25 Refills: 0 Status: ACTIVE/SUSP SERTRALINE HCL 100MG TAB Directions: [...] 08/30/24 Expires: 06/11/25 Refills: 2 Status: ACTIVE/SUSP MIRTAZAPINE 15MG TAB Directions: TAKE ONE-HALF TABLET BY MOUTH AT BEDTIME FOR SLEEP Quantity: 45 for 90 days Issued: 04/15/24 Filled: 09/30/24 Expires: 04/16/25 Refills: 0 Status: ACTIVE/SUSP MULTIVIT/OPHTH AREDS2/LUTE/ZEAX CAP/TAB Directions: TAKE 1 SOFTGEL BY MOUTH TWICE A DAY AFTER MEALS FOR EYE HEALTH Quantity: 120 for 60 days Issued: 04/25/24 Filled: 08/13/24 Expires: 04/26/25 Refills: 3 Status: ACTIVE/SUSP PIOGLITAZONE HCL 30MG TAB Directions: TAKE ONE TABLET BY MOUTH DAILY FOR DIABETES Quantity: 90 for 90 days Issued: 02/14/24 Filled: 08/26/24 Expires: 02/14/25 Refills: 1 Status: ACTIVE/SUSP PRAZOSIN HCL 5MG CAP Directions: TAKE ONE CAPSULE BY MOUTH AT BEDTIME FOR NIGHTMARES Quantity: 90 for 90 days Issued: 04/15/24 Filled: 09/30/24 Expires: 04/16/25 Refills: 0 Status: ACTIVE/SUSP SERTRALINE HCL 100MG TAB Directions: TAKE ONE AND ONE-HALF TABLETS BY MOUTH EVERY MORNING FOR MOOD Quantity: 135 for 90 days Issued: 04/15/24 Filled: 09/12/24 Expires: 04/16/25 Refills: 0 Status: ACTIVE/SUSP CYANOCOBALAMIN 1000MCG TAB Directions: TAKE ONE TABLET BY MOUTH DAILY FOR VITAMIN B12 SUPPLEMENT Quantity: 90 for 90 days Issued: 07/16/23 Filled: 12/17/23 Expires: 07/16/24 Refills: 2 Status: DISCONTINUED FUROSEMIDE 40MG TAB Directions: TAKE ONE TABLET BY MOUTH EVERY MORNING FOR FLUID Quantity: 30 for 30 days Issued: 06/24/24 Filled: 06/25/24 Expires: 07/24/24 Refills: 0 Status: DISCONTINUED GABAPENTIN 300MG CAP [...] OTC medications as listed on CPRS medication list provided. Vet provided medication list to review prior to appointment and physician will update this medication list with any changes at time of visit. Yes *Printed copy of medication list provided to patient and reviewed. Yes *Explained to the patient the importance of keeping providers updated on medication changes and to carrying an updated list of medication at all times in case of an emergency situation. Yes /peyton/ NEISHA BANERJEE LPN Signed: 07/10/2024 08:35 NEISHA BANERJEE-[facility]
--- OUTSIDE RECORDS SUMMARY | 2024-07-24 21:33 | XMS_ITS | Continuity of Care Document ---
Author Name [facility] Organization [facility] Care Team Providers Care Professor Of Special Education Name Role Phone [facility] Unavailable Unavailable Problems Combined list of problems from Department of Defense and [facility] Affairs facilities. It does not include entries that were removed or entered in error. Problem Status Onset Date Problem Type Date of Resolution Comments Source Polyp of colon Active 12/10/19 14 Condition Mar 18, 2014 Entered By: HERMINIA PAYNE JR Comment: repeat colonoscopy due 12/2018 [facility] Allergic rhinitis * (ICD-9-CM 477.9) Active Condition [facility] Chronic post-traumatic stress disorder Active Condition [facility] Coronary artery disease Active Condition [facility] Diabetes mellitus (SNOMED CT 65677800) Active Condition [facility] Exposure to potentially hazardous substance Active Condition [facility] Gastro-esophageal reflux disease with esophagitis (SNOMED CT 291773247) Active Condition [facility] Gout * (ICD-9-CM 274.9) Active Condition [facility] Hypertension (SNOMED CT 56728532) Active Condition [facility] Lumbar Radiculopathy Active Condition [facility] Neoplasm of uncertain behavior of trachea, bronchus, 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 NEPHROLITHIASIS Active Condition [facility] Obstructive sleep apnea Active Condition [facility] Osteoarthritis (SNOMED CT 559076010) Active Condition [facility] Pseudophakia Active Condition [facility] Pulmonary hypertension Active Condition [facility] Sensorineural Hearing Loss * (ICD-9-CM 389.10) Active Condition [facility] Vitamin B12 deficiency (non anemic) Active Condition [facility] Alcoholism Inactive Condition 02/02/2022 [place] [facility] ANXIETY DISORDER NOS Inactive Condition 07/29/2003 [facility] BIPOLAR AFFECTIVE DISORDER Inactive Condition 07/29/2003 [facility] Dizziness Inactive Condition 08/18/2013 [facility] [facility] HYPERLIPIDEMIA Inactive Condition 09/18/2012 [facility]NE GUERRA [facility] Nonspecific (Abnormal) Findings on Radiological and other Examination of Lung Fi Inactive Condition 05/25/2014 [facility] Simple obesity Inactive Condition 09/18/2012 [facility] Diagnosis: ICD-10-CM Z71.89 Other specified counseling Active Diagnosis [facility] Diagnosis: ICD-10-CM R91.8 Other nonspecific abnormal finding of lung field Active Diagnosis [facility] Diagnosis: ICD-10-CM D48.5 Neoplasm of uncertain behavior of skin Active Diagnosis [facility] Diagnosis: ICD-10-CM F43.10 Post-traumatic stress disorder, unspecified Active Diagnosis [facility] Diagnosis: ICD-10-CM J20.9 Acute bronchitis, unspecified Active Diagnosis [facility] Diagnosis: ICD-10-CM I25.10 Athscl heart disease of [place] coronary artery w/o ang pctrs Active Diagnosis [facility] Diagnosis: ICD-10-CM K08.431 Partial loss of teeth due to caries, class I Active Diagnosis [facility] Diagnosis: ICD-10-CM Z71.2 Person consulting for explanation of exam or test findings Active Diagnosis [facility] Diagnosis: ICD-10-CM I11.9 Hypertensive 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 Active Diagnosis [facility] Diagnosis: ICD-10-CM B35.1 Tinea unguium Active Diagnosis [facility] Diagnosis: ICD-10-CM Z71.9 Counseling, unspecified Active Diagnosis [facility] Diagnosis: ICD-10-CM K03.6 Deposits [accretions] on teeth Active Diagnosis [facility] Diagnosis: ICD-10-CM E11.9 Type 2 diabetes mellitus without complications Active Diagnosis [facility] Diagnosis: ICD-10-CM R13.10 Dysphagia, unspecified Active Diagnosis [facility] Diagnosis: ICD-10-CM H35.371 Puckering of macula, right eye Active Diagnosis [facility] Diagnosis: ICD-10-CM R53.1 Weakness Active Diagnosis [facility] Diagnosis: ICD-10-CM K02.52 Dental caries on pit and fissure surfc penetrat into dentin Active Diagnosis [facility] Diagnosis: ICD-10-CM M67.441 Ganglion, right hand Active Diagnosis [facility] Diagnosis: ICD-10-CM M25.511 Pain in right shoulder Active Diagnosis [facility] Diagnosis: ICD-10-CM E11.40 Type 2 diabetes mellitus with diabetic neuropathy, unsp Active Diagnosis [facility] Diagnosis: ICD-10-CM M71.341 Other bursal cyst, right hand Active Diagnosis [facility] Diagnosis: ICD-10-CM Z01.818 Encounter for other preprocedural examination Active Diagnosis [facility] Diagnosis: ICD-10-CM M67.40 Ganglion, unspecified site Active Diagnosis [facility] Diagnosis: ICD-10-CM C44.320 Squamous cell carcinoma of skin of unspecified parts of face Active Diagnosis [facility] Diagnosis: ICD-10-CM G47.33 Obstructive sleep apnea (adult) (pediatric) Active Diagnosis [facility] Diagnosis: ICD-10-CM Z01.20 Encounter for dental exam and cleaning w/o abnormal findings Active Diagnosis [facility] Diagnosis: ICD-10-CM K03.81 Cracked tooth Active Diagnosis [facility] Diagnosis: ICD-10-CM M71.30 Other bursal cyst, unspecified site Active Diagnosis [facility] Diagnosis: ICD-10-CM I10 Essential (primary) hypertension Active Diagnosis [facility] Diagnosis: ICD-10-CM H60.92 Unspecified otitis externa, left ear Active Diagnosis [facility] Diagnosis: ICD-10-CM L03.211 Cellulitis of face Active Diagnosis [facility] Diagnosis: ICD-10-CM R13.12 Dysphagia, oropharyngeal phase Active Diagnosis [facility] Diagnosis: ICD-10-CM F43.12 Post-traumatic stress disorder, chronic Active Diagnosis [facility] Diagnosis: ICD-10-CM R47.02 Dysphasia Active Diagnosis [facility] Diagnosis: ICD-10-CM H35.372 Puckering of macula, left eye Active [facility] Diagnosis: ICD-10-CM L57.0 Actinic keratosis Active Diagnosis [facility] Diagnosis: ICD-10-CM M19.011 Primary osteoarthritis, right shoulder Active Diagnosis [facility] Medications Combined list of outpatient medications from Department of Defense and [facility] Affairs facilities.Medications provided include 1) outpatient medications from the last 15 months, and 2) patient-reported medications. Medication Details Route Status Patient Instructions Prescription Expires Prescription Number Last Dispense Date Ordering Provider Order Date Order Qty Source ALBUTEROL SO4 90MCG/ACTUA T (CFC-F) INHL,ORAL,8 .5GM INHALE 1 PUFF BY MOUTH EVERY 6 HOURS NEEDED FOR SHORTNES S OF BREATH RESPIR ATORY (INHAL ATION) 05/25/2023 [id number] WELLS,TRA VIS D 2023 1 [place] ALUMINUM HYDROXIDE 160MG/MAGNE SIUM CARBONATE 105MG TAB,CHEWABL E CHEW 1 TABLET BY MOUTH AFTER MEALS NEEDED FOR INDIGEST ION/REFL UX ORAL ACTIVE 10/26/2024 [id number] HILLENMEY ER,ELVIN H 2023 100 [place] AMLODIPINE BESYLATE 2.5MG TAB TAKE ONE TABLET BY MOUTH DAILY FOR HIGH BLOOD PRESSURE -DO NOT DRINK GRAPEFRU IT JUICE WHILE ON THIS DRUG ORAL ACTIVE 08/05/2024 [id number] 5 STEINBERG,NA NCY K 2024 90 [place] [facility] ASPIRIN 81MG TAB,EC TAKE ONE TABLET BY MOUTH DAILY FOR HEART ORAL SUSPEND ED 06/21/2025 [id number] STEINBERG,NA NCY K 2024 90 [place] [facility] ATORVASTATI N CA 80MG TAB TAKE ONE TABLET BY MOUTH DAILY FOR CHOLESTE ROL -DO NOT DRINK GRAPEFRU IT JUICE WHILE ON THIS DRUG ORAL SUSPEND ED 06/11/2025 [id number] 5 STEINBERG,NA NCY K 2024 90 [place] AZITHROMYCI N 250MG TAB TAKE TWO TABLETS BY MOUTH DAILY FOR 1 DAY, THEN TAKE ONE TABLET DAILY FOR 4 DAYS FOR BRONCHIT IS ORAL 05/25/2023 [id number] 4 JOHN COATS 2023 6 [place] CALCIPOTRIE NE 0.005% CREAM,TOP APPLY SMALL AMOUNT TO AFFECTED AREA TWICE A DAY -APPLY TO SUN DAMAGED AREAS. APPLY MORNING AND EVENING FOR 7 DAYS. TO BE USED WITH FLUOROUR ACIL CREAM -APPLY TO SUN DAMAGED AREAS. APPLY MORNING AND EVENING FOR 7 DAYS. TO BE USED WITH FLUOROUR ACIL CREAM TOPICA L ACTIVE 08/07/2024 [id number] 5 DEWAYNE ROGERS 2024 60 [place] CEFUROXIME AXETIL 500MG TAB TAKE ONE TABLET BY MOUTH TWICE A DAY FOR EAR OR THROAT INFECTIO N ORAL 11/30/2023 [id number] 4 Lisandro JOVEL 2023 20 [place] CEPHALEXIN 500MG CAP TAKE ONE CAPSULE BY MOUTH THREE TIMES A DAY FOR SKIN OR SOFT TISSUE INFECTIO N ORAL 03/29/2024 [id number] 4 Darshana HARRIS 2023 21 [place] CHOLECALCIF CIERRA 25MCG (1,000UNIT) TAB TAKE FOUR TABLETS BY MOUTH DAILY FOR VITAMIN D SUPPLEME NT ORAL SUSPEND ED 02/14/2025 [id number] 5 MARYAN,GRICELDA MARROQUINY K 2023 400 [place] [facility] CHOLECALCIF CIERRA 25MCG (1,000UNIT) TAB TAKE FOUR TABLETS BY MOUTH DAILY FOR VITAMIN D SUPPLEME NT ORAL DISCONT INUED 01/11/2024 [id number] 4 GRICELDA STEINBERG K 2022 400 [place] [facility] CLOPIDOGREL BISULFATE 75MG TAB TAKE ONE TABLET BY MOUTH DAILY TO THIN BLOOD ORAL SUSPEND ED 06/21/2025 [id number] 5 GRICELDA STEINBERG K 2024 90 [place] [facility] CLOTRIMAZOL E 1% SOLN,TOP APPLY SMALL AMOUNT TO AFFECTED AREA TWICE A DAY FOR FUNGAL INFECTIO N TOPICA L 07/13/2024 [id number] 4 Oksana MUNOZ LEXANDER 2023 30 [place] [facility] CYANOCOBALA MIN 1000MCG TAB TAKE ONE TABLET BY MOUTH DAILY FOR VITAMIN B12 SUPPLEME NT ORAL SUSPEND ED 02/14/2025 [id number] 5 GRICELDA STEINBERG K 2023 90 [place] [facility] CYANOCOBALA MIN 1000MCG TAB TAKE ONE TABLET BY MOUTH DAILY FOR VITAMIN B12 SUPPLEME NT ORAL DISCONT INUED 07/16/2024 [id number] 4 MARYAN,GRICELDA PICKARD K 2023 90 [place] [facility] CYANOCOBALA MIN 1000MCG TAB TAKE ONE TABLET BY MOUTH DAILY FOR VITAMIN B12 SUPPLEME NT ORAL DISCONT INUED 01/12/2024 [id number] GRICELDA STEINBERG K 2022 90 [place] [facility] DICLOFENAC NA 1% GEL,TOP APPLY SMALL AMOUNT TO AFFECTED AREA EVERY 6 HOURS NEEDED FOR SHOULDER PAIN TOPICA L SUSPEND ED 02/14/2025 [id number] 5 GRICELDA STEINBERG K 2023 300 [place] [facility] DICLOFENAC NA 1% GEL,TOP APPLY SMALL AMOUNT TO AFFECTED AREA EVERY 6 HOURS NEEDED FOR SHOULDER PAIN TOPICA L DISCONT INUED 01/11/2024 [id number] 4 GRICELDA STEINBERG K 2022 300 [place] [facility] DOXYCYCLINE HYCLATE 100MG TAB TAKE ONE TABLET BY MOUTH TWICE A DAY FOR SKIN OR EYE CONDITIO N ORAL 11/26/2023 [id number] 4 Alex KIM 2023 14 [place] FAMOTIDINE 40MG TAB TAKE ONE TABLET BY MOUTH DAILY FOR STOMACH ORAL DISCONT INUED BY PROVIDE R 01/11/2024 [id number] 4 GRICELDA STEINBERG K 2022 90 [place] [facility] FLUOROURACI L 5% CREAM,TOP APPLY SMALL AMOUNT TO AFFECTED AREA TWICE A DAY -APPLY TO SUN DAMAGED AREAS. APPLY MORNING AND EVENING FOR 7 DAYS. TO BE USED WITH CALCIPOT RIENE CREAM -APPLY TO SUN DAMAGED AREAS. APPLY MORNING AND EVENING FOR 7 DAYS. TO BE USED WITH CALCIPOT RIENE CREAM TOPICA L ACTIVE 08/07/2024 [id number] 5 DEWAYNE ROGERS 2024 40 [place] FLUTICASONE PROPIONATE 50MCG/SPRAY SOLN,NASAL, 16GM USE 2 SPRAYS IN EACH NOSTRIL DAILY FOR NASAL ALLERGY NASAL SUSPEND ED 02/14/2025 [id number] 5 GRICELDA STEINBERG K 2023 3 [place] [facility] FLUTICASONE PROPIONATE 50MCG/SPRAY SOLN,NASAL, 16GM USE 2 SPRAYS IN EACH NOSTRIL DAILY FOR NASAL ALLERGY NASAL DISCONT INUED 01/11/2024 [id number] 4 GRICELDA STEINBERG K 2022 3 [place] [facility] FUROSEMIDE 20MG TAB TAKE ONE TABLET BY MOUTH EVERY MORNING FOR FLUID ORAL DISCONT INUED (EDIT) 07/06/2024 [id number] 5 GRICELDA STEINBERG K 2024 60 [place] [facility] [place] FUROSEMIDE 40MG TAB TAKE ONE TABLET BY MOUTH EVERY MORNING FOR FLUID ORAL ACTIVE 07/01/2025 [id number] 5 HASNIE,AM MAR A 2024 30 [place] FUROSEMIDE 40MG TAB TAKE ONE TABLET BY MOUTH EVERY MORNING FOR FLUID ORAL DISCONT INUED 07/24/2024 [id number] 5 GRICELDA STEINBERG K 2024 30 [place] [facility] GABAPENTIN 300MG CAP TAKE ONE CAPSULE BY MOUTH EVERY MORNING AND TAKE ONE CAPSULE AT NOON AND TAKE TWO CAPSULES EVERY EVENING FOR NERVE PAIN FOR PAIN ORAL ACTIVE 07/23/2025 [id number] 5 GRICELDA STEINBERG K 2024 120 [place] [facility] GABAPENTIN 300MG CAP TAKE ONE CAPSULE BY MOUTH EVERY MORNING AND TAKE ONE CAPSULE AT NOON AND TAKE TWO CAPSULES EVERY EVENING FOR PAIN ORAL DISCONT INUED (EDIT) 02/14/2025 [id number] 5 GRICELDA STEINBERG K 2023 120 [place] [facility] [place] GABAPENTIN 300MG CAP TAKE ONE CAPSULE BY MOUTH EVERY MORNING AND TAKE ONE CAPSULE AT NOON AND TAKE TWO CAPSULES EVERY EVENING FOR PAIN ORAL DISCONT INUED 10/23/2024 [id number] 4 GRICELDA STEINBERG 2023 120 [place] GABAPENTIN 300MG CAP TAKE ONE CAPSULE BY MOUTH EVERY MORNING AND TAKE ONE CAPSULE AT NOON AND TAKE TWO CAPSULES EVERY EVENING FOR PAIN ORAL DISCONT INUED (EDIT) 06/26/2024 [id number] 4 GRICELDA STEINBERG K 2023 120 [place] [facility] HC 1%/N-MYCIN 3.5MG/POLYM YX [id number]/ML SOLN,OTIC INSTILL 4 DROPS IN LEFT EAR THREE TIMES A DAY FOR INFECTIO N AURICU LAR (OTIC) 11/30/2023 [id number] 4 Lisandro JOVEL 2023 10 [place] HYDROCHLORO THIAZIDE 12.5MG/LOSA RTAN POTASSIUM 100MG TAB TAKE 1 TABLET BY MOUTH DAILY FOR BLOOD PRESSURE /HEART ORAL DISCONT INUED 02/14/2025 [id number] 4 STEINBERG,NA NCY K 2023 90 [place] [facility] [place] HYDROCHLORO THIAZIDE 12.5MG/LOSA RTAN POTASSIUM 100MG TAB TAKE 1 TABLET BY MOUTH DAILY FOR BLOOD PRESSURE /HEART ORAL DISCONT INUED 07/16/2024 [id number] 4 STEINBERG,NA NCY K 2023 90 [place] [facility] HYDROCHLORO THIAZIDE 12.5MG/LOSA RTAN POTASSIUM 100MG TAB TAKE 1 TABLET BY MOUTH DAILY FOR BLOOD PRESSURE /HEART ORAL DISCONT INUED 01/11/2024 [id number] STEINBERG,NA LOPEZY K 2022 90 [place] [facility] LIDOCAINE 5% PATCH APPLY 2 PATCHES TO SKIN DAILY FOR PAIN -LEAVE ON 12 HOURS, THEN REMOVE FOR 12 HOURS TRANSD ERMAL ACTIVE 02/14/2025 [id number] 5 MARYANNA LOPEZY K 2023 60 [place] [facility] LIDOCAINE 5% PATCH APPLY 2 PATCHES TO SKIN DAILY FOR PAIN -LEAVE ON 12 HOURS, THEN REMOVE FOR 12 HOURS TRANSD ERMAL DISCONT INUED 01/11/2024 [id number] MRAYANNA NEERAJ K 2022 60 [place] [facility] LORATADINE 10MG TAB TAKE ONE TABLET BY MOUTH DAILY FOR ALLERGIE S ORAL SUSPEND ED 02/14/2025 [id number] 5 GRICELDA STEINBERG K 2023 90 [place] [facility] LORATADINE 10MG TAB TAKE ONE TABLET BY MOUTH DAILY FOR ALLERGIE S ORAL DISCONT INUED 07/16/2024 [id number] 4 GRICELDA STEINBERG K 2023 90 [place] [facility] LORATADINE 10MG TAB TAKE ONE TABLET BY MOUTH DAILY FOR ALLERGIE S ORAL DISCONT INUED 01/11/2024 [id number] 4 MARYAN,NA LOPEZY K 2022 90 [place] [facility] LOSARTAN POTASSIUM 100MG TAB TAKE ONE TABLET BY MOUTH DAILY FOR BLOOD PRESSURE STOPPING THE HCTZ ORAL 07/15/2024 [id number] 5 Alex KIM 2024 90 [place] MAGNESIUM OXIDE 420MG TAB TAKE ONE TABLET BY MOUTH TWICE A DAY FOR SUPPLEME NT ORAL 07/15/2024 [id number] 5 Alex KIM 2024 200 [place] METFORMIN HCL 1000MG TAB TAKE ONE TABLET BY MOUTH TWICE A DAY FOR DIABETES ORAL SUSPEND ED 02/14/2025 [id number] 5 GRICELDA STEINBERG K 2023 180 [place] [facility] METFORMIN HCL 1000MG TAB TAKE ONE TABLET BY MOUTH TWICE A DAY FOR DIABETES ORAL DISCONT INUED 01/11/2024 [id number] 4 GRICELDA STEINBERG K 2022 180 [place] [facility] METOPROLOL SUCCINATE 50MG TAB,SA TAKE ONE-HALF TABLET BY MOUTH DAILY FOR BLOOD PRESSURE /HEART ORAL SUSPEND ED 06/11/2025 [id number] 5 GRICELDA STEINBERG K 2024 45 [place] MIRTAZAPINE 15MG TAB TAKE ONE-HALF TABLET BY MOUTH AT BEDTIME FOR SLEEP ORAL SUSPEND ED 04/16/2025 [id number] 5 PATRICK CAGE 2024 45 [place] [facility] [place] MIRTAZAPINE 15MG TAB TAKE ONE-HALF TABLET BY MOUTH AT BEDTIME FOR SLEEP ORAL DISCONT INUED 12/27/2024 [id number] 4 PATRICK CAGE 2023 45 [place] [facility] [place] MIRTAZAPINE 15MG TAB TAKE ONE-HALF TABLET BY MOUTH AT BEDTIME FOR SLEEP ORAL DISCONT INUED 12/26/2023 [id number] 4 PATRICK CAGE 2023 45 [place] [facility] [place] MIRTAZAPINE 15MG TAB TAKE ONE-HALF TABLET BY MOUTH AT BEDTIME FOR SLEEP ORAL DISCONT INUED 09/26/2023 [id number] 4 BEN HERNÁNDEZ ICIA T 2023 45 [place] [facility] MIRTAZAPINE 15MG TAB TAKE ONE-HALF TABLET BY MOUTH AT BEDTIME FOR SLEEP ORAL DISCONT INUED 08/27/2023 [id number] 4 BEN HERNÁNDEZ ICIA T 2023 45 [place] [facility] MULTIVIT/OP HTH AREDS2/LUTE IN/ZEAXANTH IN CAP/TAB TAKE 1 SOFTGEL BY MOUTH TWICE A DAY AFTER MEALS FOR EYE HEALTH ORAL SUSPEND ED 04/26/2025 [id number] 5 Jennifer FIGUEROA 2024 120 [place] MUPIROCIN 2% OINT,TOP APPLY SMALL AMOUNT TO AFFECTED AREA DAILY TO PREVENT INFECTIO N -APPLY DAILY TO TREATMEN T SITES AFTER CLEANING . THIS IS A TOPICAL ANTIBIOT IC. -APPLY DAILY TO TREATMEN T SITES AFTER CLEANING . THIS IS A TOPICAL ANTIBIOT IC. TOPICA L ACTIVE 01/22/2025 [id number] 5 HUGH SIGALA P 2023 22 [place] PANTOPRAZOL E NA 40MG TAB,EC TAKE ONE TABLET BY MOUTH TWICE A DAY 30 MINUTES BEFORE A MEAL FOR STOMACH -TAKE ON AN EMPTY STOMACH. ORAL 06/26/2024 [id number] ELVIN VALLADARES H 2023 180 [place] PIOGLITAZON E HCL 30MG TAB TAKE ONE TABLET BY MOUTH DAILY FOR DIABETES ORAL SUSPEND ED 02/14/2025 [id number] 5 GRICELDA STEINBERGY K 2023 90 [place] [facility] PIOGLIT[facility] 30MG TAB TAKE ONE TABLET BY MOUTH DAILY FOR DIABETES ORAL DISCONT INUED 01/11/2024 [id number] 4 MARYAN,NA NCY K 2022 90 [place] [facility] PRAZOSIN HCL 1MG CAP TAKE ONE CAPSULE BY MOUTH AT BEDTIME FOR NIGHTMAR ES. TAKE IN ADDITION TO 5 MG CAPSULE FOR TOTAL OF 6 MG AT BEDTIME ORAL ACTIVE 10/09/2024 [id number] 5 CAGEPATRICK 2024 90 [place] [facility] PRAZOS[facility] 1MG CAP TAKE ONE CAPSULE BY MOUTH AT BEDTIME FOR NIGHTMAR ES. TAKE IN ADDITION TO 5 MG CAPSULE FOR TOTAL OF 6 MG AT BEDTIME ORAL DISCONT INUED 07/14/2024 [id number] PATRICK CAGE 2024 90 [place] [facility] PRAZOSIN HCL 5MG CAP TAKE ONE CAPSULE BY MOUTH AT BEDTIME FOR NIGHTMAR ES ORAL SUSPEND ED 04/16/2025 [id number] 5 PATRICK CAGE 2024 90 [place] [facility] PRAZOSIN HCL 5MG CAP TAKE ONE CAPSULE BY MOUTH AT BEDTIME FOR NIGHTMAR ES ORAL DISCONT INUED 12/27/2024 [id number] 4 PATRICK CAGE 2023 90 [place] [facility] PRAZOSIN HCL 5MG CAP TAKE ONE CAPSULE BY MOUTH AT BEDTIME FOR NIGHTMAR ES ORAL DISCONT INUED 12/26/2023 [id number] 4 PATRICK CAGE 2023 90 [place] [facility] PRAZOSIN HCL 5MG CAP TAKE ONE CAPSULE BY MOUTH AT BEDTIME FOR NIGHTMAR ES ORAL DISCONT INUED 09/26/2023 [id number] 4 BEN HERNÁNDEZ 2023 90 [place] [facility] PRAZOS[facility] 5MG CAP TAKE ONE CAPSULE BY MOUTH AT BEDTIME FOR NIGHTMAR ES ORAL DISCONT INUED 08/27/2023 [id number] 4 BEN HERNÁNDEZ T 2023 90 [place] [facility] PREDNISONE 20MG TAB TAKE ONE TABLET BY MOUTH DAILY FOR INFLAMMA TION ORAL 05/25/2023 [id number] JOHN COATS 2023 5 [place] SERTRALINE HCL 100MG TAB TAKE ONE AND ONE-HALF TABLETS BY MOUTH EVERY MORNING FOR MOOD ORAL SUSPEND ED 04/16/2025 [id number] 5 PATRICK CAGE 2024 135 [place] [facility] SERTRALINE HCL 100MG TAB TAKE ONE AND ONE-HALF TABLETS BY MOUTH EVERY MORNING FOR MOOD ORAL DISCONT INUED 12/27/2024 [id number] 4 PATRICK CAGE 2023 135 [place] [facility] SERTRALINE HCL 100MG TAB TAKE ONE AND ONE-HALF TABLETS BY MOUTH EVERY MORNING FOR MOOD ORAL DISCONT INUED 12/26/2023 [id number] 4 PATRICK CAGE 2023 135 [place] [facility] SERTRALINE HCL 100MG TAB TAKE ONE AND ONE-HALF TABLETS BY MOUTH EVERY MORNING FOR MOOD ORAL DISCONT INUED 10/31/2023 [id number] 4 BEN HERNÁNDEZ 2023 135 [place] [facility] SERTRALINE HCL 100MG TAB TAKE ONE AND ONE-HALF TABLETS BY MOUTH EVERY MORNING FOR MOOD ORAL DISCONT INUED 09/26/2023 [id number] BEN HERNÁNDEZ T 2023 135 [place] [facility] [place] SERTRALINE HCL 100MG TAB TAKE ONE TABLET BY MOUTH EVERY MORNING FOR MOOD ORAL DISCONT INUED (EDIT) 08/27/2023 [id number] 4 BEN HERNÁNDEZ T 2023 90 [place] [facility] TRAMADOL HCL 50MG TAB TAKE ONE TABLET BY MOUTH EVERY 6 HOURS NEEDED FOR PAIN ORAL 03/01/2024 [id number] KIMBERLY TERRELL 2023 20 [place] [facility] TRIAMCINOLO NE ACETONIDE 0.1% OINT,TOP APPLY SMALL AMOUNT TO AFFECTED AREA TWICE A DAY FOR SKIN RASH JAYY Torres ACTIVE 11/29/2024 [id number] COREY VOGT 2023 30 [place] [facility] TRIAMCINOLO NE ACETONIDE 0.1% OINT,TOP APPLY SMALL AMOUNT TO AFFECTED AREA TWICE A DAY FOR SKIN RASH JAYY CONDE INUED 11/28/2024 [id number] COREY VOGT 2023 30 [place] [facility] Allergies, Adverse Reactions, Alerts Combined list of allergies from Department of [facility] and [facility] facilities. It does not include entries that were removed or entered in error. Substance Category Reaction Severity Reaction type Status Date Reported Comments Source FOSINOPRIL Propensity to adverse reactions to drug (finding) active 5 [facility] LISINOPRIL Propensity to adverse reactions to drug (finding) active 5 [facility] PERCOCET Propensity to adverse reactions to drug (finding) Dizziness , Nausea and vomiting active 7 [facility] Immunizations Combined list of available immunizations from the Department of [facility] and [facility] facilities. Immunization Series Date Given Administered By Site Reaction Lot Number CVX Code Drug Process Chemist Status Comments Source TD (ADULT), 5 LF TETANUS TOXOID, PRESERVATIVE FREE, ADSORBED 2024 HERNANDO FELDMAN RIGHT DELTO ID [id number] 113 complet ed ADMINISTE [facility], [place] [facility] ZOSTER RECOMBINANT 2024 HERNANDO FELDMAN LEFT DELTO ID [id number] 187 complet ed ADMINISTE [facility], [place] [facility] INFLUENZA, HIGH-DOSE, TRIVALENT, PF 2023 YOBANI LUO LEFT DELTO ID [id number] 135 complet ed ADMINISTE [facility], [place] [facility] INFLUENZA, HIGH-DOSE, QUADRIVALENT 2022 JUANPABLO CIFUENTES LEFT DELTO ID [id number] 197 complet ed Completed Series, ADMINISTE RED AT OR, [place] [facility] PNEUMOCOCCAL CONJUGATE PCV20, POLYSACCHARID E [id number] CONJUGATE, ADJUVANT, PF 2021 216 complet ed [place] [facility] INFLUENZA, INJECTABLE, QUADRIVALENT, PRESERVATIVE FREE 2021 150 complet ed [place] [facility] INFLU[facility], INJECTABLE, QUADRIVALENT, PRESERVATIVE FREE 2018 150 complet ed [place] [facility] HEP A, ADULT 2018 52 complet ed [place] [facility] PNEUMOCOCCAL POLYSACCHARID E [id number] 2018 33 complet ed [place] [facility] ZOSTER RECOMBINANT 2 2018 187 complet ed [place] [facility]P A, ADULT 2018 52 complet ed [place] [facility] INFLUENZA, SEASONAL, INJECTABLE 2018 141 complet ed [place] [facility] INFLU[facility]ZA A & B (HISTORICAL) 2015 88 complet ed [place] [facility] [id number] (HISTORICAL) 2015 133 complet ed [place] [facility] INFLUENZA A & B (HISTORICAL) 2014 88 complet ed [place] DTP 2013 01 complet ed [place] [facility] TDAP 2013 115 complet ed [place] [facility] FLU,3 YRS (HISTORICAL) 2011 88 complet ed [place] [facility] FLU,3 YRS (HISTORICAL) 2008 88 complet ed [place] [facility] FLU,3 YRS (HISTORICAL) 2007 88 complet ed [place] [facility] TD(ADULT) UNSPECIFIED FORMULATION 2005 BLAYNE PHAM W 139 complet ed [place] [facility] PNEUMOCOCCAL, UNSPECIFIED FORMULATION 2003 BLAYNE PHAM W 109 complet ed [place] [facility] INFLUENZA A & B (HISTORICAL) 2003 88 complet ed no [place] [facility] TD (ADULT), 2 LF TETANUS TOXOID, PRESERVATIVE FREE, ADSORBED 1 1996 09 complet ed HISTORICA L INFORMATI ON - FROM OTHER REGISTRY, [place] [facility] Results Combined list of recent chemistry, hematology and other laboratory results from [facility] [employer] and [facility], ranging from 15 months to all on record, depending upon the facility. Order Name Results Value Reference Range Date Interpretation Specimen Comments Source BNP (STODDARD) NATRIURETI C PEPTIDE B [MASS/VOLU ME] IN SERUM OR PLASMA 22 pg/mL 0 - 100 06/30 Specimen Type: PLASMA Comment: BNP results less than or equal to 100 pg/ml are representat amarilys of normal values in patients without CHF. BNP results greater than 100 pg/ml are considered abnormal and suggestive of CHF. Higher BNP concentrati ons in the first 72 hours after Acute Coronary Syndrome are associated with an increased risk of , myocardial infarction and CHF. Ordering Provider: TRE SAINZ Report Released Date/Time: Jun 30, 2024 03:21 PM Reporting Lab: [place] [phone] Performing Lab: [place] [address] [place] [address] CBC/PLT LEUKOCYTES [#/VOLUME] IN BLOOD BY AUTOMATED COUNT 7.2 10*3/uL 5.0 - 10.0 06/30 Specimen Type: BLOOD No comment entered. Ordering Provider: TRE SAINZ Report Released Date/Time: Jun 30, 2024 03:21 PM Reporting Lab: [place] [phone] Performing Lab: [place] [address] [place] [address] CBC/PLT ERYTHROCYT ES [#/VOLUME] IN BLOOD BY AUTOMATED COUNT 4.85 10*6/uL 4.6 - 6.2 06/30 Specimen Type: BLOOD No comment entered. Ordering Provider: TRE SAINZ Report Released Date/Time: Jun 30, 2024 03:21 PM Reporting Lab: [place] [phone] Performing Lab: [place] [id number] [place] [address] CBC/PLT HEMOGLOBIN [MASS/VOLU ME] IN BLOOD 14.7 g/dL 14.0 - 18.0 06/30 Specimen Type: BLOOD No comment entered. Ordering Provider: TRE SAINZ Report Released Date/Time: Jun 30, 2024 03:21 PM Reporting Lab: [place] [phone] Performing Lab: [address] CBC/PLT HEMATOCRIT [VOLUME FRACTION] OF BLOOD BY AUTOMATED COUNT 43.8 42.0 - 52.0 06/30 Specimen Type: BLOOD No comment entered. Ordering Provider: TRE SAINZ Report Released Date/Time: Jun 30, 2024 03:21 PM Reporting Lab: [place] [id number] Performing Lab: [address] CBC/PLT MCV [ENTITIC VOLUME] BY AUTOMATED COUNT 90.3 fL 80.0 - 94.0 06/30 Specimen Type: BLOOD No comment entered. Ordering Provider: TRE SAINZ Report Released Date/Time: Jun 30, 2024 03:21 PM Reporting Lab: [place] [phone] Performing Lab: [address] CBC/PLT MCH [ENTITIC MASS] BY AUTOMATED COUNT 30.3 pg 27.0 - 31.0 06/30 Specimen Type: BLOOD No comment entered. Ordering Provider: TRE SAINZ Report Released Date/Time: Jun 30, 2024 03:21 PM Reporting Lab: [place] [phone] Performing Lab: [place] [id number] CBC/PLT MCHC [MASS/VOLU ME] BY AUTOMATED COUNT 33.6 g/dL 32.0 - 36.0 06/30 Specimen Type: BLOOD No comment entered. Ordering Provider: TRE SAINZ Report Released Date/Time: Jun 30, 2024 03:21 PM Reporting Lab: [address] [address] Performing Lab: [address] [phone] [place] [address] CBC/PLT PLATELETS [#/VOLUME] IN BLOOD 235 10*3/uL 150 - 450 06/30 Specimen Type: BLOOD No comment entered. Ordering Provider: TRE SAINZ Report Released Date/Time: Jun 30, 2024 03:21 PM Reporting Lab: [address] [address] Performing Lab: [phone] [place] [address] CBC/PLT PLATELET MEAN VOLUME [ENTITIC VOLUME] IN BLOOD 10.6 fL 9.0 - 13.1 06/30 Specimen Type: BLOOD No comment entered. Ordering Provider: TRE SAINZ Report Released Date/Time: Jun 30, 2024 03:21 PM Reporting Lab: [address] [address] Performing Lab: [phone] [place] [address] CBC/PLT ERYTHROCYT E DISTRIBUTI ON WIDTH [ENTITIC VOLUME] BY AUTOMATED COUNT 14.8 11.0 - 16.0 06/30 Specimen Type: BLOOD No comment entered. Ordering Provider: TRE SAINZ Report Released Date/Time: Jun 30, 2024 03:21 PM Reporting Lab: [address] [address] Performing Lab: [address] [address] [facility] CBC/PLT NUCLEATED ERYTHROCYT ES/100 ERYTHROCYT ES IN BLOOD 0.0 0.0 - 0.0 06/30 Specimen Type: BLOOD No comment entered. Ordering Provider: TRE SAINZ Report Released Date/Time: Jun 30, 2024 03:21 PM Reporting Lab: [address] [phone] Performing Lab: [address] [address] [facility] CREATININE [MASS/VOLU ME] IN SERUM OR PLASMA 1.43 mg/dL 0.72 - 1.25 06/30 H Specimen Type: PLASMA Comment: Estimated Glomerular Filtration Rate (eGFR) calculated using the 2020 Chronic Kidney Disease-Epi demiology (CKD-EPI) Collaborati on creatinine equation; units of measure are mL/min/1.73 m2. Results are only valid for adults (>=18 years) whose serum creatinine is in a steady state. eGFR calculation s are not valid for patients with acute kidney injury and for patients on dialysis. Creatinine- based estimates of kidney function may also be inaccurate in patients with reduced creatinine generation due to decreased muscle mass (e.g., malnutritio n, severe hypoalbumin emia, sarcopenia, chronic neuromuscul ar disease, amputations , severe heart failure or liver disease) and in patients with increased creatinine generation due to increased muscle mass (e.g., muscle builders, anabolic steroids) or increased dietary intake. As drug clearance is proportiona l to total GFR and not GFR indexed to body surface area (BSA), in individuals with a BSA substantial ly different than 1.73 m2, drug dosing should be based on the reported eGFR value de-indexed from BSA by multiplying by the individual' s BSA and dividing by 1.73. CKD is diagnosed based on abnormaliti es of kidney structure or function, present for >3 months, with implication s for health and disease. CKD is classified and staged based on cause, eGFR and albuminuria (quantified as urine albumin to creatinine ratio). An eGFR >60 mL/min/1.73 m2 in the absence of increased urine albumin excretion or structural abnormaliti es does not represent CKD. eGFR CKD Interpretat ion (mL/min/1.7 3 m2) stage >=90 G1 Normal 60-89 G2 Mild decrease 45-59 G3A Mild to moderate decrease 30-44 G3B Moderate to severe decrease 15-29 G4 Severe decrease <15 G5 Kidney failure Ordering Provider: TRE SAINZ Report Released Date/Time: Jun 30, 2024 03:21 PM Reporting Lab: [facility] [facility] [address] [facility] [address] Performing Lab: [facility] [address] [facility] [address] DANNY HODGE [facility] PANEL 1 UREA NITROGEN [MASS/VOLU ME] IN SERUM OR PLASMA 22 mg/dL 06/30 Specimen Type: PLASMA Comment: Estimated Glomerular Filtration Rate (eGFR) calculated using the 2020 Chronic Kidney Disease-Epi demiology (CKD-EPI) Collaborati on creatinine equation; units of measure are mL/min/1.73 m2. Results are only valid for adults (>=18 years) whose serum creatinine is in a steady state. eGFR calculation s are not valid for patients with acute kidney injury and for patients on dialysis. Creatinine- based estimates of kidney function may also be inaccurate in patients with reduced creatinine generation due to decreased muscle mass (e.g., malnutritio n, severe hypoalbumin emia, sarcopenia, chronic neuromuscul ar disease, amputations , severe heart failure or liver disease) and in patients with increased creatinine generation due to increased muscle mass (e.g., muscle builders, anabolic steroids) or increased dietary intake. As drug clearance is proportiona l to total GFR and not GFR indexed to body surface area (BSA), in individuals with a BSA substantial ly different than 1.73 m2, drug dosing should be based on the reported eGFR value de-indexed from BSA by multiplying by the individual' s BSA and dividing by 1.73. CKD is diagnosed based on abnormaliti es of kidney structure or function, present for >3 months, with implication s for health and disease. CKD is classified and staged based on cause, eGFR and albuminuria (quantified as urine albumin to creatinine ratio). An eGFR >60 mL/min/1.73 m2 in the absence of increased urine albumin excretion or structural abnormaliti es does not represent CKD. eGFR CKD Interpretat ion (mL/min/1.7 3 m2) stage >=90 G1 Normal 60-89 G2 Mild decrease 45-59 G3A Mild to moderate decrease 30-44 G3B Moderate to severe decrease 15-29 G4 Severe decrease <15 G5 Kidney failure Ordering Provider: TRE SAINZ Report Released Date/Time: Jun 30, 2024 03:21 PM Reporting Lab: [place] [address] [address] Performing Lab: [facility] [address] [facility] [address] [facility] PANEL 1 GLUCOSE [MASS/VOLU ME] IN SERUM OR PLASMA 164 mg/dL 74 - 100 06/30 H Specimen Type: PLASMA Comment: Estimated Glomerular Filtration Rate (eGFR) calculated using the 2020 Chronic Kidney Disease-Epi demiology (CKD-EPI) Collaborati on creatinine equation; units of measure are mL/min/1.73 m2. Results are only valid for adults (>=18 years) whose serum creatinine is in a steady state. eGFR calculation s are not valid for patients with acute kidney injury and for patients on dialysis. Creatinine- based estimates of kidney function may also be inaccurate in patients with reduced creatinine generation due to decreased muscle mass (e.g., malnutritio n, severe hypoalbumin emia, sarcopenia, chronic neuromuscul ar disease, amputations , severe heart failure or liver disease) and in patients with increased creatinine generation due to increased muscle mass (e.g., muscle builders, anabolic steroids) or increased dietary intake. As drug clearance is proportiona l to total GFR and not GFR indexed to body surface area (BSA), in individuals with a BSA substantial ly different than 1.73 m2, drug dosing should be based on the reported eGFR value de-indexed from BSA by multiplying by the individual' s BSA and dividing by 1.73. CKD is diagnosed based on abnormaliti es of kidney structure or function, present for >3 months, with implication s for health and disease. CKD is classified and staged based on cause, eGFR and albuminuria (quantified as urine albumin to creatinine ratio). An eGFR >60 mL/min/1.73 m2 in the absence of increased urine albumin excretion or structural abnormaliti es does not represent CKD. eGFR CKD Interpretat ion (mL/min/1.7 3 m2) stage >=90 G1 Normal 60-89 G2 Mild decrease 45-59 G3A Mild to moderate decrease 30-44 G3B Moderate to severe decrease 15-29 G4 Severe decrease <15 G5 Kidney failure Ordering Provider: TRE SAINZ Report Released Date/Time: Jun 30, 2024 03:21 PM Reporting Lab: [place] [address] [address] Performing Lab: [place] HERNAN[facility] [address] [address] [facility] PANEL 1 SODIUM [MOLES/VOL UME] IN SERUM OR PLASMA 139 mmol/L 136 - 145 06/30 Specimen Type: PLASMA Comment: Estimated Glomerular Filtration Rate (eGFR) calculated using the 2020 Chronic Kidney Disease-Epi demiology (CKD-EPI) Collaborati on creatinine equation; units of measure are mL/min/1.73 m2. Results are only valid for adults (>=18 years) whose serum creatinine is in a steady state. eGFR calculation s are not valid for patients with acute kidney injury and for patients on dialysis. Creatinine- based estimates of kidney function may also be inaccurate in patients with reduced creatinine generation due to decreased muscle mass (e.g., malnutritio n, severe hypoalbumin emia, sarcopenia, chronic neuromuscul ar disease, amputations , severe heart failure or liver disease) and in patients with increased creatinine generation due to increased muscle mass (e.g., muscle builders, anabolic steroids) or increased dietary intake. As drug clearance is proportiona l to total GFR and not GFR indexed to body surface area (BSA), in individuals with a BSA substantial ly different than 1.73 m2, drug dosing should be based on the reported eGFR value de-indexed from BSA by multiplying by the individual' s BSA and dividing by 1.73. CKD is diagnosed based on abnormaliti es of kidney structure or function, present for >3 months, with implication s for health and disease. CKD is classified and staged based on cause, eGFR and albuminuria (quantified as urine albumin to creatinine ratio). An eGFR >60 mL/min/1.73 m2 in the absence of increased urine albumin excretion or structural abnormaliti es does not represent CKD. eGFR CKD Interpretat ion (mL/min/1.7 3 m2) stage >=90 G1 Normal 60-89 G2 Mild decrease 45-59 G3A Mild to moderate decrease 30-44 G3B Moderate to severe decrease 15-29 G4 Severe decrease <15 G5 Kidney failure Ordering Provider: TRE SAINZ Report Released Date/Time: Jun 30, 2024 03:21 PM Reporting Lab: [facility] [facility] [address] [place] [phone] Performing Lab: [facility]-C DD [facility] [address] [place] [address] [facility] PANEL 1 POTASSIUM [MOLES/VOL UME] IN SERUM OR PLASMA 3.7 mmol/L 3.5 - 5.1 06/30 Specimen Type: PLASMA Comment: Estimated Glomerular Filtration Rate (eGFR) calculated using the 2020 Chronic Kidney Disease-Epi demiology (CKD-EPI) Collaborati on creatinine equation; units of measure are mL/min/1.73 m2. Results are only valid for adults (>=18 years) whose serum creatinine is in a steady state. eGFR calculation s are not valid for patients with acute kidney injury and for patients on dialysis. Creatinine- based estimates of kidney function may also be inaccurate in patients with reduced creatinine generation due to decreased muscle mass (e.g., malnutritio n, severe hypoalbumin emia, sarcopenia, chronic neuromuscul ar disease, amputations , severe heart failure or liver disease) and in patients with increased creatinine generation due to increased muscle mass (e.g., muscle builders, anabolic steroids) or increased dietary intake. As drug clearance is proportiona l to total GFR and not GFR indexed to body surface area (BSA), in individuals with a BSA substantial ly different than 1.73 m2, drug dosing should be based on the reported eGFR value de-indexed from BSA by multiplying by the individual' s BSA and dividing by 1.73. CKD is diagnosed based on abnormaliti es of kidney structure or function, present for >3 months, with implication s for health and disease. CKD is classified and staged based on cause, eGFR and albuminuria (quantified as urine albumin to creatinine ratio). An eGFR >60 mL/min/1.73 m2 in the absence of increased urine albumin excretion or structural abnormaliti es does not represent CKD. eGFR CKD Interpretat ion (mL/min/1.7 3 m2) stage >=90 G1 Normal 60-89 G2 Mild decrease 45-59 G3A Mild to moderate decrease 30-44 G3B Moderate to severe decrease 15-29 G4 Severe decrease <15 G5 Kidney failure Ordering Provider: TRE SAINZ Report Released Date/Time: Jun 30, 2024 03:21 PM Reporting Lab: [place] [address] [address] Performing Lab: [place] HER[place] [address] [address] [facility] PANEL 1 CHLORIDE [MOLES/VOL UME] IN SERUM OR PLASMA 102 mmol/L 98 - 107 06/30 Specimen Type: PLASMA Comment: Estimated Glomerular Filtration Rate (eGFR) calculated using the 2020 Chronic Kidney Disease-Epi demiology (CKD-EPI) Collaborati on creatinine equation; units of measure are mL/min/1.73 m2. Results are only valid for adults (>=18 years) whose serum creatinine is in a steady state. eGFR calculation s are not valid for patients with acute kidney injury and for patients on dialysis. Creatinine- based estimates of kidney function may also be inaccurate in patients with reduced creatinine generation due to decreased muscle mass (e.g., malnutritio n, severe hypoalbumin emia, sarcopenia, chronic neuromuscul ar disease, amputations , severe heart failure or liver disease) and in patients with increased creatinine generation due to increased muscle mass (e.g., muscle builders, anabolic steroids) or increased dietary intake. As drug clearance is proportiona l to total GFR and not GFR indexed to body surface area (BSA), in individuals with a BSA substantial ly different than 1.73 m2, drug dosing should be based on the reported eGFR value de-indexed from BSA by multiplying by the individual' s BSA and dividing by 1.73. CKD is diagnosed based on abnormaliti es of kidney structure or function, present for >3 months, with implication s for health and disease. CKD is classified and staged based on cause, eGFR and albuminuria (quantified as urine albumin to creatinine ratio). An eGFR >60 mL/min/1.73 m2 in the absence of increased urine albumin excretion or structural abnormaliti es does not represent CKD. eGFR CKD Interpretat ion (mL/min/1.7 3 m2) stage >=90 G1 Normal 60-89 G2 Mild decrease 45-59 G3A Mild to moderate decrease 30-44 G3B Moderate to severe decrease 15-29 G4 Severe decrease <15 G5 Kidney failure Ordering Provider: TRE SAINZ Report Released Date/Time: Jun 30, 2024 03:21 PM Reporting Lab: [place] HER[place]NDEZ [address] [address] Performing Lab: [place] HERNANDEZ [address] [address] [facility] PANEL 1 CARBON DIOXIDE, TOTAL [MOLES/VOL UME] IN SERUM OR PLASMA 27 mmol/L 06/30 Specimen Type: PLASMA Comment: Estimated Glomerular Filtration Rate (eGFR) calculated using the 2020 Chronic Kidney Disease-Epi demiology (CKD-EPI) Collaborati on creatinine equation; units of measure are mL/min/1.73 m2. Results are only valid for adults (>=18 years) whose serum creatinine is in a steady state. eGFR calculation s are not valid for patients with acute kidney injury and for patients on dialysis. Creatinine- based estimates of kidney function may also be inaccurate in patients with reduced creatinine generation due to decreased muscle mass (e.g., malnutritio n, severe hypoalbumin emia, sarcopenia, chronic neuromuscul ar disease, amputations , severe heart failure or liver disease) and in patients with increased creatinine generation due to increased muscle mass (e.g., muscle builders, anabolic steroids) or increased dietary intake. As drug clearance is proportiona l to total GFR and not GFR indexed to body surface area (BSA), in individuals with a BSA substantial ly different than 1.73 m2, drug dosing should be based on the reported eGFR value de-indexed from BSA by multiplying by the individual' s BSA and dividing by 1.73. CKD is diagnosed based on abnormaliti es of kidney structure or function, present for >3 months, with implication s for health and disease. CKD is classified and staged based on cause, eGFR and albuminuria (quantified as urine albumin to creatinine ratio). An eGFR >60 mL/min/1.73 m2 in the absence of increased urine albumin excretion or structural abnormaliti es does not represent CKD. eGFR CKD Interpretat ion (mL/min/1.7 3 m2) stage >=90 G1 Normal 60-89 G2 Mild decrease 45-59 G3A Mild to moderate decrease 30-44 G3B Moderate to severe decrease 15-29 G4 Severe decrease <15 G5 Kidney failure Ordering Provider: TRE SAINZ Report Released Date/Time: Jun 30, 2024 03:21 PM Reporting Lab: [place] HER[place] [address] [address] Performing Lab: [place] HERNANDEZ [address] [address] [facility] PANEL 1 CALCIUM [MASS/VOLU ME] IN SERUM OR PLASMA 9.8 mg/dL 8.4 - 10.2 06/30 Specimen Type: PLASMA Comment: Estimated Glomerular Filtration Rate (eGFR) calculated using the 2020 Chronic Kidney Disease-Epi demiology (CKD-EPI) Collaborati on creatinine equation; units of measure are mL/min/1.73 m2. Results are only valid for adults (>=18 years) whose serum creatinine is in a steady state. eGFR calculation s are not valid for patients with acute kidney injury and for patients on dialysis. Creatinine- based estimates of kidney function may also be inaccurate in patients with reduced creatinine generation due to decreased muscle mass (e.g., malnutritio n, severe hypoalbumin emia, sarcopenia, chronic neuromuscul ar disease, amputations , severe heart failure or liver disease) and in patients with increased creatinine generation due to increased muscle mass (e.g., muscle builders, anabolic steroids) or increased dietary intake. As drug clearance is proportiona l to total GFR and not GFR indexed to body surface area (BSA), in individuals with a BSA substantial ly different than 1.73 m2, drug dosing should be based on the reported eGFR value de-indexed from BSA by multiplying by the individual' s BSA and dividing by 1.73. CKD is diagnosed based on abnormaliti es of kidney structure or function, present for >3 months, with implication s for health and disease. CKD is classified and staged based on cause, eGFR and albuminuria (quantified as urine albumin to creatinine ratio). An eGFR >60 mL/min/1.73 m2 in the absence of increased urine albumin excretion or structural abnormaliti es does not represent CKD. eGFR CKD Interpretat ion (mL/min/1.7 3 m2) stage >=90 G1 Normal 60-89 G2 Mild decrease 45-59 G3A Mild to moderate decrease 30-44 G3B Moderate to severe decrease 15-29 G4 Severe decrease <15 G5 Kidney failure Ordering Provider: TRE SAINZ Report Released Date/Time: Jun 30, 2024 03:21 PM Reporting Lab: [facility] HERNANDEZ [address] [address] Performing Lab: MAD[place]N HERNANDEZ [address] [address] DANNY LOWELL [facility] PANEL 1 ANION GAP 3 IN SERUM OR PLASMA 10 meq/L 3 - 19 06/30 Specimen Type: PLASMA Comment: Estimated Glomerular Filtration Rate (eGFR) calculated using the 2020 Chronic Kidney Disease-Epi demiology (CKD-EPI) Collaborati on creatinine equation; units of measure are mL/min/1.73 m2. Results are only valid for adults (>=18 years) whose serum creatinine is in a steady state. eGFR calculation s are not valid for patients with acute kidney injury and for patients on dialysis. Creatinine- based estimates of kidney function may also be inaccurate in patients with reduced creatinine generation due to decreased muscle mass (e.g., malnutritio n, severe hypoalbumin emia, sarcopenia, chronic neuromuscul ar disease, amputations , severe heart failure or liver disease) and in patients with increased creatinine generation due to increased muscle mass (e.g., muscle builders, anabolic steroids) or increased dietary intake. As drug clearance is proportiona l to total GFR and not GFR indexed to body surface area (BSA), in individuals with a BSA substantial ly different than 1.73 m2, drug dosing should be based on the reported eGFR value de-indexed from BSA by multiplying by the individual' s BSA and dividing by 1.73. CKD is diagnosed based on abnormaliti es of kidney structure or function, present for >3 months, with implication s for health and disease. CKD is classified and staged based on cause, eGFR and albuminuria (quantified as urine albumin to creatinine ratio). An eGFR >60 mL/min/1.73 m2 in the absence of increased urine albumin excretion or structural abnormaliti es does not represent CKD. eGFR CKD Interpretat ion (mL/min/1.7 3 m2) stage >=90 G1 Normal 60-89 G2 Mild decrease 45-59 G3A Mild to moderate decrease 30-44 G3B Moderate to severe decrease 15-29 G4 Severe decrease <15 G5 Kidney failure Ordering Provider: TRE SAINZ Report Released Date/Time: Jun 30, 2024 03:21 PM Reporting Lab: MADELYN HERNANDEZ [address] [address] Performing Lab: MADELYN HERNANDEZ [address] [address] [facility] H[facility] PANEL 1 GLOMERULAR FILTRATION RATE/1.73 SQ M.PREDICTE D [VOLUME RATE/AREA] IN SERUM, PLASMA OR BLOOD BY CREATININE -BASED FORMULA (CKD-EPI 2020) 50 06/30 Specimen Type: PLASMA Comment: Estimated Glomerular Filtration Rate (eGFR) calculated using the 2020 Chronic Kidney Disease-Epi demiology (CKD-EPI) Collaborati on creatinine equation; units of measure are mL/min/1.73 m2. Results are only valid for adults (>=18 years) whose serum creatinine is in a steady state. eGFR calculation s are not valid for patients with acute kidney injury and for patients on dialysis. Creatinine- based estimates of kidney function may also be inaccurate in patients with reduced creatinine generation due to decreased muscle mass (e.g., malnutritio n, severe hypoalbumin emia, sarcopenia, chronic neuromuscul ar disease, amputations , severe heart failure or liver disease) and in patients with increased creatinine generation due to increased muscle mass (e.g., muscle builders, anabolic steroids) or increased dietary intake. As drug clearance is proportiona l to total GFR and not GFR indexed to body surface area (BSA), in individuals with a BSA substantial ly different than 1.73 m2, drug dosing should be based on the reported eGFR value de-indexed from BSA by multiplying by the individual' s BSA and dividing by 1.73. CKD is diagnosed based on abnormaliti es of kidney structure or function, present for >3 months, with implication s for health and disease. CKD is classified and staged based on cause, eGFR and albuminuria (quantified as urine albumin to creatinine ratio). An eGFR >60 mL/min/1.73 m2 in the absence of increased urine albumin excretion or structural abnormaliti es does not represent CKD. eGFR CKD Interpretat ion (mL/min/1.7 3 m2) stage >=90 G1 Normal 60-89 G2 Mild decrease 45-59 G3A Mild to moderate decrease 30-44 G3B Moderate to severe decrease 15-29 G4 Severe decrease <15 G5 Kidney failure Ordering Provider: TRE SAINZ Report Released Date/Time: Jun 30, 2024 03:21 PM Reporting Lab: MADELYN HERNANDEZ [address] [address] Performing Lab: MADELYN HERNANDEZ [address] [address] [facility]AN[facility] H[facility] BNP (STODDARD) NATRIURETI C PEPTIDE B [MASS/VOLU ME] IN SERUM OR PLASMA 29 pg/mL 0 - 100 05/15 Specimen Type: PLASMA Comment: BNP results less than or equal to 100 pg/ml are representat amarilys of normal values in patients without CHF. BNP results greater than 100 pg/ml are considered abnormal and suggestive of CHF. Higher BNP concentrati ons in the first 72 hours after Acute Coronary Syndrome are associated with an increased risk of , myocardial infarction and CHF. Ordering Provider: AL STEINBERG Report Released Date/Time: May 07, 2024 10:35 AM Reporting Lab: MADELYN [address] [address] Performing Lab: DEANNE[address] [address] [facility] MAGNESIU M MAGNESIUM [MASS/VOLU ME] IN SERUM OR PLASMA 1.8 mg/dL 1.6 - 2.6 05/15 Specimen Type: PLASMA Comment: Estimated Glomerular Filtration Rate (eGFR) calculated using the 2020 Chronic Kidney Disease-Epi demiology (CKD-EPI) Collaborati on creatinine equation; units of measure are mL/min/1.73 m2. Results are only valid for adults (>=18 years) whose serum creatinine is in a steady state. eGFR calculation s are not valid for patients with acute kidney injury and for patients on dialysis. Creatinine- based estimates of kidney function may also be inaccurate in patients with reduced creatinine generation due to decreased muscle mass (e.g., malnutritio n, severe hypoalbumin emia, sarcopenia, chronic neuromuscul ar disease, amputations , severe heart failure or liver disease) and in patients with increased creatinine generation due to increased muscle mass (e.g., muscle builders, anabolic steroids) or increased dietary intake. As drug clearance is proportiona l to total GFR and not GFR indexed to body surface area (BSA), in individuals with a BSA substantial ly different than 1.73 m2, drug dosing should be based on the reported eGFR value de-indexed from BSA by multiplying by the individual' s BSA and dividing by 1.73. CKD is diagnosed based on abnormaliti es of kidney structure or function, present for >3 months, with implication s for health and disease. CKD is classified and staged based on cause, eGFR and albuminuria (quantified as urine albumin to creatinine ratio). An eGFR >60 mL/min/1.73 m2 in the absence of increased urine albumin excretion or structural abnormaliti es does not represent CKD. eGFR CKD Interpretat ion (mL/min/1.7 3 m2) stage >=90 G1 Normal 60-89 G2 Mild decrease 45-59 G3A Mild to moderate decrease 30-44 G3B Moderate to severe decrease 15-29 G4 Severe decrease <15 G5 Kidney failure Ordering Provider: AL STEINBERG Report Released Date/Time: May 07, 2024 10:35 AM Reporting Lab: [facility]N HERNANDEZ [facility] [address] [facility] [address] Performing Lab: MADELYN HERNANDEZ [facility] [address] [facility] [address] [facility] PANEL 1 CREATININE [MASS/VOLU ME] IN SERUM OR PLASMA 1.54 mg/dL 0.72 - 1.25 05/15 H Specimen Type: PLASMA Comment: Estimated Glomerular Filtration Rate (eGFR) calculated using the 2020 Chronic Kidney Disease-Epi demiology (CKD-EPI) Collaborati on creatinine equation; units of measure are mL/min/1.73 m2. Results are only valid for adults (>=18 years) whose serum creatinine is in a steady state. eGFR calculation s are not valid for patients with acute kidney injury and for patients on dialysis. Creatinine- based estimates of kidney function may also be inaccurate in patients with reduced creatinine generation due to decreased muscle mass (e.g., malnutritio n, severe hypoalbumin emia, sarcopenia, chronic neuromuscul ar disease, amputations , severe heart failure or liver disease) and in patients with increased creatinine generation due to increased muscle mass (e.g., muscle builders, anabolic steroids) or increased dietary intake. As drug clearance is proportiona l to total GFR and not GFR indexed to body surface area (BSA), in individuals with a BSA substantial ly different than 1.73 m2, drug dosing should be based on the reported eGFR value de-indexed from BSA by multiplying by the individual' s BSA and dividing by 1.73. CKD is diagnosed based on abnormaliti es of kidney structure or function, present for >3 months, with implication s for health and disease. CKD is classified and staged based on cause, eGFR and albuminuria (quantified as urine albumin to creatinine ratio). An eGFR >60 mL/min/1.73 m2 in the absence of increased urine albumin excretion or structural abnormaliti es does not represent CKD. eGFR CKD Interpretat ion (mL/min/1.7 3 m2) stage >=90 G1 Normal 60-89 G2 Mild decrease 45-59 G3A Mild to moderate decrease 30-44 G3B Moderate to severe decrease 15-29 G4 Severe decrease <15 G5 Kidney failure Ordering Provider: AL STEINBERG Report Released Date/Time: May 07, 2024 10:35 AM Reporting Lab: MADELYN HERNANDEZ [address] [address] Performing Lab: MADELYN HERNANDEZ [address] [address] [facility] PANEL 1 UREA NITROGEN [MASS/VOLU ME] IN SERUM OR PLASMA 20 mg/dL 05/15 Specimen Type: PLASMA Comment: Estimated Glomerular Filtration Rate (eGFR) calculated using the 2020 Chronic Kidney Disease-Epi demiology (CKD-EPI) Collaborati on creatinine equation; units of measure are mL/min/1.73 m2. Results are only valid for adults (>=18 years) whose serum creatinine is in a steady state. eGFR calculation s are not valid for patients with acute kidney injury and for patients on dialysis. Creatinine- based estimates of kidney function may also be inaccurate in patients with reduced creatinine generation due to decreased muscle mass (e.g., malnutritio n, severe hypoalbumin emia, sarcopenia, chronic neuromuscul ar disease, amputations , severe heart failure or liver disease) and in patients with increased creatinine generation due to increased muscle mass (e.g., muscle builders, anabolic steroids) or increased dietary intake. As drug clearance is proportiona l to total GFR and not GFR indexed to body surface area (BSA), in individuals with a BSA substantial ly different than 1.73 m2, drug dosing should be based on the reported eGFR value de-indexed from BSA by multiplying by the individual' s BSA and dividing by 1.73. CKD is diagnosed based on abnormaliti es of kidney structure or function, present for >3 months, with implication s for health and disease. CKD is classified and staged based on cause, eGFR and albuminuria (quantified as urine albumin to creatinine ratio). An eGFR >60 mL/min/1.73 m2 in the absence of increased urine albumin excretion or structural abnormaliti es does not represent CKD. eGFR CKD Interpretat ion (mL/min/1.7 3 m2) stage >=90 G1 Normal 60-89 G2 Mild decrease 45-59 G3A Mild to moderate decrease 30-44 G3B Moderate to severe decrease 15-29 G4 Severe decrease <15 G5 Kidney failure Ordering Provider: AL STEINBERG Report Released Date/Time: May 07, 2024 10:35 AM Reporting Lab: MADELYN HERNANDEZ [address] [address] Performing Lab: MADELYN HERNANDEZ [address] [address] [facility] PANEL 1 GLUCOSE [MASS/VOLU ME] IN SERUM OR PLASMA 151 mg/dL 74 - 100 05/15 H Specimen Type: PLASMA Comment: Estimated Glomerular Filtration Rate (eGFR) calculated using the 2020 Chronic Kidney Disease-Epi demiology (CKD-EPI) Collaborati on creatinine equation; units of measure are mL/min/1.73 m2. Results are only valid for adults (>=18 years) whose serum creatinine is in a steady state. eGFR calculation s are not valid for patients with acute kidney injury and for patients on dialysis. Creatinine- based estimates of kidney function may also be inaccurate in patients with reduced creatinine generation due to decreased muscle mass (e.g., malnutritio n, severe hypoalbumin emia, sarcopenia, chronic neuromuscul ar disease, amputations , severe heart failure or liver disease) and in patients with increased creatinine generation due to increased muscle mass (e.g., muscle builders, anabolic steroids) or increased dietary intake. As drug clearance is proportiona l to total GFR and not GFR indexed to body surface area (BSA), in individuals with a BSA substantial ly different than 1.73 m2, drug dosing should be based on the reported eGFR value de-indexed from BSA by multiplying by the individual' s BSA and dividing by 1.73. CKD is diagnosed based on abnormaliti es of kidney structure or function, present for >3 months, with implication s for health and disease. CKD is classified and staged based on cause, eGFR and albuminuria (quantified as urine albumin to creatinine ratio). An eGFR >60 mL/min/1.73 m2 in the absence of increased urine albumin excretion or structural abnormaliti es does not represent CKD. eGFR CKD Interpretat ion (mL/min/1.7 3 m2) stage >=90 G1 Normal 60-89 G2 Mild decrease 45-59 G3A Mild to moderate decrease 30-44 G3B Moderate to severe decrease 15-29 G4 Severe decrease <15 G5 Kidney failure Ordering Provider: AL STEINBERG Report Released Date/Time: May 07, 2024 10:35 AM Reporting Lab: MADELYN HERNANDEZ [address] [address] Performing Lab: MADELYN HERNANDEZ [address] [address] [facility] PANEL 1 SODIUM [MOLES/VOL UME] IN SERUM OR PLASMA 140 mmol/L 136 - 145 05/15 Specimen Type: PLASMA Comment: Estimated Glomerular Filtration Rate (eGFR) calculated using the 2020 Chronic Kidney Disease-Epi demiology (CKD-EPI) Collaborati on creatinine equation; units of measure are mL/min/1.73 m2. Results are only valid for adults (>=18 years) whose serum creatinine is in a steady state. eGFR calculation s are not valid for patients with acute kidney injury and for patients on dialysis. Creatinine- based estimates of kidney function may also be inaccurate in patients with reduced creatinine generation due to decreased muscle mass (e.g., malnutritio n, severe hypoalbumin emia, sarcopenia, chronic neuromuscul ar disease, amputations , severe heart failure or liver disease) and in patients with increased creatinine generation due to increased muscle mass (e.g., muscle builders, anabolic steroids) or increased dietary intake. As drug clearance is proportiona l to total GFR and not GFR indexed to body surface area (BSA), in individuals with a BSA substantial ly different than 1.73 m2, drug dosing should be based on the reported eGFR value de-indexed from BSA by multiplying by the individual' s BSA and dividing by 1.73. CKD is diagnosed based on abnormaliti es of kidney structure or function, present for >3 months, with implication s for health and disease. CKD is classified and staged based on cause, eGFR and albuminuria (quantified as urine albumin to creatinine ratio). An eGFR >60 mL/min/1.73 m2 in the absence of increased urine albumin excretion or structural abnormaliti es does not represent CKD. eGFR CKD Interpretat ion (mL/min/1.7 3 m2) stage >=90 G1 Normal 60-89 G2 Mild decrease 45-59 G3A Mild to moderate decrease 30-44 G3B Moderate to severe decrease 15-29 G4 Severe decrease <15 G5 Kidney failure Ordering Provider: AL STEINBERG Report Released Date/Time: May 07, 2024 10:35 AM Reporting Lab: MADELYN HERNANDEZ [address] [address] Performing Lab: MADELYN HERNANDEZ [address] [address] [facility] PANEL 1 POTASSIUM [MOLES/VOL UME] IN SERUM OR PLASMA 4.0 mmol/L 3.5 - 5.1 05/15 Specimen Type: PLASMA Comment: Estimated Glomerular Filtration Rate (eGFR) calculated using the 2020 Chronic Kidney Disease-Epi demiology (CKD-EPI) Collaborati on creatinine equation; units of measure are mL/min/1.73 m2. Results are only valid for adults (>=18 years) whose serum creatinine is in a steady state. eGFR calculation s are not valid for patients with acute kidney injury and for patients on dialysis. Creatinine- based estimates of kidney function may also be inaccurate in patients with reduced creatinine generation due to decreased muscle mass (e.g., malnutritio n, severe hypoalbumin emia, sarcopenia, chronic neuromuscul ar disease, amputations , severe heart failure or liver disease) and in patients with increased creatinine generation due to increased muscle mass (e.g., muscle builders, anabolic steroids) or increased dietary intake. As drug clearance is proportiona l to total GFR and not GFR indexed to body surface area (BSA), in individuals with a BSA substantial ly different than 1.73 m2, drug dosing should be based on the reported eGFR value de-indexed from BSA by multiplying by the individual' s BSA and dividing by 1.73. CKD is diagnosed based on abnormaliti es of kidney structure or function, present for >3 months, with implication s for health and disease. CKD is classified and staged based on cause, eGFR and albuminuria (quantified as urine albumin to creatinine ratio). An eGFR >60 mL/min/1.73 m2 in the absence of increased urine albumin excretion or structural abnormaliti es does not represent CKD. eGFR CKD Interpretat ion (mL/min/1.7 3 m2) stage >=90 G1 Normal 60-89 G2 Mild decrease 45-59 G3A Mild to moderate decrease 30-44 G3B Moderate to severe decrease 15-29 G4 Severe decrease <15 G5 Kidney failure Ordering Provider: AL STEINBERG Report Released Date/Time: May 07, 2024 10:35 AM Reporting Lab: MADELYN HERNANDEZ [address] [address] Performing Lab: MADELYN HERNANDEZ [address] [address] [facility] PANEL 1 CHLORIDE [MOLES/VOL UME] IN SERUM OR PLASMA 104 mmol/L 98 - 107 05/15 Specimen Type: PLASMA Comment: Estimated Glomerular Filtration Rate (eGFR) calculated using the 2020 Chronic Kidney Disease-Epi demiology (CKD-EPI) Collaborati on creatinine equation; units of measure are mL/min/1.73 m2. Results are only valid for adults (>=18 years) whose serum creatinine is in a steady state. eGFR calculation s are not valid for patients with acute kidney injury and for patients on dialysis. Creatinine- based estimates of kidney function may also be inaccurate in patients with reduced creatinine generation due to decreased muscle mass (e.g., malnutritio n, severe hypoalbumin emia, sarcopenia, chronic neuromuscul ar disease, amputations , severe heart failure or liver disease) and in patients with increased creatinine generation due to increased muscle mass (e.g., muscle builders, anabolic steroids) or increased dietary intake. As drug clearance is proportiona l to total GFR and not GFR indexed to body surface area (BSA), in individuals with a BSA substantial ly different than 1.73 m2, drug dosing should be based on the reported eGFR value de-indexed from BSA by multiplying by the individual' s BSA and dividing by 1.73. CKD is diagnosed based on abnormaliti es of kidney structure or function, present for >3 months, with implication s for health and disease. CKD is classified and staged based on cause, eGFR and albuminuria (quantified as urine albumin to creatinine ratio). An eGFR >60 mL/min/1.73 m2 in the absence of increased urine albumin excretion or structural abnormaliti es does not represent CKD. eGFR CKD Interpretat ion (mL/min/1.7 3 m2) stage >=90 G1 Normal 60-89 G2 Mild decrease 45-59 G3A Mild to moderate decrease 30-44 G3B Moderate to severe decrease 15-29 G4 Severe decrease <15 G5 Kidney failure Ordering Provider: AL STEINBERG Report Released Date/Time: May 07, 2024 10:35 AM Reporting Lab: MADELYN HERNANDEZ [address] [address] Performing Lab: MADELYN HERNANDEZ [address] [address] [facility] PANEL 1 CARBON DIOXIDE, TOTAL [MOLES/VOL UME] IN SERUM OR PLASMA 28 mmol/L 05/15 Specimen Type: PLASMA Comment: Estimated Glomerular Filtration Rate (eGFR) calculated using the 2020 Chronic Kidney Disease-Epi demiology (CKD-EPI) Collaborati on creatinine equation; units of measure are mL/min/1.73 m2. Results are only valid for adults (>=18 years) whose serum creatinine is in a steady state. eGFR calculation s are not valid for patients with acute kidney injury and for patients on dialysis. Creatinine- based estimates of kidney function may also be inaccurate in patients with reduced creatinine generation due to decreased muscle mass (e.g., malnutritio n, severe hypoalbumin emia, sarcopenia, chronic neuromuscul ar disease, amputations , severe heart failure or liver disease) and in patients with increased creatinine generation due to increased muscle mass (e.g., muscle builders, anabolic steroids) or increased dietary intake. As drug clearance is proportiona l to total GFR and not GFR indexed to body surface area (BSA), in individuals with a BSA substantial ly different than 1.73 m2, drug dosing should be based on the reported eGFR value de-indexed from BSA by multiplying by the individual' s BSA and dividing by 1.73. CKD is diagnosed based on abnormaliti es of kidney structure or function, present for >3 months, with implication s for health and disease. CKD is classified and staged based on cause, eGFR and albuminuria (quantified as urine albumin to creatinine ratio). An eGFR >60 mL/min/1.73 m2 in the absence of increased urine albumin excretion or structural abnormaliti es does not represent CKD. eGFR CKD Interpretat ion (mL/min/1.7 3 m2) stage >=90 G1 Normal 60-89 G2 Mild decrease 45-59 G3A Mild to moderate decrease 30-44 G3B Moderate to severe decrease 15-29 G4 Severe decrease <15 G5 Kidney failure Ordering Provider: AL STEINBERG Report Released Date/Time: May 07, 2024 10:35 AM Reporting Lab: MADELYN HERNANDEZ [address] [address] Performing Lab: MADELYN HERNANDEZ [address] [address] [facility] PANEL 1 CALCIUM [MASS/VOLU ME] IN SERUM OR PLASMA 9.7 mg/dL 8.4 - 10.2 05/15 Specimen Type: PLASMA Comment: Estimated Glomerular Filtration Rate (eGFR) calculated using the 2020 Chronic Kidney Disease-Epi demiology (CKD-EPI) Collaborati on creatinine equation; units of measure are mL/min/1.73 m2. Results are only valid for adults (>=18 years) whose serum creatinine is in a steady state. eGFR calculation s are not valid for patients with acute kidney injury and for patients on dialysis. Creatinine- based estimates of kidney function may also be inaccurate in patients with reduced creatinine generation due to decreased muscle mass (e.g., malnutritio n, severe hypoalbumin emia, sarcopenia, chronic neuromuscul ar disease, amputations , severe heart failure or liver disease) and in patients with increased creatinine generation due to increased muscle mass (e.g., muscle builders, anabolic steroids) or increased dietary intake. As drug clearance is proportiona l to total GFR and not GFR indexed to body surface area (BSA), in individuals with a BSA substantial ly different than 1.73 m2, drug dosing should be based on the reported eGFR value de-indexed from BSA by multiplying by the individual' s BSA and dividing by 1.73. CKD is diagnosed based on abnormaliti es of kidney structure or function, present for >3 months, with implication s for health and disease. CKD is classified and staged based on cause, eGFR and albuminuria (quantified as urine albumin to creatinine ratio). An eGFR >60 mL/min/1.73 m2 in the absence of increased urine albumin excretion or structural abnormaliti es does not represent CKD. eGFR CKD Interpretat ion (mL/min/1.7 3 m2) stage >=90 G1 Normal 60-89 G2 Mild decrease 45-59 G3A Mild to moderate decrease 30-44 G3B Moderate to severe decrease 15-29 G4 Severe decrease <15 G5 Kidney failure Ordering Provider: AL STEINBERG Report Released Date/Time: May 07, 2024 10:35 AM Reporting Lab: MADELYN HERNANDEZ [address] [address] Performing Lab: MADELYN HERNANDEZ [address] [address] [facility] PANEL 1 ANION GAP 3 IN SERUM OR PLASMA 8 meq/L 3 - 19 05/15 Specimen Type: PLASMA Comment: Estimated Glomerular Filtration Rate (eGFR) calculated using the 2020 Chronic Kidney Disease-Epi demiology (CKD-EPI) Collaborati on creatinine equation; units of measure are mL/min/1.73 m2. Results are only valid for adults (>=18 years) whose serum creatinine is in a steady state. eGFR calculation s are not valid for patients with acute kidney injury and for patients on dialysis. Creatinine- based estimates of kidney function may also be inaccurate in patients with reduced creatinine generation due to decreased muscle mass (e.g., malnutritio n, severe hypoalbumin emia, sarcopenia, chronic neuromuscul ar disease, amputations , severe heart failure or liver disease) and in patients with increased creatinine generation due to increased muscle mass (e.g., muscle builders, anabolic steroids) or increased dietary intake. As drug clearance is proportiona l to total GFR and not GFR indexed to body surface area (BSA), in individuals with a BSA substantial ly different than 1.73 m2, drug dosing should be based on the reported eGFR value de-indexed from BSA by multiplying by the individual' s BSA and dividing by 1.73. CKD is diagnosed based on abnormaliti es of kidney structure or function, present for >3 months, with implication s for health and disease. CKD is classified and staged based on cause, eGFR and albuminuria (quantified as urine albumin to creatinine ratio). An eGFR >60 mL/min/1.73 m2 in the absence of increased urine albumin excretion or structural abnormaliti es does not represent CKD. eGFR CKD Interpretat ion (mL/min/1.7 3 m2) stage >=90 G1 Normal 60-89 G2 Mild decrease 45-59 G3A Mild to moderate decrease 30-44 G3B Moderate to severe decrease 15-29 G4 Severe decrease <15 G5 Kidney failure Ordering Provider: AL STEINBERG Report Released Date/Time: May 07, 2024 10:35 AM Reporting Lab: MADELYN HERNANDEZ [facility] [address] [facility] [address] Performing Lab: MADELYN HERNANDEZ [facility] [address] [address] [facility] PANEL 1 GLOMERULAR FILTRATION RATE/1.73 SQ M.PREDICTE D [VOLUME RATE/AREA] IN SERUM, PLASMA OR BLOOD BY CREATININE -BASED FORMULA (CKD-EPI 2020) 46 05/15 Specimen Type: PLASMA Comment: Estimated Glomerular Filtration Rate (eGFR) calculated using the 2020 Chronic Kidney Disease-Epi demiology (CKD-EPI) Collaborati on creatinine equation; units of measure are mL/min/1.73 m2. Results are only valid for adults (>=18 years) whose serum creatinine is in a steady state. eGFR calculation s are not valid for patients with acute kidney injury and for patients on dialysis. Creatinine- based estimates of kidney function may also be inaccurate in patients with reduced creatinine generation due to decreased muscle mass (e.g., malnutritio n, severe hypoalbumin emia, sarcopenia, chronic neuromuscul ar disease, amputations , severe heart failure or liver disease) and in patients with increased creatinine generation due to increased muscle mass (e.g., muscle builders, anabolic steroids) or increased dietary intake. As drug clearance is proportiona l to total GFR and not GFR indexed to body surface area (BSA), in individuals with a BSA substantial ly different than 1.73 m2, drug dosing should be based on the reported eGFR value de-indexed from BSA by multiplying by the individual' s BSA and dividing by 1.73. CKD is diagnosed based on abnormaliti es of kidney structure or function, present for >3 months, with implication s for health and disease. CKD is classified and staged based on cause, eGFR and albuminuria (quantified as urine albumin to creatinine ratio). An eGFR >60 mL/min/1.73 m2 in the absence of increased urine albumin excretion or structural abnormaliti es does not represent CKD. eGFR CKD Interpretat ion (mL/min/1.7 3 m2) stage >=90 G1 Normal 60-89 G2 Mild decrease 45-59 G3A Mild to moderate decrease 30-44 G3B Moderate to severe decrease 15-29 G4 Severe decrease <15 G5 Kidney failure Ordering Provider: AL STEINBERG Report Released Date/Time: May 07, 2024 10:35 AM Reporting Lab: [address] [address] Performing Lab: [address] [address] [facility] URINALYS IS COLOR OF URINE Colorles s 04/29 Specimen Type: URINE Comment: Microscopic not indicated Ordering Provider: MALLY KIM Report Released Date/Time: Apr 16, 2024 01:19 PM Reporting Lab: [address] [address] Performing Lab: [address] [address] [facility] URINALYS IS APPEARANCE OF URINE Clear 04/29 Specimen Type: URINE Comment: Microscopic not indicated Ordering Provider: MALLY KIM Report Released Date/Time: Apr 16, 2024 01:19 PM Reporting Lab: [address] [address] Performing Lab: [address] [address] [facility] URINALYS IS UROBILINOG EN [MASS/VOLU ME] IN URINE BY TEST STRIP Normalmg /dL 04/29 Specimen Type: URINE Comment: Microscopic not indicated Ordering Provider: MALLY KIM Report Released Date/Time: Apr 16, 2024 01:19 PM Reporting Lab: [address] [address] Performing Lab: [address] [address] [facility] URINALYS IS HEMOGLOBIN [PRESENCE] IN URINE BY TEST STRIP Negative 04/29 Specimen Type: URINE Comment: Microscopic not indicated Ordering Provider: MALLY KIM Report Released Date/Time: Apr 16, 2024 01:19 PM Reporting Lab: [address] [address] Performing Lab: [address] [address] [facility] URINALYS IS BILIRUBIN. TOTAL [PRESENCE] IN URINE BY TEST STRIP Negative 04/29 Specimen Type: URINE Comment: Microscopic not indicated Ordering Provider: MALLY KIM Report Released Date/Time: Apr 16, 2024 01:19 PM Reporting [facility] [address] [address] Performing Lab: [address] [address] [facility] URINALYS IS KETONES [MASS/VOLU ME] IN URINE BY TEST STRIP Negative mg/dL 04/29 Specimen Type: URINE Comment: Microscopic not indicated Ordering Provider: MALLY KIM Report Released Date/Time: Apr 16, 2024 01:19 PM Reporting Lab: [address] [address] Performing Lab: [address] [address] [facility] URINALYS IS PROTEIN [MASS/VOLU ME] IN URINE BY TEST STRIP Negative mg/dL 04/29 Specimen Type: URINE Comment: Microscopic not indicated Ordering Provider: MALLY KIM Report Released Date/Time: Apr 16, 2024 01:19 PM Reporting Lab: [address] [address] Performing Lab: [address] [address] [facility] URINALYS IS PH OF URINE BY TEST STRIP 7.0 4.5 - 8.0 04/29 Specimen Type: URINE Comment: Microscopic not indicated Ordering Provider: MALLY KIM Report Released Date/Time: Apr 16, 2024 01:19 PM Reporting Lab: [facility] [address] [address] Performing Lab: [address] [address] [facility] URINALYS IS NITRITE [PRESENCE] IN URINE BY TEST STRIP Negative 04/29 Specimen Type: URINE Comment: Microscopic not indicated Ordering Provider: MALLY KIM Report Released Date/Time: Apr 16, 2024 01:19 PM Reporting Lab: [place] [phone] Performing Lab: [place] [phone] [place] [address] URINALYS IS LEUKOCYTE ESTERASE [PRESENCE] IN URINE BY TEST STRIP Negative 04/29 Specimen Type: URINE Comment: Microscopic not indicated Ordering Provider: MALLY KIM Report Released Date/Time: Apr 16, 2024 01:19 PM Reporting Lab: [place] [phone] Performing Lab: [place] [phone] [place] [address] URINALYS IS SPECIFIC GRAVITY OF URINE 1.005 1.005 - 1.030 04/29 Specimen Type: URINE Comment: Microscopic not indicated Ordering Provider: MALLY KIM Report Released Date/Time: Apr 16, 2024 01:19 PM Reporting Lab: [place] [phone] Performing Lab: [place] [phone] URINALYS IS GLUCOSE [MASS/VOLU ME] IN URINE BY TEST STRIP Negative mg/dL 04/29 Specimen Type: URINE Comment: Microscopic not indicated Ordering Provider: MALLY KIM Report Released Date/Time: Apr 16, 2024 01:19 PM Reporting Lab: [place] [phone] Performing Lab: [place] [phone] HIGH SENSITIV ITY TROPONIN I TROPONIN I.CARDIAC [MASS/VOLU ME] IN SERUM OR PLASMA BY HIGH SENSITIVIT Y METHOD <4 4 - 35 04/29 Specimen Type: PLASMA Comment: Reference Ranges Females: 4 - 14 ng/L Males: 4 - 35 ng/L Limit of Quantitatio n: 4 ng/L Significant High-Sensit ivity Troponin I Delta at 2 hours, either rising or falling: >10 ng/L. Once baseline and 2-hour High-Sensit ivity Troponin I results are available, the Provider ordering the tests will calculate the HS-Troponin I Delta, the difference between the two values. High-Tropon in I values greater than the 99th percentile [...] elevated values. This assay is susceptible to interferenc e from total protein >8.8 g/dL. Total protein values from 9.0 to 12.0 g/dL decrease Troponin values at 500 ng/L by up to -16.3%. Although designed to minimize the effects of HAMA, heterophili c antibodies, and RF, the assay results may be impacted in a falsely negative way by these proteins. A High-Sensit ivity Troponin I information resource can be reached in [employer] in the Tools menu, under the Education tab. Ordering Provider: MALLY KIM Report Released Date/Time: Apr 16, 2024 01:19 PM Reporting Lab: [address] [address] Performing Lab: [address] [address] [facility] LACTIC ACID LACTATE [MOLES/VOL UME] IN SERUM OR PLASMA 1.4 mmol/L 0.5 - 2.2 04/29 Specimen Type: PLASMA Comment: ~2 hours from now Ordering Provider: MALLY KIM Report Released Date/Time: Apr 16, 2024 01:19 PM Reporting Lab: [address] [address] Performing Lab: [address] [address] [facility] MAGNESIU M MAGNESIUM [MASS/VOLU ME] IN SERUM OR PLASMA 1.7 mg/dL 1.6 - 2.6 04/29 Specimen Type: PLASMA Comment: Estimated Glomerular Filtration Rate (eGFR) calculated using the 2020 Chronic Kidney Disease-Epi demiology (CKD-EPI) Collaborati on creatinine equation; units of measure are mL/min/1.73 m2. Results are only valid for adults (>=18 years) whose serum creatinine is in a steady state. eGFR calculation s are not valid for patients with acute kidney injury and for patients on dialysis. Creatinine- based estimates of kidney function may also be inaccurate in patients with reduced creatinine generation due to decreased muscle mass (e.g., malnutritio n, severe hypoalbumin emia, sarcopenia, chronic neuromuscul ar disease, amputations , severe heart failure or liver disease) and in patients with increased creatinine generation due to increased muscle mass (e.g., muscle builders, anabolic steroids) or increased dietary intake. As drug clearance is proportiona l to total GFR and not GFR indexed to body surface area (BSA), in individuals with a BSA substantial ly different than 1.73 m2, drug dosing should be based on the reported eGFR value de-indexed from BSA by multiplying by the individual' s BSA and dividing by 1.73. CKD is diagnosed based on abnormaliti es of kidney structure or function, present for >3 months, with implication s for health and disease. CKD is classified and staged based on cause, eGFR and albuminuria (quantified as urine albumin to creatinine ratio). An eGFR >60 mL/min/1.73 m2 in the absence of increased urine albumin excretion or structural abnormaliti es does not represent CKD. eGFR CKD Interpretat ion (mL/min/1.7 3 m2) stage >=90 G1 Normal 60-89 G2 Mild decrease 45-59 G3A Mild to moderate decrease 30-44 G3B Moderate to severe decrease 15-29 G4 Severe decrease <15 G5 Kidney failure Ordering Provider: AL STEINBERG Report Released Date/Time: Apr 29, 2024 10:33 AM Reporting Lab: MADELYN HERNANDEZ [address] [address] Performing Lab: MADELYN HERNANDEZ [address] [address] [facility] Vital Signs Combined list of inpatient and outpatient Vital Signs from Department of Defense and Veterans Affairs, ranging from 12 months to all on record, depending upon the facility. Vital Sign Value Date Comments Source SYSTOLIC BLOOD PRESSURE 129 07/10/2024 08:31:00 DANNY [facility] DIASTOLIC BLOOD PRESSURE 76 07/10/2024 08:31:00 DANNY [facility] PULSE OXIMETRY 97 07/10/2024 08:31:00 L SIRIA [facility] WEIGHT 211.0 07/10/2024 08:31:00 LARRY HOLLOWAY [facility] BMI 30 kg/m2 07/10/2024 08:31:00 [place] JEWEL [facility] PAIN 0 07/10/2024 08:31:00 DEANNEIN JEWEL [facility] TEMPERATURE 97.7 07/10/2024 08:31:00 JAYNE SINGH [facility] PULSE 77 07/10/2024 08:31:00 LARRY HOLLOWAY [facility] WEIGHT 207.4 06/30/2024 10:51:27 LARRY HOLLOWAY [facility] BMI 30 kg/m2 06/30/2024 10:51:27 [place] JEWEL [facility] SYSTOLIC BLOOD PRESSURE 133 06/20/2024 08:54:31 DANNY [facility] DIASTOLIC BLOOD PRESSURE 77 06/20/2024 08:54:31 DANNY [facility] PULSE OXIMETRY 98 06/20/2024 08:54:31 L SIRIA [facility] WEIGHT 209 06/20/2024 08:54:31 LARRY HOLLOWAY [facility] BMI 30 kg/m2 06/20/2024 08:54:31 LEXYESY HOLLOWAY [facility] PAIN 0 06/20/2024 08:54:31 DEANNEIN JEWEL [facility] HEIGHT 70 06/20/2024 08:54:31 DEANNEIN JEWEL [facility] TEMPERATURE 96.7 06/20/2024 08:54:31 JAYNE SINGH [facility] PULSE 73 06/20/2024 08:54:31 [place] GTGARY [facility] RESPIRATION 18 06/20/2024 08:54:31 JAYNE SINGH [facility] SYSTOLIC BLOOD PRESSURE 138 05/15/2024 10:57:27 DEANNEINGTON [facility] DIASTOLIC BLOOD PRESSURE 05/15/2024 10:57[facility] 97 05/15/2024 10:57:27 L SIRIA [facility] WEIGHT 213.5 05/15/2024 10:57:27 LARRY GARY [facility] BMI 31 kg/m2 05/15/2024 10:57:27 LEXIN GARY [facility] PAIN 0 05/15/2024 10:57:27 DEANNEIN GARY [facility] HEIGHT 70 05/15/2024 10:57:27 [facility]IN [facility] TEMPERATURE 97.6 05/15/2024 10:57:27 JAYNE NGSALMA [facility] PULSE 95 05/15/2024 10:57:27 DEANNEIN [facility] RESPIRATION 16 05/15/2024 10:57:27 JAYNE NGTON [facility] SYSTOLIC BLOOD PRESSURE 144 04/29/2024 10:06:00 [facility] 82 04/29/2024 10:06[facility] PULSE OXIMETRY 96 04/29/2024 10:06:00 [facility] WEIGHT 215.0 04/29/2024 10:06:00 LARRY HOLLOWAY [facility] BMI 31 kg/m2 04/29/2024 10:06:00 LARRY GARY [facility] PAIN 0 04/29/2024 10:06:00 DEANNEIN [facility] TEMPERATURE 97.8 04/29/2024 10:06:00 JAYNE NGTON [facility] PULSE 75 04/29/2024 10:06:00 [place] [facility] Encounters Combined list of: 1) Encounters from Department of Veterans Affairs facilities going backup to the last 18 months, not all VA inpatient encounters are included; 2) Encounters from the Department of Defense facilities going backup to 280 months. Location Location Details Encounter Type Encounter Number Reason For Visit Attending Provider ADM Date DC Date Status Disposition Source [facility] PSYTX W PT 60 MINUTES [id number] Diagnos is: ICD-10- CM F43.12 Post-tr aumatic stress disorde r, chronic EVIE MARIN M 02/06 [place] [facility] EMERGENCY DEPT VISIT LOW [facility] [id number] Diagnos is: ICD-10- CM J20.9 Acute bronchi tis, unspeci fied CLARITZA DURAN RELL 02/10 [place] Outpatient Encounter [id number] 02/10 [place] OFFICE O/P EST HI 40-54 MIN [id number] Diagnos is: ICD-10- CM F43.12 Post-tr aumatic stress disorde r, chronic MERCED HERNÁNDEZ DELMY T 03/01 [place] [facility] OFFICE O/P EST MOD 30-39 MIN [id number] Diagnos is: ICD-10- CM R47.02 Dysphas ia PARISH RELVIN H 03/12 [place] [facility] INTRAORAL PERIAPICAL FIRST [id number] Diagnos is: ICD-10- CM K02.52 Dental caries on pit and fissure surfc penetra t into dentin KAREEM ORTEGA P 03/12 [place] [facility] OFFICE O/P EST MOD 30-39 MIN [id number] Diagnos is: ICD-10- CM M19.011 Primary osteoar thritis , right shoulde r BOB MILES CK A 03/13 [place] Outpatient Encounter [id number] 03/13 [place] [facility] Outpatient Encounter [id number] 03/14 [place] PSYTX W PT 60 MINUTES [id number] Diagnos is: ICD-10- CM F43.10 Post-tr aumatic stress disorde r, unspeci fied TOMAS,EVIE MANDUJANO M 03/15 [place] [facility] OFFICE O/P EST LOW 20-29 MIN [id number] Diagnos is: ICD-10- CM E11.40 Type 2 diabete s mellitu s with diabeti c neuropa thy, unsp GLENN,B ENJAMIN M 03/15 [place] [facility] ORTHC/PROS TC MGMT SBSQ ENC [id number] Diagnos is: ICD-10- CM E11.9 Type 2 diabete s mellitu s without complic ations PACK,PAMEL A S 03/15 [place] [facility] DENTAL BITEWING FOUR IMAGES [id number] Diagnos is: ICD-10- CM K03.6 Deposit s [accret ions] on teeth WATSON,MATHEUS RA M 03/20 [place] [facility] OFFICE O/P EST LOW 20-29 MIN [id number] [id number] Diagnos is: ICD-10- CM L57.0 Actinic keratos is BLAIRE ROGERS 03/20 [place] [facility] DIAB SHOE FOR DENSITY INSERT [id number] Diagnos is: ICD-10- CM E11.9 Type 2 diabete s mellitu s without complic ations RITA PARK 03/28 [place] [facility] EYE EXAM&TX ESTAB PT 1/>VST [id number] [id number] Diagnos is: ICD-10- CM H35.372 Puckeri ng of macula, left eye FIGUEROA,ER IC B 04/13 [place] Outpatient Encounter [id number] ESAUEMMANUEL SILVA Gabriel D 04/13 [place] [facility] Outpatient Encounter [id number] 04/17 [place] [facility] ORAL FUNCTION THERAPY [id number] Diagnos is: ICD-10- CM R13.12 Dysphag ia, orophar yngeal phase LILIA TORRES K 04/17 [place] [facility] PSYTX W PT 60 MINUTES [id number] [id number] Diagnos is: ICD-10- CM F43.10 Post-tr aumatic stress disorde r, unspeci fied EVIE MARIN SEPH M 04/19 [place] [facility] EMERGENCY DEPT VISIT LOW MDM [id number] Diagnos is: ICD-10- CM J20.9 Acute bronchi tis, unspeci fied WELLS,RJ IS D 04/25 [place] HC PRO PHONE CALL 11-20 MIN [id number] Diagnos is: ICD-10- CM Z71.9 Fabrication Department Supervisor ing, unspeci fied GARLINGHOU SE,MERE L 04/26 [place] [facility] PSYTX W PT 60 MINUTES [id number] Diagnos is: ICD-10- CM F43.10 Post-tr aumatic stress disorde r, unspeci fied EVIE MARIN SEPH M 05/17 [place] [facility] ORAL FUNCTION THERAPY [id number] Diagnos is: ICD-10- CM R13.12 Dysphag ia, orophar yngeal phase LILIA TORRES K 05/17 [place] [facility] PERIODIC ORAL EVAL EST [id number] Diagnos is: ICD-10- CM K02.52 Dental caries on pit and fissure surfc penetra t into dentin ANGELIKA MCLAUGHLIN AEL 05/21 [place] [facility] Outpatient Encounter [id number] 06/17 [place] [facility] OFFICE O/P EST MOD 30 MIN [id number] [id number] Diagnos is: ICD-10- CM R47.02 Dysphas ia PARISH RELVIN H 06/25 [place] Outpatient Encounter [id number] 06/25 [place] [facility] OFFICE O/P EST HI 40 MIN [id number] [id number] Diagnos is: ICD-10- CM F43.12 Post-tr aumatic stress disorde r, MERCED Lloyd CIA T 06/27 [place] [facility] Outpatient Encounter [id number] 07/08 [place] [facility] OFFICE O/P EST MOD 30 MIN [id number] [id number] Diagnos is: ICD-10- CM M25.511 Pain in right shoulde r BOB MILES A 07/08 [place] PSYTX W PT 60 MINUTES [id number] [id number] Diagnos is: ICD-10- CM F43.10 Post-tr aumatic stress disorde r, unspeci fied EVIE MARIN M 07/11 [place] [facility] OFFICE O/P EST MOD 30 MIN [id number] Diagnos is: ICD-10- CM E11.40 Type 2 diabete s mellitu s with diabeti c neuropa thy, unsp MUNOZBEN LEONARDANDER 07/12 [place] [facility] OFFICE O/P EST MOD 30 MIN [id number] Diagnos is: ICD-10- CM E11.40 Type 2 diabete s mellitu s with diabeti c neuropa thy, unsp STEINBERG,GASTON CY K 07/15 [place] [facility] ORAL FUNCTION THERAPY [id number] [id number] Diagnos is: ICD-10- CM R13.12 Dysphag ia, orophar yngeal phase LILIA TORRES K 07/18 [place] [facility] HC PRO PHONE CALL 11-20 MIN [id number] [id number] Diagnos is: ICD-10- CM Z71.9 Fabrication Department Supervisor ing, unspeci fied GARLINGHOU SE,MERE L 07/19 [place] [facility] DIAGNOSTIC CASTS [id number] [id number] Diagnos is: ICD-10- CM K02.52 Dental caries on pit and fissure surfc penetra t into dentin LISSETTE,ANGELIKA AEL 07/23 [place] [facility] OFFICE O/P EST MOD 30 MIN [id number] [id number] Diagnos is: ICD-10- CM R13.10 Dysphag ia, unspeci fied ISAAC,BE TH N 07/24 [place] OFFICE O/P EST MOD 30 MIN [id number] [id number] ARNOLDO GRAY N 07/24 [place] Outpatient Encounter [id number] 08/01 [place] [facility] PSYTX W PT 60 MINUTES [id number] [id number] Diagnos is: ICD-10- CM F43.10 Post-tr aumatic stress disorde r, unspeci fiEVIE Bird M 08/15 [place] [facility] CASE MGMT-ORAL HEALTH LIT [id number] [id number] Diagnos is: ICD-10- CM K03.6 Deposit s [accret ions] on teeth WATSON,MATHEUS RA M 09/16 [place] [facility] PSYTX W PT 60 MINUTES [id number] [id number] Diagnos is: ICD-10- CM F43.10 Post-tr aumatic stress disorde r, unspeci EVIE Chow M 09/19 [place] [facility] PSYCH DIAG EVAL W/MED SRVCS [id number] [id number] Diagnos is: ICD-10- CM F43.10 Post-tr aumatic stress disorde r, unspeci fied HERLINDA CAGE 09/26 [place] [facility] Outpatient Encounter [id number] 10/22 [place] [facility] OFFICE O/P EST MOD 30 MIN [id number] [id number] Diagnos is: ICD-10- CM R13.10 Dysphag ia, unspeci fied ELVIN GIMENEZ 10/22 [place] Outpatient Encounter [id number] CLARITZA DURAN 10/22 [place] EMERGENCY DEPT VISIT LOW MDM [id number] [id number] Diagnos is: ICD-10- CM L03.211 Celluli tis of face RA JUDY UNRULYASUNCION JOCELINE 10/26 [place] Outpatient Encounter [id number] 10/28 [place] [facility] EMERGENCY DEPT VISIT LOW MDM [id number] [id number] Diagnos is: ICD-10- CM H60.92 Unspeci fied otitis externa , left ear ASHLY JOVELA S 10/30 [place] [facility] HC PRO PHONE CALL 5-10 MIN [id number] Diagnos is: ICD-10- CM Z71.9 Fabrication Department Supervisor ing, unspeci fied GARLINGHOU SE,MERE L 11/01 [place] [facility] LIMIT ORAL EVAL PROBLM FOCUS [id number] Diagnos is: ICD-10- CM K02.52 Dental caries on pit and fissure surfc penetra t into dentin ANGELIKA MCLAUGHLIN AEL 11/04 [place] Outpatient Encounter [id number] 11/04 [place] Outpatient Encounter [id number] 11/04 [place] Outpatient Encounter [id number] 11/04 [place] [facility] OFF/OP EST AUGUST X REQ PHY/QHP [id number] Diagnos is: ICD-10- CM I10 Essenti al (primar y) hyperte nsion WHITE,SHAN NON D 11/04 [place] [facility] Outpatient Encounter [id number] 11/05 [place] [facility] OFFICE O/P EST LOW 20 MIN [id number] Diagnos is: ICD-10- CM B35.1 Tinea unguium HASLER,PHI LLIP W 11/08 [place] [facility] OFFICE O/P EST MOD 30 MIN [id number] Diagnos is: ICD-10- CM D48.5 Neoplas m of uncerta in behavio r of skin BLAIRE ROGERS TEN 11/18 [place] OFFICE O/P EST MOD 30 MIN [id number] Diagnos is: ICD-10- CM M25.511 Pain in right shoulde r JD,BOB CK A 11/18 [place] Outpatient Encounter [id number] 11/18 [place] [facility] Outpatient Encounter 46593-4.59 [id number] FINA EDGAR 11/21 [place] [facility] HC PRO PHONE CALL 5-10 [place] [address]-1.59 [id number] Diagnos is: ICD-10- CM Z71.89 Other specifi ed certified alcohol counselor Alfredito Gimenez 11/26 [place] [facility] ORAL HYGIENE INSTRUCTIO N 60159-3.59 [id number] Diagnos is: ICD-10- CM K02.52 Dental caries on pit and fissure surfc penetra t into dentin ANGELIKA MCLAUGHLIN AEMelissa 11/28 [place] [facility] Outpatient Encounter 13339-0.59 [id number] 12/10 [place] [facility] OFFICE O/P NEW LOW 30 MIN 57718-1.59 [id number] Diagnos is: ICD-10- CM M71.30 Other bursal cyst, unspeci fied site JERONIMO CHEUNG Y 12/12 [place] Outpatient Encounter 48441-1.59 [id number] 62 12/12 [place] LIMIT ORAL EVAL PROBLM FOCUS 59872-7.59 [id number] Diagnos is: ICD-10- CM K03.81 Cracked tooth Jovanny JAUREGUI JAVON C 12/13 [place] [facility] UNSPECIFIE D DIAGNOSTIC PROCE 75781-3.59 [id number] Diagnos is: ICD-10- CM Z01.20 Encount er for dental exam and cleanin g w/o abnorma l finding s ANGELIKA MCLAUGHLIN AEMelissa 12/17 [place] [facility] OFFICE O/P EST MOD 30 MIN 24933-6.59 [id number] Diagnos is: ICD-10- CM F43.10 Post-tr aumatic stress disorde r, unspeci fied CAGEPATRICK RodriguezA J 12/26 [place] [facility] [address]-2.59 [id number] Diagnos is: ICD-10- CM K02.52 Dental caries on pit and fissure surfc penetra t into dentin ANGELIKA MCLAUGHLIN AEMelissa 12/26 [place] [facility] SELF-MGMT EDUC & TRAIN 1 [place] [address]-4.59 [id number] Diagnos is: ICD-10- CM G47.33 Obstruc tive sleep apnea (adult) (pediat nikko) HUGH GARCIA JR 01/03 [place] [facility] Outpatient Encounter 64827-1.59 [id number] 86 01/09 [place] [facility] DENTAL SURFACE SCAN DIR 3D 75675-1.59 [id number] Diagnos is: ICD-10- CM K02.52 Dental caries on pit and fissure surfc penetra t into dentin ANGELIKA MCLAUGHLIN AEL 01/13 [place] [facility] CMPLX RPR E/N/E/L 2.6-7.5 [place] 9[address]-8.59 [id number] 17 Diagnos is: ICD-10- CM C44.320 Squamou s cell carcino ma of skin of unspeci fied parts of face KEREN SIGALA EVONNE P 01/21 [place] [facility] Outpatient Encounter 28242-5.59 [id number] 01/21 [place] [facility] Outpatient Encounter 63386-2.59 [id number] 01/21 [place] [facility] OFFICE O/P EST LOW 20 MIN 01859-7.59 [id number] Diagnos is: ICD-10- CM M67.40 Ganglio n, unspeci fied site OVI HARRIS W 01/21 [place] PSYTX W PT 60 MINUTES 50329-9.59 [id number] Diagnos is: ICD-10- CM F43.10 Post-tr aumatic stress disorde r, unspeci fied EVIE MARIN 01/28 [place] [facility] Outpatient Encounter 15328-9.59 [id number] 01/29 [place] POSTOP FOLLOW-UP VISIT 91350-9.59 [id number] 17 Diagnos is: ICD-10- CM Z01.818 Encount er for other preproc edural examina gabbie GONZALEZHEBER FLORES S 01/30 [place] Outpatient Encounter 76758-3.59 [id number] 06 COLIN HUMPHREYS Y P 01/30 [place] Outpatient Encounter 07770-4.59 [id number] 96 COLIN HUMPHREYS Y P 01/30 [place] Outpatient Encounter 48677-0.59 [id number] KEREN SIGALA P 01/30 [place] [facility] Outpatient Encounter 41344-7.59 [id number] 43 AGUSTO SCHWARTZ A 01/30 [place] Outpatient Encounter 53706-1.59 [id number] JERONIMO CHEUNG Y 01/30 [place] Outpatient Encounter 91735-5.59 [id number] 03 JERONIMO CHEUNG Y 01/30 [place] Outpatient Encounter 22792-2.59 [id number] 01/30 [place] [facility] EXC TR-EXT B9+CHINTAN 0.6-1 [place] 101[address]-8.59 [id number] CHINROGER JOCELYNE 01/30 [place] [facility] Outpatient Encounter 42780-7.59 [id number] Diagnos is: ICD-10- CM M71.341 Other bursal cyst, right hand COLIN HUMPHREYS Y P 01/30 [place] [facility] Outpatient Encounter 79784-6.59 [id number] 50 AGUSTO SCHWARTZ A 01/30 [place] Outpatient Encounter 01376-7.59 [id number] JOYCE MONTAGUE RICARDOSYLVIE E 01/30 [place] [facility] Outpatient Encounter 43710-9.59 [id number] 53 JOYCE MONTAGUE E 01/30 [place] [facility] Outpatient Encounter 40582-0.59 [id number] 01/30 [place] [facility] Outpatient Encounter 82837-2.59 [id number] 01/30 [place] [facility] Outpatient Encounter 92774-6.59 [id number] 01/31 [place] Outpatient Encounter 30001-0.59 [id number] 01/31 [place] [facility] HC PRO PHONE CALL 5-10 MIN 23432-0.59 [id number] 90 Diagnos is: ICD-10- CM M71.341 Other bursal cyst, right hand JEFFERSON,INLAY J 01/31 [place] Outpatient Encounter 34284-9.59 [id number] COLUMBACHELLY EN 02/04 [place] [facility] OFFICE O/P EST MOD 30 MIN 80766-5.59 [id number] Diagnos is: ICD-10- CM E11.40 Type 2 diabete s mellitu s with diabeti c neuropa thy, unsp STEINBERG,NAN CY K 02/13 [place] [facility] OFFICE O/P EST LOW 20 MIN 09115-7.59 [id number] 91 Diagnos is: ICD-10- CM M67.441 Ganglio n, right hand JERONIMO CHEUNG Y 02/13 [place] Outpatient Encounter 06922-9.59 [id number] 02/20 [place] ORAL HYGIENE INSTRUCTIO N 23585-5.59 [id number] Diagnos is: ICD-10- CM K08.431 Partial loss of teeth due to caries, class I LISSETTE,ANGELIKA AEL 02/26 [place] [facility] OFFICE O/P EST LOW 20 MIN 70850-2.59 [id number] 48 Diagnos is: ICD-10- CM M67.441 Ganglio n, right hand OVI HARRIS W 02/27 [place] OT EVAL LOW COMPLEX 30 MIN 61409-2.59 [id number] 34 Diagnos is: ICD-10- CM M67.441 Ganglio n, right hand SPEEDY SCOTT S 02/27 [place] [facility] OFF/OP EST MAY X REQ PHY/QHP 90258-6.59 [id number] Diagnos is: ICD-10- CM B35.1 Tinea unguium MAGAN CAMILO 02/28 [place] [facility] PSYTX W PT 60 MINUTES 81349-5.59 [id number] Diagnos is: ICD-10- CM F43.10 Post-tr aumatic stress disorde r, unspeci fied EVIE MARIN 03/04 [place] [facility] OFFICE O/P EST MOD 30 MIN 83110-4.59 [id number] 73 Diagnos is: ICD-10- CM M25.511 Pain in right shoulde r PELLANT,RI CK A 03/17 [place] ORTHC/PROS TC MGMT SBSQ ENC 21263-0.59 [id number] Diagnos is: ICD-10- CM E11.9 Type 2 diabete s mellitu s without complic ations PACK,PAMEL A S 03/18 [place] [facility] OFFICE O/P EST SF 10 MIN 87208-1.59 [id number] 10 Diagnos is: ICD-10- CM M67.441 Ganglio n, right hand STEVEN,BR ADFORD W 03/18 [place] Outpatient Encounter 00791-3.59 [id number] 03/27 [place] CORE BUILD-UP INCL ANY PINS 87040-9.59 [id number] Diagnos is: ICD-10- CM K02.52 Dental caries on pit and fissure surfc penetra t into dentin LISSETTE,ANGELIKA AEL 03/28 [place] [facility] PSYTX W PT 60 MINUTES 53411-3.59 [id number] Diagnos is: ICD-10- CM F43.10 Post-tr aumatic stress disorde r, unspeci fiEVIE Bird 04/01 [place] [facility] OFFICE O/P EST HI 40 MIN 42889-1.59 [id number] Diagnos is: ICD-10- CM F43.10 Post-tr aumatic stress disorde r, unspeci fiHERILNDA Bates 04/15 [place] [facility] Outpatient Encounter 94520-0.59 [id number] 04/15 [place] EMERGENCY DEPT VISIT MOD MDM 57271-1.59 [id number] 14 Diagnos is: ICD-10- CM R53.1 Cedrick guillermo KIM,RA YMOND JOCELINE 04/16 [place] Outpatient Encounter 34711-9.59 [id number] 04/16 [place] Outpatient Encounter [id number] [id number] 04/22 [place] [facility] PH1 ASSMT&MGMT NQHP 5-10 68319-7.59 [id number] Diagnos is: ICD-10- CM I11.9 Hyperte nsive 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 SHILAINDIANA E 04/22 [place] [facility] OFFICE O/P EST MOD 30 MIN 62232-0.59 [id number] 71 Diagnos is: ICD-10- CM H35.371 Puckeri ng of macula, right eye FIGUEROA,ER IC B 04/25 [place] OFFICE O/P EST MOD 30 MIN 20649-4.59 [id number] Diagnos is: ICD-10- CM R13.10 Dysphag ia, unspeci fied PARISH RELVIN H 04/29 [place] PSYTX W PT 60 MINUTES 97165-6.59 [id number] Diagnos is: ICD-10- CM F43.10 Post-tr aumatic stress disorde r, unspeci fied EVIE MARIN M 05/06 [place] [facility] PH1 ASSMT&MGMT NQHP 11-20 06586-2.59 [id number] Diagnos is: ICD-10- CM Z71.89 Other specifi ed certified alcohol counselor DEBORAH Mark L 05/06 [place] [facility] SYNCH AUDIO-ONLY NEW 15 66568-0.59 [id number] Diagnos is: ICD-10- CM I11.9 Hyperte nsive 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 DEBORAH WAGNER YOLANDA L 05/07 [place] [facility] DIAB SHOE FOR DENSITY INSERT 73196-1.59 [id number] Diagnos is: ICD-10- CM E11.9 Type 2 diabete s mellitu s without complic ations RITA PARK L 05/15 [place] [facility] Outpatient Encounter 72670-5.59 [id number] 05/15 [place] [facility] OFF/OP EST AUGUST X REQ PHY/QHP 16168-2.59 [id number] Diagnos is: ICD-10- CM Z71.89 Other specifi ed certified alcohol counselor ing [place] FUCHS E 05/15 [place] [facility] PH1 ASSMT&MGMT NQHP 5-10 62422-2.59 [id number] Diagnos is: ICD-10- CM I11.9 Hyperte nsive 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 [place] FUCHS E 05/15 [place] [facility] DENTAL BITEWING FOUR IMAGES 53892-4.59 [id number] Diagnos is: ICD-10- CM K03.6 Deposit s [accret ions] on teeth MATHEUS WATSON RA M 05/[address] [place] 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, unspeci fied [facility],MERE L 05/29 [place] [facility] Outpatient Encounter 88678-6.59 [id number] 05/29 [place] [facility] Outpatient Encounter 60645-6.59 [id number] 05/30 [place] [facility] Outpatient Encounter 80423-8.59 [id number] 05/30 [place] Outpatient Encounter 42018-6.59 [id number] 21 06/03 [place] Outpatient Encounter 85964-3.59 [id number] 25 06/05 [place] [facility] Outpatient Encounter 13866-3.59 [id number] 06/06 [place] [facility] OFF/OP EST MAY X REQ PHY/QHP 71663-1.59 [id number] Diagnos is: ICD-10- CM B35.1 Tinea ungMAGAN Albrecht 06/06 [place] [facility] Outpatient Encounter 22116-5.59 [id number] [facility] SE,MERE L 06/06 [place] [facility] Outpatient Encounter 00249-6.59 [id number] 06/09 [place] EXT ECG>7D<15D REC SCAN A/R 70035-5.59 [id number] Diagnos is: ICD-10- CM I11.9 Hyperte nsive 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 ABHIJEET GUILLEN A 06/10 [place] PSYTX W PT 60 MINUTES 49220-8.59 [id number] Diagnos is: ICD-10- CM F43.10 Post-tr aumatic stress disorde r, unspeci fied EVIE MARIN M 06/10 [place] [facility] Outpatient Encounter 40733-8.59 [id number] 06/12 [place] [facility] PH1 ASSMT&MGMT NQHP 5-10 36671-9.59 [id number] Diagnos is: ICD-10- CM Z71.2 Person consult ing for explana tion of exam or test finding LUIS A Quijano M 06/12 [place] [facility] Outpatient Encounter 72391-7.59 [id number] 06/13 [place] [facility] OFFICE O/P EST MOD 30 MIN 47377-5.59 [id number] Diagnos is: ICD-10- CM I25.10 Athscl heart disease of [place] coronar y artery w/o ang pctrs GASTON STEINBERG K 06/20 [place] [facility] Outpatient Encounter 76843-3.59 [id number] 06/20 [place] DENTURES ADJUST PART MANDBL 56312-0.59 [id number] Diagnos is: ICD-10- CM K08.431 Partial loss of teeth due to caries, class I LISSETTE,ANGELIKA AEL 06/24 [place] [facility] Outpatient Encounter 43671-5.59 [id number] 76 06/24 [place] Outpatient Encounter 71598-2.59 [id number] 06/27 [place] [facility] OFFICE O/P EST LOW 20 MIN 91388-4.59 [id number] 46 Diagnos is: ICD-10- CM I25.10 Athscl heart disease of [place] coronar y artery w/o ang pctrs XENIA JOHNSON Gabriel R 06/30 [place] BREATHING CAPACITY TEST 53857-7.59 [id number] 02 Diagnos is: ICD-10- CM J20.9 Acute bronchi tis, unspeci fied HEBER POST 07/01 [place] [facility] PSYTX W PT 60 MINUTES 20458-0.59 [id number] Diagnos is: ICD-10- CM F43.10 Post-tr aumatic stress disorde r, unspeci fied EVIE MARIN M 07/07 [place] [facility] OFFICE O/P EST LOW 20 MIN 37491-0.59 [id number] 82 Diagnos is: ICD-10- CM D48.5 Neoplas m of uncerta in behavio r of skin BLAIRE ROGERS TEN 07/08 [place] OFFICE O/P NEW MOD 45 MIN 17882-2.59 [id number] 11 Diagnos is: ICD-10- CM R91.8 Other nonspec ific abnorma l finding of lung field MICHELLE IVLLAGRAN 07/10 [place] [facility] Outpatient Encounter 65549-5.59 [id number] PURDOM,MAT THEW S 07/10 [place] [facility] PH1 ASSMT&MGMT NQHP 5-10 97962-3.59 [id number] 50 Diagnos is: ICD-10- CM Z71.89 Other specifi ed certified alcohol counselor Alfredito Gimenez 07/14 [place] Outpatient Encounter 35755-5.59 [id number] 44 07/22 [place] [facility] Outpatient Encounter 83786-9.59 [id number] WILLOW CANTU Y 07/24 [place] [facility] Outpatient Encounter 79311-9.59 [id number] 42 07/24 [facility] Procedures Combined list of: 1) Procedures from Department of Veterans Affairs facilities going back up to thelast 18 months, not all OR non-surgical procedures are included; 2) All procedures from the Department of Defense facilities. Procedure Procedure Type Code Date Perfomer Comments Sourc e EXCISION OF RIGHT LONG FINGER MUCOUS CYST EXC TR-EXT B9+CHINTAN 0.6-1 [place] [address] 01/31/2024 PELON CHEUNG [facility] Social History Combined list of available smoking, tobacco, and other social history from Department of Defense and Veterans Affairs facilities. Social History Type Response Date Comment Sourc e Tobacco smoking status NH[facility] OR-TOBACCO NEVER USED CIGARETTES 05/07/2024 [facility]/14[facility] History of tobacco use OR-TOBACCO NEVER USED 01/10/2023 [facility] History of tobacco use OR-TOBACCO NEVER USED 12/09/2021 [facility] History of tobacco use OR-TOBACCO NEVER USED 12/10/2020 [facility] History of tobacco use OR-TOBACCO NEVER USED 05/13/2019 [facility] History of tobacco use VA-TOBACCO NEVER USED 04/03/2018 [facility] History of tobacco use V9 LIFETIME NON-USER OF TOBACCO 05/07/2017 [facility] History of tobacco use V9 LIFETIME NON-USER OF TOBACCO 04/06/2016 [facility] History of tobacco use V9 LIFETIME NON-USER OF TOBACCO 01/26/2015 [facility] History of tobacco use V9 LIFETIME NON-USER OF TOBACCO 08/18/2013 [facility] History of tobacco use V9 LIFETIME NON-USER OF TOBACCO 09/18/2012 [facility] History of tobacco use V9 LIFETIME NON-USER OF TOBACCO 01/19/2012 [facility] History of tobacco use V9 LIFETIME NON-USER OF TOBACCO 09/13/2010 [facility] History of tobacco use V9 LIFETIME NON-USER OF TOBACCO 09/21/2006 [facility] History of tobacco use HF V9 LIFETIME NON-SMOKER 01/29/2006 [facility] History of tobacco use HF V9 LIFETIME NON-SMOKER 12/30/2004 [facility] History of tobacco use HF V9 LIFETIME NON-SMOKER 12/23/2003 [facility] Plan of Care List of future care activities from Department of [facility] Affairs facilities. Additional future care activities may be listed in the Assessment and Plan section. Date/Time Care Activity Care Activity Detail Edisi ty 07/24/2024 AMBULATORY - PSYCHIATRY AMBULATORY - PSYC HIATRY [facility]
--- OUTSIDE RECORDS SUMMARY | 2024-07-24 21:33 | XMS_ITS | Encounter Summary ---
Author Name [facility] [place] Address [address] [place] [address] Care Team Providers Care Floor Supervisor Name Role Phone CYNDI STEINBERG Primary Care [...] PART A Oct 14, 2009 PART A [id number] [phone] Alex CHE PATIENT MEDICARE (WNR) MEDICARE (M) PART B Oct 14, 2009 PART B [id number] Alex CHE PATIENT MEDICARE (WNR) MEDICARE (M) PART B Oct 14, 2009 PART B [id number] Alex CHE PATIENT MEDICARE (WNR) MEDICARE (M) PART A Oct 14, 2009 PART A [id number] Alex CHE PATIENT MEDICARE (WNR) MEDICARE (M) PART A Oct 14, 2009 PART A [id number] Alex CHE PATIENT MEDICARE (WNR) MEDICARE (M) PART B Oct 14, 2009 PART B [id number] Alex CHE PATIENT Selected Encounter This section includes the information on record at [place] for the Encounter. Date/Time Encounter Type Encounter Description Reason Provider Source Mar 18, 2024 10:00 AM OFFICE O/P EST SF 10 MIN PLASTIC SURGERY ICD-10-CM M67.441 Ganglion, right hand AGUSTIN HARRIS IHJennifer Encounter Template Text not used by [place] Assessments - Encounter Diagnoses This section includes the primary and secondary diagnoses documented for the Encounter. Date/Time Primary/Secondary Diagnosis Diagnosis Name Provider Source Apr 03, 2024 10:55 AM PRIMARY Ganglion, right hand [facility]USTIN HARRIS [facility] Plan of Treatment: Future Appointments [...] Appointment Type Appointme nt Facility Name Mar 28, 2024 08:00 AM AM[place]ATORY - NONE [place] [facility] Apr 01, 2024 10:00 AM AMBULATORY - PSYCHIATRY [facility] Apr 15, 2024 09:00 AM AMBULATORY - PS[facility]CHIATRY [facility] Apr 16, 2024 11:35 AM AMBULATORY - MEDICINE [facility] Apr 25, 2024 08:30 AM AMBUL[facility] - SURGERY [facility] [facility] Apr 29, 2024 10:00 AM AMBULATORY - MEDICINE J[facility]NE [facility] May 06, 2024 10:00 AM AMBULATORY - PSYCHIATRY [facility] May 07, 2024 10:00 AM AMBULATORY - MEDICINE [facility]NE [facility] May 15, 2024 10:30 AM AMBULATORY - REHAB MEDICIN E DANNY [facility] May 20, 2024 08:00 AM [facility]ORY [place] [facility]ONE [place] [facility] May 20, 2024 10:00 AM AMBULATORY - MEDICINE [facility]NE [facility] May 27, 2024 08:00 AM [place]ORY - [place]ONE [place] Jun 06, 2024 08:00 AM AMBULATORY - SURGERY DEANNEIN [facility] Jun 10, 2024 08:50 AM [facility] Jun 10, 2024 11:00 AM AMBULATORY - PSYCHIATRY LE XINJEWEL [facility] Jun 20, 2024 09:00 AM [facility]ORY [place] [facility]ONE [place] [facility] Jun 24, 2024 08:00 AM [facility]ORY [place] [facility]ONE [place] [facility] Jun 30, 2024 11:00 AM [facility]ORY [place] [facility]ONE [place] [facility] Jun 30, 2024 03:00 PM AMBULATORY - MEDICINE [facility] Jul 01, 2024 09:00 AM AMBULATORY - MEDICINE [facility] Lab Results: +/- 30 days [...] Type Comment Apr 16, 2024 01:17 PM [facility] COVID-19 AND FLU/RSV DIAGNOSTIC PANEL NASOPHARYNX S [...] currently unknown to infect humans. The Xpert XpGema SARS-CoV-2 test is a rapid, real-time RT-PCR test intended for the qualitative detection of nucleic acid from the SARS-CoV-2 in nasopharyngeal swab specimens collected from individuals suspected of COVID-19 in the acute phase of infection and is only for in vitro use under the Food and Drug Administration's Emergency Use Authorization. [employer] Genexpert (596) Ordering Provider: ADELSO KIM Report Released Date/Time: Apr 16, 2024 01:13 PM Reporting Lab: [address] [address] Performing Lab: [address] [address] COVID-19 PCR (FLUVID) Negative Negative FLU A PCR (FLUVID) Negative Negative FLU B PCR (FLUVID) Negative Negative RSV PCR (FLUVID) Negative Negative Apr 16, 2024 12:08 PM [facility] LACTIC ACID PLASMA Specimen Type : PLASMA No comment entered. Ordering Provider: ADELSO KIM Report Released Date/Time: Apr 16, 2024 01:19 PM Reporting Lab: [address] [address] Performing Lab: [address] [address] LACTIC ACID 2.8 mmol/L H 0.5-2.2 Apr 16, 2024 12:08 PM [facility] PROTHROMBIN TIME PLASMA Specimen Ty pe: PLASMA No comment entered. Ordering Provider: ADELSO KIM Report Released Date/Time: Apr 16, 2024 01:19 PM Reporting Lab: [address] [address] Performing Lab: [address] [address] PT PATIENT 13.2 s 11.7-14.4 INTERNATIONAL NORMALIZED RATIO 1.02 0 .87-1.14 Apr 16, 2024 12:08 PM [facility] MAGNESIUM PLASMA Specimen Type: PLASM A [...] I information resource can be reached in [facility] in the Tools menu, under the [...] decrease <15 G5 Kidney failure Ordering Provider: ADELSO KIM Report Released Date/Time: Apr 16, 2024 01:19 PM Reporting Lab: [address] [address] Performing Lab: [address] [address] MAGNESIUM 1.5 mg/dL L 1.6-2.6 Apr 16, 2024 12:08 PM [facility] CK TOTAL PLASMA Specimen Type: PLASM [...] decrease <15 G5 Kidney failure Ordering Provider: ADELSO KIM Report Released Date/Time: Apr 16, 2024 01:19 PM Reporting Lab: [address] [address] Performing Lab: [address] [address] CK TOTAL 64 U/L 30-200 Apr 16, 2024 12:08 PM [facility] HIGH SENSITIVITY TROPONIN I PLASMA Specimen [...] decrease <15 G5 Kidney failure Ordering Provider: ADELSO KIM Report Released Date/Time: Apr 16, 2024 01:19 PM Reporting Lab: [address] [address] Performing Lab: [address] [address] HIGH SENSITIVITY TROPONIN I <4 4-35 Apr 16, 2024 12:08 PM [facility] PHOSPHORUS PLASMA Specimen Type: PLASM A [...] I information resource can be reached in [facility] in the Tools menu, under the [...] decrease <15 G5 Kidney failure Ordering Provider: ADELSO KIM Report Released Date/Time: Apr 16, 2024 01:19 PM Reporting Lab: [address] [address] Performing Lab: [address] [address] PHOSPHORUS 2.5 mg/dL 2.3-4.7 Apr 16, 2024 12:08 PM [facility] BNP (STODDARD) PLASMA Specimen Type : PLASMA Comment: BNP results less than or equal to 100 pg/ml are real estate representative of normal values in patients without CHF. BNP results greater than 100 pg/ml are considered abnormal and suggestive of CHF. Higher BNP concentrations in the first 72 hours after Acute Coronary Syndrome are associated with an increased risk of , myocardial infarction and CHF. Ordering Provider: ADELSO KIM Report Released Date/Time: Apr 16, 2024 01:38 PM Reporting Lab: [address] [address] Performing Lab: [address] [address] BNP (STODDARD) <10 pg/mL 0-100 Apr 16, 2024 12:08 PM [facility] CBC/PLT BLOOD Specimen Type: BLOOD Comment: ~STAT Ordering Provider: ADELSO KIM Report Released Date/Time: Apr 16, 2024 01:19 PM Reporting Lab: [address] [address] Performing Lab: [address] [address] WBC 6.4 10*3/uL 5.0-10.0 RBC 5.02 10*6/uL 4.6-6.2 HGB 15.0 g/dL 14.0-18.0 HCT 44.3 42.0-52.0 MCV 88.2 fL 80.0-94.0 MCH 29.9 pg 27.0-31.0 MCHC 33.9 g/dL 32.0-36.0 PLT 208 10*3/uL 150-450 MPV 11.1 fL 9.0-13.1 RDW 14.1 11.0-16.0 NRBC 0.0 0.0-0.0 Apr 16, 2024 12:08 PM [facility] AUTOMATED DIFF BLOOD Specimen Type : BLOOD Comment: ~STAT Ordering Provider: ADELSO KIM Report Released Date/Time: Apr 16, 2024 01:19 PM Reporting Lab: [address] [address] Performing Lab: [address] [address] A-LYMPH % 14.8 L 24.0-44.0 A-MONO % 4.7 0.1-6.0 A-GRAN % 79.5 H 42.0-75.0 A-LYMPH # 0.94 10*3/uL L 1.20-3.40 A-MONO # 0.30 10*3/uL 0.00-0.60 A-GRAN # 5.07 10*3/uL 1.40-6.50 A-BASO % 0.2 0.0-3.0 A-BASO # 0.01 10*3/uL 0.00-0.20 A-EOS % 0.3 0.0-10.0 A-EOS # 0.02 10*3/uL 0.00-0.70 A-IG % 0.5 0.0-0.5 A-IG # 0.03 10*3/uL 0.00-0.06 Apr 16, 2024 12:08 PM [facility] PANEL 5 PLASMA Specimen Type: PLASM [...] I information resource can be reached in [facility] in the Tools menu, under the [...] decrease <15 G5 Kidney failure Ordering Provider: ADELSO KIM Report Released Date/Time: Apr 16, 2024 01:19 PM Reporting Lab: [address] [address] Performing Lab: [address] [address] CREATININE 1.48 mg/dL H 0.72-1.25 UREA NITROGEN [...] the Encounter. The data comes from all [place] treatment facilities. Date/Time Radiology Report Provider Source Apr 16, 2024 01:47 PM SHOULDER-LEFT 2 OR MORE VIEWS: ADELSO CHE [id number] -1945 M Exm Date: APR 16, 2024@13:47 Req Phys: LUPE MILES Loc: [facility] ORTHO/ATT3/CD (Req'g Loc) Img Loc: CDD RADIOLOGY Service: Unknown [place] [id number] (Case [id number] COMPLETE) SHOULDER-LEFT 2 OR MORE VIEWS (RAD Detailed) CPT:11926 Reason for Study: LEFT SHOULDER PAIN Clinical History: Report Status: Verified Date Reported: APR 17, 2024 Date Verified: APR 17, 2024 Drawer Waxer E-Sig: Report: SHOULDER-LEFT 2 OR MORE VIEWS, 04/16/2024 3:06 PM EST INDICATION: LEFT SHOULDER PAIN COMPARISON: None Impression: No acute fracture or malalignment. Mild glenohumeral and AC joint degenerative change. Primary Diagnostic Code: NO ALERT REQUIRED Primary Interpreting Staff: ALFONZO STEELE, Staff Physician Verified by hand molder for ALFONZO STEELE /ALFONZO DEGROOT [facility] Apr 16, 2024 01:47 PM CHEST SINGLE(1) EW: ADELSO CHE NATHANIEL [id number] -1945 M Exm Date: APR 16, 2024@13:47 Req Phys: ADELSO KIM Loc: ED/7A-4PM (Req'g Loc) Img Loc: CDD RADIOLOGY Service: [place] [address] (Case [id number] COMPLETE) CHEST SINGLE(1) VIEW (RAD Detailed) CPT:41693 Proc Modifiers : PORTABLE EXAM Reason for Study: WEAKNESS, COUGH Clinical History: Report Status: Verified Date Reported: APR 17, 2024 Date Verified: APR 17, 2024 Drawer Waxer E-Sig: Report: CHEST SINGLE(1) VIEW, 04/16/2024 3:06 PM EST INDICATION: WEAKNESS, COUGH COMPARISON: February 10, 2023 FINDINGS: Support apparatus: None. Heart/Mediastinum: Normal size and contours. Lungs/Pleura: Patchy basilar opacities. No pleural effusion or pneumothorax. Upper abdomen: Unremarkable. Bones/Soft tissues: No acute abnormality. Impression: Bibasilar atelectasis or infiltration. Primary Diagnostic Code: SIGNIFICANT ABNORMALITY, ATTN NEEDED Primary Interpreting Staff: ALFONZO STEELE Staff Physician Verified by hand molder for ALFONZO STEELE [facility] Encounter Notes: All associated encounter notes This section contains the clinical notes associated to the Encounter. Date/Time Encounter Note(s) Provider Source Mar 18, 2024 10:51 AM PLASTIC SURGERY NU RSING OUTPATIENT NOTE: LOCAL TITLE: PLASTIC SURGERY CLINIC NURSING EXIT NOTE STANDARD TITLE: PLASTIC SURGERY NURSING OUTPATIENT NOTE DATE OF NOTE: MAR 18, 2024@10:51 ENTRY DATE: MAR 18, 2024@10:51:46 AUTHOR: COLLINS PETER EXP COSIGNER: URGENCY: STATUS: COMPLETED Chart reviewed. Pt seen by PA who provided care to the patient. Pt exited clinic per PA. Pt doing well, no further treatment needed at this time. Pt can follow up with plastics as needed. Assessment/Plan: 1. Mucous cyst right long finger s/p excision 01/31/2024. -Well-healed incision without signs of infection -No evidence of residual mucous cyst -Follow-up evaluation as needed Plan: Pt discharged from plastic surgery, can follow up PRN /es/ COLLINS PETER Surgery [employer] Manager Signed: 03/18/2024 10:52 COLLINS PETER[facility] Mar 18, 2024 09:38 AM PLASTIC SURGERY OU TPATIENT NOTE: LOCAL TITLE: PLASTIC SURGERY CLINIC PROGRESS NOTE STANDARD TITLE: PLASTIC SURGERY OUTPATIENT NOTE DATE OF NOTE: MAR 18, 2024@09:38 ENTRY DATE: MAR 18, 2024@09:38:30 AUTHOR: QUITA HARRIS EXP COSIGNER: URGENCY: STATUS: COMPLETED Recent VITALS: Pain: 0 (03/18/2024 09:31) BP: 126/80 (03/18/2024 09:31) Temp: 97.9 F [36.6 C] (03/18/2024 09:31) Resp: 16 (02/14/2024 08:25) Pulse: 85 (03/18/2024 09:31) MAR 18, 2024@09:31:15 -- PULSE OXIMETRY: 95 Ht: 70 in [177.8 cm] (01/22/2024 11:17) Wt: 205 lb [92.99 kg] (03/18/2024 09:31) Active problems - Computerized Problem List is [...] bronchus, and lung 10. Osteoarthritis (SNOMED CT 965578206) 11. Gastro-esophageal reflux disease with esophagitis (SNOMED CT 685348530) 12. Allergic rhinitis * 13. Hypertension (SNOMED CT 36440434) 14. Diabetes mellitus (SNOMED CT 21143811) 15. NEPHROLITHIASIS 16. Gout * Active Outpatient Medications (including Supplies): Active Outpatient Medications Status 1) ACCU-CHEK GUIDE (GLUCOSE) TEST STRIP USE 1 STRIP TO ACTIVE (S) TEST BLOOD SUGAR 3-4 TIMES WEEKLY 2) ALOH 160/MG CARB 105MG CHEW TAB CHEW 1 TABLET BY ACTIVE MOUTH AFTER MEALS NEEDED FOR INDIGESTION/REFLUX 3) CEPHALEXIN 500MG CAP TAKE ONE CAPSULE BY MOUTH THREE ACTIVE TIMES A DAY FOR SKIN OR SOFT TISSUE INFECTION 4) CHOLECALCIF 25MCG (D3-1,000UNIT) TAB TAKE FOUR ACTIVE (S) TABLETS BY MOUTH DAILY FOR VITAMIN D SUPPLEMENT 5) CLOTRIMAZOLE 1% TOP SOLN APPLY SMALL AMOUNT TO ACTIVE AFFECTED AREA TWICE A DAY FOR FUNGAL INFECTION 6) CYANOCOBALAMIN 1000MCG TAB TAKE ONE TABLET BY MOUTH ACTIVE DAILY FOR VITAMIN B12 SUPPLEMENT 7) DICLOFENAC NA 1% TOP GEL APPLY SMALL AMOUNT TO ACTIVE (S) AFFECTED AREA EVERY 6 HOURS NEEDED FOR SHOULDER PAIN 8) FLUTICASONE PROP 50MCG 120D NASAL INHL USE 2 SPRAYS ACTIVE (S) IN EACH NOSTRIL DAILY FOR NASAL ALLERGY 9) GABAPENTIN 300MG CAP TAKE ONE CAPSULE BY MOUTH EVERY ACTIVE MORNING AND TAKE ONE CAPSULE AT NOON AND TAKE TWO CAPSULES EVERY EVENING FOR PAIN 10) HCTZ 12.5MG/LOSARTAN 100MG TAB TAKE 1 TABLET BY MOUTH ACTIVE (S) DAILY FOR BLOOD PRESSURE/HEART 11) LIDOCAINE 5% 5IN X 6IN PATCH APPLY 2 PATCHES TO SKIN ACTIVE DAILY FOR PAIN -LEAVE ON 12 HOURS, THEN REMOVE FOR 12 HOURS 12) LORATADINE 10MG TAB TAKE ONE TABLET BY MOUTH DAILY ACTIVE (S) FOR ALLERGIES 13) METFORMIN HCL 1000MG TAB TAKE ONE TABLET BY MOUTH ACTIVE (S) TWICE A DAY FOR DIABETES 14) MIRTAZAPINE 15MG TAB TAKE ONE-HALF TABLET BY MOUTH AT ACTIVE (S) BEDTIME FOR SLEEP 15) MUPIROCIN 2% OINT APPLY SMALL AMOUNT TO AFFECTED AREA ACTIVE DAILY TO PREVENT INFECTION -APPLY DAILY TO TREATMENT SITES AFTER CLEANING. THIS IS A TOPICAL ANTIBIOTIC. 16) PANTOPRAZOLE NA 40MG EC TAB TAKE ONE TABLET BY MOUTH ACTIVE TWICE A DAY 30 MINUTES BEFORE A MEAL FOR STOMACH -TAKE ON AN EMPTY STOMACH. 17) PIOGLITAZONE HCL 30MG TAB TAKE ONE TABLET BY MOUTH ACTIVE (S) DAILY FOR DIABETES 18) PRAZOSIN HCL 5MG CAP TAKE ONE CAPSULE BY MOUTH AT ACTIVE (S) BEDTIME FOR NIGHTMARES 19) SERTRALINE HCL 100MG TAB TAKE ONE AND ONE-HALF ACTIVE TABLETS BY MOUTH EVERY MORNING FOR MOOD 20) TRIAMCINOLONE ACETONIDE 0.1% OINT APPLY SMALL AMOUNT ACTIVE TO AFFECTED AREA TWICE A DAY FOR SKIN RASH Nursing note reviewed PMHx/HPI: Mr. Adelso che is a 78-year-old male RHD who is s/p excision of mucous cyst from the right long finger 01/31/2024. On the patient's first postop visit there was localized erythema and edema of the surgical incision site prompted initiation of antibiotics. Patient presents today stating his finger is markedly improved without further evidence of erythema, exudate, streaking redness, or associated fever. Patient states is healed quite nicely and that he is only experiencing minor nail deformity. He states he has full range of motion of all digits and no loss of sensation. He remains active is able to complete all ADLs independently. ROS: [...] RRR EXT: Focused exam of the right upper extremity over the right long finger distal phalanx ulnar aspect reveals a well-healed incision without signs of localized erythema or exudate. Presently there is deformity of the nail plate over the ulnar aspect which appears to be growing a new nail at present. The patient is able to make a composite fist. Active and passive FROM of all digits. SILT R/M/U. Capillary refill less than 2 seconds. NEURO: CN II-XII grossly intact, no obvious neurological deficits. PSYCH: Euthymic, congruent mood. Assessment/Plan: 1. Mucous cyst right long finger s/p excision 01/31/2024. -Well-healed incision without signs of infection -No evidence of residual mucous cyst -Follow-up evaluation as needed Time Spent: Pt. seen for 18 minutes for initial new patient/follow-up Plastic Surgery Clinic visit. This time was used to review recent tests, imaging, and laboratory results. Obtained and reviewed separate patient histories. Performed medically appropriate examination. Ordered medications, laboratory tests and other medically indicated procedures. Documented clinical information in the EMR and communicated with other health career and guidance counselor. /peyton/ QUITA HARRIS Physician Linux Developer Signed: 03/18/2024 09:52 QUITA HARRIS-THIERRYD [facility] Mar 18, 2024 09:32 AM SURGERY NURSING NO TE: LOCAL TITLE: SURGERY CLINIC INTAKE NOTE STANDARD TITLE: SURGERY NURSING NOTE DATE OF NOTE: MAR 18, 2024@09:32 ENTRY DATE: MAR 18, 2024@09:32:34 AUTHOR: ALEXANDREA MARTINEZ COSIGNER: URGENCY: STATUS: COMPLETED The patient was [...] of active outpatient prescriptions dispensed from this [place] (local) and dispensed from another [place] or [facility] facility (remote) as well as inpatient orders (local pending and active), local clinic medications, locally documented non-VA medications, and local prescriptions that have or been discontinued in the past 90 days. Non-VA Meds Last Documented On: Data not found NOTE The display of VA prescriptions dispensed from another [place] or [facility] facility (remote) is limited to active outpatient prescription entries matched to National Drug File at the originating site and may not include some items such as investigational drugs, compounds, etc. NOT INCLUDED IN THIS LIST: Medications self-entered by the patient into personal health records (i.e. [employer]) are NOT included in this list. Non-VA medications documented outside this [place], remote inpatient orders (regardless of status) and remote clinic medications are NOT included in this list. The patient and provider must always discuss medications the patient is taking, regardless of where the medication was dispensed or obtained. OUTPT ALOH 160/MG CARB 105MG CHEW TAB (Status = Active) CHEW 1 TABLET BY MOUTH AFTER MEALS NEEDED FOR INDIGESTION/REFLUX Rx# [id number] Last Released: 02/06/24 Qty/Days Supply: 100/30 Rx Expiration Date: 10/26/24 Refills Remainin Indication: FOR STOMACH OUTPT CEPHALEXIN 500MG CAP (Status = Active) TAKE ONE CAPSULE BY MOUTH THREE TIMES A DAY FOR SKIN OR SOFT TISSUE INFECTION Rx# [id number] Last Released: 02/28/24 Qty/Days Supply: 03/11 Rx Expiration Date: 03/29/24 Refills Remainin Indication: FOR SKIN OR SOFT TISSUE INFECTION OUTPT CHOLECALCIF 25MCG (D3-1,000UNIT) TAB (Status = Discontinued) TAKE FOUR TABLETS BY MOUTH DAILY FOR VITAMIN D SUPPLEMENT Rx# [id number] Last Released: 11/30/23 Qty/Days Supply: 400/90 Rx Expiration Date: 01/11/24 Refills Remainin OUTPT CHOLECALCIF 25MCG (D3-1,000UNIT) TAB (Status = Active/Suspended) TAKE FOUR TABLETS BY MOUTH DAILY FOR VITAMIN D SUPPLEMENT Rx# [id number] Last Released: 02/19/24 Qty/Days Supply: 400/90 Rx Expiration Date: 02/14/25 Refills Remainin OUTPT CLINDAMYCIN PHOSPHATE 1% TOP GEL (Status = Discontinued) APPLY SMALL AMOUNT TO AFFECTED AREA TWICE A DAY FOR INFECTION Rx# [id number] Last Released: 04/24/23 Qty/Days Supply: 60/30 Rx Expiration Date: 03/15/24 Refills Remainin Indication: FOR INFECTION OUTPT CLOTRIMAZOLE 1% TOP SOLN (Status = Active) APPLY SMALL AMOUNT TO AFFECTED AREA TWICE A DAY FOR FUNGAL INFECTION Rx# [id number] Last Released: 02/05/24 Qty/Days Supply: 30 Rx Expiration Date: 07/13/24 Refills Remainin Indication: FOR FUNGAL INFECTION OUTPT CYANOCOBALAMIN 1000MCG TAB (Status = Discontinued) TAKE ONE TABLET BY MOUTH DAILY FOR VITAMIN B12 SUPPLEMENT Rx# [id number] Last Released: 12/03/23 Qty/Days Supply: 90/90 Rx Expiration Date: 07/16/24 Refills Remainin Indication: FOR VITAMIN B12 SUPPLEMENT OUTPT CYANOCOBALAMIN 1000MCG TAB (Status = Active) TAKE ONE TABLET BY MOUTH DAILY FOR VITAMIN B12 SUPPLEMENT Rx# [id number] Last Released: 03/03/24 Qty/Days Supply: 90/90 Rx Expiration Date: 02/14/25 Refills Remainin Indication: FOR VITAMIN B12 SUPPLEMENT OUTPT DICLOFENAC NA 1% TOP GEL (Status = Discontinued) APPLY SMALL AMOUNT TO AFFECTED AREA EVERY 6 HOURS NEEDED FOR SHOULDER PAIN Rx# [id number] Last Released: 11/30/23 Qty/Days Supply: 300/90 Rx Expiration Date: 01/11/24 Refills Remainin OUTPT DICLOFENAC NA 1% TOP GEL (Status = Active/Suspended) APPLY SMALL AMOUNT TO AFFECTED AREA EVERY 6 HOURS NEEDED FOR SHOULDER PAIN Rx# [id number] Last Released: 02/18/24 Qty/Days Supply: 300/90 Rx Expiration Date: 02/14/25 Refills Remainin OUTPT FLUTICASONE PROP 50MCG 120D NASAL INHL (Status = Discontinued) USE 2 SPRAYS IN EACH NOSTRIL DAILY FOR NASAL ALLERGY Rx# [id number] Last Released: 11/30/23 Qty/Days Supply: Rx Expiration Date: 01/11/24 Refills Remainin OUTPT FLUTICASONE PROP 50MCG 120D NASAL INHL (Status = Active/Suspended) USE 2 SPRAYS IN EACH NOSTRIL DAILY FOR NASAL ALLERGY Rx# [id number] Last Released: 02/19/24 Qty/Days Supply: Rx Expiration Date: 02/14/25 Refills Remainin OUTPT GABAPENTIN 300MG CAP (Status = Discontinued) TAKE ONE CAPSULE BY MOUTH EVERY MORNING AND TAKE ONE CAPSULE AT NOON AND TAKE TWO CAPSULES EVERY EVENING FOR PAIN Rx# [id number] Last Released: 02/07/24 Qty/Days Supply: 120/30 Rx Expiration Date: 10/23/24 Refills Remainin Indication: FOR NERVE PAIN OUTPT GABAPENTIN 300MG CAP (Status = Active) TAKE ONE CAPSULE BY MOUTH EVERY MORNING AND TAKE ONE CAPSULE AT NOON AND TAKE TWO CAPSULES EVERY EVENING FOR PAIN Rx# [id number] Last Released: 02/16/24 Qty/Days Supply: 120/30 Rx Expiration Date: 02/14/25 Refills Remainin Indication: FOR NERVE PAIN OUTPT HCTZ 12.5MG/LOSARTAN 100MG TAB (Status = Discontinued) TAKE 1 TABLET BY MOUTH DAILY FOR BLOOD PRESSURE/HEART Rx# [id number] Last Released: 12/01/23 Qty/Days Supply: 90 Rx Expiration Date: 07/16/24 Refills Remainin Indication: FOR BLOOD PRESSURE/HEART OUTPT HCTZ 12.5MG/LOSARTAN 100MG TAB (Status = Active/Suspended) TAKE 1 TABLET BY MOUTH DAILY FOR BLOOD PRESSURE/HEART Rx# [id number] Last Released: 03/03/24 Qty/Days Supply: 9090 Rx Expiration Date: 02/14/25 Refills Remainin Indication: FOR BLOOD PRESSURE/HEART OUTPT HYDROPHILIC (EQV EUCERIN) TOP CREAM (Status = Discontinued) APPLY SMALL AMOUNT TO AFFECTED AREA TWICE A DAY NEEDED FOR DRY SKIN Rx# [id number] Last Released: 04/23/23 Qty/Days Supply: 454/30 Rx Expiration Date: 01/11/24 Refills Remainin OUTPT LIDOCAINE 5% 5IN X 6IN PATCH (Status = Discontinued) APPLY 2 PATCHES TO SKIN DAILY FOR PAIN -LEAVE ON 12 HOURS, THEN REMOVE FOR 12 HOURS Rx# [id number] Last Released: 11/30/23 Qty/Days Supply: 6030 Rx Expiration Date: 01/11/24 Refills Remainin Indication: FOR PAIN OUTPT LIDOCAINE 5% 5IN X 6IN PATCH (Status = Active) APPLY 2 PATCHES TO SKIN DAILY FOR PAIN -LEAVE ON 12 HOURS, THEN REMOVE FOR 12 HOURS Rx# [id number] Last Released: 02/27/24 Qty/Days Supply: 60/30 Rx Expiration Date: 02/14/25 Refills Remainin Indication: FOR PAIN OUTPT LORATADINE 10MG TAB (Status = Discontinued) TAKE ONE TABLET BY MOUTH DAILY FOR ALLERGIES Rx# [id number] Last Released: 11/30/23 Qty/Days Supply: 9090 Rx Expiration Date: 07/16/24 Refills Remainin OUTPT LORATADINE 10MG TAB (Status = Active/Suspended) TAKE ONE TABLET BY MOUTH DAILY FOR ALLERGIES Rx# [id number] Last Released: 03/03/24 Qty/Days Supply: 9090 Rx Expiration Date: 02/14/25 Refills Remainin OUTPT METFORMIN HCL 1000MG TAB (Status = Discontinued) TAKE ONE TABLET BY MOUTH TWICE A DAY FOR DIABETES Rx# [id number] Last Released: 11/30/23 Qty/Days Supply: 18090 Rx Expiration Date: 01/11/24 Refills Remainin OUTPT METFORMIN HCL 1000MG TAB (Status = Active/Suspended) TAKE ONE TABLET BY MOUTH TWICE A DAY FOR DIABETES Rx# [id number] Last Released: 02/19/24 Qty/Days Supply: 180/90 Rx Expiration Date: 02/14/25 Refills Remainin OUTPT MIRTAZAPINE 15MG TAB (Status = Discontinued) TAKE ONE-HALF TABLET BY MOUTH AT BEDTIME FOR SLEEP Rx# [id number] Last Released: 10/26/23 Qty/Days Supply: 45 Rx Expiration Date: 12/26/23 Refills Remainin Indication: FOR SLEEP OUTPT MIRTAZAPINE 15MG TAB (Status = Active/Suspended) TAKE ONE-HALF TABLET BY MOUTH AT BEDTIME FOR SLEEP Rx# [id number] Last Released: 01/17/24 Qty/Days Supply: 45 Rx Expiration Date: 12/27/24 Refills Remainin Indication: FOR SLEEP OUTPT MUPIROCIN 2% OINT (Status = Active) APPLY SMALL AMOUNT TO AFFECTED AREA DAILY TO PREVENT INFECTION -APPLY DAILY TO TREATMENT SITES AFTER CLEANING. THIS IS A TOPICAL ANTIBIOTIC. Rx# [id number] Last Released: 02/19/24 Qty/Days Supply: Rx Expiration Date: 01/22/25 Refills Remainin Indication: TO PREVENT INFECTION OUTPT PANTOPRAZOLE NA 40MG EC TAB (Status = Active) TAKE ONE TABLET BY MOUTH TWICE A DAY 30 MINUTES BEFORE A MEAL FOR STOMACH -TAKE ON AN EMPTY STOMACH. Rx# [id number] Last Released: 11/30/23 Qty/Days Supply: 180/ Rx Expiration Date: 06/26/24 Refills Remainin Indication: FOR STOMACH OUTPT PIOGLITAZONE HCL 30MG TAB (Status = Discontinued) TAKE ONE TABLET BY MOUTH DAILY FOR DIABETES Rx# [id number] Last Released: 12/01/23 Qty/Days Supply: 90 Rx Expiration Date: 01/11/24 Refills Remainin Indication: FOR BLOOD SUGAR OUTPT PIOGLITAZONE HCL 30MG TAB (Status = Active/Suspended) TAKE ONE TABLET BY MOUTH DAILY FOR DIABETES Rx# [id number] Last Released: 03/03/24 Qty/Days Supply: 90 Rx Expiration Date: 02/14/25 Refills Remainin Indication: FOR BLOOD SUGAR OUTPT PRAZOSIN HCL 5MG CAP (Status = Discontinued) TAKE ONE CAPSULE BY MOUTH AT BEDTIME FOR NIGHTMARES Rx# [id number] Last Released: 10/26/23 Qty/Days Supply: 90 Rx Expiration Date: 12/26/23 Refills Remainin Indication: FOR NIGHTMARES OUTPT PRAZOSIN HCL 5MG CAP (Status = Active/Suspended) TAKE ONE CAPSULE BY MOUTH AT BEDTIME FOR NIGHTMARES Rx# [id number] Last Released: 01/17/24 Qty/Days Supply: 90 Rx Expiration Date: 12/27/24 Refills Remainin Indication: FOR NIGHTMARES OUTPT SERTRALINE HCL 100MG TAB (Status = Discontinued) TAKE ONE AND ONE-HALF TABLETS BY MOUTH EVERY MORNING FOR MOOD Rx# [id number] Last Released: 10/11/23 Qty/Days Supply: 135/90 Rx Expiration Date: 12/26/23 Refills Remainin Indication: FOR MOOD OUTPT SERTRALINE HCL 100MG TAB (Status = Active) TAKE ONE AND ONE-HALF TABLETS BY MOUTH EVERY MORNING FOR MOOD Rx# [id number] Last Released: 01/01/24 Qty/Days Supply: Rx Expiration Date: 12/27/24 Refills Remainin Indication: FOR MOOD OUTPT TRAMADOL HCL 50MG TAB (Status = ) TAKE ONE TABLET BY MOUTH EVERY 6 HOURS NEEDED FOR PAIN Rx# [id number] Last Released: 01/31/24 Qty/Days Supply: 02/09 Rx Expiration Date: 03/01/24 Refills Remainin Indication: FOR PAIN OUTPT TRIAMCINOLONE ACETONIDE 0.1% OINT (Status = Active) APPLY SMALL AMOUNT TO AFFECTED AREA TWICE A DAY FOR SKIN RASH Rx# [id number] Last Released: 02/07/24 Qty/Days Supply: Rx Expiration Date: 11/29/24 Refills Remainin Indication: FOR SKIN RASH SUPPLIES OUTPT ACCU-CHEK GUIDE (GLUCOSE) TEST STRIP (Status = Discontinued) USE 1 STRIP TO TEST BLOOD SUGAR 3-4 TIMES WEEKLY Rx# [id number] Last Released: 11/30/23 Qty/Days Supply: Rx Expiration Date: 01/11/24 Refills Remainin OUTPT ACCU-CHEK GUIDE (GLUCOSE) TEST STRIP (Status = Active/Suspended) USE 1 STRIP TO TEST BLOOD SUGAR 3-4 TIMES WEEKLY Rx# [id number] Last Released: 02/19/24 Qty/Days Supply: 50 Rx Expiration Date: 02/14/25 Refills Remainin /peyton/ Alexandrea Martinez Health Command And Control Specialist Signed: 03/18/2024 09:33 ALEXANDREA MARTINEZ-LOWELL [facility]
--- OUTSIDE RECORDS SUMMARY | 2024-07-24 21:33 | XMS_ITS ---
Author Name [facility] [place] [facility] [place] Address [address] [place] [id number] Care Team Providers Care Instrumentation And Controls Designer Name Role Phone LAURA MCKEON Primary Care [...] PART A Oct 14, 2009 PART A [id number] Alex GALLEGO PATIENT MEDICARE (WNR) MEDICARE (M) PART B Oct 14, 2009 PART B [id number] Alex GALLEGO PATIENT MEDICARE (WNR) MEDICARE (M) PART A Oct 14, 2009 PART A [id number] Alex GALLEGO PATIENT MEDICARE (WNR) MEDICARE (M) PART B Oct 14, 2009 PART B [id number] Alex GAL[place] PATIENT MEDICARE (WNR) MEDICARE (M) PART A Oct 14, 2009 PART A [id number] [phone] Alex GALLEGO PATIENT MEDICARE (WNR) MEDICARE (M) PART B Oct 14, 2009 PART B [id number] Alex GALLEGO PATIENT Selected Encounter This section includes the information on record at [place] for the Encounter. Date/Time Encounter Type Encounter Description Reason Pro vider Source Jul 22, 2024 12:28 PM Outpatient Encounter ADMIN PAT ACTIVTIES (MASNONCT) IHE Encounter Template Text not used by [place] Plan of Treatment: Future Appointments (+ 6 months) and Future Tests (+/- 45 days) The Plan of Treatment section includes future care activities for the patient from all [place] [facility]. This section includes future appointments and future orders which are active, pending or scheduled. Future Appointments This section includes appointments that were scheduled to occur 6 months from the date of the Encounter, up to a maximum of 20 appointments. The data comes from all [place] treatment facilities. Appointment Date/Time Appointment Type Appointme nt Facility Name Jul 24, 2024 03:00 PM AMBULATORY - PSY[facility]IATRY [facility] Aug 05, 2024 09:00 AM AMBULATORY - MEDICINE [facility] Aug 11, 2024 10:00 AM AMBULATORY - PSYCHIATRY [facility] Aug 12, 2024 09:00 AM AMBULATORY - MEDICINE [facility] August 18, 2024 09:00 AM [facility] September 02, 2024 08:20 AM [facility] Oct 01, 2024 09:00 AM AMBULATORY - NONE [facility] Oct 30, 2024 09:00 AM AMBULATORY - PSYCHIATRY [facility] Dec 09, 2024 08:00 AM AMBULATORY - NONE [facility] Dec 31, 2024 08:30 AM AMBULATORY - MEDICINE [facility] Jan 16, 2025 08:00 AM AMBULATORY - NONE [facility] Lab Results: +/- 30 days of the encounter This section includes the Chemistry and Hematology Lab Results on record with [place] for the patient. Radiology Reports and Pathology Reports are provided separately, in subsequent sections. Lab Results This section contains the Chemistry/Hematology Results that were resulted 30 days before or 30 daysafter the date of the Encounter. Date/Time Source Result Type Result - Unit Interpretation Reference Range Specimen Type Comment Jun 30, 2024 03:27 PM [facility] BNP (STODDARD) PLASMA Specimen Type: PLASMA Comment: BNP results less than or equal to 100 pg/ml are sales representative trainee of normal values in patients without CHF. BNP results greater than 100 pg/ml are considered abnormal and suggestive of CHF. Higher BNP concentrations in the first 72 hours after Acute Coronary Syndrome are associated with an increased risk of , myocardial infarction and CHF. Ordering Provider: SACHI SAINZ Report Released Date/Time: Jun 30, 2024 03:21 PM Reporting Lab: [address] [address] Performing Lab: [address] [address] BNP (STODDARD) 22 pg/mL 0-100 Jun 30, 2024 03:27 PM [facility] PANEL 1 PLASMA Specimen Type: [...] Jun 30, 2024 03:21 PM Reporting Lab: [address] [address] Performing Lab: [address] [address] CREATININE 1.43 mg/dL H 0.72-1.25 UREA NITROGEN 22 mg/dL 9-25 GLUCOSE 164 mg/dL H 74-100 SODIUM 139 mmol/L 136-145 POTASSIUM 3.7 mmol/L 3.5-5.1 CHLORIDE 102 mmol/L 98-107 CO2 27 mmol/L 22-29 CALCIUM 9.8 mg/dL 8.4-10.2 ANION GAP 10 meq/L 3-19 eGFR (CKD-EPI) 50 Jun 30, 2024 03:27 PM [facility] CBC/PLT BLOOD Specimen Type: BLOOD No comment entered. Ordering Provider: SACHI SAINZ Report Released Date/Time: Jun 30, 2024 03:21 PM Reporting Lab: [address] [address] Performing Lab: [address] [address] WBC 7.2 10*3/uL 5.0-10.0 RBC 4.85 10*6/uL [...] the Encounter. The data comes from all [place] treatment facilities. Date/Time Pathology Report Provider Source Jul 10, 2024 09:41 AM [facility] REPORT: LOCAL TITLE: LR SURGICAL PATHOLOGY REPORT DATE OF NOTE: JUL 10, 2024@09:41:15 ENTRY DATE: JUL 10, 2024@09:41:15 AUTHOR: JOE LEUNG COSIGNER: URGENCY: STATUS: COMPLETED $APHDR Reporting Lab: [facility] [IA# [id number]] [address] [place] [id number] - - - - - - - [...] left earlobe and consists of an unoriented, [id number]-knqqcdl, yellow/white shave of skin measuring 0.5 x 0.4 x 0.2 cm. A rough papule is identified over the skin surface measuring 0.4 x 0.3 cm. The cut surface is yellow/white and grossly unremarkable. The cut surface is inked blue. The specimen is bisected to reveal a white solid interior. The specimen is submitted entirely in a single cassette. 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 /peyton/ JOE LEUNG pathologist Signed Jul 10, 2024@09:41 Performing Laboratory: Surgical Pathology Report Performed By: [facility] [IA# [id number]] [address] [place] [address] $FTR - - - - - - - - - - - - - - - - - - - - - - - - - - - - - - - - - - - - - - - - (End of report) JOE LEUNG MD [facility] Date Jul 10, 2024 - - - - - - - - - - - - - - - - - - - - - - - - - - - - - - - - - - - - - - - - ERIK GALLEGO STANDARD FORM 515 ID:[id number] SEX:M :[id number] AGE: 78 LOC:PATH PCP: Laura Mckeon MD /peyton/ JOE LEUNG pathologist Signed: 07/10/2024 09:41 JOE LEUNG [facility] Encounter Notes: All associated encounter notes This section contains the clinical notes associated to the Encounter. Date/Time Encounter Note(s) Provider Source Jul 22, 2024 12:28 PM PHARMACY MEDICATIO N MGT NOTE: LOCAL TITLE: CONTROLLED SUBSTANCE RENEWAL REQUEST STANDARD TITLE: PHARMACY MEDICATION MGT NOTE DATE OF NOTE: JUL 22, 2024@12:28 ENTRY DATE: JUL 22, 2024@12:28:52 AUTHOR: JEANMARIE INIGUEZ EXP COSIGNER: URGENCY: STATUS: COMPLETED Rx requested - GABAPENTIN 300MG CAP Last fill date - 04.21.24 Progress Note Date Title Author (and Author's Title) JUN 20, 2024@09:29 PC PROGRESS NOTE LAURA MCKEON (PRIMARY CARE [facility] No Data Found for the Selected Note Titles No data available for: NALOXONE NALOXONE AUTOINJECTOR IM RESCUE NALOXONE NASAL RESCUE 4MG NALOXONE NASAL RESCUE 8MG NALOXONE NASAL RESCUE Mail ID signer [facility] alert sent to LAURA MCKEON, Primary Care Provider Comments: DRUG SCREEN: ONLY Drug Screens within the prior 12 months will be listed Drug Screen: Collection DT Specimen Test Name Result Units Ref Range 02/14/2024 10:41 URINE !! THC SCR NEG Ref: Cutoff < 50 02/14/2024 10:41 URINE !! AMPHETAMINE SCR NEG Ref: Cutoff < 1000 02/14/2024 10:41 URINE !! BARBITURATES SCR NEG Ref: Cutoff < 200 02/14/2024 10:41 URINE !! BENZODIAZEPINES S NEG Ref: Cutoff < 200 02/14/2024 10:41 URINE !! COCAINu NEG Ref: Cutoff < 300 02/14/2024 10:41 URINE !! OPIATES SCR NEG Ref: Cutoff < 300 02/14/2024 10:41 URINE !! METHADONE SCR NEG Ref: Cutoff < 300 02/14/2024 10:41 URINE !! OXYCODONE SCR NEG Ref: Cutoff < 200 !! Indicates COMMENTS AVAILABLE...Refer to Interim Lab Report. /peyton/ Jeanmarie Iniguez CPhT Pharmacy Pinion Sorter Signed: 07/22/2024 12:29 Receipt Acknowledged By: 07/22/2024 12:34 /peyton/ Laura Mckeon MD Primary Care Physician JEANMARIE INIGUEZ-LOWELL [facility]
== END ==
LOC: SL 14:26
PROVIDERS: PCP Emergency Medicine; Visit Provider Internal Medicine Pulmonary Disease
DX: R06.02 Shortness of breath (principal); I27.20 Pulmonary hypertension, unspecified; R06.09 Other forms of dyspnea
CPT/HCPCS: 94762

== ENCOUNTER 2024-09-09 09:26 | Outpatient (CLI) | payer MEDICARE, SELFPAY ==
[2024-09-09 10:20] VITALS: PULSE 63; PULSE 67
[2024-09-09] MEDS: ALBUTEROL 0.083% 2.5 MG/3 ML NEB IH (10:20)
== END 2024-09-09 23:59 | disposition home or self-care (01) ==
LOC: RT 09:27
PROVIDERS: PCP Internal Medicine; Visit Provider Internal Medicine Pulmonary Disease
DX: J44.9 Chronic obstructive pulmonary disease, unspecified (principal); R94.2 Abnormal results of pulmonary function studies
CPT/HCPCS: 94060; 94618; 94640; 94726; 94729

== ENCOUNTER 2024-09-15 06:41 | Outpatient (CLI) | payer MEDICARE, SELFPAY ==
--- NOTE | 2024-09-15 07:00 | CT_ITS ---
FINAL REPORT TECHNIQUE: Thin section axial images were obtained from the lung apices through the upper abdomen without contrast. This study was performed with techniques to keep radiation doses as low as reasonably achievable (ALARA). Individualized dose reduction techniques using automated exposure control or adjustment of mA and/or kV according to the patient's size were employed. CLINICAL HISTORY: Lymphadenopathy/lung nodule follow-up COMPARISON: 05/29/2024 FINDINGS: No axillary lymphadenopathy.. They appear abnormal in number more than size. No hilar lymphadenopathy. A subcarinal lymph node measuring 25 mm previously measured 30 mm.. No pleural or pericardial effusion. There has been interval improvement in the previously seen bilateral lower lobe predominant groundglass opacities. Spiculated nodule in the medial aspect of the right lower lobe measuring 14 mm was 14 mm. Neoplasm not excluded. There is evidence of prior granulomatous disease. Limited, unenhanced evaluation of the upper abdomen is without acute abnormality. There is no acute osseous abnormality. IMPRESSION: Stable spiculated 14 mm medial right lower lobe pulmonary nodule. Malignancy not excluded. Recommend PET/CT or close continued follow-up. Improved groundglass opacities could represent improved pneumonia or edema. Reviewed, Interpreted and Dictated by Oralia Elena MD Transcribed by Vianney Chapin Authenticated and [facility]
== END 2024-09-15 23:59 | disposition home or self-care (01) ==
LOC: RAD 06:42
PROVIDERS: PCP Internal Medicine; Visit Provider Internal Medicine Pulmonary Disease
DX: R91.1 Solitary pulmonary nodule (principal); R59.1 Generalized enlarged lymph nodes; R91.8 Other nonspecific abnormal finding of lung field
CPT/HCPCS: 71250

== ENCOUNTER 2024-09-23 14:03 | Outpatient (CLI) | payer MEDICARE, SELFPAY ==
[2024-09-23 14:25] LABS: Anti-Centromere B Antibodies ND; Anti-DNA (DS) Ab Qn ND; Anti-Jo-1 ND; Antichromatin Antibodies ND; Antiscleroderma-70 Antibodies ND; RNP Antibodies ND; Sjogren's Anti-SS-A ND; Sjogren's Anti-SS-B ND
[2024-09-23 15:10] LABS: Basophils % 0.4 % (0.1-2.0); Eosinophils # 0.1 Kmm3 (0.0-0.4); Eosinophils % 1.8 % (0.1-12.0); Hematocrit 42.7 % (42.0-52.0); Immature Granulocytes # 0.02 10^3uL; Immature Granulocytes % 0.4 %; Lymphocytes # 1.1 K/mm3 (0.7-4.5); Lymphocytes % 20.9 % (10-50); Mean Corpuscular HGB Conc 32.8 g/dL (31.8-35.4); Mean Corpuscular Hemoglobin 30.5 pg (27.0-31.2); Monocytes # 0.3 K/mm3 (0.1-1.0); Monocytes % 6.6 % (1.7-9.3); Neutrophils # 3.6 K/mm3 (1.8-7.8); Neutrophils % 69.9 % (37.0-80.0); Nucleated Red Blood Cells # 0 10^3/uL; Nucleated Red Blood Cells % 0 %; Platelet Count 216 K/mm3 (142-424); Red Blood Count 4.59 M/mm3 (4.60-6.20); Red Cell Distribution Width 15.8 % (11.5-17.5); Red Cell Distribution Width-SD 53.6 fL; White Blood Count 5.1 K/mm3 (4.8-10.8)
[2024-09-23 15:42] LABS: Alanine Aminotransferase 30 U/L (12-78); Albumin Level 3.6 g/dl (3.5-5.0); Alkaline Phosphatase 86 U/L (38-126); Anion Gap 4.1 mEq/L (5-15); Aspartate Amino Transferase 40 U/L (17-59); Bilirubin,Direct 0.2 mg/dl (0.0-0.4); Bilirubin,Indirect 0.9 mg/dL (0.0-0.9); Bilirubin,Total 1.1 mg/dl (0.2-1.3); Blood Urea Nitrogen 16 mg/dl (9-20); Carbon Dioxide 34 mmol/L (22.0-30.0); Chloride 102 mmol/L (98-107); Chol/HDL Ratio 2.1 (1-3.5); Cholesterol 94 mg/dl (140-200); Estimated Glomerular Filt Rate 65 ml/min (>60); GFR (African American) 78 ML/MIN (>60); Glucose 153 mg/dl (74-100); HDL Cholesterol 45 mg/dl (40-60); Potassium 4.1 mmoL/L (3.5-5.1); Sodium 136 mmol/L (136-145); Total Protein,Serum 5.6 g/dl (6.3-8.2); Triglycerides 88 mg/dl (30-150); VLDL Cholesterol 18 mg/dL (0-40)
[2024-09-23 15:45] LABS: C-Reactive Protein 1.9 mg/L (0-4)
[2024-09-23 15:57] LABS: Free T4 (Free Thyroxine) 0.98 ng/dl (0.78-2.19)
[2024-09-23 15:58] LABS: Direct LDL Cholesterol < 30.00 mg/dL (100-129)
[2024-09-23 16:14] LABS: Thyroid Stimulating Hormone 1.25 uIU/mL (0.465-4.68)
[2024-09-24 14:14] LABS: Antinuclear Antibodies (ANA) Negative (Negative)
[2024-09-27 17:18] LABS: Aspergillus flavus Negative (Neg:<1:1); Aspergillus fumigatus Negative (Neg:<1:1); Aspergillus niger Negative (Neg:<1:1); Blastomyces Antibody Negative (Neg:<1:1); Histoplasma Antibody Quant Negative (Neg:<1:1)
== END 2024-09-23 23:59 | disposition home or self-care (01) ==
LOC: LAB 14:04
PROVIDERS: Internal Medicine; PCP Internal Medicine; Visit Provider Internal Medicine Pulmonary Disease
DX: J84.10 Pulmonary fibrosis, unspecified (principal); R91.1 Solitary pulmonary nodule; J84.9 Interstitial pulmonary disease, unspecified; R06.09 Other forms of dyspnea; I25.10 Atherosclerotic heart disease of native coronary artery without angina pectoris; I10 Essential (primary) hypertension; R53.83 Other fatigue; I27.20 Pulmonary hypertension, unspecified
CPT/HCPCS: 36415; 80048; 80061; 80076; 84439; 84443; 85025; 86038; 86140; 86606; 86612; 86698; 94762

== ENCOUNTER 2024-10-21 06:18 | Outpatient (CLI) | payer MEDICARE, SELFPAY ==
--- NOTE | 2024-10-21 | CA_ITS ---
APPROVED REPORT Exam: Pharmacologic Technologist: Fide Mcadams Ht: 5 ft 10 in Wt: 203 lbs BSA: 2.10 m2 HR: 66 bpm BP: 122/67 mmHg Stress Test Details Test: Lexiscan HR Resting HR: 66 bpm Max Heart Rate (APMHR): 141.811797 bpm Max HR Achieved: 83 bpm Target HR (85% APMHR): 119.461068 bpm % of APMHR: 58.87 Recovery HR: 74 bpm BP Resting BP: 122.0/67.0 mmHg Max BP: 131.0/59.0 mmHg Recovery BP: 130.0/63.0 mmHg ECG Resting ECG: Sinus rhythm, right bundle branch block Stress ECG Conclusion Symptoms: Dyspnea, stomach cramps Arrhythmias/Ectopy: PVC ST-T Changes: Less than [address] depression Conclusion: EKG unremarkable due to Lexiscan infusion. Electronically signed by : Nany Leo MD 10/21/2024 23:25:29
--- OUTSIDE RECORDS SUMMARY | 2024-10-21 06:22 | XMS_ITS | Data Portability ---
Author Organization [facility] ADMIN Address [address] [place] [id number] Care Team Providers Care Rf Test Technician Name Role Phone KANU LI Primary Care Provider [phone] Assessment No assessment recorded. Plan of Treatment Reminders Order Date Submit Date Provider Last Modified By Organization Details Last Modified Time Details Appointments None recorded. Lab PSA, serum or plasma 2024 [facility] (Laboratory), [address] [place], [address], 14:12:33 HbA1c (hemoglobin A1c), blood 2024 025 [facility] (Laboratory), [address] [place], [address], 5 14:20:24 CMP, serum or plasma 2024 025 [facility] (Laboratory), [address] [place], [address], 5 14:13:39 TSH, serum or plasma 2024 025 [facility] (Laboratory), [address] [place], [address], 5 14:12:35 CBC w/ auto diff 2024 025 [facility] (Laboratory), [address] [place], [address], 5 13:27:58 lipid panel, serum 2024 025 [facility] (Laboratory), [address] [place], [address], 14:13:40 Referral None recorded. Procedures None recorded. Surgeries None recorded. Imaging None recorded. Medication Orders triamcinolo ne acetonide 0.1 % topical ointment 2023 024 [facility], [address] [place], [id number], 16:30:59 Patient TargetsNo targets recorded. Patient InstructionsNo instructions recorded. Reason for Referral None Reported. Results Created Date Observation Date Name Description Value Unit Range Abnormal Flag Note LastModifiedBy Organization Detail LastModifiedTime 06/17/1906/16/2024 CBC AUTO W DIFF WBC 6.6 10 4.5-11 .5 Not Available [facility] (Lab Registration) [address] [place], [address], 06/16/2024 13:27:58 06/17/19 25 06/16/2024 CBC AUTO W DIFF RBC 4.90 10 4.25-5 .57 Not Available [facility] (Lab Registration) [address] [place], [address], 06/16/2024 13:27:58 06/17/19 25 06/16/2024 CBC AUTO W DIFF HGB 14.8 g/dL 13.5-1 7.2 Not Available [facility] (Lab Registration) [address] [place], [address], 06/16/2024 13:27:58 06/17/19 25 06/16/2024 CBC AUTO W DIFF HCT 44.1 % 42.0-5 2.0 Not Available [facility] (Lab Registration) [address] [place], [address], 06/16/2024 13:27:58 06/17/19 25 06/16/2024 CBC AUTO W DIFF MCV 90.0 fL 80-95 Not Available [facility] (Lab Registration) [address] [place], [address], 06/16/2024 13:27:58 06/17/19 25 06/16/2024 CBC AUTO W DIFF MCH 30.2 pg 27.0-3 4.0 Not Available [facility] (Lab Registration) [address] [place], [address], 06/16/2024 13:27:58 06/17/19 25 06/16/2024 CBC AUTO W DIFF MCHC 33.6 g/dL 32.0-3 6.0 Not Available [facility] (Lab Registration) [address] [place], [address], 06/16/2024 13:27:58 06/17/19 25 06/16/2024 CBC AUTO W DIFF platelet count 226 10 150-45 0 Not Available [facility] (Lab Registration) [address] [place], [address], 06/16/2024 13:27:58 06/17/19 25 06/16/2024 CBC AUTO W DIFF RDW 14.9 % 12.3-1 5.1 Not Available [facility] (Lab Registration) [address] [place], [address], 06/16/2024 13:27:58 06/17/19 25 06/16/2024 CBC AUTO W DIFF MPV 11.5 fL 7.4-10 .4 high Not Available [facility] (Lab Registration) [address] [place], [address], 06/16/2024 13:27:58 06/17/19 25 06/16/2024 CBC AUTO W DIFF granulocyte% 64.1 % 40-75 Not Available [facility] (Lab Registration) [address] [place], [address], 06/16/2024 13:27:58 06/17/19 25 06/16/2024 CBC AUTO W DIFF lymphocyte% 25.0 % 15-57 Not Available [facility] (Lab Registration) [address] [place], [address], 06/16/2024 13:27:58 06/17/19 25 06/16/2024 CBC AUTO W DIFF monocyte% 8.1 % 4.0-12 .0 Not Available [facility] (Lab Registration) [address], [place], [address], 06/16/2024 13:27:58 06/17/19 25 06/16/2024 CBC AUTO W DIFF eosinophil% 2.3 % 0.0-4. 0 Not Available [facility] (Lab Registration) [address] [place], [address], 06/16/2024 13:27:58 06/17/19 25 06/16/2024 CBC AUTO W DIFF basophil% 0.3 % 0.0-1. 0 Not Available [facility] (Lab Registration) [address] [place], [address], 06/16/2024 13:27:58 06/17/19 25 06/16/2024 CBC AUTO W DIFF immature granulocytes % 0.2 % 0.0-0. 8 Not Available [facility] (Lab Registration) [address] [place], [address], 06/16/2024 13:27:58 06/17/19 25 06/16/2024 CBC AUTO W DIFF granulocyte# 4.25 10 Not Available [facility] (Lab Registration) [address] [place], [address], 06/16/2024 13:27:58 06/17/19 25 06/16/2024 CBC AUTO W DIFF lymphocyte# 1.66 10 Not Available [facility] (Lab Registration) [address] [place], [address], 06/16/2024 13:27:58 06/17/19 25 06/16/2024 CBC AUTO W DIFF monocyte# 0.54 10 Not Available [facility] (Lab Registration) [address] [place], [address], 06/16/2024 13:27:58 06/17/19 25 06/16/2024 CBC AUTO W DIFF eosinophil# 0.15 10 Not Available [facility] (Lab Registration) [address] [place], [address], 06/16/2024 13:27:58 06/17/19 25 06/16/2024 CBC AUTO W DIFF basophil# 0.02 10 Not Available [facility] (Lab Registration) [address] [place], [address], 06/16/2024 13:27:58 06/17/19 25 06/16/2024 CBC AUTO W DIFF immature granulocytes # 0.01 10 Not Available [facility] (Lab Registration) [address] [place], [address], 06/16/2024 13:27:58 06/17/19 25 06/16/2024 CBC AUTO W DIFF manual differential NO Not Available [facility] (Lab Registration) [address] [place], [address], 06/16/2024 13:27:58 06/17/19 25 06/16/2024 CBC AUTO W DIFF note Unles s other dunlap noted testi ng perfo rmed at: [facility] [address] [place] [address] [phone] Max li MD CLIA: [id number] Not Available [facility] (Lab Registration) [address] [place], [address], 06/16/2024 13:27:58 06/17/19 25 06/16/2024 PROST ATE SPECI FIC AG (PSA) prostate specific Ag (PSA) 1.63 NG/mL 0.0-4. 0 Not Available [facility] (Lab Registration) [address] [place], [address], 06/16/2024 14:12:33 06/17/19 25 06/16/2024 PROST ATE SPECI FIC AG (PSA) note Unles s other dunlap noted testi ng perfo rmed at: [facility] [address] [place] [address] [phone] Max li MD CLIA: [id number] Not Available [facility] (Lab Registration) [address], [place], [address], 06/16/2024 14:12:33 06/17/19 25 06/16/2024 THYRO ID STIMU LATIN G HORMO NE thyroid stimulating hormone 1.51 mIU/m L 0.34-4 .80 Not Available [facility] (Lab Registration) [address] [place], [address], 06/16/2024 14:12:34 06/17/19 25 06/16/2024 THYRO ID STIMU LATIN G HORMO NE note Unles s other dunlap noted testi ng perfo rmed at: [facility] [address] [place] [phone] Max li MD CLIA: [id number] Not Available [facility] (Lab Registration) [address] [place], [address], 06/16/2024 14:12:34 06/17/19 25 06/16/2024 COMP METAB OLIC PANEL sodium 139 mmol/ L 136-14 5 Not Available [facility] (Lab Registration) [address] [place], [address], 06/16/2024 14:13:39 06/17/19 25 06/16/2024 COMP METAB OLIC PANEL potassium 3.9 mmol/ L 3.5-5. 1 Not Available [facility] (Lab Registration) [address] [place], [address], 06/16/2024 14:13:39 06/17/19 25 06/16/2024 COMP METAB OLIC PANEL chloride 101 mmol/ L 98-107 Not Available [facility] (Lab Registration) [address] [place], [address], 06/16/2024 14:13:39 06/17/19 25 06/16/2024 COMP METAB OLIC PANEL carbon dioxide 27 mmol/ L 21-32 Not Available [facility] (Lab Registration) [address] [place], [address], 06/16/2024 14:13:39 06/17/19 25 06/16/2024 COMP METAB OLIC PANEL anion gap 11.0 Not Available [facility] (Lab Registration) [address] [place], [address], 06/16/2024 14:13:39 06/17/19 25 06/16/2024 COMP METAB OLIC PANEL glucose 128 mg/dL 70-110 high Not Available [facility] (Lab Registration) [address] [place], [address], 06/16/2024 14:13:39 06/17/19 25 06/16/2024 COMP METAB OLIC PANEL blood urea nitrogen 21 mg/dL 7-18 high Not Available [facility] (Lab Registration) [address] [place], [address], 06/16/2024 14:13:39 06/17/19 25 06/16/2024 COMP METAB OLIC PANEL creatinine 1.6 mg/dL 0.8-1. 3 high Not Available [facility] (Lab Registration) [address] [place], [address], 06/16/2024 14:13:39 06/17/19 25 06/16/2024 COMP METAB OLIC PANEL BUN/creatini ne ratio 13.1 9-21 Not Available [facility] (Lab Registration) [address] [place], [address], 06/16/2024 14:13:39 06/17/19 25 06/16/2024 COMP METAB [...] alcantara ing kiney funct ion. Not Available [facility] (Lab Registration) [address], [place], [address], 06/16/2024 14:13:39 06/17/19 25 06/16/2024 COMP METAB OLIC PANEL total protein 6.4 g/dL 6.4-8. 2 Not Available [facility] (Lab Registration) [address], [place], [address], 06/16/2024 14:13:39 06/17/19 25 06/16/2024 COMP METAB OLIC PANEL albumin 3.7 g/dL 3.4-5. 0 Not Available [facility] (Lab Registration) [address], [place], [address], 06/16/2024 14:13:39 06/17/19 25 06/16/2024 COMP METAB OLIC PANEL calcium 9.3 mg/dL 8.5-10 .1 Not Available [facility] (Lab Registration) [address] [place], [address], 06/16/2024 14:13:39 06/17/19 25 06/16/2024 COMP METAB OLIC PANEL corrected calcium 9.5 mg/dL 8.5-10 .1 Not Available [facility] (Lab Registration) [address] [place], [address], 06/16/2024 14:13:39 06/17/19 25 06/16/2024 COMP METAB OLIC PANEL bilirubin total 1.5 mg/dL 0.4-1. 5 Not Available [facility] (Lab Registration) [address], [place], [address], 06/16/2024 14:13:39 06/17/19 25 06/16/2024 COMP METAB OLIC PANEL AST (SGOT) 21 U/L 15-37 Not Available [facility] (Lab Registration) [address] [place], [address], 06/16/2024 14:13:39 06/17/19 25 06/16/2024 COMP METAB OLIC PANEL ALT (SGPT) 25 U/L 12-78 Not Available [facility] (Lab Registration) [address] [place], [address], 06/16/2024 14:13:39 06/17/19 25 06/16/2024 COMP METAB OLIC PANEL alk phosphatase 96 U/L Not Available [facility] (Lab Registration) [address] [place], [address], 06/16/2024 14:13:39 06/17/19 25 06/16/2024 COMP METAB OLIC PANEL note Unles s other dunlap noted testi ng perfo rmed at: [facility] [address] [place] [address] [phone] Max li MD CLIA: [id number] Not Available [facility] (Lab Registration) [address] [place], [address], 06/16/2024 14:13:39 06/17/19 25 06/16/2024 LIPID PANEL triglyceride 122 mg/dL 20-200 [employer] (NCEP ) has set the follo wing guide lines for Fasti ng Trigl yceri killian: JONATHAN L: <150 mg/dL BORDE RLINE HIGH: 150 - 199 mg/dL HIGH: 200 - 499 mg/dL VERY HIGH: > or =500 mg/dL Not Available [facility] (Lab Registration) [address] [place], [address], 06/16/2024 14:13:40 06/17/19 25 06/16/2024 LIPID PANEL cholesterol 98 mg/dL 0-200 [employer] (COEP ) has set the follo wing guide lines for Fasti ng Christiane stero l: NICOLAS ABLE: <200 mg/dL BORDE RLINE HIGH: 200 - 239 mg/dL HIGH: > or =240 mg/dL Not Available [facility] (Lab Registration) [address] [place], [address], 06/16/2024 14:13:40 06/17/19 25 06/16/2024 LIPID PANEL HDL cholesterol 42 mg/dL 60- low [employer] (COEP ) has set the follo wing guide lines for Fasti ng HDL Christiane stero l: LOW HDL: <40 mg/dL JONATHAN L: 40 - 60 mg/dL NICOLAS ABLE: >60 mg/dL Not Available [facility] (Lab Registration) [address] [place], [address], 06/16/2024 14:13:40 06/17/19 25 06/16/2024 LIPID PANEL LDL calculated 32 mg/dL 100- low [employer] (COEP ) has set the follo wing guide lines for Fasti ng LDL Christiane stero l: OPTIM AL: < 100 mg/dL LOW RISK: 100 - 129 mg/dL BORDE RLINE HIGH: 130 - 159 mg/dL HIGH: 160 - 189 mg/dL VERY HIGH: > or = 190 mg/dL Not Available [facility] (Lab Registration) [address] [place], [address], 06/16/2024 14:13:40 06/17/19 25 06/16/2024 LIPID PANEL chol/HDL ratio 2 -5 Not Available [facility] (Lab Registration) [address] [place], [address], 06/16/2024 14:13:40 06/17/19 25 06/16/2024 LIPID PANEL note Unles s other dunlap noted testi ng perfo rmed at: [facility] [address] [place] [address] [phone] Max li MD CLIA: [id number] Not Available [facility] (Lab Registration) [address], [place], [address], 06/16/2024 14:13:40 06/17/19 25 06/16/2024 HEMOG LOBIN A1C glycosylated hemoglobin A1C 6.1 % 4.5-6. 2 Not Available [facility] (Lab Registration) [address], [place], [address], 06/16/2024 14:20:24 06/17/19 25 06/16/2024 HEMOG LOBIN A1C estimated average glucose 128 mg/dL 82-131 Not Available [facility] (Lab Registration) [address] [place], [address], 06/16/2024 14:20:24 06/17/19 25 06/16/2024 HEMOG LOBIN A1C note Logan li other dunlap noted testi ng perfo rmed at: [facility] [address] [place] [address] [phone] Max li MD CLIA: [id number] Not Available [facility] (Lab Registration) [address] [place], [address], 06/16/2024 14:20:24 11/28/19 24 11/01/2023 CT, brain , w/o contr ast No observ ation record ed. BARCODE Not Available 2023 13:06:20 11/28/19 24 11/01/2023 CT, face, w/o contr ast No observ ation record ed. [email or web address] Not Available 08/ 13:12:47 Result Notes None recorded. Problems Name Problem SNOMED Code Status Onset Date Resolution Date Notes Provider Name and Address Organization Details Recorded Time Essential hypertension 92626558 Active 2024 Brooke Corral null, [place] - [facility] - [place] & [place] 5 10:33:46 Type 2 diabetes mellitus 34847593 Active 2024 Brooke Elmorei null, [place] [facility] [place] 5 10:33:52 Neuropathy 378416371 Active 2024 Brooke Elmore[place] null, [place] [facility] [place] 5 10:34:08 Heart disease 02135709 Active 2024 Brooke Elmore[place] null, [place] [facility] [place] 5 10:34:56 Hyperlipidemia 81446832 Active 2024 Brooke El[place] null, [place] [facility] [place] 5 10:35:05 Gastroesophage al reflux disease 139855213 Active 2024 Brookeelza Elmorei null, [place] - [facility] [place] 10:38:23 Problem Notes None recorded. Procedures Surgical History Date Name Laterality Status Provider Name and Address Organization Details Recorded Time 04/16/19 25 Cardiovascular Surgery completed Brookeelza Elmorei [place] [facility] [place] 06/16/2024 10:30:47 Other completed Brookeelza Colesdini [place] - [facility] [place] & [place] 06/16/2024 10:30:47 Cataract Surgery completed Brooke Pardini [place] - [facility] [place] 06/16/2024 10:36:15 extracorporeal shockwave lithotripsy of calculus of kidney completed Brookelaura Elmorei [place] - [facility] [place] 06/16/2024 10:36:32 dilation of esophageal stricture completed Brooke Pardini [place] - [facility] [place] & [place] 06/16/2024 10:36:50 Imaging Results None recorded. Procedure Notes None recorded. Medical Equipment None Reported. Allergies Allergen ID Allergen Name Allergen Category Reaction Reaction Severity Criticality Documentation Date Start Date Code Code System Note Provider Name and Address Organization Details Recorded Time 989657 fosinopri l medicatio n cough Not available [facility] 11/28/2023 61175 RxNorm SO Gonzalez [facility] & [place] 4 13:08:40 783342 lisinopri l medicatio n cough Not available [facility] 11/28/2023 23569 RxNorm SO Gonzalez [facility] & [place] 4 13:08:52 378324 acetamino phen / oxycodone medicatio n vomiting Not available [facility] 11/28/2023 43366 3 RxNorm SO Gonzalez [facility] & [place] 4 13:09:05 Medications Name Sig Start Date [...] Pulse oximetry Heart rate Respiratory rate Systolic And Diastolic Provider Name and Address Organization Details Last Updated DateTime 177.8 cm 31 kg/m2 24595.9 5 g 97 [degF] 97 % 97 % 86 /min 14 /min 149/86 mm[Hg] Brooke RIZZO [facility] & [place] 10:30:19 Date Recorded Body weight Body mass index (BMI) Body height Body temperature Provider Name and Address Organization Details Last Updated DateTime 11/28/2023 53921.77 g 30.7 kg/m2 177.8 cm 97.8 [degF] B[facility]aylene [facility] & [place] 11/28/2023 13:08:23 Date Recorded Body height Body mass index (BMI) Body weight Body temperature Provider Name and Address Organization Details Last Updated DateTime 12/26/2023 177.8 cm 30.6 kg/m2 57061.17 g 97.3 [degF] Brenda [facility] & [place] 12/26/2023 10:17:15 Social History Question Answer Notes LastModified by Organizat ion Details LastModified Time Tobacco Smoking Status Never Smoker Brooke Corral [facility] & [place] 06/16/2024 10:30:47 Do You Have An Advance Directive? No Information n ot available 06/16/2024 Are You Blind Or Do [...] Do You Have A Medical Power Of Hamper Maker Machine? No Information not available 06/16/2024 What Was [...] Information no t available 06/16/2024 Do You Use Sunscreen Routinely? Yes Information not available 06/16/2024 Has Tobacco Cessation Counseling Been Provided? No Information not available 06/16/2024 Do You Have Difficulty Walking Or Climbing Stairs? No Information not available 06/16/2024 Are You Currently In School? No Information not available 06/16/2024 Sex: Unknown Functional Status Question Answer Note LastModified by Organizat ion Details LastModified Time Do you use any illicit or recreational drugs? No Information not available 06/16/2024 Do you or have you ever used any other forms of tobacco or nicotine? No Information not available 06/16/2024 What is your level of alcohol consumption? None Information not available 06/16/2024 Are you currently employed? No Information not available 06/16/2024 Do you [...] Mental Status Question Answer Note LastModified by Organizat ion Details LastModified Time Do you feel stressed (tense, restless, nervous, or anxious, or unable to sleep at night)? FD9883-8 Information not available 06/16/2024 Do you have difficulty concentrating, remembering or making decisions? No Information no t available 06/16/2024 Family History Nothing Reported. Medical History Condition Response Allergies/Hayfever N Heart Problems N Other Y None N Heart Conditions N Ear or Hearing Problems Y Emphysema N Migraines N Thyroid Problems N GI Problems Y Developmental Delay N Glaucoma N Depression N Anemia N Immune System Disorder N [...] SNOMED-CT Code Diagnosis ICD10 Code Diagnosis Note [id number] Torri Grossman MD [facility] [address] [phone] 11/28/2023 12:45:02 11/28/2023 13:42:06 Eczema of external auditory canal 37090071 H60.549 Went over the patient's imaging results [...] back in three weeks; sooner if needed. [id number] Torri Grossman MD [facility] [place] [phone] 12/26/2023 10:12:41 12/26/2023 10:41:36 Eczema of external auditory canal 76420590 H60.549 Patient's eczema has almost resolved. Explained he can use the triamcinol one when he has a flare. I will see him back as needed. [facility]. [id number] Kanu Li MD [facility] [address] [place] [address] 06/16/2024 10:20:52 06/16/2024 10:43:40 Type 2 diabetes mellitus 33229035 E11.9 Patient is currently on metformin as well as Actos will obtain lab work today. Neuropathy 802243146 G62 .9 Patient takes gabapentin . Hyperlipidemia 30938304 E78.5 Will check patient's cholestero l profile today Heart disease 11117807 I 51.9 patient to continue to follow-up with cardiology . Essential hypertension 03012173 I10 Patient controls his blood pressure with metoprolol . Screening for malignant neoplasm of prostate 158811661 Z12.5 Health Concerns Section Related Observation LastModified by Organization Detai ls LastModified Time None Recorded Concern Status LastModified by Organization Details LastModified Time None Recorded Advance Directives Directive N: Payers Insurance Date Sequence Insurance Name Policy Number Policy Hopson Covered Member ID Hopson Member ID Guarantor Name 06/16/2024 1 [employer] (MEDICARE REPLACEMENT/ ADVANTAGE - HMO) Adelso Mishra [id number] Adelso Mishra 06/18/2024 [employer] - [facility] [id number] Adelso Mishra [id number] Adelso Mishra Notes Date Note Type Note Provider Name and Address Organization Details Recorded Time 11/28/2023 text/html 11/28/23-Patient is here for left ear draining with blood. [facility] [place] [facility] [place] [facility] several times for ear pain in the left ear. Patient states it Started October 22, he was given Augmentin and Ciprofloxacin drops. Has had imaging done at [facility] Ed as well. On 11/01, he was [...] not been wearing them. Torri Grossman MD [address], [place], [address], [facility] - [facility] 11/29/2023 15:22:41 12/26/2023 text/html 11/28/23-Patient is here for left ear draining with blood. [facility] [place] [facility] ED several times for ear pain in the left ear. Patient states it Started October 22, he was given Augmentin and Ciprofloxacin drops. Has had imaging done at [facility] Ed as well. On 11/01, he was [...] is doing better. Torri Grossman MD [address], [place], [address], [facility] & [place] 12/26/2023 11:29:13 06/16/2024 text/html Patient presents today to establish care. He has had a recent cardiac event. Had stents placed in his LAD by Dr. Dia kumar at [facility]. [facility]. He is seeking to establish care with a local physician practice. Kanu Li MD [address] [place] [address], [phone], [place] - [facility] [place] & [place] 06/16/2024 11:02:08
--- NOTE | 2024-10-21 06:30 | NM_ITS ---
APPROVED REPORT Exam: Nuclear Stress Test Indication: CAD, HTN, DM, Family history Patient Location: Outpatient Stress Tech: Fidesweta Mcadams [place] Tech:Ariellemartina Arnett, ARRT, RT (R)(N) Ht: 5 ft 9 in Wt: 191 lbs HR: 65 bpm BP: 122/67 mmHg BSA: 2.03 m2 TID: 1.03 BMI: 28.2 History: CAD, HTN, DM, Family history Procedure: Patient received 0.4 mg of intravenous Lexiscan, resting heart rate 65 bpm, resting blood pressure 122/67 mmHg, with Lexiscan maximum heart rate achieved was 85 bpm which is % of the maximum predicted heart rate and blood pressure was 131/59 mmHg. With Lexiscan, patient denied any complaint of chest pain. Cardiac Stress and Resting SPECT Images: Cardiac Stress and Resting SPECT images were obtained using technetium 99m Myoview 31.8 mCi stress and 10.92 mCi at rest. Resting and stress imaging in supine and prone positions demonstrate no evidence of fixed or reversible perfusion defects. Gated imaging demonstrates normal global and regional LV systolic function. LVEF is calculated at 60%. Conclusion: No evidence of fixed or reversible perfusion defects. Gated imaging demonstrates normal global and regional LV systolic function. LVEF is calculated at 60%. Electronically signed by : Nany Leo MD 10/21/2024 14:20:57
[2024-10-21] MEDS: ISOTOPE MYOVIEW (PER STUDY) 1 DOSE IV (08:35)
[2024-10-21] MEDS: SODIUM CHLORIDE 0.9% 10ML SYR (RAD ONLY) 10 ML IV ×2 (08:35)
--- NOTE | 2024-10-21 08:45 | CA_ITS ---
APPROVED REPORT EXAM: Comprehensive 2D, Doppler, and color-flow Echocardiogram Puller Over: Frida Tanner RT(R) Ht: 5 ft 10 in Wt: 191lbs BSA: 2.05 BP: 122/61 mmHg Indications: ordered as a limited to reassess LV function due to dyspnea. 2D Dimensions LVEF (Potter's) 65.80 % M: 52 - 72 LV Volume 95.30 mL M: 62 - 150 LV Volume Index 46.5 mL/m2 M: 34 - 74 EF AP4 68.20 % EF AP2 64.7 % EF BP 65.8 % GL Strain -21.4 % M-Mode Dimensions RVDd 2.64 cm (0.9-2.6) LVDd 5.59 cm (3.5-5.7) LVDs 4.07 cm (3.5-5.7) IVSd 0.89 cm (0.6-1.1) PWd 0.63 cm (0.6-1.1) EF (Teich) 52.40% FS 27.20% EDV (Teich) 153.00 mL ESV (Teich) 72.90 mL LV Diastology E Decel Time 187 (160-240 msec) E/A Ratio 0.8 Mitral Valve MV E Max Alirio. 77.0 (40-130 cm/s) MV A Velocity 94.0 (40-130 cm/s) E/A Ratio 0.82 MV PHT 55.0 ms Other Information Study Quality: Fair Conclusion This is a limited TTE to evaluate for LV systolic function. Limited windows were obtained. The left ventricle is normal in size. There is normal LV wall thickness. There is normal global LV systolic function. No regional wall motion abnormalities are present. LVEF is 60%. The right ventricle is normal in size and function. Electronically signed by : Nany Leo MD 10/21/2024 14:22:15
== END 2024-10-21 23:59 | disposition home or self-care (01) ==
LOC: RAD 06:19
PROVIDERS: PCP Internal Medicine; Visit Provider Physician Assistant
DX: I49.3 Ventricular premature depolarization (principal); I25.10 Atherosclerotic heart disease of native coronary artery without angina pectoris; I10 Essential (primary) hypertension; E11.9 Type 2 diabetes mellitus without complications; R94.31 Abnormal electrocardiogram [ECG] [EKG]
CPT/HCPCS: 78452; 93016; 93017; 93018; 93308; A9502; J2785